=== PATIENT | male | born 1960 | race Two or more races ===

== ENCOUNTER 2024-04-07 16:31 | Inpatient (IN) | payer OTHER ==
[~2024-04-07] VITALS: Ht 177.8 cm; Wt 79.1 kg
[~2024-04-07 16:31] MED LIST: APIX2.5T PO; ARIP5TAB22 PO
--- NOTE | 2024-04-07 17:49 | DVH ---
CHEST RADIOGRAPH Indication: SOB Technique: Single frontal view of the chest was obtained Comparison: None Findings/ IMPRESSION: Left-sided cardiac device with intact leads. Vascular graft projects over the region of the right sub clavian. Mild cardiomegaly. Elevated right hemidiaphragm with small right-sided pleural effusion. No pneumothorax.
[2024-04-07 17:52] LABS: Basophils # (auto) 0.1 10 ^3/uL (0-0.2); Basophils % (auto) 3.6 % (0.0-2.0); Eosinophils # (auto) 0.2 10 ^3/uL (0-0.8); Eosinophils % (auto) 9.9 % (0.0-7.0); Hematocrit 32.6 % (41.0-53.0); Hemoglobin 10.3 g/dL (13.5-17.5); Lymphocytes # (auto) 0.4 10 ^3/uL (0.4-5.4); Lymphocytes % (auto) 16.1 % (10.0-50.0); Mean Corpuscular Hemoglobin 30.5 pg (28.0-32.0); Mean Corpuscular Hgb Conc. 31.7 g/dL (32.0-36.0); Mean Corpuscular Volume 96.4 fL (80.0-100.0); Monocytes # (auto) 0.2 10 ^3/uL (0-1.3); Monocytes % (auto) 9.5 % (0.0-12.0); Neutrophils # (auto) 1.5 10 ^3/uL (1.6-8.6); Neutrophils % (auto) 60.9 % (37.0-80.0); Nucleated Red Blood Cells % 0.1 %; Platelet Count (auto) 82 10^3/uL (140-450); Red Blood Cells 3.38 10^6/uL (4.5-5.90); Red Cell Distribution Width 18.5 % (11.8-14.3); White Blood Cell 2.4 10^3/uL (4.4-10.8)
[2024-04-07 18:07] LABS: Albumin 3.9 g/dL (3.2-4.8); Alkaline Phosphatase 88 U/L (46-116); Anion Gap 10 (5-15); Aspartate Aminotransferase 13 U/L (13-40); BUN/Creatinine Ratio 5.3 (10.0-20.0); Bilirubin, Total 1.2 mg/dL (0.2-1.0); Blood Urea Nitrogen 31 mg/dL (9-23); Carbon Dioxide 26 mmol/L (20-31); Chloride 98 mmol/L (98-107); Glucose 109 mg/dL (74-106); Sodium 134 mmol/L (136-145); Total Protein 6.5 g/dL (5.7-8.2)
[2024-04-07 18:10] LABS: Alanine Aminotransferase < 9 U/L (7-40); INR 1.38 (0.9-1.15); Partial Thromboplastin Time 29.6 SEC (24.5-34.5); Prothrombin Time 14.3 sec (9.3-11.8)
[2024-04-07 18:15] LABS: Anisocytosis Slight; Platelet Estimate Decreased
--- NOTE | 2024-04-07 19:03 | ED.PDOC ---
History of Present Illness HPI Comments Old male brought in by EMS. Patient states he had episode of rectal bleeding today. States he has been having some intermittent constipation for the last three or four days. Says he had a hard bowel movement but then when he wiped he noticed blood. He put his underwear and pants back on and noticed that it would still leaking blood. Patient was on blood thinner. Patient states he has been feeling short of breath for over one week but over the last three or four days shortness a breath has also become worsening. Patient states he did not feel well today so he did not go to dialysis. Chief Complaint: GI Bleed Time Seen by MD: 17:06 Primary Care Provider: pt does not know Reviewed Notes: Nurses Notes Allergies: Coded Allergies: NO KNOWN ALLERGIES (Unverified , 04/07/24) Information Source: Patient Mode of Arrival: EMS Past Medical History PAST MEDICAL HISTORY: CAD, CHF, ESRD Surgical History: Denies all surgeries Constitutional: reports: fatigue, weakness; denies: chills, diaphoresis, fever, malaise, sweats, others EENTM: denies: blurred vision, double vision, ear bleeding, ear discharge, ear drainage, ear pain, ear ringing, eye pain, eye redness, hearing loss, mouth pain, mouth swelling, nasal discharge, nose bleeding, nose congestion, nose pain, photophobia, tearing, throat pain, throat swelling, voice changes, others Respiratory: denies: cough, hemoptysis, orthopnea, SOB at rest, shortness of breath, SOB with excertion, stridor, wheezing, others Cardiovascular: reports: dizzy spells; denies: chest pain, diaphoresis, Dyspnea on exertion, edema, irregular heart beat, left arm pain, lightheadedness, palpitations, PND, syncope, others Gastrointestinal: reports: rectal bleeding; denies: abdomen distended, abdominal pain, blood streaked bowels, constipated, diarrhea, dysphagia, difficulty swallowing, hematemesis, melena, nausea, poor appetite, poor fluid intake, rectal pain, vomiting, others Genitourinary: denies: burning, dysuria, flank pain, frequency, hematuria, incontinence, penile discharge, penile sore, pain, testicle pain, testicle swelling, urgency, others Neurological: denies: dizziness, fainting, headache, left sided numbness, left sided weakness, numbness, paresthesia, pre-existing deficit, right sided numbness, right sided weakness, seizure, speech problems, tingling, tremors, weakness, others Musculoskeletal: denies: back pain, gout, joint pain, joint swelling, muscle pain, muscle stiffness, neck pain, others Integumetry: denies: bruises, change in color, change in hair/nails, dryness, laceration, lesions, lumps, rash, wounds, others Physical Exam General Appearance: Mild Distress, Normal HEENT: Normal ENT Inspection, Pharynx Normal, TMs Normal Neck: Full Range of Motion, Non-Tender, Normal, Normal Inspection Respiratory: Chest Non-Tender, Lungs Clear, No Accessory Muscle Use, No Respiratory Distress, Normal Breath Sounds Cardiovascular: No Edema, No JVD, No Murmur, No Gallop, Normal Peripheral Pulses, Regular Rate/Rhythm Breast Exam: Deferred Gastrointestinal: No Organomegaly, Non Tender, No Pulsatile Mass, Normal Bowel Sounds, Soft Genitalia: Deferred Pelvic: Deferred Rectal: Blood streaked stool, Hemorrhoids Extremities: No calf tenderness, Normal capillary refill, Normal inspection, Normal range of motion, Non-tender, No pedal edema Musculoskeletal : Apperance: Normal Neurologic: Alert, multiple coil winder II-XII nml as Tested, No Motor Deficits, Normal Affect, Normal Mood, No Sensory Deficits Cerebellar Function: Normal Reflexes: Normal Skin: Dry, Normal Color, Warm Lymphatic: No Adenopathy Was a procedure done? Was a procedure done?: No Differential Dx Considerations may include: Anemia, electrolyte imbalance, CHF exacerbation, UT, pneumonia, pulmonary edema, X-Ray, Labs, Meds, VS Vital Signs Date Time Temp Pulse Resp B/P (MAP) Pulse Ox O2 Delivery O2 Flow Rate FiO2 04/07/24 17:10 99.1 100 16 148/90 (109) 100 Lab Test 04/07/24 17:26 Range/Units White Blood Count 2.4 L 4.4-10.8 10^3/uL Red Blood Count 3.38 L 4.5-5.90 10^6/uL Hemoglobin 10.3 L 13.5-17.5 g/dL Hematocrit 32.6 L 41.0-53.0 % Mean Corpuscular Volume 96.4 80.0-100.0 fL Mean Corpuscular Hemoglobin 30.5 28.0-32.0 pg Mean Corpuscular Hemoglobin Concent 31.7 L 32.0-36.0 g/dL Red Cell Distribution Width 18.5 H 11.8-14.3 % Platelet Count 82 L 140-450 10^3/uL Mean Platelet Volume 7.8 6.9-10.8 fL Neutrophils (%) (Auto) 60.9 37.0-80.0 % Lymphocytes (%) (Auto) 16.1 10.0-50.0 % Monocytes (%) (Auto) 9.5 0.0-12.0 % Eosinophils (%) (Auto) 9.9 H 0.0-7.0 % Basophils (%) (Auto) 3.6 H 0.0-2.0 % Neutrophils # (Auto) 1.5 L 1.6-8.6 10 ^3/uL Lymphocytes # (Auto) 0.4 0.4-5.4 10 ^3/uL Monocytes # (Auto) 0.2 0-1.3 10 ^3/uL Eosinophils # (Auto) 0.2 0-0.8 10 ^3/uL Basophils # (Auto) 0.1 0-0.2 10 ^3/uL Nucleated Red Blood Cells 0.1 % Platelet Estimate Decreased Anisocytosis (manual) Slight Prothrombin Time 14.3 H 9.3-11.8 sec Prothrombin Time INR 1.38 H 0.9-1.15 Activated Partial Thromboplast Time 29.6 24.5-34.5 SEC Sodium Level 134 L 136-145 mmol/L Potassium Level 4.0 3.5-5.1 mmol/L Chloride Level 98 98-107 mmol/L Carbon Dioxide Level 26 20-31 mmol/L Anion Gap 10 5-15 Blood Urea Nitrogen 31 H 9-23 mg/dL Creatinine 5.90 H 0.700-1.30 mg/dL Glomerular Filtration Rate Calc 10 >90 mL/min BUN/Creatinine Ratio 5.3 L 10.0-20.0 Serum Glucose 109 H 74-106 mg/dL Calcium Level 11.0 H 8.7-10.4 mg/dL Total Bilirubin 1.2 H 0.2-1.0 mg/dL Aspartate Amino Transferase (AST) 13 13-40 U/L Alanine Aminotransferase (ALT) < 9 7-40 U/L Alkaline Phosphatase 88 46-116 U/L B-Type Natriuretic Peptide 2286.59 0-100 pg/mL Total Protein 6.5 5.7-8.2 g/dL Albumin 3.9 3.2-4.8 g/dL X-Ray, Labs, Meds, VS Comment Patient will be admitted for CHF exacerbation Recommend dialysis Recommend cardiology consult Patient was elevated BNP Time of 1ST Reevaluation: 19:02 Reevaluation 1ST: Unchanged Patient Education/Counseling: Diagnosis, Treatment Family Education/Counseling: Diagnosis Departure 1 Departure Time of Disposition: 19:01 Impression: Primary Impression: CHF exacerbation Qualified Codes: I50.23 - Acute on chronic systolic (congestive) heart failure Additional Impressions: Constipation Qualified Codes: K59.01 - Slow transit constipation Anal fissure End stage renal disease Electrolyte imbalance Disposition: ADMITTED INPATIENT Condition: Stable Critical Care Note Critical Care Time?: No Stability Stability form required: No Heart Score Heart Score: Heart Score Response (Comments) Value History N/A 0 EKG N/A 0 Age N/A 0 Risk Factors N/A 0 Troponin N/A 0 Total 0 BONIFACIO HASTINGS Apr 07, 2024 19:03
[2024-04-07] MEDS ORDERED: MORPHINE SULFATE INJ 2 MG/ml SYRG IV PRN (22:15)
[2024-04-07] MEDS ORDERED: ALBUTEROL SULF 2.5 MG/0.5ML(0.5%) NEB SOLN NEB PRN (22:15)
[2024-04-07] MEDS ORDERED: NITROGLYCERIN 0.4 MG SL TAB SL PRN (22:15)
[2024-04-07] MEDS ORDERED: ONDANSETRON HCL 4 MG/2 ML VIAL IV PRN (22:15)
[2024-04-08] VITALS (10 sets, daily range): BP systolic 106–192; BP diastolic 70–101; PULSE 60–89; RESP 16–20; TEMP 97–98.1; O2SAT 93–100
[2024-04-08 06:07] LABS: Albumin 3.4 g/dL (3.2-4.8); Alkaline Phosphatase 77 U/L (46-116); Anion Gap 11 (5-15); Aspartate Aminotransferase 12 U/L (13-40); BUN/Creatinine Ratio 5.1 (10.0-20.0); Bilirubin, Total 1.1 mg/dL (0.2-1.0); Blood Urea Nitrogen 32 mg/dL (9-23); Calcium 10.7 mg/dL (8.7-10.4); Carbon Dioxide 26 mmol/L (20-31); Chloride 98 mmol/L (98-107); Glucose 87 mg/dL (74-106); Potassium 3.4 mmol/L (3.5-5.1); Sodium 135 mmol/L (136-145)
[2024-04-08 06:08] LABS: Total Protein 5.8 g/dL (5.7-8.2)
[2024-04-08 06:18] LABS: Basophils # (auto) 0.1 10 ^3/uL (0-0.2); Basophils % (auto) 4.3 % (0.0-2.0); Eosinophils # (auto) 0.3 10 ^3/uL (0-0.8); Eosinophils % (auto) 13.1 % (0.0-7.0); Hematocrit 29.5 % (41.0-53.0); Hemoglobin 9.7 g/dL (13.5-17.5); Lymphocytes # (auto) 0.3 10 ^3/uL (0.4-5.4); Lymphocytes % (auto) 16.9 % (10.0-50.0); Mean Corpuscular Hemoglobin 31.6 pg (28.0-32.0); Mean Corpuscular Hgb Conc. 32.9 g/dL (32.0-36.0); Mean Corpuscular Volume 96.2 fL (80.0-100.0); Monocytes # (auto) 0.2 10 ^3/uL (0-1.3); Monocytes % (auto) 11.4 % (0.0-12.0); Neutrophils # (auto) 1.1 10 ^3/uL (1.6-8.6); Neutrophils % (auto) 54.3 % (37.0-80.0); Nucleated Red Blood Cells % 0.4 %; Platelet Count (auto) 78 10^3/uL (140-450); Red Blood Cells 3.06 10^6/uL (4.5-5.90)
[2024-04-08 06:19] LABS: Alanine Aminotransferase < 9 U/L (7-40)
--- NOTE | 2024-04-08 06:20 | DVHHP2 ---
History of Present Illness Reason for Visit: Shortness for breath History of Present Illness 64-year-old male presents for evaluation of shortness for breath. Patient endorses generalized weakness and shortness for breath over the past three days. He was not able attend his dialysis session yesterday due to the weakness. He also reports constipation for three days. He reports noticing small amount of blood yesterday as after having bowel movement. Reports only syncopal episode. Denies chest pain or palpitations. No other acute complaints reported. Past Medical History End-stage renal disease, congestive heart failure, CAD, hypertension Past Surgical History Pacemaker Family History Noncontributory Smoke: No ALCOHOL: none Drugs: None Lives: with Family Review of Systems Review of Systems Review of systems are currently negative otherwise addressed HPI. Allergies: Coded Allergies: NO KNOWN ALLERGIES (Unverified , 04/07/24) Medications Current Medications Medications Dose Ordered Sig/Colleen Route Start Time Stop Time Status Last Admin Dose Admin Ondansetron HCl 4 mg Q4HP PRN IV 04/07/24 22:15 Acetaminophen 650 mg Q6HP PRN PO 04/07/24 22:15 Nitroglycerin 0.4 mg Q5MINP PRN SL 04/07/24 22:15 Morphine Sulfate 2 mg Q30M PRN IV 04/07/24 22:15 Metoprolol Tartrate 25 mg BID PO 04/08/24 10:00 Aspirin 162 mg DAILY PO 04/08/24 10:00 Atorvastatin Calcium 40 mg HS PO 04/08/24 22:00 Amiodarone HCl 200 mg DAILY PO 04/08/24 10:00 Sacubitril/ Valsartan 1 tab BID PO 04/08/24 10:00 Sevelamer HCl 800 mg TIDWM PO 04/08/24 08:00 Albuterol 2.5 mg Q6HPRN PRN NEB 04/07/24 22:15 Exam Vital Signs Vital Signs Date Time Temp Pulse Resp B/P (MAP) Pulse Ox O2 Delivery O2 Flow Rate FiO2 04/08/24 05:00 97.1 85 18 155/96 (115) 100 97.1 04/08/24 01:58 Nasal Cannula* 2 28 Exam Gen: 64-year-old in mild distress Skin: Warm, dry, normal color and texture, no rash. HEENT: Normocephalic atraumatic, mucous membranes moist and pink. Neck: Cervical and supraclavicular nodes normal without enlargement, trachea is midline, thyroid gland is normal without masses. Pulmonary: Clear to auscultation and percussion bilaterally. Cardiac: Regular rate and rhythm. No murmur Abdomen: Soft, nontender, nondistended, bowel sounds present all 4 quadrants, no guarding, no rigidity, no organomegaly. Extremities: No cyanosis, clubbing, no edema Neuro: Cranial nerves II through XII grossly intact, normal affect and speech, no focal motor deficits. Labs/Xrays ORDERING PHYSICIAN: BONIFACIO HASTINGS PROCEDURE(s): CXRP - CHEST PORTABLE REASON: SOB ORDER NUMBER(s): [id number], ACCESSION NUMBER(s): [id number] CHEST RADIOGRAPH Indication: SOB Technique: Single frontal view of the chest was obtained Comparison: None Findings/ IMPRESSION: Left-sided cardiac device with intact leads. Vascular graft projects over the region of the right subclavian. Mild cardiomegaly. Elevated right hemidiaphragm with small right-sided pleural effusion. No pneumothorax. Labs Test 04/08/24 05:17 04/07/24 21:32 04/07/24 17:26 Range/Units Troponin I High Sensitivity 68 *H </=54 ng/L Eosinophils (%) (Auto) 9.9 H 0.0-7.0 % Eosinophils # (Auto) 0.2 0-0.8 10 ^3/uL Basophils # (Auto) 0.1 0-0.2 10 ^3/uL Nucleated Red Blood Cells 0.1 % Platelet Estimate Decreased Anisocytosis (manual) Slight Prothrombin Time 14.3 H 9.3-11.8 sec Prothrombin Time INR 1.38 H 0.9-1.15 Activated Partial Thromboplast Time 29.6 24.5-34.5 SEC B-Type Natriuretic Peptide 2286.59 0-100 pg/mL Assessment/Plan Assessment/Plan Assessment End-stage renal disease dialysis dependent Congestive heart failure ? Fluid overload Anemia of chronic disease Secondary coagulopathy Anal fissure Plan Admit the patient to telemetry to the hospitalist Nephrology consultation Echocardiogram pending Resume home medications Continue treatment per orders. Plan discussed with: Patient My Orders Orders - FLORIAN,FELIPE AGACNP Procedure Category Date Status Time *[facility]. [facility] CONS 04/07/24 Transmitted -[place] 22:02 Admit ADMIT 04/07/24 Transmitted 22:02 Renal DIET 04/08/24 Transmitted Standard(2gna,3gk,Lopho) Breakfast Ondansetron Hcl PHA 04/07/24 In Process (Zofran) 22:15 Complete Blood Count LAB 04/08/24 In Process 04:00 Comprehensive LAB 04/08/24 In Process Metabolic Panel 04:00 Cardiac DIET 04/08/24 Transmitted Diet-2gna,Lofat,Lochol Breakfast Echo 2d Mode Cardiac US 04/07/24 Logged DOP 22:02 Condition: Fair LETICIA 04/07/24 In Process 22:02 Acetaminophen Tablet PHA 04/07/24 In Process (Tylenol Tablet) 22:15 Bedrest With Bathroom LETICIA 04/07/24 In Process Privileg 22:02 Nitroglycerin PHA 04/07/24 In Process Sublingual (Ntrostat 22:15 Morphine Sulfate PHA 04/07/24 In Process Injection 22:15 Stat Ekg For Chest LETICIA 04/07/24 In Process Pain 22:02 Notify Md Of Changes LETICIA 04/07/24 In Process From Base 22:02 Supervisor Transcribing Oper[employer] For [facility] 04/07/24 In Process 24 Hours 22:02 Emergency Dysrhythmia LETICIA 04/07/24 In Process Protocol 22:02 Rhythm Strips Once LETICIA 04/07/24 In Process Every Shift 22:02 Oxygen By Nasal RT 04/07/24 Transmitted Cannula 22:02 Metoprolol Tartrate PHA 04/08/24 In Process Tablet (Lopressor Ta 10:00 Aspirin Tablet PHA 04/08/24 In Process 10:00 Atorvastatin (Lipitor) PHA 04/08/24 In Process 22:00 Amiodarone Tablet PHA 04/08/24 In Process (Cordarone Tablet) 10:00 Sacubitril-Valsartan PHA 04/08/24 In Process (Entresto 24-26 Mg 10:00 Sevelamer (Renagel) PHA 04/08/24 In Process 08:00 Stool Occult Blood LAB 04/07/24 Logged 22:02 Albuterol Medneb PHA 04/07/24 In Process (Ventolin Medneb) 22:15 Furosemide Injection PHA 04/08/24 Logged (Lasix Injection) 06:15 Date of Service: Apr 07, 2024 Billing Provider: BELTRAN FLORIAN Common Visit Codes: [id number] INP/OBS CARE (HIGH) BELTRAN FLORIAN Apr 08, 2024 06:20
[2024-04-08] MEDS: FUROSEMIDE 100 MG/10ML VIAL IV ONE (06:28)
[2024-04-08] MEDS: SACUBITRIL-VALSARTAN 24mg/26mg TAB PO SCH (08:58)
[2024-04-08] MEDS: METOPROLOL TARTRATE 25 MG TAB PO SCH (08:59)
[2024-04-08] MEDS: AMIODARONE HCL 200 MG TAB PO SCH (09:00)
[2024-04-08] MEDS: ASPirin 81 mg TAB PO SCH (09:00)
[2024-04-08] MEDS: SEVELAMER 800 MG TAB PO SCH (09:01)
[2024-04-08] MEDS: DOCUSATE SOD 100 MG CAP PO SCH (09:06)
--- NOTE | 2024-04-08 13:10 | DVHPN2 ---
Subjective No more rectal bleed; no recurrence of syncope; still with SOB Reviewed: Care Plan, H&P, Labs, Medications, Previous Orders, Radiology, Other (Consultations) Changes from previous H/P or p: Changes Objective Vitals Vital Signs Date Time Temp Pulse Resp B/P (MAP) Pulse Ox O2 Delivery O2 Flow Rate FiO2 04/08/24 12:45 97.2 72 16 138/85 (102) 100 97.2 04/08/24 08:00 Nasal Cannula* 2 28 Intake/Output Intake and Output 04/08/24 07:00 Intake Total 0 ml Output Total 0 ml Balance 0 ml Intake Oral 0 ml Output Urine Total 0 ml Exam Nursing staff as a concrete paver General Appearance: Alert, Oriented X3, Cooperative, mild distress HEENT: Other (Pale) Lungs: Other (Decreased air entry bilateral) Chest/Breasts: Other (Pacemaker in place) Cardiovascular: Regular rate, Normal S1, Normal S2 Abdomen: Normal bowel sounds, Soft, No tenderness Rectal: Other (Melena with no fresh blood) Extremities: Other (Right arm AV fistula with good bruit/thrill) Neuro: Normal speech, Cranial nerves 3-12 NL Psych/Mental Status: Mental status NL, Mood NL Medications Current Medications Medications Dose Ordered Sig/Colleen Route Start Time Stop Time Status Last Admin Dose Admin Ondansetron HCl 4 mg Q4HP PRN IV 04/07/24 22:15 Acetaminophen 650 mg Q6HP PRN PO 04/07/24 22:15 Nitroglycerin 0.4 mg Q5MINP PRN SL 04/07/24 22:15 Morphine Sulfate 2 mg Q30M PRN IV 04/07/24 22:15 Metoprolol Tartrate 25 mg BID PO 04/08/24 10:00 04/08/24 08:59 25 MG Aspirin 162 mg DAILY PO 04/08/24 10:00 04/08/24 09:00 162 MG Atorvastatin Calcium 40 mg HS PO 04/08/24 22:00 Amiodarone HCl 200 mg DAILY PO 04/08/24 10:00 04/08/24 09:00 200 MG Sacubitril/ Valsartan 1 tab BID PO 04/08/24 10:00 04/08/24 08:58 1 TAB Sevelamer HCl 800 mg TIDWM PO 04/08/24 08:00 04/08/24 12:42 800 MG Albuterol 2.5 mg Q6HPRN PRN NEB 04/07/24 22:15 Docusate Sodium 100 mg BID PO 04/08/24 10:00 Pantoprazole Sodium 40 mg DAILY@0600 PO 04/09/24 06:00 Laboratory Results Laboratory Tests 04/08/24 05:17 Chemistry Test 04/07/24 17:26 04/08/24 05:17 Albumin 3.9 g/dL (3.2-4.8) 3.4 g/dL (3.2-4.8) Calcium Level 11.0 mg/dL (8.7-10.4) H 10.7 mg/dL (8.7-10.4) H Total Protein 6.5 g/dL (5.7-8.2) 5.8 g/dL (5.7-8.2) Phosphorus Level 5.3 mg/dL (2.4-5.1) H Coagulation Test 04/07/24 17:26 Prothrombin Time 14.3 sec (9.3-11.8) H Prothrombin Time INR 1.38 (0.9-1.15) H Activated Partial Thromboplast Time 29.6 SEC (24.5-34.5) Cardiac Markers Test 04/07/24 17:26 B-Type Natriuretic Peptide 2286.59 pg/mL (0-100) LFT Test 04/07/24 17:26 04/08/24 05:17 Alanine Aminotransferase (ALT) < 9 U/L (7-40) < 9 U/L (7-40) Alkaline Phosphatase 88 U/L (46-116) 77 U/L (46-116) Aspartate Amino Transferase (AST) 13 U/L (13-40) 12 U/L (13-40) L Total Bilirubin 1.2 mg/dL (0.2-1.0) H 1.1 mg/dL (0.2-1.0) H Labs and/or images reviewed: Labs reviewed by me, Image(s) reviewed by me Assessment/Plan Assessment/Plan A 64-year-old male patient; with multiple comorbidities; presented to the emergency department with rectal bleed and syncope associated with SOB. #Acute GI bleed with fresh blood per rectum and melena; stopped all antiplatelet and anticoagulation; consulted GI; IV PPIs; continue monitoring #Syncope in the setting of GI bleed; fall precautions; ordered orthostatic vital signs; cardiology consulted; continue monitoring #Acute hypoxic respiratory failure due to pulmonary edema secondary to acute on chronic congestive diastolic and systolic heart failure; telemetry; continue oxygen therapy as needed; continue IV diuresis; cardiology is following; reviewed echocardiogram; continue monitoring #Acute on chronic congestive diastolic and systolic heart failure; management as above; continue monitoring #NSTEMI type 2; demand ischemia; details as above; continue monitoring #CAD s/p PCIs x3 RASHEEDA; holding antiplatelets due to GI bleed; continue statin; telemetry; no chest pain; cardiology is following; continue monitoring #Paroxysmal atrial fibrillation; holding apixaban due to GI bleed; continue amiodarone; telemetry; cardiology is following; continue monitoring #S/P permanent pacemaker ([employer]elergor[employer], 2015); severe pulmonary hypertension; s/p cardiac ablations x 3 and right subclavian graft; telemetry; cardiology is following; continue monitoring #End-stage renal disease on hemodialysis Tuesdays, , Saturdays via right upper extremity AV fistula; nephrology consulted; continue monitoring #Electrolytes imbalance; to correct as indicated; nephrology consulted; continue monitoring #Pancytopenia; unclear etiology could be related to end-stage renal disease versus treatment of prostate cancer; platelet count above [id number] so no platelet transfusion at this time; absolute neutrophilic count is above 1000 so no droplet precaution at this time; continue monitoring #Anemia in the setting of end-stage renal disease and GI bleed; to transfuse blood when hemoglobin less than eight; continue monitoring #Overweight; counseled the patient about importance of adopting healthy lifestyle with diet and exercise in order to lose weight; continue monitoring #Prostate cancer s/p chemotherapy and radiation this year; ordered PSA; continue monitoring Goals of care discussed for 20 minutes; full code Critical care time of 66 minutes This medical document was created using an electronic medical record system with computerized dictation system. Although this document has been carefully reviewed, there might still be some phonetic and typographical errors. These areas are purely typographical due to imperfections of the software programs, and do not reflect any compromise in the patient's medical care. Plan discussed with: Patient, Other (Nurse) My Orders Orders - CAROLINE HILLS MD Procedure Category Date Status Time * Gi Dvh Supervisor [employer] CONS 04/08/24 Transmitted 11:44 * Cardiology Consult CONS 04/08/24 Transmitted 11:44 Parathyroid Hormone LAB 04/08/24 In Process Intact 05:17 Date of Service: Apr 08, 2024 Billing Provider: CAROLINE HILLS MD Common Visit Codes: [id number] CARE 30-74 MIN (66 minutes) Secondary Visit Codes: [id number] CARE PLAN 30 MINUTES (20 minutes) CAROLINE HILLS MD Apr 08, 2024 13:10
--- NOTE | 2024-04-08 13:31 | DVHCONRES ---
Date Seen: Apr 08, 2024 Resident Creating Document: ROMAINE MCGOVERN RESIDENT Referring Physician Felipe WORKMAN Reason for Consultation ESRD History of Present Illness Patient is 51-year-old male with past medical history of hypertension, coronary artery disease, CHF, ESRD, anemia of chronic disease, atrial fibrillation who presented to hospital with a chief complaint of shortness of breath and genera lized weakness for past three days, as per patient patient was not able to get done dialysis due to generalized weakness and possible syncopal episode. Patient also complaining of bleeding in stool that also prompted visit to hospital. Nephrology consultation was done for management of end-stage renal disease. On further evaluation patient's kidney function showed elevated BUN at 32, creatinine 6.25, troponin mildly elevated, BNP high at 2286. X-ray showed pulmonary vascular congestion and presence of AICD. patient also informed that he is on blood thinner Eliquis and Plavix that prompted to possible lower GI bleed. Patient denying any other complaints at this point. Past Medical History hypertension, coronary artery disease, CHF, ESRD, anemia of chronic disease, atrial fibrillation Past Surgical History AICD Family History Not pertinent Social History As per HPI Allergies: Coded Allergies: NO KNOWN ALLERGIES (Unverified , 04/07/24) Current Medications Current Medications Medications (Trade) Dose Ordered Sig/Colleen Route PRN Reason Start Time Stop Time Status Last Admin Ondansetron HCl (Zofran) 4 mg Q4HP PRN IV NAUSEA / VOMITING 04/07/24 22:15 Acetaminophen (Tylenol Tablet) 650 mg Q6HP PRN PO PAIN SCALE 1-3 OR TEMP>100.4 04/07/24 22:15 Nitroglycerin (Ntrostat Sublingual) 0.4 mg Q5MINP PRN SL FOR CHEST PAIN 04/07/24 22:15 Morphine Sulfate 2 mg Q30M PRN IV FOR CHEST PAIN 04/07/24 22:15 Metoprolol Tartrate (Lopressor Tablet) 25 mg BID PO 04/08/24 10:00 04/08/24 08:59 Aspirin 162 mg DAILY PO 04/08/24 10:00 04/08/24 09:00 Atorvastatin Calcium (Lipitor) 40 mg HS PO 04/08/24 22:00 Amiodarone HCl (Cordarone Tablet) 200 mg DAILY PO 04/08/24 10:00 04/08/24 09:00 Sacubitril/ Valsartan (Entresto 24-26 Mg tab) 1 tab BID PO 04/08/24 10:00 04/08/24 08:58 Sevelamer HCl (Renagel) 800 mg TIDWM PO 04/08/24 08:00 04/08/24 12:42 Albuterol (Ventolin Medneb) 2.5 mg Q6HPRN PRN NEB SHORTNESS OF BREATH 04/07/24 22:15 Docusate Sodium (Colace Capsule) 100 mg BID PO 04/08/24 10:00 Pantoprazole Sodium (Protonix Tablet) 40 mg DAILY@0600 PO 04/09/24 06:00 Review of Systems Eyes: No Pain, No Vision change, No Conjunctivae inflammation, No Eyelid inflammation, No Other, No Redness ENT: No Ear pain, No Ear discharge, No Nose pain, No Nose discharge, No Nose congestion, No Mouth pain, No Mouth swelling, No Throat pain, No Throat swelling, No Other Cardiovascular: No Chest Pain, No Palpitations, No Orthopnea, No Paroxysmal Noc. Dyspnea, No Edema, No Lt Headedness, No Other Respiratory: No Cough, No Dry, No Shortness of breath, No SOB with excertion, No Wheezing, No Hemoptysis, No Pleuritic Pain, No Sputum, No Other Gastrointestinal: No Nausea, No Vomiting, No Abdominal Pain, No Diarrhea, No Constipation, No Melena, No Hematochezia, No Other Genitourinary: No Dysuria, No Frequency, No Incontinence, No Hematuria, No Retention, No Other Musculoskeletal: No other, No neck pain, No shoulder pain, No arm pain, No back pain, No hand pain, No leg pain, No foot pain Skin: No Rash, No Lesions, No Jaundice, No Bruising, No Other Vital Signs Vital Signs Date Time Temp Pulse Resp B/P (MAP) Pulse Ox O2 Delivery O2 Flow Rate FiO2 04/08/24 12:45 97.2 72 16 138/85 (102) 100 97.2 04/08/24 08:00 Nasal Cannula* 2 28 Physical Exam General Appearance: Cooperative. Well developed. Well nourished. NAD Head Exam: Normal inspection Neck Exam: Normal inspection. Non-tender. Normal alignment Pulmonary/Respiratory: Chest non-tender. Clear bilateral breath sounds Cardiovascular/Chest: Regular rate and rhythm. No murmurs. No JVD. Peripheral Pulses: 2+ Radial (R). 2+ Radial (L). 2+ Pedal (R). 2+ Pedal (L) Abdominal Exam: Normal bowel sounds. Soft. Nontender. No hepatospenomegaly. No masses Ankle Exam: Negative ankle edema Lower extremities: Negative lower extremity edema Neuro/Mental Status: A&O x4. Coherent Thoughts/Psych: Normal thought pattern. Appropriate mood and affect. Good judgement and insight Appearance: In no acute distress Skin Exam: Normal inspection. Normal color. Warm. Dry Labs/Diagnostic Data Labs Test 04/08/24 05:17 04/07/24 21:32 04/07/24 17:26 Range/Units White Blood Count 2.0 L 4.4-10.8 10^3/uL Red Blood Count 3.06 L 4.5-5.90 10^6/uL Hemoglobin 9.7 L 13.5-17.5 g/dL Hematocrit 29.5 L 41.0-53.0 % Mean Corpuscular Volume 96.2 80.0-100.0 fL Mean Corpuscular Hemoglobin 31.6 28.0-32.0 pg Mean Corpuscular Hemoglobin Concent 32.9 32.0-36.0 g/dL Red Cell Distribution Width 18.0 H 11.8-14.3 % Platelet Count 78 L 140-450 10^3/uL Mean Platelet Volume 7.7 6.9-10.8 fL Neutrophils (%) (Auto) 54.3 37.0-80.0 % Lymphocytes (%) (Auto) 16.9 10.0-50.0 % Monocytes (%) (Auto) 11.4 0.0-12.0 % Eosinophils (%) (Auto) 13.1 H 0.0-7.0 % Basophils (%) (Auto) 4.3 H 0.0-2.0 % Neutrophils # (Auto) 1.1 L 1.6-8.6 10 ^3/uL Lymphocytes # (Auto) 0.3 L 0.4-5.4 10 ^3/uL Monocytes # (Auto) 0.2 0-1.3 10 ^3/uL Eosinophils # (Auto) 0.3 0-0.8 10 ^3/uL Basophils # (Auto) 0.1 0-0.2 10 ^3/uL Nucleated Red Blood Cells 0.4 % Sodium Level 135 L 136-145 mmol/L Potassium Level 3.4 L 3.5-5.1 mmol/L Chloride Level 98 98-107 mmol/L Carbon Dioxide Level 26 20-31 mmol/L Anion Gap 11 5-15 Blood Urea Nitrogen 32 H 9-23 mg/dL Creatinine 6.25 H 0.700-1.30 mg/dL Glomerular Filtration Rate Calc 9 >90 mL/min BUN/Creatinine Ratio 5.1 L 10.0-20.0 Serum Glucose 87 74-106 mg/dL Calcium Level 10.7 H 8.7-10.4 mg/dL Phosphorus Level 5.3 H 2.4-5.1 mg/dL Total Bilirubin 1.1 H 0.2-1.0 mg/dL Aspartate Amino Transferase (AST) 12 L 13-40 U/L Alanine Aminotransferase (ALT) < 9 7-40 U/L Alkaline Phosphatase 77 46-116 U/L Total Protein 5.8 5.7-8.2 g/dL Albumin 3.4 3.2-4.8 g/dL Troponin I High Sensitivity 68 *H </=54 ng/L Platelet Estimate Decreased Anisocytosis (manual) Slight Prothrombin Time 14.3 H 9.3-11.8 sec Prothrombin Time INR 1.38 H 0.9-1.15 Activated Partial Thromboplast Time 29.6 24.5-34.5 SEC B-Type Natriuretic Peptide 2286.59 0-100 pg/mL Assessment ESRD on hemodialysis, out of the area Acute on chronic diastolic versus systolic CHF Hypertension Anemia of chronic disease ? Lower GI bleed Coronary artery disease Plan/recommendation -Plan for hemodialysis today -Regular Monitoring: Ensure frequent monitoring of blood pressure, electrolyte levels, and fluid balance. -renal diet -continue phosphate binder:Sevelamer -pending phosphorus level, 24 hydroxy vitamin-D, parathyroid hormone level. -social service consultation for outpatient dialysis chair time at [facility] dialysis with Check Hep B s Ag -follow with Nephrology outpatient clinic in two weeks with Dr. Aiken -rest of the plan per primary care team Patient seen and examined by myself in rounds today with the medicine resident, I agree with the assessment and plan documented in the consult note Plan discussed with: Patient, Other (RN) ROMAINE MCGOVERN Apr 08, 2024 13:31 BRITTANY AIKEN MD Apr 08, 2024 13:34
--- NOTE | 2024-04-08 13:50 | DVHSR ---
APPROVED REPORT EXAM: Two-dimensional and M-mode echocardiogram with Doppler and color Doppler. Blood Pressure: 104/67 mmHg INDICATION EF Surgery/Intervention Pacemaker: RISK FACTORS Height: 70, Weight: 174 DIMENSIONS LVDd5.1 (3.8-5.7cm)LA (2D)4.8 (1.9-4.0cm)Aortic Root4.4 (2.0-3.7cm) LVDs4.6 (2.5-4.0cm)LA (MM) (1.9-4.0cm)Aortic Cusp Exc2.0 (1.5-2.0cm) EF (%) 22.0 (55-70%)Rt. Atrium6.7 (1.9-4.0cm)Asc. Aorta cm Mitral Valve MitralMitral Stenosis E wave0.84m/sMV Mean GR.mmHg A wavem/sMV Peak GR.34mmHg E/A ratio0.02D MVAcm2 DECEL TimemsPRESS 1/2 [id number] IVRTmsDop MVA4.94cm2 Aortic Valve Aortic ValveAortic Stenosis V10.64m/Marcelino Mean GR.3mmHg V21.11m/Marcelino Peak GR.5mmHg LVOT Diameter2.5 (1.8-2.4cm)Doppler AVA2.83cm2 AI P 1/2 Xtbe236.27ms Tricuspid Valve TR Velocity3.22m/s [id number] Conclusion Severely dilated left ventricle. Severely reduced left ventricular systolic function estimated eject ion fraction 20%. There is global wall akinesia. There is a grade 1 diastolic dysfunction. Severely dilated right ventricle. Severely reduced right ventricular systolic function. Severely el evated right ventricular systolic [id number] mm of mercury. Severely dilated right and left atria. There is jmbw-aw-seiukcre mitral valve regurgitation. There is lmpj-wy-iuqfumjg tricuspid regurgitation. The aortic valve is mildly thickened and sclerotic, there is a trace of aortic valve regurgitation The pulmonary is grossly normal. No pericardial effusion.
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
[2024-04-08 14:09] LABS: Urine Bacteria None Seen /hpf (None Seen)
[2024-04-08 14:17] LABS: Urine Blood 1+ /uL (Negative); Urine Clarity Clear (Clear); Urine Color Light-Yellow (Yellow); Urine Protein, UAD 1+ (Negative); Urine Specific Gravity 1.008 (1.001-1.035); Urine Urobilinogen Normal (Negative); Urine WBC 5 /hpf (0 - 3); Urine pH 6.5 (5.0-9.0)
[2024-04-08] MEDS: POTASSIUM CHL 20 Meq TABLET PO ONE (14:58)
[2024-04-08] MEDS: FUROSEMIDE 20 MG/2 ML VIAL IV SCH (17:42)
[2024-04-09] VITALS (10 sets, daily range): BP systolic 111–131; BP diastolic 69–80; PULSE 62–76; RESP 16–20; TEMP 97.4–98.3; O2SAT 92–100
[2024-04-09] MEDS: ATORVASTATIN 20 MG TAB PO SCH (01:31)
[2024-04-09] MEDS: EPOETIN ALFA-EPBX 10,000 UNIT/1ML VIAL SC ONE (01:31)
[2024-04-09] MEDS: PANTOPRAZOLE 40 MG TAB PO SCH (06:05)
[2024-04-09 07:37] LABS: Basophils # (auto) 0.1 10 ^3/uL (0-0.2); Basophils % (auto) 3.3 % (0.0-2.0); Eosinophils # (auto) 0.3 10 ^3/uL (0-0.8); Eosinophils % (auto) 10.1 % (0.0-7.0); Hematocrit 33.8 % (41.0-53.0); Hemoglobin 10.7 g/dL (13.5-17.5); Lymphocytes # (auto) 0.3 10 ^3/uL (0.4-5.4); Lymphocytes % (auto) 10.9 % (10.0-50.0); Mean Corpuscular Hemoglobin 31.4 pg (28.0-32.0); Mean Corpuscular Hgb Conc. 31.8 g/dL (32.0-36.0); Mean Corpuscular Volume 98.8 fL (80.0-100.0); Monocytes # (auto) 0.3 10 ^3/uL (0-1.3); Monocytes % (auto) 10.6 % (0.0-12.0); Neutrophils # (auto) 1.6 10 ^3/uL (1.6-8.6); Neutrophils % (auto) 65.1 % (37.0-80.0); Nucleated Red Blood Cells % 0.2 %; Platelet Count (auto) 67 10^3/uL (140-450); Red Blood Cells 3.42 10^6/uL (4.5-5.90); Red Cell Distribution Width 19.8 % (11.8-14.3); White Blood Cell 2.5 10^3/uL (4.4-10.8)
[2024-04-09 07:53] LABS: Alkaline Phosphatase 81 U/L (46-116); Anion Gap 9 (5-15); Aspartate Aminotransferase 14 U/L (13-40); BUN/Creatinine Ratio 3.5 (10.0-20.0); Blood Urea Nitrogen 15 mg/dL (9-23); Calcium 9.6 mg/dL (8.7-10.4); Carbon Dioxide 28 mmol/L (20-31); Chloride 100 mmol/L (98-107); Glucose 89 mg/dL (74-106); Magnesium 2.3 mg/dL (1.6-2.6); Potassium 3.6 mmol/L (3.5-5.1); Sodium 137 mmol/L (136-145)
[2024-04-09 07:54] LABS: Albumin 3.2 g/dL (3.2-4.8)
[2024-04-09 08:00] LABS: Alanine Aminotransferase < 9 U/L (7-40); Total Protein 5.6 g/dL (5.7-8.2)
[2024-04-09] MEDS: PANTOPRAZOLE 40 MG/10 ML VIAL INJ IV SCH (09:23)
--- NOTE | 2024-04-09 12:37 | DVHPN2 ---
Progress Note Date Seen: Apr 09, 2024 Medical Necessity Reason Pt with a Central, PICC or Fol: No Subjective Patient reports: No new complaints, Feels better Review of Systems: HEENT:Normal, CVS:Normal, RESPIRATORY:Normal, GI:Normal, :Normal, MSK:Normal, NEURO:Normal Objective vital signs Vital Sign Date Time Temp Pulse Resp B/P (MAP) Pulse Ox O2 Delivery O2 Flow Rate FiO2 04/09/24 09:10 92 Nasal Cannula 2.0 04/09/24 09:10 28 04/09/24 08:58 97.8 76 17 119/72 (88) 97.8 Total Intake and Output 04/08/24 04/08/24 04/09/24 15:00 23:00 07:00 Intake Total 690 ml 175 ml Output Total 400 ml Balance 690 ml -225 ml medications Current Medications Medications Dose Ordered Sig/Colleen Route Start Time Stop Time Status Last Admin Dose Admin Ondansetron HCl 4 mg Q4HP PRN IV 04/07/24 22:15 Acetaminophen 650 mg Q6HP PRN PO 04/07/24 22:15 Nitroglycerin 0.4 mg Q5MINP PRN SL 04/07/24 22:15 Morphine Sulfate 2 mg Q30M PRN IV 04/07/24 22:15 Metoprolol Tartrate 25 mg BID PO 04/08/24 10:00 04/08/24 08:59 25 MG Atorvastatin Calcium 40 mg HS PO 04/08/24 22:00 04/09/24 01:31 40 MG Amiodarone HCl 200 mg DAILY PO 04/08/24 10:00 04/09/24 09:23 200 MG Sacubitril/ Valsartan 1 tab BID PO 04/08/24 10:00 04/09/24 09:23 1 TAB Sevelamer HCl 800 mg TIDWM PO 04/08/24 08:00 04/09/24 12:20 800 MG Albuterol 2.5 mg Q6HPRN PRN NEB 04/07/24 22:15 Docusate Sodium 100 mg BID PO 04/08/24 10:00 04/09/24 09:23 100 MG Furosemide 20 mg BIDD IV 04/08/24 18:00 04/09/24 06:06 20 MG Pantoprazole Sodium 40 mg BID IV 04/09/24 10:00 04/09/24 09:23 40 MG Examination: GENERAL:Normal, HEENT:Normal, NECK:Normal, LUNGS:Abnormal, CVS:Normal, ABDOMEN:Normal, MSK:Abnormal, SKIN:Normal, NEURO:Normal, :Normal laboratory and microbiology Laboratory Tests 04/09/24 06:55 Test 04/09/24 06:55 Range/Units Serum Glucose 89 74-106 mg/dL Problem List/Assessment/Plan Problem List/Assessment/Plan ESRD on hemodialysis, out of the area Acute on chronic diastolic versus systolic CHF Hypertension Anemia of chronic disease ? Lower GI bleed Recommendations Hemodialysis today also for volume removal Patient missed dialysis sessions Outpatient chair time with [facility] dialysis Plan discussed with: Patient ADITYA DUNCAN MD Apr 09, 2024 12:37
--- NOTE | 2024-04-09 12:37 | DVHPN2 ---
Subjective No more rectal bleed; no recurrence of syncope; still with SOB Reviewed: Care Plan, H&P, Labs, Medications, Previous Orders, Radiology, Other (Consultations) Changes from previous H/P or p: No Changes Objective Vitals Vital Signs Date Time Temp Pulse Resp B/P (MAP) Pulse Ox O2 Delivery O2 Flow Rate FiO2 04/09/24 09:10 92 Nasal Cannula 2.0 04/09/24 09:10 28 04/09/24 08:58 97.8 76 17 119/72 (88) 97.8 Intake/Output Intake and Output 04/09/24 07:00 Intake Total 865 ml Output Total 400 ml Balance 465 ml Intake Oral 865 ml Output Urine Total 400 ml # Voids 3 General Appearance: Alert, Oriented X3, Cooperative, mild distress HEENT: Other (Pale) Lungs: Other (Decreased air entry bilateral) Chest/Breasts: Other (Pacemaker in place) Cardiovascular: Regular rate, Normal S1, Normal S2 Abdomen: Normal bowel sounds, Soft, No tenderness Extremities: Other (Right arm AV fistula with good bruit/thrill) Neuro: Normal speech, Cranial nerves 3-12 NL Psych/Mental Status: Mental status NL, Mood NL Medications Current Medications Medications Dose Ordered Sig/Colleen Route Start Time Stop Time Status Last Admin Dose Admin Ondansetron HCl 4 mg Q4HP PRN IV 04/07/24 22:15 Acetaminophen 650 mg Q6HP PRN PO 04/07/24 22:15 Nitroglycerin 0.4 mg Q5MINP PRN SL 04/07/24 22:15 Morphine Sulfate 2 mg Q30M PRN IV 04/07/24 22:15 Metoprolol Tartrate 25 mg BID PO 04/08/24 10:00 04/08/24 08:59 25 MG Atorvastatin Calcium 40 mg HS PO 04/08/24 22:00 04/09/24 01:31 40 MG Amiodarone HCl 200 mg DAILY PO 04/08/24 10:00 04/09/24 09:23 200 MG Sacubitril/ Valsartan 1 tab BID PO 04/08/24 10:00 04/09/24 09:23 1 TAB Sevelamer HCl 800 mg TIDWM PO 04/08/24 08:00 04/09/24 12:20 800 MG Albuterol 2.5 mg Q6HPRN PRN NEB 04/07/24 22:15 Docusate Sodium 100 mg BID PO 04/08/24 10:00 04/09/24 09:23 100 MG Furosemide 20 mg BIDD IV 04/08/24 18:00 04/09/24 06:06 20 MG Pantoprazole Sodium 40 mg BID IV 04/09/24 10:00 04/09/24 09:23 40 MG Laboratory Results Laboratory Tests 04/09/24 06:55 Chemistry Test 04/09/24 06:55 Albumin 3.2 g/dL (3.2-4.8) Calcium Level 9.6 mg/dL (8.7-10.4) Magnesium Level 2.3 mg/dL (1.6-2.6) Total Protein 5.6 g/dL (5.7-8.2) L LFT Test 04/09/24 06:55 Alanine Aminotransferase (ALT) < 9 U/L (7-40) Alkaline Phosphatase 81 U/L (46-116) Aspartate Amino Transferase (AST) 14 U/L (13-40) Total Bilirubin 1.0 mg/dL (0.2-1.0) Urinalysis Test 04/08/24 12:40 Urine Color Light-yellow (Yellow) Urine Clarity Clear (Clear) Urine pH 6.5 (5.0-9.0) Urine Specific [place] 1.008 (1.001-1.035) Urine Protein 1+ (Negative) H Urine Ketones Negative (Negative) Urine Blood 1+ /uL (Negative) H Urine Nitrite Negative (Negative) Urine Bilirubin Negative (Negative) Urine Urobilinogen Normal mg/dL (Negative) Urine Leukocyte Esterase Negative /uL (Negative) Urine RBC 4 /hpf (0 - 3) Urine WBC 5 /hpf (0 - 3) Urine Squamous Epithelial Cells Few /hpf (<5) Urine Bacteria None seen /hpf (None Seen) Urine Glucose Normal mg/dL (Normal) Labs and/or images reviewed: Labs reviewed by me, Image(s) reviewed by me Assessment/Plan Assessment/Plan A 64-year-old male patient; with multiple comorbidities; presented to the emergency department with rectal bleed and syncope associated with SOB. #Acute GI bleed with fresh blood per rectum and melena; stopped all antiplatelet and anticoagulation; re-consulted GI; IV PPIs; negative FOBT; stable hemoglobin; continue monitoring #Syncope in the setting of GI bleed; fall precautions; re-ordered orthostatic vital signs; cardiology is following; telemetry; continue monitoring #Acute hypoxic respiratory failure due to pulmonary edema secondary to acute on chronic congestive diastolic and systolic heart failure; telemetry; continue oxygen therapy as needed; continue IV diuresis; cardiology is following; reviewed echocardiogram; continue monitoring #Acute on chronic congestive diastolic and systolic heart failure; management as above; continue monitoring #NSTEMI type 2; demand ischemia; details as above; continue monitoring #CAD s/p PCIs x3 RASHEEDA; holding antiplatelets due to GI bleed; continue statin; telemetry; no chest pain; cardiology is following; continue monitoring #Paroxysmal atrial fibrillation; holding apixaban due to GI bleed; continue amiodarone; telemetry; cardiology is following; continue monitoring #S/P permanent pacemaker ([employer], 2015); severe pulmonary hypertension; s/p cardiac ablations x 3 and right subclavian graft; telemetry; cardiology is following; continue monitoring #End-stage renal disease on hemodialysis Tuesdays, , Saturdays via right upper extremity AV fistula; hemodialysis as per nephrology; continue monitoring #Electrolytes imbalance; to correct as indicated; nephrology is following; continue monitoring #Pancytopenia; unclear etiology could be related to end-stage renal disease versus treatment of prostate cancer; platelet count above 42435 so no platelet transfusion at this time; absolute neutrophilic count is above 1000 so no droplet precaution at this time; continue monitoring #Anemia in the setting of end-stage renal disease and GI bleed; to transfuse blood when hemoglobin less than 8; continue monitoring #Overweight; counseled the patient about importance of adopting healthy lifestyle with diet and exercise in order to lose weight; continue monitoring #Prostate cancer s/p chemotherapy and radiation this year; PSA pending; continue monitoring This medical document was created using an electronic medical record system with computerized dictation system. Although this document has been carefully reviewed, there might still be some phonetic and typographical errors. These areas are purely typographical due to imperfections of the software programs, and do not reflect any compromise in the patient's medical care. Plan discussed with: Patient, Other (Nurse) My Orders Orders - CAROLINE HILLS MD Procedure Category Date Status Time Orthostatic Vital ORDERS 04/09/24 Transmitted Signs 06:36 Code Status CODE 04/09/24 Transmitted 06:39 Pantoprazole PHA 04/09/24 In Process (Protonix) 10:00 Psa Total+% Free LAB 04/09/24 In Process 06:55 Communication Order ORDERS 04/09/24 Transmitted 06:57 Date of Service: Apr 09, 2024 Billing Provider: CAROLINE HILLS MD Common Visit Codes: [id number] INP/OBS CARE(HIGH) CAROLINE HILLS MD Apr 09, 2024 12:36
[2024-04-09] MEDS ORDERED: DAPA1TAB4 PO (14:27)
[2024-04-10] VITALS (10 sets, daily range): BP systolic 103–140; BP diastolic 67–84; PULSE 67–80; RESP 16–20; TEMP 96.2–98.1; O2SAT 90–100
[2024-04-10 07:04] LABS: Basophils # (auto) 0.1 10 ^3/uL (0-0.2); Basophils % (auto) 3.2 % (0.0-2.0); Eosinophils # (auto) 0.3 10 ^3/uL (0-0.8); Eosinophils % (auto) 11.6 % (0.0-7.0); Hematocrit 29.3 % (41.0-53.0); Hemoglobin 9.4 g/dL (13.5-17.5); Lymphocytes # (auto) 0.3 10 ^3/uL (0.4-5.4); Lymphocytes % (auto) 10.8 % (10.0-50.0); Mean Corpuscular Hemoglobin 31.4 pg (28.0-32.0); Mean Corpuscular Hgb Conc. 32.2 g/dL (32.0-36.0); Mean Corpuscular Volume 97.5 fL (80.0-100.0); Monocytes # (auto) 0.3 10 ^3/uL (0-1.3); Monocytes % (auto) 10.6 % (0.0-12.0); Neutrophils # (auto) 1.6 10 ^3/uL (1.6-8.6); Neutrophils % (auto) 63.8 % (37.0-80.0); Nucleated Red Blood Cells % 0.6 %; Platelet Count (auto) 75 10^3/uL (140-450); Red Cell Distribution Width 18.6 % (11.8-14.3); White Blood Cell 2.5 10^3/uL (4.4-10.8)
[2024-04-10 07:21] LABS: Albumin 3.3 g/dL (3.2-4.8); Alkaline Phosphatase 83 U/L (46-116); Anion Gap 9 (5-15); Blood Urea Nitrogen 20 mg/dL (9-23); Calcium 9.6 mg/dL (8.7-10.4); Carbon Dioxide 30 mmol/L (20-31); Chloride 99 mmol/L (98-107); Glucose 95 mg/dL (74-106); Potassium 3.6 mmol/L (3.5-5.1); Sodium 138 mmol/L (136-145)
[2024-04-10 07:23] LABS: Bilirubin, Total 0.8 mg/dL (0.2-1.0)
[2024-04-10 07:31] LABS: Alanine Aminotransferase < 9 U/L (7-40); Aspartate Aminotransferase 10 U/L (13-40); Total Protein 5.4 g/dL (5.7-8.2)
--- NOTE | 2024-04-10 12:13 | DVHPN2 ---
Subjective No more rectal bleed; no recurrence of syncope; still with SOB Reviewed: Care Plan, H&P, Labs, Medications, Previous Orders, Radiology, Other (Consultations) Changes from previous H/P or p: No Changes Objective Vitals Vital Signs Date Time Temp Pulse Resp B/P (MAP) Pulse Ox O2 Delivery O2 Flow Rate FiO2 04/10/24 09:13 74 119/76 04/10/24 09:00 97.5 19 97 97.5 04/10/24 08:20 Nasal Cannula* 3 32 Intake/Output Intake and Output 04/10/24 07:00 Intake Total 1120 ml Output Total 745 ml Balance 375 ml Intake Oral 1120 ml Output Urine Total 745 ml General Appearance: Alert, Oriented X3, Cooperative, mild distress HEENT: Other (Pale) Lungs: Other (Decreased air entry bilateral) Chest/Breasts: Other (Pacemaker in place) Cardiovascular: Regular rate, Normal S1, Normal S2 Abdomen: Normal bowel sounds, Soft, No tenderness Extremities: Other (Right arm AV fistula with good bruit/thrill) Neuro: Normal speech, Cranial nerves 3-12 NL Psych/Mental Status: Mental status NL, Mood NL Medications Current Medications Medications Dose Ordered Sig/Colleen Route Start Time Stop Time Status Last Admin Dose Admin Ondansetron HCl 4 mg Q4HP PRN IV 04/07/24 22:15 Acetaminophen 650 mg Q6HP PRN PO 04/07/24 22:15 Nitroglycerin 0.4 mg Q5MINP PRN SL 04/07/24 22:15 Morphine Sulfate 2 mg Q30M PRN IV 04/07/24 22:15 Metoprolol Tartrate 25 mg BID PO 04/08/24 10:00 04/08/24 08:59 25 MG Atorvastatin Calcium 40 mg HS PO 04/08/24 22:00 04/09/24 22:02 40 MG Amiodarone HCl 200 mg DAILY PO 04/08/24 10:00 04/10/24 09:13 200 MG Sacubitril/ Valsartan 1 tab BID PO 04/08/24 10:00 04/10/24 09:13 1 TAB Sevelamer HCl 800 mg TIDWM PO 04/08/24 08:00 04/10/24 07:47 800 MG Albuterol 2.5 mg Q6HPRN PRN NEB 04/07/24 22:15 Docusate Sodium 100 mg BID PO 04/08/24 10:00 04/10/24 09:13 100 MG Furosemide 20 mg BIDD IV 04/08/24 18:00 04/10/24 05:59 20 MG Pantoprazole Sodium 40 mg BID IV 04/09/24 10:00 04/10/24 09:13 40 MG Laboratory Results Laboratory Tests 04/10/24 06:39 Chemistry Test 04/10/24 06:39 Albumin 3.3 g/dL (3.2-4.8) Calcium Level 9.6 mg/dL (8.7-10.4) Total Protein 5.4 g/dL (5.7-8.2) L LFT Test 04/10/24 06:39 Alanine Aminotransferase (ALT) < 9 U/L (7-40) Alkaline Phosphatase 83 U/L (46-116) Aspartate Amino Transferase (AST) 10 U/L (13-40) L Total Bilirubin 0.8 mg/dL (0.2-1.0) Urinalysis Test 04/08/24 12:40 Urine Color Light-yellow (Yellow) Urine Clarity Clear (Clear) Urine pH 6.5 (5.0-9.0) Urine Specific [place] 1.008 (1.001-1.035) Urine Protein 1+ (Negative) H Urine Ketones Negative (Negative) Urine Blood 1+ /uL (Negative) H Urine Nitrite Negative (Negative) Urine Bilirubin Negative (Negative) Urine Urobilinogen Normal mg/dL (Negative) Urine Leukocyte Esterase Negative /uL (Negative) Urine RBC 4 /hpf (0 - 3) Urine WBC 5 /hpf (0 - 3) Urine Squamous Epithelial Cells Few /hpf (<5) Urine Bacteria None seen /hpf (None Seen) Urine Glucose Normal mg/dL (Normal) Labs and/or images reviewed: Labs reviewed by me, Image(s) reviewed by me Assessment/Plan Assessment/Plan A 64-year-old male patient; with multiple comorbidities; presented to the emergency department with rectal bleed and syncope associated with SOB. #Acute GI bleed with fresh blood per rectum and melena; stopped all antiplatelet and anticoagulation; will reach out again to GI; IV PPIs; negative FOBT; dropping hemoglobin; continue monitoring #Syncope in the setting of GI bleed; fall precautions; repeat orthostatic vital signs within normal limits; cardiology is following; telemetry; continue monitoring #Acute hypoxic respiratory failure due to pulmonary edema secondary to acute on chronic congestive diastolic and systolic heart failure; telemetry; continue oxygen therapy as needed; continue IV diuresis; cardiology is following; reviewed echocardiogram; continue monitoring #Acute on chronic congestive diastolic and systolic heart failure; management as above; continue monitoring #NSTEMI type 2; demand ischemia; details as above; continue monitoring #CAD s/p PCIs x3 RASHEEDA; holding antiplatelets due to GI bleed; continue statin; telemetry; no chest pain; cardiology is following; continue monitoring #Paroxysmal atrial fibrillation; holding apixaban due to GI bleed; continue amiodarone; telemetry; cardiology is following; continue monitoring #S/P permanent pacemaker ([employer], 2015); severe pulmonary hypertension; s/p cardiac ablations x 3 and right subclavian graft; telemetry; cardiology is following; continue monitoring #End-stage renal disease on hemodialysis Tuesdays, , Saturdays via right upper extremity AV fistula; hemodialysis as per nephrology; continue monitoring #Electrolytes imbalance; to correct as indicated; nephrology is following; continue monitoring #Pancytopenia; unclear etiology could be related to end-stage renal disease versus treatment of prostate cancer; platelet count above 11047 so no platelet transfusion at this time; absolute neutrophilic count is above 1000 so no droplet precaution at this time; continue monitoring #Anemia in the setting of end-stage renal disease and GI bleed; to transfuse blood when hemoglobin less than 8; continue monitoring #Overweight; counseled the patient about importance of adopting healthy lifestyle with diet and exercise in order to lose weight; continue monitoring #Prostate cancer s/p chemotherapy and radiation this year; PSA pending; continue monitoring This medical document was created using an electronic medical record system with computerized dictation system. Although this document has been carefully reviewed, there might still be some phonetic and typographical errors. These areas are purely typographical due to imperfections of the software programs, and do not reflect any compromise in the patient's medical care. Plan discussed with: Patient, Other (Nurse) My Orders Orders - CAROLINE HILLS MD Procedure Category Date Status Time * Gi Dvh Pulping Machine Operator CONS 04/09/24 Transmitted 16:17 Orthostatic Vital ORDERS 04/10/24 Transmitted Signs 08:00 Date of Service: Apr 10, 2024 Billing Provider: CAROLINE HILLS MD Common Visit Codes: [id number] INP/OBS CARE(HIGH) CAROLINE HILLS MD Apr 10, 2024 12:13
[2024-04-10 15:07] LABS: PSA Free <0.02 ng/mL; Prostate Specific Antigen <0.1 ng/mL (0.0-4.0)
--- NOTE | 2024-04-10 17:05 | DVHINCON2 ---
GI Consult Consult Note Date of Consultation: 04/10/2024 Chief Complaint: GI bleed Referring Physician: Cristy H&P: Patient is a 64-year-old man with significant coronary artery disease history, PTCA x3 history of anticoagulation with Eliquis and Plavix, history of ischemic cardiomyopathy, history of dual-chamber pacemaker, ejection fraction 35%, end-stage renal disease on hemodialysis, admitted with symptoms of GI bleeding. Patient complained of bright red blood however when hospitalist did digital rectal exam was noted to have melena. Patient states he had a colonoscopy two years ago and was normal. Patient denies any significant abdominal pain, fevers, chills, chest pain, shortness of breath. Patient denies dysphagia, hematemesis, nausea, vomiting. Past Medical History: Atrial fibrillation Ischemic cardiomyopathy Coronary artery disease History of pacemaker GI bleeding End-stage renal disease on hemodialysis Past Surgical History: Pacemaker Social History: Denies tobacco alcohol or recreational drug Family History: No gastrointestinal diseases or malignancies Review of Systems: Constitutional: no fever, chill, weight loss HEENT: no eye pain, no hearing loss, no oral lesion, no scleral icterus Heart: As per HPI Lung: no cough, no dyspnea with exertion Abdomen: see HPI : As per HPI Musculoskeletal: no joint pain, no muscle pain Neurological: no seizure, no loss of sensation, no weakness in extremities Pysch: no depression, no anxiety Derm: no rash, no jaundice Current Medications Medications (Trade) Dose Ordered Sig/Colleen Route Start Time Stop Time Status Last Admin Dose Admin Ondansetron HCl (Zofran) 4 mg Q4HP PRN IV 04/07/24 22:15 Acetaminophen (Tylenol Tablet) 650 mg Q6HP PRN PO 04/07/24 22:15 Nitroglycerin (Ntrostat Sublingual) 0.4 mg Q5MINP PRN SL 04/07/24 22:15 Morphine Sulfate 2 mg Q30M PRN IV 04/07/24 22:15 Metoprolol Tartrate (Lopressor Tablet) 25 mg BID PO 04/08/24 10:00 04/08/24 08:59 25 MG Atorvastatin Calcium (Lipitor) 40 mg HS PO 04/08/24 22:00 04/09/24 22:02 40 MG Amiodarone HCl (Cordarone Tablet) 200 mg DAILY PO 04/08/24 10:00 04/10/24 09:13 200 MG Sacubitril/ Valsartan (Entresto 24-26 Mg tab) 1 tab BID PO 04/08/24 10:00 04/10/24 09:13 1 TAB Sevelamer HCl (Renagel) 800 mg TIDWM PO 04/08/24 08:00 04/10/24 12:26 800 MG Albuterol (Ventolin Medneb) 2.5 mg Q6HPRN PRN NEB 04/07/24 22:15 Docusate Sodium (Colace Capsule) 100 mg BID PO 04/08/24 10:00 04/10/24 09:13 100 MG Furosemide (Lasix Injection) 20 mg BIDD IV 04/08/24 18:00 04/10/24 05:59 20 MG Pantoprazole Sodium (Protonix) 40 mg BID IV 04/09/24 10:00 04/10/24 09:13 40 MG Vital Signs Date Time Temp Pulse Resp B/P (MAP) Pulse Ox O2 Delivery O2 Flow Rate FiO2 04/10/24 12:55 97.2 76 20 140/81 (100) 98 97.2 04/10/24 08:20 Nasal Cannula* 3 32 Physical exam: General: Alert and oriented x4 no distress HEENT: Normocephalic atraumatic extraocular muscles intact, pupils equal round react light accommodating Her: Regular rate and rhythm Abdomen: Soft nontender nondistended Extremity: No clubbing cyanosis or edema Labs: Laboratory Tests Test 04/09/24 06:55 04/09/24 09:29 04/09/24 14:45 04/10/24 06:39 Range/Units White Blood Count 2.5 L 2.5 L 4.4-10.8 10^3/uL Red Blood Count 3.42 L 3.00 L 4.5-5.90 10^6/uL Hemoglobin 10.7 L 9.4 L 13.5-17.5 g/dL Hematocrit 33.8 #L 29.3 #L 41.0-53.0 % Mean Corpuscular Volume 98.8 97.5 80.0-100.0 fL Mean Corpuscular Hemoglobin 31.4 31.4 28.0-32.0 pg Mean Corpuscular Hemoglobin Concent 31.8 L 32.2 32.0-36.0 g/dL Red Cell Distribution Width 19.8 H 18.6 H 11.8-14.3 % Platelet Count 67 L 75 L 140-450 10^3/uL Mean Platelet Volume 7.4 7.4 6.9-10.8 fL Neutrophils (%) (Auto) 65.1 63.8 37.0-80.0 % Lymphocytes (%) (Auto) 10.9 10.8 10.0-50.0 % Monocytes (%) (Auto) 10.6 10.6 0.0-12.0 % Eosinophils (%) (Auto) 10.1 H 11.6 H 0.0-7.0 % Basophils (%) (Auto) 3.3 H 3.2 H 0.0-2.0 % Neutrophils # (Auto) 1.6 1.6 1.6-8.6 10 ^3/uL Lymphocytes # (Auto) 0.3 L 0.3 L 0.4-5.4 10 ^3/uL Monocytes # (Auto) 0.3 0.3 0-1.3 10 ^3/uL Eosinophils # (Auto) 0.3 0.3 0-0.8 10 ^3/uL Basophils # (Auto) 0.1 0.1 0-0.2 10 ^3/uL Nucleated Red Blood Cells 0.2 0.6 % Sodium Level 137 138 136-145 mmol/L Potassium Level 3.6 3.6 3.5-5.1 mmol/L Chloride Level 100 99 98-107 mmol/L Carbon Dioxide Level 28 30 20-31 mmol/L Anion Gap 9 9 5-15 Blood Urea Nitrogen 15 # 20 9-23 mg/dL Creatinine 4.27 H 4.98 H 0.700-1.30 mg/dL Glomerular Filtration Rate Calc 15 12 >90 mL/min BUN/Creatinine Ratio 3.5 L 4.0 L 10.0-20.0 Serum Glucose 89 95 74-106 mg/dL Calcium Level 9.6 9.6 8.7-10.4 mg/dL Magnesium Level 2.3 1.6-2.6 mg/dL Total Bilirubin 1.0 0.8 0.2-1.0 mg/dL Aspartate Amino Transferase (AST) 14 10 L 13-40 U/L Alanine Aminotransferase (ALT) < 9 < 9 7-40 U/L Alkaline Phosphatase 81 83 46-116 U/L Total Protein 5.6 L 5.4 L 5.7-8.2 g/dL Albumin 3.2 3.3 3.2-4.8 g/dL Free Prostate Specific Antigen <0.02 N/A ng/mL Percent Free Prostate Specific Ag . % Prostate Specific Antigen Total <0.1 0.0-4.0 ng/mL Stool Occult Blood Negative Negative Stool Occult Blood Sample #3 Negative Hepatitis A IgM Antibody Pending Hepatitis B Surface Antigen Pending Hepatitis B Core IgM Antibody Pending Hepatitis C Antibody Pending Assessment: 1. End-stage renal disease 2. Coronary artery disease 3. Ischemic cardiomyopathy 4. GI bleeding 5. Hypertension 6. Thrombocytopenia Differential diagnosis includes peptic ulcer disease, versus erosive esophagitis, versus esophageal or gastric varices versus other. Please include lower GI bleed due to colitis diverticulosis or hemorrhoids versus other. Patient endorses negative colonoscopy two years ago Recommendations: 1. Abdominal ultrasound for evaluation for possible cirrhosis given thrombocytopenia 2. Continue Protonix 3. Will follow H&H 4. Consider EGD and/or colonoscopy 5. We will need cardiac clearance before any intervention 6. Continue to hold anticoagulation 7. Diet as tolerated Date of Service: Apr 10, 2024 Billing Provider: DHIRAJ GOVEA MD Common Visit Codes: [id number] INP/OBS CARE (HIGH) Consultation Codes: [id number] CONSULT <60MIN DHIRAJ GOVEA MD Apr 10, 2024 17:05
--- NOTE | 2024-04-10 21:54 | DVHPN2 ---
Progress Note Date Seen: Apr 10, 2024 Medical Necessity Reason Pt with a Central, PICC or Fol: No Subjective Patient reports: No new complaints Review of Systems: Deferred Objective vital signs Vital Sign Date Time Temp Pulse Resp B/P (MAP) Pulse Ox O2 Delivery O2 Flow Rate FiO2 04/10/24 21:00 98.1 69 18 103/67 (79) 90 98.1 04/10/24 19:19 Nasal Cannula* 2 28 Total Intake and Output 04/09/24 04/09/24 04/10/24 15:00 23:00 07:00 Intake Total 420 ml 700 ml Output Total 220 ml 525 ml Balance 200 ml 175 ml medications Current Medications Medications Dose Ordered Sig/Colleen Route Start Time Stop Time Status Last Admin Dose Admin Ondansetron HCl 4 mg Q4HP PRN IV 04/07/24 22:15 Acetaminophen 650 mg Q6HP PRN PO 04/07/24 22:15 Nitroglycerin 0.4 mg Q5MINP PRN SL 04/07/24 22:15 Morphine Sulfate 2 mg Q30M PRN IV 04/07/24 22:15 Metoprolol Tartrate 25 mg BID PO 04/08/24 10:00 04/08/24 08:59 25 MG Atorvastatin Calcium 40 mg HS PO 04/08/24 22:00 04/09/24 22:02 40 MG Amiodarone HCl 200 mg DAILY PO 04/08/24 10:00 04/10/24 09:13 200 MG Sacubitril/ Valsartan 1 tab BID PO 04/08/24 10:00 04/10/24 09:13 1 TAB Sevelamer HCl 800 mg TIDWM PO 04/08/24 08:00 04/10/24 17:57 800 MG Albuterol 2.5 mg Q6HPRN PRN NEB 04/07/24 22:15 Docusate Sodium 100 mg BID PO 04/08/24 10:00 04/10/24 09:13 100 MG Furosemide 20 mg BIDD IV 04/08/24 18:00 04/10/24 05:59 20 MG Pantoprazole Sodium 40 mg BID IV 04/09/24 10:00 04/10/24 09:13 40 MG Examination: LUNGS:Abnormal, MSK:Abnormal laboratory and microbiology Laboratory Tests 04/10/24 06:39 Test 04/10/24 06:39 Range/Units Serum Glucose 95 74-106 mg/dL Problem List/Assessment/Plan Problem List/Assessment/Plan ESRD on hemodialysis, out of the area Acute on chronic diastolic versus systolic CHF Hypertension Anemia of chronic disease ? Lower GI bleed Recommendations Hemodialysis today also for volume removal,next hd saturday Patient missed dialysis sessions Outpatient chair time with [facility] dialysis Plan discussed with: Patient, Other My Orders My Orders Orders - ADITYA DUNCAN MD Procedure Category Date Status Time Hemodialysis LETICIA 04/09/24 In Process Treatment Order 23:23 Acute Hepatitis Panel LAB 04/10/24 In Process 07:46 ADITYA DUNCAN MD Apr 10, 2024 21:54
[2024-04-10] MEDS: ACETAMINOPHEN 325 MG TAB PO PRN (22:18)
[2024-04-11] VITALS (11 sets, daily range): BP systolic 103–141; BP diastolic 62–84; PULSE 77–85; RESP 16–18; TEMP 97.4–98.7; O2SAT 95–100
[2024-04-11 05:22] LABS: Basophils # (auto) 0.1 10 ^3/uL (0-0.2); Basophils % (auto) 2.1 % (0.0-2.0); Eosinophils # (auto) 0.3 10 ^3/uL (0-0.8); Eosinophils % (auto) 10.4 % (0.0-7.0); Hematocrit 31.9 % (41.0-53.0); Hemoglobin 10.3 g/dL (13.5-17.5); Lymphocytes # (auto) 0.3 10 ^3/uL (0.4-5.4); Lymphocytes % (auto) 11.4 % (10.0-50.0); Mean Corpuscular Hemoglobin 31.4 pg (28.0-32.0); Mean Corpuscular Hgb Conc. 32.1 g/dL (32.0-36.0); Mean Corpuscular Volume 97.6 fL (80.0-100.0); Monocytes # (auto) 0.2 10 ^3/uL (0-1.3); Monocytes % (auto) 8.4 % (0.0-12.0); Neutrophils # (auto) 1.7 10 ^3/uL (1.6-8.6); Neutrophils % (auto) 67.7 % (37.0-80.0); Nucleated Red Blood Cells % 0.2 %; Platelet Count (auto) 67 10^3/uL (140-450); Red Blood Cells 3.27 10^6/uL (4.5-5.90); Red Cell Distribution Width 19.4 % (11.8-14.3); White Blood Cell 2.5 10^3/uL (4.4-10.8)
[2024-04-11 05:38] LABS: Anion Gap 6 (5-15); Chloride 99 mmol/L (98-107); Potassium 4.5 mmol/L (3.5-5.1); Sodium 137 mmol/L (136-145)
[2024-04-11 05:40] LABS: Calcium 9.7 mg/dL (8.7-10.4)
[2024-04-11 05:44] LABS: BUN/Creatinine Ratio 3.3 (10.0-20.0); Blood Urea Nitrogen 13 mg/dL (9-23)
[2024-04-11 05:46] LABS: Carbon Dioxide 32 mmol/L (20-31); Glucose 111 mg/dL (74-106)
--- NOTE | 2024-04-11 13:59 | DVHPN2 ---
Subjective No more rectal bleed; no recurrence of syncope; still with SOB Reviewed: Care Plan, H&P, Labs, Medications, Previous Orders, Radiology, Other (Consultations) Changes from previous H/P or p: No Changes Objective Vitals Vital Signs Date Time Temp Pulse Resp B/P (MAP) Pulse Ox O2 Delivery O2 Flow Rate FiO2 04/11/24 09:35 98.7 81 18 104/71 (82) 98 98.7 04/11/24 08:10 Nasal Cannula* 2 28 Intake/Output Intake and Output 04/11/24 07:00 Intake Total 950 ml Output Total 600 ml Balance 350 ml Intake Oral 950 ml Output Urine Total 600 ml General Appearance: Alert, Oriented X3, Cooperative, No acute distress HEENT: Other (Pale) Lungs: Other (Decreased air entry bilateral) Chest/Breasts: Other (Pacemaker in place) Cardiovascular: Regular rate, Normal S1, Normal S2 Abdomen: Normal bowel sounds, Soft, No tenderness Extremities: Other (Right arm AV fistula with good bruit/thrill) Neuro: Normal speech, Cranial nerves 3-12 NL Psych/Mental Status: Mental status NL, Mood NL Medications Current Medications Medications Dose Ordered Sig/Colleen Route Start Time Stop Time Status Last Admin Dose Admin Ondansetron HCl 4 mg Q4HP PRN IV 04/07/24 22:15 Acetaminophen 650 mg Q6HP PRN PO 04/07/24 22:15 04/10/24 22:18 650 MG Nitroglycerin 0.4 mg Q5MINP PRN SL 04/07/24 22:15 Morphine Sulfate 2 mg Q30M PRN IV 04/07/24 22:15 Metoprolol Tartrate 25 mg BID PO 04/08/24 10:00 04/08/24 08:59 25 MG Atorvastatin Calcium 40 mg HS PO 04/08/24 22:00 04/10/24 22:10 40 MG Amiodarone HCl 200 mg DAILY PO 04/08/24 10:00 04/11/24 08:56 200 MG Sacubitril/ Valsartan 1 tab BID PO 04/08/24 10:00 04/11/24 08:56 1 TAB Sevelamer HCl 800 mg TIDWM PO 04/08/24 08:00 04/10/24 17:57 800 MG Albuterol 2.5 mg Q6HPRN PRN NEB 04/07/24 22:15 Docusate Sodium 100 mg BID PO 04/08/24 10:00 04/11/24 08:56 100 MG Furosemide 20 mg BIDD IV 04/08/24 18:00 04/10/24 05:59 20 MG Pantoprazole Sodium 40 mg BID IV 04/09/24 10:00 04/11/24 08:56 40 MG Laboratory Results Laboratory Tests 04/11/24 04:52 Chemistry Test 04/11/24 04:52 Calcium Level 9.7 mg/dL (8.7-10.4) Urinalysis Test 04/08/24 12:40 Urine Color Light-yellow (Yellow) Urine Clarity Clear (Clear) Urine pH 6.5 (5.0-9.0) Urine Specific [place] 1.008 (1.001-1.035) Urine Protein 1+ (Negative) H Urine Ketones Negative (Negative) Urine Blood 1+ /uL (Negative) H Urine Nitrite Negative (Negative) Urine Bilirubin Negative (Negative) Urine Urobilinogen Normal mg/dL (Negative) Urine Leukocyte Esterase Negative /uL (Negative) Urine RBC 4 /hpf (0 - 3) Urine WBC 5 /hpf (0 - 3) Urine Squamous Epithelial Cells Few /hpf (<5) Urine Bacteria None seen /hpf (None Seen) Urine Glucose Normal mg/dL (Normal) Labs and/or images reviewed: Labs reviewed by me, Image(s) reviewed by me Assessment/Plan Assessment/Plan A 64-year-old male patient; with multiple comorbidities; presented to the emergency department with rectal bleed and syncope associated with SOB. #Acute GI bleed with fresh blood per rectum and melena; stopped all antiplatelet and anticoagulation; GI evaluated the patient and would like to proceed with the EGD pending cardiology evaluation for cardiovascular risk stratifications; IV PPIs; negative FOBT; dropping hemoglobin; continue monitoring #Syncope in the setting of GI bleed; fall precautions; repeat orthostatic vital signs within normal limits; cardiology is following; telemetry; continue monitoring #Acute hypoxic respiratory failure due to pulmonary edema secondary to acute on chronic congestive diastolic and systolic heart failure; telemetry; continue oxygen therapy as needed; continue IV diuresis; cardiology is following; reviewed echocardiogram; continue monitoring #Acute on chronic congestive diastolic and systolic heart failure; management as above; continue monitoring #NSTEMI type 2; demand ischemia; details as above; continue monitoring #CAD s/p PCIs x3 RASHEEDA; holding antiplatelets due to GI bleed; continue statin; telemetry; no chest pain; cardiology is following; continue monitoring #Paroxysmal atrial fibrillation; holding apixaban due to GI bleed; continue amiodarone; telemetry; cardiology is following; continue monitoring #S/P permanent pacemaker (Biotronik, 2015); severe pulmonary hypertension; s/p cardiac ablations x 3 and right subclavian graft; telemetry; cardiology is following; continue monitoring #End-stage renal disease on hemodialysis Tuesdays, , Saturdays via right upper extremity AV fistula; hemodialysis as per nephrology; continue monitoring #Electrolytes imbalance; to correct as indicated; nephrology is following; continue monitoring #Pancytopenia; unclear etiology could be related to end-stage renal disease versus treatment of prostate cancer; platelet count above 82811 so no platelet transfusion at this time; absolute neutrophilic count is above 1000 so no droplet precaution at this time; continue monitoring #Anemia in the setting of end-stage renal disease and GI bleed; to transfuse blood when hemoglobin less than 8; continue monitoring #Overweight; counseled the patient about importance of adopting healthy lifestyle with diet and exercise in order to lose weight; continue monitoring #Prostate cancer s/p chemotherapy and radiation this year; PSA pending; continue monitoring This medical document was created using an electronic medical record system with computerized dictation system. Although this document has been carefully reviewed, there might still be some phonetic and typographical errors. These areas are purely typographical due to imperfections of the software programs, and do not reflect any compromise in the patient's medical care. Plan discussed with: Patient, Other (Nurse) Date of Service: Apr 11, 2024 Billing Provider: CAROLINE HILLS MD Common Visit Codes: [id number] INP/OBS CARE(HIGH) CAROLINE HILLS MD Apr 11, 2024 13:59
--- NOTE | 2024-04-11 18:42 | PRN ---
Misceleneous Note Note Note Subjective: Patient doing well, resting in bed comfortably, denies any bleeding or abdominal pain. 04/11/2024 No acute changes. No evidence of gross bleeding. Patient is resting comfortably in bed. Cardiac clearance for endoscopy still pending. Abdominal ultrasound still pending for evaluation for liver disease given thrombocytopenia. Coagulation has been held patient is on Protonix Current Medications Medications (Trade) Dose Ordered Sig/Colleen Route Start Time Stop Time Status Last Admin Dose Admin Ondansetron HCl (Zofran) 4 mg Q4HP PRN IV 04/07/24 22:15 Acetaminophen (Tylenol Tablet) 650 mg Q6HP PRN PO 04/07/24 22:15 04/10/24 22:18 650 MG Nitroglycerin (Ntrostat Sublingual) 0.4 mg Q5MINP PRN SL 04/07/24 22:15 Morphine Sulfate 2 mg Q30M PRN IV 04/07/24 22:15 Metoprolol Tartrate (Lopressor Tablet) 25 mg BID PO 04/08/24 10:00 04/08/24 08:59 25 MG Atorvastatin Calcium (Lipitor) 40 mg HS PO 04/08/24 22:00 04/10/24 22:10 40 MG Amiodarone HCl (Cordarone Tablet) 200 mg DAILY PO 04/08/24 10:00 04/11/24 08:56 200 MG Sacubitril/ Valsartan (Entresto 24-26 Mg tab) 1 tab BID PO 04/08/24 10:00 04/11/24 08:56 1 TAB Sevelamer HCl (Renagel) 800 mg TIDWM PO 04/08/24 08:00 04/10/24 17:57 800 MG Albuterol (Ventolin Medneb) 2.5 mg Q6HPRN PRN NEB 04/07/24 22:15 Docusate Sodium (Colace Capsule) 100 mg BID PO 04/08/24 10:00 04/11/24 08:56 100 MG Furosemide (Lasix Injection) 20 mg BIDD IV 04/08/24 18:00 04/11/24 17:55 20 MG Pantoprazole Sodium (Protonix) 40 mg BID IV 04/09/24 10:00 04/11/24 08:56 40 MG Vital Signs Date Time Temp Pulse Resp B/P (MAP) Pulse Ox O2 Delivery O2 Flow Rate FiO2 04/11/24 17:55 141/84 04/11/24 16:53 98.6 77 18 100 98.6 04/11/24 08:10 Nasal Cannula* 2 28 Physical exam: General: Alert and oriented x4 no distress HEENT: Normocephalic atraumatic extraocular muscles intact, pupils equal round react light accommodating Her: Regular rate and rhythm Abdomen: Soft nontender nondistended Extremity: No clubbing cyanosis or edema Labs Test 04/11/24 04:52 04/10/24 06:39 04/09/24 14:45 04/09/24 09:29 Range/Units White Blood Count 2.5 L 4.4-10.8 10^3/uL Red Blood Count 3.27 L 4.5-5.90 10^6/uL Hemoglobin 10.3 L 13.5-17.5 g/dL Hematocrit 31.9 L 41.0-53.0 % Mean Corpuscular Volume 97.6 80.0-100.0 fL Mean Corpuscular Hemoglobin 31.4 28.0-32.0 pg Mean Corpuscular Hemoglobin Concent 32.1 32.0-36.0 g/dL Red Cell Distribution Width 19.4 H 11.8-14.3 % Platelet Count 67 L 140-450 10^3/uL Mean Platelet Volume 7.7 6.9-10.8 fL Neutrophils (%) (Auto) 67.7 37.0-80.0 % Lymphocytes (%) (Auto) 11.4 10.0-50.0 % Monocytes (%) (Auto) 8.4 0.0-12.0 % Eosinophils (%) (Auto) 10.4 H 0.0-7.0 % Basophils (%) (Auto) 2.1 H 0.0-2.0 % Neutrophils # (Auto) 1.7 1.6-8.6 10 ^3/uL Lymphocytes # (Auto) 0.3 L 0.4-5.4 10 ^3/uL Monocytes # (Auto) 0.2 0-1.3 10 ^3/uL Eosinophils # (Auto) 0.3 0-0.8 10 ^3/uL Basophils # (Auto) 0.1 0-0.2 10 ^3/uL Nucleated Red Blood Cells 0.2 % Sodium Level 137 136-145 mmol/L Potassium Level 4.5 3.5-5.1 mmol/L Chloride Level 99 98-107 mmol/L Carbon Dioxide Level 32 H 20-31 mmol/L Anion Gap 6 5-15 Blood Urea Nitrogen 13 9-23 mg/dL Creatinine 4.00 H 0.700-1.30 mg/dL Glomerular Filtration Rate Calc 16 >90 mL/min BUN/Creatinine Ratio 3.3 L 10.0-20.0 Serum Glucose 111 H 74-106 mg/dL Calcium Level 9.7 8.7-10.4 mg/dL Total Bilirubin 0.8 0.2-1.0 mg/dL Aspartate Amino Transferase (AST) 10 L 13-40 U/L Alanine Aminotransferase (ALT) < 9 7-40 U/L Alkaline Phosphatase 83 46-116 U/L Total Protein 5.4 L 5.7-8.2 g/dL Albumin 3.3 3.2-4.8 g/dL Stool Occult Blood Negative Negative Stool Occult Blood Sample #3 Negative Free Prostate Specific Antigen <0.02 N/A ng/mL Percent Free Prostate Specific Ag . % Prostate Specific Antigen Total <0.1 0.0-4.0 ng/mL Test 04/09/24 06:55 04/08/24 12:40 04/08/24 05:17 04/07/24 21:32 Range/Units Magnesium Level 2.3 1.6-2.6 mg/dL Urine Color Light-yellow Yellow Urine Clarity Clear Clear Urine pH 6.5 5.0-9.0 Urine Specific [place] 1.008 1.001-1.035 Urine Protein 1+ H Negative Urine Ketones Negative Negative Urine Blood 1+ H Negative /uL Urine Nitrite Negative Negative Urine Bilirubin Negative Negative Urine Urobilinogen Normal Negative mg/dL Urine Leukocyte Esterase Negative Negative /uL Urine RBC 4 0 - 3 /hpf Urine WBC 5 0 - 3 /hpf Urine Squamous Epithelial Cells Few <5 /hpf Urine Bacteria None seen None Seen /hpf Urine Glucose Normal Normal mg/dL Phosphorus Level 5.3 H 2.4-5.1 mg/dL Parathyroid Hormone (Intact) 51.8 18.4-80.1 pg/mL Troponin I High Sensitivity 68 *H </=54 ng/L Test 04/07/24 17:26 Range/Units Platelet Estimate Decreased Anisocytosis (manual) Slight Prothrombin Time 14.3 H 9.3-11.8 sec Prothrombin Time INR 1.38 H 0.9-1.15 Activated Partial Thromboplast Time 29.6 24.5-34.5 SEC B-Type Natriuretic Peptide 2286.59 0-100 pg/mL Assessment: 1. End-stage renal disease 2. Coronary artery disease 3. Ischemic cardiomyopathy 4. GI bleeding 5. Hypertension 6. Thrombocytopenia Differential diagnosis includes peptic ulcer disease, versus erosive esophagitis, versus esophageal or gastric varices versus other. Please include lower GI bleed due to colitis diverticulosis or hemorrhoids versus other. Patient endorses negative colonoscopy two years ago Recommendations: 1. Abdominal ultrasound for evaluation for possible cirrhosis given thrombocytopenia 2. Continue Protonix 3. Will follow H&H 4. Consider EGD and/or colonoscopy 5. We will need cardiac clearance before any intervention 6. Continue to hold anticoagulation 7. Diet as tolerated DHIRAJ GOVEA MD Apr 11, 2024 18:42
--- NOTE | 2024-04-11 19:37 | DVHPN2 ---
Progress Note Date Seen: Apr 11, 2024 Medical Necessity Reason Pt with a Central, PICC or Fol: No Subjective Patient reports: No new complaints Review of Systems: HEENT:Normal, CVS:Normal, RESPIRATORY:Normal, GI:Normal, :Normal, MSK:Normal, NEURO:Normal Objective vital signs Vital Sign Date Time Temp Pulse Resp B/P (MAP) Pulse Ox O2 Delivery O2 Flow Rate FiO2 04/11/24 19:04 95 Nasal Cannula 2.0 04/11/24 19:04 28 04/11/24 17:55 141/84 04/11/24 16:53 98.6 77 18 98.6 Total Intake and Output 04/10/24 04/10/24 04/11/24 15:00 23:00 07:00 Intake Total 200 ml 750 ml Output Total 500 ml 100 ml Balance -300 ml 650 ml medications Current Medications Medications Dose Ordered Sig/Colleen Route Start Time Stop Time Status Last Admin Dose Admin Ondansetron HCl 4 mg Q4HP PRN IV 04/07/24 22:15 Acetaminophen 650 mg Q6HP PRN PO 04/07/24 22:15 04/10/24 22:18 650 MG Nitroglycerin 0.4 mg Q5MINP PRN SL 04/07/24 22:15 Morphine Sulfate 2 mg Q30M PRN IV 04/07/24 22:15 Metoprolol Tartrate 25 mg BID PO 04/08/24 10:00 04/08/24 08:59 25 MG Atorvastatin Calcium 40 mg HS PO 04/08/24 22:00 04/10/24 22:10 40 MG Amiodarone HCl 200 mg DAILY PO 04/08/24 10:00 04/11/24 08:56 200 MG Sacubitril/ Valsartan 1 tab BID PO 04/08/24 10:00 04/11/24 08:56 1 TAB Sevelamer HCl 800 mg TIDWM PO 04/08/24 08:00 04/10/24 17:57 800 MG Albuterol 2.5 mg Q6HPRN PRN NEB 04/07/24 22:15 Docusate Sodium 100 mg BID PO 04/08/24 10:00 04/11/24 08:56 100 MG Furosemide 20 mg BIDD IV 04/08/24 18:00 04/11/24 17:55 20 MG Pantoprazole Sodium 40 mg BID IV 04/09/24 10:00 04/11/24 08:56 40 MG laboratory and microbiology Laboratory Tests 04/11/24 04:52 Test 04/11/24 04:52 Range/Units Serum Glucose 111 H 74-106 mg/dL Problem List/Assessment/Plan Problem List/Assessment/Plan ESRD on hemodialysis, out of the area Acute on chronic diastolic versus systolic CHF Hypertension Anemia of chronic disease ? Lower GI bleed Recommendations next hd saturday Patient missed dialysis sessions Outpatient chair time with [facility] dialysis Plan discussed with: Patient ADITYA DUNCAN MD Apr 11, 2024 19:36
[2024-04-12] VITALS (12 sets, daily range): BP systolic 116–131; BP diastolic 69–81; PULSE 77–137; RESP 13–19; TEMP 97.2–98.1; O2SAT 92–100
[2024-04-12 07:17] LABS: Basophils # (auto) 0.1 10 ^3/uL (0-0.2); Basophils % (auto) 1.5 % (0.0-2.0); Eosinophils # (auto) 0.3 10 ^3/uL (0-0.8); Eosinophils % (auto) 9.7 % (0.0-7.0); Hematocrit 30.4 % (41.0-53.0); Hemoglobin 9.9 g/dL (13.5-17.5); Lymphocytes # (auto) 0.3 10 ^3/uL (0.4-5.4); Lymphocytes % (auto) 9.5 % (10.0-50.0); Mean Corpuscular Hemoglobin 31.6 pg (28.0-32.0); Mean Corpuscular Hgb Conc. 32.6 g/dL (32.0-36.0); Monocytes # (auto) 0.3 10 ^3/uL (0-1.3); Monocytes % (auto) 7.5 % (0.0-12.0); Neutrophils # (auto) 2.5 10 ^3/uL (1.6-8.6); Neutrophils % (auto) 71.8 % (37.0-80.0); Platelet Count (auto) 72 10^3/uL (140-450); Red Blood Cells 3.13 10^6/uL (4.5-5.90); White Blood Cell 3.5 10^3/uL (4.4-10.8)
[2024-04-12 07:35] LABS: Albumin 3.4 g/dL (3.2-4.8); Alkaline Phosphatase 83 U/L (46-116); Anion Gap 7 (5-15); BUN/Creatinine Ratio 4.9 (10.0-20.0); Glucose 98 mg/dL (74-106); Potassium 4.3 mmol/L (3.5-5.1); Sodium 137 mmol/L (136-145); Total Protein 5.8 g/dL (5.7-8.2)
[2024-04-12 07:46] LABS: Alanine Aminotransferase < 9 U/L (7-40); Aspartate Aminotransferase < 8 U/L (13-40); Blood Urea Nitrogen 25 mg/dL (9-23); Carbon Dioxide 32 mmol/L (20-31); Chloride 98 mmol/L (98-107)
--- NOTE | 2024-04-12 09:43 | DVH ---
CLINICAL INFORMATION: 64 years old, Male; Suspected liver cirrhosis in the setting of thrombocytope abdias. TECHNIQUE: Grayscale sonographic imaging of the right upper quadrant of the abdomen was performed, a ssisted by color Doppler techniques. COMPARISON: None FINDINGS: The gallbladder wall measures 2mm in thickness, within normal limits. No stones are seen . The common bile duct measures 5.4 mm in diameter, within normal limits. 2.7 cm cyst in the left hepatic lobe. Otherwise unremarkable echogenicity of the liver. The pancreas is obscured by bowel gas. The right kidney measures 6.5 cm. Left kidney measures 6.9 cm in length. There is no hydronephrosis. Increased echogenicity of both kidneys. Bilateral pleural effusions also noted, likely small to moderate pleural effusions. IMPRESSION: 1. Atrophic kidneys bilaterally with increased echogenicity. 2. Bilateral pleural effusions. 3. Cyst in the left hepatic lobe. 4. No sonographic evidence of acute cholecystitis.
[2024-04-12] MEDS: SACUBITRIL-VALSARTAN 24mg/26mg TAB PO SCH (10:00)
[2024-04-12] MEDS: METOPROLOL TARTRATE 25 MG TAB PO SCH (10:00)
--- NOTE | 2024-04-12 14:47 | ECG ---
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
--- NOTE | 2024-04-12 14:51 | ECG ---
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
[2024-04-12] MEDS ORDERED: NALOXONE HCL 0.4 MG/ML VIAL ONE (17:52)
[2024-04-12] MEDS ORDERED: FLUMAZENIL 0.1 MG/ML INJ 10ML MDV IV ONE (17:52)
[2024-04-12] MEDS ORDERED: diphenhdrAMINE HCL 50 MG/1 ML VL ONE (17:53)
[2024-04-12] MEDS ORDERED: SODIUM CHLORIDE LOCK 10 ML ONE (17:56)
[2024-04-12] MEDS: MIDAZOLAM HCL 5 MG/ML-1ML VIAL ONE (18:01)
[2024-04-12] MEDS: fentaNYL CITRATE 100 MCG/2 ML VL ONE (18:01)
--- NOTE | 2024-04-12 18:19 | DVHNC2 ---
Procedure - EGD Note DATE OF PROCEDURE: 04/12/2024 PATIENT NAME: Stanford Fuentes : 1960 TITLE OF PROCEDURE: Esophagogastroduodenoscopy with biopsy. CONCRETE MASON: Catarina Mcgarry MD INDICATION: Anemia, ?melena ASA LEVEL: III MALLAMPATI SCORE: II ANESTHESIA: Moderate sedation with Versed 2 mg, Fentanyl 50 mcg IV PROCEDURE IN DETAILS: After explanation of risks, benefits, and alternatives of the procedure to the patient, an informed consent was obtained. The patient was placed in left lateral position, connected to monitoring devices, including continuous pulse oximetry and electrocardiogram (EKG), then premedications were given. The Olympus gastroscope was inserted through the patients mouth and advanced under direct visualization to the esophagus, which was normal to the gastroesophageal (GE) junction. The scope was then advanced into the stomach. There was no active or old blood seen in the stomach. Otherwise the stomach was normal to the pylorus, including retroflexion of the cardia and fundus, status post random biopsies of the antrum and body. The scope was then advanced further into the duodenal bulb, 2nd and 3rd portions. There was mild scalloping of the mucosa noted, s/p biopsy to r/o Celiac disease. The scope was then withdrawn, the procedure concluded and the patient was transferred to the recovery area to recover in satisfactory condition. COMPLICATIONS: None and patient is medically stable. PROCEDURE TOLERANCE: Good ESTIMATED BLOOD LOSS (EBL): 0mL IMPRESSION: 1. Normal esophagus and stomach 2. There was mild scalloping of the duodenal mucosa noted, s/p biopsy to r/o Celiac disease. Sedation Start Time: see nursing note Procedure Start Time: see nursing note Procedure End Time: see nursing note RECOMMENDATIONS: 1. Follow-up pathology results. 2. Resume Aspirin or blood thinners. Monitor Hb. 3. Avoid nonsteroidal anti-inflammatory drugs (NSAIDs). 4. Consider colonoscopy as out pt, if anemia persists or any GI bleed noted. He had normal colonoscopy 2 yrs ago per pt. ESRD likely contributory to anemia SPECIMENS RETRIEVED: A. Duodenum. Thank you for allowing me to participate in the care of this patient. CATARINA MCGARRY MD Apr 12, 2024 18:19
--- NOTE | 2024-04-12 21:20 | DVHPN2 ---
Subjective No more rectal bleed; no recurrence of syncope; still with SOB Reviewed: Care Plan, H&P, Labs, Medications, Previous Orders, Radiology, Other (Consultations) Changes from previous H/P or p: No Changes Objective Vitals Vital Signs Date Time Temp Pulse Resp B/P (MAP) Pulse Ox O2 Delivery O2 Flow Rate FiO2 04/12/24 18:23 137 18 99 Mask 6.0 04/12/24 18:23 99 04/12/24 18:19 92/52 (65) 04/12/24 17:09 97.5 97.5 Intake/Output Intake and Output 04/12/24 07:00 Intake Total 1300 ml Output Total 1675 ml Balance -375 ml Intake Oral 1300 ml Output Urine Total 1675 ml # Bowel Movements 1 General Appearance: Alert, Oriented X3, Cooperative, mild distress HEENT: Other (Pale) Lungs: Other (Decreased air entry bilateral) Chest/Breasts: Other (Pacemaker in place) Cardiovascular: Regular rate, Normal S1, Normal S2 Abdomen: Normal bowel sounds, Soft, No tenderness Extremities: Other (Right arm AV fistula with good bruit/thrill) Neuro: Normal speech, Cranial nerves 3-12 NL Psych/Mental Status: Mental status NL, Mood NL Medications Current Medications Medications Dose Ordered Sig/Colleen Route Start Time Stop Time Status Last Admin Dose Admin Ondansetron HCl 4 mg Q4HP PRN IV 04/07/24 22:15 Acetaminophen 650 mg Q6HP PRN PO 04/07/24 22:15 04/10/24 22:18 650 MG Nitroglycerin 0.4 mg Q5MINP PRN SL 04/07/24 22:15 Morphine Sulfate 2 mg Q30M PRN IV 04/07/24 22:15 Atorvastatin Calcium 40 mg HS PO 04/08/24 22:00 04/11/24 21:39 40 MG Amiodarone HCl 200 mg DAILY PO 04/08/24 10:00 04/12/24 09:47 200 MG Sevelamer HCl 800 mg TIDWM PO 04/08/24 08:00 04/10/24 17:57 800 MG Albuterol 2.5 mg Q6HPRN PRN NEB 04/07/24 22:15 Docusate Sodium 100 mg BID PO 04/08/24 10:00 04/12/24 09:47 100 MG Furosemide 20 mg BIDD IV 04/08/24 18:00 04/11/24 17:55 20 MG Pantoprazole Sodium 40 mg BID IV 04/09/24 10:00 04/12/24 09:47 40 MG Metoprolol Tartrate 12.5 mg BID PO 04/12/24 10:00 Sacubitril/ Valsartan 0.5 tab BID PO 04/12/24 10:00 Laboratory Results Laboratory Tests 04/12/24 06:47 Chemistry Test 04/12/24 06:47 Albumin 3.4 g/dL (3.2-4.8) Calcium Level 10.0 mg/dL (8.7-10.4) Total Protein 5.8 g/dL (5.7-8.2) LFT Test 04/12/24 06:47 Alanine Aminotransferase (ALT) < 9 U/L (7-40) Alkaline Phosphatase 83 U/L (46-116) Aspartate Amino Transferase (AST) < 8 U/L (13-40) L Total Bilirubin 1.0 mg/dL (0.2-1.0) Urinalysis Test 04/08/24 12:40 Urine Color Light-yellow (Yellow) Urine Clarity Clear (Clear) Urine pH 6.5 (5.0-9.0) Urine Specific [place] 1.008 (1.001-1.035) Urine Protein 1+ (Negative) H Urine Ketones Negative (Negative) Urine Blood 1+ /uL (Negative) H Urine Nitrite Negative (Negative) Urine Bilirubin Negative (Negative) Urine Urobilinogen Normal mg/dL (Negative) Urine Leukocyte Esterase Negative /uL (Negative) Urine RBC 4 /hpf (0 - 3) Urine WBC 5 /hpf (0 - 3) Urine Squamous Epithelial Cells Few /hpf (<5) Urine Bacteria None seen /hpf (None Seen) Urine Glucose Normal mg/dL (Normal) Labs and/or images reviewed: Labs reviewed by me, Image(s) reviewed by me Assessment/Plan Assessment/Plan A 64-year-old male patient; with multiple comorbidities; presented to the emergency department with rectal bleed and syncope associated with SOB. #Acute GI bleed with fresh blood per rectum and melena; stopped all antiplatelet and anticoagulation; EGD planned for today; IV PPIs; negative FOBT; dropping hemoglobin; continue monitoring #Syncope in the setting of GI bleed; fall precautions; repeat orthostatic vital signs within normal limits; cardiology is following; telemetry; continue monitoring #Acute hypoxic respiratory failure due to pulmonary edema secondary to acute on chronic congestive diastolic and systolic heart failure; telemetry; continue oxygen therapy as needed; continue IV diuresis; cardiology is following; reviewed echocardiogram; continue monitoring #Acute on chronic congestive diastolic and systolic heart failure; management as above; continue monitoring #NSTEMI type 2; demand ischemia; details as above; continue monitoring #CAD s/p PCIs x3 RASHEEDA; holding antiplatelets due to GI bleed; continue statin; telemetry; no chest pain; cardiology is following; continue monitoring #Paroxysmal atrial fibrillation; holding apixaban due to GI bleed; continue amiodarone; telemetry; cardiology is following; continue monitoring #S/P permanent pacemaker ([employer]itronik, 2015); severe pulmonary hypertension; s/p cardiac ablations x 3 and right subclavian graft; telemetry; cardiology is following; continue monitoring #End-stage renal disease on hemodialysis Tuesdays, , Saturdays via right upper extremity AV fistula; hemodialysis as per nephrology; continue monitoring #Electrolytes imbalance; to correct as indicated; nephrology is following; continue monitoring #Pancytopenia; unclear etiology could be related to end-stage renal disease versus treatment of prostate cancer; platelet count [place] 44[address] so no platelet transfusion at this time; absolute neutrophilic count is above 1000 so no droplet precaution at this time; continue monitoring #Anemia in the setting of end-stage renal disease and GI bleed; to transfuse blood when hemoglobin less than 8; continue monitoring #Overweight; counseled the patient about importance of adopting healthy lifestyle with diet and exercise in order to lose weight; continue monitoring #Prostate cancer s/p chemotherapy and radiation this year; PSA within normal limits; continue monitoring This medical document was created using an electronic medical record system with computerized dictation system. Although this document has been carefully reviewed, there might still be some phonetic and typographical errors. These areas are purely typographical due to imperfections of the software programs, and do not reflect any compromise in the patient's medical care. Plan discussed with: Patient, Other (Nurse) Date of Service: Apr 12, 2024 Billing Provider: CAROLINE HILLS MD Common Visit Codes: [id number] INP/OBS CARE(HIGH) CAROLINE HILLS MD Apr 12, 2024 21:20
[2024-04-13] VITALS (8 sets, daily range): BP systolic 103–123; BP diastolic 61–77; PULSE 67–88; RESP 16–20; TEMP 97.5–98.7; O2SAT 90–99
[2024-04-13 07:10] LABS: Basophils # (auto) 0 10 ^3/uL (0-0.2); Basophils % (auto) 0.9 % (0.0-2.0); Eosinophils # (auto) 0.3 10 ^3/uL (0-0.8); Eosinophils % (auto) 8.1 % (0.0-7.0); Hematocrit 30.6 % (41.0-53.0); Hemoglobin 9.9 g/dL (13.5-17.5); Lymphocytes # (auto) 0.3 10 ^3/uL (0.4-5.4); Lymphocytes % (auto) 8.5 % (10.0-50.0); Mean Corpuscular Hemoglobin 31.2 pg (28.0-32.0); Mean Corpuscular Hgb Conc. 32.4 g/dL (32.0-36.0); Mean Corpuscular Volume 96.4 fL (80.0-100.0); Monocytes # (auto) 0.3 10 ^3/uL (0-1.3); Monocytes % (auto) 8.4 % (0.0-12.0); Neutrophils # (auto) 2.7 10 ^3/uL (1.6-8.6); Neutrophils % (auto) 74.1 % (37.0-80.0); Platelet Count (auto) 72 10^3/uL (140-450); Red Blood Cells 3.18 10^6/uL (4.5-5.90); Red Cell Distribution Width 19.1 % (11.8-14.3); White Blood Cell 3.7 10^3/uL (4.4-10.8)
[2024-04-13 07:34] LABS: Albumin 3.3 g/dL (3.2-4.8); Alkaline Phosphatase 77 U/L (46-116); Anion Gap 8 (5-15); BUN/Creatinine Ratio 4.9 (10.0-20.0); Bilirubin, Total 0.9 mg/dL (0.2-1.0); Calcium 9.9 mg/dL (8.7-10.4); Carbon Dioxide 29 mmol/L (20-31); Chloride 99 mmol/L (98-107); Glucose 91 mg/dL (74-106); Potassium 4.3 mmol/L (3.5-5.1)
[2024-04-13 07:37] LABS: Alanine Aminotransferase < 9 U/L (7-40); Aspartate Aminotransferase < 8 U/L (13-40); Blood Urea Nitrogen 29 mg/dL (9-23); Sodium 136 mmol/L (136-145); Total Protein 5.7 g/dL (5.7-8.2)
[2024-04-13 10:08] LABS: Hepatitis B Surface Antigen Negative (Negative)
[2024-04-13 10:29] LABS: Hepatitis A Ab IgM Negative; Hepatitis B Core IgM Negative
[2024-04-13 10:30] LABS: Hepatitis C Antibody Negative (Negative)
--- NOTE | 2024-04-13 11:16 | CONS ---
Pharmacy Clinical Information: From [facility] Heart Failure Fallout Report, Gina Stanford Woo is a 64 year old male with PMH of ESRD on HD, CHF (LVEF 20%), CAD, HTN, and pacemaker. His home medications for heart failure include sacubitril/valsartan, dapagliflozin, and metoprolol tartrate. His inpatient medications include sacubitril/valsartan and metoprolol tartrate. Consider switching metoprolol tartrate to metoprolol succinate since the 2021 heart failure guidelines recommended sustained-release metoprolol to reduce mortality and hospitalizations. SGLT2i not recommended due to limited studies with unknown impact on patients with intermittent hemodialysis. MRA not recommended since eGFR < 30 YOVANY JOHNSON PHARMACIST Apr 13, 2024 11:16
--- NOTE | 2024-04-13 13:13 | DVHPN2 ---
Progress Note Date Seen: Apr 13, 2024 Resident Creating Document: ROMAINE MCGOVERN RESIDENT Medical Necessity Reason Pt with a Central, PICC or Fol: No Subjective Review of Systems History of Present Illness Patient is 51-year-old male with past medical history of hypertension, coronary artery disease, CHF, ESRD, anemia of chronic disease, atrial fibrillation who presented to hospital with a chief complaint of shortness of breath and generalized weakness for past three days, as per patient patient was not able to get done dialysis due to generalized weakness and possible syncopal episode. Patient also complaining of bleeding in stool that also prompted visit to hospital. Nephrology consultation was done for management of end-stage renal disease. On further evaluation patient's kidney function showed elevated BUN at 32, creatinine 6.25, troponin mildly elevated, BNP high at 2286. X-ray showed pulmonary vascular congestion and presence of AICD. patient also informed that he is on blood thinner Eliquis and Plavix that prompted to possible lower GI bleed. Patient denying any other complaints at this point. Past Medical History hypertension, coronary artery disease, CHF, ESRD, anemia of chronic disease, atrial fibrillation Past Surgical History AICD Patient seen and examined at bedside. Patient is receiving hemodialysis today. No other new complaints. Objective vital signs Vital Sign Date Time Temp Pulse Resp B/P (MAP) Pulse Ox O2 Delivery O2 Flow Rate FiO2 04/13/24 08:48 98.7 86 16 113/77 (89) 90 98.7 04/13/24 08:00 Nasal Cannula* 2 28 Total Intake and Output 04/12/24 04/12/24 04/13/24 15:00 23:00 07:00 Intake Total 0 ml 500 ml Output Total 100 ml Balance -100 ml 500 ml medications Current Medications Medications Dose Ordered Sig/Colleen Route Start Time Stop Time Status Last Admin Dose Admin Ondansetron HCl 4 mg Q4HP PRN IV 04/07/24 22:15 Acetaminophen 650 mg Q6HP PRN PO 04/07/24 22:15 04/10/24 22:18 650 MG Nitroglycerin 0.4 mg Q5MINP PRN SL 04/07/24 22:15 Morphine Sulfate 2 mg Q30M PRN IV 04/07/24 22:15 Atorvastatin Calcium 40 mg HS PO 04/08/24 22:00 04/12/24 21:47 40 MG Amiodarone HCl 200 mg DAILY PO 04/08/24 10:00 04/13/24 08:53 200 MG Sevelamer HCl 800 mg TIDWM PO 04/08/24 08:00 04/13/24 08:53 800 MG Docusate Sodium 100 mg BID PO 04/08/24 10:00 04/13/24 08:53 100 MG Furosemide 20 mg BIDD IV 04/08/24 18:00 04/11/24 17:55 20 MG Pantoprazole Sodium 40 mg BID IV 04/09/24 10:00 04/13/24 08:54 40 MG Metoprolol Tartrate 12.5 mg BID PO 04/12/24 10:00 Sacubitril/ Valsartan 0.5 tab BID PO 04/12/24 10:00 Examination General Appearance: Cooperative. Well developed. Well nourished. NAD Head Exam: Normal inspection Neck Exam: Normal inspection. Non-tender. Normal alignment Pulmonary/Respiratory: Chest non-tender. Clear bilateral breath sounds Cardiovascular/Chest: Regular rate and rhythm. No murmurs. No JVD. Peripheral Pulses: 2+ Radial (R). 2+ Radial (L). 2+ Pedal (R). 2+ Pedal (L) Abdominal Exam: Normal bowel sounds. Soft. Nontender. No hepatospenomegaly. No masses Ankle Exam: Negative ankle edema Lower extremities: Negative lower extremity edema Neuro/Mental Status: A&O x4. Coherent Thoughts/Psych: Normal thought pattern. Appropriate mood and affect. Good judgement and insight Appearance: In no acute distress Skin Exam: Normal inspection. Normal color. Warm. Dry laboratory and microbiology Laboratory Tests 04/13/24 06:38 Test 04/13/24 06:38 Range/Units Serum Glucose 91 74-106 mg/dL Problem List/Assessment/Plan Problem List/Assessment/Plan ESRD on hemodialysis, out of the area Acute on chronic diastolic versus systolic CHF Hypertension Anemia of chronic disease ? Lower GI bleed Coronary artery disease Plan/recommendation -received hemodialysis today. 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 -Regular Monitoring: Ensure frequent monitoring of blood pressure, electrolyte levels, and fluid balance. -renal diet -continue phosphate binder:Sevelamer -rest of the plan per primary care team Plan discussed with: Patient, Other (RN) Dietary Evaluation Review Comments: 1. Continue current diet regime Expected Outcomes/Goals: 1. Pt will consume >75% of estimated needs within 3-5 days ROMAINE MCGOVERN RESIDENT Apr 13, 2024 13:13
--- NOTE | 2024-04-13 14:14 | DVHPN2 ---
Subjective Patient denies any symptoms at this time. Denies having any melena or blood- tinged stools. Reviewed: Care Plan, H&P, Labs, Medications, Previous Orders, Radiology, Other (Consultations) Changes from previous H/P or p: No Changes General: Per HPI Objective Vitals Vital Signs Date Time Temp Pulse Resp B/P (MAP) Pulse Ox O2 Delivery O2 Flow Rate FiO2 04/13/24 13:00 98.7 67 16 123/68 (86) 97 98.7 04/13/24 08:00 Nasal Cannula* 2 28 Intake/Output Intake and Output 04/13/24 07:00 Intake Total 500 ml Output Total 100 ml Balance 400 ml Intake Oral 500 ml Output Urine Total 100 ml # Voids 1 # Bowel Movements 3 General Appearance: Alert, Oriented X3, Cooperative, mild distress HEENT: Atraumatic, PERRLA, Other (Pale) Lungs: Other (Decreased air entry bilateral) Chest/Breasts: Other (Pacemaker in place) Cardiovascular: Regular rate, Normal S1, Normal S2 Abdomen: Normal bowel sounds, Soft, No tenderness Extremities: Other (Right arm AV fistula with good bruit/thrill) Neuro: Normal speech, Cranial nerves 3-12 NL Psych/Mental Status: Mental status NL, Mood NL Medications Current Medications Medications Dose Ordered Sig/Colleen Route Start Time Stop Time Status Last Admin Dose Admin Ondansetron HCl 4 mg Q4HP PRN IV 04/07/24 22:15 Acetaminophen 650 mg Q6HP PRN PO 04/07/24 22:15 04/10/24 22:18 650 MG Nitroglycerin 0.4 mg Q5MINP PRN SL 04/07/24 22:15 Morphine Sulfate 2 mg Q30M PRN IV 04/07/24 22:15 Atorvastatin Calcium 40 mg HS PO 04/08/24 22:00 04/12/24 21:47 40 MG Amiodarone HCl 200 mg DAILY PO 04/08/24 10:00 04/13/24 08:53 200 MG Sevelamer HCl 800 mg TIDWM PO 04/08/24 08:00 04/13/24 08:53 800 MG Docusate Sodium 100 mg BID PO 04/08/24 10:00 04/13/24 08:53 100 MG Furosemide 20 mg BIDD IV 04/08/24 18:00 04/11/24 17:55 20 MG Pantoprazole Sodium 40 mg BID IV 04/09/24 10:00 04/13/24 08:54 40 MG Metoprolol Tartrate 12.5 mg BID PO 04/12/24 10:00 Sacubitril/ Valsartan 0.5 tab BID PO 04/12/24 10:00 Laboratory Results Laboratory Tests 04/13/24 06:38 Chemistry Test 04/13/24 06:38 Albumin 3.3 g/dL (3.2-4.8) Calcium Level 9.9 mg/dL (8.7-10.4) Total Protein 5.7 g/dL (5.7-8.2) LFT Test 04/13/24 06:38 Alanine Aminotransferase (ALT) < 9 U/L (7-40) Alkaline Phosphatase 77 U/L (46-116) Aspartate Amino Transferase (AST) < 8 U/L (13-40) L Total Bilirubin 0.9 mg/dL (0.2-1.0) Urinalysis Test 04/08/24 12:40 Urine Color Light-yellow (Yellow) Urine Clarity Clear (Clear) Urine pH 6.5 (5.0-9.0) Urine Specific [place] 1.008 (1.001-1.035) Urine Protein 1+ (Negative) H Urine Ketones Negative (Negative) Urine Blood 1+ /uL (Negative) H Urine Nitrite Negative (Negative) Urine Bilirubin Negative (Negative) Urine Urobilinogen Normal mg/dL (Negative) Urine Leukocyte Esterase Negative /uL (Negative) Urine RBC 4 /hpf (0 - 3) Urine WBC 5 /hpf (0 - 3) Urine Squamous Epithelial Cells Few /hpf (<5) Urine Bacteria None seen /hpf (None Seen) Urine Glucose Normal mg/dL (Normal) Labs and/or images reviewed: Labs reviewed by me, Image(s) reviewed by me Assessment/Plan Assessment/Plan Impression: -GI bleed -ESRD with hemodialysis -acute on chronic systolic heart failure with ejection fraction 20% -atrial fibrillation with rapid ventricular rate -nonsustained ventricular tachycardia -primary hypertension -dyslipidemia -history of CAD Plan: -assess patient's telemetry rhythm and found the patient to be tachycardic, in atrial fibrillation with a heart rate above 130 beats per minute. Also nonsustained VT was appreciated this morning approximately 9:00 a.m.. Patient denies any more bloody stools. H&H stable. Patient underwent EGD yesterday. -continue clear liquid diet -IV metoprolol 1.25 mg may repeat x1 for AFib with RVR -change metoprolol tartrate to Toprol-XL 25 mg p.o. daily, continue amiodarone -nephrology consultation: Recommendations reviewed -GI consultation: Recommendations reviewed. Continue PPI -cardiology consultation: Recommendations reviewed. We will restart Eliquis and Plavix tomorrow. Patient will stop aspirin -continue goal-directed medical therapy for heart failure -reassess for discharge tomorrow if heart rate is better controlled and H&H stable. Plan of care discussed with the patient who is agreeable to this plan. All questions answered. Critical care time spent with patient discussing and formulating plan of care: 40 minutes. This does not include time spent performing procedures. Total time spent with patient and family regarding advance care plannin minutes. This medical document was created using an electronic medical record system with [employer] dictation system. Although this document has been carefully reviewed, there may still be some phonetic and typographical errors. These areas are purely typographical due to imperfections of the software programs, and do not reflect any compromise in the patient's medical care. Plan discussed with: Patient, Other (RN) Date of Service: Apr 13, 2024 Billing Provider: MONIQUE MACDONALD NP Common Visit Codes: 09943-[id number] CARE 30-74 MIN Secondary Visit Codes: 33448-[id number] CARE PLAN 30 MINUTES MONIQUE MACDONALD NP Apr 13, 2024 14:14
[2024-04-13] MEDS: METOPROLOL TARTRATE 1MG/1ML-5ML VIAL IV ONE (14:15)
--- NOTE | 2024-04-13 22:22 | DVHPN2 ---
Progress Note - Dictate Date Seen: Apr 13, 2024 Medical Necessity Reason Pt with a Central, PICC or Fol: No Subjective No GIB noted. Hb stable vital signs Vital Sign Date Time Temp Pulse Resp B/P (MAP) Pulse Ox O2 Delivery O2 Flow Rate FiO2 04/13/24 20:00 85 04/13/24 20:00 Nasal Cannula* 2 28 04/13/24 17:00 97.8 16 103/61 (75) 92 97.8 Total Intake and Output 04/12/24 04/12/24 04/13/24 15:00 23:00 07:00 Intake Total 0 ml 500 ml Output Total 100 ml Balance -100 ml 500 ml medications Current Medications Medications Dose Ordered Sig/Colleen Route Start Time Stop Time Status Last Admin Dose Admin Ondansetron HCl 4 mg Q4HP PRN IV 04/07/24 22:15 Acetaminophen 650 mg Q6HP PRN PO 04/07/24 22:15 04/10/24 22:18 650 MG Nitroglycerin 0.4 mg Q5MINP PRN SL 04/07/24 22:15 Morphine Sulfate 2 mg Q30M PRN IV 04/07/24 22:15 Atorvastatin Calcium 40 mg HS PO 04/08/24 22:00 04/13/24 21:51 40 MG Amiodarone HCl 200 mg DAILY PO 04/08/24 10:00 04/13/24 08:53 200 MG Sevelamer HCl 800 mg TIDWM PO 04/08/24 08:00 04/13/24 08:53 800 MG Docusate Sodium 100 mg BID PO 04/08/24 10:00 04/13/24 21:51 100 MG Pantoprazole Sodium 40 mg BID IV 04/09/24 10:00 04/13/24 21:51 40 MG Sacubitril/ Valsartan 0.5 tab BID PO 04/12/24 10:00 Metoprolol Succinate 25 mg DAILY PO 04/14/24 10:00 objective GE: in no distress CVS: S1S2+ Lungs: crackles noted Abdomen: soft, non-distended, non-tender, BS+ laboratory and microbiology Laboratory Tests 04/13/24 06:38 Test 04/13/24 06:38 Range/Units Serum Glucose 91 74-106 mg/dL Assessment/Plan #Chronic anemia #??Melena #HFrEF #Acute resp failure #ESRD -s/p EGD, 04/12/24. Refer to report for details. F/u pathology results -Monitor Hb, keep >8 -Per pt, had normal colonoscopy 2 yrs ago. Consider repeat colo, if any active GIB or Hb drop noted -Care plan discussed with pt in detail Thank you for allowing me to participate in the care of this pt. Dietary Evaluation Review Comments: 1. Continue current diet regime Expected Outcomes/Goals: 1. Pt will consume >75% of estimated needs within 3-5 days Plan discussed with: Patient CATARINA MCGARRY MD Apr 13, 2024 22:22
[2024-04-14] VITALS (9 sets, daily range): BP systolic 114–127; BP diastolic 61–82; PULSE 69–135; RESP 16–20; TEMP 97.2–98.7; O2SAT 93–100
[2024-04-14 06:52] LABS: Basophils # (auto) 0 10 ^3/uL (0-0.2); Eosinophils # (auto) 0.3 10 ^3/uL (0-0.8); Monocytes # (auto) 0.3 10 ^3/uL (0-1.3); Neutrophils # (auto) 2.2 10 ^3/uL (1.6-8.6); White Blood Cell 3.1 10^3/uL (4.4-10.8)
[2024-04-14 06:54] LABS: Basophils % (auto) 1.1 % (0.0-2.0); Hematocrit 31.6 % (41.0-53.0); Lymphocytes # (auto) 0.3 10 ^3/uL (0.4-5.4); Lymphocytes % (auto) 10.4 % (10.0-50.0); Mean Corpuscular Hemoglobin 31.8 pg (28.0-32.0); Mean Corpuscular Hgb Conc. 31.7 g/dL (32.0-36.0); Monocytes % (auto) 10.3 % (0.0-12.0); Neutrophils % (auto) 70.2 % (37.0-80.0); Nucleated Red Blood Cells % 0.2 %; Platelet Count (auto) 65 10^3/uL (140-450); Red Blood Cells 3.16 10^6/uL (4.5-5.90); Red Cell Distribution Width 19.4 % (11.8-14.3)
[2024-04-14 07:09] LABS: Chloride 99 mmol/L (98-107); Potassium 4.2 mmol/L (3.5-5.1); Sodium 135 mmol/L (136-145)
[2024-04-14 07:10] LABS: Anion Gap 6 (5-15); Calcium 9.5 mg/dL (8.7-10.4); Carbon Dioxide 30 mmol/L (20-31)
[2024-04-14 07:15] LABS: BUN/Creatinine Ratio 4.3 (10.0-20.0); Blood Urea Nitrogen 22 mg/dL (9-23); Glucose 97 mg/dL (74-106)
[2024-04-14] MEDS: SODIUM CHL 0.9% 1000 ML BAG XX ONE ×2 (08:25)
[2024-04-14] MEDS: METOPROLOL SUCCINATE XL 50 MG TAB PO SCH (09:30)
[2024-04-14] MEDS: METOPROLOL TARTRATE 1MG/1ML-5ML VIAL IV ONE (12:50)
--- NOTE | 2024-04-14 13:47 | DVHPN2 ---
Progress Note Date Seen: Apr 14, 2024 Resident Creating Document: ROMAINE MCGOVERN RESIDENT Medical Necessity Reason Pt with a Central, PICC or Fol: No Subjective Review of Systems History of Present Illness Patient is 51-year-old male with past medical history of hypertension, coronary artery disease, CHF, ESRD, anemia of chronic disease, atrial fibrillation who presented to hospital with a chief complaint of shortness of breath and generalized weakness for past three days, as per patient patient was not able to get done dialysis due to generalized weakness and possible syncopal episode. Patient also complaining of bleeding in stool that also prompted visit to hospital. Nephrology consultation was done for management of end-stage renal disease. On further evaluation patient's kidney function showed elevated BUN at 32, creatinine 6.25, troponin mildly elevated, BNP high at 2286. X-ray showed pulmonary vascular congestion and presence of AICD. patient also informed that he is on blood thinner Eliquis and Plavix that prompted to possible lower GI bleed. Patient denying any other complaints at this point. Past Medical History hypertension, coronary artery disease, CHF, ESRD, anemia of chronic disease, atrial fibrillation Past Surgical History AICD Patient seen and examined at bedside. No other new complaints. Objective vital signs Vital Sign Date Time Temp Pulse Resp B/P (MAP) Pulse Ox O2 Delivery O2 Flow Rate FiO2 04/14/24 13:11 97.8 69 17 118/74 (89) 100 97.8 04/14/24 08:05 Nasal Cannula* 2 28 Total Intake and Output 04/13/24 04/13/24 04/14/24 15:00 23:00 07:00 Intake Total 1375 ml 400 ml Output Total 175 ml 40 ml Balance 1200 ml 360 ml medications Current Medications Medications Dose Ordered Sig/Colleen Route Start Time Stop Time Status Last Admin Dose Admin Ondansetron HCl 4 mg Q4HP PRN IV 04/07/24 22:15 Acetaminophen 650 mg Q6HP PRN PO 04/07/24 22:15 04/10/24 22:18 650 MG Nitroglycerin 0.4 mg Q5MINP PRN SL 04/07/24 22:15 Morphine Sulfate 2 mg Q30M PRN IV 04/07/24 22:15 Atorvastatin Calcium 40 mg HS PO 04/08/24 22:00 04/13/24 21:51 40 MG Sevelamer HCl 800 mg TIDWM PO 04/08/24 08:00 04/14/24 12:00 800 MG Docusate Sodium 100 mg BID PO 04/08/24 10:00 04/14/24 09:30 100 MG Pantoprazole Sodium 40 mg BID IV 04/09/24 10:00 04/14/24 09:29 40 MG Sacubitril/ Valsartan 0.5 tab BID PO 04/12/24 10:00 04/14/24 09:31 0.5 TAB Metoprolol Succinate 25 mg DAILY PO 04/14/24 10:00 04/14/24 09:30 25 MG Amiodarone HCl 400 mg DAILY PO 04/15/24 10:00 Examination General Appearance: Cooperative. Well developed. Well nourished. NAD Head Exam: Normal inspection Neck Exam: Normal inspection. Non-tender. Normal alignment Pulmonary/Respiratory: Chest non-tender. Clear bilateral breath sounds Cardiovascular/Chest: Regular rate and rhythm. No murmurs. No JVD. Peripheral Pulses: 2+ Radial (R). 2+ Radial (L). 2+ Pedal (R). 2+ Pedal (L) Abdominal Exam: Normal bowel sounds. Soft. Nontender. No hepatospenomegaly. No masses Ankle Exam: Negative ankle edema Lower extremities: Negative lower extremity edema Neuro/Mental Status: A&O x4. Coherent Thoughts/Psych: Normal thought pattern. Appropriate mood and affect. Good judgement and insight Appearance: In no acute distress Skin Exam: Normal inspection. Normal color. Warm. Dry laboratory and microbiology Laboratory Tests 04/14/24 04:33 Test 04/14/24 04:33 Range/Units Serum Glucose 97 74-106 mg/dL Problem List/Assessment/Plan Problem List/Assessment/Plan ESRD on hemodialysis, out of the area Acute on chronic diastolic versus systolic CHF Hypertension Anemia of chronic disease ? Lower GI bleed Coronary artery disease Plan/recommendation -received hemodialysis yesterday. Per patient he will follow with his phytopathologist for hemodialysis after getting discharged. reevaluate tomorrow. -Regular Monitoring: Ensure frequent monitoring of blood pressure, electrolyte levels, and fluid balance. -renal diet -continue phosphate binder:Sevelamer -rest of the plan per primary care team Plan discussed with: Patient, Other (RN) Dietary Evaluation Review Comments: 1. Continue current diet regime Expected Outcomes/Goals: 1. Pt will consume >75% of estimated needs within 3-5 days ROMAINE MCGOVERN RESIDENT Apr 14, 2024 13:47
--- NOTE | 2024-04-14 16:41 | DVHDS2 ---
Discharge Summary Date of Admission Apr 07, 2024 at 22:02 Date of Discharge: Apr 14, 2024 Admitting Diagnosis ESRD Labs/Diagnostic Data: Laboratory Results Test 04/14/24 04:33 04/13/24 06:38 04/10/24 06:39 04/09/24 14:45 White Blood Count 3.1 10^3/uL (4.4-10.8) Red Blood Count 3.16 10^6/uL (4.5-5.90) Hemoglobin 10.0 g/dL (13.5-17.5) Hematocrit 31.6 % (41.0-53.0) Mean Corpuscular Volume 100.0 fL (80.0-100.0) Mean Corpuscular Hemoglobin 31.8 pg (28.0-32.0) Mean Corpuscular Hemoglobin Concent 31.7 g/dL (32.0-36.0) Red Cell Distribution Width 19.4 % (11.8-14.3) Platelet Count 65 10^3/uL (140-450) Mean Platelet Volume 8.1 fL (6.9-10.8) Neutrophils (%) (Auto) 70.2 % (37.0-80.0) Lymphocytes (%) (Auto) 10.4 % (10.0-50.0) Monocytes (%) (Auto) 10.3 % (0.0-12.0) Eosinophils (%) (Auto) 8.0 % (0.0-7.0) Basophils (%) (Auto) 1.1 % (0.0-2.0) Neutrophils # (Auto) 2.2 10 ^3/uL (1.6-8.6) Lymphocytes # (Auto) 0.3 10 ^3/uL (0.4-5.4) Monocytes # (Auto) 0.3 10 ^3/uL (0-1.3) Eosinophils # (Auto) 0.3 10 ^3/uL (0-0.8) Basophils # (Auto) 0 10 ^3/uL (0-0.2) Nucleated Red Blood Cells 0.2 % Sodium Level 135 mmol/L (136-145) Potassium Level 4.2 mmol/L (3.5-5.1) Chloride Level 99 mmol/L (98-107) Carbon Dioxide Level 30 mmol/L (20-31) Anion Gap 6 (5-15) Blood Urea Nitrogen 22 mg/dL (9-23) Creatinine 5.10 mg/dL (0.700-1.30) Glomerular Filtration Rate Calc 12 mL/min (>90) BUN/Creatinine Ratio 4.3 (10.0-20.0) Serum Glucose 97 mg/dL (74-106) Calcium Level 9.5 mg/dL (8.7-10.4) Total Bilirubin 0.9 mg/dL (0.2-1.0) Aspartate Amino Transferase (AST) < 8 U/L (13-40) Alanine Aminotransferase (ALT) < 9 U/L (7-40) Alkaline Phosphatase 77 U/L (46-116) Total Protein 5.7 g/dL (5.7-8.2) Albumin 3.3 g/dL (3.2-4.8) Hepatitis A IgM Antibody Negative Hepatitis B Surface Antigen Negative (Negative) Hepatitis B Core IgM Antibody Negative Hepatitis C Antibody Negative (Negative) Stool Occult Blood Negative (Negative) Stool Occult Blood Sample #3 (Negative) Test 04/09/24 09:29 04/09/24 06:55 04/08/24 12:40 04/08/24 05:17 Free Prostate Specific Antigen <0.02 ng/mL (N/A) Percent Free Prostate Specific Ag % (.) Prostate Specific Antigen Total <0.1 ng/mL (0.0-4.0) Magnesium Level 2.3 mg/dL (1.6-2.6) Urine Color Light-yellow (Yellow) Urine Clarity Clear (Clear) Urine pH 6.5 (5.0-9.0) Urine Specific [place] 1.008 (1.001-1.035) Urine Protein 1+ (Negative) Urine Ketones Negative (Negative) Urine Blood 1+ /uL (Negative) Urine Nitrite Negative (Negative) Urine Bilirubin Negative (Negative) Urine Urobilinogen Normal mg/dL (Negative) Urine Leukocyte Esterase Negative /uL (Negative) Urine RBC 4 /hpf (0 - 3) Urine WBC 5 /hpf (0 - 3) Urine Squamous Epithelial Cells Few /hpf (<5) Urine Bacteria None seen /hpf (None Seen) Urine Glucose Normal mg/dL (Normal) Phosphorus Level 5.3 mg/dL (2.4-5.1) Parathyroid Hormone (Intact) 51.8 pg/mL (18.4-80.1) Test 04/07/24 21:32 04/07/24 17:26 Troponin I High Sensitivity 68 ng/L (</=54) Platelet Estimate Decreased Anisocytosis (manual) Slight Prothrombin Time 14.3 sec (9.3-11.8) Prothrombin Time INR 1.38 (0.9-1.15) Activated Partial Thromboplast Time 29.6 SEC (24.5-34.5) B-Type Natriuretic Peptide 2286.59 pg/mL (0-100) Other Laboratory Tests 04/14/24 04:33 Brief Hx & Hospital Course: History of Present Illness 64-year-old male presents for evaluation of shortness for breath. Patient endorses generalized weakness and shortness for breath over the past three days. He was not able attend his dialysis session yesterday due to the weakness. He also reports constipation for three days. He reports noticing small amount of blood yesterday as after having bowel movement. Reports only syncopal episode. Denies chest pain or palpitations. No other acute complaints reported. Course of hospitalization: Nephrology consultation was placed. Patient had hemodialysis while in the hospital. Patient was weaned off of oxygen. Patient also reports having melena stools, with FOBT being negative. H&H has been stable. Antiplatelet and anticoagulation has been held while in the hospital. GI consultation has been obtained, with the patient undergoing EGD, with no active bleeding noted. Long discussion was made with the patient regarding his shortness of breath. Apparently, the patient was ejection fraction is 20%. He states that at home his shortness of breath exacerbates despite having adequate fluid removed during hemodialysis. The patient probably has worsening [place] heart failure classification. Cardiology consultation was obtained. Goal-directed medical therapy was started. He was also noted that the patient's right ventricular pressures are elevated, with possible underlying pulmonary hypertension. This was also discussed with the patient. He was instructed to follow up with his PCP in 1-2 weeks and continue with his established hemodialysis chair time. Patient was also restart Plavix and Eliquis and to stop taking aspirin. Physical examination General: Alert and Oriented x3. No acute distress. Well-nourished. Eyes: EOMI. Anicteric. HENT: Moist mucous membranes. Lungs: Clear to auscultation bilaterally. No accessory muscle use. Cardiovascular: Regular rate and rhythm. No murmur. No JVD. Abdomen: Soft, non-tender and non-distended. No palpable masses. Extremities: No edema. Non-tender. Skin: No rashes or lesions. Warm. Neurologic: No focal neurological deficits. CN II-XII grossly intact, but not individually tested. Psychiatric: Cooperative. Appropriate mood and affect. Total time spent with patient discussing and formulating plan of care: 35 minutes. This medical document was created using an electronic medical record system with [employer] dictation system. Although this document has been carefully reviewed, there may still be some phonetic and typographical errors. These areas are purely typographical due to imperfections of the software programs, and do not reflect any compromise in the patient's medical care. Consults/Reason for consult Gastroenterology: Questionable GI bleed Cardiology: Decompensated heart failure Operations or Procedures 04/12/2024: EGD Condition at Discharge: Poor Final Diagnosis/Problems List ESRD with GI Bleed Ruled out Secondary Diagnosis: -GI bleed -ESRD with hemodialysis -acute on chronic systolic heart failure with ejection fraction 20% -atrial fibrillation with rapid ventricular rate -nonsustained ventricular tachycardia -primary hypertension -dyslipidemia -history of CAD Discharge Disposition: Home Discharge Instruct/Medications Diet: Cardiac 2g Na,low cholest, Renal Activity: No Restrictions, As Tolerated Medications: continue all home medications May restart Eliquis and Plavix. Hold aspirin 36 Discharge Statement: "Patient was advised to return to the ER or call 911 if any headaches, dizziness, shortness of breath, chest pain, abdominal pain, bleeding, fevers, or worsening of medical condition. Patient was counseled about treatment plan, medications, possible side effects, patientverbalized understanding. All questions were answered to the best of my ability. This discharge took greater then 30 minutes in planning, reviewing documentation, counseling the patient, and discussing with other team members." ASSESSMENT ASSESSMENT Assessment ESRD with GI Bleed Ruled out Date of Service: Apr 14, 2024 Billing Provider: MONIQUE MACDONALD NP Common Visit Codes: [id number] DISCH DAY >30min MONIQUE MACDONALD NP Apr 14, 2024 16:41
--- NOTE | 2024-04-14 17:29 | DVHPN2 ---
Progress Note - Dictate Date Seen: Apr 14, 2024 Medical Necessity Reason Pt with a Central, PICC or Fol: No Subjective No GIB noted. Hb stable vital signs Vital Sign Date Time Temp Pulse Resp B/P (MAP) Pulse Ox O2 Delivery O2 Flow Rate FiO2 04/14/24 13:11 97.8 69 17 118/74 (89) 100 97.8 04/14/24 08:05 Nasal Cannula* 2 28 Total Intake and Output 04/13/24 04/13/24 04/14/24 15:00 23:00 07:00 Intake Total 1375 ml 400 ml Output Total 175 ml 40 ml Balance 1200 ml 360 ml medications Current Medications Medications Dose Ordered Sig/Colleen Route Start Time Stop Time Status Last Admin Dose Admin Ondansetron HCl 4 mg Q4HP PRN IV 04/07/24 22:15 Acetaminophen 650 mg Q6HP PRN PO 04/07/24 22:15 04/10/24 22:18 650 MG Nitroglycerin 0.4 mg Q5MINP PRN SL 04/07/24 22:15 Morphine Sulfate 2 mg Q30M PRN IV 04/07/24 22:15 Atorvastatin Calcium 40 mg HS PO 04/08/24 22:00 04/13/24 21:51 40 MG Sevelamer HCl 800 mg TIDWM PO 04/08/24 08:00 04/14/24 12:00 800 MG Docusate Sodium 100 mg BID PO 04/08/24 10:00 04/14/24 09:30 100 MG Pantoprazole Sodium 40 mg BID IV 04/09/24 10:00 04/14/24 09:29 40 MG Sacubitril/ Valsartan 0.5 tab BID PO 04/12/24 10:00 04/14/24 09:31 0.5 TAB Metoprolol Succinate 25 mg DAILY PO 04/14/24 10:00 04/14/24 09:30 25 MG Amiodarone HCl 400 mg DAILY PO 04/15/24 10:00 objective GE: in no distress CVS: S1S2+ Lungs: crackles noted Abdomen: soft, non-distended, non-tender, BS+ laboratory and microbiology Laboratory Tests 04/14/24 04:33 Test 04/14/24 04:33 Range/Units Serum Glucose 97 74-106 mg/dL Assessment/Plan #Chronic anemia #??Melena #HFrEF #Acute resp failure #ESRD -s/p EGD, 04/12/24. Refer to report for details. F/u pathology results -Monitor Hb, keep >8 -Per pt, had normal colonoscopy 2 yrs ago. Consider repeat colo, if any active GIB or Hb drop noted -Care plan discussed with pt in detail Thank you for allowing me to participate in the care of this pt. Dietary Evaluation Review Comments: 1. Continue current diet regime Expected Outcomes/Goals: 1. Pt will consume >75% of estimated needs within 3-5 days Plan discussed with: Patient CATARINA MCGARRY MD Apr 14, 2024 17:29
[2024-04-15 01:00] VITALS: BP 115/65; PULSE 70; RESP 20; O2SAT 100
[2024-04-15 05:00] VITALS: BP 114/66; PULSE 69; RESP 20; TEMP 98; O2SAT 99
[2024-04-15 06:51] LABS: Basophils # (auto) 0 10 ^3/uL (0-0.2); Basophils % (auto) 1.2 % (0.0-2.0); Eosinophils # (auto) 0.3 10 ^3/uL (0-0.8); Eosinophils % (auto) 7.9 % (0.0-7.0); Hematocrit 29.9 % (41.0-53.0); Hemoglobin 9.6 g/dL (13.5-17.5); Lymphocytes # (auto) 0.3 10 ^3/uL (0.4-5.4); Mean Corpuscular Hemoglobin 31.3 pg (28.0-32.0); Mean Corpuscular Hgb Conc. 32.2 g/dL (32.0-36.0); Mean Corpuscular Volume 97.2 fL (80.0-100.0); Monocytes # (auto) 0.4 10 ^3/uL (0-1.3); Monocytes % (auto) 10.5 % (0.0-12.0); Neutrophils # (auto) 2.6 10 ^3/uL (1.6-8.6); Neutrophils % (auto) 72.4 % (37.0-80.0); Platelet Count (auto) 66 10^3/uL (140-450); Red Blood Cells 3.07 10^6/uL (4.5-5.90); Red Cell Distribution Width 18.8 % (11.8-14.3); White Blood Cell 3.7 10^3/uL (4.4-10.8)
[2024-04-15 08:00] VITALS: PULSE 73; RESP 19
[2024-04-15 09:00] VITALS: BP 111/64; PULSE 73; RESP 16; TEMP 97.8; O2SAT 97
[2024-04-15] MEDS: AMIODARONE HCL 200 MG TAB PO SCH (09:28)
--- NOTE | 2024-04-15 11:50 | DVHPN2 ---
Progress Note Date Seen: Apr 15, 2024 Resident Creating Document: ROMAINE MCGOVERN RESIDENT Medical Necessity Reason Pt with a Central, PICC or Fol: No Subjective Review of Systems Patient is 51-year-old male with past medical history of hypertension, coronary artery disease, CHF, ESRD, anemia of chronic disease, atrial fibrillation who presented to hospital with a chief complaint of shortness of breath and generalized weakness for past three days, as per patient patient was not able to get done dialysis due to generalized weakness and possible syncopal episode. Patient also complaining of bleeding in stool that also prompted visit to hospital. Nephrology consultation was done for management of end-stage renal disease. On further evaluation patient's kidney function showed elevated BUN at 32, creatinine 6.25, troponin mildly elevated, BNP high at 2286. X-ray showed pulmonary vascular congestion and presence of AICD. patient also informed that he is on blood thinner Eliquis and Plavix that prompted to possible lower GI bleed. Patient denying any other complaints at this point. Past Medical History hypertension, coronary artery disease, CHF, ESRD, anemia of chronic disease, atrial fibrillation Past Surgical History AICD Patient seen and examined at bedside. No other new complaints. Patient has been discharged, patient will receive hemodialysis with his current geodesist. No need to arrange chair time. Objective vital signs Vital Sign Date Time Temp Pulse Resp B/P (MAP) Pulse Ox O2 Delivery O2 Flow Rate FiO2 04/15/24 09:27 73 111/64 04/15/24 09:00 97.8 16 97 97.8 04/15/24 08:00 Nasal Cannula* 2 28 Total Intake and Output 04/14/24 04/14/24 04/15/24 15:00 23:00 07:00 Intake Total 425 ml 800 ml Output Total 125 ml Balance 300 ml 800 ml medications Current Medications Medications Dose Ordered Sig/Colleen Route Start Time Stop Time Status Last Admin Dose Admin Ondansetron HCl 4 mg Q4HP PRN IV 04/07/24 22:15 Acetaminophen 650 mg Q6HP PRN PO 04/07/24 22:15 04/10/24 22:18 650 MG Nitroglycerin 0.4 mg Q5MINP PRN SL 04/07/24 22:15 Morphine Sulfate 2 mg Q30M PRN IV 04/07/24 22:15 Atorvastatin Calcium 40 mg HS PO 04/08/24 22:00 04/14/24 21:08 40 MG Sevelamer HCl 800 mg TIDWM PO 04/08/24 08:00 04/15/24 08:30 800 MG Docusate Sodium 100 mg BID PO 04/08/24 10:00 04/15/24 09:29 100 MG Pantoprazole Sodium 40 mg BID IV 04/09/24 10:00 04/15/24 09:29 40 MG Sacubitril/ Valsartan 0.5 tab BID PO 04/12/24 10:00 04/15/24 09:28 0.5 TAB Metoprolol Succinate 25 mg DAILY PO 04/14/24 10:00 04/15/24 09:27 25 MG Amiodarone HCl 400 mg DAILY PO 04/15/24 10:00 04/15/24 09:28 400 MG Examination General Appearance: Cooperative. Well developed. Well nourished. NAD Head Exam: Normal inspection Neck Exam: Normal inspection. Non-tender. Normal alignment Pulmonary/Respiratory: Chest non-tender. Clear bilateral breath sounds Cardiovascular/Chest: Regular rate and rhythm. No murmurs. No JVD. Peripheral Pulses: 2+ Radial (R). 2+ Radial (L). 2+ Pedal (R). 2+ Pedal (L) Abdominal Exam: Normal bowel sounds. Soft. Nontender. No hepatospenomegaly. No masses Ankle Exam: Negative ankle edema Lower extremities: Negative lower extremity edema Neuro/Mental Status: A&O x4. Coherent Thoughts/Psych: Normal thought pattern. Appropriate mood and affect. Good judgement and insight Appearance: In no acute distress Skin Exam: Normal inspection. Normal color. Warm. Dry laboratory and microbiology Laboratory Tests 04/15/24 05:48 04/14/24 04:33 Test 04/14/24 04:33 Range/Units Serum Glucose 97 74-106 mg/dL Problem List/Assessment/Plan Problem List/Assessment/Plan ESRD on hemodialysis, out of the area Acute on chronic diastolic versus systolic CHF Hypertension Anemia of chronic disease ? Lower GI bleed Coronary artery disease Plan/recommendation -has been discharged in Per patient he will follow with his geodesist for hemodialysis after getting discharged. -Regular Monitoring: Ensure frequent monitoring of blood pressure, electrolyte levels, and fluid balance. -renal diet -continue phosphate binder:Sevelamer -rest of the plan per primary care team Plan discussed with: Patient, Other (RN) Dietary Evaluation Review Comments: 1. Continue current diet regime Expected Outcomes/Goals: 1. Pt will consume >75% of estimated needs within 3-5 days ROMAINE MCGOVERN RESIDENT Apr 15, 2024 11:50
[2024-04-15 13:00] VITALS: BP 119/71; PULSE 64; RESP 16; TEMP 97.9; O2SAT 97
--- NOTE | 2024-04-15 14:37 | DVHPN2 ---
Subjective Patient denies any symptoms at this time. Denies having any melena or blood- tinged stools. Reviewed: Care Plan, H&P, Labs, Medications, Previous Orders, Radiology, Other (Consultations) Changes from previous H/P or p: No Changes General: Per HPI Objective Vitals Vital Signs Date Time Temp Pulse Resp B/P (MAP) Pulse Ox O2 Delivery O2 Flow Rate FiO2 04/15/24 13:00 97.9 64 16 119/71 (87) 97 97.9 04/15/24 08:00 Nasal Cannula* 2 28 Intake/Output Intake and Output 04/15/24 07:00 Intake Total 1225 ml Output Total 125 ml Balance 1100 ml Intake Oral 1225 ml Output Urine Total 125 ml # Bowel Movements 2 General Appearance: Alert, Oriented X3, Cooperative, mild distress HEENT: Atraumatic, PERRLA, Other (Pale) Lungs: Other (Decreased air entry bilateral) Chest/Breasts: Other (Pacemaker in place) Cardiovascular: Regular rate, Normal S1, Normal S2 Abdomen: Normal bowel sounds, Soft, No tenderness Extremities: Other (Right arm AV fistula with good bruit/thrill) Neuro: Normal speech, Cranial nerves 3-12 NL Psych/Mental Status: Mental status NL, Mood NL Medications Current Medications Medications Dose Ordered Sig/Colleen Route Start Time Stop Time Status Last Admin Dose Admin Ondansetron HCl 4 mg Q4HP PRN IV 04/07/24 22:15 Acetaminophen 650 mg Q6HP PRN PO 04/07/24 22:15 04/10/24 22:18 650 MG Nitroglycerin 0.4 mg Q5MINP PRN SL 04/07/24 22:15 Morphine Sulfate 2 mg Q30M PRN IV 04/07/24 22:15 Atorvastatin Calcium 40 mg HS PO 04/08/24 22:00 04/14/24 21:08 40 MG Sevelamer HCl 800 mg TIDWM PO 04/08/24 08:00 04/15/24 13:28 800 MG Docusate Sodium 100 mg BID PO 04/08/24 10:00 04/15/24 09:29 100 MG Pantoprazole Sodium 40 mg BID IV 04/09/24 10:00 04/15/24 09:29 40 MG Sacubitril/ Valsartan 0.5 tab BID PO 04/12/24 10:00 04/15/24 09:28 0.5 TAB Metoprolol Succinate 25 mg DAILY PO 04/14/24 10:00 04/15/24 09:27 25 MG Amiodarone HCl 400 mg DAILY PO 04/15/24 10:00 04/15/24 09:28 400 MG Laboratory Results Laboratory Tests 04/14/24 04:33 04/15/24 05:48 Urinalysis Test 04/08/24 12:40 Urine Color Light-yellow (Yellow) Urine Clarity Clear (Clear) Urine pH 6.5 (5.0-9.0) Urine Specific [place] 1.008 (1.001-1.035) Urine Protein 1+ (Negative) H Urine Ketones Negative (Negative) Urine Blood 1+ /uL (Negative) H Urine Nitrite Negative (Negative) Urine Bilirubin Negative (Negative) Urine Urobilinogen Normal mg/dL (Negative) Urine Leukocyte Esterase Negative /uL (Negative) Urine RBC 4 /hpf (0 - 3) Urine WBC 5 /hpf (0 - 3) Urine Squamous Epithelial Cells Few /hpf (<5) Urine Bacteria None seen /hpf (None Seen) Urine Glucose Normal mg/dL (Normal) Labs and/or images reviewed: Labs reviewed by me, Image(s) reviewed by me Assessment/Plan Assessment/Plan Impression: -GI bleed -ESRD with hemodialysis -acute on chronic systolic heart failure with ejection fraction 20% -atrial fibrillation with rapid ventricular rate -nonsustained ventricular tachycardia -primary hypertension -dyslipidemia -history of CAD Plan: -assess patient's telemetry rhythm and found the patient to be tachycardic, in atrial fibrillation with a heart rate above 130 beats per minute. Also nonsustained VT was appreciated this morning approximately 9:00 a.m.. Patient denies any more bloody stools. H&H stable. Patient underwent EGD yesterday. -continue clear liquid diet -IV metoprolol 1.25 mg may repeat x1 for AFib with RVR -change metoprolol tartrate to Toprol-XL 25 mg p.o. daily, continue amiodarone -nephrology consultation: Recommendations reviewed -GI consultation: Recommendations reviewed. Continue PPI -cardiology consultation: Recommendations reviewed. We will restart Eliquis and Plavix tomorrow. Patient will stop aspirin -continue goal-directed medical therapy for heart failure -patient was discharged yesterday, held. Plans for discharge today after all social service issues has been arranged. Total time spent with patient discussing and formulating plan of care: 35 minutes. This medical document was created using an electronic medical record system with [employer] dictation system. Although this document has been carefully reviewed, there may still be some phonetic and typographical errors. These areas are purely typographical due to imperfections of the software programs, and do not reflect any compromise in the patient's medical care. Plan discussed with: Patient, Other (RN) My Orders Orders - MONIQUE MACDONALD NP Procedure Category Date Status Time Discharge DISCHARGE 04/14/24 Transmitted 15:45 * Cardiac Cath Lab Radiology Technologist CONS 04/14/24 Transmitted Consult Date of Service: Apr 15, 2024 Billing Provider: MONIQUE MACDONALD NP Common Visit Codes: [id number] INP/OBS CARE(MOD) MONIQUE MACDONALD NP Apr 15, 2024 14:37
== END 2024-04-15 15:58 | disposition home or self-care (01) | DRG 280 ==
LOC: ER 16:31 → EDBD 16:31 → TELE 22:02 → TELE-WESTW 23:53
PROVIDERS: ADMIT Nurse Practitioner; ATTEND Nurse Practitioner Acute Care
PROC: 5A1D70Z Performance of Urinary Filtration, Intermittent, Less than 6 Hours Per Day (ICD-10-PCS; 2024-04-08)
PROC: 5A1D70Z Performance of Urinary Filtration, Intermittent, Less than 6 Hours Per Day (ICD-10-PCS; 2024-04-10)
PROC: 0DB78ZX Excision of Stomach, Pylorus, Via Natural or Artificial Opening Endoscopic, Diagnostic (ICD-10-PCS; 2024-04-12)
PROC: 0DB68ZX Excision of Stomach, Via Natural or Artificial Opening Endoscopic, Diagnostic (ICD-10-PCS; 2024-04-12)
PROC: 0DB98ZX Excision of Duodenum, Via Natural or Artificial Opening Endoscopic, Diagnostic (ICD-10-PCS; principal; 2024-04-12 17:59)
PROC: 5A1D70Z Performance of Urinary Filtration, Intermittent, Less than 6 Hours Per Day (ICD-10-PCS; 2024-04-13)
DX: I13.2 Hypertensive heart and chronic kidney disease with heart failure and with stage 5 chronic kidney disease, or end stage renal disease (principal); I50.23 Acute on chronic systolic (congestive) heart failure; I21.A1 Myocardial infarction type 2; J96.01 Acute respiratory failure with hypoxia; N18.6 End stage renal disease; D68.9 Coagulation defect, unspecified; D61.818 Other pancytopenia; I47.20 Ventricular tachycardia, unspecified; I48.20 Chronic atrial fibrillation, unspecified; K59.01 Slow transit constipation; D63.1 Anemia in chronic kidney disease; K60.2 Anal fissure, unspecified; I25.10 Atherosclerotic heart disease of native coronary artery without angina pectoris; I07.1 Rheumatic tricuspid insufficiency; I25.5 Ischemic cardiomyopathy; I27.20 Pulmonary hypertension, unspecified; D69.6 Thrombocytopenia, unspecified; E66.3 Overweight; E78.5 Hyperlipidemia, unspecified; Z99.2 Dependence on renal dialysis; Z95.810 Presence of automatic (implantable) cardiac defibrillator; Z79.02 Long term (current) use of antithrombotics/antiplatelets; Z68.25 Body mass index [BMI] 25.0-25.9, adult; Z79.01 Long term (current) use of anticoagulants
CPT/HCPCS: 36415; 71045; 76705; 80048; 80053; 80074; 81001; 82270; 82306; 83735; 83880; 83970; 84100; 84154; 84484; 85025; 85610; 85730; 86850; 86900; 86901; 90935; 93005; 93306; G0378; J2250; J2470

== ENCOUNTER 2024-04-15 22:05 | Inpatient (IN) | payer OTHER ==
[~2024-04-15] VITALS: Ht 167.6 cm; Wt 75.9 kg
[~2024-04-15 22:05] MED LIST changes: +DAPA1TAB4 PO
--- NOTE | 2024-04-15 22:27 | ED.PDOC ---
History of Present Illness HPI Comments A 64 year old male brought in by EMS presents to the ED with a chief complaint of generalized weakness onset today. Per EMS, patient was discharged from this hospital today around 16:00. Once patient arrived home he began experiencing generalized weakness, went to the bathroom and noticed dizziness. Upon EMS arrival, BP was 56/41, tachycardiac with 130 bpm. Prior to ED arrival patient was given 300 mL NS and BP was 104/87. Patient states he was feeling well when he was discharged, once he arrived home he noticed symptoms and is currently experiencing chest pain, rates it 6/10 as well as nausea. Past medical history of CHF, ESRD, CAD. Denies shortness of breath, vomiting, diarrhea, constipation, cough, congestion. No other symptoms or modifying factors present at this time. Chief Complaint: General Weakness Time Seen by MD: 22:15 Primary Care Provider: pt does not know Reviewed Notes: Medications, Allergies Allergies: Coded Allergies: NO KNOWN ALLERGIES (Unverified , 04/07/24) Home Meds Reported Medications Apixaban Base (ELIQUIS) 2.5 Mg Tab, 2.5 MG PO BID for 60 Days, #60 04/09/24 Dapagliflozin Propanediol (Farxiga) 10 Mg Tab, 1 TAB PO DAILY for 30 Days, #30 04/09/24 Aripiprazole (Aripiprazole) 5 Mg Tab, 1 TAB PO DAILY for 30 Days, #30 04/09/24 Information Source: Patient, Emergency Med Personnel Mode of Arrival: EMS Severity: Moderate Timing: Hours Duration: Since onset Prehospital treatment: Other (300 ml NS ) Vital Signs Vital Signs Date Time Temp Pulse Resp B/P (MAP) Pulse Ox O2 Delivery O2 Flow Rate FiO2 04/16/24 04:16 84/51 04/16/24 04:15 116 23 97 04/15/24 22:41 97.8 97.8 04/15/24 22:40 Room Air* 0 21 Past Medical History PAST MEDICAL HISTORY: CAD, CHF, ESRD Surgical History: Denies all surgeries Family History Family History: Unknown Social History Smoker: Non-Smoker Alcohol: Denies ETOH Use Drugs: Denies Drug Use Lives In: Home Was a procedure done? Was a procedure done?: No EKG EKG : Cardiac Rhythm: ST (134 bpm ) Comments incomplete right bundle branch block. Sinus tachycardia with 134 bpm Differential Dx Considerations may include: Differential diagnoses considered include acute ischemic coronary syndrome, aortic dissection, cardiac tamponade, mediastinitis, pulmonary embolus, pneumothorax, tension pneumothorax, esophageal rupture, coronary artery vasospasm, myocarditis, pericarditis, pneumonia, pulmonary edema, esophageal tear, pancreatitis, aortic stenosis, dilated cardiomyopathy, hypertrophic cardiomyopathy, mitral valve prolapse, malignancy, pleuritis, pneumomediastinum, primary pulmonary hypertension, cholecystitis, esophageal spasm, esophagus, gastritis, GERD, peptic ulcer disease, costochondritis, fibromyalgia, rib fracture, herpes zoster, radicular syndromes, thoracic outlet syndrome, somatization. X-Ray, Labs, Meds, VS Vital Signs Date Time Temp Pulse Resp B/P (MAP) Pulse Ox O2 Delivery O2 Flow Rate FiO2 04/16/24 04:16 84/51 04/16/24 04:15 116 23 78/48 (58) 97 04/16/24 04:00 121 04/16/24 02:00 123 19 82/49 (60) 97 04/16/24 00:00 130 04/16/24 00:00 125 26 104/66 (79) 100 04/15/24 22:41 97.8 134 22 87/57 (67) 93 97.8 04/15/24 22:40 134 22 92 Room Air* 0 21 04/15/24 22:36 134 04/15/24 22:14 98.0 132 20 104/87 (93) 99 Lab Test 04/16/24 01:35 04/15/24 23:50 04/15/24 22:27 Range/Units Magnesium Level 2.0 1.6-2.6 mg/dL Troponin I High Sensitivity 46 31 29 </=54 ng/L White Blood Count 4.3 L 4.4-10.8 10^3/uL Red Blood Count 3.28 L 4.5-5.90 10^6/uL Hemoglobin 10.3 L 13.5-17.5 g/dL Hematocrit 31.9 L 41.0-53.0 % Mean Corpuscular Volume 97.1 80.0-100.0 fL Mean Corpuscular Hemoglobin 31.2 28.0-32.0 pg Mean Corpuscular Hemoglobin Concent 32.2 32.0-36.0 g/dL Red Cell Distribution Width 18.8 H 11.8-14.3 % Platelet Count 79 L 140-450 10^3/uL Mean Platelet Volume 7.7 6.9-10.8 fL Neutrophils (%) (Auto) 81.6 H 37.0-80.0 % Lymphocytes (%) (Auto) 6.5 L 10.0-50.0 % Monocytes (%) (Auto) 8.2 0.0-12.0 % Eosinophils (%) (Auto) 2.6 0.0-7.0 % Basophils (%) (Auto) 1.1 0.0-2.0 % Neutrophils # (Auto) 3.5 1.6-8.6 10 ^3/uL Lymphocytes # (Auto) 0.3 L 0.4-5.4 10 ^3/uL Monocytes # (Auto) 0.4 0-1.3 10 ^3/uL Eosinophils # (Auto) 0.1 0-0.8 10 ^3/uL Basophils # (Auto) 0 0-0.2 10 ^3/uL Nucleated Red Blood Cells 0.2 % Sodium Level 132 L 136-145 mmol/L Potassium Level 5.1 3.5-5.1 mmol/L Chloride Level 96 L 98-107 mmol/L Carbon Dioxide Level 26 20-31 mmol/L Anion Gap 10 5-15 Blood Urea Nitrogen 36 #H 9-23 mg/dL Creatinine 5.96 H 0.700-1.30 mg/dL Glomerular Filtration Rate Calc 10 >90 mL/min BUN/Creatinine Ratio 6.0 L 10.0-20.0 Serum Glucose 110 H 74-106 mg/dL Calcium Level 10.3 8.7-10.4 mg/dL Total Bilirubin 1.0 0.2-1.0 mg/dL Aspartate Amino Transferase (AST) < 8 L 13-40 U/L Alanine Aminotransferase (ALT) < 9 7-40 U/L Alkaline Phosphatase 83 46-116 U/L B-Type Natriuretic Peptide 2684.31 0-100 pg/mL Total Protein 6.4 5.7-8.2 g/dL Albumin 3.9 3.2-4.8 g/dL [address] [address] Ph: [phone] DIAGNOSTIC IMAGING Diagnostic Imaging Report : [id number] Signed PATIENT: SUSHMA THAYER ACCT: [id number] UNIT: [id number] : 1960 LOC: ER ROOM / BED: / AGE / SEX: 64 / M ADM STATUS: REG ER SERVICE 18 ORDERING PHYSICIAN: YARED HERNANDEZ MD PROCEDURE(s): CXRP - CHEST PORTABLE REASON: cp ORDER NUMBER(s): [id number], ACCESSION NUMBER(s): [id number] CHEST RADIOGRAPH Indication: cp Technique: Single frontal view of the chest was obtained COMPARISON: XY CHEST PORTABLE on DOS: 04/07/24 FINDINGS: Lines and Tubes: Stable vascular catheter overlying the right upper thorax. Stable left-sided pacemaker/ AICD. Lungs: Probable mild interstitial pulmonary edema. Pleura: Questionable trace right effusion. No pneumothorax. Cardiomediastinal contours: Cardiomegaly Bones: Unremarkable IMPRESSION: 1. Probable mild interstitial pulmonary edema. 2. Questionable trace right effusion. ATED BY: GABRIELA CHAVEZ MD DICTATED DATE/TIME: 04/15/242347 SIGNED BY: GABRIELA CHAVEZ MD SIGNED DATE/TIME: 04/15/242347 CC: Time of 1ST Reevaluation: 22:45 Reevaluation 1ST: Unchanged Patient Education/Counseling: Diagnosis, Treatment, Prognosis Family Education/Counseling: No Family Present Departure 1 Departure Time of Disposition: 00:36 Impression: Primary Impression: Syncope Additional Impressions: Hyponatremia Pulmonary edema Pleural effusion Atrial fibrillation with RVR Disposition: ADMITTED INPATIENT Condition: Guarded Comments Patient was hypotensive with AFib with RVR. Started on Levophed and amiodarone for blood pressure and rate control. Patient admitted for further treatment, evaluation and monitoring. Critical Care Note Critical Care Time?: Yes (45 min-critical care time only) Critical care comment: Total critical care time: Approximately 45 minutes Due to a high probability of clinically significant, life threatening deterioration, the patient required my highest level of preparedness to intervene emergently and I personally spent this critical care time directly and personally managing the patient. This critical care time included obtaining a history; examining the patient; pulse oximetry; ordering and review of studies; arranging urgent treatment with development of a management plan; evaluation of patient's response to treatment; frequent reassessment; and, discussions with other providers. This critical care time was performed to assess and manage the high probability of imminent, life-threatening deterioration that could result in multi-organ failure. It was exclusive of separately billable procedures and treating other patients and teaching time. Please see my other sections and the rest of the note for further information on patient assessment and treatment. Stability Stability form required: No I personally scribed for YARED HERNANDEZ MD ([email or web address]) on 04/15/24 at 22:27. Electronically submitted by Mari Simon ([email or web address]). I personally scribed for YARED HERNANDEZ MD ([email or web address]) on 04/15/24 at 22:53. Electronically submitted by Mari Simon ([email or web address]). I personally scribed for YARED HERNANDEZ MD ([email or web address]) on 04/16/24 at 00:01. Electronically submitted by Mari Simon ([email or web address]). YARED HERNANDEZ MD Apr 15, 2024 22:27
[2024-04-15 22:40] VITALS: PULSE 134; RESP 22; O2SAT 92
[2024-04-15 22:42] LABS: Basophils # (auto) 0 10 ^3/uL (0-0.2); Basophils % (auto) 1.1 % (0.0-2.0); Eosinophils # (auto) 0.1 10 ^3/uL (0-0.8); Eosinophils % (auto) 2.6 % (0.0-7.0); Hematocrit 31.9 % (41.0-53.0); Hemoglobin 10.3 g/dL (13.5-17.5); Lymphocytes # (auto) 0.3 10 ^3/uL (0.4-5.4); Lymphocytes % (auto) 6.5 % (10.0-50.0); Mean Corpuscular Hemoglobin 31.2 pg (28.0-32.0); Mean Corpuscular Hgb Conc. 32.2 g/dL (32.0-36.0); Mean Corpuscular Volume 97.1 fL (80.0-100.0); Monocytes # (auto) 0.4 10 ^3/uL (0-1.3); Monocytes % (auto) 8.2 % (0.0-12.0); Neutrophils # (auto) 3.5 10 ^3/uL (1.6-8.6); Neutrophils % (auto) 81.6 % (37.0-80.0); Nucleated Red Blood Cells % 0.2 %; Red Blood Cells 3.28 10^6/uL (4.5-5.90); Red Cell Distribution Width 18.8 % (11.8-14.3); White Blood Cell 4.3 10^3/uL (4.4-10.8)
[2024-04-15 22:43] LABS: Platelet Count (auto) 79 10^3/uL (140-450)
[2024-04-15] MEDS: SODIUM CHLORIDE 0.9% 500 ML IV ONE (22:49)
[2024-04-15 23:00] LABS: Alkaline Phosphatase 83 U/L (46-116)
[2024-04-15 23:01] LABS: Albumin 3.9 g/dL (3.2-4.8); Anion Gap 10 (5-15); Calcium 10.3 mg/dL (8.7-10.4); Carbon Dioxide 26 mmol/L (20-31); Potassium 5.1 mmol/L (3.5-5.1); Total Protein 6.4 g/dL (5.7-8.2)
[2024-04-15 23:03] LABS: Alanine Aminotransferase < 9 U/L (7-40); Aspartate Aminotransferase < 8 U/L (13-40); Blood Urea Nitrogen 36 mg/dL (9-23); Chloride 96 mmol/L (98-107); Glucose 110 mg/dL (74-106); Sodium 132 mmol/L (136-145)
--- NOTE | 2024-04-15 23:50 | DVH ---
CHEST RADIOGRAPH Indication: cp Technique: Single frontal view of the chest was obtained COMPARISON: XY CHEST PORTABLE on DOS: 04/07/24 FINDINGS: Lines and Tubes: Stable vascular catheter overlying the right upper thorax. Stable left-sided pacemak er/ AICD. Lungs: Probable mild interstitial pulmonary edema. Pleura: Questionable trace right effusion. No pneumothorax. Cardiomediastinal contours: Cardiomegaly Bones: Unremarkable IMPRESSION: 1. Probable mild interstitial pulmonary edema. 2. Questionable trace right effusion.
[2024-04-15] MEDS: ONDANSETRON ODT 4 MG TAB PO ONE (23:55)
[2024-04-16] MEDS: dilTIAZem 25 MG/5 ML VIAL IV ONE (00:45)
[2024-04-16] MEDS: SODIUM CHLORIDE 0.9% 1,000 ML IV ONE (01:09)
[2024-04-16] MEDS: AMIODARONE BOLUS KIT 100 ML IV ONE ×2 (02:19→05:50)
[2024-04-16] MEDS: NOREPINEPHRINE 8 MG/250ML KIT 250 ML IV SCH ×2 (04:16→06:15)
[2024-04-16] MEDS ORDERED: ONDANSETRON HCL 4 MG/2 ML VIAL IV PRN (04:30)
[2024-04-16] MEDS ORDERED: MORPHINE SULFATE INJ 2 MG/ml SYRG IV PRN (04:30)
[2024-04-16] MEDS ORDERED: DOCUSATE SOD 100 MG CAP PO PRN (04:30)
[2024-04-16] MEDS ORDERED: ACETAMINOPHEN 325 MG TAB PO PRN (04:30)
[2024-04-16] MEDS ORDERED: NITROGLYCERIN 0.4 MG SL TAB SL PRN ×2 (04:30→05:00)
[2024-04-16 04:52] LABS: Base Excess -1.2 mmol/L (-2.0-3.0)
--- NOTE | 2024-04-16 05:03 | DVHHP2 ---
History of Present Illness Reason for Visit: Generalized weakness History of Present Illness 64-year-old male presents for evaluation generalized weakness. Patient was recently discharged for end-stage renal disease status post dialysis and acute on chronic congestive heart failure. Patient reports developing generalized weakness with associated dizziness. On arrival patient's blood pressure was in the 50s. He was also noted to be in AFib with RVR patient converted to sinus tachycardia after bolus of amiodarone. He continued to be hypotensive therefore patient was placed on Levophed. He denies any chest pain. Reports mild shortness for breath. No fever or chills. No other acute complaints reported. Past Medical History Hypertension, congestive heart failure, CAD and end-stage renal disease Past Surgical History Dialysis access Family History Noncontributory Smoke: No ALCOHOL: none Drugs: None Review of Systems Review of Systems Review of systems are currently negative otherwise addressed in HPI. Allergies: Coded Allergies: NO KNOWN ALLERGIES (Unverified , 04/07/24) Medications Current Medications Medications Dose Ordered Sig/Colleen Route Start Time Stop Time Status Last Admin Dose Admin Norepinephrine Bitartrate 250 ml @ 0 mls/hr Q0M IV 04/16/24 03:30 04/16/24 06:29 04/16/24 04:16 2 MLS/HR Sodium Chloride 10 ml Q8HR IV 04/16/24 06:00 Ondansetron HCl 4 mg Q4HP PRN IV 04/16/24 04:30 Docusate Sodium 100 mg BIDPRN PRN PO 04/16/24 04:30 Enoxaparin Sodium 40 mg DAILY SC 04/16/24 10:00 UNV Acetaminophen 650 mg Q6HP PRN PO 04/16/24 04:30 Morphine Sulfate 2 mg Q4HPRN PRN IV 04/16/24 04:30 Nitroglycerin 0.4 mg Q5MINP PRN SL 04/16/24 04:30 Morphine Sulfate 2 mg Q30M PRN IV 04/16/24 04:30 Exam Vital Signs Vital Signs Date Time Temp Pulse Resp B/P (MAP) Pulse Ox O2 Delivery O2 Flow Rate FiO2 04/16/24 04:46 87/57 04/16/24 04:00 121 04/16/24 02:00 19 97 04/15/24 22:14 98.0 Exam Gen: 64-year-old male in moderate distress Skin: Warm, dry, normal color and texture, no rash. HEENT: Normocephalic atraumatic, mucous membranes moist and pink. Neck: Cervical and supraclavicular nodes normal without enlargement, trachea is midline, thyroid gland is normal without masses. Pulmonary: Clear to auscultation and percussion bilaterally. Cardiac: Sinus tachycardia Abdomen: Soft, nontender, nondistended, bowel sounds present all 4 quadrants, no guarding, no rigidity, no organomegaly. Extremities: No cyanosis, clubbing, no edema Neuro: Cranial nerves II through XII grossly intact, normal affect and speech, no focal motor deficits. Labs/Xrays ORDERING PHYSICIAN: BELTRAN FLORIAN PROCEDURE(s): ECIDC - ECHO 2D MODE CARDIAC DOP REASON: ef ORDER NUMBER(s): [id number], ACCESSION NUMBER(s): [id number] APPROVED REPORT EXAM: Two-dimensional and M-mode echocardiogram with Doppler and color Doppler. Blood Pressure: 104/67 mmHg INDICATION EF Surgery/Intervention Pacemaker: RISK FACTORS Height: 70, Weight: 174 DIMENSIONS LVDd 5.1 (3.8-5.7cm) LA (2D) 4.8 (1.9-4.0cm) Aortic Root 4.4 (2.0- 3.7cm) LVDs 4.6 (2.5-4.0cm) LA (MM) (1.9-4.0cm) Aortic Cusp Exc 2.0 (1.5- 2.0cm) EF (%) 22.0 (55-70%) Rt. Atrium 6.7 (1.9-4.0cm) Asc. Aorta cm Mitral Valve Mitral Mitral Stenosis E wave 0.84m/s MV Mean GR. mmHg A wave m/s MV Peak GR. 34mmHg E/A ratio 0.0 2D MVA cm2 DECEL Time ms PRESS 1/2 Time 45ms IVRT ms Dop MVA 4.94cm2 Aortic Valve Aortic Valve Aortic Stenosis V1 0.64m/s AO Mean GR. 3mmHg V2 1.11m/s AO Peak GR. 5mmHg LVOT Diameter 2.5 (1.8-2.4cm) Doppler SASHA 2.83cm2 AI P 1/2 Time 335.27ms Tricuspid Valve TR Velocity 3.22m/s RVSP 70mmHg Conclusion Severely dilated left ventricle. Severely reduced left ventricular systolic function estimated ejection fraction 20%. There is global wall akinesia. There is a grade 1 diastolic dysfunction. Severely dilated right ventricle. Severely reduced right ventricular systolic function. Severely elevated right ventricular systolic [id number] mm of mercury. Severely dilated right and left atria. There is [id number] mitral valve regurgitation. There is [id number] tricuspid regurgitation. The aortic valve is mildly thickened and sclerotic, there is a trace of aortic valve regurgitation The pulmonary is grossly normal. No pericardial effusion. SIGNED BY: RAHUL PIERRE MD ORDERING PHYSICIAN: YARED HERNANDEZ MD PROCEDURE(s): CXRP - CHEST PORTABLE REASON: cp ORDER NUMBER(s): [id number], ACCESSION NUMBER(s): [id number] CHEST RADIOGRAPH Indication: cp Technique: Single frontal view of the chest was obtained COMPARISON: XY CHEST PORTABLE on DOS: 04/07/24 FINDINGS: Lines and Tubes: Stable vascular catheter overlying the right upper thorax. Stable left-sided pacemaker/ AICD. Lungs: Probable mild interstitial pulmonary edema. Pleura: Questionable trace right effusion. No pneumothorax. Cardiomediastinal contours: Cardiomegaly Bones: Unremarkable IMPRESSION: 1. Probable mild interstitial pulmonary edema. 2. Questionable trace right effusion. Labs Test 04/16/24 04:40 04/16/24 01:35 04/15/24 22:27 Range/Units Blood Gas Specimen Type Arterial Blood Gas Sample Site Left radial Blood Gas Patient Temperature 37.0 Arterial Blood Date Drawn [id number] Arterial Blood pH 7.392 7.350-7.450 Arterial Blood Partial Pressure CO2 39.7 35.0-48.0 mmHg Arterial Blood Partial Pressure O2 76.8 L 83.0-108.0 mmHg Arterial Blood HCO3 23.6 21.0-28.0 mmol/L Arterial Blood Oxygen Saturation 94.2 94.0-98.0 % Arterial Blood Base Excess -1.2 -2.0-3.0 mmol/L Arterial Blood Oxyhemoglobin 93.1 L 94.0-98.0 % Arterial Blood Carboxyhemoglobin 1.0 0.5-1.5 % Arterial Blood Methemoglobin 0.2 0.0-1.5 % Chilo Test Modified Blood Gas Total Hemoglobin 10.30 L 13.5-17.5 g/dL Blood Gas Liter Flow 2.00 Blood Gas Modality Nasal cannula FiO2 % 28.0 Magnesium Level 2.0 1.6-2.6 mg/dL Troponin I High Sensitivity 46 </=54 ng/L White Blood Count 4.3 L 4.4-10.8 10^3/uL Red Blood Count 3.28 L 4.5-5.90 10^6/uL Hemoglobin 10.3 L 13.5-17.5 g/dL Hematocrit 31.9 L 41.0-53.0 % Mean Corpuscular Volume 97.1 80.0-100.0 fL Mean Corpuscular Hemoglobin 31.2 28.0-32.0 pg Mean Corpuscular Hemoglobin Concent 32.2 32.0-36.0 g/dL Red Cell Distribution Width 18.8 H 11.8-14.3 % Platelet Count 79 L 140-450 10^3/uL Mean Platelet Volume 7.7 6.9-10.8 fL Neutrophils (%) (Auto) 81.6 H 37.0-80.0 % Lymphocytes (%) (Auto) 6.5 L 10.0-50.0 % Monocytes (%) (Auto) 8.2 0.0-12.0 % Eosinophils (%) (Auto) 2.6 0.0-7.0 % Basophils (%) (Auto) 1.1 0.0-2.0 % Neutrophils # (Auto) 3.5 1.6-8.6 10 ^3/uL Lymphocytes # (Auto) 0.3 L 0.4-5.4 10 ^3/uL Monocytes # (Auto) 0.4 0-1.3 10 ^3/uL Eosinophils # (Auto) 0.1 0-0.8 10 ^3/uL Basophils # (Auto) 0 0-0.2 10 ^3/uL Nucleated Red Blood Cells 0.2 % Sodium Level 132 L 136-145 mmol/L Potassium Level 5.1 3.5-5.1 mmol/L Chloride Level 96 L 98-107 mmol/L Carbon Dioxide Level 26 20-31 mmol/L Anion Gap 10 5-15 Blood Urea Nitrogen 36 #H 9-23 mg/dL Creatinine 5.96 H 0.700-1.30 mg/dL Glomerular Filtration Rate Calc 10 >90 mL/min BUN/Creatinine Ratio 6.0 L 10.0-20.0 Serum Glucose 110 H 74-106 mg/dL Calcium Level 10.3 8.7-10.4 mg/dL Total Bilirubin 1.0 0.2-1.0 mg/dL Aspartate Amino Transferase (AST) < 8 L 13-40 U/L Alanine Aminotransferase (ALT) < 9 7-40 U/L Alkaline Phosphatase 83 46-116 U/L B-Type Natriuretic Peptide 2684.31 0-100 pg/mL Total Protein 6.4 5.7-8.2 g/dL Albumin 3.9 3.2-4.8 g/dL Assessment/Plan Assessment/Plan Assessment AFib with RVR Symptomatic hypotension End-stage renal disease, dialysis dependent Anemia of chronic disease Plan Admit the patient to ICU to the hospitalist Cardiology consultation Continue Levophed drip Resume home medications Continue treatment per orders Total critical care time excluding procedures performed is 50 minutes. Plan discussed with: Patient [facility] Procedure Category Date Status Time Blood Culture DAYAN 04/16/24 Verified 04:54 Lactic Acid W/ Reflex LAB 04/16/24 Verified Order 04:54 Atorvastatin (Lipitor) PHA 04/16/24 Verified 22:00 Amiodarone Tablet PHA 04/16/24 Verified (Cordarone Tablet) 10:00 Apixaban (Eliquis) PHA 04/16/24 Verified 10:00 Sevelamer (Renagel) PHA 04/16/24 Verified 08:00 *[facility] CONS 04/16/24 Verified -[place] 04:54 Ceftriaxone Ivpb PHA 04/16/24 Verified Rocephin 09:00 Admit ADMIT 04/16/24 Verified 04:54 Renal DIET 04/16/24 Verified Standard(2gna,3gk,Lopho) Breakfast Ondansetron Hcl PHA 04/16/24 Verified (Zofran) 05:00 Complete Blood Count LAB 04/17/24 Verified 04:00 Comprehensive LAB 04/17/24 Verified Metabolic Panel 04:00 Condition: Unstable LETICIA 04/16/24 Verified 04:54 Acetaminophen Tablet PHA 04/16/24 Verified (Tylenol Tablet) 05:00 Bedrest With Bathroom LETICIA 04/16/24 Verified Privileg 04:54 Nitroglycerin [facility] 04/16/24 Verified Sublingual (Ntrostat 05:00 Morphine Sulfate PHA 04/16/24 Verified Injection 05:00 Stat Ekg For Chest [facility] 04/16/24 Verified Pain 04:54 Notify Md Of Changes [facility] 04/16/24 Verified From Base 04:54 Pants Maker For [facility] 04/16/24 Verified 24 Hours 04:54 Emergency Dysrhythmia [facility] 04/16/24 Verified Protocol 04:54 Rhythm Strips Once [facility] 04/16/24 Verified Every Shift 04:54 Oxygen By Nasal 04/16/24 Verified Cannula 04:54 Date of Service: Apr 16, 2024 Billing Provider: BELTRAN FLORIAN Common Visit Codes: [id number] CARE 30-74 MIN BELTRAN FLORIAN Apr 16, 2024 05:03
[2024-04-16 05:18] LABS: Potassium 5.1 mmol/L (3.5-5.1)
[2024-04-16 05:19] LABS: Anion Gap 8 (5-15); Calcium 9.8 mg/dL (8.7-10.4); Carbon Dioxide 25 mmol/L (20-31)
[2024-04-16 05:24] LABS: BUN/Creatinine Ratio 5.3 (10.0-20.0); Glucose 105 mg/dL (74-106)
[2024-04-16 05:25] LABS: Blood Urea Nitrogen 34 mg/dL (9-23); Chloride 97 mmol/L (98-107); Sodium 130 mmol/L (136-145)
[2024-04-16] MEDS: cefTRIAXone 1GM/50ML D5W 50 ML IV SCH (05:50)
[2024-04-16] MEDS: SODIUM CHLOR 0.9% PF (SALINE LOCK) 10ML VIAL/SYR IV SCH (06:08)
[2024-04-16 07:29] LABS: Rapid Influenza A Negative (Negative); Rapid Influenza B Negative (Negative)
[2024-04-16 07:31] LABS: COVID19 ANTIGEN SOFIA FIA NEGATIVE (NEGATIVE)
[2024-04-16 07:56] VITALS: PULSE 128; RESP 24; O2SAT 95
[2024-04-16] MEDS: SEVELAMER 800 MG TAB PO SCH (08:55)
[2024-04-16] MEDS: APIXABAN 5 MG TAB PO SCH (09:44)
[2024-04-16] MEDS: AMIODARONE HCL 200 MG TAB PO SCH (09:44)
[2024-04-16] MEDS ORDERED: ENOXAPARIN SOD 40 MG/0.4 ML SYRINGE SC SCH (10:00)
--- NOTE | 2024-04-16 12:36 | DVHCONRES ---
Date Seen: Apr 16, 2024 Resident Creating Document: ROMAINE MCGOVERN RESIDENT Referring Physician michelle WORKMAN Reason for Consultation ESRD History of Present Illness Patient is 51-year-old male with past medical history of hypertension, coronary artery disease, CHF, ESRD, anemia of chronic disease, atrial fibrillation who presented to hospital with a chief complaint of dizziness after discharge from hospital yesterday. During hospitalization patient received regular hemodialysis, treated for AFib with RVR and heart failure. As per patient after record discharge you become dizzz , worsening shortness of breath that leads to come back to hospital. Neurology consultation was done for management of ESRD. On further evaluation patient was on Levophed for maintaining blood pressure, requiring oxygen via nasal cannula. Laboratory findings showed elevated creatinine of 6.49, GFR nine, BUN at 34. X-ray showed mild right-sided pleural effusion with pulmonary edema. No any other events. Past Medical History hypertension, coronary artery disease, CHF, ESRD, anemia of chronic disease, atrial fibrillation Past Surgical History AICD Social History As per HPI Allergies: Coded Allergies: NO KNOWN ALLERGIES (Unverified , 04/07/24) Home Meds Reported Medications Apixaban Base (ELIQUIS) 2.5 Mg Tab, 2.5 MG PO BID for 60 Days, #60 04/09/24 Dapagliflozin Propanediol (Farxiga) 10 Mg Tab, 1 TAB PO DAILY for 30 Days, #30 04/09/24 Aripiprazole (Aripiprazole) 5 Mg Tab, 1 TAB PO DAILY for 30 Days, #30 04/09/24 Current Medications Current Medications Medications (Trade) Dose Ordered Sig/Colleen Route PRN Reason Start Time Stop Time Status Last Admin Norepinephrine Bitartrate 250 ml @ 0 mls/hr Q0M IV 04/16/24 03:30 04/16/24 06:04 DC 04/16/24 04:16 Sodium Chloride (Saline Lock Ns) 10 ml Q8HR IV 04/16/24 06:00 04/16/24 06:08 Ondansetron HCl (Zofran) 4 mg Q4HP PRN IV NAUSEA / VOMITING 04/16/24 04:30 04/16/24 05:04 DC Docusate Sodium (Colace Capsule) 100 mg BIDPRN PRN PO FOR CONSTIPATION 04/16/24 04:30 Enoxaparin Sodium (Lovenox) 40 mg DAILY SC 04/16/24 10:00 04/16/24 04:59 DC Acetaminophen (Tylenol Tablet) 650 mg Q6HP PRN PO PAIN SCALE 1-3 OR TEMP>100.4 04/16/24 04:30 04/16/24 05:04 DC Morphine Sulfate 2 mg Q4HPRN PRN IV SEVERE PAIN (7-10 PAIN SCALE) 04/16/24 04:30 Nitroglycerin (Ntrostat Sublingual) 0.4 mg Q5MINP PRN SL FOR CHEST PAIN 04/16/24 04:30 04/16/24 05:04 DC Morphine Sulfate 2 mg Q30M PRN IV FOR CHEST PAIN 04/16/24 04:30 04/16/24 05:04 DC Atorvastatin Calcium (Lipitor) 40 mg HS PO 04/16/24 22:00 Amiodarone HCl (Cordarone Tablet) 200 mg DAILY PO 04/16/24 10:00 04/16/24 09:44 Apixaban (Eliquis) 5 mg BID PO 04/16/24 10:00 04/16/24 09:44 Sevelamer HCl (Renagel) 800 mg TIDWM PO 04/16/24 08:00 Ceftriaxone Sodium 50 ml @ 100 mls/hr DAILY@09 IV 04/16/24 06:00 04/16/24 06:19 Ondansetron HCl (Zofran) 4 mg Q4HP PRN IV NAUSEA / VOMITING 04/16/24 05:00 Acetaminophen (Tylenol Tablet) 650 mg Q6HP PRN PO PAIN SCALE 1-3 OR TEMP>100.4 04/16/24 05:00 Nitroglycerin (Ntrostat Sublingual) 0.4 mg Q5MINP PRN SL FOR CHEST PAIN 04/16/24 05:00 Morphine Sulfate 2 mg Q30M PRN IV FOR CHEST PAIN 04/16/24 05:00 Norepinephrine Bitartrate 250 ml @ 3.75 mls/hr Q24H IV 04/16/24 06:15 Review of Systems Patient complaining of being dizzy and worsening shortness of breath. Eyes: No Pain, No Vision change, No Conjunctivae inflammation, No Eyelid inflammation, No Other, No Redness ENT: No Ear pain, No Ear discharge, No Nose pain, No Nose discharge, No Nose congestion, No Mouth pain, No Mouth swelling, No Throat pain, No Throat swelling, No Other Cardiovascular: No Chest Pain, No Palpitations, No Orthopnea, No Paroxysmal Noc. Dyspnea, No Edema, No Lt Headedness, No Other Respiratory: No Cough, No Dry, No Shortness of breath, No SOB with excertion, No Wheezing, No Hemoptysis, No Pleuritic Pain, No Sputum, No Other Gastrointestinal: No Nausea, No Vomiting, No Abdominal Pain, No Diarrhea, No Constipation, No Melena, No Hematochezia, No Other Genitourinary: No Dysuria, No Frequency, No Incontinence, No Hematuria, No Retention, No Other Musculoskeletal: No other, No neck pain, No shoulder pain, No arm pain, No back pain, No hand pain, No leg pain, No foot pain Skin: No Rash, No Lesions, No Jaundice, No Bruising, No Other Vital Signs Vital Signs Date Time Temp Pulse Resp B/P (MAP) Pulse Ox O2 Delivery O2 Flow Rate FiO2 04/16/24 11:00 130 25 102/78 (86) 93 04/16/24 07:56 Nasal Cannula* 1 24 04/15/24 22:41 97.8 97.8 Physical Exam General Appearance: Cooperative. Well developed. Well nourished. NAD Head Exam: Normal inspection Neck Exam: Normal inspection. Non-tender. Normal alignment Pulmonary/Respiratory: Chest non-tender. Clear bilateral breath sounds Cardiovascular/Chest: IRRRegular rate and rhythm. No murmurs. No JVD. Peripheral Pulses: 2+ Radial (R). 2+ Radial (L). 2+ Pedal (R). 2+ Pedal (L) Abdominal Exam: Normal bowel sounds. Soft. Nontender. No hepatospenomegaly. No masses Ankle Exam: Negative ankle edema Lower extremities: Negative lower extremity edema Neuro/Mental Status: A&O x4. Coherent Thoughts/Psych: Normal thought pattern. Appropriate mood and affect. Good judgement and insight Appearance: In no acute distress Skin Exam: Normal inspection. Normal color. Warm. Dry Labs/Diagnostic Data Labs Test 04/16/24 06:23 04/16/24 04:55 04/16/24 04:40 04/16/24 01:35 Range/Units Influenza Type A Antigen Negative Negative Influenza Type B Antigen Negative Negative SARS-CoV-2 Antigen (Rapid) Negative NEGATIVE Sodium Level 130 L 136-145 mmol/L Potassium Level 5.1 3.5-5.1 mmol/L Chloride Level 97 L 98-107 mmol/L Carbon Dioxide Level 25 20-31 mmol/L Anion Gap 8 5-15 Blood Urea Nitrogen 34 H 9-23 mg/dL Creatinine 6.43 H 0.700-1.30 mg/dL Glomerular Filtration Rate Calc 9 >90 mL/min BUN/Creatinine Ratio 5.3 L 10.0-20.0 Serum Glucose 105 74-106 mg/dL Lactic Acid Level 1.2 0.4-2.0 mmol/L Calcium Level 9.8 8.7-10.4 mg/dL Blood Gas Specimen Type Arterial Blood Gas Sample Site Left radial Blood Gas Patient Temperature 37.0 Arterial Blood Date Drawn [id number] Arterial Blood pH 7.392 7.350-7.450 Arterial Blood Partial Pressure CO2 39.7 35.0-48.0 mmHg Arterial Blood Partial Pressure O2 76.8 L 83.0-108.0 mmHg Arterial Blood HCO3 23.6 21.0-28.0 mmol/L Arterial Blood Oxygen Saturation 94.2 94.0-98.0 % Arterial Blood Base Excess -1.2 -2.0-3.0 mmol/L Arterial Blood Oxyhemoglobin 93.1 L 94.0-98.0 % Arterial Blood Carboxyhemoglobin 1.0 0.5-1.5 % Arterial Blood Methemoglobin 0.2 0.0-1.5 % Chilo Test Modified Blood Gas Total Hemoglobin 10.30 L 13.5-17.5 g/dL Blood Gas Liter Flow 2.00 Blood Gas Modality Nasal cannula FiO2 % 28.0 Magnesium Level 2.0 1.6-2.6 mg/dL Troponin I High Sensitivity 46 </=54 ng/L Test 04/15/24 22:27 Range/Units White Blood Count 4.3 L 4.4-10.8 10^3/uL Red Blood Count 3.28 L 4.5-5.90 10^6/uL Hemoglobin 10.3 L 13.5-17.5 g/dL Hematocrit 31.9 L 41.0-53.0 % Mean Corpuscular Volume 97.1 80.0-100.0 fL Mean Corpuscular Hemoglobin 31.2 28.0-32.0 pg Mean Corpuscular Hemoglobin Concent 32.2 32.0-36.0 g/dL Red Cell Distribution Width 18.8 H 11.8-14.3 % Platelet Count 79 L 140-450 10^3/uL Mean Platelet Volume 7.7 6.9-10.8 fL Neutrophils (%) (Auto) 81.6 H 37.0-80.0 % Lymphocytes (%) (Auto) 6.5 L 10.0-50.0 % Monocytes (%) (Auto) 8.2 0.0-12.0 % Eosinophils (%) (Auto) 2.6 0.0-7.0 % Basophils (%) (Auto) 1.1 0.0-2.0 % Neutrophils # (Auto) 3.5 1.6-8.6 10 ^3/uL Lymphocytes # (Auto) 0.3 L 0.4-5.4 10 ^3/uL Monocytes # (Auto) 0.4 0-1.3 10 ^3/uL Eosinophils # (Auto) 0.1 0-0.8 10 ^3/uL Basophils # (Auto) 0 0-0.2 10 ^3/uL Nucleated Red Blood Cells 0.2 % Total Bilirubin 1.0 0.2-1.0 mg/dL Aspartate Amino Transferase (AST) < 8 L 13-40 U/L Alanine Aminotransferase (ALT) < 9 7-40 U/L Alkaline Phosphatase 83 46-116 U/L B-Type Natriuretic Peptide 2684.31 0-100 pg/mL Total Protein 6.4 5.7-8.2 g/dL Albumin 3.9 3.2-4.8 g/dL Assessment ESRD on hemodialysis, out of the area Acute on chronic HFrEF, ejection fraction 20%. Hypertension Anemia of chronic disease Coronary artery disease Afib RVR leading to near syncope in setting of hypotension Plan/recommendation -currently on vasopressor: rate control -IV lasix 80 mg , follow up with Urine out put. -no plan for hemodialysis today given soft blood pressure and low-level of BUN. -Regular Monitoring: Ensure frequent monitoring of blood pressure, electrolyte levels, and fluid balance. -renal diet -continue phosphate binder:Sevelamer -pending phosphorus level, 24 hydroxy vitamin-D, parathyroid hormone level. -rest of the plan per primary care team; ICU Plan discussed with: Patient, Other (RN) ADDENDUM ADDENDUM HD on hold today until stablized pressors and rate controlled ordered by primary team patient going to ICU and cardiology consulted critical care time 31mins ROMAINE MCGOVERN Apr 16, 2024 12:36 JOSE GUADALUPE ELLIOTT MD Apr 16, 2024 15:24
--- NOTE | 2024-04-16 12:56 | ECG ---
[facility] Test Date: 2024-04-15 Test Time: 22:36:33 Pat Name: SUSHMA THAYER Department: ER Room: [address] [place] [address] A Gender: M Director [employer]: VICKIE : 1960 Requested By: YARED HERNANDEZ Order Number: [id number] Reading MD: Josh Holliday Measurements Intervals [place] Rate: 134 P: 0 SC: 0 QRS: -131 QRSD: 116 T: 68 QT: 337 QTc: 503 Interpretive Statements Sinus tachycardia Incomplete right bundle branch block Electronically Signed On 04-16-2024 13:08:43 PST by Josh Holliday Please click the below link to view image of tracing.
[2024-04-16] MEDS: FUROSEMIDE 100 MG/10ML VIAL IV ONE (14:12)
--- NOTE | 2024-04-16 14:32 | DVHPN2 ---
Subjective Patient reporting generalized weakness. States that his breathing difficulties have improved. Reviewed: Care Plan, H&P, Labs, Medications Changes from previous H/P or p: No Changes General: Per HPI Objective Vitals Vital Signs Date Time Temp Pulse Resp B/P (MAP) Pulse Ox O2 Delivery O2 Flow Rate FiO2 04/16/24 14:12 108/84 04/16/24 13:30 129 19 98 04/16/24 07:56 Nasal Cannula* 1 04/15/24 22:41 97.8 97.8 Intake/Output Intake and Output 04/16/24 07:00 Intake Total 850 ml Balance 850 ml Intake IV Total 850 ml General Appearance: Alert, Oriented X3, Cooperative, mild distress HEENT: Atraumatic, PERRLA Lungs: Clear to auscultation Cardiovascular: Normal S1, Normal S2, Other (Multifocal atrial tachycardia with heart rate about 125 beats per minute) Abdomen: Normal bowel sounds, Soft, No tenderness Genitourinary: No Apparent Abnormalities Musculoskeletal: Normal sensory function, Normal motor function Neuro: Normal gait, Normal speech Psych/Mental Status: Mental status NL, Mood NL Medications Current Medications Medications Dose Ordered Sig/Colleen Route Start Time Stop Time Status Last Admin Dose Admin Sodium Chloride 10 ml Q8HR IV 04/16/24 06:00 04/16/24 14:13 10 ML Docusate Sodium 100 mg BIDPRN PRN PO 04/16/24 04:30 Morphine Sulfate 2 mg Q4HPRN PRN IV 04/16/24 04:30 Atorvastatin Calcium 40 mg HS PO 04/16/24 22:00 Amiodarone HCl 200 mg DAILY PO 04/16/24 10:00 04/16/24 09:44 200 MG Apixaban 5 mg BID PO 04/16/24 10:00 04/16/24 09:44 5 MG Sevelamer HCl 800 mg TIDWM PO 04/16/24 08:00 Ceftriaxone Sodium 50 ml @ 100 mls/hr DAILY@09 IV 04/16/24 06:00 04/16/24 06:19 100 MLS/HR Ondansetron HCl 4 mg Q4HP PRN IV 04/16/24 05:00 Acetaminophen 650 mg Q6HP PRN PO 04/16/24 05:00 Nitroglycerin 0.4 mg Q5MINP PRN SL 04/16/24 05:00 Morphine Sulfate 2 mg Q30M PRN IV 04/16/24 05:00 Norepinephrine Bitartrate 250 ml @ 3.75 mls/hr Q24H IV 04/16/24 06:15 Laboratory Results Laboratory Tests 04/15/24 22:27 04/16/24 04:55 Chemistry Test 04/15/24 22:27 04/16/24 01:35 04/16/24 04:55 Albumin 3.9 g/dL (3.2-4.8) Calcium Level 10.3 mg/dL (8.7-10.4) 9.8 mg/dL (8.7-10.4) Total Protein 6.4 g/dL (5.7-8.2) Magnesium Level 2.0 mg/dL (1.6-2.6) Cardiac Markers Test 04/15/24 22:27 B-Type Natriuretic Peptide 2684.31 pg/mL (0-100) LFT Test 04/15/24 22:27 Alanine Aminotransferase (ALT) < 9 U/L (7-40) Alkaline Phosphatase 83 U/L (46-116) Aspartate Amino Transferase (AST) < 8 U/L (13-40) L Total Bilirubin 1.0 mg/dL (0.2-1.0) Blood Gas Results Test 04/16/24 04:40 Arterial Blood pH 7.392 (7.350-7.450) FiO2 % 28.0 Labs and/or images reviewed: Labs reviewed by me, Image(s) reviewed by me Assessment/Plan Assessment/Plan Impression: -hypotension secondary to atrial fibrillation and heart failure medication -acute on chronic systolic heart failure with ejection fraction 20% -pulmonary arterial hypertension with noted elevated RSVP -coronary artery disease with previous CABG -fever ESRD with HD -anemia of chronic disease -hyperkalemia -hypervolemic hyponatremia Plan: -change p.m. Levophed drip to phenylephrine -cardiology consultation -nephrology consultation -hold antihypertensives and heart failure medications at this time -continue empiric antibiotic therapy -continue anticoagulation with Eliquis -repeat labs in a.m. Total time spent with patient discussing and formulating plan of care: 35 minutes. This medical document was created using an electronic medical record system with [employer] dictation system. Although this document has been carefully reviewed, there may still be some phonetic and typographical errors. These areas are purely typographical due to imperfections of the software programs, and do not reflect any compromise in the patient's medical care. Plan discussed with: Patient, Other (RN) My Orders Orders - MONIQUE MACDONALD NP Procedure Category Date Status Time Phenylephrine PHA 04/16/24 Transmitted 20mg/250ml 14:30 Date of Service: Apr 16, 2024 Billing Provider: MONIQUE MACDONALD NP Common Visit Codes: [id number] CARE 30-74 MIN MONIQUE MACDONALD NP Apr 16, 2024 14:32
[2024-04-16 20:45] VITALS: PULSE 97; RESP 19; O2SAT 95
[2024-04-16] MEDS: PHENYLEPHRINE IV 250 ML IV SCH (22:14)
[2024-04-16] MEDS: ATORVASTATIN 20 MG TAB PO SCH (22:19)
[2024-04-17] MEDS: PANTOPRAZOLE 40 MG TAB PO SCH (06:00)
[2024-04-17 07:30] VITALS: PULSE 97; RESP 19; O2SAT 97
[2024-04-17 07:44] LABS: Hematocrit 30.9 % (41.0-53.0); Hemoglobin 9.9 g/dL (13.5-17.5); Mean Corpuscular Hemoglobin 31.6 pg (28.0-32.0); Mean Corpuscular Hgb Conc. 31.9 g/dL (32.0-36.0); Mean Corpuscular Volume 98.9 fL (80.0-100.0); Platelet Count (auto) 71 10^3/uL (140-450); Red Blood Cells 3.13 10^6/uL (4.5-5.90); Red Cell Distribution Width 18.7 % (11.8-14.3); White Blood Cell 3.1 10^3/uL (4.4-10.8)
[2024-04-17 07:47] LABS: Band Neutrophils % (manual) 0; Basophils % (manual) 0 (0.0-2.0); Blast Cells 0; Metamyelocytes % 0; Myelocytes % 0; Promyelocytes % 0; Reactive Lymphocytes 0
[2024-04-17 08:07] LABS: Albumin 3.5 g/dL (3.2-4.8); Alkaline Phosphatase 75 U/L (46-116); Anion Gap 10 (5-15); BUN/Creatinine Ratio 5.9 (10.0-20.0); Calcium 10.1 mg/dL (8.7-10.4); Carbon Dioxide 23 mmol/L (20-31); Chloride 98 mmol/L (98-107); Glucose 96 mg/dL (74-106)
[2024-04-17 08:08] LABS: Bilirubin, Total 0.5 mg/dL (0.2-1.0); Total Protein 6.1 g/dL (5.7-8.2)
--- NOTE | 2024-04-17 08:15 | DVHINCON2 ---
Date Seen: Apr 17, 2024 Referring Physician JI Katz Reason for Consultation Atrial tachycardia, HFrEF 20% History of Present Illness This is a 64-year-old man who presented to the emergency room with a chief complaint of generalized weakness. At time of assessment, the patient was extre keenan somnolent. Per RN at bedside, the patient was restless last night. Information obtained from records which indicate the patient presented with complaints of generalized weakness associated with dizziness, shortness of breath, a systolic blood pressure in the 50s mmHg for which he was initiated on a vasopressor, and found in an atrial fibrillation rhythm with rapid ventricular rate for which he was administered amiodarone bolus with successful rhythm change. At time of assessment, the patient was found with a SBP in the 140s mm Hg and a paced rhythm in the 80s bpm. He had a recent admission to this facility for a possible GI bleed undergoing an EGD with no active bleeding noted and sent home on Eliquis and Plavix therapy. Significant medical history includes paroxysmal atrial fibrillation on low-dose Eliquis and amiodarone, ischemic cardiomyopathy with latest EF 20%, coronary artery disease status post multiple PTCAs x 3 RASHEEDA on Plavix therapy, status post dual-chamber pacemaker implantation (Biotronik 2014), cardiac ablations x3, nonsustained ventricular tachycardia, pulmonary hypertension of severe degree, status post right subclavian vascular graft, hypertension, dyslipidemia, end-stage renal disease on hemodialysis T--Sat, thrombocytopenia, and anemia in chronic disease. Past Medical History Past medical history reviewed. No other significant than mentioned above. Past Surgical History Permanent pacemaker (Biotronik), 2014 Multiple PCIs including three RASHEEDA Cardiac ablations x3 Right subclavian vascular graft Dialysis access Family History Family history reviewed. Social History Denies the use of illicit drugs, alcohol, or tobacco use. Allergies: Coded Allergies: NO KNOWN ALLERGIES (Unverified , 04/07/24) Home Meds Reported Medications Apixaban Base (ELIQUIS) 2.5 Mg Tab, 2.5 MG PO BID for 60 Days, #60 04/09/24 Dapagliflozin Propanediol (Farxiga) 10 Mg Tab, 1 TAB PO DAILY for 30 Days, #30 04/09/24 Aripiprazole (Aripiprazole) 5 Mg Tab, 1 TAB PO DAILY for 30 Days, #30 04/09/24 Home Meds Home medications reviewed. Current Medications Current Medications Medications (Trade) Dose Ordered Sig/Colleen Route PRN Reason Start Time Stop Time Status Last Admin Enoxaparin Sodium (Lovenox) 40 mg DAILY SC 04/16/24 10:00 04/16/24 04:59 DC Atorvastatin Calcium (Lipitor) 40 mg HS PO 04/16/24 22:00 04/16/24 22:19 Amiodarone HCl (Cordarone Tablet) 200 mg DAILY PO 04/16/24 10:00 04/16/24 14:34 DC 04/16/24 09:44 Apixaban (Eliquis) 5 mg BID PO 04/16/24 10:00 04/16/24 22:19 Phenylephrine HCl 250 ml @ 30 mls/hr Q8H20M IV 04/16/24 14:30 Amiodarone HCl (Cordarone Tablet) 400 mg DAILY PO 04/17/24 10:00 Pantoprazole Sodium (Protonix Tablet) 40 mg DAILY@0600 PO 04/17/24 06:00 04/17/24 06:00 Review of Systems Constitutional: Generalized weakness Ears, Nose, & Throat: No symptom reported Eyes: No symptom reported Neurological: No symptoms reported Pulmonary/Respiratory: SOB Cardiovascular: No symptom reported Gastrointestinal: No symptom reported Genitourinary: No symptom reported Musculoskeletal: No symptom reported Skin: No symptom reported Psychiatric: No symptom reported Endocrine: No symptom reported Hemotologic/Lymphatic: No symptom reported Vital Signs Vital Signs Date Time Temp Pulse Resp B/P (MAP) Pulse Ox O2 Delivery O2 Flow Rate FiO2 04/17/24 06:30 75 16 130/78 (95) 100 04/16/24 20:45 Nasal Cannula* 4 36 04/15/24 22:41 97.8 97.8 Physical Exam General Appearance: Chronically ill. Lethargic. In no acute distress Head Exam: Normal inspection Neck Exam: Normal inspection. Non-tender. Normal alignment Pulmonary/Respiratory: Chest non-tender. Diminished bilateral breath sounds Cardiovascular/Chest: Regular rate and rhythm. S1, S2. Paced rhythm. No murmurs. No JVD. Peripheral Pulses: 2+ Radial (R). 2+ Radial (L). 2+ Pedal (R). 2+ Pedal (L) Abdominal Exam: Normal bowel sounds. Soft. Nontender. No hepatospenomegaly. No masses Ankle Exam: Negative ankle edema Lower extremities: Negative lower extremity edema Neuro/Mental Status: A&O x3. Coherent but somnolent Thoughts/Psych: Normal thought pattern. Appropriate mood and affect. Appearance: In no acute distress Skin Exam: Normal inspection. Pale color. Warm. Dry Labs/Diagnostic Data Labs Test 04/17/24 07:32 04/16/24 06:23 04/16/24 04:55 04/16/24 04:40 Range/Units White Blood Count 3.1 #L 4.4-10.8 10^3/uL Red Blood Count 3.13 L 4.5-5.90 10^6/uL Hemoglobin 9.9 L 13.5-17.5 g/dL Hematocrit 30.9 L 41.0-53.0 % Mean Corpuscular Volume 98.9 80.0-100.0 fL Mean Corpuscular Hemoglobin 31.6 28.0-32.0 pg Mean Corpuscular Hemoglobin Concent 31.9 L 32.0-36.0 g/dL Red Cell Distribution Width 18.7 H 11.8-14.3 % Platelet Count 71 L 140-450 10^3/uL Mean Platelet Volume 7.6 6.9-10.8 fL Neutrophils (%) (Auto) 37.0-80.0 % Lymphocytes (%) (Auto) 10.0-50.0 % Monocytes (%) (Auto) 0.0-12.0 % Basophils (%) (Auto) 0.0-2.0 % Neutrophils # (Auto) 1.6-8.6 10 ^3/uL Lymphocytes # (Auto) 0.4-5.4 10 ^3/uL Monocytes # (Auto) 0-1.3 10 ^3/uL Influenza Type A Antigen Negative Negative Influenza Type B Antigen Negative Negative SARS-CoV-2 Antigen (Rapid) Negative NEGATIVE Lactic Acid Level 1.2 0.4-2.0 mmol/L Blood Gas Specimen Type Arterial Blood Gas Sample Site Left radial Blood Gas Patient Temperature 37.0 Arterial Blood Date Drawn [id number] Arterial Blood pH 7.392 7.350-7.450 Arterial Blood Partial Pressure CO2 39.7 35.0-48.0 mmHg Arterial Blood Partial Pressure O2 76.8 L 83.0-108.0 mmHg Arterial Blood HCO3 23.6 21.0-28.0 mmol/L Arterial Blood Oxygen Saturation 94.2 94.0-98.0 % Arterial Blood Base Excess -1.2 -2.0-3.0 mmol/L Arterial Blood Oxyhemoglobin 93.1 L 94.0-98.0 % Arterial Blood Carboxyhemoglobin 1.0 0.5-1.5 % Arterial Blood Methemoglobin 0.2 0.0-1.5 % Chilo Test Modified Blood Gas Total Hemoglobin 10.30 L 13.5-17.5 g/dL Blood Gas Liter Flow 2.00 Blood Gas Modality Nasal cannula FiO2 % 28.0 Test 04/16/24 01:35 04/15/24 22:27 Range/Units Magnesium Level 2.0 1.6-2.6 mg/dL Troponin I High Sensitivity 46 </=54 ng/L Eosinophils (%) (Auto) 2.6 0.0-7.0 % Eosinophils # (Auto) 0.1 0-0.8 10 ^3/uL Basophils # (Auto) 0 0-0.2 10 ^3/uL Nucleated Red Blood Cells 0.2 % B-Type Natriuretic Peptide 2684.31 0-100 pg/mL Assessment Acute on chronic decompensated HFrEF, NYHA Class IV Dilated/ischemic cardiomyopathy with LVEF of 20% Coronary artery disease status post PCIs x3 RASHEEDA, on Plavix Paroxysmal atrial fibrillation, on low-dose Eliquis/amiodarone Presence of permanent pacemaker (IngBooronik, 2015) Pulmonary hypertension, severe Status post cardiac ablations x 3 Status post right subclavian graft ESRD on HD Anemia in chronic disease Thrombocytopenia Plan/Recommendation (Dr. Pierre) The patient underwent a transthoracic echocardiogram revealing an EF of 20% with global akinesia. RVSP 75 mmHg. Continue low-dose Eliquis and Plavix therapy. Continue BB and Entresto, hold SGLT2i and mineralocorticoid given ESRD. Continue antiarrhythmic, amiodarone. Continue preload and afterload reduction along with HD treatments. Given tachyarrhythmias including NSVT and ischemic cardiomyopathy with diminished LVEF, we will refer the patient for ICD evaluation. Pacemaker interrogation from recent admission was unremarkable. Thank you for allowing us to participate in this patient's care. Please call if you have any questions or concerns. Critial care time: 45 min. This medical document was created using an electronic medical record system with voice recognition software and computerized dictation system. Although this document has been carefully reviewed, there might still be some phonetic and typographical errors. Occasional wrong-word or ``sound-alike substitutions may have occurred due to the inherent limitations of voice recognition software. These areas are purely typographical due to imperfections of the software programs and do not reflect any compromise in the patient's medical care. Please read the chart carefully and recognize, using context, where these substitutions have occurred. Plan discussed with: Patient, Other NYHA Physical activity limitations: Class4(Severe)discomfort Date of Service: Apr 17, 2024 Billing Provider: RAHUL PIERRE MD Cardiology Common Codes: [id number] INP/OBS CARE (High) ANAYELI CALVILLO [facility] Apr 17, 2024 08:15
[2024-04-17 08:26] LABS: Alanine Aminotransferase < 9 U/L (7-40); Aspartate Aminotransferase 9 U/L (13-40); Blood Urea Nitrogen 42 mg/dL (9-23); Sodium 131 mmol/L (136-145)
[2024-04-17 08:51] LABS: Eosinophils % (manual) 1 (0-7); Lymphocytes % (manual) 24 (10.0-50.0); Monocytes % (manual) 15 (0-12)
[2024-04-17 08:52] LABS: Platelet Estimate Decreased
--- NOTE | 2024-04-17 08:55 | DVHPN2 ---
Subjective Patient denies any symptoms at this time Reviewed: Care Plan, H&P, Labs, Medications Changes from previous H/P or p: No Changes General: Per HPI Objective Vitals Vital Signs Date Time Temp Pulse Resp B/P (MAP) Pulse Ox O2 Delivery O2 Flow Rate FiO2 04/17/24 06:30 75 16 130/78 (95) 100 04/16/24 20:45 Nasal Cannula* 4 36 04/15/24 22:41 97.8 97.8 Intake/Output Intake and Output 04/17/24 07:00 Intake Total 1000 ml Balance 1000 ml Intake IV Total 1000 ml General Appearance: Alert, Oriented X3, Cooperative, mild distress HEENT: Atraumatic, PERRLA Lungs: Clear to auscultation Cardiovascular: Normal S1, Normal S2, Other (Multifocal atrial tachycardia with heart rate about 125 beats per minute) Abdomen: Normal bowel sounds, Soft, No tenderness Genitourinary: No Apparent Abnormalities Musculoskeletal: Normal sensory function, Normal motor function Neuro: Normal gait, Normal speech Psych/Mental Status: Mental status NL, Mood NL Medications Current Medications Medications Dose Ordered Sig/Colleen Route Start Time Stop Time Status Last Admin Dose Admin Sodium Chloride 10 ml Q8HR IV 04/16/24 06:00 04/17/24 06:00 10 ML Docusate Sodium 100 mg BIDPRN PRN PO 04/16/24 04:30 Morphine Sulfate 2 mg Q4HPRN PRN IV 04/16/24 04:30 Atorvastatin Calcium 40 mg HS PO 04/16/24 22:00 04/16/24 22:19 40 MG Apixaban 5 mg BID PO 04/16/24 10:00 04/16/24 22:19 5 MG Sevelamer HCl 800 mg TIDWM PO 04/16/24 08:00 Ceftriaxone Sodium 50 ml @ 100 mls/hr DAILY@09 IV 04/16/24 06:00 04/16/24 06:19 100 MLS/HR Ondansetron HCl 4 mg Q4HP PRN IV 04/16/24 05:00 Acetaminophen 650 mg Q6HP PRN PO 04/16/24 05:00 Nitroglycerin 0.4 mg Q5MINP PRN SL 04/16/24 05:00 Morphine Sulfate 2 mg Q30M PRN IV 04/16/24 05:00 Norepinephrine Bitartrate 250 ml @ 3.75 mls/hr Q24H IV 04/16/24 06:15 Phenylephrine HCl 250 ml @ 30 mls/hr Q8H20M IV 04/16/24 14:30 Amiodarone HCl 400 mg DAILY PO 04/17/24 10:00 Pantoprazole Sodium 40 mg DAILY@0600 PO 04/17/24 06:00 04/17/24 06:00 40 MG Laboratory Results Laboratory Tests 04/17/24 07:32 Chemistry Test 04/17/24 07:32 Albumin 3.5 g/dL (3.2-4.8) Calcium Level 10.1 mg/dL (8.7-10.4) Total Protein 6.1 g/dL (5.7-8.2) LFT Test 04/17/24 07:32 Alanine Aminotransferase (ALT) < 9 U/L (7-40) Alkaline Phosphatase 75 U/L (46-116) Aspartate Amino Transferase (AST) 9 U/L (13-40) L Total Bilirubin 0.5 mg/dL (0.2-1.0) Labs and/or images reviewed: Labs reviewed by me, Image(s) reviewed by me Assessment/Plan Assessment/Plan Impression: -hypotension secondary to atrial fibrillation and heart failure medication -acute on chronic systolic heart failure with ejection fraction 20% -pulmonary arterial hypertension with noted elevated RSVP -coronary artery disease with previous CABG -fever ESRD with HD -anemia of chronic disease -hyperkalemia -hypervolemic hyponatremia Plan: Events: Patient no longer in AFib with RVR. Rate controlled. Vasopressors have been weaned off. Transfer to telemetry status. -rate control: Amiodarone increased to 400 mg p.o. daily. Given improvement with the patient was blood pressure, restart Toprol-XL 25 mg p.o. daily -cardiology consultation -nephrology consultation : Plans for HD today -hold antihypertensives and heart failure medications at this time -continue empiric antibiotic therapy -continue anticoagulation with Eliquis -repeat labs in a.m. Total time spent with patient discussing and formulating plan of care: 35 minutes. This medical document was created using an electronic medical record system with [employer] system. Although this document has been carefully reviewed, there may still be some phonetic and typographical errors. These areas are purely typographical due to imperfections of the software programs, and do not reflect any compromise in the patient's medical care. Plan discussed with: Patient, Other (RN) My Orders Orders - MONIQUE MACDONALD NP Procedure Category Date Status Time Phenylephrine Iv PHA 04/16/24 In Process (Phenylephrine/Ns) 14:30 Amiodarone Tablet PHA 04/17/24 In Process (Cordarone Tablet) 10:00 * Cardiology Consult CONS 04/16/24 Transmitted 14:27 Pantoprazole Tablet PHA 04/17/24 In Process (Protonix Tablet) 06:00 Date of Service: Apr 17, 2024 Billing Provider: MONIQUE MACDONALD NP Common Visit Codes: [id number] INP/OBS CARE(HIGH) MONIQUE MACDONALD NP Apr 17, 2024 08:55
[2024-04-17] MEDS: CLOPIDOGREL BISULFATE 75 MG TAB PO SCH (10:00)
[2024-04-17] MEDS: SACUBITRIL-VALSARTAN 24mg/26mg TAB PO SCH (10:00)
[2024-04-17] MEDS: APIXABAN 2.5 MG TAB PO SCH (10:00)
[2024-04-17] MEDS: METOPROLOL SUCCINATE XL 50 MG TAB PO SCH (10:00)
[2024-04-17] MEDS: AMIODARONE HCL 200 MG TAB PO SCH (10:18)
[2024-04-17 13:44] LABS: Urine Bacteria None Seen /hpf (None Seen)
[2024-04-17 13:58] LABS: Urine Blood 3+ /uL (Negative); Urine Clarity Clear (Clear); Urine Color Light-Yellow (Yellow); Urine Protein, UAD 1+ (Negative); Urine Specific Gravity 1.009 (1.001-1.035); Urine Urobilinogen Normal (Negative); Urine WBC 17 /hpf (0 - 3)
--- NOTE | 2024-04-17 16:47 | DVHPN2 ---
Progress Note - Dictate Date Seen: Apr 17, 2024 Medical Necessity Reason Pt with a Central, PICC or Fol: No Subjective Awake and alert, seen in the ER vital signs Vital Sign Date Time Temp Pulse Resp B/P (MAP) Pulse Ox O2 Delivery O2 Flow Rate FiO2 04/17/24 14:00 98.1 70 16 138/80 (99) 100 98.1 04/17/24 07:30 Nasal Cannula* 2 28 Total Intake and Output 04/16/24 04/16/24 04/17/24 15:00 23:00 07:00 Intake Total 1000 ml Balance 1000 ml medications Current Medications Medications Dose Ordered Sig/Colleen Route Start Time Stop Time Status Last Admin Dose Admin Sodium Chloride 10 ml Q8HR IV 04/16/24 06:00 04/17/24 14:22 10 ML Docusate Sodium 100 mg BIDPRN PRN PO 04/16/24 04:30 Morphine Sulfate 2 mg Q4HPRN PRN IV 04/16/24 04:30 Atorvastatin Calcium 40 mg HS PO 04/16/24 22:00 04/16/24 22:19 40 MG Sevelamer HCl 800 mg TIDWM PO 04/16/24 08:00 04/17/24 12:04 800 MG Ceftriaxone Sodium 50 ml @ 100 mls/hr DAILY@09 IV 04/16/24 06:00 04/17/24 09:00 100 MLS/HR Ondansetron HCl 4 mg Q4HP PRN IV 04/16/24 05:00 Acetaminophen 650 mg Q6HP PRN PO 04/16/24 05:00 Nitroglycerin 0.4 mg Q5MINP PRN SL 04/16/24 05:00 Morphine Sulfate 2 mg Q30M PRN IV 04/16/24 05:00 Amiodarone HCl 400 mg DAILY PO 04/17/24 10:00 04/17/24 10:18 400 MG Pantoprazole Sodium 40 mg DAILY@0600 PO 04/17/24 06:00 04/17/24 06:00 40 MG Metoprolol Succinate 25 mg DAILY PO 04/17/24 10:00 04/17/24 10:00 25 MG Apixaban 2.5 mg BID PO 04/17/24 10:00 04/17/24 10:00 2.5 MG Sacubitril/ Valsartan 0.5 tab BID PO 04/17/24 10:00 04/17/24 10:00 0.5 TAB Clopidogrel Bisulfate 75 mg DAILY PO 04/17/24 10:00 04/17/24 10:00 75 MG objective Gen: nad heent: nc/at, mmm lungs: cta anteriorly cvs: no rub abd: soft, bowel sounds audible ext: no edema skin: no rash neuro: alert and oriented laboratory and microbiology Laboratory Tests 04/17/24 07:32 Test 04/17/24 07:32 Range/Units Serum Glucose 96 74-106 mg/dL Assessment/Plan ESRD on hemodialysis, out of the area Acute on chronic HFrEF, ejection fraction 20%. Hypertension Anemia of chronic disease Coronary artery disease Afib RVR leading to near syncope in setting of hypotension Plan/recommendation - daily evaluation for kidney replacement therapy, appears clinically stable currently - hemodynamics improved slightly Plan discussed with: Patient TAYE PANIAGUA MD Apr 17, 2024 16:47
[2024-04-17] MEDS: SODIUM CHL 0.9% 1000 ML BAG XX ONE (17:47)
[2024-04-17 20:00] VITALS: PULSE 69; PULSE 77; RESP 18; O2SAT 94
[2024-04-17 20:22] LABS: INR 1.24 (0.9-1.15); Partial Thromboplastin Time 36.2 SEC (24.5-34.5); Prothrombin Time 12.9 sec (9.3-11.8)
[2024-04-17 21:00] VITALS: BP 101/55; PULSE 77; RESP 18; TEMP 98.8; O2SAT 94
[2024-04-17] MEDS: EPOETIN ALFA-EPBX 10,000 UNIT/1ML VIAL SC ONE (22:06)
[2024-04-18] VITALS (10 sets, daily range): BP systolic 89–136; BP diastolic 50–82; PULSE 64–77; RESP 12–18; TEMP 97.9–98.9; O2SAT 72–98
[2024-04-18] MEDS: HEPARIN SODIUM (PORCINE) 5000 UNITS/ML 1ML VIAL SC SCH (05:39)
[2024-04-18 07:23] LABS: Calcium 9.5 mg/dL (8.7-10.4); Hematocrit 27.7 % (41.0-53.0); Hemoglobin 9.1 g/dL (13.5-17.5); Mean Corpuscular Hemoglobin 31.8 pg (28.0-32.0); Mean Corpuscular Volume 96.3 fL (80.0-100.0); Platelet Count (auto) 82 10^3/uL (140-450); Potassium 4.1 mmol/L (3.5-5.1); Red Blood Cells 2.88 10^6/uL (4.5-5.90); Red Cell Distribution Width 17.8 % (11.8-14.3); White Blood Cell 2.4 10^3/uL (4.4-10.8)
[2024-04-18 07:24] LABS: Anion Gap 9 (5-15); Carbon Dioxide 30 mmol/L (20-31)
[2024-04-18 07:29] LABS: BUN/Creatinine Ratio 6.1 (10.0-20.0); Glucose 103 mg/dL (74-106)
[2024-04-18 07:34] LABS: Band Neutrophils % (manual) 0; Basophils % (manual) 0 (0.0-2.0); Blast Cells 0; Metamyelocytes % 0; Myelocytes % 0; Promyelocytes % 0; Reactive Lymphocytes 0
[2024-04-18 07:35] LABS: Blood Urea Nitrogen 33 mg/dL (9-23); Chloride 97 mmol/L (98-107); Sodium 136 mmol/L (136-145)
[2024-04-18 09:11] LABS: Eosinophils % (manual) 8 (0-7); Lymphocytes % (manual) 8 (10.0-50.0); Monocytes % (manual) 18 (0-12)
[2024-04-18 09:12] LABS: Platelet Estimate Decreased
--- NOTE | 2024-04-18 12:12 | DVHPN2 ---
Subjective Patient seems him at bedside. Complain of very tired. Complain of shortness a breath. Reviewed: Care Plan, H&P, Labs, Medications Changes from previous H/P or p: No Changes General: Per HPI Objective Vitals Vital Signs Date Time Temp Pulse Resp B/P (MAP) Pulse Ox O2 Delivery O2 Flow Rate FiO2 04/18/24 10:00 64 94/59 04/18/24 08:43 98.9 12 92 98.9 04/18/24 08:00 Nasal Cannula* 2 28 Intake/Output Intake and Output 04/18/24 07:00 Intake Total 50 ml Balance 50 ml IV Total 50 ml General Appearance: Alert, Oriented X3, Cooperative, mild distress HEENT: Atraumatic, PERRLA Lungs: Clear to auscultation Cardiovascular: Normal S1, Normal S2, Other (Multifocal atrial tachycardia with heart rate about 125 beats per minute) Abdomen: Normal bowel sounds, Soft, No tenderness Genitourinary: No Apparent Abnormalities Musculoskeletal: Normal sensory function, Normal motor function Neuro: Normal gait, Normal speech Psych/Mental Status: Mental status NL, Mood NL Medications Current Medications Medications Dose Ordered Sig/Colleen Route Start Time Stop Time Status Last Admin Dose Admin Sodium Chloride 10 ml Q8HR IV 04/16/24 06:00 04/18/24 05:38 10 ML Docusate Sodium 100 mg BIDPRN PRN PO 04/16/24 04:30 Morphine Sulfate 2 mg Q4HPRN PRN IV 04/16/24 04:30 Atorvastatin Calcium 40 mg HS PO 04/16/24 22:00 04/17/24 22:10 40 MG Sevelamer HCl 800 mg TIDWM PO 04/16/24 08:00 04/18/24 12:00 800 MG Ceftriaxone Sodium 50 ml @ 100 mls/hr DAILY@09 IV 04/16/24 06:00 04/18/24 09:00 100 MLS/HR Ondansetron HCl 4 mg Q4HP PRN IV 04/16/24 05:00 Acetaminophen 650 mg Q6HP PRN PO 04/16/24 05:00 Nitroglycerin 0.4 mg Q5MINP PRN SL 04/16/24 05:00 Morphine Sulfate 2 mg Q30M PRN IV 04/16/24 05:00 Amiodarone HCl 400 mg DAILY PO 04/17/24 10:00 04/17/24 10:18 400 MG Pantoprazole Sodium 40 mg DAILY@0600 PO 04/17/24 06:00 04/18/24 05:41 40 MG Metoprolol Succinate 25 mg DAILY PO 04/17/24 10:00 04/17/24 10:00 25 MG Sacubitril/ Valsartan 0.5 tab BID PO 04/17/24 10:00 04/17/24 10:00 0.5 TAB Heparin Sodium (Porcine) 5,000 units Q8HR SC 04/18/24 06:00 04/18/24 05:39 5,000 UNITS Laboratory Results Laboratory Tests 04/18/24 06:29 Chemistry Test 04/18/24 06:29 Calcium Level 9.5 mg/dL (8.7-10.4) Coagulation Test 04/17/24 19:49 Prothrombin Time 12.9 sec (9.3-11.8) H Prothrombin Time INR 1.24 (0.9-1.15) H Activated Partial Thromboplast Time 36.2 SEC (24.5-34.5) H Urinalysis Test 04/17/24 07:52 Urine Color Light-yellow (Yellow) Urine Clarity Clear (Clear) Urine pH 6.0 (5.0-9.0) Urine Specific Mcroberts 1.009 (1.001-1.035) Urine Protein 1+ (Negative) H Urine Ketones Negative (Negative) Urine Blood 3+ /uL (Negative) H Urine Nitrite Negative (Negative) Urine Bilirubin Negative (Negative) Urine Urobilinogen Normal mg/dL (Negative) Urine Leukocyte Esterase 1+ /uL (Negative) Urine RBC 102 /hpf (0 - 3) Urine WBC 17 /hpf (0 - 3) Urine Squamous Epithelial Cells Few /hpf (<5) Urine Bacteria None seen /hpf (None Seen) Urine Glucose Normal mg/dL (Normal) Microbiology Microbiology Date/Time Source Procedure Growth Status 04/16/24 10:02 Blood Blood Culture - Preliminary NO GROWTH AFTER 48 HOURS OF INCUBATION. Resulted Labs and/or images reviewed: Labs reviewed by me Assessment/Plan Assessment/Plan -hypotension secondary to atrial fibrillation and heart failure medication -acute on chronic systolic heart failure with ejection fraction 20% -pulmonary arterial hypertension with noted elevated RSVP -coronary artery disease with previous CABG -fever ESRD with HD -anemia of chronic disease -hyperkalemia -hypervolemic hyponatremia Plan: Continuing current management. Continuing with amiodarone 400 mg daily. Continuing with Toprol XL 25 mg daily. Cardiology and nephrology consult appreciated. Hemodialysis per schedule Continuing empiric antibiotic therapy. Continuing with Eliquis Plan discussed with: Patient Date of Service: Apr 18, 2024 Billing Provider: CHINA RODRIGUEZ MD Common Visit Codes: [id number] INP/OBS CARE(HIGH) CHINA RODRIGUEZ MD Apr 18, 2024 12:12
--- NOTE | 2024-04-18 13:40 | DVHPN2 ---
Progress Note - Dictate Date Seen: Apr 18, 2024 Medical Necessity Reason Pt with a Central, PICC or Fol: No Subjective Tolerated dialysis yesterday. vital signs Vital Sign Date Time Temp Pulse Resp B/P (MAP) Pulse Ox O2 Delivery O2 Flow Rate FiO2 04/18/24 12:52 98.2 69 13 89/50 (63) 72 98.2 04/18/24 08:00 Nasal Cannula* 2 28 Total Intake and Output 04/17/24 04/17/24 04/18/24 15:00 23:00 07:00 Intake Total 50 ml Balance 50 ml medications Current Medications Medications Dose Ordered Sig/Colleen Route Start Time Stop Time Status Last Admin Dose Admin Sodium Chloride 10 ml Q8HR IV 04/16/24 06:00 04/18/24 05:38 10 ML Docusate Sodium 100 mg BIDPRN PRN PO 04/16/24 04:30 Morphine Sulfate 2 mg Q4HPRN PRN IV 04/16/24 04:30 Atorvastatin Calcium 40 mg HS PO 04/16/24 22:00 04/17/24 22:10 40 MG Sevelamer HCl 800 mg TIDWM PO 04/16/24 08:00 04/18/24 12:00 800 MG Ceftriaxone Sodium 50 ml @ 100 mls/hr DAILY@09 IV 04/16/24 06:00 04/18/24 09:00 100 MLS/HR Ondansetron HCl 4 mg Q4HP PRN IV 04/16/24 05:00 Acetaminophen 650 mg Q6HP PRN PO 04/16/24 05:00 Nitroglycerin 0.4 mg Q5MINP PRN SL 04/16/24 05:00 Morphine Sulfate 2 mg Q30M PRN IV 04/16/24 05:00 Amiodarone HCl 400 mg DAILY PO 04/17/24 10:00 04/17/24 10:18 400 MG Pantoprazole Sodium 40 mg DAILY@0600 PO 04/17/24 06:00 04/18/24 05:41 40 MG Metoprolol Succinate 25 mg DAILY PO 04/17/24 10:00 04/17/24 10:00 25 MG Sacubitril/ Valsartan 0.5 tab BID PO 04/17/24 10:00 04/17/24 10:00 0.5 TAB Heparin Sodium (Porcine) 5,000 units Q8HR SC 04/18/24 06:00 04/18/24 05:39 5,000 UNITS objective Gen: nad heent: nc/at, mmm lungs: cta anteriorly cvs: no rub abd: soft, bowel sounds audible ext: no edema skin: no rash neuro: alert and oriented laboratory and microbiology Laboratory Tests 04/18/24 06:29 Test 04/18/24 06:29 Range/Units Serum Glucose 103 74-106 mg/dL Assessment/Plan ESRD on hemodialysis, out of the area Acute on chronic HFrEF, ejection fraction 20%. Hypertension Anemia of chronic disease Coronary artery disease Afib RVR leading to near syncope in setting of hypotension Plan/recommendation - consideration to down titrate Entresto once daily or to be taken 3 times a week on nondialysis days To allow for slightly more robust blood pressure and tolerance of dialysis - Patient has established care time at dialysis clinic in [place] where he chooses to continue to receive care Plan discussed with: Patient TAEY PANIAGUA MD Apr 18, 2024 13:40
--- NOTE | 2024-04-18 13:49 | DVHPN2 ---
Consult Progress Note Subjective Review of Systems: CVS:Normal (Denies CP, Palpitations,) Objective vital signs Vital Sign Date Time Temp Pulse Resp B/P (MAP) Pulse Ox O2 Delivery O2 Flow Rate FiO2 04/18/24 12:52 98.2 69 13 89/50 (63) 72 98.2 04/18/24 08:00 Nasal Cannula* 2 28 Total Intake and Output 04/17/24 04/17/24 04/18/24 15:00 23:00 07:00 Intake Total 50 ml Balance 50 ml medications Current Medications Medications Dose Ordered Sig/Colleen Route Start Time Stop Time Status Last Admin Dose Admin Sodium Chloride 10 ml Q8HR IV 04/16/24 06:00 04/18/24 05:38 10 ML Docusate Sodium 100 mg BIDPRN PRN PO 04/16/24 04:30 Morphine Sulfate 2 mg Q4HPRN PRN IV 04/16/24 04:30 Atorvastatin Calcium 40 mg HS PO 04/16/24 22:00 04/17/24 22:10 40 MG Sevelamer HCl 800 mg TIDWM PO 04/16/24 08:00 04/18/24 12:00 800 MG Ceftriaxone Sodium 50 ml @ 100 mls/hr DAILY@09 IV 04/16/24 06:00 04/18/24 09:00 100 MLS/HR Ondansetron HCl 4 mg Q4HP PRN IV 04/16/24 05:00 Acetaminophen 650 mg Q6HP PRN PO 04/16/24 05:00 Nitroglycerin 0.4 mg Q5MINP PRN SL 04/16/24 05:00 Morphine Sulfate 2 mg Q30M PRN IV 04/16/24 05:00 Amiodarone HCl 400 mg DAILY PO 04/17/24 10:00 04/17/24 10:18 400 MG Pantoprazole Sodium 40 mg DAILY@0600 PO 04/17/24 06:00 04/18/24 05:41 40 MG Metoprolol Succinate 25 mg DAILY PO 04/17/24 10:00 04/17/24 10:00 25 MG Sacubitril/ Valsartan 0.5 tab BID PO 04/17/24 10:00 04/17/24 10:00 0.5 TAB Heparin Sodium (Porcine) 5,000 units Q8HR SC 04/18/24 06:00 04/18/24 05:39 5,000 UNITS Examination: LUNGS:Abnormal (Rhonchi/rales), CVS:Abnormal (Tele reviewed and consistent with sinus rhythm with 1 degree AV blcok) laboratory and microbiology Laboratory Tests 04/18/24 06:29 Test 04/18/24 06:29 Range/Units Serum Glucose 103 74-106 mg/dL Problem List/Assessment/Plan Problem List/Assessment/Plan Acute on chronic decompensated HFrEF, NYHA Class IV Dilated/ischemic cardiomyopathy with LVEF of 20% Coronary artery disease status post PCIs x3 RASHEEDA, on Plavix Paroxysmal atrial fibrillation, on low-dose Eliquis/amiodarone Presence of permanent pacemaker ([employer], 2015) Pulmonary hypertension, severe Status post cardiac ablations x 3 Status post right subclavian graft ESRD on HD Anemia in chronic disease Thrombocytopenia Plan/Recommendation (Dr. Pierre) The patient underwent a transthoracic echocardiogram revealing an EF of 20% with global akinesia. RVSP 75 mmHg. Continue low-dose Eliquis and Plavix therapy. Continue BB and Entresto as BP tolerates, hold SGLT2i and mineralocorticoid given ESRD. BP marginal this morning. Continue antiarrhythmic, amiodarone. Continue preload and afterload reduction along with HD treatments. Given tachyarrhythmias including NSVT and ischemic cardiomyopathy with diminished LVEF, we will refer the patient for ICD evaluation. Pacemaker interrogation from recent admission was unremarkable. Thank you for allowing us to participate in this patient's care. Please call if you have any questions or concerns. Plan discussed with: Patient Date of Service: Apr 18, 2024 Billing Provider: RAHUL PIERRE MD Common Visit Codes: [id number] INP/OBS CARE(HIGH) ARMIDA MCGHEE [facility] Apr 18, 2024 13:49
[2024-04-19] VITALS (7 sets, daily range): BP systolic 93–123; BP diastolic 53–69; PULSE 57–127; RESP 17–19; TEMP 97–98.4; O2SAT 95–98
--- NOTE | 2024-04-19 11:36 | DVHPN2 ---
Consult Progress Note Subjective Patient reports: No new complaints Objective vital signs Vital Sign Date Time Temp Pulse Resp B/P (MAP) Pulse Ox O2 Delivery O2 Flow Rate FiO2 04/19/24 10:00 72 104/62 04/19/24 09:00 97.8 18 96 97.8 04/18/24 20:00 Nasal Cannula* 2 28 Total Intake and Output 04/18/24 04/18/24 04/19/24 15:00 23:00 07:00 Intake Total 480 ml Balance 480 ml medications Current Medications Medications Dose Ordered Sig/Colleen Route Start Time Stop Time Status Last Admin Dose Admin Sodium Chloride 10 ml Q8HR IV 04/16/24 06:00 04/19/24 06:11 10 ML Docusate Sodium 100 mg BIDPRN PRN PO 04/16/24 04:30 Morphine Sulfate 2 mg Q4HPRN PRN IV 04/16/24 04:30 Atorvastatin Calcium 40 mg HS PO 04/16/24 22:00 04/18/24 22:46 40 MG Sevelamer HCl 800 mg TIDWM PO 04/16/24 08:00 04/18/24 18:51 800 MG Ceftriaxone Sodium 50 ml @ 100 mls/hr DAILY@09 IV 04/16/24 06:00 04/19/24 09:28 100 MLS/HR Ondansetron HCl 4 mg Q4HP PRN IV 04/16/24 05:00 Acetaminophen 650 mg Q6HP PRN PO 04/16/24 05:00 Nitroglycerin 0.4 mg Q5MINP PRN SL 04/16/24 05:00 Morphine Sulfate 2 mg Q30M PRN IV 04/16/24 05:00 Amiodarone HCl 400 mg DAILY PO 04/17/24 10:00 04/19/24 09:55 400 MG Pantoprazole Sodium 40 mg DAILY@0600 PO 04/17/24 06:00 04/19/24 06:21 40 MG Metoprolol Succinate 25 mg DAILY PO 04/17/24 10:00 04/17/24 10:00 25 MG Sacubitril/ Valsartan 0.5 tab BID PO 04/17/24 10:00 04/17/24 10:00 0.5 TAB Heparin Sodium (Porcine) 5,000 units Q8HR SC 04/18/24 06:00 04/18/24 15:13 5,000 UNITS laboratory and microbiology Laboratory Tests 04/18/24 06:29 Test 04/18/24 06:29 Range/Units Serum Glucose 103 74-106 mg/dL Problem List/Assessment/Plan Problem List/Assessment/Plan Acute on chronic decompensated HFrEF, NYHA Class IV Dilated/ischemic cardiomyopathy with LVEF of 20% Coronary artery disease status post PCIs x3 RASHEEDA, on Plavix Paroxysmal atrial fibrillation, on low-dose Eliquis/amiodarone Presence of permanent pacemaker ([employer], 2015) Pulmonary hypertension, severe Status post cardiac ablations x 3 Status post right subclavian graft ESRD on HD Anemia in chronic disease Thrombocytopenia Plan/Recommendation Case Discussed with Dr Cooney. Echocardiogram revealing an EF of 20% with global akinesia. RVSP 75 mmHg. Continue low-dose Eliquis and Plavix therapy. Continue BB and Entresto as BP tolerates, per nephrology recs plan to continue on Entresto once daily or 3 times a week on nondialysis days. Hold SGLT2i and mineralocorticoid given ESRD. BP marginal this morning. Continue antiarrhythmic, amiodarone. Continue preload and afterload reduction along with HD treatments per Nephrology. EP consult with Dr. Vernon for ICD assessment given tachyarrhythmias with an SVT and severe cardiomyopathy. Pacemaker interrogation from recent admission was unremarkable. Thank you for allowing us to participate in this patient's care. Please call if you have any questions or concerns. This medical document was created using an electronic medical record system with voice recognition software and computerized dictation system. Although this document has been carefully reviewed, there might still be some phonetic and typographical errors. Occasional wrong-word or ``sound-alike substitutions may have occurred due to the inherent limitations of voice recognition software. These areas are purely typographical due to imperfections of the software programs and do not reflect any compromise in the patient's medical care. Please read the chart carefully and recognize, using context, where these substitutions have occurred. Thank you for allowing me to participate in the management of this patient. The treatment plan was discussed with and agreed upon by patient/family including requesting consultants and ordering of imaging/procedures. Plan discussed with: Patient Date of Service: Apr 19, 2024 Billing Provider: RAHUL COONEY MD Common Visit Codes: [id number] INP/OBS CARE(HIGH) ARMIDA MCGHEE [facility] Apr 19, 2024 11:36
--- NOTE | 2024-04-19 13:03 | DVHPN2 ---
Subjective The patient seen and examined at bedside. Complain of chest pain today. Reviewed: Care Plan, H&P, Labs, Medications Changes from previous H/P or p: No Changes General: Per HPI Objective Vitals Vital Signs Date Time Temp Pulse Resp B/P (MAP) Pulse Ox O2 Delivery O2 Flow Rate FiO2 04/19/24 10:00 72 104/62 04/19/24 09:00 97.8 18 96 97.8 04/19/24 08:00 Nasal Cannula* 2 28 Intake/Output Intake and Output 04/19/24 07:00 Intake Total 480 ml Balance 480 ml Intake Oral 480 ml General Appearance: Alert, Oriented X3, Cooperative, mild distress HEENT: Atraumatic, PERRLA Lungs: Clear to auscultation Cardiovascular: Normal S1, Normal S2, Other (Multifocal atrial tachycardia with heart rate about 125 beats per minute) Abdomen: Normal bowel sounds, Soft, No tenderness Genitourinary: No Apparent Abnormalities Musculoskeletal: Normal sensory function, Normal motor function Neuro: Normal gait, Normal speech Psych/Mental Status: Mental status NL, Mood NL Medications Current Medications Medications Dose Ordered Sig/Colleen Route Start Time Stop Time Status Last Admin Dose Admin Sodium Chloride 10 ml Q8HR IV 04/16/24 06:00 04/19/24 06:11 10 ML Docusate Sodium 100 mg BIDPRN PRN PO 04/16/24 04:30 Morphine Sulfate 2 mg Q4HPRN PRN IV 04/16/24 04:30 Atorvastatin Calcium 40 mg HS PO 04/16/24 22:00 04/18/24 22:46 40 MG Sevelamer HCl 800 mg TIDWM PO 04/16/24 08:00 04/18/24 18:51 800 MG Ceftriaxone Sodium 50 ml @ 100 mls/hr DAILY@09 IV 04/16/24 06:00 04/19/24 09:28 100 MLS/HR Ondansetron HCl 4 mg Q4HP PRN IV 04/16/24 05:00 Acetaminophen 650 mg Q6HP PRN PO 04/16/24 05:00 Nitroglycerin 0.4 mg Q5MINP PRN SL 04/16/24 05:00 Morphine Sulfate 2 mg Q30M PRN IV 04/16/24 05:00 Amiodarone HCl 400 mg DAILY PO 04/17/24 10:00 04/19/24 09:55 400 MG Pantoprazole Sodium 40 mg DAILY@0600 PO 04/17/24 06:00 04/19/24 06:21 40 MG Metoprolol Succinate 25 mg DAILY PO 04/17/24 10:00 04/17/24 10:00 25 MG Sacubitril/ Valsartan 0.5 tab BID PO 04/17/24 10:00 04/17/24 10:00 0.5 TAB Heparin Sodium (Porcine) 5,000 units Q8HR SC 04/18/24 06:00 04/18/24 15:13 5,000 UNITS Laboratory Results Laboratory Tests 04/18/24 06:29 Urinalysis Test 04/17/24 07:52 Urine Color Light-yellow (Yellow) Urine Clarity Clear (Clear) Urine pH 6.0 (5.0-9.0) Urine Specific [place] 1.009 (1.001-1.035) Urine Protein 1+ (Negative) H Urine Ketones Negative (Negative) Urine Blood 3+ /uL (Negative) H Urine Nitrite Negative (Negative) Urine Bilirubin Negative (Negative) Urine Urobilinogen Normal mg/dL (Negative) Urine Leukocyte Esterase 1+ /uL (Negative) Urine RBC 102 /hpf (0 - 3) Urine WBC 17 /hpf (0 - 3) Urine Squamous Epithelial Cells Few /hpf (<5) Urine Bacteria None seen /hpf (None Seen) Urine Glucose Normal mg/dL (Normal) Microbiology Microbiology Date/Time Source Procedure Growth Status 04/16/24 10:02 Blood Blood Culture - Preliminary NO GROWTH AFTER 72 HOURS OF INCUBATION. Resulted Labs and/or images reviewed: Labs reviewed by me Assessment/Plan Assessment/Plan -hypotension secondary to atrial fibrillation and heart failure medication -acute on chronic systolic heart failure with ejection fraction 20% -pulmonary arterial hypertension with noted elevated RSVP -coronary artery disease with previous CABG -fever ESRD with HD -anemia of chronic disease -hyperkalemia -hypervolemic hyponatremia Continuing current management. EKG was checked and showed no change. We will give morphine. The patient refused nitro. Continuing amiodarone Continuing took Continuing hemodialysis Continuing IV antibiotic Continuing Eliquis Cardiology and nephrology appreciate Plan discussed with: Patient Date of Service: Apr 19, 2024 Billing Provider: CHINA RODRIGUEZ MD Common Visit Codes: [id number] INP/OBS CARE(HIGH) CHINA RODRIGUEZ MD Apr 19, 2024 13:03
[2024-04-19] MEDS: MORPHINE SULFATE INJ 2 MG/ml SYRG IV PRN (15:38)
[2024-04-19 17:00] LABS: Basophils # (auto) 0 10 ^3/uL (0-0.2); Basophils % (auto) 1.4 % (0.0-2.0); Eosinophils # (auto) 0.1 10 ^3/uL (0-0.8); Eosinophils % (auto) 6.2 % (0.0-7.0); Hematocrit 29.6 % (41.0-53.0); Hemoglobin 9.6 g/dL (13.5-17.5); Lymphocytes # (auto) 0.3 10 ^3/uL (0.4-5.4); Lymphocytes % (auto) 10.4 % (10.0-50.0); Mean Corpuscular Hemoglobin 31.3 pg (28.0-32.0); Mean Corpuscular Hgb Conc. 32.4 g/dL (32.0-36.0); Mean Corpuscular Volume 96.5 fL (80.0-100.0); Monocytes # (auto) 0.3 10 ^3/uL (0-1.3); Monocytes % (auto) 13.9 % (0.0-12.0); Neutrophils # (auto) 1.6 10 ^3/uL (1.6-8.6); Neutrophils % (auto) 68.1 % (37.0-80.0); Nucleated Red Blood Cells % 0.2 %; Platelet Count (auto) 102 10^3/uL (140-450); Red Blood Cells 3.07 10^6/uL (4.5-5.90); Red Cell Distribution Width 17.6 % (11.8-14.3); White Blood Cell 2.4 10^3/uL (4.4-10.8)
[2024-04-19 17:02] LABS: Chloride 98 mmol/L (98-107); Potassium 4.2 mmol/L (3.5-5.1)
[2024-04-19 17:03] LABS: Anion Gap 6 (5-15); Calcium 9.5 mg/dL (8.7-10.4); Carbon Dioxide 29 mmol/L (20-31)
[2024-04-19 17:08] LABS: BUN/Creatinine Ratio 6.7 (10.0-20.0)
[2024-04-19 17:20] LABS: Blood Urea Nitrogen 42 mg/dL (9-23); Glucose 110 mg/dL (74-106); Sodium 133 mmol/L (136-145)
--- NOTE | 2024-04-19 17:23 | DVHPN2 ---
Progress Note - Dictate Date Seen: Apr 19, 2024 Medical Necessity Reason Pt with a Central, PICC or Fol: No Subjective Awake and alert this afternoon vital signs Vital Sign Date Time Temp Pulse Resp B/P (MAP) Pulse Ox O2 Delivery O2 Flow Rate FiO2 04/19/24 15:38 78 16 106/58 04/19/24 09:00 97.8 96 97.8 04/19/24 08:00 Nasal Cannula* 2 28 Total Intake and Output 04/18/24 04/18/24 04/19/24 15:00 23:00 07:00 Intake Total 480 ml Balance 480 ml medications Current Medications Medications Dose Ordered Sig/Colleen Route Start Time Stop Time Status Last Admin Dose Admin Sodium Chloride 10 ml Q8HR IV 04/16/24 06:00 04/19/24 13:30 10 ML Docusate Sodium 100 mg BIDPRN PRN PO 04/16/24 04:30 Morphine Sulfate 2 mg Q4HPRN PRN IV 04/16/24 04:30 Atorvastatin Calcium 40 mg HS PO 04/16/24 22:00 04/18/24 22:46 40 MG Sevelamer HCl 800 mg TIDWM PO 04/16/24 08:00 04/18/24 18:51 800 MG Ceftriaxone Sodium 50 ml @ 100 mls/hr DAILY@09 IV 04/16/24 06:00 04/19/24 09:28 100 MLS/HR Ondansetron HCl 4 mg Q4HP PRN IV 04/16/24 05:00 Acetaminophen 650 mg Q6HP PRN PO 04/16/24 05:00 Nitroglycerin 0.4 mg Q5MINP PRN SL 04/16/24 05:00 Morphine Sulfate 2 mg Q30M PRN IV 04/16/24 05:00 04/19/24 15:38 2 MG Amiodarone HCl 400 mg DAILY PO 04/17/24 10:00 04/19/24 09:55 400 MG Pantoprazole Sodium 40 mg DAILY@0600 PO 04/17/24 06:00 04/19/24 06:21 40 MG Metoprolol Succinate 25 mg DAILY PO 04/17/24 10:00 04/17/24 10:00 25 MG Sacubitril/ Valsartan 0.5 tab BID PO 04/17/24 10:00 04/17/24 10:00 0.5 TAB Heparin Sodium (Porcine) 5,000 units Q8HR SC 04/18/24 06:00 04/18/24 15:13 5,000 UNITS objective Gen: nad heent: nc/at, mmm lungs: cta anteriorly cvs: no rub abd: soft, bowel sounds audible ext: no edema skin: no rash neuro: alert and oriented laboratory and microbiology Laboratory Tests 04/19/24 16:38 Test 04/19/24 16:38 Range/Units Serum Glucose 110 H 74-106 mg/dL Assessment/Plan ESRD on hemodialysis, out of the area Acute on chronic HFrEF, ejection fraction 20%. Hypertension Anemia of chronic disease Coronary artery disease Afib RVR leading to near syncope in setting of hypotension Plan/recommendation - HD 04/20, UF as hemodynamics permit - Patient to resume chronic outpatient dialysis at his facility in [place] upon discharge Plan discussed with: Patient TAYE PANIAGUA MD Apr 19, 2024 17:23
[2024-04-19] MEDS: ONDANSETRON HCL 4 MG/2 ML VIAL IV PRN (20:49)
[2024-04-20] VITALS (28 sets, daily range): BP systolic 58–171; BP diastolic 32–96; PULSE 69–122; RESP 15–29; TEMP 96.1–97.7; O2SAT 93–100
[2024-04-20] MEDS: SODIUM CHL 0.9% 1000 ML BAG XX ONE (07:00)
--- NOTE | 2024-04-20 11:40 | DVHINCON2 ---
Date of service: Apr 20, 2024 Referring Physician Hayde Roy NP Reason for Consultation Evaluation for AICD History of Present Illness This is a 64-year old male who initially presented (04/15/2024) with generalized weakness. Records indicate the patient had reported associated shortness of breath and dizziness which he was found to be hypotensive and subsequently initiated briefly on vasopressor therapy for hemodynamic support (later improved). Records further indicate patient was reportedly found in atrial fibrillation with rapid ventricular response which he was subsequently administered Amiodarone bolus resulting in successful chemical cardioversion. It is of note patient has an underlying history of coronary artery disease with reported (as per patient) last cardiac catheterization approximately 3-4 years ago in [place], [place] resulting in coronary revascularization/stenting which he remains on Plavix 75mg daily. As such, he carries an underlying diagnosis of dilated/ischemic cardiomyopathy with last known LVEF of 20% as per [facility] ardiogram (04/08/2024) which he remains on GDMT for systolic heart failure as managed by his primary Assistant Brand Manager Dr. Manuel in [place]. It is of note he is status post Biotronic dual-chamber permanent pacemaker implantation (2014) which records indicate patient furthermore has a previous history of tachyarrhythmias including paroxysmal atrial fibrillation and non-sustained ventricular tachycardia. EKG at present reveals a QRS > 120ms. HS troponin trend is found unremarkable (29 - 31 - 46). Electrolytes (potassium/magnesium) are found to be within normal range. As the patient has an underlying history of dilated/ischemic cardiomyopathy and tachyarrhythmias (NSVT) with last known LVEF of 20% despite GDMT for systolic heart failure and previous coronary revascula rization, Electrophysiology services have now been involved to evaluate the patient for potential AICD upgrade. Past Medical History Past medical history includes coronary artery disease status post previous PCI (multiple reported), systolic heart failure, dilated/ischemic cardiomyopathy, ESRD on hemodialysis status post RUE AVF, hyperlipidemia, pulmonary hy pertension, paroxysmal atrial fibrillation on chronic anticoagulation, non- sustained ventricular tachycardia, thrombocytopenia, status post dual chamber PPM implantation with Biotronic (2014), cardiac ablations (unknown type), status post right subclavian graft Past Surgical History Reviewed Allergies: Coded Allergies: NO KNOWN ALLERGIES (Unverified , 04/07/24) Home Meds Reported Medications Apixaban Base (ELIQUIS) 2.5 Mg Tab, 2.5 MG PO BID for 60 Days, #60 04/09/24 Dapagliflozin Propanediol (Farxiga) 10 Mg Tab, 1 TAB PO DAILY for 30 Days, #30 04/09/24 Aripiprazole (Aripiprazole) 5 Mg Tab, 1 TAB PO DAILY for 30 Days, #30 04/09/24 Review of Systems A 14-point review of systems is negative unless otherwise noted above Vital Signs Vital Signs Date Time Temp Pulse Resp B/P (MAP) Pulse Ox O2 Delivery O2 Flow Rate FiO2 04/20/24 10:00 79 96/60 04/20/24 09:00 97.3 17 95 97.3 04/19/24 20:00 Nasal Cannula* 2 28 Physical Exam Heart: S1 and S2 present Lungs: Scattered rhonchi. Abdomen: Benign. Extremities: Distal pulses palpable, 2+. With evidence for minimal peripheral edema Labs/Diagnostic Data Labs Test 04/19/24 16:38 04/18/24 06:29 04/17/24 19:49 04/17/24 07:52 Range/Units White Blood Count 2.4 L 4.4-10.8 10^3/uL Red Blood Count 3.07 L 4.5-5.90 10^6/uL Hemoglobin 9.6 L 13.5-17.5 g/dL Hematocrit 29.6 L 41.0-53.0 % Mean Corpuscular Volume 96.5 80.0-100.0 fL Mean Corpuscular Hemoglobin 31.3 28.0-32.0 pg Mean Corpuscular Hemoglobin Concent 32.4 32.0-36.0 g/dL Red Cell Distribution Width 17.6 H 11.8-14.3 % Platelet Count 102 L 140-450 10^3/uL Mean Platelet Volume 7.5 6.9-10.8 fL Neutrophils (%) (Auto) 68.1 37.0-80.0 % Lymphocytes (%) (Auto) 10.4 10.0-50.0 % Monocytes (%) (Auto) 13.9 H 0.0-12.0 % Eosinophils (%) (Auto) 6.2 0.0-7.0 % Basophils (%) (Auto) 1.4 0.0-2.0 % Neutrophils # (Auto) 1.6 1.6-8.6 10 ^3/uL Lymphocytes # (Auto) 0.3 L 0.4-5.4 10 ^3/uL Monocytes # (Auto) 0.3 0-1.3 10 ^3/uL Eosinophils # (Auto) 0.1 0-0.8 10 ^3/uL Basophils # (Auto) 0 0-0.2 10 ^3/uL Nucleated Red Blood Cells 0.2 % Sodium Level 133 L 136-145 mmol/L Potassium Level 4.2 3.5-5.1 mmol/L Chloride Level 98 98-107 mmol/L Carbon Dioxide Level 29 20-31 mmol/L Anion Gap 6 5-15 Blood Urea Nitrogen 42 H 9-23 mg/dL Creatinine 6.28 H 0.700-1.30 mg/dL Glomerular Filtration Rate Calc 9 >90 mL/min BUN/Creatinine Ratio 6.7 L 10.0-20.0 Serum Glucose 110 H 74-106 mg/dL Calcium Level 9.5 8.7-10.4 mg/dL Differential Total Cells Counted 100.0 100 Neutrophils % (Manual) 66 37.0-80.0 Band Neutrophils % (Manual) 0 Lymphocytes % (Manual) 8 L 10.0-50.0 Monocytes % (Manual) 18 H 0-12 Eosinophils % (Manual) 8 H 0-7 Basophils % (Manual) 0 0.0-2.0 Metamyelocytes % (manual) 0 Myelocytes % (Manual) 0 Promyelocytes % (Manual) 0 Blast Cells % (Manual) 0 Reactive Lymphocytes 0 Platelet Estimate Decreased Prothrombin Time 12.9 H 9.3-11.8 sec Prothrombin Time INR 1.24 H 0.9-1.15 Activated Partial Thromboplast Time 36.2 H 24.5-34.5 SEC Urine Color Light-yellow Yellow Urine Clarity Clear Clear Urine pH 6.0 5.0-9.0 Urine Specific [place] 1.009 1.001-1.035 Urine Protein 1+ H Negative Urine Ketones Negative Negative Urine Blood 3+ H Negative /uL Urine Nitrite Negative Negative Urine Bilirubin Negative Negative Urine Urobilinogen Normal Negative mg/dL Urine Leukocyte Esterase 1+ Negative /uL Urine RBC 102 0 - 3 /hpf Urine WBC 17 0 - 3 /hpf Urine Squamous Epithelial Cells Few <5 /hpf Urine Bacteria None seen None Seen /hpf Urine Glucose Normal Normal mg/dL Test 04/17/24 07:32 04/16/24 06:23 04/16/24 04:55 04/16/24 04:40 Range/Units Total Bilirubin 0.5 0.2-1.0 mg/dL Aspartate Amino Transferase (AST) 9 L 13-40 U/L Alanine Aminotransferase (ALT) < 9 7-40 U/L Alkaline Phosphatase 75 46-116 U/L Total Protein 6.1 5.7-8.2 g/dL Albumin 3.5 3.2-4.8 g/dL Influenza Type A Antigen Negative Negative Influenza Type B Antigen Negative Negative SARS-CoV-2 Antigen (Rapid) Negative NEGATIVE Lactic Acid Level 1.2 0.4-2.0 mmol/L Blood Gas Specimen Type Arterial Blood Gas Sample Site Left radial Blood Gas Patient Temperature 37.0 Arterial Blood Date Drawn [id number] Arterial Blood pH 7.392 7.350-7.450 Arterial Blood Partial Pressure CO2 39.7 35.0-48.0 mmHg Arterial Blood Partial Pressure O2 76.8 L 83.0-108.0 mmHg Arterial Blood HCO3 23.6 21.0-28.0 mmol/L Arterial Blood Oxygen Saturation 94.2 94.0-98.0 % Arterial Blood Base Excess -1.2 -2.0-3.0 mmol/L Arterial Blood Oxyhemoglobin 93.1 L 94.0-98.0 % Arterial Blood Carboxyhemoglobin 1.0 0.5-1.5 % Arterial Blood Methemoglobin 0.2 0.0-1.5 % Chilo Test Modified Blood Gas Total Hemoglobin 10.30 L 13.5-17.5 g/dL Blood Gas Liter Flow 2.00 Blood Gas Modality Nasal cannula FiO2 % 28.0 Test 04/16/24 01:35 04/15/24 22:27 Range/Units Magnesium Level 2.0 1.6-2.6 mg/dL Troponin I High Sensitivity 46 </=54 ng/L B-Type Natriuretic Peptide 2684.31 0-100 pg/mL Microbiology Date/Time Source Procedure Growth Status 04/16/24 10:02 Blood Blood Culture - Preliminary NO GROWTH AFTER 72 HOURS OF INCUBATION. Resulted Plan/Recommendation This is a 64-year old male who initially presented (04/15/2024) with generalized weakness. Records indicate the patient had reported associated shortness of breath and dizziness which he was found to be hypotensive and subsequently initiated briefly on vasopressor therapy for hemodynamic support (later improved). Records further indicate patient was reportedly found in atrial fibrillation with rapid ventricular response which he was subsequently a dministered Amiodarone bolus resulting in successful chemical cardioversion. It is of note patient has an underlying history of coronary artery disease with reported (as per patient) last cardiac catheterization approximately 3-4 years ago in [place], [place] resulting in coronary revascularization/stenting which he remains on Plavix 75mg daily. As such, he carries an underlying diagnosis of dilated/ischemic cardiomyopathy with last known LVEF of 20% as per Echocardiogram (04/08/2024) which he remains on GDMT for systolic heart failure as managed by his primary Assistant Brand Manager Dr. Manuel in [place]. It is of note he is status post Biotronic dual-chamber permanent pacemaker implantation (2014) which records indicate patient furthermore has a previous history of tachyarrhythmias including paroxysmal atrial fibrillation and non-sustained ventricular tachycardia. EKG at present reveals a QRS > 120ms. HS troponin trend is found unremarkable (29 - 31 - 46). Electrolytes (potassium/magnesium) are found to be within normal range. As the patient has an underlying history of dilated/ischemic cardiomyopathy and tachyarrhythmias (NSVT) with last known LVEF of 20% despite GDMT for systolic heart failure and previous coronary revascularization, Electrophysiology services have now been involved to evaluate the patient for potential AICD upgrade. Past medical history includes coronary artery disease status post previous PCI (multiple reported), systolic heart failure, dilated/ischemic cardiomyopathy, ESRD on hemodialysis status post RUE AVF, hyperlipidemia, pulmonary hypertension, paroxysmal atrial fibrillation on chronic anticoagulation, non- sustained ventricular tachycardia, thrombocytopenia, status post dual chamber PPM implantation with Biotronic (2014), cardiac ablations (unknown type), status post right subclavian graft Echocardiogram: (04/08/2024) Severely dilated left ventricle. Severely reduced left ventricular systolic function estimated ejection fraction 20%. There is global wall akinesia. There is a grade 1 diastolic dysfunction. Severely dilated right ventricle. Severely reduced right ventricular systolic function. Severely elevated right ventricular systolic pressure 75 mm of mercury. Severely dilated right and left atra. There is [id number] mitral valve regurgitation. There is [id number] tricuspid regurgitation. The aortic valve is mildly thickened and sclerotic, there is a trace of aortic valve regurgitation The pulmonary is grossly normal. No pericardial effusion. Assessment: Acute on chronic systolic heart failure (decompensated) Dilated/Ischemic cardiomyopathy, LVEF of 20% per Echocardiogram (04/08/2024) Coronary artery disease, status post previous coronary revascularization (PCI) Paroxysmal atrial fibrillation, on chronic anticoagulation Presence of Biotronic dual-chamber PPM (2014) QRS duration > 120 milliseconds Pulmonary hypertension ESRD on hemodialysis Pancytopenia Electrophysiology Suggestions for Management: As EKG at present reveals a QRS > 120ms in a patient with an underlying history of dilated/ischemic cardiomyopathy, and tachyarrhythmias (NSVT) with last known LVEF of 20% per Echocardiogram (04/08/2024) despite GDMT for systolic heart failure and previous coronary revascularization, patient benefits from undergoing ICD upgrade with addition of LV lead for primary prevention against SCD and cardiac resynchronization therapy. Benefits, risks, and alternatives were discussed at length with the patient which he is agreeable to the plan of care. As such, will tentatively plan for procedure this upcoming Saturday with Dr. Tamayo. Patient to be consented and NPO status at midnight (04/22/2024). Hold current Plavix and Eliquis. May proceed with Heparin injections during the interim (proceed with PLT surveillance) with plan to discontinue Saturday evening. Will proceed to follow from an EP perspective. Remains of cardiac management as per primary Cardiology Team. Proceed with close observation for overt signs of fluid overload Proceed with strict intakes, outputs, and daily weights Proceed with close rate and rhythm surveillance Proceed with close hemodynamic surveillance Proceed with optimized blood pressure control Transfuse to sustain HGB level above 7.0 Sustain Magnesium level greater than 2.0 Sustain Potassium level greater than 4.0 Follow up renal function and electrolytes Management in Telemetry Follow up Nephrology recommendations Follow up Primary Cardiology recommendations Will proceed to follow from a cardiac perspective Further recommendations per clinical progression All available diagnostic labs, EKG's, and images were personally reviewed Patient's status, findings, and plan of care was reviewed and discussed with supervising physician Dr. Tamayo, who is in agreement with current plan of care. Plan of care discussed with and agreed upon by patient / primary RN Prognosis: Guarded Thank you for allowing me to participate in the care of this patient. Further recommendations based on patients clinical course and progression, primary attending, and other consultants. Will continue to follow with primary attending. If you have any questions or concerns, please do not hesitate to contact me. A total of 75 minutes was spent reviewing the patient record, examining the patient, making a diagnostic and therapeutic plan, discussing this plan with medical personnel, following up on diagnostic studies and following the patient for clinical stability excluding any and all procedures. At least 50% of this time was spent in direct, [id number] contact. Plan discussed with: Patient, Other (Patient and Primary RN ) WILL MONTANEZ Apr 20, 2024 11:40
[2024-04-20] MEDS: ONDANSETRON HCL 4 MG/2 ML VIAL ONE (12:30)
--- NOTE | 2024-04-20 15:06 | DVHPN2 ---
Progress Note Date Seen: Apr 20, 2024 Resident Creating Document: ROMAINE MCGOVERN RESIDENT Medical Necessity Reason Pt with a Central, PICC or Fol: No Subjective Review of Systems Patient seen and examined at bedside. No any other new complaints. Objective vital signs Vital Sign Date Time Temp Pulse Resp B/P (MAP) Pulse Ox O2 Delivery O2 Flow Rate FiO2 04/20/24 14:00 143/74 (97) 04/20/24 12:57 96.1 80 17 93 96.1 04/19/24 20:00 Nasal Cannula* 2 28 Total Intake and Output 04/19/24 04/19/24 04/20/24 15:00 23:00 07:00 Intake Total 50 ml 100 ml Balance 50 ml 100 ml medications Current Medications Medications Dose Ordered Sig/Colleen Route Start Time Stop Time Status Last Admin Dose Admin Sodium Chloride 10 ml Q8HR IV 04/16/24 06:00 04/20/24 14:35 10 ML Docusate Sodium 100 mg BIDPRN PRN PO 04/16/24 04:30 Morphine Sulfate 2 mg Q4HPRN PRN IV 04/16/24 04:30 Atorvastatin Calcium 40 mg HS PO 04/16/24 22:00 04/18/24 22:46 40 MG Sevelamer HCl 800 mg TIDWM PO 04/16/24 08:00 04/18/24 18:51 800 MG Ceftriaxone Sodium 50 ml @ 100 mls/hr DAILY@09 IV 04/16/24 06:00 04/20/24 08:24 100 MLS/HR Ondansetron HCl 4 mg Q4HP PRN IV 04/16/24 05:00 04/20/24 12:29 4 MG Acetaminophen 650 mg Q6HP PRN PO 04/16/24 05:00 Nitroglycerin 0.4 mg Q5MINP PRN SL 04/16/24 05:00 Morphine Sulfate 2 mg Q30M PRN IV 04/16/24 05:00 04/19/24 15:38 2 MG Amiodarone HCl 400 mg DAILY PO 04/17/24 10:00 04/20/24 10:57 400 MG Pantoprazole Sodium 40 mg DAILY@0600 PO 04/17/24 06:00 04/20/24 06:05 40 MG Metoprolol Succinate 25 mg DAILY PO 04/17/24 10:00 04/17/24 10:00 25 MG Sacubitril/ Valsartan 0.5 tab BID PO 04/17/24 10:00 04/17/24 10:00 0.5 TAB Heparin Sodium (Porcine) 5,000 units Q8HR SC 04/18/24 06:00 04/20/24 06:11 5,000 UNITS Examination General Appearance: Cooperative. Well developed. Well nourished. NAD Head Exam: Normal inspection Neck Exam: Normal inspection. Non-tender. Normal alignment Pulmonary/Respiratory: Chest non-tender. Clear bilateral breath sounds Cardiovascular/Chest: Regular rate and rhythm. No murmurs. No JVD. Peripheral Pulses: 2+ Radial (R). 2+ Radial (L). 2+ Pedal (R). 2+ Pedal (L) Abdominal Exam: Normal bowel sounds. Soft. Nontender. No hepatospenomegaly. No masses Ankle Exam: Negative ankle edema Lower extremities: Negative lower extremity edema Neuro/Mental Status: A&O x4. Coherent Thoughts/Psych: Normal thought pattern. Appropriate mood and affect. laboratory and microbiology Laboratory Tests 04/19/24 16:38 Test 04/19/24 16:38 Range/Units Serum Glucose 110 H 74-106 mg/dL Microbiology Date/Time Source Procedure Growth Status 04/16/24 10:02 Blood Blood Culture - Preliminary NO GROWTH AFTER 72 HOURS OF INCUBATION. Resulted Problem List/Assessment/Plan Problem List/Assessment/Plan ESRD on hemodialysis, out of the area Acute on chronic HFrEF, ejection fraction 20%. Hypertension Anemia of chronic disease Coronary artery disease Afib RVR leading to near syncope in setting of hypotension Plan/recommendation -plan for hemodialysis today. -Regular Monitoring: Ensure frequent monitoring of blood pressure, electrolyte levels, and fluid balance. -renal diet -continue phosphate binder:Sevelamer -rest of the plan per primary care team -patient will resume outpatient hemodialysis in [place] upon discharge with his vfx artist. Plan discussed with: Patient ROMAINE MCGOVERN RESIDENT Apr 20, 2024 15:06
[2024-04-20] MEDS: PHENYLEPHRINE IV 250 ML IV SCH (15:15)
--- NOTE | 2024-04-20 15:45 | DVHPN2 ---
Subjective Patient reporting numbness to left arm. Also reporting lightheadedness, as well as his blood pressure reading low. Patient also with nausea. Reviewed: Care Plan, H&P, Labs, Medications Changes from previous H/P or p: No Changes General: Per HPI Objective Vitals Vital Signs Date Time Temp Pulse Resp B/P (MAP) Pulse Ox O2 Delivery O2 Flow Rate FiO2 04/20/24 14:00 143/74 (97) 04/20/24 12:57 96.1 80 17 93 96.1 04/19/24 20:00 Nasal Cannula* 2 28 Intake/Output Intake and Output 04/20/24 07:00 Intake Total 150 ml Balance 150 ml Intake Oral 100 ml IV Total 50 ml General Appearance: Alert, Oriented X3, Cooperative, mild distress HEENT: Atraumatic, PERRLA Lungs: Clear to auscultation Cardiovascular: Normal S1, Normal S2, Other (Multifocal atrial tachycardia with heart rate about 125 beats per minute) Abdomen: Normal bowel sounds, Soft, No tenderness Genitourinary: No Apparent Abnormalities Musculoskeletal: Normal sensory function, Normal motor function Neuro: Normal gait, Normal speech Psych/Mental Status: Mental status NL, Mood NL Medications Current Medications Medications Dose Ordered Sig/Colleen Route Start Time Stop Time Status Last Admin Dose Admin Sodium Chloride 10 ml Q8HR IV 04/16/24 06:00 04/20/24 14:35 10 ML Docusate Sodium 100 mg BIDPRN PRN PO 04/16/24 04:30 Morphine Sulfate 2 mg Q4HPRN PRN IV 04/16/24 04:30 Atorvastatin Calcium 40 mg HS PO 04/16/24 22:00 04/18/24 22:46 40 MG Sevelamer HCl 800 mg TIDWM PO 04/16/24 08:00 04/18/24 18:51 800 MG Ceftriaxone Sodium 50 ml @ 100 mls/hr DAILY@09 IV 04/16/24 06:00 04/20/24 08:24 100 MLS/HR Ondansetron HCl 4 mg Q4HP PRN IV 04/16/24 05:00 04/20/24 12:29 4 MG Acetaminophen 650 mg Q6HP PRN PO 04/16/24 05:00 Nitroglycerin 0.4 mg Q5MINP PRN SL 04/16/24 05:00 Morphine Sulfate 2 mg Q30M PRN IV 04/16/24 05:00 04/19/24 15:38 2 MG Amiodarone HCl 400 mg DAILY PO 04/17/24 10:00 04/20/24 10:57 400 MG Pantoprazole Sodium 40 mg DAILY@0600 PO 04/17/24 06:00 04/20/24 06:05 40 MG Metoprolol Succinate 25 mg DAILY PO 04/17/24 10:00 04/17/24 10:00 25 MG Phenylephrine HCl 250 ml @ 30 mls/hr Q8H20M IV 04/20/24 15:15 UNV Apixaban 2.5 mg BID PO 04/20/24 22:00 UNV Clopidogrel Bisulfate 75 mg DAILY PO 04/21/24 10:00 UNV Laboratory Results Laboratory Tests 04/19/24 16:38 Chemistry Test 04/19/24 16:38 Calcium Level 9.5 mg/dL (8.7-10.4) Urinalysis Test 04/17/24 07:52 Urine Color Light-yellow (Yellow) Urine Clarity Clear (Clear) Urine pH 6.0 (5.0-9.0) Urine Specific [place] 1.009 (1.001-1.035) Urine Protein 1+ (Negative) H Urine Ketones Negative (Negative) Urine Blood 3+ /uL (Negative) H Urine Nitrite Negative (Negative) Urine Bilirubin Negative (Negative) Urine Urobilinogen Normal mg/dL (Negative) Urine Leukocyte Esterase 1+ /uL (Negative) Urine RBC 102 /hpf (0 - 3) Urine WBC 17 /hpf (0 - 3) Urine Squamous Epithelial Cells Few /hpf (<5) Urine Bacteria None seen /hpf (None Seen) Urine Glucose Normal mg/dL (Normal) Microbiology Microbiology Date/Time Source Procedure Growth Status 04/16/24 10:02 Blood Blood Culture - Preliminary NO GROWTH AFTER 72 HOURS OF INCUBATION. Resulted Labs and/or images reviewed: Labs reviewed by me, Image(s) reviewed by me Assessment/Plan Assessment/Plan Impression: -hypotension secondary to atrial fibrillation and heart failure medication -acute on chronic systolic heart failure with ejection fraction 20% -pulmonary arterial hypertension with noted elevated RSVP -coronary artery disease with previous CABG -fever ESRD with HD -anemia of chronic disease -hyperkalemia -hypervolemic hyponatremia Plan: Events: I was called by the primary nurse regarding the patient having paresthesia to his left arm. When I assessed the patient, he was noted to have numbness, headache, nausea, as well as reporting that his blood pressure was reading in the 50s. I myself, measure the patient was blood pressure with a systolic remaining low at 72 mmHg. Patient was upgraded to ICU. Given the patient has a pacemaker that is not MRI compatible, patient will have CT scan of the head with IV contrast to rule out any acute pathology/CVA. Discussion made with housekeeping lead as well as ICU staff the patient will be upgraded and be placed on a phenylephrine drip. -continue amiodarone. Hold Toprol. Stop Entresto. -given cardiology recommendations: Restart Eliquis and Plavix. -nephrology consultation : Plans for HD today -hold antihypertensives and heart failure medications at this time -continue empiric antibiotic therapy -patient had venogram of the left arm, uncertain why. Images viewed. Radiology interpretation pending. -repeat labs in a.m. Critical care time spent with patient discussing and formulating plan of care: 40 minutes. This does not include time spent performing procedures. This medical document was created using an electronic medical record system with [employer] dictation system. Although this document has been carefully reviewed, there may still be some phonetic and typographical errors. These areas are purely typographical due to imperfections of the software programs, and do not reflect any compromise in the patient's medical care. Plan discussed with: Patient, Other (RN) My Orders Orders - MONIQUE MACDONALD NP Procedure Category Date Status Time Head Contrast Only CT 04/20/24 Logged 15:12 Transfer Orders XFER 04/20/24 Transmitted 15:12 Phenylephrine Iv PHA 04/20/24 Logged (Phenylephrine/Ns) 15:15 Apixaban (Eliquis) PHA 04/20/24 Logged 22:00 Clopidogrel Bisulfate PHA 04/21/24 Logged (Plavix) 10:00 Metoclopramide PHA 04/20/24 Transmitted Injection (Reglan 15:45 Erythrocyte LAB 04/20/24 Transmitted Sedimentation Rate 15:38 C-Reactive Protein LAB 04/20/24 Transmitted 15:38 Date of Service: Apr 20, 2024 Billing Provider: MONIQUE MACDONALD NP Common Visit Codes: [id number] CARE 30-74 MIN MONIQUE MACDONALD NP Apr 20, 2024 15:45
[2024-04-20] MEDS: METOCLOPRAMIDE HCL 5MG/ml INJ 2ml VIAL IV ONE (15:57)
[2024-04-20] MEDS: PHENYLEPHRINE IV 250 ML IV ONE (16:33)
[2024-04-20] MEDS: DIGOXIN (250MCG/ML) 2 ML AMPULE IV ONE (16:55)
[2024-04-20 16:59] LABS: Base Excess -1.2 mmol/L (-2.0-3.0)
--- NOTE | 2024-04-20 16:59 | DVHPN2 ---
Consult Progress Note Date Seen: Apr 20, 2024 Subjective Other Systems: Obtunded, ALOC Objective vital signs Vital Sign Date Time Temp Pulse Resp B/P (MAP) Pulse Ox O2 Delivery O2 Flow Rate FiO2 04/20/24 14:00 143/74 (97) 04/20/24 12:57 96.1 80 17 93 96.1 04/19/24 20:00 Nasal Cannula* 2 28 Total Intake and Output 04/19/24 04/19/24 04/20/24 15:00 23:00 07:00 Intake Total 50 ml 100 ml Balance 50 ml 100 ml medications Current Medications Medications Dose Ordered Sig/Colleen Route Start Time Stop Time Status Last Admin Dose Admin Sodium Chloride 10 ml Q8HR IV 04/16/24 06:00 04/20/24 14:35 10 ML Docusate Sodium 100 mg BIDPRN PRN PO 04/16/24 04:30 Morphine Sulfate 2 mg Q4HPRN PRN IV 04/16/24 04:30 Atorvastatin Calcium 40 mg HS PO 04/16/24 22:00 04/18/24 22:46 40 MG Sevelamer HCl 800 mg TIDWM PO 04/16/24 08:00 04/18/24 18:51 800 MG Ceftriaxone Sodium 50 ml @ 100 mls/hr DAILY@09 IV 04/16/24 06:00 04/20/24 08:24 100 MLS/HR Ondansetron HCl 4 mg Q4HP PRN IV 04/16/24 05:00 04/20/24 12:29 4 MG Acetaminophen 650 mg Q6HP PRN PO 04/16/24 05:00 Nitroglycerin 0.4 mg Q5MINP PRN SL 04/16/24 05:00 Morphine Sulfate 2 mg Q30M PRN IV 04/16/24 05:00 04/19/24 15:38 2 MG Amiodarone HCl 400 mg DAILY PO 04/17/24 10:00 04/20/24 10:57 400 MG Pantoprazole Sodium 40 mg DAILY@0600 PO 04/17/24 06:00 04/20/24 06:05 40 MG Metoprolol Succinate 25 mg DAILY PO 04/17/24 10:00 04/17/24 10:00 25 MG Phenylephrine HCl 250 ml @ 30 mls/hr Q8H20M IV 04/20/24 15:15 Apixaban 2.5 mg BID PO 04/20/24 22:00 Clopidogrel Bisulfate 75 mg DAILY PO 04/21/24 10:00 Digoxin 0.125 mg EOD PO 04/22/24 10:00 Examination: GENERAL:Abnormal, LUNGS:Abnormal (Dimimished bilaterally, increased work of breathing, + accessory muscle use ), CVS:Abnormal (A-fib with RVR), NEURO:Abnormal (Obtunded, ALOC) laboratory and microbiology Laboratory Tests 04/19/24 16:38 Test 04/19/24 16:38 Range/Units Serum Glucose 110 H 74-106 mg/dL Problem List/Assessment/Plan Problem List/Assessment/Plan Acute on chronic decompensated HFrEF, NYHA Class IV Dilated/ischemic cardiomyopathy with LVEF of 20% Coronary artery disease status post PCIs x3 RASHEEDA, on Plavix Paroxysmal atrial fibrillation, on low-dose Eliquis/amiodarone Presence of permanent pacemaker ([employer], 2015) Pulmonary hypertension, severe Status post cardiac ablations x 3 Status post right subclavian graft ESRD on HD Anemia in chronic disease Thrombocytopenia Plan/Recommendation (Dr. Pierre) Echocardiogram revealed an EF of 20% with global akinesia. RVSP 75 mmHg. Continue low-dose Eliquis and Plavix therapy. Hold BP medications in the setting of acute hypotension and initiate vasopressor as necessary. Hold SGLT2i and mineralocorticoid given ESRD. Continue antiarrhythmic, amiodarone. Continue preload and afterload reduction along with HD treatments per Nephrology. EP consult with Dr. Tamayo for ICD assessment given tachyarrhythmias with NSVT and severe cardiomyopathy. Pacemaker interrogation from recent admission was unremarkable. Found obtunded with drastic change in mental status. Agree with head CT STAT. Obtain ABG, CBC, and CMP. Given A-fib with RVR, load on digoxin therapy and continue maintenance every other day. Hold BP medications in the setting of hypotension and initiate vasopressor. Thank you for allowing us to participate in this patient's care. Please call if you have any questions or concerns. Critical care time: 35 min. This medical document was created using an electronic medical record system with voice recognition software and computerized dictation system. Although this document has been carefully reviewed, there might still be some phonetic and typographical errors. Occasional wrong-word or ``sound-alike substitutions may have occurred due to the inherent limitations of voice recognition software. These areas are purely typographical due to imperfections of the software programs and do not reflect any compromise in the patient's medical care. Please read the chart carefully and recognize, using context, where these substitutions have occurred. Plan discussed with: Other Date of Service: Apr 20, 2024 Billing Provider: RAHUL PIERRE MD Cardiology Common Codes: [id number] CARE 30-74 MIN ANAYELI CALVILLO [facility] Apr 20, 2024 16:59
[2024-04-20] MEDS: IOHEXOL 350 MG/ML 100ML IJ ONE (17:01)
[2024-04-20 17:20] LABS: Basophils # (auto) 0 10 ^3/uL (0-0.2); Basophils % (auto) 1.2 % (0.0-2.0); Eosinophils # (auto) 0.1 10 ^3/uL (0-0.8); Eosinophils % (auto) 2.5 % (0.0-7.0); Hematocrit 27.7 % (41.0-53.0); Hemoglobin 8.8 g/dL (13.5-17.5); Lymphocytes # (auto) 0.3 10 ^3/uL (0.4-5.4); Lymphocytes % (auto) 9.8 % (10.0-50.0); Mean Corpuscular Hemoglobin 31.2 pg (28.0-32.0); Mean Corpuscular Hgb Conc. 31.9 g/dL (32.0-36.0); Mean Corpuscular Volume 97.7 fL (80.0-100.0); Monocytes # (auto) 0.3 10 ^3/uL (0-1.3); Monocytes % (auto) 10.7 % (0.0-12.0); Neutrophils # (auto) 2.4 10 ^3/uL (1.6-8.6); Neutrophils % (auto) 75.8 % (37.0-80.0); Nucleated Red Blood Cells % 0.1 %; Platelet Count (auto) 114 10^3/uL (140-450); Red Blood Cells 2.84 10^6/uL (4.5-5.90); Red Cell Distribution Width 18.4 % (11.8-14.3); White Blood Cell 3.2 10^3/uL (4.4-10.8)
--- NOTE | 2024-04-20 17:33 | DVH ---
EXAM: CT HEAD WITHOUT CONTRAST HISTORY: rule out CVA COMPARISON: None TECHNIQUE: Axial images of the head were obtained and reformatted in coronal and sagittal planes. All CT scans at this medical facility are performed using dose modulation techniques as appropriate t o a performed exam including the following: Automated exposure control was utilized; adjustment of th e MA and/or KV according to patient size; and use of iterative reconstruction technique. CT Dose: CTDI volume is 53.86 mGy. Dose-length product is 973.02 mGy*cm FINDINGS: There is no evidence of acute intracranial hemorrhage, mass, mass effect midline shift. There is no h ydrocephalus or extra-axial fluid collection. Fnoseca-white matter differentiation is maintained. The visualized paranasal sinuses and mastoid air cells are clear. The calvarium is intact. IMPRESSION: 1. No acute intracranial process. HS:Y
[2024-04-20 17:48] LABS: Albumin 3.3 g/dL (3.2-4.8); Alkaline Phosphatase 76 U/L (46-116); Anion Gap 6 (5-15); BUN/Creatinine Ratio 6.5 (10.0-20.0); Bilirubin, Total 0.4 mg/dL (0.2-1.0); Calcium 9.5 mg/dL (8.7-10.4); Carbon Dioxide 28 mmol/L (20-31); Chloride 100 mmol/L (98-107); Glucose 94 mg/dL (74-106); Potassium 4.5 mmol/L (3.5-5.1); Total Protein 5.7 g/dL (5.7-8.2)
[2024-04-20 17:49] LABS: Alanine Aminotransferase < 9 U/L (7-40); Aspartate Aminotransferase 11 U/L (13-40); Blood Urea Nitrogen 44 mg/dL (9-23); Sodium 134 mmol/L (136-145)
[2024-04-20 18:08] LABS: Erythrocyte Sedimentation Rate 23 mm/hr (0-20)
--- NOTE | 2024-04-20 20:59 | DVHPN2 ---
Progress Note Date Seen: Apr 20, 2024 Medical Necessity Reason Pt with a Central, PICC or Fol: No Subjective Patient reports: No new complaints Review of Systems: HEENT:Normal, CVS:Normal, RESPIRATORY:Normal, GI:Normal, :Normal, MSK:Normal, NEURO:Normal Objective vital signs Vital Sign Date Time Temp Pulse Resp B/P (MAP) Pulse Ox O2 Delivery O2 Flow Rate FiO2 04/20/24 16:55 130 04/20/24 14:00 143/74 (97) 04/20/24 12:57 96.1 17 93 96.1 04/20/24 08:00 Nasal Cannula* 2 28 Total Intake and Output 04/19/24 04/19/24 04/20/24 15:00 23:00 07:00 Intake Total 50 ml 100 ml Balance 50 ml 100 ml medications Current Medications Medications Dose Ordered Sig/Colleen Route Start Time Stop Time Status Last Admin Dose Admin Sodium Chloride 10 ml Q8HR IV 04/16/24 06:00 04/20/24 14:35 10 ML Docusate Sodium 100 mg BIDPRN PRN PO 04/16/24 04:30 Morphine Sulfate 2 mg Q4HPRN PRN IV 04/16/24 04:30 Atorvastatin Calcium 40 mg HS PO 04/16/24 22:00 04/18/24 22:46 40 MG Sevelamer HCl 800 mg TIDWM PO 04/16/24 08:00 04/18/24 18:51 800 MG Ceftriaxone Sodium 50 ml @ 100 mls/hr DAILY@09 IV 04/16/24 06:00 04/20/24 08:24 100 MLS/HR Ondansetron HCl 4 mg Q4HP PRN IV 04/16/24 05:00 04/20/24 12:29 4 MG Acetaminophen 650 mg Q6HP PRN PO 04/16/24 05:00 Nitroglycerin 0.4 mg Q5MINP PRN SL 04/16/24 05:00 Morphine Sulfate 2 mg Q30M PRN IV 04/16/24 05:00 04/19/24 15:38 2 MG Amiodarone HCl 400 mg DAILY PO 04/17/24 10:00 04/20/24 10:57 400 MG Pantoprazole Sodium 40 mg DAILY@0600 PO 04/17/24 06:00 04/20/24 06:05 40 MG Metoprolol Succinate 25 mg DAILY PO 04/17/24 10:00 04/17/24 10:00 25 MG Phenylephrine HCl 250 ml @ 30 mls/hr Q8H20M IV 04/20/24 15:15 Digoxin 0.125 mg EOD PO 04/22/24 10:00 Heparin Sodium (Porcine) 5,000 units Q12HR SC 04/21/24 10:00 UNV Examination: GENERAL:Normal, HEENT:Normal, NECK:Normal, LUNGS:Abnormal, CVS:Normal, ABDOMEN:Normal, MSK:Normal, SKIN:Normal, NEURO:Normal, :Normal laboratory and microbiology Laboratory Tests 04/20/24 16:48 Test 04/20/24 16:48 Range/Units Serum Glucose 94 74-106 mg/dL Microbiology Date/Time Source Procedure Growth Status 04/16/24 10:02 Blood Blood Culture - Preliminary NO GROWTH AFTER 72 HOURS OF INCUBATION. Resulted Problem List/Assessment/Plan Problem List/Assessment/Plan ESRD on hemodialysis, out of the area Acute on chronic HFrEF, ejection fraction 20%. Hypertension Anemia of chronic disease Coronary artery disease Afib RVR leading to near syncope in setting of hypotension Plan/recommendation - HD 04/21 - Patient to resume chronic outpatient dialysis at his facility in [place] upon discharge Plan discussed with: Patient ADITYA DUNCAN MD Apr 20, 2024 20:59
[2024-04-20] MEDS: EPOETIN ALFA-EPBX 10,000 UNIT/1ML VIAL SC ONE (21:00)
[2024-04-20] MEDS ORDERED: APIXABAN 2.5 MG TAB PO SCH (22:00)
[2024-04-21] VITALS (43 sets, daily range): BP systolic 115–172; BP diastolic 33–89; PULSE 64–119; RESP 14–25; TEMP 96.8–98.7; O2SAT 92–100
[2024-04-21 05:26] LABS: Basophils # (auto) 0.1 10 ^3/uL (0-0.2); Basophils % (auto) 1.7 % (0.0-2.0); Eosinophils # (auto) 0.1 10 ^3/uL (0-0.8); Eosinophils % (auto) 2.5 % (0.0-7.0); Hematocrit 31.1 % (41.0-53.0); Lymphocytes # (auto) 0.3 10 ^3/uL (0.4-5.4); Lymphocytes % (auto) 7.9 % (10.0-50.0); Mean Corpuscular Hemoglobin 31.4 pg (28.0-32.0); Monocytes # (auto) 0.5 10 ^3/uL (0-1.3); Monocytes % (auto) 13.3 % (0.0-12.0); Neutrophils # (auto) 2.7 10 ^3/uL (1.6-8.6); Neutrophils % (auto) 74.6 % (37.0-80.0); Nucleated Red Blood Cells % 0.1 %; Platelet Count (auto) 123 10^3/uL (140-450); Red Blood Cells 3.18 10^6/uL (4.5-5.90); White Blood Cell 3.6 10^3/uL (4.4-10.8)
[2024-04-21 05:34] LABS: Albumin 3.7 g/dL (3.2-4.8); Alkaline Phosphatase 89 U/L (46-116); Anion Gap 8 (5-15); BUN/Creatinine Ratio 7.4 (10.0-20.0); Calcium 10.4 mg/dL (8.7-10.4); Carbon Dioxide 28 mmol/L (20-31); Glucose 99 mg/dL (74-106)
[2024-04-21 05:35] LABS: Bilirubin, Total 0.5 mg/dL (0.2-1.0); Total Protein 6.2 g/dL (5.7-8.2)
[2024-04-21 05:51] LABS: Alanine Aminotransferase < 9 U/L (7-40); Aspartate Aminotransferase 10 U/L (13-40); Blood Urea Nitrogen 56 mg/dL (9-23); Chloride 97 mmol/L (98-107); Potassium 5.3 mmol/L (3.5-5.1); Sodium 133 mmol/L (136-145)
--- NOTE | 2024-04-21 08:22 | DVHPN2 ---
Consult Progress Note Date Seen: Apr 21, 2024 Subjective Other Systems: No overnight cardiac events reported Objective vital signs Vital Sign Date Time Temp Pulse Resp B/P (MAP) Pulse Ox O2 Delivery O2 Flow Rate FiO2 04/21/24 07:00 77 19 149/59 (89) 98 04/21/24 06:00 Oxymizer 4 N/A 04/21/24 04:00 97.7 97.7 Total Intake and Output 04/20/24 04/20/24 04/21/24 15:00 23:00 07:00 Intake Total 50 ml 430 ml Balance 50 ml 430 ml medications Current Medications Medications Dose Ordered Sig/Colleen Route Start Time Stop Time Status Last Admin Dose Admin Sodium Chloride 10 ml Q8HR IV 04/16/24 06:00 04/21/24 06:10 10 ML Docusate Sodium 100 mg BIDPRN PRN PO 04/16/24 04:30 Morphine Sulfate 2 mg Q4HPRN PRN IV 04/16/24 04:30 Atorvastatin Calcium 40 mg HS PO 04/16/24 22:00 04/20/24 21:49 40 MG Sevelamer HCl 800 mg TIDWM PO 04/16/24 08:00 04/18/24 18:51 800 MG Ceftriaxone Sodium 50 ml @ 100 mls/hr DAILY@09 IV 04/16/24 06:00 04/20/24 08:24 100 MLS/HR Ondansetron HCl 4 mg Q4HP PRN IV 04/16/24 05:00 04/20/24 12:29 4 MG Acetaminophen 650 mg Q6HP PRN PO 04/16/24 05:00 Nitroglycerin 0.4 mg Q5MINP PRN SL 04/16/24 05:00 Morphine Sulfate 2 mg Q30M PRN IV 04/16/24 05:00 04/19/24 15:38 2 MG Amiodarone HCl 400 mg DAILY PO 04/17/24 10:00 04/20/24 10:57 400 MG Pantoprazole Sodium 40 mg DAILY@0600 PO 04/17/24 06:00 04/21/24 06:07 40 MG Metoprolol Succinate 25 mg DAILY PO 04/17/24 10:00 04/17/24 10:00 25 MG Phenylephrine HCl 250 ml @ 30 mls/hr Q8H20M IV 04/20/24 15:15 Digoxin 0.125 mg EOD PO 04/22/24 10:00 Heparin Sodium (Porcine) 5,000 units Q12HR SC 04/21/24 10:00 Examination: LUNGS:Abnormal (Diminished), CVS:Normal (Paced rhythhm, controlled rate), NEURO:Normal (A&O x 3, somnolent) laboratory and microbiology Laboratory Tests 04/21/24 04:40 Test 04/21/24 04:40 Range/Units Serum Glucose 99 74-106 mg/dL Problem List/Assessment/Plan Problem List/Assessment/Plan Acute on chronic decompensated HFrEF, NYHA Class IV Dilated/ischemic cardiomyopathy with LVEF of 20% Coronary artery disease status post PCIs x3 RASHEEDA, on Plavix Paroxysmal atrial fibrillation, on low-dose Eliquis/amiodarone Presence of permanent pacemaker ([employer], 2015) Pulmonary hypertension, severe Status post cardiac ablations x 3 Status post right subclavian graft ESRD on HD Anemia in chronic disease Thrombocytopenia Plan/Recommendation (Dr. Pierre) Echocardiogram revealed an EF of 20% with global akinesia. RVSP 75 mmHg. Continue low-dose beta serena with parameters. Hold SGLT2i and mineralocorticoid given ESRD. Continue antiarrhythmic, amiodarone. Continue preload and afterload reduction along with HD treatments per Nephrology. Scheduled for ICD upgrade with addition of LV lead for primary prevention against SCD and cardiac resynchronization therapy with Dr. Tamayo on 04/22/2024. Clarify with EP team low-dose Eliquis and Plavix therapy continuation given upcoming procedure. Pacemaker interrogation from recent admission was unremarkable. Thank you for allowing us to care for this patient. Critical care time: 30 min. This medical document was created using an electronic medical record system with voice recognition software and computerized dictation system. Although this document has been carefully reviewed, there might still be some phonetic and typographical errors. Occasional wrong-word or ``sound-alike substitutions may have occurred due to the inherent limitations of voice recognition software. These areas are purely typographical due to imperfections of the software programs and do not reflect any compromise in the patient's medical care. Please read the chart carefully and recognize, using context, where these substitutions have occurred. Plan discussed with: Patient, Other Date of Service: Apr 21, 2024 Billing Provider: RAHUL PIERRE MD Cardiology Common Codes: [id number] CARE 30-74 MIN ANAYELI CALVILLO [facility] Apr 21, 2024 08:22
[2024-04-21] MEDS: SODIUM CHL 0.9% 1000 ML BAG XX ONE (09:45)
[2024-04-21] MEDS ORDERED: CLOPIDOGREL BISULFATE 75 MG TAB PO SCH (10:00)
[2024-04-21] MEDS: HEPARIN SODIUM (PORCINE) 5000 UNITS/ML 1ML VIAL SC SCH (10:00)
[2024-04-21 10:06] LABS: Magnesium 2.3 mg/dL (1.6-2.6)
[2024-04-21 10:12] LABS: Phosphorus 5.3 mg/dL (2.4-5.1)
--- NOTE | 2024-04-21 10:15 | DVHPN2 ---
Subjective Patient more awake and following commands. States that his headache, left arm paresthesia, nausea has resolved from yesterday. Reviewed: Care Plan, H&P, Labs, Medications Changes from previous H/P or p: Changes General: Per HPI Objective Vitals Vital Signs Date Time Temp Pulse Resp B/P (MAP) Pulse Ox O2 Delivery O2 Flow Rate FiO2 04/21/24 08:00 80 16 155/79 (104) 98 04/21/24 06:00 Oxymizer 4 N/A 04/21/24 04:00 97.7 97.7 Intake/Output Intake and Output 04/21/24 07:00 Intake Total 480 ml Balance 480 ml Intake Oral 300 ml IV Total 50 ml Other 130 ml General Appearance: Alert, Oriented X3, Cooperative, mild distress HEENT: Atraumatic, PERRLA Lungs: Clear to auscultation Cardiovascular: Normal S1, Normal S2, Other (Multifocal atrial tachycardia with heart rate about 125 beats per minute) Abdomen: Normal bowel sounds, Soft, No tenderness Genitourinary: No Apparent Abnormalities Musculoskeletal: Normal sensory function, Normal motor function Neuro: Normal gait, Normal speech Skin: Dry, Intact Psych/Mental Status: Mental status NL, Mood NL Medications Current Medications Medications Dose Ordered Sig/Colleen Route Start Time Stop Time Status Last Admin Dose Admin Sodium Chloride 10 ml Q8HR IV 04/16/24 06:00 04/21/24 06:10 10 ML Docusate Sodium 100 mg BIDPRN PRN PO 04/16/24 04:30 Morphine Sulfate 2 mg Q4HPRN PRN IV 04/16/24 04:30 Atorvastatin Calcium 40 mg HS PO 04/16/24 22:00 04/20/24 21:49 40 MG Sevelamer HCl 800 mg TIDWM PO 04/16/24 08:00 04/18/24 18:51 800 MG Ceftriaxone Sodium 50 ml @ 100 mls/hr DAILY@09 IV 04/16/24 06:00 04/21/24 09:02 100 MLS/HR Ondansetron HCl 4 mg Q4HP PRN IV 04/16/24 05:00 04/20/24 12:29 4 MG Acetaminophen 650 mg Q6HP PRN PO 04/16/24 05:00 Nitroglycerin 0.4 mg Q5MINP PRN SL 04/16/24 05:00 Morphine Sulfate 2 mg Q30M PRN IV 04/16/24 05:00 04/19/24 15:38 2 MG Amiodarone HCl 400 mg DAILY PO 04/17/24 10:00 04/20/24 10:57 400 MG Pantoprazole Sodium 40 mg DAILY@0600 PO 04/17/24 06:00 04/21/24 06:07 40 MG Metoprolol Succinate 25 mg DAILY PO 04/17/24 10:00 04/17/24 10:00 25 MG Phenylephrine HCl 250 ml @ 30 mls/hr Q8H20M IV 04/20/24 15:15 Digoxin 0.125 mg EOD PO 04/22/24 10:00 Heparin Sodium (Porcine) 5,000 units Q12HR SC 04/21/24 10:00 Laboratory Results Laboratory Tests 04/21/24 04:40 Chemistry Test 04/20/24 16:48 04/21/24 04:40 Albumin 3.3 g/dL (3.2-4.8) 3.7 g/dL (3.2-4.8) Calcium Level 9.5 mg/dL (8.7-10.4) 10.4 mg/dL (8.7-10.4) Total Protein 5.7 g/dL (5.7-8.2) 6.2 g/dL (5.7-8.2) Magnesium Level 2.3 mg/dL (1.6-2.6) Phosphorus Level Pending LFT Test 04/20/24 16:48 04/21/24 04:40 Alanine Aminotransferase (ALT) < 9 U/L (7-40) < 9 U/L (7-40) Alkaline Phosphatase 76 U/L (46-116) 89 U/L (46-116) Aspartate Amino Transferase (AST) 11 U/L (13-40) L 10 U/L (13-40) L Total Bilirubin 0.4 mg/dL (0.2-1.0) 0.5 mg/dL (0.2-1.0) Urinalysis Test 04/17/24 07:52 Urine Color Light-yellow (Yellow) Urine Clarity Clear (Clear) Urine pH 6.0 (5.0-9.0) Urine Specific [place] 1.009 (1.001-1.035) Urine Protein 1+ (Negative) H Urine Ketones Negative (Negative) Urine Blood 3+ /uL (Negative) H Urine Nitrite Negative (Negative) Urine Bilirubin Negative (Negative) Urine Urobilinogen Normal mg/dL (Negative) Urine Leukocyte Esterase 1+ /uL (Negative) Urine RBC 102 /hpf (0 - 3) Urine WBC 17 /hpf (0 - 3) Urine Squamous Epithelial Cells Few /hpf (<5) Urine Bacteria None seen /hpf (None Seen) Urine Glucose Normal mg/dL (Normal) Blood Gas Results Test 04/20/24 16:53 Arterial Blood pH 7.302 (7.350-7.450) FiO2 % 100.0 Microbiology Microbiology Date/Time Source Procedure Growth Status 04/16/24 10:02 Blood Blood Culture - Preliminary NO GROWTH AFTER 72 HOURS OF INCUBATION. Resulted Labs and/or images reviewed: Labs reviewed by me, Image(s) reviewed by me Assessment/Plan Assessment/Plan Impression: -hypotension secondary to atrial fibrillation and heart failure medication -acute on chronic systolic heart failure with ejection fraction 20% -pulmonary arterial hypertension with noted elevated RSVP -coronary artery disease with previous CABG -fever ESRD with HD -anemia of chronic disease -hyperkalemia -hypervolemic hyponatremia Plan: Events: CT scan of the head negative for any acute pathology. Symptoms probably secondary to severe hypotension. Blood pressure improved. Plans for HD today. Keep patient in step-down ICU until HD has been completed. Plans for ICD upgrade tomorrow. -continue amiodarone. Hold Toprol and Entresto -given cardiology recommendations: Hold Eliquis and Plavix given patient was going for ICD upgrade tomorrow. -nephrology consultation : Plans for HD today -hold antihypertensives and heart failure medications at this time -continue empiric antibiotic therapy -patient had venogram of the left arm, uncertain why. Images viewed. Radiology interpretation pending. -repeat labs in a.m. Critical care time spent with patient discussing and formulating plan of care: 40 minutes. This does not include time spent performing procedures. This medical document was created using an electronic medical record system with [employer] system. Although this document has been carefully reviewed, there may still be some phonetic and typographical errors. These areas are purely typographical due to imperfections of the software programs, and do not reflect any compromise in the patient's medical care. Plan discussed with: Patient, Other (RN) My Orders Orders - MONIQUE MACDONALD NP Procedure Category Date Status Time Transfer Orders XFER 04/20/24 Transmitted 15:12 Phenylephrine Iv PHA 04/20/24 In Process (Phenylephrine/Ns) 15:15 Abg W/ Co-Ox RT 04/20/24 Logged 16:[address] 04/20/24 Resulted 15:12 Mrsa Screen DAYAN 04/20/24 In Process 17:34 Phosphorus LAB 04/21/24 In Process 09:07 Magnesium LAB 04/21/24 In Process 09:07 Date of Service: Apr 21, 2024 Billing Provider: MONIQUE MACDONALD NP Common Visit Codes: [id number] CARE 30-74 MIN MONIQUE MACDONALD NP Apr 21, 2024 10:15
--- NOTE | 2024-04-21 14:57 | DVHPN2 ---
Progress Note - Dictate Date Seen: Apr 21, 2024 Medical Necessity Reason Pt with a Central, PICC or Fol: No vital signs Vital Sign Date Time Temp Pulse Resp B/P (MAP) Pulse Ox O2 Delivery O2 Flow Rate FiO2 04/21/24 14:05 83 172/45 04/21/24 14:00 16 98 Oxymizer 4 N/A 04/21/24 12:00 97.4 97.4 Total Intake and Output 04/20/24 04/20/24 04/21/24 15:00 23:00 07:00 Intake Total 50 ml 430 ml Balance 50 ml 430 ml medications Current Medications Medications Dose Ordered Sig/Colleen Route Start Time Stop Time Status Last Admin Dose Admin Sodium Chloride 10 ml Q8HR IV 04/16/24 06:00 04/21/24 14:04 10 ML Docusate Sodium 100 mg BIDPRN PRN PO 04/16/24 04:30 Morphine Sulfate 2 mg Q4HPRN PRN IV 04/16/24 04:30 Atorvastatin Calcium 40 mg HS PO 04/16/24 22:00 04/20/24 21:49 40 MG Sevelamer HCl 800 mg TIDWM PO 04/16/24 08:00 04/21/24 14:04 800 MG Ceftriaxone Sodium 50 ml @ 100 mls/hr DAILY@09 IV 04/16/24 06:00 04/21/24 09:02 100 MLS/HR Ondansetron HCl 4 mg Q4HP PRN IV 04/16/24 05:00 04/20/24 12:29 4 MG Acetaminophen 650 mg Q6HP PRN PO 04/16/24 05:00 Nitroglycerin 0.4 mg Q5MINP PRN SL 04/16/24 05:00 Morphine Sulfate 2 mg Q30M PRN IV 04/16/24 05:00 04/19/24 15:38 2 MG Amiodarone HCl 400 mg DAILY PO 04/17/24 10:00 04/21/24 14:04 400 MG Pantoprazole Sodium 40 mg DAILY@0600 PO 04/17/24 06:00 04/21/24 06:07 40 MG Metoprolol Succinate 25 mg DAILY PO 04/17/24 10:00 04/21/24 14:05 25 MG Phenylephrine HCl 250 ml @ 30 mls/hr Q8H20M IV 04/20/24 15:15 Digoxin 0.125 mg EOD PO 04/22/24 10:00 Heparin Sodium (Porcine) 5,000 units Q12HR SC 04/21/24 10:00 objective Pt seen in SDU with plans for PM upgrade to ICD tomorrow with Dr Tamayo. Chart reviewed laboratory and microbiology Laboratory Tests 04/21/24 04:40 Test 04/21/24 04:40 Range/Units Serum Glucose 99 74-106 mg/dL Assessment/Plan This is a 64-year old male who initially presented (04/15/2024) with generalized weakness. Records indicate the patient had reported associated shortness of breath and dizziness which he was found to be hypotensive and subsequently initiated briefly on vasopressor therapy for hemodynamic support (later improved). Records further indicate patient was reportedly found in atrial fibrillation with rapid ventricular response which he was subsequently administered Amiodarone bolus resulting in successful chemical cardioversion. It is of note patient has an underlying history of coronary artery disease with reported (as per patient) last cardiac catheterization approximately 3-4 years ago in [place], [place] resulting in coronary revascularization/stenting which he remains on Plavix 75mg daily. As such, he carries an underlying diagnosis of dilated/ischemic cardiomyopathy with last known LVEF of 20% as per Echocardiogram (04/08/2024) which he remains on GDMT for systolic heart failure as managed by his primary Director Commercial Sales Dr. Manuel in [place]. It is of note he is status post Biotronic dual-chamber permanent pacemaker implantation (2014) which records indicate patient furthermore has a previous history of tachyarrhythmias including paroxysmal atrial fibrillation and non-sustained ventricular tachycardia. EKG at present reveals a QRS > 120ms. HS troponin trend is found unremarkable (29 - 31 - 46). Electrolytes (potassium/magnesium) are found to be within normal range. As the patient has an underlying history of dilated/ischemic cardiomyopathy and tachyarrhythmias (NSVT) with last known LVEF of 20% despite GDMT for systolic heart failure and previous coronary revascularization, Electrophysiology services have now been involved to evaluate the patient for potential AICD upgrade. Past medical history includes coronary artery disease status post previous PCI (multiple reported), systolic heart failure, dilated/ischemic cardiomyopathy, ESRD on hemodialysis status post RUE AVF, hyperlipidemia, pulmonary hypertension, paroxysmal atrial fibrillation on chronic anticoagulation, non- sustained ventricular tachycardia, thrombocytopenia, status post dual chamber PPM implantation with Biotronic (2014), cardiac ablations (unknown type), status post right subclavian graft Echocardiogram: (04/08/2024) Severely dilated left ventricle. Severely reduced left ventricular systolic function estimated ejection fraction 20%. There is global wall akinesia. There is a grade 1 diastolic dysfunction. Severely dilated right ventricle. Severely reduced right ventricular systolic function. Severely elevated right ventricular systolic pressure 75 mm of mercury. Severely dilated right and left atra. There is [id number] mitral valve regurgitation. There is [id number] tricuspid regurgitation. The aortic valve is mildly thickened and sclerotic, there is a trace of aortic valve regurgitation The pulmonary is grossly normal. No pericardial effusion. Assessment: Acute on chronic systolic heart failure (decompensated) Dilated/Ischemic cardiomyopathy, LVEF of 20% per Echocardiogram (04/08/2024) Coronary artery disease, status post previous coronary revascularization (PCI) Paroxysmal atrial fibrillation, on chronic anticoagulation Presence of Biotronic dual-chamber PPM (2014) QRS duration > 120 milliseconds Pulmonary hypertension ESRD on hemodialysis Pancytopenia Electrophysiology Suggestions for Management: As EKG at present reveals a QRS > 120ms in a patient with an underlying history of dilated/ischemic cardiomyopathy, and tachyarrhythmias (NSVT) with last known LVEF of 20% per Echocardiogram (04/08/2024) despite GDMT for systolic heart failure and previous coronary revascularization, patient benefits from undergoing ICD upgrade with addition of LV lead for primary prevention against SCD and cardiac resynchronization therapy. Benefits, risks, and alternatives were discussed at length with the patient which he is agreeable to the plan of care. As such, will plan for procedure this upcoming Saturday04/22/24, with Dr. Tamayo. Patient has been consented and will be NPO status at midnight (04/22/2024). Hold current Plavix and Eliquis. May proceed with Heparin injections during the interim (proceed with PLT surveillance) with plan to discontinue Saturday evening. Will proceed to follow from an EP perspective. Remains of cardiac management as per primary Cardiology Team. Proceed with close observation for overt signs of fluid overload Proceed with strict intakes, outputs, and daily weights Proceed with close rate and rhythm surveillance Proceed with close hemodynamic surveillance Proceed with optimized blood pressure control Transfuse to sustain HGB level above 7.0 Sustain Magnesium level greater than 2.0 Sustain Potassium level greater than 4.0 Follow up renal function and electrolytes Management in Telemetry Follow up Nephrology recommendations Follow up Primary Cardiology recommendations Will proceed to follow from a cardiac perspective Further recommendations per clinical progression All available diagnostic labs, EKG's, and images were personally reviewed Patient's status, findings, and plan of care was reviewed and discussed with supervising physician Dr. Tamayo, who is in agreement with current plan of care. Plan of care discussed with and agreed upon by patient / primary RN Prognosis: Guarded Thank you for allowing me to participate in the care of this patient. Further recommendations based on patients clinical course and progression, primary attending, and other consultants. Will continue to follow with primary attending. If you have any questions or concerns, please do not hesitate to contact me. A total of 75 minutes was spent reviewing the patient record, examining the patient, making a diagnostic and therapeutic plan, discussing this plan with medical personnel, following up on diagnostic studies and following the patient for clinical stability excluding any and all procedures. At least 50% of this time was spent in direct, [id number] contact. Dietary Evaluation Review Comments: Follow the renal standard diet regimen, monitor PO intake to meet 75% of his needs. Expected Outcomes/Goals: maintain lab value WNL for ESRD-HD Plan discussed with: Patient, Other (RN) Provider Statement: I have reviewed the case with my supervising physician. We have agreed with the plan of care. JIM ONEILL Apr 21, 2024 14:57
--- NOTE | 2024-04-21 21:21 | DVHPN2 ---
Progress Note Date Seen: Apr 21, 2024 Medical Necessity Reason Pt with a Central, PICC or Fol: No Subjective Patient reports: No new complaints Review of Systems: HEENT:Normal, CVS:Normal, RESPIRATORY:Normal, GI:Normal, :Normal, MSK:Normal, NEURO:Normal Objective vital signs Vital Sign Date Time Temp Pulse Resp B/P (MAP) Pulse Ox O2 Delivery O2 Flow Rate FiO2 04/21/24 20:00 21 97 Oxymizer 5 N/A 04/21/24 20:00 65 04/21/24 18:00 123/53 (76) 04/21/24 16:30 96.8 96.8 Total Intake and Output 04/20/24 04/20/24 04/21/24 15:00 23:00 07:00 Intake Total 50 ml 430 ml Balance 50 ml 430 ml medications Current Medications Medications Dose Ordered Sig/Colleen Route Start Time Stop Time Status Last Admin Dose Admin Sodium Chloride 10 ml Q8HR IV 04/16/24 06:00 04/21/24 14:04 10 ML Docusate Sodium 100 mg BIDPRN PRN PO 04/16/24 04:30 Morphine Sulfate 2 mg Q4HPRN PRN IV 04/16/24 04:30 Atorvastatin Calcium 40 mg HS PO 04/16/24 22:00 04/20/24 21:49 40 MG Sevelamer HCl 800 mg TIDWM PO 04/16/24 08:00 04/21/24 17:42 800 MG Ceftriaxone Sodium 50 ml @ 100 mls/hr DAILY@09 IV 04/16/24 06:00 04/21/24 09:02 100 MLS/HR Ondansetron HCl 4 mg Q4HP PRN IV 04/16/24 05:00 04/20/24 12:29 4 MG Acetaminophen 650 mg Q6HP PRN PO 04/16/24 05:00 Nitroglycerin 0.4 mg Q5MINP PRN SL 04/16/24 05:00 Morphine Sulfate 2 mg Q30M PRN IV 04/16/24 05:00 04/19/24 15:38 2 MG Amiodarone HCl 400 mg DAILY PO 04/17/24 10:00 04/21/24 14:04 400 MG Pantoprazole Sodium 40 mg DAILY@0600 PO 04/17/24 06:00 04/21/24 06:07 40 MG Metoprolol Succinate 25 mg DAILY PO 04/17/24 10:00 04/21/24 14:05 25 MG Phenylephrine HCl 250 ml @ 30 mls/hr Q8H20M IV 04/20/24 15:15 Digoxin 0.125 mg EOD PO 04/22/24 10:00 Heparin Sodium (Porcine) 5,000 units Q12HR SC 04/21/24 10:00 Examination: GENERAL:Normal, HEENT:Normal, NECK:Normal, LUNGS:Normal, CVS:Normal, ABDOMEN:Normal, MSK:Normal, SKIN:Normal, NEURO:Normal, :Normal laboratory and microbiology Laboratory Tests 04/21/24 04:40 Test 04/21/24 04:40 Range/Units Serum Glucose 99 74-106 mg/dL Microbiology Date/Time Source Procedure Growth Status 04/20/24 17:34 Nose MRSA Screen - Final Complete 04/16/24 10:02 Blood Blood Culture - Final NO GROWTH AFTER 5 DAYS OF INCUBATION. Complete Problem List/Assessment/Plan Problem List/Assessment/Plan ESRD on hemodialysis, out of the area Acute on chronic HFrEF, ejection fraction 20%. Hypertension Anemia of chronic disease Coronary artery disease Afib RVR leading to near syncope in setting of hypotension Plan/recommendation - HD 04/21 next HD 04/23 - Patient to resume chronic outpatient dialysis at his facility in [place] upon discharge Plan discussed with: Patient My Orders My Orders Orders - ADITYA DUNCAN MD Procedure Category Date Status Time Hemodialysis Orders ORDERS 04/21/24 Transmitted 09:39 Acute Hepatitis Panel LAB 04/21/24 In Process 09:39 Dietary Evaluation Review Comments: Follow the renal standard diet regimen, monitor PO intake to meet 75% of his needs. Expected Outcomes/Goals: maintain lab value WNL for ESRD-HD ADITYA DUNCAN MD Apr 21, 2024 21:21
[2024-04-21] MEDS: EPOETIN ALFA-EPBX 10,000 UNIT/1ML VIAL SC ONE (21:36)
[2024-04-22] VITALS (25 sets, daily range): BP systolic 116–153; BP diastolic 50–79; PULSE 64–79; RESP 13–26; TEMP 96.6–98.6; O2SAT 83–100
--- NOTE | 2024-04-22 04:58 | DVH ---
CHEST RADIOGRAPH Indication: PROCEDURE IN AM Technique: Single frontal view of the chest was obtained COMPARISON: XY CHEST PORTABLE on DOS: 04/15/24, XY CHEST PORTABLE on DOS: 04/07/24 FINDINGS: Lines and Tubes: Left chest wall pacemaker Lungs: Clear Pleura: Moderate right pleural effusion. No pneumothorax. Cardiomediastinal contours: Cardiomegaly. Bones: Unremarkable IMPRESSION: Small to moderate right pleural effusion.
[2024-04-22 05:02] LABS: Basophils # (auto) 0.1 10 ^3/uL (0-0.2); Eosinophils # (auto) 0.2 10 ^3/uL (0-0.8); Hematocrit 29.3 % (41.0-53.0); Hemoglobin 9.6 g/dL (13.5-17.5); Lymphocytes # (auto) 0.3 10 ^3/uL (0.4-5.4); Lymphocytes % (auto) 8.3 % (10.0-50.0); Mean Corpuscular Hemoglobin 31.8 pg (28.0-32.0); Mean Corpuscular Hgb Conc. 32.8 g/dL (32.0-36.0); Mean Corpuscular Volume 96.8 fL (80.0-100.0); Monocytes # (auto) 0.4 10 ^3/uL (0-1.3); Monocytes % (auto) 12.2 % (0.0-12.0); Neutrophils # (auto) 2.6 10 ^3/uL (1.6-8.6); Neutrophils % (auto) 71.5 % (37.0-80.0); Nucleated Red Blood Cells % 0.1 %; Platelet Count (auto) 133 10^3/uL (140-450); Red Blood Cells 3.03 10^6/uL (4.5-5.90); Red Cell Distribution Width 18.4 % (11.8-14.3); White Blood Cell 3.7 10^3/uL (4.4-10.8)
[2024-04-22 05:19] LABS: INR 1.25 (0.9-1.15); Partial Thromboplastin Time 32.5 SEC (24.5-34.5)
[2024-04-22 05:25] LABS: Albumin 3.6 g/dL (3.2-4.8); Alkaline Phosphatase 96 U/L (46-116); Anion Gap 5 (5-15); BUN/Creatinine Ratio 6.1 (10.0-20.0); Calcium 9.9 mg/dL (8.7-10.4); Carbon Dioxide 31 mmol/L (20-31); Chloride 98 mmol/L (98-107); Potassium 4.4 mmol/L (3.5-5.1)
[2024-04-22 05:26] LABS: Alanine Aminotransferase < 9 U/L (7-40); Aspartate Aminotransferase 10 U/L (13-40); Bilirubin, Total 0.4 mg/dL (0.2-1.0); Blood Urea Nitrogen 35 mg/dL (9-23); Glucose 128 mg/dL (74-106); Sodium 134 mmol/L (136-145); Total Protein 6.1 g/dL (5.7-8.2)
[2024-04-22] MEDS: SODIUM CHLORIDE 0.9% 1,000 ML IV SCH (06:58)
--- NOTE | 2024-04-22 09:33 | DVHPN2 ---
Subjective Patient denies any symptoms today. Reviewed: Care Plan, H&P, Labs, Medications Changes from previous H/P or p: No Changes General: Per HPI Objective Vitals Vital Signs Date Time Temp Pulse Resp B/P (MAP) Pulse Ox O2 Delivery O2 Flow Rate FiO2 04/22/24 08:00 18 97 Oxymizer 3 N/A 04/22/24 07:36 149/69 04/22/24 06:00 67 04/22/24 00:00 98.6 98.6 Intake/Output Intake and Output 04/22/24 07:00 Intake Total 170 ml Output Total 50 ml Balance 120 ml Intake Oral 120 ml IV Total 50 ml Output Urine Total 50 ml # Bowel Movements 2 General Appearance: Alert, Oriented X3, Cooperative, mild distress HEENT: Atraumatic, PERRLA Lungs: Clear to auscultation, Other (Oxymizer decreased to 2 liters/minute. Continues to have saturation of 98%) Cardiovascular: Normal S1, Normal S2, Other (Multifocal atrial tachycardia with heart rate about 125 beats per minute) Abdomen: Normal bowel sounds, Soft, No tenderness Genitourinary: No Apparent Abnormalities Musculoskeletal: Normal sensory function, Normal motor function Neuro: Normal gait, Normal speech Skin: Dry, Intact Psych/Mental Status: Mental status NL, Mood NL Medications Current Medications Medications Dose Ordered Sig/Colleen Route Start Time Stop Time Status Last Admin Dose Admin Sodium Chloride 10 ml Q8HR IV 04/16/24 06:00 04/22/24 05:32 10 ML Docusate Sodium 100 mg BIDPRN PRN PO 04/16/24 04:30 Morphine Sulfate 2 mg Q4HPRN PRN IV 04/16/24 04:30 Atorvastatin Calcium 40 mg HS PO 04/16/24 22:00 04/21/24 21:36 40 MG Sevelamer HCl 800 mg TIDWM PO 04/16/24 08:00 04/21/24 17:42 800 MG Ceftriaxone Sodium 50 ml @ 100 mls/hr DAILY@09 IV 04/16/24 06:00 04/22/24 08:55 100 MLS/HR Ondansetron HCl 4 mg Q4HP PRN IV 04/16/24 05:00 04/20/24 12:29 4 MG Acetaminophen 650 mg Q6HP PRN PO 04/16/24 05:00 Nitroglycerin 0.4 mg Q5MINP PRN SL 04/16/24 05:00 Morphine Sulfate 2 mg Q30M PRN IV 04/16/24 05:00 04/19/24 15:38 2 MG Amiodarone HCl 400 mg DAILY PO 04/17/24 10:00 04/21/24 14:04 400 MG Pantoprazole Sodium 40 mg DAILY@0600 PO 04/17/24 06:00 04/21/24 06:07 40 MG Metoprolol Succinate 25 mg DAILY PO 04/17/24 10:00 04/21/24 14:05 25 MG Phenylephrine HCl 250 ml @ 30 mls/hr Q8H20M IV 04/20/24 15:15 Digoxin 0.125 mg EOD PO 04/22/24 10:00 Heparin Sodium (Porcine) 5,000 units Q12HR SC 04/21/24 10:00 Sodium Chloride 1,000 ml @ 50 mls/hr Q20H IV 04/22/24 07:00 04/22/24 06:58 50 MLS/HR Laboratory Results Laboratory Tests 04/22/24 04:34 Chemistry Test 04/22/24 04:34 Albumin 3.6 g/dL (3.2-4.8) Calcium Level 9.9 mg/dL (8.7-10.4) Total Protein 6.1 g/dL (5.7-8.2) Coagulation Test 04/22/24 04:34 Prothrombin Time 13.0 sec (9.3-11.8) H Prothrombin Time INR 1.25 (0.9-1.15) H Activated Partial Thromboplast Time 32.5 SEC (24.5-34.5) LFT Test 04/22/24 04:34 Alanine Aminotransferase (ALT) < 9 U/L (7-40) Alkaline Phosphatase 96 U/L (46-116) Aspartate Amino Transferase (AST) 10 U/L (13-40) L Total Bilirubin 0.4 mg/dL (0.2-1.0) Urinalysis Test 04/17/24 07:52 Urine Color Light-yellow (Yellow) Urine Clarity Clear (Clear) Urine pH 6.0 (5.0-9.0) Urine Specific [place] 1.009 (1.001-1.035) Urine Protein 1+ (Negative) H Urine Ketones Negative (Negative) Urine Blood 3+ /uL (Negative) H Urine Nitrite Negative (Negative) Urine Bilirubin Negative (Negative) Urine Urobilinogen Normal mg/dL (Negative) Urine Leukocyte Esterase 1+ /uL (Negative) Urine RBC 102 /hpf (0 - 3) Urine WBC 17 /hpf (0 - 3) Urine Squamous Epithelial Cells Few /hpf (<5) Urine Bacteria None seen /hpf (None Seen) Urine Glucose Normal mg/dL (Normal) Microbiology Microbiology Date/Time Source Procedure Growth Status 04/20/24 17:34 Nose MRSA Screen - Final Complete 04/16/24 10:02 Blood Blood Culture - Final NO GROWTH AFTER 5 DAYS OF INCUBATION. Complete Labs and/or images reviewed: Labs reviewed by me, Image(s) reviewed by me Assessment/Plan Assessment/Plan Impression: -hypotension secondary to atrial fibrillation and heart failure medication -acute on chronic systolic heart failure with ejection fraction 20% -pulmonary arterial hypertension with noted elevated RSVP -coronary artery disease with previous CABG -fever ESRD with HD -anemia of chronic disease -hyperkalemia -hypervolemic hyponatremia Plan: Events: No events overnight. Pulmonary status has improved. No neurological symptoms as appreciated two days ago. Plans for AICD placement/upgrade from pacemaker. Patient will be reassessed for possible transfer to telemetry status after placement of device. -continue amiodarone. Hold Toprol and Entresto -given cardiology recommendations: Hold Eliquis and Plavix given patient was going for ICD upgrade tomorrow. -nephrology consultation : Plans for HD today -hold antihypertensives and heart failure medications at this time -continue empiric antibiotic therapy -patient had venogram of the left arm, uncertain why. Images viewed. Radiology interpretation pending. -repeat labs in a.m. Critical care time spent with patient discussing and formulating plan of care: 40 minutes. This does not include time spent performing procedures. This medical document was created using an electronic medical record system with [employer] dictation system. Although this document has been carefully reviewed, there may still be some phonetic and typographical errors. These areas are purely typographical due to imperfections of the software programs, and do not reflect any compromise in the patient's medical care. Plan discussed with: Patient, Other (RN) My Orders Orders - MONIQUE MACDONALD NP Procedure Category Date Status Time Transfer Orders XFER 04/21/24 Transmitted 15:34 Date of Service: Apr 22, 2024 Billing Provider: MONIQUE MACDONALD NP Common Visit Codes: 25221-[id number] CARE 30-74 MIN MONIQUE MACDONALD NP Apr 22, 2024 09:33
[2024-04-22] MEDS: DIGOXIN 0.125 MG TAB PO SCH (10:00)
--- NOTE | 2024-04-22 10:38 | DVHPN2 ---
Consult Progress Note Date Seen: Apr 22, 2024 Subjective Review of Systems: CVS:Normal, RESPIRATORY:Normal, NEURO:Normal Objective vital signs Vital Sign Date Time Temp Pulse Resp B/P (MAP) Pulse Ox O2 Delivery O2 Flow Rate FiO2 04/22/24 08:00 66 04/22/24 08:00 13 99 Oxymizer 4 N/A 04/22/24 07:36 149/69 04/22/24 00:00 98.6 98.6 Total Intake and Output 04/21/24 04/21/24 04/22/24 15:00 23:00 07:00 Intake Total 50 ml 120 ml Output Total 50 ml Balance 50 ml 70 ml medications Current Medications Medications Dose Ordered Sig/Colleen Route Start Time Stop Time Status Last Admin Dose Admin Sodium Chloride 10 ml Q8HR IV 04/16/24 06:00 04/22/24 05:32 10 ML Docusate Sodium 100 mg BIDPRN PRN PO 04/16/24 04:30 Morphine Sulfate 2 mg Q4HPRN PRN IV 04/16/24 04:30 Atorvastatin Calcium 40 mg HS PO 04/16/24 22:00 04/21/24 21:36 40 MG Sevelamer HCl 800 mg TIDWM PO 04/16/24 08:00 04/21/24 17:42 800 MG Ceftriaxone Sodium 50 ml @ 100 mls/hr DAILY@09 IV 04/16/24 06:00 04/22/24 08:55 100 MLS/HR Ondansetron HCl 4 mg Q4HP PRN IV 04/16/24 05:00 04/20/24 12:29 4 MG Acetaminophen 650 mg Q6HP PRN PO 04/16/24 05:00 Nitroglycerin 0.4 mg Q5MINP PRN SL 04/16/24 05:00 Morphine Sulfate 2 mg Q30M PRN IV 04/16/24 05:00 04/19/24 15:38 2 MG Amiodarone HCl 400 mg DAILY PO 04/17/24 10:00 04/21/24 14:04 400 MG Pantoprazole Sodium 40 mg DAILY@0600 PO 04/17/24 06:00 04/21/24 06:07 40 MG Metoprolol Succinate 25 mg DAILY PO 04/17/24 10:00 04/21/24 14:05 25 MG Phenylephrine HCl 250 ml @ 30 mls/hr Q8H20M IV 04/20/24 15:15 Digoxin 0.125 mg EOD PO 04/22/24 10:00 Heparin Sodium (Porcine) 5,000 units Q12HR SC 04/21/24 10:00 Sodium Chloride 1,000 ml @ 50 mls/hr Q20H IV 04/22/24 07:00 04/22/24 06:58 50 MLS/HR Examination: GENERAL:Abnormal (Chronically ill), LUNGS:Abnormal (Diminished R>L), CVS:Normal, NEURO:Normal laboratory and microbiology Laboratory Tests 04/22/24 04:34 Test 04/22/24 04:34 Range/Units Serum Glucose 128 H 74-106 mg/dL Problem List/Assessment/Plan Problem List/Assessment/Plan Acute on chronic decompensated HFrEF, NYHA Class IV Dilated/ischemic cardiomyopathy with LVEF of 20% Coronary artery disease status post PCIs x3 RASHEEDA, on Plavix Paroxysmal atrial fibrillation, on low-dose Eliquis/amiodarone Presence of permanent pacemaker ([employer], 2015) Pulmonary hypertension, severe Status post cardiac ablations x 3 Status post right subclavian graft ESRD on HD Anemia in chronic disease Thrombocytopenia Plan/Recommendation (Dr. Pierre) Echocardiogram revealed an EF of 20% with global akinesia. RVSP 75 mmHg. Continue low-dose beta serena with parameters. Hold SGLT2i and mineralocorticoid given ESRD. Continue antiarrhythmic, amiodarone, and digoxin therapy EOD. Continue preload and afterload reduction along with HD treatments per Nephrology. Scheduled for ICD upgrade with addition of LV lead for primary prevention against SCD and cardiac resynchronization therapy with Dr. Tamayo on 04/22/2024. Reestablish low-dose Eliquis and Plavix therapy post-procedure. There is no further cardiac work-up indicated at this time. Kindly call if in need to re-consult. Thank you for allowing us to care for this patient. Critical care time: 30 min. This medical document was created using an electronic medical record system with voice recognition software and computerized dictation system. Although this document has been carefully reviewed, there might still be some phonetic and typographical errors. Occasional wrong-word or ``sound-alike substitutions may have occurred due to the inherent limitations of voice recognition software. These areas are purely typographical due to imperfections of the software programs and do not reflect any compromise in the patient's medical care. Please read the chart carefully and recognize, using context, where these substitutions have occurred. Plan discussed with: Patient, Other Dietary Evaluation Review Comments: Follow the renal standard diet regimen, monitor PO intake to meet 75% of his needs. Expected Outcomes/Goals: maintain lab value WNL for ESRD-HD Date of Service: Apr 22, 2024 Billing Provider: RAHUL PIERRE MD Cardiology Common Codes: [id number] CARE 30-74 MIN ANAYELI CALVILLO SPEECH PROFESSOR Apr 22, 2024 10:38
--- NOTE | 2024-04-22 17:00 | DVHPN2 ---
Progress Note - Dictate Date Seen: Apr 22, 2024 Medical Necessity Reason Pt with a Central, PICC or Fol: No Subjective Pt seen in SDU. ICD change was postponed due to timing issues in the cardiac cath lab manager this morning. Rescheduled to Saturday. Chart reviewed. vital signs Vital Sign Date Time Temp Pulse Resp B/P (MAP) Pulse Ox O2 Delivery O2 Flow Rate FiO2 04/22/24 15:00 76 21 152/71 (98) 98 04/22/24 12:00 Oxymizer 4 N/A 04/22/24 12:00 97.7 97.7 Total Intake and Output 04/21/24 04/21/24 04/22/24 15:00 23:00 07:00 Intake Total 50 ml 120 ml Output Total 50 ml Balance 50 ml 70 ml medications Current Medications Medications Dose Ordered Sig/Colleen Route Start Time Stop Time Status Last Admin Dose Admin Sodium Chloride 10 ml Q8HR IV 04/16/24 06:00 04/22/24 05:32 10 ML Docusate Sodium 100 mg BIDPRN PRN PO 04/16/24 04:30 Morphine Sulfate 2 mg Q4HPRN PRN IV 04/16/24 04:30 Atorvastatin Calcium 40 mg HS PO 04/16/24 22:00 04/21/24 21:36 40 MG Sevelamer HCl 800 mg TIDWM PO 04/16/24 08:00 04/21/24 17:42 800 MG Ceftriaxone Sodium 50 ml @ 100 mls/hr DAILY@09 IV 04/16/24 06:00 04/22/24 09:00 100 MLS/HR Ondansetron HCl 4 mg Q4HP PRN IV 04/16/24 05:00 04/20/24 12:29 4 MG Acetaminophen 650 mg Q6HP PRN PO 04/16/24 05:00 Nitroglycerin 0.4 mg Q5MINP PRN SL 04/16/24 05:00 Morphine Sulfate 2 mg Q30M PRN IV 04/16/24 05:00 04/19/24 15:38 2 MG Amiodarone HCl 400 mg DAILY PO 04/17/24 10:00 04/21/24 14:04 400 MG Pantoprazole Sodium 40 mg DAILY@0600 PO 04/17/24 06:00 04/21/24 06:07 40 MG Metoprolol Succinate 25 mg DAILY PO 04/17/24 10:00 04/21/24 14:05 25 MG Phenylephrine HCl 250 ml @ 30 mls/hr Q8H20M IV 04/20/24 15:15 Digoxin 0.125 mg EOD PO 04/22/24 10:00 Heparin Sodium (Porcine) 5,000 units Q12HR SC 04/21/24 10:00 Sodium Chloride 1,000 ml @ 50 mls/hr Q20H IV 04/22/24 07:00 04/22/24 06:58 50 MLS/HR laboratory and microbiology Laboratory Tests 04/22/24 04:34 Test 04/22/24 04:34 Range/Units Serum Glucose 128 H 74-106 mg/dL Assessment/Plan This is a 64-year old male who initially presented (04/15/2024) with generalized weakness. Records indicate the patient had reported associated shortness of breath and dizziness which he was found to be hypotensive and subsequently initiated briefly on vasopressor therapy for hemodynamic support (later improved). Records further indicate patient was reportedly found in atrial fibrillation with rapid ventricular response which he was subsequently administered Amiodarone bolus resulting in successful chemical cardioversion. It is of note patient has an underlying history of coronary artery disease with reported (as per patient) last cardiac catheterization approximately 3-4 years ago in [place], [place] resulting in coronary revascularization/stenting which he remains on Plavix 75mg daily. As such, he carries an underlying diagnosis of dilated/ischemic cardiomyopathy with last known LVEF of 20% as per Echocardiogram (04/08/2024) which he remains on GDMT for systolic heart failure as managed by his primary Bakery Team Member Dr. Manuel in [place]. It is of note he is status post Biotronic dual-chamber permanent pacemaker implantation (2014) which records indicate patient furthermore has a previous history of tachyarrhythmias including paroxysmal atrial fibrillation and non-sustained ventricular tachycardia. EKG at present reveals a QRS > 120ms. HS troponin trend is found unremarkable (29 - 31 - 46). Electrolytes (potassium/magnesium) are found to be within normal range. As the patient has an underlying history of dilated/ischemic cardiomyopathy and tachyarrhythmias (NSVT) with last known LVEF of 20% despite GDMT for systolic heart failure and previous coronary revascularization, Electrophysiology services have now been involved to evaluate the patient for potential AICD upgrade. Past medical history includes coronary artery disease status post previous PCI (multiple reported), systolic heart failure, dilated/ischemic cardiomyopathy, ESRD on hemodialysis status post RUE AVF, hyperlipidemia, pulmonary hypertension, paroxysmal atrial fibrillation on chronic anticoagulation, non- sustained ventricular tachycardia, thrombocytopenia, status post dual chamber PPM implantation with Biotronic (2014), cardiac ablations (unknown type), status post right subclavian graft Echocardiogram: (04/08/2024) Severely dilated left ventricle. Severely reduced left ventricular systolic function estimated ejection fraction 20%. There is global wall akinesia. There is a grade 1 diastolic dysfunction. Severely dilated right ventricle. Severely reduced right ventricular systolic function. Severely elevated right ventricular systolic pressure 75 mm of mercury. Severely dilated right and left atra. There is [id number] mitral valve regurgitation. There is [id number] tricuspid regurgitation. The aortic valve is mildly thickened and sclerotic, there is a trace of aortic valve regurgitation The pulmonary is grossly normal. No pericardial effusion. Assessment: Acute on chronic systolic heart failure (decompensated) Dilated/Ischemic cardiomyopathy, LVEF of 20% per Echocardiogram (04/08/2024) Coronary artery disease, status post previous coronary revascularization (PCI) Paroxysmal atrial fibrillation, on chronic anticoagulation Presence of Biotronic dual-chamber PPM (2014) QRS duration > 120 milliseconds Pulmonary hypertension ESRD on hemodialysis Pancytopenia Electrophysiology Suggestions for Management: As EKG at present reveals a QRS > 120ms in a patient with an underlying history of dilated/ischemic cardiomyopathy, and tachyarrhythmias (NSVT) with last known LVEF of 20% per Echocardiogram (04/08/2024) despite GDMT for systolic heart failure and previous coronary revascularization, patient benefits from undergoing ICD upgrade with addition of LV lead for primary prevention against SCD and cardiac resynchronization therapy. Benefits, risks, and alternatives were discussed at length with the patient which he is agreeable to the plan of care. As such, will plan for procedure this upcoming Saturday04/24/24, with Dr. Tamayo. Patient has been consented and will be NPO status at midnight (04/24/2024). Hold current Plavix and Eliquis. May proceed with Heparin injections during the interim (proceed with PLT surveillance) with plan to discontinue Saturday evening. Will proceed to follow from an EP perspective. Remains of cardiac management as per primary Cardiology Team. Proceed with close observation for overt signs of fluid overload Proceed with strict intakes, outputs, and daily weights Proceed with close rate and rhythm surveillance Proceed with close hemodynamic surveillance Proceed with optimized blood pressure control Transfuse to sustain HGB level above 7.0 Sustain Magnesium level greater than 2.0 Sustain Potassium level greater than 4.0 Follow up renal function and electrolytes Management in SDU Follow up Nephrology recommendations Follow up Primary Cardiology recommendations Will proceed to follow from a cardiac perspective Further recommendations per clinical progression All available diagnostic labs, EKG's, and images were personally reviewed Patient's status, findings, and plan of care was reviewed and discussed with supervising physician Dr. Tamayo, who is in agreement with current plan of care. Plan of care discussed with and agreed upon by patient / primary RN Prognosis: Guarded Thank you for allowing me to participate in the care of this patient. Further recommendations based on patients clinical course and progression, primary attending, and other consultants. Will continue to follow with primary attending. If you have any questions or concerns, please do not hesitate to contact me. A total of 75 minutes was spent reviewing the patient record, examining the patient, making a diagnostic and therapeutic plan, discussing this plan with medical personnel, following up on diagnostic studies and following the patient for clinical stability excluding any and all procedures. At least 50% of this time was spent in direct, [id number] contact. Dietary Evaluation Review Comments: Follow the renal standard diet regimen, monitor PO intake to meet 75% of his needs. Expected Outcomes/Goals: maintain lab value WNL for ESRD-HD Plan discussed with: Patient, Other (RN) Provider Statement: I have reviewed the case with my supervising physician. We have agreed with the plan of care. JIM ONEILL Apr 22, 2024 17:00
--- NOTE | 2024-04-22 18:37 | DVHPN2 ---
Progress Note Date Seen: Apr 22, 2024 Medical Necessity Reason Pt with a Central, PICC or Fol: No Subjective Patient reports: No new complaints, Feels better Review of Systems: Deferred Objective vital signs Vital Sign Date Time Temp Pulse Resp B/P (MAP) Pulse Ox O2 Delivery O2 Flow Rate FiO2 04/22/24 17:15 127/73 04/22/24 17:00 76 25 95 04/22/24 16:46 97.5 97.5 04/22/24 16:00 Oxymizer 4 N/A Total Intake and Output 04/21/24 04/21/24 04/22/24 15:00 23:00 07:00 Intake Total 50 ml 120 ml Output Total 50 ml Balance 50 ml 70 ml medications Current Medications Medications Dose Ordered Sig/Colleen Route Start Time Stop Time Status Last Admin Dose Admin Sodium Chloride 10 ml Q8HR IV 04/16/24 06:00 04/22/24 05:32 10 ML Docusate Sodium 100 mg BIDPRN PRN PO 04/16/24 04:30 Morphine Sulfate 2 mg Q4HPRN PRN IV 04/16/24 04:30 Atorvastatin Calcium 40 mg HS PO 04/16/24 22:00 04/21/24 21:36 40 MG Sevelamer HCl 800 mg TIDWM PO 04/16/24 08:00 04/21/24 17:42 800 MG Ceftriaxone Sodium 50 ml @ 100 mls/hr DAILY@09 IV 04/16/24 06:00 04/22/24 09:00 100 MLS/HR Ondansetron HCl 4 mg Q4HP PRN IV 04/16/24 05:00 04/20/24 12:29 4 MG Acetaminophen 650 mg Q6HP PRN PO 04/16/24 05:00 Nitroglycerin 0.4 mg Q5MINP PRN SL 04/16/24 05:00 Morphine Sulfate 2 mg Q30M PRN IV 04/16/24 05:00 04/19/24 15:38 2 MG Amiodarone HCl 400 mg DAILY PO 04/17/24 10:00 04/21/24 14:04 400 MG Pantoprazole Sodium 40 mg DAILY@0600 PO 04/17/24 06:00 04/21/24 06:07 40 MG Metoprolol Succinate 25 mg DAILY PO 04/17/24 10:00 04/21/24 14:05 25 MG Phenylephrine HCl 250 ml @ 30 mls/hr Q8H20M IV 04/20/24 15:15 Digoxin 0.125 mg EOD PO 04/22/24 10:00 Heparin Sodium (Porcine) 5,000 units Q12HR SC 04/21/24 10:00 Sodium Chloride 1,000 ml @ 50 mls/hr Q20H IV 04/22/24 07:00 04/22/24 06:58 50 MLS/HR Examination: GENERAL:Normal, HEENT:Normal, NECK:Normal, LUNGS:Abnormal, CVS:Normal, ABDOMEN:Normal, MSK:Abnormal, SKIN:Normal, NEURO:Normal, :Normal laboratory and microbiology Laboratory Tests 04/22/24 04:34 Test 04/22/24 04:34 Range/Units Serum Glucose 128 H 74-106 mg/dL Microbiology Date/Time Source Procedure Growth Status 04/20/24 17:34 Nose MRSA Screen - Final Complete 04/16/24 10:02 Blood Blood Culture - Final NO GROWTH AFTER 5 DAYS OF INCUBATION. Complete Problem List/Assessment/Plan Problem List/Assessment/Plan ESRD on hemodialysis, out of the area Acute on chronic HFrEF, ejection fraction 20%. Hypertension Anemia of chronic disease Coronary artery disease Afib RVR leading to near syncope in setting of hypotension Plan/recommendation - next HD 04/23 - Patient to resume chronic outpatient dialysis at his facility in [place] upon discharge Plan discussed with: Patient Dietary Evaluation Review Comments: Follow the renal standard diet regimen, monitor PO intake to meet 75% of his needs. Expected Outcomes/Goals: maintain lab value WNL for ESRD-HD ADITYA DUNCAN MD Apr 22, 2024 18:37
--- NOTE | 2024-04-22 20:07 | DVHINCON2 ---
Date of service: Apr 22, 2024 Referring Physician JI Katz Reason for Consultation Pleural effusion, right History of Present Illness 64-year-old man history of CHF, hypertension, CAD, end-stage renal disease on hemodialysis who presented with generalized weakness. He had a chest x-ray performed that demonstrated [id number] right pleural effusion. He was on Oxymizer at 4 liters/minute. Pulmonary consultation is called due to acute hypoxic respiratory failure and pleural effusion evaluation. Review of systems: 14 point review of systems is negative unless otherwise noted above. Past medical history: Hypertension, congestive heart failure, CAD, end-stage r enal disease Past surgical history: Dialysis access Medications: Reviewed Allergies: No known drug allergies. Family history: No family history of premature CAD. No family history of lung disease Social history: Nonsmoker. No alcohol or illicit drug use. Allergies: Coded Allergies: NO KNOWN ALLERGIES (Unverified , 04/07/24) Home Meds Reported Medications Apixaban Base (ELIQUIS) 2.5 Mg Tab, 2.5 MG PO BID for 60 Days, #60 04/09/24 Dapagliflozin Propanediol (Farxiga) 10 Mg Tab, 1 TAB PO DAILY for 30 Days, #30 04/09/24 Aripiprazole (Aripiprazole) 5 Mg Tab, 1 TAB PO DAILY for 30 Days, #30 04/09/24 Current Medications Current Medications Medications (Trade) Dose Ordered Sig/Colleen Route PRN Reason Start Time Stop Time Status Last Admin Digoxin (Lanoxin Tablet) 0.125 mg EOD PO 04/22/24 10:00 Sodium Chloride 1,000 ml @ 50 mls/hr Q20H IV 04/22/24 07:00 04/22/24 06:58 Vital Signs Vital Signs Date Time Temp Pulse Resp B/P (MAP) Pulse Ox O2 Delivery O2 Flow Rate FiO2 04/22/24 18:00 22 100 Oxymizer 4 N/A 04/22/24 18:00 76 04/22/24 18:00 131/77 (95) 04/22/24 16:46 97.5 97.5 Physical Exam Gen.: Patient lying in bed in no apparent distress. On supplemental oxygen. Head: Normocephalic, atraumatic Eyes: EOMI/PERRLA. Ears: Normal hearing. Normal anatomy. Neck/trachea: Trachea midline, supple. Nose: Normal external anatomy. Mouth: Moist mucous membranes. Chest: Decreased air entry bilaterally. No wheezing or rhonchi. Dullness to percussion in right lower lung field. Cardio vascular: Positive S1, positive S2. Regular rate and rhythm. Abdomen: Positive bowel sounds in all 4 quadrants. Soft, non-tender, non- distended. : Deferred. Rectal: Deferred Skin: Warm, dry. Extremities: 2+ radial pulses bilaterally. No lower extremity edema. Neuro: Awake, alert, oriented x3. No gross motor or sensory deficits. Cranial nerves II through XII intact. Gait not assessed. Labs/Diagnostic Data Labs Test 04/22/24 04:34 04/21/24 04:40 04/20/24 16:53 04/20/24 16:48 Range/Units White Blood Count 3.7 L 4.4-10.8 10^3/uL Red Blood Count 3.03 L 4.5-5.90 10^6/uL Hemoglobin 9.6 L 13.5-17.5 g/dL Hematocrit 29.3 L 41.0-53.0 % Mean Corpuscular Volume 96.8 80.0-100.0 fL Mean Corpuscular Hemoglobin 31.8 28.0-32.0 pg Mean Corpuscular Hemoglobin Concent 32.8 32.0-36.0 g/dL Red Cell Distribution Width 18.4 H 11.8-14.3 % Platelet Count 133 L 140-450 10^3/uL Mean Platelet Volume 7.7 6.9-10.8 fL Neutrophils (%) (Auto) 71.5 37.0-80.0 % Lymphocytes (%) (Auto) 8.3 L 10.0-50.0 % Monocytes (%) (Auto) 12.2 H 0.0-12.0 % Eosinophils (%) (Auto) 5.0 0.0-7.0 % Basophils (%) (Auto) 3.0 H 0.0-2.0 % Neutrophils # (Auto) 2.6 1.6-8.6 10 ^3/uL Lymphocytes # (Auto) 0.3 L 0.4-5.4 10 ^3/uL Monocytes # (Auto) 0.4 0-1.3 10 ^3/uL Eosinophils # (Auto) 0.2 0-0.8 10 ^3/uL Basophils # (Auto) 0.1 0-0.2 10 ^3/uL Nucleated Red Blood Cells 0.1 % Prothrombin Time 13.0 H 9.3-11.8 sec Prothrombin Time INR 1.25 H 0.9-1.15 Activated Partial Thromboplast Time 32.5 24.5-34.5 SEC Sodium Level 134 L 136-145 mmol/L Potassium Level 4.4 3.5-5.1 mmol/L Chloride Level 98 98-107 mmol/L Carbon Dioxide Level 31 20-31 mmol/L Anion Gap 5 5-15 Blood Urea Nitrogen 35 #H 9-23 mg/dL Creatinine 5.70 H 0.700-1.30 mg/dL Glomerular Filtration Rate Calc 10 >90 mL/min BUN/Creatinine Ratio 6.1 L 10.0-20.0 Serum Glucose 128 H 74-106 mg/dL Calcium Level 9.9 8.7-10.4 mg/dL Total Bilirubin 0.4 0.2-1.0 mg/dL Aspartate Amino Transferase (AST) 10 L 13-40 U/L Alanine Aminotransferase (ALT) < 9 7-40 U/L Alkaline Phosphatase 96 46-116 U/L Total Protein 6.1 5.7-8.2 g/dL Albumin 3.6 3.2-4.8 g/dL Phosphorus Level 5.3 H 2.4-5.1 mg/dL Magnesium Level 2.3 1.6-2.6 mg/dL Blood Gas Specimen Type Arterial Blood Gas Sample Site Left radial Blood Gas Patient Temperature 37.0 Arterial Blood Date Drawn [id number] Arterial Blood pH 7.302 L 7.350-7.450 Arterial Blood Partial Pressure CO2 53.0 H 35.0-48.0 mmHg Arterial Blood Partial Pressure O2 284.8 H 83.0-108.0 mmHg Arterial Blood HCO3 25.6 21.0-28.0 mmol/L Arterial Blood Oxygen Saturation 99.7 H 94.0-98.0 % Arterial Blood Base Excess -1.2 -2.0-3.0 mmol/L Arterial Blood Oxyhemoglobin 98.6 H 94.0-98.0 % Arterial Blood Carboxyhemoglobin 0.9 0.5-1.5 % Arterial Blood Methemoglobin 0.2 0.0-1.5 % Chilo Test Yes Blood Gas Total Hemoglobin 10.10 L 13.5-17.5 g/dL Blood Gas Liter Flow 15.00 Blood Gas Modality Mask - nrb FiO2 % 100.0 Erythrocyte Sedimentation Rate 23 H 0-20 mm/hr C-Reactive Protein High Sensitivity 1.46 H <1.0 mg/dL Test 04/18/24 06:29 04/17/24 07:52 04/16/24 06:23 04/16/24 04:55 Range/Units Differential Total Cells Counted 100.0 100 Neutrophils % (Manual) 66 37.0-80.0 Band Neutrophils % (Manual) 0 Lymphocytes % (Manual) 8 L 10.0-50.0 Monocytes % (Manual) 18 H 0-12 Eosinophils % (Manual) 8 H 0-7 Basophils % (Manual) 0 0.0-2.0 Metamyelocytes % (manual) 0 Myelocytes % (Manual) 0 Promyelocytes % (Manual) 0 Blast Cells % (Manual) 0 Reactive Lymphocytes 0 Platelet Estimate Decreased Urine Color Light-yellow Yellow Urine Clarity Clear Clear Urine pH 6.0 5.0-9.0 Urine Specific [place] 1.009 1.001-1.035 Urine Protein 1+ H Negative Urine Ketones Negative Negative Urine Blood 3+ H Negative /uL Urine Nitrite Negative Negative Urine Bilirubin Negative Negative Urine Urobilinogen Normal Negative mg/dL Urine Leukocyte Esterase 1+ Negative /uL Urine RBC 102 0 - 3 /hpf Urine WBC 17 0 - 3 /hpf Urine Squamous Epithelial Cells Few <5 /hpf Urine Bacteria None seen None Seen /hpf Urine Glucose Normal Normal mg/dL Influenza Type A Antigen Negative Negative Influenza Type B Antigen Negative Negative SARS-CoV-2 Antigen (Rapid) Negative NEGATIVE Lactic Acid Level 1.2 0.4-2.0 mmol/L Test 04/16/24 01:35 04/15/24 22:27 Range/Units Troponin I High Sensitivity 46 </=54 ng/L B-Type Natriuretic Peptide 2684.31 0-100 pg/mL Microbiology Date/Time Source Procedure Growth Status 04/20/24 17:34 Nose MRSA Screen - Final Complete 04/16/24 10:02 Blood Blood Culture - Final NO GROWTH AFTER 5 DAYS OF INCUBATION. Complete Assessment Impression: Acute hypoxic respiratory failure Pleural effusion Atelectasis End-stage renal disease on hemodialysis CHF Atrial fibrillation with RVR Anemia of chronic disease Plan: Chest x-ray imaging report reviewed. Left chest wall pacemaker. No acute opacities. Moderate right pleural effusion. No pneumothorax. We will perform a limited chest ultrasound in the morning to evaluate her pleural effusion is amenable for thoracentesis. Supplemental oxygen on 4 liters/minute via Oxymizer Keep O2 saturation above 92%. Continue antibiotics Monitor renal function. Monitor electrolytes Supplement as necessary. Monitor ins and outs. Nephrology recommendations appreciated. Hemodialysis per Nephrology. On digoxin On metoprolol DVT prophylaxis-heparin subcutaneously Prophylaxis with Protonix Prognosis: Poor given multiple comorbidities. Rest of plan per hospitalist and other consultants. Thank you JI Katz for allowing me to participate in this patient's care. Further recommendations will depend on patient's clinical course. Please do not hesitate to contact me if you have any questions or concerns. This medical document was created using an electronic medical record system with [employer] dictation system. Although this document has been carefully reviewed, there may still be some phonetic and typographical errors. These areas are purely typographical due to imperfections of the software programs, and do not reflect any compromise in the patient's medical care. Plan discussed with: Patient, Other (MITCHEL Leigh, JI) DEVAUGHN LEONG MD Apr 22, 2024 20:07
[2024-04-23] VITALS (23 sets, daily range): BP systolic 90–151; BP diastolic 54–91; PULSE 71–85; RESP 11–23; TEMP 97.2–98.4; O2SAT 79–100
[2024-04-23] MEDS: MORPHINE SULFATE INJ 2 MG/ml SYRG IV PRN (02:08)
[2024-04-23] MEDS: FUROSEMIDE 40 MG/4 ML VIAL IV ONE (02:10)
[2024-04-23] MEDS: FUROSEMIDE 40 MG/4 ML VIAL ONE (02:21)
[2024-04-23 02:30] LABS: Basophils # (auto) 0.1 10 ^3/uL (0-0.2); Basophils % (auto) 2.1 % (0.0-2.0); Eosinophils # (auto) 0.3 10 ^3/uL (0-0.8); Eosinophils % (auto) 6.6 % (0.0-7.0); Hemoglobin 9.1 g/dL (13.5-17.5); Lymphocytes # (auto) 0.3 10 ^3/uL (0.4-5.4); Lymphocytes % (auto) 7.7 % (10.0-50.0); Mean Corpuscular Hgb Conc. 31.5 g/dL (32.0-36.0); Mean Corpuscular Volume 98.5 fL (80.0-100.0); Monocytes # (auto) 0.4 10 ^3/uL (0-1.3); Monocytes % (auto) 9.9 % (0.0-12.0); Neutrophils # (auto) 2.8 10 ^3/uL (1.6-8.6); Neutrophils % (auto) 73.7 % (37.0-80.0); Nucleated Red Blood Cells % 0.2 %; Platelet Count (auto) 122 10^3/uL (140-450); Red Blood Cells 2.94 10^6/uL (4.5-5.90); Red Cell Distribution Width 18.4 % (11.8-14.3); White Blood Cell 3.9 10^3/uL (4.4-10.8)
[2024-04-23 02:41] LABS: Potassium 4.1 mmol/L (3.5-5.1)
[2024-04-23 02:42] LABS: Anion Gap 8 (5-15); Calcium 10.1 mg/dL (8.7-10.4); Carbon Dioxide 30 mmol/L (20-31)
[2024-04-23 02:47] LABS: Blood Urea Nitrogen 37 mg/dL (9-23); Chloride 97 mmol/L (98-107); Glucose 120 mg/dL (74-106); Sodium 135 mmol/L (136-145)
--- NOTE | 2024-04-23 05:30 | DVH ---
CHEST RADIOGRAPH Indication: PLEURAL EFFUSION Technique: Single frontal view of the chest was obtained COMPARISON: XY CHEST PORTABLE on DOS: 04/22/24, XY CHEST PORTABLE on DOS: 04/15/24, XY CHEST PORTABLE on DOS: 04/07/24, XY CHEST PORTABLE on DOS: 04/22/24 FINDINGS: Lines and Tubes: Left chest wall pacemaker Lungs: Multifocal airspace disease. Pleura: Moderate right pleural effusion. No pneumothorax. Cardiomediastinal contours: Cardiomegaly. Bones: Unremarkable IMPRESSION: Moderate right pleural effusion.
--- NOTE | 2024-04-23 06:45 | DVHPN2 ---
Subjective Patient denies any symptoms today. Reviewed: Care Plan, H&P, Labs, Medications Changes from previous H/P or p: No Changes General: Per HPI Objective Vitals Vital Signs Date Time Temp Pulse Resp B/P (MAP) Pulse Ox O2 Delivery O2 Flow Rate FiO2 04/23/24 04:00 97.4 82 15 151/91 (111) 99 97.4 04/23/24 04:00 Oxymizer 3 N/A Intake/Output Intake and Output 04/23/24 07:00 Intake Total 319 ml Output Total 120 ml Balance 199 ml Intake Oral 140 ml Tube Feeding 179 ml Output Urine Total 120 ml # Bowel Movements 1 General Appearance: Alert, Oriented X3, Cooperative, mild distress HEENT: Atraumatic, PERRLA Lungs: Clear to auscultation, Other (Oxymizer decreased to 2 liters/minute. Continues to have saturation of 98%) Cardiovascular: Normal S1, Normal S2, Other (Multifocal atrial tachycardia with heart rate about 125 beats per minute) Abdomen: Normal bowel sounds, Soft, No tenderness Genitourinary: No Apparent Abnormalities Musculoskeletal: Normal sensory function, Normal motor function Neuro: Normal gait, Normal speech Skin: Dry, Intact Psych/Mental Status: Mental status NL, Mood NL Medications Current Medications Medications Dose Ordered Sig/Colleen Route Start Time Stop Time Status Last Admin Dose Admin Sodium Chloride 10 ml Q8HR IV 04/16/24 06:00 04/23/24 05:58 10 ML Docusate Sodium 100 mg BIDPRN PRN PO 04/16/24 04:30 Morphine Sulfate 2 mg Q4HPRN PRN IV 04/16/24 04:30 04/23/24 02:08 2 MG Atorvastatin Calcium 40 mg HS PO 04/16/24 22:00 04/22/24 22:02 40 MG Sevelamer HCl 800 mg TIDWM PO 04/16/24 08:00 04/22/24 18:00 800 MG Ceftriaxone Sodium 50 ml @ 100 mls/hr DAILY@09 IV 04/16/24 06:00 04/22/24 09:00 100 MLS/HR Ondansetron HCl 4 mg Q4HP PRN IV 04/16/24 05:00 04/20/24 12:29 4 MG Acetaminophen 650 mg Q6HP PRN PO 04/16/24 05:00 Nitroglycerin 0.4 mg Q5MINP PRN SL 04/16/24 05:00 Morphine Sulfate 2 mg Q30M PRN IV 04/16/24 05:00 04/19/24 15:38 2 MG Amiodarone HCl 400 mg DAILY PO 04/17/24 10:00 04/21/24 14:04 400 MG Pantoprazole Sodium 40 mg DAILY@0600 PO 04/17/24 06:00 04/23/24 05:58 40 MG Metoprolol Succinate 25 mg DAILY PO 04/17/24 10:00 04/21/24 14:05 25 MG Phenylephrine HCl 250 ml @ 30 mls/hr Q8H20M IV 04/20/24 15:15 Digoxin 0.125 mg EOD PO 04/22/24 10:00 Heparin Sodium (Porcine) 5,000 units Q12HR SC 04/21/24 10:00 04/22/24 22:02 5,000 UNITS Sodium Chloride 1,000 ml @ 50 mls/hr Q20H IV 04/22/24 07:00 04/22/24 06:58 50 MLS/HR Laboratory Results Laboratory Tests 04/23/24 02:08 Chemistry Test 04/23/24 02:08 Calcium Level 10.1 mg/dL (8.7-10.4) Cardiac Markers Test 04/23/24 02:08 B-Type Natriuretic Peptide > 5000.00 pg/mL (0-100) Urinalysis Test 04/17/24 07:52 Urine Color Light-yellow (Yellow) Urine Clarity Clear (Clear) Urine pH 6.0 (5.0-9.0) Urine Specific [place] 1.009 (1.001-1.035) Urine Protein 1+ (Negative) H Urine Ketones Negative (Negative) Urine Blood 3+ /uL (Negative) H Urine Nitrite Negative (Negative) Urine Bilirubin Negative (Negative) Urine Urobilinogen Normal mg/dL (Negative) Urine Leukocyte Esterase 1+ /uL (Negative) Urine RBC 102 /hpf (0 - 3) Urine WBC 17 /hpf (0 - 3) Urine Squamous Epithelial Cells Few /hpf (<5) Urine Bacteria None seen /hpf (None Seen) Urine Glucose Normal mg/dL (Normal) Microbiology Microbiology Date/Time Source Procedure Growth Status 04/20/24 17:34 Nose MRSA Screen - Final Complete 04/16/24 10:02 Blood Blood Culture - Final NO GROWTH AFTER 5 DAYS OF INCUBATION. Complete Labs and/or images reviewed: Labs reviewed by me, Image(s) reviewed by me Assessment/Plan Assessment/Plan Impression: -hypotension secondary to atrial fibrillation and heart failure medication -acute on chronic systolic heart failure with ejection fraction 20% -pulmonary arterial hypertension with noted elevated RSVP -coronary artery disease with previous CABG -fever ESRD with HD -anemia of chronic disease -hyperkalemia -hypervolemic hyponatremia -Acute hypoxic respiratory failure secondary to pulmonary vascular congestion -right pleural effusion Plan: Events: Patient did not receive ICD yesterday, secondary to scheduling conflict. Now plans for ICD tomorrow. Patient has large right pleural effusion. Patient to have thoracentesis by pulmonologists today. Plans for HD today. -continue amiodarone. Hold Toprol and Entresto -given cardiology recommendations: Hold Eliquis and Plavix given patient was going for ICD upgrade tomorrow. -nephrology consultation : Plans for HD today -hold antihypertensives and heart failure medications at this time -continue empiric antibiotic therapy -repeat labs in a.m. Critical care time spent with patient discussing and formulating plan of care: 40 minutes. This does not include time spent performing procedures. This medical document was created using an electronic medical record system with [employer] dictation system. Although this document has been carefully reviewed, there may still be some phonetic and typographical errors. These areas are purely typographical due to imperfections of the software programs, and do not reflect any compromise in the patient's medical care. Plan discussed with: Patient, Other (RN) My Orders Orders - MONIQUE MACDONALD [employer] Procedure Category Date Status Time *Consult CONS 04/23/24 Transmitted / 06:27 Basic Metabolic Panel LAB 04/24/24 Verified 05:00 Basic Metabolic Panel LAB 04/25/24 Verified 05:00 Basic Metabolic Panel LAB 04/26/24 Verified 05:00 Complete Blood Count LAB 04/24/24 Verified 05:00 Complete Blood Count LAB 04/25/24 Verified 05:00 Complete Blood Count LAB 04/26/24 Verified 05:00 Chest Portable XY 04/24/24 Verified 05:00 Chest Portable XY 04/25/24 Verified 05:00 Chest Portable XY 04/26/24 Verified 05:00 Date of Service: Apr 23, 2024 Billing Provider: MONIQUE MACDONALD NP Common Visit Codes: 01350-[id number] CARE 30-74 MIN MONIQUE MACDONALD NP Apr 23, 2024 06:44
[2024-04-23 11:27] LABS: Hepatitis B Surface Antigen Negative (Negative)
[2024-04-23 11:49] LABS: Hepatitis A Ab IgM Negative; Hepatitis B Core IgM Negative (Negative)
[2024-04-23 11:50] LABS: Hepatitis C Antibody Negative (Negative)
--- NOTE | 2024-04-23 12:52 | DVHPN2 ---
Progress Note - Dictate Date Seen: Apr 23, 2024 Medical Necessity Reason Pt with a Central, PICC or Fol: No Subjective Pt seen in SDU. Planned for PM to ICD exchange tomorrow with Dr Tamayo. Chart reviewed. vital signs Vital Sign Date Time Temp Pulse Resp B/P (MAP) Pulse Ox O2 Delivery O2 Flow Rate FiO2 04/23/24 12:00 97.9 79 20 102/58 (73) 100 97.9 04/23/24 08:00 Oxymizer 3 N/A Total Intake and Output 04/22/24 04/22/24 04/23/24 15:00 23:00 07:00 Intake Total 319 ml 150 ml Output Total 120 ml 70 ml Balance 199 ml 80 ml medications Current Medications Medications Dose Ordered Sig/Colleen Route Start Time Stop Time Status Last Admin Dose Admin Sodium Chloride 10 ml Q8HR IV 04/16/24 06:00 04/23/24 12:47 10 ML Docusate Sodium 100 mg BIDPRN PRN PO 04/16/24 04:30 Morphine Sulfate 2 mg Q4HPRN PRN IV 04/16/24 04:30 04/23/24 02:08 2 MG Atorvastatin Calcium 40 mg HS PO 04/16/24 22:00 04/22/24 22:02 40 MG Sevelamer HCl 800 mg TIDWM PO 04/16/24 08:00 04/23/24 12:47 800 MG Ceftriaxone Sodium 50 ml @ 100 mls/hr DAILY@09 IV 04/16/24 06:00 04/23/24 12:47 100 MLS/HR Ondansetron HCl 4 mg Q4HP PRN IV 04/16/24 05:00 04/20/24 12:29 4 MG Acetaminophen 650 mg Q6HP PRN PO 04/16/24 05:00 Nitroglycerin 0.4 mg Q5MINP PRN SL 04/16/24 05:00 Morphine Sulfate 2 mg Q30M PRN IV 04/16/24 05:00 04/19/24 15:38 2 MG Amiodarone HCl 400 mg DAILY PO 04/17/24 10:00 04/21/24 14:04 400 MG Pantoprazole Sodium 40 mg DAILY@0600 PO 04/17/24 06:00 04/23/24 05:58 40 MG Metoprolol Succinate 25 mg DAILY PO 04/17/24 10:00 04/21/24 14:05 25 MG Phenylephrine HCl 250 ml @ 30 mls/hr Q8H20M IV 04/20/24 15:15 Digoxin 0.125 mg EOD PO 04/22/24 10:00 Heparin Sodium (Porcine) 5,000 units Q12HR SC 04/21/24 10:00 04/22/24 22:02 5,000 UNITS Sodium Chloride 1,000 ml @ 50 mls/hr Q20H IV 04/22/24 07:00 04/22/24 06:58 50 MLS/HR laboratory and microbiology Laboratory Tests 04/23/24 02:08 Test 04/23/24 02:08 Range/Units Serum Glucose 120 H 74-106 mg/dL Assessment/Plan This is a 64-year old male who initially presented (04/15/2024) with generalized weakness. Records indicate the patient had reported associated shortness of breath and dizziness which he was found to be hypotensive and subsequently initiated briefly on vasopressor therapy for hemodynamic support (later improved). Records further indicate patient was reportedly found in atrial fibrillation with rapid ventricular response which he was subsequently administered Amiodarone bolus resulting in successful chemical cardioversion. It is of note patient has an underlying history of coronary artery disease with reported (as per patient) last cardiac catheterization approximately 3-4 years ago in [place], [place] resulting in coronary revascularization/stenting which he remains on Plavix 75mg daily. As such, he carries an underlying diagnosis of dilated/ischemic cardiomyopathy with last known LVEF of 20% as per Echocardiogram (04/08/2024) which he remains on GDMT for systolic heart failure as managed by his primary [employer] Dr. Manuel in [place]. It is of note he is status post Biotronic dual-chamber permanent pacemaker implantation (2014) which records indicate patient furthermore has a previous history of tachyarrhythmias including paroxysmal atrial fibrillation and non-sustained ventricular tachycardia. EKG at present reveals a QRS > 120ms. HS troponin trend is found unremarkable (29 - 31 - 46). Electrolytes (potassium/magnesium) are found to be within normal range. As the patient has an underlying history of dilated/ischemic cardiomyopathy and tachyarrhythmias (NSVT) with last known LVEF of 20% despite GDMT for systolic heart failure and previous coronary revascularization, Electrophysiology services have now been involved to evaluate the patient for potential AICD upgrade. Past medical history includes coronary artery disease status post previous PCI (multiple reported), systolic heart failure, dilated/ischemic cardiomyopathy, ESRD on hemodialysis status post RUE AVF, hyperlipidemia, pulmonary hypertension, paroxysmal atrial fibrillation on chronic anticoagulation, non- sustained ventricular tachycardia, thrombocytopenia, status post dual chamber PPM implantation with Biotronic (2014), cardiac ablations (unknown type), status post right subclavian graft Echocardiogram: (04/08/2024) Severely dilated left ventricle. Severely reduced left ventricular systolic function estimated ejection fraction 20%. There is global wall akinesia. There is a grade 1 diastolic dysfunction. Severely dilated right ventricle. Severely reduced right ventricular systolic function. Severely elevated right ventricular systolic pressure 75 mm of mercury. Severely dilated right and left atra. There is [id number] mitral valve regurgitation. There is sohu-dp-beprypyz tricuspid regurgitation. The aortic valve is mildly thickened and sclerotic, there is a trace of aortic valve regurgitation The pulmonary is grossly normal. No pericardial effusion. Assessment: Acute on chronic systolic heart failure (decompensated) Dilated/Ischemic cardiomyopathy, LVEF of 20% per Echocardiogram (04/08/2024) Coronary artery disease, status post previous coronary revascularization (PCI) Paroxysmal atrial fibrillation, on chronic anticoagulation Presence of Biotronic dual-chamber PPM (2014) QRS duration > 120 milliseconds Pulmonary hypertension ESRD on hemodialysis Pancytopenia Electrophysiology Suggestions for Management: As EKG at present reveals a QRS > 120ms in a patient with an underlying history of dilated/ischemic cardiomyopathy, and tachyarrhythmias (NSVT) with last known LVEF of 20% per Echocardiogram (04/08/2024) despite GDMT for systolic heart failure and previous coronary revascularization, patient benefits from undergoing ICD upgrade with addition of LV lead for primary prevention against SCD and cardiac resynchronization therapy. Benefits, risks, and alternatives were discussed at length with the patient which he is agreeable to the plan of care. As such, will plan for procedure this upcoming Saturday04/24/24, with Dr. Tamayo. Patient has been consented and will be NPO status at midnight (04/24/2024). Hold current Plavix and Eliquis. May proceed with Heparin injections during the interim (proceed with PLT surveillance) with plan to discontinue Saturday evening. Will proceed to follow from an EP perspective. Remains of cardiac management as per primary Cardiology Team. Proceed with close observation for overt signs of fluid overload Proceed with strict intakes, outputs, and daily weights Proceed with close rate and rhythm surveillance Proceed with close hemodynamic surveillance Proceed with optimized blood pressure control Transfuse to sustain HGB level above 7.0 Sustain Magnesium level greater than 2.0 Sustain Potassium level greater than 4.0 Follow up renal function and electrolytes Management in SDU Follow up Nephrology recommendations Follow up Primary Cardiology recommendations Will proceed to follow from a cardiac perspective Further recommendations per clinical progression All available diagnostic labs, EKG's, and images were personally reviewed Patient's status, findings, and plan of care was reviewed and discussed with supervising physician Dr. Tamayo, who is in agreement with current plan of care. Plan of care discussed with and agreed upon by patient / primary RN Prognosis: Guarded Thank you for allowing me to participate in the care of this patient. Further recommendations based on patients clinical course and progression, primary attending, and other consultants. Will continue to follow with primary attending. If you have any questions or concerns, please do not hesitate to contact me. A total of 75 minutes was spent reviewing the patient record, examining the patient, making a diagnostic and therapeutic plan, discussing this plan with medical personnel, following up on diagnostic studies and following the patient for clinical stability excluding any and all procedures. At least 50% of this time was spent in direct, ubmc-iy-pvex contact. Dietary Evaluation Review Comments: Follow the renal standard diet regimen, monitor PO intake to meet 75% of his needs. Expected Outcomes/Goals: maintain lab value WNL for ESRD-HD Plan discussed with: Patient, Other (RN) Provider Statement: I have reviewed the case with my supervising physician. We have agreed with the plan of care. JIM ONEILL Apr 23, 2024 12:51
--- NOTE | 2024-04-23 13:14 | DVH ---
EXAM: XY CHEST XRAY 1 VIEW Indication: interval changes in right pleural effusion Technique: Single frontal view of the chest was obtained Comparison: XY CHEST PORTABLE on DOS: 04/23/24, XY CHEST PORTABLE on DOS: 04/22/24, XY CHEST PORTABLE on DOS: 04/15/24, XY CHEST PORTABLE on DOS: 04/07/24 FINDINGS: Lines and Tubes: Cardiac pacemaker projects over left chest wall. Vascular stent projects over the r ight chest. Lungs: Near complete opacification of the right hemithorax. Pleura: Large right pleural effusion. No pneumothorax. Cardiomediastinal contours: Cardiomegaly. Bones: No acute osseous abnormality. IMPRESSION: Large right pleural effusion.
--- NOTE | 2024-04-23 16:10 | DVHPN2 ---
Progress Note Date Seen: Apr 23, 2024 Medical Necessity Reason Pt with a Central, PICC or Fol: No Subjective Patient reports: No new complaints Review of Systems: HEENT:Normal, CVS:Normal, RESPIRATORY:Normal, GI:Normal, :Normal, MSK:Normal, NEURO:Normal Objective vital signs Vital Sign Date Time Temp Pulse Resp B/P (MAP) Pulse Ox O2 Delivery O2 Flow Rate FiO2 04/23/24 12:00 97.9 79 20 102/58 (73) 100 97.9 04/23/24 12:00 Oxymizer 4 N/A Total Intake and Output 04/22/24 04/22/24 04/23/24 15:00 23:00 07:00 Intake Total 319 ml 150 ml Output Total 120 ml 70 ml Balance 199 ml 80 ml medications Current Medications Medications Dose Ordered Sig/Colleen Route Start Time Stop Time Status Last Admin Dose Admin Sodium Chloride 10 ml Q8HR IV 04/16/24 06:00 04/23/24 12:47 10 ML Docusate Sodium 100 mg BIDPRN PRN PO 04/16/24 04:30 Morphine Sulfate 2 mg Q4HPRN PRN IV 04/16/24 04:30 04/23/24 02:08 2 MG Atorvastatin Calcium 40 mg HS PO 04/16/24 22:00 04/22/24 22:02 40 MG Sevelamer HCl 800 mg TIDWM PO 04/16/24 08:00 04/23/24 12:47 800 MG Ceftriaxone Sodium 50 ml @ 100 mls/hr DAILY@09 IV 04/16/24 06:00 04/23/24 12:47 100 MLS/HR Ondansetron HCl 4 mg Q4HP PRN IV 04/16/24 05:00 04/20/24 12:29 4 MG Acetaminophen 650 mg Q6HP PRN PO 04/16/24 05:00 Nitroglycerin 0.4 mg Q5MINP PRN SL 04/16/24 05:00 Morphine Sulfate 2 mg Q30M PRN IV 04/16/24 05:00 04/19/24 15:38 2 MG Amiodarone HCl 400 mg DAILY PO 04/17/24 10:00 04/21/24 14:04 400 MG Pantoprazole Sodium 40 mg DAILY@0600 PO 04/17/24 06:00 04/23/24 05:58 40 MG Metoprolol Succinate 25 mg DAILY PO 04/17/24 10:00 04/21/24 14:05 25 MG Phenylephrine HCl 250 ml @ 30 mls/hr Q8H20M IV 04/20/24 15:15 Digoxin 0.125 mg EOD PO 04/22/24 10:00 Heparin Sodium (Porcine) 5,000 units Q12HR SC 04/21/24 10:00 04/23/24 13:28 5,000 UNITS Sodium Chloride 1,000 ml @ 50 mls/hr Q20H IV 04/22/24 07:00 04/22/24 06:58 50 MLS/HR Examination: GENERAL:Normal, HEENT:Abnormal, NECK:Normal, LUNGS:Abnormal, CVS:Normal, ABDOMEN:Normal, MSK:Abnormal, SKIN:Normal, NEURO:Normal, :Normal laboratory and microbiology Laboratory Tests 04/23/24 02:08 Test 04/23/24 02:08 Range/Units Serum Glucose 120 H 74-106 mg/dL Microbiology Date/Time Source Procedure Growth Status 04/20/24 17:34 Nose MRSA Screen - Final Complete 04/16/24 10:02 Blood Blood Culture - Final NO GROWTH AFTER 5 DAYS OF INCUBATION. Complete Problem List/Assessment/Plan Problem List/Assessment/Plan ESRD on hemodialysis, out of the area Acute on chronic HFrEF, ejection fraction 20%. Hypertension Anemia of chronic disease Coronary artery disease Afib RVR leading to near syncope in setting of hypotension Plan/recommendation seen on HD 04/23,uf as tolerated pending ICD upgrade - Patient to resume chronic outpatient dialysis at his facility in [place] upon discharge Plan discussed with: Patient Dietary Evaluation Review Comments: Follow the renal standard diet regimen, monitor PO intake to meet 75% of his needs. Expected Outcomes/Goals: maintain lab value WNL for ESRD-HD ADITYA DUNCAN MD Apr 23, 2024 16:10
--- NOTE | 2024-04-23 16:44 | MEDREC ---
[facility] Intervention Section I [facility] Intervention: Review courses of therapy (PATIENT HAS BEEN ON CEFTRIAXONE FOR 8 DAYS (SINCE 04/16-) FOR NO CLEAR INDICATION. THE FINAL BLOOD CULTURE SHOWED NO GROWTH. PLEASE CONSIDER DISCONTINUING THE ANTIBIOTIC) MICHELLE FIGUEROA Apr 23, 2024 16:44
--- NOTE | 2024-04-23 18:25 | DVHNC2 ---
Procedure - Ultrasound-guided thoracentesis procedure note: Physician: Dr Radha Elder Time out time: 18:01 pm Patient medications and allergies reviewed. The risks and benefits of the procedure and the sedation options and risk were discussed with the patient's healthcare proxy. All questions were answered and informed consent was obtained. Patient identification and proposed procedure were verified prior to the procedure by the physician, and a nurse in the patient's room. The heart rate, respiratory rate, oxygen saturations, blood pressure, adequacy of pulmonary ventilation, and response to care were monitored throughout the procedure. The physical status of the patient was reassessed after the procedure. Date: 04/23/2024 Consent: Consent was obtained from patient's healthcare proxy prior to procedure. Indication, risks, and benefits were explained at length. Procedure summary: A time-out was performed and a chest x-ray was reviewed prior to procedure. The appropriate site was confirmed and marked. My hands were washed immediately prior to the procedure, I wore a surgical cap, mask with protective eyewear, sterile gown and sterile gloves throughout the procedure. The patient was prepped and draped in a sterile manner using chlorhexidine scrub after the appropriate level was percussed and confirmed by ultrasound. 1% lidocaine was used to anesthetize the skin, subcutaneous tissue, superior aspect of the rib periosteum and parietal pleura. A finder needle was then introduced over the superior aspect of the rib to locate the pleural fluid; yellow fluid was aspirated. Thoracentesis needle was then introduced through the skin incision into the pleural space using negative aspiration pressure. The thoracentesis catheter was then threaded without difficulty. 2000 mL's of yellow colored fluid were removed without difficulty. The catheter was then removed. No immediate complications were noted during the procedure. A post-procedure chest x-ray is pending at the time of this note. The pleural fluid will be sent for cultures and cytology. Estimated blood loss is less than 5 mL's. CPT: 18612 DEVAUGHN ELDER MD Apr 23, 2024 18:25
--- NOTE | 2024-04-23 20:07 | DVH ---
CHEST RADIOGRAPH Indication: post thoracentesis Technique: Single frontal view of the chest was obtained Comparison: XY CHEST XRAY 1 VIEW on DOS: 04/23/24, XY CHEST PORTABLE on DOS: 04/23/24, XY CHEST PRAVIN BLE on DOS: 04/22/24 FINDINGS: Lines and Tubes: . Left-sided approach dual lead pacemaker terminating within right atrium and right ventricle. Right subclavian vascular stent is noted. Lungs: Improvement in the right-sided pleural effusion with small to moderate residual and associated atelectasis. Underlying right lower lung zone pneumonia can not be excluded. Interstitial opacities of the bilateral lungs; relatively unchanged from prior imaging. Obscuration o f the left hemidiaphragm. No pneumothorax. Cardiomediastinal contours: Moderate cardiomegaly with moderate to heavy atherosclerotic calcificatio n and uncoiling of the aorta. Bones: No acute osseous abnormality. IMPRESSION: Interval improvement in the right-sided pleural effusion with small to moderate residual and associat ed atelectasis. Underlying right lower lung zone pneumonia can not be excluded. No pneumothorax. Pulmonary vascular congestion with possible small left-sided pleural effusion.
[2024-04-23 20:20] LABS: Body Fluid White Blood Cells 550 CUMM (0-200)
[2024-04-23 20:21] LABS: Body Fluid Polymorphonuclear 23 % (0-25); Body Fluid Red Blood Cells 102 CUMM (0-2000)
--- NOTE | 2024-04-23 22:03 | DVHPN2 ---
Progress Note - Dictate Date Seen: Apr 23, 2024 Medical Necessity Reason Pt with a Central, PICC or Fol: No Subjective Patient seen and examined at bedside. Remains on supplemental oxygen Overnight events reviewed. vital signs Vital Sign Date Time Temp Pulse Resp B/P (MAP) Pulse Ox O2 Delivery O2 Flow Rate FiO2 04/23/24 20:00 98.4 76 11 90/60 (70) 100 98.4 04/23/24 20:00 Nasal Cannula* 4 36 Total Intake and Output 04/22/24 04/22/24 04/23/24 15:00 23:00 07:00 Intake Total 319 ml 150 ml Output Total 120 ml 70 ml Balance 199 ml 80 ml medications Current Medications Medications Dose Ordered Sig/Colleen Route Start Time Stop Time Status Last Admin Dose Admin Sodium Chloride 10 ml Q8HR IV 04/16/24 06:00 04/23/24 21:26 10 ML Docusate Sodium 100 mg BIDPRN PRN PO 04/16/24 04:30 Morphine Sulfate 2 mg Q4HPRN PRN IV 04/16/24 04:30 04/23/24 02:08 2 MG Atorvastatin Calcium 40 mg HS PO 04/16/24 22:00 04/23/24 21:26 40 MG Sevelamer HCl 800 mg TIDWM PO 04/16/24 08:00 04/23/24 12:47 800 MG Ceftriaxone Sodium 50 ml @ 100 mls/hr DAILY@09 IV 04/16/24 06:00 04/23/24 12:47 100 MLS/HR Ondansetron HCl 4 mg Q4HP PRN IV 04/16/24 05:00 04/20/24 12:29 4 MG Acetaminophen 650 mg Q6HP PRN PO 04/16/24 05:00 Nitroglycerin 0.4 mg Q5MINP PRN SL 04/16/24 05:00 Morphine Sulfate 2 mg Q30M PRN IV 04/16/24 05:00 04/19/24 15:38 2 MG Amiodarone HCl 400 mg DAILY PO 04/17/24 10:00 04/21/24 14:04 400 MG Pantoprazole Sodium 40 mg DAILY@0600 PO 04/17/24 06:00 04/23/24 05:58 40 MG Metoprolol Succinate 25 mg DAILY PO 04/17/24 10:00 04/21/24 14:05 25 MG Phenylephrine HCl 250 ml @ 30 mls/hr Q8H20M IV 04/20/24 15:15 Digoxin 0.125 mg EOD PO 04/22/24 10:00 Heparin Sodium (Porcine) 5,000 units Q12HR SC 04/21/24 10:00 04/23/24 21:27 5,000 UNITS Sodium Chloride 1,000 ml @ 50 mls/hr Q20H IV 04/22/24 07:00 04/22/24 06:58 50 MLS/HR objective Gen.: Patient lying in bed in no apparent distress. On supplemental oxygen. Head: Normocephalic, atraumatic. Eyes: EOMI/PERRLA. Ears: Normal hearing. Normal anatomy. Neck/trachea: Trachea midline, supple. Nose: Normal external anatomy. Mouth: Moist mucous membranes. Chest: Decreased air entry bilaterally. No wheezing or rhonchi. Cardiovascular: Positive S1, positive S2. Regular rate and rhythm. Abdomen: Positive bowel sounds in all 4 quadrants. Soft, non-tender, non- distended. : Deferred. Rectal: Deferred. Skin: Warm, dry. Intact. Extremities: 2+ radial pulses bilaterally. No lower extremity edema. Neuro: Awake, alert, oriented x3. No gross motor or sensory deficits. Cranial nerves II through XII intact. Gait not assessed. laboratory and microbiology Laboratory Tests 04/23/24 02:08 Test 04/23/24 02:08 Range/Units Serum Glucose 120 H 74-106 mg/dL Assessment/Plan Impression: Acute hypoxic respiratory failure Pleural effusion Atelectasis End-stage renal disease on hemodialysis CHF Atrial fibrillation with RVR Anemia of chronic disease Events: Supplemental oxygen on 2 liters/minute via Oxymizer Taper O2 as tolerated. Hemodialysis this AM. Limited chest ultrasound will be performed after HD to assess for changes in right pleural effusion. Continue antibiotics Incentive spirometry Monitor hemodynamics Pain control Avoid oversedation Diurese w/ Lasix Monitor renal function Monitor electrolytes. Supplement as necessary. Labs and imaging reviewed. Rest of plan as noted below. Plan: Chest x-ray imaging report reviewed. Left chest wall pacemaker. No acute opacities. Moderate right pleural effusion. No pneumothorax. Supplemental oxygen Keep O2 saturation above 92%. Continue antibiotics Monitor renal function. Monitor electrolytes Supplement as necessary. Monitor ins and outs. Nephrology recommendations appreciated. Hemodialysis per Nephrology. On digoxin On metoprolol DVT prophylaxis-heparin subcutaneously Prophylaxis with Protonix Prognosis: Poor given multiple comorbidities. Rest of plan per hospitalist and other consultants. Thank you JI Katz for allowing me to participate in this patient's care. Further recommendations will depend on patient's clinical course. Please do not hesitate to contact me if you have any questions or concerns. This medical document was created using an electronic medical record system with [employer] dictation system. Although this document has been carefully reviewed, there may still be some phonetic and typographical errors. These areas are purely typographical due to imperfections of the software programs, and do not reflect any compromise in the patient's medical care. Dietary Evaluation Review Comments: Follow the renal standard diet regimen, monitor PO intake to meet 75% of his needs. Expected Outcomes/Goals: maintain lab value WNL for ESRD-HD Plan discussed with: Other (MITCHEL Rodriguez) Critical Care Time(min): 35 DEVAUGHN LEONG MD Apr 23, 2024 22:03
[2024-04-24] VITALS (22 sets, daily range): BP systolic 97–136; BP diastolic 53–69; PULSE 60–78; RESP 11–20; TEMP 96.6–98; O2SAT 96–100
[2024-04-24 05:49] LABS: Basophils # (auto) 0.1 10 ^3/uL (0-0.2); Eosinophils # (auto) 0.3 10 ^3/uL (0-0.8); Eosinophils % (auto) 6.7 % (0.0-7.0); Hematocrit 29.9 % (41.0-53.0); Hemoglobin 9.3 g/dL (13.5-17.5); Lymphocytes # (auto) 0.2 10 ^3/uL (0.4-5.4); Mean Corpuscular Hemoglobin 30.9 pg (28.0-32.0); Mean Corpuscular Hgb Conc. 31.1 g/dL (32.0-36.0); Mean Corpuscular Volume 99.6 fL (80.0-100.0); Monocytes # (auto) 0.3 10 ^3/uL (0-1.3); Monocytes % (auto) 7.1 % (0.0-12.0); Neutrophils # (auto) 3.3 10 ^3/uL (1.6-8.6); Neutrophils % (auto) 79.2 % (37.0-80.0); Nucleated Red Blood Cells % 0.1 %; Platelet Count (auto) 116 10^3/uL (140-450); Red Cell Distribution Width 18.5 % (11.8-14.3); White Blood Cell 4.1 10^3/uL (4.4-10.8)
[2024-04-24 06:12] LABS: Anion Gap 7 (5-15); Calcium 9.8 mg/dL (8.7-10.4); Carbon Dioxide 31 mmol/L (20-31)
[2024-04-24 06:17] LABS: BUN/Creatinine Ratio 4.9 (10.0-20.0)
[2024-04-24 06:37] LABS: Blood Urea Nitrogen 25 mg/dL (9-23); Chloride 97 mmol/L (98-107); Glucose 121 mg/dL (74-106); Sodium 135 mmol/L (136-145)
[2024-04-24] MEDS: SODIUM CHLORIDE 0.9% 250 ML IV ONE (07:00)
--- NOTE | 2024-04-24 07:02 | DVHPN2 ---
Progress Note - Dictate Date Seen: Apr 24, 2024 Medical Necessity Reason Pt with a Central, PICC or Fol: No vital signs Vital Sign Date Time Temp Pulse Resp B/P (MAP) Pulse Ox O2 Delivery O2 Flow Rate FiO2 04/24/24 06:00 76 04/24/24 06:00 16 114/59 (77) 99 04/24/24 06:00 Nasal Cannula* 4 36 04/24/24 04:00 97.7 97.7 Total Intake and Output 04/23/24 04/23/24 04/24/24 15:00 23:00 07:00 Intake Total 50 ml 2040 ml 150 ml Output Total 4000 ml 20 ml Balance 50 ml -1960 ml 130 ml medications Current Medications Medications Dose Ordered Sig/Colleen Route Start Time Stop Time Status Last Admin Dose Admin Sodium Chloride 10 ml Q8HR IV 04/16/24 06:00 04/24/24 06:07 10 ML Docusate Sodium 100 mg BIDPRN PRN PO 04/16/24 04:30 Morphine Sulfate 2 mg Q4HPRN PRN IV 04/16/24 04:30 04/23/24 02:08 2 MG Atorvastatin Calcium 40 mg HS PO 04/16/24 22:00 04/23/24 21:26 40 MG Sevelamer HCl 800 mg TIDWM PO 04/16/24 08:00 04/23/24 12:47 800 MG Ceftriaxone Sodium 50 ml @ 100 mls/hr DAILY@09 IV 04/16/24 06:00 04/23/24 12:47 100 MLS/HR Ondansetron HCl 4 mg Q4HP PRN IV 04/16/24 05:00 04/20/24 12:29 4 MG Acetaminophen 650 mg Q6HP PRN PO 04/16/24 05:00 Nitroglycerin 0.4 mg Q5MINP PRN SL 04/16/24 05:00 Morphine Sulfate 2 mg Q30M PRN IV 04/16/24 05:00 04/19/24 15:38 2 MG Amiodarone HCl 400 mg DAILY PO 04/17/24 10:00 04/21/24 14:04 400 MG Pantoprazole Sodium 40 mg DAILY@0600 PO 04/17/24 06:00 04/23/24 05:58 40 MG Metoprolol Succinate 25 mg DAILY PO 04/17/24 10:00 04/21/24 14:05 25 MG Phenylephrine HCl 250 ml @ 30 mls/hr Q8H20M IV 04/20/24 15:15 Digoxin 0.125 mg EOD PO 04/22/24 10:00 Heparin Sodium (Porcine) 5,000 units Q12HR SC 04/21/24 10:00 04/23/24 21:27 5,000 UNITS Sodium Chloride 1,000 ml @ 50 mls/hr Q20H IV 04/22/24 07:00 04/22/24 06:58 50 MLS/HR laboratory and microbiology Laboratory Tests 04/24/24 05:24 Test 04/24/24 05:24 Range/Units Serum Glucose 121 H 74-106 mg/dL Assessment/Plan Assessment/Plan This is a 64-year old male who initially presented (04/15/2024) with generalized weakness. Records indicate the patient had reported associated shortness of breath and dizziness which he was found to be hypotensive and subsequently initiated briefly on vasopressor therapy for hemodynamic support (later improved). Records further indicate patient was reportedly found in atrial fibrillation with rapid ventricular response which he was subsequently administered Amiodarone bolus resulting in successful chemical cardioversion. It is of note patient has an underlying history of coronary artery disease with reported (as per patient) last cardiac catheterization approximately 3-4 years ago in [place], [place] resulting in coronary revascularization/stenting which he remains on Plavix 75mg daily. As such, he carries an underlying diagnosis of dilated/ischemic cardiomyopathy with last known LVEF of 20% as per Echocardiogram (04/08/2024) which he remains on GDMT for systolic heart failure as managed by his primary Aircraft Armorer Dr. Manuel in [place]. It is of note he is status post Biotronic dual-chamber permanent pacemaker implantation (2014) which records indicate patient furthermore has a previous history of tachyarrhythmias including paroxysmal atrial fibrillation and non-sustained ventricular tachycardia. EKG at present reveals a QRS > 120ms. HS troponin trend is found unremarkable (29 - 31 - 46). Electrolytes (potassium/magnesium) are found to be within normal range. As the patient has an underlying history of dilated/ischemic cardiomyopathy and tachyarrhythmias (NSVT) with last known LVEF of 20% despite GDMT for systolic heart failure and previous coronary revascularization, Electrophysiology services have now been involved to evaluate the patient for potential AICD upgrade. Past medical history includes coronary artery disease status post previous PCI (multiple reported), systolic heart failure, dilated/ischemic cardiomyopathy, ESRD on hemodialysis status post RUE AVF, hyperlipidemia, pulmonary hypertension, paroxysmal atrial fibrillation on chronic anticoagulation, non- sustained ventricular tachycardia, thrombocytopenia, status post dual chamber PPM implantation with Biotronic (2014), cardiac ablations (unknown type), status post right subclavian graft Echocardiogram: (04/08/2024) Severely dilated left ventricle. Severely reduced left ventricular systolic function estimated ejection fraction 20%. There is global wall akinesia. There is a grade 1 diastolic dysfunction. Severely dilated right ventricle. Severely reduced right ventricular systolic function. Severely elevated right ventricular systolic pressure 75 mm of mercury. Severely dilated right and left atra. There is [id number] mitral valve regurgitation. There is [id number] tricuspid regurgitation. The aortic valve is mildly thickened and sclerotic, there is a trace of aortic valve regurgitation The pulmonary is grossly normal. No pericardial effusion. Assessment: Acute on chronic systolic heart failure (decompensated) Dilated/Ischemic cardiomyopathy, LVEF of 20% per Echocardiogram (04/08/2024) Coronary artery disease, status post previous coronary revascularization (PCI) Paroxysmal atrial fibrillation, on chronic anticoagulation Presence of Biotronic dual-chamber PPM (2014) QRS duration > 120 milliseconds Pulmonary hypertension ESRD on hemodialysis Pancytopenia Electrophysiology Suggestions for Management: As EKG at present reveals a QRS > 120ms in a patient with an underlying history of dilated/ischemic cardiomyopathy, and tachyarrhythmias (NSVT) with last known LVEF of 20% per Echocardiogram (04/08/2024) despite GDMT for systolic heart failure and previous coronary revascularization, patient benefits from undergoing ICD upgrade with addition of LV lead for primary prevention against SCD and cardiac resynchronization therapy. Patient is planned for procedure this morning with Dr. Tamayo. Patient has been consented and remains NPO status. Proceed to hold current Plavix and Eliquis. Hold Heparin injections. Plan to hold anticoagulation for approximately 7 days post device implantation as anticoagulation may induce intra-pocket bleeding. Patient will need to follow up outpatient outpatient within 7 days of implantation for staple removal. To proceed with Doxycycline 100mg po twice daily for a total of 14 doses post device implantation. Will proceed to follow from an EP perspective. Remainder of cardiac management as per primary Cardiology Team. Proceed with close observation for overt signs of fluid overload Proceed with strict intakes, outputs, and daily weights Proceed with close rate and rhythm surveillance Proceed with close hemodynamic surveillance Proceed with optimized blood pressure control Transfuse to sustain HGB level above 7.0 Sustain Magnesium level greater than 2.0 Sustain Potassium level greater than 4.0 Follow up renal function and electrolytes Management in SDU Follow up Nephrology recommendations Follow up Primary Cardiology recommendations Will proceed to follow from a cardiac perspective Further recommendations per clinical progression All available diagnostic labs, EKG's, and images were personally reviewed Patient's status, findings, and plan of care was reviewed and discussed with supervising physician Dr. Tamayo, who is in agreement with current plan of care. Plan of care discussed with and agreed upon by patient / primary RN Prognosis: Guarded Thank you for allowing me to participate in the care of this patient. Further recommendations based on patients clinical course and progression, primary attending, and other consultants. Will continue to follow with primary attending. If you have any questions or concerns, please do not hesitate to contact me. A total of 75 minutes was spent reviewing the patient record, examining the patient, making a diagnostic and therapeutic plan, discussing this plan with medical personnel, following up on diagnostic studies and following the patient for clinical stability excluding any and all procedures. At least 50% of this time was spent in direct, [id number] contact. Dietary Evaluation Review Comments: Follow the renal standard diet regimen, monitor PO intake to meet 75% of his needs. Expected Outcomes/Goals: maintain lab value WNL for ESRD-HD Plan discussed with: Other (Patient/Primary RN ) WILL MONTANEZ Apr 24, 2024 07:02
[2024-04-24] MEDS: VANCOMYCIN HCL 1000 MG VL ONE (07:17)
[2024-04-24] MEDS: LIDOCAINE 2%HCL (LOCAL ANESTH.) INJ 20ML MDV ONE (07:18)
[2024-04-24] MEDS: VANCOMYCIN 1GM/250ML KIT 250 ML IV ONE (07:18)
[2024-04-24] MEDS: IODIXANOL 320MG/ML 100ML BTL IV ONE (07:18)
[2024-04-24] MEDS: fentaNYL CITRATE 100 MCG/2 ML VL ONE (07:18)
[2024-04-24] MEDS: MIDAZOLAM HCL 2MG/2ML 2ml VIAL (1mg/ml) ONE (07:18)
[2024-04-24 08:40] LABS: INR 1.22 (0.9-1.15); Partial Thromboplastin Time 32.2 SEC (24.5-34.5); Prothrombin Time 12.7 sec (9.3-11.8)
--- NOTE | 2024-04-24 11:19 | DVHPN2 ---
Progress Note - Dictate Date Seen: Apr 24, 2024 Medical Necessity Reason Pt with a Central, PICC or Fol: No vital signs Vital Sign Date Time Temp Pulse Resp B/P (MAP) Pulse Ox O2 Delivery O2 Flow Rate FiO2 04/24/24 11:00 67 14 118/63 (81) 97 04/24/24 10:00 Nasal Cannula* 4 36 04/24/24 07:00 97.3 97.3 Total Intake and Output 04/23/24 04/23/24 04/24/24 15:00 23:00 07:00 Intake Total 50 ml 2040 ml 150 ml Output Total 4000 ml 20 ml Balance 50 ml -1960 ml 130 ml medications Current Medications Medications Dose Ordered Sig/Colleen Route Start Time Stop Time Status Last Admin Dose Admin Sodium Chloride 10 ml Q8HR IV 04/16/24 06:00 04/24/24 06:07 10 ML Docusate Sodium 100 mg BIDPRN PRN PO 04/16/24 04:30 Morphine Sulfate 2 mg Q4HPRN PRN IV 04/16/24 04:30 04/23/24 02:08 2 MG Atorvastatin Calcium 40 mg HS PO 04/16/24 22:00 04/23/24 21:26 40 MG Sevelamer HCl 800 mg TIDWM PO 04/16/24 08:00 04/23/24 12:47 800 MG Ceftriaxone Sodium 50 ml @ 100 mls/hr DAILY@09 IV 04/16/24 06:00 04/23/24 12:47 100 MLS/HR Ondansetron HCl 4 mg Q4HP PRN IV 04/16/24 05:00 04/20/24 12:29 4 MG Acetaminophen 650 mg Q6HP PRN PO 04/16/24 05:00 Nitroglycerin 0.4 mg Q5MINP PRN SL 04/16/24 05:00 Morphine Sulfate 2 mg Q30M PRN IV 04/16/24 05:00 04/19/24 15:38 2 MG Amiodarone HCl 400 mg DAILY PO 04/17/24 10:00 04/21/24 14:04 400 MG Pantoprazole Sodium 40 mg DAILY@0600 PO 04/17/24 06:00 04/23/24 05:58 40 MG Metoprolol Succinate 25 mg DAILY PO 04/17/24 10:00 04/21/24 14:05 25 MG Phenylephrine HCl 250 ml @ 30 mls/hr Q8H20M IV 04/20/24 15:15 Digoxin 0.125 mg EOD PO 04/22/24 10:00 Heparin Sodium (Porcine) 5,000 units Q12HR SC 04/21/24 10:00 04/23/24 21:27 5,000 UNITS Sodium Chloride 1,000 ml @ 50 mls/hr Q20H IV 04/22/24 07:00 04/22/24 06:58 50 MLS/HR Vancomycin HCl 250 ml @ 250 mls/hr Q12H IV 04/24/24 22:00 04/25/24 10:59 Doxycycline Monohydrate 100 mg Q12HR PO 04/25/24 10:00 objective elderly male NAD irregular rate no edema laboratory and microbiology Laboratory Tests 04/24/24 05:24 Test 04/24/24 05:24 Range/Units Serum Glucose 121 H 74-106 mg/dL Assessment/Plan ESRD on hemodialysis, out of the area Acute on chronic HFrEF, ejection fraction 20%. Hypertension Anemia of chronic disease Coronary artery disease Afib RVR leading to near syncope in setting of hypotension ICD per cardiology will schedule dialysis Dietary Evaluation Review Comments: Follow the renal standard diet regimen, monitor PO intake to meet 75% of his needs. Expected Outcomes/Goals: maintain lab value WNL for ESRD-HD Plan discussed with: Patient JOSE GUADALUPE ELLIOTT MD Apr 24, 2024 11:19
--- NOTE | 2024-04-24 12:19 | DVH ---
CHEST RADIOGRAPH Indication: pleural effusion Technique: Single frontal view of the chest was obtained Comparison: XY CHEST XRAY 1 VIEW on DOS: 04/23/24, XY CHEST XRAY 1 VIEW on DOS: 04/23/24, XY CHEST PO RTABLE on DOS: 04/23/24, XY CHEST PORTABLE on DOS: 04/22/24, XY CHEST PORTABLE on DOS: 04/15/24, XY CH EST XRAY 1 VIEW on DOS: 04/23/24 FINDINGS: Lines and Tubes: . Left-sided approach dual lead pacemaker terminating within right atrium and right ventricle. Right subclavian vascular stent is noted. Lungs: Small pick 2 right-sided pleural effusion with small to moderate residual and associated atele ctasis. Underlying right lower lung zone pneumonia can not be excluded. Interstitial opacities of the bilateral lungs; relatively unchanged from prior imaging. Obscuration o f the left hemidiaphragm. No pneumothorax. Cardiomediastinal contours: Moderate cardiomegaly with moderate to heavy atherosclerotic calcificatio n and uncoiling of the aorta. Bones: No acute osseous abnormality. IMPRESSION: No interval change.
--- NOTE | 2024-04-24 13:16 | DVHPN2 ---
Reviewed: Care Plan, H&P, Labs, Medications Changes from previous H/P or p: No Changes General: Per HPI Objective Vitals Vital Signs Date Time Temp Pulse Resp B/P (MAP) Pulse Ox O2 Delivery O2 Flow Rate FiO2 04/24/24 11:54 63 19 118/63 04/24/24 11:00 97 04/24/24 10:00 Nasal Cannula* 4 36 04/24/24 07:00 97.3 97.3 Intake/Output Intake and Output 04/24/24 07:00 Intake Total 2240 ml Output Total 4020 ml Balance -1780 ml Intake Oral 2190 ml IV Total 50 ml Output Urine Total 20 ml Other 4000 ml General Appearance: Alert, Oriented X3, Cooperative, mild distress HEENT: Atraumatic, PERRLA Lungs: Clear to auscultation, Other Cardiovascular: Normal S1, Normal S2, Other Abdomen: Normal bowel sounds, Soft, No tenderness Genitourinary: No Apparent Abnormalities Musculoskeletal: Normal sensory function, Normal motor function Neuro: Normal gait, Normal speech Skin: Dry, Intact Psych/Mental Status: Mental status NL, Mood NL Medications Current Medications Medications Dose Ordered Sig/Colleen Route Start Time Stop Time Status Last Admin Dose Admin Sodium Chloride 10 ml Q8HR IV 04/16/24 06:00 04/24/24 11:56 10 ML Docusate Sodium 100 mg BIDPRN PRN PO 04/16/24 04:30 Morphine Sulfate 2 mg Q4HPRN PRN IV 04/16/24 04:30 04/24/24 11:54 2 MG Atorvastatin Calcium 40 mg HS PO 04/16/24 22:00 04/23/24 21:26 40 MG Sevelamer HCl 800 mg TIDWM PO 04/16/24 08:00 04/24/24 11:54 800 MG Ceftriaxone Sodium 50 ml @ 100 mls/hr DAILY@09 IV 04/16/24 06:00 04/23/24 12:47 100 MLS/HR Ondansetron HCl 4 mg Q4HP PRN IV 04/16/24 05:00 04/20/24 12:29 4 MG Acetaminophen 650 mg Q6HP PRN PO 04/16/24 05:00 Nitroglycerin 0.4 mg Q5MINP PRN SL 04/16/24 05:00 Morphine Sulfate 2 mg Q30M PRN IV 04/16/24 05:00 04/19/24 15:38 2 MG Amiodarone HCl 400 mg DAILY PO 04/17/24 10:00 04/21/24 14:04 400 MG Pantoprazole Sodium 40 mg DAILY@0600 PO 04/17/24 06:00 04/23/24 05:58 40 MG Metoprolol Succinate 25 mg DAILY PO 04/17/24 10:00 04/21/24 14:05 25 MG Phenylephrine HCl 250 ml @ 30 mls/hr Q8H20M IV 04/20/24 15:15 Digoxin 0.125 mg EOD PO 04/22/24 10:00 Vancomycin HCl 250 ml @ 250 mls/hr Q12H IV 04/24/24 22:00 04/25/24 10:59 Doxycycline Monohydrate 100 mg Q12HR PO 04/25/24 10:00 Laboratory Results Laboratory Tests 04/24/24 05:24 Chemistry Test 04/24/24 05:24 Calcium Level 9.8 mg/dL (8.7-10.4) Coagulation Test 04/24/24 05:24 Prothrombin Time 12.7 sec (9.3-11.8) H Prothrombin Time INR 1.22 (0.9-1.15) H Activated Partial Thromboplast Time 32.2 SEC (24.5-34.5) Urinalysis Test 04/17/24 07:52 Urine Color Light-yellow (Yellow) Urine Clarity Clear (Clear) Urine pH 6.0 (5.0-9.0) Urine Specific [place] 1.009 (1.001-1.035) Urine Protein 1+ (Negative) H Urine Ketones Negative (Negative) Urine Blood 3+ /uL (Negative) H Urine Nitrite Negative (Negative) Urine Bilirubin Negative (Negative) Urine Urobilinogen Normal mg/dL (Negative) Urine Leukocyte Esterase 1+ /uL (Negative) Urine RBC 102 /hpf (0 - 3) Urine WBC 17 /hpf (0 - 3) Urine Squamous Epithelial Cells Few /hpf (<5) Urine Bacteria None seen /hpf (None Seen) Urine Glucose Normal mg/dL (Normal) Microbiology Microbiology Date/Time Source Procedure Growth Status 04/23/24 18:26 Pleural Fluid Gram Stain - Final Resulted 04/23/24 18:26 Pleural Fluid Body Fluid Culture - Preliminary Resulted 04/20/24 17:34 Nose MRSA Screen - Final Complete 04/16/24 10:02 Blood Blood Culture - Final NO GROWTH AFTER 5 DAYS OF INCUBATION. Complete Labs and/or images reviewed: Labs reviewed by me, Image(s) reviewed by me Assessment/Plan Assessment/Plan Covering for nurse practitioner Andrews Katz -acute hypotension secondary to atrial fibrillation -acute on chronic systolic heart failure with ejection fraction 20% -pulmonary arterial hypertension with noted elevated RSVP -coronary artery disease with previous CABG -fever ESRD with HD -anemia of chronic disease -hyperkalemia -hypervolemic hyponatremia -Acute hypoxic respiratory failure secondary to pulmonary vascular congestion -right pleural effusion Time Spent 65 minutes Condition guarded Patient is full code Advanced care planning time 20 minutes Plan discussed with: Patient Date of Service: Apr 24, 2024 Billing Provider: BETTY BRAUN MD Common Visit Codes: [id number] CARE 30-74 MIN BETTY BRAUN MD Apr 24, 2024 13:16
--- NOTE | 2024-04-24 16:29 | DVHPN2 ---
Progress Note - Dictate Date Seen: Apr 24, 2024 Medical Necessity Reason Pt with a Central, PICC or Fol: No Subjective Patient seen and examined at bedside. Remains on supplemental oxygen Overnight events reviewed. vital signs Vital Sign Date Time Temp Pulse Resp B/P (MAP) Pulse Ox O2 Delivery O2 Flow Rate FiO2 04/24/24 14:00 13 100 Nasal Cannula* 4 36 04/24/24 14:00 61 04/24/24 11:54 118/63 04/24/24 07:00 97.3 97.3 Total Intake and Output 04/23/24 04/23/24 04/24/24 15:00 23:00 07:00 Intake Total 50 ml 2040 ml 150 ml Output Total 4000 ml 20 ml Balance 50 ml -1960 ml 130 ml medications Current Medications Medications Dose Ordered Sig/Colleen Route Start Time Stop Time Status Last Admin Dose Admin Sodium Chloride 10 ml Q8HR IV 04/16/24 06:00 04/24/24 11:56 10 ML Docusate Sodium 100 mg BIDPRN PRN PO 04/16/24 04:30 Morphine Sulfate 2 mg Q4HPRN PRN IV 04/16/24 04:30 04/24/24 11:54 2 MG Atorvastatin Calcium 40 mg HS PO 04/16/24 22:00 04/23/24 21:26 40 MG Sevelamer HCl 800 mg TIDWM PO 04/16/24 08:00 04/24/24 11:54 800 MG Ceftriaxone Sodium 50 ml @ 100 mls/hr DAILY@09 IV 04/16/24 06:00 04/23/24 12:47 100 MLS/HR Ondansetron HCl 4 mg Q4HP PRN IV 04/16/24 05:00 04/20/24 12:29 4 MG Acetaminophen 650 mg Q6HP PRN PO 04/16/24 05:00 Nitroglycerin 0.4 mg Q5MINP PRN SL 04/16/24 05:00 Morphine Sulfate 2 mg Q30M PRN IV 04/16/24 05:00 04/19/24 15:38 2 MG Amiodarone HCl 400 mg DAILY PO 04/17/24 10:00 04/21/24 14:04 400 MG Pantoprazole Sodium 40 mg DAILY@0600 PO 04/17/24 06:00 04/23/24 05:58 40 MG Metoprolol Succinate 25 mg DAILY PO 04/17/24 10:00 04/21/24 14:05 25 MG Phenylephrine HCl 250 ml @ 30 mls/hr Q8H20M IV 04/20/24 15:15 Digoxin 0.125 mg EOD PO 04/22/24 10:00 Vancomycin HCl 250 ml @ 250 mls/hr Q12H IV 04/24/24 22:00 04/25/24 10:59 Doxycycline Monohydrate 100 mg Q12HR PO 04/25/24 10:00 objective Gen.: Patient lying in bed in no apparent distress. On supplemental oxygen. Head: Normocephalic, atraumatic. Eyes: EOMI/PERRLA. Ears: Normal hearing. Normal anatomy. Neck/trachea: Trachea midline, supple. Nose: Normal external anatomy. Mouth: Moist mucous membranes. Chest: Decreased air entry bilaterally. No wheezing or rhonchi. Cardiovascular: Positive S1, positive S2. Regular rate and rhythm. Abdomen: Positive bowel sounds in all 4 quadrants. Soft, non-tender, non- distended. : Deferred. Rectal: Deferred. Skin: Warm, dry. Intact. Extremities: 2+ radial pulses bilaterally. No lower extremity edema. Neuro: Awake, alert, oriented x3. No gross motor or sensory deficits. Cranial nerves II through XII intact. Gait not assessed. laboratory and microbiology Laboratory Tests 04/24/24 05:24 Test 04/24/24 05:24 Range/Units Serum Glucose 121 H 74-106 mg/dL Assessment/Plan Impression: Acute hypoxic respiratory failure Pleural effusion Atelectasis End-stage renal disease on hemodialysis CHF Atrial fibrillation with RVR Anemia of chronic disease Events: Supplemental oxygen on 3-4 liters/minute via nasal cannula Taper O2 as tolerated. Patient is s/p AICD placement today. Head of bed elevation Aspiration precautions CXR demonstrates small right-sided pleural effusion with small to moderate residual and associated atelectasis. Underlying right lower lung zone pneumonia cannot be excluded. Interstitial opacities of the bilateral lungs, stable. Obscuration of the left hemidiaphragm. No pneumothorax. Moderate cardiomegaly with moderate to heavy atherosclerotic calcification and uncoiling of the aorta. Continue antibiotics Incentive spirometry On amiodarone/metoprolol. Monitor hemodynamics Pain control Avoid oversedation Monitor renal function Monitor electrolytes. Supplement as necessary. Hemodialysis per Nephrology Labs and imaging reviewed. Rest of plan as noted below. Plan: Chest x-ray imaging report reviewed. Left chest wall pacemaker. No acute opacities. Moderate right pleural effusion. No pneumothorax. Supplemental oxygen Keep O2 saturation above 92%. Continue antibiotics Monitor renal function. Monitor electrolytes Supplement as necessary. Monitor ins and outs. Nephrology recommendations appreciated. Hemodialysis per Nephrology. On amiodarone On metoprolol DVT prophylaxis-heparin subcutaneously Prophylaxis with Protonix Prognosis: Poor given multiple comorbidities. Condition: Critical Rest of plan per hospitalist and other consultants. A total of 35 minutes of critical care time was spent reviewing the patient record, examining the patient, making a diagnostic and therapeutic plan, discussing this plan with the medical personnel, following up on diagnostic studies and following the patient for clinical stability excluding any and all procedures. At least 50% of this time was spent in direct, [id number] contact. Thank you JI Katz for allowing me to participate in this patient's care. Further recommendations will depend on patient's clinical course. Please do not hesitate to contact me if you have any questions or concerns. This medical document was created using an electronic medical record system with [employer] dictation system. Although this document has been carefully reviewed, there may still be some phonetic and typographical errors. These areas are purely typographical due to imperfections of the software programs, and do not reflect any compromise in the patient's medical care. Dietary Evaluation Review Comments: Follow the renal standard diet regimen, monitor PO intake to meet 75% of his needs. Expected Outcomes/Goals: maintain lab value WNL for ESRD-HD Plan discussed with: Other (MITCHEL Rodriguez) Critical Care Time(min): 35 DEVAUGHN LEONG MD Apr 24, 2024 16:29
[2024-04-24] MEDS: VANCOMYCIN 1GM/250ML KIT 250 ML IV SCH (21:27)
[2024-04-25] VITALS (9 sets, daily range): BP systolic 101–122; BP diastolic 50–66; PULSE 61–70; RESP 17–20; TEMP 96.4–98.1; O2SAT 94–100
--- NOTE | 2024-04-25 06:05 | DVH ---
CHEST RADIOGRAPH Indication: pleural effusion Technique: Single frontal view of the chest was obtained COMPARISON: XY CHEST PORTABLE on DOS: 04/24/24, XY CHEST XRAY 1 VIEW on DOS: 04/23/24, XY CHEST XRAY 1 VIEW on DOS: 04/23/24 FINDINGS: Lines and Tubes: Left chest wall AICD. Lungs: Congestion Pleura: Small right pleural effusion. No pneumothorax. Cardiomediastinal contours: Unremarkable Bones: Unremarkable IMPRESSION: No significant interval change.
[2024-04-25 07:15] LABS: Anion Gap 7 (5-15); Carbon Dioxide 31 mmol/L (20-31); Potassium 4.2 mmol/L (3.5-5.1)
[2024-04-25 07:16] LABS: Calcium 9.7 mg/dL (8.7-10.4)
[2024-04-25 07:21] LABS: BUN/Creatinine Ratio 5.1 (10.0-20.0); Glucose 98 mg/dL (74-106)
[2024-04-25 07:22] LABS: Blood Urea Nitrogen 32 mg/dL (9-23); Chloride 95 mmol/L (98-107); Sodium 133 mmol/L (136-145)
--- NOTE | 2024-04-25 10:08 | DVHPN2 ---
Reviewed: Care Plan, H&P, Labs, Medications Changes from previous H/P or p: No Changes General: Per HPI Objective Vitals Vital Signs Date Time Temp Pulse Resp B/P (MAP) Pulse Ox O2 Delivery O2 Flow Rate FiO2 04/25/24 09:00 97.7 65 18 117/63 (81) 100 97.7 04/24/24 20:00 Nasal Cannula* 4 36 Intake/Output Intake and Output 04/25/24 07:00 Intake Total 1350 ml Output Total 400 ml Balance 950 ml Intake Oral 1100 ml IV Total 250 ml Output Urine Total 400 ml General Appearance: Alert, Oriented X3, Cooperative, mild distress HEENT: Atraumatic, PERRLA Lungs: Clear to auscultation, Other Cardiovascular: Normal S1, Normal S2, Other Abdomen: Normal bowel sounds, Soft, No tenderness Genitourinary: No Apparent Abnormalities Musculoskeletal: Normal sensory function, Normal motor function Neuro: Normal gait, Normal speech Skin: Dry, Intact Psych/Mental Status: Mental status NL, Mood NL Medications Current Medications Medications Dose Ordered Sig/Colleen Route Start Time Stop Time Status Last Admin Dose Admin Sodium Chloride 10 ml Q8HR IV 04/16/24 06:00 04/25/24 05:28 10 ML Docusate Sodium 100 mg BIDPRN PRN PO 04/16/24 04:30 Atorvastatin Calcium 40 mg HS PO 04/16/24 22:00 04/24/24 21:26 40 MG Sevelamer HCl 800 mg TIDWM PO 04/16/24 08:00 04/25/24 08:24 800 MG Ceftriaxone Sodium 50 ml @ 100 mls/hr DAILY@09 IV 04/16/24 06:00 04/25/24 08:24 100 MLS/HR Ondansetron HCl 4 mg Q4HP PRN IV 04/16/24 05:00 04/20/24 12:29 4 MG Acetaminophen 650 mg Q6HP PRN PO 04/16/24 05:00 Nitroglycerin 0.4 mg Q5MINP PRN SL 04/16/24 05:00 Amiodarone HCl 400 mg DAILY PO 04/17/24 10:00 04/21/24 14:04 400 MG Pantoprazole Sodium 40 mg DAILY@0600 PO 04/17/24 06:00 04/25/24 05:26 40 MG Metoprolol Succinate 25 mg DAILY PO 04/17/24 10:00 04/21/24 14:05 25 MG Phenylephrine HCl 250 ml @ 30 mls/hr Q8H20M IV 04/20/24 15:15 Digoxin 0.125 mg EOD PO 04/22/24 10:00 Vancomycin HCl 250 ml @ 250 mls/hr Q12H IV 04/24/24 22:00 04/25/24 10:59 04/24/24 21:27 250 MLS/HR Doxycycline Monohydrate 100 mg Q12HR PO 04/25/24 10:00 Laboratory Results Laboratory Tests 04/25/24 06:38 Chemistry Test 04/25/24 06:38 Calcium Level 9.7 mg/dL (8.7-10.4) Urinalysis Test 04/17/24 07:52 Urine Color Light-yellow (Yellow) Urine Clarity Clear (Clear) Urine pH 6.0 (5.0-9.0) Urine Specific [place] 1.009 (1.001-1.035) Urine Protein 1+ (Negative) H Urine Ketones Negative (Negative) Urine Blood 3+ /uL (Negative) H Urine Nitrite Negative (Negative) Urine Bilirubin Negative (Negative) Urine Urobilinogen Normal mg/dL (Negative) Urine Leukocyte Esterase 1+ /uL (Negative) Urine RBC 102 /hpf (0 - 3) Urine WBC 17 /hpf (0 - 3) Urine Squamous Epithelial Cells Few /hpf (<5) Urine Bacteria None seen /hpf (None Seen) Urine Glucose Normal mg/dL (Normal) Microbiology Microbiology Date/Time Source Procedure Growth Status 04/23/24 18:26 Pleural Fluid Gram Stain - Final Resulted 04/23/24 18:26 Pleural Fluid Body Fluid Culture - Preliminary Resulted 04/20/24 17:34 Nose MRSA Screen - Final Complete 04/16/24 10:02 Blood Blood Culture - Final NO GROWTH AFTER 5 DAYS OF INCUBATION. Complete Labs and/or images reviewed: Labs reviewed by me, Image(s) reviewed by me Assessment/Plan Assessment/Plan Covering for nurse practitioner Andrews Katz -acute hypotension secondary to atrial fibrillation -acute on chronic systolic heart failure with ejection fraction 20% -pulmonary arterial hypertension with noted elevated RSVP -coronary artery disease with previous CABG -fever ESRD with HD -anemia of chronic disease -hyperkalemia -hypervolemic hyponatremia -Acute hypoxic respiratory failure secondary to pulmonary vascular congestion -right pleural effusion Time Spent 45 minutes Condition guarded Patient is full code Per patient he was not on hospice and he came from board and care in [place] would like to be discharged back to board and care Plan discussed with: Patient My Orders Orders - BETTY BRAUN MD Procedure Category Date Status Time Renal DIET 04/24/24 Transmitted Standard(2gna,3gk,Lopho) Dinner Transfer Orders XFER 04/24/24 Transmitted 14:42 Date of Service: Apr 25, 2024 Billing Provider: BETTY BRAUN MD Common Visit Codes: [id number] INP/OBS CARE(HIGH) BETTY BRAUN MD Apr 25, 2024 10:08
--- NOTE | 2024-04-25 10:27 | DVHOP2 ---
Operative Report 04/24/24 Upgrade pacemaker into BIVAICD Dictated By: Sage Tamayo MD INDICATIONS: 1. History of dual pacemaker, RA lead is dislodged, Biotronik 2. Severe Ischemic cardiomyopathy with an ejection fraction of 20%. 3. CHF II, Non sustained VT 4. Sinus rhythm, QRS more than 130 ms, PLAN: Proceed with implantation of BIVAICD for primary prevention of sudden cardiac and resynchronization therapy PROCEDURES: 1. Right ventricular AICD lead placement MDT MRI conditional, active fixation, 2. Implantation of Left ventricular lead implantation, active fixation, MDT 3. Implantation of right atrial lead, active fixation, MDT 4. Implantation of the BIVAICD generator from MDT, MRI. 5. Fluoroscopy images and interpretation. 6. Interrogation and programming of the device. 7. Conscious sedation with fentanyl and Versed for one hour 8. Left subclavian venogram, one axillary accesses obtained and upgraded into three 9. Coronary Sinus angiogram 10.Explantation of dual chamber pacemaker, Biotronik 11.Capping both old pacing RA and RV leads. RA lead is dislodges and its tip is in IVC PROCEDURE IN DETAILS: 1. After obtaining informed consent with explanation of risks, benefits and alternatives, the patient agreed upon the planned procedure, implantation of BIV AICD for primary prevention of SCD due to ischemic cardiomyopathy. Patient understood and agreed to have [facility] device. Under a standard fashion, local and systemic anesthetic, conscious sedation with fentanyl and Versed, supervised by myself, Lt deltopectoral area was prepped and draped. Three axillary accesses were obtained, Lt deltopectoral pocket was opened. 2 Through the first access, RV AICD lead was advanced into the right interventricular septum. Sensing was 10 mv with pacing threshold 0.5 v at 0.5 ms. Impedance of 509 ohms. 3. Through the second access, Left ventricle delivery system was advanced into right heart, using 0.035 inch wire, sheet was advanced into coronary sinus, venogram was done, the best available vein was mell lateral, LV lead was advanced over 0.014 inch into that vein with active fixation. Pacing threshold a 1.5 V at 0.5 ms. LV lead is acively fixed into the vein 4. Through the third access the atrial lead was advanced into right atrium and attached in the RA actively, sensing A is 1.9 mv, pacing threshold 0.6 v at 0.4 ms, impedance 536 ohms. 5. New BIV AICD lead from [facility] was connected to the leads. The old biotronik pacemaker generator was removed. The two old pacer leads ( RA and RV) were capped. The RA lead is dislodged. The pocket was irrigated with antibiotic solution. Antibiotic powder was poured into the pocket. The skin was closed in 2 layers and at the end was stapled. CONCLUSION: 1. Status post successful implantation of BIV AICD, Device was programmed into DDDR lower rate of 60 bpm 2. There was no immediate complication. SAGE TAMAYO MD Apr 25, 2024 10:27
[2024-04-25] MEDS: DOXYCYCLINE 100 MG TAB/CAP PO SCH (10:30)
[2024-04-25 11:06] LABS: Protein, Body Fluid 3.4 g/dL (.)
[2024-04-25 13:54] LABS: Basophils # (auto) 0.1 10 ^3/uL (0-0.2); Basophils % (auto) 1.7 % (0.0-2.0); Eosinophils # (auto) 0.3 10 ^3/uL (0-0.8); Eosinophils % (auto) 7.8 % (0.0-7.0); Hematocrit 23.9 % (41.0-53.0); Hemoglobin 7.8 g/dL (13.5-17.5); Lymphocytes # (auto) 0.2 10 ^3/uL (0.4-5.4); Lymphocytes % (auto) 5.1 % (10.0-50.0); Mean Corpuscular Hemoglobin 31.5 pg (28.0-32.0); Mean Corpuscular Hgb Conc. 32.7 g/dL (32.0-36.0); Mean Corpuscular Volume 96.4 fL (80.0-100.0); Monocytes # (auto) 0.3 10 ^3/uL (0-1.3); Monocytes % (auto) 7.1 % (0.0-12.0); Neutrophils # (auto) 3.2 10 ^3/uL (1.6-8.6); Neutrophils % (auto) 78.3 % (37.0-80.0); Nucleated Red Blood Cells % 0.1 %; Platelet Count (auto) 97 10^3/uL (140-450); Red Blood Cells 2.48 10^6/uL (4.5-5.90); Red Cell Distribution Width 18.7 % (11.8-14.3); White Blood Cell 4.1 10^3/uL (4.4-10.8)
--- NOTE | 2024-04-25 15:56 | DVHPN2 ---
Progress Note Date Seen: Apr 25, 2024 Medical Necessity Reason Pt with a Central, PICC or Fol: No Subjective Patient reports: No new complaints Objective vital signs Vital Sign Date Time Temp Pulse Resp B/P (MAP) Pulse Ox O2 Delivery O2 Flow Rate FiO2 04/25/24 13:00 98.1 61 20 106/57 (73) 95 98.1 04/25/24 08:25 Nasal Cannula* 4 36 Total Intake and Output 04/24/24 04/24/24 04/25/24 14:59 22:59 06:59 Intake Total 870 ml 480 ml Output Total 0 ml 400 ml Balance 870 ml 80 ml medications Current Medications Medications Dose Ordered Sig/Colleen Route Start Time Stop Time Status Last Admin Dose Admin Sodium Chloride 10 ml Q8HR IV 04/16/24 06:00 04/25/24 05:28 10 ML Docusate Sodium 100 mg BIDPRN PRN PO 04/16/24 04:30 Atorvastatin Calcium 40 mg HS PO 04/16/24 22:00 04/24/24 21:26 40 MG Sevelamer HCl 800 mg TIDWM PO 04/16/24 08:00 04/25/24 12:33 800 MG Ceftriaxone Sodium 50 ml @ 100 mls/hr DAILY@09 IV 04/16/24 06:00 04/25/24 08:24 100 MLS/HR Ondansetron HCl 4 mg Q4HP PRN IV 04/16/24 05:00 04/20/24 12:29 4 MG Acetaminophen 650 mg Q6HP PRN PO 04/16/24 05:00 Nitroglycerin 0.4 mg Q5MINP PRN SL 04/16/24 05:00 Amiodarone HCl 400 mg DAILY PO 04/17/24 10:00 04/25/24 10:30 400 MG Pantoprazole Sodium 40 mg DAILY@0600 PO 04/17/24 06:00 04/25/24 05:26 40 MG Metoprolol Succinate 25 mg DAILY PO 04/17/24 10:00 04/21/24 14:05 25 MG Digoxin 0.125 mg EOD PO 04/22/24 10:00 Doxycycline Monohydrate 100 mg Q12HR PO 04/25/24 10:00 04/25/24 10:30 100 MG Examination: GENERAL:Normal, LUNGS:Normal, CVS:Abnormal, SKIN:Normal laboratory and microbiology Laboratory Tests 04/25/24 13:44 04/25/24 06:38 Test 04/25/24 06:38 Range/Units Serum Glucose 98 74-106 mg/dL Microbiology Date/Time Source Procedure Growth Status 04/23/24 18:26 Pleural Fluid Gram Stain - Final Resulted 04/23/24 18:26 Pleural Fluid Body Fluid Culture - Preliminary Resulted 04/20/24 17:34 Nose MRSA Screen - Final Complete 04/16/24 10:02 Blood Blood Culture - Final NO GROWTH AFTER 5 DAYS OF INCUBATION. Complete Problem List/Assessment/Plan Problem List/Assessment/Plan ESRD on hemodialysis, out of the area Acute on chronic HFrEF, ejection fraction 20%. Hypertension Anemia of chronic disease Coronary artery disease Afib RVR leading to near syncope in setting of hypotension ICD per cardiology HD today renal diet Plan discussed with: Patient My Orders My Orders Orders - JOSE GUADALUPE ELLIOTT MD Procedure Category Date Status Time Hemodialysis Orders ORDERS 04/25/24 Transmitted 04:00 Dietary Evaluation Review Comments: Follow the renal standard diet regimen, monitor PO intake to meet 75% of his needs. Expected Outcomes/Goals: maintain lab value WNL for ESRD-HD JOSE GUADALUPE ELLIOTT MD Apr 25, 2024 15:56
--- NOTE | 2024-04-25 16:52 | DVHPN2 ---
Progress Note - Dictate Date Seen: Apr 25, 2024 Medical Necessity Reason Pt with a Central, PICC or Fol: No Subjective s/o ICD implantation. Dressing CDI. vital signs Vital Sign Date Time Temp Pulse Resp B/P (MAP) Pulse Ox O2 Delivery O2 Flow Rate FiO2 04/25/24 13:00 98.1 61 20 106/57 (73) 95 98.1 04/25/24 08:25 Nasal Cannula* 4 36 Total Intake and Output 04/24/24 04/24/24 04/25/24 15:00 23:00 07:00 Intake Total 870 ml 480 ml Output Total 0 ml 400 ml Balance 870 ml 80 ml medications Current Medications Medications Dose Ordered Sig/Colleen Route Start Time Stop Time Status Last Admin Dose Admin Sodium Chloride 10 ml Q8HR IV 04/16/24 06:00 04/25/24 05:28 10 ML Docusate Sodium 100 mg BIDPRN PRN PO 04/16/24 04:30 Atorvastatin Calcium 40 mg HS PO 04/16/24 22:00 04/24/24 21:26 40 MG Sevelamer HCl 800 mg TIDWM PO 04/16/24 08:00 04/25/24 12:33 800 MG Ceftriaxone Sodium 50 ml @ 100 mls/hr DAILY@09 IV 04/16/24 06:00 04/25/24 08:24 100 MLS/HR Ondansetron HCl 4 mg Q4HP PRN IV 04/16/24 05:00 04/20/24 12:29 4 MG Acetaminophen 650 mg Q6HP PRN PO 04/16/24 05:00 Nitroglycerin 0.4 mg Q5MINP PRN SL 04/16/24 05:00 Amiodarone HCl 400 mg DAILY PO 04/17/24 10:00 04/25/24 10:30 400 MG Pantoprazole Sodium 40 mg DAILY@0600 PO 04/17/24 06:00 04/25/24 05:26 40 MG Metoprolol Succinate 25 mg DAILY PO 04/17/24 10:00 04/21/24 14:05 25 MG Digoxin 0.125 mg EOD PO 04/22/24 10:00 Doxycycline Monohydrate 100 mg Q12HR PO 04/25/24 10:00 04/25/24 10:30 100 MG objective Pt seen in SDU with plans for PM upgrade to ICD tomorrow with Dr Tamayo. Chart reviewed laboratory and microbiology Laboratory Tests 04/25/24 13:44 04/25/24 06:38 Test 04/25/24 06:38 Range/Units Serum Glucose 98 74-106 mg/dL Assessment/Plan This is a 64-year old male who initially presented (04/15/2024) with generalized weakness. Records indicate the patient had reported associated shortness of breath and dizziness which he was found to be hypotensive and subsequently initiated briefly on vasopressor therapy for hemodynamic support (later improved). Records further indicate patient was reportedly found in atrial fibrillation with rapid ventricular response which he was subsequently administered Amiodarone bolus resulting in successful chemical cardioversion. It is of note patient has an underlying history of coronary artery disease with reported (as per patient) last cardiac catheterization approximately 3-4 years ago in [place], [place] resulting in coronary revascularization/stenting which he remains on Plavix 75mg daily. As such, he carries an underlying diagnosis of dilated/ischemic cardiomyopathy with last known LVEF of 20% as per Echocardiogram (04/08/2024) which he remains on GDMT for systolic heart failure as managed by his primary Clinical Cytopathologist Dr. Manuel in [place]. It is of note he is status post Biotronic dual-chamber permanent pacemaker implantation (2014) which records indicate patient furthermore has a previous history of tachyarrhythmias including paroxysmal atrial fibrillation and non-sustained ventricular tachycardia. EKG at present reveals a QRS > 120ms. HS troponin trend is found unremarkable (29 - 31 - 46). Electrolytes (potassium/magnesium) are found to be within normal range. As the patient has an underlying history of dilated/ischemic cardiomyopathy and tachyarrhythmias (NSVT) with last known LVEF of 20% despite GDMT for systolic heart failure and previous coronary revascularization, Electrophysiology services have now been involved to evaluate the patient for potential AICD upgrade. Past medical history includes coronary artery disease status post previous PCI (multiple reported), systolic heart failure, dilated/ischemic cardiomyopathy, ESRD on hemodialysis status post RUE AVF, hyperlipidemia, pulmonary hypertension, paroxysmal atrial fibrillation on chronic anticoagulation, non- sustained ventricular tachycardia, thrombocytopenia, status post dual chamber PPM implantation with Biotronic (2014), cardiac ablations (unknown type), status post right subclavian graft Echocardiogram: (04/08/2024) Severely dilated left ventricle. Severely reduced left ventricular systolic function estimated ejection fraction 20%. There is global wall akinesia. There is a grade 1 diastolic dysfunction. Severely dilated right ventricle. Severely reduced right ventricular systolic function. Severely elevated right ventricular systolic pressure 75 mm of mercury. Severely dilated right and left atra. There is [id number] mitral valve regurgitation. There is [id number] tricuspid regurgitation. The aortic valve is mildly thickened and sclerotic, there is a trace of aortic valve regurgitation The pulmonary is grossly normal. No pericardial effusion. Assessment: Acute on chronic systolic heart failure (decompensated) Dilated/Ischemic cardiomyopathy, LVEF of 20% per Echocardiogram (04/08/2024) Coronary artery disease, status post previous coronary revascularization (PCI) Paroxysmal atrial fibrillation, on chronic anticoagulation Presence of Biotronic dual-chamber PPM (2014) QRS duration > 120 milliseconds Pulmonary hypertension ESRD on hemodialysis Pancytopenia Electrophysiology Suggestions for Management: As EKG at present reveals a QRS > 120ms in a patient with an underlying history of dilated/ischemic cardiomyopathy, and tachyarrhythmias (NSVT) with last known LVEF of 20% per Echocardiogram (04/08/2024) despite GDMT for systolic heart failure and previous coronary revascularization, patient benefits from undergoing ICD upgrade with addition of LV lead for primary prevention against SCD and cardiac resynchronization therapy. Benefits, risks, and alternatives were discussed at length with the patient which he is agreeable to the plan of care. Pt is s/p ICD implantation 04/24/[address] Sage Tamayo. - Dressing to left chest CDI without evidence of hematoma. To be kept dry and in place until outpatient office appt. - CXR showed no evidence of pneumothorax - Doxycycline 100mg PO BID x 7 days on discharge - Hold blood thinners x 1 week - Sling to left upper extremity x 1 week until follow up in office for staple removal. Pt to contact office for appt on discharge. Remains of cardiac management as per primary Cardiology Team. - Pt cleared for discharge from EP perspective. Proceed with close observation for overt signs of fluid overload Proceed with strict intakes, outputs, and daily weights Proceed with close rate and rhythm surveillance Proceed with close hemodynamic surveillance Proceed with optimized blood pressure control Transfuse to sustain HGB level above 7.0 Sustain Magnesium level greater than 2.0 Sustain Potassium level greater than 4.0 Follow up renal function and electrolytes Management in telemetry Follow up Nephrology recommendations Follow up Primary Cardiology recommendations Will proceed to follow from a cardiac perspective Further recommendations per clinical progression All available diagnostic labs, EKG's, and images were personally reviewed Patient's status, findings, and plan of care was reviewed and discussed with supervising physician Dr. Tamayo, who is in agreement with current plan of care. Plan of care discussed with and agreed upon by patient / primary RN Prognosis: Guarded Thank you for allowing me to participate in the care of this patient. Further recommendations based on patients clinical course and progression, primary attending, and other consultants. Will continue to follow with primary attending. If you have any questions or concerns, please do not hesitate to contact me. A total of 55 minutes was spent reviewing the patient record, examining the patient, making a diagnostic and therapeutic plan, discussing this plan with medical personnel, following up on diagnostic studies and following the patient for clinical stability excluding any and all procedures. At least 50% of this time was spent in direct, [id number] contact. Dietary Evaluation Review Comments: Follow the renal standard diet regimen, monitor PO intake to meet 75% of his needs. Expected Outcomes/Goals: maintain lab value WNL for ESRD-HD Plan discussed with: Patient, Other (RN) Provider Statement: I have reviewed the case with my supervising physician. We have agreed with the plan of care. JIM ONEILL Apr 25, 2024 16:52
[2024-04-26] VITALS (9 sets, daily range): BP systolic 102–119; BP diastolic 51–62; PULSE 60–75; RESP 18–20; TEMP 97.6–98.3; O2SAT 96–100
[2024-04-26] MEDS: ACETAMINOPHEN 325 MG TAB PO PRN (01:09)
--- NOTE | 2024-04-26 06:02 | DVH ---
CHEST RADIOGRAPH Indication: pleural effusion Technique: Single frontal view of the chest was obtained COMPARISON: XY CHEST PORTABLE on DOS: 04/25/24, XY CHEST PORTABLE on DOS: 04/24/24, XY CHEST XRAY 1 V IEW on DOS: 04/23/24, XY CHEST PORTABLE on DOS: 04/25/24 FINDINGS: Lines and Tubes: Left chest wall AICD. Subclavian and axillary right vascular stent in-situ. Lungs: Congestion Pleura: Small right pleural effusion. No pneumothorax. Cardiomediastinal contours: Unremarkable Bones: Unremarkable IMPRESSION: No significant interval change.
--- NOTE | 2024-04-26 09:24 | DVHPN2 ---
Reviewed: Care Plan, H&P, Labs, Medications Changes from previous H/P or p: No Changes General: Per HPI Objective Vitals Vital Signs Date Time Temp Pulse Resp B/P (MAP) Pulse Ox O2 Delivery O2 Flow Rate FiO2 04/26/24 05:00 97.7 64 19 118/61 (80) 99 97.7 04/25/24 20:00 Nasal Cannula* 4 36 Intake/Output Intake and Output 04/26/24 07:00 Intake Total 2110 ml Output Total 400 ml Balance 1710 ml Intake Oral 2060 ml IV Total 50 ml Output Urine Total 400 ml General Appearance: Alert, Oriented X3, Cooperative, mild distress HEENT: Atraumatic, PERRLA Lungs: Clear to auscultation, Other Cardiovascular: Normal S1, Normal S2, Other Abdomen: Normal bowel sounds, Soft, No tenderness Genitourinary: No Apparent Abnormalities Musculoskeletal: Normal sensory function, Normal motor function Neuro: Normal gait, Normal speech Skin: Dry, Intact Psych/Mental Status: Mental status NL, Mood NL Medications Current Medications Medications Dose Ordered Sig/Colleen Route Start Time Stop Time Status Last Admin Dose Admin Sodium Chloride 10 ml Q8HR IV 04/16/24 06:00 04/26/24 06:09 10 ML Docusate Sodium 100 mg BIDPRN PRN PO 04/16/24 04:30 Atorvastatin Calcium 40 mg HS PO 04/16/24 22:00 04/25/24 21:36 40 MG Sevelamer HCl 800 mg TIDWM PO 04/16/24 08:00 04/26/24 08:33 800 MG Ceftriaxone Sodium 50 ml @ 100 mls/hr DAILY@09 IV 04/16/24 06:00 04/26/24 08:34 100 MLS/HR Ondansetron HCl 4 mg Q4HP PRN IV 04/16/24 05:00 04/20/24 12:29 4 MG Acetaminophen 650 mg Q6HP PRN PO 04/16/24 05:00 04/26/24 01:09 650 MG Nitroglycerin 0.4 mg Q5MINP PRN SL 04/16/24 05:00 Amiodarone HCl 400 mg DAILY PO 04/17/24 10:00 04/25/24 10:30 400 MG Pantoprazole Sodium 40 mg DAILY@0600 PO 04/17/24 06:00 04/26/24 06:05 40 MG Metoprolol Succinate 25 mg DAILY PO 04/17/24 10:00 04/21/24 14:05 25 MG Digoxin 0.125 mg EOD PO 04/22/24 10:00 Doxycycline Monohydrate 100 mg Q12HR PO 04/25/24 10:00 04/25/24 21:36 100 MG Laboratory Results Laboratory Tests 04/25/24 06:38 04/25/24 13:44 Urinalysis Test 04/17/24 07:52 Urine Color Light-yellow (Yellow) Urine Clarity Clear (Clear) Urine pH 6.0 (5.0-9.0) Urine Specific [place] 1.009 (1.001-1.035) Urine Protein 1+ (Negative) H Urine Ketones Negative (Negative) Urine Blood 3+ /uL (Negative) H Urine Nitrite Negative (Negative) Urine Bilirubin Negative (Negative) Urine Urobilinogen Normal mg/dL (Negative) Urine Leukocyte Esterase 1+ /uL (Negative) Urine RBC 102 /hpf (0 - 3) Urine WBC 17 /hpf (0 - 3) Urine Squamous Epithelial Cells Few /hpf (<5) Urine Bacteria None seen /hpf (None Seen) Urine Glucose Normal mg/dL (Normal) Microbiology Microbiology Date/Time Source Procedure Growth Status 04/23/24 18:26 Pleural Fluid Gram Stain - Final Resulted 04/23/24 18:26 Pleural Fluid Body Fluid Culture - Preliminary Resulted 04/20/24 17:34 Nose MRSA Screen - Final Complete 04/16/24 10:02 Blood Blood Culture - Final NO GROWTH AFTER 5 DAYS OF INCUBATION. Complete Labs and/or images reviewed: Labs reviewed by me, Image(s) reviewed by me Assessment/Plan Assessment/Plan Covering for nurse practitioner Andrews Katz -acute hypotension secondary to atrial fibrillation -acute on chronic systolic heart failure with ejection fraction 20% -pulmonary arterial hypertension with noted elevated RSVP -coronary artery disease with previous CABG -fever ESRD with HD -anemia of chronic disease -hyperkalemia -hypervolemic hyponatremia -Acute hypoxic respiratory failure secondary to pulmonary vascular congestion -right pleural effusion Time Spent 48 minutes Condition guarded Patient is full code Per patient he was not on hospice and he came from [facility] and care in [place] would like to be discharged back to [facility] and care Plan discussed with: Patient Date of Service: Apr 26, 2024 Billing Provider: BETTY BRAUN MD Common Visit Codes: [id number] INP/OBS CARE(HIGH) BETTY BRAUN MD Apr 26, 2024 09:24
--- NOTE | 2024-04-26 13:41 | DVHPN2 ---
Progress Note Date Seen: Apr 26, 2024 Medical Necessity Reason Pt with a Central, PICC or Fol: No Subjective Patient reports: No new complaints Review of Systems: HEENT:Normal Objective vital signs Vital Sign Date Time Temp Pulse Resp B/P (MAP) Pulse Ox O2 Delivery O2 Flow Rate FiO2 04/26/24 09:55 65 04/26/24 09:54 117/51 04/26/24 09:00 98.3 18 100 98.3 04/26/24 08:30 Nasal Cannula* 4 36 Total Intake and Output 04/25/24 04/25/24 04/26/24 14:59 22:59 06:59 Intake Total 50 ml 560 ml 1500 ml Output Total 200 ml 200 ml Balance 50 ml 360 ml 1300 ml medications Current Medications Medications Dose Ordered Sig/Colleen Route Start Time Stop Time Status Last Admin Dose Admin Sodium Chloride 10 ml Q8HR IV 04/16/24 06:00 04/26/24 06:09 10 ML Docusate Sodium 100 mg BIDPRN PRN PO 04/16/24 04:30 Atorvastatin Calcium 40 mg HS PO 04/16/24 22:00 04/25/24 21:36 40 MG Sevelamer HCl 800 mg TIDWM PO 04/16/24 08:00 04/26/24 12:13 800 MG Ceftriaxone Sodium 50 ml @ 100 mls/hr DAILY@09 IV 04/16/24 06:00 04/26/24 08:34 100 MLS/HR Ondansetron HCl 4 mg Q4HP PRN IV 04/16/24 05:00 04/20/24 12:29 4 MG Acetaminophen 650 mg Q6HP PRN PO 04/16/24 05:00 04/26/24 01:09 650 MG Nitroglycerin 0.4 mg Q5MINP PRN SL 04/16/24 05:00 Amiodarone HCl 400 mg DAILY PO 04/17/24 10:00 04/26/24 09:53 400 MG Pantoprazole Sodium 40 mg DAILY@0600 PO 04/17/24 06:00 04/26/24 06:05 40 MG Metoprolol Succinate 25 mg DAILY PO 04/17/24 10:00 04/21/24 14:05 25 MG Digoxin 0.125 mg EOD PO 04/22/24 10:00 04/26/24 09:55 0.125 MG Doxycycline Monohydrate 100 mg Q12HR PO 04/25/24 10:00 04/26/24 09:53 100 MG Examination: LUNGS:Normal, CVS:Abnormal, ABDOMEN:Normal laboratory and microbiology Laboratory Tests 04/25/24 13:44 04/25/24 06:38 Test 04/25/24 06:38 Range/Units Serum Glucose 98 74-106 mg/dL Microbiology Date/Time Source Procedure Growth Status 04/23/24 18:26 Pleural Fluid Gram Stain - Final Resulted 04/23/24 18:26 Pleural Fluid Body Fluid Culture - Preliminary Resulted 04/20/24 17:34 Nose MRSA Screen - Final Complete 04/16/24 10:02 Blood Blood Culture - Final NO GROWTH AFTER 5 DAYS OF INCUBATION. Complete Problem List/Assessment/Plan Problem List/Assessment/Plan ESRD on hemodialysis, out of the area Acute on chronic HFrEF, ejection fraction 20%. Hypertension Anemia of chronic disease Coronary artery disease Afib RVR leading to near syncope in setting of hypotension ICD per cardiology HD saturday renal diet fluid restriction Plan discussed with: Patient Dietary Evaluation Review Comments: Follow the renal standard diet regimen, monitor PO intake to meet 75% of his needs. Expected Outcomes/Goals: maintain lab value WNL for ESRD-HD JOSE GUADALUPE ELLIOTT MD Apr 26, 2024 13:41
[2024-04-27] VITALS (8 sets, daily range): BP systolic 94–128; BP diastolic 51–64; PULSE 54–72; RESP 16–20; TEMP 97.2–98.6; O2SAT 91–100
[2024-04-27 07:56] LABS: Eosinophils # (auto) 0.3 10 ^3/uL (0-0.8); Hematocrit 22.6 % (41.0-53.0); Hemoglobin 7.5 g/dL (13.5-17.5); Lymphocytes # (auto) 0.3 10 ^3/uL (0.4-5.4); Monocytes # (auto) 0.3 10 ^3/uL (0-1.3); Neutrophils # (auto) 2.5 10 ^3/uL (1.6-8.6); Nucleated Red Blood Cells % 0.1 %; Red Blood Cells 2.36 10^6/uL (4.5-5.90); White Blood Cell 3.5 10^3/uL (4.4-10.8)
[2024-04-27 07:58] LABS: Basophils # (auto) 0 10 ^3/uL (0-0.2); Basophils % (auto) 1.3 % (0.0-2.0); Mean Corpuscular Hemoglobin 31.8 pg (28.0-32.0); Mean Corpuscular Hgb Conc. 33.1 g/dL (32.0-36.0); Mean Corpuscular Volume 95.9 fL (80.0-100.0); Monocytes % (auto) 9.5 % (0.0-12.0); Neutrophils % (auto) 72.2 % (37.0-80.0); Platelet Count (auto) 89 10^3/uL (140-450); Red Cell Distribution Width 18.3 % (11.8-14.3)
[2024-04-27 08:00] LABS: Anion Gap 7 (5-15); Carbon Dioxide 30 mmol/L (20-31); Chloride 99 mmol/L (98-107); Potassium 3.8 mmol/L (3.5-5.1)
[2024-04-27 08:01] LABS: Calcium 9.7 mg/dL (8.7-10.4)
[2024-04-27 08:06] LABS: BUN/Creatinine Ratio 5.2 (10.0-20.0); Glucose 98 mg/dL (74-106)
[2024-04-27 08:14] LABS: Blood Urea Nitrogen 30 mg/dL (9-23); Sodium 136 mmol/L (136-145)
--- NOTE | 2024-04-27 11:50 | DVHPN2 ---
Reviewed: Care Plan, H&P, Labs, Medications Changes from previous H/P or p: No Changes General: Per HPI Objective Vitals Vital Signs Date Time Temp Pulse Resp B/P (MAP) Pulse Ox O2 Delivery O2 Flow Rate FiO2 04/27/24 09:20 60 122/57 04/27/24 09:00 97.6 16 100 97.6 04/27/24 08:00 Nasal Cannula* 3 32 Intake/Output Intake and Output 04/27/24 07:00 Intake Total 1370 ml Output Total 1600 ml Balance -230 ml Intake Oral 1320 ml IV Total 50 ml Output Urine Total 1600 ml General Appearance: Alert, Oriented X3, Cooperative, mild distress HEENT: Atraumatic, PERRLA Lungs: Clear to auscultation, Other Cardiovascular: Normal S1, Normal S2, Other Abdomen: Normal bowel sounds, Soft, No tenderness Genitourinary: No Apparent Abnormalities Musculoskeletal: Normal sensory function, Normal motor function Neuro: Normal gait, Normal speech Skin: Dry, Intact Psych/Mental Status: Mental status NL, Mood NL Medications Current Medications Medications Dose Ordered Sig/Colleen Route Start Time Stop Time Status Last Admin Dose Admin Sodium Chloride 10 ml Q8HR IV 04/16/24 06:00 04/27/24 05:39 10 ML Docusate Sodium 100 mg BIDPRN PRN PO 04/16/24 04:30 Atorvastatin Calcium 40 mg HS PO 04/16/24 22:00 04/26/24 21:04 40 MG Sevelamer HCl 800 mg TIDWM PO 04/16/24 08:00 04/27/24 09:20 800 MG Ondansetron HCl 4 mg Q4HP PRN IV 04/16/24 05:00 04/20/24 12:29 4 MG Acetaminophen 650 mg Q6HP PRN PO 04/16/24 05:00 04/26/24 01:09 650 MG Nitroglycerin 0.4 mg Q5MINP PRN SL 04/16/24 05:00 Amiodarone HCl 400 mg DAILY PO 04/17/24 10:00 04/27/24 09:20 400 MG Pantoprazole Sodium 40 mg DAILY@0600 PO 04/17/24 06:00 04/27/24 05:39 40 MG Metoprolol Succinate 25 mg DAILY PO 04/17/24 10:00 04/27/24 09:20 25 MG Digoxin 0.125 mg EOD PO 04/22/24 10:00 04/26/24 09:55 0.125 MG Doxycycline Monohydrate 100 mg Q12HR PO 04/25/24 10:00 04/27/24 09:20 100 MG Laboratory Results Laboratory Tests 04/27/24 07:14 Chemistry Test 04/27/24 07:14 Calcium Level 9.7 mg/dL (8.7-10.4) Urinalysis Test 04/17/24 07:52 Urine Color Light-yellow (Yellow) Urine Clarity Clear (Clear) Urine pH 6.0 (5.0-9.0) Urine Specific [place] 1.009 (1.001-1.035) Urine Protein 1+ (Negative) H Urine Ketones Negative (Negative) Urine Blood 3+ /uL (Negative) H Urine Nitrite Negative (Negative) Urine Bilirubin Negative (Negative) Urine Urobilinogen Normal mg/dL (Negative) Urine Leukocyte Esterase 1+ /uL (Negative) Urine RBC 102 /hpf (0 - 3) Urine WBC 17 /hpf (0 - 3) Urine Squamous Epithelial Cells Few /hpf (<5) Urine Bacteria None seen /hpf (None Seen) Urine Glucose Normal mg/dL (Normal) Microbiology Microbiology Date/Time Source Procedure Growth Status 04/23/24 18:26 Pleural Fluid Gram Stain - Final Resulted 04/23/24 18:26 Pleural Fluid Body Fluid Culture - Preliminary Resulted 04/20/24 17:34 Nose MRSA Screen - Final Complete 04/16/24 10:02 Blood Blood Culture - Final NO GROWTH AFTER 5 DAYS OF INCUBATION. Complete Labs and/or images reviewed: Labs reviewed by me, Image(s) reviewed by me Assessment/Plan Assessment/Plan Covering for nurse practitioner Andrews Katz -acute hypotension secondary to atrial fibrillation -acute on chronic systolic heart failure with ejection fraction 20% -pulmonary arterial hypertension with noted elevated RSVP -coronary artery disease with previous CABG -fever ESRD with HD -anemia of chronic disease -hyperkalemia -hypervolemic hyponatremia -Acute hypoxic respiratory failure secondary to pulmonary vascular congestion -right pleural effusion Time Spent 46 minutes Per patient he was not on hospice and he came from [facility] and care in [place] would like to be discharged back to [facility] and care Plan discussed with: Patient Date of Service: Apr 27, 2024 Billing Provider: BETTY BRAUN MD Common Visit Codes: [id number] INP/OBS CARE(HIGH) BETTY BRAUN MD Apr 27, 2024 11:50
--- NOTE | 2024-04-27 12:39 | DVHPN2 ---
Progress Note Date Seen: Apr 27, 2024 Medical Necessity Reason Pt with a Central, PICC or Fol: No Subjective Patient reports: No new complaints Other Systems: Patient seen and examined by myself on follow-up today Objective vital signs Vital Sign Date Time Temp Pulse Resp B/P (MAP) Pulse Ox O2 Delivery O2 Flow Rate FiO2 04/27/24 09:20 60 122/57 04/27/24 09:00 97.6 16 100 97.6 04/27/24 08:00 Nasal Cannula* 3 32 Total Intake and Output 04/26/24 04/26/24 04/27/24 14:59 22:59 06:59 Intake Total 50 ml 920 ml 400 ml Output Total 600 ml 1000 ml Balance 50 ml 320 ml -600 ml medications Current Medications Medications Dose Ordered Sig/Colleen Route Start Time Stop Time Status Last Admin Dose Admin Sodium Chloride 10 ml Q8HR IV 04/16/24 06:00 04/27/24 05:39 10 ML Docusate Sodium 100 mg BIDPRN PRN PO 04/16/24 04:30 Atorvastatin Calcium 40 mg HS PO 04/16/24 22:00 04/26/24 21:04 40 MG Sevelamer HCl 800 mg TIDWM PO 04/16/24 08:00 04/27/24 12:15 800 MG Ondansetron HCl 4 mg Q4HP PRN IV 04/16/24 05:00 04/20/24 12:29 4 MG Acetaminophen 650 mg Q6HP PRN PO 04/16/24 05:00 04/26/24 01:09 650 MG Nitroglycerin 0.4 mg Q5MINP PRN SL 04/16/24 05:00 Amiodarone HCl 400 mg DAILY PO 04/17/24 10:00 04/27/24 09:20 400 MG Pantoprazole Sodium 40 mg DAILY@0600 PO 04/17/24 06:00 04/27/24 05:39 40 MG Metoprolol Succinate 25 mg DAILY PO 04/17/24 10:00 04/27/24 09:20 25 MG Digoxin 0.125 mg EOD PO 04/22/24 10:00 04/26/24 09:55 0.125 MG Doxycycline Monohydrate 100 mg Q12HR PO 04/25/24 10:00 04/27/24 09:20 100 MG Examination: LUNGS:Normal, CVS:Normal, MSK:Normal laboratory and microbiology Laboratory Tests 04/27/24 07:14 Test 04/27/24 07:14 Range/Units Serum Glucose 98 74-106 mg/dL Microbiology Date/Time Source Procedure Growth Status 04/23/24 18:26 Pleural Fluid Gram Stain - Final Resulted 04/23/24 18:26 Pleural Fluid Body Fluid Culture - Preliminary Resulted 04/20/24 17:34 Nose MRSA Screen - Final Complete 04/16/24 10:02 Blood Blood Culture - Final NO GROWTH AFTER 5 DAYS OF INCUBATION. Complete Problem List/Assessment/Plan Problem List/Assessment/Plan ESRD on hemodialysis, out of the area Acute on chronic HFrEF, ejection fraction 20%. Hypertension Anemia of chronic disease Coronary artery disease Afib RVR leading to near syncope in setting of hypotension Status post ICD placement Recommendations Hemodialysis tomorrow Epogen 04141 IV post hemodialysis Resume home medication Renal diet We will continue to follow up Plan discussed with: Patient My Orders My Orders Orders - BRITTANY AIKEN MD Procedure Category Date Status Time Hemodialysis Orders ORDERS 04/28/24 Transmitted 07:00 Dialysis Nursing LETICIA 04/28/24 In Process Message 07:00 Heparin Sodium PHA 04/28/24 In Process (Porcine) 07:00 Sodium Chloride 0.9% PHA 04/28/24 In Process 07:00 Document Fluid Input LETICIA 04/28/24 In Process And Outpu 07:00 Dietary Evaluation Review Comments: Follow the renal standard diet regimen, monitor PO intake to meet 75% of his needs. Expected Outcomes/Goals: maintain lab value WNL for ESRD-HD BRITTANY AIKEN MD Apr 27, 2024 12:39
[2024-04-28] VITALS (8 sets, daily range): BP systolic 102–130; BP diastolic 50–69; PULSE 60–65; RESP 17–19; TEMP 97.3–98; O2SAT 94–100
[2024-04-28] MEDS: SODIUM CHL 0.9% 1000 ML BAG XX ONE (07:00)
--- NOTE | 2024-04-28 09:43 | DVHPN2 ---
Progress Note - Dictate Date Seen: Apr 27, 2024 Medical Necessity Reason Pt with a Central, PICC or Fol: No Subjective Patient seen and examined at bedside. Remains on supplemental oxygen Overnight events reviewed. vital signs Vital Sign Date Time Temp Pulse Resp B/P (MAP) Pulse Ox O2 Delivery O2 Flow Rate FiO2 04/28/24 09:00 97.8 62 17 120/59 (79) 100 97.8 04/28/24 08:00 Nasal Cannula* 4 36 Total Intake and Output 04/27/24 04/27/24 04/28/24 15:00 23:00 07:00 Intake Total 540 ml 400 ml Output Total 250 ml 250 ml Balance 290 ml 150 ml medications Current Medications Medications Dose Ordered Sig/Colleen Route Start Time Stop Time Status Last Admin Dose Admin Sodium Chloride 10 ml Q8HR IV 04/16/24 06:00 04/28/24 05:23 10 ML Docusate Sodium 100 mg BIDPRN PRN PO 04/16/24 04:30 Atorvastatin Calcium 40 mg HS PO 04/16/24 22:00 04/27/24 21:42 40 MG Sevelamer HCl 800 mg TIDWM PO 04/16/24 08:00 04/28/24 07:56 800 MG Ondansetron HCl 4 mg Q4HP PRN IV 04/16/24 05:00 04/20/24 12:29 4 MG Acetaminophen 650 mg Q6HP PRN PO 04/16/24 05:00 04/26/24 01:09 650 MG Nitroglycerin 0.4 mg Q5MINP PRN SL 04/16/24 05:00 Amiodarone HCl 400 mg DAILY PO 04/17/24 10:00 04/27/24 09:20 400 MG Pantoprazole Sodium 40 mg DAILY@0600 PO 04/17/24 06:00 04/28/24 05:23 40 MG Metoprolol Succinate 25 mg DAILY PO 04/17/24 10:00 04/27/24 09:20 25 MG Digoxin 0.125 mg EOD PO 04/22/24 10:00 04/26/24 09:55 0.125 MG Doxycycline Monohydrate 100 mg Q12HR PO 04/25/24 10:00 04/27/24 21:42 100 MG objective Gen.: Patient lying in bed in no apparent distress. On supplemental oxygen. Head: Normocephalic, atraumatic. Eyes: EOMI/PERRLA. Ears: Normal hearing. Normal anatomy. Neck/trachea: Trachea midline, supple. Nose: Normal external anatomy. Mouth: Moist mucous membranes. Chest: Decreased air entry bilaterally. No wheezing or rhonchi. Cardiovascular: Positive S1, positive S2. Regular rate and rhythm. Abdomen: Positive bowel sounds in all 4 quadrants. Soft, non-tender, non- distended. : Deferred. Rectal: Deferred. Skin: Warm, dry. Intact. Extremities: 2+ radial pulses bilaterally. No lower extremity edema. Neuro: Awake, alert, oriented x3. No gross motor or sensory deficits. Cranial nerves II through XII intact. Gait not assessed. laboratory and microbiology Laboratory Tests 04/27/24 07:14 Test 04/27/24 07:14 Range/Units Serum Glucose 98 74-106 mg/dL Assessment/Plan Impression: Acute hypoxic respiratory failure Pleural effusion Atelectasis End-stage renal disease on hemodialysis CHF Atrial fibrillation with RVR Anemia of chronic disease Events: Supplemental oxygen on 2 liters/minute via nasal cannula Taper O2 as tolerated. Head of bed elevation Aspiration precautions CXR on 04/26/24 demonstrates small right-sided pleural effusion and pulmonary congestion. No pneumothorax. Continue antibiotics Incentive spirometry On amiodarone/metoprolol. Monitor hemodynamics Pain control Avoid oversedation Monitor renal function Monitor electrolytes. Supplement as necessary. Hemodialysis per Nephrology Fluid restriction. Labs and imaging reviewed. Rest of plan as noted below. Plan: Chest x-ray imaging report reviewed. Left chest wall pacemaker. No acute opacities. Moderate right pleural effusion. No pneumothorax. Supplemental oxygen Keep O2 saturation above 92%. Continue antibiotics Monitor renal function. Monitor electrolytes Supplement as necessary. Monitor ins and outs. Nephrology recommendations appreciated. Hemodialysis per Nephrology. On amiodarone On metoprolol DVT prophylaxis-heparin subcutaneously Prophylaxis with Protonix Prognosis: Poor given multiple comorbidities. Rest of plan per hospitalist and other consultants. Thank you JI Katz for allowing me to participate in this patient's care. Further recommendations will depend on patient's clinical course. Please do not hesitate to contact me if you have any questions or concerns. This medical document was created using an electronic medical record system with [employer] system. Although this document has been carefully reviewed, there may still be some phonetic and typographical errors. These areas are purely typographical due to imperfections of the software programs, and do not reflect any compromise in the patient's medical care. Dietary Evaluation Review Comments: Follow the renal standard diet regimen, monitor PO intake to meet 75% of his needs. Expected Outcomes/Goals: maintain lab value WNL for ESRD-HD Plan discussed with: Patient, Other (MITCHEL Blank) DEVAUGHN LEONG MD Apr 28, 2024 09:43
--- NOTE | 2024-04-28 10:59 | DVHPN2 ---
Progress Note Date Seen: Apr 28, 2024 Medical Necessity Reason Pt with a Central, PICC or Fol: No Subjective Patient reports: No new complaints Other Systems: Patient seen and examined by myself today in follow-up Patient examined on hemodialysis, blood pressure stable Objective vital signs Vital Sign Date Time Temp Pulse Resp B/P (MAP) Pulse Ox O2 Delivery O2 Flow Rate FiO2 04/28/24 09:00 97.8 62 17 120/59 (79) 100 97.8 04/28/24 08:00 Nasal Cannula* 4 36 Total Intake and Output 04/27/24 04/27/24 04/28/24 15:00 23:00 07:00 Intake Total 540 ml 400 ml Output Total 250 ml 250 ml Balance 290 ml 150 ml medications Current Medications Medications Dose Ordered Sig/Colleen Route Start Time Stop Time Status Last Admin Dose Admin Sodium Chloride 10 ml Q8HR IV 04/16/24 06:00 04/28/24 05:23 10 ML Docusate Sodium 100 mg BIDPRN PRN PO 04/16/24 04:30 Atorvastatin Calcium 40 mg HS PO 04/16/24 22:00 04/27/24 21:42 40 MG Sevelamer HCl 800 mg TIDWM PO 04/16/24 08:00 04/28/24 07:56 800 MG Ondansetron HCl 4 mg Q4HP PRN IV 04/16/24 05:00 04/20/24 12:29 4 MG Acetaminophen 650 mg Q6HP PRN PO 04/16/24 05:00 04/26/24 01:09 650 MG Nitroglycerin 0.4 mg Q5MINP PRN SL 04/16/24 05:00 Amiodarone HCl 400 mg DAILY PO 04/17/24 10:00 04/27/24 09:20 400 MG Pantoprazole Sodium 40 mg DAILY@0600 PO 04/17/24 06:00 04/28/24 05:23 40 MG Metoprolol Succinate 25 mg DAILY PO 04/17/24 10:00 04/27/24 09:20 25 MG Digoxin 0.125 mg EOD PO 04/22/24 10:00 04/26/24 09:55 0.125 MG Doxycycline Monohydrate 100 mg Q12HR PO 04/25/24 10:00 04/28/24 10:14 100 MG Examination: LUNGS:Normal, CVS:Normal, MSK:Normal laboratory and microbiology Laboratory Tests 04/27/24 07:14 Test 04/27/24 07:14 Range/Units Serum Glucose 98 74-106 mg/dL Microbiology Date/Time Source Procedure Growth Status 04/23/24 18:26 Pleural Fluid Gram Stain - Final Resulted 04/23/24 18:26 Pleural Fluid Body Fluid Culture - Preliminary Resulted 04/20/24 17:34 Nose MRSA Screen - Final Complete 04/16/24 10:02 Blood Blood Culture - Final NO GROWTH AFTER 5 DAYS OF INCUBATION. Complete Problem List/Assessment/Plan Problem List/Assessment/Plan ESRD on hemodialysis, out of the area Acute on chronic HFrEF, ejection fraction 20%. Hypertension Anemia of chronic disease Coronary artery disease Afib RVR leading to near syncope in setting of hypotension Status post ICD placement Recommendations Continue with UF to 1-2 L as tolerated Epogen 56639 IV post hemodialysis Resume home medication Renal diet We will continue to follow up Plan discussed with: Patient Dietary Evaluation Review Comments: Follow the renal standard diet regimen, monitor PO intake to meet 75% of his needs. Expected Outcomes/Goals: maintain lab value WNL for ESRD-HD BRITTANY AIKEN MD Apr 28, 2024 10:59
--- NOTE | 2024-04-28 15:19 | DVHPN2 ---
Subjective Complaining of Nausea Reviewed: Care Plan, H&P, Labs, Medications Changes from previous H/P or p: Changes General: Per HPI Objective Vitals Vital Signs Date Time Temp Pulse Resp B/P (MAP) Pulse Ox O2 Delivery O2 Flow Rate FiO2 04/28/24 13:00 98.0 63 17 130/69 (89) 97 98.0 04/28/24 08:00 Nasal Cannula* 4 36 Intake/Output Intake and Output 04/28/24 07:00 Intake Total 940 ml Output Total 500 ml Balance 440 ml Intake Oral 940 ml Output Urine Total 500 ml # Bowel Movements 1 General Appearance: Alert, Oriented X3, Cooperative, mild distress HEENT: Atraumatic, PERRLA Lungs: Clear to auscultation, Other Cardiovascular: Normal S1, Normal S2, Other Abdomen: Normal bowel sounds, Soft, No tenderness Genitourinary: No Apparent Abnormalities Musculoskeletal: Normal sensory function, Normal motor function Neuro: Normal gait, Normal speech Skin: Dry, Intact Psych/Mental Status: Mental status NL, Mood NL Medications Current Medications Medications Dose Ordered Sig/Colleen Route Start Time Stop Time Status Last Admin Dose Admin Sodium Chloride 10 ml Q8HR IV 04/16/24 06:00 04/28/24 05:23 10 ML Docusate Sodium 100 mg BIDPRN PRN PO 04/16/24 04:30 Atorvastatin Calcium 40 mg HS PO 04/16/24 22:00 04/27/24 21:42 40 MG Sevelamer HCl 800 mg TIDWM PO 04/16/24 08:00 04/28/24 07:56 800 MG Ondansetron HCl 4 mg Q4HP PRN IV 04/16/24 05:00 04/20/24 12:29 4 MG Acetaminophen 650 mg Q6HP PRN PO 04/16/24 05:00 04/26/24 01:09 650 MG Nitroglycerin 0.4 mg Q5MINP PRN SL 04/16/24 05:00 Amiodarone HCl 400 mg DAILY PO 04/17/24 10:00 04/27/24 09:20 400 MG Pantoprazole Sodium 40 mg DAILY@0600 PO 04/17/24 06:00 04/28/24 05:23 40 MG Metoprolol Succinate 25 mg DAILY PO 04/17/24 10:00 04/27/24 09:20 25 MG Digoxin 0.125 mg EOD PO 04/22/24 10:00 04/26/24 09:55 0.125 MG Doxycycline Monohydrate 100 mg Q12HR PO 04/25/24 10:00 04/28/24 10:14 100 MG Laboratory Results Laboratory Tests 04/27/24 07:14 Urinalysis Test 04/17/24 07:52 Urine Color Light-yellow (Yellow) Urine Clarity Clear (Clear) Urine pH 6.0 (5.0-9.0) Urine Specific [place] 1.009 (1.001-1.035) Urine Protein 1+ (Negative) H Urine Ketones Negative (Negative) Urine Blood 3+ /uL (Negative) H Urine Nitrite Negative (Negative) Urine Bilirubin Negative (Negative) Urine Urobilinogen Normal mg/dL (Negative) Urine Leukocyte Esterase 1+ /uL (Negative) Urine RBC 102 /hpf (0 - 3) Urine WBC 17 /hpf (0 - 3) Urine Squamous Epithelial Cells Few /hpf (<5) Urine Bacteria None seen /hpf (None Seen) Urine Glucose Normal mg/dL (Normal) Microbiology Microbiology Date/Time Source Procedure Growth Status 04/23/24 18:26 Pleural Fluid Gram Stain - Final Complete 04/23/24 18:26 Pleural Fluid Body Fluid Culture - Final Complete 04/20/24 17:34 Nose MRSA Screen - Final Complete 04/16/24 10:02 Blood Blood Culture - Final NO GROWTH AFTER 5 DAYS OF INCUBATION. Complete Labs and/or images reviewed: Labs reviewed by me, Image(s) reviewed by me Assessment/Plan Assessment/Plan Impression: -hypotension secondary to atrial fibrillation and heart failure medication -acute on chronic systolic heart failure with ejection fraction 20% -pulmonary arterial hypertension with noted elevated RSVP -coronary artery disease with previous CABG -fever ESRD with HD -anemia of chronic disease -hyperkalemia -hypervolemic hyponatremia -Acute hypoxic respiratory failure secondary to pulmonary vascular congestion -right pleural effusion Plan: Events: Receiving HD, reporting nausea during treatment. BP labile. -GDMT per cardiology -nephrology consultation : Plans for HD today -hold antihypertensives and heart failure medications at this time -continue empiric antibiotic therapy -DC planning for AM. This medical document was created using an electronic medical record system with [employer] dictation system. Although this document has been carefully reviewed, there may still be some phonetic and typographical errors. These areas are purely typographical due to imperfections of the software programs, and do not reflect any compromise in the patient's medical care. Plan discussed with: Patient, Other (RN) Date of Service: Apr 28, 2024 Billing Provider: MONIQUE MACDONALD NP Common Visit Codes: [id number] INP/OBS CARE(HIGH) MONIQUE MACDONALD NP Apr 28, 2024 15:19
--- NOTE | 2024-04-28 20:37 | DVHPN2 ---
Progress Note - Dictate Date Seen: Apr 28, 2024 Medical Necessity Reason Pt with a Central, PICC or Fol: No Subjective Patient seen and examined at bedside. Remains on supplemental oxygen Overnight events reviewed. vital signs Vital Sign Date Time Temp Pulse Resp B/P (MAP) Pulse Ox O2 Delivery O2 Flow Rate FiO2 04/28/24 17:00 98.0 63 17 108/57 (74) 98 98.0 04/28/24 08:00 Nasal Cannula* 4 36 Total Intake and Output 04/27/24 04/27/24 04/28/24 15:00 23:00 07:00 Intake Total 540 ml 400 ml Output Total 250 ml 250 ml Balance 290 ml 150 ml medications Current Medications Medications Dose Ordered Sig/Colleen Route Start Time Stop Time Status Last Admin Dose Admin Sodium Chloride 10 ml Q8HR IV 04/16/24 06:00 04/28/24 15:59 10 ML Docusate Sodium 100 mg BIDPRN PRN PO 04/16/24 04:30 Atorvastatin Calcium 40 mg HS PO 04/16/24 22:00 04/27/24 21:42 40 MG Sevelamer HCl 800 mg TIDWM PO 04/16/24 08:00 04/28/24 17:33 800 MG Ondansetron HCl 4 mg Q4HP PRN IV 04/16/24 05:00 04/20/24 12:29 4 MG Acetaminophen 650 mg Q6HP PRN PO 04/16/24 05:00 04/26/24 01:09 650 MG Nitroglycerin 0.4 mg Q5MINP PRN SL 04/16/24 05:00 Amiodarone HCl 400 mg DAILY PO 04/17/24 10:00 04/27/24 09:20 400 MG Pantoprazole Sodium 40 mg DAILY@0600 PO 04/17/24 06:00 04/28/24 05:23 40 MG Metoprolol Succinate 25 mg DAILY PO 04/17/24 10:00 04/27/24 09:20 25 MG Digoxin 0.125 mg EOD PO 04/22/24 10:00 04/26/24 09:55 0.125 MG Doxycycline Monohydrate 100 mg Q12HR PO 04/25/24 10:00 04/28/24 10:14 100 MG objective Gen.: Patient lying in bed in no apparent distress. On supplemental oxygen. Head: Normocephalic, atraumatic. Eyes: EOMI/PERRLA. Ears: Normal hearing. Normal anatomy. Neck/trachea: Trachea midline, supple. Nose: Normal external anatomy. Mouth: Moist mucous membranes. Chest: Decreased air entry bilaterally. No wheezing or rhonchi. Cardiovascular: Positive S1, positive S2. Regular rate and rhythm. Abdomen: Positive bowel sounds in all 4 quadrants. Soft, non-tender, non- distended. : Deferred. Rectal: Deferred. Skin: Warm, dry. Intact. Extremities: 2+ radial pulses bilaterally. No lower extremity edema. Neuro: Awake, alert, oriented x3. No gross motor or sensory deficits. Cranial nerves II through XII intact. Gait not assessed. laboratory and microbiology Laboratory Tests 04/27/24 07:14 Test 04/27/24 07:14 Range/Units Serum Glucose 98 74-106 mg/dL Assessment/Plan Impression: Acute hypoxic respiratory failure Pleural effusion Atelectasis End-stage renal disease on hemodialysis CHF Atrial fibrillation with RVR Anemia of chronic disease Events: Supplemental oxygen on 2 liters/minute via nasal cannula Taper O2 as tolerated. Head of bed elevation Aspiration precautions S/p hemodialysis today - 3 liters removed. Continue antibiotics Incentive spirometry Hemodialysis per Nephrology Monitor renal function Monitor electrolytes. Supplement as necessary. Patient is stable for discharge from the pulmonary standpoint. Labs and imaging reviewed. Rest of plan as noted below. Plan: Chest x-ray imaging report reviewed. Left chest wall pacemaker. No acute opacities. Moderate right pleural effusion. No pneumothorax. Supplemental oxygen Keep O2 saturation above 92%. Continue antibiotics Monitor renal function. Monitor electrolytes Supplement as necessary. Monitor ins and outs. Nephrology recommendations appreciated. Hemodialysis per Nephrology. DVT prophylaxis-heparin subcutaneously Prophylaxis with Protonix Prognosis: Poor given multiple comorbidities. Rest of plan per hospitalist and other consultants. Thank you JI Katz for allowing me to participate in this patient's care. Further recommendations will depend on patient's clinical course. Please do not hesitate to contact me if you have any questions or concerns. This medical document was created using an electronic medical record system with [employer] system. Although this document has been carefully reviewed, there may still be some phonetic and typographical errors. These areas are purely typographical due to imperfections of the software programs, and do not reflect any compromise in the patient's medical care. Dietary Evaluation Review Comments: Follow the renal standard diet regimen, monitor PO intake to meet 75% of his needs. Expected Outcomes/Goals: maintain lab value WNL for ESRD-HD Plan discussed with: Patient, Other (MITCHEL Farnsworth) DEVAUGHN LEONG MD Apr 28, 2024 20:37
[2024-04-29] VITALS (7 sets, daily range): BP systolic 107–129; BP diastolic 47–69; PULSE 60–68; RESP 17–20; TEMP 36.6; O2SAT 92–100
[2024-04-29] MEDS ORDERED: METO-6 PO (11:33)
[2024-04-29] MEDS ORDERED: AMIO200T13 PO (11:33)
[2024-04-29] MEDS ORDERED: DIGO1TAB48 PO (11:33)
--- NOTE | 2024-04-29 12:11 | DVHPN2 ---
Progress Note Date Seen: Apr 29, 2024 Medical Necessity Reason Pt with a Central, PICC or Fol: No Subjective Patient reports: No new complaints Other Systems: Patient seen and examined by myself in follow-up today Objective vital signs Vital Sign Date Time Temp Pulse Resp B/P (MAP) Pulse Ox O2 Delivery O2 Flow Rate FiO2 04/29/24 09:09 62 129/66 04/29/24 09:00 97.8 19 98 97.8 04/29/24 08:00 Nasal Cannula* 1 24 Total Intake and Output 04/28/24 04/28/24 04/29/24 15:00 23:00 07:00 Intake Total 650 ml 400 ml Output Total 50 ml Balance 600 ml 400 ml medications Current Medications Medications Dose Ordered Sig/Colleen Route Start Time Stop Time Status Last Admin Dose Admin Sodium Chloride 10 ml Q8HR IV 04/16/24 06:00 04/29/24 06:00 10 ML Docusate Sodium 100 mg BIDPRN PRN PO 04/16/24 04:30 Atorvastatin Calcium 40 mg HS PO 04/16/24 22:00 04/28/24 21:38 40 MG Sevelamer HCl 800 mg TIDWM PO 04/16/24 08:00 04/29/24 07:56 800 MG Ondansetron HCl 4 mg Q4HP PRN IV 04/16/24 05:00 04/20/24 12:29 4 MG Acetaminophen 650 mg Q6HP PRN PO 04/16/24 05:00 04/26/24 01:09 650 MG Nitroglycerin 0.4 mg Q5MINP PRN SL 04/16/24 05:00 Amiodarone HCl 400 mg DAILY PO 04/17/24 10:00 04/29/24 09:08 400 MG Pantoprazole Sodium 40 mg DAILY@0600 PO 04/17/24 06:00 04/29/24 06:16 40 MG Metoprolol Succinate 25 mg DAILY PO 04/17/24 10:00 04/29/24 09:09 25 MG Digoxin 0.125 mg EOD PO 04/22/24 10:00 04/26/24 09:55 0.125 MG Doxycycline Monohydrate 100 mg Q12HR PO 04/25/24 10:00 04/29/24 09:10 100 MG Examination: LUNGS:Normal, CVS:Normal, MSK:Normal laboratory and microbiology Laboratory Tests 04/27/24 07:14 Test 04/27/24 07:14 Range/Units Serum Glucose 98 74-106 mg/dL Microbiology Date/Time Source Procedure Growth Status 04/23/24 18:26 Pleural Fluid Gram Stain - Final Complete 04/23/24 18:26 Pleural Fluid Body Fluid Culture - Final Complete 04/20/24 17:34 Nose MRSA Screen - Final Complete 04/16/24 10:02 Blood Blood Culture - Final NO GROWTH AFTER 5 DAYS OF INCUBATION. Complete Problem List/Assessment/Plan Problem List/Assessment/Plan ESRD on hemodialysis, out of the area Acute on chronic HFrEF, ejection fraction 20%. Hypertension Anemia of chronic disease Coronary artery disease Afib RVR leading to near syncope in setting of hypotension Status post ICD placement Recommendations Hemodialysis tomorrow Epogen 40387 IV post hemodialysis Resume home medication Renal diet We will continue to follow up Plan discussed with: Patient Dietary Evaluation Review Comments: Follow the renal standard diet regimen, monitor PO intake to meet 75% of his needs. Expected Outcomes/Goals: maintain lab value WNL for ESRD-HD BRITTANY AIKEN MD Apr 29, 2024 12:11
--- NOTE | 2024-04-29 13:22 | DVHDS2 ---
Discharge Summary Date of Admission Apr 16, 2024 at 04:18 Date of Discharge: Apr 29, 2024 Admitting Diagnosis Atrial fibrillation with rapid ventricular rate Labs/Diagnostic Data: Laboratory Results Test 04/27/24 07:14 04/24/24 05:24 04/23/24 18:26 04/23/24 02:08 White Blood Count 3.5 10^3/uL (4.4-10.8) Red Blood Count 2.36 10^6/uL (4.5-5.90) Hemoglobin 7.5 g/dL (13.5-17.5) Hematocrit 22.6 % (41.0-53.0) Mean Corpuscular Volume 95.9 fL (80.0-100.0) Mean Corpuscular Hemoglobin 31.8 pg (28.0-32.0) Mean Corpuscular Hemoglobin Concent 33.1 g/dL (32.0-36.0) Red Cell Distribution Width 18.3 % (11.8-14.3) Platelet Count 89 10^3/uL (140-450) Mean Platelet Volume 7.0 fL (6.9-10.8) Neutrophils (%) (Auto) 72.2 % (37.0-80.0) Lymphocytes (%) (Auto) 8.0 % (10.0-50.0) Monocytes (%) (Auto) 9.5 % (0.0-12.0) Eosinophils (%) (Auto) 9.0 % (0.0-7.0) Basophils (%) (Auto) 1.3 % (0.0-2.0) Neutrophils # (Auto) 2.5 10 ^3/uL (1.6-8.6) Lymphocytes # (Auto) 0.3 10 ^3/uL (0.4-5.4) Monocytes # (Auto) 0.3 10 ^3/uL (0-1.3) Eosinophils # (Auto) 0.3 10 ^3/uL (0-0.8) Basophils # (Auto) 0 10 ^3/uL (0-0.2) Nucleated Red Blood Cells 0.1 % Sodium Level 136 mmol/L (136-145) Potassium Level 3.8 mmol/L (3.5-5.1) Chloride Level 99 mmol/L (98-107) Carbon Dioxide Level 30 mmol/L (20-31) Anion Gap 7 (5-15) Blood Urea Nitrogen 30 mg/dL (9-23) Creatinine 5.75 mg/dL (0.700-1.30) Glomerular Filtration Rate Calc 10 mL/min (>90) BUN/Creatinine Ratio 5.2 (10.0-20.0) Serum Glucose 98 mg/dL (74-106) Calcium Level 9.7 mg/dL (8.7-10.4) Prothrombin Time 12.7 sec (9.3-11.8) Prothrombin Time INR 1.22 (0.9-1.15) Activated Partial Thromboplast Time 32.2 SEC (24.5-34.5) Body Fluid Source Pleural fluid Body Fluid pH 8.0 Body Fluid WBC (Manual) 550 CUMM (0-200) Body Fluid RBC (Manual) 102 CUMM (0-2000) Body Fluid Mononuclear Cells 77 % Body Fluid Polymorphonuclear Cells 23 % (0-25) Body Fluid Glucose 129 mg/dL (.) Body Fluid Total Protein 3.4 g/dL (.) Body Fluid Lactate Dehydrogenase 105 IU/L (.) B-Type Natriuretic Peptide > 5000.00 pg/mL (0-100) Test 04/22/24 04:34 04/21/24 04:40 04/20/24 16:53 04/20/24 16:48 Total Bilirubin 0.4 mg/dL (0.2-1.0) Aspartate Amino Transferase (AST) 10 U/L (13-40) Alanine Aminotransferase (ALT) < 9 U/L (7-40) Alkaline Phosphatase 96 U/L (46-116) Total Protein 6.1 g/dL (5.7-8.2) Albumin 3.6 g/dL (3.2-4.8) Phosphorus Level 5.3 mg/dL (2.4-5.1) Magnesium Level 2.3 mg/dL (1.6-2.6) Hepatitis A IgM Antibody Negative Hepatitis B Surface Antigen Negative (Negative) Hepatitis B Core IgM Antibody Negative (Negative) Hepatitis C Antibody Negative (Negative) Blood Gas Specimen Type Arterial Blood Gas Sample Site Left radial Blood Gas Patient Temperature 37.0 Arterial Blood Date Drawn [id number] Arterial Blood pH 7.302 (7.350-7.450) Arterial Blood Partial Pressure CO2 53.0 mmHg (35.0-48.0) Arterial Blood Partial Pressure O2 284.8 mmHg (83.0-108.0) Arterial Blood HCO3 25.6 mmol/L (21.0-28.0) Arterial Blood Oxygen Saturation 99.7 % (94.0-98.0) Arterial Blood Base Excess -1.2 mmol/L (-2.0-3.0) Arterial Blood Oxyhemoglobin 98.6 % (94.0-98.0) Arterial Blood Carboxyhemoglobin 0.9 % (0.5-1.5) Arterial Blood Methemoglobin 0.2 % (0.0-1.5) Chilo Test Yes Blood Gas Total Hemoglobin 10.10 g/dL (13.5-17.5) Blood Gas Liter Flow 15.00 Blood Gas Modality Mask - nrb FiO2 % 100.0 Erythrocyte Sedimentation Rate 23 mm/hr (0-20) C-Reactive Protein High Sensitivity 1.46 mg/dL (<1.0) Test 04/18/24 06:29 04/17/24 07:52 04/16/24 06:23 04/16/24 04:55 Differential Total Cells Counted 100.0 (100) Neutrophils % (Manual) 66 (37.0-80.0) Band Neutrophils % (Manual) 0 Lymphocytes % (Manual) 8 (10.0-50.0) Monocytes % (Manual) 18 (0-12) Eosinophils % (Manual) 8 (0-7) Basophils % (Manual) 0 (0.0-2.0) Metamyelocytes % (manual) 0 Myelocytes % (Manual) 0 Promyelocytes % (Manual) 0 Blast Cells % (Manual) 0 Reactive Lymphocytes 0 Platelet Estimate Decreased Urine Color Light-yellow (Yellow) Urine Clarity Clear (Clear) Urine pH 6.0 (5.0-9.0) Urine Specific [place] 1.009 (1.001-1.035) Urine Protein 1+ (Negative) Urine Ketones Negative (Negative) Urine Blood 3+ /uL (Negative) Urine Nitrite Negative (Negative) Urine Bilirubin Negative (Negative) Urine Urobilinogen Normal mg/dL (Negative) Urine Leukocyte Esterase 1+ /uL (Negative) Urine RBC 102 /hpf (0 - 3) Urine WBC 17 /hpf (0 - 3) Urine Squamous Epithelial Cells Few /hpf (<5) Urine Bacteria None seen /hpf (None Seen) Urine Glucose Normal mg/dL (Normal) Influenza Type A Antigen Negative (Negative) Influenza Type B Antigen Negative (Negative) SARS-CoV-2 Antigen (Rapid) Negative (NEGATIVE) Lactic Acid Level 1.2 mmol/L (0.4-2.0) Test 04/16/24 01:35 Troponin I High Sensitivity 46 ng/L (</=54) Other Laboratory Tests 04/27/24 07:14 Brief Hx & Hospital Course: History of Present Illness 64-year-old male presents for evaluation generalized weakness. Patient was recently discharged for end-stage renal disease status post dialysis and acute on chronic congestive heart failure. Patient reports developing generalized weakness with associated dizziness. On arrival patient's blood pressure was in the 50s. He was also noted to be in AFib with RVR patient converted to sinus tachycardia after bolus of amiodarone. He continued to be hypotensive therefore patient was placed on Levophed. He denies any chest pain. Reports mild shortness for breath. No fever or chills. No other acute complaints reported. Course of hospitalization: Patient was subsequently weaned off of vasopressor therapy. Goal-directed medical therapy for CHF was implemented with the patient having some noted hypotension with Entresto being held. Given the patient's repeat hospitalizations due to decompensated heart failure, consultation was placed for ICD placement. Patient underwent biventricular ICD placement five days ago. Postoperatively with the patient's recovery has been uneventful. Patient has received hemodialysis while in the hospital, eyes treatment yesterday. Patient states that his symptoms have improved. The patient was blood pressure has been stable since dialysis was completed yesterday. He is agreeable to be discharged home, follow up with billiard table repairer in one week, PCP in one week, and continue with his scheduled hemodialysis treatments. Patient will also continue rate control for his atrial fibrillation with amiodarone, Toprol-XL, as well as digoxin as ordered by Cardiology. He is agreeable with discharge plan. All questions answered. Physical examination General: Alert and Oriented x3. No acute distress. Well-nourished. Eyes: EOMI. Anicteric. HENT: Moist mucous membranes. Lungs: Clear to auscultation bilaterally. No accessory muscle use. Cardiovascular: Regular rate and rhythm. No murmur. No JVD. Abdomen: Soft, non-tender and non-distended. No palpable masses. Extremities: No edema. Non-tender. Skin: No rashes or lesions. Warm. Neurologic: No focal neurological deficits. CN II-XII grossly intact, but not individually tested. Psychiatric: Cooperative. Appropriate mood and affect. Total time spent with patient discussing and formulating plan of care: 35 minutes. This medical document was created using an electronic medical record system with [employer] dictation system. Although this document has been carefully reviewed, there may still be some phonetic and typographical errors. These areas are purely typographical due to imperfections of the software programs, and do not reflect any compromise in the patient's medical care. Consults/Reason for consult Cardiology: Decompensated heart failure Copy And Print Associate: Placement of ICD Operations or Procedures 04/24/2024: ICD placement Condition at Discharge: Guarded Final Diagnosis/Problems List Decompensated systolic heart failure Secondary Diagnosis: -hypotension secondary to atrial fibrillation and heart failure medication -acute on chronic systolic heart failure with ejection fraction 20% -pulmonary arterial hypertension with noted elevated RSVP -coronary artery disease with previous CABG -fever ESRD with HD -anemia of chronic disease -hyperkalemia -hypervolemic hyponatremia -Acute hypoxic respiratory failure secondary to pulmonary vascular congestion -right pleural effusion Discharge Disposition: Home Discharge Instruct/Medications Diet: Consistent carbohydrate, Cardiac 2g Na,low cholest Activity: No Restrictions, As Tolerated Follow Up/Referral: Follow up with Cardiology: Dr. Tamayo, for ICD evaluation Medications: Continue all home medications as prescribed per medication reconciliation form 36 Discharge Statement: "Patient was advised to return to the ER or call 911 if any headaches, dizziness, shortness of breath, chest pain, abdominal pain, bleeding, fevers, or worsening of medical condition. Patient was counseled about treatment plan, medications, possible side effects, patientverbalized understanding. All questions were answered to the best of my ability. This discharge took greater then 30 minutes in planning, reviewing documentation, counseling the patient, and discussing with other team members." ASSESSMENT ASSESSMENT Assessment Decompensated systolic heart failure Date of Service: Apr 29, 2024 Billing Provider: MONIQUE MACDONALD NP Common Visit Codes: 17761-DQY/OBS DISCH DAY >30min MONIQUE MACDONALD NP Apr 29, 2024 13:22
--- NOTE | 2024-04-29 22:58 | DVHPN2 ---
Progress Note - Dictate Date Seen: Apr 29, 2024 Medical Necessity Reason Pt with a Central, PICC or Fol: No Subjective Patient seen and examined at bedside. Remains on supplemental oxygen Overnight events reviewed. vital signs Vital Sign Date Time Temp Pulse Resp B/P (MAP) Pulse Ox O2 Delivery O2 Flow Rate FiO2 04/29/24 17:00 98.7 60 17 109/47 (67) 92 98.7 04/29/24 08:00 Nasal Cannula* 1 24 Total Intake and Output 04/28/24 04/28/24 04/29/24 15:00 23:00 07:00 Intake Total 650 ml 400 ml Output Total 50 ml Balance 600 ml 400 ml objective Gen.: Patient lying in bed in no apparent distress. On supplemental oxygen. Head: Normocephalic, atraumatic. Eyes: EOMI/PERRLA. Ears: Normal hearing. Normal anatomy. Neck/trachea: Trachea midline, supple. Nose: Normal external anatomy. Mouth: Moist mucous membranes. Chest: Decreased air entry bilaterally. No wheezing or rhonchi. Cardiovascular: Positive S1, positive S2. Regular rate and rhythm. Abdomen: Positive bowel sounds in all 4 quadrants. Soft, non-tender, non- distended. : Deferred. Rectal: Deferred. Skin: Warm, dry. Intact. Extremities: 2+ radial pulses bilaterally. No lower extremity edema. Neuro: Awake, alert, oriented x3. No gross motor or sensory deficits. Cranial nerves II through XII intact. Gait not assessed. laboratory and microbiology Laboratory Tests 04/27/24 07:14 Test 04/27/24 07:14 Range/Units Serum Glucose 98 74-106 mg/dL Assessment/Plan Impression: Acute hypoxic respiratory failure Pleural effusion Atelectasis End-stage renal disease on hemodialysis CHF Atrial fibrillation with RVR Anemia of chronic disease Events: Supplemental oxygen on 2 liters/minute via nasal cannula Taper O2 as tolerated. Head of bed elevation Aspiration precautions S/p hemodialysis yesterday - 3 liters removed. Continue antibiotics Incentive spirometry Hemodialysis per Nephrology Monitor renal function Monitor electrolytes. Supplement as necessary. Patient is stable for discharge from the pulmonary standpoint. Labs and imaging reviewed. Rest of plan as noted below. Plan: Chest x-ray imaging report reviewed. Left chest wall pacemaker. No acute opacities. Moderate right pleural effusion. No pneumothorax. Supplemental oxygen Keep O2 saturation above 92%. Continue antibiotics Monitor renal function. Monitor electrolytes Supplement as necessary. Monitor ins and outs. Nephrology recommendations appreciated. Hemodialysis per Nephrology. DVT prophylaxis-heparin subcutaneously Prophylaxis with Protonix Prognosis: Poor given multiple comorbidities. Rest of plan per hospitalist and other consultants. Thank you JI Katz for allowing me to participate in this patient's care. Further recommendations will depend on patient's clinical course. Please do not hesitate to contact me if you have any questions or concerns. This medical document was created using an electronic medical record system with [employer] dictation system. Although this document has been carefully reviewed, there may still be some phonetic and typographical errors. These areas are purely typographical due to imperfections of the software programs, and do not reflect any compromise in the patient's medical care. Dietary Evaluation Review Comments: Follow the renal standard diet regimen, monitor PO intake to meet 75% of his needs. Expected Outcomes/Goals: maintain lab value WNL for ESRD-HD Plan discussed with: Patient, Other (MITCHEL Farnsworth) DEVAUGHN LEONG MD Apr 29, 2024 22:58
[2024-04-30] MEDS ORDERED: SODIUM CHL 0.9% 1000 ML BAG XX ONE (07:00)
[2024-04-30] MEDS ORDERED: EPOETIN ALFA-EPBX 10,000 UNIT/1ML VIAL SC ONE (21:00)
== END 2024-04-29 19:08 | disposition home or self-care (01) | DRG 276 ==
LOC: ER 22:05 → EDBD 22:05 → TELE 04-16 04:18 → TELE-EAST 04-17 16:30 → DOU IN ICU 04-20 17:00 → TELE-EAST 04-24 17:14
PROVIDERS: ADMIT Internal Medicine; ATTEND Nurse Practitioner Acute Care
PROC: 5A1D70Z Performance of Urinary Filtration, Intermittent, Less than 6 Hours Per Day (ICD-10-PCS; principal; 2024-04-17)
PROC: B51NYZZ Fluoroscopy of Left Upper Extremity Veins using Other Contrast (ICD-10-PCS; 2024-04-20)
PROC: 5A1D70Z Performance of Urinary Filtration, Intermittent, Less than 6 Hours Per Day (ICD-10-PCS; 2024-04-21)
PROC: 5A1D70Z Performance of Urinary Filtration, Intermittent, Less than 6 Hours Per Day (ICD-10-PCS; 2024-04-23)
PROC: 0W993ZZ Drainage of Right Pleural Cavity, Percutaneous Approach (ICD-10-PCS; 2024-04-23)
PROC: 02H63KZ Insertion of Defibrillator Lead into Right Atrium, Percutaneous Approach (ICD-10-PCS; 2024-04-24)
PROC: 02HL3KZ Insertion of Defibrillator Lead into Left Ventricle, Percutaneous Approach (ICD-10-PCS; 2024-04-24)
PROC: 0JPT0PZ Removal of Cardiac Rhythm Related Device from Trunk Subcutaneous Tissue and Fascia, Open Approach (ICD-10-PCS; 2024-04-24)
PROC: 0JH609Z Insertion of Cardiac Resynchronization Defibrillator Pulse Generator into Chest Subcutaneous Tissue and Fascia, Open Approach (ICD-10-PCS; 2024-04-24)
PROC: 02HK3KZ Insertion of Defibrillator Lead into Right Ventricle, Percutaneous Approach (ICD-10-PCS; 2024-04-24)
PROC: B517YZZ Fluoroscopy of Left Subclavian Vein using Other Contrast (ICD-10-PCS; 2024-04-24)
PROC: 5A1D70Z Performance of Urinary Filtration, Intermittent, Less than 6 Hours Per Day (ICD-10-PCS; 2024-04-25)
PROC: 5A1D70Z Performance of Urinary Filtration, Intermittent, Less than 6 Hours Per Day (ICD-10-PCS; 2024-04-28)
DX: I13.2 Hypertensive heart and chronic kidney disease with heart failure and with stage 5 chronic kidney disease, or end stage renal disease (principal); I50.23 Acute on chronic systolic (congestive) heart failure; J96.01 Acute respiratory failure with hypoxia; N18.6 End stage renal disease; E87.1 Hypo-osmolality and hyponatremia; D61.818 Other pancytopenia; J98.11 Atelectasis; I47.19 Other supraventricular tachycardia; J91.8 Pleural effusion in other conditions classified elsewhere; Z20.822 Contact with and (suspected) exposure to COVID-19; E87.5 Hyperkalemia; I25.10 Atherosclerotic heart disease of native coronary artery without angina pectoris; I25.5 Ischemic cardiomyopathy; I48.0 Paroxysmal atrial fibrillation; D69.6 Thrombocytopenia, unspecified; E78.5 Hyperlipidemia, unspecified; I08.1 Rheumatic disorders of both mitral and tricuspid valves; I27.21 Secondary pulmonary arterial hypertension; D63.8 Anemia in other chronic diseases classified elsewhere; I42.0 Dilated cardiomyopathy; Z99.2 Dependence on renal dialysis; Z95.1 Presence of aortocoronary bypass graft; Z95.5 Presence of coronary angioplasty implant and graft; Z79.01 Long term (current) use of anticoagulants; Z95.810 Presence of automatic (implantable) cardiac defibrillator; Z79.02 Long term (current) use of antithrombotics/antiplatelets; I95.2 Hypotension due to drugs; T50.995A Adverse effect of other drugs, medicaments and biological substances, initial encounter; Y92.89 Other specified places as the place of occurrence of the external cause
CPT/HCPCS: 32555; 33225; 33233; 33249; 36415; 36600; 70450; 71045; 75716; 80048; 80053; 80074; 81001; 82805; 83605; 83735; 83880; 83986; 84100; 84484; 85007; 85025; 85027; 85610; 85652; 85730; 86141; 86850; 86900; 86901; 87040; 87081; 87205; 87426; 87804; 89051; 90935; 93005; 99152; G0378; J2250; J2405; Q0162; Q9967

== ENCOUNTER 2024-05-18 16:39 | Inpatient (IN) | payer OTHER ==
[~2024-05-18] VITALS: Ht 188 cm; Wt 78.0 kg
[~2024-05-18 16:39] MED LIST changes: +AMIO200T13 PO; +DIGO1TAB48 PO; +METO-6 PO
--- NOTE | 2024-05-18 16:46 | ECG ---
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
--- NOTE | 2024-05-18 16:53 | ED.PDOC ---
SOB-HPI HPI Comments 64 y.o male with PMH of ESRD, dialysis T,TH,Sat, hyperlipidemia, prostate cancer, CHF, and MIx2, presents to the ED via EMS for a chief complaint of SOB associated with left arm and hand swelling that started 1-2 days ago. Patient reports waking up today with worsening SOB, states he has missed the last 2 dialysis session due to nurse deeming him altered upon presentation. EMS reports patient had a SPO2 at 85% on room air, was placed on an albuterol breathing treatment increasing saturation to the high 90's. Patient mentions having a pacemaker placed in at this hospital on 04/24/24 and has pain at the surgical site only. Patient denies any nausea, vomiting, fever, chills, abdominal pain, abdominal swelling, leg swelling. Chief Complaint: Shortness of Breath Time Seen by MD: 16:43 Primary Care Provider: pt does not know Reviewed notes: Nurses Notes, Towel Weaver Notes, Medications, Allergies Information Source: Patient, Emergency Med Personnel Mode of Arrival: EMS Severity: Moderate Timing: Days (1) Duration: Since onset Context: At Rest PE Risk Factors: Recent Surgery History of: None Prehospital treatment: 12 Lead EKG, Breathing Tx, Payroll Analyst Modifying Factors: Nothing Associated Signs and Symptoms: Other Past Medical History PAST MEDICAL HISTORY: CAD, Cancer (prostate ), CHF, ESRD, High Lipids, HI (2) Surgical History: Pacemaker Surgical History (Other): cardiac ablation x3, right upper arm fistula Family History Family History: Unknown Social History Smoker: Non-Smoker Alcohol: Denies ETOH Use Drugs: Denies Drug Use Lives In: Home Constitutional: denies: chills, diaphoresis, fatigue, fever, malaise, sweats, weakness, others EENTM: denies: blurred vision, double vision, ear bleeding, ear discharge, ear drainage, ear pain, ear ringing, eye pain, eye redness, hearing loss, mouth pain, mouth swelling, nasal discharge, nose bleeding, nose congestion, nose pain, photophobia, tearing, throat pain, throat swelling, voice changes, others Respiratory: reports: SOB at rest, shortness of breath, SOB with excertion; denies: cough, hemoptysis, orthopnea, stridor, wheezing, others Cardiovascular: denies: chest pain, dizzy spells, diaphoresis, Dyspnea on exertion, edema, irregular heart beat, left arm pain, lightheadedness, palpitations, PND, syncope, others Gastrointestinal: denies: abdomen distended, abdominal pain, blood streaked bowels, constipated, diarrhea, dysphagia, difficulty swallowing, hematemesis, melena, nausea, poor appetite, poor fluid intake, rectal bleeding, rectal pain, vomiting, others Genitourinary: denies: burning, dysuria, flank pain, frequency, hematuria, incontinence, penile discharge, penile sore, pain, testicle pain, testicle swelling, urgency, others Neurological: denies: dizziness, fainting, headache, left sided numbness, left sided weakness, numbness, paresthesia, pre-existing deficit, right sided numbness, right sided weakness, seizure, speech problems, tingling, tremors, weakness, others Musculoskeletal: reports: others (left arm and hand swelling ); denies: back pain, gout, joint pain, joint swelling, muscle pain, muscle stiffness, neck pain Integumetry: denies: bruises, change in color, change in hair/nails, dryness, laceration, lesions, lumps, rash, wounds, others Allergic/Immunocompromised: denies: Difficulty Healing, Frequent Infections, Hives, Itching, others Hematologic/Lymphatic: denies: anemia, blood clots, easy bleeding, easy bruising, swollen glands, others Endocrine: denies: excessive hunger, excessive sweating, excessive thirst, excessive urination, flushing, intolerance to cold, intolerance to heat, unexplained weight gain, unexplained weight loss, others Psychiatric: denies: anxiety, bipolar disorder, depression, hopeless, panic disorder, schizophrenia, sleepless, suicidal, others All Other Systems: Reviewed and Negative Physical Exam General Appearance: Moderate Distress HEENT: Pale Conjuntivae (L), Pale Conjuntivae (R), Pharynx Normal, TMs Normal Neck: Full Range of Motion, Non-Tender, Normal, Normal Inspection Respiratory: Chest Non-Tender, Decreased Breath Sounds, No Accessory Muscle Use, Rales, Respiratory Distress Cardiovascular: No Edema, No JVD, No Murmur, No Gallop, Normal Peripheral Pulses, Regular Rate/Rhythm Breast Exam: Deferred Gastrointestinal: No Organomegaly, Non Tender, No Pulsatile Mass, Normal Bowel Sounds, Soft Genitalia: Deferred Pelvic: Deferred Rectal: Deferred Extremities: No calf tenderness, Normal capillary refill, Other (Edema to the left upper extremity. The patient has a fistula for dialysis in the right upper extremity) Musculoskeletal : Apperance: Normal Neurologic: Alert, residential pest control technician II-XII nml as Tested, Motor Weakness, Normal Affect, Normal Mood, No Sensory Deficits Cerebellar Function: Unable to Test Reflexes: Normal Skin: Dry, Pallor, Warm Lymphatic: No Adenopathy Was a procedure done? Was a procedure done?: No Differential Dx Differential Diagnosis: Asthma, Bronchitis, COPD, Pneumonia, Respiratory Distress, URI X-Ray, Labs, Meds, VS Vital Signs Date Time Temp Pulse Resp B/P (MAP) Pulse Ox O2 Delivery O2 Flow Rate FiO2 05/18/24 20:00 129 05/18/24 19:20 Nasal Cannula* 2 28 05/18/24 18:38 120 18 95 Nasal Cannula* 2 28 05/18/24 18:38 99 Nasal Cannula* 2 28 05/18/24 18:38 125 18 99 05/18/24 18:35 143 05/18/24 16:43 98.1 95 22 110/60 (77) 100 05/18/24 16:39 94 Lab Test 05/18/24 21:00 05/18/24 18:56 05/18/24 18:51 05/18/24 17:58 Range/Units Phosphorus Level Pending Magnesium Level Pending Iron Level Pending Total Iron Binding Capacity Pending Percent Iron Saturation Pending Ammonia Pending Troponin I High Sensitivity Pending 38 38 </=54 ng/L Influenza Type A Antigen Negative Negative Influenza Type B Antigen Negative Negative SARS-CoV-2 Antigen (Rapid) Negative NEGATIVE White Blood Count 2.1 L 4.4-10.8 10^3/uL Red Blood Count 2.35 L 4.5-5.90 10^6/uL Hemoglobin 7.4 L 13.5-17.5 g/dL Hematocrit 22.5 L 41.0-53.0 % Mean Corpuscular Volume 95.5 80.0-100.0 fL Mean Corpuscular Hemoglobin 31.6 28.0-32.0 pg Mean Corpuscular Hemoglobin Concent 33.1 32.0-36.0 g/dL Red Cell Distribution Width 20.3 H 11.8-14.3 % Platelet Count 105 L 140-450 10^3/uL Mean Platelet Volume 6.8 L 6.9-10.8 fL Neutrophils (%) (Auto) 62.7 37.0-80.0 % Lymphocytes (%) (Auto) 14.3 10.0-50.0 % Monocytes (%) (Auto) 12.3 H 0.0-12.0 % Eosinophils (%) (Auto) 8.9 H 0.0-7.0 % Basophils (%) (Auto) 1.8 0.0-2.0 % Neutrophils # (Auto) 1.3 L 1.6-8.6 10 ^3/uL Lymphocytes # (Auto) 0.3 L 0.4-5.4 10 ^3/uL Monocytes # (Auto) 0.3 0-1.3 10 ^3/uL Eosinophils # (Auto) 0.2 0-0.8 10 ^3/uL Basophils # (Auto) 0 0-0.2 10 ^3/uL Nucleated Red Blood Cells 0.2 % Prothrombin Time Pending Prothrombin Time INR Pending Activated Partial Thromboplast Time Pending Sodium Level 138 136-145 mmol/L Potassium Level 3.1 L 3.5-5.1 mmol/L Chloride Level 88 L 98-107 mmol/L Carbon Dioxide Level > 40 *H 20-31 mmol/L Anion Gap 9.39653 5-15 Blood Urea Nitrogen 52 H 9-23 mg/dL Creatinine 7.06 H 0.700-1.30 mg/dL Glomerular Filtration Rate Calc 8 >90 mL/min BUN/Creatinine Ratio 7.4 L 10.0-20.0 Serum Glucose 109 H 74-106 mg/dL Calcium Level 9.4 8.7-10.4 mg/dL B-Type Natriuretic Peptide 805.81 0-100 pg/mL The patient's influenza a and influenza B as well as COVID test is negative The CBC shows leukopenia at 2.1 The patient's hemoglobin is low at 7.4 and hematocrit 22.5 The chemistry panel shows hypokalemia at 3.1 The CO2 level is greater than 40 The BUN is 52 and the creatinine 7.06 The BNP is 105.81 The chest x-ray shows: IMPRESSION: 1. Moderate right pleural effusion with atelectasis versus airspace disease in the right lower lung. HS:Y At this time, the patient was being admitted to the hospitalist We did speak with the nutrition worker about possible dialysis They are going to consult on this patient. We also did speak to the test facility engineer about consulting on this patient was well The patient was being admitted Images Reviewed?: Images reviewed and evaluated by me Time of 1ST Reevaluation: 16:48 Reevaluation 1ST: Unchanged Patient Education/Counseling: Diagnosis, Treatment, Prognosis Family Education/Counseling: No Family Present Departure 1 Departure Time of Disposition: 20:19 Impression: Primary Impression: Acute respiratory failure Qualified Codes: J96.00 - Acute respiratory failure, unspecified whether with hypoxia or hypercapnia Additional Impressions: Severe anemia Left arm swelling ESRD needing dialysis Disposition: ADMITTED INPATIENT Admit to: Tele Condition: Fair Critical Care Note Critical Care Time?: Yes (35 min-critical care time only) Stability Stability form required: Yes Unstable for transfer: Telemetry monitoring (Telemetry monitoring required), ED Physician Assesment (Clinical assesment) I personally scribed for MACKENZIE FULTON MD ([email or web address]) on 05/18/24 at 16:53. Electronically submitted by Fela Duffy ([facility]). MACKENZIE FULTON MD May 18, 2024 16:53
--- NOTE | 2024-05-18 17:53 | DVH ---
CHEST RADIOGRAPH Indication: sob Technique: Single frontal view of the chest was obtained Comparison: XY CHEST PORTABLE on DOS: 04/26/24, XY CHEST PORTABLE on DOS: 04/25/24 FINDINGS: Lines and Tubes: There is a multi lead AICD device in the left chest wall. Lungs/pleura:: There is moderate right pleural effusion with atelectasis versus airspace disease in t he right lower lung. The left lung and pleural space are clear. Pleura: No effusion.No pneumothorax. Cardiomediastinal contours: Stable cardiomegaly. Pulmonary vasculature: Mild pulmonary vascular congestion. Bones: No acute osseous abnormality. IMPRESSION: 1. Moderate right pleural effusion with atelectasis versus airspace disease in the right lower lung. HS:Y
[2024-05-18 18:07] LABS: Eosinophils # (auto) 0.2 10 ^3/uL (0-0.8); Lymphocytes # (auto) 0.3 10 ^3/uL (0.4-5.4); Monocytes # (auto) 0.3 10 ^3/uL (0-1.3); Neutrophils # (auto) 1.3 10 ^3/uL (1.6-8.6); Red Blood Cells 2.35 10^6/uL (4.5-5.90); White Blood Cell 2.1 10^3/uL (4.4-10.8)
[2024-05-18 18:08] LABS: Basophils # (auto) 0 10 ^3/uL (0-0.2); Basophils % (auto) 1.8 % (0.0-2.0); Eosinophils % (auto) 8.9 % (0.0-7.0); Hematocrit 22.5 % (41.0-53.0); Hemoglobin 7.4 g/dL (13.5-17.5); Lymphocytes % (auto) 14.3 % (10.0-50.0); Mean Corpuscular Hemoglobin 31.6 pg (28.0-32.0); Mean Corpuscular Hgb Conc. 33.1 g/dL (32.0-36.0); Mean Corpuscular Volume 95.5 fL (80.0-100.0); Monocytes % (auto) 12.3 % (0.0-12.0); Neutrophils % (auto) 62.7 % (37.0-80.0); Nucleated Red Blood Cells % 0.2 %; Platelet Count (auto) 105 10^3/uL (140-450); Red Cell Distribution Width 20.3 % (11.8-14.3)
[2024-05-18 18:20] LABS: Sodium 138 mmol/L (136-145)
[2024-05-18 18:22] LABS: Calcium 9.4 mg/dL (8.7-10.4)
[2024-05-18 18:26] LABS: BUN/Creatinine Ratio 7.4 (10.0-20.0)
--- NOTE | 2024-05-18 18:37 | DVH ---
LEFT UPPER EXTREMITY VENOUS ULTRASOUND CLINICAL HISTORY: arm swelling COMPARISON: None TECHNIQUE: Grayscale ultrasound with compression, color Doppler, and spectral Doppler of the deep shakeel ous system of the left upper extremity from the base of the neck through the elbow performed. FINDINGS: Left internal jugular vein: Not visualized. Left subclavian vein: Negative Left axillary vein: Negative. Left brachial veins:Negative. Left basilic vein: Negative Left cephalic vein: Negative. Other: Subcutaneous edema is noted distally. IMPRESSION: Left internal jugular vein not visualized. Internal jugular vein thrombus cannot be excluded. Otherwise no sonographic evidence of deep venous thrombosis in the imaged left upper extremity at thi s time. Subcutaneous edema.
[2024-05-18 18:38] VITALS: PULSE 120; RESP 18; O2SAT 95
[2024-05-18 18:46] LABS: Anion Gap 9.99999 (5-15); Blood Urea Nitrogen 52 mg/dL (9-23); Chloride 88 mmol/L (98-107); Glucose 109 mg/dL (74-106); Potassium 3.1 mmol/L (3.5-5.1)
[2024-05-18 18:50] LABS: Carbon Dioxide > 40 mmol/L (20-31)
[2024-05-18 20:17] LABS: COVID19 ANTIGEN SOFIA FIA NEGATIVE (NEGATIVE); Rapid Influenza A Negative (Negative); Rapid Influenza B Negative (Negative)
[2024-05-18] MEDS ORDERED: NITROGLYCERIN 0.4 MG SL TAB SL PRN (21:15)
[2024-05-18] MEDS ORDERED: MORPHINE SULFATE INJ 2 MG/ml SYRG IV PRN (21:15)
--- NOTE | 2024-05-18 21:21 | DVHHPRES ---
History of Present Illness Resident Creating Document: ROMAINE MCGOVERN RESIDENT History of Present Illness The patient is a 64-year-old male with a significant past medical history including end-stage renal disease (ESRD) on dialysis (Tuesdays, , Saturdays), hyperlipidemia, prostate cancer, congestive heart failure (CHF), and two myocardial infarctions (CT). He presented to the emergency department (ED) via EMS with a chief complaint of shortness of breath (SOB) associated with left arm and hand swelling that began 1-2 days ago. The patient reports waking up today with worsening SOB and states he has missed the last two dialysis sessions.The patient complains of SOB, cough without sputum production, no fever, no chills, and no chest pain. He attributes the progressive worsening of SOB to missing the last two dialysis sessions. During initial evaluation by EMS, patient was saturating SpO2 at 85% on room air, patient does not use oxygen at home. Patient was started on oxygen via nasal cannula and breathing treatment of albuterol was given. Patient also complaining of pain over surgical site for pacemaker, pacemaker placed on 04/24/2024. EMS reports that the patient had an SpO2 of 85% on room air, which increased to the high 90s after an albuterol breathing treatment. He denies any nausea, vomiting, fever, chills, abdominal pain, abdominal swelling, or leg swelling. Past Medical History hypertension, coronary artery disease, CHF, ESRD, anemia of chronic disease, atrial fibrillation Past Surgical History AICD Review of Systems Review of Systems Constitutional: Denies fever, chills, weight loss, or night sweats. Eyes: No visual changes, pain, or redness. ENT: No sore throat, nasal congestion, or ear pain. Cardiovascular: Reports shortness of breath, denies chest pain or palpitations. Respiratory: Complains of shortness of breath and cough without sputum p roduction. Denies wheezing or hemoptysis. Gastrointestinal: Denies nausea, vomiting, abdominal pain, or diarrhea. Genitourinary: No dysuria, hematuria, or urinary frequency. Musculoskeletal: Reports left arm and hand swelling. Denies joint pain or muscle weakness. Neurological: No headaches, dizziness, or syncope. Skin: Pain at the pacemaker surgical site. No rashes or lesions. Psychiatric: No anxiety, depression, or changes in mood. Allergies: Coded Allergies: NO KNOWN ALLERGIES (Unverified , 04/07/24) Medications Current Medications Medications Dose Ordered Sig/Colleen Route Start Time Stop Time Status Last Admin Dose Admin Nitroglycerin 0.4 mg Q5MINP PRN SL 05/18/24 21:15 UNV Morphine Sulfate 2 mg Q30M PRN IV 05/18/24 21:15 UNV Exam Vital Signs Vital Signs Date Time Temp Pulse Resp B/P (MAP) Pulse Ox O2 Delivery O2 Flow Rate FiO2 05/18/24 20:00 129 05/18/24 19:20 Nasal Cannula* 2 28 05/18/24 18:38 18 95 05/18/24 16:43 98.1 110/60 (77) Exam General: The patient is in mild respiratory distress. Vital Signs: Tachycardia, atrial fibrillation with rapid ventricular response (AFib with RVR), normotensive. Respiratory: Diminished breath sounds in the right lower lobe of the lung. Cardiovascular: Tachycardia, AFib with RVR. No murmurs. Extremities: Bilateral 2+ lower extremity edema. Abdomen: Soft, non-tender. Labs/Xrays Labs Test 05/18/24 21:00 05/18/24 18:56 05/18/24 17:58 Range/Units Influenza Type A Antigen Negative Negative Influenza Type B Antigen Negative Negative SARS-CoV-2 Antigen (Rapid) Negative NEGATIVE White Blood Count 2.1 L 4.4-10.8 10^3/uL Red Blood Count 2.35 L 4.5-5.90 10^6/uL Hemoglobin 7.4 L 13.5-17.5 g/dL Hematocrit 22.5 L 41.0-53.0 % Mean Corpuscular Volume 95.5 80.0-100.0 fL Mean Corpuscular Hemoglobin 31.6 28.0-32.0 pg Mean Corpuscular Hemoglobin Concent 33.1 32.0-36.0 g/dL Red Cell Distribution Width 20.3 H 11.8-14.3 % Platelet Count 105 L 140-450 10^3/uL Mean Platelet Volume 6.8 L 6.9-10.8 fL Neutrophils (%) (Auto) 62.7 37.0-80.0 % Lymphocytes (%) (Auto) 14.3 10.0-50.0 % Monocytes (%) (Auto) 12.3 H 0.0-12.0 % Eosinophils (%) (Auto) 8.9 H 0.0-7.0 % Basophils (%) (Auto) 1.8 0.0-2.0 % Neutrophils # (Auto) 1.3 L 1.6-8.6 10 ^3/uL Lymphocytes # (Auto) 0.3 L 0.4-5.4 10 ^3/uL Monocytes # (Auto) 0.3 0-1.3 10 ^3/uL Eosinophils # (Auto) 0.2 0-0.8 10 ^3/uL Basophils # (Auto) 0 0-0.2 10 ^3/uL Nucleated Red Blood Cells 0.2 % Sodium Level 138 136-145 mmol/L Potassium Level 3.1 L 3.5-5.1 mmol/L Chloride Level 88 L 98-107 mmol/L Carbon Dioxide Level > 40 *H 20-31 mmol/L Anion Gap 9.53513 5-15 Blood Urea Nitrogen 52 H 9-23 mg/dL Creatinine 7.06 H 0.700-1.30 mg/dL Glomerular Filtration Rate Calc 8 >90 mL/min BUN/Creatinine Ratio 7.4 L 10.0-20.0 Serum Glucose 109 H 74-106 mg/dL Calcium Level 9.4 8.7-10.4 mg/dL B-Type Natriuretic Peptide 805.81 0-100 pg/mL Assessment/Plan Assessment/Plan Acute hypoxemic respiratory failure Right pleural effusion Possible pneumonia Gram-positive versus Gram-negative End-stage renal disease (ESRD) on dialysis Severe Iron-deficiency anemia Hypertension Coronary artery disease with history of PTCA Acute on chronic CHF systolic versus diastolic Anemia of chronic disease Atrial fibrillation (AFib) with rapid ventricular response Hyperlipidemia Pain at pacemaker surgical site Plan/recommendation Nephrology consultation for hemodialysis Radiology consultation for right-sided thoracentesis IV Lasix 80 mg b.i.d. IV antibiotic with ceftriaxone and azithromycin, follow with sputum culture. Continue monitoring fluid status and adjust as needed. Administer albuterol breathing treatments as required to maintain adequate oxygen saturation. AFib with RVR: Continue home medication amiodarone metoprolol, Eliquis. IV iron 100 mg once daily for five days. Renal diet PUD prophylaxis with Protonix DVT prophylaxis on Eliquis Goals of care discussed greater than 22 minutes, full code. Plan discussed with Dr Parker Plan discussed with: Patient, Other (RN) My Orders Orders - KOSHIYA,ROMAINE RESIDENT Procedure Category Date Status Time Admit ADMIT 05/18/24 Transmitted 21:15 Nitroglycerin PHA 05/18/24 Logged Sublingual (Ntrostat 21:15 Morphine Sulfate PHA 05/18/24 Logged Injection 21:15 Oxygen By Nasal RT 05/18/24 Transmitted Cannula 21:15 Stat Ekg For Chest LETICIA 05/18/24 In Process Pain 21:15 Notify Md Of Changes LETICIA 05/18/24 In Process From Base 21:15 Telecom Engineer For [facility] 05/18/24 In Process 24 Hours 21:15 Emergency Dysrhythmia [facility] 05/18/24 In Process Protocol 21:15 Rhythm Strips Once LETICIA 05/18/24 In Process Every Shift 21:15 PTPTT LAB 05/18/24 Transmitted 21:15 Iron Panel LAB 05/18/24 Transmitted 21:15 Potassium Er Tablet PHA 05/18/24 Logged (Klor-Con Tablet) 21:15 Magnesium LAB 05/18/24 Transmitted 21:15 Furosemide Injection PHA 05/19/24 Transmitted (Lasix Injection) 10:00 Furosemide Injection PHA 05/19/24 Transmitted (Lasix Injection) 06:00 Phosphorus LAB 05/18/24 Transmitted 21:15 Chest Ultrasound US 05/18/24 Transmitted 21:20 Date of Service: May 18, 2024 Billing Provider: HEATHER PARKER MD Common Visit Codes: 27137-BSMHWGL INP/OBS CARE (HIGH) Secondary Visit Codes: 40714-OCZARHUC CARE PLAN 30 MINUTES ROMAINE MCGOVERN RESIDENT May 18, 2024 21:21 HEATHER PARKER MD May 19, 2024 18:48
[2024-05-18 21:46] LABS: Magnesium 2.1 mg/dL (1.6-2.6)
[2024-05-18 21:50] LABS: Phosphorus 5.6 mg/dL (2.4-5.1)
--- NOTE | 2024-05-18 21:59 | DVH ---
Exam: US CHEST ULTRASOUND Clinical History: right pleural effusion Comparison: None Technique: Targeted sonographic evaluation of the right chest was obtained utilizing grayscale and color Doppler imaging. Findings/Impression: Moderate right pleural effusion is seen.
[2024-05-18 22:00] LABS: INR 1.17 (0.9-1.15); Partial Thromboplastin Time 30.8 SEC (24.5-34.5); Prothrombin Time 12.3 sec (9.3-11.8)
[2024-05-18] MEDS: POTASSIUM CHL 20 Meq TABLET PO ONE (22:15)
[2024-05-18] MEDS: METOPROLOL SUCCINATE XL 50 MG TAB PO ONE (22:16)
[2024-05-18] MEDS: AMIODARONE HCL 200 MG TAB PO ONE (22:23)
[2024-05-18] MEDS: APIXABAN 2.5 MG TAB PO SCH (22:23)
[2024-05-18 22:28] LABS: % Iron Saturation 18.2 % (20-55)
[2024-05-19] VITALS (8 sets, daily range): BP systolic 112–177; BP diastolic 57–81; PULSE 60–85; RESP 18–22; TEMP 97.8–98; O2SAT 91–98
[2024-05-19] MEDS: cefTRIAXone 1GM/50ML D5W 50 ML IV ONE (04:52)
[2024-05-19] MEDS: FUROSEMIDE 100 MG/10ML VIAL IV SCH ×2 (05:15→17:30)
[2024-05-19] MEDS: AZITHROMYCIN 500MG/ 250ML 250 ML IV ONE (05:16)
--- NOTE | 2024-05-19 06:26 | DVHINCON2 ---
Date of service: May 19, 2024 Family History: Hypertension G8 MOTHER G8 FATHER Allergies: Coded Allergies: NO KNOWN ALLERGIES (Unverified , 04/07/24) Home Meds Active Scripts Metoprolol Succinate (Toprol Xl) 50 Mg Tab, 25 MG PO DAILY for 30 Days, #15 TAB Prov:MONIQUE MACDONALD BALL MAKER 04/29/24 Amiodarone HCl (Amiodarone HCl) 200 Mg Tab, 400 MG PO DAILY for 30 Days, #60 TAB Prov:MONIQUE MACDONALD BALL MAKER 04/29/24 Digoxin (Lanoxin) 125 Mcg Tab, 0.125 MG PO EOD for 30 Days, #30 TAB Prov:MONIQUE MACDONALD BALL MAKER 04/29/24 Reported Medications Apixaban Base (ELIQUIS) 2.5 Mg Tab, 2.5 MG PO BID for 60 Days, #60 04/09/24 Dapagliflozin Propanediol (Farxiga) 10 Mg Tab, 1 TAB PO DAILY for 30 Days, #30 04/09/24 Aripiprazole (Aripiprazole) 5 Mg Tab, 1 TAB PO DAILY for 30 Days, #30 04/09/24 Current Medications Current Medications Medications (Trade) Dose Ordered Sig/Colleen Route PRN Reason Start Time Stop Time Status Last Admin Nitroglycerin (Ntrostat Sublingual) 0.4 mg Q5MINP PRN SL FOR CHEST PAIN 05/18/24 21:15 Morphine Sulfate 2 mg Q30M PRN IV FOR CHEST PAIN 05/18/24 21:15 Furosemide (Lasix Injection) 80 mg DAILY IV 05/19/24 10:00 05/18/24 21:38 DC Furosemide (Lasix Injection) 80 mg BIDD IV 05/19/24 06:00 05/19/24 05:15 Amiodarone HCl (Cordarone Tablet) 400 mg DAILY PO 05/19/24 10:00 Apixaban (Eliquis) 2.5 mg BID PO 05/18/24 22:00 05/18/24 22:23 Metoprolol Succinate (Toprol Xl) 25 mg DAILY PO 05/19/24 10:00 Patient Own Medication 1 tab DAILY PO 05/19/24 10:00 UNV Sevelamer HCl (Renagel) 800 mg TIDWM PO 05/19/24 08:00 Iron Sucrose 110 ml @ 110 mls/hr DAILY@1200 IV 05/19/24 12:00 05/23/24 12:59 Azithromycin 250 ml @ 125 mls/hr DAILY IV 05/20/24 10:00 Ceftriaxone Sodium 50 ml @ 100 mls/hr DAILY@09 IV 05/20/24 09:00 Vital Signs Vital Signs Date Time Temp Pulse Resp B/P (MAP) Pulse Ox O2 Delivery O2 Flow Rate FiO2 05/19/24 05:15 112/62 05/19/24 05:00 97.8 79 18 98 97.8 05/19/24 01:14 Nasal Cannula* 3 32 Labs/Diagnostic Data Labs Test 05/18/24 21:00 05/18/24 18:56 05/18/24 17:58 Range/Units Phosphorus Level 5.6 H 2.4-5.1 mg/dL Magnesium Level 2.1 1.6-2.6 mg/dL Iron Level 36 L 65-175 ug/dL Total Iron Binding Capacity 198 L 250-425 ug/dL Percent Iron Saturation 18.2 L 20-55 % Ferritin 407.3 H 22-322 ng/mL Ammonia < 10 L 11-32 umol/L Troponin I High Sensitivity 43 </=54 ng/L Influenza Type A Antigen Negative Negative Influenza Type B Antigen Negative Negative SARS-CoV-2 Antigen (Rapid) Negative NEGATIVE White Blood Count 2.1 L 4.4-10.8 10^3/uL Red Blood Count 2.35 L 4.5-5.90 10^6/uL Hemoglobin 7.4 L 13.5-17.5 g/dL Hematocrit 22.5 L 41.0-53.0 % Mean Corpuscular Volume 95.5 80.0-100.0 fL Mean Corpuscular Hemoglobin 31.6 28.0-32.0 pg Mean Corpuscular Hemoglobin Concent 33.1 32.0-36.0 g/dL Red Cell Distribution Width 20.3 H 11.8-14.3 % Platelet Count 105 L 140-450 10^3/uL Mean Platelet Volume 6.8 L 6.9-10.8 fL Neutrophils (%) (Auto) 62.7 37.0-80.0 % Lymphocytes (%) (Auto) 14.3 10.0-50.0 % Monocytes (%) (Auto) 12.3 H 0.0-12.0 % Eosinophils (%) (Auto) 8.9 H 0.0-7.0 % Basophils (%) (Auto) 1.8 0.0-2.0 % Neutrophils # (Auto) 1.3 L 1.6-8.6 10 ^3/uL Lymphocytes # (Auto) 0.3 L 0.4-5.4 10 ^3/uL Monocytes # (Auto) 0.3 0-1.3 10 ^3/uL Eosinophils # (Auto) 0.2 0-0.8 10 ^3/uL Basophils # (Auto) 0 0-0.2 10 ^3/uL Nucleated Red Blood Cells 0.2 % Prothrombin Time 12.3 H 9.3-11.8 sec Prothrombin Time INR 1.17 H 0.9-1.15 Activated Partial Thromboplast Time 30.8 24.5-34.5 SEC Sodium Level 138 136-145 mmol/L Potassium Level 3.1 L 3.5-5.1 mmol/L Chloride Level 88 L 98-107 mmol/L Carbon Dioxide Level > 40 *H 20-31 mmol/L Anion Gap 9.32926 5-15 Blood Urea Nitrogen 52 H 9-23 mg/dL Creatinine 7.06 H 0.700-1.30 mg/dL Glomerular Filtration Rate Calc 8 >90 mL/min BUN/Creatinine Ratio 7.4 L 10.0-20.0 Serum Glucose 109 H 74-106 mg/dL Calcium Level 9.4 8.7-10.4 mg/dL B-Type Natriuretic Peptide 805.81 0-100 pg/mL [facility] MONTANEZ [facility] May 19, 2024 06:26
[2024-05-19] MEDS: SEVELAMER 800 MG TAB PO SCH (08:09)
--- NOTE | 2024-05-19 09:13 | DVHINCON2 ---
Date of service: May 19, 2024 History of Present Illness HPI Patient is a 64-year-old gentleman who presented to the hospital for few days of shortness of breath and left arm swelling. He himself is poor historian. He had missed hemodialysis twice. It seems that EMS found him with oxygen saturation of 85% at home. Since arrival, the patient is found to have pleural effusion. It is of note that the patient did have ICD upgrade to Bi V ICD in April 24, 2024 and never went for follow-up. Patient had been kept on Eliquis/Plavix. Does have history of paroxysmal AFib and old history of PCI. Cardiology is involved for cardiac aspects of care. Home Meds Active Scripts Metoprolol Succinate (Toprol Xl) 50 Mg Tab, 25 MG PO DAILY for 30 Days, #15 TAB Prov:MONIQUE MACDONALD APPELLATE LAW CLERK 04/29/24 Amiodarone HCl (Amiodarone HCl) 200 Mg Tab, 400 MG PO DAILY for 30 Days, #60 TAB Prov:MONIQUE MACDONALD APPELLATE LAW CLERK 04/29/24 Digoxin (Lanoxin) 125 Mcg Tab, 0.125 MG PO EOD for 30 Days, #30 TAB Prov:MONIQUE MACDONALD APPELLATE LAW CLERK 04/29/24 Reported Medications Apixaban Base (ELIQUIS) 2.5 Mg Tab, 2.5 MG PO BID for 60 Days, #60 04/09/24 Dapagliflozin Propanediol (Farxiga) 10 Mg Tab, 1 TAB PO DAILY for 30 Days, #30 04/09/24 Aripiprazole (Aripiprazole) 5 Mg Tab, 1 TAB PO DAILY for 30 Days, #30 04/09/24 Past Medical History Others Past medical history includes end-stage renal disease on hemodialysis, hypertension, hyperlipidemia, old history of prostate cancer, systolic heart failure, old history of myocardial infarction and PCI (reportedly years ago), old history of multiple cardiac ablation (unknown details), history of nonsustained ventricular tachycardia, status post BiV-ICD (Medtronic) of great, old history of GI bleeding, pulmonary hypertension (more likely type 2), 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 Patient Family History: Hypertension G8 MOTHER G8 FATHER Alocohol: None Drugs: None Review of Systems Constitutional: Weakness Pulmonary/Respiratory: Dyspnea All Other Systems 14 point review of system was performed. Relevant findings as per above and as per HPI. Otherwise negative H&P Exam Vital Signs Vital Signs Date Time Temp Pulse Resp B/P (MAP) Pulse Ox O2 Delivery O2 Flow Rate FiO2 05/19/24 08:30 97.9 69 18 124/61 (82) 92 97.9 05/19/24 01:14 Nasal Cannula* 3 32 Eye Exam: bilateral eye PERRL Nasal Exam: Normal inspection Cardiovascular/Chest: Regular rate, Systolic murmur Peripheral Pulses: 2+ carotid (R), 2+ carotid (L), 2+ femoral (R), 2+ femoral (L), 2+ dorsalis pedis (R), 2+ dorsalis pedis (L), 2+ Radial (R) Labs/Xrays Labs Test 05/18/24 21:00 05/18/24 18:56 05/18/24 17:58 Range/Units Phosphorus Level 5.6 H 2.4-5.1 mg/dL Magnesium Level 2.1 1.6-2.6 mg/dL Iron Level 36 L 65-175 ug/dL Total Iron Binding Capacity 198 L 250-425 ug/dL Percent Iron Saturation 18.2 L 20-55 % Ferritin 407.3 H 22-322 ng/mL Ammonia < 10 L 11-32 umol/L Troponin I High Sensitivity 43 </=54 ng/L Influenza Type A Antigen Negative Negative Influenza Type B Antigen Negative Negative SARS-CoV-2 Antigen (Rapid) Negative NEGATIVE White Blood Count 2.1 L 4.4-10.8 10^3/uL Red Blood Count 2.35 L 4.5-5.90 10^6/uL Hemoglobin 7.4 L 13.5-17.5 g/dL Hematocrit 22.5 L 41.0-53.0 % Mean Corpuscular Volume 95.5 80.0-100.0 fL Mean Corpuscular Hemoglobin 31.6 28.0-32.0 pg Mean Corpuscular Hemoglobin Concent 33.1 32.0-36.0 g/dL Red Cell Distribution Width 20.3 H 11.8-14.3 % Platelet Count 105 L 140-450 10^3/uL Mean Platelet Volume 6.8 L 6.9-10.8 fL Neutrophils (%) (Auto) 62.7 37.0-80.0 % Lymphocytes (%) (Auto) 14.3 10.0-50.0 % Monocytes (%) (Auto) 12.3 H 0.0-12.0 % Eosinophils (%) (Auto) 8.9 H 0.0-7.0 % Basophils (%) (Auto) 1.8 0.0-2.0 % Neutrophils # (Auto) 1.3 L 1.6-8.6 10 ^3/uL Lymphocytes # (Auto) 0.3 L 0.4-5.4 10 ^3/uL Monocytes # (Auto) 0.3 0-1.3 10 ^3/uL Eosinophils # (Auto) 0.2 0-0.8 10 ^3/uL Basophils # (Auto) 0 0-0.2 10 ^3/uL Nucleated Red Blood Cells 0.2 % Prothrombin Time 12.3 H 9.3-11.8 sec Prothrombin Time INR 1.17 H 0.9-1.15 Activated Partial Thromboplast Time 30.8 24.5-34.5 SEC Sodium Level 138 136-145 mmol/L Potassium Level 3.1 L 3.5-5.1 mmol/L Chloride Level 88 L 98-107 mmol/L Carbon Dioxide Level > 40 *H 20-31 mmol/L Anion Gap 9.65004 5-15 Blood Urea Nitrogen 52 H 9-23 mg/dL Creatinine 7.06 H 0.700-1.30 mg/dL Glomerular Filtration Rate Calc 8 >90 mL/min BUN/Creatinine Ratio 7.4 L 10.0-20.0 Serum Glucose 109 H 74-106 mg/dL Calcium Level 9.4 8.7-10.4 mg/dL B-Type Natriuretic Peptide 805.81 0-100 pg/mL Assessment/Plan Plan Patient is a 64-year-old gentleman who presented to the hospital for few days of shortness of breath and left arm swelling. He himself is poor historian. He had missed hemodialysis twice. It seems that EMS found him with oxygen saturation of 85% at home. Since arrival, the patient is found to have pleural effusion. It is of note that the patient did have ICD upgrade to BiV-ICD in April 24, 2024 and never went for follow-up. Patient had been kept on Eliquis/Plavix. Does have history of paroxysmal AFib and old history of PCI. Cardiology is involved for cardiac aspects of care. Not in acute distress. Talking slowly. No JVD. Mucosa is pink and wet. No carotid bruit. Lungs: Not using accessory muscles of breathing. Scattered rhonchi in the lungs is heard. Air entry into the right side of the lungs is less. Cardiac: Regular, systolic murmur 3/6 in the apex is heard. The site for ICD implantation looks clean with no erythema/ecchymosis/tenderness. Abdomen is soft. Bowel sound is positive. Extremities reveal 2+ edema bilaterally. AV fistula in the right upper extremity with thrill was observed. 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 Echocardiogram of April 08, 2024 had reported four-chamber dilatation, ejection fraction of 20%, [id number] MR/TR and right ventricular systolic pressure of 75 mm Hg WBC: 2.1 Hemoglobin: 7.4 Platelet: 105 Creatinine: 7.06 Potassium: 3.1 Troponin (high sensitive): 38 - 38 - 43 BNP: 805.81 Ferritin: 407 Chest x-ray revealed: IMPRESSION: 1. Moderate right pleural effusion with atelectasis versus airspace disease in the right lower lung. Venous Doppler of left upper extremity revealed: IMPRESSION: Left internal jugular vein not visualized. Internal jugular vein thrombus cannot be excluded. Otherwise no sonographic evidence of deep venous thrombosis in the imaged left upper extremity at this time. Subcutaneous edema. Chest (right side) ultrasound revealed: Findings/Impression: Moderate right pleural effusion is seen. EKG reveals paced rhythm Tele reveals paced rhythm Patient is a 64-year-old gentleman who presented with shortness of breath and left arm swelling. He is noncompliant with followups. He is noncompliant with hemodialysis. Did have ICD upgrade few weeks back. Had been on Eliquis/Plavix as outpatient. Venous duplex of the left upper extremity was inconclusive to rule out internal jugular vein thrombosis. (discussed with Radiologist: suggestion is for CTA of lungs at this point) Acute on chronic systolic heart failure End-stage renal disease, Noncompliant with medication, followups and hemodialysis Pancytopenia History of GI bleeding Pleural effusion Cardiac suggestion for management: Managed on telemetry Aggressive hemodialysis Follow-up electrolytes and kidney function tests and correct abnormalities Request for D-dimer CTA of lungs (as per Radiologist) Repeat echocardiogram Request for Medtronic interrogation (BiV-ICD) Request for digoxin level Take the margarita out Full anticoagulation for now Pulmonary evaluation for pleural effusion is suggested Nephrology follow-up for end-stage renal disease/hemodialysis is suggested Hematology evaluation for pancytopenia suggested Further evaluation and management depends on the above and clinical course Thank you for consultation A total of 75 minutes was spent reviewing the patient record, examining the patient, making a diagnostic and therapeutic plan, discussing this plan with medical personnel, following up on diagnostic studies and following the patient for clinical stability excluding any and all procedures. At least 50% of this time was spent in direct, [id number] contact. Thank you for allowing me to participate in this patient's care. Further recommendations will depend on patient's clinical course. Please do not hesitate to contact me if you have any questions or concerns. This medical document was created using electronic medical record system with [employer] computerized dictation system. Although this document has been carefully reviewed, there may still be some phonetic and typographical errors. These areas are purely typographical due to the imperfection of the software programs, and do not reflect any compromise in the patient's medical care. Plan discussed with: Patient, Other (nurse) SUSHMA WALKER MD May 19, 2024 09:13
[2024-05-19] MEDS: AMIODARONE HCL 200 MG TAB PO SCH (09:32)
[2024-05-19] MEDS: METOPROLOL SUCCINATE XL 50 MG TAB PO SCH (09:32)
--- NOTE | 2024-05-19 09:52 | DVH ---
XY CHEST PORTABLE, HISTORY: POST THORACENTESIS COMPARISON: XY CHEST PORTABLE on DOS: 05/18/24, XY CHEST PORTABLE on DOS: 04/26/24, XY CHEST PORTABLE o n DOS: 04/25/24 XY CHEST PORTABLE on DOS: 05/18/24, XY CHEST PORTABLE on DOS: 04/26/24, XY CHEST PORTABLE on DOS: 04/25 TECHNICAL DATA: 1 view of the chest was obtained. FINDINGS: Lines and tubes: None Cardiomediastinal silhouette: normal Pulmonary vasculature: normal Lung expansion: normal Lung airspace: normal Lung interstitium: normal Pleura: Decrease in the right pleural effusion. Pneumothorax: no Bones: Unremarkable Other: no IMPRESSION: Decrease in the right pleural effusion. No pneumothorax is seen.
--- NOTE | 2024-05-19 09:53 | DVH ---
US THORACENTESIS HISTORY: PLEURAL EFFUSION PROCEDURE: Informed consent was obtained. The patient was seated on the bed. A limited localization u ltrasound of the right thorax was obtained, and the optimal approach was marked on the skin. The area was prepped with chlorhexidine which was allowed to dry and draped in the usual sterile fashion. Barrie e out was performed. The skin and the soft tissues were infiltrated with 1% lidocaine. A 5.5 Croatian c entesis needle catheter was advanced into right pleural space. Following aspiration of fluid, the cat heter was advanced and the needle removed. About 2400 cc of fluid was drained. Specimen/s was/were se nt for appropriate cultures/cytology/cultures and cytology. No immediate complication was identified. FINDINGS: Large right pleural effusion. Aspirated fluid is clear and serous. IMPRESSION: Successful right thoracentesis with 2.4L removed.
[2024-05-19] MEDS ORDERED: FUROSEMIDE 100 MG/10ML VIAL IV SCH (10:00)
[2024-05-19 10:15] LABS: Potassium 3.9 mmol/L (3.5-5.1)
[2024-05-19 10:16] LABS: Anion Gap 6 (5-15)
[2024-05-19 10:17] LABS: Calcium 9.3 mg/dL (8.7-10.4)
[2024-05-19 10:22] LABS: BUN/Creatinine Ratio 6.2 (10.0-20.0)
[2024-05-19 10:25] LABS: Blood Urea Nitrogen 45 mg/dL (9-23); Chloride 89 mmol/L (98-107); Glucose 110 mg/dL (74-106); Sodium 135 mmol/L (136-145)
[2024-05-19 10:26] LABS: Carbon Dioxide 40 mmol/L (20-31)
[2024-05-19] MEDS ORDERED: IRON SUCROSE COMPLEX 110 ML IV SCH (12:00)
--- NOTE | 2024-05-19 13:40 | DVHPNRES ---
Progress Note Date Seen: May 19, 2024 Resident Creating Document: KEILY GREGG Medical Necessity Reason Pt with a Central, PICC or Fol: No Medical Necessity Reason Patient is 64 years old male with past medical history of ESRD on hemodialysis Saturday//Saturday, history of CAD, history of MIX2 , status post CABG, atrial fibrillation, prostatic carcinoma, congestive heart failure with a reduced ejection fraction, LVEF 20%, on pacemaker placed on 04/24/2024 came with a complaint of worsening shortness of breath and left arm swelling. As per patient patient has been having worsening short of breath for last 2 days with PND and orthopnea. Patient also reported left arm and hand swelling for last 2 days and some dry cough. Patient reported that his oxygen saturation dropped at 85% in room air at home. Patient missed last 2 dialysis because of transportation issue as per patient which caused him all the symptoms do develop. Endorsed some loose motion yesterday 2-3 times, watery, no blood. Patient denied any fever, chest pain, acute dysuria, acute joint pain or redness, dysarthria or change in vision. Initial lab workup revealed patient with leukopenia WBC 2.1, anemia with a hemoglobin 7.4, thrombocytopenia with platelet 105, elevated serum creatinine 7.06, low GFR 8, phosphatase 5.6 mildly elevated, BNP a 2 5 elevated D-dimer 3.87, negative for COVID-19 and influenza type A and B.. CXR revealed- Moderate right pleural effusion with atelectasis versus airspace disease in the right lower lung. Doppler Study of the left upper extremity revealed-Left internal jugular vein not visualized. Internal jugular vein thrombus cannot be excluded. Otherwise no sonographic evidence of deep venous thrombosis in the imaged left upper extremity at this time. Chest ultrasound revealed-Moderate right pleural effusion is seen. PMH-ESRD on hemodialysis Saturday//Saturday, history of CAD, history of MIX2 , status post CABG, atrial fibrillation, prostatic carcinoma, congestive heart failure with a reduced ejection fraction, LVEF 20%, on pacemaker placed on 04/24/2024 PSH- pacemaker placement, fistula Allergy- NKDA Personal History/ Social History- Patient was seen today at the bedside. Cardiovascular- deny acute chest pain Respiratory- denies cough or short of breath or wheezin Gastrointestinal- denies any rectal bleeding, nausea or vomiting Musculoskeletal-denies acute joint swelling or tenderness or redness Neurological- denies acute dysarthria, dysphagia, change in vision Psychiatry- denies depression or SI or HI Skin- denies acute rash or purpura Patient was seen today for clinical evaluation. Labs and chart reviewed. Patient with left arm swelling and bilateral leg swelling, on NC O2. Patient was seen by flue dust laborer. Cardiology recommended CTA of lungs after consulting with radiologist. Ordered hematology consult for pancytopenia. Pending nephrology consult. Ordered social service consult for outpatient transferred for hemodialysis. Patient had Successful right thoracentesis with 2.4L removed. Objective vital signs Vital Sign Date Time Temp Pulse Resp B/P (MAP) Pulse Ox O2 Delivery O2 Flow Rate FiO2 05/19/24 09:32 60 116/54 05/19/24 08:30 97.9 18 92 97.9 05/19/24 08:00 Nasal Cannula* 3 32 Total Intake and Output 05/18/24 05/18/24 05/19/24 15:00 23:00 07:00 Intake Total 50 ml Output Total 100 ml Balance -50 ml medications Current Medications Medications Dose Ordered Sig/Colleen Route Start Time Stop Time Status Last Admin Dose Admin Nitroglycerin 0.4 mg Q5MINP PRN SL 05/18/24 21:15 Morphine Sulfate 2 mg Q30M PRN IV 05/18/24 21:15 Amiodarone HCl 400 mg DAILY PO 05/19/24 10:00 05/19/24 09:32 400 MG Apixaban 2.5 mg BID PO 05/18/24 22:00 05/19/24 09:32 2.5 MG Metoprolol Succinate 25 mg DAILY PO 05/19/24 10:00 05/19/24 09:32 25 MG Patient Own Medication 1 DAILY PO 05/19/24 10:00 Sevelamer HCl 800 mg TIDWM PO 05/19/24 08:00 05/19/24 08:11 800 MG Azithromycin 250 ml @ 125 mls/hr DAILY IV 05/20/24 10:00 Ceftriaxone Sodium 50 ml @ 100 mls/hr DAILY@09 IV 05/20/24 09:00 Furosemide 40 mg BIDD IV 05/19/24 18:00 Examination General examination- awake, alert, oriented, conversant HEENT- PEERLA, no acute nasal discharge Cardiovascular- S1-S2 audible, rate and rhythm regular, Respiratory- + bilateral lung crackles++ Gastrointestinal-nontender, bowel sound+. Nondistended Musculoskeletal-no acute joint swelling or tenderness or redness Lower extremity- + bilateral leg edema + Neurological- cranial nerves intact, no acute dysarthria or dysphagia Psychiatry- denies depression or SI or HI Skin- no acute rash or purpura laboratory and microbiology Laboratory Tests 05/19/24 09:45 Test 05/19/24 09:45 Range/Units Serum Glucose 110 H 74-106 mg/dL Problem List/Assessment/Plan Problem List/Assessment/Plan #Acute hypoxemic respiratory failure likely due to fluid overload due to ESRD/acute on chronicHFrEF #acute on chronicHFrEF #Right pleural effusion #Possible pneumonia Gram-positive versus Gram-negative #End-stage renal disease (ESRD) on dialysis #Pancytopenia #Hypertension #Coronary artery disease with history of PTCA #Anemia of chronic disease #Atrial fibrillation (AFib) with rapid ventricular response #Hyperlipidemia #Pain at pacemaker surgical site #Noncompliant with medication, followups and hemodialysis Patient getting Heme-Onc dialysis today Continue Lasix 40 mg IV b.i.d. Continue ceftriaxone 1 g IV daily Continue azithromycin 500 mg IV daily Metoprolol 25 mg p.o. daily Continue sevelamer 800 mg p.o. t.i.d. Continue Eliquis 2.5 mg p.o. b.i.d. Continue amiodarone 400 mg p.o. daily Goals of care/advance care planning; FULL CODE; discussed with the patient >15 minutes PUD prophylaxis: Famotidine DVT prophylaxis: On Eliquis Plan discussed with Dr. Sue, nursing staff, patient Total time spent on patient evaluation, chart review, assessment and plan, discussion discussion >30 minutes Plan discussed with: Patient Plan discussed with: Patient, Other (RN) My Orders My Orders Orders - KEILY GREGG RESIDENT Procedure Category Date Status Time Furosemide Injection PHA 05/19/24 In Process (Lasix Injection) 18:00 Drug Screen LAB 05/19/24 Logged 09:02 * Opal Polisher CONS 05/19/24 Transmitted Consult Date of Service: May 19, 2024 Billing Provider: JUANITO SUE MD Common Visit Codes: 89741-[id number] INP/OBS CARE(HIGH) Secondary Visit Codes: 65309-QMSVOCYE CARE PLAN 30 MINUTES KEILY GREGG May 19, 2024 13:40 JUANITO SUE MD May 19, 2024 20:38
[2024-05-19 14:48] LABS: Body Fluid Polymorphonuclear 30 % (0-25); Body Fluid Red Blood Cells 1400 CUMM (0-2000); Body Fluid White Blood Cells 147 CUMM (0-200)
--- NOTE | 2024-05-19 15:15 | DVH ---
CTA CHEST INDICATION: R/O CLOTS TECHNIQUE: Multidetector CTA of the chest was performed of the chest with 100 cc of intravenous contr ast. PULMONARY ANGIOGRAPHY PROTOCOL was utilized using a bolus-tracking technique centered on the pete n pulmonary artery. Axial, coronal and sagittal multiplanar and MIP reformats were performed. Radiation Dose Information: CT Dose: CTDI volume is 20.72 mGy. Dose-length product is 667.58 mGy*cm The dose indicators for CT are the volume Computed Tomography (CT) Dose Index (CTDIvol) and the Dose Length Product (DLP), and are measured in units of mGy and mGy-cm, respectively. These indicators are not patient dose, but values generated from the CT scanner acquisition factors. The report includes radiation exposure data for exposures received during this examination. Findings: Pulmonary artery: There is no evidence of a pulmonary arterial filling defect to suggest pulmonary e mbolism. The main pulmonary artery demonstrates normal caliber. Lungs/Pleura: There is large right pleural effusion with atelectasis versus airspace disease in the right lower lobe and right middle lobe. There is small left pleural effusion with likely atelectasis left lower lobe. There are mild upper lobe centrilobular emphysematous changes in the lungs. Heart/Vascular Structures: There is cardiomegaly. There are calcified atherosclerotic changes in the coronary arteries and thoracic aorta. Lymph Nodes: There are several nonspecific prominent right paratracheal mediastinal lymph nodes jerome uring up to 1.5 cm.. Additional scattered subcentimeter mediastinal lymph nodes are seen. There is n o hilar or axillary lymphadenopathy. Musculoskeletal: No acute osseous abnormality. Upper abdomen: Limited portions of the upper abdomen appears grossly unremarkable. IMPRESSION: 1. There is no evidence of pulmonary embolism. 2. Large right pleural effusion with atelectasis versus airspace disease in the right lower and midd le lobes. 3. Several nonspecific prominent right paratracheal mediastinal lymph nodes may be reactive. 4. Cardiomegaly. HS:Y
[2024-05-19 16:23] LABS: Basophils # (auto) 0.1 10 ^3/uL (0-0.2); Basophils % (auto) 1.5 % (0.0-2.0); Eosinophils # (auto) 0.3 10 ^3/uL (0-0.8); Eosinophils % (auto) 8.5 % (0.0-7.0); Hemoglobin 8.1 g/dL (13.5-17.5); Lymphocytes # (auto) 0.3 10 ^3/uL (0.4-5.4); Lymphocytes % (auto) 7.8 % (10.0-50.0); Mean Corpuscular Hemoglobin 31.1 pg (28.0-32.0); Mean Corpuscular Hgb Conc. 32.5 g/dL (32.0-36.0); Mean Corpuscular Volume 95.7 fL (80.0-100.0); Monocytes # (auto) 0.4 10 ^3/uL (0-1.3); Monocytes % (auto) 10.7 % (0.0-12.0); Neutrophils # (auto) 2.9 10 ^3/uL (1.6-8.6); Neutrophils % (auto) 71.5 % (37.0-80.0); Nucleated Red Blood Cells % 0.5 %; Platelet Count (auto) 86 10^3/uL (140-450); Red Blood Cells 2.61 10^6/uL (4.5-5.90)
[2024-05-19 16:24] LABS: Red Cell Distribution Width 20.2 % (11.8-14.3)
[2024-05-19 16:59] LABS: Anisocytosis Slight; Platelet Estimate Decreased
[2024-05-19] MEDS: FAMOTIDINE (10MG/ML) 2ML VL IV ONE (17:00)
--- NOTE | 2024-05-19 18:47 | DVHINCON2 ---
Date of service: May 19, 2024 Reason for Consultation ESRD History of Present Illness 64 y Male with hypertension, coronary artery disease, CHF, ESRD, anemia of chronic disease, atrial fibrillation presented with chief complaints of shortness of breath Patient says he missed dialysis last dialysis was on last Saturday because of transportation issues, he goes to dialysis in [place] Past Medical History As per HPI Past Surgical History As per HPI Allergies: Coded Allergies: NO KNOWN ALLERGIES (Unverified , 04/07/24) Home Meds Active Scripts Metoprolol Succinate (Toprol Xl) 50 Mg Tab, 25 MG PO DAILY for 30 Days, #15 TAB Prov:MONIQUE MACDONALD PROCESS MACHINE OPERATOR 04/29/24 Amiodarone HCl (Amiodarone HCl) 200 Mg Tab, 400 MG PO DAILY for 30 Days, #60 TAB Prov:MONIQUE MACDONALD PROCESS MACHINE OPERATOR 04/29/24 Digoxin (Lanoxin) 125 Mcg Tab, 0.125 MG PO EOD for 30 Days, #30 TAB Prov:MONIQUE MACDONALD PROCESS MACHINE OPERATOR 04/29/24 Reported Medications Apixaban Base (ELIQUIS) 2.5 Mg Tab, 2.5 MG PO BID for 60 Days, #60 04/09/24 Dapagliflozin Propanediol (Farxiga) 10 Mg Tab, 1 TAB PO DAILY for 30 Days, #30 04/09/24 Aripiprazole (Aripiprazole) 5 Mg Tab, 1 TAB PO DAILY for 30 Days, #30 04/09/24 Current Medications Current Medications Medications (Trade) Dose Ordered Sig/Colleen Route PRN Reason Start Time Stop Time Status Last Admin Nitroglycerin (Ntrostat Sublingual) 0.4 mg Q5MINP PRN SL FOR CHEST PAIN 05/18/24 21:15 Morphine Sulfate 2 mg Q30M PRN IV FOR CHEST PAIN 05/18/24 21:15 Furosemide (Lasix Injection) 80 mg DAILY IV 05/19/24 10:00 05/18/24 21:38 DC Furosemide (Lasix Injection) 80 mg BIDD IV 05/19/24 06:00 05/19/24 09:02 DC 05/19/24 05:15 Amiodarone HCl (Cordarone Tablet) 400 mg DAILY PO 05/19/24 10:00 05/19/24 09:32 Apixaban (Eliquis) 2.5 mg BID PO 05/18/24 22:00 05/19/24 09:32 Metoprolol Succinate (Toprol Xl) 25 mg DAILY PO 05/19/24 10:00 05/19/24 09:32 Patient Own Medication 1 DAILY PO 05/19/24 10:00 Sevelamer HCl (Renagel) 800 mg TIDWM PO 05/19/24 08:00 05/19/24 08:11 Iron Sucrose 110 ml @ 110 mls/hr DAILY@1200 IV 05/19/24 12:00 05/19/24 09:03 DC Azithromycin 250 ml @ 125 mls/hr DAILY IV 05/20/24 10:00 Ceftriaxone Sodium 50 ml @ 100 mls/hr DAILY@09 IV 05/20/24 09:00 Furosemide (Lasix Injection) 40 mg BIDD IV 05/19/24 18:00 Famotidine (Pepcid Injection) 20 mg DAILY IV 05/20/24 10:00 Family History: Hypertension G8 MOTHER G8 FATHER Review of Systems As per HPI H&P Exam Vital Signs/I&O Vital Sign Date Time Temp Pulse Resp B/P (MAP) Pulse Ox O2 Delivery O2 Flow Rate FiO2 05/19/24 16:21 97.9 74 19 119/72 (88) 94 97.9 05/19/24 08:00 Nasal Cannula* 3 32 Intake and Output 05/18/24 05/19/24 19:00 07:00 Intake Total 50 ml Output Total 100 ml Balance -50 ml IV Total 50 ml Output Urine Total 100 ml Physical Exam General-not in any distress HEENT-normocephalic, no icterus, no pallor, neck supple Respiratory-fair air entry bilateral, no rhonchi, no wheeze [id number] heard, no murmurs appreciated Abdominal-soft, nontender, nondistended Musculoskeletal-+ pedal edema, no calf tenderness Genitourinary-deferred Neuro-awake alert oriented x3, Psychiatric-not agitated, cooperative, Labs/Diagnostic Data Labs/Diagnostic Data Laboratory Tests Test 05/19/24 13:35 05/19/24 10:25 05/19/24 09:45 05/18/24 21:00 Range/Units White Blood Count 4.0 #L 4.4-10.8 10^3/uL Red Blood Count 2.61 L 4.5-5.90 10^6/uL Hemoglobin 8.1 L 13.5-17.5 g/dL Hematocrit 25.0 #L 41.0-53.0 % Mean Corpuscular Volume 95.7 80.0-100.0 fL Mean Corpuscular Hemoglobin 31.1 28.0-32.0 pg Mean Corpuscular Hemoglobin Concent 32.5 32.0-36.0 g/dL Red Cell Distribution Width 20.2 H 11.8-14.3 % Platelet Count 86 L 140-450 10^3/uL Mean Platelet Volume 7.8 6.9-10.8 fL Neutrophils (%) (Auto) 71.5 37.0-80.0 % Lymphocytes (%) (Auto) 7.8 L 10.0-50.0 % Monocytes (%) (Auto) 10.7 0.0-12.0 % Eosinophils (%) (Auto) 8.5 H 0.0-7.0 % Basophils (%) (Auto) 1.5 0.0-2.0 % Neutrophils # (Auto) 2.9 1.6-8.6 10 ^3/uL Lymphocytes # (Auto) 0.3 L 0.4-5.4 10 ^3/uL Monocytes # (Auto) 0.4 0-1.3 10 ^3/uL Eosinophils # (Auto) 0.3 0-0.8 10 ^3/uL Basophils # (Auto) 0.1 0-0.2 10 ^3/uL Nucleated Red Blood Cells 0.5 % Platelet Estimate Decreased Clumped Platelets Few Anisocytosis (manual) Slight Body Fluid Source Pleural fluid Body Fluid pH 9.0 Body Fluid WBC (Manual) 147 0-200 CUMM Body Fluid RBC (Manual) 1400 0-2000 CUMM Body Fluid Mononuclear Cells 70 % Body Fluid Polymorphonuclear Cells 30 H 0-25 % D-Dimer, Quantitative 3.87 H 0.0-0.49 mg/L FEU Sodium Level 135 L 136-145 mmol/L Potassium Level 3.9 3.5-5.1 mmol/L Chloride Level 89 L 98-107 mmol/L Carbon Dioxide Level 40 H 20-31 mmol/L Anion Gap 6 5-15 Blood Urea Nitrogen 45 H 9-23 mg/dL Creatinine 7.24 H 0.700-1.30 mg/dL Glomerular Filtration Rate Calc 8 >90 mL/min BUN/Creatinine Ratio 6.2 L 10.0-20.0 Serum Glucose 110 H 74-106 mg/dL Calcium Level 9.3 8.7-10.4 mg/dL Lactate Dehydrogenase 252 H 120-246 U/L Digoxin Level < 0.14 L 0.8-2 ng/mL Plasma/Serum Blood Alcohol 3.5 <10 mg/dL Phosphorus Level 5.6 H 2.4-5.1 mg/dL Magnesium Level 2.1 1.6-2.6 mg/dL Iron Level 36 L 65-175 ug/dL Total Iron Binding Capacity 198 L 250-425 ug/dL Percent Iron Saturation 18.2 L 20-55 % Ferritin 407.3 H 22-322 ng/mL Ammonia < 10 L 11-32 umol/L Troponin I High Sensitivity 43 </=54 ng/L Test 05/18/24 18:56 05/18/24 18:51 05/18/24 17:58 Range/Units Influenza Type A Antigen Negative Negative Influenza Type B Antigen Negative Negative SARS-CoV-2 Antigen (Rapid) Negative NEGATIVE Troponin I High Sensitivity 38 38 </=54 ng/L White Blood Count 2.1 L 4.4-10.8 10^3/uL Red Blood Count 2.35 L 4.5-5.90 10^6/uL Hemoglobin 7.4 L 13.5-17.5 g/dL Hematocrit 22.5 L 41.0-53.0 % Mean Corpuscular Volume 95.5 80.0-100.0 fL Mean Corpuscular Hemoglobin 31.6 28.0-32.0 pg Mean Corpuscular Hemoglobin Concent 33.1 32.0-36.0 g/dL Red Cell Distribution Width 20.3 H 11.8-14.3 % Platelet Count 105 L 140-450 10^3/uL Mean Platelet Volume 6.8 L 6.9-10.8 fL Neutrophils (%) (Auto) 62.7 37.0-80.0 % Lymphocytes (%) (Auto) 14.3 10.0-50.0 % Monocytes (%) (Auto) 12.3 H 0.0-12.0 % Eosinophils (%) (Auto) 8.9 H 0.0-7.0 % Basophils (%) (Auto) 1.8 0.0-2.0 % Neutrophils # (Auto) 1.3 L 1.6-8.6 10 ^3/uL Lymphocytes # (Auto) 0.3 L 0.4-5.4 10 ^3/uL Monocytes # (Auto) 0.3 0-1.3 10 ^3/uL Eosinophils # (Auto) 0.2 0-0.8 10 ^3/uL Basophils # (Auto) 0 0-0.2 10 ^3/uL Nucleated Red Blood Cells 0.2 % Prothrombin Time 12.3 H 9.3-11.8 sec Prothrombin Time INR 1.17 H 0.9-1.15 Activated Partial Thromboplast Time 30.8 24.5-34.5 SEC Sodium Level 138 136-145 mmol/L Potassium Level 3.1 L 3.5-5.1 mmol/L Chloride Level 88 L 98-107 mmol/L Carbon Dioxide Level > 40 *H 20-31 mmol/L Anion Gap 9.39724 5-15 Blood Urea Nitrogen 52 H 9-23 mg/dL Creatinine 7.06 H 0.700-1.30 mg/dL Glomerular Filtration Rate Calc 8 >90 mL/min BUN/Creatinine Ratio 7.4 L 10.0-20.0 Serum Glucose 109 H 74-106 mg/dL Calcium Level 9.4 8.7-10.4 mg/dL B-Type Natriuretic Peptide 805.81 0-100 pg/mL Microbiology Date/Time Source Procedure Growth Status 05/19/24 03:30 Nose MRSA Screen - Final Complete Assessment ESRD on hemodialysis Missed HD--goes to [place] Congestive heart failure status post AICD ANemia recs Hemodialysis today UF as tolerated IV iron and epogen We will follow Plan discussed with: Patient ADITYA DUNCAN MD May 19, 2024 18:47
[2024-05-19] MEDS: EPOETIN ALFA-EPBX 4,000 UNIT/ML VIAL SC ONE (21:30)
--- NOTE | 2024-05-19 22:52 | DVHINCON2 ---
Date of service: May 19, 2024 Referring Physician Jet Gregg MD Reason for Consultation Acute hypoxic respiratory failure and pleural effusion History of Present Illness A 64-year-old man with past medical history including ESRD, on dialysis T-T-S, hyperlipidemia, prostate cancer, congestive heart failure, and two myocardial infarctions. He presented to the ED via EMS on 05/18/24 with c/o shortness of breath associated with left arm and hand swelling that began 1-2 days prior to presentation. Pt awoke on day of presentation with worsening SOB and states he has missed the last two dialysis sessions. The patient also has cough without sputum production. No fever, no chills, and no chest pain. During initial evaluation by EMS, patient was saturating SpO2 at 85% on room air, he does not use oxygen at home. Patient was started on oxygen via nasal cannula and breathing treatment of albuterol was given, sats improved to high 90s. Patient also complaining of pain over surgical site for pacemaker, pacemaker placed on 04/24/2024. Patient was admitted for further care and pulmonary consultation is requested for evaluation and management of acute hypoxic respiratory failure and pleural effusion. Review of Systems: 14-point review of systems negative unless otherwise noted above. Past Medical History: Hypertension, coronary artery disease, CHF, ESRD, anemia of chronic disease, atrial fibrillation Past Surgical History: AICD. Medications: Reviewed. Allergies: No known drug allergies. Family History: Hypertension. Social History: Nonsmoker. No alcohol or illicit drug use. Family History: Hypertension G8 MOTHER G8 FATHER Allergies: Coded Allergies: NO KNOWN ALLERGIES (Unverified , 04/07/24) Home Meds Active Scripts Famotidine (PEPCID TABLET) 20 Mg Tb, 1 TAB PO BID for 30 Days, #60 TAB 5 Refills Prov:JET GREGG RESIDENT 05/21/24 Sacubitril-Valsartan (Entresto 24-26 mg) 1 Tab Tab, 1 TAB PO BID for 30 Days, #60 TAB Prov:JET GREGG RESIDENT 05/21/24 Sevelamer Carbonate (Renvela) 800 Mg Tab, 1 TAB PO TID for 30 Days, #90 TAB 3 Refills Prov:JET GREGG RESIDENT 05/21/24 Carvedilol (Carvedilol) 6.25 Mg Tab, 1 TAB PO BID for 30 Days, #60 TAB 1 Refill Prov:JET GREGG RESIDENT 05/21/24 Furosemide (Lasix) 20 Mg Tb, 40 MG PO DAILY for 30 Days, #30 TAB [facility] 05/21/24 Doxycycline (Monohydrate) (Doxycycline) 100 Mg Cap, 100 MG PO BID for 5 Days, #10 CAP [facility] 05/21/24 Metoprolol Succinate (Toprol Xl) 50 Mg Tab, 25 MG PO DAILY for 30 Days, #15 TAB Prov:MONIQUE MACDONALD FISCAL ACCOUNTING CLERK 04/29/24 Amiodarone HCl (Amiodarone HCl) 200 Mg Tab, 400 MG PO DAILY for 30 Days, #60 TAB Prov:MONIQUE MACDONALD FISCAL ACCOUNTING CLERK 04/29/24 Digoxin (Lanoxin) 125 Mcg Tab, 0.125 MG PO EOD for 30 Days, #30 TAB Prov:MONIQUE MACDONALD FISCAL ACCOUNTING CLERK 04/29/24 Reported Medications Apixaban Base (ELIQUIS) 2.5 Mg Tab, 2.5 MG PO BID for 60 Days, #60 04/09/24 Dapagliflozin Propanediol (Farxiga) 10 Mg Tab, 1 TAB PO DAILY for 30 Days, #30 04/09/24 Aripiprazole (Aripiprazole) 5 Mg Tab, 1 TAB PO DAILY for 30 Days, #30 04/09/24 Current Medications Current Medications Medications (Trade) Dose Ordered Sig/Colleen Route PRN Reason Start Time Stop Time Status Last Admin Furosemide (Lasix Injection) 80 mg DAILY IV 05/19/24 10:00 05/18/24 21:38 DC Furosemide (Lasix Injection) 80 mg BIDD IV 05/19/24 06:00 05/19/24 09:02 DC 05/19/24 05:15 Amiodarone HCl (Cordarone Tablet) 400 mg DAILY PO 05/19/24 10:00 05/19/24 09:32 Metoprolol Succinate (Toprol Xl) 25 mg DAILY PO 05/19/24 10:00 05/19/24 09:32 Patient Own Medication 1 DAILY PO 05/19/24 10:00 Sevelamer HCl (Renagel) 800 mg TIDWM PO 05/19/24 08:00 05/19/24 08:11 Iron Sucrose 110 ml @ 110 mls/hr DAILY@1200 IV 05/19/24 12:00 05/19/24 09:03 DC Azithromycin 250 ml @ 125 mls/hr DAILY IV 05/20/24 10:00 Ceftriaxone Sodium 50 ml @ 100 mls/hr DAILY@09 IV 05/20/24 09:00 Furosemide (Lasix Injection) 40 mg BIDD IV 05/19/24 18:00 Famotidine (Pepcid Injection) 20 mg DAILY IV 05/20/24 10:00 Vital Signs Vital Signs Date Time Temp Pulse Resp B/P (MAP) Pulse Ox O2 Delivery O2 Flow Rate FiO2 05/19/24 21:00 98.0 66 19 177/57 (97) 92 98.0 05/19/24 19:59 Nasal Cannula* 3 32 Physical Exam Gen.: Patient lying in bed in no apparent distress. On supplemental oxygen. Head: Normocephalic, atraumatic. Eyes: EOMI/PERRLA. Ears: Normal hearing. Normal anatomy. Neck/trachea: Trachea midline, supple. Nose: Normal external anatomy. Mouth: Moist mucous membranes. Chest: Decreased air entry bilaterally. No wheezing or rhonchi. Cardiovascular: Positive S1, positive S2. Regular rate and rhythm. Abdomen: Positive bowel sounds in all 4 quadrants. Soft, non-tender, non- distended. : Deferred. Rectal: Deferred. Skin: Warm, dry. Intact. Extremities: 2+ radial pulses bilaterally. No lower extremity edema. Neuro: Awake, alert, oriented x3. No gross motor or sensory deficits. Cranial nerves II through XII intact. Gait not assessed. Labs/Diagnostic Data Labs Test 05/19/24 13:35 05/19/24 10:25 05/19/24 09:45 05/18/24 21:00 Range/Units White Blood Count 4.0 #L 4.4-10.8 10^3/uL Red Blood Count 2.61 L 4.5-5.90 10^6/uL Hemoglobin 8.1 L 13.5-17.5 g/dL Hematocrit 25.0 #L 41.0-53.0 % Mean Corpuscular Volume 95.7 80.0-100.0 fL Mean Corpuscular Hemoglobin 31.1 28.0-32.0 pg Mean Corpuscular Hemoglobin Concent 32.5 32.0-36.0 g/dL Red Cell Distribution Width 20.2 H 11.8-14.3 % Platelet Count 86 L 140-450 10^3/uL Mean Platelet Volume 7.8 6.9-10.8 fL Neutrophils (%) (Auto) 71.5 37.0-80.0 % Lymphocytes (%) (Auto) 7.8 L 10.0-50.0 % Monocytes (%) (Auto) 10.7 0.0-12.0 % Eosinophils (%) (Auto) 8.5 H 0.0-7.0 % Basophils (%) (Auto) 1.5 0.0-2.0 % Neutrophils # (Auto) 2.9 1.6-8.6 10 ^3/uL Lymphocytes # (Auto) 0.3 L 0.4-5.4 10 ^3/uL Monocytes # (Auto) 0.4 0-1.3 10 ^3/uL Eosinophils # (Auto) 0.3 0-0.8 10 ^3/uL Basophils # (Auto) 0.1 0-0.2 10 ^3/uL Nucleated Red Blood Cells 0.5 % Platelet Estimate Decreased Clumped Platelets Few Anisocytosis (manual) Slight Body Fluid Source Pleural fluid Body Fluid pH 9.0 Body Fluid WBC (Manual) 147 0-200 CUMM Body Fluid RBC (Manual) 1400 0-2000 CUMM Body Fluid Mononuclear Cells 70 % Body Fluid Polymorphonuclear Cells 30 H 0-25 % D-Dimer, Quantitative 3.87 H 0.0-0.49 mg/L FEU Sodium Level 135 L 136-145 mmol/L Potassium Level 3.9 3.5-5.1 mmol/L Chloride Level 89 L 98-107 mmol/L Carbon Dioxide Level 40 H 20-31 mmol/L Anion Gap 6 5-15 Blood Urea Nitrogen 45 H 9-23 mg/dL Creatinine 7.24 H 0.700-1.30 mg/dL Glomerular Filtration Rate Calc 8 >90 mL/min BUN/Creatinine Ratio 6.2 L 10.0-20.0 Serum Glucose 110 H 74-106 mg/dL Calcium Level 9.3 8.7-10.4 mg/dL Lactate Dehydrogenase 252 H 120-246 U/L Digoxin Level < 0.14 L 0.8-2 ng/mL Plasma/Serum Blood Alcohol 3.5 <10 mg/dL Phosphorus Level 5.6 H 2.4-5.1 mg/dL Magnesium Level 2.1 1.6-2.6 mg/dL Iron Level 36 L 65-175 ug/dL Total Iron Binding Capacity 198 L 250-425 ug/dL Percent Iron Saturation 18.2 L 20-55 % Ferritin 407.3 H 22-322 ng/mL Ammonia < 10 L 11-32 umol/L Troponin I High Sensitivity 43 </=54 ng/L Test 05/18/24 18:56 05/18/24 17:58 Range/Units Influenza Type A Antigen Negative Negative Influenza Type B Antigen Negative Negative SARS-CoV-2 Antigen (Rapid) Negative NEGATIVE Prothrombin Time 12.3 H 9.3-11.8 sec Prothrombin Time INR 1.17 H 0.9-1.15 Activated Partial Thromboplast Time 30.8 24.5-34.5 SEC B-Type Natriuretic Peptide 805.81 0-100 pg/mL Microbiology Date/Time Source Procedure Growth Status 05/19/24 03:30 Nose MRSA Screen - Final Complete Assessment Impression: Acute hypoxic respiratory failure Dependence on supplemental oxygen Pleural effusion, right Atelectasis Acute on chronic systolic CHF ESRD, on hemodialysis Pancytopenia Mediastinal lymphadenopathy Plan: Supplemental oxygen 3 LPM NC Titrate to keep O2 sats above 92%. Taper O2 as tolerated. CTA demonstrates large right pleural effusion and atelectasis. S/p right thoracentesis with 2.4 L removed from right pleural space. Continue antibiotics Incentive spirometry On Eliquis Diurese w/ Lasix as tolerated Monitor renal function. Monitor electrolytes. Supplement as necessary. Monitor ins and outs. HD per Nephrology DVT prophylaxis. Prognosis: Poor given patient's multiple co-morbidities. Rest of plan per hospitalist and other consultants. Thank you Dr. Gregg, for allowing me to participate in this patient's care. Further recommendations will depend on the patient's clinical course. Please do not hesitate to contact me if you have any questions or concerns. This medical document was created using an electronic medical record system with [employer] system. Although these documentations are being carefully reviewed, there may still be some phonetic and typographical changes. The errors are purely typographical, due to imperfection on the software program, and do not reflect any compromise in the patient's medical care. Plan discussed with: Patient, Other (MITCHEL Jha/MD Gregg) DEVAUGHN LEONG MD May 19, 2024 22:52
[2024-05-20] VITALS (8 sets, daily range): BP systolic 93–135; BP diastolic 39–76; PULSE 60–69; RESP 17–21; TEMP 97.5–98.6; O2SAT 92–100
--- NOTE | 2024-05-20 06:02 | DVHSR ---
APPROVED REPORT EXAM: Two-dimensional and M-mode echocardiogram with Doppler and color Doppler. Blood Pressure: 124/61 mmHg INDICATION Follow up post pacemaker Surgery/Intervention Pacemaker: RISK FACTORS Height: 6'2", Weight: 185 DIMENSIONS LVDd4.7 (3.8-5.7cm)LA (2D)4.7 (1.9-4.0cm)Aortic Root3.7 (2.0-3.7cm) LVDs4.5 (2.5-4.0cm)LA (MM) (1.9-4.0cm)Aortic Cusp Exc2.2 (1.5-2.0cm) EF (%) 15.0 (55-70%)Rt. Atrium5.8 (1.9-4.0cm)Asc. Aorta3.9 cm IVSd2.1 (0.7-1.1cm)RV (D)4.8 (1.8-2.4cm) PWd1.0 (0.7-1.1cm) Mitral Valve MitralMitral Stenosis E wave0.72m/sMV Mean GR.mmHg E/A ratio0.02D MVAcm2 Aortic Valve Aortic ValveAortic Stenosis V10.61m/Marcelino Mean GR.4mmHg V21.30m/Marcelino Peak GR.7mmHg LVOT Diameter2.5 (1.8-2.4cm)Doppler AVA2.30cm2 AI P 1/2 Uwij001.17ms Pulmonic Valve V20.63m/s Tricuspid Valve TR Velocity4.03m/s [id number] Conclusion Four-chamber dilatation was observed. Left ventricle: Dilated left ventricle. Mild concentric left ventricular hypertrophy was seen. LVE F was around 35%. Diffuse hypokinesis with regional variation was observed. D shaped septum is in f avor of pulmonary hypertension. Right ventricle was dilated with reduced systolic function. Both atria were dilated. Pacing wire in right-sided chambers was observed. 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 Aortic valve was trileaflet. There was no aortic stenosis. [id number] aortic regurgitation/in sufficiency was observed. Mild mitral regurgitation was observed. Moderate tricuspid regurgitation was observed. Mild pulmonary valve insufficiency was observed. Small pericardial effusion was observed. IVC was dilated with reduced respiratory variation. Right ventricular systolic pressure was assessed at 80 mm Hg.
--- NOTE | 2024-05-20 06:15 | DVHPN2 ---
Progress Note - Dictate Date Seen: May 20, 2024 Medical Necessity Reason Pt with a Central, PICC or Fol: No vital signs Vital Sign Date Time Temp Pulse Resp B/P (MAP) Pulse Ox O2 Delivery O2 Flow Rate FiO2 05/20/24 05:13 135/70 05/20/24 05:00 97.7 64 18 96 97.7 05/19/24 19:59 Nasal Cannula* 3 32 Total Intake and Output 05/19/24 05/19/24 05/20/24 15:00 23:00 07:00 Intake Total 200 ml 200 ml Output Total 500 ml 150 ml Balance -300 ml 50 ml medications Current Medications Medications Dose Ordered Sig/Colleen Route Start Time Stop Time Status Last Admin Dose Admin Nitroglycerin 0.4 mg Q5MINP PRN SL 05/18/24 21:15 Morphine Sulfate 2 mg Q30M PRN IV 05/18/24 21:15 Amiodarone HCl 400 mg DAILY PO 05/19/24 10:00 05/19/24 09:32 400 MG Apixaban 2.5 mg BID PO 05/18/24 22:00 05/19/24 21:29 2.5 MG Metoprolol Succinate 25 mg DAILY PO 05/19/24 10:00 05/19/24 09:32 25 MG Patient Own Medication 1 DAILY PO 05/19/24 10:00 Sevelamer HCl 800 mg TIDWM PO 05/19/24 08:00 05/19/24 08:11 800 MG Azithromycin 250 ml @ 125 mls/hr DAILY IV 05/20/24 10:00 Ceftriaxone Sodium 50 ml @ 100 mls/hr DAILY@09 IV 05/20/24 09:00 Furosemide 40 mg BIDD IV 05/19/24 18:00 05/20/24 05:13 40 MG Famotidine 20 mg DAILY IV 05/20/24 10:00 laboratory and microbiology Laboratory Tests 05/19/24 13:35 05/19/24 09:45 Test 05/19/24 09:45 Range/Units Serum Glucose 110 H 74-106 mg/dL Assessment/Plan Patient is a 64-year-old gentleman who presented to the hospital for few days of shortness of breath and left arm swelling. He himself is poor historian. He had missed hemodialysis twice. It seems that EMS found him with oxygen saturation of 85% at home. Since arrival, the patient is found to have pleural effusion. It is of note that the patient did have ICD upgrade to BiV-ICD in April 24, 2024 and never went for follow-up. Patient had been kept on Eliquis/Plavix. Does have history of paroxysmal AFib and old history of PCI. Cardiology is involved for cardiac aspects of care. Not in acute distress. Talking slowly. No JVD. Mucosa is pink and wet. No carotid bruit. Lungs: Not using accessory muscles of breathing. Scattered rhonchi in the lungs is heard. Air entry into the right side of the lungs is less. Cardiac: Regular, systolic murmur 3/6 in the apex is heard. The site for ICD implantation looks clean with no erythema/ecchymosis/tenderness. Abdomen is soft. Bowel sound is positive. Extremities reveal 2+ edema bilaterally. AV fistula in the right upper extremity with thrill was observed. 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 Echocardiogram of April 08, 2024 had reported four-chamber dilatation, ejection fraction of 20%, [id number] MR/TR and right ventricular systolic pressure of 75 mm Hg WBC: 2.1 - 4.0 Hemoglobin: 7.4 - 8.1 Platelet: 105 - 86 Creatinine: 7.06 - 7.24 Potassium: 3.1 - 3.9 Troponin (high sensitive): 38 - 38 - 43 BNP: 805.81 Ferritin: 407 D-dimer: 3.87 Digoxin: <0.14 Chest x-ray revealed: IMPRESSION: 1. Moderate right pleural effusion with atelectasis versus airspace disease in the right lower lung. Venous Doppler of left upper extremity revealed: IMPRESSION: Left internal jugular vein not visualized. Internal jugular vein thrombus cannot be excluded. Otherwise no sonographic evidence of deep venous thrombosis in the imaged left upper extremity at this time. Subcutaneous edema. Chest (right side) ultrasound revealed: Findings/Impression: Moderate right pleural effusion is seen. US thoracentesis (performed by Radiology): IMPRESSION: Successful right thoracentesis with 2.4L removed. Repeat chest xry revealed: IMPRESSION: Decrease in the right pleural effusion. No pneumothorax is seen. CTA of chest revealed: Findings: Pulmonary artery: There is no evidence of a pulmonary arterial filling defect to suggest pulmonary embolism. The main pulmonary artery demonstrates normal caliber. Lungs/Pleura: There is large right pleural effusion with atelectasis versus airspace disease in the right lower lobe and right middle lobe. There is small left pleural effusion with likely atelectasis left lower lobe. There are mild upper lobe centrilobular emphysematous changes in the lungs. Heart/Vascular Structures: There is cardiomegaly. There are calcified atherosclerotic changes in the coronary arteries and thoracic aorta. Lymph Nodes: There are several nonspecific prominent right paratracheal mediastinal lymph nodes measuring up to 1.5 cm.. Additional scattered subcentimeter mediastinal lymph nodes are seen. There is no hilar or axillary lymphadenopathy. Musculoskeletal: No acute osseous abnormality. Upper abdomen: Limited portions of the upper abdomen appears grossly unremarkable. IMPRESSION: 1. There is no evidence of pulmonary embolism. 2. Large right pleural effusion with atelectasis versus airspace disease in the right lower and middle lobes. 3. Several nonspecific prominent right paratracheal mediastinal lymph nodes may be reactive. 4. Cardiomegaly. EKG reveals paced rhythm Tele reveals paced rhythm Echocardiogram revealed: Four-chamber dilatation was observed. Left ventricle: Dilated left ventricle. Mild concentric left ventricular hypertrophy was seen. LVEF was around 35%. Diffuse hypokinesis with regional variation was observed. D shaped septum is in favor of pulmonary hypertension. Right ventricle was dilated with reduced systolic function. Both atria were dilated. Pacing wire in right-sided chambers was observed. 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 Aortic valve was trileaflet. There was no aortic stenosis. [id number] aortic regurgitation/insufficiency was observed. Mild mitral regurgitation was observed. Moderate tricuspid regurgitation was observed. Mild pulmonary valve insufficiency was observed. Small pericardial effusion was observed. IVC was dilated with reduced respiratory variation. Right ventricular systolic pressure was assessed at 80 mm Hg. Patient is a 64-year-old gentleman who presented with shortness of breath and left arm swelling. He is noncompliant with followups. He is noncompliant with hemodialysis. Did have ICD upgrade few weeks back. Had been on Eliquis/Plavix as outpatient. Venous duplex of the left upper extremity was inconclusive to rule out internal jugular vein thrombosis. (discussed with Radiologist: suggestion is for CTA of lungs at this point) Acute on chronic systolic heart failure End-stage renal disease, Noncompliant with medication, followups and hemodialysis Pancytopenia History of GI bleeding Pleural effusion s/p Thoracentesis Cardiac suggestion for management: Managed on telemetry Aggressive hemodialysis Follow-up electrolytes and kidney function tests and correct abnormalities Awaiting Medtr[employer] interrogation (BiV-ICD) Full anticoagulation (On Eliquis) Keep left upper ext elevated/ (use sling). Change Metoprolol Succinate to Carvedilol: 6.25 BID Add Entresto Nephrology follow-up for end-stage renal disease/hemodialysis Hematology evaluation for pancytopenia suggested Further evaluation and management depends on the above and clinical course A total of 55 minutes was spent reviewing the patient record, examining the patient, making a diagnostic and therapeutic plan, discussing this plan with medical personnel, following up on diagnostic studies and following the patient for clinical stability excluding any and all procedures. At least 50% of this time was spent in direct, [id number] contact. Thank you for allowing me to participate in this patient's care. Further recommendations will depend on patient's clinical course. Please do not hesitate to contact me if you have any questions or concerns. This medical document was created using electronic medical record system with [employer] computerized dictation system. Although this document has been carefully reviewed, there may still be some phonetic and typographical errors. These areas are purely typographical due to the imperfection of the software programs, and do not reflect any compromise in the patient's medical care. Plan discussed with: Patient, Other (nurse) SUSHMA AWLKER MD May 20, 2024 06:15
[2024-05-20 07:25] LABS: Anion Gap 7 (5-15); Calcium 9.1 mg/dL (8.7-10.4); Potassium 4.7 mmol/L (3.5-5.1)
[2024-05-20 07:31] LABS: BUN/Creatinine Ratio 4.5 (10.0-20.0); Glucose 75 mg/dL (74-106); Magnesium 2.4 mg/dL (1.6-2.6)
[2024-05-20 07:33] LABS: Blood Urea Nitrogen 26 mg/dL (9-23); Carbon Dioxide 32 mmol/L (20-31); Chloride 96 mmol/L (98-107); Sodium 135 mmol/L (136-145)
[2024-05-20 07:38] LABS: Phosphorus 5.5 mg/dL (2.4-5.1)
[2024-05-20 07:43] LABS: Hematocrit 25.8 % (41.0-53.0); Hemoglobin 7.9 g/dL (13.5-17.5); Mean Corpuscular Hemoglobin 31.3 pg (28.0-32.0); Mean Corpuscular Hgb Conc. 30.7 g/dL (32.0-36.0); Mean Corpuscular Volume 101.9 fL (80.0-100.0); Platelet Count (auto) 99 10^3/uL (140-450); Red Blood Cells 2.53 10^6/uL (4.5-5.90)
[2024-05-20 07:44] LABS: Band Neutrophils % (manual) 0; Basophils % (manual) 0 (0.0-2.0); Blast Cells 0; Metamyelocytes % 0; Myelocytes % 0; Promyelocytes % 0; Reactive Lymphocytes 0; Red Cell Distribution Width 20.7 % (11.8-14.3)
[2024-05-20] MEDS: SACUBITRIL-VALSARTAN 24mg/26mg TAB PO SCH (08:18)
[2024-05-20] MEDS: APIXABAN 2.5 MG TAB PO SCH (08:19)
[2024-05-20] MEDS: CARVEDILOL 3.125 MG TAB PO SCH (08:20)
[2024-05-20] MEDS: cefTRIAXone 1GM/50ML D5W 50 ML IV SCH (08:20)
[2024-05-20] MEDS: FAMOTIDINE (10MG/ML) 2ML VL IV SCH (08:21)
[2024-05-20 08:44] LABS: Eosinophils % (manual) 19 (0-7); Lymphocytes % (manual) 19 (10.0-50.0); Monocytes % (manual) 1 (0-12)
[2024-05-20 08:45] LABS: Platelet Estimate Decrea
--- NOTE | 2024-05-20 08:53 | DVHINCON2 ---
Date of service: May 20, [address] Silvana Booth Reason for Consultation Pancytopenia History of Present Illness 64 years old gentleman who gives a history of prostate cancer nearly a year back and received radiation therapy and some Lupron like injections couple of them nearly a year back and says that his cancer has been doing well He is not aware of any hematological issues. History of congestive heart failure, ID, two stents, hypertension, AFib and three cardiac ablations and has been on Eliquis. Has a history of renal failure and is on dialysis for the last seven years. He is admitted with shortness of breath left arm swelling and pleural effusion Venous Doppler on the left upper extremity reported that the internal jugular vein thrombus could not be excluded otherwise no blood clot in the left upper extremity Chest x-ray showed moderate right pleural effusion with atelectasis Right thoracentesis done and drained out 2.4 L of clear and serous fluid The patient is feeling better CT chest angiogram 1. There is no evidence of pulmonary embolism. 2. Large right pleural effusion with atelectasis versus airspace disease in the right lower and middle lobes. 3. Several nonspecific prominent right paratracheal mediastinal lymph nodes may be reactive. 4. Cardiomegaly. No previous history of any blood clots or hematological issues. No history of any blood transfusions. He said he had a colonoscope done two years back Past Medical History Hypertension, congestive failure coronary artery disease and ID and two stents CKD on dialysis for the last 70 years Prostate cancer Cardiac Ablation for AFib x3 Family History: Hypertension G8 MOTHER G8 FATHER Family History Unremarkable see or hematological disorders Social History No smoking, drinking or drugs Patient is by himself Allergies: Coded Allergies: NO KNOWN ALLERGIES (Unverified , 04/07/24) Home Meds Active Scripts Metoprolol Succinate (Toprol Xl) 50 Mg Tab, 25 MG PO DAILY for 30 Days, #15 TAB Prov:MONIQUE MACDONALD BUILDING CARPENTER HELPER 04/29/24 Amiodarone HCl (Amiodarone HCl) 200 Mg Tab, 400 MG PO DAILY for 30 Days, #60 TAB Prov:MONIQUE MACDONALD BUILDING CARPENTER HELPER 04/29/24 Digoxin (Lanoxin) 125 Mcg Tab, 0.125 MG PO EOD for 30 Days, #30 TAB Prov:MONIQUE MACDONALD BUILDING CARPENTER HELPER 04/29/24 Reported Medications Apixaban Base (ELIQUIS) 2.5 Mg Tab, 2.5 MG PO BID for 60 Days, #60 04/09/24 Dapagliflozin Propanediol (Farxiga) 10 Mg Tab, 1 TAB PO DAILY for 30 Days, #30 04/09/24 Aripiprazole (Aripiprazole) 5 Mg Tab, 1 TAB PO DAILY for 30 Days, #30 04/09/24 Current Medications Current Medications Medications (Trade) Dose Ordered Sig/Colleen Route PRN Reason Start Time Stop Time Status Last Admin Furosemide (Lasix Injection) 80 mg DAILY IV 05/19/24 10:00 05/18/24 21:38 DC Amiodarone HCl (Cordarone Tablet) 400 mg DAILY PO 05/19/24 10:00 05/20/24 08:18 Metoprolol Succinate (Toprol Xl) 25 mg DAILY PO 05/19/24 10:00 05/20/24 06:57 DC 05/19/24 09:32 Patient Own Medication 1 DAILY PO 05/19/24 10:00 Iron Sucrose 110 ml @ 110 mls/hr DAILY@1200 IV 05/19/24 12:00 05/19/24 09:03 DC Azithromycin 250 ml @ 125 mls/hr DAILY IV 05/20/24 10:00 Ceftriaxone Sodium 50 ml @ 100 mls/hr DAILY@09 IV 05/20/24 09:00 05/20/24 08:20 Furosemide (Lasix Injection) 40 mg BIDD IV 05/19/24 18:00 05/20/24 05:13 Famotidine (Pepcid Injection) 20 mg DAILY IV 05/20/24 10:00 05/20/24 08:21 Apixaban (Eliquis) 5 mg BID PO 05/20/24 10:00 05/20/24 08:19 Carvedilol (Coreg Tablet) 6.25 mg Q12HR PO 05/20/24 10:00 05/20/24 08:20 Sacubitril/ Valsartan (Entresto 24-26 Mg tab) 1 tab BID PO 05/20/24 10:00 05/20/24 08:18 Vital Signs Vital Signs Date Time Temp Pulse Resp B/P (MAP) Pulse Ox O2 Delivery O2 Flow Rate FiO2 05/20/24 08:20 69 133/61 05/20/24 05:00 97.7 18 96 97.7 05/19/24 19:59 Nasal Cannula* 3 32 Physical Exam Moderately built and nourished, in no acute distress, alert and oriented. No jaundice Head and neck: Unremarkable for any masses or neck nodes. No conjunctival or mucosal hemorrhage Lungs: Diminished breath sounds in the right lung Cardiovascular: S1-S2 heard well Abdomen: No organomegaly, tenderness or ascites. Bowel sounds are present. Extremities: No clubbing edema cyanosis or calf tenderness. Left arm is swollen and slightly sensitive Skin: Unremarkable for petechia purpura ecchymosis Lymphadenopathy: None Neurological exam: No focal deficit Labs/Diagnostic Data Labs Test 05/20/24 05:42 05/19/24 13:35 05/19/24 10:25 05/19/24 09:45 Range/Units White Blood Count 2.0 L 4.4-10.8 10^3/uL Red Blood Count 2.53 L 4.5-5.90 10^6/uL Hemoglobin 7.9 L 13.5-17.5 g/dL Hematocrit 25.8 L 41.0-53.0 % Mean Corpuscular Volume 101.9 #H 80.0-100.0 fL Mean Corpuscular Hemoglobin 31.3 28.0-32.0 pg Mean Corpuscular Hemoglobin Concent 30.7 L 32.0-36.0 g/dL Red Cell Distribution Width 20.7 H 11.8-14.3 % Platelet Count 99 L 140-450 10^3/uL Mean Platelet Volume 7.3 6.9-10.8 fL Neutrophils (%) (Auto) 37.0-80.0 % Lymphocytes (%) (Auto) 10.0-50.0 % Monocytes (%) (Auto) 0.0-12.0 % Eosinophils (%) (Auto) 0.0-7.0 % Basophils (%) (Auto) 0.0-2.0 % Neutrophils # (Auto) 1.6-8.6 10 ^3/uL Lymphocytes # (Auto) 0.4-5.4 10 ^3/uL Monocytes # (Auto) 0-1.3 10 ^3/uL Sodium Level 135 L 136-145 mmol/L Potassium Level 4.7 3.5-5.1 mmol/L Chloride Level 96 L 98-107 mmol/L Carbon Dioxide Level 32 H 20-31 mmol/L Anion Gap 7 5-15 Blood Urea Nitrogen 26 #H 9-23 mg/dL Creatinine 5.82 H 0.700-1.30 mg/dL Glomerular Filtration Rate Calc 10 >90 mL/min BUN/Creatinine Ratio 4.5 L 10.0-20.0 Serum Glucose 75 74-106 mg/dL Calcium Level 9.1 8.7-10.4 mg/dL Phosphorus Level 5.5 H 2.4-5.1 mg/dL Magnesium Level 2.4 1.6-2.6 mg/dL Eosinophils # (Auto) 0.3 0-0.8 10 ^3/uL Basophils # (Auto) 0.1 0-0.2 10 ^3/uL Nucleated Red Blood Cells 0.5 % Clumped Platelets Few Anisocytosis (manual) Slight Body Fluid Source Pleural fluid Body Fluid pH 9.0 Body Fluid WBC (Manual) 147 0-200 CUMM Body Fluid RBC (Manual) 1400 0-2000 CUMM Body Fluid Mononuclear Cells 70 % Body Fluid Polymorphonuclear Cells 30 H 0-25 % D-Dimer, Quantitative 3.87 H 0.0-0.49 mg/L FEU Lactate Dehydrogenase 252 H 120-246 U/L Digoxin Level < 0.14 L 0.8-2 ng/mL Plasma/Serum Blood Alcohol 3.5 <10 mg/dL Test 05/18/24 21:00 05/18/24 18:56 05/18/24 17:58 Range/Units Iron Level 36 L 65-175 ug/dL Total Iron Binding Capacity 198 L 250-425 ug/dL Percent Iron Saturation 18.2 L 20-55 % Ferritin 407.3 H 22-322 ng/mL Ammonia < 10 L 11-32 umol/L Troponin I High Sensitivity 43 </=54 ng/L Influenza Type A Antigen Negative Negative Influenza Type B Antigen Negative Negative SARS-CoV-2 Antigen (Rapid) Negative NEGATIVE Prothrombin Time 12.3 H 9.3-11.8 sec Prothrombin Time INR 1.17 H 0.9-1.15 Activated Partial Thromboplast Time 30.8 24.5-34.5 SEC B-Type Natriuretic Peptide 805.81 0-100 pg/mL Microbiology Date/Time Source Procedure Growth Status 05/19/24 03:30 Nose MRSA Screen - Final Complete Assessment 1. Pancytopenia, the etiology to be determined, serum ferritin 407, LDH 252, serum iron 36 saturation 18.2 TIBC 198, normal liver functions. PSA less than 0.1, pleural fluid showed LDH 105 total protein in the fluid was 3.4. Hepatitis a IgM, B surface antigen, B core IgM antibody, C antibody was negative COVID and influenza a and B was negative 2. Renal failure on dialysis for the last seven years 3. Congestive heart failure coronary artery disease and two stents and ID 4.hypertension 5.right pleural effusion status post thoracentesis clear serous fluid taken out 6. History of prostate cancer in 2023 and received radiation therapy and outlined with [facility] and had some Lupron like injections also Plan/Recommendation Check B12, retic count, direct Rojas, JAMAAL and double-stranded DNA Bone marrow aspiration biopsy to be done by the IR and sent for pathology flow cytometry and cytogenetics Try to keep the hemoglobin over seven Plan discussed with: Patient REFUGIOMANISHA Bazan MD May 20, 2024 08:53
[2024-05-20] MEDS: IOHEXOL 350 MG/ML 100ML IJ ONE ×2 (10:09)
[2024-05-20] MEDS: SODIUM CHL 0.9% 1000 ML BAG XX ONE (10:10)
[2024-05-20] MEDS: fentaNYL CITRATE 100 MCG/2 ML VL IV ONE (10:45)
[2024-05-20] MEDS: MIDAZOLAM HCL 2MG/2ML 2ml VIAL (1mg/ml) IV ONE (10:45)
[2024-05-20] MEDS: LIDOCAINE 2%HCL (LOCAL ANESTH.) INJ 10ml MDV ONE (10:45)
[2024-05-20] MEDS: MIDAZOLAM HCL 2MG/2ML 2ml VIAL (1mg/ml) ONE (11:25)
[2024-05-20] MEDS: fentaNYL CITRATE 100 MCG/2 ML VL ONE (11:25)
--- NOTE | 2024-05-20 12:04 | DVH ---
CT PELVIS WO CONTRAST HISTORY: BONE MARROW BX HISTORY: BONE MARROW BX COMPARISON: None PROCEDURE: Informed consent and time-out was performed before the procedure. Conscious sedation was p erformed by the interventional radiology nurse. The pelvic bone was marked, sterilized, draped, and l ocally anesthetized using approximately 8 ml of 1% lidocaine. Axial CT images were used for localizat ion. A 11 gauge gDine Bone Biopsy kit was used to take 13 mL aspirate and 1 core. The biopsy need le was then removed. No immediate complications noted. FINDINGS: Axial CT images demonstrates biopsy needle within the posterior pelvic bone. IMPRESSION: CT-guided biopsy of the posterior pelvic bone.
--- NOTE | 2024-05-20 12:04 | DVH ---
CT CT GUIDANCE FOR NEEDLE PLACEME, HISTORY: BONE MARROW BX COMPARISON: None PROCEDURE: Informed consent and time-out was performed before the procedure. Conscious sedation was p erformed by the interventional radiology nurse. The pelvic bone was marked, sterilized, draped, and l ocally anesthetized using approximately 8 ml of 1% lidocaine. Axial CT images were used for localizat ion. A 11 gauge Exie Bone Biopsy kit was used to take 13 mL aspirate and 1 core. The biopsy need le was then removed. No immediate complications noted. FINDINGS: Axial CT images demonstrates biopsy needle within the posterior pelvic bone. IMPRESSION: CT-guided biopsy of the posterior pelvic bone.
[2024-05-20] MEDS: AZITHROMYCIN 500MG/ 250ML 250 ML IV SCH (12:16)
[2024-05-20 13:06] LABS: Protein, Body Fluid 3.6 g/dL (.)
--- NOTE | 2024-05-20 14:45 | DVHPNRES ---
Progress Note Date Seen: May 20, 2024 Resident Creating Document: KEILY GREGG RESIDENT Medical Necessity Reason Pt with a Central, PICC or Fol: No Subjective Review of Systems Patient is 64 years old male with past medical history of ESRD on hemodialysis Saturday//Saturday, history of CAD, history of MIX2 , status post CABG, atrial fibrillation, prostatic carcinoma, congestive heart failure with a reduced ejection fraction, LVEF 20%, on pacemaker placed on 04/24/2024 came with a complaint of worsening shortness of breath and left arm swelling. As per patient patient has been having worsening short of breath for last 2 days with PND and orthopnea. Patient also reported left arm and hand swelling for last 2 days and some dry cough. Patient reported that his oxygen saturation dropped at 85% in room air at home. Patient missed last 2 dialysis because of transportation issue as per patient which caused him all the symptoms do develop. Endorsed some loose motion yesterday 2-3 times, watery, no blood. Patient denied any fever, chest pain, acute dysuria, acute joint pain or redness, dysarthria or change in vision. Initial lab workup revealed patient with leukopenia WBC 2.1, anemia with a hemoglobin 7.4, thrombocytopenia with platelet 105, elevated serum creatinine 7.06, low GFR 8, phosphatase 5.6 mildly elevated, BNP a 2 5 elevated D-dimer 3.87, negative for COVID-19 and influenza type A and B.. CXR revealed- Moderate right pleural effusion with atelectasis versus airspace disease in the right lower lung. Doppler Study of the left upper extremity revealed-Left internal jugular vein not visualized. Internal jugular vein thrombus cannot be excluded. Otherwise no sonographic evidence of deep venous thrombosis in the imaged left upper extremity at this time. Chest ultrasound revealed-Moderate right pleural effusion is seen. CT angio of chest revealed- no evidence of pulmonary embolism. Large right pleural effusion with atelectasis versus airspace disease in the right lower and middle lobes. Several nonspecific prominent right paratracheal mediastinal lymph nodes may be reactive. Cardiomegaly. PMH-ESRD on hemodialysis Saturday//Saturday, history of CAD, history of MIX2 , status post CABG, atrial fibrillation, prostatic carcinoma, congestive heart failure with a reduced ejection fraction, LVEF 20%, on pacemaker placed on 04/24/2024 PSH- pacemaker placement, fistula Allergy- NKDA Personal History/ Social History- Patient was seen today at the bedside. Cardiovascular- deny acute chest pain Respiratory- denies cough or short of breath or wheezin Gastrointestinal- denies any rectal bleeding, nausea or vomiting Musculoskeletal-denies acute joint swelling or tenderness or redness Neurological- denies acute dysarthria, dysphagia, change in vision Psychiatry- denies depression or SI or HI Skin- denies acute rash or purpura Patient was seen today for clinical evaluation. Labs and chart reviewed. Patient reported feeling better today. Patient still on NC O2 2 liter/minute. Patient with a still leg edema and bilateral pulmonary edema, bilateral lung crackles on auscultation. Was seen by homicide squad captain, exhaust worker, customer support manager and hemato oncologist. Reviewed and appreciated. And had hemodialysis yesterday. Patient was followed by hemato oncologist, Recommended to Check B12, retic count, direct Rojas, JAMAAL and double-stranded DNA. Bone marrow aspiration biopsy to be done by the IR and sent for pathology flow cytometry and cytogenetics. Try to keep the hemoglobin over seven. Revenue Cycle Administrator discontinued metoprolol and ordered carvedilol 6.25 mg p.o. b.i.d. and ordered Entresto. CT angio negative for pulmonary embolism. CT-guided biopsy of the posterior pelvic bone was done today. Objective vital signs Vital Sign Date Time Temp Pulse Resp B/P (MAP) Pulse Ox O2 Delivery O2 Flow Rate FiO2 05/20/24 12:49 98.4 60 19 93/39 (57) 92 98.4 05/20/24 08:00 Nasal Cannula* 3 32 Total Intake and Output 05/19/24 05/19/24 05/20/24 15:00 23:00 07:00 Intake Total 200 ml 200 ml Output Total 500 ml 150 ml Balance -300 ml 50 ml medications Current Medications Medications Dose Ordered Sig/Colleen Route Start Time Stop Time Status Last Admin Dose Admin Nitroglycerin 0.4 mg Q5MINP PRN SL 05/18/24 21:15 Morphine Sulfate 2 mg Q30M PRN IV 05/18/24 21:15 Amiodarone HCl 400 mg DAILY PO 05/19/24 10:00 05/20/24 08:18 400 MG Patient Own Medication 1 DAILY PO 05/19/24 10:00 Sevelamer HCl 800 mg TIDWM PO 05/19/24 08:00 05/20/24 12:01 800 MG Azithromycin 250 ml @ 125 mls/hr DAILY IV 05/20/24 10:00 05/20/24 12:16 125 MLS/HR Ceftriaxone Sodium 50 ml @ 100 mls/hr DAILY@09 IV 05/20/24 09:00 05/20/24 08:20 100 MLS/HR Furosemide 40 mg BIDD IV 05/19/24 18:00 05/20/24 05:13 40 MG Famotidine 20 mg DAILY IV 05/20/24 10:00 05/20/24 08:21 20 MG Apixaban 5 mg BID PO 05/20/24 10:00 05/20/24 08:19 5 MG Carvedilol 6.25 mg Q12HR PO 05/20/24 10:00 05/20/24 08:20 6.25 MG Sacubitril/ Valsartan 1 tab BID PO 05/20/24 10:00 05/20/24 08:18 1 TAB Examination General examination- awake, alert, oriented, conversant HEENT- PEERLA, no acute nasal discharge Cardiovascular- S1-S2 audible, rate and rhythm regular, Respiratory- + bilateral lung crackles++ Gastrointestinal-nontender, bowel sound+. Nondistended Musculoskeletal-no acute joint swelling or tenderness or redness Lower extremity- + bilateral leg edema + Neurological- cranial nerves intact, no acute dysarthria or dysphagia Psychiatry- denies depression or SI or HI Skin- no acute rash or purpura laboratory and microbiology Laboratory Tests 05/20/24 05:42 Test 05/20/24 05:42 Range/Units Serum Glucose 75 74-106 mg/dL Microbiology Date/Time Source Procedure Growth Status 05/19/24 10:25 Pleural Fluid Gram Stain - Final Resulted 05/19/24 10:25 Pleural Fluid Aerobic Culture - Preliminary Resulted 05/19/24 03:30 Nose MRSA Screen - Final Complete Problem List/Assessment/Plan Problem List/Assessment/Plan #Acute hypoxemic respiratory failure likely due to fluid overload due to ESRD/acute on chronicHFrEF #acute on chronicHFrEF #Right pleural effusion #Possible pneumonia Gram-positive versus Gram-negative #End-stage renal disease (ESRD) on dialysis #Pancytopenia #Hypertension #Coronary artery disease with history of PTCA #Anemia of chronic disease #Atrial fibrillation (AFib) with rapid ventricular response #Hyperlipidemia #Pain at pacemaker surgical site #Noncompliant with medication, followups and hemodialysis # prominent right paratracheal mediastinal lymph nodes may be reactive. # Cardiomegaly. -hemato oncologist, Recommended to Check B12, retic count, direct Rojas, JAMAAL and double-stranded DNA. Bone marrow aspiration biopsy to be done by the IR and sent for pathology flow cytometry and cytogenetics. Try to keep the hemoglobin over seven -. Revenue Cycle Administrator discontinued metoprolol and ordered carvedilol 6.25 mg p.o. b.i.d. and ordered Entresto. CT angio of chest revealed- no evidence of pulmonary embolism. Large right pleural effusion with atelectasis versus airspace disease in the right lower and middle lobes. Several nonspecific prominent right paratracheal mediastinal lymph nodes may be reactive. Cardiomegaly. CT-guided biopsy of the posterior pelvic bone was done today on 05/20/2024 Continue Lasix 40 mg IV b.i.d. Continue ceftriaxone 1 g IV daily Continue azithromycin 500 mg IV daily Carvedilol 6.25 mg p.o. b.i.d. Entresto 24-26 mg 1 tab p.o. b.i.d. Continue sevelamer 800 mg p.o. t.i.d. Continue Eliquis 2.5 mg p.o. b.i.d. Continue amiodarone 400 mg p.o. daily Goals of care/advance care planning; FULL CODE; discussed with the patient >15 minutes PUD prophylaxis: Famotidine DVT prophylaxis: On Eliquis Plan discussed with Dr. Sue, nursing staff, patient Total time spent on patient evaluation, chart review, assessment and plan, discussion discussion >30 minutes Plan discussed with: Patient Plan discussed with: Patient, Other (RN) My Orders My Orders Orders - KEILY GREGG Procedure Category Date Status Time Ct Guidance For CT 05/20/24 Resulted Needle Placeme 10:[address] 05/20/24 Resulted 10:41 Date of Service: May 20, 2024 Billing Provider: JUANITO SUE MD Common Visit Codes: [id number] INP/OBS CARE(HIGH) KEILY GREGG May 20, 2024 14:45 JUANITO SUE MD May 20, 2024 20:15
--- NOTE | 2024-05-20 17:21 | DVHPN2 ---
Progress Note Date Seen: May 20, 2024 Medical Necessity Reason Pt with a Central, PICC or Fol: No Subjective Patient reports: No new complaints Review of Systems: Deferred Objective vital signs Vital Sign Date Time Temp Pulse Resp B/P (MAP) Pulse Ox O2 Delivery O2 Flow Rate FiO2 05/20/24 16:34 98.6 60 21 108/66 (80) 96 98.6 05/20/24 08:00 Nasal Cannula* 3 32 Total Intake and Output 05/19/24 05/19/24 05/20/24 15:00 23:00 07:00 Intake Total 200 ml 200 ml Output Total 500 ml 150 ml Balance -300 ml 50 ml medications Current Medications Medications Dose Ordered Sig/Colleen Route Start Time Stop Time Status Last Admin Dose Admin Nitroglycerin 0.4 mg Q5MINP PRN SL 05/18/24 21:15 Morphine Sulfate 2 mg Q30M PRN IV 05/18/24 21:15 Amiodarone HCl 400 mg DAILY PO 05/19/24 10:00 05/20/24 08:18 400 MG Patient Own Medication 1 DAILY PO 05/19/24 10:00 Sevelamer HCl 800 mg TIDWM PO 05/19/24 08:00 05/20/24 12:01 800 MG Azithromycin 250 ml @ 125 mls/hr DAILY IV 05/20/24 10:00 05/20/24 12:16 125 MLS/HR Ceftriaxone Sodium 50 ml @ 100 mls/hr DAILY@09 IV 05/20/24 09:00 05/20/24 08:20 100 MLS/HR Furosemide 40 mg BIDD IV 05/19/24 18:00 05/20/24 05:13 40 MG Famotidine 20 mg DAILY IV 05/20/24 10:00 05/20/24 08:21 20 MG Apixaban 5 mg BID PO 05/20/24 10:00 05/20/24 08:19 5 MG Carvedilol 6.25 mg Q12HR PO 05/20/24 10:00 05/20/24 08:20 6.25 MG Sacubitril/ Valsartan 1 tab BID PO 05/20/24 10:00 05/20/24 08:18 1 TAB laboratory and microbiology Laboratory Tests 05/20/24 05:42 Test 05/20/24 05:42 Range/Units Serum Glucose 75 74-106 mg/dL Microbiology Date/Time Source Procedure Growth Status 05/19/24 10:25 Pleural Fluid Gram Stain - Final Resulted 05/19/24 10:25 Pleural Fluid Aerobic Culture - Preliminary Resulted 05/19/24 03:30 Nose MRSA Screen - Final Complete Problem List/Assessment/Plan Problem List/Assessment/Plan ESRD on hemodialysis Missed HD--goes [facility] Congestive heart failure status post AICD ANemia recs Hemodialysis tomorrow UF as tolerated IV iron and epogen We will follow Plan discussed with: Patient ADITYA DUNCAN MD May 20, 2024 17:21
--- NOTE | 2024-05-20 22:10 | DVHPN2 ---
Progress Note - Dictate Date Seen: May 20, 2024 Medical Necessity Reason Pt with a Central, PICC or Fol: No Subjective Patient seen and examined at bedside. Remains on supplemental oxygen Overnight events reviewed. vital signs Vital Sign Date Time Temp Pulse Resp B/P (MAP) Pulse Ox O2 Delivery O2 Flow Rate FiO2 05/20/24 21:47 63 128/71 05/20/24 21:07 97.8 17 97 97.8 05/20/24 08:00 Nasal Cannula* 3 32 Total Intake and Output 05/19/24 05/19/24 05/20/24 15:00 23:00 07:00 Intake Total 200 ml 200 ml Output Total 500 ml 150 ml Balance -300 ml 50 ml medications Current Medications Medications Dose Ordered Sig/Colleen Route Start Time Stop Time Status Last Admin Dose Admin Nitroglycerin 0.4 mg Q5MINP PRN SL 05/18/24 21:15 Morphine Sulfate 2 mg Q30M PRN IV 05/18/24 21:15 Amiodarone HCl 400 mg DAILY PO 05/19/24 10:00 05/20/24 08:18 400 MG Patient Own Medication 1 DAILY PO 05/19/24 10:00 Sevelamer HCl 800 mg TIDWM PO 05/19/24 08:00 05/20/24 18:04 800 MG Azithromycin 250 ml @ 125 mls/hr DAILY IV 05/20/24 10:00 05/20/24 12:16 125 MLS/HR Ceftriaxone Sodium 50 ml @ 100 mls/hr DAILY@09 IV 05/20/24 09:00 05/20/24 08:20 100 MLS/HR Furosemide 40 mg BIDD IV 05/19/24 18:00 05/20/24 18:05 40 MG Famotidine 20 mg DAILY IV 05/20/24 10:00 05/20/24 08:21 20 MG Apixaban 5 mg BID PO 05/20/24 10:00 05/20/24 21:47 5 MG Carvedilol 6.25 mg Q12HR PO 05/20/24 10:00 05/20/24 21:47 6.25 MG Sacubitril/ Valsartan 1 tab BID PO 05/20/24 10:00 05/20/24 21:46 1 TAB objective Gen.: Patient lying in bed in no apparent distress. On supplemental oxygen. Head: Normocephalic, atraumatic. Eyes: EOMI/PERRLA. Ears: Normal hearing. Normal anatomy. Neck/trachea: Trachea midline, supple. Nose: Normal external anatomy. Mouth: Moist mucous membranes. Chest: Decreased air entry bilaterally. No wheezing or rhonchi. Cardiovascular: Positive S1, positive S2. Regular rate and rhythm. Abdomen: Positive bowel sounds in all 4 quadrants. Soft, non-tender, non- distended. : Deferred. Rectal: Deferred. Skin: Warm, dry. Intact. Extremities: 2+ radial pulses bilaterally. No lower extremity edema. Neuro: Awake, alert, oriented x3. No gross motor or sensory deficits. Cranial nerves II through XII intact. Gait not assessed. laboratory and microbiology Laboratory Tests 05/20/24 05:42 Test 05/20/24 05:42 Range/Units Serum Glucose 75 74-106 mg/dL Assessment/Plan Impression: Acute hypoxic respiratory failure Dependence on supplemental oxygen Pleural effusion, right Atelectasis Acute on chronic systolic CHF ESRD, on hemodialysis Pancytopenia Mediastinal lymphadenopathy Events: Remains on supplemental oxygen, 3 LPM NC Taper O2 as tolerated Hemodialysis per Nephrology Continue bronchodilators Continue antibiotics Incentive spirometry Rule out cancer metastasis. Labs and imaging reviewed. Rest of plan as noted below. Plan: Supplemental oxygen Titrate to keep O2 sats above 92%. CTA demonstrates large right pleural effusion and atelectasis. S/p right thoracentesis with 2.4 L removed from right pleural space. Continue antibiotics Incentive spirometry On Eliquis Diurese w/ Lasix as tolerated Monitor renal function. Monitor electrolytes. Supplement as necessary. Monitor ins and outs. HD per Nephrology DVT prophylaxis. Prognosis: Poor given patient's multiple co-morbidities. Rest of plan per hospitalist and other consultants. Thank you Dr. Persaud, for allowing me to participate in this patient's care. Further recommendations will depend on the patient's clinical course. Please do not hesitate to contact me if you have any questions or concerns. This medical document was created using an electronic medical record system with [employer] system. Although these documentations are being carefully reviewed, there may still be some phonetic and typographical changes. The errors are purely typographical, due to imperfection on the software program, and do not reflect any compromise in the patient's medical care. Plan discussed with: Patient, Other (MITCHEL Jha) DEVAUGHN LEONG MD May 20, 2024 22:10
[2024-05-21] VITALS (11 sets, daily range): BP systolic 108–140; BP diastolic 45–78; PULSE 60–68; RESP 16–18; TEMP 96.4–98.5; O2SAT 92–100
[2024-05-21 07:29] LABS: Anion Gap 7 (5-15); Calcium 8.9 mg/dL (8.7-10.4); Sodium 136 mmol/L (136-145)
[2024-05-21 07:32] LABS: Carbon Dioxide 34 mmol/L (20-31); Chloride 95 mmol/L (98-107)
[2024-05-21 07:35] LABS: BUN/Creatinine Ratio 5.5 (10.0-20.0); Glucose 95 mg/dL (74-106); Magnesium 2.3 mg/dL (1.6-2.6)
[2024-05-21 07:36] LABS: Blood Urea Nitrogen 35 mg/dL (9-23)
--- NOTE | 2024-05-21 07:46 | DVHPN2 ---
Progress Note - Dictate Date Seen: May 21, 2024 Medical Necessity Reason Pt with a Central, PICC or Fol: No vital signs Vital Sign Date Time Temp Pulse Resp B/P (MAP) Pulse Ox O2 Delivery O2 Flow Rate FiO2 05/21/24 05:38 108/52 05/21/24 05:00 97.4 61 18 100 97.4 05/20/24 19:50 Nasal Cannula* 3 32 Total Intake and Output 05/20/24 05/20/24 05/21/24 15:00 23:00 07:00 Intake Total 50 ml 990 ml 240 ml Output Total 660 ml 445 ml Balance 50 ml 330 ml -205 ml medications Current Medications Medications Dose Ordered Sig/Colleen Route Start Time Stop Time Status Last Admin Dose Admin Nitroglycerin 0.4 mg Q5MINP PRN SL 05/18/24 21:15 Morphine Sulfate 2 mg Q30M PRN IV 05/18/24 21:15 Amiodarone HCl 400 mg DAILY PO 05/19/24 10:00 05/20/24 08:18 400 MG Patient Own Medication 1 DAILY PO 05/19/24 10:00 Sevelamer HCl 800 mg TIDWM PO 05/19/24 08:00 05/20/24 18:04 800 MG Azithromycin 250 ml @ 125 mls/hr DAILY IV 05/20/24 10:00 05/20/24 12:16 125 MLS/HR Ceftriaxone Sodium 50 ml @ 100 mls/hr DAILY@09 IV 05/20/24 09:00 05/20/24 08:20 100 MLS/HR Furosemide 40 mg BIDD IV 05/19/24 18:00 05/21/24 05:38 40 MG Famotidine 20 mg DAILY IV 05/20/24 10:00 05/20/24 08:21 20 MG Apixaban 5 mg BID PO 05/20/24 10:00 05/20/24 21:47 5 MG Carvedilol 6.25 mg Q12HR PO 05/20/24 10:00 05/20/24 21:47 6.25 MG Sacubitril/ Valsartan 1 tab BID PO 05/20/24 10:00 05/20/24 21:46 1 TAB laboratory and microbiology Laboratory Tests 05/21/24 06:30 Test 05/21/24 06:30 Range/Units Serum Glucose 95 74-106 mg/dL Assessment/Plan Patient is a 64-year-old gentleman who presented to the hospital for few days of shortness of breath and left arm swelling. He himself is poor historian. He had missed hemodialysis twice. It seems that EMS found him with oxygen saturation of 85% at home. Since arrival, the patient is found to have pleural effusion. It is of note that the patient did have ICD upgrade to BiV-ICD in April 24, 2024 and never went for follow-up. Patient had been kept on Eliquis/Plavix. Does have history of paroxysmal AFib and old history of PCI. Cardiology is involved for cardiac aspects of care. Not in acute distress. Talking slowly. No JVD. Mucosa is pink and wet. No carotid bruit. Lungs: Not using accessory muscles of breathing. Scattered rhonchi in the lungs is heard. Air entry into the right side of the lungs is less. Cardiac: Regular, systolic murmur 3/6 in the apex is heard. The site for ICD implantation looks clean with no erythema/ecchymosis/tenderness. Abdomen is soft. Bowel sound is positive. Extremities reveal 2+ edema bilaterally. AV fistula in the right upper extremity with thrill was observed. 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 Echocardiogram of April 08, 2024 had reported four-chamber dilatation, ejection fraction of 20%, [id number] MR/TR and right ventricular systolic pressure of 75 mm Hg WBC: 2.1 - 4.0 - 2.0 Hemoglobin: 7.4 - 8.1 - 7.9 Platelet: 105 - 86 - 99 Creatinine: 7.06 - 7.24 - 5.82 - 6.42 Potassium: 3.1 - 3.9 - 4.7 - 4.0 Troponin (high sensitive): 38 - 38 - 43 BNP: 805.81 Ferritin: 407 D-dimer: 3.87 Digoxin: <0.14 Chest x-ray revealed: IMPRESSION: 1. Moderate right pleural effusion with atelectasis versus airspace disease in the right lower lung. Venous Doppler of left upper extremity revealed: IMPRESSION: Left internal jugular vein not visualized. Internal jugular vein thrombus cannot be excluded. Otherwise no sonographic evidence of deep venous thrombosis in the imaged left upper extremity at this time. Subcutaneous edema. Chest (right side) ultrasound revealed: Findings/Impression: Moderate right pleural effusion is seen. US thoracentesis (performed by Radiology): IMPRESSION: Successful right thoracentesis with 2.4L removed. Repeat chest xry revealed: IMPRESSION: Decrease in the right pleural effusion. No pneumothorax is seen. CTA of chest revealed: Findings: Pulmonary artery: There is no evidence of a pulmonary arterial filling defect to suggest pulmonary embolism. The main pulmonary artery demonstrates normal caliber. Lungs/Pleura: There is large right pleural effusion with atelectasis versus airspace disease in the right lower lobe and right middle lobe. There is small left pleural effusion with likely atelectasis left lower lobe. There are mild upper lobe centrilobular emphysematous changes in the lungs. Heart/Vascular Structures: There is cardiomegaly. There are calcified atherosclerotic changes in the coronary arteries and thoracic aorta. Lymph Nodes: There are several nonspecific prominent right paratracheal mediastinal lymph nodes measuring up to 1.5 cm.. Additional scattered subcentimeter mediastinal lymph nodes are seen. There is no hilar or axillary lymphadenopathy. Musculoskeletal: No acute osseous abnormality. Upper abdomen: Limited portions of the upper abdomen appears grossly unremarkable. IMPRESSION: 1. There is no evidence of pulmonary embolism. 2. Large right pleural effusion with atelectasis versus airspace disease in the right lower and middle lobes. 3. Several nonspecific prominent right paratracheal mediastinal lymph nodes may be reactive. 4. Cardiomegaly. EKG reveals paced rhythm Tele reveals paced rhythm Echocardiogram revealed: Four-chamber dilatation was observed. Left ventricle: Dilated left ventricle. Mild concentric left ventricular hypertrophy was seen. LVEF was around 35%. Diffuse hypokinesis with regional variation was observed. D shaped septum is in favor of pulmonary hypertension. Right ventricle was dilated with reduced systolic function. Both atria were dilated. Pacing wire in right-sided chambers was observed. 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 Aortic valve was trileaflet. There was no aortic stenosis. [id number]-[id number] aortic regurgitation/insufficiency was observed. Mild mitral regurgitation was observed. Moderate tricuspid regurgitation was observed. Mild pulmonary valve insufficiency was observed. Small pericardial effusion was observed. IVC was dilated with reduced respiratory variation. Right ventricular systolic pressure was assessed at 80 mm Hg. Patient is a 64-year-old gentleman who presented with shortness of breath and left arm swelling. He is noncompliant with followups. He is noncompliant with hemodialysis. Did have ICD upgrade few weeks back. Had been on Eliquis/Plavix as outpatient. Venous duplex of the left upper extremity was inconclusive to rule out internal jugular vein thrombosis. (discussed with Radiologist: suggestion is for CTA of lungs at this point) Acute on chronic systolic heart failure End-stage renal disease, Noncompliant with medication, followups and hemodialysis Pancytopenia History of GI bleeding Pleural effusion s/p Thoracentesis Cardiac suggestion for management: Managed on telemetry Aggressive hemodialysis Follow-up electrolytes and kidney function tests and correct abnormalities Awaiting [employer] interrogation (BiV-ICD) Full anticoagulation (On Eliquis) Keep left upper ext elevated/ (use sling). Change Metoprolol Succinate to Carvedilol: 6.25 BID On Entresto Change dose of Amiodarone to 200 mg HS Seen by Hem/Onc, s/p bone marrow biopsy Nephrology follow-up for end-stage renal disease/hemodialysis Hematology evaluation for pancytopenia suggested Further evaluation and management depends on the above and clinical course A total of 55 minutes was spent reviewing the patient record, examining the patient, making a diagnostic and therapeutic plan, discussing this plan with medical personnel, following up on diagnostic studies and following the patient for clinical stability excluding any and all procedures. At least 50% of this time was spent in direct, [id number] contact. Thank you for allowing me to participate in this patient's care. Further recommendations will depend on patient's clinical course. Please do not hesitate to contact me if you have any questions or concerns. This medical document was created using electronic medical record system with [employer] dictation system. Although this document has been carefully reviewed, there may still be some phonetic and typographical errors. These areas are purely typographical due to the imperfection of the software programs, and do not reflect any compromise in the patient's medical care. Plan discussed with: Other (nurse) SUSHMA WALKER MD May 21, 2024 07:46
[2024-05-21 08:40] LABS: Hemoglobin 7.4 g/dL (13.5-17.5); Lymphocytes # (auto) 0.3 10 ^3/uL (0.4-5.4); Monocytes # (auto) 0.2 10 ^3/uL (0-1.3); Neutrophils # (auto) 1.3 10 ^3/uL (1.6-8.6); Red Cell Distribution Width 20.4 % (11.8-14.3); White Blood Cell 2.3 10^3/uL (4.4-10.8)
[2024-05-21 08:42] LABS: Basophils # (auto) 0 10 ^3/uL (0-0.2); Basophils % (auto) 2.2 % (0.0-2.0); Eosinophils # (auto) 0.3 10 ^3/uL (0-0.8); Eosinophils % (auto) 14.9 % (0.0-7.0); Hematocrit 23.9 % (41.0-53.0); Lymphocytes % (auto) 15.2 % (10.0-50.0); Mean Corpuscular Hemoglobin 31.9 pg (28.0-32.0); Mean Corpuscular Hgb Conc. 30.9 g/dL (32.0-36.0); Mean Corpuscular Volume 103.3 fL (80.0-100.0); Monocytes % (auto) 10.9 % (0.0-12.0); Neutrophils % (auto) 56.8 % (37.0-80.0); Nucleated Red Blood Cells % 0.6 %; Platelet Count (auto) 93 10^3/uL (140-450); Red Blood Cells 2.31 10^6/uL (4.5-5.90)
--- NOTE | 2024-05-21 08:55 | DVHPN2 ---
Progress Note - Dictate Date Seen: May 21, 2024 Has the PT tested + for MRSA If YES, has PT been informed?: Yes Medical Necessity Reason Pt with a Central, PICC or Fol: No Subjective Patient is feeling okay. No significant pains. No nausea vomiting. Has some swelling of the left arm He had the bone marrow aspiration biopsy done yesterday vital signs Vital Sign Date Time Temp Pulse Resp B/P (MAP) Pulse Ox O2 Delivery O2 Flow Rate FiO2 05/21/24 05:38 108/52 05/21/24 05:00 97.4 61 18 100 97.4 05/20/24 19:50 Nasal Cannula* 3 32 Total Intake and Output 05/20/24 05/20/24 05/21/24 15:00 23:00 07:00 Intake Total 50 ml 990 ml 240 ml Output Total 660 ml 445 ml Balance 50 ml 330 ml -205 ml medications Current Medications Medications Dose Ordered Sig/Colleen Route Start Time Stop Time Status Last Admin Dose Admin Nitroglycerin 0.4 mg Q5MINP PRN SL 05/18/24 21:15 Morphine Sulfate 2 mg Q30M PRN IV 05/18/24 21:15 Amiodarone HCl 400 mg DAILY PO 05/19/24 10:00 05/20/24 08:18 400 MG Patient Own Medication 1 DAILY PO 05/19/24 10:00 Sevelamer HCl 800 mg TIDWM PO 05/19/24 08:00 05/21/24 07:52 800 MG Azithromycin 250 ml @ 125 mls/hr DAILY IV 05/20/24 10:00 05/20/24 12:16 125 MLS/HR Ceftriaxone Sodium 50 ml @ 100 mls/hr DAILY@09 IV 05/20/24 09:00 05/21/24 07:52 100 MLS/HR Furosemide 40 mg BIDD IV 05/19/24 18:00 05/21/24 05:38 40 MG Famotidine 20 mg DAILY IV 05/20/24 10:00 05/20/24 08:21 20 MG Apixaban 5 mg BID PO 05/20/24 10:00 05/20/24 21:47 5 MG Carvedilol 6.25 mg Q12HR PO 05/20/24 10:00 05/20/24 21:47 6.25 MG Sacubitril/ Valsartan 1 tab BID PO 05/20/24 10:00 05/20/24 21:46 1 TAB objective Moderately built and nourished, in no acute distress, alert and oriented. No jaundice Head and neck: Unremarkable for any masses or neck nodes. No conjunctival or mucosal hemorrhage Lungs: Diminished breath sounds in the right lung Cardiovascular: S1-S2 heard well Abdomen: No organomegaly, tenderness or ascites. Bowel sounds are present. Extremities: No clubbing edema cyanosis or calf tenderness. Left arm is swollen and slightly sensitive Skin: Unremarkable for petechia purpura ecchymosis Lymphadenopathy: None Neurological exam: No focal deficit laboratory and microbiology Laboratory Tests 05/21/24 08:18 05/21/24 06:30 Test 05/21/24 06:30 Range/Units Serum Glucose 95 74-106 mg/dL Assessment/Plan 1. Pancytopenia, the etiology to be determined, (rule out bone marrow pathology) serum ferritin 407, LDH 252, serum iron 36 saturation 18.2 TIBC 198, normal liver functions. PSA less than 0.1, pleural fluid showed LDH 105 total protein in the fluid was 3.4. Hepatitis a IgM, B surface antigen, B core IgM antibody, C antibody was negative COVID and influenza a and B was negative Direct [place] is negative antibody screen was negative 05/21/2024: White count 2.3 hemoglobin 7.4 platelets 46265 BUN 35 creatinine 6.42 serum iron 36 saturation 18.2 ferritin 407 total bili 0.4 LDH 252 total protein 6.1 albumin 3.6 B12 494 Hepatitis a, B surface antigen, B core antibody IgM, hepatitis-C antibody was negative Bone marrow aspiration biopsy done on 05/20/2024 and the report is pending 2. Renal failure on dialysis for the last seven years 3. Congestive heart failure coronary artery disease and two stents and NH 4.hypertension 5.right pleural effusion status post thoracentesis clear serous fluid taken out 6. History of prostate cancer in 2023 and received radiation therapy and outlined with [facility] and had some Lupron like injections also Plan: The patient is advised to follow up with me as an outpatient and I will discuss with him about the bone marrow aspiration biopsy report Plan discussed with: Patient REFUGIOMANISHA MD May 21, 2024 08:55
--- NOTE | 2024-05-21 09:11 | DVHDSRES ---
Discharge Summary Date of Admission Resident Creating Document: KEILY GREGG RESIDENT May 18, 2024 at 21:15 Date of Discharge: May 22, 2024 Admitting Diagnosis Acute hypoxic respiratory failure Labs/Diagnostic Data: Laboratory Results Test 05/21/24 08:18 05/21/24 06:30 05/20/24 14:23 05/20/24 10:02 White Blood Count 2.3 10^3/uL (4.4-10.8) Red Blood Count 2.31 10^6/uL (4.5-5.90) Hemoglobin 7.4 g/dL (13.5-17.5) Hematocrit 23.9 % (41.0-53.0) Mean Corpuscular Volume 103.3 fL (80.0-100.0) Mean Corpuscular Hemoglobin 31.9 pg (28.0-32.0) Mean Corpuscular Hemoglobin Concent 30.9 g/dL (32.0-36.0) Red Cell Distribution Width 20.4 % (11.8-14.3) Platelet Count 93 10^3/uL (140-450) Mean Platelet Volume 7.3 fL (6.9-10.8) Neutrophils (%) (Auto) 56.8 % (37.0-80.0) Lymphocytes (%) (Auto) 15.2 % (10.0-50.0) Monocytes (%) (Auto) 10.9 % (0.0-12.0) Eosinophils (%) (Auto) 14.9 % (0.0-7.0) Basophils (%) (Auto) 2.2 % (0.0-2.0) Neutrophils # (Auto) 1.3 10 ^3/uL (1.6-8.6) Lymphocytes # (Auto) 0.3 10 ^3/uL (0.4-5.4) Monocytes # (Auto) 0.2 10 ^3/uL (0-1.3) Eosinophils # (Auto) 0.3 10 ^3/uL (0-0.8) Basophils # (Auto) 0 10 ^3/uL (0-0.2) Nucleated Red Blood Cells 0.6 % Sodium Level 136 mmol/L (136-145) Potassium Level 4.0 mmol/L (3.5-5.1) Chloride Level 95 mmol/L (98-107) Carbon Dioxide Level 34 mmol/L (20-31) Anion Gap 7 (5-15) Blood Urea Nitrogen 35 mg/dL (9-23) Creatinine 6.42 mg/dL (0.700-1.30) Glomerular Filtration Rate Calc 9 mL/min (>90) BUN/Creatinine Ratio 5.5 (10.0-20.0) Serum Glucose 95 mg/dL (74-106) Calcium Level 8.9 mg/dL (8.7-10.4) Magnesium Level 2.3 mg/dL (1.6-2.6) Reticulocyte Count (auto) 1.42 % (0.5-1.5) Vitamin B12 Level 494 pg/mL (211-911) Test 05/20/24 05:42 05/19/24 13:35 05/19/24 10:25 05/19/24 09:45 Differential Total Cells Counted 100.0 (100) Neutrophils % (Manual) 61 (37.0-80.0) Band Neutrophils % (Manual) 0 Lymphocytes % (Manual) 19 (10.0-50.0) Monocytes % (Manual) 1 (0-12) Eosinophils % (Manual) 19 (0-7) Basophils % (Manual) 0 (0.0-2.0) Metamyelocytes % (manual) 0 Myelocytes % (Manual) 0 Promyelocytes % (Manual) 0 Blast Cells % (Manual) 0 Reactive Lymphocytes 0 Platelet Estimate Decrea Phosphorus Level 5.5 mg/dL (2.4-5.1) Clumped Platelets Few Anisocytosis (manual) Slight Body Fluid Source Pleural fluid Body Fluid pH 9.0 Body Fluid WBC (Manual) 147 CUMM (0-200) Body Fluid RBC (Manual) 1400 CUMM (0-2000) Body Fluid Mononuclear Cells 70 % Body Fluid Polymorphonuclear Cells 30 % (0-25) Body Fluid Glucose 115 mg/dL (.) Body Fluid Total Protein 3.6 g/dL (.) Body Fluid Lactate Dehydrogenase 127 IU/L (.) D-Dimer, Quantitative 3.87 mg/L FEU (0.0-0.49) Lactate Dehydrogenase 252 U/L (120-246) Digoxin Level < 0.14 ng/mL (0.8-2) Plasma/Serum Blood Alcohol 3.5 mg/dL (<10) Test 05/18/24 21:00 05/18/24 18:56 05/18/24 17:58 Iron Level 36 ug/dL (65-175) Total Iron Binding Capacity 198 ug/dL (250-425) Percent Iron Saturation 18.2 % (20-55) Ferritin 407.3 ng/mL (22-322) Ammonia < 10 umol/L (11-32) Troponin I High Sensitivity 43 ng/L (</=54) Influenza Type A Antigen Negative (Negative) Influenza Type B Antigen Negative (Negative) SARS-CoV-2 Antigen (Rapid) Negative (NEGATIVE) Prothrombin Time 12.3 sec (9.3-11.8) Prothrombin Time INR 1.17 (0.9-1.15) Activated Partial Thromboplast Time 30.8 SEC (24.5-34.5) B-Type Natriuretic Peptide 805.81 pg/mL (0-100) Other Laboratory Tests 05/21/24 08:18 05/21/24 06:30 Brief Hx & Hospital Course: Patient is 64 years old male with past medical history of ESRD on hemodialysis Saturday//Saturday, history of CAD, history of MIX2 , status post CABG, atrial fibrillation, prostatic carcinoma, congestive heart failure with a reduced ejection fraction, LVEF 20%, on pacemaker placed on 04/24/2024 came with a complaint of worsening shortness of breath and left arm swelling. As per patient patient has been having worsening short of breath for last 2 days with PND and orthopnea. Patient also reported left arm and hand swelling for last 2 days and some dry cough. Patient reported that his oxygen saturation dropped at 85% in room air at home. Patient missed last 2 dialysis because of transportation issue as per patient which caused him all the symptoms do develop. Endorsed some loose motion yesterday 2-3 times, watery, no blood. Patient denied any fever, chest pain, acute dysuria, acute joint pain or redness, dysarthria or change in vision. Initial lab workup revealed patient with leukopenia WBC 2.1, anemia with a hemoglobin 7.4, thrombocytopenia with platelet 105, elevated serum creatinine 7.06, low GFR 8, phosphatase 5.6 mildly elevated, BNP a 2 5 elevated D-dimer 3.87, negative for COVID-19 and influenza type A and B.. CXR revealed- Moderate right pleural effusion with atelectasis versus airspace disease in the right lower lung. Doppler Study of the left upper extremity revealed-Left internal jugular vein not visualized. Internal jugular vein thrombus cannot be excluded. Otherwise no sonographic evidence of deep venous thrombosis in the imaged left upper extremity at this time. Chest ultrasound revealed-Moderate right pleural effusion is seen. CT angio of chest revealed- no evidence of pulmonary embolism. Large right pleural effusion with atelectasis versus airspace disease in the right lower and middle lobes. Several nonspecific prominent right paratracheal mediastinal lymph nodes may be reactive. Cardiomegaly. Echo 2D revealed-Left ventricle: Dilated left ventricle. Mild concentric left ventricular hypertrophy was seen. LVEF was around 35%. Diffuse hypokinesis with regional variation was observed. D shaped septum is in favor of pulmonary hypertension. Right ventricle was dilated with reduced systolic function. Both atria were dilated. Pacing wire in right-sided chambers was observed. 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 Aortic valve was trileaflet. There was no aortic stenosis. [id number] aortic regurgitation/insufficiency was observed. Mild mitral regurgitation was observed. Moderate tricuspid regurgitation was observed. Mild pulmonary valve insufficiency was observed. Small pericardial effusion was observed. IVC was dilated with reduced respiratory variation. Right ventricular systolic pressure was assessed at 80 mm Hg. During hospital course patient was treated conservatively. Patient was seen by Cardiology, recommendation reviewed and appreciated. Patient also had hemodialysis for ESRD. Following hemodialysis and medical management patient's symptoms improved, edema reduced to significant amount, respiratory distress subsided significantly. Patient was Seen by hemato oncologist due to pancytopenia. Patient had bone marrow aspiration by Interventional Radiology on 05/20/2024. Attractions Associate change metoprolol to carvedilol 6.25 mg p.o. b.i.d., ordered Entresto 24-26 mg 1 tab p.o. b.i.d. patient was given 1 unit of packed red blood cell blood transfusion for severe anemia. Patient tolerated well, no immediate complication noted. Patient was discharged with doxycycline 100 mg p.o. b.i.d. for 5 days, Entresto 24-26 mg 1 tab p.o. b.i.d. carvedilol 6.25 mg p.o. b.i.d, Lasix 40 mg p.o. daily, sevelamer 800 mg p.o. t.i.d. patient was advised to follow up with the primary care physician in 1 week, collet making machine operator in 1-2 weeks, follow up with the recessing machine operator as per schedule and to follow his chair time for hemodialysis on Saturday//Saturday. Patient's meds were sent to the pharmacy electronically. Patient was hemodynamically stable on discharge. General examination- awake, alert, oriented, conversant HEENT- PEERLA, no acute nasal discharge Cardiovascular- S1-S2 audible, rate and rhythm regular, Respiratory- bilateral lung crackles+ Gastrointestinal-nontender, bowel sound+. Nondistended Musculoskeletal-no acute joint swelling or tenderness or redness Lower extremity- bilateral leg edema + Neurological- cranial nerves intact, no acute dysarthria or dysphagia Psychiatry- denies depression or SI or HI Skin- no acute rash or purpura Operations or Procedures [place] [address] Ph: [phone] DIAGNOSTIC IMAGING Diagnostic Imaging Report : [id number] Signed PATIENT: SUSHMA THAYER ACCT: [id number] UNIT: [id number] : 1960 LOC: ER ROOM / BED: / AGE / SEX: 64 / M ADM STATUS: REG ER SERVICE 1648 ORDERING PHYSICIAN: MACKENZIE FULTON MD PROCEDURE(s): CXRP - CHEST PORTABLE REASON: sob ORDER NUMBER(s): [id number], ACCESSION NUMBER(s): [id number] CHEST RADIOGRAPH Indication: sob Technique: Single frontal view of the chest was obtained Comparison: XY CHEST PORTABLE on DOS: 04/26/24, XY CHEST PORTABLE on DOS: 04/25/24 FINDINGS: Lines and Tubes: There is a multi lead AICD device in the left chest wall. Lungs/pleura:: There is moderate right pleural effusion with atelectasis versus airspace disease in the right lower lung. The left lung and pleural space are clear. Pleura: No effusion.No pneumothorax. Cardiomediastinal contours: Stable cardiomegaly. Pulmonary vasculature: Mild pulmonary vascular congestion. Bones: No acute osseous abnormality. IMPRESSION: 1. Moderate right pleural effusion with atelectasis versus airspace disease in the right lower lung. HS:Y ATED BY: VIMAL CHAMBERLAIN MD DICTATED DATE/TIME: 05/18/241751 SIGNED BY: VIMAL CHAMBERLAIN MD SIGNED DATE/TIME: 05/18/241751 CC: [place] [address] Ph: [phone] DIAGNOSTIC IMAGING Diagnostic Imaging Report : [id number] Signed PATIENT: SUSHMA THAYER ACCT: [id number] UNIT: [id number] : 1960 LOC: ER ROOM / BED: / AGE / SEX: 64 / M ADM STATUS: REG ER SERVICE 1648 ORDERING PHYSICIAN: MACKENZIE FULTON MD PROCEDURE(s): LUDVT - LT Upper DVT REASON: arm swelling ORDER NUMBER(s): [id number], ACCESSION NUMBER(s): [id number] LEFT UPPER EXTREMITY VENOUS ULTRASOUND CLINICAL HISTORY: arm swelling COMPARISON: None TECHNIQUE: Grayscale ultrasound with compression, color Doppler, and spectral Doppler of the deep venous system of the left upper extremity from the base of the neck through the elbow performed. FINDINGS: Left internal jugular vein: Not visualized. Left subclavian vein: Negative Left axillary vein: Negative. Left brachial veins:Negative. Left basilic vein: Negative Left cephalic vein: Negative. Other: Subcutaneous edema is noted distally. IMPRESSION: Left internal jugular vein not visualized. Internal jugular vein thrombus cannot be excluded. Otherwise no sonographic evidence of deep venous thrombosis in the imaged left upper extremity at this time. Subcutaneous edema. ATED BY: DARIEN CHAMBERLAIN MD DICTATED DATE/TIME: 05/18/241833 SIGNED BY: DARIEN CHAMBERLAIN MD SIGNED DATE/TIME: 05/18/241833 CC: [place] [id number] Ph: [phone] DIAGNOSTIC IMAGING Diagnostic Imaging Report : [id number] Signed PATIENT: SUSHMA THAYER ACCT: [id number] UNIT: [id number] : 1960 LOC: TELE ROOM / BED: [address] [place] [address] AGE / SEX: 64 / M ADM STATUS: ADM IN SERVICE 19 ORDERING PHYSICIAN: ROMAINE MCGOVERN PROCEDURE(s): CHSTU - CHEST ULTRASOUND REASON: right pleural effusion ORDER NUMBER(s): [id number], ACCESSION NUMBER(s): [id number] Exam: US CHEST ULTRASOUND Clinical History: right pleural effusion Comparison: None Technique: Targeted sonographic evaluation of the right chest was obtained utilizing grayscale and color Doppler imaging. Findings/Impression: Moderate right pleural effusion is seen. ATED BY: GABRIELA CHAVEZ MD DICTATED DATE/TIME: 05/18/242156 SIGNED BY: GABRIELA CHAVEZ MD SIGNED DATE/TIME: 05/18/242156 CC: [place] [address] Ph: [phone] DIAGNOSTIC IMAGING Diagnostic Imaging Report : [id number] Signed PATIENT: SUSHMA THAYER ACCT: [id number] UNIT: [id number] : 1960 LOC: [facility] ROOM / BED: [address] [place] [address] AGE / SEX: 64 / M ADM STATUS: ADM IN SERVICE 0814 ORDERING PHYSICIAN: ROMAINE MCGOVERN PROCEDURE(s): THORA - THORACENTESIS REASON: PLEURAL EFFUSION ORDER NUMBER(s): [id number], ACCESSION NUMBER(s): [id number] US THORACENTESIS HISTORY: PLEURAL EFFUSION PROCEDURE: Informed consent was obtained. The patient was seated on the bed. A limited localization ultrasound of the right thorax was obtained, and the optimal approach was marked on the skin. The area was prepped with chlorhexidine which was allowed to dry and draped in the usual sterile fashion. Time out was performed. The skin and the soft tissues were infiltrated with 1% lidocaine. A 5.5 Estonian centesis needle catheter was advanced into right pleural space. Following aspiration of fluid, the catheter was advanced and the needle removed. About 2400 cc of fluid was drained. Specimen/s was/were sent for appropriate cultures/cytology/cultures and cytology. No immediate complication was identified. FINDINGS: Large right pleural effusion. Aspirated fluid is clear and serous. IMPRESSION: Successful right thoracentesis with 2.4L removed. ATED BY: VARGAS BENNETT MD DICTATED DATE/TIME: 05/19/24949 SIGNED BY: VARGAS BENNETT MD SIGNED DATE/TIME: 05/19/24949 CC: [address] [address] Ph: [phone] DIAGNOSTIC IMAGING Diagnostic Imaging Report : [id number] Signed PATIENT: SUSHMA THAYER ACCT: [id number] UNIT: [id number] : 1960 LOC: [facility]OM [facility] / AGE / SEX: 64 / M ADM STATUS: ADM IN SERVICE 9 ORDERING PHYSICIAN: VARGAS BENNETT MD PROCEDURE(s): CXRP - CHEST PORTABLE REASON: POST THORACENTESIS ORDER NUMBER(s): [id number], ACCESSION NUMBER(s): [id number] XY CHEST PORTABLE, HISTORY: POST THORACENTESIS COMPARISON: XY CHEST PORTABLE on DOS: 05/18/24, XY CHEST PORTABLE on DOS: 04/26/24, XY CHEST PORTABLE on DOS: 04/25/24 XY CHEST PORTABLE on DOS: 05/18/24, XY CHEST PORTABLE on DOS: 04/26/24, XY CHEST PORTABLE on DOS: 04/25/24 TECHNICAL DATA: 1 view of the chest was obtained. FINDINGS: Lines and tubes: None Cardiomediastinal silhouette: normal Pulmonary vasculature: normal Lung expansion: normal Lung airspace: normal Lung interstitium: normal Pleura: Decrease in the right pleural effusion. Pneumothorax: no Bones: Unremarkable Other: no IMPRESSION: Decrease in the right pleural effusion. No pneumothorax is seen. ATED BY: VARGAS BENNETT MD DICTATED DATE/TIME: 05/19/24948 SIGNED BY: VARGAS BENNETT MD SIGNED DATE/TIME: 05/19/24948 CC: [address] [id number] Ph: [phone] DIAGNOSTIC IMAGING Diagnostic Imaging Report : [id number] Signed PATIENT: SUSHMA THAYER ACCT: [id number] UNIT: [id number] : 1960 LOC: [facility] ROOM / BED: [address]T / B AGE / SEX: 64 / M ADM STATUS: ADM IN SERVICE 1000 ORDERING PHYSICIAN: SUSHMA WALKER MD PROCEDURE(s): CTACH - CT ANGIO CHEST CONTRAST REASON: R/O CLOTS ORDER NUMBER(s): [id number], ACCESSION NUMBER(s): [id number] CTA CHEST INDICATION: R/O CLOTS TECHNIQUE: Multidetector CTA of the chest was performed of the chest with 100 cc of intravenous contrast. PULMONARY ANGIOGRAPHY PROTOCOL was utilized using a bolus-tracking technique centered on the main pulmonary artery. Axial, coronal and sagittal multiplanar and MIP reformats were performed. Radiation Dose Information: CT Dose: CTDI volume is 20.72 mGy. Dose-length product is 667.58 mGy*cm The dose indicators for CT are the volume Computed Tomography (CT) Dose Index (CTDIvol) and the Dose Length Product (DLP), and are measured in units of mGy and mGy-cm, respectively. These indicators are not patient dose, but values generated from the CT scanner acquisition factors. The report includes radiation exposure data for exposures received during this examination. Findings: Pulmonary artery: There is no evidence of a pulmonary arterial filling defect to suggest pulmonary embolism. The main pulmonary artery demonstrates normal caliber. Lungs/Pleura: There is large right pleural effusion with atelectasis versus airspace disease in the right lower lobe and right middle lobe. There is small left pleural effusion with likely atelectasis left lower lobe. There are mild upper lobe centrilobular emphysematous changes in the lungs. Heart/Vascular Structures: There is cardiomegaly. There are calcified atherosclerotic changes in the coronary arteries and thoracic aorta. Lymph Nodes: There are several nonspecific prominent right paratracheal mediastinal lymph nodes measuring up to 1.5 cm.. Additional scattered subcentimeter mediastinal lymph nodes are seen. There is no hilar or axillary lymphadenopathy. Musculoskeletal: No acute osseous abnormality. Upper abdomen: Limited portions of the upper abdomen appears grossly unremarkable. IMPRESSION: 1. There is no evidence of pulmonary embolism. 2. Large right pleural effusion with atelectasis versus airspace disease in the right lower and middle lobes. 3. Several nonspecific prominent right paratracheal mediastinal lymph nodes may be reactive. 4. Cardiomegaly. HS:Y ATED BY: VIMAL CHAMBERLAIN MD DICTATED DATE/TIME: 05/19/241514 SIGNED BY: VIMAL CHAMBERLAIN MD SIGNED DATE/TIME: 05/19/241514 CC: [place] [address] Ph: [phone] DIAGNOSTIC IMAGING Diagnostic Imaging Report : [id number] Signed PATIENT: SUSHMA THAYER ACCT: [id number] UNIT: [id number] : 1960 LOC: [facility] ROOM / BED: [address] [place] [address] B AGE / SEX: 64 / M ADM STATUS: ADM IN SERVICE 1041 ORDERING PHYSICIAN: KEILY GREGG RESIDENT PROCEDURE(s): GA - CT GUIDANCE FOR NEEDLE PLACEME REASON: BONE MARROW BX ORDER NUMBER(s): [id number], ACCESSION NUMBER(s): [id number] CT CT GUIDANCE FOR NEEDLE PLACEME, HISTORY: BONE MARROW BX COMPARISON: None PROCEDURE: Informed consent and time-out was performed before the procedure. Conscious sedation was performed by the interventional radiology nurse. The pelvic bone was marked, sterilized, draped, and locally anesthetized using approximately 8 ml of 1% lidocaine. Axial CT images were used for localization. A 11 gauge [employer] Bone Biopsy kit was used to take 13 mL aspirate and 1 core. The biopsy needle was then removed. No immediate complications noted. FINDINGS: Axial CT images demonstrates biopsy needle within the posterior pelvic bone. IMPRESSION: CT-guided biopsy of the posterior pelvic bone. ATED BY: VARGAS BENNETT MD DICTATED DATE/TIME: 05/20/241200 SIGNED BY: VARGAS BENNETT MD SIGNED DATE/TIME: 05/20/241200 CC: [place] [address] Ph: [phone] DIAGNOSTIC IMAGING Diagnostic Imaging Report : [id number] Signed PATIENT: SUSHMA THAYER ACCT: [id number] UNIT: [id number] : 1960 LOC: [facility] ROOM / BED: [address] [place] [address] AGE / SEX: 64 / M ADM STATUS: ADM IN SERVICE 1041 ORDERING PHYSICIAN: KEILY GREGG RESIDENT PROCEDURE(s): PL2CT - PELVIS WO CONTRAST REASON: BONE MARROW BX ORDER NUMBER(s): [id number], ACCESSION NUMBER(s): [id number] CT PELVIS WO CONTRAST HISTORY: BONE MARROW BX HISTORY: BONE MARROW BX COMPARISON: None PROCEDURE: Informed consent and time-out was performed before the procedure. Conscious sedation was performed by the interventional radiology nurse. The pelvic bone was marked, sterilized, draped, and locally anesthetized using approximately 8 ml of 1% lidocaine. Axial CT images were used for localization. A 11 gauge [employer] Bone Biopsy kit was used to take 13 mL aspirate and 1 core. The biopsy needle was then removed. No immediate complications noted. FINDINGS: Axial CT images demonstrates biopsy needle within the posterior pelvic bone. IMPRESSION: CT-guided biopsy of the posterior pelvic bone. ATED BY: VARGAS BENNETT MD DICTATED DATE/TIME: 05/20/24 1202 SIGNED BY: VARGAS BENNETT MD SIGNED DATE/TIME: 05/20/24 1202 CC: Condition at Discharge: Stable Final Diagnosis/Problems List #Acute hypoxemic respiratory failure likely due to fluid overload due to ESRD/acute on chronicHFrEF #acute on chronicHFrEF #Right pleural effusion #Possible pneumonia Gram-positive versus Gram-negative #End-stage renal disease (ESRD) on dialysis # small pericardial effusion # suspected pulmonary hypertension #Pancytopenia #Hypertension #Coronary artery disease with history of PTCA #Anemia of chronic disease #Atrial fibrillation (AFib) with rapid ventricular response #Hyperlipidemia #Pain at pacemaker surgical site #Noncompliant with medication, followups and hemodialysis # prominent right paratracheal mediastinal lymph nodes may be reactive. # Cardiomegaly. Discharge Disposition: Home Discharge Instruct/Medications Follow Up/Referral: Please follow up with your primary care physician in 1 week With follow up with the collet making machine operator in 1-2 weeks Please follow up with the recessing machine operator as per schedule and also follow your chair time for hemodialysis Please Be compliant with the medications Avoid nephrotoxic drugs and medications Please avoid dehydration Medications: Doxycycline 100 mg p.o. b.i.d. for 5 days Lasix 40 mg p.o. daily Entresto 24-26 mg 1 tab p.o. b.i.d. Carvedilol 6.25 mg p.o. b.i.d. Famotidine 20 mg p.o. b.i.d. Discharge Statement: "Patient was advised to return to the ER or call 911 if any headaches, dizziness, shortness of breath, chest pain, abdominal pain, bleeding, fevers, or worsening of medical condition. Patient was counseled about treatment plan, medications, possible side effects, patientverbalized understanding. All questions were answered to the best of my ability. This discharge took greater then 30 minutes in planning, reviewing documentation, counseling the patient, and discussing with other team members." ASSESSMENT ASSESSMENT Assessment Date of Service: May 21, 2024 Billing Provider: JUANITO ESCALERA MD Common Visit Codes: 30959-VQI/OBS DISCH DAY >30min KEILY GREGG RESIDENT May 21, 2024 09:11 JUANITO ESCALERA MD May 21, 2024 18:38
[2024-05-21] MEDS: ALBUMIN 25% 100 ML IV SCH (11:09)
[2024-05-21] MEDS: ALBUMIN 25% 100 ML IV ONE (11:11)
[2024-05-21 11:27] LABS: Hematocrit 21.8 % (41.0-53.0)
[2024-05-21] MEDS: IRON SUCROSE COMPLEX 110 ML IV SCH (12:07)
--- NOTE | 2024-05-21 12:19 | DVHPN2 ---
Progress Note Date Seen: May 21, 2024 Has the PT tested + for MRSA If YES, has PT been informed?: Yes Medical Necessity Reason Pt with a Central, PICC or Fol: No Subjective Patient reports: No new complaints Review of Systems: Deferred Objective vital signs Vital Sign Date Time Temp Pulse Resp B/P (MAP) Pulse Ox O2 Delivery O2 Flow Rate FiO2 05/21/24 10:10 70 125/56 05/21/24 09:17 97.7 17 98 97.7 05/20/24 19:50 Nasal Cannula* 3 32 Total Intake and Output 05/20/24 05/20/24 05/21/24 15:00 23:00 07:00 Intake Total 50 ml 990 ml 240 ml Output Total 660 ml 445 ml Balance 50 ml 330 ml -205 ml medications Current Medications Medications Dose Ordered Sig/Colleen Route Start Time Stop Time Status Last Admin Dose Admin Nitroglycerin 0.4 mg Q5MINP PRN SL 05/18/24 21:15 Morphine Sulfate 2 mg Q30M PRN IV 05/18/24 21:15 Amiodarone HCl 400 mg DAILY PO 05/19/24 10:00 05/21/24 10:10 400 MG Patient Own Medication 1 DAILY PO 05/19/24 10:00 Sevelamer HCl 800 mg TIDWM PO 05/19/24 08:00 05/21/24 12:05 800 MG Azithromycin 250 ml @ 125 mls/hr DAILY IV 05/20/24 10:00 05/20/24 12:16 125 MLS/HR Ceftriaxone Sodium 50 ml @ 100 mls/hr DAILY@09 IV 05/20/24 09:00 05/21/24 07:52 100 MLS/HR Furosemide 40 mg BIDD IV 05/19/24 18:00 05/21/24 05:38 40 MG Famotidine 20 mg DAILY IV 05/20/24 10:00 05/21/24 10:18 20 MG Apixaban 5 mg BID PO 05/20/24 10:00 05/20/24 21:47 5 MG Carvedilol 6.25 mg Q12HR PO 05/20/24 10:00 05/21/24 10:10 6.25 MG Sacubitril/ Valsartan 1 tab BID PO 05/20/24 10:00 05/20/24 21:46 1 TAB Iron Sucrose 110 ml @ 110 mls/hr DAILY@1200 IV 05/21/24 12:00 05/25/24 12:59 05/21/24 12:07 110 MLS/HR Albumin Human 100 ml @ 100 mls/hr Q1HR IV 05/21/24 11:00 05/21/24 12:59 05/21/24 11:09 100 MLS/HR Examination: GENERAL:Abnormal, LUNGS:Abnormal, MSK:Abnormal, SKIN:Abnormal laboratory and microbiology Laboratory Tests 05/21/24 10:50 05/21/24 08:18 05/21/24 06:30 Test 05/21/24 06:30 Range/Units Serum Glucose 95 74-106 mg/dL Microbiology Date/Time Source Procedure Growth Status 05/19/24 10:25 Pleural Fluid Gram Stain - Final Resulted 05/19/24 10:25 Pleural Fluid Aerobic Culture - Preliminary Resulted 05/19/24 03:30 Nose MRSA Screen - Final Complete Problem List/Assessment/Plan Problem List/Assessment/Plan ESRD on hemodialysis Missed HD--goes to [place] Congestive heart failure status post AICD ANemia pancytopenia recs Hemodialysis today UF as tolerated IV iron and epogen We will follow s/p BM biopsy Plan discussed with: Patient My Orders My Orders Orders - ADITYA DUNCAN MD Procedure Category Date Status Time Hemodialysis Orders ORDERS 05/21/24 Transmitted 09:03 Iron Sucrose Complex PHA 05/21/24 In Process (Venofer) 12:00 Epoetin Eligio-Epbx PHA 05/21/24 In Process (Retacrit) 21:00 Albumin 25% (Albutein) PHA 05/21/24 In Process 11:00 ADITYA DUNCAN MD May 21, 2024 12:19
[2024-05-21] MEDS ORDERED: DOXY100C79 PO (17:14)
[2024-05-21] MEDS ORDERED: SACU1TAB PO (17:19)
[2024-05-21] MEDS ORDERED: SEVE800T8 PO (17:19)
[2024-05-21] MEDS ORDERED: FURO1TAB33 PO (17:19)
[2024-05-21] MEDS ORDERED: CARV6.2551 PO (17:19)
[2024-05-21] MEDS ORDERED: FAMO20TA10 PO (17:21)
[2024-05-21] MEDS: EPOETIN ALFA-EPBX 4,000 UNIT/ML VIAL SC ONE (21:20)
--- NOTE | 2024-05-21 23:21 | DVHPN2 ---
Progress Note - Dictate Date Seen: May 21, 2024 Has the PT tested + for MRSA If YES, has PT been informed?: Yes Medical Necessity Reason Pt with a Central, PICC or Fol: No Subjective Patient seen and examined at bedside. Remains on supplemental oxygen Overnight events reviewed. vital signs Vital Sign Date Time Temp Pulse Resp B/P (MAP) Pulse Ox O2 Delivery O2 Flow Rate FiO2 05/21/24 21:22 66 133/63 05/21/24 21:00 98.5 18 92 98.5 05/21/24 20:00 Nasal Cannula* 3 32 Total Intake and Output 05/20/24 05/20/24 05/21/24 15:00 23:00 07:00 Intake Total 50 ml 990 ml 240 ml Output Total 660 ml 445 ml Balance 50 ml 330 ml -205 ml medications Current Medications Medications Dose Ordered Sig/Colleen Route Start Time Stop Time Status Last Admin Dose Admin Nitroglycerin 0.4 mg Q5MINP PRN SL 05/18/24 21:15 Morphine Sulfate 2 mg Q30M PRN IV 05/18/24 21:15 Amiodarone HCl 400 mg DAILY PO 05/19/24 10:00 05/21/24 10:10 400 MG Patient Own Medication 1 DAILY PO 05/19/24 10:00 Sevelamer HCl 800 mg TIDWM PO 05/19/24 08:00 05/21/24 18:57 800 MG Azithromycin 250 ml @ 125 mls/hr DAILY IV 05/20/24 10:00 05/20/24 12:16 125 MLS/HR Ceftriaxone Sodium 50 ml @ 100 mls/hr DAILY@09 IV 05/20/24 09:00 05/21/24 07:52 100 MLS/HR Furosemide 40 mg BIDD IV 05/19/24 18:00 05/21/24 18:57 40 MG Famotidine 20 mg DAILY IV 05/20/24 10:00 05/21/24 10:18 20 MG Apixaban 5 mg BID PO 05/20/24 10:00 05/21/24 21:23 5 MG Carvedilol 6.25 mg Q12HR PO 05/20/24 10:00 05/21/24 21:22 6.25 MG Sacubitril/ Valsartan 1 tab BID PO 05/20/24 10:00 05/21/24 21:22 1 TAB Iron Sucrose 110 ml @ 110 mls/hr DAILY@1200 IV 05/21/24 12:00 05/25/24 12:59 05/21/24 12:07 110 MLS/HR objective Gen.: Patient lying in bed in no apparent distress. On supplemental oxygen. Head: Normocephalic, atraumatic. Eyes: EOMI/PERRLA. Ears: Normal hearing. Normal anatomy. Neck/trachea: Trachea midline, supple. Nose: Normal external anatomy. Mouth: Moist mucous membranes. Chest: Decreased air entry bilaterally. No wheezing or rhonchi. Cardiovascular: Positive S1, positive S2. Regular rate and rhythm. Abdomen: Positive bowel sounds in all 4 quadrants. Soft, non-tender, non- distended. : Deferred. Rectal: Deferred. Skin: Warm, dry. Intact. Extremities: 2+ radial pulses bilaterally. No lower extremity edema. Neuro: Awake, alert, oriented x3. No gross motor or sensory deficits. Cranial nerves II through XII intact. Gait not assessed. laboratory and microbiology Laboratory Tests 05/21/24 10:50 05/21/24 08:18 05/21/24 06:30 Test 05/21/24 06:30 Range/Units Serum Glucose 95 74-106 mg/dL Assessment/Plan Impression: Acute hypoxic respiratory failure Dependence on supplemental oxygen Pleural effusion, right Atelectasis Acute on chronic systolic CHF ESRD, on hemodialysis Pancytopenia Mediastinal lymphadenopathy Events: Remains on supplemental oxygen, 3 LPM NC Taper O2 as tolerated Hemodialysis per Nephrology Continue bronchodilators Continue antibiotics Incentive spirometry Patient is stable for discharge from the pulmonary standpoint. Follow up in 1-2 weeks in Pulmonary Clinic. Patient needs monitoring for recurrence of pleural effusion. Follow up w/ Dr. Florez as outpatient for BMBx results Labs and imaging reviewed. Rest of plan as noted below. Plan: Supplemental oxygen Titrate to keep O2 sats above 92%. CTA demonstrates large right pleural effusion and atelectasis. S/p right thoracentesis with 2.4 L removed from right pleural space. Continue antibiotics Incentive spirometry On Eliquis Diurese w/ Lasix as tolerated Monitor renal function. Monitor electrolytes. Supplement as necessary. Monitor ins and outs. HD per Nephrology DVT prophylaxis. Prognosis: Poor given patient's multiple co-morbidities. Rest of plan per hospitalist and other consultants. Thank you Dr. Persaud, for allowing me to participate in this patient's care. Further recommendations will depend on the patient's clinical course. Please do not hesitate to contact me if you have any questions or concerns. This medical document was created using an electronic medical record system with [employer] dictation system. Although these documentations are being carefully reviewed, there may still be some phonetic and typographical changes. The errors are purely typographical, due to imperfection on the software program, and do not reflect any compromise in the patient's medical care. Plan discussed with: Patient, Other (MITCHEL Garrett) DEVAUGHN LEONG MD May 21, 2024 23:21
[2024-05-22] VITALS (9 sets, daily range): BP systolic 110–145; BP diastolic 50–75; PULSE 61–67; RESP 16–18; TEMP 97.4–98.4; O2SAT 93–99
[2024-05-22 06:06] LABS: Albumin 2.6 g/dL (2.9-4.4); Alpha-1-Globulin 0.2 g/dL (0.0-0.4); Alpha-2-Globulin 0.6 g/dL (0.4-1.0); Gamma Globulin 0.9 g/dL (0.4-1.8); Globulin Total 2.3 g/dL (2.2-3.9); Protein Total Serum 4.9 g/dL (6.0-8.5)
[2024-05-22 06:29] LABS: Anion Gap 5 (5-15); Chloride 99 mmol/L (98-107); Potassium 4.1 mmol/L (3.5-5.1); Sodium 139 mmol/L (136-145)
[2024-05-22 06:30] LABS: Calcium 8.8 mg/dL (8.7-10.4)
[2024-05-22 06:34] LABS: Glucose 84 mg/dL (74-106)
[2024-05-22 06:35] LABS: Magnesium 2.1 mg/dL (1.6-2.6)
[2024-05-22 06:36] LABS: Hemoglobin 8.4 g/dL (13.5-17.5)
[2024-05-22 06:39] LABS: Hematocrit 25.6 % (41.0-53.0); Mean Corpuscular Hemoglobin 31.7 pg (28.0-32.0); Mean Corpuscular Hgb Conc. 32.7 g/dL (32.0-36.0); Mean Corpuscular Volume 96.9 fL (80.0-100.0); Platelet Count (auto) 87 10^3/uL (140-450); Red Blood Cells 2.64 10^6/uL (4.5-5.90)
[2024-05-22 06:42] LABS: Blood Urea Nitrogen 30 mg/dL (9-23); Carbon Dioxide 35 mmol/L (20-31)
[2024-05-22 06:57] LABS: White Blood Cell 1.6 10^3/uL (4.4-10.8)
[2024-05-22 06:58] LABS: Basophils % (manual) 0 (0.0-2.0); Blast Cells 0; Metamyelocytes % 0; Myelocytes % 0; Promyelocytes % 0; Reactive Lymphocytes 0
--- NOTE | 2024-05-22 07:48 | DVHPN2 ---
Progress Note - Dictate Date Seen: May 22, 2024 Has the PT tested + for MRSA If YES, has PT been informed?: Yes Medical Necessity Reason Pt with a Central, PICC or Fol: No vital signs Vital Sign Date Time Temp Pulse Resp B/P (MAP) Pulse Ox O2 Delivery O2 Flow Rate FiO2 05/22/24 05:20 117/50 05/22/24 05:00 98.0 61 18 99 98.0 05/21/24 20:00 Nasal Cannula* 3 32 Total Intake and Output 05/21/24 05/21/24 05/22/24 15:00 23:00 07:00 Intake Total 160 ml 625 ml 60 ml Output Total 276 ml 125 ml Balance 160 ml 349 ml -65 ml medications Current Medications Medications Dose Ordered Sig/Colleen Route Start Time Stop Time Status Last Admin Dose Admin Nitroglycerin 0.4 mg Q5MINP PRN SL 05/18/24 21:15 Morphine Sulfate 2 mg Q30M PRN IV 05/18/24 21:15 Amiodarone HCl 400 mg DAILY PO 05/19/24 10:00 05/21/24 10:10 400 MG Patient Own Medication 1 DAILY PO 05/19/24 10:00 Sevelamer HCl 800 mg TIDWM PO 05/19/24 08:00 05/21/24 18:57 800 MG Azithromycin 250 ml @ 125 mls/hr DAILY IV 05/20/24 10:00 05/20/24 12:16 125 MLS/HR Ceftriaxone Sodium 50 ml @ 100 mls/hr DAILY@09 IV 05/20/24 09:00 05/21/24 07:52 100 MLS/HR Furosemide 40 mg BIDD IV 05/19/24 18:00 05/22/24 05:20 40 MG Famotidine 20 mg DAILY IV 05/20/24 10:00 05/21/24 10:18 20 MG Apixaban 5 mg BID PO 05/20/24 10:00 05/21/24 21:23 5 MG Carvedilol 6.25 mg Q12HR PO 05/20/24 10:00 05/21/24 21:22 6.25 MG Sacubitril/ Valsartan 1 tab BID PO 05/20/24 10:00 05/21/24 21:22 1 TAB Iron Sucrose 110 ml @ 110 mls/hr DAILY@1200 IV 05/21/24 12:00 05/25/24 12:59 05/21/24 12:07 110 MLS/HR laboratory and microbiology Laboratory Tests 05/22/24 05:12 Test 05/22/24 05:12 Range/Units Serum Glucose 84 74-106 mg/dL Assessment/Plan Patient is a 64-year-old gentleman who presented to the hospital for few days of shortness of breath and left arm swelling. He himself is poor historian. He had missed hemodialysis twice. It seems that EMS found him with oxygen saturation of 85% at home. Since arrival, the patient is found to have pleural effusion. It is of note that the patient did have ICD upgrade to BiV-ICD in April 24, 2024 and never went for follow-up. Patient had been kept on Eliquis/Plavix. Does have history of paroxysmal AFib and old history of PCI. Cardiology is involved for cardiac aspects of care. Not in acute distress. Talking slowly. No JVD. Mucosa is pink and wet. No carotid bruit. Lungs: Not using accessory muscles of breathing. Scattered rhonchi in the lungs is heard. Air entry into the right side of the lungs is less. Cardiac: Regular, systolic murmur 3/6 in the apex is heard. The site for ICD implantation looks clean with no erythema/ecchymosis/tenderness. Abdomen is soft. Bowel sound is positive. Extremities reveal 2+ edema bilaterally. AV fistula in the right upper extremity with thrill was observed. 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 Echocardiogram of April 08, 2024 had reported four-chamber dilatation, ejection fraction of 20%, [id number] MR/TR and right ventricular systolic pressure of 75 mm Hg WBC: 2.1 - 4.0 - 2.0 - 2.3 - 1.6 Hemoglobin: 7.4 - 8.1 - 7.9 - 7.4 - 7.0 - 8.4 Platelet: 105 - 86 - 99 - 93 - 87 Creatinine: 7.06 - 7.24 - 5.82 - 6.42 - 5.03 Potassium: 3.1 - 3.9 - 4.7 - 4.0 - 4.1 Troponin (high sensitive): 38 - 38 - 43 BNP: 805.81 Ferritin: 407 D-dimer: 3.87 Digoxin: <0.14 Chest x-ray revealed: IMPRESSION: 1. Moderate right pleural effusion with atelectasis versus airspace disease in the right lower lung. Venous Doppler of left upper extremity revealed: IMPRESSION: Left internal jugular vein not visualized. Internal jugular vein thrombus cannot be excluded. Otherwise no sonographic evidence of deep venous thrombosis in the imaged left upper extremity at this time. Subcutaneous edema. Chest (right side) ultrasound revealed: Findings/Impression: Moderate right pleural effusion is seen. US thoracentesis (performed by Radiology): IMPRESSION: Successful right thoracentesis with 2.4L removed. Repeat chest xry revealed: IMPRESSION: Decrease in the right pleural effusion. No pneumothorax is seen. CTA of chest revealed: Findings: Pulmonary artery: There is no evidence of a pulmonary arterial filling defect to suggest pulmonary embolism. The main pulmonary artery demonstrates normal caliber. Lungs/Pleura: There is large right pleural effusion with atelectasis versus airspace disease in the right lower lobe and right middle lobe. There is small left pleural effusion with likely atelectasis left lower lobe. There are mild upper lobe centrilobular emphysematous changes in the lungs. Heart/Vascular Structures: There is cardiomegaly. There are calcified atherosclerotic changes in the coronary arteries and thoracic aorta. Lymph Nodes: There are several nonspecific prominent right paratracheal mediastinal lymph nodes measuring up to 1.5 cm.. Additional scattered subcentimeter mediastinal lymph nodes are seen. There is no hilar or axillary lymphadenopathy. Musculoskeletal: No acute osseous abnormality. Upper abdomen: Limited portions of the upper abdomen appears grossly unremarkable. IMPRESSION: 1. There is no evidence of pulmonary embolism. 2. Large right pleural effusion with atelectasis versus airspace disease in the right lower and middle lobes. 3. Several nonspecific prominent right paratracheal mediastinal lymph nodes may be reactive. 4. Cardiomegaly. EKG reveals paced rhythm Tele reveals paced rhythm Echocardiogram revealed: Four-chamber dilatation was observed. Left ventricle: Dilated left ventricle. Mild concentric left ventricular hypertrophy was seen. LVEF was around 35%. Diffuse hypokinesis with regional variation was observed. D shaped septum is in favor of pulmonary hypertension. Right ventricle was dilated with reduced systolic function. Both atria were dilated. Pacing wire in right-sided chambers was observed. 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 Aortic valve was trileaflet. There was no aortic stenosis. [id number] aortic regurgitation/insufficiency was observed. Mild mitral regurgitation was observed. Moderate tricuspid regurgitation was observed. Mild pulmonary valve insufficiency was observed. Small pericardial effusion was observed. IVC was dilated with reduced respiratory variation. Right ventricular systolic pressure was assessed at 80 mm Hg. Patient is a 64-year-old gentleman who presented with shortness of breath and left arm swelling. He is noncompliant with followups. He is noncompliant with hemodialysis. Did have ICD upgrade few weeks back. Had been on Eliquis/Plavix as outpatient. Venous duplex of the left upper extremity was inconclusive to rule out internal jugular vein thrombosis. (discussed with Radiologist: suggestion is for CTA of lungs at this point). Has received transfusion. Acute on chronic systolic heart failure End-stage renal disease, Noncompliant with medication, followups and hemodialysis Pancytopenia History of GI bleeding Pleural effusion s/p Thoracentesis Cardiac suggestion for management: Manage on telemetry Aggressive hemodialysis Follow-up electrolytes and kidney function tests and correct abnormalities Full anticoagulation (On Eliquis) Keep left upper ext elevated/ (use sling). Carvedilol: 6.25 BID On Entresto Change Amiodarone to 200 mg HS Awaiting Medtronic interrogation (BiV-ICD) Seen by Hem/Onc, s/p bone marrow biopsy Nephrology follow-up for end-stage renal disease/hemodialysis Hematology evaluation for pancytopenia suggested Further evaluation and management depends on the above and clinical course A total of 55 minutes was spent reviewing the patient record, examining the patient, making a diagnostic and therapeutic plan, discussing this plan with medical personnel, following up on diagnostic studies and following the patient for clinical stability excluding any and all procedures. At least 50% of this time was spent in direct, [id number] contact. Thank you for allowing me to participate in this patient's care. Further recommendations will depend on patient's clinical course. Please do not hesitate to contact me if you have any questions or concerns. This medical document was created using electronic medical record system with [employer] computerized dictation system. Although this document has been carefully reviewed, there may still be some phonetic and typographical errors. These areas are purely typographical due to the imperfection of the software programs, and do not reflect any compromise in the patient's medical care. Plan discussed with: Patient, Other (nurse) SUSHMA WALKER MD May 22, 2024 07:48
[2024-05-22 09:29] LABS: Band Neutrophils % (manual) 2; Eosinophils % (manual) 15 (0-7); Lymphocytes % (manual) 17 (10.0-50.0); Monocytes % (manual) 15 (0-12)
[2024-05-22 09:30] LABS: Anisocytosis Slight; Platelet Estimate Decreased
[2024-05-22] MEDS: AMIODARONE HCL 200 MG TAB PO SCH (10:26)
[2024-05-22 11:07] LABS: Base Excess 8.6 mmol/L (-2.0-3.0)
--- NOTE | 2024-05-22 15:15 | DVHPN2 ---
Progress Note Date Seen: May 22, 2024 Has the PT tested + for MRSA If YES, has PT been informed?: Yes Medical Necessity Reason Pt with a Central, PICC or Fol: No Subjective Patient reports: No new complaints Objective vital signs Vital Sign Date Time Temp Pulse Resp B/P (MAP) Pulse Ox O2 Delivery O2 Flow Rate FiO2 05/22/24 13:00 98.4 62 16 110/62 (78) 99 98.4 05/21/24 20:00 Nasal Cannula* 3 32 Total Intake and Output 05/21/24 05/21/24 05/22/24 15:00 23:00 07:00 Intake Total 160 ml 625 ml 60 ml Output Total 276 ml 125 ml Balance 160 ml 349 ml -65 ml medications Current Medications Medications Dose Ordered Sig/Colleen Route Start Time Stop Time Status Last Admin Dose Admin Nitroglycerin 0.4 mg Q5MINP PRN SL 05/18/24 21:15 Morphine Sulfate 2 mg Q30M PRN IV 05/18/24 21:15 Patient Own Medication 1 DAILY PO 05/19/24 10:00 Sevelamer HCl 800 mg TIDWM PO 05/19/24 08:00 05/22/24 13:06 800 MG Azithromycin 250 ml @ 125 mls/hr DAILY IV 05/20/24 10:00 05/22/24 10:28 125 MLS/HR Ceftriaxone Sodium 50 ml @ 100 mls/hr DAILY@09 IV 05/20/24 09:00 05/22/24 07:50 100 MLS/HR Furosemide 40 mg BIDD IV 05/19/24 18:00 05/22/24 05:20 40 MG Famotidine 20 mg DAILY IV 05/20/24 10:00 05/22/24 10:27 20 MG Apixaban 5 mg BID PO 05/20/24 10:00 05/22/24 10:27 5 MG Carvedilol 6.25 mg Q12HR PO 05/20/24 10:00 05/22/24 10:27 6.25 MG Sacubitril/ Valsartan 1 tab BID PO 05/20/24 10:00 05/22/24 10:26 1 TAB Iron Sucrose 110 ml @ 110 mls/hr DAILY@1200 IV 05/21/24 12:00 05/25/24 12:59 05/22/24 13:06 110 MLS/HR Amiodarone HCl 200 mg DAILY PO 05/22/24 10:00 05/22/24 10:26 200 MG Examination Gen: In no acute distress. Appears stated age Pulm: Bilateral air entry, no rales CVS:RRR, normal S1 and S2 Ext: No edema Neuro: A&Ox4 laboratory and microbiology Laboratory Tests 05/22/24 05:12 Test 05/22/24 05:12 Range/Units Serum Glucose 84 74-106 mg/dL Microbiology Date/Time Source Procedure Growth Status 05/19/24 10:25 Pleural Fluid Gram Stain - Final Resulted 05/19/24 10:25 Pleural Fluid Aerobic Culture - Preliminary Resulted 05/19/24 03:30 Nose MRSA Screen - Final Complete Labs and/or images reviewed: Labs reviewed by me Problem List/Assessment/Plan Problem List/Assessment/Plan IMP ESRD on hemodialysis- last HD on 05/21 Missed HD--goes to [place] Congestive heart failure status post AICD Anemia pancytopenia s/p BM biopsy REC Chemistry panel Next Hemodialysis 05/23 UF as tolerated Continue IV iron and epogen Strict I&Os We will continue to follow Plan discussed with: Patient DELGADOANNE ESTEVEZKELSIE DICKERSON May 22, 2024 15:15
--- NOTE | 2024-05-22 15:17 | DVHPNRES ---
Progress Note Date Seen: May 22, 2024 Resident Creating Document: KEILY GREGG RESIDENT Has the PT tested + for MRSA If YES, has PT been informed?: Yes Medical Necessity Reason Pt with a Central, PICC or Fol: No Subjective Review of Systems Patient is 64 years old male with past medical history of ESRD on hemodialysis Saturday//Saturday, history of CAD, history of MIX2 , status post CABG, atrial fibrillation, prostatic carcinoma, congestive heart failure with a reduced ejection fraction, LVEF 20%, on pacemaker placed on 04/24/2024 came with a complaint of worsening shortness of breath and left arm swelling. As per patient patient has been having worsening short of breath for last 2 days with PND and orthopnea. Patient also reported left arm and hand swelling for last 2 days and some dry cough. Patient reported that his oxygen saturation dropped at 85% in room air at home. Patient missed last 2 dialysis because of transportation issue as per patient which caused him all the symptoms do develop. Endorsed some loose motion yesterday 2-3 times, watery, no blood. Patient denied any fever, chest pain, acute dysuria, acute joint pain or redness, dysarthria or change in vision. Initial lab workup revealed patient with leukopenia WBC 2.1, anemia with a hemoglobin 7.4, thrombocytopenia with platelet 105, elevated serum creatinine 7.06, low GFR 8, phosphatase 5.6 mildly elevated, BNP a 2 5 elevated D-dimer 3.87, negative for COVID-19 and influenza type A and B.. CXR revealed- Moderate right pleural effusion with atelectasis versus airspace disease in the right lower lung. Doppler Study of the left upper extremity revealed-Left internal jugular vein not visualized. Internal jugular vein thrombus cannot be excluded. Otherwise no sonographic evidence of deep venous thrombosis in the imaged left upper extremity at this time. Chest ultrasound revealed-Moderate right pleural effusion is seen. CT angio of chest revealed- no evidence of pulmonary embolism. Large right pleural effusion with atelectasis versus airspace disease in the right lower and middle lobes. Several nonspecific prominent right paratracheal mediastinal lymph nodes may be reactive. Cardiomegaly. PMH-ESRD on hemodialysis Saturday//Saturday, history of CAD, history of MIX2 , status post CABG, atrial fibrillation, prostatic carcinoma, congestive heart failure with a reduced ejection fraction, LVEF 20%, on pacemaker placed on 04/24/2024 PSH- pacemaker placement, fistula Allergy- NKDA Personal History/ Social History- Patient was seen today at the bedside. Cardiovascular- deny acute chest pain Respiratory- denies cough or short of breath or wheezin Gastrointestinal- denies any rectal bleeding, nausea or vomiting Musculoskeletal-denies acute joint swelling or tenderness or redness Neurological- denies acute dysarthria, dysphagia, change in vision Psychiatry- denies depression or SI or HI Skin- denies acute rash or purpura Patient was seen today for clinical evaluation. Labs and chart reviewed. Patient reports feeling much better than before. Patient's edema has improved significantly since admission. Patient qualify for home oxygen as per ABG report. Patient is being discharged home with home oxygen 3 liter/minute, also with 4 wheel walker. Objective vital signs Vital Sign Date Time Temp Pulse Resp B/P (MAP) Pulse Ox O2 Delivery O2 Flow Rate FiO2 05/22/24 13:00 98.4 62 16 110/62 (78) 99 98.4 05/21/24 20:00 Nasal Cannula* 3 32 Total Intake and Output 05/21/24 05/21/24 05/22/24 15:00 23:00 07:00 Intake Total 160 ml 625 ml 60 ml Output Total 276 ml 125 ml Balance 160 ml 349 ml -65 ml medications Current Medications Medications Dose Ordered Sig/Colleen Route Start Time Stop Time Status Last Admin Dose Admin Nitroglycerin 0.4 mg Q5MINP PRN SL 05/18/24 21:15 Morphine Sulfate 2 mg Q30M PRN IV 05/18/24 21:15 Patient Own Medication 1 DAILY PO 05/19/24 10:00 Sevelamer HCl 800 mg TIDWM PO 05/19/24 08:00 05/22/24 13:06 800 MG Azithromycin 250 ml @ 125 mls/hr DAILY IV 05/20/24 10:00 05/22/24 10:28 125 MLS/HR Ceftriaxone Sodium 50 ml @ 100 mls/hr DAILY@09 IV 05/20/24 09:00 05/22/24 07:50 100 MLS/HR Furosemide 40 mg BIDD IV 05/19/24 18:00 05/22/24 05:20 40 MG Famotidine 20 mg DAILY IV 05/20/24 10:00 05/22/24 10:27 20 MG Apixaban 5 mg BID PO 05/20/24 10:00 05/22/24 10:27 5 MG Carvedilol 6.25 mg Q12HR PO 05/20/24 10:00 05/22/24 10:27 6.25 MG Sacubitril/ Valsartan 1 tab BID PO 05/20/24 10:00 05/22/24 10:26 1 TAB Iron Sucrose 110 ml @ 110 mls/hr DAILY@1200 IV 05/21/24 12:00 05/25/24 12:59 05/22/24 13:06 110 MLS/HR Amiodarone HCl 200 mg DAILY PO 05/22/24 10:00 05/22/24 10:26 200 MG Examination General examination- awake, alert, oriented, conversant HEENT- PEERLA, no acute nasal discharge Cardiovascular- S1-S2 audible, rate and rhythm regular, Respiratory- bilateral lung crackles+ Gastrointestinal-nontender, bowel sound+. Nondistended Musculoskeletal-no acute joint swelling or tenderness or redness Lower extremity- + bilateral leg edema + Neurological- cranial nerves intact, no acute dysarthria or dysphagia Psychiatry- denies depression or SI or HI Skin- no acute rash or purpura laboratory and microbiology Laboratory Tests 05/22/24 05:12 Test 05/22/24 05:12 Range/Units Serum Glucose 84 74-106 mg/dL Microbiology Date/Time Source Procedure Growth Status 05/19/24 10:25 Pleural Fluid Gram Stain - Final Resulted 05/19/24 10:25 Pleural Fluid Aerobic Culture - Preliminary Resulted 05/19/24 03:30 Nose MRSA Screen - Final Complete Problem List/Assessment/Plan Problem List/Assessment/Plan #Acute hypoxemic respiratory failure likely due to fluid overload due to ESRD/acute on chronicHFrEF #acute on chronicHFrEF #Right pleural effusion #Possible pneumonia Gram-positive versus Gram-negative #End-stage renal disease (ESRD) on dialysis #Pancytopenia #Hypertension #Coronary artery disease with history of PTCA #Anemia of chronic disease #Atrial fibrillation (AFib) with rapid ventricular response #Hyperlipidemia #Pain at pacemaker surgical site #Noncompliant with medication, followups and hemodialysis # prominent right paratracheal mediastinal lymph nodes may be reactive. # Cardiomegaly. -hemato oncologist, Recommended to Check B12, retic count, direct Rojas, JAMAAL and double-stranded DNA. Bone marrow aspiration biopsy to be done by the IR and sent for pathology flow cytometry and cytogenetics. Try to keep the hemoglobin over seven -. Forest Fire Prevention Manager discontinued metoprolol and ordered carvedilol 6.25 mg p.o. b.i.d. and ordered Entresto. CT angio of chest revealed- no evidence of pulmonary embolism. Large right pleural effusion with atelectasis versus airspace disease in the right lower and middle lobes. Several nonspecific prominent right paratracheal mediastinal lymph nodes may be reactive. Cardiomegaly. CT-guided biopsy of the posterior pelvic bone was done today on 05/20/2024 Continue Lasix 40 mg IV b.i.d. Continue ceftriaxone 1 g IV daily Continue azithromycin 500 mg IV daily Carvedilol 6.25 mg p.o. b.i.d. Entresto 24-26 mg 1 tab p.o. b.i.d. Continue sevelamer 800 mg p.o. t.i.d. Continue Eliquis 2.5 mg p.o. b.i.d. Continue amiodarone 400 mg p.o. daily Goals of care/advance care planning; FULL CODE; discussed with the patient >15 minutes PUD prophylaxis: Famotidine DVT prophylaxis: On Eliquis Plan discussed with Dr. Sue, nursing staff, patient Total time spent on patient evaluation, chart review, assessment and plan, discussion discussion >30 minutes Plan discussed with: Patient Plan discussed with: Patient, Other (RN) My Orders My Orders Orders - KEILY GREGG Procedure Category Date Status Time Discharge DISCHARGE 05/21/24 Transmitted 17:40 * Electronics Design Engineer CONS 05/21/24 Transmitted Consult Abg W/ Co-Ox RT 05/22/24 Logged 10:41 * Electronics Design Engineer CONS 05/22/24 Transmitted Consult * Electronics Design Engineer CONS 05/22/24 Transmitted Consult Date of Service: May 22, 2024 Billing Provider: JUANITO SUE MD Common Visit Codes: 52982-[id number] INP/OBS CARE(HIGH) Secondary Visit Codes: 51559-CSMQBPDG CARE PLAN 30 MINUTES KEILY GREGG May 22, 2024 15:17 JUANITO SUE MD May 24, 2024 18:09
--- NOTE | 2024-05-22 23:37 | DVHPN2 ---
Progress Note - Dictate Date Seen: May 22, 2024 Has the PT tested + for MRSA If YES, has PT been informed?: Yes Medical Necessity Reason Pt with a Central, PICC or Fol: No Subjective Patient seen and examined at bedside. Remains on supplemental oxygen Overnight events reviewed. vital signs Vital Sign Date Time Temp Pulse Resp B/P (MAP) Pulse Ox O2 Delivery O2 Flow Rate FiO2 05/22/24 21:42 64 145/75 05/22/24 21:00 98.0 18 97 98.0 05/22/24 20:00 Nasal Cannula* 3 32 Total Intake and Output 05/21/24 05/21/24 05/22/24 15:00 23:00 07:00 Intake Total 160 ml 625 ml 60 ml Output Total 276 ml 125 ml Balance 160 ml 349 ml -65 ml medications Current Medications Medications Dose Ordered Sig/Colleen Route Start Time Stop Time Status Last Admin Dose Admin Nitroglycerin 0.4 mg Q5MINP PRN SL 05/18/24 21:15 Morphine Sulfate 2 mg Q30M PRN IV 05/18/24 21:15 Patient Own Medication 1 DAILY PO 05/19/24 10:00 Sevelamer HCl 800 mg TIDWM PO 05/19/24 08:00 05/22/24 17:53 800 MG Azithromycin 250 ml @ 125 mls/hr DAILY IV 05/20/24 10:00 05/22/24 10:28 125 MLS/HR Ceftriaxone Sodium 50 ml @ 100 mls/hr DAILY@09 IV 05/20/24 09:00 05/22/24 07:50 100 MLS/HR Furosemide 40 mg BIDD IV 05/19/24 18:00 05/22/24 17:53 40 MG Famotidine 20 mg DAILY IV 05/20/24 10:00 05/22/24 10:27 20 MG Apixaban 5 mg BID PO 05/20/24 10:00 05/22/24 21:41 5 MG Carvedilol 6.25 mg Q12HR PO 05/20/24 10:00 05/22/24 21:42 6.25 MG Sacubitril/ Valsartan 1 tab BID PO 05/20/24 10:00 05/22/24 21:41 1 TAB Iron Sucrose 110 ml @ 110 mls/hr DAILY@1200 IV 05/21/24 12:00 05/25/24 12:59 05/22/24 13:06 110 MLS/HR Amiodarone HCl 200 mg DAILY PO 05/22/24 10:00 05/22/24 10:26 200 MG objective Gen.: Patient lying in bed in no apparent distress. On supplemental oxygen. Head: Normocephalic, atraumatic. Eyes: EOMI/PERRLA. Ears: Normal hearing. Normal anatomy. Neck/trachea: Trachea midline, supple. Nose: Normal external anatomy. Mouth: Moist mucous membranes. Chest: Decreased air entry bilaterally. No wheezing or rhonchi. Cardiovascular: Positive S1, positive S2. Regular rate and rhythm. Abdomen: Positive bowel sounds in all 4 quadrants. Soft, non-tender, non- distended. : Deferred. Rectal: Deferred. Skin: Warm, dry. Intact. Extremities: 2+ radial pulses bilaterally. No lower extremity edema. Neuro: Awake, alert, oriented x3. No gross motor or sensory deficits. Cranial nerves II through XII intact. Gait not assessed. laboratory and microbiology Laboratory Tests 05/22/24 05:12 Test 05/22/24 05:12 Range/Units Serum Glucose 84 74-106 mg/dL Assessment/Plan Impression: Acute hypoxic respiratory failure Dependence on supplemental oxygen Pleural effusion, right Atelectasis Acute on chronic systolic CHF ESRD, on hemodialysis Pancytopenia Mediastinal lymphadenopathy Events: Remains on supplemental oxygen, 3 LPM NC Taper O2 as tolerated No new complaints Hemodialysis per Nephrology Continue antibiotics Incentive spirometry Eliquis Lasix for diuresis Monitor renal function Patient is stable for discharge from the pulmonary standpoint. Follow up in 1-2 weeks in Pulmonary Clinic. Dispo home per hospitalist. Patient needs monitoring for recurrence of pleural effusion. Follow up w/ Dr. Florez as outpatient for BMBx results Labs and imaging reviewed. Rest of plan as noted below. Plan: Supplemental oxygen Titrate to keep O2 sats above 92%. CTA demonstrates large right pleural effusion and atelectasis. S/p right thoracentesis with 2.4 L removed from right pleural space. Continue antibiotics Incentive spirometry On Eliquis Diurese w/ Lasix as tolerated Monitor renal function. Monitor electrolytes. Supplement as necessary. Monitor ins and outs. HD per Nephrology DVT prophylaxis. Prognosis: Poor given patient's multiple co-morbidities. Rest of plan per hospitalist and other consultants. Thank you Dr. Persaud, for allowing me to participate in this patient's care. Further recommendations will depend on the patient's clinical course. Please do not hesitate to contact me if you have any questions or concerns. This medical document was created using an electronic medical record system with [employer] dictation system. Although these documentations are being carefully reviewed, there may still be some phonetic and typographical changes. The errors are purely typographical, due to imperfection on the software program, and do not reflect any compromise in the patient's medical care. Plan discussed with: Patient, Other (RN Marylin) DEVAUGHN LEONG MD May 22, 2024 23:37
[2024-05-23 01:00] VITALS: BP 120/66; PULSE 63; RESP 18; TEMP 97.7; O2SAT 95
[2024-05-23 05:00] VITALS: BP 153/81; PULSE 67; RESP 18; TEMP 97.7; O2SAT 96
[2024-05-23 06:22] LABS: Potassium 4.2 mmol/L (3.5-5.1); Sodium 137 mmol/L (136-145)
[2024-05-23 06:23] LABS: Anion Gap 7 (5-15); Calcium 9.5 mg/dL (8.7-10.4)
[2024-05-23 06:28] LABS: BUN/Creatinine Ratio 4.8 (10.0-20.0); Glucose 93 mg/dL (74-106)
[2024-05-23 06:29] LABS: Magnesium 2.2 mg/dL (1.6-2.6)
[2024-05-23 06:36] LABS: Blood Urea Nitrogen 27 mg/dL (9-23); Carbon Dioxide 32 mmol/L (20-31); Chloride 98 mmol/L (98-107)
--- NOTE | 2024-05-23 07:05 | DVHPN2 ---
Progress Note - Dictate Date Seen: May 23, 2024 Has the PT tested + for MRSA If YES, has PT been informed?: Yes Medical Necessity Reason Pt with a Central, PICC or Fol: No vital signs Vital Sign Date Time Temp Pulse Resp B/P (MAP) Pulse Ox O2 Delivery O2 Flow Rate FiO2 05/23/24 05:24 153/81 05/23/24 05:00 97.7 67 18 96 97.7 05/22/24 20:00 Nasal Cannula* 3 32 Total Intake and Output 05/22/24 05/22/24 05/23/24 15:00 23:00 07:00 Intake Total 410 ml 590 ml 60 ml Output Total 750 ml 180 ml Balance 410 ml -160 ml -120 ml medications Current Medications Medications Dose Ordered Sig/Colleen Route Start Time Stop Time Status Last Admin Dose Admin Nitroglycerin 0.4 mg Q5MINP PRN SL 05/18/24 21:15 Morphine Sulfate 2 mg Q30M PRN IV 05/18/24 21:15 Patient Own Medication 1 DAILY PO 05/19/24 10:00 Sevelamer HCl 800 mg TIDWM PO 05/19/24 08:00 05/22/24 17:53 800 MG Azithromycin 250 ml @ 125 mls/hr DAILY IV 05/20/24 10:00 05/22/24 10:28 125 MLS/HR Ceftriaxone Sodium 50 ml @ 100 mls/hr DAILY@09 IV 05/20/24 09:00 05/22/24 07:50 100 MLS/HR Furosemide 40 mg BIDD IV 05/19/24 18:00 05/23/24 05:24 40 MG Famotidine 20 mg DAILY IV 05/20/24 10:00 05/22/24 10:27 20 MG Apixaban 5 mg BID PO 05/20/24 10:00 05/22/24 21:41 5 MG Carvedilol 6.25 mg Q12HR PO 05/20/24 10:00 05/22/24 21:42 6.25 MG Sacubitril/ Valsartan 1 tab BID PO 05/20/24 10:00 05/22/24 21:41 1 TAB Iron Sucrose 110 ml @ 110 mls/hr DAILY@1200 IV 05/21/24 12:00 05/25/24 12:59 05/22/24 13:06 110 MLS/HR Amiodarone HCl 200 mg DAILY PO 05/22/24 10:00 05/22/24 10:26 200 MG laboratory and microbiology Laboratory Tests 05/23/24 04:48 05/22/24 05:12 Test 05/23/24 04:48 Range/Units Serum Glucose 93 74-106 mg/dL Assessment/Plan Assessment/Plan Patient is a 64-year-old gentleman who presented to the hospital for few days of shortness of breath and left arm swelling. He himself is poor historian. He had missed hemodialysis twice. It seems that EMS found him with oxygen saturation of 85% at home. Since arrival, the patient is found to have pleural effusion. It is of note that the patient did have ICD upgrade to BiV-ICD in April 24, 2024 and never went for follow-up. Patient had been kept on Eliquis/Plavix. Does have history of paroxysmal AFib and old history of PCI. Cardiology is involved for cardiac aspects of care. Not in acute distress. Talking slowly. No JVD. Mucosa is pink and wet. No carotid bruit. Lungs: Not using accessory muscles of breathing. Scattered rhonchi in the lungs is heard. Air entry into the right side of the lungs is less. Cardiac: Regular, systolic murmur 3/6 in the apex is heard. The site for ICD implantation looks clean with no erythema/ecchymosis/tenderness. Abdomen is soft. Bowel sound is positive. Extremities reveal 2+ edema bilaterally. AV fistula in the right upper extremity with thrill was observed. 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 Echocardiogram of April 08, 2024 had reported four-chamber dilatation, ejection fraction of 20%, [id number] MR/TR and right ventricular systolic pressure of 75 mm Hg WBC: 2.1 - 4.0 - 2.0 - 2.3 - 1.6 Hemoglobin: 7.4 - 8.1 - 7.9 - 7.4 - 7.0 - 8.4 Platelet: 105 - 86 - 99 - 93 - 87 Creatinine: 7.06 - 7.24 - 5.82 - 6.42 - 5.03 Potassium: 3.1 - 3.9 - 4.7 - 4.0 - 4.1 Troponin (high sensitive): 38 - 38 - 43 BNP: 805.81 Ferritin: 407 D-dimer: 3.87 Digoxin: <0.14 Chest x-ray revealed: IMPRESSION: 1. Moderate right pleural effusion with atelectasis versus airspace disease in the right lower lung. Venous Doppler of left upper extremity revealed: IMPRESSION: Left internal jugular vein not visualized. Internal jugular vein thrombus cannot be excluded. Otherwise no sonographic evidence of deep venous thrombosis in the imaged left upper extremity at this time. Subcutaneous edema. Chest (right side) ultrasound revealed: Findings/Impression: Moderate right pleural effusion is seen. US thoracentesis (performed by Radiology): IMPRESSION: Successful right thoracentesis with 2.4L removed. Repeat chest xry revealed: IMPRESSION: Decrease in the right pleural effusion. No pneumothorax is seen. CTA of chest revealed: Findings: Pulmonary artery: There is no evidence of a pulmonary arterial filling defect to suggest pulmonary embolism. The main pulmonary artery demonstrates normal caliber. Lungs/Pleura: There is large right pleural effusion with atelectasis versus airspace disease in the right lower lobe and right middle lobe. There is small left pleural effusion with likely atelectasis left lower lobe. There are mild upper lobe centrilobular emphysematous changes in the lungs. Heart/Vascular Structures: There is cardiomegaly. There are calcified atherosclerotic changes in the coronary arteries and thoracic aorta. Lymph Nodes: There are several nonspecific prominent right paratracheal mediastinal lymph nodes measuring up to 1.5 cm.. Additional scattered subcentimeter mediastinal lymph nodes are seen. There is no hilar or axillary lymphadenopathy. Musculoskeletal: No acute osseous abnormality. Upper abdomen: Limited portions of the upper abdomen appears grossly unremarkable. IMPRESSION: 1. There is no evidence of pulmonary embolism. 2. Large right pleural effusion with atelectasis versus airspace disease in the right lower and middle lobes. 3. Several nonspecific prominent right paratracheal mediastinal lymph nodes may be reactive. 4. Cardiomegaly. EKG reveals paced rhythm Tele reveals paced rhythm Echocardiogram revealed: Four-chamber dilatation was observed. Left ventricle: Dilated left ventricle. Mild concentric left ventricular hypertrophy was seen. LVEF was around 35%. Diffuse hypokinesis with regional variation was observed. D shaped septum is in favor of pulmonary hypertension. Right ventricle was dilated with reduced systolic function. Both atria were dilated. Pacing wire in right-sided chambers was observed. 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 Aortic valve was trileaflet. There was no aortic stenosis. [id number] aortic regurgitation/insufficiency was observed. Mild mitral regurgitation was observed. Moderate tricuspid regurgitation was observed. Mild pulmonary valve insufficiency was observed. Small pericardial effusion was observed. IVC was dilated with reduced respiratory variation. Right ventricular systolic pressure was assessed at 80 mm Hg. Patient is a 64-year-old gentleman who presented with shortness of breath and left arm swelling. He is noncompliant with followups. He is noncompliant with hemodialysis. Did have ICD upgrade few weeks back. Had been on Eliquis/Plavix as outpatient. Venous duplex of the left upper extremity was inconclusive to rule out internal jugular vein thrombosis. (discussed with Radiologist: suggestion is for CTA of lungs at this point). Has received transfusion. Acute on chronic systolic heart failure End-stage renal disease, Noncompliant with medication, followups and hemodialysis Pancytopenia History of GI bleeding Pleural effusion s/p Thoracentesis Cardiac suggestion for management: Manage on telemetry Aggressive hemodialysis Follow-up electrolytes and kidney function tests and correct abnormalities Full anticoagulation (On Eliquis) Keep left upper ext elevated/ (use sling). Carvedilol: 6.25 BID On Entresto Change Amiodarone to 200 mg HS Awaiting Medtronic interrogation (BiV-ICD) Seen by Hem/Onc, s/p bone marrow biopsy Nephrology follow-up for end-stage renal disease/hemodialysis Hematology evaluation for pancytopenia suggested Further evaluation and management depends on the above and clinical course A total of 55 minutes was spent reviewing the patient record, examining the patient, making a diagnostic and therapeutic plan, discussing this plan with medical personnel, following up on diagnostic studies and following the patient for clinical stability excluding any and all procedures. At least 50% of this time was spent in direct, [id number] contact. Thank you for allowing me to participate in this patient's care. Further recommendations will depend on patient's clinical course. Please do not hesitate to contact me if you have any questions or concerns. This medical document was created using electronic medical record system with [employer] computerized dictation system. Although this document has been carefully reviewed, there may still be some phonetic and typographical errors. These areas are purely typographical due to the imperfection of the software programs, and do not reflect any compromise in the patient's medical care. Plan discussed with: Patient, Other (nurse) Plan discussed with: Patient (Patient and Primary RN ) WILL MONTANEZ May 23, 2024 07:05
[2024-05-23 08:32] VITALS: BP 137/72; PULSE 65; RESP 18; TEMP 98.4; O2SAT 99
--- NOTE | 2024-05-23 09:24 | DVHPNRES ---
Progress Note Has the PT tested + for MRSA If YES, has PT been informed?: Yes Medical Necessity Reason Pt with a Central, PICC or Fol: No Subjective Review of Systems Patient is 64 years old male with past medical history of ESRD on hemodialysis Saturday//Saturday, history of CAD, history of MIX2 , status post CABG, atrial fibrillation, prostatic carcinoma, congestive heart failure with a reduced ejection fraction, LVEF 20%, on pacemaker placed on 04/24/2024 came with a complaint of worsening shortness of breath and left arm swelling. As per patient patient has been having worsening short of breath for last 2 days with PND and orthopnea. Patient also reported left arm and hand swelling for last 2 days and some dry cough. Patient reported that his oxygen saturation dropped at 85% in room air at home. Patient missed last 2 dialysis because of transportation issue as per patient which caused him all the symptoms do develop. Endorsed some loose motion yesterday 2-3 times, watery, no blood. Patient denied any fever, chest pain, acute dysuria, acute joint pain or redness, dysarthria or change in vision. Initial lab workup revealed patient with leukopenia WBC 2.1, anemia with a hemoglobin 7.4, thrombocytopenia with platelet 105, elevated serum creatinine 7.06, low GFR 8, phosphatase 5.6 mildly elevated, BNP a 2 5 elevated D-dimer 3.87, negative for COVID-19 and influenza type A and B.. CXR revealed- Moderate right pleural effusion with atelectasis versus airspace disease in the right lower lung. Doppler Study of the left upper extremity revealed-Left internal jugular vein not visualized. Internal jugular vein thrombus cannot be excluded. Otherwise no sonographic evidence of deep venous thrombosis in the imaged left upper extremity at this time. Chest ultrasound revealed-Moderate right pleural effusion is seen. CT angio of chest revealed- no evidence of pulmonary embolism. Large right pleural effusion with atelectasis versus airspace disease in the right lower and middle lobes. Several nonspecific prominent right paratracheal mediastinal lymph nodes may be reactive. Cardiomegaly. PMH-ESRD on hemodialysis Saturday//Saturday, history of CAD, history of MIX2 , status post CABG, atrial fibrillation, prostatic carcinoma, congestive heart failure with a reduced ejection fraction, LVEF 20%, on pacemaker placed on 04/24/2024 PSH- pacemaker placement, fistula Allergy- NKDA Personal History/ Social History- Patient was seen today at the bedside. Cardiovascular- deny acute chest pain Respiratory- denies cough or short of breath or wheezin Gastrointestinal- denies any rectal bleeding, nausea or vomiting Musculoskeletal-denies acute joint swelling or tenderness or redness Neurological- denies acute dysarthria, dysphagia, change in vision Psychiatry- denies depression or SI or HI Skin- denies acute rash or purpura Patient was seen today for clinical evaluation. Labs and chart reviewed. Patient reports feeling much better than before. Patient's edema has improved significantly since admission. Patient qualify for home oxygen as per ABG report. Patient is being discharged home with home oxygen 3 liter/minute, also with 4 wheel walker. Objective vital signs Vital Sign Date Time Temp Pulse Resp B/P (MAP) Pulse Ox O2 Delivery O2 Flow Rate FiO2 05/23/24 08:32 98.4 65 18 137/72 (93) 99 98.4 05/22/24 20:00 Nasal Cannula* 3 32 Total Intake and Output 05/22/24 05/22/24 05/23/24 15:00 23:00 07:00 Intake Total 410 ml 590 ml 60 ml Output Total 750 ml 180 ml Balance 410 ml -160 ml -120 ml medications Current Medications Medications Dose Ordered Sig/Colleen Route Start Time Stop Time Status Last Admin Dose Admin Nitroglycerin 0.4 mg Q5MINP PRN SL 05/18/24 21:15 Morphine Sulfate 2 mg Q30M PRN IV 05/18/24 21:15 Patient Own Medication 1 DAILY PO 05/19/24 10:00 Sevelamer HCl 800 mg TIDWM PO 05/19/24 08:00 05/22/24 17:53 800 MG Azithromycin 250 ml @ 125 mls/hr DAILY IV 05/20/24 10:00 05/22/24 10:28 125 MLS/HR Ceftriaxone Sodium 50 ml @ 100 mls/hr DAILY@09 IV 05/20/24 09:00 05/22/24 07:50 100 MLS/HR Furosemide 40 mg BIDD IV 05/19/24 18:00 05/23/24 05:24 40 MG Famotidine 20 mg DAILY IV 05/20/24 10:00 05/22/24 10:27 20 MG Apixaban 5 mg BID PO 05/20/24 10:00 05/22/24 21:41 5 MG Carvedilol 6.25 mg Q12HR PO 05/20/24 10:00 05/22/24 21:42 6.25 MG Sacubitril/ Valsartan 1 tab BID PO 05/20/24 10:00 05/22/24 21:41 1 TAB Iron Sucrose 110 ml @ 110 mls/hr DAILY@1200 IV 05/21/24 12:00 05/25/24 12:59 05/22/24 13:06 110 MLS/HR Amiodarone HCl 200 mg DAILY PO 05/22/24 10:00 05/22/24 10:26 200 MG laboratory and microbiology Laboratory Tests 05/23/24 04:48 05/22/24 05:12 Test 05/23/24 04:48 Range/Units Serum Glucose 93 74-106 mg/dL Microbiology Date/Time Source Procedure Growth Status 05/19/24 10:25 Pleural Fluid Gram Stain - Final Resulted 05/19/24 10:25 Pleural Fluid Aerobic Culture - Preliminary Resulted 05/19/24 03:30 Nose MRSA Screen - Final Complete Problem List/Assessment/Plan Problem List/Assessment/Plan #Acute hypoxemic respiratory failure likely due to fluid overload due to ESRD/acute on chronicHFrEF #acute on chronicHFrEF #Right pleural effusion #Possible pneumonia Gram-positive versus Gram-negative #End-stage renal disease (ESRD) on dialysis #Pancytopenia #Hypertension #Coronary artery disease with history of PTCA #Anemia of chronic disease #Atrial fibrillation (AFib) with rapid ventricular response #Hyperlipidemia #Pain at pacemaker surgical site #Noncompliant with medication, followups and hemodialysis # prominent right paratracheal mediastinal lymph nodes may be reactive. # Cardiomegaly. -hemato oncologist, Recommended to Check B12, retic count, direct Rojas, JAMAAL and double-stranded DNA. Bone marrow aspiration biopsy to be done by the IR and sent for pathology flow cytometry and cytogenetics. Try to keep the hemoglobin over seven -. Line Erector discontinued metoprolol and ordered carvedilol 6.25 mg p.o. b.i.d. and ordered Entresto. CT angio of chest revealed- no evidence of pulmonary embolism. Large right pleural effusion with atelectasis versus airspace disease in the right lower and middle lobes. Several nonspecific prominent right paratracheal mediastinal lymph nodes may be reactive. Cardiomegaly. CT-guided biopsy of the posterior pelvic bone was done today on 05/20/2024 Continue Lasix 40 mg IV b.i.d. Continue ceftriaxone 1 g IV daily Continue azithromycin 500 mg IV daily Carvedilol 6.25 mg p.o. b.i.d. Entresto 24-26 mg 1 tab p.o. b.i.d. Continue sevelamer 800 mg p.o. t.i.d. Continue Eliquis 2.5 mg p.o. b.i.d. Continue amiodarone 400 mg p.o. daily Goals of care/advance care planning; FULL CODE; discussed with the patient >15 minutes PUD prophylaxis: Famotidine DVT prophylaxis: On Eliquis Plan discussed with Dr. Sue, nursing staff, patient Total time spent on patient evaluation, chart review, assessment and plan, discussion discussion >30 minutes Plan discussed with: Patient My Orders My Orders Orders - KEILY GREGG Procedure Category Date Status Time Abg W/ Co-Ox RT 05/22/24 Logged 10:41 * Airplane Flight Attendant CONS 05/22/24 Transmitted Consult * Airplane Flight Attendant CONS 05/22/24 Transmitted Consult KEILY GREGG May 23, 2024 09:24
--- NOTE | 2024-05-23 11:22 | DVHPNRES ---
Progress Note Date Seen: May 23, 2024 Resident Creating Document: KEILY GREGG RESIDENT Has the PT tested + for MRSA If YES, has PT been informed?: Yes Medical Necessity Reason Pt with a Central, PICC or Fol: No Subjective Review of Systems Patient is 64 years old male with past medical history of ESRD on hemodialysis Saturday//Saturday, history of CAD, history of MIX2 , status post CABG, atrial fibrillation, prostatic carcinoma, congestive heart failure with a reduced ejection fraction, LVEF 20%, on pacemaker placed on 04/24/2024 came with a complaint of worsening shortness of breath and left arm swelling. As per patient patient has been having worsening short of breath for last 2 days with PND and orthopnea. Patient also reported left arm and hand swelling for last 2 days and some dry cough. Patient reported that his oxygen saturation dropped at 85% in room air at home. Patient missed last 2 dialysis because of transportation issue as per patient which caused him all the symptoms do develop. Endorsed some loose motion yesterday 2-3 times, watery, no blood. Patient denied any fever, chest pain, acute dysuria, acute joint pain or redness, dysarthria or change in vision. Initial lab workup revealed patient with leukopenia WBC 2.1, anemia with a hemoglobin 7.4, thrombocytopenia with platelet 105, elevated serum creatinine 7.06, low GFR 8, phosphatase 5.6 mildly elevated, BNP a 2 5 elevated D-dimer 3.87, negative for COVID-19 and influenza type A and B.. CXR revealed- Moderate right pleural effusion with atelectasis versus airspace disease in the right lower lung. Doppler Study of the left upper extremity revealed-Left internal jugular vein not visualized. Internal jugular vein thrombus cannot be excluded. Otherwise no sonographic evidence of deep venous thrombosis in the imaged left upper extremity at this time. Chest ultrasound revealed-Moderate right pleural effusion is seen. CT angio of chest revealed- no evidence of pulmonary embolism. Large right pleural effusion with atelectasis versus airspace disease in the right lower and middle lobes. Several nonspecific prominent right paratracheal mediastinal lymph nodes may be reactive. Cardiomegaly. PMH-ESRD on hemodialysis Saturday//Saturday, history of CAD, history of MIX2 , status post CABG, atrial fibrillation, prostatic carcinoma, congestive heart failure with a reduced ejection fraction, LVEF 20%, on pacemaker placed on 04/24/2024 PSH- pacemaker placement, fistula Allergy- NKDA Personal History/ Social History- Patient was seen today at the bedside. Cardiovascular- deny acute chest pain Respiratory- denies cough or short of breath or wheezin Gastrointestinal- denies any rectal bleeding, nausea or vomiting Musculoskeletal-denies acute joint swelling or tenderness or redness Neurological- denies acute dysarthria, dysphagia, change in vision Psychiatry- denies depression or SI or HI Skin- denies acute rash or purpura Patient was seen today for clinical evaluation. Labs and chart reviewed. Patient reported feeling very well and recreation to go home. Patient qualify for home oxygen. Patient was discharged home with home oxygen and poor wheel walker. Patient was scheduled for hemodialysis tomorrow. Patient was advised to follow up with the primary care physician in 1 week and also to follow up with the rechecker as per schedule and also to be compliant with chair time. Objective vital signs Vital Sign Date Time Temp Pulse Resp B/P (MAP) Pulse Ox O2 Delivery O2 Flow Rate FiO2 05/23/24 08:32 98.4 65 18 137/72 (93) 99 98.4 05/23/24 07:45 Nasal Cannula* 2 28 Total Intake and Output 05/22/24 05/22/24 05/23/24 15:00 23:00 07:00 Intake Total 410 ml 590 ml 60 ml Output Total 750 ml 180 ml Balance 410 ml -160 ml -120 ml Examination General examination- awake, alert, oriented, conversant HEENT- PEERLA, no acute nasal discharge Cardiovascular- S1-S2 audible, rate and rhythm regular, Respiratory- CTAB Gastrointestinal-nontender, bowel sound+. Nondistended Musculoskeletal-no acute joint swelling or tenderness or redness Lower extremity- leg edema subsided Neurological- cranial nerves intact, no acute dysarthria or dysphagia Psychiatry- denies depression or SI or HI Skin- no acute rash or purpura laboratory and microbiology Laboratory Tests 05/23/24 04:48 05/22/24 05:12 Test 05/23/24 04:48 Range/Units Serum Glucose 93 74-106 mg/dL Microbiology Date/Time Source Procedure Growth Status 05/19/24 10:25 Pleural Fluid Gram Stain - Final Resulted 05/19/24 10:25 Pleural Fluid Aerobic Culture - Preliminary Resulted 05/19/24 03:30 Nose MRSA Screen - Final Complete Problem List/Assessment/Plan Problem List/Assessment/Plan #Acute hypoxemic respiratory failure likely due to fluid overload due to ESRD/acute on chronicHFrEF #acute on chronicHFrEF #Right pleural effusion #Possible pneumonia Gram-positive versus Gram-negative #End-stage renal disease (ESRD) on dialysis #Pancytopenia #Hypertension #Coronary artery disease with history of PTCA #Anemia of chronic disease #Atrial fibrillation (AFib) with rapid ventricular response #Hyperlipidemia #Pain at pacemaker surgical site #Noncompliant with medication, followups and hemodialysis # prominent right paratracheal mediastinal lymph nodes may be reactive. # Cardiomegaly. -hemato oncologist, Recommended to Check B12, retic count, direct Rojas, JAMAAL and double-stranded DNA. Bone marrow aspiration biopsy to be done by the IR and sent for pathology flow cytometry and cytogenetics. Try to keep the hemoglobin over seven -. Post Doctoral Fellow discontinued metoprolol and ordered carvedilol 6.25 mg p.o. b.i.d. and ordered Entresto. CT angio of chest revealed- no evidence of pulmonary embolism. Large right pleural effusion with atelectasis versus airspace disease in the right lower and middle lobes. Several nonspecific prominent right paratracheal mediastinal lymph nodes may be reactive. Cardiomegaly. CT-guided biopsy of the posterior pelvic bone was done today on 05/20/2024 Continue Lasix 40 mg IV b.i.d. Continue ceftriaxone 1 g IV daily Continue azithromycin 500 mg IV daily Carvedilol 6.25 mg p.o. b.i.d. Entresto 24-26 mg 1 tab p.o. b.i.d. Continue sevelamer 800 mg p.o. t.i.d. Continue Eliquis 2.5 mg p.o. b.i.d. Continue amiodarone 400 mg p.o. daily Goals of care/advance care planning; FULL CODE; discussed with the patient >15 minutes PUD prophylaxis: Famotidine DVT prophylaxis: On Eliquis Plan discussed with Dr. Sue, nursing staff, patient Total time spent on patient evaluation, chart review, assessment and plan, discussion discussion >30 minutes Plan discussed with: Patient Plan discussed with: Patient (RN), Other My Orders My Orders Orders - BABU,MOHAMMED RESIDENT Procedure Category Date Status Time * Service Support Representative CONS 05/22/24 Transmitted Consult * Service Support Representative CONS 05/22/24 Transmitted Consult Date of Service: May 23, 2024 Billing Provider: SADE HURT MD Common Visit Codes: [id number] INP/OBS CARE(HIGH) KEILY GREGG RESIDENT May 23, 2024 11:22 SADE HURT MD May 25, 2024 20:59
--- NOTE | 2024-05-23 21:10 | DVHPN2 ---
Progress Note - Dictate Date Seen: May 23, 2024 Has the PT tested + for MRSA If YES, has PT been informed?: Yes Medical Necessity Reason Pt with a Central, PICC or Fol: No Subjective Patient seen and examined at bedside. Remains on supplemental oxygen Overnight events reviewed. vital signs Vital Sign Date Time Temp Pulse Resp B/P (MAP) Pulse Ox O2 Delivery O2 Flow Rate FiO2 05/23/24 08:32 98.4 65 18 137/72 (93) 99 98.4 05/23/24 07:45 Nasal Cannula* 2 28 Total Intake and Output 05/22/24 05/22/24 05/23/24 15:00 23:00 07:00 Intake Total 410 ml 590 ml 60 ml Output Total 750 ml 180 ml Balance 410 ml -160 ml -120 ml objective Gen.: Patient lying in bed in no apparent distress. On supplemental oxygen. Head: Normocephalic, atraumatic. Eyes: EOMI/PERRLA. Ears: Normal hearing. Normal anatomy. Neck/trachea: Trachea midline, supple. Nose: Normal external anatomy. Mouth: Moist mucous membranes. Chest: Decreased air entry bilaterally. No wheezing or rhonchi. Cardiovascular: Positive S1, positive S2. Regular rate and rhythm. Abdomen: Positive bowel sounds in all 4 quadrants. Soft, non-tender, non- distended. : Deferred. Rectal: Deferred. Skin: Warm, dry. Intact. Extremities: 2+ radial pulses bilaterally. No lower extremity edema. Neuro: Awake, alert, oriented x3. No gross motor or sensory deficits. Cranial nerves II through XII intact. Gait not assessed. laboratory and microbiology Laboratory Tests 05/23/24 04:48 05/22/24 05:12 Test 05/23/24 04:48 Range/Units Serum Glucose 93 74-106 mg/dL Assessment/Plan Impression: Acute hypoxic respiratory failure Dependence on supplemental oxygen Pleural effusion, right Atelectasis Acute on chronic systolic CHF ESRD, on hemodialysis Pancytopenia Mediastinal lymphadenopathy Events: Remains on supplemental oxygen, 2 LPM NC Taper O2 as tolerated No new complaints Incentive spirometry Hemodialysis per Nephrology Lasix for diuresis Monitor renal function Patient is stable for discharge from the pulmonary standpoint. Follow up in 1-2 weeks in Pulmonary Clinic. Dispo home per hospitalist. Patient needs monitoring for recurrence of pleural effusion. Follow up w/ Dr. Vikki as outpatient for BMBx results Labs and imaging reviewed. Rest of plan as noted below. Plan: Supplemental oxygen Titrate to keep O2 sats above 92%. CTA demonstrates large right pleural effusion and atelectasis. S/p right thoracentesis with 2.4 L removed from right pleural space. Completed antibiotics Incentive spirometry Diurese w/ Lasix as tolerated Monitor renal function. Monitor electrolytes. Supplement as necessary. Monitor ins and outs. HD per Nephrology DVT prophylaxis. Prognosis: Poor given patient's multiple co-morbidities. Rest of plan per hospitalist and other consultants. Thank you Dr. Persaud, for allowing me to participate in this patient's care. Further recommendations will depend on the patient's clinical course. Please do not hesitate to contact me if you have any questions or concerns. This medical document was created using an electronic medical record system with [employer] dictation system. Although these documentations are being carefully reviewed, there may still be some phonetic and typographical changes. The errors are purely typographical, due to imperfection on the software program, and do not reflect any compromise in the patient's medical care. Plan discussed with: Patient, Other (MITCHEL Dodge) DEVAUGHN LEONG MD May 23, 2024 21:10
[2024-05-27 09:06] LABS: Anti-Nuclear Antibody Direct Negative (Negative)
== END 2024-05-23 10:45 | disposition home or self-care (01) | DRG 177 ==
LOC: EDBD 16:39 → ER 16:46 → TELE 21:15 → TELE-WESTW 23:47
PROVIDERS: ADMIT Internal Medicine Geriatric Medicine; ATTEND Internal Medicine Geriatric Medicine
PROC: 0W993ZX Drainage of Right Pleural Cavity, Percutaneous Approach, Diagnostic (ICD-10-PCS; 2024-05-19)
PROC: 5A1D70Z Performance of Urinary Filtration, Intermittent, Less than 6 Hours Per Day (ICD-10-PCS; 2024-05-19)
PROC: 07DT3ZX Extraction of Bone Marrow, Percutaneous Approach, Diagnostic (ICD-10-PCS; principal; 2024-05-20)
PROC: 30233N1 Transfusion of Nonautologous Red Blood Cells into Peripheral Vein, Percutaneous Approach (ICD-10-PCS; 2024-05-21)
PROC: 5A1D70Z Performance of Urinary Filtration, Intermittent, Less than 6 Hours Per Day (ICD-10-PCS; 2024-05-21)
DX: J15.69 Pneumonia due to other Gram-negative bacteria (principal); I50.23 Acute on chronic systolic (congestive) heart failure; J96.01 Acute respiratory failure with hypoxia; N18.6 End stage renal disease; I48.20 Chronic atrial fibrillation, unspecified; D61.818 Other pancytopenia; I31.39 Other pericardial effusion (noninflammatory); J91.8 Pleural effusion in other conditions classified elsewhere; D50.9 Iron deficiency anemia, unspecified; I25.10 Atherosclerotic heart disease of native coronary artery without angina pectoris; E78.5 Hyperlipidemia, unspecified; I27.20 Pulmonary hypertension, unspecified; I11.0 Hypertensive heart disease with heart failure; I07.1 Rheumatic tricuspid insufficiency; I35.1 Nonrheumatic aortic (valve) insufficiency; I37.1 Nonrheumatic pulmonary valve insufficiency; J15.9 Unspecified bacterial pneumonia; Z99.2 Dependence on renal dialysis; Z79.01 Long term (current) use of anticoagulants; Z99.81 Dependence on supplemental oxygen; Z95.810 Presence of automatic (implantable) cardiac defibrillator; Z98.61 Coronary angioplasty status; Z91.199 Patient's noncompliance with other medical treatment and regimen due to unspecified reason; Z85.46 Personal history of malignant neoplasm of prostate; Z82.49 Family history of ischemic heart disease and other diseases of the circulatory system; Z79.899 Other long term (current) drug therapy
CPT/HCPCS: 10005; 36415; 36430; 36600; 71045; 71275; 72192; 76604; 76942; 77012; 80048; 80162; 80320; 82140; 82607; 82728; 82805; 83540; 83550; 83615; 83735; 83880; 83986; 84100; 84155; 84165; 84484; 85007; 85014; 85018; 85025; 85027; 85045; 85379; 85610; 85730; 86038; 86850; 86880; 86900; 86901; 86920; 87070; 87081; 87205; 87426; 87804; 89051; 90935; 93005; 93306; 93971; 97163; 99291; G0378; J1756; J2003; J2250; J3490; P9047

== ENCOUNTER 2024-06-27 10:24 | Inpatient (IN) | payer MEDICARE, OTHER ==
[~2024-06-27] VITALS: Ht 177.8 cm; Wt 86.5 kg
[~2024-06-27 10:24] MED LIST changes: +CARV6.2551 PO; +DOXY100C79 PO; +FAMO20TA10 PO; +FURO1TAB33 PO; -METO-6 PO; +SACU1TAB PO; +SEVE800T8 PO
--- NOTE | 2024-06-27 11:08 | ED.PDOC ---
History of Present Illness Chief Complaint: Eye Problem Comments one week of flu symptoms, with eye congestion, discharge, diarrhea, so missed HD for 3 sessions. today with upper lid swelling. pt usually uses 2-3LO2 at night. on RA, EMT reports O2 sat was 88%, but pt only reports mild sob Time Seen by MD: 10:47 Primary Care Provider: OOA Reviewed Notes: Nurses Notes, Medications, Allergies Allergies: Coded Allergies: NO KNOWN ALLERGIES (Unverified , 04/07/24) Home Meds Active Scripts Famotidine (PEPCID TABLET) 20 Mg Tb, 1 TAB PO BID for 30 Days, #60 TAB 5 Refills Prov:[facility] 05/21/24 Sacubitril-Valsartan (Entresto 24-26 mg) 1 Tab Tab, 1 TAB PO BID for 30 Days, #60 TAB Prov:[facility] 05/21/24 Sevelamer Carbonate (Renvela) 800 Mg Tab, 1 TAB PO TID for 30 Days, #90 TAB 3 Refills Prov:[facility] 05/21/24 Carvedilol (Carvedilol) 6.25 Mg Tab, 1 TAB PO BID for 30 Days, #60 TAB 1 Refill Prov:[facility] 05/21/24 Furosemide (Lasix) 20 Mg Tb, 40 MG PO DAILY for 30 Days, #30 TAB Prov:[facility] 05/21/24 Doxycycline (Monohydrate) (Doxycycline) 100 Mg Cap, 100 MG PO BID for 5 Days, #10 CAP Prov:[facility] 05/21/24 Amiodarone HCl (Amiodarone HCl) 200 Mg Tab, 400 MG PO DAILY for 30 Days, #60 TAB Prov:MONIQUE MACDONALD [employer]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 04/29/24 Digoxin (Lanoxin) 125 Mcg Tab, 0.125 MG PO EOD for 30 Days, #30 TAB Prov:MONIQUE MACDONALD RO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 04/29/24 Reported Medications Apixaban Base (ELIQUIS) 2.5 Mg Tab, 2.5 MG PO BID for 60 Days, #60 04/09/24 Dapagliflozin Propanediol (Farxiga) 10 Mg Tab, 1 TAB PO DAILY for 30 Days, #30 11/28/24 Aripiprazole (Aripiprazole) 5 Mg Tab, 1 TAB PO DAILY for 30 Days, #30 04/09/24 Information Source: Patient, Emergency Med Personnel Mode of Arrival: EMS Severity: Moderate Timing: Days Duration: Since onset Past Medical History PAST MEDICAL HISTORY: CAD, Cancer, CHF, ESRD, High Lipids, MD Past Medical History (Other): h/o prostate cancer, pericardial, pleural effusion Surgical History: Pacemaker Surgical History (Other): stents x3 Family History Family History: Unknown Social History Smoker: Non-Smoker Alcohol: Denies ETOH Use Drugs: Denies Drug Use Lives In: Home Constitutional: denies: chills, diaphoresis, fatigue, fever, malaise, sweats, weakness, others EENTM: reports: others (eye discharge, upper lids swelling); denies: blurred vision, double vision, ear bleeding, ear discharge, ear drainage, ear pain, ear ringing, eye pain, eye redness, hearing loss, mouth pain, mouth swelling, nasal discharge, nose bleeding, nose congestion, nose pain, photophobia, tearing, throat pain, throat swelling, voice changes Respiratory: reports: SOB at rest; denies: cough, hemoptysis, orthopnea, shortness of breath, SOB with excertion, stridor, wheezing, others Cardiovascular: reports: edema; denies: chest pain, dizzy spells, diaphoresis, Dyspnea on exertion, irregular heart beat, left arm pain, lightheadedness, palpitations, PND, syncope, others Gastrointestinal: reports: diarrhea; denies: abdomen distended, abdominal pain, blood streaked bowels, constipated, dysphagia, difficulty swallowing, hematemesis, melena, nausea, poor appetite, poor fluid intake, rectal bleeding, rectal pain, vomiting, others Genitourinary: denies: burning, dysuria, flank pain, frequency, hematuria, incontinence, penile discharge, penile sore, pain, testicle pain, testicle swelling, urgency, others Neurological: denies: dizziness, fainting, headache, left sided numbness, left sided weakness, numbness, paresthesia, pre-existing deficit, right sided numbness, right sided weakness, seizure, speech problems, tingling, tremors, weakness, others Musculoskeletal: denies: back pain, gout, joint pain, joint swelling, muscle pain, muscle stiffness, neck pain, others Integumetry: reports: others (leg swelling); denies: bruises, change in color, change in hair/nails, dryness, laceration, lesions, lumps, rash, wounds Allergic/Immunocompromised: denies: Difficulty Healing, Frequent Infections, Hives, Itching, others Hematologic/Lymphatic: denies: anemia, blood clots, easy bleeding, easy bruising, swollen glands, others Endocrine: denies: excessive hunger, excessive sweating, excessive thirst, excessive urination, flushing, intolerance to cold, intolerance to heat, unexplained weight gain, unexplained weight loss, others Psychiatric: denies: anxiety, bipolar disorder, depression, hopeless, panic disorder, schizophrenia, sleepless, suicidal, others All Other Systems: Reviewed and Negative Physical Exam General Appearance: No Apparent Distress, Normal HEENT: Pharynx Normal, TMs Normal, Other (upper lids edematous. bilateral conjunctival discharge) Neck: Full Range of Motion, Non-Tender, Normal, Normal Inspection Respiratory: Chest Non-Tender, Lungs Clear, No Accessory Muscle Use, No Respiratory Distress, Normal Breath Sounds, Other (distant BS) Cardiovascular: No Edema, No JVD, No Murmur, No Gallop, Normal Peripheral Pulses, Regular Rate/Rhythm Breast Exam: Deferred Gastrointestinal: No Organomegaly, Non Tender, No Pulsatile Mass, Normal Bowel Sounds, Soft Genitalia: Deferred Pelvic: Deferred Rectal: Deferred Extremities: No calf tenderness, Normal capillary refill, Normal inspection, Normal range of motion, Non-tender, Other (3+ edema. bruits and thriulls in right upper arm AVF) Musculoskeletal : Apperance: Normal Neurologic: Alert, senior bookkeeper II-XII nml as Tested, No Motor Deficits, Normal Affect, Normal Mood, No Sensory Deficits Cerebellar Function: Normal Reflexes: Normal Skin: Dry, Normal Color, Warm Lymphatic: No Adenopathy Was a procedure done? Was a procedure done?: No Differential Dx Considerations may include: URI, viral syndrome, PNA, chf, hyperkalemia, acidosis, noncompliance, volume overload X-Ray, Labs, Meds, VS Vital Signs Date Time Temp Pulse Resp B/P (MAP) Pulse Ox O2 Delivery O2 Flow Rate FiO2 06/27/24 14:39 90 18 145/90 (108) 97 06/27/24 12:27 148/78 06/27/24 12:26 147/78 06/27/24 12:20 95 18 100 Nasal Cannula* 2 28 06/27/24 12:19 98.1 89 18 147/78 (101) 100 98.1 06/27/24 11:15 88 06/27/24 10:37 97.6 84 14 135/85 (102) 95 Lab Test 06/27/24 13:55 06/27/24 11:40 06/27/24 11:33 06/27/24 10:45 Range/Units Troponin I High Sensitivity 40 41 40 </=54 ng/L POC Glucose 96 70-106 mg/dl White Blood Count 2.9 L 4.4-10.8 10^3/uL Red Blood Count 2.21 L 4.5-5.90 10^6/uL Hemoglobin 7.2 L 13.5-17.5 g/dL Hematocrit 22.0 L 41.0-53.0 % Mean Corpuscular Volume 99.7 80.0-100.0 fL Mean Corpuscular Hemoglobin 32.6 H 28.0-32.0 pg Mean Corpuscular Hemoglobin Concent 32.7 32.0-36.0 g/dL Red Cell Distribution Width 18.9 H 11.8-14.3 % Platelet Count 102 L 140-450 10^3/uL Mean Platelet Volume 6.7 L 6.9-10.8 fL Neutrophils (%) (Auto) 37.0-80.0 % Lymphocytes (%) (Auto) 10.0-50.0 % Monocytes (%) (Auto) 0.0-12.0 % Eosinophils (%) (Auto) 0.0-7.0 % Basophils (%) (Auto) 0.0-2.0 % Neutrophils # (Auto) 1.6-8.6 10 ^3/uL Lymphocytes # (Auto) 0.4-5.4 10 ^3/uL Monocytes # (Auto) 0-1.3 10 ^3/uL Differential Total Cells Counted 100.0 100 Neutrophils % (Manual) 52 37.0-80.0 Band Neutrophils % (Manual) 3 Lymphocytes % (Manual) 22 10.0-50.0 Monocytes % (Manual) 6 0-12 Eosinophils % (Manual) 17 H 0-7 Basophils % (Manual) 0 0.0-2.0 Metamyelocytes % (manual) 0 Myelocytes % (Manual) 0 Promyelocytes % (Manual) 0 Blast Cells % (Manual) 0 Reactive Lymphocytes 0 Platelet Estimate Decreased Anisocytosis (manual) Slight Stomatocytes Few Sodium Level 139 136-145 mmol/L Potassium Level 5.2 H 3.5-5.1 mmol/L Chloride Level 101 98-107 mmol/L Carbon Dioxide Level 26 20-31 mmol/L Anion Gap 12 5-15 Blood Urea Nitrogen 61 H 9-23 mg/dL Creatinine 8.29 H 0.700-1.30 mg/dL Glomerular Filtration Rate Calc 7 >90 mL/min BUN/Creatinine Ratio 7.4 L 10.0-20.0 Serum Glucose 87 74-106 mg/dL Calcium Level 10.1 8.7-10.4 mg/dL B-Type Natriuretic Peptide 2509.04 0-100 pg/mL Current Medications Medications (Trade) Dose Ordered Sig/Colleen Route Start Time Stop Time Status Last Admin Furosemide (Lasix Injection) 80 mg ONCE ONCE IV 06/27/24 11:00 06/27/24 11:01 DC 06/27/24 12:27 Bumetanide (Bumex Injection) 1 mg ONCE ONCE IV 06/27/24 11:00 06/27/24 11:01 DC 06/27/24 12:26 [place] [id number] Ph: [phone] DIAGNOSTIC IMAGING Diagnostic Imaging Report : [id number] Signed PATIENT: SUSHMA THAYER ACCT: [id number] UNIT: [id number] : 1960 LOC: ER ROOM / BED: / AGE / SEX: 64 / M ADM STATUS: REG ER SERVICE 1054 ORDERING PHYSICIAN: YAJAIRA VIVEROS MD PROCEDURE(s): CXRP - CHEST PORTABLE REASON: chf ORDER NUMBER(s): [id number], ACCESSION NUMBER(s): [id number] EXAM: XR Chest, 1 View CLINICAL INDICATION: chf TECHNIQUE: Frontal view of the chest. COMPARISON: XY CHEST PORTABLE on DOS: 05/19/24, XY CHEST PORTABLE on DOS: 05/18/24, XY CHEST PORTABLE on DOS: 04/26/24, XY CHEST PORTABLE on DOS: 04/25/24, XY CHEST PORTABLE on DOS: 04/24/24 FINDINGS: LUNGS AND PLEURAL SPACES: See below. HEART: Cardiomegaly with moderate congestion. Left cardiac. MEDIASTINUM: Unremarkable. Normal mediastinal contour. BONES/JOINTS: Unremarkable. No acute fracture. OTHER FINDINGS: . . . .. IMPRESSION: Cardiomegaly with moderate congestion. ATED BY: SUSHMA COLLINS MD DICTATED DATE/TIME: 06/27/24 1118 SIGNED BY: SUSHMA COLLINS MD SIGNED DATE/TIME: 06/27/24 1118 CC: Time of 1ST Reevaluation: 11:17 Reevaluation 1ST: Unchanged Time of 2ND Reevaluation: 14:55 Reevaluation 2ND: Improved Patient Education/Counseling: Diagnosis, Treatment, Prognosis, Need For Follow Up Family Education/Counseling: No Family Present Additional Information pt is noncompliant with his HD. he has volume overload, but mild hyperkalemia and no other emergent need for HD. i have consulted nephro and pt will be admitted for HD Departure 1 Departure Time of Disposition: 14:56 Impression: Primary Impression: Viral syndrome Additional Impressions: Conjunctivitis Qualified Codes: B30.9 - Viral conjunctivitis, unspecified Systolic congestive heart failure Qualified Codes: I50.21 - Acute systolic (congestive) heart failure End stage renal disease Noncompliance Volume overload Qualified Codes: E87.79 - Other fluid overload Disposition: ADMITTED INPATIENT Admit to: [facility] Condition: Serious Discharged With: Self Critical Care Note Critical Care Time?: Yes (1 hr-critical care time only) Critical care comment: Due to concerns for patients condition deteriorating, the care required my highest level of attention and readiness to intervene. I assessed the patient, reviewed the medical records, ordered the appropriate tests and treatments, then reassessed for results and responsiveness. I communicated with medical personnel and consultants and formulated a plan of care. Total critical care time excludes any procedures Stability Stability form required: No Heart Score Heart Score: Heart Score Response (Comments) Value History N/A 0 EKG N/A 0 Age N/A 0 Risk Factors N/A 0 Troponin N/A 0 Total 0 I personally scribed for YAJAIRA VIVEROS MD ([email or web address]) on 06/27/24 at 14:26. Electronically submitted by Bret Starr ([email or web address]). YAJAIRA VIVEROS MD Jun 27, 2024 11:08
--- NOTE | 2024-06-27 11:20 | DVH ---
EXAM: XR Chest, 1 View CLINICAL INDICATION: chf TECHNIQUE: Frontal view of the chest. COMPARISON: XY CHEST PORTABLE on DOS: 05/19/24, XY CHEST PORTABLE on DOS: 05/18/24, XY CHEST PORTABLE o n DOS: 04/26/24, XY CHEST PORTABLE on DOS: 04/25/24, XY CHEST PORTABLE on DOS: 04/24/24 FINDINGS: LUNGS AND PLEURAL SPACES: See below. HEART: Cardiomegaly with moderate congestion. Left cardiac. MEDIASTINUM: Unremarkable. Normal mediastinal contour. BONES/JOINTS: Unremarkable. No acute fracture. OTHER FINDINGS: . . . .. IMPRESSION: Cardiomegaly with moderate congestion.
[2024-06-27 11:37] LABS: White Blood Cell 2.9 10^3/uL (4.4-10.8)
[2024-06-27 11:40] LABS: Hemoglobin 7.2 g/dL (13.5-17.5); Mean Corpuscular Hemoglobin 32.6 pg (28.0-32.0); Mean Corpuscular Hgb Conc. 32.7 g/dL (32.0-36.0); Mean Corpuscular Volume 99.7 fL (80.0-100.0); Platelet Count (auto) 102 10^3/uL (140-450); Red Blood Cells 2.21 10^6/uL (4.5-5.90); Red Cell Distribution Width 18.9 % (11.8-14.3)
[2024-06-27 11:49] LABS: Basophils % (manual) 0 (0.0-2.0); Blast Cells 0; Chloride 101 mmol/L (98-107); Metamyelocytes % 0; Myelocytes % 0; Promyelocytes % 0; Reactive Lymphocytes 0; Sodium 139 mmol/L (136-145)
[2024-06-27 11:50] LABS: Anion Gap 12 (5-15); Calcium 10.1 mg/dL (8.7-10.4); Carbon Dioxide 26 mmol/L (20-31)
[2024-06-27 11:55] LABS: BUN/Creatinine Ratio 7.4 (10.0-20.0); Glucose 87 mg/dL (74-106)
[2024-06-27 11:59] LABS: Blood Urea Nitrogen 61 mg/dL (9-23); Potassium 5.2 mmol/L (3.5-5.1)
[2024-06-27 12:20] VITALS: PULSE 95; RESP 18; O2SAT 100
[2024-06-27] MEDS: BUMETANIDE 1mg/4ml VIAL (0.25mg/ml) IV ONE (12:26)
[2024-06-27] MEDS: FUROSEMIDE 100 MG/10ML VIAL IV ONE (12:27)
[2024-06-27 12:35] LABS: Anisocytosis Slight; Band Neutrophils % (manual) 3; Eosinophils % (manual) 17 (0-7); Lymphocytes % (manual) 22 (10.0-50.0); Monocytes % (manual) 6 (0-12); Platelet Estimate Decreased; Stomatocytes Few
[2024-06-27] MEDS: BACITRACIN-POLYMYXIN B OPTH(EYE) OINT 3.5GM OP ONE (16:10)
[2024-06-27 16:57] LABS: Rapid Influenza A Negative (Negative); Rapid Influenza B Negative (Negative)
[2024-06-27 16:58] LABS: COVID19 ANTIGEN SOFIA FIA NEGATIVE (NEGATIVE)
[2024-06-27] MEDS: cefTRIAXone 1GM/50ML D5W 50 ML IV ONE (17:34)
[2024-06-27] MEDS: FUROSEMIDE 40 MG/4 ML VIAL IV SCH (17:34)
--- NOTE | 2024-06-27 17:40 | DVHHP2 ---
History of Present Illness Reason for Visit: Flu-like symptoms and eye irritation History of Present Illness Stanford Fuentes is a 64-year-old male with past medical history of CAD, NH, BIV AICD, PTCA x 3 stents, hyperlipidemia, hypertension, AFib CHF, ESRD on HD (T//), anemia, prostate cancer, pleural effusion who presents to the ED for flu-like symptoms and eye irritation x3 days. Patient states that he was ill 1 week ago. He also states that he lives in a board and care and uses 2 L of oxygen continuously. Patient states that he does not walk and uses a wheelchair to get around. He also states that he is on apixaban and is compliant with all his medications. Patient denies chest pain, shortness of breath, fever, chills, lightheadedness, dizziness, abdominal pain, nausea, vomiting, and diarrhea. Cardiovascular: AFIB, CAD, CHF, HTN, NH, hyperipidemia Heme/Onc: Anemia NOS Renal/: Chronic renal failure Past Medical History Prostate cancer Past Surgical History: Other (PTCA x3 and BIV AICD) Family History: Other (Both ) Smoke: No ALCOHOL: none Drugs: None Lives: Other Domestic Violence: Neg Review of Systems Allergies: Coded Allergies: NO KNOWN ALLERGIES (Unverified , 04/07/24) Exam Vital Signs Vital Signs Date Time Temp Pulse Resp B/P (MAP) Pulse Ox O2 Delivery O2 Flow Rate FiO2 06/27/24 16:39 85 18 139/88 (105) 95 06/27/24 12:20 Nasal Cannula* 2 28 06/27/24 12:19 98.1 98.1 Labs/Xrays Labs Test 06/27/24 16:15 06/27/24 13:55 06/27/24 11:33 06/27/24 10:45 Range/Units Influenza Type A Antigen Negative Negative Influenza Type B Antigen Negative Negative SARS-CoV-2 Antigen (Rapid) Negative NEGATIVE Troponin I High Sensitivity 40 </=54 ng/L POC Glucose 96 70-106 mg/dl White Blood Count 2.9 L 4.4-10.8 10^3/uL Red Blood Count 2.21 L 4.5-5.90 10^6/uL Hemoglobin 7.2 L 13.5-17.5 g/dL Hematocrit 22.0 L 41.0-53.0 % Mean Corpuscular Volume 99.7 80.0-100.0 fL Mean Corpuscular Hemoglobin 32.6 H 28.0-32.0 pg Mean Corpuscular Hemoglobin Concent 32.7 32.0-36.0 g/dL Red Cell Distribution Width 18.9 H 11.8-14.3 % Platelet Count 102 L 140-450 10^3/uL Mean Platelet Volume 6.7 L 6.9-10.8 fL Neutrophils (%) (Auto) 37.0-80.0 % Lymphocytes (%) (Auto) 10.0-50.0 % Monocytes (%) (Auto) 0.0-12.0 % Eosinophils (%) (Auto) 0.0-7.0 % Basophils (%) (Auto) 0.0-2.0 % Neutrophils # (Auto) 1.6-8.6 10 ^3/uL Lymphocytes # (Auto) 0.4-5.4 10 ^3/uL Monocytes # (Auto) 0-1.3 10 ^3/uL Differential Total Cells Counted 100.0 100 Neutrophils % (Manual) 52 37.0-80.0 Band Neutrophils % (Manual) 3 Lymphocytes % (Manual) 22 10.0-50.0 Monocytes % (Manual) 6 0-12 Eosinophils % (Manual) 17 H 0-7 Basophils % (Manual) 0 0.0-2.0 Metamyelocytes % (manual) 0 Myelocytes % (Manual) 0 Promyelocytes % (Manual) 0 Blast Cells % (Manual) 0 Reactive Lymphocytes 0 Platelet Estimate Decreased Anisocytosis (manual) Slight Stomatocytes Few Sodium Level 139 136-145 mmol/L Potassium Level 5.2 H 3.5-5.1 mmol/L Chloride Level 101 98-107 mmol/L Carbon Dioxide Level 26 20-31 mmol/L Anion Gap 12 5-15 Blood Urea Nitrogen 61 H 9-23 mg/dL Creatinine 8.29 H 0.700-1.30 mg/dL Glomerular Filtration Rate Calc 7 >90 mL/min BUN/Creatinine Ratio 7.4 L 10.0-20.0 Serum Glucose 87 74-106 mg/dL Calcium Level 10.1 8.7-10.4 mg/dL B-Type Natriuretic Peptide 2509.04 0-100 pg/mL EXAM: XR Chest, 1 View CLINICAL INDICATION: chf TECHNIQUE: Frontal view of the chest. COMPARISON: XY CHEST PORTABLE on DOS: 05/19/24, XY CHEST PORTABLE on DOS: 05/18/24, XY CHEST PORTABLE on DOS: 04/26/24, XY CHEST PORTABLE on DOS: 04/25/24, XY CHEST PORTABLE on DOS: 04/24/24 FINDINGS: LUNGS AND PLEURAL SPACES: See below. HEART: Cardiomegaly with moderate congestion. Left cardiac. MEDIASTINUM: Unremarkable. Normal mediastinal contour. BONES/JOINTS: Unremarkable. No acute fracture. OTHER FINDINGS: . . . .. IMPRESSION: Cardiomegaly with moderate congestion. Assessment/Plan Assessment/Plan Assessment/Plan: Acute chronic CHF exacerbation Cardiomegaly Conjunctivitis Pancytopenia Hyperkalemia ALLI History of ESRD on HD (T//) Labs Type and screen Polymyxin eye drops Diuretics ordered in ED Manual differential COVID Flu EKG Troponin negative x3 BNP IV antibiotics-ceftriaxone A.m. labs Last echo 05/19/2024 EF 35% Nephro consult History of CAD History of NH PTCA x3 BIV AICD History of AFib Continue home medications Monitor Chronic Hypertension Continue home meds Chronic hyperlipidemia continue home meds History of prostate cancer Follow up outpatient with PCP FEN/PPX Diet Hep-Lock DVT ppx continue home medication, apixaban PUD ppx - continue home medication, famotidine Discussed plan of care with nurse Home medications reconciled Admit to med surge Plan discussed with: Patient My Orders Orders - ANDREA JUAN SENIOR ACCOUNT REPRESENTATIVE Procedure Category Date Status Time Admit ADMIT 06/27/24 Verified 17:07 Allergies LETICIA 06/27/24 Verified 17:07 Code Status CODE 06/27/24 Verified 17:07 Ondansetron Hcl PHA 06/27/24 Verified (Zofran) 17:15 Complete Blood Count LAB 06/28/24 Verified 04:00 Comprehensive LAB 06/28/24 Verified Metabolic Panel 04:00 Cardiac DIET 06/27/24 Verified Diet-2gna,Lofat,Lochol Dinner Acetaminophen Tablet PHA 06/27/24 Verified (Tylenol Tablet) 17:15 Type And Screen BBK 06/27/24 Verified 17:07 Bacitracin-Polymyxin PHA 06/27/24 Verified B (Ophth) (Polyspor 22:00 Furosemide Injection PHA 06/27/24 Verified (Lasix Injection) 18:00 Ceftriaxone Ivpb PHA 06/28/24 Verified Rocephin 09:00 Ceftriaxone Ivpb PHA 06/27/24 Verified Rocephin 17:15 Date of Service: Jun 27, 2024 Billing Provider: ANDREA JUAN Common Visit Codes: [id number] INP/OBS CARE (HIGH) ANDREA JUAN Jun 27, 2024 17:40
[2024-06-27 18:11] VITALS: PULSE 88; RESP 24; O2SAT 98
[2024-06-27 18:17] VITALS: BP 137/90; PULSE 88; RESP 24; TEMP 98.6; O2SAT 98
[2024-06-27 20:00] VITALS: PULSE 67; RESP 18; O2SAT 94
[2024-06-27 21:00] VITALS: BP 137/71; PULSE 94; RESP 19; TEMP 97.5; O2SAT 90
[2024-06-27] MEDS: BACITRACIN-POLYMYXIN B OPTH(EYE) OINT 3.5GM OP SCH (22:00)
[2024-06-27] MEDS ORDERED: FAMOTIDINE 20 MG TAB PO SCH (22:00)
[2024-06-27] MEDS: APIXABAN 2.5 MG TAB PO SCH (22:51)
[2024-06-27] MEDS: CARVEDILOL 3.125 MG TAB PO SCH (22:56)
[2024-06-27] MEDS: SEVELAMER 800 MG TAB PO SCH (23:52)
[2024-06-28] VITALS (70 sets, daily range): BP systolic 75–208; BP diastolic 19–97; PULSE 60–90; RESP 13–21; TEMP 95.4–98.9; O2SAT 85–100
[2024-06-28] MEDS: FAMOTIDINE 20 MG TAB PO SCH
[2024-06-28] MEDS: ONDANSETRON HCL 4 MG/2 ML VIAL IV PRN (05:28)
[2024-06-28 06:32] LABS: Hematocrit 22.6 % (41.0-53.0); Hemoglobin 7.2 g/dL (13.5-17.5); Mean Corpuscular Volume 100.6 fL (80.0-100.0); White Blood Cell 2.6 10^3/uL (4.4-10.8)
[2024-06-28 06:33] LABS: Mean Corpuscular Hgb Conc. 31.9 g/dL (32.0-36.0); Platelet Count (auto) 111 10^3/uL (140-450); Red Blood Cells 2.25 10^6/uL (4.5-5.90); Red Cell Distribution Width 18.9 % (11.8-14.3)
[2024-06-28 06:43] LABS: Albumin 3.9 g/dL (3.2-4.8); Alkaline Phosphatase 92 U/L (46-116); Anion Gap 11 (5-15); BUN/Creatinine Ratio 7.2 (10.0-20.0); Carbon Dioxide 26 mmol/L (20-31); Chloride 101 mmol/L (98-107); Glucose 86 mg/dL (74-106); Sodium 138 mmol/L (136-145)
[2024-06-28 06:44] LABS: Total Protein 6.6 g/dL (5.7-8.2)
[2024-06-28 06:51] LABS: Alanine Aminotransferase < 9 U/L (7-40); Aspartate Aminotransferase 9 U/L (13-40); Bilirubin, Total 0.7 mg/dL (0.2-1.0); Blood Urea Nitrogen 61 mg/dL (9-23)
[2024-06-28 06:52] LABS: Basophils % (manual) 0 (0.0-2.0); Blast Cells 0; Metamyelocytes % 0; Myelocytes % 0; Promyelocytes % 0; Reactive Lymphocytes 0
[2024-06-28 07:00] LABS: Potassium 5.7 mmol/L (3.5-5.1)
[2024-06-28] MEDS: SODIUM BICARB 8.4% 50Meq/50ml SYR INJ IV ONE (07:45)
[2024-06-28] MEDS: FUROSEMIDE 20 MG/2 ML VIAL IV ONE (07:45)
[2024-06-28] MEDS: InsuLIN REG 1unit/0.01ml Soln (100units/ml) IV ONE (07:45)
[2024-06-28] MEDS ORDERED: VANCOMYCIN PER PHARMACY 0 MG IV SCH (08:00)
[2024-06-28] MEDS: MIDAZOLAM DRIP 50 mg/50mL 50 ML IV SCH (08:00)
[2024-06-28] MEDS: fentaNYL Drip 2500mCg/250mlNS 250 ML IV SCH (08:00)
[2024-06-28] MEDS: ACCU-CHEK COMFORT CURVE STRIP VI SCH ×2 (08:00→17:56)
[2024-06-28] MEDS ORDERED: HEPARIN DRIP/D5W 100UNITS/ML 250 ML IV SCH (08:00)
[2024-06-28] MEDS ORDERED: HEPARIN SODIUM (PORCINE) 5000 UNITS/ML 1ML VIAL IV ONE (08:00)
[2024-06-28] MEDS: fentaNYL Drip 2500mCg/250mlNS 250 ML IV ONE (08:06)
[2024-06-28] MEDS: MIDAZOLAM DRIP 50 mg/50mL 50 ML IV ONE (08:07)
[2024-06-28 08:15] LABS: Magnesium 2.7 mg/dL (1.6-2.6)
[2024-06-28] MEDS: SODIUM CHL 0.9% 1000 ML BAG XX ONE (08:15)
[2024-06-28 08:31] LABS: Eosinophils # (auto) 0.3 10 ^3/uL (0-0.8); Neutrophils # (auto) 1.3 10 ^3/uL (1.6-8.6); Red Cell Distribution Width 18.9 % (11.8-14.3); White Blood Cell 2.9 10^3/uL (4.4-10.8)
[2024-06-28 08:32] LABS: Basophils # (auto) 0 10 ^3/uL (0-0.2); Basophils % (auto) 0.9 % (0.0-2.0); Eosinophils % (auto) 10.4 % (0.0-7.0); Hematocrit 25.4 % (41.0-53.0); Lymphocytes % (auto) 34.5 % (10.0-50.0); Mean Corpuscular Hemoglobin 32.3 pg (28.0-32.0); Mean Corpuscular Hgb Conc. 31.6 g/dL (32.0-36.0); Mean Corpuscular Volume 102.4 fL (80.0-100.0); Monocytes # (auto) 0.3 10 ^3/uL (0-1.3); Neutrophils % (auto) 45.2 % (37.0-80.0); Nucleated Red Blood Cells % 0.4 %; Platelet Count (auto) 106 10^3/uL (140-450); Red Blood Cells 2.48 10^6/uL (4.5-5.90)
[2024-06-28 08:36] LABS: Phosphorus 9.3 mg/dL (2.4-5.1)
[2024-06-28 08:39] LABS: Lactic Acid w/Reflex 4.7 mmol/L (0.4-2.0)
[2024-06-28 08:43] LABS: Band Neutrophils % (manual) 3; Eosinophils % (manual) 10 (0-7); Lymphocytes % (manual) 9 (10.0-50.0); Monocytes % (manual) 2 (0-12)
[2024-06-28 08:44] LABS: Platelet Estimate Decreased
[2024-06-28] MEDS: NOREPINEPHRINE 8 MG/250ML KIT 250 ML IV ONE (08:45)
[2024-06-28 09:00] LABS: INR 1.31 (0.9-1.15); Partial Thromboplastin Time 29.1 SEC (24.5-34.5); Prothrombin Time 13.5 sec (9.3-11.8)
[2024-06-28] MEDS ORDERED: cefTRIAXone 1GM/50ML D5W 50 ML IV SCH (09:00)
--- NOTE | 2024-06-28 09:17 | DVH ---
Procedure: XY CHEST PORTABLE 06/28/2024 08:47 AM Indication: post intubation/ngt placement Comparison: XY CHEST PORTABLE on DOS: 06/27/24, XY CHEST PORTABLE on DOS: 05/19/24, XY CHEST PORTABLE on DOS: 05/18/24 TECHNIQUE: XY CHEST PORTABLE FINDINGS: Medical devices: The ETT ends above the level of elziabeth at the level of clavicular heads. The enteri c tube extends to the stomach. Multi lead left upper chest wall AICD with leads extending to the card iac chambers. Cardiomediastinal: The heart is moderately enlarged. Pulmonary vasculature is prominent. Atherosclero tic calcification of the aortic arch noted. Lungs: There is interval enlargement of now moderate-sized right pleural effusion and interval develo pment of patchy consolidation in the right middle and left upper lung zone. Small opacities are note d in the left lung base. Diffuse bilateral interstitial opacities are noted. No pneumothorax. Bones/soft tissues: No acute abnormality is noted. Right subclavian vascular stents noted. IMPRESSION: 1. Worsening CHF with moderate right pleural effusion , interval development of extensive bilateral i nterstitial opacities and large patchy multifocal bilateral consolidations that may represent edema o r pneumonia. Recommend clinical and biochemical correlation.
[2024-06-28 09:50] LABS: Base Excess -5.1 mmol/L (-2.0-3.0)
[2024-06-28 09:58] LABS: Albumin 3.8 g/dL (3.2-4.8); Alkaline Phosphatase 93 U/L (46-116); Anion Gap 12 (5-15); BUN/Creatinine Ratio 7.2 (10.0-20.0); Carbon Dioxide 27 mmol/L (20-31); Chloride 102 mmol/L (98-107); Glucose 99 mg/dL (74-106); Sodium 141 mmol/L (136-145)
[2024-06-28 10:00] LABS: Total Protein 6.4 g/dL (5.7-8.2)
[2024-06-28] MEDS: AMIODARONE HCL 200 MG TAB PO SCH (10:00)
[2024-06-28] MEDS ORDERED: EMPAGLIFLOZIN 10 MG TAB PO SCH (10:00)
[2024-06-28 10:02] LABS: Bilirubin, Total 0.7 mg/dL (0.2-1.0)
[2024-06-28 10:11] LABS: Alanine Aminotransferase 91 U/L (7-40); Aspartate Aminotransferase 177 U/L (13-40); Blood Urea Nitrogen 61 mg/dL (9-23); Calcium 11.1 mg/dL (8.7-10.4); Potassium 5.1 mmol/L (3.5-5.1)
[2024-06-28] MEDS: VANCOMYCIN 1GM/250ML KIT 250 ML IV ONE (10:20)
[2024-06-28] MEDS ORDERED: CALCIUM CHLOR(10%) 100MG/ML 10ML SYRINGE IV ONE (10:23)
[2024-06-28] MEDS ORDERED: EPINEPHrine HCL 1 MG/10 ML SYRG IV ONE (10:24)
--- NOTE | 2024-06-28 10:35 | DVHINCON2 ---
Date of service: Jun 28, 2024 History of Present Illness 64 yo M with complex medical hx including cad sp pci, afib sp ablation, hx of ppm, esrd on hd admitted for weakness/ sob after missing HD. pt had ?PEA arret per RN and cv consulted stat. pt is now intubated, no pressors.K was elevated . pt was not on tele Past Medical History reviewed Family History: Hypertension G8 MOTHER G8 FATHER Allergies: Coded Allergies: NO KNOWN ALLERGIES (Unverified , 04/07/24) Home Meds Active Scripts Famotidine (PEPCID TABLET) 20 Mg Tb, 1 TAB PO BID for 30 Days, #60 TAB 5 Refills Prov:[facility] 05/21/24 Sacubitril-Valsartan (Entresto 24-26 mg) 1 Tab Tab, 1 TAB PO BID for 30 Days, #60 TAB Prov:[facility] 05/21/24 Sevelamer Carbonate (Renvela) 800 Mg Tab, 1 TAB PO TID for 30 Days, #90 TAB 3 Refills Prov:[facility] 05/21/24 Carvedilol (Carvedilol) 6.25 Mg Tab, 1 TAB PO BID for 30 Days, #60 TAB 1 Refill Prov:[facility] 05/21/24 Furosemide (Lasix) 20 Mg Tb, 40 MG PO DAILY for 30 Days, #30 TAB Prov:[facility] 05/21/24 Doxycycline (Monohydrate) (Doxycycline) 100 Mg Cap, 100 MG PO BID for 5 Days, #10 CAP Prov:[facility] 05/21/24 Amiodarone HCl (Amiodarone HCl) 200 Mg Tab, 400 MG PO DAILY for 30 Days, #60 TAB Prov:MONIQUE MACDONALD COMPUTATIONAL CHEMIST 04/29/24 Digoxin (Lanoxin) 125 Mcg Tab, 0.125 MG PO EOD for 30 Days, #30 TAB Prov:MONIQUE MACDONALD COMPUTATIONAL CHEMIST 04/29/24 Reported Medications Apixaban Base (ELIQUIS) 2.5 Mg Tab, 2.5 MG PO BID for 60 Days, #60 04/09/24 Dapagliflozin Propanediol (Farxiga) 10 Mg Tab, 1 TAB PO DAILY for 30 Days, #30 04/09/24 Aripiprazole (Aripiprazole) 5 Mg Tab, 1 TAB PO DAILY for 30 Days, #30 04/09/24 Current Medications Current Medications Medications (Trade) Dose Ordered Sig/Colleen Route PRN Reason Start Time Stop Time Status Last Admin Ondansetron HCl (Zofran) 4 mg Q4HP PRN IV NAUSEA / VOMITING 06/27/24 17:15 06/28/24 05:28 Acetaminophen (Tylenol Tablet) 650 mg Q6HP PRN PO PAIN SCALE 1-3 OR TEMP>100.4 06/27/24 17:15 Bacitracin/ Polymyxin B Sulfate (Polysporin Eye Oint) 1 applic TID OP 06/27/24 22:00 Furosemide (Lasix Injection) 40 mg BIDD IV 06/27/24 18:00 06/28/24 06:42 Ceftriaxone Sodium 50 ml @ 100 mls/hr DAILY@09 IV 06/28/24 09:00 06/28/24 08:11 DC Amiodarone HCl (Cordarone Tablet) 400 mg DAILY PO 06/28/24 10:00 Apixaban (Eliquis) 2.5 mg BID PO 06/27/24 22:00 06/28/24 08:11 DC 06/27/24 22:51 Famotidine (Pepcid Tablet) 20 mg EOD PO 06/27/24 22:00 06/28/24 00:00 DC Patient Own Medication 1 tab DAILY PO 06/28/24 10:00 Carvedilol (Coreg Tablet) 6.25 mg BID PO 06/27/24 22:00 06/27/24 22:56 Empaglifozin (Jardiance) 1 mg DAILY PO 06/28/24 10:00 06/28/24 08:11 DC Sevelamer HCl (Renagel) 800 mg TIDWM PO 06/27/24 18:00 06/27/24 23:52 Famotidine (Pepcid Tablet) 20 mg EOD PO 06/28/24 00:00 06/28/24 08:11 DC Vancomycin HCl 0 ml @ 0 mls/hr UD IV 06/28/24 08:00 Piperacillin Sod/ Tazobactam Sod 100 ml @ 25 mls/hr Q12H IV 06/28/24 15:00 Diagnostic Test (Pha) (Accu-Chek Comfort Curve T) 1 strip Q1HR 06/28/24 08:00 Dextrose 50 ml UD PRN IV Blood Sugar LESS THAN 60 06/28/24 08:00 Pantoprazole Sodium (Protonix) 40 mg DAILY IV 06/29/24 10:00 Heparin Sodium/ Dextrose 250 ml @ 13.896 mls/ hr Q18H IV 06/28/24 08:00 UNV Norepinephrine Bitartrate 250 ml @ 3.75 mls/hr Q24H IV 06/28/24 10:30 UNV Midazolam HCl 50 ml @ 1 mls/hr Q24H IV 06/28/24 10:30 UNV Fentanyl Citrate 250 ml @ 2.5 mls/hr Q24H IV 06/28/24 10:30 UNV Review of Systems not obtained Vital Signs Vital Signs Date Time Temp Pulse Resp B/P (MAP) Pulse Ox O2 Delivery O2 Flow Rate FiO2 06/28/24 10:22 98.1 79 16 208/97 100 100 98.1 06/27/24 20:00 Nasal Cannula* 4 Physical Exam severe facial swelling intubated sedated s1 s2 rrr diffuse rhonchi, abd obese soft +leg edema Labs/Diagnostic Data Labs Test 06/28/24 09:40 06/28/24 08:10 06/28/24 07:55 06/28/24 05:14 Range/Units Blood Gas Specimen Type Arterial Blood Gas Sample Site Left brachial Blood Gas Patient Temperature 37.0 Arterial Blood Date Drawn [id number] Arterial Blood pH 7.233 *L 7.350-7.450 Arterial Blood Partial Pressure CO2 53.9 H 35.0-48.0 mmHg Arterial Blood Partial Pressure O2 122.7 H 83.0-108.0 mmHg Arterial Blood HCO3 22.2 21.0-28.0 mmol/L Arterial Blood Oxygen Saturation 97.1 94.0-98.0 % Arterial Blood Base Excess -5.1 L -2.0-3.0 mmol/L Arterial Blood Oxyhemoglobin 94.9 94.0-98.0 % Arterial Blood Carboxyhemoglobin 1.6 H 0.5-1.5 % Arterial Blood Methemoglobin 0.7 0.0-1.5 % Chilo Test N/a Blood Gas Total Hemoglobin 7.60 L 13.5-17.5 g/dL Blood Gas Set Respiration Rate 16.0 Blood Gas Modality Vent - ac Blood Gas Spontaneous Rate 16 FiO2 % 100.0 Blood Gas Tidal Volume 500.0 Blood Gas PEEP or CPAP 5.0 Blood Gas Critical Value Read Back Yes Blood Gas Notified Whom hang Tran dnp Blood Gas Notified Time [id number] Blood Gas Notified By jay Sarabia rt. POC Glucose 155 H 70-106 mg/dl White Blood Count 2.9 L 4.4-10.8 10^3/uL Red Blood Count 2.48 L 4.5-5.90 10^6/uL Hemoglobin 8.0 L 13.5-17.5 g/dL Hematocrit 25.4 #L 41.0-53.0 % Mean Corpuscular Volume 102.4 H 80.0-100.0 fL Mean Corpuscular Hemoglobin 32.3 H 28.0-32.0 pg Mean Corpuscular Hemoglobin Concent 31.6 L 32.0-36.0 g/dL Red Cell Distribution Width 18.9 H 11.8-14.3 % Platelet Count 106 L 140-450 10^3/uL Mean Platelet Volume 7.4 6.9-10.8 fL Neutrophils (%) (Auto) 45.2 37.0-80.0 % Lymphocytes (%) (Auto) 34.5 10.0-50.0 % Monocytes (%) (Auto) 9.0 0.0-12.0 % Eosinophils (%) (Auto) 10.4 H 0.0-7.0 % Basophils (%) (Auto) 0.9 0.0-2.0 % Neutrophils # (Auto) 1.3 L 1.6-8.6 10 ^3/uL Lymphocytes # (Auto) 1.0 0.4-5.4 10 ^3/uL Monocytes # (Auto) 0.3 0-1.3 10 ^3/uL Eosinophils # (Auto) 0.3 0-0.8 10 ^3/uL Basophils # (Auto) 0 0-0.2 10 ^3/uL Nucleated Red Blood Cells 0.4 % Prothrombin Time 13.5 H 9.3-11.8 sec Prothrombin Time INR 1.31 H 0.9-1.15 Activated Partial Thromboplast Time 29.1 24.5-34.5 SEC Sodium Level 141 136-145 mmol/L Potassium Level 5.1 3.5-5.1 mmol/L Chloride Level 102 98-107 mmol/L Carbon Dioxide Level 27 20-31 mmol/L Anion Gap 12 5-15 Blood Urea Nitrogen 61 H 9-23 mg/dL Creatinine 8.52 H 0.700-1.30 mg/dL Glomerular Filtration Rate Calc 6 >90 mL/min BUN/Creatinine Ratio 7.2 L 10.0-20.0 Serum Glucose 99 74-106 mg/dL Lactic Acid Level 4.7 *H 0.4-2.0 mmol/L Calcium Level 11.1 H 8.7-10.4 mg/dL Total Bilirubin 0.7 0.2-1.0 mg/dL Aspartate Amino Transferase (AST) 177 H 13-40 U/L Alanine Aminotransferase (ALT) 91 H 7-40 U/L Alkaline Phosphatase 93 46-116 U/L Total Protein 6.4 5.7-8.2 g/dL Albumin 3.8 3.2-4.8 g/dL Differential Total Cells Counted 100.0 100 Neutrophils % (Manual) 76 37.0-80.0 Band Neutrophils % (Manual) 3 Lymphocytes % (Manual) 9 L 10.0-50.0 Monocytes % (Manual) 2 0-12 Eosinophils % (Manual) 10 H 0-7 Basophils % (Manual) 0 0.0-2.0 Metamyelocytes % (manual) 0 Myelocytes % (Manual) 0 Promyelocytes % (Manual) 0 Blast Cells % (Manual) 0 Reactive Lymphocytes 0 Platelet Estimate Decreased Phosphorus Level 9.3 H 2.4-5.1 mg/dL Magnesium Level 2.7 H 1.6-2.6 mg/dL Test 06/27/24 16:15 06/27/24 13:55 06/27/24 10:45 Range/Units Influenza Type A Antigen Negative Negative Influenza Type B Antigen Negative Negative SARS-CoV-2 Antigen (Rapid) Negative NEGATIVE Troponin I High Sensitivity 40 </=54 ng/L Anisocytosis (manual) Slight Stomatocytes Few B-Type Natriuretic Peptide 2509.04 0-100 pg/mL Assessment cardiac arrest ?PEA afib hx cad s/p pci hx of ppm currently V paced hyperkalemia esrd on hd copd Plan/Recommendation plan for HD today pressors as needed, not at this time recommend tele monitoring ICU transfer when feasible acidemia--intubation and HD planned will consult his primary cards to follow 40 mins critical care time spent Plan discussed with: Other (rn) ROSA M KELLY MD Jun 28, 2024 10:35
[2024-06-28] MEDS: PANTOPRAZOLE 40 MG/10 ML VIAL INJ IV ONE (10:36)
--- NOTE | 2024-06-28 11:39 | RESUS ---
CODE BLUE ASSESSSMENT History of Events History of Events: PER CONTENT PRODUCER RN, PATIENT WAS LAST SEEN NORMAL AND RESPONSIVE AT APPROXIMATELY 0720. PER DAYSHIFT RN, UPON CHECKING ON PATIENT, PATIENT WAS FOUND TO BE UNRESPONSIVE TO VERBAL AND PAINFUL STIMULI. NO PALPABLE PULSE. CPR STARTED BY STAFF Initial Information Date: Jun 28, 2024 Time: 07:36 [place] Arrest[place] Witnessed: No CPR started by whom: Hospital Staff Last seen well: 0720 Pre-Hospital Care: ACLS Type of arrest: Cardiac Spontaneous Respirations: No Pulse Present: No Monitoring: Telemetry Crash Cart Opened and Supplies: Yes Airway Ventilation Breathing at Onset: Assisted Oxygen Delivery Method: Ambu-Bag Artificial Ventilation: Bag/Endo tube Intubation Size: 7.5 cuffed Intubated by: SHANNAN VELA Intubation Attempts: 1 Intubated orally: Yes Tube secured at: 24 CO2 indicator used: Yes Confirmation: Auscultation Suctioning (Oral/Tracheal): Yes Circulation Circulation #1: Time: 07:39 Circulation Comment: ASYSTOLE Circulation #2: Time: 07:41 Circulation Comment: ASYSTOLE Circulation #3: Time: 07:44 Circulation Comment: ASYSTOLE Circulation #4: Time: 07:46 Circulation Comment: ASYSTOLE Circulation #5: Time: 07:49 Pulse Rate (adult): 80 Blood Pressure Systolic: 146 Blood Pressure Diastolic: 66 Circulation Comment: SINUS RHYTHM 80BPM ROSC Procedure - IV Procedure - IV : IV start time: 07:38 IV Side: Left IV Location: Upper Arm Anterior IV Catheter Type: Peripheral IV IV Placed: In Hospital IV Placed by MITCHEL QIU IV Gauge: 22 IV Line Care: Saline Flush Medications & Response Medications and Responses #1: Medication Time: 07:39 ADULT Medications Given ADULT: Epinephrine 1 mg Route of Administration: IV EKG Rhythm: Asystole Medications and Responses #2: Medication Time: 07:42 ADULT Medications Given ADULT: Epinephrine 1 mg, Sodium Bacarbinate 50 meq Route of Administration: IV EKG Rhythm: Asystole Medications and Responses #3: Medication Time: 07:44 ADULT Medications Given ADULT: Calcium Chloride 10 mL Route of Administration: IV EKG Rhythm: Asystole Medications and Responses #4: Medication Time: 07:45 ADULT Medications Given ADULT: Epinephrine 1 mg Route of Administration: IV EKG Rhythm: Asystole Medications and Responses #5: Medication Time: 07:48 ADULT Medications Given ADULT: Epinephrine 1 mg Route of Administration: IV EKG Rhythm: Asystole Medications and Responses #6: Medication Time: 07:49 ADULT Medications Given ADULT: Sodium Bacarbinate 50 meq, D50 (amp) Route of Administration: IV EKG Rhythm: Sinus Rhythm Blood Pressure Systolic: 146 Blood Pressure Diastolic: 66 Respiratory Rate: 14 Procedure - Central Venous Cat Comment: DR GANN AT BEDSIDE POST ROSC FOR CENTRAL LINE PLACEMENT TO RIGHT FEMORAL Nurses Notes [place] Coma Scale Eye Opening: None (1) [place] Coma Scale Verbal: None (1) [place] Coma Scale Motor: None (1) Pupil Reaction: Sluggish Bedside Blood Glucose: 76 Time Code Ended Time Code Ended: 07:49 Post Arrest Status: Ventilated Outcome of code: Successful Family notified: No Attending called: Yes Code Team Present: ENGINEERING TECHNOLOGY INSTRUCTOR SHADE GUTIERREZ RT DANE RT MARÍA CAN VACUUM TESTER LAZARUS ICU HAIRSPRING TRUER ROBERT CAN VACUUM TESTER JEAN PAUL CRAWFORD ROSC Time of ROSC: 07:49 Tere Cook Jun 28, 2024 11:39
[2024-06-28] MEDS: PIPERACILLIN-TAZOB 3.375GM 100 ML IV ONE (12:00)
--- NOTE | 2024-06-28 13:06 | DVHINCON2 ---
Date of service: Jun 28, 2024 Referring Physician Kim Tran NP Reason for Consultation ESRD, on dialysis History of Present Illness Mr Fuentes is a 64-year-old male with known history of ESRD on dialysis who presented for further evaluation and management of flu-like symptoms and eye irritation, pt missed several scheduled days of oupt dialysis. Hx of CAD, ME, BIV AICD, PTCA x 3 stents, hyperlipidemia, hypertension, AFib, CHF, ESRD on HD (T//), anemia, prostate cancer, and pleural effusion. Consult received for management of ESRD on dialysis. Labs reviewed from 06/28 513- Na 138, K+ 5.7, BUN 61, creat 8.51, repeat labs 06/28/24 at 0755 K+ 5.1, BUN 61, creat 8.52. Pt is currently being dialyzed. As pt is s/p code and is currently ventilated and sedated, most of the history was obtained through the chart. Past Medical History CAD, ME, BIV AICD, PTCA x 3 stents, hyperlipidemia, hypertension, AFib, CHF, ESRD on HD (T//), anemia, prostate cancer, pleural effusion Past Surgical History As per HPI Allergies: Coded Allergies: NO KNOWN ALLERGIES (Unverified , 04/07/24) Home Meds Active Scripts Famotidine (PEPCID TABLET) 20 Mg Tb, 1 TAB PO BID for 30 Days, #60 TAB 5 Refills Prov:[facility] 05/21/24 Sacubitril-Valsartan (Entresto 24-26 mg) 1 Tab Tab, 1 TAB PO BID for 30 Days, #60 TAB Prov:[facility] 05/21/24 Sevelamer Carbonate (Renvela) 800 Mg Tab, 1 TAB PO TID for 30 Days, #90 TAB 3 Refills Prov:[facility] 05/21/24 Carvedilol (Carvedilol) 6.25 Mg Tab, 1 TAB PO BID for 30 Days, #60 TAB 1 Refill Prov:[facility] 05/21/24 Furosemide (Lasix) 20 Mg Tb, 40 MG PO DAILY for 30 Days, #30 TAB Prov:[facility] 05/21/24 Doxycycline (Monohydrate) (Doxycycline) 100 Mg Cap, 100 MG PO BID for 5 Days, #10 CAP Prov:KEILY GREGG RESIDENT 05/21/24 Amiodarone HCl (Amiodarone HCl) 200 Mg Tab, 400 MG PO DAILY for 30 Days, #60 TAB Prov:MONIQUE MACDONALD BOARD LAYER 04/29/24 Digoxin (Lanoxin) 125 Mcg Tab, 0.125 MG PO EOD for 30 Days, #30 TAB Prov:MONIQUE MACDONALD BOARD LAYER 04/29/24 Reported Medications Apixaban Base (ELIQUIS) 2.5 Mg Tab, 2.5 MG PO BID for 60 Days, #60 04/09/24 Dapagliflozin Propanediol (Farxiga) 10 Mg Tab, 1 TAB PO DAILY for 30 Days, #30 04/09/24 Aripiprazole (Aripiprazole) 5 Mg Tab, 1 TAB PO DAILY for 30 Days, #30 04/09/24 Current Medications Current Medications Medications (Trade) Dose Ordered Sig/Colleen Route PRN Reason Start Time Stop Time Status Last Admin Bacitracin/ Polymyxin B Sulfate (Polysporin Eye Oint) 1 applic TID OP 06/27/24 22:00 06/28/24 14:22 Furosemide (Lasix Injection) 40 mg BIDD IV 06/27/24 18:00 06/28/24 06:42 Ceftriaxone Sodium 50 ml @ 100 mls/hr DAILY@09 IV 06/28/24 09:00 06/28/24 08:11 DC Amiodarone HCl (Cordarone Tablet) 400 mg DAILY PO 06/28/24 10:00 Apixaban (Eliquis) 2.5 mg BID PO 06/27/24 22:00 06/28/24 08:11 DC 06/27/24 22:51 Famotidine (Pepcid Tablet) 20 mg EOD PO 06/27/24 22:00 06/28/24 00:00 DC Patient Own Medication 1 tab DAILY PO 06/28/24 10:00 Carvedilol (Coreg Tablet) 6.25 mg BID PO 06/27/24 22:00 06/27/24 22:56 Empaglifozin (Jardiance) 1 mg DAILY PO 06/28/24 10:00 06/28/24 08:11 DC Sevelamer HCl (Renagel) 800 mg TIDWM PO 06/27/24 18:00 06/28/24 10:49 Famotidine (Pepcid Tablet) 20 mg EOD PO 06/28/24 00:00 06/28/24 08:11 DC Vancomycin HCl 0 ml @ 0 mls/hr UD IV 06/28/24 08:00 Piperacillin Sod/ Tazobactam Sod 100 ml @ 25 mls/hr Q12H IV 06/28/24 15:00 Diagnostic Test (Pha) (Accu-Chek Comfort Curve T) 1 strip Q1HR 06/28/24 08:00 06/28/24 13:38 DC 06/28/24 09:00 Dextrose 50 ml UD PRN IV Blood Sugar LESS THAN 60 06/28/24 08:00 Pantoprazole Sodium (Protonix) 40 mg DAILY IV 06/29/24 10:00 Heparin Sodium/ Dextrose 250 ml @ 13.896 mls/ hr Q18H IV 06/28/24 08:00 UNV Norepinephrine Bitartrate 250 ml @ 3.75 mls/hr Q24H IV 06/28/24 10:30 06/28/24 14:38 DC 06/28/24 13:18 Midazolam HCl 50 ml @ 1 mls/hr Q24H IV 06/28/24 10:30 06/28/24 15:37 Fentanyl Citrate 250 ml @ 2.5 mls/hr Q24H IV 06/28/24 10:30 06/28/24 08:00 Diagnostic Test (Pha) (Accu-Chek Comfort Curve T) 1 strip Q6HR 06/28/24 18:00 Norepinephrine Bitartrate 32 mg/ Sodium Chloride 250 ml @ 0.938 mls/ hr Q24H IV 06/28/24 14:30 06/28/24 16:00 Family History: Hypertension G8 MOTHER G8 FATHER Review of Systems Unable to be obtained as patient is currently ventilated and sedated H&P Exam Vital Signs/I&O Vital Sign Date Time Temp Pulse Resp B/P (MAP) Pulse Ox O2 Delivery O2 Flow Rate FiO2 06/28/24 16:35 60 20 143/67 (92) 100 40 06/28/24 16:00 Mechanical Ventilator+ 06/28/24 15:45 97.2 207.0 06/27/24 20:00 4 Intake and Output 06/27/24 06/28/24 19:00 07:00 Intake Total 50 ml 150 ml Balance 50 ml 150 ml Intake Oral 150 ml IV Total 50 ml # Voids 2 Physical Exam Gen: ill appearing, obese HEENT: Pupils equal and reactive to light and accommodation, mmm Pulm: Rhonchi RUL & RML CVS: RRR, Normal S1 and S2, no rub Abd: Normoactive bowel sounds, soft, nondistended Ext: Nonpitting edema BLE Skin: No rash Neuro: ventilated and sedated Labs/Diagnostic Data Labs/Diagnostic Data Laboratory Tests Test 06/28/24 16:20 06/28/24 11:10 06/28/24 09:40 06/28/24 08:10 Range/Units Blood Gas Specimen Type Arterial Arterial Blood Gas Sample Site Left radial Left brachial Blood Gas Patient Temperature 37.0 37.0 Arterial Blood Date Drawn [id number] Arterial Blood pH 7.346 L 7.233 *L 7.350-7.450 Arterial Blood Partial Pressure CO2 41.0 53.9 H 35.0-48.0 mmHg Arterial Blood Partial Pressure O2 261.1 H 122.7 H 83.0-108.0 mmHg Arterial Blood HCO3 21.9 22.2 21.0-28.0 mmol/L Arterial Blood Oxygen Saturation 99.2 H 97.1 94.0-98.0 % Arterial Blood Base Excess -3.5 L -5.1 L -2.0-3.0 mmol/L Arterial Blood Oxyhemoglobin 97.4 94.9 94.0-98.0 % Arterial Blood Carboxyhemoglobin 1.4 1.6 H 0.5-1.5 % Arterial Blood Methemoglobin 0.4 0.7 0.0-1.5 % Chilo Test Modified N/a Blood Gas Total Hemoglobin 7.90 L 7.60 L 13.5-17.5 g/dL Blood Gas Set Respiration Rate 20.0 16.0 Blood Gas Modality Vent - ac Vent - ac Blood Gas Spontaneous Rate 20 16 FiO2 % 80.0 100.0 Blood Gas Tidal Volume 500.0 500.0 Blood Gas PEEP or CPAP 5.0 5.0 Lactic Acid Level 2.7 *H 0.4-2.0 mmol/L Blood Gas Critical Value Read Back Yes Blood Gas Notified Whom ikm Tran dnp Blood Gas Notified Time [id number] Blood Gas Notified By jay Sarabia rt. POC Glucose 155 H 70-106 mg/dl Test 06/28/24 07:57 06/28/24 07:55 06/28/24 05:14 06/27/24 16:15 Range/Units POC Glucose 76 70-106 mg/dl White Blood Count 2.9 L 2.6 L 4.4-10.8 10^3/uL Red Blood Count 2.48 L 2.25 L 4.5-5.90 10^6/uL Hemoglobin 8.0 L 7.2 L 13.5-17.5 g/dL Hematocrit 25.4 #L 22.6 L 41.0-53.0 % Mean Corpuscular Volume 102.4 H 100.6 H 80.0-100.0 fL Mean Corpuscular Hemoglobin 32.3 H 32.0 28.0-32.0 pg Mean Corpuscular Hemoglobin Concent 31.6 L 31.9 L 32.0-36.0 g/dL Red Cell Distribution Width 18.9 H 18.9 H 11.8-14.3 % Platelet Count 106 L 111 L 140-450 10^3/uL Mean Platelet Volume 7.4 7.1 6.9-10.8 fL Neutrophils (%) (Auto) 45.2 37.0-80.0 % Lymphocytes (%) (Auto) 34.5 10.0-50.0 % Monocytes (%) (Auto) 9.0 0.0-12.0 % Eosinophils (%) (Auto) 10.4 H 0.0-7.0 % Basophils (%) (Auto) 0.9 0.0-2.0 % Neutrophils # (Auto) 1.3 L 1.6-8.6 10 ^3/uL Lymphocytes # (Auto) 1.0 0.4-5.4 10 ^3/uL Monocytes # (Auto) 0.3 0-1.3 10 ^3/uL Eosinophils # (Auto) 0.3 0-0.8 10 ^3/uL Basophils # (Auto) 0 0-0.2 10 ^3/uL Nucleated Red Blood Cells 0.4 % Prothrombin Time 13.5 H 9.3-11.8 sec Prothrombin Time INR 1.31 H 0.9-1.15 Activated Partial Thromboplast Time 29.1 24.5-34.5 SEC Sodium Level 141 138 136-145 mmol/L Potassium Level 5.1 5.7 *H 3.5-5.1 mmol/L Chloride Level 102 101 98-107 mmol/L Carbon Dioxide Level 27 26 20-31 mmol/L Anion Gap 12 11 5-15 Blood Urea Nitrogen 61 H 61 H 9-23 mg/dL Creatinine 8.52 H 8.51 H 0.700-1.30 mg/dL Glomerular Filtration Rate Calc 6 6 >90 mL/min BUN/Creatinine Ratio 7.2 L 7.2 L 10.0-20.0 Serum Glucose 99 86 74-106 mg/dL Lactic Acid Level 4.7 *H 0.4-2.0 mmol/L Calcium Level 11.1 H 10.0 8.7-10.4 mg/dL Total Bilirubin 0.7 0.7 0.2-1.0 mg/dL Aspartate Amino Transferase (AST) 177 H 9 L 13-40 U/L Alanine Aminotransferase (ALT) 91 H < 9 7-40 U/L Alkaline Phosphatase 93 92 46-116 U/L Total Protein 6.4 6.6 5.7-8.2 g/dL Albumin 3.8 3.9 3.2-4.8 g/dL Differential Total Cells Counted 100.0 100 Neutrophils % (Manual) 76 37.0-80.0 Band Neutrophils % (Manual) 3 Lymphocytes % (Manual) 9 L 10.0-50.0 Monocytes % (Manual) 2 0-12 Eosinophils % (Manual) 10 H 0-7 Basophils % (Manual) 0 0.0-2.0 Metamyelocytes % (manual) 0 Myelocytes % (Manual) 0 Promyelocytes % (Manual) 0 Blast Cells % (Manual) 0 Reactive Lymphocytes 0 Platelet Estimate Decreased Phosphorus Level 9.3 H 2.4-5.1 mg/dL Magnesium Level 2.7 H 1.6-2.6 mg/dL Influenza Type A Antigen Negative Negative Influenza Type B Antigen Negative Negative SARS-CoV-2 Antigen (Rapid) Negative NEGATIVE Test 06/27/24 13:55 06/27/24 11:40 06/27/24 11:33 06/27/24 10:45 Range/Units Troponin I High Sensitivity 40 41 40 </=54 ng/L POC Glucose 96 70-106 mg/dl White Blood Count 2.9 L 4.4-10.8 10^3/uL Red Blood Count 2.21 L 4.5-5.90 10^6/uL Hemoglobin 7.2 L 13.5-17.5 g/dL Hematocrit 22.0 L 41.0-53.0 % Mean Corpuscular Volume 99.7 80.0-100.0 fL Mean Corpuscular Hemoglobin 32.6 H 28.0-32.0 pg Mean Corpuscular Hemoglobin Concent 32.7 32.0-36.0 g/dL Red Cell Distribution Width 18.9 H 11.8-14.3 % Platelet Count 102 L 140-450 10^3/uL Mean Platelet Volume 6.7 L 6.9-10.8 fL Neutrophils (%) (Auto) 37.0-80.0 % Lymphocytes (%) (Auto) 10.0-50.0 % Monocytes (%) (Auto) 0.0-12.0 % Eosinophils (%) (Auto) 0.0-7.0 % Basophils (%) (Auto) 0.0-2.0 % Neutrophils # (Auto) 1.6-8.6 10 ^3/uL Lymphocytes # (Auto) 0.4-5.4 10 ^3/uL Monocytes # (Auto) 0-1.3 10 ^3/uL Differential Total Cells Counted 100.0 100 Neutrophils % (Manual) 52 37.0-80.0 Band Neutrophils % (Manual) 3 Lymphocytes % (Manual) 22 10.0-50.0 Monocytes % (Manual) 6 0-12 Eosinophils % (Manual) 17 H 0-7 Basophils % (Manual) 0 0.0-2.0 Metamyelocytes % (manual) 0 Myelocytes % (Manual) 0 Promyelocytes % (Manual) 0 Blast Cells % (Manual) 0 Reactive Lymphocytes 0 Platelet Estimate Decreased Anisocytosis (manual) Slight Stomatocytes Few Sodium Level 139 136-145 mmol/L Potassium Level 5.2 H 3.5-5.1 mmol/L Chloride Level 101 98-107 mmol/L Carbon Dioxide Level 26 20-31 mmol/L Anion Gap 12 5-15 Blood Urea Nitrogen 61 H 9-23 mg/dL Creatinine 8.29 H 0.700-1.30 mg/dL Glomerular Filtration Rate Calc 7 >90 mL/min BUN/Creatinine Ratio 7.4 L 10.0-20.0 Serum Glucose 87 74-106 mg/dL Calcium Level 10.1 8.7-10.4 mg/dL B-Type Natriuretic Peptide 2509.04 0-100 pg/mL Plan/Recommendation IMP ESRD on dialysis T//S- pt missed several outpt dialysis appts Hyperkalemia- repeat K+ was 5.1, and pt is currently being dialyzed s/p cardiac arrest Acute resp failure Pleural effusions CHF exacerbation Hx of Afib Hx of ME HTN REC Hemodialysis today Chemistry panel, CBC Cardiology and Pulmonology on board Will continue to follow Case discussed with Dr. Emilio Lewis Plan discussed with: Other (nurse, Dr. Emilio Lewis) FRANK DELGADO Jun 28, 2024 13:06
--- NOTE | 2024-06-28 13:07 | DVHINCON2 ---
Date of service: Jun 28, 2024 Referring Physician hang beck Reason for Consultation vent management History of Present Illness pt is a 64 yo male, multiple med problems, CHF, pacemaker/ICD, ESRD/HD. Pt presented with cardiac arrest on the floor req CPR 10 min. Intubated, seen on ICU. lytes: K 5.7, lactate elevated mildly, CXR: fluid ovrload, right pl eff Family History: Hypertension G8 MOTHER G8 FATHER Allergies: Coded Allergies: NO KNOWN ALLERGIES (Unverified , 04/07/24) Home Meds Active Scripts Famotidine (PEPCID TABLET) 20 Mg Tb, 1 TAB PO BID for 30 Days, #60 TAB 5 Refills Prov:[facility] 05/21/24 Sacubitril-Valsartan (Entresto 24-26 mg) 1 Tab Tab, 1 TAB PO BID for 30 Days, #60 TAB Prov:[facility] 05/21/24 Sevelamer Carbonate (Renvela) 800 Mg Tab, 1 TAB PO TID for 30 Days, #90 TAB 3 Refills Prov:[facility] 05/21/24 Carvedilol (Carvedilol) 6.25 Mg Tab, 1 TAB PO BID for 30 Days, #60 TAB 1 Refill Prov:[facility] 05/21/24 Furosemide (Lasix) 20 Mg Tb, 40 MG PO DAILY for 30 Days, #30 TAB Prov:[facility] 05/21/24 Doxycycline (Monohydrate) (Doxycycline) 100 Mg Cap, 100 MG PO BID for 5 Days, #10 CAP Prov:[facility] 05/21/24 Amiodarone HCl (Amiodarone HCl) 200 Mg Tab, 400 MG PO DAILY for 30 Days, #60 TAB Prov:[employer]IQUE MACDON[employer]D [employer] 04/29/24 Digoxin (Lanoxin) 125 Mcg Tab, 0.125 MG PO EOD for 30 Days, #30 TAB Prov:MONIQUE MACDONALD [employer] 04/29/24 Reported Medications Apixaban Base (ELIQUIS) 2.5 Mg Tab, 2.5 MG PO BID for 60 Days, #60 04/09/24 Dapagliflozin Propanediol (Farxiga) 10 Mg Tab, 1 TAB PO DAILY for 30 Days, #30 11/28/24 Aripiprazole (Aripiprazole) 5 Mg Tab, 1 TAB PO DAILY for 30 Days, #30 04/09/24 Current Medications Current Medications Medications (Trade) Dose Ordered Sig/Colleen Route PRN Reason Start Time Stop Time Status Last Admin Ondansetron HCl (Zofran) 4 mg Q4HP PRN IV NAUSEA / VOMITING 06/27/24 17:15 06/28/24 05:28 Acetaminophen (Tylenol Tablet) 650 mg Q6HP PRN PO PAIN SCALE 1-3 OR TEMP>100.4 06/27/24 17:15 Bacitracin/ Polymyxin B Sulfate (Polysporin Eye Oint) 1 applic TID OP 06/27/24 22:00 Furosemide (Lasix Injection) 40 mg BIDD IV 06/27/24 18:00 06/28/24 06:42 Ceftriaxone Sodium 50 ml @ 100 mls/hr DAILY@09 IV 06/28/24 09:00 06/28/24 08:11 DC Amiodarone HCl (Cordarone Tablet) 400 mg DAILY PO 06/28/24 10:00 Apixaban (Eliquis) 2.5 mg BID PO 06/27/24 22:00 06/28/24 08:11 DC 06/27/24 22:51 Famotidine (Pepcid Tablet) 20 mg EOD PO 06/27/24 22:00 06/28/24 00:00 DC Patient Own Medication 1 tab DAILY PO 06/28/24 10:00 Carvedilol (Coreg Tablet) 6.25 mg BID PO 06/27/24 22:00 06/27/24 22:56 Empaglifozin (Jardiance) 1 mg DAILY PO 06/28/24 10:00 06/28/24 08:11 DC Sevelamer HCl (Renagel) 800 mg TIDWM PO 06/27/24 18:00 06/28/24 10:49 Famotidine (Pepcid Tablet) 20 mg EOD PO 06/28/24 00:00 06/28/24 08:11 DC Vancomycin HCl 0 ml @ 0 mls/hr UD IV 06/28/24 08:00 Piperacillin Sod/ Tazobactam Sod 100 ml @ 25 mls/hr Q12H IV 06/28/24 15:00 Diagnostic Test (Pha) (Accu-Chek Comfort Curve T) 1 strip Q1HR 06/28/24 08:00 06/28/24 09:00 Dextrose 50 ml UD PRN IV Blood Sugar LESS THAN 60 06/28/24 08:00 Pantoprazole Sodium (Protonix) 40 mg DAILY IV 06/29/24 10:00 Heparin Sodium/ Dextrose 250 ml @ 13.896 mls/ hr Q18H IV 06/28/24 08:00 UNV Norepinephrine Bitartrate 250 ml @ 3.75 mls/hr Q24H IV 06/28/24 10:30 Midazolam HCl 50 ml @ 1 mls/hr Q24H IV 06/28/24 10:30 06/28/24 08:00 Fentanyl Citrate 250 ml @ 2.5 mls/hr Q24H IV 06/28/24 10:30 06/28/24 08:00 Review of Systems unable to perform due to patient being intubated and sedated Vital Signs Vital Signs Date Time Temp Pulse Resp B/P (MAP) Pulse Ox O2 Delivery O2 Flow Rate FiO2 06/28/24 12:00 80 06/28/24 12:00 20 100 Mechanical Ventilator+ 06/28/24 11:39 80 06/28/24 10:28 06/28/24 10:22 98.1 98.1 06/27/24 20:00 4 Labs/Diagnostic Data Labs Test 06/28/24 11:10 06/28/24 09:40 06/28/24 08:10 06/28/24 07:55 Range/Units Lactic Acid Level 2.7 *H 0.4-2.0 mmol/L Blood Gas Specimen Type Arterial Blood Gas Sample Site Left brachial Blood Gas Patient Temperature 37.0 Arterial Blood Date Drawn [id number] Arterial Blood pH 7.233 *L 7.350-7.450 Arterial Blood Partial Pressure CO2 53.9 H 35.0-48.0 mmHg Arterial Blood Partial Pressure O2 122.7 H 83.0-108.0 mmHg Arterial Blood HCO3 22.2 21.0-28.0 mmol/L Arterial Blood Oxygen Saturation 97.1 94.0-98.0 % Arterial Blood Base Excess -5.1 L -2.0-3.0 mmol/L Arterial Blood Oxyhemoglobin 94.9 94.0-98.0 % Arterial Blood Carboxyhemoglobin 1.6 H 0.5-1.5 % Arterial Blood Methemoglobin 0.7 0.0-1.5 % Chilo Test N/a Blood Gas Total Hemoglobin 7.60 L 13.5-17.5 g/dL Blood Gas Set Respiration Rate 16.0 Blood Gas Modality Vent - ac Blood Gas Spontaneous Rate 16 FiO2 % 100.0 Blood Gas Tidal Volume 500.0 Blood Gas PEEP or CPAP 5.0 Blood Gas Critical Value Read Back Yes Blood Gas Notified Whom hang Beck dnp Blood Gas Notified Time [id number] Blood Gas Notified By jay Sarabai rt. POC Glucose 155 H 70-106 mg/dl White Blood Count 2.9 L 4.4-10.8 10^3/uL Red Blood Count 2.48 L 4.5-5.90 10^6/uL Hemoglobin 8.0 L 13.5-17.5 g/dL Hematocrit 25.4 #L 41.0-53.0 % Mean Corpuscular Volume 102.4 H 80.0-100.0 fL Mean Corpuscular Hemoglobin 32.3 H 28.0-32.0 pg Mean Corpuscular Hemoglobin Concent 31.6 L 32.0-36.0 g/dL Red Cell Distribution Width 18.9 H 11.8-14.3 % Platelet Count 106 L 140-450 10^3/uL Mean Platelet Volume 7.4 6.9-10.8 fL Neutrophils (%) (Auto) 45.2 37.0-80.0 % Lymphocytes (%) (Auto) 34.5 10.0-50.0 % Monocytes (%) (Auto) 9.0 0.0-12.0 % Eosinophils (%) (Auto) 10.4 H 0.0-7.0 % Basophils (%) (Auto) 0.9 0.0-2.0 % Neutrophils # (Auto) 1.3 L 1.6-8.6 10 ^3/uL Lymphocytes # (Auto) 1.0 0.4-5.4 10 ^3/uL Monocytes # (Auto) 0.3 0-1.3 10 ^3/uL Eosinophils # (Auto) 0.3 0-0.8 10 ^3/uL Basophils # (Auto) 0 0-0.2 10 ^3/uL Nucleated Red Blood Cells 0.4 % Prothrombin Time 13.5 H 9.3-11.8 sec Prothrombin Time INR 1.31 H 0.9-1.15 Activated Partial Thromboplast Time 29.1 24.5-34.5 SEC Sodium Level 141 136-145 mmol/L Potassium Level 5.1 3.5-5.1 mmol/L Chloride Level 102 98-107 mmol/L Carbon Dioxide Level 27 20-31 mmol/L Anion Gap 12 5-15 Blood Urea Nitrogen 61 H 9-23 mg/dL Creatinine 8.52 H 0.700-1.30 mg/dL Glomerular Filtration Rate Calc 6 >90 mL/min BUN/Creatinine Ratio 7.2 L 10.0-20.0 Serum Glucose 99 74-106 mg/dL Calcium Level 11.1 H 8.7-10.4 mg/dL Total Bilirubin 0.7 0.2-1.0 mg/dL Aspartate Amino Transferase (AST) 177 H 13-40 U/L Alanine Aminotransferase (ALT) 91 H 7-40 U/L Alkaline Phosphatase 93 46-116 U/L Total Protein 6.4 5.7-8.2 g/dL Albumin 3.8 3.2-4.8 g/dL Test 06/28/24 05:14 06/27/24 16:15 06/27/24 13:55 06/27/24 10:45 Range/Units Differential Total Cells Counted 100.0 100 Neutrophils % (Manual) 76 37.0-80.0 Band Neutrophils % (Manual) 3 Lymphocytes % (Manual) 9 L 10.0-50.0 Monocytes % (Manual) 2 0-12 Eosinophils % (Manual) 10 H 0-7 Basophils % (Manual) 0 0.0-2.0 Metamyelocytes % (manual) 0 Myelocytes % (Manual) 0 Promyelocytes % (Manual) 0 Blast Cells % (Manual) 0 Reactive Lymphocytes 0 Platelet Estimate Decreased Phosphorus Level 9.3 H 2.4-5.1 mg/dL Magnesium Level 2.7 H 1.6-2.6 mg/dL Influenza Type A Antigen Negative Negative Influenza Type B Antigen Negative Negative SARS-CoV-2 Antigen (Rapid) Negative NEGATIVE Troponin I High Sensitivity 40 </=54 ng/L Anisocytosis (manual) Slight Stomatocytes Few B-Type Natriuretic Peptide 2509.04 0-100 pg/mL Assessment s/p code acute resp failure atelectases ESRD pl effusions management plan sedation hypothermia /cooling measures target 94-96 F HD for electrolyte imbalance f p on troponins sedation vent support per protocol levophed drip MAP above 65 mm Hg prognosis poor crit care time 35 min Plan discussed with: Other (Rn) INDIA FERNANDEZ MD Jun 28, 2024 13:07
[2024-06-28] MEDS: ARIPIPRAZOLE 5 MG PO SCH (13:17)
[2024-06-28] MEDS: NOREPINEPHRINE 8 MG/250ML KIT 250 ML IV SCH (13:18)
[2024-06-28] MEDS: PIPERACILLIN-TAZOB 3.375GM 100 ML IV SCH (14:26)
[2024-06-28] MEDS: NOREPINEPHRINE BITARTRATE 32 MG in SODIUM CHL 0.9% 218 ML IV SCH (16:00)
--- NOTE | 2024-06-28 16:21 | DVHPN2 ---
Subjective sedated, vented. HD bedside. on vasopressors. contact precautions. Reviewed: H&P Changes from previous H/P or p: No Changes General: Per HPI Objective Vitals Vital Signs Date Time Temp Pulse Resp B/P (MAP) Pulse Ox O2 Delivery O2 Flow Rate FiO2 06/28/24 16:00 60 06/28/24 16:00 20 100 Mechanical Ventilator+ 80 80 06/28/24 15:45 97.2 153/42 (79) 207.0 06/27/24 20:00 4 Intake/Output Intake and Output 06/28/24 07:00 Intake Total 200 ml Balance 200 ml Intake Oral 150 ml IV Total 50 ml # Voids 2 Exam GEN: Acutely ill patient, ventilated, sedated, on vasopressors. Status post cardiac arrest 06/28. HEENT: NC/AT; MMM. CV: Systolic murmur 3 of 6. Pulses palpable all extremities. LUNGS: Rhonchi in right middle/right upper lobe ABD: Soft, NT/ND, NBS, no masses or organomegaly. EXT: skin Warm, well perfused. no rashes. No clubbing, cyanosis, or edema. NEURO: Pupil reflex intact. gag/cough intact. Medications Current Medications Medications Dose Ordered Sig/Colleen Route Start Time Stop Time Status Last Admin Dose Admin Ondansetron HCl 4 mg Q4HP PRN IV 06/27/24 17:15 06/28/24 05:28 4 MG Acetaminophen 650 mg Q6HP PRN PO 06/27/24 17:15 Bacitracin/ Polymyxin B Sulfate 1 applic TID OP 06/27/24 22:00 06/28/24 14:22 1 APPLIC Furosemide 40 mg BIDD IV 06/27/24 18:00 06/28/24 06:42 40 MG Amiodarone HCl 400 mg DAILY PO 06/28/24 10:00 Patient Own Medication 1 tab DAILY PO 06/28/24 10:00 Carvedilol 6.25 mg BID PO 06/27/24 22:00 06/27/24 22:56 6.25 MG Sevelamer HCl 800 mg TIDWM PO 06/27/24 18:00 06/28/24 10:49 800 MG Vancomycin HCl 0 ml @ 0 mls/hr UD IV 06/28/24 08:00 Piperacillin Sod/ Tazobactam Sod 100 ml @ 25 mls/hr Q12H IV 06/28/24 15:00 Dextrose 50 ml UD PRN IV 06/28/24 08:00 Pantoprazole Sodium 40 mg DAILY IV 06/29/24 10:00 Heparin Sodium/ Dextrose 250 ml @ 13.896 mls/ hr Q18H IV 06/28/24 08:00 UNV Midazolam HCl 50 ml @ 1 mls/hr Q24H IV 06/28/24 10:30 06/28/24 15:37 5 MLS/HR Fentanyl Citrate 250 ml @ 2.5 mls/hr Q24H IV 06/28/24 10:30 06/28/24 08:00 2.5 MLS/HR Diagnostic Test (Pha) 1 strip Q6HR 06/28/24 18:00 Norepinephrine Bitartrate 32 mg/ Sodium Chloride 250 ml @ 0.938 mls/ hr Q24H IV 06/28/24 14:30 06/28/24 16:00 9.375 MLS/HR Laboratory Results Laboratory Tests 06/28/24 07:55 Chemistry Test 06/28/24 05:14 06/28/24 07:55 Albumin 3.9 g/dL (3.2-4.8) 3.8 g/dL (3.2-4.8) Calcium Level 10.0 mg/dL (8.7-10.4) 11.1 mg/dL (8.7-10.4) H Magnesium Level 2.7 mg/dL (1.6-2.6) H Phosphorus Level 9.3 mg/dL (2.4-5.1) H Total Protein 6.6 g/dL (5.7-8.2) 6.4 g/dL (5.7-8.2) Coagulation Test 06/28/24 07:55 Prothrombin Time 13.5 sec (9.3-11.8) H Prothrombin Time INR 1.31 (0.9-1.15) H Activated Partial Thromboplast Time 29.1 SEC (24.5-34.5) LFT Test 06/28/24 05:14 06/28/24 07:55 Alanine Aminotransferase (ALT) < 9 U/L (7-40) 91 U/L (7-40) H Alkaline Phosphatase 92 U/L (46-116) 93 U/L (46-116) Aspartate Amino Transferase (AST) 9 U/L (13-40) L 177 U/L (13-40) H Total Bilirubin 0.7 mg/dL (0.2-1.0) 0.7 mg/dL (0.2-1.0) Blood Gas Results Test 06/28/24 09:40 Arterial Blood pH 7.233 (7.350-7.450) FiO2 % 100.0 Labs and/or images reviewed: Labs reviewed by me, Image(s) reviewed by me Assessment/Plan Assessment/Plan 06/28 patient will call to [employer] this morning, prior to that he was stable talking A&O times 3-4. Code was PEA approximate 30-40 minutes. [place] achieved. Patient upgraded to ICU. Started on faint, Versed, Levophed. RT managing vent. Patient is seen in D OU as ICU status, patient is sedated ventilated on vasopressors. Likely due to volume overload, suspecting arrhythmia as the change in status was acute. Cardiology, Nephrology, pulmonology on board. 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 D/pace CAD status post 3 stents Acute right eye conjunctivitis, bacterial possible - continue sedation Versed 5, fentanyl 175 -Continue Levophed maintain maps more than > 65, current levo 14 -Ventilated, pulmonology managing vent, currently on a.c./500/20/5/80% -For sepsis due to pneumonia/septic shock patient is on vancomycin and Zosyn -For ESRD due to HD nephrology consulted continue HD defer to Nephrology -status post cardiac arrest PE AA, likely due to arrhythmia from volume overload on a HFrEF patient continue helps her protocol, Cardiology following.- -for AFib continue amnio, cardiology following -conjunctivitis-keep patient on contact precaution, continue right eye ophthalmic drops/antibiotics very poor prognosis. d/w sister who would like to keep patient full code status Diet NPO DVT PPX full-dose Lovenox GI prophylaxis-Protonix 40 IV daily ICU status Full code Critical care time 70 minutes Plan discussed with: Other My Orders Orders - SADE HURT MD Procedure Category Date Status Time Glucose Blood PHA 06/28/24 In Process (Accu-Chek Comfort 18:00 Sodium Chl 0.9% PHA 06/28/24 In Process (Ns... 14:30 Date of Service: Jun 28, 2024 Billing Provider: SADE HURT MD Common Visit Codes: 23775-[id number] CARE-EACH +30MIN SADE HURT MD Jun 28, 2024 16:21
[2024-06-28 16:32] LABS: Base Excess -3.5 mmol/L (-2.0-3.0)
--- NOTE | 2024-06-28 16:35 | DVHNC2 ---
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 Indication: Hypotension, CVP monitoring Room prepared for procedure: Yes Door Serviceman performed hand hygien: Yes Maximal sterile barrier precau: Mask/Eye shield, Sterile gown Skin Preparation: Chlorhexidine gluconate, Providine iodine Skin preparation completely dr: Yes Insertion site: Left, Femoral Central line catheter type: Cyp-tjjfymer-bpe dialysis Number of lumens: 3 Antiseptic ointment applied to: Yes Date of Service: Jun 28, 2024 Billing Provider: GOPI GANN MD Common Visit Codes: 08882-ACNYFZO INP/OBS CARE (HIGH) Secondary Visit Codes: [id number] STANDBY SERVICE Consultation Codes: 83007-ZDJEAANHF CONSULT <45MIN Procedure Codes: 78276-WSSELN NON-TUNNEL CV CATH GOPI GANN MD Jun 28, 2024 16:34
[2024-06-28] MEDS: ASPirin 81 mg TAB PO ONE (18:00)
[2024-06-29] VITALS (116 sets, daily range): BP systolic 86–158; BP diastolic 27–64; PULSE 50–88; RESP 14–26; TEMP 97.2–98.8; O2SAT 94–100
[2024-06-29 07:13] LABS: Base Excess -3.2 mmol/L (-2.0-3.0)
[2024-06-29 07:43] LABS: Anion Gap 13 (5-15); Carbon Dioxide 24 mmol/L (20-31); Chloride 103 mmol/L (98-107); Sodium 140 mmol/L (136-145)
[2024-06-29 07:44] LABS: Calcium 9.9 mg/dL (8.7-10.4); Platelet Count (auto) 99 10^3/uL (140-450); White Blood Cell 4.3 10^3/uL (4.4-10.8)
[2024-06-29 07:47] LABS: Mean Corpuscular Hemoglobin 32.2 pg (28.0-32.0); Mean Corpuscular Hgb Conc. 32.6 g/dL (32.0-36.0); Mean Corpuscular Volume 98.8 fL (80.0-100.0); Red Blood Cells 1.72 10^6/uL (4.5-5.90)
[2024-06-29 07:49] LABS: BUN/Creatinine Ratio 7.6 (10.0-20.0)
[2024-06-29 07:50] LABS: Blood Urea Nitrogen 62 mg/dL (9-23); Glucose 68 mg/dL (74-106); Potassium 5.2 mmol/L (3.5-5.1)
[2024-06-29 08:01] LABS: Hemoglobin 5.5 g/dL (13.5-17.5)
[2024-06-29 08:03] LABS: Band Neutrophils % (manual) 0; Basophils % (manual) 0 (0.0-2.0); Blast Cells 0; Metamyelocytes % 0; Myelocytes % 0; Promyelocytes % 0; Reactive Lymphocytes 0
--- NOTE | 2024-06-29 08:09 | DVHSR ---
APPROVED REPORT EXAM: LIMITED Two-dimensional and M-mode echocardiogram. INDICATION ACUTE CARDIAC ARREST RISK FACTORS Height: 70, Weight: 170 DIMENSIONS LVDd4.3 (3.8-5.7cm)LA (2D) (1.9-4.0cm)Aortic Root (2.0-3.7cm) LVDs3.9 (2.5-4.0cm)LA (MM) (1.9-4.0cm)Aortic Cusp Exc (1.5-2.0cm) EF (%) 20.0 (55-70%)Rt. Atrium (1.9-4.0cm)Asc. Aorta cm IVSd2.1 (0.7-1.1cm)RV (D) (1.8-2.4cm) PWd1.7 (0.7-1.1cm) Mitral Valve MitralMitral Stenosis E/A ratio0.02D MVAcm2 Other Information Technically limited study due to limited study for function. Conclusion limited study lvef 20% by visual estimate postop septum septum flattening noted RV enlarged with dysfunction biatrial enlargement valves not assessed
[2024-06-29 08:48] LABS: Hepatitis B Surface Antigen Negative (Negative)
[2024-06-29] MEDS: PANTOPRAZOLE 40 MG/10 ML VIAL INJ IV SCH (08:56)
[2024-06-29] MEDS: ASPirin 81 mg TAB PO SCH (08:57)
[2024-06-29 09:05] LABS: Hepatitis A Ab IgM Negative; Hepatitis B Core IgM Negative (Negative); Hepatitis C Antibody Negative (Negative)
--- NOTE | 2024-06-29 10:23 | DVHPN2 ---
Progress Note Date Seen: Jun 29, 2024 Medical Necessity Reason Pt with a Central, PICC or Fol: Yes The following are medically ne: Central Line Subjective Patient reports: Feels worse Review of Systems: RESPIRATORY:Abnormal Objective vital signs Vital Sign Date Time Temp Pulse Resp B/P (MAP) Pulse Ox O2 Delivery O2 Flow Rate FiO2 06/29/24 10:07 60 20 107/33 (57) 100 40 06/29/24 09:40 Mechanical Ventilator+ 06/29/24 06:45 97.9 208.2 06/27/24 20:00 4 Total Intake and Output 06/28/24 06/28/24 06/29/24 15:00 23:00 07:00 Intake Total 137.0 ml 157.189 ml 340.0 ml Output Total 25 ml 200 ml Balance 137.0 ml 132.189 ml 140.0 ml medications Current Medications Medications Dose Ordered Sig/Colleen Route Start Time Stop Time Status Last Admin Dose Admin Ondansetron HCl 4 mg Q4HP PRN IV 06/27/24 17:15 06/28/24 05:28 4 MG Acetaminophen 650 mg Q6HP PRN PO 06/27/24 17:15 Bacitracin/ Polymyxin B Sulfate 1 applic TID OP 06/27/24 22:00 06/29/24 06:26 1 APPLIC Furosemide 40 mg BIDD IV 06/27/24 18:00 06/29/24 06:29 40 MG Amiodarone HCl 400 mg DAILY PO 06/28/24 10:00 06/29/24 08:57 400 MG Patient Own Medication 1 tab DAILY PO 06/28/24 10:00 Carvedilol 6.25 mg BID PO 06/27/24 22:00 06/28/24 21:15 6.25 MG Sevelamer HCl 800 mg TIDWM PO 06/27/24 18:00 06/29/24 08:57 800 MG Vancomycin HCl 0 ml @ 0 mls/hr UD IV 06/28/24 08:00 Piperacillin Sod/ Tazobactam Sod 100 ml @ 25 mls/hr Q12H IV 06/28/24 15:00 06/29/24 02:38 25 MLS/HR Dextrose 50 ml UD PRN IV 06/28/24 08:00 Pantoprazole Sodium 40 mg DAILY IV 06/29/24 10:00 06/29/24 08:56 40 MG Heparin Sodium/ Dextrose 250 ml @ 13.896 mls/ hr Q18H IV 06/28/24 08:00 UNV Midazolam HCl 50 ml @ 1 mls/hr Q24H IV 06/28/24 10:30 06/29/24 07:21 5 MLS/HR Fentanyl Citrate 250 ml @ 2.5 mls/hr Q24H IV 06/28/24 10:30 06/28/24 21:17 10 MLS/HR Diagnostic Test (Pha) 1 strip Q6HR 06/28/24 18:00 06/29/24 05:57 1 STRIP Norepinephrine Bitartrate 32 mg/ Sodium Chloride 250 ml @ 0.938 mls/ hr Q24H IV 06/28/24 14:30 06/28/24 16:00 9.375 MLS/HR Aspirin 81 mg DAILY PO 06/29/24 10:00 Examination: GENERAL:Abnormal, LUNGS:Abnormal, CVS:Abnormal, ABDOMEN:Abnormal, NEURO:Abnormal laboratory and microbiology Laboratory Tests 06/29/24 04:30 Test 06/29/24 04:30 Range/Units Serum Glucose 68 L 74-106 mg/dL Microbiology Date/Time Source Procedure Growth Status 06/28/24 07:55 Blood Blood Culture - Preliminary Resulted Problem List/Assessment/Plan Problem List/Assessment/Plan ESRD on dialysis T//S- pt missed several outpt dialysis appts Hyperkalemia s/p cardiac arrest Acute resp failure Pleural effusions CHF exacerbation Hx of Afib Hx of DC HTN acute anemia planned for PRBC shock medical treatment for elevated potassium s/p PRBC for hb 5.5 HD today fluid removal as tolerated while on levophed Plan discussed with: Other Critical Care Time (mins): 33 JOSE GUADALUPE ELLIOTT MD Jun 29, 2024 10:23
[2024-06-29] MEDS: InsuLIN REG 1unit/0.01ml Soln (100units/ml) IV ONE (10:30)
[2024-06-29] MEDS: SODIUM CHL 0.9% 1000 ML BAG XX ONE (10:30)
--- NOTE | 2024-06-29 10:42 | ECG ---
[facility] Test Date: 2024-06-28 Test Time: 08:24:39 Pat Name: SUSHMA THAYER Department: Room: 0265 A Gender: M Leaf Stripper: [id number] : 1960 Requested By: SHADE GUTIERREZ Order Number: [id number] Reading MD: Josh Holliday Measurements Intervals [place] Rate: 75 P: 0 ME: 0 QRS: 192 QRSD: 177 T: 129 QT: 498 QTc: 557 Interpretive Statements Afib/flut and V-paced complexes No further analysis attempted due to paced rhythm Electronically Signed On 07-02-2024 20:48:13 PST by Josh Holliday Please click the below link to view image of tracing.
--- NOTE | 2024-06-29 10:53 | DVHINCON2 ---
Date of service: Jun 29, 2024 History of Present Illness HPI Patient is a 64-year-old gentleman who presented on June 27, 2024 for around a week of flu symptoms and upper left swellings. At the time of evaluation, the patient is being managed in unit. He is intubated and not source of history. Information was obtained by reviewing the chart. Reportedly, the patient had missed hemodialysis quite a few times before presentation as he felt sick. It is reported that he did have flu-like symptoms, eye congestion and diarrhea prior to presentation. While being managed on the floor, patient was found to be nonresponsive and was coded. There is no detailed information about the time of the code. There is question about PEA. The patient was intubated and was brought to the unit. Patient was seen by on-call dimension warehouse supervisor at that point. At this point, we are called for Cardiology as the patient is known to us from before. There is no report of actual chest pain. It is of note that serial troponin has been negative. There is no available telemetry at the time of the episode. Is also of note that the patient does have BiV-ICD from before. Presently, the patient is admitted with septic shock. Home Meds Active Scripts Famotidine (PEPCID TABLET) 20 Mg Tb, 1 TAB PO BID for 30 Days, #60 TAB 5 Refills Prov:[facility] 05/21/24 Sacubitril-Valsartan (Entresto 24-26 mg) 1 Tab Tab, 1 TAB PO BID for 30 Days, #60 TAB Prov:[facility] 05/21/24 Sevelamer Carbonate (Renvela) 800 Mg Tab, 1 TAB PO TID for 30 Days, #90 TAB 3 Refills Prov:[facility] 05/21/24 Carvedilol (Carvedilol) 6.25 Mg Tab, 1 TAB PO BID for 30 Days, #60 TAB 1 Refill Prov:[facility] 05/21/24 Furosemide (Lasix) 20 Mg Tb, 40 MG PO DAILY for 30 Days, #30 TAB Prov:[facility] 05/21/24 Doxycycline (Monohydrate) (Doxycycline) 100 Mg Cap, 100 MG PO BID for 5 Days, #10 CAP Prov:[facility] 05/21/24 Amiodarone HCl (Amiodarone HCl) 200 Mg Tab, 400 MG PO DAILY for 30 Days, #60 TAB Prov:[facility] [employer] 04/29/24 Digoxin (Lanoxin) 125 Mcg Tab, 0.125 MG PO EOD for 30 Days, #30 TAB Prov:MONIQUE MACDONALD [employer] 04/29/24 Reported Medications Apixaban Base (ELIQUIS) 2.5 Mg Tab, 2.5 MG PO BID for 60 Days, #60 04/09/24 Dapagliflozin Propanediol (Farxiga) 10 Mg Tab, 1 TAB PO DAILY for 30 Days, #30 04/09/24 Aripiprazole (Aripiprazole) 5 Mg Tab, 1 TAB PO DAILY for 30 Days, #30 04/09/24 Past Medical History Others Past medical history includes end-stage renal disease on hemodialysis, hypertension, hyperlipidemia, old history of prostate cancer, systolic heart kandis lure, old history of myocardial infarction and PCI (reportedly years ago), old history of multiple cardiac ablation (unknown details), history of nonsustained ventricular tachycardia, status post BiV-ICD (Medtronic) of [facility], old history of GI bleeding, pulmonary hypertension (more likely type 2), 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 Patient Family History: Hypertension G8 MOTHER G8 FATHER Review of Systems Comments As the patient is intubated, review of systems/family history/social history can not be provided. H&P Exam Vital Signs Vital Signs Date Time Temp Pulse Resp B/P (MAP) Pulse Ox O2 Delivery O2 Flow Rate FiO2 06/29/24 10:07 60 20 107/33 (57) 100 40 06/29/24 09:40 Mechanical Ventilator+ 06/29/24 06:45 97.9 208.2 06/27/24 20:00 4 General Appeara: Severe distress Pulmonary/Respiratory: Rhonci Cardiovascular/Chest: Regular rate, Systolic murmur Abdominal Exam: Normal bowel sounds, Soft, No hepatospenomegaly Labs/Xrays Labs Test 06/29/24 06:45 06/29/24 05:32 06/29/24 04:30 06/28/24 16:20 Range/Units Blood Gas Specimen Type Arterial Blood Gas Sample Site Right radial Blood Gas Patient Temperature 37.0 Arterial Blood Date Drawn [id number] Arterial Blood pH 7.387 7.350-7.450 Arterial Blood Partial Pressure CO2 36.6 35.0-48.0 mmHg Arterial Blood Partial Pressure O2 66.0 L 83.0-108.0 mmHg Arterial Blood HCO3 21.5 21.0-28.0 mmol/L Arterial Blood Oxygen Saturation 88.9 L 94.0-98.0 % Arterial Blood Base Excess -3.2 L -2.0-3.0 mmol/L Arterial Blood Oxyhemoglobin 86.6 L 94.0-98.0 % Arterial Blood Carboxyhemoglobin 1.9 H 0.5-1.5 % Arterial Blood Methemoglobin 0.7 0.0-1.5 % Chilo Test Modified Blood Gas Total Hemoglobin 7.40 L 13.5-17.5 g/dL Blood Gas Set Respiration Rate 20.0 Blood Gas Modality Vent - ac FiO2 % 30.0 Blood Gas Tidal Volume 500.0 Blood Gas PEEP or CPAP 5.0 POC Glucose 79 70-106 mg/dl White Blood Count 4.3 #L 4.4-10.8 10^3/uL Red Blood Count 1.72 L 4.5-5.90 10^6/uL Hemoglobin 5.5 #*L 13.5-17.5 g/dL Hematocrit 17.0 #L 41.0-53.0 % Mean Corpuscular Volume 98.8 80.0-100.0 fL Mean Corpuscular Hemoglobin 32.2 H 28.0-32.0 pg Mean Corpuscular Hemoglobin Concent 32.6 32.0-36.0 g/dL Red Cell Distribution Width 19.0 H 11.8-14.3 % Platelet Count 99 L 140-450 10^3/uL Mean Platelet Volume 7.3 6.9-10.8 fL Neutrophils (%) (Auto) 37.0-80.0 % Lymphocytes (%) (Auto) 10.0-50.0 % Monocytes (%) (Auto) 0.0-12.0 % Eosinophils (%) (Auto) 0.0-7.0 % Basophils (%) (Auto) 0.0-2.0 % Neutrophils # (Auto) 1.6-8.6 10 ^3/uL Lymphocytes # (Auto) 0.4-5.4 10 ^3/uL Monocytes # (Auto) 0-1.3 10 ^3/uL Sodium Level 140 136-145 mmol/L Potassium Level 5.2 H 3.5-5.1 mmol/L Chloride Level 103 98-107 mmol/L Carbon Dioxide Level 24 20-31 mmol/L Anion Gap 13 5-15 Blood Urea Nitrogen 62 H 9-23 mg/dL Creatinine 8.17 H 0.700-1.30 mg/dL Glomerular Filtration Rate Calc 7 >90 mL/min BUN/Creatinine Ratio 7.6 L 10.0-20.0 Serum Glucose 68 L 74-106 mg/dL Calcium Level 9.9 8.7-10.4 mg/dL Random Vancomycin Level 9.6 5-10 ug/mL Blood Gas Spontaneous Rate 20 Test 06/28/24 11:10 06/28/24 09:40 06/28/24 07:55 06/28/24 05:14 Range/Units Lactic Acid Level 2.7 *H 0.4-2.0 mmol/L Blood Gas Critical Value Read Back Yes Blood Gas Notified Whom hang Tran dnp Blood Gas Notified Time [id number] Blood Gas Notified By jay Sarabia rt. Eosinophils # (Auto) 0.3 0-0.8 10 ^3/uL Basophils # (Auto) 0 0-0.2 10 ^3/uL Nucleated Red Blood Cells 0.4 % Prothrombin Time 13.5 H 9.3-11.8 sec Prothrombin Time INR 1.31 H 0.9-1.15 Activated Partial Thromboplast Time 29.1 24.5-34.5 SEC Total Bilirubin 0.7 0.2-1.0 mg/dL Aspartate Amino Transferase (AST) 177 H 13-40 U/L Alanine Aminotransferase (ALT) 91 H 7-40 U/L Alkaline Phosphatase 93 46-116 U/L Total Protein 6.4 5.7-8.2 g/dL Albumin 3.8 3.2-4.8 g/dL Hepatitis A IgM Antibody Negative Hepatitis B Surface Antigen Negative Negative Hepatitis B Core IgM Antibody Negative Negative Hepatitis C Antibody Negative Negative Phosphorus Level 9.3 H 2.4-5.1 mg/dL Magnesium Level 2.7 H 1.6-2.6 mg/dL Test 06/27/24 16:15 06/27/24 13:55 06/27/24 10:45 Range/Units Influenza Type A Antigen Negative Negative Influenza Type B Antigen Negative Negative SARS-CoV-2 Antigen (Rapid) Negative NEGATIVE Troponin I High Sensitivity 40 </=54 ng/L Anisocytosis (manual) Slight Stomatocytes Few B-Type Natriuretic Peptide 2509.04 0-100 pg/mL Microbiology Date/Time Source Procedure Growth Status 06/28/24 07:55 Blood Blood Culture - Preliminary Resulted Assessment/Plan Plan Patient is a 64-year-old gentleman who presented on June 27, 2024 for around a week of flu symptoms and upper left swellings. At the time of evaluation, the patient is being managed in unit. He is intubated and not source of history. Information was obtained by reviewing the chart. Reportedly, the patient had missed hemodialysis quite a few times before presentation as he felt sick. It is reported that he did have flu-like symptoms, eye congestion and diarrhea prior to presentation. While being managed on the floor, patient was found to be nonresponsive and was coded. There is no detailed information about the time of the code. There is question about PEA. The patient was intubated and was brought to the unit. Patient was seen by on-call dimension warehouse supervisor at that point. At this point, we are called for Cardiology as the patient is known to us from before. There is no report of actual chest pain. It is of note that serial troponin has been negative. There is no available telemetry at the time of the episode. Is also of note that the patient does have BiV-ICD from before. Presently, the patient is admitted with septic shock. Patient was in the hospital around a month ago. And was managed for acute on chronic systolic heart failure, pancytopenia and pleural effusions (for which had pleurocentesis). He should have been on Eliquis as outpatient. Intubated. There are signs of conjunctivitis on bilateral eyes. No JVD. Mucosa is pink and wet. No carotid bruit. Lungs: Scattered rhonchi in the lungs is heard. Cardiac: Regular, systolic murmur 3/6 in the apex is heard. The site for ICD implantation looks clean with no erythema/ecchymosis/tenderness. Abdomen is soft. Bowel sound is positive. Extremities reveal 2+ edema bilaterally. AV fistula in the right upper extremity with thrill was observed. 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 Echocardiogram of April 08, 2024 had reported four-chamber dilatation, ejection fraction of 20%, [id number] MR/TR and right ventricular systolic pressure of 75 mm Hg Echocardiogram of May 19, 2024 had reported four-chamber dilatation, ejection fraction of 35%, D shaped septum, pulmonary hypertension, mobile interatrial septum, [id number] aortic insufficiency, mild mitral regurgitation, moderate TR and right ventricular systolic pressure of 80 mm Hg WBC: 2.9 - 2.6 - 2.9 - 4.3 Hemoglobin: 7.2 - 7.2 - 8.0 - 5.5 Platelet: 102 - 111 - 106 - 99 Creatinine: 8.29 - 8.51 - 8.5 - 8.17 Potassium: 5.2 - 5.7 - 5.1 - 5.2 Lactic acid: 4.7 - 2.7 Troponin (high sensitive) 40 - 41 - 40 BNP: 2509.04 Chest x-ray reported: FINDINGS: LUNGS AND PLEURAL SPACES: See below. HEART: Cardiomegaly with moderate congestion. Left cardiac. MEDIASTINUM: Unremarkable. Normal mediastinal contour. BONES/JOINTS: Unremarkable. No acute fracture. OTHER FINDINGS: . . . .. IMPRESSION: Cardiomegaly with moderate congestion. Repeat chest x-ray reported: Medical devices: The ETT ends above the level of elizabeth at the level of clavicular heads. The enteric tube extends to the stomach. Multi lead left upper chest wall AICD with leads extending to the cardiac chambers. Cardiomediastinal: The heart is moderately enlarged. Pulmonary vasculature is prominent. Atherosclerotic calcification of the aortic arch noted. Lungs: There is interval enlargement of now moderate-sized right pleural effusion and interval development of patchy consolidation in the right middle and left upper lung zone. Small opacities are noted in the left lung base. Diffuse bilateral interstitial opacities are noted. No pneumothorax. Bones/soft tissues: No acute abnormality is noted. Right subclavian vascular stents noted. IMPRESSION: 1. Worsening CHF with moderate right pleural effusion , interval development of extensive bilateral interstitial opacities and large patchy multifocal bilateral consolidations that may represent edema or pneumonia. Re commend clinical and biochemical correlation. EKG revealed paced rhythm Telemetry revealed paced rhythm (it is of note that telemetry rhythm at the time of the code is not available to revealed) Echocardiogram reported: limited study. lvef 20% by visual estimate. postop septum. septum flattening noted. RV enlarged with dysfunction. biatrial enlargement. valves not assessed Patient is a 64-year-old gentleman who presented with flu-like symptoms, but later coded in the floor. No tele rhythm of the time of the code is available to review. Reportedly there was PA. Stable serial high sensitive troponin is against acute coronary syndrome. Patient does have baseline history of heart failure and pulmonary hypertension. He also has Bi V ICD (it is interrogation will be helpful). Does have baseline history of noncompliance to medication/hemodialysis. Does have baseline history of pancytopenia and is found to have significant anemia. With respiratory failure and on vent support. Acute arrest Rule out PA Questionable encephalopathy, anoxic versus toxic? Recent URI Septic shock Encephalopathy Baseline pulmonary hypertension Baseline systolic heart failure Status post Bi V ICD End-stage renal disease, Noncompliant with medication, followups and hemodialysis Pancytopenia History of GI bleeding Cardiac suggestion for management: Manage in ICU telemetry Aggressive hemodialysis Follow-up electrolytes and kidney function tests and correct abnormalities Request for D-dimer If D-dimer is abnormal, request for CT angio of the lungs. If D-dimer is normal, request for CT of the chest without contrast Request for digoxin level Request for Medtronic interrogation (BiV-ICD) For now, continue aspirin Further evaluation and management depends on the above and clinical course Further evaluation and management also depends on the regaining of high level of consciousness/brain function Hematology evaluation for pancytopenia suggested Pulmonary follow-up Thank you for consultation A total of 75 minutes was spent reviewing the patient record, examining the patient, making a diagnostic and therapeutic plan, discussing this plan with medical personnel, following up on diagnostic studies and following the patient for clinical stability excluding any and all procedures. At least 50% of this time was spent in direct, [id number] contact. Thank you for allowing me to participate in this patient's care. Further recommendations will depend on patient's clinical course. Please do not hesitate to contact me if you have any questions or concerns. This medical document was created using electronic medical record system with [employer] computerized dictation system. Although this document has been carefully reviewed, there may still be some phonetic and typographical errors. These areas are purely typographical due to the imperfection of the software programs, and do not reflect any compromise in the patient's medical care. Plan discussed with: Patient, Other (nurse) SUSHMA WALKER MD Jun 29, 2024 10:53
[2024-06-29] MEDS: VANCOMYCIN 1.5GM/300ML 300 ML IV ONE (11:30)
[2024-06-29] MEDS ORDERED: ARTIFICIAL TEARS 15ml EACHEYE PRN (11:30)
[2024-06-29] MEDS: DEXTROSE (50%) 50ML SYRG IV PRN (11:58)
[2024-06-29 11:59] LABS: Eosinophils % (manual) 13 (0-7); Lymphocytes % (manual) 7 (10.0-50.0); Monocytes % (manual) 9 (0-12); Platelet Estimate Decreased
--- NOTE | 2024-06-29 13:18 | ECG ---
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
[2024-06-29] MEDS: CALCIUM GLUC 1,000mg/50ml-NS 50 ML IV ONE (13:53)
[2024-06-29] MEDS: DEXTROSE (50%) 50ML SYRG IV ONE (13:53)
[2024-06-29 15:12] LABS: Free T3 0.83 pg/mL (2.3-4.2)
[2024-06-29 15:13] LABS: Free T4 (Free Thyroxine) 0.97 ng/dL (0.89-1.76)
[2024-06-29 16:28] LABS: Hemoglobin 8.8 g/dL (13.5-17.5)
[2024-06-29] MEDS: IOHEXOL 350 MG/ML 100ML IJ ONE (16:32)
--- NOTE | 2024-06-29 17:14 | DVH ---
CT brain without contrast CLINICAL INDICATION: Altered mental status FINDINGS: The study was performed in a multidetector scanner. This study performed taking axial imag es from the skull base up to the vertex. Both brain and bone windows are photographed. Dose lowering techniques have been used including automated exposure control and adjustment of mA and /or KV according to patient size. The cortical sulcal markings are prominent especially on the left. There are no areas of intraparenchymal hemorrhage or edema. No extra-axial fluid collections No hydrocephalus or midline shift. On bone windows there are no skull fractures. Mucosal thickening is present in the right maxillary s inus IMPRESSION: 1. No acute intracranial pathology. Cortical atrophy greater on the left. Computed Tomographic Radiation Dosimetry Report: Total CTDI vol = 61 mGy Total DLP = 1207 mGy-cm All CT scans at this medical facility are performed using dose modulation techniques as appropriate t o a performed exam including the following: Automated exposure control was utilized; adjustment of the MA and/or KvP according to patient size; a nd use of iterative reconstruction technique.
--- NOTE | 2024-06-29 17:28 | DVH ---
CTA Chest with intravenous contrast INDICATION: Rule out (PE) Pulmonary Emboli COMPARISON: CT CT ANGIO CHEST CONTRAST on DOS: 05/19/24 TECHNIQUE: Multidetector spiral CTA of the chest was performed of the chest with intravenous contrast . PULMONARY ANGIOGRAPHY PROTOCOL was utilized using a bolus-tracking technique centered on the main p ulmonary artery. Axial, coronal and sagittal multiplanar and MIP reformats were performed. CONTRAST: Type of contrast: Omni 350 Contrast injected: 100 ml Radiation dose : Chest: CTDI volume is 23.99 mGy. Dose-length product is 874.01 mGy*cm The dose indicators for CT are the volume computed Tomography (CT) dose Index (CTDIvol) and the dose Length product (DLP), and are measured in units of mGy and mGy-cm, respectively. These indicators are not patient dose, but values generated from the CT scanner acquisition factors. The report includes radiation exposure data for exposures received during this examination. Findings: Pulmonary artery: No pulmonary embolism Lower neck: Endotracheal tube and nasogastric tube in place. Lungs: Large right and small left pleural effusions with associated bilateral atelectasis and consoli dation . Patchy ground-glass opacities in both lungs. Heart/Vascular Structures: Moderate cardiomegaly. Trace pericardial effusion. Lymph Nodes: Mediastinal lymphadenopathy. Pleura: Bilateral pleural effusions right greater than left as above. Musculoskeletal: No acute osseous abnormality. Soft tissues: Normal. Upper abdomen: Left hepatic cyst. IMPRESSION: 1. No pulmonary embolism. 2. Large right and small left pleural effusion with associated bilateral atelectasis and consolidatio n. Patchy ground-glass opacities could represent pulmonary edema or an infectious / inflammatory pro cess. Mediastinal lymphadenopathy similar to prior. Clinical correlation and continued follow-up is recommended. Overall appearance is worse compared to prior exam. HS:Y
[2024-06-29] MEDS: EPOETIN ALFA-EPBX 10,000 UNIT/1ML VIAL SC SCH (21:00)
--- NOTE | 2024-06-29 21:49 | DVHPNRES ---
Progress Note Date Seen: Jun 29, 2024 Resident Creating Document: YVONNE DOMINGUEZ RESIDENT Medical Necessity Reason Pt with a Central, PICC or Fol: Yes The following are medically ne: Central Line, Shaw Catheter Subjective Review of Systems 64-year-old male patient with a history of nonischemic cardiomyopathy, chronic systolic heart failure, hypertension, hyperlipidemia, type 2 diabetes mellitus, prior myocardial infarction, pulmonary hypertension, end-stage renal disease on hemodialysis, who presented on June 27 with 1 week history of flu-like symptoms, upper respiratory illness and progressive weakness. The patient has been several hemodialysis sessions before admission and was reportedly found lying on the floor, cyanotic and unresponsive, on arrival the patient was intubated for respiratory failure and transported to the hospital. On ICU admission the patient was noted to be hemodynamically unstable requiring vasopressor support with norepinephrine and was deeply comatose, unresponsive to verbal or painful stimuli with a fixed nonreactive pupils and absent brainstem reflexes raising concern for severe anoxic brain injury. Cardiology was consulted due to the patient's history of heart failure, prior medical infarction and no pulmonary hypertension, echocardiogram from May 19, 2024 showed severe be ventricular dysfunction with left ventricular ejection fraction 35%, severe pulmonary hypertension with RVSP 75 mmHg, moderate mitral and aortic regurgitation and chronic volume overload. On admission the patient was to have bilateral pulmonary congestion with a fist crackles 1 inhalation which has imaging revealing bilateral infiltrates and pulmonary congestion concerning for volume overload versus aspiration pneumonia. There was no evidence of/pleural effusion or pneumothorax at that time. Additionally she was found to have worsening acute kidney injury (creatinine 3.58, BUN 52) severe metabolic and respiratory acidosis ABG pH 7.25, HC 0 3 13.9, lactate 14.5 and leukocytosis with blood cell count 22.1 raising suspicion for infectious process urinalysis showed leukocyte 3+, white blood cell count 101 and bacteria suggestive for possible urinary tract infection as a contributing source of sepsis. Given the high suspicion of sepsis with multisystemic organ dysfunction shock ALLI metabolic acidosis respiratory failure altered mental status the patient was started on broad-spectrum antibiotics with Zosyn vancomycin vasopressor support and mechanical ventilation. Currently the patient remains critically ill, responsive and dependent on full life support with a higher likelihood of poor neurological recovery. patient will need HD likely tomorrow CT angio showed no pulmonary embolism but a large right and small left pleural effusion with associated bilateral atelectasis and consolidation. Patchy ground-glass opacities could represent pulmonary edema or an infectious / inflammatory process. Mediastinal lymphadenopathy similar to prior. Overall appearance is worse compared to prior exam. On chest x RAY: Right basilar atelectasis or pneumonia. CT head : No acute intracranial pathology. Cortical atrophy greater on the left. Patient's lines: Patient is currently on fentanyl 2.5 Norepinephrine was held Objective vital signs Vital Sign Date Time Temp Pulse Resp B/P (MAP) Pulse Ox O2 Delivery O2 Flow Rate FiO2 06/29/24 20:06 60 20 114/42 (66) 99 40 06/29/24 18:45 97.9 208.2 06/29/24 17:31 Mechanical Ventilator+ 06/27/24 20:00 4 Total Intake and Output 06/28/24 06/28/24 06/29/24 15:00 23:00 07:00 Intake Total 137.0 ml 157.189 ml 362.5 ml Output Total 25 ml 200 ml Balance 137.0 ml 132.189 ml 162.5 ml medications Current Medications Medications Dose Ordered Sig/Colleen Route Start Time Stop Time Status Last Admin Dose Admin Acetaminophen 650 mg Q6HP PRN PO 06/27/24 17:15 Bacitracin/ Polymyxin B Sulfate 1 applic TID OP 06/27/24 22:00 06/29/24 12:10 1 APPLIC Amiodarone HCl 400 mg DAILY PO 06/28/24 10:00 06/29/24 08:57 400 MG Vancomycin HCl 0 ml @ 0 mls/hr UD IV 06/28/24 08:00 Piperacillin Sod/ Tazobactam Sod 100 ml @ 25 mls/hr Q12H IV 06/28/24 15:00 06/29/24 13:53 25 MLS/HR Dextrose 50 ml UD PRN IV 06/28/24 08:00 06/29/24 11:58 50 ML Pantoprazole Sodium 40 mg DAILY IV 06/29/24 10:00 06/29/24 08:56 40 MG Heparin Sodium/ Dextrose 250 ml @ 13.896 mls/ hr Q18H IV 06/28/24 08:00 UNV Midazolam HCl 50 ml @ 1 mls/hr Q24H IV 06/28/24 10:30 06/29/24 07:21 5 MLS/HR Fentanyl Citrate 250 ml @ 2.5 mls/hr Q24H IV 06/28/24 10:30 06/28/24 21:17 10 MLS/HR Diagnostic Test (Pha) 1 strip Q6HR 06/28/24 18:00 06/29/24 18:00 1 STRIP Norepinephrine Bitartrate 32 mg/ Sodium Chloride 250 ml @ 0.938 mls/ hr Q24H IV 06/28/24 14:30 06/28/24 16:00 9.375 MLS/HR Epoetin Eligio-epbx 10,000 unit MWF@2100 SC 06/29/24 21:00 Artificial Tears 2 drop Q6HP PRN EACHEYE 06/29/24 11:30 Examination GEN: Acutely ill patient, ventilated, sedated, on vasopressors. Status post cardiac arrest 06/28. CV: Systolic murmur 3 of 6. Pulses palpable all extremities. LUNGS: Rhonchi in right middle/right upper lobe ABD: Soft, NT/ND, NBS, no masses or organomegaly. EXT: skin Warm, well perfused. no rashes. No clubbing, cyanosis, or edema. NEURO: Pinpoint pupils, fixed laboratory and microbiology Laboratory Tests 06/29/24 16:08 06/29/24 04:30 Test 06/29/24 04:30 Range/Units Serum Glucose 68 L 74-106 mg/dL Microbiology Date/Time Source Procedure Growth Status 06/28/24 11:44 Nose MRSA Screen - Final Complete 06/28/24 08:05 Sputum Gram Stain - Final Resulted 06/28/24 08:05 Sputum Respiratory Culture - Preliminary Resulted 06/28/24 07:55 Blood Blood Culture - Preliminary Resulted Problem List/Assessment/Plan Problem List/Assessment/Plan Neurology: # acute hypoxemic encephalopathy due to severe anoxic brain injury # severe hypoxemic/ischemic brain injury post cardiac arrest versus metabolic encephalopathy Patient currently under mechanical ventilation Fentanyl IV Levophed IV Hemodialysis more Rajesh catheter for hemodialysis, ultrasound-guided Cardiovascular Acute on chronic systolic heart failure NYHA IV Shock cardiogenic/septic History of nonischemic cardiomyopathy History of myocardial infarction Severe pulmonary hypertension RVSP 75 mmHg Atrial fibrillation HFrEF SP AICD/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 Bilateral infiltrates on chest x-ray possible aspiration pneumonia versus pulmonary edema ABG Renal: ESRD on hemodialysis Acute kidney injury on ESRD Hyperkalemia -hemodialysis today CT angiography rule out PE CT head unremarkable Infectious disease: Shock likely septic due to suspected UTI/aspiration pneumonia Leukocytosis Bilateral infiltrates likely due to possible aspiration pneumonia -continue empiric broad-spectrum antibiotic with Zosyn and vanco Monitor white blood cell count and lactate Await for cultures Endocrine History of Type 2 diabetes Hematology: Severe anemia status post 2 packed red blood cell transfusion Monitor CBC daily Consider holding anticoagulation if no acute education Assess need for PRBC transfusion if hemoglobin less than 7. Patient getting sedation, analgesia, vasopressors and antibiotic therapy: Fentanyl IV Midazolam 5 mg hour for sedation Norepinephrine IV map more 64 Vanco IV very poor prognosis. critical care time excluding procedures was 81 mins DVT PPX full-dose Lovenox GI prophylaxis-Protonix 40 IV daily ICU status Full code Plan discussed with: Other (sister) Date of Service: Jun 29, 2024 Billing Provider: BELTRAN KLEIN MD Common Visit Codes: 25094-[id number] CARE 30-74 MIN, 04235-[id number] CARE-EACH +30MIN YVONNE DOMINGUEZ RESIDENT Jun 29, 2024 21:49 BELTRAN KLEIN MD Jun 30, 2024 15:46
[2024-06-30] VITALS (104 sets, daily range): BP systolic 91–181; BP diastolic 27–61; PULSE 56–90; RESP 0–25; TEMP 97–99.1; O2SAT 93–100
--- NOTE | 2024-06-30 05:12 | DVH ---
EXAM: XR Chest, 1 View CLINICAL INDICATION: INTUBATED TECHNIQUE: Frontal view of the chest. COMPARISON: XY CHEST PORTABLE on DOS: 06/28/24, XY CHEST PORTABLE on DOS: 06/27/24, XY CHEST PORTABLE on DOS: 05/19/24, XY CHEST PORTABLE on DOS: 05/18/24, XY CHEST PORTABLE on DOS: 04/26/24 FINDINGS: LUNGS AND PLEURAL SPACES: Right basilar atelectasis or pneumonia. HEART: Cardiomegaly with mild congestion. MEDIASTINUM: Unremarkable. Normal mediastinal contour. BONES/JOINTS: Unremarkable. No acute fracture. TUBES, LINES AND DEVICES: The endotracheal tube (ETT) is in satisfactory position. Left-sided card iac pacemaker. OTHER FINDINGS: . None. .. IMPRESSION: 1. Right basilar atelectasis or pneumonia. 2. Cardiomegaly with mild congestion.
[2024-06-30 05:20] LABS: Basophils # (auto) 0.1 10 ^3/uL (0-0.2); Eosinophils # (auto) 0.3 10 ^3/uL (0-0.8); Hematocrit 26.9 % (41.0-53.0); Hemoglobin 8.7 g/dL (13.5-17.5); Lymphocytes # (auto) 0.3 10 ^3/uL (0.4-5.4); Lymphocytes % (auto) 5.2 % (10.0-50.0); Mean Corpuscular Hgb Conc. 32.6 g/dL (32.0-36.0); Mean Corpuscular Volume 95.3 fL (80.0-100.0); Monocytes # (auto) 0.5 10 ^3/uL (0-1.3); Neutrophils # (auto) 4.4 10 ^3/uL (1.6-8.6); Neutrophils % (auto) 79.8 % (37.0-80.0); Nucleated Red Blood Cells % 0.2 %; Platelet Count (auto) 89 10^3/uL (140-450); Red Blood Cells 2.82 10^6/uL (4.5-5.90); White Blood Cell 5.6 10^3/uL (4.4-10.8)
[2024-06-30 05:21] LABS: Red Cell Distribution Width 20.7 % (11.8-14.3)
[2024-06-30 05:33] LABS: Chloride 103 mmol/L (98-107); Sodium 139 mmol/L (136-145)
[2024-06-30 05:34] LABS: Anion Gap 13 (5-15); Carbon Dioxide 23 mmol/L (20-31)
[2024-06-30 05:35] LABS: Calcium 9.2 mg/dL (8.7-10.4)
[2024-06-30 05:39] LABS: BUN/Creatinine Ratio 8.5 (10.0-20.0); Glucose 89 mg/dL (74-106)
[2024-06-30 06:04] LABS: Blood Urea Nitrogen 73 mg/dL (9-23); Potassium 5.9 mmol/L (3.5-5.1)
[2024-06-30] MEDS: SODIUM BICARB 8.4% 50Meq/50ml SYR INJ IV ONE (06:15)
[2024-06-30] MEDS: FUROSEMIDE 20 MG/2 ML VIAL IV ONE (06:15)
[2024-06-30] MEDS: DEXTROSE (50%) 50ML SYRG IV ONE (06:15)
[2024-06-30] MEDS: InsuLIN REG 1unit/0.01ml Soln (100units/ml) IV ONE (06:15)
--- NOTE | 2024-06-30 07:05 | DVHPN2 ---
Progress Note - Dictate Date Seen: Jun 30, 2024 Medical Necessity Reason Pt with a Central, PICC or Fol: Yes The following are medically ne: Central Line, Shaw Catheter vital signs Vital Sign Date Time Temp Pulse Resp B/P (MAP) Pulse Ox O2 Delivery O2 Flow Rate FiO2 06/30/24 06:35 60 20 129/42 (71) 100 30 06/30/24 04:00 Mechanical Ventilator+ 06/30/24 00:00 99.0 210.2 Total Intake and Output 06/29/24 06/29/24 06/30/24 15:00 23:00 07:00 Intake Total 225.5 ml 20.25 ml 3.75 ml Output Total 150 ml Balance 225.5 ml -129.75 ml 3.75 ml medications Current Medications Medications Dose Ordered Sig/Colleen Route Start Time Stop Time Status Last Admin Dose Admin Acetaminophen 650 mg Q6HP PRN PO 06/27/24 17:15 Bacitracin/ Polymyxin B Sulfate 1 applic TID OP 06/27/24 22:00 06/30/24 05:48 1 APPLIC Amiodarone HCl 400 mg DAILY PO 06/28/24 10:00 06/29/24 08:57 400 MG Vancomycin HCl 0 ml @ 0 mls/hr UD IV 06/28/24 08:00 Piperacillin Sod/ Tazobactam Sod 100 ml @ 25 mls/hr Q12H IV 06/28/24 15:00 06/30/24 03:12 25 MLS/HR Dextrose 50 ml UD PRN IV 06/28/24 08:00 06/29/24 11:58 50 ML Pantoprazole Sodium 40 mg DAILY IV 06/29/24 10:00 06/29/24 08:56 40 MG Heparin Sodium/ Dextrose 250 ml @ 13.896 mls/ hr Q18H IV 06/28/24 08:00 UNV Midazolam HCl 50 ml @ 1 mls/hr Q24H IV 06/28/24 10:30 06/29/24 07:21 5 MLS/HR Fentanyl Citrate 250 ml @ 2.5 mls/hr Q24H IV 06/28/24 10:30 06/28/24 21:17 10 MLS/HR Diagnostic Test (Pha) 1 strip Q6HR 06/28/24 18:00 06/30/24 05:47 1 STRIP Norepinephrine Bitartrate 32 mg/ Sodium Chloride 250 ml @ 0.938 mls/ hr Q24H IV 06/28/24 14:30 06/28/24 16:00 9.375 MLS/HR Epoetin Eligio-epbx 10,000 unit MWF@2100 SC 06/29/24 21:00 Artificial Tears 2 drop Q6HP PRN EACHEYE 06/29/24 11:30 laboratory and microbiology Laboratory Tests 06/30/24 04:42 Test 06/30/24 04:42 Range/Units Serum Glucose 89 74-106 mg/dL Assessment/Plan Patient is a 64-year-old gentleman who presented on June 27, 2024 for around a week of flu symptoms and upper left swellings. At the time of evaluation, the patient is being managed in unit. He is intubated and not source of history. Information was obtained by reviewing the chart. Reportedly, the patient had missed hemodialysis quite a few times before presentation as he felt sick. It is reported that he did have flu-like symptoms, eye congestion and diarrhea prior to presentation. While being managed on the floor, patient was found to be nonresponsive and was coded. There is no detailed information about the time of the code. There is question about PEA. The patient was intubated and was brought to the unit. Patient was seen by on-call hat cone inspector at that point. At this point, we are called for Cardiology as the patient is known to us from before. There is no report of actual chest pain. It is of note that serial troponin has been negative. There is no available telemetry at the time of the episode. Is also of note that the patient does have BiV-ICD from before. Presently, the patient is admitted with septic shock. Patient was in the hospital around a month ago. And was managed for acute on chronic systolic heart failure, pancytopenia and pleural effusions (for which had pleurocentesis). He should have been on Eliquis as outpatient. Intubated. There are signs of conjunctivitis on bilateral eyes. No JVD. Mucosa is pink and wet. No carotid bruit. Lungs: Scattered rhonchi in the lungs is heard. Cardiac: Regular, systolic murmur 3/6 in the apex is heard. The site for ICD implantation looks clean with no erythema/ecchymosis/tenderness. Abdomen is soft. Bowel sound is positive. Extremities reveal 2+ edema bilaterally. AV fistula in the right upper extremity with thrill was observed. 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 Echocardiogram of April 08, 2024 had reported four-chamber dilatation, ejection fraction of 20%, [id number] MR/TR and right ventricular systolic pressure of 75 mm Hg Echocardiogram of May 19, 2024 had reported four-chamber dilatation, ejection fraction of 35%, D shaped septum, pulmonary hypertension, mobile interatrial septum, [id number] aortic insufficiency, mild mitral regurgitation, moderate TR and right ventricular systolic pressure of 80 mm Hg WBC: 2.9 - 2.6 - 2.9 - 4.3 - 5.6 Hemoglobin: 7.2 - 7.2 - 8.0 - 5.5 - 8.8 - 8.7 Platelet: 102 - 111 - 106 - 99 - 89 Creatinine: 8.29 - 8.51 - 8.5 - 8.17 - 8.63 Potassium: 5.2 - 5.7 - 5.1 - 5.2 - 5.9 Lactic acid: 4.7 - 2.7 Troponin (high sensitive) 40 - 41 - 40 BNP: 2509.04 D-Dimer: 4.72 Digoxin: <0.14 Chest x-ray reported: FINDINGS: LUNGS AND PLEURAL SPACES: See below. HEART: Cardiomegaly with moderate congestion. Left cardiac. MEDIASTINUM: Unremarkable. Normal mediastinal contour. BONES/JOINTS: Unremarkable. No acute fracture. OTHER FINDINGS: . . . .. IMPRESSION: Cardiomegaly with moderate congestion. Repeat chest x-ray reported: Medical devices: The ETT ends above the level of elizabeth at the level of clavicular heads. The enteric tube extends to the stomach. Multi lead left upper chest wall AICD with leads extending to the cardiac chambers. Cardiomediastinal: The heart is moderately enlarged. Pulmonary vasculature is prominent. Atherosclerotic calcification of the aortic arch noted. Lungs: There is interval enlargement of now moderate-sized right pleural effusion and interval development of patchy consolidation in the right middle and left upper lung zone. Small opacities are noted in the left lung base. Diffuse bilateral interstitial opacities are noted. No pneumothorax. Bones/soft tissues: No acute abnormality is noted. Right subclavian vascular stents noted. IMPRESSION: 1. Worsening CHF with moderate right pleural effusion , interval development of extensive bilateral interstitial opacities and large patchy multifocal bilateral consolidations that may represent edema or pneumonia. Recommend clinical and biochemical correlation. Repeat chest xry reported: IMPRESSION: 1. Right basilar atelectasis or pneumonia. 2. Cardiomegaly with mild congestion. CTA of lungs revealed: IMPRESSION: 1. No pulmonary embolism. 2. Large right and small left pleural effusion with associated bilateral atelectasis and consolidation. Patchy ground-glass opacities could represent pulmonary edema or an infectious / inflammatory process. Mediastinal lymphadenopathy similar to prior. Clinical correlation and continued follow-up is recommended. Overall appearance is worse compared to prior exam. CT of head reported: 1. No acute intracranial pathology. Cortical atrophy greater on the left. EKG revealed paced rhythm Telemetry revealed paced rhythm (it is of note that telemetry rhythm at the time of the code is not available to revealed) Echocardiogram reported: limited study. lvef 20% by visual estimate. postop septum. septum flattening noted. RV enlarged with dysfunction. biatrial enlargement. valves not assessed Patient is a 64-year-old gentleman who presented with flu-like symptoms, but later coded in the floor. No tele rhythm of the time of the code is available to review. Reportedly there was PA. Stable serial high sensitive troponin is against acute coronary syndrome. Patient does have baseline history of heart failure and pulmonary hypertension. He also has Bi V ICD (it is interrogation will be helpful). Does have baseline history of noncompliance to medication/hemodialysis. Does have baseline history of pancytopenia and is found to have significant anemia. With respiratory failure and on vent support. Acute arrest Rule out PA Questionable encephalopathy, anoxic versus toxic? Recent URI Septic shock Encephalopathy Baseline pulmonary hypertension Baseline systolic heart failure Status post Bi V ICD End-stage renal disease, Noncompliant with medication, followups and hemodialysis Pancytopenia History of GI bleeding Right pleural effusion Cardiac suggestion for management: Manage in ICU telemetry Aggressive hemodialysis Follow-up electrolytes and kidney function tests and correct abnormalities Request for Medtronic interrogation (BiV-ICD) For now, continue aspirin Further evaluation and management depends on the above and clinical course Further evaluation and management also depends on the regaining of high level of consciousness/brain function Hematology evaluation for pancytopenia suggested Pulmonary follow-up A total of 75 minutes was spent reviewing the patient record, examining the patient, making a diagnostic and therapeutic plan, discussing this plan with medical personnel, following up on diagnostic studies and following the patient for clinical stability excluding any and all procedures. At least 50% of this time was spent in direct, [id number] contact. Thank you for allowing me to participate in this patient's care. Further recommendations will depend on patient's clinical course. Please do not hesitate to contact me if you have any questions or concerns. This medical document was created using electronic medical record system with [employer] computerized dictation system. Although this document has been carefully reviewed, there may still be some phonetic and typographical errors. These areas are purely typographical due to the imperfection of the software programs, and do not reflect any compromise in the patient's medical care. Plan discussed with: Other (nurse) SUSHMA WALKER MD Jun 30, 2024 07:05
[2024-06-30 08:20] LABS: Base Excess -4.3 mmol/L (-2.0-3.0)
[2024-06-30] MEDS: PIPERACILLIN-TAZOB 3.375GM 100 ML IV SCH (10:28)
[2024-06-30 10:45] LABS: Potassium 5.3 mmol/L (3.5-5.1)
[2024-06-30 10:48] LABS: Magnesium 2.4 mg/dL (1.6-2.6)
--- NOTE | 2024-06-30 12:22 | DVH ---
EXAM: XY CHEST PORTABLE Indication: ETT ADVANCEMENT/NEW NOMAN CATH INSERTION Technique: Frontal view of the chest. Comparison: XY CHEST PORTABLE on DOS: 06/30/24, XY CHEST PORTABLE on DOS: 06/28/24, XY CHEST PORTABLE o n DOS: 06/27/24, XY CHEST PORTABLE on DOS: 05/19/24, XY CHEST PORTABLE on DOS: 05/18/24, XY CHEST PORTABLE on DOS: 06/30/24 FINDINGS: LUNGS AND PLEURAL SPACES: Right basilar atelectasis or pneumonia. Small bilateral pleural effusions . HEART: Cardiomegaly with mild congestion. MEDIASTINUM: Cardiomegaly. Normal mediastinal contour. Atherosclerotic vascular calcifications of the thoracic aorta are noted. BONES/JOINTS: Unremarkable. No acute fracture. TUBES, LINES AND DEVICES: The endotracheal tube (ETT) is in satisfactory position. Left-sided card iac pacemaker. OTHER FINDINGS: . None.. IMPRESSION: 1. Right basilar atelectasis or pneumonia. Small bilateral pleural effusions. 2. Cardiomegaly with mild congestion. 3. Endotracheal tube now projects 6 cm above level the elizabeth in appropriate position.
[2024-06-30] MEDS: SODIUM CHL 0.9% 1000 ML BAG XX ONE (12:30)
--- NOTE | 2024-06-30 12:33 | DVHNC2 ---
Procedure - ULTRASOUND-GUIDED LEFT INTERNAL JUGULAR CENTRAL VENOUS CANNULATION for Rajesh (Large Bore) Catheter placement CPT Codes: 65261 (ultrasound guidance) 76203 (insertion of non-tunneled centrally inserted central venous catheter) 09460 (CXR interpretation) DATE: 06/30/2024 Time out: 12:01 pm PHYSICIAN: Devaughn Elder MD Assisted: Dr Reyna PRE-OPERATIVE DIAGNOSIS: Acute renal failure, requiring hemodialysis POST-OPERATIVE DIAGNOSIS: Acute renal failure, requiring hemodialysis PROCEDURE PERFORMED: Limited Ultrasound-guided LEFT internal jugular large-bore central line (Rajesh) placement. ANESTHESIA: 2 mL of 1% lidocaine plain. ESTIMATED BLOOD LOSS: less than 5 mL. SPECIMENS: None. COMPLICATIONS: None. INDICATIONS FOR PROCEDURE: The patient is in need of large bore IV access for hemodialysis due to acute renal failure DESCRIPTION OF PROCEDURE IN DETAIL: The patient was lying in the Trendelenburg position with head turned 30 degrees away from the insertion site. The skin was thoroughly sponged with chlorhexidine and allowed to dry. All persons involved were shielded with hair nets, face masks and sterile gowns. With sterile-gloved hands the LEFT neck area was draped with the large disposable sterile field provided in the pre-manufactured kit. The skin and subcutaneous tissues superficial to the LEFT internal jugular vein were anesthetized with 2 mL of 1% lidocaine. The LEFT internal jugular vein was identified on ultrasound from the angle of the mandible down into the supraclavicular fossa using the linear ultrasound probe in the transverse orientation. The carotid artery was identified and avoided utilizing color-flow. The internal jugular vein was then placed in the center of the ultrasound field and compressed for patency. A movement artifact was identified as the needle was advanced through the skin and advanced toward the vessel. A real time hyperechoic signal revealed visualization of vascular needle entry into the lumen as blood was noted to flashback in the syringe. The needle was then held in place while the guide wire was advanced. The needle was then removed. Direct visualization of guide wire location within the vein was noted on ultrasound indicating proper placement and was documented in the electronic medical record chart. A skin dilator was advanced over the guidewire and removed. A larger bore skin dilator was advanced over the guidewire and removed. The double-lumen Rajesh catheter was then advanced over the guide wire into proper position. The guide wire was removed and discarded. The ports were aspirated which showed good blood return and then carefully flushed with normal saline. Heparin 1.2 mL were placed into each port. The catheter was stabilized and sutured to the skin with 2-0 Prolene at 2 anchor points. A sterile bio-patch and dressing was placed over the catheter, including the insertion site. The patient tolerated the procedure well. A chest x-ray was ordered for position confirmation. I reviewed the image immediately after it was taken at bedside. Post-procedure chest x-ray demonstrates the Rajesh catheter line in the superior vena and no evidence of any pneumothorax. An image print out of the guidewire within the lumen of the LEFT internal jugular vein accompanies the chart. DEVAUGHN ELDER MD Jun 30, 2024 12:33
[2024-06-30] MEDS: ALBUMIN 25% 100 ML IV ONE (14:26)
--- NOTE | 2024-06-30 15:47 | DVHNC2 ---
DEVAUGHN ELDER RESIDENT 06/30/24 1547: Procedure Note Procedure: ULTRASOUND-GUIDED LEFT INTERNAL JUGULAR CENTRAL VENOUS CANNULATION for Rajesh (Large Bore) Catheter placement CPT Codes: 29751 (ultrasound guidance) 42311 (insertion of non-tunneled centrally inserted central venous catheter) 12246 (CXR interpretation) DATE: 06/30/2024 Time out: 12:01 pm Attending: Dr Klein PHYSICIAN: Devaughn Elder MD PGY3 Assisted: Dr Reyna PRE-OPERATIVE DIAGNOSIS: Acute renal failure, requiring hemodialysis POST-OPERATIVE DIAGNOSIS: Acute renal failure, requiring hemodialysis PROCEDURE PERFORMED: Limited Ultrasound-guided LEFT internal jugular large-bore central line (Rajesh) placement. ANESTHESIA: 2 mL of 1% lidocaine plain. ESTIMATED BLOOD LOSS: less than 5 mL. SPECIMENS: None. COMPLICATIONS: None. INDICATIONS FOR PROCEDURE: The patient is in need of large bore IV access for hemodialysis due to acute renal failure DESCRIPTION OF PROCEDURE IN DETAIL: The patient was lying in the Trendelenburg position with head turned 30 degrees away from the insertion site. The skin was thoroughly sponged with chlorhexidine and allowed to dry. All persons involved were shielded with hair nets, face masks and sterile gowns. With sterile-gloved hands the LEFT neck area was draped with the large disposable sterile field provided in the pre-manufactured kit. The skin and subcutaneous tissues superficial to the LEFT internal jugular vein were anesthetized with 2 mL of 1% lidocaine. The LEFT internal jugular vein was identified on ultrasound from the angle of the mandible down into the supraclavicular fossa using the linear ultrasound probe in the transverse orientation. The carotid artery was identified and avoi ded utilizing color-flow. The internal jugular vein was then placed in the center of the ultrasound field and compressed for patency. A movement artifact was identified as the needle was advanced through the skin and advanced toward the vessel. A real time hyperechoic signal revealed visualization of vascular needle entry into the lumen as blood was noted to flashback in the syringe. The needle was then held in place while the guide wire was advanced. The needle was then removed. Direct visualization of guide wire location within the vein was noted on ultrasound indicating proper placement and was documented in the electronic medical record chart. A skin dilator was advanced over the guidewire and removed. A larger bore skin dilator was advanced over the guidewire and removed. The double-lumen Rajesh catheter was then advanced over the guide wire into proper position. The guide wire was removed and discarded. The ports were aspirated which showed good blood return and then carefully flushed with normal saline. Heparin 1.2 mL were placed into each port. The catheter was stabilized and sutured to the skin with 2-0 Prolene at 2 anchor points. A sterile bio-patch and dressing was placed over the catheter, including the insertion site. The patient tolerated the procedure well. A chest x-ray was ordered for position confirmation. I reviewed the image immediately after it was taken at bedside. Post-procedure chest x-ray demonstrates the Rajesh catheter line in the superior vena and no evidence of any pneumothorax. An image print out of the guidewire within the lumen of the LEFT internal jugular vein accompanies the chart. Indication: Access for hemodialysis Informed consent discussed w/: Yes Emergent procedure Patient or: No Procedure Summary: See above BELTRAN KLEIN MD 07/05/24 1522: Date of Service: Jun 30, 2024 Billing Provider: BELTRAN KLEIN MD Common Visit Codes: PROCEDURE ONLY Procedure Codes: [id number] NON-TUNNEL CV CATH DEVAUGHN ELDER Jun 30, 2024 15:47 BELTRAN KLEIN MD Jul 05, 2024 15:22
[2024-06-30] MEDS: Nepro With Carb Steady 1 Liter Bottle GT SCH (16:00)
[2024-06-30] MEDS: CATHFLO ACTIVASE (ALTEPLASE) 2 MG VIAL IV ONE (16:23)
--- NOTE | 2024-06-30 18:03 | DVHPN2 ---
Progress Note Date Seen: Jun 30, 2024 Medical Necessity Reason Pt with a Central, PICC or Fol: Yes The following are medically ne: Central Line, Shaw Catheter Subjective Patient reports: Other (clotting in HD circuit last night) Review of Systems: Deferred Objective vital signs Vital Sign Date Time Temp Pulse Resp B/P (MAP) Pulse Ox O2 Delivery O2 Flow Rate FiO2 06/30/24 17:15 97.5 87 15 136/51 (79) 100 207.5 06/30/24 16:18 35 06/30/24 16:00 Mechanical Ventilator+ Total Intake and Output 06/29/24 06/29/24 06/30/24 15:00 23:00 07:00 Intake Total 225.5 ml 20.25 ml 76.252 ml Output Total 150 ml 250 ml Balance 225.5 ml -129.75 ml -173.748 ml medications Current Medications Medications Dose Ordered Sig/Colleen Route Start Time Stop Time Status Last Admin Dose Admin Acetaminophen 650 mg Q6HP PRN PO 06/27/24 17:15 Bacitracin/ Polymyxin B Sulfate 1 applic TID OP 06/27/24 22:00 06/30/24 14:50 1 APPLIC Amiodarone HCl 400 mg DAILY PO 06/28/24 10:00 06/30/24 10:37 400 MG Vancomycin HCl 0 ml @ 0 mls/hr UD IV 06/28/24 08:00 Dextrose 50 ml UD PRN IV 06/28/24 08:00 06/29/24 11:58 50 ML Pantoprazole Sodium 40 mg DAILY IV 06/29/24 10:00 06/30/24 10:28 40 MG Heparin Sodium/ Dextrose 250 ml @ 13.896 mls/ hr Q18H IV 06/28/24 08:00 UNV Midazolam HCl 50 ml @ 1 mls/hr Q24H IV 06/28/24 10:30 06/29/24 07:21 5 MLS/HR Fentanyl Citrate 250 ml @ 2.5 mls/hr Q24H IV 06/28/24 10:30 06/30/24 15:29 2.5 MLS/HR Diagnostic Test (Pha) 1 strip Q6HR 06/28/24 18:00 06/30/24 17:33 1 STRIP Norepinephrine Bitartrate 32 mg/ Sodium Chloride 250 ml @ 0.938 mls/ hr Q24H IV 06/28/24 14:30 06/28/24 16:00 9.375 MLS/HR Epoetin Eligio-epbx 10,000 unit MWF@2100 SC 06/29/24 21:00 Artificial Tears 2 drop Q6HP PRN EACHEYE 06/29/24 11:30 Piperacillin Sod/ Tazobactam Sod 100 ml @ 25 mls/hr Q12H IV 06/30/24 10:00 06/30/24 10:28 25 MLS/HR Enteral Nutritional Formula 1,000 ml 30ML/HR GT 06/30/24 15:45 06/30/24 16:00 1,000 ML Examination: GENERAL:Abnormal, LUNGS:Abnormal laboratory and microbiology Laboratory Tests 06/30/24 10:10 06/30/24 04:42 Test 06/30/24 04:42 Range/Units Serum Glucose 89 74-106 mg/dL Microbiology Date/Time Source Procedure Growth Status 06/28/24 11:44 Nose MRSA Screen - Final Complete 06/28/24 08:05 Sputum Gram Stain - Final Resulted 06/28/24 08:05 Sputum Respiratory Culture - Preliminary Resulted 06/28/24 07:55 Blood Blood Culture - Preliminary Resulted Problem List/Assessment/Plan Problem List/Assessment/Plan ESRD on dialysis T/Th/S- pt missed several outpt dialysis appts Hyperkalemia s/p cardiac arrest Acute resp failure Pleural effusions CHF exacerbation Hx of Afib Hx of NE HTN acute anemia planned for PRBC shock recs do not use AVF--no bruit/no thrill need nilson cath HD today vascular consult doppler Plan discussed with: Other My Orders My Orders Orders - ADITYA DUNCAN MD Procedure Category Date Status Time Consult CONS 06/30/24 Transmitted Vascular/Endovascular 09:43 Rt Upper Ext Art US 06/30/24 Taken Duplex 10:01 Us Guided Vascular US 06/30/24 Logged Access 10:26 Hemodialysis Orders ORDERS 06/30/24 Transmitted 12:17 Dietary Evaluation Review Comments: 1 Consider TPN per pharmacy if NPO>7 days. 2.TF Nepro@40ml/hr providing 78g pro, 1699 kcal in 24 hrs, if EN/GI accessible, 3.Renal standard diet if pt is off vent and passing a speech eval. offer Nepro PO supplements 240 ml as tolerated if PO intake is less than 50% Expected Outcomes/Goals: Off Vent, maintain wt, less uremic symptoms with his routine HD course. ADITYA DUNCAN MD Jun 30, 2024 18:02
--- NOTE | 2024-06-30 18:22 | DVHCONRES ---
Date Seen: Jun 30, 2024 Resident Creating Document: CYNTHIA ROBIN Jr., MD Referring Physician icu Reason for Consultation Thrombosed right AV fistula History of Present Illness Patient is a 64-year-old gentleman who presented on June 27, 2024 for around a week of flu symptoms and upper left swellings. At the time of evaluation, the patient is being managed in unit. He is intubated and not source of history. Information was obtained by reviewing the chart. Reportedly, the patient had missed hemodialysis quite a few times before presentation as he felt sick. It is reported that he did have flu-like symptoms, eye congestion and diarrhea pr ior to presentation. While being managed on the floor, patient was found to be nonresponsive and was coded. There is no detailed information about the time of the code. There is question about PEA. The patient was intubated and was brought to the unit. Patient was seen by on-call director of patient safety at that point. At this point, we are called for Cardiology as the patient is known to us from before. There is no report of actual chest pain. It is of note that serial troponin has been negative. There is no available telemetry at the time of the episode. Is also of note that the patient does have BiV-ICD from before. Presently, the patient is admitted with septic shock. Since being admitted to the ICU and was found to have a thrombosed right AV fistula required a temporary dialysis catheter today and will undergo dialysis today. The patient will need fistulogram and possible thrombectomy in the next 24-48 hours. Past Medical History End-stage renal disease Past Surgical History Right AV fistula Family History: Hypertension G8 MOTHER G8 FATHER Social History Unknown Allergies: Coded Allergies: NO KNOWN ALLERGIES (Unverified , 04/07/24) Home Meds Active Scripts Famotidine (PEPCID TABLET) 20 Mg Tb, 1 TAB PO BID for 30 Days, #60 TAB 5 Refills Prov:KEILY GREGG RESIDENT 05/21/24 Sacubitril-Valsartan (Entresto 24-26 mg) 1 Tab Tab, 1 TAB PO BID for 30 Days, #60 TAB Prov:KEILY GREGG 05/21/24 Sevelamer Carbonate (Renvela) 800 Mg Tab, 1 TAB PO TID for 30 Days, #90 TAB 3 Refills Prov:KEILY GREGG 05/21/24 Carvedilol (Carvedilol) 6.25 Mg Tab, 1 TAB PO BID for 30 Days, #60 TAB 1 [facility] 05/21/24 Furosemide (Lasix) 20 Mg Tb, 40 MG PO DAILY for 30 Days, #30 TAB [facility] 05/21/24 Doxycycline (Monohydrate) (Doxycycline) 100 Mg Cap, 100 MG PO BID for 5 Days, #10 CAP [facility] 05/21/24 Amiodarone HCl (Amiodarone HCl) 200 Mg Tab, 400 MG PO DAILY for 30 Days, #60 TAB Prov:MONIQUE MACDONALD [employer] F[employer]MENTATION OPERATOR 04/29/24 Digoxin (Lanoxin) 125 Mcg Tab, 0.125 MG PO EOD for 30 Days, #30 TAB Prov:MONIQUE MACDONALD [employer] FERMENT[employer] OPERATOR 04/29/24 Reported Medications Apixaban Base (ELIQUIS) 2.5 Mg Tab, 2.5 MG PO BID for 60 Days, #60 04/09/24 Dapagliflozin Propanediol (Farxiga) 10 Mg Tab, 1 TAB PO DAILY for 30 Days, #30 04/09/24 Aripiprazole (Aripiprazole) 5 Mg Tab, 1 TAB PO DAILY for 30 Days, #30 04/09/24 Current Medications Current Medications Medications (Trade) Dose Ordered Sig/Colleen Route PRN Reason Start Time Stop Time Status Last Admin Epoetin Eligio-epbx (Retacrit) 10,000 unit MWF@2100 SC 06/29/24 21:00 Piperacillin Sod/ Tazobactam Sod 100 ml @ 25 mls/hr Q12H IV 06/30/24 10:00 06/30/24 10:28 Enteral Nutritional Formula (Nepro With Carb Steady) 1,000 ml 30ML/HR GT 06/30/24 15:45 06/30/24 16:00 Review of Systems Unknown Vital Signs Vital Signs Date Time Temp Pulse Resp B/P (MAP) Pulse Ox O2 Delivery O2 Flow Rate FiO2 06/30/24 17:15 97.5 87 15 136/51 (79) 100 207.5 06/30/24 16:18 35 06/30/24 16:00 Mechanical Ventilator+ Physical Exam Right AV fistula is pulsatile at the antecubital fossa no thrills noted more proximal. No bruit. Labs/Diagnostic Data Labs Test 06/30/24 17:19 06/30/24 10:10 06/30/24 07:55 06/30/24 04:42 Range/Units POC Glucose 84 70-106 mg/dl Potassium Level 5.3 H 3.5-5.1 mmol/L Magnesium Level 2.4 1.6-2.6 mg/dL Blood Gas Specimen Type Arterial Blood Gas Sample Site Left radial Blood Gas Patient Temperature 37.0 Arterial Blood Date Drawn [id number] Arterial Blood pH 7.341 L 7.350-7.450 Arterial Blood Partial Pressure CO2 40.0 35.0-48.0 mmHg Arterial Blood Partial Pressure O2 61.0 L 83.0-108.0 mmHg Arterial Blood HCO3 21.1 21.0-28.0 mmol/L Arterial Blood Oxygen Saturation 87.0 L 94.0-98.0 % Arterial Blood Base Excess -4.3 L -2.0-3.0 mmol/L Arterial Blood Oxyhemoglobin 85.0 L 94.0-98.0 % Arterial Blood Carboxyhemoglobin 1.6 H 0.5-1.5 % Arterial Blood Methemoglobin 0.7 0.0-1.5 % Chilo Test Modified Blood Gas Total Hemoglobin 9.00 L 13.5-17.5 g/dL Blood Gas Set Respiration Rate 20.0 Blood Gas Modality Vent - ac FiO2 % 30.0 Blood Gas Tidal Volume 500.0 Blood Gas PEEP or CPAP 5.0 White Blood Count 5.6 # 4.4-10.8 10^3/uL Red Blood Count 2.82 L 4.5-5.90 10^6/uL Hemoglobin 8.7 L 13.5-17.5 g/dL Hematocrit 26.9 L 41.0-53.0 % Mean Corpuscular Volume 95.3 80.0-100.0 fL Mean Corpuscular Hemoglobin 31.0 28.0-32.0 pg Mean Corpuscular Hemoglobin Concent 32.6 32.0-36.0 g/dL Red Cell Distribution Width 20.7 H 11.8-14.3 % Platelet Count 89 L 140-450 10^3/uL Mean Platelet Volume 7.4 6.9-10.8 fL Neutrophils (%) (Auto) 79.8 37.0-80.0 % Lymphocytes (%) (Auto) 5.2 L 10.0-50.0 % Monocytes (%) (Auto) 9.0 0.0-12.0 % Eosinophils (%) (Auto) 5.0 0.0-7.0 % Basophils (%) (Auto) 1.0 0.0-2.0 % Neutrophils # (Auto) 4.4 1.6-8.6 10 ^3/uL Lymphocytes # (Auto) 0.3 L 0.4-5.4 10 ^3/uL Monocytes # (Auto) 0.5 0-1.3 10 ^3/uL Eosinophils # (Auto) 0.3 0-0.8 10 ^3/uL Basophils # (Auto) 0.1 0-0.2 10 ^3/uL Nucleated Red Blood Cells 0.2 % Sodium Level 139 136-145 mmol/L Chloride Level 103 98-107 mmol/L Carbon Dioxide Level 23 20-31 mmol/L Anion Gap 13 5-15 Blood Urea Nitrogen 73 #H 9-23 mg/dL Creatinine 8.63 H 0.700-1.30 mg/dL Glomerular Filtration Rate Calc 6 >90 mL/min BUN/Creatinine Ratio 8.5 L 10.0-20.0 Serum Glucose 89 74-106 mg/dL Calcium Level 9.2 8.7-10.4 mg/dL Random Vancomycin Level 25.2 H 5-10 ug/mL Test 06/29/24 10:45 06/29/24 04:30 06/28/24 16:20 06/28/24 11:10 Range/Units D-Dimer, Quantitative 4.72 H 0.0-0.49 mg/L FEU Thyroid Stimulating Hormone (TSH) 10.73 H 0.55-4.78 uIU/mL Digoxin Level < 0.14 L 0.8-2 ng/mL Differential Total Cells Counted 100.0 100 Neutrophils % (Manual) 71 37.0-80.0 Band Neutrophils % (Manual) 0 Lymphocytes % (Manual) 7 L 10.0-50.0 Monocytes % (Manual) 9 0-12 Eosinophils % (Manual) 13 H 0-7 Basophils % (Manual) 0 0.0-2.0 Metamyelocytes % (manual) 0 Myelocytes % (Manual) 0 Promyelocytes % (Manual) 0 Blast Cells % (Manual) 0 Reactive Lymphocytes 0 Platelet Estimate Decreased Free Thyroxine (T4) Calculated 0.97 0.89-1.76 ng/dL Free Triiodothyronine (T3) pg/mL 0.83 L 2.3-4.2 pg/mL Blood Gas Spontaneous Rate 20 Lactic Acid Level 2.7 *H 0.4-2.0 mmol/L Test 06/28/24 09:40 06/28/24 07:55 06/28/24 05:14 06/27/24 16:15 Range/Units Blood Gas Critical Value Read Back Yes Blood Gas Notified Whom hang Tran dnp Blood Gas Notified Time [id number] Blood Gas Notified By jay Sarabia rt. Prothrombin Time 13.5 H 9.3-11.8 sec Prothrombin Time INR 1.31 H 0.9-1.15 Activated Partial Thromboplast Time 29.1 24.5-34.5 SEC Total Bilirubin 0.7 0.2-1.0 mg/dL Aspartate Amino Transferase (AST) 177 H 13-40 U/L Alanine Aminotransferase (ALT) 91 H 7-40 U/L Alkaline Phosphatase 93 46-116 U/L Total Protein 6.4 5.7-8.2 g/dL Albumin 3.8 3.2-4.8 g/dL Hepatitis A IgM Antibody Negative Hepatitis B Surface Antigen Negative Negative Hepatitis B Core IgM Antibody Negative Negative Hepatitis C Antibody Negative Negative Phosphorus Level 9.3 H 2.4-5.1 mg/dL Influenza Type A Antigen Negative Negative Influenza Type B Antigen Negative Negative SARS-CoV-2 Antigen (Rapid) Negative NEGATIVE Test 06/27/24 13:55 06/27/24 10:45 Range/Units Troponin I High Sensitivity 40 </=54 ng/L Anisocytosis (manual) Slight Stomatocytes Few B-Type Natriuretic Peptide 2509.04 0-100 pg/mL Microbiology Date/Time Source Procedure Growth Status 06/28/24 11:44 Nose MRSA Screen - Final Complete 06/28/24 08:05 Sputum Gram Stain - Final Resulted 06/28/24 08:05 Sputum Respiratory Culture - Preliminary Resulted 06/28/24 07:55 Blood Blood Culture - Preliminary Resulted Assessment Right AV fistula he thrombosis. We will require AV fistulogram with thrombectomy possible angioplasty and stenting. Plan on performing tomorrow if medically stable Plan/Recommendation Right AV fistula he thrombosis. We will require AV fistulogram with thrombectomy possible angioplasty and stenting. Plan on performing tomorrow if medically stable Plan discussed with: Patient CYNTHIA ROBIN Jr., MD Jun 30, 2024 18:22
--- NOTE | 2024-06-30 18:27 | DVHNC2 ---
Procedure - [employer] ICD interrogation revealed: Remaining longevity of battery: 3.8 years DDDR: 60/130 Pacing impedance: A 380 /RV 323/LV 304 Ohms Shock impedance: RV 29 Ohms Capture threshold: Atrial 0.5/RV 0.875 volts at 0.4 milliseconds Program sensitivity: Atrial 0.3/RV 0.3 mV Episodes: VT/VF: 1 resulting in shock Changes performed: VTE detection interval was changed from 270 millisecond to 320 millisecond/VT detection interval was changed from 330 millisecond to 400 milliseconds SUSHMA WALKER MD Jun 30, 2024 18:27
--- NOTE | 2024-06-30 19:53 | DVHPNRES ---
Progress Note Date Seen: Jun 30, 2024 Resident Creating Document: YVONNE DOMINGUEZ RESIDENT Medical Necessity Reason Pt with a Central, PICC or Fol: Yes The following are medically ne: Central Line, Lynne Catheter Reason for lynne catheter: Strict I&O Subjective Review of Systems Patient was examined at bedside, he is on enteral feedings 10 mL/hour Nepro. Rajesh catheter was placed today and fistula in the right arm was clotted, v ascular team evaluated the patient, potentially fistulogram tomorrow. Hemodialysis was performed today they removed 2 L, chest x-ray was ordered for tomorrow, to recheck pleural effusion. FiO2 was decreased until 30% , sedation and pressors were held. Patient reports: No new complaints Changes from previous H/P or p: No Changes Objective vital signs Vital Sign Date Time Temp Pulse Resp B/P (MAP) Pulse Ox O2 Delivery O2 Flow Rate FiO2 06/30/24 18:15 97.3 61 16 136/46 (76) 100 207.1 06/30/24 18:00 30 06/30/24 18:00 Mechanical Ventilator+ Total Intake and Output 06/29/24 06/29/24 06/30/24 15:00 23:00 07:00 Intake Total 225.5 ml 20.25 ml 76.252 ml Output Total 150 ml 250 ml Balance 225.5 ml -129.75 ml -173.748 ml medications Current Medications Medications Dose Ordered Sig/Colleen Route Start Time Stop Time Status Last Admin Dose Admin Acetaminophen 650 mg Q6HP PRN PO 06/27/24 17:15 Bacitracin/ Polymyxin B Sulfate 1 applic TID OP 06/27/24 22:00 06/30/24 14:50 1 APPLIC Vancomycin HCl 0 ml @ 0 mls/hr UD IV 06/28/24 08:00 Dextrose 50 ml UD PRN IV 06/28/24 08:00 06/29/24 11:58 50 ML Pantoprazole Sodium 40 mg DAILY IV 06/29/24 10:00 06/30/24 10:28 40 MG Heparin Sodium/ Dextrose 250 ml @ 13.896 mls/ hr Q18H IV 06/28/24 08:00 UNV Midazolam HCl 50 ml @ 1 mls/hr Q24H IV 06/28/24 10:30 06/29/24 07:21 5 MLS/HR Fentanyl Citrate 250 ml @ 2.5 mls/hr Q24H IV 06/28/24 10:30 06/30/24 15:29 2.5 MLS/HR Diagnostic Test (Pha) 1 strip Q6HR 06/28/24 18:00 06/30/24 17:33 1 STRIP Norepinephrine Bitartrate 32 mg/ Sodium Chloride 250 ml @ 0.938 mls/ hr Q24H IV 06/28/24 14:30 06/28/24 16:00 9.375 MLS/HR Epoetin Eligio-epbx 10,000 unit MWF@2100 SC 06/29/24 21:00 Artificial Tears 2 drop Q6HP PRN EACHEYE 06/29/24 11:30 Piperacillin Sod/ Tazobactam Sod 100 ml @ 25 mls/hr Q12H IV 06/30/24 10:00 06/30/24 10:28 25 MLS/HR Enteral Nutritional Formula 1,000 ml 30ML/HR GT 06/30/24 15:45 06/30/24 16:00 1,000 ML Amiodarone HCl 200 mg BID PO 06/30/24 22:00 Mexiletine HCl 150 mg Q8HR PO 06/30/24 22:00 Examination GEN: Patient under mechanical ventilation, not on pressors or sedation. CV: Paced rhythm, no tachycardia, 3/6 systolic murmur LUNGS: Rhonchi in right middle/right lower lobe ABD: Soft, nontender nondistended, normal bowel sounds no masses or organomegaly EXT: skin Warm, well perfused. no rashes. No clubbing, cyanosis, or edema,right AV fistula is pulsatile at the antecubital fossa no thrills noted more proximal. No bruit. Left femoral triple-lumen catheter, left IJ Rajesh catheter Neuro: Suction and gag reflex present laboratory and microbiology Laboratory Tests 06/30/24 10:10 06/30/24 04:42 Test 06/30/24 04:42 Range/Units Serum Glucose 89 74-106 mg/dL Microbiology Date/Time Source Procedure Growth Status 06/28/24 11:44 Nose MRSA Screen - Final Complete 06/28/24 08:05 Sputum Gram Stain - Final Resulted 06/28/24 08:05 Sputum Respiratory Culture - Preliminary Resulted 06/28/24 07:55 Blood Blood Culture - Preliminary Resulted Problem List/Assessment/Plan Problem List/Assessment/Plan Neurology: # acute hypoxemic encephalopathy due to severe anoxic brain injury # severe hypoxemic/ischemic brain injury post cardiac arrest versus metabolic encephalopathy Patient currently under mechanical ventilation All sedation and pressors were held Neurology evaluation Hemodialysis done today, 2 L were removed Rajesh catheter for hemodialysis, ultrasound-guided per today LIJ Potentially fistulogram tomorrow Vascular team on board Cardiovascular Acute on chronic systolic heart failure NYHA IV Shock cardiogenic/septic History of nonischemic cardiomyopathy History of myocardial infarction Severe pulmonary hypertension RVSP 75 mmHg Atrial fibrillation HFrEF SP AICD/COOKER SULFITE D/pace CAD status post 3 stents -sedation and pressors were stopped, to evaluate neurological function -CT angiography unremarkable -Withingstronic interrogation unremarkable Respiratory: Acute hypoxemic respiratory failure due to heart failure reduced ejection fraction exacerbation due to septic/cardiogenic shock Patient intubated, ventilated AC mode , FiO2 of 30% Bilateral infiltrates on chest x-ray possible aspiration pneumonia versus pulmonary edema Bilateral pleural effusion - ABG -FiO2 30% -currently under mechanical ventilation - Suction and gag reflex present -chest x-rays tomorrow morning Renal: ESRD on hemodialysis Acute kidney injury on ESRD Hyperkalemia -hemodialysis today -Rajesh catheter was placed -fistulogram tomorrow CT angiography rule out PE CT head unremarkable Infectious disease: Shock likely septic due to suspected UTI/aspiration pneumonia Leukocytosis Bilateral infiltrates likely due to possible aspiration pneumonia -continue empiric broad-spectrum antibiotic with Zosyn and vanco Monitor white blood cell count and lactate Await for cultures Endocrine History of Type 2 diabetes Hematology: Severe anemia status post 2 packed red blood cell transfusion Monitor CBC daily Consider holding anticoagulation if no acute education Assess need for PRBC transfusion if hemoglobin less than 7. Sedatives and pressors were stopped to evaluate neurological function determine if the patient has a preserved mentation. very poor prognosis. Critical care, excluding procedures, time spent: 81 minutes GI prophylaxis-Protonix 40 IV daily ICU status Full code Plan discussed with: Other (sister) My Orders My Orders Orders - YVONNE DOMINGUEZ RESIDENT Procedure Category Date Status Time Chest Portable XY 06/30/24 Logged 18:02 Chest Portable XY 07/01/24 Logged 06:00 Potassium LAB 06/30/24 Logged 18:03 Dietary Evaluation Review Comments: 1 Consider TPN per pharmacy if NPO>7 days. 2.TF Nepro@40ml/hr providing 78g pro, 1699 kcal in 24 hrs, if EN/GI accessible, 3.Renal standard diet if pt is off vent and passing a speech eval. offer Nepro PO supplements 240 ml as tolerated if PO intake is less than 50% Expected Outcomes/Goals: Off Vent, maintain wt, less uremic symptoms with his routine HD course. Date of Service: Jun 30, 2024 Billing Provider: BELTRAN KLEIN MD Common Visit Codes: 86379-[id number] CARE 30-74 MIN, [id number] CARE-EACH +30MIN YVONNE DOMINGUEZ RESIDENT Jun 30, 2024 19:53 BELTRAN KLEIN MD Jul 01, 2024 15:48
--- NOTE | 2024-06-30 20:01 | DVH ---
EXAM: US RT UPPER EXT ART DUPLEX HISTORY: Evaluate for thrombosis. COMPARISON: None TECHNIQUE: Sonographic assessment of the right upper extremity arteries with grayscale and color Dop pler imaging. Spectral analysis was performed. FINDINGS: AV fistula between brachial artery and cephalic vein is thrombosed. Stent is seen in the axillary reg ion which is also thrombosed. Subclavian artery is patent triphasic waveform and peak systolic velocity of 104 centimeter/second. The axillary artery is patent with triphasic waveform and peak systolic velocity of 85 centimeter/sec ond. The brachial artery is patent with triphasic waveform and peak systolic velocity of 109 centimeter/se cond. Radial artery is patent with triphasic waveform and peak systolic velocity of 57 centimeter/second. The ulnar artery is patent with triphasic waveform and peak systolic velocity of 45 centimeter/second . The internal jugular vein was not visualized due to difficulty positioning the patient. IMPRESSION: 1. The right upper extremity brachial-cephalic AVF is thrombosed. 2. The right axillary stent is thrombosed. 3. The arteries of the right upper extremity including subclavian, axillary, brachial, radial and uln ar arteries are patent.
[2024-06-30] MEDS: AMIODARONE HCL 200 MG TAB PO SCH (22:22)
[2024-06-30] MEDS: MEXILETINE HYDROCHLORIDE 150 MG CAP PO SCH (22:22)
[2024-07-01] VITALS (91 sets, daily range): BP systolic 100–171; BP diastolic 28–59; PULSE 60–80; RESP 10–24; TEMP 96.8–99; O2SAT 92–100
[2024-07-01 03:18] LABS: Anion Gap 11 (5-15); Carbon Dioxide 28 mmol/L (20-31); Chloride 102 mmol/L (98-107); Potassium 4.3 mmol/L (3.5-5.1); Sodium 141 mmol/L (136-145)
[2024-07-01 03:19] LABS: Calcium 9.3 mg/dL (8.7-10.4)
[2024-07-01 03:24] LABS: BUN/Creatinine Ratio 7.5 (10.0-20.0)
[2024-07-01 03:25] LABS: Blood Urea Nitrogen 51 mg/dL (9-23); Glucose 115 mg/dL (74-106)
[2024-07-01 04:22] LABS: Basophils # (auto) 0 10 ^3/uL (0-0.2); Basophils % (auto) 0.7 % (0.0-2.0); Eosinophils # (auto) 0.3 10 ^3/uL (0-0.8); Lymphocytes # (auto) 0.3 10 ^3/uL (0.4-5.4); Monocytes # (auto) 0.3 10 ^3/uL (0-1.3); Neutrophils # (auto) 2.7 10 ^3/uL (1.6-8.6); Nucleated Red Blood Cells % 0.2 %; White Blood Cell 3.6 10^3/uL (4.4-10.8)
[2024-07-01 04:26] LABS: Eosinophils % (auto) 8.2 % (0.0-7.0); Hematocrit 22.4 % (41.0-53.0); Hemoglobin 7.4 g/dL (13.5-17.5); Lymphocytes % (auto) 7.7 % (10.0-50.0); Mean Corpuscular Hemoglobin 31.2 pg (28.0-32.0); Mean Corpuscular Hgb Conc. 32.9 g/dL (32.0-36.0); Mean Corpuscular Volume 94.9 fL (80.0-100.0); Monocytes % (auto) 8.1 % (0.0-12.0); Neutrophils % (auto) 75.3 % (37.0-80.0); Platelet Count (auto) 69 10^3/uL (140-450); Red Blood Cells 2.36 10^6/uL (4.5-5.90)
[2024-07-01 04:34] LABS: Red Cell Distribution Width 20.4 % (11.8-14.3)
--- NOTE | 2024-07-01 05:17 | DVH ---
EXAM: XR Chest, 1 View CLINICAL INDICATION: PLEURAL EFFUSION TECHNIQUE: Frontal view of the chest. COMPARISON: XY CHEST PORTABLE on DOS: 06/30/24, XY CHEST PORTABLE on DOS: 06/30/24, XY CHEST PORTABLE on DOS: 06/28/24, XY CHEST PORTABLE on DOS: 06/27/24, XY CHEST PORTABLE on DOS: 05/19/24 FINDINGS: LUNGS AND PLEURAL SPACES: Right pleural effusion. HEART: Cardiomegaly with pulmonary congestion and edema. Superimposed pneumonia cannot be excluded. MEDIASTINUM: Unremarkable. Normal mediastinal contour. BONES/JOINTS: Unremarkable. No acute fracture. TUBES, LINES AND DEVICES: Left-sided cardiac pacemaker. The endotracheal tube (ETT) is in satisfac tory position. Enteric tube tip in the stomach. OTHER FINDINGS: . None. . .. IMPRESSION: 1. Cardiomegaly with pulmonary congestion and edema. Superimposed pneumonia cannot be excluded. 2. Right pleural effusion.
--- NOTE | 2024-07-01 06:04 | DVHPN2 ---
Progress Note - Dictate Date Seen: Jul 01, 2024 Medical Necessity Reason Pt with a Central, PICC or Fol: Yes The following are medically ne: Central Line, Lynne Catheter Reason for lynne catheter: Strict I&O vital signs Vital Sign Date Time Temp Pulse Resp B/P (MAP) Pulse Ox O2 Delivery O2 Flow Rate FiO2 07/01/24 04:13 68 20 103/28 (53) 99 30 07/01/24 04:00 Mechanical Ventilator+ 07/01/24 03:45 97.7 207.9 Total Intake and Output 06/30/24 06/30/24 07/01/24 15:00 23:00 07:00 Intake Total 29.678 ml 77.5 ml 112.5 ml Output Total 50 ml Balance 29.678 ml 27.5 ml 112.5 ml medications Current Medications Medications Dose Ordered Sig/Colleen Route Start Time Stop Time Status Last Admin Dose Admin Acetaminophen 650 mg Q6HP PRN PO 06/27/24 17:15 Bacitracin/ Polymyxin B Sulfate 1 applic TID OP 06/27/24 22:00 06/30/24 22:23 1 APPLIC Vancomycin HCl 0 ml @ 0 mls/hr UD IV 06/28/24 08:00 Dextrose 50 ml UD PRN IV 06/28/24 08:00 06/29/24 11:58 50 ML Pantoprazole Sodium 40 mg DAILY IV 06/29/24 10:00 06/30/24 10:28 40 MG Heparin Sodium/ Dextrose 250 ml @ 13.896 mls/ hr Q18H IV 06/28/24 08:00 UNV Midazolam HCl 50 ml @ 1 mls/hr Q24H IV 06/28/24 10:30 06/29/24 07:21 5 MLS/HR Fentanyl Citrate 250 ml @ 2.5 mls/hr Q24H IV 06/28/24 10:30 06/30/24 15:29 2.5 MLS/HR Diagnostic Test (Pha) 1 strip Q6HR 06/28/24 18:00 07/01/24 00:00 1 STRIP Norepinephrine Bitartrate 32 mg/ Sodium Chloride 250 ml @ 0.938 mls/ hr Q24H IV 06/28/24 14:30 06/28/24 16:00 9.375 MLS/HR Epoetin Eligio-epbx 10,000 unit MWF@2100 SC 06/29/24 21:00 Artificial Tears 2 drop Q6HP PRN EACHEYE 06/29/24 11:30 Piperacillin Sod/ Tazobactam Sod 100 ml @ 25 mls/hr Q12H IV 06/30/24 10:00 06/30/24 22:22 25 MLS/HR Enteral Nutritional Formula 1,000 ml 30ML/HR GT 06/30/24 15:45 06/30/24 16:00 1,000 ML Amiodarone HCl 200 mg BID PO 06/30/24 22:00 06/30/24 22:22 200 MG Mexiletine HCl 150 mg Q8HR PO 06/30/24 22:00 06/30/24 22:22 150 MG laboratory and microbiology Laboratory Tests 07/01/24 02:40 Test 07/01/24 02:40 Range/Units Serum Glucose 115 H 74-106 mg/dL Assessment/Plan Patient is a 64-year-old gentleman who presented on June 27, 2024 for around a week of flu symptoms and upper left swellings. At the time of evaluation, the patient is being managed in unit. He is intubated and not source of history. Information was obtained by reviewing the chart. Reportedly, the patient had missed hemodialysis quite a few times before presentation as he felt sick. It is reported that he did have flu-like symptoms, eye congestion and diarrhea prior to presentation. While being managed on the floor, patient was found to be nonresponsive and was coded. There is no detailed information about the time of the code. There is question about PEA. The patient was intubated and was brought to the unit. Patient was seen by on-call urban forester at that point. At this point, we are called for Cardiology as the patient is known to us from before. There is no report of actual chest pain. It is of note that serial troponin has been negative. There is no available telemetry at the time of the episode. Is also of note that the patient does have BiV-ICD from before. Presently, the patient is admitted with septic shock. Patient was in the hospital around a month ago. And was managed for acute on chronic systolic heart failure, pancytopenia and pleural effusions (for which had pleurocentesis). He should have been on Eliquis as outpatient. Intubated. There are signs of conjunctivitis on bilateral eyes. No JVD. Mucosa is pink and wet. No carotid bruit. Lungs: Scattered rhonchi in the lungs is heard. Cardiac: Regular, systolic murmur 3/6 in the apex is heard. The site for ICD implantation looks clean with no erythema/ecchymosis/tenderness. Abdomen is soft. Bowel sound is positive. Extremities reveal 2+ edema bilaterally. AV fistula in the right upper extremity with thrill was observed. 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 Echocardiogram of April 08, 2024 had reported four-chamber dilatation, ejection fraction of 20%, [id number] MR/TR and right ventricular systolic pressure of 75 mm Hg Echocardiogram of May 19, 2024 had reported four-chamber dilatation, ejection fraction of 35%, D shaped septum, pulmonary hypertension, mobile interatrial septum, [id number] aortic insufficiency, mild mitral regurgitation, moderate TR and right ventricular systolic pressure of 80 mm Hg WBC: 2.9 - 2.6 - 2.9 - 4.3 - 5.6 - 3.6 Hemoglobin: 7.2 - 7.2 - 8.0 - 5.5 - 8.8 - 8.7 - 7.4 Platelet: 102 - 111 - 106 - 99 - 89 - 69 Creatinine: 8.29 - 8.51 - 8.5 - 8.17 - 8.63 - 6.77 Potassium: 5.2 - 5.7 - 5.1 - 5.2 - 5.9 - 4.5 - 4.3 Lactic acid: 4.7 - 2.7 Troponin (high sensitive) 40 - 41 - 40 BNP: 2509.04 D-Dimer: 4.72 Digoxin: <0.14 Chest x-ray reported: FINDINGS: LUNGS AND PLEURAL SPACES: See below. HEART: Cardiomegaly with moderate congestion. Left cardiac. MEDIASTINUM: Unremarkable. Normal mediastinal contour. BONES/JOINTS: Unremarkable. No acute fracture. OTHER FINDINGS: . . . .. IMPRESSION: Cardiomegaly with moderate congestion. Repeat chest x-ray reported: Medical devices: The ETT ends above the level of elizabeth at the level of clavicular heads. The enteric tube extends to the stomach. Multi lead left upper chest wall AICD with leads extending to the cardiac chambers. Cardiomediastinal: The heart is moderately enlarged. Pulmonary vasculature is prominent. Atherosclerotic calcification of the aortic arch noted. Lungs: There is interval enlargement of now moderate-sized right pleural effusion and interval development of patchy consolidation in the right middle and left upper lung zone. Small opacities are noted in the left lung base. Diffuse bilateral interstitial opacities are noted. No pneumothorax. Bones/soft tissues: No acute abnormality is noted. Right subclavian vascular stents noted. IMPRESSION: 1. Worsening CHF with moderate right pleural effusion , interval development of extensive bilateral interstitial opacities and large patchy multifocal bilateral consolidations that may represent edema or pneumonia. Recommend clinical and biochemical correlation. Repeat chest xry reported: IMPRESSION: 1. Right basilar atelectasis or pneumonia. 2. Cardiomegaly with mild congestion. Repeat chest xry reported: IMPRESSION: 1. Right basilar atelectasis or pneumonia. Small bilateral pleural effusions. 2. Cardiomegaly with mild congestion. 3. Endotracheal tube now projects 6 cm above level the elizabeth in appropriate position. Repeat chest xry reported: IMPRESSION: 1. Cardiomegaly with pulmonary congestion and edema. Superimposed pneumonia cannot be excluded. 2. Right pleural effusion. Upper ext (right) arterial duplex reported: IMPRESSION: 1. The right upper extremity brachial-cephalic AVF is thrombosed. 2. The right axillary stent is thrombosed. 3. The arteries of the right upper extremity including subclavian, axillary, brachial, radial and ulnar arteries are patent. CTA of lungs revealed: IMPRESSION: 1. No pulmonary embolism. 2. Large right and small left pleural effusion with associated bilateral atelectasis and consolidation. Patchy ground-glass opacities could represent pulmonary edema or an infectious / inflammatory process. Mediastinal lymphadenopathy similar to prior. Clinical correlation and continued follow-up is recommended. Overall appearance is worse compared to prior exam. CT of head reported: 1. No acute intracranial pathology. Cortical atrophy greater on the left. EKG revealed paced rhythm Telemetry revealed paced rhythm (it is of note that telemetry rhythm at the time of the code is not available to revealed) Echocardiogram reported: limited study. lvef 20% by visual estimate. postop septum. septum flattening noted. RV enlarged with dysfunction. biatrial enlargement. valves not assessed Med[employer] ICD interrogation revealed: Remaining longevity of battery: 3.8 years; DDDR: 60/130; Pacing impedance: A 380 /RV 323/LV 304 Ohms; Shock impedance: RV 29 Ohms; Capture threshold: Atrial 0.5/RV 0.875 volts at 0.4 milliseconds; Program sensitivity: Atrial 0.3/RV 0.3 mV; Episodes: VT/VF: 1 resulting in shock; Changes performed: VTE detection interval was changed from 270 millisecond to 320 millisecond/VT detection interval was changed from 330 millisecond to 400 milliseconds Patient is a 64-year-old gentleman who presented with flu-like symptoms, but later coded in the floor. No tele rhythm of the time of the code was available to review (at first). Reportedly there was PA. Stable serial high sensitive troponin is against acute coronary syndrome. Patient does have baseline history of heart failure and pulmonary hypertension. He also has Bi V ICD (interrogation revealed episode of v-fib/v-tach resulting in Defibrillation). Does have baseline history of noncompliance to medication/hemodialysis. Does have baseline history of pancytopenia and is found to have significant anemia. With respiratory failure and on vent support. Case discussed with Electrophysiology (Dr Tamayo). Acute arrest Rule out PA Questionable encephalopathy, anoxic versus toxic? Recent URI Septic shock s/p Defibrillation secondary to V-fib/Vtach Encephalopathy Baseline pulmonary hypertension Baseline systolic heart failure Status post Bi V ICD End-stage renal disease, Noncompliant with medication, followups and hemodialysis Pancytopenia History of GI bleeding Right pleural effusion Cardiac suggestion for management: Manage in ICU telemetry Aggressive hemodialysis Follow-up electrolytes and kidney function tests and correct abnormalities For now, continue aspirin Started on Amiodarone and Mexiletine Further evaluation and management depends on the above and clinical course Further evaluation and management also depends on the regaining of high level of consciousness/brain function If the patient regains higher brain function, may proceed with ischemic workup. Hematology evaluation for pancytopenia suggested Pulmonary follow-up A total of 75 minutes was spent reviewing the patient record, examining the patient, making a diagnostic and therapeutic plan, discussing this plan with medical personnel, following up on diagnostic studies and following the patient for clinical stability excluding any and all procedures. At least 50% of this time was spent in direct, [id number] contact. Thank you for allowing me to participate in this patient's care. Further recommendations will depend on patient's clinical course. Please do not hesitate to contact me if you have any questions or concerns. This medical document was created using electronic medical record system with [email or web address] dictation system. Although this document has been carefully reviewed, there may still be some phonetic and typographical errors. These areas are purely typographical due to the imperfection of the software programs, and do not reflect any compromise in the patient's medical care. Dietary Evaluation Review Comments: 1 Consider TPN per pharmacy if NPO>7 days. 2.TF Nepro@40ml/hr providing 78g pro, 1699 kcal in 24 hrs, if EN/GI accessible, 3.Renal standard diet if pt is off vent and passing a speech eval. offer Nepro PO supplements 240 ml as tolerated if PO intake is less than 50% Expected Outcomes/Goals: Off Vent, maintain wt, less uremic symptoms with his routine HD course. Plan discussed with: Other (nurse) SUSHMA WALKER MD Jul 01, 2024 06:04
[2024-07-01 08:13] LABS: Base Excess 1.6 mmol/L (-2.0-3.0)
[2024-07-01] MEDS: LIDOCAINE 2%HCL (LOCAL ANESTH.) INJ 20ML MDV ONE ×2 (13:58→14:26)
[2024-07-01] MEDS: IODIXANOL 320MG/ML 100ML BTL IV ONE (14:29)
[2024-07-01] MEDS: HEPARIN SODIUM (PORCINE) 5000 UNITS/ML 1ML VIAL ONE (14:41)
--- NOTE | 2024-07-01 15:30 | DVHOP2 ---
Operative Report - 2 Report Details Date: 07/01/24 Preop Diagnosis: Thrombosed right arteriovenous fistula Postop Diagnosis: Same Surgeon: Arcadio Keen MD Anesthesiologist: General endotracheal tube Anesthesia: General Consent: The patient was informed of the risks and benefits of the procedure. These include but are not limited to complications of anesthesia, postoperative infection, incomplete relief of symptoms, recurrence of symptoms, damage to blood vessels, nerves and tendons, deep venous thrombosis, pulmonary embolism and possible need for repeat surgery in the future. Estimated Blood Loss: 25 mL Findings: Right subclavian/innominate stent thrombosis and axillary vein stenosis Indications for Surgery: Thrombosed right AV fistula Name of Procedure Performed Right AV fistula thrombectomy central angioplasty and peripheral venous angioplasty Procedure Details Procedure Details: Patient was identified in the ICU as being Mr. Alberto he was brought back to the catheterization lab and placed into laboratory director table supine position after adequate induction of anesthesia antibiotics and time-out the right AV fistula was then prepped and draped normal surgical fashion 1% lidocaine was injected above the AV fistula in both arterial and venous limbs. Both were cannulated with 6 Kyr[place]z sheaths us diff Glidewire was then passed up into the central veins venogram was performed demonstrating thrombosis of the innominate/subclavian vein stent as well as the axillary stent. An arteriogram was performed via the brachial artery which demonstrate flow through the 5th anastomosis without stenosis with sluggish flow in the AV fistula due to thrombosis. Using a 8 x 40 balloon the central stenosis as well as the axillary vein stenosis was both angioplasty completion venogram demonstrated residual stenosis and the balloon was upsized to a 10 x 40 Conquest balloon completion venogram revealed no residual stenosis. Excellent flow through the fistula. At this point in time the sheaths were removed pursestring suture with 3-0 Vicryl suture was used as sterile dressings were applied patient was taken to the ICU in a stable condition. Sponge and needle counts were correct. Condition Good Disposition icu ARCADIO KEEN Jr., MD Jul 01, 2024 15:30
--- NOTE | 2024-07-01 18:20 | DVHPN2 ---
Progress Note Date Seen: Jul 01, 2024 Medical Necessity Reason Pt with a Central, PICC or Fol: Yes The following are medically ne: Central Line, Lynne Catheter Reason for lynne catheter: Strict I&O Subjective Patient reports: Other (intubated) Objective vital signs Vital Sign Date Time Temp Pulse Resp B/P (MAP) Pulse Ox O2 Delivery O2 Flow Rate FiO2 07/01/24 16:15 98.2 73 19 143/35 (71) 99 208.8 07/01/24 16:00 30 07/01/24 16:00 Mechanical Ventilator+ Total Intake and Output 06/30/24 06/30/24 07/01/24 15:00 23:00 07:00 Intake Total 29.678 ml 77.5 ml 462.5 ml Output Total 50 ml 50 ml Balance 29.678 ml 27.5 ml 412.5 ml medications Current Medications Medications Dose Ordered Sig/Colleen Route Start Time Stop Time Status Last Admin Dose Admin Acetaminophen 650 mg Q6HP PRN PO 06/27/24 17:15 Bacitracin/ Polymyxin B Sulfate 1 applic TID OP 06/27/24 22:00 07/01/24 14:00 1 APPLIC Vancomycin HCl 0 ml @ 0 mls/hr UD IV 06/28/24 08:00 Dextrose 50 ml UD PRN IV 06/28/24 08:00 06/29/24 11:58 50 ML Pantoprazole Sodium 40 mg DAILY IV 06/29/24 10:00 07/01/24 10:03 40 MG Heparin Sodium/ Dextrose 250 ml @ 13.896 mls/ hr Q18H IV 06/28/24 08:00 UNV Midazolam HCl 50 ml @ 1 mls/hr Q24H IV 06/28/24 10:30 06/29/24 07:21 5 MLS/HR Fentanyl Citrate 250 ml @ 2.5 mls/hr Q24H IV 06/28/24 10:30 06/30/24 15:29 2.5 MLS/HR Diagnostic Test (Pha) 1 strip Q6HR 06/28/24 18:00 07/01/24 12:06 1 STRIP Norepinephrine Bitartrate 32 mg/ Sodium Chloride 250 ml @ 0.938 mls/ hr Q24H IV 06/28/24 14:30 06/28/24 16:00 9.375 MLS/HR Epoetin Eligio-epbx 10,000 unit MWF@2100 SC 06/29/24 21:00 Artificial Tears 2 drop Q6HP PRN EACHEYE 06/29/24 11:30 Piperacillin Sod/ Tazobactam Sod 100 ml @ 25 mls/hr Q12H IV 06/30/24 10:00 07/01/24 10:03 25 MLS/HR Enteral Nutritional Formula 1,000 ml 30ML/HR GT 06/30/24 15:45 06/30/24 16:00 1,000 ML Amiodarone HCl 200 mg BID PO 06/30/24 22:00 07/01/24 10:03 200 MG Mexiletine HCl 150 mg Q8HR PO 06/30/24 22:00 07/01/24 16:07 150 MG Examination: LUNGS:Abnormal, MSK:Abnormal, NEURO:Abnormal laboratory and microbiology Laboratory Tests 07/01/24 02:40 Test 07/01/24 02:40 Range/Units Serum Glucose 115 H 74-106 mg/dL Microbiology Date/Time Source Procedure Growth Status 06/28/24 11:44 Nose MRSA Screen - Final Complete 06/28/24 08:05 Sputum Gram Stain - Final Complete 06/28/24 08:05 Sputum Respiratory Culture - Final Complete 06/28/24 07:55 Blood Blood Culture - Final Staphylococcus epidermidis Complete Problem List/Assessment/Plan Problem List/Assessment/Plan ESRD on dialysis T/Th/S- pt missed several outpt dialysis appts Hyperkalemia s/p cardiac arrest thrombosed AVF Acute resp failure Pleural effusions CHF exacerbation Hx of Afib Hx of IN HTN acute anemia planned for PRBC shock recs do not use AVF--no bruit/no thrill--fistulogram today HD today vascular consult Intubated Plan discussed with: Other My Orders My Orders Orders - ADITYA DUNCAN MD Procedure Category Date Status Time Heparin Sodium PHA 07/02/24 In Process (Porcine) 07:00 Heparin Sodium PHA 07/02/24 In Process (Porcine) 07:00 Heparin Sodium PHA 07/02/24 In Process (Porcine) 07:00 Sodium Chloride 0.9% PHA 07/02/24 In Process 07:00 Hemodialysis Orders ORDERS 07/01/24 Transmitted 11:26 Dietary Evaluation Review Comments: 1 Consider TPN per pharmacy if NPO>7 days. 2.TF Nepro@40ml/hr providing 78g pro, 1699 kcal in 24 hrs, if EN/GI accessible, 3.Renal standard diet if pt is off vent and passing a speech eval. offer Nepro PO supplements 240 ml as tolerated if PO intake is less than 50% Expected Outcomes/Goals: Off Vent, maintain wt, less uremic symptoms with his routine HD course. ADITYA DUNCAN MD Jul 01, 2024 18:20
--- NOTE | 2024-07-01 20:48 | DVHPNRES ---
Progress Note Date Seen: Jul 01, 2024 Resident Creating Document: YVONNE DOMINGUEZ RESIDENT Medical Necessity Reason Pt with a Central, PICC or Fol: Yes The following are medically ne: Central Line, Lynne Catheter Reason for lynne catheter: Strict I&O Subjective Review of Systems Patient was examined at bedside, he is on enteral feedings 10 mL/hour Nepro. Rajesh catheter ,HD scheduled for today at 8:00pm . 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 Mexiletine and amiodarone will continue ,synergistic antyarrhytmic effect,it reduces VT/AFib events in patients with an implantable cardioverter defibrillator, particularly in ischemic cardiomyopathy. CPAP trial for am. Patient reports: Other (intubated) Objective vital signs Vital Sign Date Time Temp Pulse Resp B/P (MAP) Pulse Ox O2 Delivery O2 Flow Rate FiO2 07/01/24 20:20 61 20 129/40 (69) 100 30 07/01/24 18:45 98.2 208.8 07/01/24 18:00 Mechanical Ventilator+ Total Intake and Output 06/30/24 06/30/24 07/01/24 15:00 23:00 07:00 Intake Total 29.678 ml 77.5 ml 462.5 ml Output Total 50 ml 50 ml Balance 29.678 ml 27.5 ml 412.5 ml medications Current Medications Medications Dose Ordered Sig/Colleen Route Start Time Stop Time Status Last Admin Dose Admin Acetaminophen 650 mg Q6HP PRN PO 06/27/24 17:15 Bacitracin/ Polymyxin B Sulfate 1 applic TID OP 06/27/24 22:00 07/01/24 14:00 1 APPLIC Vancomycin HCl 0 ml @ 0 mls/hr UD IV 06/28/24 08:00 Dextrose 50 ml UD PRN IV 06/28/24 08:00 06/29/24 11:58 50 ML Pantoprazole Sodium 40 mg DAILY IV 06/29/24 10:00 07/01/24 10:03 40 MG Heparin Sodium/ Dextrose 250 ml @ 13.896 mls/ hr Q18H IV 06/28/24 08:00 UNV Midazolam HCl 50 ml @ 1 mls/hr Q24H IV 06/28/24 10:30 06/29/24 07:21 5 MLS/HR Fentanyl Citrate 250 ml @ 2.5 mls/hr Q24H IV 06/28/24 10:30 06/30/24 15:29 2.5 MLS/HR Diagnostic Test (Pha) 1 strip Q6HR 06/28/24 18:00 07/01/24 18:00 1 STRIP Norepinephrine Bitartrate 32 mg/ Sodium Chloride 250 ml @ 0.938 mls/ hr Q24H IV 06/28/24 14:30 06/28/24 16:00 9.375 MLS/HR Epoetin Eligio-epbx 10,000 unit MWF@2100 SC 06/29/24 21:00 Artificial Tears 2 drop Q6HP PRN EACHEYE 06/29/24 11:30 Piperacillin Sod/ Tazobactam Sod 100 ml @ 25 mls/hr Q12H IV 06/30/24 10:00 07/01/24 10:03 25 MLS/HR Enteral Nutritional Formula 1,000 ml 30ML/HR GT 06/30/24 15:45 06/30/24 16:00 1,000 ML Amiodarone HCl 200 mg BID PO 06/30/24 22:00 07/01/24 10:03 200 MG Mexiletine HCl 150 mg Q8HR PO 06/30/24 22:00 07/01/24 16:07 150 MG Examination GEN: Patient under mechanical ventilation, not on pressors or sedation. CV: Paced rhythm, no tachycardia, 3/6 systolic murmur LUNGS: Rhonchi in right middle/right lower lobe ABD: Soft, nontender nondistended, normal bowel sounds no masses or organomegaly EXT: skin Warm, well perfused. no rashes. No clubbing, cyanosis, or edema. Left femoral triple-lumen catheter, left IJ Rajesh catheter Neuro: Suction and gag reflex present laboratory and microbiology Laboratory Tests 07/01/24 02:40 Test 07/01/24 02:40 Range/Units Serum Glucose 115 H 74-106 mg/dL Microbiology Date/Time Source Procedure Growth Status 06/28/24 11:44 Nose MRSA Screen - Final Complete 06/28/24 08:05 Sputum Gram Stain - Final Complete 06/28/24 08:05 Sputum Respiratory Culture - Final Complete 06/28/24 07:55 Blood Blood Culture - Final Staphylococcus epidermidis Complete Problem List/Assessment/Plan Problem List/Assessment/Plan Neurology: # acute hypoxemic encephalopathy due to severe anoxic brain injury # severe hypoxemic/ischemic brain injury post cardiac arrest versus metabolic encephalopathy Patient currently under mechanical ventilation All sedation and pressors were held Neurology evaluation CPAP trial tomorrow am Hemodialysis today at 8pm Rajesh catheter for hemodialysis, ultrasound-guided per today [facility] Right AV fistula thrombectomy central angioplasty and peripheral venous angioplasty performed Vascular team on board Drip : fentanyl 75, will be decreased before the trial. Cardiovascular Acute on chronic systolic heart failure NYHA IV Shock cardiogenic/septic History of nonischemic cardiomyopathy History of myocardial infarction Severe pulmonary hypertension RVSP 75 mmHg Atrial fibrillation HFrEF SP AICD/HAIR DRYER D/pace CAD status post 3 stents -sedation and pressors were stopped, to evaluate neurological function -CT angiography unremarkable -[employer] interrogation unremarkable -amiodarone po -mexiletine po Respiratory: Acute hypoxemic respiratory failure due to heart failure reduced ejection fraction exacerbation due to septic/cardiogenic shock Patient intubated, ventilated AC mode , FiO2 of 30% Bilateral infiltrates on chest x-ray possible aspiration pneumonia versus pulmonary edema Bilateral pleural effusion - ABG -FiO2 30% -currently under mechanical ventilation - Suction and gag reflex present -chest x-rays tomorrow morning Renal: ESRD on hemodialysis Acute kidney injury on ESRD Hyperkalemia -hemodialysis today at 8pm -Rajesh catheter was placed -Right AV fistula thrombectomy central angioplasty and peripheral venous angioplasty,performed today CT angiography rule out PE CT head unremarkable Infectious disease: Shock likely septic due to suspected UTI/aspiration pneumonia Leukocytosis Bilateral infiltrates likely due to possible aspiration pneumonia -continue empiric broad-spectrum antibiotic with Zosyn and vanco Monitor white blood cell count and lactate Endocrine History of Type 2 diabetes Hematology: Severe anemia status post 2 packed red blood cell transfusion Monitor CBC daily Consider holding anticoagulation if no acute education Assess need for PRBC transfusion if hemoglobin less than 7. Sedatives and pressors were stopped to evaluate neurological function determine if the patient has a preserved mentation. very poor prognosis. Critical care, excluding procedures, time spent: 81 minutes GI prophylaxis-Protonix 40 IV daily ICU status Full code Plan discussed with: Patient, Other (sister) Dietary Evaluation Review Comments: 1 Consider TPN per pharmacy if NPO>7 days. 2.TF Nepro@40ml/hr providing 78g pro, 1699 kcal in 24 hrs, if EN/GI accessible, 3.Renal standard diet if pt is off vent and passing a speech eval. offer Nepro PO supplements 240 ml as tolerated if PO intake is less than 50% Expected Outcomes/Goals: Off Vent, maintain wt, less uremic symptoms with his routine HD course. Date of Service: Jul 01, 2024 Billing Provider: BELTRAN KLEIN MD Common Visit Codes: 82599-CPTMODWO CARE 30-74 MIN, 37321-ODCMUKWL CARE-EACH +30MIN YVONNE DOMINGUEZ RESIDENT Jul 01, 2024 20:48 BELTRAN KLEIN MD Jul 02, 2024 11:44
[2024-07-02] VITALS (83 sets, daily range): BP systolic 96–184; BP diastolic 25–66; PULSE 60–85; RESP 10–24; TEMP 97.7–100; O2SAT 88–100
--- NOTE | 2024-07-02 05:22 | DVH ---
EXAM: XR Cervical Spine, 6 or More Views CLINICAL INDICATION: intubated TECHNIQUE: Frontal, lateral, oblique and flexion/extension views of the cervical spine. COMPARISON: XY CHEST PORTABLE on DOS: 07/01/24, XY CHEST PORTABLE on DOS: 06/30/24, XY CHEST PORTABLE on DOS: 06/30/24, XY CHEST PORTABLE on DOS: 06/28/24, XY CHEST PORTABLE on DOS: 06/27/24 FINDINGS: VERTEBRAE: Unremarkable. No acute fracture. Normal alignment. No instability. DISC SPACES: No acute findings. No significant narrowing. SOFT TISSUES: Unremarkable. HEART: Left cardiac. Mild congestive heart failure. TUBES, LINES AND DEVICES: Enteric tube tip in the stomach. The endotracheal tube (ETT) is in satis factory position. OTHER FINDINGS: . ... IMPRESSION: Mild congestive heart failure.
[2024-07-02 05:36] LABS: Basophils # (auto) 0 10 ^3/uL (0-0.2); Eosinophils # (auto) 0.4 10 ^3/uL (0-0.8); Hematocrit 22.7 % (41.0-53.0); Hemoglobin 7.5 g/dL (13.5-17.5); Lymphocytes # (auto) 0.3 10 ^3/uL (0.4-5.4); Mean Corpuscular Hgb Conc. 32.9 g/dL (32.0-36.0); Monocytes # (auto) 0.3 10 ^3/uL (0-1.3); Neutrophils # (auto) 3.3 10 ^3/uL (1.6-8.6); Neutrophils % (auto) 76.1 % (37.0-80.0); White Blood Cell 4.3 10^3/uL (4.4-10.8)
[2024-07-02 05:39] LABS: Basophils % (auto) 0.8 % (0.0-2.0); Eosinophils % (auto) 8.7 % (0.0-7.0); Lymphocytes % (auto) 7.1 % (10.0-50.0); Mean Corpuscular Hemoglobin 31.6 pg (28.0-32.0); Mean Corpuscular Volume 96.1 fL (80.0-100.0); Monocytes % (auto) 7.3 % (0.0-12.0); Platelet Count (auto) 70 10^3/uL (140-450); Red Blood Cells 2.36 10^6/uL (4.5-5.90); Red Cell Distribution Width 19.5 % (11.8-14.3)
[2024-07-02 05:55] LABS: Alanine Aminotransferase 26 U/L (7-40); Alkaline Phosphatase 60 U/L (46-116); Anion Gap 11 (5-15); BUN/Creatinine Ratio 6.3 (10.0-20.0); Calcium 9.7 mg/dL (8.7-10.4); Carbon Dioxide 29 mmol/L (20-31); Chloride 101 mmol/L (98-107); Glucose 100 mg/dL (74-106); Potassium 4.2 mmol/L (3.5-5.1); Sodium 141 mmol/L (136-145)
[2024-07-02 05:56] LABS: Albumin 3.4 g/dL (3.2-4.8); Aspartate Aminotransferase 25 U/L (13-40); Total Protein 5.7 g/dL (5.7-8.2)
[2024-07-02 06:17] LABS: Bilirubin, Total 1.3 mg/dL (0.2-1.0); Blood Urea Nitrogen 30 mg/dL (9-23)
[2024-07-02] MEDS: SODIUM CHL 0.9% 1000 ML BAG XX ONE (07:00)
--- NOTE | 2024-07-02 07:23 | DVHPN2 ---
Progress Note - Dictate Date Seen: Jul 02, 2024 Medical Necessity Reason Pt with a Central, PICC or Fol: Yes The following are medically ne: Central Line, Lynne Catheter Reason for lynne catheter: Strict I&O vital signs Vital Sign Date Time Temp Pulse Resp B/P (MAP) Pulse Ox O2 Delivery O2 Flow Rate FiO2 07/02/24 06:45 99.7 85 17 90 211.5 07/02/24 06:36 30 07/02/24 06:00 Mechanical Ventilator+ Total Intake and Output 07/01/24 07/01/24 07/02/24 15:00 23:00 07:00 Intake Total 55.0 ml 120.0 ml 135.0 ml Output Total 30 ml 75 ml Balance 55.0 ml 90.0 ml 60.0 ml medications Current Medications Medications Dose Ordered Sig/Colleen Route Start Time Stop Time Status Last Admin Dose Admin Acetaminophen 650 mg Q6HP PRN PO 06/27/24 17:15 Bacitracin/ Polymyxin B Sulfate 1 applic TID OP 06/27/24 22:00 07/02/24 05:59 1 APPLIC Vancomycin HCl 0 ml @ 0 mls/hr UD IV 06/28/24 08:00 Dextrose 50 ml UD PRN IV 06/28/24 08:00 06/29/24 11:58 50 ML Pantoprazole Sodium 40 mg DAILY IV 06/29/24 10:00 07/01/24 10:03 40 MG Heparin Sodium/ Dextrose 250 ml @ 13.896 mls/ hr Q18H IV 06/28/24 08:00 UNV Midazolam HCl 50 ml @ 1 mls/hr Q24H IV 06/28/24 10:30 06/29/24 07:21 5 MLS/HR Fentanyl Citrate 250 ml @ 2.5 mls/hr Q24H IV 06/28/24 10:30 06/30/24 15:29 2.5 MLS/HR Diagnostic Test (Pha) 1 strip Q6HR 06/28/24 18:00 07/02/24 05:59 1 STRIP Norepinephrine Bitartrate 32 mg/ Sodium Chloride 250 ml @ 0.938 mls/ hr Q24H IV 06/28/24 14:30 06/28/24 16:00 9.375 MLS/HR Epoetin Eligio-epbx 10,000 unit MWF@2100 SC 06/29/24 21:00 07/02/24 00:40 10,000 UNIT Artificial Tears 2 drop Q6HP PRN EACHEYE 06/29/24 11:30 Piperacillin Sod/ Tazobactam Sod 100 ml @ 25 mls/hr Q12H IV 06/30/24 10:00 07/02/24 00:24 25 MLS/HR Enteral Nutritional Formula 1,000 ml 30ML/HR GT 06/30/24 15:45 06/30/24 16:00 1,000 ML Amiodarone HCl 200 mg BID PO 06/30/24 22:00 07/02/24 00:30 200 MG Mexiletine HCl 150 mg Q8HR PO 06/30/24 22:00 07/02/24 05:58 150 MG laboratory and microbiology Laboratory Tests 07/02/24 04:55 Test 07/02/24 04:55 Range/Units Serum Glucose 100 74-106 mg/dL Assessment/Plan Patient is a 64-year-old gentleman who presented on June 27, 2024 for around a week of flu symptoms and upper left swellings. At the time of evaluation, the patient is being managed in unit. He is intubated and not source of history. Information was obtained by reviewing the chart. Reportedly, the patient had missed hemodialysis quite a few times before presentation as he felt sick. It is reported that he did have flu-like symptoms, eye congestion and diarrhea prior to presentation. While being managed on the floor, patient was found to be nonresponsive and was coded. There is no detailed information about the time of the code. There is question about PEA. The patient was intubated and was brought to the unit. Patient was seen by on-call seismograph chief at that point. At this point, we are called for Cardiology as the patient is known to us from before. There is no report of actual chest pain. It is of note that serial troponin has been negative. There is no available telemetry at the time of the episode. Is also of note that the patient does have BiV-ICD from before. Presently, the patient is admitted with septic shock. Patient was in the hospital around a month ago. And was managed for acute on chronic systolic heart failure, pancytopenia and pleural effusions (for which had pleurocentesis). He should have been on Eliquis as outpatient. Intubated. There are signs of conjunctivitis on bilateral eyes. No JVD. Mucosa is pink and wet. No carotid bruit. Lungs: Scattered rhonchi in the lungs is heard. Cardiac: Regular, systolic murmur 3/6 in the apex is heard. The site for ICD implantation looks clean with no erythema/ecchymosis/tenderness. Abdomen is soft. Bowel sound is positive. Extremities reveal 2+ edema bilaterally. AV fistula in the right upper extremity with thrill was observed. 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 Echocardiogram of April 08, 2024 had reported four-chamber dilatation, ejection fraction of 20%, [id number] MR/TR and right ventricular systolic pressure of 75 mm Hg Echocardiogram of May 19, 2024 had reported four-chamber dilatation, ejection fraction of 35%, D shaped septum, pulmonary hypertension, mobile interatrial septum, [id number] aortic insufficiency, mild mitral regurgitation, moderate TR and right ventricular systolic pressure of 80 mm Hg WBC: 2.9 - 2.6 - 2.9 - 4.3 - 5.6 - 3.6 - 4.3 Hemoglobin: 7.2 - 7.2 - 8.0 - 5.5 - 8.8 - 8.7 - 7.4 - 7.5 Platelet: 102 - 111 - 106 - 99 - 89 - 69 - 70 Creatinine: 8.29 - 8.51 - 8.5 - 8.17 - 8.63 - 6.77 - 4.80 Potassium: 5.2 - 5.7 - 5.1 - 5.2 - 5.9 - 4.5 - 4.3 - 4.2 Lactic acid: 4.7 - 2.7 Troponin (high sensitive) 40 - 41 - 40 BNP: 2509.04 D-Dimer: 4.72 Digoxin: <0.14 Chest x-ray reported: FINDINGS: LUNGS AND PLEURAL SPACES: See below. HEART: Cardiomegaly with moderate congestion. Left cardiac. MEDIASTINUM: Unremarkable. Normal mediastinal contour. BONES/JOINTS: Unremarkable. No acute fracture. OTHER FINDINGS: . . . .. IMPRESSION: Cardiomegaly with moderate congestion. Repeat chest x-ray reported: Medical devices: The ETT ends above the level of elizabeth at the level of clavicular heads. The enteric tube extends to the stomach. Multi lead left upper chest wall AICD with leads extending to the cardiac chambers. Cardiomediastinal: The heart is moderately enlarged. Pulmonary vasculature is prominent. Atherosclerotic calcification of the aortic arch noted. Lungs: There is interval enlargement of now moderate-sized right pleural effusion and interval development of patchy consolidation in the right middle and left upper lung zone. Small opacities are noted in the left lung base. Diffuse bilateral interstitial opacities are noted. No pneumothorax. Bones/soft tissues: No acute abnormality is noted. Right subclavian vascular stents noted. IMPRESSION: 1. Worsening CHF with moderate right pleural effusion , interval development of extensive bilateral interstitial opacities and large patchy multifocal bilateral consolidations that may represent edema or pneumonia. Recommend clinical and biochemical correlation. Repeat chest xry reported: IMPRESSION: 1. Right basilar atelectasis or pneumonia. 2. Cardiomegaly with mild congestion. Repeat chest xry reported: IMPRESSION: 1. Right basilar atelectasis or pneumonia. Small bilateral pleural effusions. 2. Cardiomegaly with mild congestion. 3. Endotracheal tube now projects 6 cm above level the elizabeth in appropriate position. Repeat chest xry reported: IMPRESSION: 1. Cardiomegaly with pulmonary congestion and edema. Superimposed pneumonia cannot be excluded. 2. Right pleural effusion. Repeat chest xry reported: FINDINGS: VERTEBRAE: Unremarkable. No acute fracture. Normal alignment. No instability. DISC SPACES: No acute findings. No significant narrowing. SOFT TISSUES: Unremarkable. HEART: Left cardiac. Mild congestive heart failure. TUBES, LINES AND DEVICES: Enteric tube tip in the stomach. The endotracheal tube (ETT) is in satisfactory position. OTHER FINDINGS: . ... IMPRESSION: Mild congestive heart failure. Upper ext (right) arterial duplex reported: IMPRESSION: 1. The right upper extremity brachial-cephalic AVF is thrombosed. 2. The right axillary stent is thrombosed. 3. The arteries of the right upper extremity including subclavian, axillary, brachial, radial and ulnar arteries are patent. CTA of lungs revealed: IMPRESSION: 1. No pulmonary embolism. 2. Large right and small left pleural effusion with associated bilateral atelectasis and consolidation. Patchy ground-glass opacities could represent pulmonary edema or an infectious / inflammatory process. Mediastinal lymphadenopathy similar to prior. Clinical correlation and continued follow-up is recommended. Overall appearance is worse compared to prior exam. CT of head reported: 1. No acute intracranial pathology. Cortical atrophy greater on the left. EKG revealed paced rhythm Telemetry revealed paced rhythm (it is of note that telemetry rhythm at the time of the code is not available to revealed) Echocardiogram reported: limited study. lvef 20% by visual estimate. postop septum. septum flattening noted. RV enlarged with dysfunction. biatrial enlargement. valves not assessed Medtronic ICD interrogation revealed: Remaining longevity of battery: 3.8 years; DDDR: 60/130; Pacing impedance: A 380 /RV 323/LV 304 Ohms; Shock impedance: RV 29 Ohms; Capture threshold: Atrial 0.5/RV 0.875 volts at 0.4 milliseconds; Program sensitivity: Atrial 0.3/RV 0.3 mV; Episodes: VT/VF: 1 resulting in shock; Changes performed: VTE detection interval was changed from 270 millisecond to 320 millisecond/VT detection interval was changed from 330 millisecond to 400 milliseconds Patient is a 64-year-old gentleman who presented with flu-like symptoms, but later coded in the floor. No tele rhythm of the time of the code was available to review (at first). Reportedly there was PA. Stable serial high sensitive troponin is against acute coronary syndrome. Patient does have baseline history of heart failure and pulmonary hypertension. He also has Bi V ICD (interrogation revealed episode of v-fib/v-tach resulting in Defibrillation). Does have baseline history of noncompliance to medication/hemodialysis. Does have baseline history of pancytopenia and is found to have significant anemia. With respiratory failure and on vent support. Case discussed with Electrophysiology (Dr Tamayo). Acute arrest Rule out PA Questionable encephalopathy, anoxic versus toxic? Recent URI Septic shock s/p Defibrillation secondary to V-fib/Vtach Encephalopathy Baseline pulmonary hypertension Baseline systolic heart failure Status post Bi V ICD End-stage renal disease, Noncompliant with medication, followups and hemodialysis Pancytopenia History of GI bleeding Right pleural effusion s/p Right AV fistula thrombectomy central angioplasty and peripheral venous angioplasty by Vascular surgeon Cardiac suggestion for management: Manage in ICU telemetry Aggressive hemodialysis Follow-up electrolytes and kidney function tests and correct abnormalities For now, continue aspirin On Amiodarone and Mexiletine Further evaluation and management depends on the above and clinical course Further evaluation and management also depends on the regaining of high level of consciousness/brain function If the patient regains higher brain function, may proceed with ischemic workup. Hematology evaluation for pancytopenia suggested Pulmonary follow-up A total of 75 minutes was spent reviewing the patient record, examining the patient, making a diagnostic and therapeutic plan, discussing this plan with medical personnel, following up on diagnostic studies and following the patient for clinical stability excluding any and all procedures. At least 50% of this time was spent in direct, [id number] contact. Thank you for allowing me to participate in this patient's care. Further recommendations will depend on patient's clinical course. Please do not hesitate to contact me if you have any questions or concerns. This medical document was created using electronic medical record system with [employer] computerized dictation system. Although this document has been carefully reviewed, there may still be some phonetic and typographical errors. These areas are purely typographical due to the imperfection of the software programs, and do not reflect any compromise in the patient's medical care. Dietary Evaluation Review Comments: 1 Consider TPN per pharmacy if NPO>7 days. 2.TF Nepro@40ml/hr providing 78g pro, 1699 kcal in 24 hrs, if EN/GI accessible, 3.Renal standard diet if pt is off vent and passing a speech eval. offer Nepro PO supplements 240 ml as tolerated if PO intake is less than 50% Expected Outcomes/Goals: Off Vent, maintain wt, less uremic symptoms with his routine HD course. Plan discussed with: Other (nurse) SUSHMA WALKER MD Jul 02, 2024 07:23
[2024-07-02 07:44] LABS: Base Excess 1.1 mmol/L (-2.0-3.0)
--- NOTE | 2024-07-02 15:54 | DVHPN2 ---
Progress Note Date Seen: Jul 02, 2024 Medical Necessity Reason Pt with a Central, PICC or Fol: Yes The following are medically ne: Central Line, Lynne Catheter Reason for lynne catheter: Strict I&O Subjective Patient reports: Other (More awake remains intubated sister and brother bedside) Review of Systems: Deferred Objective vital signs Vital Sign Date Time Temp Pulse Resp B/P (MAP) Pulse Ox O2 Delivery O2 Flow Rate FiO2 07/02/24 15:15 137/48 07/02/24 13:43 68 20 99 30 07/02/24 12:00 99.9 211.8 07/02/24 06:00 Mechanical Ventilator+ Total Intake and Output 07/01/24 07/01/24 07/02/24 14:59 22:59 06:59 Intake Total 52.5 ml 120.0 ml 142.5 ml Output Total 30 ml 75 ml Balance 52.5 ml 90.0 ml 67.5 ml medications Current Medications Medications Dose Ordered Sig/Colleen Route Start Time Stop Time Status Last Admin Dose Admin Acetaminophen 650 mg Q6HP PRN PO 06/27/24 17:15 Bacitracin/ Polymyxin B Sulfate 1 applic TID OP 06/27/24 22:00 07/02/24 14:27 1 APPLIC Vancomycin HCl 0 ml @ 0 mls/hr UD IV 06/28/24 08:00 Dextrose 50 ml UD PRN IV 06/28/24 08:00 06/29/24 11:58 50 ML Pantoprazole Sodium 40 mg DAILY IV 06/29/24 10:00 07/02/24 10:45 40 MG Heparin Sodium/ Dextrose 250 ml @ 13.896 mls/ hr Q18H IV 06/28/24 08:00 UNV Midazolam HCl 50 ml @ 1 mls/hr Q24H IV 06/28/24 10:30 06/29/24 07:21 5 MLS/HR Fentanyl Citrate 250 ml @ 2.5 mls/hr Q24H IV 06/28/24 10:30 07/02/24 12:25 10 MLS/HR Diagnostic Test (Pha) 1 strip Q6HR 06/28/24 18:00 07/02/24 12:00 1 STRIP Norepinephrine Bitartrate 32 mg/ Sodium Chloride 250 ml @ 0.938 mls/ hr Q24H IV 06/28/24 14:30 06/28/24 16:00 9.375 MLS/HR Epoetin Eligio-epbx 10,000 unit MWF@2100 SC 06/29/24 21:00 07/02/24 00:40 10,000 UNIT Artificial Tears 2 drop Q6HP PRN EACHEYE 06/29/24 11:30 Piperacillin Sod/ Tazobactam Sod 100 ml @ 25 mls/hr Q12H IV 06/30/24 10:00 07/02/24 10:46 25 MLS/HR Enteral Nutritional Formula 1,000 ml 30ML/HR GT 06/30/24 15:45 06/30/24 16:00 1,000 ML Amiodarone HCl 200 mg BID PO 06/30/24 22:00 07/02/24 10:46 200 MG Mexiletine HCl 150 mg Q8HR PO 06/30/24 22:00 07/02/24 14:27 150 MG Dexmedetomidine HCl 400 mcg/ Dextrose 100 ml @ 4.465 mls/ hr [id number] IV 07/02/24 12:15 07/02/24 13:38 4.465 MLS/HR Examination: GENERAL:Normal, LUNGS:Abnormal, MSK:Abnormal, NEURO:Normal laboratory and microbiology Laboratory Tests 07/02/24 04:55 Test 07/02/24 04:55 Range/Units Serum Glucose 100 74-106 mg/dL Microbiology Date/Time Source Procedure Growth Status 06/28/24 11:44 Nose MRSA Screen - Final Complete 06/28/24 08:05 Sputum Gram Stain - Final Complete 06/28/24 08:05 Sputum Respiratory Culture - Final Complete 06/28/24 07:55 Blood Blood Culture - Final Staphylococcus epidermidis Complete Problem List/Assessment/Plan Problem List/Assessment/Plan ESRD on dialysis T/Th/S- pt missed several outpt dialysis appts Hyperkalemia s/p cardiac arrest thrombosed AVF status post angioplasty and fistulogram by vascular surgery 07/01 Acute resp failure Pleural effusions CHF exacerbation Hx of Afib Hx of HI HTN acute anemia planned for PRBC shock recs thrombosed AVF status post angioplasty and fistulogram by vascular surgery 07/01--has rajesh cath for now Okay to remove Rajesh cath once vascular surgery approves to use AVF HD today Intubated Plan discussed with: Other My Orders My Orders Orders - TANJAVOUR,ADITYA MD Procedure Category Date Status Time Hemodialysis Orders ORDERS 07/02/24 Transmitted 15:49 Dietary Evaluation Review Comments: 1 Consider TPN per pharmacy if NPO>7 days. 2.TF Nepro@40ml/hr providing 78g pro, 1699 kcal in 24 hrs, if EN/GI accessible, 3.Renal standard diet if pt is off vent and passing a speech eval. offer Nepro PO supplements 240 ml as tolerated if PO intake is less than 50% Expected Outcomes/Goals: Off Vent, maintain wt, less uremic symptoms with his routine HD course. ADITYA DUNCAN MD Jul 02, 2024 15:54
--- NOTE | 2024-07-02 18:49 | DVHPNRES ---
Progress Note Date Seen: Jul 02, 2024 Resident Creating Document: YVONNE DOMINGUEZ RESIDENT Medical Necessity Reason Pt with a Central, PICC or Fol: Yes The following are medically ne: Central Line, Lynne Catheter Reason for lynne catheter: Strict I&O Subjective Review of Systems Patient was examined at bedside, he is awake and oriented, he is able to follow commands, CPAP trial tomorrow morning. HD performed today through Rajesh catheter ,thrombosed AVF status post angioplasty and fistulogram by vascular surgery 07/01--has rajesh cath for now, per Nephrology team, remove Rajesh cath once vascular surgery approves to use AVF. Per cardiology, Mexiletine and amiodarone will continue ,synergistic antyarrhytmic effect,it reduces VT/AFib events in patients with an implantable cardioverter defibrillator, particularly in ischemic cardiomyopathy. Drips: Fentanyl for sedation , will hold it for CPAP at am. precedex atb Enteral feedings: 30 ml HD: 2L removed today Patient reports: Other (intubated) Objective vital signs Vital Sign Date Time Temp Pulse Resp B/P (MAP) Pulse Ox O2 Delivery O2 Flow Rate FiO2 07/02/24 17:03 98.6 62 14 107/39 98.6 07/02/24 16:00 100 07/02/24 15:52 30 07/02/24 06:00 Mechanical Ventilator+ Total Intake and Output 07/01/24 07/01/24 07/02/24 14:59 22:59 06:59 Intake Total 52.5 ml 120.0 ml 142.5 ml Output Total 30 ml 75 ml Balance 52.5 ml 90.0 ml 67.5 ml medications Current Medications Medications Dose Ordered Sig/Colleen Route Start Time Stop Time Status Last Admin Dose Admin Acetaminophen 650 mg Q6HP PRN PO 06/27/24 17:15 Bacitracin/ Polymyxin B Sulfate 1 applic TID OP 06/27/24 22:00 07/02/24 14:27 1 APPLIC Vancomycin HCl 0 ml @ 0 mls/hr UD IV 06/28/24 08:00 Dextrose 50 ml UD PRN IV 06/28/24 08:00 06/29/24 11:58 50 ML Pantoprazole Sodium 40 mg DAILY IV 06/29/24 10:00 07/02/24 10:45 40 MG Heparin Sodium/ Dextrose 250 ml @ 13.896 mls/ hr Q18H IV 06/28/24 08:00 UNV Midazolam HCl 50 ml @ 1 mls/hr Q24H IV 06/28/24 10:30 06/29/24 07:21 5 MLS/HR Fentanyl Citrate 250 ml @ 2.5 mls/hr Q24H IV 06/28/24 10:30 07/02/24 12:25 10 MLS/HR Diagnostic Test (Pha) 1 strip Q6HR 06/28/24 18:00 07/02/24 12:00 1 STRIP Norepinephrine Bitartrate 32 mg/ Sodium Chloride 250 ml @ 0.938 mls/ hr Q24H IV 06/28/24 14:30 06/28/24 16:00 9.375 MLS/HR Epoetin Eligio-epbx 10,000 unit MWF@2100 SC 06/29/24 21:00 07/02/24 00:40 10,000 UNIT Artificial Tears 2 drop Q6HP PRN EACHEYE 06/29/24 11:30 Piperacillin Sod/ Tazobactam Sod 100 ml @ 25 mls/hr Q12H IV 06/30/24 10:00 07/02/24 10:46 25 MLS/HR Enteral Nutritional Formula 1,000 ml 30ML/HR GT 06/30/24 15:45 07/02/24 15:57 1,000 ML Amiodarone HCl 200 mg BID PO 06/30/24 22:00 07/02/24 10:46 200 MG Mexiletine HCl 150 mg Q8HR PO 06/30/24 22:00 07/02/24 14:27 150 MG Dexmedetomidine HCl 400 mcg/ Dextrose 100 ml @ 4.465 mls/ hr [id number] IV 07/02/24 12:15 07/02/24 13:38 4.465 MLS/HR Examination GEN: Patient under mechanical ventilation CV: Paced rhythm, no tachycardia, 3/6 systolic murmur LUNGS: Rhonchi in right middle/right lower lobe ABD: Soft, nontender nondistended, normal bowel sounds no masses or organomegaly EXT: skin Warm, well perfused. no rashes. No clubbing, cyanosis, or edema. Left femoral triple-lumen catheter, left IJ Rajesh catheter,AV fistula right arm Neuro: Suction and gag reflex present laboratory and microbiology Laboratory Tests 07/02/24 04:55 Test 07/02/24 04:55 Range/Units Serum Glucose 100 74-106 mg/dL Microbiology Date/Time Source Procedure Growth Status 06/28/24 11:44 Nose MRSA Screen - Final Complete 06/28/24 08:05 Sputum Gram Stain - Final Complete 06/28/24 08:05 Sputum Respiratory Culture - Final Complete 06/28/24 07:55 Blood Blood Culture - Final Staphylococcus epidermidis Complete Problem List/Assessment/Plan Problem List/Assessment/Plan Neurology: # acute hypoxemic encephalopathy due to severe anoxic brain injury # severe hypoxemic/ischemic brain injury post cardiac arrest versus metabolic encephalopathy Patient currently under mechanical ventilation All sedation and pressors were held Neurology evaluation CPAP trial tomorrow am Hemodialysis today at 5 pm Rajesh catheter for hemodialysis, ultrasound-guided per today [facility]J Right AV fistula thrombectomy central angioplasty and peripheral venous angioplasty performed Vascular team on board Drips -fentanyl -precedex Cardiovascular Acute on chronic systolic heart failure NYHA IV Shock cardiogenic/septic History of nonischemic cardiomyopathy History of myocardial infarction Severe pulmonary hypertension RVSP 75 mmHg Atrial fibrillation HFrEF SP AICD/POUNCER MACHINE D/pace CAD status post 3 stents -sedation and pressors were stopped, to evaluate neurological function -CT angiography unremarkable -[employer] interrogation unremarkable -amiodarone po -mexiletine po Respiratory: Acute hypoxemic respiratory failure due to heart failure reduced ejection fraction exacerbation due to septic/cardiogenic shock Patient intubated, ventilated AC mode , FiO2 of 30% Bilateral infiltrates on chest x-ray possible aspiration pneumonia versus pulmonary edema Bilateral pleural effusion - ABG -FiO2 30% -currently under mechanical ventilation - Suction and gag reflex present -chest x-rays tomorrow morning Renal: ESRD on hemodialysis Acute kidney injury on ESRD Hyperkalemia -hemodialysis today at 6pm -Rajesh catheter -Right AV fistula thrombectomy central angioplasty and peripheral venous angioplasty CT angiography rule out PE CT head unremarkable Infectious disease: Shock likely septic due to suspected UTI/aspiration pneumonia Leukocytosis Bilateral infiltrates likely due to possible aspiration pneumonia -continue empiric broad-spectrum antibiotic with Zosyn and vanco Monitor white blood cell count and lactate Endocrine History of Type 2 diabetes Hematology: Severe anemia status post 2 packed red blood cell transfusion Monitor CBC daily Consider holding anticoagulation if no acute education Assess need for PRBC transfusion if hemoglobin less than 7. drips: fentanyl precedex Critical care, excluding procedures, time spent: 81 minutes goals of care discussed with the family case discussed with Code status: Full code Plan discussed with: Other (sister) My Orders My Orders Orders - YVONNE DOMINGUEZ RESIDENT Procedure Category Date Status Time Chest Portable XY 07/02/24 Resulted 04:00 Abg W/ Co-Ox RT 07/02/24 Logged 04:00 Respiratory Misc. RT 07/02/24 Transmitted Order 10:08 Dietary Evaluation Review Comments: 1 Consider TPN per pharmacy if NPO>7 days. 2.TF Nepro@40ml/hr providing 78g pro, 1699 kcal in 24 hrs, if EN/GI accessible, 3.Renal standard diet if pt is off vent and passing a speech eval. offer Nepro PO supplements 240 ml as tolerated if PO intake is less than 50% Expected Outcomes/Goals: Off Vent, maintain wt, less uremic symptoms with his routine HD course. Date of Service: Jul 02, 2024 Billing Provider: BELTRAN KLEIN MD Common Visit Codes: 50509-[id number] CARE 30-74 MIN, 74332-[id number] CARE-EACH +30MIN YVONNE DOMINGUEZ RESIDENT Jul 02, 2024 18:49 BELTRAN KLEIN MD Jul 05, 2024 15:31
[2024-07-02] MEDS: VANCOMYCIN 1.25GM/250ML 250 ML IV ONE (20:20)
[2024-07-03] VITALS (95 sets, daily range): BP systolic 119–180; BP diastolic 29–80; PULSE 60–78; RESP 10–25; TEMP 97.7–100.4; O2SAT 98–100
[2024-07-03 05:21] LABS: Basophils # (auto) 0 10 ^3/uL (0-0.2); Basophils % (auto) 0.8 % (0.0-2.0); Eosinophils # (auto) 0.4 10 ^3/uL (0-0.8); Hemoglobin 7.8 g/dL (13.5-17.5)
[2024-07-03 05:25] LABS: Eosinophils % (auto) 14.2 % (0.0-7.0); Hematocrit 23.3 % (41.0-53.0); Lymphocytes # (auto) 0.2 10 ^3/uL (0.4-5.4); Lymphocytes % (auto) 8.5 % (10.0-50.0); Mean Corpuscular Hemoglobin 31.6 pg (28.0-32.0); Mean Corpuscular Hgb Conc. 33.5 g/dL (32.0-36.0); Mean Corpuscular Volume 94.3 fL (80.0-100.0); Monocytes # (auto) 0.3 10 ^3/uL (0-1.3); Monocytes % (auto) 8.9 % (0.0-12.0); Neutrophils % (auto) 67.6 % (37.0-80.0); Nucleated Red Blood Cells % 0.4 %; Platelet Count (auto) 52 10^3/uL (140-450); Red Blood Cells 2.47 10^6/uL (4.5-5.90); Red Cell Distribution Width 19.3 % (11.8-14.3); White Blood Cell 2.9 10^3/uL (4.4-10.8)
[2024-07-03 05:31] LABS: Alanine Aminotransferase 18 U/L (7-40); Alkaline Phosphatase 60 U/L (46-116); Anion Gap 12 (5-15); Aspartate Aminotransferase 15 U/L (13-40); BUN/Creatinine Ratio 6.2 (10.0-20.0); Bilirubin, Total 1.1 mg/dL (0.2-1.0); Calcium 9.1 mg/dL (8.7-10.4); Carbon Dioxide 28 mmol/L (20-31); Chloride 100 mmol/L (98-107); Glucose 99 mg/dL (74-106); Sodium 140 mmol/L (136-145)
--- NOTE | 2024-07-03 05:31 | DVH ---
EXAM: XR Chest, 1 View CLINICAL INDICATION: intubation TECHNIQUE: Frontal view of the chest. COMPARISON: XY CHEST PORTABLE on DOS: 07/02/24, XY CHEST PORTABLE on DOS: 07/01/24, XY CHEST PORTABLE on DOS: 06/30/24, XY CHEST PORTABLE on DOS: 06/30/24, XY CHEST PORTABLE on DOS: 06/28/24 FINDINGS: LUNGS AND PLEURAL SPACES: See below. HEART: Cardiomegaly with moderate congestion. MEDIASTINUM: Unremarkable. Normal mediastinal contour. BONES/JOINTS: Unremarkable. No acute fracture. TUBES, LINES AND DEVICES: Stable tubes and lines. OTHER FINDINGS: . None. .. ... IMPRESSION: Cardiomegaly with moderate congestion.
[2024-07-03 05:35] LABS: Albumin 2.9 g/dL (3.2-4.8); Blood Urea Nitrogen 24 mg/dL (9-23); Potassium 3.3 mmol/L (3.5-5.1)
--- NOTE | 2024-07-03 06:07 | DVHPN2 ---
Progress Note - Dictate Date Seen: Jul 03, 2024 Medical Necessity Reason Pt with a Central, PICC or Fol: Yes The following are medically ne: Central Line, Lynne Catheter Reason for lynne catheter: Strict I&O vital signs Vital Sign Date Time Temp Pulse Resp B/P (MAP) Pulse Ox O2 Delivery O2 Flow Rate FiO2 07/03/24 04:00 97.9 62 18 135/37 (69) 100 208.2 07/03/24 04:00 30 07/03/24 04:00 Mechanical Ventilator+ Total Intake and Output 07/02/24 07/02/24 07/03/24 15:00 23:00 07:00 Intake Total 84.711 ml 587.910 ml 113.0 ml Output Total 0 ml 2050 ml Balance 84.711 ml -1462.090 ml 113.0 ml medications Current Medications Medications Dose Ordered Sig/Colleen Route Start Time Stop Time Status Last Admin Dose Admin Acetaminophen 650 mg Q6HP PRN PO 06/27/24 17:15 Bacitracin/ Polymyxin B Sulfate 1 applic TID OP 06/27/24 22:00 07/02/24 22:00 1 APPLIC Vancomycin HCl 0 ml @ 0 mls/hr UD IV 06/28/24 08:00 Dextrose 50 ml UD PRN IV 06/28/24 08:00 06/29/24 11:58 50 ML Pantoprazole Sodium 40 mg DAILY IV 06/29/24 10:00 07/02/24 10:45 40 MG Heparin Sodium/ Dextrose 250 ml @ 13.896 mls/ hr Q18H IV 06/28/24 08:00 UNV Midazolam HCl 50 ml @ 1 mls/hr Q24H IV 06/28/24 10:30 06/29/24 07:21 5 MLS/HR Fentanyl Citrate 250 ml @ 2.5 mls/hr Q24H IV 06/28/24 10:30 07/02/24 12:25 10 MLS/HR Diagnostic Test (Pha) 1 strip Q6HR 06/28/24 18:00 07/03/24 00:04 1 STRIP Norepinephrine Bitartrate 32 mg/ Sodium Chloride 250 ml @ 0.938 mls/ hr Q24H IV 06/28/24 14:30 06/28/24 16:00 9.375 MLS/HR Epoetin Eligio-epbx 10,000 unit MWF@2100 SC 06/29/24 21:00 07/02/24 00:40 10,000 UNIT Artificial Tears 2 drop Q6HP PRN EACHEYE 06/29/24 11:30 Piperacillin Sod/ Tazobactam Sod 100 ml @ 25 mls/hr Q12H IV 06/30/24 10:00 07/02/24 22:34 25 MLS/HR Enteral Nutritional Formula 1,000 ml 30ML/HR GT 06/30/24 15:45 07/02/24 15:57 1,000 ML Amiodarone HCl 200 mg BID PO 06/30/24 22:00 07/02/24 22:34 200 MG Mexiletine HCl 150 mg Q8HR PO 06/30/24 22:00 07/02/24 22:34 150 MG Dexmedetomidine HCl 400 mcg/ Dextrose 100 ml @ 4.465 mls/ hr [id number] IV 07/03/24 02:30 07/03/24 02:30 4.465 MLS/HR laboratory and microbiology Laboratory Tests 07/03/24 04:34 Test 07/03/24 04:34 Range/Units Serum Glucose 99 74-106 mg/dL Assessment/Plan Patient is a 64-year-old gentleman who presented on June 27, 2024 for around a week of flu symptoms and upper left swellings. At the time of evaluation, the patient is being managed in unit. He is intubated and not source of history. Information was obtained by reviewing the chart. Reportedly, the patient had missed hemodialysis quite a few times before presentation as he felt sick. It is reported that he did have flu-like symptoms, eye congestion and diarrhea prior to presentation. While being managed on the floor, patient was found to be nonresponsive and was coded. There is no detailed information about the time of the code. There is question about PEA. The patient was intubated and was brought to the unit. Patient was seen by on-call compass operator at that point. At this point, we are called for Cardiology as the patient is known to us from before. There is no report of actual chest pain. It is of note that serial troponin has been negative. There is no available telemetry at the time of the episode. Is also of note that the patient does have BiV-ICD from before. Presently, the patient is admitted with septic shock. Patient was in the hospital around a month ago. And was managed for acute on chronic systolic heart failure, pancytopenia and pleural effusions (for which had pleurocentesis). He should have been on Eliquis as outpatient. Intubated. There are signs of conjunctivitis on bilateral eyes. No JVD. Mucosa is pink and wet. No carotid bruit. Lungs: Scattered rhonchi in the lungs is heard. Cardiac: Regular, systolic murmur 3/6 in the apex is heard. The site for ICD implantation looks clean with no erythema/ecchymosis/tenderness. Abdomen is soft. Bowel sound is positive. Extremities reveal 2+ edema bilaterally. AV fistula in the right upper extremity with thrill was observed. 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 Echocardiogram of April 08, 2024 had reported four-chamber dilatation, ejection fraction of 20%, [id number] MR/TR and right ventricular systolic pressure of 75 mm Hg Echocardiogram of May 19, 2024 had reported four-chamber dilatation, ejection fraction of 35%, D shaped septum, pulmonary hypertension, mobile interatrial septum, [id number] aortic insufficiency, mild mitral regurgitation, moderate TR and right ventricular systolic pressure of 80 mm Hg WBC: 2.9 - 2.6 - 2.9 - 4.3 - 5.6 - 3.6 - 4.3 - 2.9 Hemoglobin: 7.2 - 7.2 - 8.0 - 5.5 - 8.8 - 8.7 - 7.4 - 7.5 - 7.8 Platelet: 102 - 111 - 106 - 99 - 89 - 69 - 70 - 52 Creatinine: 8.29 - 8.51 - 8.5 - 8.17 - 8.63 - 6.77 - 4.80 - 3.86 Potassium: 5.2 - 5.7 - 5.1 - 5.2 - 5.9 - 4.5 - 4.3 - 4.2 - 3.3 Lactic acid: 4.7 - 2.7 Troponin (high sensitive) 40 - 41 - 40 BNP: 2509.04 D-Dimer: 4.72 Digoxin: <0.14 Chest x-ray reported: FINDINGS: LUNGS AND PLEURAL SPACES: See below. HEART: Cardiomegaly with moderate congestion. Left cardiac. MEDIASTINUM: Unremarkable. Normal mediastinal contour. BONES/JOINTS: Unremarkable. No acute fracture. OTHER FINDINGS: . . . .. IMPRESSION: Cardiomegaly with moderate congestion. Repeat chest x-ray reported: Medical devices: The ETT ends above the level of elizabeth at the level of clavicular heads. The enteric tube extends to the stomach. Multi lead left upper chest wall AICD with leads extending to the cardiac chambers. Cardiomediastinal: The heart is moderately enlarged. Pulmonary vasculature is prominent. Atherosclerotic calcification of the aortic arch noted. Lungs: There is interval enlargement of now moderate-sized right pleural effusion and interval development of patchy consolidation in the right middle and left upper lung zone. Small opacities are noted in the left lung base. Diffuse bilateral interstitial opacities are noted. No pneumothorax. Bones/soft tissues: No acute abnormality is noted. Right subclavian vascular stents noted. IMPRESSION: 1. Worsening CHF with moderate right pleural effusion , interval development of extensive bilateral interstitial opacities and large patchy multifocal bilateral consolidations that may represent edema or pneumonia. Recommend clinical and biochemical correlation. Repeat chest xry reported: IMPRESSION: 1. Right basilar atelectasis or pneumonia. 2. Cardiomegaly with mild congestion. Repeat chest xry reported: IMPRESSION: 1. Right basilar atelectasis or pneumonia. Small bilateral pleural effusions. 2. Cardiomegaly with mild congestion. 3. Endotracheal tube now projects 6 cm above level the elizabeth in appropriate position. Repeat chest xry reported: IMPRESSION: 1. Cardiomegaly with pulmonary congestion and edema. Superimposed pneumonia cannot be excluded. 2. Right pleural effusion. Repeat chest xry reported: FINDINGS: VERTEBRAE: Unremarkable. No acute fracture. Normal alignment. No instability. DISC SPACES: No acute findings. No significant narrowing. SOFT TISSUES: Unremarkable. HEART: Left cardiac. Mild congestive heart failure. TUBES, LINES AND DEVICES: Enteric tube tip in the stomach. The endotracheal tube (ETT) is in satisfactory position. OTHER FINDINGS: . ... IMPRESSION: Mild congestive heart failure. Repeat chest xry revealed: IMPRESSION: Cardiomegaly with moderate congestion. Upper ext (right) arterial duplex reported: IMPRESSION: 1. The right upper extremity brachial-cephalic AVF is thrombosed. 2. The right axillary stent is thrombosed. 3. The arteries of the right upper extremity including subclavian, axillary, brachial, radial and ulnar arteries are patent. CTA of lungs revealed: IMPRESSION: 1. No pulmonary embolism. 2. Large right and small left pleural effusion with associated bilateral atelectasis and consolidation. Patchy ground-glass opacities could represent pulmonary edema or an infectious / inflammatory process. Mediastinal lymphadenopathy similar to prior. Clinical correlation and continued follow-up is recommended. Overall appearance is worse compared to prior exam. CT of head reported: 1. No acute intracranial pathology. Cortical atrophy greater on the left. EKG revealed paced rhythm Telemetry revealed paced rhythm (it is of note that telemetry rhythm at the time of the code is not available to revealed) Echocardiogram reported: limited study. lvef 20% by visual estimate. postop septum. septum flattening noted. RV enlarged with dysfunction. biatrial enlargement. valves not assessed [employer] ICD interrogation revealed: Remaining longevity of battery: 3.8 years; DDDR: 60/130; Pacing impedance: A 380 /RV 323/LV 304 Ohms; Shock impedance: RV 29 Ohms; Capture threshold: Atrial 0.5/RV 0.875 volts at 0.4 milliseconds; Program sensitivity: Atrial 0.3/RV 0.3 mV; Episodes: VT/VF: 1 resulting in shock; Changes performed: VTE detection interval was changed from 270 millisecond to 320 millisecond/VT detection interval was changed from 330 millisecond to 400 milliseconds Patient is a 64-year-old gentleman who presented with flu-like symptoms, but later coded in the floor. No tele rhythm of the time of the code was available to review (at first). Reportedly there was PA. Stable serial high sensitive troponin is against acute coronary syndrome. Patient does have baseline history of heart failure and pulmonary hypertension. He also has Bi V ICD (interrogation revealed episode of v-fib/v-tach resulting in Defibrillation). Does have baseline history of noncompliance to medication/hemodialysis. Does have baseline history of pancytopenia and is found to have significant anemia. With respiratory failure and on vent support. Case discussed with Electrophysiology (Dr Tamayo). Acute arrest Rule out PA Questionable encephalopathy, anoxic versus toxic? Recent URI Septic shock s/p Defibrillation secondary to V-fib/Vtach Encephalopathy Baseline pulmonary hypertension Baseline systolic heart failure Status post Bi V ICD End-stage renal disease, Noncompliant with medication, followups and hemodialysis Pancytopenia History of GI bleeding Right pleural effusion s/p Right AV fistula thrombectomy central angioplasty and peripheral venous angioplasty by Vascular surgeon Cardiac suggestion for management: Manage in ICU telemetry Aggressive hemodialysis Follow-up electrolytes and kidney function tests and correct abnormalities For now, continue aspirin On Amiodarone and Mexiletine Further evaluation and management depends on the above and clinical course Further evaluation and management also depends on the regaining of high level of consciousness/brain function If the patient regains higher brain function, may proceed with ischemic workup. Hematology evaluation for pancytopenia suggested Pulmonary follow-up A total of 75 minutes was spent reviewing the patient record, examining the patient, making a diagnostic and therapeutic plan, discussing this plan with medical personnel, following up on diagnostic studies and following the patient for clinical stability excluding any and all procedures. At least 50% of this time was spent in direct, [id number] contact. Thank you for allowing me to participate in this patient's care. Further recommendations will depend on patient's clinical course. Please do not hesitate to contact me if you have any questions or concerns. This medical document was created using electronic medical record system with [employer] computerized dictation system. Although this document has been carefully reviewed, there may still be some phonetic and typographical errors. These areas are purely typographical due to the imperfection of the software programs, and do not reflect any compromise in the patient's medical care. Dietary Evaluation Review Comments: 1 Consider TPN per pharmacy if NPO>7 days. 2.TF Nepro@40ml/hr providing 78g pro, 1699 kcal in 24 hrs, if EN/GI accessible, 3.Renal standard diet if pt is off vent and passing a speech eval. offer Nepro PO supplements 240 ml as tolerated if PO intake is less than 50% Expected Outcomes/Goals: Off Vent, maintain wt, less uremic symptoms with his routine HD course. Plan discussed with: Other (nurse) SUSHMA WALKER MD Jul 03, 2024 06:07
--- NOTE | 2024-07-03 09:48 | DVHPN2 ---
Progress Note Date Seen: Jul 03, 2024 Medical Necessity Reason Pt with a Central, PICC or Fol: Yes The following are medically ne: Central Line, Lynne Catheter Reason for lynne catheter: Strict I&O Subjective Review of Systems: RESPIRATORY:Abnormal Other Systems: Patient seen and examined by myself today in follow-up Objective vital signs Vital Sign Date Time Temp Pulse Resp B/P (MAP) Pulse Ox O2 Delivery O2 Flow Rate FiO2 07/03/24 09:30 99.0 60 20 143/48 (79) 100 210.2 07/03/24 08:10 30 07/03/24 08:00 Mechanical Ventilator+ Total Intake and Output 07/02/24 07/02/24 07/03/24 15:00 23:00 07:00 Intake Total 84.711 ml 637.910 ml 359.633 ml Output Total 0 ml 2050 ml 0 ml Balance 84.711 ml -1412.090 ml 359.633 ml medications Current Medications Medications Dose Ordered Sig/Colleen Route Start Time Stop Time Status Last Admin Dose Admin Acetaminophen 650 mg Q6HP PRN PO 06/27/24 17:15 Bacitracin/ Polymyxin B Sulfate 1 applic TID OP 06/27/24 22:00 07/03/24 06:28 1 APPLIC Vancomycin HCl 0 ml @ 0 mls/hr UD IV 06/28/24 08:00 Dextrose 50 ml UD PRN IV 06/28/24 08:00 06/29/24 11:58 50 ML Pantoprazole Sodium 40 mg DAILY IV 06/29/24 10:00 07/02/24 10:45 40 MG Heparin Sodium/ Dextrose 250 ml @ 13.896 mls/ hr Q18H IV 06/28/24 08:00 UNV Midazolam HCl 50 ml @ 1 mls/hr Q24H IV 06/28/24 10:30 06/29/24 07:21 5 MLS/HR Fentanyl Citrate 250 ml @ 2.5 mls/hr Q24H IV 06/28/24 10:30 07/02/24 12:25 10 MLS/HR Diagnostic Test (Pha) 1 strip Q6HR 06/28/24 18:00 07/03/24 06:27 1 STRIP Norepinephrine Bitartrate 32 mg/ Sodium Chloride 250 ml @ 0.938 mls/ hr Q24H IV 06/28/24 14:30 06/28/24 16:00 9.375 MLS/HR Epoetin Eligio-epbx 10,000 unit MWF@2100 SC 06/29/24 21:00 07/02/24 00:40 10,000 UNIT Artificial Tears 2 drop Q6HP PRN EACHEYE 06/29/24 11:30 Piperacillin Sod/ Tazobactam Sod 100 ml @ 25 mls/hr Q12H IV 06/30/24 10:00 07/02/24 22:34 25 MLS/HR Enteral Nutritional Formula 1,000 ml 30ML/HR GT 06/30/24 15:45 07/02/24 15:57 1,000 ML Amiodarone HCl 200 mg BID PO 06/30/24 22:00 07/02/24 22:34 200 MG Mexiletine HCl 150 mg Q8HR PO 06/30/24 22:00 07/03/24 06:27 150 MG Dexmedetomidine HCl 400 mcg/ Dextrose 100 ml @ 4.465 mls/ hr [id number] IV 07/03/24 02:30 07/03/24 07:41 2.233 MLS/HR Examination: LUNGS:Normal, CVS:Normal, MSK:Normal laboratory and microbiology Laboratory Tests 07/03/24 04:34 Test 07/03/24 04:34 Range/Units Serum Glucose 99 74-106 mg/dL Microbiology Date/Time Source Procedure Growth Status 06/28/24 11:44 Nose MRSA Screen - Final Complete 06/28/24 08:05 Sputum Gram Stain - Final Complete 06/28/24 08:05 Sputum Respiratory Culture - Final Complete 06/28/24 07:55 Blood Blood Culture - Final Staphylococcus epidermidis Complete Problem List/Assessment/Plan Problem List/Assessment/Plan ESRD on dialysis Acute respiratory failure, patient intubated on ventilator Hyperkalemia s/p cardiac arrest thrombosed AVF status post angioplasty and fistulogram by vascular surgery 07/01 CHF exacerbation Atrial fibrillation HTN Anemia chronic kidney disease Hypokalemia Recommendation Hemodialysis tomorrow Epogen [id number] IV post hemodialysis Fluid restrictions KCL replacement Blood pressure control We will continue to follow up Plan discussed with: Other (Nurse) Dietary Evaluation Review Comments: 1 Consider TPN per pharmacy if NPO>7 days. 2.TF Nepro@40ml/hr providing 78g pro, 1699 kcal in 24 hrs, if EN/GI accessible, 3.Renal standard diet if pt is off vent and passing a speech eval. offer Nepro PO supplements 240 ml as tolerated if PO intake is less than 50% Expected Outcomes/Goals: Off Vent, maintain wt, less uremic symptoms with his routine HD course. BRITTANY AIKEN MD Jul 03, 2024 09:48
[2024-07-03] MEDS: POTASSIUM CHL 20MEQ/100ML 100 ML IV ONE (10:10)
[2024-07-03] MEDS: POTASSIUM CHL 20MEQ/100ML 100 ML IV SCH (12:00)
--- NOTE | 2024-07-03 14:23 | MEDREC ---
[facility] ASP Intervention Section I [facility] ASP Intervention: Deescalate AB based on CS, Review courses of therapy (MRSA SCREEN WAS NEGATIVE. THE FINAL SPUTUM CULTURE SHOWED NORMAL DINA. THE FINAL BLOOD CULTURE SHOWED STAPHYLOCOCCUS EPIDERMIDIS IN 1 OUT OF 2 SAMPLES (COULD BE CONTAMINATION). PLEASE CONSIDER DE-ESCALATING OR DISCONTINUING ANTIBIO TICS IF CLINICALLY APPROPRIATE) MICHELLE FIGUEROA Jul 03, 2024 14:23
[2024-07-03] MEDS: ACETAMINOPHEN 325 MG TAB PO PRN (14:45)
[2024-07-03] MEDS ORDERED: hydrALAZINE HCL 20 MG/ML VL IV PRN (18:00)
--- NOTE | 2024-07-03 18:26 | DVHPNRES ---
Progress Note Date Seen: Jul 03, 2024 Resident Creating Document: YVONNE DOMINGUEZ RESIDENT Medical Necessity Reason Pt with a Central, PICC or Fol: Yes The following are medically ne: Central Line, Lynne Catheter Reason for lynne catheter: Strict I&O Subjective Review of Systems Patient was examined at bedside, he is awake and oriented, he is able to follow commands, CPAP at 12 am with PS of 7 ,weaning parameters were obtained ,vital capacity 799, NIF-17, RSBI 51 for which the patient was placed back on ordered vent settings due to increased respiratory rate and work of breathing. Patient vital signs were stable today with some peaks in the systolic bp, and low diastolic bp, ventilator setting : RR 14 TV:500 FiO 2: 30% PEEP:5 Drips: precedex 0.2, fentalyl 75 Hemodialysis tomorrow Patient had peaks of fever during the day, and based on clinical status and multiple hardwares ,we will continue with the antibiotics at this time. Patient reports: No new complaints Objective vital signs Vital Sign Date Time Temp Pulse Resp B/P (MAP) Pulse Ox O2 Delivery O2 Flow Rate FiO2 07/03/24 16:15 100.2 63 14 150/54 (86) 100 212.4 07/03/24 16:00 30 07/03/24 16:00 Mechanical Ventilator+ Total Intake and Output 07/02/24 07/02/24 07/03/24 15:00 23:00 07:00 Intake Total 84.711 ml 637.910 ml 359.633 ml Output Total 0 ml 2050 ml 0 ml Balance 84.711 ml -1412.090 ml 359.633 ml medications Current Medications Medications Dose Ordered Sig/Collene Route Start Time Stop Time Status Last Admin Dose Admin Acetaminophen 650 mg Q6HP PRN PO 06/27/24 17:15 07/03/24 14:45 650 MG Bacitracin/ Polymyxin B Sulfate 1 applic TID OP 06/27/24 22:00 07/03/24 14:53 1 APPLIC Vancomycin HCl 0 ml @ 0 mls/hr UD IV 06/28/24 08:00 Dextrose 50 ml UD PRN IV 06/28/24 08:00 06/29/24 11:58 50 ML Pantoprazole Sodium 40 mg DAILY IV 06/29/24 10:00 07/03/24 10:13 40 MG Heparin Sodium/ Dextrose 250 ml @ 13.896 mls/ hr Q18H IV 06/28/24 08:00 UNV Midazolam HCl 50 ml @ 1 mls/hr Q24H IV 06/28/24 10:30 06/29/24 07:21 5 MLS/HR Fentanyl Citrate 250 ml @ 2.5 mls/hr Q24H IV 06/28/24 10:30 07/02/24 12:25 10 MLS/HR Diagnostic Test (Pha) 1 strip Q6HR 06/28/24 18:00 07/03/24 17:50 1 STRIP Norepinephrine Bitartrate 32 mg/ Sodium Chloride 250 ml @ 0.938 mls/ hr Q24H IV 06/28/24 14:30 06/28/24 16:00 9.375 MLS/HR Epoetin Eligio-epbx 10,000 unit MWF@2100 SC 06/29/24 21:00 07/02/24 00:40 10,000 UNIT Artificial Tears 2 drop Q6HP PRN EACHEYE 06/29/24 11:30 Piperacillin Sod/ Tazobactam Sod 100 ml @ 25 mls/hr Q12H IV 06/30/24 10:00 07/03/24 10:13 25 MLS/HR Enteral Nutritional Formula 1,000 ml 30ML/HR GT 06/30/24 15:45 07/02/24 15:57 1,000 ML Amiodarone HCl 200 mg BID PO 06/30/24 22:00 07/03/24 10:13 200 MG Mexiletine HCl 150 mg Q8HR PO 06/30/24 22:00 07/03/24 14:45 150 MG Dexmedetomidine HCl 400 mcg/ Dextrose 100 ml @ 4.465 mls/ hr [id number] IV 07/03/24 02:30 07/03/24 07:41 2.233 MLS/HR Acetaminophen 650 mg Q4HP PRN PO 07/03/24 18:00 UNV Examination GENERAL: Patient under mechanical ventilation, awake, able to follow commands. CARDIOVASCULAR: Paced rhythm, no tachycardia, 3/6 systolic murmur LUNGS: Rhonchi in right middle/right lower lobe ABDOMEN: Soft, nontender nondistended, normal bowel sounds no masses or organomegaly EXTREMITIES: skin Warm, well perfused. no rashes. No clubbing, cyanosis, or edema. Left femoral triple-lumen catheter, left IJ Rajesh catheter,AV fistula right arm NEUROLOGY: laboratory and microbiology Laboratory Tests 07/03/24 04:34 Test 07/03/24 04:34 Range/Units Serum Glucose 99 74-106 mg/dL Microbiology Date/Time Source Procedure Growth Status 06/28/24 11:44 Nose MRSA Screen - Final Complete 06/28/24 08:05 Sputum Gram Stain - Final Complete 06/28/24 08:05 Sputum Respiratory Culture - Final Complete 06/28/24 07:55 Blood Blood Culture - Final Staphylococcus epidermidis Complete Problem List/Assessment/Plan Problem List/Assessment/Plan Neurology: # acute hypoxemic encephalopathy due s/p cardiac arrest Patient currently under mechanical ventilation Currently on precedex and fentanyl. 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 D/pace CAD status post 3 stents -CT angiography unremarkable -[employer] interrogation unremarkable -amiodarone po -mexiletine po Respiratory: Acute hypoxemic respiratory failure due to heart failure reduced ejection fraction exacerbation due to septic/cardiogenic shock Patient intubated, ventilated AC mode , FiO2 of 30% Bilateral infiltrates on chest x-ray possible aspiration pneumonia versus pulmonary edema Bilateral pleural effusion - ABG -FiO2 30%, PEEP 5, TV:500 RR:14 -currently under mechanical ventilation -chest x-rays tomorrow morning Renal: ESRD on hemodialysis Acute kidney injury on ESRD Hyperkalemia Hypoalbuminemia -hemodialysis tomorrow -Rajesh catheter [facility] -Right AV fistula thrombectomy central angioplasty and peripheral venous angioplasty -CT angiography rule out PE -CT head unremarkable Infectious disease: Shock likely septic due to suspected UTI/aspiration pneumonia Leukocytosis Bilateral infiltrates likely due to possible aspiration pneumonia -continue empiric broad-spectrum antibiotic with Zosyn and vanco -Monitor white blood cell count and lactate Endocrine History of Type 2 diabetes Hematology: Severe anemia status post 2 packed red blood cell transfusion Monitor CBC daily Assess need for PRBC transfusion if hemoglobin less than 7. drips: fentanyl precedex Critical care, excluding procedures, time spent: 81 minutes goals of care discussed with the family case discussed with Code status: Full code Plan discussed with: Other (sister) My Orders My Orders Orders - YVONNE DOMINGUEZ RESIDENT Procedure Category Date Status Time Chest Portable XY 07/03/24 Resulted 04:00 Abg W/ Co-Ox RT 07/03/24 Logged 04:00 Acetaminophen Tablet PHA 07/03/24 Logged (Tylenol Tablet) 18:00 Dietary Evaluation Review Comments: 1 Consider TPN per pharmacy if NPO>7 days. 2.TF Nepro@40ml/hr providing 78g pro, 1699 kcal in 24 hrs, if EN/GI accessible, 3.Renal standard diet if pt is off vent and passing a speech eval. offer Nepro PO supplements 240 ml as tolerated if PO intake is less than 50% Expected Outcomes/Goals: Off Vent, maintain wt, less uremic symptoms with his routine HD course. YVONNE DOMINGUEZ RESIDENT Jul 03, 2024 18:26
[2024-07-04] VITALS (96 sets, daily range): BP systolic 92–159; BP diastolic 22–66; PULSE 60–73; RESP 11–22; TEMP 97.3–99; O2SAT 87–100
[2024-07-04 05:26] LABS: Hemoglobin 7.7 g/dL (13.5-17.5)
[2024-07-04 05:28] LABS: Mean Corpuscular Hgb Conc. 32.2 g/dL (32.0-36.0); Mean Corpuscular Volume 96.3 fL (80.0-100.0); Platelet Count (auto) 53 10^3/uL (140-450); Red Blood Cells 2.49 10^6/uL (4.5-5.90); Red Cell Distribution Width 19.4 % (11.8-14.3); White Blood Cell 3.1 10^3/uL (4.4-10.8)
[2024-07-04 05:30] LABS: Band Neutrophils % (manual) 0; Basophils % (manual) 0 (0.0-2.0); Blast Cells 0; Metamyelocytes % 0; Monocytes % (manual) 0 (0-12); Myelocytes % 0; Promyelocytes % 0; Reactive Lymphocytes 0
--- NOTE | 2024-07-04 05:41 | DVH ---
EXAM: XY CHEST PORTABLE HISTORY: pt is intubated. COMPARISON: XY CHEST PORTABLE on DOS: 07/03/24, XY CHEST PORTABLE on DOS: 07/02/24, XY CHEST PORTABLE o n DOS: 07/01/24, XY CHEST PORTABLE on DOS: 06/30/24, XY CHEST PORTABLE on DOS: 06/30/24 TECHNIQUE: Portable AP view of the chest was performed. FINDINGS: Endotracheal tube is re-identified with its tip 4 cm above the elizabeth. OG tube, left IJ central line, right subclavian artery stent, and left chest AICD are re-identified. There is decreased right basil ar infiltrate and/or effusion. No pneumothorax or pulmonary edema. The heart is enlarged. IMPRESSION: 1. Mechanical ventilation with tubes and lines as above. 2. Right basilar infiltrate and effusion, improved. 3. Cardiomegaly.
[2024-07-04 05:51] LABS: Alanine Aminotransferase 13 U/L (7-40); Alkaline Phosphatase 56 U/L (46-116); Anion Gap 10 (5-15); Aspartate Aminotransferase 14 U/L (13-40); Calcium 9.3 mg/dL (8.7-10.4); Carbon Dioxide 28 mmol/L (20-31); Chloride 101 mmol/L (98-107); Potassium 3.8 mmol/L (3.5-5.1); Sodium 139 mmol/L (136-145)
[2024-07-04 05:52] LABS: Albumin 3.1 g/dL (3.2-4.8); Bilirubin, Total 0.8 mg/dL (0.2-1.0); Blood Urea Nitrogen 29 mg/dL (9-23); Glucose 111 mg/dL (74-106); Total Protein 5.4 g/dL (5.7-8.2)
[2024-07-04 05:55] LABS: Eosinophils % (manual) 18 (0-7); Lymphocytes % (manual) 18 (10.0-50.0); Platelet Estimate Decreased
--- NOTE | 2024-07-04 06:19 | DVHPN2 ---
Progress Note - Dictate Date Seen: Jul 04, 2024 Medical Necessity Reason Pt with a Central, PICC or Fol: Yes The following are medically ne: Central Line, Lynne Catheter Reason for lynne catheter: Strict I&O Subjective Seen and examined at the bedside within the ICU. Chart reviewed. vital signs Vital Sign Date Time Temp Pulse Resp B/P (MAP) Pulse Ox O2 Delivery O2 Flow Rate FiO2 07/04/24 05:45 97.7 61 15 145/56 (85) 100 207.9 07/04/24 04:21 30 07/04/24 04:00 Mechanical Ventilator+ Total Intake and Output 07/03/24 07/03/24 07/04/24 15:00 23:00 07:00 Intake Total 316.966 ml 95.720 ml 171.790 ml Output Total 90 ml Balance 316.966 ml 5.720 ml 171.790 ml medications Current Medications Medications Dose Ordered Sig/Colleen Route Start Time Stop Time Status Last Admin Dose Admin Acetaminophen 650 mg Q6HP PRN PO 06/27/24 17:15 07/03/24 14:45 650 MG Bacitracin/ Polymyxin B Sulfate 1 applic TID OP 06/27/24 22:00 07/04/24 05:45 1 APPLIC Vancomycin HCl 0 ml @ 0 mls/hr UD IV 06/28/24 08:00 Dextrose 50 ml UD PRN IV 06/28/24 08:00 06/29/24 11:58 50 ML Pantoprazole Sodium 40 mg DAILY IV 06/29/24 10:00 07/03/24 10:13 40 MG Heparin Sodium/ Dextrose 250 ml @ 13.896 mls/ hr Q18H IV 06/28/24 08:00 UNV Midazolam HCl 50 ml @ 1 mls/hr Q24H IV 06/28/24 10:30 06/29/24 07:21 5 MLS/HR Fentanyl Citrate 250 ml @ 2.5 mls/hr Q24H IV 06/28/24 10:30 07/04/24 04:27 7.5 MLS/HR Diagnostic Test (Pha) 1 strip Q6HR 06/28/24 18:00 07/04/24 05:45 1 STRIP Norepinephrine Bitartrate 32 mg/ Sodium Chloride 250 ml @ 0.938 mls/ hr Q24H IV 06/28/24 14:30 06/28/24 16:00 9.375 MLS/HR Epoetin Eligio-epbx 10,000 unit MWF@2100 SC 06/29/24 21:00 07/03/24 20:59 10,000 UNIT Artificial Tears 2 drop Q6HP PRN EACHEYE 06/29/24 11:30 Piperacillin Sod/ Tazobactam Sod 100 ml @ 25 mls/hr Q12H IV 06/30/24 10:00 07/03/24 20:58 25 MLS/HR Enteral Nutritional Formula 1,000 ml 30ML/HR GT 06/30/24 15:45 07/03/24 19:31 1,000 ML Amiodarone HCl 200 mg BID PO 06/30/24 22:00 07/03/24 20:58 200 MG Mexiletine HCl 150 mg Q8HR PO 06/30/24 22:00 07/04/24 05:55 150 MG Dexmedetomidine HCl 400 mcg/ Dextrose 100 ml @ 4.465 mls/ hr [id number] IV 07/03/24 02:30 07/03/24 07:41 2.233 MLS/HR Acetaminophen 650 mg Q4HP PRN PO 07/03/24 18:00 laboratory and microbiology Laboratory Tests 07/04/24 05:00 Test 07/04/24 05:00 Range/Units Serum Glucose 111 H 74-106 mg/dL Assessment/Plan Assessment/Plan Patient is a 64-year-old gentleman who presented on June 27, 2024 for around a week of flu symptoms and upper left swellings. At the time of evaluation, the patient is being managed in unit. He is intubated and not source of history. Information was obtained by reviewing the chart. Reportedly, the patient had missed hemodialysis quite a few times before presentation as he felt sick. It is reported that he did have flu-like symptoms, eye congestion and diarrhea prior to presentation. While being managed on the floor, patient was found to be nonresponsive and was coded. There is no detailed information about the time of the code. There is question about PEA. The patient was intubated and was brought to the unit. Patient was seen by on-call drive shaft and steering post repairer at that point. At this point, we are called for Cardiology as the patient is known to us from before. There is no report of actual chest pain. It is of note that serial troponin has been negative. There is no available telemetry at the time of the episode. Is also of note that the patient does have BiV-ICD from before. Presently, the patient is admitted with septic shock. Patient was in the hospital around a month ago. And was managed for acute on chronic systolic heart failure, pancytopenia and pleural effusions (for which had pleurocentesis). He should have been on Eliquis as outpatient. Intubated. There are signs of conjunctivitis on bilateral eyes. No JVD. Mucosa is pink and wet. No carotid bruit. Lungs: Scattered rhonchi in the lungs is heard. Cardiac: Regular, systolic murmur 3/6 in the apex is heard. The site for ICD implantation looks clean with no erythema/ecchymosis/tenderness. Abdomen is soft. Bowel sound is positive. Extremities reveal 2+ edema bilaterally. AV fistula in the right upper extremity with thrill was observed. 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 Echocardiogram of April 08, 2024 had reported four-chamber dilatation, ejection fraction of 20%, yiam-eg-mcrcjxev MR/TR and right ventricular systolic pressure of 75 mm Hg Echocardiogram of May 19, 2024 had reported four-chamber dilatation, ejection fraction of 35%, D shaped septum, pulmonary hypertension, mobile interatrial septum, [id number] aortic insufficiency, mild mitral regurgitation, moderate TR and right ventricular systolic pressure of 80 mm Hg WBC: 2.9 - 2.6 - 2.9 - 4.3 - 5.6 - 3.6 - 4.3 - 2.9 - 3.1 Hemoglobin: 7.2 - 7.2 - 8.0 - 5.5 - 8.8 - 8.7 - 7.4 - 7.5 - 7.8 - 7.7 Platelet: 102 - 111 - 106 - 99 - 89 - 69 - 70 - 52 - 53 Creatinine: 8.29 - 8.51 - 8.5 - 8.17 - 8.63 - 6.77 - 4.80 - 3.86 - 4.48 Potassium: 5.2 - 5.7 - 5.1 - 5.2 - 5.9 - 4.5 - 4.3 - 4.2 - 3.3 - 3.8 Lactic acid: 4.7 - 2.7 Troponin (high sensitive) 40 - 41 - 40 BNP: 2509.04 D-Dimer: 4.72 Digoxin: <0.14 Chest x-ray reported: FINDINGS: LUNGS AND PLEURAL SPACES: See below. HEART: Cardiomegaly with moderate congestion. Left cardiac. MEDIASTINUM: Unremarkable. Normal mediastinal contour. BONES/JOINTS: Unremarkable. No acute fracture. OTHER FINDINGS: . . . .. IMPRESSION: Cardiomegaly with moderate congestion. Repeat chest x-ray reported: Medical devices: The ETT ends above the level of elizabeth at the level of clavicular heads. The enteric tube extends to the stomach. Multi lead left upper chest wall AICD with leads extending to the cardiac chambers. Cardiomediastinal: The heart is moderately enlarged. Pulmonary vasculature is prominent. Atherosclerotic calcification of the aortic arch noted. Lungs: There is interval enlargement of now moderate-sized right pleural effusion and interval development of patchy consolidation in the right middle and left upper lung zone. Small opacities are noted in the left lung base. Diffuse bilateral interstitial opacities are noted. No pneumothorax. Bones/soft tissues: No acute abnormality is noted. Right subclavian vascular stents noted. IMPRESSION: 1. Worsening CHF with moderate right pleural effusion , interval development of extensive bilateral interstitial opacities and large patchy multifocal bilateral consolidations that may represent edema or pneumonia. Recommend clinical and biochemical correlation. Repeat chest xry reported: IMPRESSION: 1. Right basilar atelectasis or pneumonia. 2. Cardiomegaly with mild congestion. Repeat chest xry reported: IMPRESSION: 1. Right basilar atelectasis or pneumonia. Small bilateral pleural effusions. 2. Cardiomegaly with mild congestion. 3. Endotracheal tube now projects 6 cm above level the elizabeth in appropriate position. Repeat chest xry reported: IMPRESSION: 1. Cardiomegaly with pulmonary congestion and edema. Superimposed pneumonia cannot be excluded. 2. Right pleural effusion. Repeat chest xry reported: FINDINGS: VERTEBRAE: Unremarkable. No acute fracture. Normal alignment. No instability. DISC SPACES: No acute findings. No significant narrowing. SOFT TISSUES: Unremarkable. HEART: Left cardiac. Mild congestive heart failure. TUBES, LINES AND DEVICES: Enteric tube tip in the stomach. The endotracheal tube (ETT) is in satisfactory position. OTHER FINDINGS: . ... IMPRESSION: Mild congestive heart failure. Repeat chest xry revealed: IMPRESSION: Cardiomegaly with moderate congestion. Repeat chest xry revealed IMPRESSION: 1. Mechanical ventilation with tubes and lines as above.2. Right basilar infiltrate and effusion, improved.3. Cardiomegaly. Upper ext (right) arterial duplex reported: IMPRESSION: 1. The right upper extremity brachial-cephalic AVF is thrombosed. 2. The right axillary stent is thrombosed. 3. The arteries of the right upper extremity including subclavian, axillary, brachial, radial and ulnar arteries are patent. CTA of lungs revealed: IMPRESSION: 1. No pulmonary embolism. 2. Large right and small left pleural effusion with associated bilateral atelectasis and consolidation. Patchy ground-glass opacities could represent pulmonary edema or an infectious / inflammatory process. Mediastinal lymphadenopathy similar to prior. Clinical correlation and continued follow-up is recommended. Overall appearance is worse compared to prior exam. CT of head reported: 1. No acute intracranial pathology. Cortical atrophy greater on the left. EKG revealed paced rhythm Telemetry revealed paced rhythm (it is of note that telemetry rhythm at the time of the code is not available to revealed) Echocardiogram reported: limited study. lvef 20% by visual estimate. postop septum. septum flattening noted. RV enlarged with dysfunction. biatrial enlargement. valves not assessed Medtronic ICD interrogation revealed: Remaining longevity of battery: 3.8 years; DDDR: 60/130; Pacing impedance: A 380 /RV 323/LV 304 Ohms; Shock impedance: RV 29 Ohms; Capture threshold: Atrial 0.5/RV 0.875 volts at 0.4 milliseconds; Program sensitivity: Atrial 0.3/RV 0.3 mV; Episodes: VT/VF: 1 resulting in shock; Changes performed: VTE detection interval was changed from 270 millisecond to 320 millisecond/VT detection interval was changed from 330 millisecond to 400 milliseconds Patient is a 64-year-old gentleman who presented with flu-like symptoms, but later coded in the floor. No tele rhythm of the time of the code was available to review (at first). Reportedly there was PA. Stable serial high sensitive troponin is against acute coronary syndrome. Patient does have baseline history of heart failure and pulmonary hypertension. He also has Bi V ICD (interrogation revealed episode of v-fib/v-tach resulting in Defibrillation). Does have baseline history of noncompliance to medication/hemodialysis. Does have baseline history of pancytopenia and is found to have significant anemia. With respiratory failure and on vent support. Case discussed with Electrophysiology (Dr Tamayo). Acute arrest Rule out PA Questionable encephalopathy, anoxic versus toxic? Recent URI Septic shock s/p Defibrillation secondary to V-fib/Vtach Encephalopathy Baseline pulmonary hypertension Baseline systolic heart failure Status post Bi V ICD End-stage renal disease, Noncompliant with medication, followups and hemodialysis Pancytopenia History of GI bleeding Right pleural effusion s/p Right AV fistula thrombectomy central angioplasty and peripheral venous angioplasty by Vascular surgeon Cardiac suggestion for management: Manage in ICU telemetry Aggressive hemodialysis Follow-up electrolytes and kidney function tests and correct abnormalities For now, continue aspirin On Amiodarone and Mexiletine Further evaluation and management depends on the above and clinical course Further evaluation and management also depends on the regaining of high level of consciousness/brain function If the patient regains higher brain function, may proceed with ischemic workup. Hematology evaluation for pancytopenia suggested Pulmonary follow-up A total of 75 minutes was spent reviewing the patient record, examining the patient, making a diagnostic and therapeutic plan, discussing this plan with medical personnel, following up on diagnostic studies and following the patient for clinical stability excluding any and all procedures. At least 50% of this time was spent in direct, [id number] contact. Thank you for allowing me to participate in this patient's care. Further recommendations will depend on patient's clinical course. Please do not hesitate to contact me if you have any questions or concerns. This medical document was created using electronic medical record system with [employer] dictation system. Although this document has been carefully reviewed, there may still be some phonetic and typographical errors. These areas are purely typographical due to the imperfection of the software programs, and do not reflect any compromise in the patient's medical care. Dietary Evaluation Review Comments: 1 Consider TPN per pharmacy if NPO>7 days. 2.TF Nepro@40ml/hr providing 78g pro, 1699 kcal in 24 hrs, if EN/GI accessible, 3.Renal standard diet if pt is off vent and passing a speech eval. offer Nepro PO supplements 240 ml as tolerated if PO intake is less than 50% Expected Outcomes/Goals: Off Vent, maintain wt, less uremic symptoms with his routine HD course. Plan discussed with: Other (Primary RN) WILL MONTANEZ Jul 04, 2024 06:19
[2024-07-04] MEDS: SODIUM CHL 0.9% 1000 ML BAG XX ONE (07:00)
[2024-07-04 07:28] LABS: Base Excess -0.3 mmol/L (-2.0-3.0)
--- NOTE | 2024-07-04 09:24 | DVHPN2 ---
Progress Note Date Seen: Jul 04, 2024 Medical Necessity Reason Pt with a Central, PICC or Fol: Yes The following are medically ne: Central Line, Lynne Catheter Reason for lynne catheter: Strict I&O Subjective Review of Systems: RESPIRATORY:Abnormal Other Systems: Patient seen and examined by myself today in follow-up, patient remained intubated on ventilator Patient examined hemodialysis, blood pressure stable Objective vital signs Vital Sign Date Time Temp Pulse Resp B/P (MAP) Pulse Ox O2 Delivery O2 Flow Rate FiO2 07/04/24 08:17 60 18 135/51 (79) 100 30 07/04/24 06:45 97.9 208.2 07/04/24 06:00 Mechanical Ventilator+ Total Intake and Output 07/03/24 07/03/24 07/04/24 15:00 23:00 07:00 Intake Total 316.966 ml 95.720 ml 563.220 ml Output Total 90 ml 50 ml Balance 316.966 ml 5.720 ml 513.220 ml medications Current Medications Medications Dose Ordered Sig/Colleen Route Start Time Stop Time Status Last Admin Dose Admin Acetaminophen 650 mg Q6HP PRN PO 06/27/24 17:15 07/03/24 14:45 650 MG Bacitracin/ Polymyxin B Sulfate 1 applic TID OP 06/27/24 22:00 07/04/24 05:45 1 APPLIC Vancomycin HCl 0 ml @ 0 mls/hr UD IV 06/28/24 08:00 Dextrose 50 ml UD PRN IV 06/28/24 08:00 06/29/24 11:58 50 ML Pantoprazole Sodium 40 mg DAILY IV 06/29/24 10:00 07/03/24 10:13 40 MG Heparin Sodium/ Dextrose 250 ml @ 13.896 mls/ hr Q18H IV 06/28/24 08:00 UNV Midazolam HCl 50 ml @ 1 mls/hr Q24H IV 06/28/24 10:30 06/29/24 07:21 5 MLS/HR Fentanyl Citrate 250 ml @ 2.5 mls/hr Q24H IV 06/28/24 10:30 07/04/24 04:27 7.5 MLS/HR Diagnostic Test (Pha) 1 strip Q6HR 06/28/24 18:00 07/04/24 05:45 1 STRIP Norepinephrine Bitartrate 32 mg/ Sodium Chloride 250 ml @ 0.938 mls/ hr Q24H IV 06/28/24 14:30 06/28/24 16:00 9.375 MLS/HR Epoetin Eligio-epbx 10,000 unit MWF@2100 SC 06/29/24 21:00 07/03/24 20:59 10,000 UNIT Artificial Tears 2 drop Q6HP PRN EACHEYE 06/29/24 11:30 Piperacillin Sod/ Tazobactam Sod 100 ml @ 25 mls/hr Q12H IV 06/30/24 10:00 07/03/24 20:58 25 MLS/HR Enteral Nutritional Formula 1,000 ml 30ML/HR GT 06/30/24 15:45 07/03/24 19:31 1,000 ML Amiodarone HCl 200 mg BID PO 06/30/24 22:00 07/03/24 20:58 200 MG Mexiletine HCl 150 mg Q8HR PO 06/30/24 22:00 07/04/24 05:55 150 MG Dexmedetomidine HCl 400 mcg/ Dextrose 100 ml @ 4.465 mls/ hr [id number] IV 07/03/24 02:30 07/03/24 07:41 2.233 MLS/HR Acetaminophen 650 mg Q4HP PRN PO 07/03/24 18:00 Examination: LUNGS:Normal, CVS:Normal, MSK:Normal laboratory and microbiology Laboratory Tests 07/04/24 05:00 Test 07/04/24 05:00 Range/Units Serum Glucose 111 H 74-106 mg/dL Microbiology Date/Time Source Procedure Growth Status 06/28/24 11:44 Nose MRSA Screen - Final Complete 06/28/24 08:05 Sputum Gram Stain - Final Complete 06/28/24 08:05 Sputum Respiratory Culture - Final Complete 06/28/24 07:55 Blood Blood Culture - Final Staphylococcus epidermidis Complete Problem List/Assessment/Plan Problem List/Assessment/Plan ESRD on dialysis Acute respiratory failure, patient intubated on ventilator Hyperkalemia s/p cardiac arrest thrombosed AVF status post angioplasty and fistulogram by vascular surgery 07/01 CHF exacerbation Atrial fibrillation HTN Anemia chronic kidney disease Hypokalemia Recommendation Continue with UF to 3 L as tolerated Epogen 75284 IV post hemodialysis Fluid restrictions KCL replacement Blood pressure control We will continue to follow up Plan discussed with: Other (Nephrology) My Orders My Orders Orders - BRITTANY AIKEN MD Procedure Category Date Status Time Hemodialysis Orders ORDERS 07/04/24 Transmitted 07:00 Epoetin Eligio-Epbx PHA 07/04/24 In Process (Retacrit) 21:00 Dietary Evaluation Review Comments: 1 Consider TPN per pharmacy if NPO>7 days. 2.TF Nepro@40ml/hr providing 78g pro, 1699 kcal in 24 hrs, if EN/GI accessible, 3.Renal standard diet if pt is off vent and passing a speech eval. offer Nepro PO supplements 240 ml as tolerated if PO intake is less than 50% Expected Outcomes/Goals: Off Vent, maintain wt, less uremic symptoms with his routine HD course. BRITTANY AIKEN MD Jul 04, 2024 09:24
[2024-07-04] MEDS ORDERED: ALBUMIN 25% 100 ML IV ONE ×2 (14:00)
--- NOTE | 2024-07-04 14:42 | DVHPN2 ---
Subjective The patient is seen and examined at bedside. The patient remained intubated. Alert , awake. On CPAP trial. Reviewed: Care Plan, H&P, Labs, Medications, Previous Orders, Radiology Changes from previous H/P or p: No Changes General: Per HPI Objective Vitals Vital Signs Date Time Temp Pulse Resp B/P (MAP) Pulse Ox O2 Delivery O2 Flow Rate FiO2 07/04/24 13:56 60 14 109/41 (63) 100 30 07/04/24 13:30 99.0 210.2 07/04/24 06:00 Mechanical Ventilator+ Intake/Output Intake and Output 07/04/24 07:00 Intake Total 975.906 ml Output Total 140 ml Balance 835.906 ml IV Total 605.906 ml Tube Feeding 310 ml Other 60 ml Output Urine Total 140 ml # Bowel Movements 1 General Appearance: Alert, No acute distress HEENT: Atraumatic, PERRLA, EOMI, Mucous membr. moist/pink Neck: Supple Lungs: Clear to auscultation, Normal air movement Cardiovascular: Regular rate, Normal S1, Normal S2, No murmurs, Gallops, Rubs Abdomen: Normal bowel sounds, Soft, No tenderness Neuro: Cranial nerves 3-12 NL Psych/Mental Status: Mental status NL Medications Current Medications Medications Dose Ordered Sig/Colleen Route Start Time Stop Time Status Last Admin Dose Admin Bacitracin/ Polymyxin B Sulfate 1 applic TID OP 06/27/24 22:00 07/04/24 05:45 1 APPLIC Vancomycin HCl 0 ml @ 0 mls/hr UD IV 06/28/24 08:00 Dextrose 50 ml UD PRN IV 06/28/24 08:00 06/29/24 11:58 50 ML Pantoprazole Sodium 40 mg DAILY IV 06/29/24 10:00 07/04/24 10:13 40 MG Heparin Sodium/ Dextrose 250 ml @ 13.896 mls/ hr Q18H IV 06/28/24 08:00 UNV Midazolam HCl 50 ml @ 1 mls/hr Q24H IV 06/28/24 10:30 06/29/24 07:21 5 MLS/HR Fentanyl Citrate 250 ml @ 2.5 mls/hr Q24H IV 06/28/24 10:30 07/04/24 04:27 7.5 MLS/HR Diagnostic Test (Pha) 1 strip Q6HR 06/28/24 18:00 07/04/24 05:45 1 STRIP Norepinephrine Bitartrate 32 mg/ Sodium Chloride 250 ml @ 0.938 mls/ hr Q24H IV 06/28/24 14:30 06/28/24 16:00 9.375 MLS/HR Epoetin Eligio-epbx 10,000 unit MWF@2100 SC 06/29/24 21:00 07/03/24 20:59 10,000 UNIT Artificial Tears 2 drop Q6HP PRN EACHEYE 06/29/24 11:30 Piperacillin Sod/ Tazobactam Sod 100 ml @ 25 mls/hr Q12H IV 06/30/24 10:00 07/04/24 10:12 25 MLS/HR Enteral Nutritional Formula 1,000 ml 30ML/HR GT 06/30/24 15:45 07/03/24 19:31 1,000 ML Amiodarone HCl 200 mg BID PO 06/30/24 22:00 07/04/24 10:14 200 MG Mexiletine HCl 150 mg Q8HR PO 06/30/24 22:00 07/04/24 05:55 150 MG Dexmedetomidine HCl 400 mcg/ Dextrose 100 ml @ 4.465 mls/ hr [id number] IV 07/03/24 02:30 07/04/24 10:12 2.233 MLS/HR Acetaminophen 650 mg Q4HP PRN PO 07/03/24 18:00 Laboratory Results Laboratory Tests 07/04/24 05:00 Chemistry Test 07/04/24 05:00 Albumin 3.1 g/dL (3.2-4.8) L Calcium Level 9.3 mg/dL (8.7-10.4) Total Protein 5.4 g/dL (5.7-8.2) L LFT Test 07/04/24 05:00 Alanine Aminotransferase (ALT) 13 U/L (7-40) Alkaline Phosphatase 56 U/L (46-116) Aspartate Amino Transferase (AST) 14 U/L (13-40) Total Bilirubin 0.8 mg/dL (0.2-1.0) Blood Gas Results Test 07/04/24 07:23 Arterial Blood pH 7.401 (7.350-7.450) FiO2 % 30.0 Microbiology Microbiology Date/Time Source Procedure Growth Status 06/28/24 11:44 Nose MRSA Screen - Final Complete 06/28/24 08:05 Sputum Gram Stain - Final Complete 06/28/24 08:05 Sputum Respiratory Culture - Final Complete 06/28/24 07:55 Blood Blood Culture - Final Staphylococcus epidermidis Complete Labs and/or images reviewed: Labs reviewed by me Assessment/Plan Assessment/Plan # acute hypoxemic encephalopathy due s/p cardiac arrest Patient currently under mechanical ventilation Currently on precedex and fentanyl. CPAP trial tomorrow after HD Hemodialysis tomorrow Rajesh catheter for hemodialysis, ultrasound-guided per today [facility] Right AV fistula thrombectomy central angioplasty and peripheral venous angioplasty performed Vascular team on board Cardiovascular Acute on chronic systolic heart failure NYHA III-IV Cardiogenic shock due to VT/VF s/p cardiac arrest History of nonischemic cardiomyopathy History of myocardial infarction Severe pulmonary hypertension RVSP 75 mmHg Atrial fibrillation HFrEF SP AICD/QUAIL FARMER D/pace CAD status post 3 stents -CT angiography unremarkable -[employer]tr[employer] interrogation unremarkable -amiodarone po -mexiletine po Respiratory: Acute hypoxemic respiratory failure due to heart failure reduced ejection fraction exacerbation due to septic/cardiogenic shock Patient intubated, ventilated AC mode , FiO2 of 30% Bilateral infiltrates on chest x-ray possible aspiration pneumonia versus pulmonary edema Bilateral pleural effusion - ABG -FiO2 30%, PEEP 5, TV:500 RR:14 -currently under mechanical ventilation -chest x-rays tomorrow morning Renal: ESRD on hemodialysis Acute kidney injury on ESRD Hyperkalemia Hypoalbuminemia -hemodialysis tomorrow -Rajesh catheter [facility] -Right AV fistula thrombectomy central angioplasty and peripheral venous angioplasty -CT angiography rule out PE -CT head unremarkable Infectious disease: Shock likely septic due to suspected UTI/aspiration pneumonia Leukocytosis Bilateral infiltrates likely due to possible aspiration pneumonia -continue empiric broad-spectrum antibiotic with Zosyn and vanco -Monitor white blood cell count and lactate Endocrine History of Type 2 diabetes Hematology: Severe anemia status post 2 packed red blood cell transfusion Monitor CBC daily Assess need for PRBC transfusion if hemoglobin less than 7. drips: fentanyl precedex Continue current management. Hopefully can be extubate soon. Critical care, excluding procedures, time spent: 36 minutes Plan discussed with: Other (RN) Date of Service: Jul 04, 2024 Billing Provider: CHINA RODRIGUEZ MD Common Visit Codes: [id number] INP/OBS CARE(HIGH) CHINA RODRIGUEZ MD Jul 04, 2024 14:42
[2024-07-04] MEDS ORDERED: ALBUMIN 25% 100 ML IV PRN (15:00)
--- NOTE | 2024-07-04 20:10 | DVHPN2 ---
Progress Note - Dictate Date Seen: Jul 04, 2024 Medical Necessity Reason Pt with a Central, PICC or Fol: Yes The following are medically ne: Central Line, Lynne Catheter Reason for lynne catheter: Strict I&O Subjective Patient seen and examined at bedside. intubated on mechanical ventilator. Overnight events reviewed. vital signs Vital Sign Date Time Temp Pulse Resp B/P (MAP) Pulse Ox O2 Delivery O2 Flow Rate FiO2 07/04/24 20:02 62 14 106/37 (60) 100 30 07/04/24 18:15 98.1 208.6 07/04/24 18:00 Mechanical Ventilator+ Total Intake and Output 07/03/24 07/03/24 07/04/24 15:00 23:00 07:00 Intake Total 316.966 ml 95.720 ml 563.220 ml Output Total 90 ml 50 ml Balance 316.966 ml 5.720 ml 513.220 ml medications Current Medications Medications Dose Ordered Sig/Colleen Route Start Time Stop Time Status Last Admin Dose Admin Bacitracin/ Polymyxin B Sulfate 1 applic TID OP 06/27/24 22:00 07/04/24 16:27 1 APPLIC Vancomycin HCl 0 ml @ 0 mls/hr UD IV 06/28/24 08:00 Dextrose 50 ml UD PRN IV 06/28/24 08:00 06/29/24 11:58 50 ML Pantoprazole Sodium 40 mg DAILY IV 06/29/24 10:00 07/04/24 10:13 40 MG Heparin Sodium/ Dextrose 250 ml @ 13.896 mls/ hr Q18H IV 06/28/24 08:00 UNV Midazolam HCl 50 ml @ 1 mls/hr Q24H IV 06/28/24 10:30 06/29/24 07:21 5 MLS/HR Fentanyl Citrate 250 ml @ 2.5 mls/hr Q24H IV 06/28/24 10:30 07/04/24 04:27 7.5 MLS/HR Diagnostic Test (Pha) 1 strip Q6HR 06/28/24 18:00 07/04/24 18:28 1 STRIP Norepinephrine Bitartrate 32 mg/ Sodium Chloride 250 ml @ 0.938 mls/ hr Q24H IV 06/28/24 14:30 06/28/24 16:00 9.375 MLS/HR Epoetin Eligio-epbx 10,000 unit MWF@2100 SC 06/29/24 21:00 07/03/24 20:59 10,000 UNIT Artificial Tears 2 drop Q6HP PRN EACHEYE 06/29/24 11:30 Piperacillin Sod/ Tazobactam Sod 100 ml @ 25 mls/hr Q12H IV 06/30/24 10:00 07/04/24 10:12 25 MLS/HR Enteral Nutritional Formula 1,000 ml 30ML/HR GT 06/30/24 15:45 07/03/24 19:31 1,000 ML Amiodarone HCl 200 mg BID PO 06/30/24 22:00 07/04/24 10:14 200 MG Mexiletine HCl 150 mg Q8HR PO 06/30/24 22:00 07/04/24 16:19 150 MG Dexmedetomidine HCl 400 mcg/ Dextrose 100 ml @ 4.465 mls/ hr [id number] IV 07/03/24 02:30 07/04/24 10:12 2.233 MLS/HR Acetaminophen 650 mg Q4HP PRN PO 07/03/24 18:00 objective Gen.: Patient lying in bed in medical ICU. Intubated on mechanical ventilator. Head: Normocephalic, atraumatic. Eyes: PERRLA. Ears: Normal external anatomy. Throat: Endotracheal tube and orogastric tube in place. Neck: Supple, trachea midline. Chest: Transmitted breath sounds bilaterally. Decreased air entry bilaterally. No wheezing. Bibasilar crackles. Cardiovascular: Positive S1, positive S2. Regular rate and rhythm. Abdomen: Positive bowel sounds in all 4 quadrants. Soft, nontender, nondistended. : Lynne in place. Normal external genitalia. Rectal: Deferred. Skin: Warm, dry. Intact. Extremities: 2+ radial pulses bilaterally. No lower extremity edema. Neuro: Off sedation laboratory and microbiology Laboratory Tests 07/04/24 05:00 Test 07/04/24 05:00 Range/Units Serum Glucose 111 H 74-106 mg/dL Assessment/Plan Impression: s/p code Acute hypoxic respiratory failure On mechanical ventilator Atelectasis End-stage renal disease, on hemodialysis Pleural effusions Plan: S/p intubation, on mechanical ventilator On A/C mode with RR 14, VT 500, PEEP 5, FiO2 30% Titrate FIO2 to keep O2 saturation above 90%. VAP bundle. Off sedation On Precedex Fentanyl for analgesia Hemodialysis today Follow Nephrology recs Tube feeds for nutritional support Off Levophed - monitor hemodynamics Monitor renal function Monitor electrolytes. Supplement as necessary. Monitor ins and outs. HD per Nephrology SBT/KSENIA CPAP today. DVT prophylaxis. Prognosis: Poor given patient's multiple co-morbidities. Condition: Critical Rest of plan per hospitalist and other consultants. A total of 35 minutes of critical care time was spent reviewing the patient record, examining the patient, making a diagnostic and therapeutic plan, discussing this plan with the medical personnel, following up on diagnostic studies and following the patient for clinical stability excluding any and all procedures. At least 50% of this time was spent in direct, [id number] contact. Thank you for allowing me to participate in this patient's care. Further recommendations will depend on the patient's clinical course. Please do not hesitate to contact me if you have any questions or concerns. This medical document was created using an electronic medical record system with [employer] dictation system. Although these documentations are being carefully reviewed, there may still be some phonetic and typographical changes. The errors are purely typographical, due to imperfection on the software program, and do not reflect any compromise in the patient's medical care. Dietary Evaluation Review Comments: 1 Consider TPN per pharmacy if NPO>7 days. 2.TF Nepro@40ml/hr providing 78g pro, 1699 kcal in 24 hrs, if EN/GI accessible, 3.Renal standard diet if pt is off vent and passing a speech eval. offer Nepro PO supplements 240 ml as tolerated if PO intake is less than 50% Expected Outcomes/Goals: Off Vent, maintain wt, less uremic symptoms with his routine HD course. Plan discussed with: Other (MITCHEL Rod) Critical Care Time(min): 35 DEVAUGHN LEONG MD Jul 04, 2024 20:10
[2024-07-04] MEDS: EPOETIN ALFA-EPBX 10,000 UNIT/1ML VIAL SC ONE (20:59)
[2024-07-05] VITALS (98 sets, daily range): BP systolic 94–152; BP diastolic 31–77; PULSE 60–97; RESP 11–32; TEMP 98.3–99.1; O2SAT 67–100
--- NOTE | 2024-07-05 04:59 | DVHPN2 ---
Progress Note - Dictate Date Seen: Jul 05, 2024 Medical Necessity Reason Pt with a Central, PICC or Fol: Yes The following are medically ne: Central Line, Lynne Catheter Reason for lynne catheter: Strict I&O Subjective Seen and examined at the bedside within the ICU. Chart reviewed. vital signs Vital Sign Date Time Temp Pulse Resp B/P (MAP) Pulse Ox O2 Delivery O2 Flow Rate FiO2 07/05/24 04:00 30 07/05/24 04:00 61 07/05/24 04:00 16 95/34 (54) 100 07/05/24 04:00 Mechanical Ventilator+ 07/05/24 03:15 99.0 210.2 Total Intake and Output 07/04/24 07/04/24 07/05/24 15:00 23:00 07:00 Intake Total 144.058 ml 100.454 ml 195.722 ml Output Total 50 ml Balance 144.058 ml 50.454 ml 195.722 ml medications Current Medications Medications Dose Ordered Sig/Colleen Route Start Time Stop Time Status Last Admin Dose Admin Bacitracin/ Polymyxin B Sulfate 1 applic TID OP 06/27/24 22:00 07/04/24 21:00 1 APPLIC Vancomycin HCl 0 ml @ 0 mls/hr UD IV 06/28/24 08:00 Dextrose 50 ml UD PRN IV 06/28/24 08:00 06/29/24 11:58 50 ML Pantoprazole Sodium 40 mg DAILY IV 06/29/24 10:00 07/04/24 10:13 40 MG Heparin Sodium/ Dextrose 250 ml @ 13.896 mls/ hr Q18H IV 06/28/24 08:00 UNV Midazolam HCl 50 ml @ 1 mls/hr Q24H IV 06/28/24 10:30 06/29/24 07:21 5 MLS/HR Fentanyl Citrate 250 ml @ 2.5 mls/hr Q24H IV 06/28/24 10:30 07/04/24 04:27 7.5 MLS/HR Diagnostic Test (Pha) 1 strip Q6HR 06/28/24 18:00 07/04/24 18:28 1 STRIP Norepinephrine Bitartrate 32 mg/ Sodium Chloride 250 ml @ 0.938 mls/ hr Q24H IV 06/28/24 14:30 06/28/24 16:00 9.375 MLS/HR Epoetin Eligio-epbx 10,000 unit MWF@2100 SC 06/29/24 21:00 07/03/24 20:59 10,000 UNIT Artificial Tears 2 drop Q6HP PRN EACHEYE 06/29/24 11:30 Piperacillin Sod/ Tazobactam Sod 100 ml @ 25 mls/hr Q12H IV 06/30/24 10:00 07/04/24 20:58 25 MLS/HR Enteral Nutritional Formula 1,000 ml 30ML/HR GT 06/30/24 15:45 07/05/24 02:42 1,000 ML Amiodarone HCl 200 mg BID PO 06/30/24 22:00 07/04/24 20:59 200 MG Mexiletine HCl 150 mg Q8HR PO 06/30/24 22:00 07/04/24 20:58 150 MG Dexmedetomidine HCl 400 mcg/ Dextrose 100 ml @ 4.465 mls/ hr [id number] IV 07/03/24 02:30 07/04/24 10:12 2.233 MLS/HR Acetaminophen 650 mg Q4HP PRN PO 07/03/24 18:00 laboratory and microbiology Laboratory Tests 07/04/24 05:00 Test 07/04/24 05:00 Range/Units Serum Glucose 111 H 74-106 mg/dL Assessment/Plan Assessment/Plan Patient is a 64-year-old gentleman who presented on June 27, 2024 for around a week of flu symptoms and upper left swellings. At the time of evaluation, the patient is being managed in unit. He is intubated and not source of history. Information was obtained by reviewing the chart. Reportedly, the patient had missed hemodialysis quite a few times before presentation as he felt sick. It is reported that he did have flu-like symptoms, eye congestion and diarrhea prior to presentation. While being managed on the floor, patient was found to be nonresponsive and was coded. There is no detailed information about the time of the code. There is question about PEA. The patient was intubated and was brought to the unit. Patient was seen by on-call teleradiologist at that point. At this point, we are called for Cardiology as the patient is known to us from before. There is no report of actual chest pain. It is of note that serial troponin has been negative. There is no available telemetry at the time of the episode. Is also of note that the patient does have BiV-ICD from before. Presently, the patient is admitted with septic shock. Patient was in the hospital around a month ago. And was managed for acute on chronic systolic heart failure, pancytopenia and pleural effusions (for which had pleurocentesis). He should have been on Eliquis as outpatient. Intubated. There are signs of conjunctivitis on bilateral eyes. No JVD. Mucosa is pink and wet. No carotid bruit. Lungs: Scattered rhonchi in the lungs is heard. Cardiac: Regular, systolic murmur 3/6 in the apex is heard. The site for ICD implantation looks clean with no erythema/ecchymosis/tenderness. Abdomen is soft. Bowel sound is positive. Extremities reveal 2+ edema bilaterally. AV fistula in the right upper extremity with thrill was observed. 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 Echocardiogram of April 08, 2024 had reported four-chamber dilatation, ejection fraction of 20%, osww-as-systseey MR/TR and right ventricular systolic pressure of 75 mm Hg Echocardiogram of May 19, 2024 had reported four-chamber dilatation, ejection fraction of 35%, D shaped septum, pulmonary hypertension, mobile interatrial septum, [id number] aortic insufficiency, mild mitral regurgitation, moderate TR and right ventricular systolic pressure of 80 mm Hg WBC: 2.9 - 2.6 - 2.9 - 4.3 - 5.6 - 3.6 - 4.3 - 2.9 - 3.1 Hemoglobin: 7.2 - 7.2 - 8.0 - 5.5 - 8.8 - 8.7 - 7.4 - 7.5 - 7.8 - 7.7 Platelet: 102 - 111 - 106 - 99 - 89 - 69 - 70 - 52 - 53 Creatinine: 8.29 - 8.51 - 8.5 - 8.17 - 8.63 - 6.77 - 4.80 - 3.86 - 4.48 Potassium: 5.2 - 5.7 - 5.1 - 5.2 - 5.9 - 4.5 - 4.3 - 4.2 - 3.3 - 3.8 Lactic acid: 4.7 - 2.7 Troponin (high sensitive) 40 - 41 - 40 BNP: 2509.04 D-Dimer: 4.72 Digoxin: <0.14 Chest x-ray reported: FINDINGS: LUNGS AND PLEURAL SPACES: See below. HEART: Cardiomegaly with moderate congestion. Left cardiac. MEDIASTINUM: Unremarkable. Normal mediastinal contour. BONES/JOINTS: Unremarkable. No acute fracture. OTHER FINDINGS: . . . .. IMPRESSION: Cardiomegaly with moderate congestion. Repeat chest x-ray reported: Medical devices: The ETT ends above the level of elizabeth at the level of clavicular heads. The enteric tube extends to the stomach. Multi lead left upper chest wall AICD with leads extending to the cardiac chambers. Cardiomediastinal: The heart is moderately enlarged. Pulmonary vasculature is prominent. Atherosclerotic calcification of the aortic arch noted. Lungs: There is interval enlargement of now moderate-sized right pleural effusion and interval development of patchy consolidation in the right middle and left upper lung zone. Small opacities are noted in the left lung base. Diffuse bilateral interstitial opacities are noted. No pneumothorax. Bones/soft tissues: No acute abnormality is noted. Right subclavian vascular stents noted. IMPRESSION: 1. Worsening CHF with moderate right pleural effusion , interval development of extensive bilateral interstitial opacities and large patchy multifocal bilateral consolidations that may represent edema or pneumonia. Recommend clinical and biochemical correlation. Repeat chest xry reported: IMPRESSION: 1. Right basilar atelectasis or pneumonia. 2. Cardiomegaly with mild congestion. Repeat chest xry reported: IMPRESSION: 1. Right basilar atelectasis or pneumonia. Small bilateral pleural effusions. 2. Cardiomegaly with mild congestion. 3. Endotracheal tube now projects 6 cm above level the elizabeth in appropriate position. Repeat chest xry reported: IMPRESSION: 1. Cardiomegaly with pulmonary congestion and edema. Superimposed pneumonia cannot be excluded. 2. Right pleural effusion. Repeat chest xry reported: FINDINGS: VERTEBRAE: Unremarkable. No acute fracture. Normal alignment. No instability. DISC SPACES: No acute findings. No significant narrowing. SOFT TISSUES: Unremarkable. HEART: Left cardiac. Mild congestive heart failure. TUBES, LINES AND DEVICES: Enteric tube tip in the stomach. The endotracheal tube (ETT) is in satisfactory position. OTHER FINDINGS: . ... IMPRESSION: Mild congestive heart failure. Repeat chest xry revealed: IMPRESSION: Cardiomegaly with moderate congestion. Repeat chest xry revealed IMPRESSION: 1. Mechanical ventilation with tubes and lines as above.2. Right basilar infiltrate and effusion, improved.3. Cardiomegaly. Upper ext (right) arterial duplex reported: IMPRESSION: 1. The right upper extremity brachial-cephalic AVF is thrombosed. 2. The right axillary stent is thrombosed. 3. The arteries of the right upper extremity including subclavian, axillary, brachial, radial and ulnar arteries are patent. CTA of lungs revealed: IMPRESSION: 1. No pulmonary embolism. 2. Large right and small left pleural effusion with associated bilateral atelectasis and consolidation. Patchy ground-glass opacities could represent pulmonary edema or an infectious / inflammatory process. Mediastinal lymphadenopathy similar to prior. Clinical correlation and continued follow-up is recommended. Overall appearance is worse compared to prior exam. CT of head reported: 1. No acute intracranial pathology. Cortical atrophy greater on the left. EKG revealed paced rhythm Telemetry revealed paced rhythm (it is of note that telemetry rhythm at the time of the code is not available to revealed) Echocardiogram reported: limited study. lvef 20% by visual estimate. postop septum. septum flattening noted. RV enlarged with dysfunction. biatrial enlargement. valves not assessed Medtronic ICD interrogation revealed: Remaining longevity of battery: 3.8 years; DDDR: 60/130; Pacing impedance: A 380 /RV 323/LV 304 Ohms; Shock impedance: RV 29 Ohms; Capture threshold: Atrial 0.5/RV 0.875 volts at 0.4 milliseconds; Program sensitivity: Atrial 0.3/RV 0.3 mV; Episodes: VT/VF: 1 resulting in shock; Changes performed: VTE detection interval was changed from 270 millisecond to 320 millisecond/VT detection interval was changed from 330 millisecond to 400 milliseconds Patient is a 64-year-old gentleman who presented with flu-like symptoms, but later coded in the floor. No tele rhythm of the time of the code was available to review (at first). Reportedly there was PA. Stable serial high sensitive troponin is against acute coronary syndrome. Patient does have baseline history of heart failure and pulmonary hypertension. He also has Bi V ICD (interrogation revealed episode of v-fib/v-tach resulting in Defibrillation). Does have baseline history of noncompliance to medication/hemodialysis. Does have baseline history of pancytopenia and is found to have significant anemia. With respiratory failure and on vent support. Case discussed with Electrophysiology (Dr Tamayo). Acute arrest Rule out PA Questionable encephalopathy, anoxic versus toxic? Recent URI Septic shock s/p Defibrillation secondary to V-fib/Vtach Encephalopathy Baseline pulmonary hypertension Baseline systolic heart failure Status post Bi V ICD End-stage renal disease, Noncompliant with medication, followups and hemodialysis Pancytopenia History of GI bleeding Right pleural effusion s/p Right AV fistula thrombectomy central angioplasty and peripheral venous angioplasty by Vascular surgeon Cardiac suggestion for management: Manage in ICU telemetry Aggressive hemodialysis Follow-up electrolytes and kidney function tests and correct abnormalities For now, continue aspirin On Amiodarone and Mexiletine Further evaluation and management depends on the above and clinical course Further evaluation and management also depends on the regaining of high level of consciousness/brain function If the patient regains higher brain function, may proceed with ischemic workup. Hematology evaluation for pancytopenia suggested Pulmonary follow-up A total of 75 minutes was spent reviewing the patient record, examining the patient, making a diagnostic and therapeutic plan, discussing this plan with medical personnel, following up on diagnostic studies and following the patient for clinical stability excluding any and all procedures. At least 50% of this time was spent in direct, [id number]-wl-rhru contact. Thank you for allowing me to participate in this patient's care. Further recommendations will depend on patient's clinical course. Please do not hesitate to contact me if you have any questions or concerns. This medical document was created using electronic medical record system with [employer] computerized dictation system. Although this document has been carefully reviewed, there may still be some phonetic and typographical errors. These areas are purely typographical due to the imperfection of the software programs, and do not reflect any compromise in the patient's medical care. Dietary Evaluation Review Comments: 1 Consider TPN per pharmacy if NPO>7 days. 2.TF Nepro@40ml/hr providing 78g pro, 1699 kcal in 24 hrs, if EN/GI accessible, 3.Renal standard diet if pt is off vent and passing a speech eval. offer Nepro PO supplements 240 ml as tolerated if PO intake is less than 50% Expected Outcomes/Goals: Off Vent, maintain wt, less uremic symptoms with his routine HD course. Plan discussed with: Patient (Patient and Primary RN ) WILL MONTANEZ Jul 05, 2024 04:59
[2024-07-05 05:27] LABS: Anion Gap 6 (5-15); Carbon Dioxide 31 mmol/L (20-31); Chloride 102 mmol/L (98-107); Potassium 3.7 mmol/L (3.5-5.1); Sodium 139 mmol/L (136-145)
[2024-07-05 05:28] LABS: Calcium 9.5 mg/dL (8.7-10.4)
[2024-07-05 05:33] LABS: BUN/Creatinine Ratio 5.5 (10.0-20.0); Blood Urea Nitrogen 21 mg/dL (9-23)
[2024-07-05 05:46] LABS: Glucose 117 mg/dL (74-106)
--- NOTE | 2024-07-05 10:17 | DVHPN2 ---
Progress Note Date Seen: Jul 05, 2024 Medical Necessity Reason Pt with a Central, PICC or Fol: Yes The following are medically ne: Central Line, Lynne Catheter Reason for lynne catheter: Strict I&O Subjective Review of Systems: RESPIRATORY:Abnormal Other Systems: Patient seen and examined by myself today in follow-up, patient remained intubated on ventilator Objective vital signs Vital Sign Date Time Temp Pulse Resp B/P (MAP) Pulse Ox O2 Delivery O2 Flow Rate FiO2 07/05/24 09:45 65 18 114/40 (64) 100 07/05/24 08:22 30 07/05/24 08:00 Mechanical Ventilator+ 07/05/24 08:00 98.5 98.5 Total Intake and Output 07/04/24 07/04/24 07/05/24 15:00 23:00 07:00 Intake Total 144.058 ml 100.454 ml 681.012 ml Output Total 50 ml 30 ml Balance 144.058 ml 50.454 ml 651.012 ml medications Current Medications Medications Dose Ordered Sig/Colleen Route Start Time Stop Time Status Last Admin Dose Admin Bacitracin/ Polymyxin B Sulfate 1 applic TID OP 06/27/24 22:00 07/05/24 05:27 1 APPLIC Vancomycin HCl 0 ml @ 0 mls/hr UD IV 06/28/24 08:00 Dextrose 50 ml UD PRN IV 06/28/24 08:00 06/29/24 11:58 50 ML Pantoprazole Sodium 40 mg DAILY IV 06/29/24 10:00 07/05/24 09:35 40 MG Heparin Sodium/ Dextrose 250 ml @ 13.896 mls/ hr Q18H IV 06/28/24 08:00 UNV Midazolam HCl 50 ml @ 1 mls/hr Q24H IV 06/28/24 10:30 06/29/24 07:21 5 MLS/HR Fentanyl Citrate 250 ml @ 2.5 mls/hr Q24H IV 06/28/24 10:30 07/04/24 04:27 7.5 MLS/HR Diagnostic Test (Pha) 1 strip Q6HR 06/28/24 18:00 07/05/24 05:29 1 STRIP Norepinephrine Bitartrate 32 mg/ Sodium Chloride 250 ml @ 0.938 mls/ hr Q24H IV 06/28/24 14:30 06/28/24 16:00 9.375 MLS/HR Epoetin Eligio-epbx 10,000 unit MWF@2100 SC 06/29/24 21:00 07/03/24 20:59 10,000 UNIT Artificial Tears 2 drop Q6HP PRN EACHEYE 06/29/24 11:30 Piperacillin Sod/ Tazobactam Sod 100 ml @ 25 mls/hr Q12H IV 06/30/24 10:00 07/05/24 09:35 25 MLS/HR Enteral Nutritional Formula 1,000 ml 30ML/HR GT 06/30/24 15:45 07/05/24 02:42 1,000 ML Amiodarone HCl 200 mg BID PO 06/30/24 22:00 07/05/24 09:35 200 MG Mexiletine HCl 150 mg Q8HR PO 06/30/24 22:00 07/05/24 05:29 150 MG Dexmedetomidine HCl 400 mcg/ Dextrose 100 ml @ 4.465 mls/ hr [id number] IV 07/03/24 02:30 07/05/24 05:29 8.93 MLS/HR Acetaminophen 650 mg Q4HP PRN PO 07/03/24 18:00 Examination: LUNGS:Normal, CVS:Normal, MSK:Normal laboratory and microbiology Laboratory Tests 07/05/24 04:58 07/04/24 05:00 Test 07/05/24 04:58 Range/Units Serum Glucose 117 H 74-106 mg/dL Microbiology Date/Time Source Procedure Growth Status 06/28/24 11:44 Nose MRSA Screen - Final Complete 06/28/24 08:05 Sputum Gram Stain - Final Complete 06/28/24 08:05 Sputum Respiratory Culture - Final Complete 06/28/24 07:55 Blood Blood Culture - Final Staphylococcus epidermidis Complete Problem List/Assessment/Plan Problem List/Assessment/Plan ESRD on dialysis Acute respiratory failure, patient intubated on ventilator Hyperkalemia s/p cardiac arrest thrombosed AVF status post angioplasty and fistulogram by vascular surgery 07/01 CHF exacerbation Atrial fibrillation HTN Anemia chronic kidney disease Hypokalemia Recommendation Next hemodialysis 07/06 Epogen 86355 IV post hemodialysis Fluid restrictions KCL replacement Blood pressure control We will continue to follow up Plan discussed with: Other (Nurse) Dietary Evaluation Review Comments: 1 Consider TPN per pharmacy if NPO>7 days. 2.TF Nepro@40ml/hr providing 78g pro, 1699 kcal in 24 hrs, if EN/GI accessible, 3.Renal standard diet if pt is off vent and passing a speech eval. offer Nepro PO supplements 240 ml as tolerated if PO intake is less than 50% Expected Outcomes/Goals: Off Vent, maintain wt, less uremic symptoms with his routine HD course. BRITTANY AIKEN MD Jul 05, 2024 10:17
[2024-07-05 10:43] LABS: Base Excess 2.2 mmol/L (-2.0-3.0)
[2024-07-05] MEDS: VANCOMYCIN 1GM/250ML KIT 250 ML IV ONE (12:05)
--- NOTE | 2024-07-05 12:41 | DVHPN2 ---
Subjective The patient is seen and examined at bedside. The patient is status post extubate. The patient now requiring BiPAP because of shortness for breath again. Reviewed: Care Plan, H&P, Labs, Medications, Previous Orders, Radiology Changes from previous H/P or p: No Changes General: Per HPI Objective Vitals Vital Signs Date Time Temp Pulse Resp B/P (MAP) Pulse Ox O2 Delivery O2 Flow Rate FiO2 07/05/24 12:00 21 96 Cool Aerosol 10 40 40 07/05/24 12:00 98.3 90 127/56 (79) 98.3 Intake/Output Intake and Output 07/05/24 07:00 Intake Total 925.524 ml Output Total 80 ml Balance 845.524 ml IV Total 484.524 ml Tube Feeding 381 ml Other 60 ml Output Urine Total 80 ml General Appearance: Alert, Cooperative, mild distress HEENT: Atraumatic, PERRLA, EOMI, Mucous membr. moist/pink Neck: Supple Lungs: Clear to auscultation, Normal air movement Cardiovascular: Regular rate, Normal S1, Normal S2, No murmurs, Gallops, Rubs Abdomen: Normal bowel sounds, Soft, No tenderness Neuro: Cranial nerves 3-12 NL Psych/Mental Status: Mental status NL Medications Current Medications Medications Dose Ordered Sig/Colleen Route Start Time Stop Time Status Last Admin Dose Admin Bacitracin/ Polymyxin B Sulfate 1 applic TID OP 06/27/24 22:00 07/05/24 05:27 1 APPLIC Vancomycin HCl 0 ml @ 0 mls/hr UD IV 06/28/24 08:00 Dextrose 50 ml UD PRN IV 06/28/24 08:00 06/29/24 11:58 50 ML Pantoprazole Sodium 40 mg DAILY IV 06/29/24 10:00 07/05/24 09:35 40 MG Heparin Sodium/ Dextrose 250 ml @ 13.896 mls/ hr Q18H IV 06/28/24 08:00 UNV Midazolam HCl 50 ml @ 1 mls/hr Q24H IV 06/28/24 10:30 06/29/24 07:21 5 MLS/HR Fentanyl Citrate 250 ml @ 2.5 mls/hr Q24H IV 06/28/24 10:30 07/04/24 04:27 7.5 MLS/HR Diagnostic Test (Pha) 1 strip Q6HR 06/28/24 18:00 07/05/24 11:43 1 STRIP Norepinephrine Bitartrate 32 mg/ Sodium Chloride 250 ml @ 0.938 mls/ hr Q24H IV 06/28/24 14:30 06/28/24 16:00 9.375 MLS/HR Epoetin Eligio-epbx 10,000 unit MWF@2100 SC 06/29/24 21:00 07/03/24 20:59 10,000 UNIT Artificial Tears 2 drop Q6HP PRN EACHEYE 06/29/24 11:30 Piperacillin Sod/ Tazobactam Sod 100 ml @ 25 mls/hr Q12H IV 06/30/24 10:00 07/05/24 09:35 25 MLS/HR Enteral Nutritional Formula 1,000 ml 30ML/HR GT 06/30/24 15:45 07/05/24 02:42 1,000 ML Amiodarone HCl 200 mg BID PO 06/30/24 22:00 07/05/24 09:35 200 MG Mexiletine HCl 150 mg Q8HR PO 06/30/24 22:00 07/05/24 05:29 150 MG Dexmedetomidine HCl 400 mcg/ Dextrose 100 ml @ 4.465 mls/ hr [id number] IV 07/03/24 02:30 07/05/24 05:29 8.93 MLS/HR Acetaminophen 650 mg Q4HP PRN PO 07/03/24 18:00 Laboratory Results Laboratory Tests 07/04/24 05:00 07/05/24 04:58 Chemistry Test 07/05/24 04:58 Calcium Level 9.5 mg/dL (8.7-10.4) Blood Gas Results Test 07/05/24 09:28 Arterial Blood pH 7.363 (7.350-7.450) FiO2 % 30.0 Microbiology Microbiology Date/Time Source Procedure Growth Status 06/28/24 11:44 Nose MRSA Screen - Final Complete 06/28/24 08:05 Sputum Gram Stain - Final Complete 06/28/24 08:05 Sputum Respiratory Culture - Final Complete 06/28/24 07:55 Blood Blood Culture - Final Staphylococcus epidermidis Complete Labs and/or images reviewed: Labs reviewed by me Assessment/Plan Assessment/Plan # acute hypoxemic encephalopathy due s/p cardiac arrest Status post extubation Acute kidney injury/ESRD on hemodialysis Right AV fistula thrombectomy central angioplasty and peripheral venous angioplasty performed Vascular team on board Cardiovascular Acute on chronic systolic heart failure NYHA III-IV Cardiogenic shock due to VT/VF s/p cardiac arrest History of nonischemic cardiomyopathy History of myocardial infarction Severe pulmonary hypertension RVSP 75 mmHg Atrial fibrillation HFrEF SP AICD/MANAGEMENT TRAINER D/pace CAD status post 3 stents -CT angiography unremarkable -[employer]tr[employer] interrogation unremarkable -amiodarone po -mexiletine po Respiratory: Acute hypoxemic respiratory failure due to heart failure reduced ejection fraction exacerbation due to septic/cardiogenic shock Status post extubation, now on BiPAP Bilateral infiltrates on chest x-ray possible aspiration pneumonia versus pulmonary edema Bilateral pleural effusion Renal: ESRD on hemodialysis Acute kidney injury on ESRD Hyperkalemia Hypoalbuminemia -hemodialysis tomorrow -Rajesh catheter [facility]J -Right AV fistula thrombectomy central angioplasty and peripheral venous angioplasty -CT angiography rule out PE -CT head unremarkable Infectious disease: Shock likely septic due to suspected UTI/aspiration pneumonia Leukocytosis Bilateral infiltrates likely due to possible aspiration pneumonia -continue empiric broad-spectrum antibiotic with Zosyn and vanco -Monitor white blood cell count and lactate Endocrine History of Type 2 diabetes Hematology: Severe anemia status post 2 packed red blood cell transfusion Monitor CBC daily Assess need for PRBC transfusion if hemoglobin less than 7. drips: fentanyl precedex Continuing current management. We will check labs in the morning. Swallow eval in the morning. If pass we will consider to restart diet. This medical document was created using an electronic medical record system with [employer] direct computerized dictation system. Although this document has been carefully reviewed, there may still be some phonetic and typographical errors. These areas are purely typographical due to imperfections of the software programs, and do not reflect any compromise in the patient's medical care. Plan discussed with: Patient Date of Service: Jul 05, 2024 Billing Provider: CHINA RODRIGUEZ MD Common Visit Codes: [id number] INP/OBS CARE(HIGH) CHINA RODRIGUEZ MD Jul 05, 2024 12:41
[2024-07-05] MEDS: IPRATROPIUM BROM 0.5 MG/2.5ML INH SOL NEB PRN (15:50)
[2024-07-05] MEDS: ALBUTEROL SULF 2.5 MG/0.5ML(0.5%) NEB SOLN NEB PRN (15:50)
[2024-07-05] MEDS: MORPHINE SULFATE INJ 2 MG/ml SYRG IV PRN (16:16)
[2024-07-05 16:52] LABS: Base Excess 2.6 mmol/L (-2.0-3.0)
--- NOTE | 2024-07-05 20:11 | DVH ---
CHEST RADIOGRAPH Indication: CHANGE IN RESPIRATORY STATUS Technique: Single frontal view of the chest was obtained Comparison: XY CHEST PORTABLE on DOS: 07/04/24, XY CHEST PORTABLE on DOS: 07/03/24, XY CHEST PORTABLE o n DOS: 07/02/24 FINDINGS: Lines and Tubes: Biventricular pacemaker in place with pulse generator over the left chest. Right s ubclavian stent in place Lungs: Bibasilar infiltrates and right pleural effusion. Findings are worse on the right than the le ft. Pleura: No effusion. No pneumothorax. Cardiomediastinal contours: Unremarkable right subclavian stent in place Bones: No acute osseous abnormality. IMPRESSION: 1. Biventricular pacemaker in place 2. Bibasilar infiltrates right pleural effusion. Right pleural effusion appears to have slightly incr eased. This may be secondary to patient positioning. 3. Right subclavian stent in place unchanged from 07/04/2024..
--- NOTE | 2024-07-05 23:01 | DVHPN2 ---
Progress Note - Dictate Date Seen: Jul 05, 2024 Medical Necessity Reason Pt with a Central, PICC or Fol: Yes The following are medically ne: Central Line, Lynne Catheter Reason for lynne catheter: Strict I&O Subjective Patient seen and examined at bedside. S/p extubation, currently on supplemental oxygen Overnight events reviewed. vital signs Vital Sign Date Time Temp Pulse Resp B/P (MAP) Pulse Ox O2 Delivery O2 Flow Rate FiO2 07/05/24 21:00 92 28 152/74 (100) 97 07/05/24 20:00 99.1 99.1 07/05/24 18:00 Nasal Cannula* 4 36 Total Intake and Output 07/04/24 07/04/24 07/05/24 15:00 23:00 07:00 Intake Total 144.058 ml 100.454 ml 681.012 ml Output Total 50 ml 30 ml Balance 144.058 ml 50.454 ml 651.012 ml medications Current Medications Medications Dose Ordered Sig/Colleen Route Start Time Stop Time Status Last Admin Dose Admin Bacitracin/ Polymyxin B Sulfate 1 applic TID OP 06/27/24 22:00 07/05/24 21:37 1 APPLIC Vancomycin HCl 0 ml @ 0 mls/hr UD IV 06/28/24 08:00 Dextrose 50 ml UD PRN IV 06/28/24 08:00 06/29/24 11:58 50 ML Pantoprazole Sodium 40 mg DAILY IV 06/29/24 10:00 07/05/24 09:35 40 MG Heparin Sodium/ Dextrose 250 ml @ 13.896 mls/ hr Q18H IV 06/28/24 08:00 UNV Midazolam HCl 50 ml @ 1 mls/hr Q24H IV 06/28/24 10:30 06/29/24 07:21 5 MLS/HR Fentanyl Citrate 250 ml @ 2.5 mls/hr Q24H IV 06/28/24 10:30 07/04/24 04:27 7.5 MLS/HR Diagnostic Test (Pha) 1 strip Q6HR 06/28/24 18:00 07/05/24 18:28 1 STRIP Norepinephrine Bitartrate 32 mg/ Sodium Chloride 250 ml @ 0.938 mls/ hr Q24H IV 06/28/24 14:30 06/28/24 16:00 9.375 MLS/HR Epoetin Eligio-epbx 10,000 unit MWF@2100 SC 06/29/24 21:00 07/03/24 20:59 10,000 UNIT Artificial Tears 2 drop Q6HP PRN EACHEYE 06/29/24 11:30 Piperacillin Sod/ Tazobactam Sod 100 ml @ 25 mls/hr Q12H IV 06/30/24 10:00 07/05/24 21:37 25 MLS/HR Enteral Nutritional Formula 1,000 ml 30ML/HR GT 06/30/24 15:45 07/05/24 02:42 1,000 ML Amiodarone HCl 200 mg BID PO 06/30/24 22:00 07/05/24 21:37 200 MG Mexiletine HCl 150 mg Q8HR PO 06/30/24 22:00 07/05/24 21:37 150 MG Dexmedetomidine HCl 400 mcg/ Dextrose 100 ml @ 4.465 mls/ hr [id number] IV 07/03/24 02:30 07/05/24 05:29 8.93 MLS/HR Acetaminophen 650 mg Q4HP PRN PO 07/03/24 18:00 Albuterol 2.5 mg Q6HPRN PRN NEB 07/05/24 14:30 07/05/24 15:50 2.5 MG Ipratropium [place] 0.5 mg Q6HPRN PRN NEB 07/05/24 14:30 07/05/24 15:50 0.5 MG Morphine Sulfate 1 mg Q4HP PRN IV 07/05/24 15:45 07/05/24 16:16 1 MG objective Gen.: Patient lying in bed in no apparent distress. On supplemental oxygen Head: Normocephalic, atraumatic. Eyes: EOMI/PERRLA. Ears: Normal hearing. Normal anatomy. Neck/trachea: Trachea midline, supple. Nose: Normal external anatomy. Mouth: Moist mucous membranes. Chest: Decreased air entry bilaterally. No wheezing or rhonchi. Cardiovascular: Positive S1, positive S2. Regular rate and rhythm. Abdomen: Positive bowel sounds in all 4 quadrants. Soft, non-tender, non- distended. : Deferred. Rectal: Deferred. Skin: Warm, dry. Intact. Extremities: 2+ radial pulses bilaterally. No lower extremity edema. Neuro: Awake, alert, oriented x3. No gross motor or sensory deficits. Cranial nerves II through XII intact. Gait not assessed. laboratory and microbiology Laboratory Tests 07/05/24 04:58 07/04/24 05:00 Test 07/05/24 04:58 Range/Units Serum Glucose 117 H 74-106 mg/dL Assessment/Plan Impression: s/p code Acute hypoxic respiratory failure On mechanical ventilator Atelectasis End-stage renal disease, on hemodialysis Pleural effusions Events: ABG reviewed, compensated. Pt tolerated CPAP, was extubated uneventfully to BIPAP. BiPAP w/ IPAP 12, EPAP 5, FiO2 30% Transitioned to supplemental oxygen, currently on 4 LPM NC Taper O2 as tolerated Continue abx Monitor hemoglobin, 7.7 g/dl Monitor platelets, currently 53 K Monitor renal function Monitor electrolytes. Supplement as necessary. Monitor ins and outs. HD per Nephrology Labs and imaging reviewed. Rest of plan as noted below. Plan: S/p extubation Supplemental oxygen Titrate to keep O2 sats above 90%. Off sedation Continue abx Tube feeds for nutritional support Off pressors - monitor hemodynamics Monitor renal function Monitor electrolytes. Supplement as necessary. Monitor ins and outs. HD per Nephrology DVT prophylaxis. Prognosis: Guarded given patient's multiple co-morbidities. Condition: Critical Rest of plan per hospitalist and other consultants. A total of 35 minutes of critical care time was spent reviewing the patient record, examining the patient, making a diagnostic and therapeutic plan, discussing this plan with the medical personnel, following up on diagnostic studies and following the patient for clinical stability excluding any and all procedures. At least 50% of this time was spent in direct, [id number] contact. Thank you for allowing me to participate in this patient's care. Further recommendations will depend on the patient's clinical course. Please do not hesitate to contact me if you have any questions or concerns. This medical document was created using an electronic medical record system with [employer]. dictation system. Although these documentations are being carefully reviewed, there may still be some phonetic and typographical changes. The errors are purely typographical, due to imperfection on the software program, and do not reflect any compromise in the patient's medical care. Dietary Evaluation Review Comments: 1 Consider TPN per pharmacy if NPO>7 days. 2.TF Nepro@40ml/hr providing 78g pro, 1699 kcal in 24 hrs, if EN/GI accessible, 3.Renal standard diet if pt is off vent and passing a speech eval. offer Nepro PO supplements 240 ml as tolerated if PO intake is less than 50% Expected Outcomes/Goals: Off Vent, maintain wt, less uremic symptoms with his routine HD course. Plan discussed with: Other (MITCHEL Johnston) Critical Care Time(min): 35 DEVAUGHN LEONG MD Jul 05, 2024 23:01
[2024-07-06] VITALS (29 sets, daily range): BP systolic 1–170; BP diastolic 58–93; PULSE 80–99; RESP 15–32; TEMP 97.6–98.5; O2SAT 78–100
--- NOTE | 2024-07-06 08:47 | DVHPN2 ---
Progress Note - Dictate Date Seen: Jul 06, 2024 Medical Necessity Reason Pt with a Central, PICC or Fol: Yes The following are medically ne: Central Line, Lynne Catheter Reason for lynne catheter: Strict I&O vital signs Vital Sign Date Time Temp Pulse Resp B/P (MAP) Pulse Ox O2 Delivery O2 Flow Rate FiO2 07/06/24 08:00 97.6 87 29 153/72 (99) 95 97.6 07/06/24 06:25 Nasal Cannula 3.0 07/06/24 06:25 32 Total Intake and Output 07/05/24 07/05/24 07/06/24 14:59 22:59 06:59 Intake Total 417.779 ml 200 ml Output Total 50 ml 50 ml Balance 417.779 ml -50 ml 150 ml medications Current Medications Medications Dose Ordered Sig/Colleen Route Start Time Stop Time Status Last Admin Dose Admin Bacitracin/ Polymyxin B Sulfate 1 applic TID OP 06/27/24 22:00 07/06/24 05:06 1 APPLIC Vancomycin HCl 0 ml @ 0 mls/hr UD IV 06/28/24 08:00 Dextrose 50 ml UD PRN IV 06/28/24 08:00 06/29/24 11:58 50 ML Pantoprazole Sodium 40 mg DAILY IV 06/29/24 10:00 07/05/24 09:35 40 MG Heparin Sodium/ Dextrose 250 ml @ 13.896 mls/ hr Q18H IV 06/28/24 08:00 UNV Midazolam HCl 50 ml @ 1 mls/hr Q24H IV 06/28/24 10:30 06/29/24 07:21 5 MLS/HR Fentanyl Citrate 250 ml @ 2.5 mls/hr Q24H IV 06/28/24 10:30 07/04/24 04:27 7.5 MLS/HR Norepinephrine Bitartrate 32 mg/ Sodium Chloride 250 ml @ 0.938 mls/ hr Q24H IV 06/28/24 14:30 06/28/24 16:00 9.375 MLS/HR Epoetin Eligio-epbx 10,000 unit MWF@2100 SC 06/29/24 21:00 07/03/24 20:59 10,000 UNIT Artificial Tears 2 drop Q6HP PRN EACHEYE 06/29/24 11:30 Piperacillin Sod/ Tazobactam Sod 100 ml @ 25 mls/hr Q12H IV 06/30/24 10:00 07/05/24 21:37 25 MLS/HR Amiodarone HCl 200 mg BID PO 06/30/24 22:00 07/05/24 21:37 200 MG Mexiletine HCl 150 mg Q8HR PO 06/30/24 22:00 07/06/24 05:06 150 MG Dexmedetomidine HCl 400 mcg/ Dextrose 100 ml @ 4.465 mls/ hr [id number] IV 07/03/24 02:30 07/05/24 05:29 8.93 MLS/HR Acetaminophen 650 mg Q4HP PRN PO 07/03/24 18:00 Albuterol 2.5 mg Q6HPRN PRN NEB 07/05/24 14:30 07/05/24 15:50 2.5 MG Ipratropium [place] 0.5 mg Q6HPRN PRN NEB 07/05/24 14:30 07/05/24 15:50 0.5 MG Morphine Sulfate 1 mg Q4HP PRN IV 07/05/24 15:45 07/06/24 07:56 1 MG laboratory and microbiology Laboratory Tests 07/05/24 04:58 07/04/24 05:00 Test 07/05/24 04:58 Range/Units Serum Glucose 117 H 74-106 mg/dL Assessment/Plan Patient is a 64-year-old gentleman who presented on June 27, 2024 for around a week of flu symptoms and upper left swellings. At the time of evaluation, the patient is being managed in unit. He is intubated and not source of history. Information was obtained by reviewing the chart. Reportedly, the patient had missed hemodialysis quite a few times before presentation as he felt sick. It is reported that he did have flu-like symptoms, eye congestion and diarrhea prior to presentation. While being managed on the floor, patient was found to be nonresponsive and was coded. There is no detailed information about the time of the code. There is question about PEA. The patient was intubated and was brought to the unit. Patient was seen by on-call dinkey brakeman at that point. At this point, we are called for Cardiology as the patient is known to us from before. There is no report of actual chest pain. It is of note that serial troponin has been negative. There is no available telemetry at the time of the episode. Is also of note that the patient does have BiV-ICD from before. Presently, the patient is admitted with septic shock. Patient was in the hospital around a month ago. And was managed for acute on chronic systolic heart failure, pancytopenia and pleural effusions (for which had pleurocentesis). He should have been on Eliquis as outpatient. Extubated. There are signs of conjunctivitis on bilateral eyes. No JVD. Mucosa is pink and wet. No carotid bruit. Lungs: Scattered rhonchi in the lungs is heard. Cardiac: Regular, systolic murmur 3/6 in the apex is heard. The site for ICD implantation looks clean with no erythema/ecchymosis/tenderness. Abdomen is soft. Bowel sound is positive. Extremities reveal 2+ edema bilaterally. AV fistula in the right upper extremity with thrill was observed. 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 Echocardiogram of April 08, 2024 had reported four-chamber dilatation, ejection fraction of 20%, [id number] MR/TR and right ventricular systolic pressure of 75 mm Hg Echocardiogram of May 19, 2024 had reported four-chamber dilatation, ejection fraction of 35%, D shaped septum, pulmonary hypertension, mobile interatrial septum, [id number] aortic insufficiency, mild mitral regurgitation, moderate TR and right ventricular systolic pressure of 80 mm Hg WBC: 2.9 - 2.6 - 2.9 - 4.3 - 5.6 - 3.6 - 4.3 - 2.9 - 3.1 Hemoglobin: 7.2 - 7.2 - 8.0 - 5.5 - 8.8 - 8.7 - 7.4 - 7.5 - 7.8 - 7.7 Platelet: 102 - 111 - 106 - 99 - 89 - 69 - 70 - 52 - 53 Creatinine: 8.29 - 8.51 - 8.5 - 8.17 - 8.63 - 6.77 - 4.80 - 3.86 - 4.84 - 3.81 Potassium: 5.2 - 5.7 - 5.1 - 5.2 - 5.9 - 4.5 - 4.3 - 4.2 - 3.3 - 3.8 - 3.7 Lactic acid: 4.7 - 2.7 Troponin (high sensitive) 40 - 41 - 40 BNP: 2509.04 D-Dimer: 4.72 Digoxin: <0.14 Chest x-ray reported: FINDINGS: LUNGS AND PLEURAL SPACES: See below. HEART: Cardiomegaly with moderate congestion. Left cardiac. MEDIASTINUM: Unremarkable. Normal mediastinal contour. BONES/JOINTS: Unremarkable. No acute fracture. OTHER FINDINGS: . . . .. IMPRESSION: Cardiomegaly with moderate congestion. Repeat chest x-ray reported: Medical devices: The ETT ends above the level of elizabeth at the level of clavicular heads. The enteric tube extends to the stomach. Multi lead left upper chest wall AICD with leads extending to the cardiac chambers. Cardiomediastinal: The heart is moderately enlarged. Pulmonary vasculature is prominent. Atherosclerotic calcification of the aortic arch noted. Lungs: There is interval enlargement of now moderate-sized right pleural effusion and interval development of patchy consolidation in the right middle and left upper lung zone. Small opacities are noted in the left lung base. Diffuse bilateral interstitial opacities are noted. No pneumothorax. Bones/soft tissues: No acute abnormality is noted. Right subclavian vascular stents noted. IMPRESSION: 1. Worsening CHF with moderate right pleural effusion , interval development of extensive bilateral interstitial opacities and large patchy multifocal bilateral consolidations that may represent edema or pneumonia. Recommend clinical and biochemical correlation. Repeat chest xry reported: IMPRESSION: 1. Right basilar atelectasis or pneumonia. 2. Cardiomegaly with mild congestion. Repeat chest xry reported: IMPRESSION: 1. Right basilar atelectasis or pneumonia. Small bilateral pleural effusions. 2. Cardiomegaly with mild congestion. 3. Endotracheal tube now projects 6 cm above level the elizabeth in appropriate position. Repeat chest xry reported: IMPRESSION: 1. Cardiomegaly with pulmonary congestion and edema. Superimposed pneumonia cannot be excluded. 2. Right pleural effusion. Repeat chest xry reported: FINDINGS: VERTEBRAE: Unremarkable. No acute fracture. Normal alignment. No instability. DISC SPACES: No acute findings. No significant narrowing. SOFT TISSUES: Unremarkable. HEART: Left cardiac. Mild congestive heart failure. TUBES, LINES AND DEVICES: Enteric tube tip in the stomach. The endotracheal tube (ETT) is in satisfactory position. OTHER FINDINGS: . ... IMPRESSION: Mild congestive heart failure. Repeat chest xry revealed: IMPRESSION: Cardiomegaly with moderate congestion. Repeat chest xry revealed: IMPRESSION: 1. Mechanical ventilation with tubes and lines as above. 2. Right basilar infiltrate and effusion, improved. 3. Cardiomegaly. Repeat chest xry revealed: IMPRESSION: 1. Biventricular pacemaker in place 2. Bibasilar infiltrates right pleural effusion. Right pleural effusion appears to have slightly increased. This may be secondary to patient positioning. 3. Right subclavian stent in place unchanged from 07/04/2024.. Upper ext (right) arterial duplex reported: IMPRESSION: 1. The right upper extremity brachial-cephalic AVF is thrombosed. 2. The right axillary stent is thrombosed. 3. The arteries of the right upper extremity including subclavian, axillary, brachial, radial and ulnar arteries are patent. CTA of lungs revealed: IMPRESSION: 1. No pulmonary embolism. 2. Large right and small left pleural effusion with associated bilateral atelectasis and consolidation. Patchy ground-glass opacities could represent pulmonary edema or an infectious / inflammatory process. Mediastinal lymphadenopathy similar to prior. Clinical correlation and continued follow-up is recommended. Overall appearance is worse compared to prior exam. CT of head reported: 1. No acute intracranial pathology. Cortical atrophy greater on the left. EKG revealed paced rhythm Telemetry revealed paced rhythm (it is of note that telemetry rhythm at the time of the code is not available to revealed) Echocardiogram reported: limited study. lvef 20% by visual estimate. postop septum. septum flattening noted. RV enlarged with dysfunction. biatrial enlargement. valves not assessed Medtronic ICD interrogation revealed: Remaining longevity of battery: 3.8 years; DDDR: 60/130; Pacing impedance: A 380 /RV 323/LV 304 Ohms; Shock impedance: RV 29 Ohms; Capture threshold: Atrial 0.5/RV 0.875 volts at 0.4 milliseconds; Program sensitivity: Atrial 0.3/RV 0.3 mV; Episodes: VT/VF: 1 resulting in shock; Changes performed: VTE detection interval was changed from 270 millisecond to 320 millisecond/VT detection interval was changed from 330 millisecond to 400 milliseconds Patient is a 64-year-old gentleman who presented with flu-like symptoms, but later coded in the floor. No tele rhythm of the time of the code was available to review (at first). Reportedly there was PA. Stable serial high sensitive troponin is against acute coronary syndrome. Patient does have baseline history of heart failure and pulmonary hypertension. He also has Bi V ICD (interrogation revealed episode of v-fib/v-tach resulting in Defibrillation). Does have baseline history of noncompliance to medication/hemodialysis. Does have baseline history of pancytopenia and is found to have significant anemia. With respiratory failure and on vent support. Case discussed with Electrophysiology (Dr Tamayo). Acute arrest Rule out PA Questionable encephalopathy, anoxic versus toxic? Recent URI Septic shock s/p Defibrillation secondary to V-fib/Vtach Encephalopathy Baseline pulmonary hypertension Baseline systolic heart failure Status post Bi V ICD End-stage renal disease, Noncompliant with medication, followups and hemodialysis Pancytopenia History of GI bleeding Right pleural effusion s/p Right AV fistula thrombectomy central angioplasty and peripheral venous angioplasty by Vascular surgeon Cardiac suggestion for management: Manage in ICU telemetry Aggressive hemodialysis Follow-up electrolytes and kidney function tests and correct abnormalities For now, continue aspirin On Amiodarone and Mexiletine Further evaluation and management depends on the above and clinical course Further evaluation and management also depends on the regaining of high level of consciousness/brain function Left Heart cath Hematology evaluation for pancytopenia suggested Pulmonary follow-up A total of 75 minutes was spent reviewing the patient record, examining the patient, making a diagnostic and therapeutic plan, discussing this plan with medical personnel, following up on diagnostic studies and following the patient for clinical stability excluding any and all procedures. At least 50% of this time was spent in direct, [id number] contact. Thank you for allowing me to participate in this patient's care. Further recommendations will depend on patient's clinical course. Please do not hesitate to contact me if you have any questions or concerns. This medical document was created using electronic medical record system with [employer] dictation system. Although this document has been carefully reviewed, there may still be some phonetic and typographical errors. These areas are purely typographical due to the imperfection of the software programs, and do not reflect any compromise in the patient's medical care. Dietary Evaluation Review Comments: 1 Consider TPN per pharmacy if NPO>7 days. 2.TF Nepro@40ml/hr providing 78g pro, 1699 kcal in 24 hrs, if EN/GI accessible, 3.Renal standard diet if pt is off vent and passing a speech eval. offer Nepro PO supplements 240 ml as tolerated if PO intake is less than 50% Expected Outcomes/Goals: Off Vent, maintain wt, less uremic symptoms with his routine HD course. Plan discussed with: Patient, Other (nurse) SUSHMA WALKER MD Jul 06, 2024 08:47
--- NOTE | 2024-07-06 10:24 | DVH ---
CHEST RADIOGRAPH Indication: CHANGE IN RESPIRATORY STATUS Technique: Single frontal view of the chest was obtained COMPARISON: XY CHEST PORTABLE on DOS: 07/05/24, XY CHEST PORTABLE on DOS: 07/04/24, XY CHEST PORTABLE o n DOS: 07/03/24, XY CHEST PORTABLE on DOS: 07/02/24, XY CHEST PORTABLE on DOS: 07/01/24 FINDINGS: Lines and Tubes: Left chest wall AICD. Left central venous catheter in satisfactory position. Lungs: Patchy bilateral airspace opacities. Pleura: Small bilateral pleural effusions, [id number]-left. No pneumothorax. Cardiomediastinal contours: Unremarkable Bones: Unremarkable IMPRESSION: Unchanged fluid overload.
[2024-07-06 10:27] LABS: Eosinophils # (auto) 0.7 10 ^3/uL (0-0.8); Hemoglobin 7.4 g/dL (13.5-17.5); Monocytes # (auto) 0.5 10 ^3/uL (0-1.3); Nucleated Red Blood Cells % 0.1 %; Platelet Count (auto) 68 10^3/uL (140-450)
[2024-07-06 10:32] LABS: Basophils # (auto) 0 10 ^3/uL (0-0.2); Basophils % (auto) 0.9 % (0.0-2.0); Eosinophils % (auto) 14.6 % (0.0-7.0); Hematocrit 22.6 % (41.0-53.0); Lymphocytes # (auto) 0.3 10 ^3/uL (0.4-5.4); Lymphocytes % (auto) 5.6 % (10.0-50.0); Mean Corpuscular Hemoglobin 31.8 pg (28.0-32.0); Mean Corpuscular Hgb Conc. 32.5 g/dL (32.0-36.0); Mean Corpuscular Volume 97.8 fL (80.0-100.0); Monocytes % (auto) 10.1 % (0.0-12.0); Neutrophils # (auto) 3.3 10 ^3/uL (1.6-8.6); Neutrophils % (auto) 68.8 % (37.0-80.0); Red Blood Cells 2.31 10^6/uL (4.5-5.90); Red Cell Distribution Width 19.6 % (11.8-14.3); White Blood Cell 4.7 10^3/uL (4.4-10.8)
[2024-07-06 10:50] LABS: Anion Gap 10 (5-15); Carbon Dioxide 27 mmol/L (20-31); Chloride 100 mmol/L (98-107); Potassium 4.2 mmol/L (3.5-5.1); Sodium 137 mmol/L (136-145)
[2024-07-06 10:52] LABS: Calcium 9.8 mg/dL (8.7-10.4)
[2024-07-06 10:56] LABS: BUN/Creatinine Ratio 5.1 (10.0-20.0)
[2024-07-06 11:17] LABS: Blood Urea Nitrogen 26 mg/dL (9-23); Glucose 117 mg/dL (74-106)
--- NOTE | 2024-07-06 12:20 | DVHPN2 ---
Progress Note Date Seen: Jul 06, 2024 Medical Necessity Reason Pt with a Central, PICC or Fol: Yes The following are medically ne: Central Line, Lynne Catheter Reason for lynne catheter: Strict I&O Subjective Patient reports: Feels worse Review of Systems: RESPIRATORY:Abnormal Objective vital signs Vital Sign Date Time Temp Pulse Resp B/P (MAP) Pulse Ox O2 Delivery O2 Flow Rate FiO2 07/06/24 12:00 98.0 88 28 156/70 (98) 95 98.0 07/06/24 08:00 Nasal Cannula* 3 32 Total Intake and Output 07/05/24 07/05/24 07/06/24 15:00 23:00 07:00 Intake Total 403.849 ml 200 ml Output Total 50 ml 50 ml Balance 403.849 ml -50 ml 150 ml medications Current Medications Medications Dose Ordered Sig/Colleen Route Start Time Stop Time Status Last Admin Dose Admin Bacitracin/ Polymyxin B Sulfate 1 applic TID OP 06/27/24 22:00 07/06/24 05:06 1 APPLIC Dextrose 50 ml UD PRN IV 06/28/24 08:00 06/29/24 11:58 50 ML Heparin Sodium/ Dextrose 250 ml @ 13.896 mls/ hr Q18H IV 06/28/24 08:00 UNV Midazolam HCl 50 ml @ 1 mls/hr Q24H IV 06/28/24 10:30 06/29/24 07:21 5 MLS/HR Fentanyl Citrate 250 ml @ 2.5 mls/hr Q24H IV 06/28/24 10:30 07/04/24 04:27 7.5 MLS/HR Norepinephrine Bitartrate 32 mg/ Sodium Chloride 250 ml @ 0.938 mls/ hr Q24H IV 06/28/24 14:30 06/28/24 16:00 9.375 MLS/HR Epoetin Eligio-epbx 10,000 unit MWF@2100 SC 06/29/24 21:00 07/03/24 20:59 10,000 UNIT Artificial Tears 2 drop Q6HP PRN EACHEYE 06/29/24 11:30 Amiodarone HCl 200 mg BID PO 06/30/24 22:00 07/06/24 10:37 200 MG Mexiletine HCl 150 mg Q8HR PO 06/30/24 22:00 07/06/24 05:06 150 MG Dexmedetomidine HCl 400 mcg/ Dextrose 100 ml @ 4.465 mls/ hr Q37S85P IV 07/03/24 02:30 07/05/24 05:29 8.93 MLS/HR Acetaminophen 650 mg Q4HP PRN PO 07/03/24 18:00 Albuterol 2.5 mg Q6HPRN PRN NEB 07/05/24 14:30 07/05/24 15:50 2.5 MG Ipratropium [place] 0.5 mg Q6HPRN PRN NEB 07/05/24 14:30 07/05/24 15:50 0.5 MG Morphine Sulfate 1 mg Q4HP PRN IV 07/05/24 15:45 07/06/24 07:56 1 MG Pantoprazole Sodium 40 mg DAILY@0600 PO 07/07/24 06:00 Examination: GENERAL:Normal, LUNGS:Normal, LUNGS:Abnormal, CVS:Abnormal laboratory and microbiology Laboratory Tests 07/06/24 10:17 Test 07/06/24 10:17 Range/Units Serum Glucose 117 H 74-106 mg/dL Microbiology Date/Time Source Procedure Growth Status 06/28/24 11:44 Nose MRSA Screen - Final Complete 06/28/24 08:05 Sputum Gram Stain - Final Complete 06/28/24 08:05 Sputum Respiratory Culture - Final Complete 06/28/24 07:55 Blood Blood Culture - Final Staphylococcus epidermidis Complete Problem List/Assessment/Plan Problem List/Assessment/Plan ESRD s/p cardiac arrest Pleural effusions CHF exacerbation Hx of Afib Hx of GA HTN anemia due to CKD fthrombosed Right AVF now w/ temp left IJ catheter heart cath today HD tomorrow epogen 3x a week lasix IV today due to congestion, still has some residual renal function iron panel ordered for tomorrow cardiology Plan discussed with: Patient Dietary Evaluation Review Comments: 1 Consider TPN per pharmacy if NPO>7 days. 2.TF Nepro@40ml/hr providing 78g pro, 1699 kcal in 24 hrs, if EN/GI accessible, 3.Renal standard diet if pt is off vent and passing a speech eval. offer Nepro PO supplements 240 ml as tolerated if PO intake is less than 50% Expected Outcomes/Goals: Off Vent, maintain wt, less uremic symptoms with his routine HD course. JOSE GUADALUPE ELLIOTT MD Jul 06, 2024 12:19
[2024-07-06 12:37] LABS: Base Excess 2.3 mmol/L (-2.0-3.0)
[2024-07-06] MEDS: ONDANSETRON HCL 4 MG/2 ML VIAL ONE (13:02)
[2024-07-06 13:20] LABS: Hematocrit 22.8 % (41.0-53.0); Hemoglobin 7.5 g/dL (13.5-17.5)
[2024-07-06] MEDS: FUROSEMIDE 100 MG/10ML VIAL IV ONE (14:13)
[2024-07-06] MEDS: IODIXANOL 320MG/ML 100ML BTL IV ONE ×2 (15:01→15:18)
[2024-07-06] MEDS: ANGIOMAX 250 MG VIAL IV ONE (15:17)
[2024-07-06] MEDS: VERAPAMIL 2.5MG/ML INJ 2ML VIAL IV ONE (15:17)
[2024-07-06] MEDS: SODIUM CHL 0.9% 0 ML ONE (15:18)
[2024-07-06] MEDS: LIDOCAINE 2%HCL (LOCAL ANESTH.) INJ 20ML MDV ONE (15:18)
[2024-07-06] MEDS: fentaNYL CITRATE 100 MCG/2 ML VL ONE (15:20)
[2024-07-06] MEDS: MIDAZOLAM HCL 2MG/2ML 2ml VIAL (1mg/ml) ONE (15:21)
--- NOTE | 2024-07-06 16:30 | DVHOP2 ---
Operative Report Procedures performed: Left heart catheterization and bilateral coronary angiogram Moderate sedation Sono guided access Diagnosis: Nonobstructive coronary artery disease Patent stents in mid LAD/proximal RCA/distal RCA Negative FFR of 50% lesion in mid LAD LVEDP of 10 mm Hg Cardiac suggestions for management: Optimized medical therapy Guideline directed medical therapy for systolic heart failure Lifestyle and risk factor modification Findings: LVEDP: 10 mm Hg There was no transaortic valve pressure gradient Left main: Left main was coming off the left sinus of Valsalva. It was calcified but did not have any obstructive lesion. LAD: LAD was coming off the left main. It provided a large bifurcating diago nal. There was a patent stent in mid LAD (up to 20% in-stent stenosis, diffuse). Distal to the stent, there was a focal 50% lesion in mid LAD (FFR of the lesion was performed and the result was 0.83 and was considered hemodynamically nonsignificant). Other portions of the LAD and branches revealed mild disease. LCX: LCX was coming off the left main. It provided usual number of obtuse marginal. There was jpah-zj-lozymhtu diffuse disease in LCX throughout its course and branches. RCA: RCA was coming off the right sinus of Valsalva. It was a dominant vessel. It provided RPDA/RPLAS. There was patent stent (up to 10% in-stent stenosis, diffuse) in proximal RCA and also in distal RCA (up to 10% in-stent stenosis, diffuse). Other portions of RCA and branches revealed mild diffuse disease. Presentation: Patient is a 64-year-old gentleman presented to the hospital with cardiac arrest. He was found to have ventricular fibrillation. He is known to have systolic heart failure and does have BIV-ICD. BiV-ICD had shocked the patient. Troponin did not increase. After regaining higher brain function, he was sent for cardiac catheterization. Procedure: After obtaining informed consent, the patient was brought to lab head. He was prepped and draped in sterile fashion. Using modified Seldinger technique and micro puncture and under ultrasound guidance, right femoral artery was accessed. After fluoroscopically proving a good access point, the micropuncture sheath was exchanged over a wire to a six [place]uv[place] femoral sheath. A six [place]uv[place] JL4 diagnostic catheter was used to perform left coronary angiography. A six [place] JR4 diagnostic catheter was used to perform right coronary angiography. A six [place]uv[place] pigtail catheter was used to perform left heart catheterization (obtaining pressures). We did recognize the focal 50% lesion in LAD after the stent. We proceeded to perform FFR on the lesion (cathworks). The results of the FFR was 0.83 and was considered hemodynamically nonsignificant. There was no indication for any catheter revascularization. There was no dissection/hematoma/perforation. Total bleeding was less than 15 mL. Patient tolerated procedure with no complication. Right femoral artery access site was managed by deploying an Angio-Seal device. Fluoroscopy time: 6.2 minutes contrast: 48 mL of Visipaque a TR and slender sheath H both vocal the Exalgo SUSHMA WALKER MD Jul 06, 2024 16:30
--- NOTE | 2024-07-06 16:54 | DVHPNRES ---
Progress Note Date Seen: Jul 06, 2024 Resident Creating Document: YVONNE DOMINGUEZ RESIDENT Medical Necessity Reason Pt with a Central, PICC or Fol: Yes The following are medically ne: Central Line, Lynne Catheter Reason for lynne catheter: Strict I&O Subjective Review of Systems Patient examined at bedside, alert and oriented x4 , patient extubated on 07/05, hemodyalisis and blood transfusion pending for tomorrow. CXR: righ lung pleural effusion, getting worse , will evaluate the chance of thoracentesis after HD. LHC , Nonobstructive coronary artery disease, patent stents in mid LAD/proximal RCA/distal RCA, negative FFR of 50% lesion in mid LAD and LVEDP of 10 mm Hg BIPAP pending. Patient reports: No new complaints Review of Systems: HEENT:Normal, CVS:Normal, RESPIRATORY:Abnormal, GI:Normal, :Normal, MSK:Normal, NEURO:Normal Objective vital signs Vital Sign Date Time Temp Pulse Resp B/P (MAP) Pulse Ox O2 Delivery O2 Flow Rate FiO2 07/06/24 14:15 89 30 147/69 07/06/24 14:00 96 Nasal Cannula* 4 36 07/06/24 12:00 98.0 98.0 Total Intake and Output 07/05/24 07/05/24 07/06/24 15:00 23:00 07:00 Intake Total 403.849 ml 200 ml Output Total 50 ml 50 ml Balance 403.849 ml -50 ml 150 ml medications Current Medications Medications Dose Ordered Sig/Colleen Route Start Time Stop Time Status Last Admin Dose Admin Bacitracin/ Polymyxin B Sulfate 1 applic TID OP 06/27/24 22:00 07/06/24 05:06 1 APPLIC Dextrose 50 ml UD PRN IV 06/28/24 08:00 06/29/24 11:58 50 ML Heparin Sodium/ Dextrose 250 ml @ 13.896 mls/ hr Q18H IV 06/28/24 08:00 UNV Norepinephrine Bitartrate 32 mg/ Sodium Chloride 250 ml @ 0.938 mls/ hr Q24H IV 06/28/24 14:30 06/28/24 16:00 9.375 MLS/HR Epoetin Eligio-epbx 10,000 unit MWF@2100 IN 06/29/24 21:00 07/03/24 20:59 10,000 UNIT Artificial Tears 2 drop Q6HP PRN EACHEYE 06/29/24 11:30 Amiodarone HCl 200 mg BID PO 06/30/24 22:00 07/06/24 10:37 200 MG Mexiletine HCl 150 mg Q8HR PO 06/30/24 22:00 07/06/24 14:13 150 MG Acetaminophen 650 mg Q4HP PRN PO 07/03/24 18:00 Albuterol 2.5 mg Q6HPRN PRN NEB 07/05/24 14:30 07/05/24 15:50 2.5 MG Ipratropium [place] 0.5 mg Q6HPRN PRN NEB 07/05/24 14:30 07/05/24 15:50 0.5 MG Morphine Sulfate 1 mg Q4HP PRN IV 07/05/24 15:45 07/06/24 14:15 1 MG Pantoprazole Sodium 40 mg DAILY@0600 PO 07/07/24 06:00 Ondansetron HCl 4 mg Q6HPRN PRN IV 07/06/24 12:45 UNV Hydralazine HCl 10 mg Q6HP PRN IV 07/06/24 13:00 Examination GENERAL: Patient AO X4 ,on NC, awake, able to follow commands. CARDIOVASCULAR: Paced rhythm, no tachycardia, 3/6 systolic murmur LUNGS: Rhonchi in right middle/right lower lobe ABDOMEN: Soft, nontender nondistended, normal bowel sounds no masses or organomegaly EXTREMITIES: skin Warm, well perfused. no rashes. No clubbing, cyanosis, or edema. Left femoral triple-lumen catheter, left IJ Rajesh catheter,AV fistula right arm laboratory and microbiology Laboratory Tests 07/06/24 13:06 07/06/24 10:17 Test 07/06/24 10:17 Range/Units Serum Glucose 117 H 74-106 mg/dL Microbiology Date/Time Source Procedure Growth Status 06/28/24 11:44 Nose MRSA Screen - Final Complete 06/28/24 08:05 Sputum Gram Stain - Final Complete 06/28/24 08:05 Sputum Respiratory Culture - Final Complete 06/28/24 07:55 Blood Blood Culture - Final Staphylococcus epidermidis Complete Problem List/Assessment/Plan Problem List/Assessment/Plan Neurology: # acute hypoxemic encephalopathy due s/p cardiac arrest due to VTach/VFib Patient extubated on 07/05 NC 3L, BIPAP pending Hemodialysis tomorrow Rajesh catheter for hemodialysis, ultrasound-guided per today [facility] Right AV fistula thrombectomy central angioplasty and peripheral venous angioplasty performed Cardiovascular #Acute on chronic systolic heart failure NYHA III-IV #Cardiac arrest due to VT/VF #History of nonischemic cardiomyopathy #History of myocardial infarction #Severe pulmonary hypertension RVSP 75 mmHg #Atrial fibrillation #HFrEF 20% SP AICD/HAIR BLENDER D/pace #CAD status post 3 stents -CT angiography unremarkable -Medtronic interrogation unremarkable -amiodarone po -mexiletine po - LHC :Nonobstructive coronary artery disease, patent stents in mid LAD/proximal RCA/distal RCA, negative FFR of 50% lesion in mid LAD and LVEDP of 10 mm Hg Respiratory: #Acute hypoxemic respiratory failure due to HFrEF 20% exacerbation #Bilateral infiltrates on chest x-ray possible aspiration pneumonia / pulmonary edema #Rightpleural effusion #Pulmonary embolism ruled out - ABG - NC 3L - chest x-rays tomorrow morning - HD tomorrow - blood transusion tomorrow - CT angiography ruled out PE Renal: #ESRD on hemodialysis #Acute kidney injury on ESRD #Hyperkalemia,resolved #Hypoalbuminemia -hemodialysis tomorrow -Rajesh catheter [facility] -Right AV fistula thrombectomy central angioplasty and peripheral venous angioplasty Infectious disease: #Shock likely septic due to suspected UTI/aspiration pneumonia #Leukocytosis #Bilateral infiltrates likely due to possible aspiration pneumonia -resolved -Monitor white blood cell count and lactate Endocrine #History of Type 2 diabetes Hematology: #Severe anemia status post 2 packed red blood cell transfusion - Monitor CBC daily - Blood transfusion tomorrow during HD Case discussed with goals of care discussed with the family,nurse and patient :23 minutes Critical care time excluding procedures was 41 mins Code status: Full code Plan discussed with: Patient, Other (sister) My Orders My Orders Orders - YVONNE DOMINGUEZ RESIDENT Procedure Category Date Status Time Abg W/ Co-Ox RT 07/06/24 Logged 11:02 Pantoprazole Tablet PHA 07/07/24 In Process (Protonix Tablet) 06:00 Transfer Orders XFER 07/06/24 Transmitted 12:05 Obtain Consent For: ORDERS 07/06/24 Transmitted 12:14 Type And Screen BBK 07/06/24 In Process 12:14 Administer Blood LETICIA 07/06/24 In Process Products 12:14 Obtain Consent For LETICIA 07/06/24 In Process Anesthesia 12:14 Ondansetron Hcl PHA 07/06/24 Pending (Zofran) 12:45 Hydralazine Injection PHA 07/06/24 In Process (Apresoline Inject 13:00 BIPAP RT 07/06/24 Logged 13:42 Dietary Evaluation Review Comments: 1 Consider TPN per pharmacy if NPO>7 days. 2.TF Nepro@40ml/hr providing 78g pro, 1699 kcal in 24 hrs, if EN/GI accessible, 3.Renal standard diet if pt is off vent and passing a speech eval. offer Nepro PO supplements 240 ml as tolerated if PO intake is less than 50% Expected Outcomes/Goals: Off Vent, maintain wt, less uremic symptoms with his routine HD course. Date of Service: Jul 06, 2024 Billing Provider: BELTRAN KLEIN MD Common Visit Codes: 53676-[id number] CARE 30-74 MIN YVONNE DOMINGUEZ RESIDENT Jul 06, 2024 16:54 BELTRAN KLEIN MD Jul 07, 2024 14:31
[2024-07-06] MEDS: hydrALAZINE HCL 20 MG/ML VL IV PRN (17:09)
[2024-07-06] MEDS ORDERED: ALBUMIN 25% 100 ML IV PRN (19:30)
[2024-07-06] MEDS: FUROSEMIDE INJECTION 100 MG in SODIUM CHL 0.9% 100 ML IV SCH (19:36)
[2024-07-06] MEDS: ONDANSETRON HCL 4 MG/2 ML VIAL IV PRN (21:10)
[2024-07-07] VITALS (20 sets, daily range): BP systolic 1–149; BP diastolic 51–80; PULSE 68–101; RESP 19–25; TEMP 97.1–98.4; O2SAT 90–98
[2024-07-07] MEDS: PANTOPRAZOLE 40 MG TAB PO SCH (06:00)
--- NOTE | 2024-07-07 06:10 | DVHPN2 ---
Progress Note - Dictate Date Seen: Jul 07, 2024 Medical Necessity Reason Pt with a Central, PICC or Fol: Yes The following are medically ne: Central Line, Lynne Catheter Reason for lynne catheter: Strict I&O vital signs Vital Sign Date Time Temp Pulse Resp B/P (MAP) Pulse Ox O2 Delivery O2 Flow Rate FiO2 07/07/24 05:45 97.5 92 20 130/71 97.5 07/07/24 05:00 91 07/07/24 00:17 Facial BiPAP Mask 30 07/06/24 20:00 3 Total Intake and Output 07/06/24 07/06/24 07/07/24 15:00 23:00 07:00 Intake Total 0 ml Output Total 350 ml Balance 0 ml -350 ml medications Current Medications Medications Dose Ordered Sig/Colleen Route Start Time Stop Time Status Last Admin Dose Admin Bacitracin/ Polymyxin B Sulfate 1 applic TID OP 06/27/24 22:00 07/06/24 22:00 1 APPLIC Dextrose 50 ml UD PRN IV 06/28/24 08:00 06/29/24 11:58 50 ML Heparin Sodium/ Dextrose 250 ml @ 13.896 mls/ hr Q18H IV 06/28/24 08:00 UNV Epoetin Eligio-epbx 10,000 unit MWF@2100 SC 06/29/24 21:00 07/06/24 20:54 10,000 UNIT Artificial Tears 2 drop Q6HP PRN EACHEYE 06/29/24 11:30 Amiodarone HCl 200 mg BID PO 06/30/24 22:00 07/06/24 22:28 200 MG Mexiletine HCl 150 mg Q8HR PO 06/30/24 22:00 07/06/24 22:29 150 MG Acetaminophen 650 mg Q4HP PRN PO 07/03/24 18:00 Albuterol 2.5 mg Q6HPRN PRN NEB 07/05/24 14:30 07/05/24 15:50 2.5 MG Ipratropium [place] 0.5 mg Q6HPRN PRN NEB 07/05/24 14:30 07/05/24 15:50 0.5 MG Morphine Sulfate 1 mg Q4HP PRN IV 07/05/24 15:45 07/07/24 02:57 1 MG Pantoprazole Sodium 40 mg DAILY@0600 PO 07/07/24 06:00 Ondansetron HCl 4 mg Q6HPRN PRN IV 07/06/24 12:45 07/06/24 21:10 4 MG Hydralazine HCl 10 mg Q6HP PRN IV 07/06/24 13:00 07/06/24 17:09 10 MG Furosemide 100 mg/ Sodium Chloride 110 ml @ 22 mls/hr Q5H IV 07/06/24 18:15 07/07/24 04:57 22 MLS/HR Albumin Human 100 ml @ 100 mls/hr SHADY PRN IV 07/06/24 19:30 laboratory and microbiology Laboratory Tests 07/06/24 13:06 07/06/24 10:17 Test 07/06/24 10:17 Range/Units Serum Glucose 117 H 74-106 mg/dL Assessment/Plan Patient is a 64-year-old gentleman who presented on June 27, 2024 for around a week of flu symptoms and upper left swellings. At the time of evaluation, the patient is being managed in unit. He is intubated and not source of history. Information was obtained by reviewing the chart. Reportedly, the patient had missed hemodialysis quite a few times before presentation as he felt sick. It is reported that he did have flu-like symptoms, eye congestion and diarrhea prior to presentation. While being managed on the floor, patient was found to be nonresponsive and was coded. There is no detailed information about the time of the code. There is question about PEA. The patient was intubated and was brought to the unit. Patient was seen by on-call pressure test operator at that point. At this point, we are called for Cardiology as the patient is known to us from before. There is no report of actual chest pain. It is of note that serial troponin has been negative. There is no available telemetry at the time of the episode. Is also of note that the patient does have BiV-ICD from before. Presently, the patient is admitted with septic shock. Patient was in the hospital around a month ago. And was managed for acute on chronic systolic heart failure, pancytopenia and pleural effusions (for which had pleurocentesis). He should have been on Eliquis as outpatient. Extubated. There are signs of conjunctivitis on bilateral eyes. No JVD. Mucosa is pink and wet. No carotid bruit. Lungs: Scattered rhonchi in the lungs is heard. Cardiac: Regular, systolic murmur 3/6 in the apex is heard. The site for ICD implantation looks clean with no erythema/ecchymosis/tenderness. Abdomen is soft. Bowel sound is positive. Extremities reveal 2+ edema bilaterally. AV fistula in the right upper extremity with thrill was observed. 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 Echocardiogram of April 08, 2024 had reported four-chamber dilatation, ejection fraction of 20%, [id number] MR/TR and right ventricular systolic pressure of 75 mm Hg Echocardiogram of May 19, 2024 had reported four-chamber dilatation, ejection fraction of 35%, D shaped septum, pulmonary hypertension, mobile interatrial septum, [id number] aortic insufficiency, mild mitral regurgitation, moderate TR and right ventricular systolic pressure of 80 mm Hg WBC: 2.9 - 2.6 - 2.9 - 4.3 - 5.6 - 3.6 - 4.3 - 2.9 - 3.1 Hemoglobin: 7.2 - 7.2 - 8.0 - 5.5 - 8.8 - 8.7 - 7.4 - 7.5 - 7.8 - 7.7 Platelet: 102 - 111 - 106 - 99 - 89 - 69 - 70 - 52 - 53 Creatinine: 8.29 - 8.51 - 8.5 - 8.17 - 8.63 - 6.77 - 4.80 - 3.86 - 4.84 - 3.81 Potassium: 5.2 - 5.7 - 5.1 - 5.2 - 5.9 - 4.5 - 4.3 - 4.2 - 3.3 - 3.8 - 3.7 Lactic acid: 4.7 - 2.7 Troponin (high sensitive) 40 - 41 - 40 BNP: 2509.04 D-Dimer: 4.72 Digoxin: <0.14 Chest x-ray reported: FINDINGS: LUNGS AND PLEURAL SPACES: See below. HEART: Cardiomegaly with moderate congestion. Left cardiac. MEDIASTINUM: Unremarkable. Normal mediastinal contour. BONES/JOINTS: Unremarkable. No acute fracture. OTHER FINDINGS: . . . .. IMPRESSION: Cardiomegaly with moderate congestion. Repeat chest x-ray reported: Medical devices: The ETT ends above the level of elizabeth at the level of clavicular heads. The enteric tube extends to the stomach. Multi lead left upper chest wall AICD with leads extending to the cardiac chambers. Cardiomediastinal: The heart is moderately enlarged. Pulmonary vasculature is prominent. Atherosclerotic calcification of the aortic arch noted. Lungs: There is interval enlargement of now moderate-sized right pleural effusion and interval development of patchy consolidation in the right middle and left upper lung zone. Small opacities are noted in the left lung base. Diffuse bilateral interstitial opacities are noted. No pneumothorax. Bones/soft tissues: No acute abnormality is noted. Right subclavian vascular stents noted. IMPRESSION: 1. Worsening CHF with moderate right pleural effusion , interval development of extensive bilateral interstitial opacities and large patchy multifocal bilateral consolidations that may represent edema or pneumonia. Recommend clinical and biochemical correlation. Repeat chest xry reported: IMPRESSION: 1. Right basilar atelectasis or pneumonia. 2. Cardiomegaly with mild congestion. Repeat chest xry reported: IMPRESSION: 1. Right basilar atelectasis or pneumonia. Small bilateral pleural effusions. 2. Cardiomegaly with mild congestion. 3. Endotracheal tube now projects 6 cm above level the elizabeth in appropriate position. Repeat chest xry reported: IMPRESSION: 1. Cardiomegaly with pulmonary congestion and edema. Superimposed pneumonia cannot be excluded. 2. Right pleural effusion. Repeat chest xry reported: FINDINGS: VERTEBRAE: Unremarkable. No acute fracture. Normal alignment. No instability. DISC SPACES: No acute findings. No significant narrowing. SOFT TISSUES: Unremarkable. HEART: Left cardiac. Mild congestive heart failure. TUBES, LINES AND DEVICES: Enteric tube tip in the stomach. The endotracheal tube (ETT) is in satisfactory position. OTHER FINDINGS: . ... IMPRESSION: Mild congestive heart failure. Repeat chest xry revealed: IMPRESSION: Cardiomegaly with moderate congestion. Repeat chest xry revealed: IMPRESSION: 1. Mechanical ventilation with tubes and lines as above. 2. Right basilar infiltrate and effusion, improved. 3. Cardiomegaly. Repeat chest xry revealed: IMPRESSION: 1. Biventricular pacemaker in place 2. Bibasilar infiltrates right pleural effusion. Right pleural effusion appears to have slightly increased. This may be secondary to patient positioning. 3. Right subclavian stent in place unchanged from 07/04/2024.. Upper ext (right) arterial duplex reported: IMPRESSION: 1. The right upper extremity brachial-cephalic AVF is thrombosed. 2. The right axillary stent is thrombosed. 3. The arteries of the right upper extremity including subclavian, axillary, brachial, radial and ulnar arteries are patent. CTA of lungs revealed: IMPRESSION: 1. No pulmonary embolism. 2. Large right and small left pleural effusion with associated bilateral atelectasis and consolidation. Patchy ground-glass opacities could represent pulmonary edema or an infectious / inflammatory process. Mediastinal lymphadenopathy similar to prior. Clinical correlation and continued follow-up is recommended. Overall appearance is worse compared to prior exam. CT of head reported: 1. No acute intracranial pathology. Cortical atrophy greater on the left. EKG revealed paced rhythm Telemetry revealed paced rhythm (it is of note that telemetry rhythm at the time of the code is not available to revealed) Echocardiogram reported: limited study. lvef 20% by visual estimate. postop septum. septum flattening noted. RV enlarged with dysfunction. biatrial enlargement. valves not assessed Medtronic ICD interrogation revealed: Remaining longevity of battery: 3.8 years; DDDR: 60/130; Pacing impedance: A 380 /RV 323/LV 304 Ohms; Shock impedance: RV 29 Ohms; Capture threshold: Atrial 0.5/RV 0.875 volts at 0.4 milliseconds; Program sensitivity: Atrial 0.3/RV 0.3 mV; Episodes: VT/VF: 1 resulting in shock; Changes performed: VTE detection interval was changed from 270 millisecond to 320 millisecond/VT detection interval was changed from 330 millisecond to 400 milliseconds Cardiac cath performed: Diagnosis: Nonobstructive coronary artery disease; Patent stents in mid LAD/proximal RCA/distal RCA; Negative FFR of 50% lesion in mid LAD; LVEDP of 10 mm Hg; Cardiac suggestions for management: Optimized medical therapy; Guideline directed medical therapy for systolic heart failure; Lifestyle and risk factor modification Patient is a 64-year-old gentleman who presented with flu-like symptoms, but later coded in the floor. No tele rhythm of the time of the code was available to review (at first). Reportedly there was PA. Stable serial high sensitive troponin is against acute coronary syndrome. Patient does have baseline history of heart failure and pulmonary hypertension. He also has Bi V ICD (interrogation revealed episode of v-fib/v-tach resulting in Defibrillation). Does have baseline history of noncompliance to medication/hemodialysis. Does have baseline history of pancytopenia and is found to have significant anemia. With respiratory failure and on vent support. Case discussed with Electrophysiology (Dr Tamayo). Acute arrest Rule out PA Questionable encephalopathy, anoxic versus toxic? Recent URI Septic shock s/p Defibrillation secondary to V-fib/Vtach Encephalopathy Baseline pulmonary hypertension Baseline systolic heart failure Status post Bi V ICD End-stage renal disease, Noncompliant with medication, followups and hemodialysis Pancytopenia History of GI bleeding Right pleural effusion s/p Right AV fistula thrombectomy central angioplasty and peripheral venous angioplasty by Vascular surgeon Cardiac suggestion for management: Manage in telemetry Aggressive hemodialysis Follow-up electrolytes and kidney function tests and correct abnormalities Continue aspirin On Amiodarone and Mexiletine Optimized medical therapy; Guideline directed medical therapy for systolic heart failure Further evaluation and management depends on the above and clinical course Further evaluation and management also depends on the regaining of high level of consciousness/brain function Hematology evaluation for pancytopenia suggested Pulmonary follow-up A total of 55 minutes was spent reviewing the patient record, examining the patient, making a diagnostic and therapeutic plan, discussing this plan with medical personnel, following up on diagnostic studies and following the patient for clinical stability excluding any and all procedures. At least 50% of this time was spent in direct, [id number] contact. Thank you for allowing me to participate in this patient's care. Further recommendations will depend on patient's clinical course. Please do not hesitate to contact me if you have any questions or concerns. This medical document was created using electronic medical record system with [employer] dictation system. Although this document has been carefully reviewed, there may still be some phonetic and typographical errors. These areas are purely typographical due to the imperfection of the software programs, and do not reflect any compromise in the patient's medical care. Dietary Evaluation Review Comments: 1 Consider TPN per pharmacy if NPO>7 days. 2.TF Nepro@40ml/hr providing 78g pro, 1699 kcal in 24 hrs, if EN/GI accessible, 3.Renal standard diet if pt is off vent and passing a speech eval. offer Nepro PO supplements 240 ml as tolerated if PO intake is less than 50% Expected Outcomes/Goals: Off Vent, maintain wt, less uremic symptoms with his routine HD course. Plan discussed with: Patient, Other (nurse) SUSHMA WALKER MD Jul 07, 2024 06:10
[2024-07-07 07:43] LABS: Basophils # (auto) 0 10 ^3/uL (0-0.2); Eosinophils # (auto) 0.5 10 ^3/uL (0-0.8); Hemoglobin 7.7 g/dL (13.5-17.5); Lymphocytes # (auto) 0.2 10 ^3/uL (0.4-5.4); Lymphocytes % (auto) 4.6 % (10.0-50.0); Neutrophils # (auto) 3.7 10 ^3/uL (1.6-8.6); Platelet Count (auto) 87 10^3/uL (140-450); Red Blood Cells 2.41 10^6/uL (4.5-5.90)
[2024-07-07] MEDS: HEPARIN 1,000 UNITS/ml 1ML VIAL IV ONE (07:45)
[2024-07-07 07:46] LABS: Eosinophils % (auto) 9.5 % (0.0-7.0); Hematocrit 23.9 % (41.0-53.0); Mean Corpuscular Hemoglobin 32.2 pg (28.0-32.0); Mean Corpuscular Hgb Conc. 32.4 g/dL (32.0-36.0); Mean Corpuscular Volume 99.3 fL (80.0-100.0); Monocytes # (auto) 0.5 10 ^3/uL (0-1.3); Neutrophils % (auto) 73.9 % (37.0-80.0); Nucleated Red Blood Cells % 0.2 %; Red Cell Distribution Width 19.8 % (11.8-14.3)
[2024-07-07] MEDS: SODIUM CHL 0.9% 1000 ML BAG XX ONE (08:00)
[2024-07-07 08:18] LABS: Anion Gap 12 (5-15); Calcium 9.8 mg/dL (8.7-10.4); Carbon Dioxide 25 mmol/L (20-31)
[2024-07-07 08:23] LABS: BUN/Creatinine Ratio 5.9 (10.0-20.0); Glucose 85 mg/dL (74-106)
[2024-07-07 08:30] LABS: Blood Urea Nitrogen 35 mg/dL (9-23); Chloride 100 mmol/L (98-107); Phosphorus 7.3 mg/dL (2.4-5.1); Potassium 4.7 mmol/L (3.5-5.1); Sodium 137 mmol/L (136-145)
[2024-07-07 09:05] LABS: % Iron Saturation 32.4 % (20-55)
--- NOTE | 2024-07-07 10:30 | DVH ---
CHEST RADIOGRAPH Indication: pleural effusion Technique: Single frontal view of the chest was obtained Comparison: XY CHEST PORTABLE on DOS: 07/06/24, XY CHEST PORTABLE on DOS: 07/05/24, XY CHEST PORTABLE o n DOS: 07/04/24, XY CHEST PORTABLE on DOS: 07/03/24, XY CHEST PORTABLE on DOS: 07/02/24, XY CHEST PORTAB LE on DOS: 07/06/24 FINDINGS: Lines and Tubes: Left chest wall AICD. Left central venous catheter in satisfactory position. Lungs: Patchy bilateral airspace opacities. Pleura: Small bilateral pleural effusions, [id number]. No pneumothorax. Cardiomediastinal contours: Unremarkable Bones: Unremarkable IMPRESSION: Unchanged fluid overload.
[2024-07-07 10:34] LABS: Base Excess -0.5 mmol/L (-2.0-3.0)
--- NOTE | 2024-07-07 12:16 | CONS ---
Pharmacy Clinical Information: CQM HF (MISSING EBBB). Patient had low BP and low HR during hospital stay; c urrent BP is intermittently low. Once HR and BP is stable, please consider adding an evidence based beta serena. ZAMZAM MCKEON PHARMACIST Jul 07, 2024 12:16
[2024-07-07 12:35] LABS: Base Excess 0.5 mmol/L (-2.0-3.0)
--- NOTE | 2024-07-07 12:41 | DVHPN2 ---
Progress Note Date Seen: Jul 07, 2024 Medical Necessity Reason Pt with a Central, PICC or Fol: Yes The following are medically ne: Central Line, Lynne Catheter Reason for lynne catheter: Strict I&O Objective vital signs Vital Sign Date Time Temp Pulse Resp B/P (MAP) Pulse Ox O2 Delivery O2 Flow Rate FiO2 07/07/24 10:48 87 97 Facial BiPAP Mask 30 07/07/24 10:18 164/78 07/07/24 09:00 97.4 19 97.4 07/07/24 08:46 4.0 Total Intake and Output 07/06/24 07/06/24 07/07/24 15:00 23:00 07:00 Intake Total 0 ml 200 ml Output Total 350 ml Balance 0 ml -150 ml medications Current Medications Medications Dose Ordered Sig/Colleen Route Start Time Stop Time Status Last Admin Dose Admin Bacitracin/ Polymyxin B Sulfate 1 applic TID OP 06/27/24 22:00 07/06/24 22:00 1 APPLIC Dextrose 50 ml UD PRN IV 06/28/24 08:00 06/29/24 11:58 50 ML Heparin Sodium/ Dextrose 250 ml @ 13.896 mls/ hr Q18H IV 06/28/24 08:00 UNV Epoetin Eligio-epbx 10,000 unit MWF@2100 SC 06/29/24 21:00 07/06/24 20:54 10,000 UNIT Artificial Tears 2 drop Q6HP PRN EACHEYE 06/29/24 11:30 Amiodarone HCl 200 mg BID PO 06/30/24 22:00 07/07/24 10:18 200 MG Mexiletine HCl 150 mg Q8HR PO 06/30/24 22:00 07/06/24 22:29 150 MG Acetaminophen 650 mg Q4HP PRN PO 07/03/24 18:00 Albuterol 2.5 mg Q6HPRN PRN NEB 07/05/24 14:30 07/05/24 15:50 2.5 MG Ipratropium Flasher 0.5 mg Q6HPRN PRN NEB 07/05/24 14:30 07/05/24 15:50 0.5 MG Morphine Sulfate 1 mg Q4HP PRN IV 07/05/24 15:45 07/07/24 02:57 1 MG Pantoprazole Sodium 40 mg DAILY@0600 PO 07/07/24 06:00 Ondansetron HCl 4 mg Q6HPRN PRN IV 07/06/24 12:45 07/06/24 21:10 4 MG Hydralazine HCl 10 mg Q6HP PRN IV 07/06/24 13:00 07/06/24 17:09 10 MG Furosemide 100 mg/ Sodium Chloride 110 ml @ 22 mls/hr Q5H IV 07/06/24 18:15 07/07/24 10:18 22 MLS/HR Albumin Human 100 ml @ 100 mls/hr SHADY PRN IV 07/06/24 19:30 Examination: GENERAL:Abnormal, LUNGS:Abnormal, CVS:Abnormal laboratory and microbiology Laboratory Tests 07/07/24 05:16 Test 07/07/24 05:16 Range/Units Serum Glucose 85 74-106 mg/dL Microbiology Date/Time Source Procedure Growth Status 06/28/24 11:44 Nose MRSA Screen - Final Complete 06/28/24 08:05 Sputum Gram Stain - Final Complete 06/28/24 08:05 Sputum Respiratory Culture - Final Complete 06/28/24 07:55 Blood Blood Culture - Final Staphylococcus epidermidis Complete Problem List/Assessment/Plan Problem List/Assessment/Plan ESRD s/p cardiac arrest Pleural effusions CHF exacerbation Hx of Afib Hx of [place] HTN anemia due to CKD thrombosed Right AVF s/p surgical revision HD epogen 3x a week cardiology next HD tomorrow using AVF, remove temp cath if tolerates well Plan discussed with: Patient My Orders My Orders Orders - JOSE GUADALUPE ELLIOTT MD Procedure Category Date Status Time Sodium Chl 0.9% PHA 07/06/24 In Process (So... W/Furosemide 18:15 Basic Metabolic Panel LAB 07/08/24 Verified 05:00 Basic Metabolic Panel LAB 07/10/24 Verified 05:00 Hemodialysis Orders ORDERS 07/07/24 Transmitted 07:00 Dialysis Nursing LETICIA 07/07/24 In Process Message 07:00 Document Fluid Input LETICIA 07/07/24 In Process And Outpu 07:00 Epoetin Eligio-Epbx PHA 07/07/24 In Process (Retacrit) 21:00 Albumin 25% (Albutein) PHA 07/06/24 In Process 19:30 Communication Order ORDERS 07/06/24 Transmitted 19:31 Dietary Evaluation Review Comments: 1 Consider TPN per pharmacy if NPO>7 days. 2.TF Nepro@40ml/hr providing 78g pro, 1699 kcal in 24 hrs, if EN/GI accessible, 3.Renal standard diet if pt is off vent and passing a speech eval. offer Nepro PO supplements 240 ml as tolerated if PO intake is less than 50% Expected Outcomes/Goals: Off Vent, maintain wt, less uremic symptoms with his routine HD course. JOSE GUADALUPE ELLIOTT MD Jul 07, 2024 12:41
--- NOTE | 2024-07-07 16:13 | DVH ---
EXAM: US CHEST ULTRASOUND Clinical History: FLUID CHECK FOR POSSIBLE THORACENTESIS Comparison: US CHEST ULTRASOUND on DOS: 05/18/24 Technique: Grayscale ultrasound of the chest performed with color Doppler and spectral/pulsed wavefor m as indicated. Findings/Impression: Moderate to large right pleural effusion. No left pleural effusion.
--- NOTE | 2024-07-07 16:39 | DVHPNRES ---
Progress Note Date Seen: Jul 07, 2024 Resident Creating Document: YVONNE DOMINGUEZ RESIDENT Medical Necessity Reason Pt with a Central, PICC or Fol: Yes The following are medically ne: Central Line, Lynne Catheter Reason for lynne catheter: Strict I&O Subjective Review of Systems Patient examined at bedside, alert and oriented on time, person but not on place , patient extubated on 07/05, hemodyalisis and blood transfusion was done today in the morning. CXR still showing righ lung pleural effusion, getting worse , patient will need thoracentesis, radiology consult was ordered. Patient is currently on BiPAP, ABG showed respiratory acidosis with a pH on 7.26 and pCO2 62.5 for which the BiPAP settings were adjusted until IPAP 15 and EPAP 5 and a new ABG was taken 1 hour after, new ABG showed pCO2 on 50 and pH on 7.34. Patient's BiPAP was readjusted to 12: 5. Swallow evaluation ABG and chest x-ray for tomorrow in the morning LHC was done on July 06 and showed Nonobstructive coronary artery disease, patent stents in mid LAD/proximal RCA/distal RCA, negative FFR of 50% lesion in mid LAD and LVEDP of 10 mm Hg. Patient reports: No new complaints Changes from previous H/P or p: No Changes Review of Systems: HEENT:Normal, CVS:Normal, RESPIRATORY:Abnormal, GI:Normal, :Normal, MSK:Abnormal Objective vital signs Vital Sign Date Time Temp Pulse Resp B/P (MAP) Pulse Ox O2 Delivery O2 Flow Rate FiO2 07/07/24 15:48 111/51 07/07/24 15:31 95 Nasal Cannula 4.0 07/07/24 15:31 36 07/07/24 13:26 83 07/07/24 13:00 98.4 20 98.4 Total Intake and Output 07/06/24 07/06/24 07/07/24 15:00 23:00 07:00 Intake Total 0 ml 200 ml Output Total 350 ml Balance 0 ml -150 ml medications Current Medications Medications Dose Ordered Sig/Colleen Route Start Time Stop Time Status Last Admin Dose Admin Bacitracin/ Polymyxin B Sulfate 1 applic TID OP 06/27/24 22:00 07/07/24 15:52 1 APPLIC Dextrose 50 ml UD PRN IV 06/28/24 08:00 06/29/24 11:58 50 ML Heparin Sodium/ Dextrose 250 ml @ 13.896 mls/ hr Q18H IV 06/28/24 08:00 UNV Epoetin Eligio-epbx 10,000 unit MWF@2100 SC 06/29/24 21:00 07/06/24 20:54 10,000 UNIT Artificial Tears 2 drop Q6HP PRN EACHEYE 06/29/24 11:30 Amiodarone HCl 200 mg BID PO 06/30/24 22:00 07/07/24 10:18 200 MG Mexiletine HCl 150 mg Q8HR PO 06/30/24 22:00 07/07/24 15:48 150 MG Acetaminophen 650 mg Q4HP PRN PO 07/03/24 18:00 Albuterol 2.5 mg Q6HPRN PRN NEB 07/05/24 14:30 07/05/24 15:50 2.5 MG Ipratropium Sullivan 0.5 mg Q6HPRN PRN NEB 07/05/24 14:30 07/05/24 15:50 0.5 MG Morphine Sulfate 1 mg Q4HP PRN IV 07/05/24 15:45 07/07/24 02:57 1 MG Pantoprazole Sodium 40 mg DAILY@0600 PO 07/07/24 06:00 Ondansetron HCl 4 mg Q6HPRN PRN IV 07/06/24 12:45 07/06/24 21:10 4 MG Hydralazine HCl 10 mg Q6HP PRN IV 07/06/24 13:00 07/06/24 17:09 10 MG Furosemide 100 mg/ Sodium Chloride 110 ml @ 22 mls/hr Q5H IV 07/06/24 18:15 07/07/24 15:48 22 MLS/HR Albumin Human 100 ml @ 100 mls/hr SHADY PRN IV 07/06/24 19:30 Examination Examination General Appearance: Alert, Oriented X2, moderate acute distress, slightly disoriented. Respiratory: Clear to auscultation, absent breath sounds in the right lower lung Cardiovascular: Regular rate, Normal S1, Normal S2 Extremities: No cyanosis, No edema, Normal pulses, No tenderness/swelling Skin: No rashes, No breakdown Neuro: Normal speech, Strength at 3/5 X4 ext, Normal tone, Sensation intact, Reflexes 2+ laboratory and microbiology Laboratory Tests 07/07/24 05:16 Test 07/07/24 05:16 Range/Units Serum Glucose 85 74-106 mg/dL Microbiology Date/Time Source Procedure Growth Status 06/28/24 11:44 Nose MRSA Screen - Final Complete 06/28/24 08:05 Sputum Gram Stain - Final Complete 06/28/24 08:05 Sputum Respiratory Culture - Final Complete 06/28/24 07:55 Blood Blood Culture - Final Staphylococcus epidermidis Complete Problem List/Assessment/Plan Problem List/Assessment/Plan Neurology: # acute hypoxemic encephalopathy due s/p cardiac arrest due to VTach/VFib Patient extubated on 07/05 Currently on BiPAP IPAP 12 and EPAP 5 Hemodialysis was done today. H&H Rajesh catheter for hemodialysis, ultrasound-guided per today [facility] Right AV fistula thrombectomy central angioplasty and peripheral venous angioplasty performed Cardiovascular #Acute on chronic systolic heart failure NYHA III-IV #Cardiac arrest due to VT/VF #History of nonischemic cardiomyopathy #History of myocardial infarction #Severe pulmonary hypertension RVSP 75 mmHg #Atrial fibrillation #HFrEF 20% SP AICD/STUDENT DEVELOPMENT DEAN D/pace #CAD status post 3 stents -CT angiography unremarkable -[employer] interrogation unremarkable -amiodarone po -mexiletine po - LHC :Nonobstructive coronary artery disease, patent stents in mid LAD/proximal RCA/distal RCA, negative FFR of 50% lesion in mid LAD and LVEDP of 10 mm Hg Respiratory: #Acute hypoxemic respiratory failure due to HFrEF 20% exacerbation #Bilateral infiltrates on chest x-ray possible aspiration pneumonia / pulmonary edema #Rightpleural effusion #Pulmonary embolism ruled out - ABG - BiPAP - chest x-rays tomorrow morning - thoracentesis -Radiology consult -swallow evaluation Renal: #ESRD on hemodialysis #Acute kidney injury on ESRD #Hyperkalemia,resolved #Hypoalbuminemia -hemodialysis was done today -Rajesh catheter [facility] -Right AV fistula thrombectomy central angioplasty and peripheral venous angioplasty Infectious disease: #Shock likely septic due to suspected UTI/aspiration pneumonia #Leukocytosis #Bilateral infiltrates likely due to possible aspiration pneumonia -resolved -daily CBC and CMP Endocrine #History of Type 2 diabetes Hematology: #Severe anemia status post 2 packed red blood cell transfusion - Monitor CBC daily -H&H Case discussed with Dr.Trevin Critical care time spent: :43 minutes Code status: Full code Plan discussed with: Patient, Other (sister) My Orders My Orders Orders - YVONNE DOMINGUEZ RESIDENT Procedure Category Date Status Time Chest Portable XY 07/07/24 Resulted 04:00 Abg W/ Co-Ox RT 07/07/24 Logged 04:00 BIPAP RT 07/07/24 Logged 10:56 Abg W/ Co-Ox RT 07/07/24 Logged 12:00 BIPAP RT 07/07/24 Logged 13:15 * Radiologist Consult CONS 07/07/24 Transmitted 15:23 Hemoglobin & LAB 07/07/24 Logged Hematocrit 15:31 Complete Blood Count LAB 07/08/24 Verified 04:00 Comprehensive LAB 07/08/24 Verified Metabolic Panel 04:00 Chest Portable XY 07/08/24 Logged 04:00 Abg W/ Co-Ox RT 07/08/24 Logged 04:00 * Swallow Request ST 07/07/24 Transmitted 15:34 Dietary Evaluation Review Comments: 1 Consider TPN per pharmacy if NPO>7 days. 2.TF Nepro@40ml/hr providing 78g pro, 1699 kcal in 24 hrs, if EN/GI accessible, 3.Renal standard diet if pt is off vent and passing a speech eval. offer Nepro PO supplements 240 ml as tolerated if PO intake is less than 50% Expected Outcomes/Goals: Off Vent, maintain wt, less uremic symptoms with his routine HD course. Date of Service: Jul 07, 2024 Billing Provider: BELTRAN KLEIN MD Common Visit Codes: [id number] CARE 30-74 MIN YVONNE DOMINGUEZ RESIDENT Jul 07, 2024 16:39 BELTRAN KLEIN MD Jul 08, 2024 15:34
[2024-07-07 19:27] LABS: Hematocrit 29.5 % (41.0-53.0); Hemoglobin 9.6 g/dL (13.5-17.5)
[2024-07-07] MEDS: EPOETIN ALFA-EPBX 10,000 UNIT/1ML VIAL SC ONE (21:05)
[2024-07-08] VITALS (13 sets, daily range): BP systolic 121–146; BP diastolic 68–78; PULSE 73–94; RESP 18–19; TEMP 97.3–98.1; O2SAT 93–100
--- NOTE | 2024-07-08 05:13 | DVH ---
CHEST RADIOGRAPH Indication: pleural effusion Technique: Single frontal view of the chest was obtained COMPARISON: XY CHEST PORTABLE on DOS: 07/07/24, XY CHEST PORTABLE on DOS: 07/06/24, XY CHEST PORTABLE o n DOS: 07/05/24, XY CHEST PORTABLE on DOS: 07/04/24, XY CHEST PORTABLE on DOS: 07/03/24 FINDINGS: Lines and Tubes: Left chest wall AICD. Left central venous catheter in satisfactory position. Lungs: Mild congestion Pleura: Small right pleural effusion. No pneumothorax. Cardiomediastinal contours: Cardiomegaly Bones: Unremarkable IMPRESSION: Small right pleural effusion.
[2024-07-08 06:05] LABS: Hemoglobin 9.7 g/dL (13.5-17.5); Red Blood Cells 3.12 10^6/uL (4.5-5.90)
[2024-07-08 06:08] LABS: Hematocrit 31.2 % (41.0-53.0); Mean Corpuscular Hemoglobin 31.1 pg (28.0-32.0); Mean Corpuscular Hgb Conc. 31.1 g/dL (32.0-36.0); Mean Corpuscular Volume 99.8 fL (80.0-100.0); Platelet Count (auto) 131 10^3/uL (140-450); White Blood Cell 6.3 10^3/uL (4.4-10.8)
[2024-07-08 06:31] LABS: Red Cell Distribution Width 20.2 % (11.8-14.3)
[2024-07-08 06:32] LABS: Basophils % (manual) 0 (0.0-2.0); Blast Cells 0; Metamyelocytes % 0; Myelocytes % 0; Promyelocytes % 0; Reactive Lymphocytes 0
[2024-07-08 06:39] LABS: Albumin 4.1 g/dL (3.2-4.8); Alkaline Phosphatase 66 U/L (46-116); Anion Gap 13 (5-15); BUN/Creatinine Ratio 5.9 (10.0-20.0); Calcium 10.3 mg/dL (8.7-10.4); Carbon Dioxide 27 mmol/L (20-31); Chloride 98 mmol/L (98-107); Potassium 4.9 mmol/L (3.5-5.1); Sodium 138 mmol/L (136-145)
[2024-07-08 06:40] LABS: Bilirubin, Total 0.8 mg/dL (0.2-1.0); Total Protein 6.9 g/dL (5.7-8.2)
[2024-07-08 06:42] LABS: Alanine Aminotransferase 78 U/L (7-40); Aspartate Aminotransferase 187 U/L (13-40); Blood Urea Nitrogen 30 mg/dL (9-23); Glucose 113 mg/dL (74-106)
--- NOTE | 2024-07-08 06:53 | DVHPN2 ---
Progress Note - Dictate Date Seen: Jul 08, 2024 Medical Necessity Reason Pt with a Central, PICC or Fol: Yes The following are medically ne: Central Line, Lynne Catheter Reason for lynne catheter: Strict I&O vital signs Vital Sign Date Time Temp Pulse Resp B/P (MAP) Pulse Ox O2 Delivery O2 Flow Rate FiO2 07/08/24 05:00 97.5 92 19 146/76 (99) 95 97.5 07/07/24 23:57 Nasal Cannula 4.0 07/07/24 23:57 36 Total Intake and Output 07/07/24 07/07/24 07/08/24 15:00 23:00 07:00 Intake Total 110 ml 310 ml Output Total 300 ml Balance 110 ml 10 ml medications Current Medications Medications Dose Ordered Sig/Colleen Route Start Time Stop Time Status Last Admin Dose Admin Bacitracin/ Polymyxin B Sulfate 1 applic TID OP 06/27/24 22:00 07/08/24 05:25 1 APPLIC Dextrose 50 ml UD PRN IV 06/28/24 08:00 06/29/24 11:58 50 ML Heparin Sodium/ Dextrose 250 ml @ 13.896 mls/ hr Q18H IV 06/28/24 08:00 UNV Epoetin Eligio-epbx 10,000 unit MWF@2100 SC 06/29/24 21:00 07/06/24 20:54 10,000 UNIT Artificial Tears 2 drop Q6HP PRN EACHEYE 06/29/24 11:30 Amiodarone HCl 200 mg BID PO 06/30/24 22:00 07/07/24 21:03 200 MG Mexiletine HCl 150 mg Q8HR PO 06/30/24 22:00 07/08/24 05:25 150 MG Acetaminophen 650 mg Q4HP PRN PO 07/03/24 18:00 Albuterol 2.5 mg Q6HPRN PRN NEB 07/05/24 14:30 07/05/24 15:50 2.5 MG Ipratropium [place] 0.5 mg Q6HPRN PRN NEB 07/05/24 14:30 07/05/24 15:50 0.5 MG Morphine Sulfate 1 mg Q4HP PRN IV 07/05/24 15:45 07/07/24 02:57 1 MG Pantoprazole Sodium 40 mg DAILY@0600 PO 07/07/24 06:00 07/08/24 05:25 40 MG Ondansetron HCl 4 mg Q6HPRN PRN IV 07/06/24 12:45 07/06/24 21:10 4 MG Hydralazine HCl 10 mg Q6HP PRN IV 07/06/24 13:00 07/06/24 17:09 10 MG Albumin Human 100 ml @ 100 mls/hr SHADY PRN IV 07/06/24 19:30 laboratory and microbiology Laboratory Tests 07/08/24 05:12 Test 07/08/24 05:12 Range/Units Serum Glucose 113 H 74-106 mg/dL Assessment/Plan Patient is a 64-year-old gentleman who presented on June 27, 2024 for around a week of flu symptoms and upper left swellings. At the time of evaluation, the patient is being managed in unit. He is intubated and not source of history. Information was obtained by reviewing the chart. Reportedly, the patient had missed hemodialysis quite a few times before presentation as he felt sick. It is reported that he did have flu-like symptoms, eye congestion and diarrhea prior to presentation. While being managed on the floor, patient was found to be nonresponsive and was coded. There is no detailed information about the time of the code. There is question about PEA. The patient was intubated and was brought to the unit. Patient was seen by on-call life insurance sales agent at that point. At this point, we are called for Cardiology as the patient is known to us from before. There is no report of actual chest pain. It is of note that serial troponin has been negative. There is no available telemetry at the time of the episode. Is also of note that the patient does have BiV-ICD from before. Presently, the patient is admitted with septic shock. Patient was in the hospital around a month ago. And was managed for acute on chronic systolic heart failure, pancytopenia and pleural effusions (for which had pleurocentesis). He should have been on Eliquis as outpatient. Extubated. There are signs of conjunctivitis on bilateral eyes. No JVD. Mucosa is pink and wet. No carotid bruit. Lungs: Scattered rhonchi in the lungs is heard. Cardiac: Regular, systolic murmur 3/6 in the apex is heard. The site for ICD implantation looks clean with no erythema/ecchymosis/tenderness. Abdomen is soft. Bowel sound is positive. Extremities reveal 2+ edema bilaterally. AV fistula in the right upper extremity with thrill was observed. 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 Echocardiogram of April 08, 2024 had reported four-chamber dilatation, ejection fraction of 20%, [id number]-[id number] MR/TR and right ventricular systolic pressure of 75 mm Hg Echocardiogram of May 19, 2024 had reported four-chamber dilatation, ejection fraction of 35%, D shaped septum, pulmonary hypertension, mobile interatrial septum, [id number]-[id number] aortic insufficiency, mild mitral regurgitation, moderate TR and right ventricular systolic pressure of 80 mm Hg Hemoglobin: 7.2 - 7.2 - 8.0 - 5.5 - 8.8 - 8.7 - 7.4 - 7.5 - 7.8 - 7.7 - 7.4 - 7.5 - 7.7 - 9.6 - 9.7 Platelet: 102 - 111 - 106 - 99 - 89 - 69 - 70 - 52 - 53 - 68 - 87 - 131 Creatinine: 8.29 - 8.51 - 8.5 - 8.17 - 8.63 - 6.77 - 4.80 - 3.86 - 4.84 - 3.81 - 5.10 - 5.98 - 5.08 Potassium: 5.2 - 5.7 - 5.1 - 5.2 - 5.9 - 4.5 - 4.3 - 4.2 - 3.3 - 3.8 - 3.7 - 4.2 - 4.7 - 4.9 Lactic acid: 4.7 - 2.7 Troponin (high sensitive) 40 - 41 - 40 BNP: 2509.04 D-Dimer: 4.72 Digoxin: <0.14 Chest x-ray reported: FINDINGS: LUNGS AND PLEURAL SPACES: See below. HEART: Cardiomegaly with moderate congestion. Left cardiac. MEDIASTINUM: Unremarkable. Normal mediastinal contour. BONES/JOINTS: Unremarkable. No acute fracture. OTHER FINDINGS: . . . .. IMPRESSION: Cardiomegaly with moderate congestion. Repeat chest x-ray reported: Medical devices: The ETT ends above the level of elizabeth at the level of clavicular heads. The enteric tube extends to the stomach. Multi lead left upper chest wall AICD with leads extending to the cardiac chambers. Cardiomediastinal: The heart is moderately enlarged. Pulmonary vasculature is prominent. Atherosclerotic calcification of the aortic arch noted. Lungs: There is interval enlargement of now moderate-sized right pleural effusion and interval development of patchy consolidation in the right middle and left upper lung zone. Small opacities are noted in the left lung base. Diffuse bilateral interstitial opacities are noted. No pneumothorax. Bones/soft tissues: No acute abnormality is noted. Right subclavian vascular stents noted. IMPRESSION: 1. Worsening CHF with moderate right pleural effusion , interval development of extensive bilateral interstitial opacities and large patchy multifocal bilateral consolidations that may represent edema or pneumonia. Recommend clinical and biochemical correlation. Repeat chest xry reported: IMPRESSION: 1. Right basilar atelectasis or pneumonia. 2. Cardiomegaly with mild congestion. Repeat chest xry reported: IMPRESSION: 1. Right basilar atelectasis or pneumonia. Small bilateral pleural effusions. 2. Cardiomegaly with mild congestion. 3. Endotracheal tube now projects 6 cm above level the elizabeth in appropriate position. Repeat chest xry reported: IMPRESSION: 1. Cardiomegaly with pulmonary congestion and edema. Superimposed pneumonia cannot be excluded. 2. Right pleural effusion. Repeat chest xry reported: FINDINGS: VERTEBRAE: Unremarkable. No acute fracture. Normal alignment. No instability. DISC SPACES: No acute findings. No significant narrowing. SOFT TISSUES: Unremarkable. HEART: Left cardiac. Mild congestive heart failure. TUBES, LINES AND DEVICES: Enteric tube tip in the stomach. The endotracheal tube (ETT) is in satisfactory position. OTHER FINDINGS: . ... IMPRESSION: Mild congestive heart failure. Repeat chest xry revealed: IMPRESSION: Cardiomegaly with moderate congestion. Repeat chest xry revealed: IMPRESSION: 1. Mechanical ventilation with tubes and lines as above. 2. Right basilar infiltrate and effusion, improved. 3. Cardiomegaly. Repeat chest xry revealed: IMPRESSION: 1. Biventricular pacemaker in place 2. Bibasilar infiltrates right pleural effusion. Right pleural effusion appears to have slightly increased. This may be secondary to patient positioning. 3. Right subclavian stent in place unchanged from 07/04/2024.. Repeat chest xry revealed: Lines and Tubes: Left chest wall AICD. Left central venous catheter in satisfactory position. Lungs: Patchy bilateral airspace opacities. Pleura: Small bilateral pleural effusions, eynpy-bwrzvbj-kjmb-left. No pneumothorax. Cardiomediastinal contours: Unremarkable Bones: Unremarkable IMPRESSION: Unchanged fluid overload. Repeat chest xry revealed: Lines and Tubes: Left chest wall AICD. Left central venous catheter in satisfactory position. Lungs: Mild congestion Pleura: Small right pleural effusion. No pneumothorax. Cardiomediastinal contours: Cardiomegaly Bones: Unremarkable IMPRESSION: Small right pleural effusion. Chest ultrasound revealed: Findings/Impression: Moderate to large right pleural effusion. No left pleural effusion. Upper ext (right) arterial duplex reported: IMPRESSION: 1. The right upper extremity brachial-cephalic AVF is thrombosed. 2. The right axillary stent is thrombosed. 3. The arteries of the right upper extremity including subclavian, axillary, brachial, radial and ulnar arteries are patent. CTA of lungs revealed: IMPRESSION: 1. No pulmonary embolism. 2. Large right and small left pleural effusion with associated bilateral atelectasis and consolidation. Patchy ground-glass opacities could represent pulmonary edema or an infectious / inflammatory process. Mediastinal lymphadenopathy similar to prior. Clinical correlation and continued follow-up is recommended. Overall appearance is worse compared to prior exam. CT of head reported: 1. No acute intracranial pathology. Cortical atrophy greater on the left. EKG revealed paced rhythm Telemetry revealed paced rhythm (it is of note that telemetry rhythm at the time of the code is not available to revealed) Echocardiogram reported: limited study. lvef 20% by visual estimate. postop septum. septum flattening noted. RV enlarged with dysfunction. biatrial enlargement. valves not assessed Medtronic ICD interrogation revealed: Remaining longevity of battery: 3.8 years; DDDR: 60/130; Pacing impedance: A 380 /RV 323/LV 304 Ohms; Shock impedance: RV 29 Ohms; Capture threshold: Atrial 0.5/RV 0.875 volts at 0.4 milliseconds; Program sensitivity: Atrial 0.3/RV 0.3 mV; Episodes: VT/VF: 1 resulting in shock; Changes performed: VTE detection interval was changed from 270 millisecond to 320 millisecond/VT detection interval was changed from 330 millisecond to 400 milliseconds Cardiac cath performed: Diagnosis: Nonobstructive coronary artery disease; Patent stents in mid LAD/proximal RCA/distal RCA; Negative FFR of 50% lesion in mid LAD; LVEDP of 10 mm Hg; Cardiac suggestions for management: Optimized medical therapy; Guideline directed medical therapy for systolic heart failure; Lifestyle and risk factor modification Patient is a 64-year-old gentleman who presented with flu-like symptoms, but later coded in the floor. No tele rhythm of the time of the code was available to review (at first). Reportedly there was PA. Stable serial high sensitive troponin is against acute coronary syndrome. Patient does have baseline history of heart failure and pulmonary hypertension. He also has Bi V ICD (interrogation revealed episode of v-fib/v-tach resulting in Defibrillation). Does have baseline history of noncompliance to medication/hemodialysis. Does have baseline history of pancytopenia and is found to have significant anemia. With respiratory failure and on vent support. Case discussed with Electrophysiology (Dr Tamayo). Acute arrest Rule out PA Questionable encephalopathy, anoxic versus toxic? Recent URI Septic shock s/p Defibrillation secondary to V-fib/Vtach Encephalopathy Baseline pulmonary hypertension Baseline systolic heart failure Status post Bi V ICD End-stage renal disease, Noncompliant with medication, followups and hemodialysis Pancytopenia History of GI bleeding Right pleural effusion s/p Right AV fistula thrombectomy central angioplasty and peripheral venous angioplasty by Vascular surgeon Cardiac suggestion for management: Manage in telemetry Aggressive hemodialysis Follow-up electrolytes and kidney function tests and correct abnormalities Continue aspirin On Amiodarone and Mexiletine Optimized medical therapy; Guideline directed medical therapy for systolic heart failure Further evaluation and management depends on the above and clinical course Further evaluation and management also depends on the regaining of high level of consciousness/brain function Pulmonary follow-up for pleural effusion. A total of 55 minutes was spent reviewing the patient record, examining the patient, making a diagnostic and therapeutic plan, discussing this plan with medical personnel, following up on diagnostic studies and following the patient for clinical stability excluding any and all procedures. At least 50% of this time was spent in direct, abcy-ts-qwaj contact. Thank you for allowing me to participate in this patient's care. Further recommendations will depend on patient's clinical course. Please do not hesitate to contact me if you have any questions or concerns. This medical document was created using electronic medical record system with [employer] computerized dictation system. Although this document has been carefully reviewed, there may still be some phonetic and typographical errors. These areas are purely typographical due to the imperfection of the software programs, and do not reflect any compromise in the patient's medical care. Dietary Evaluation Review Comments: 1 Consider TPN per pharmacy if NPO>7 days. 2.TF Nepro@40ml/hr providing 78g pro, 1699 kcal in 24 hrs, if EN/GI accessible, 3.Renal standard diet if pt is off vent and passing a speech eval. offer Nepro PO supplements 240 ml as tolerated if PO intake is less than 50% Expected Outcomes/Goals: Off Vent, maintain wt, less uremic symptoms with his routine HD course. Plan discussed with: Other (nurse) SUSHMA WALKER MD Jul 08, 2024 06:53
[2024-07-08 07:22] LABS: Base Excess -2.8 mmol/L (-2.0-3.0)
[2024-07-08 07:43] LABS: Band Neutrophils % (manual) 1; Eosinophils % (manual) 4 (0-7); Lymphocytes % (manual) 21 (10.0-50.0); Monocytes % (manual) 9 (0-12)
[2024-07-08 07:44] LABS: Anisocytosis Slight; Platelet Estimate Decreased
[2024-07-08 08:54] LABS: Base Excess -1.8 mmol/L (-2.0-3.0)
[2024-07-08 11:26] LABS: Base Excess -0.7 mmol/L (-2.0-3.0)
[2024-07-08 13:42] LABS: Base Excess -0.7 mmol/L (-2.0-3.0)
--- NOTE | 2024-07-08 13:53 | DVHPNRES ---
Progress Note Date Seen: Jul 08, 2024 Resident Creating Document: YVONNE DOMINGUEZ RESIDENT Medical Necessity Reason Pt with a Central, PICC or Fol: Yes The following are medically ne: Central Line, Lynne Catheter Reason for lynne catheter: Strict I&O Subjective Review of Systems Patient examined at bedside, alert and oriented on time, person but not on place , patient extubated on 07/05, hemodyalisis and blood transfusion was done today in the morning. CXR still showing righ lung pleural effusion, scheduled for a thoracentesis tomorrow in addtion to hemodialysis. Patient was evaluated this morning, he was quite confused, alert and oriented x1 an ABG showed a marked respiratory acidosis, during the night patient pull out his BiPAP mask. ABG was performed this morning that showed marked respiratory acidosis, patient was started on BiPAP with settings 18:1, after which the PH improved slightly patient is currently on BiPAP machine, patient was re-evaluated at 12:00 a.m. he was more oriented and responsive. Patiente recovers after bipap , in the afternoon I reevaluate him , he was oriented x4, with sister at bedside she wants to continue all current treatment including BiPAP if needed, patient and sister does not want compressions, shocking, medications or intubation at this time, modify code status form sign by , Joy and Didi (sister). continue on BiPAP I: 12 and E: 5 Patient reports: No new complaints Changes from previous H/P or p: No Changes Review of Systems: HEENT:Normal, CVS:Normal, RESPIRATORY:Abnormal, GI:Normal, :Normal, MSK:Normal, NEURO:Normal Objective vital signs Vital Sign Date Time Temp Pulse Resp B/P (MAP) Pulse Ox O2 Delivery O2 Flow Rate FiO2 07/08/24 10:45 81 93 Facial BiPAP Mask 35 07/08/24 08:30 98.1 19 141/68 (92) 98.1 07/07/24 23:57 4.0 Total Intake and Output 07/07/24 07/07/24 07/08/24 15:00 23:00 07:00 Intake Total 110 ml 310 ml 0 ml Output Total 300 ml Balance 110 ml 10 ml 0 ml medications Current Medications Medications Dose Ordered Sig/Colleen Route Start Time Stop Time Status Last Admin Dose Admin Bacitracin/ Polymyxin B Sulfate 1 applic TID OP 06/27/24 22:00 07/08/24 05:25 1 APPLIC Dextrose 50 ml UD PRN IV 06/28/24 08:00 06/29/24 11:58 50 ML Heparin Sodium/ Dextrose 250 ml @ 13.896 mls/ hr Q18H IV 06/28/24 08:00 UNV Epoetin Eligio-epbx 10,000 unit MWF@2100 SC 06/29/24 21:00 07/06/24 20:54 10,000 UNIT Artificial Tears 2 drop Q6HP PRN EACHEYE 06/29/24 11:30 Amiodarone HCl 200 mg BID PO 06/30/24 22:00 07/08/24 11:12 200 MG Mexiletine HCl 150 mg Q8HR PO 06/30/24 22:00 07/08/24 05:25 150 MG Acetaminophen 650 mg Q4HP PRN PO 07/03/24 18:00 Albuterol 2.5 mg Q6HPRN PRN NEB 07/05/24 14:30 07/05/24 15:50 2.5 MG Ipratropium [place] 0.5 mg Q6HPRN PRN NEB 07/05/24 14:30 07/05/24 15:50 0.5 MG Morphine Sulfate 1 mg Q4HP PRN IV 07/05/24 15:45 07/07/24 02:57 1 MG Pantoprazole Sodium 40 mg DAILY@0600 PO 07/07/24 06:00 07/08/24 05:25 40 MG Ondansetron HCl 4 mg Q6HPRN PRN IV 07/06/24 12:45 07/06/24 21:10 4 MG Hydralazine HCl 10 mg Q6HP PRN IV 07/06/24 13:00 07/06/24 17:09 10 MG Albumin Human 100 ml @ 100 mls/hr SHADY PRN IV 07/06/24 19:30 Examination: GENERAL:Normal, HEENT:Normal, NECK:Normal, LUNGS:Abnormal, CVS:Normal, ABDOMEN:Normal, MSK:Normal, SKIN:Normal, NEURO:Normal, :Normal laboratory and microbiology Laboratory Tests 07/08/24 05:12 Test 07/08/24 05:12 Range/Units Serum Glucose 113 H 74-106 mg/dL Microbiology Date/Time Source Procedure Growth Status 06/28/24 11:44 Nose MRSA Screen - Final Complete 06/28/24 08:05 Sputum Gram Stain - Final Complete 06/28/24 08:05 Sputum Respiratory Culture - Final Complete 06/28/24 07:55 Blood Blood Culture - Final Staphylococcus epidermidis Complete Problem List/Assessment/Plan Problem List/Assessment/Plan Neurology: # acute encephalopathy due s/p cardiac arrest due to VTach/VFib #Patient extubated on 07/05 -Currently on BiPAP IPAP 12 and EPAP 5 -Rajesh catheter for hemodialysis removal , pending - Right AV fistula thrombectomy central angioplasty, ready for hd tomorrow. - thoracentesis tomorrow Cardiovascular #Acute on chronic systolic heart failure NYHA III-IV #Cardiac arrest due to VT/VF #History of nonischemic cardiomyopathy #History of myocardial infarction #Severe pulmonary hypertension RVSP 75 mmHg #Atrial fibrillation #HFrEF 20% SP AICD/[employer] D/pace #CAD status post 3 stents -CT angiography unremarkable -DRB Systemstronic interrogation unremarkable -amiodarone po -mexiletine po - LHC :Nonobstructive coronary artery disease, patent stents in mid LAD/proximal RCA/distal RCA, negative FFR of 50% lesion in mid LAD and LVEDP of 10 mm Hg Respiratory: #Acute hypoxemic respiratory failure due to HFrEF 20% exacerbation #Acute hypoxic hypercapnic respiratory failur # Respiratory acidosis #Bilateral infiltrates on chest x-ray possible aspiration pneumonia / pulmonary edema #Right pleural effusion #Pulmonary embolism ruled out - ABG - BiPAP 12:5 - chest x-rays tomorrow morning - thoracentesis tomorrow Renal: #ESRD on hemodialysis #Acute kidney injury on ESRD #Hyperkalemia,resolved #Hypoalbuminemia -hemodialysis tomorrow -Right AV fistula ready for hd tomorrow Infectious disease: #Shock likely septic due to suspected UTI/aspiration pneumonia #Leukocytosis #Bilateral infiltrates likely due to possible aspiration pneumonia -resolved -daily CBC and CMP Endocrine #History of Type 2 diabetes Hematology: #Severe anemia status post 2 packed red blood cell transfusion - Monitor CBC daily -H&H Case discussed with Critical care time spent: :46 minutes Code status: DNR/DNI Plan discussed with: Patient, Other (SISTER) My Orders My Orders Orders - YVONNE DOMINGUEZ RESIDENT Procedure Category Date Status Time BIPAP RT 07/07/24 Logged 13:15 * Radiologist Consult CONS 07/07/24 Transmitted 15:23 Chest Portable XY 07/08/24 Resulted 04:00 Abg W/ Co-Ox RT 07/08/24 Logged 04:00 * Swallow Request ST 07/07/24 Transmitted 15:34 Abg W/ Co-Ox RT 07/08/24 Logged 08:30 BIPAP RT 07/08/24 Logged 08:47 Abg W/ Co-Ox RT 07/08/24 Logged 10:30 Abg W/ Co-Ox RT 07/08/24 Logged 13:22 Dietary Evaluation Review Comments: 1 Consider TPN per pharmacy if NPO>7 days. 2.TF Nepro@40ml/hr providing 78g pro, 1699 kcal in 24 hrs, if EN/GI accessible, 3.Renal standard diet if pt is off vent and passing a speech eval. offer Nepro PO supplements 240 ml as tolerated if PO intake is less than 50% Expected Outcomes/Goals: Off Vent, maintain wt, less uremic symptoms with his routine HD course. Date of Service: Jul 08, 2024 Billing Provider: BELTRAN KLEIN MD Common Visit Codes: 24693-[id number] CARE 30-74 MIN YVONNE DOMINGUEZ RESIDENT Jul 08, 2024 13:53 BELTRAN KLEIN MD Jul 09, 2024 11:43
--- NOTE | 2024-07-08 14:23 | DVHPN2 ---
Progress Note Date Seen: Jul 08, 2024 Medical Necessity Reason Pt with a Central, PICC or Fol: Yes The following are medically ne: Central Line, Lynne Catheter Reason for lynne catheter: Strict I&O Subjective Review of Systems: CVS:Abnormal, RESPIRATORY:Abnormal Objective vital signs Vital Sign Date Time Temp Pulse Resp B/P (MAP) Pulse Ox O2 Delivery O2 Flow Rate FiO2 07/08/24 10:45 81 93 Facial BiPAP Mask 35 07/08/24 08:30 98.1 19 141/68 (92) 98.1 07/07/24 23:57 4.0 Total Intake and Output 07/07/24 07/07/24 07/08/24 15:00 23:00 07:00 Intake Total 110 ml 310 ml 0 ml Output Total 300 ml Balance 110 ml 10 ml 0 ml medications Current Medications Medications Dose Ordered Sig/Colleen Route Start Time Stop Time Status Last Admin Dose Admin Bacitracin/ Polymyxin B Sulfate 1 applic TID OP 06/27/24 22:00 07/08/24 05:25 1 APPLIC Dextrose 50 ml UD PRN IV 06/28/24 08:00 06/29/24 11:58 50 ML Heparin Sodium/ Dextrose 250 ml @ 13.896 mls/ hr Q18H IV 06/28/24 08:00 UNV Epoetin Eligio-epbx 10,000 unit MWF@2100 SC 06/29/24 21:00 07/06/24 20:54 10,000 UNIT Artificial Tears 2 drop Q6HP PRN EACHEYE 06/29/24 11:30 Amiodarone HCl 200 mg BID PO 06/30/24 22:00 07/08/24 11:12 200 MG Mexiletine HCl 150 mg Q8HR PO 06/30/24 22:00 07/08/24 05:25 150 MG Acetaminophen 650 mg Q4HP PRN PO 07/03/24 18:00 Albuterol 2.5 mg Q6HPRN PRN NEB 07/05/24 14:30 07/05/24 15:50 2.5 MG Ipratropium [place] 0.5 mg Q6HPRN PRN NEB 07/05/24 14:30 07/05/24 15:50 0.5 MG Morphine Sulfate 1 mg Q4HP PRN IV 07/05/24 15:45 07/07/24 02:57 1 MG Pantoprazole Sodium 40 mg DAILY@0600 PO 07/07/24 06:00 07/08/24 05:25 40 MG Ondansetron HCl 4 mg Q6HPRN PRN IV 07/06/24 12:45 07/06/24 21:10 4 MG Hydralazine HCl 10 mg Q6HP PRN IV 07/06/24 13:00 07/06/24 17:09 10 MG Albumin Human 100 ml @ 100 mls/hr SHADY PRN IV 07/06/24 19:30 Examination: GENERAL:Abnormal, LUNGS:Abnormal, CVS:Abnormal, SKIN:Abnormal, NEURO:Abnormal laboratory and microbiology Laboratory Tests 07/08/24 05:12 Test 07/08/24 05:12 Range/Units Serum Glucose 113 H 74-106 mg/dL Microbiology Date/Time Source Procedure Growth Status 06/28/24 11:44 Nose MRSA Screen - Final Complete 06/28/24 08:05 Sputum Gram Stain - Final Complete 06/28/24 08:05 Sputum Respiratory Culture - Final Complete 06/28/24 07:55 Blood Blood Culture - Final Staphylococcus epidermidis Complete Problem List/Assessment/Plan Problem List/Assessment/Plan ESRD s/p cardiac arrest Pleural effusions CHF exacerbation Hx of Afib Hx of ME HTN anemia due to CKD thrombosed Right AVF s/p surgical revision HD planned for thoracentesis daily fluid restriction epogen 3x a week cardiology next HD tomorrow using AVF, remove temp cath if tolerates well Plan discussed with: Patient Dietary Evaluation Review Comments: 1 Consider TPN per pharmacy if NPO>7 days. 2.TF Nepro@40ml/hr providing 78g pro, 1699 kcal in 24 hrs, if EN/GI accessible, 3.Renal standard diet if pt is off vent and passing a speech eval. offer Nepro PO supplements 240 ml as tolerated if PO intake is less than 50% Expected Outcomes/Goals: Off Vent, maintain wt, less uremic symptoms with his routine HD course. JOSE GUADALUPE ELLIOTT MD Jul 08, 2024 14:23
[2024-07-08 16:04] LABS: INR 1.42 (0.9-1.15); Prothrombin Time 14.5 sec (9.3-11.8)
[2024-07-08] MEDS: methylPREDNISolone SOD SUCC 40 MG/ML VL IV ONE (18:05)
[2024-07-08 20:42] LABS: Base Excess -3.1 mmol/L (-2.0-3.0)
[2024-07-08] MEDS: methylPREDNISolone SOD SUCC 40 MG/ML VL IV SCH (21:39)
[2024-07-08 23:38] LABS: Base Excess -1.3 mmol/L (-2.0-3.0)
[2024-07-09] VITALS (13 sets, daily range): BP systolic 107–143; BP diastolic 57–85; PULSE 60–81; RESP 15–24; TEMP 97–98.4; O2SAT 94–100
[2024-07-09 05:50] LABS: Basophils # (auto) 0 10 ^3/uL (0-0.2); Basophils % (auto) 0.6 % (0.0-2.0); Eosinophils # (auto) 0 10 ^3/uL (0-0.8); Eosinophils % (auto) 0.3 % (0.0-7.0); Hematocrit 27.1 % (41.0-53.0); Hemoglobin 8.7 g/dL (13.5-17.5); Lymphocytes # (auto) 0.1 10 ^3/uL (0.4-5.4); Lymphocytes % (auto) 6.2 % (10.0-50.0); Mean Corpuscular Hemoglobin 31.1 pg (28.0-32.0); Mean Corpuscular Hgb Conc. 32.2 g/dL (32.0-36.0); Mean Corpuscular Volume 96.8 fL (80.0-100.0); Monocytes # (auto) 0.1 10 ^3/uL (0-1.3); Monocytes % (auto) 3.2 % (0.0-12.0); Neutrophils # (auto) 1.8 10 ^3/uL (1.6-8.6); Neutrophils % (auto) 89.7 % (37.0-80.0); Nucleated Red Blood Cells % 0.9 %; Platelet Count (auto) 115 10^3/uL (140-450); Red Cell Distribution Width 18.6 % (11.8-14.3)
[2024-07-09 06:24] LABS: Alkaline Phosphatase 64 U/L (46-116); Anion Gap 12 (5-15); BUN/Creatinine Ratio 6.9 (10.0-20.0); Calcium 10.2 mg/dL (8.7-10.4); Carbon Dioxide 25 mmol/L (20-31); Chloride 100 mmol/L (98-107); Sodium 137 mmol/L (136-145)
[2024-07-09 06:25] LABS: Albumin 3.5 g/dL (3.2-4.8)
[2024-07-09 06:26] LABS: Bilirubin, Total 0.7 mg/dL (0.2-1.0)
[2024-07-09 06:34] LABS: Alanine Aminotransferase 236 U/L (7-40); Aspartate Aminotransferase 334 U/L (13-40); Blood Urea Nitrogen 42 mg/dL (9-23); Glucose 124 mg/dL (74-106)
[2024-07-09 06:49] LABS: Base Excess -0.9 mmol/L (-2.0-3.0)
[2024-07-09] MEDS: SODIUM CHL 0.9% 1000 ML BAG XX ONE (07:00)
--- NOTE | 2024-07-09 07:39 | DVHPN2 ---
Progress Note - Dictate Date Seen: Jul 09, 2024 Medical Necessity Reason Pt with a Central, PICC or Fol: Yes The following are medically ne: Central Line, Lynne Catheter Reason for lynne catheter: Strict I&O vital signs Vital Sign Date Time Temp Pulse Resp B/P (MAP) Pulse Ox O2 Delivery O2 Flow Rate FiO2 07/09/24 06:28 97 Nasal Cannula 3.0 07/09/24 06:28 32 07/09/24 05:00 97.0 60 16 130/74 (92) 97.0 Total Intake and Output 07/08/24 07/08/24 07/09/24 15:00 23:00 07:00 Intake Total 275 ml 275 ml Output Total 30 ml 100 ml Balance 245 ml 175 ml medications Current Medications Medications Dose Ordered Sig/Colleen Route Start Time Stop Time Status Last Admin Dose Admin Bacitracin/ Polymyxin B Sulfate 1 applic TID OP 06/27/24 22:00 07/08/24 14:41 1 APPLIC Dextrose 50 ml UD PRN IV 06/28/24 08:00 06/29/24 11:58 50 ML Heparin Sodium/ Dextrose 250 ml @ 13.896 mls/ hr Q18H IV 06/28/24 08:00 UNV Epoetin Eligio-epbx 10,000 unit MWF@2100 SC 06/29/24 21:00 07/08/24 21:43 10,000 UNIT Artificial Tears 2 drop Q6HP PRN EACHEYE 06/29/24 11:30 Amiodarone HCl 200 mg BID PO 06/30/24 22:00 07/08/24 11:12 200 MG Mexiletine HCl 150 mg Q8HR PO 06/30/24 22:00 07/09/24 06:30 150 MG Acetaminophen 650 mg Q4HP PRN PO 07/03/24 18:00 Albuterol 2.5 mg Q6HPRN PRN NEB 07/05/24 14:30 07/05/24 15:50 2.5 MG Ipratropium [place] 0.5 mg Q6HPRN PRN NEB 07/05/24 14:30 07/05/24 15:50 0.5 MG Morphine Sulfate 1 mg Q4HP PRN IV 07/05/24 15:45 07/07/24 02:57 1 MG Pantoprazole Sodium 40 mg DAILY@0600 PO 07/07/24 06:00 07/09/24 06:30 40 MG Ondansetron HCl 4 mg Q6HPRN PRN IV 07/06/24 12:45 07/06/24 21:10 4 MG Hydralazine HCl 10 mg Q6HP PRN IV 07/06/24 13:00 07/06/24 17:09 10 MG Albumin Human 100 ml @ 100 mls/hr SHADY PRN IV 07/06/24 19:30 Methylprednisolone Sodium Succinate 20 mg BID IV 07/08/24 22:00 07/08/24 21:39 20 MG laboratory and microbiology Laboratory Tests 07/09/24 05:04 Test 07/09/24 05:04 Range/Units Serum Glucose 124 H 74-106 mg/dL Assessment/Plan Patient is a 64-year-old gentleman who presented on June 27, 2024 for around a week of flu symptoms and upper left swellings. At the time of evaluation, the patient is being managed in unit. He is intubated and not source of history. Information was obtained by reviewing the chart. Reportedly, the patient had missed hemodialysis quite a few times before presentation as he felt sick. It is reported that he did have flu-like symptoms, eye congestion and diarrhea prior to presentation. While being managed on the floor, patient was found to be nonresponsive and was coded. There is no detailed information about the time of the code. There is question about PEA. The patient was intubated and was brought to the unit. Patient was seen by on-call auger operator at that point. At this point, we are called for Cardiology as the patient is known to us from before. There is no report of actual chest pain. It is of note that serial troponin has been negative. There is no available telemetry at the time of the episode. Is also of note that the patient does have BiV-ICD from before. Presently, the patient is admitted with septic shock. Patient was in the hospital around a month ago. And was managed for acute on chronic systolic heart failure, pancytopenia and pleural effusions (for which had pleurocentesis). He should have been on Eliquis as outpatient. Extubated. There are signs of conjunctivitis on bilateral eyes. No JVD. Mucosa is pink and wet. No carotid bruit. Lungs: Scattered rhonchi in the lungs is heard. Cardiac: Regular, systolic murmur 3/6 in the apex is heard. The site for ICD implantation looks clean with no erythema/ecchymosis/tenderness. Abdomen is soft. Bowel sound is positive. Extremities reveal 2+ edema bilaterally. AV fistula in the right upper extremity with thrill was observed. 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 Echocardiogram of April 08, 2024 had reported four-chamber dilatation, ejection fraction of 20%, [id number] MR/TR and right ventricular systolic pressure of 75 mm Hg Echocardiogram of May 19, 2024 had reported four-chamber dilatation, ejection fraction of 35%, D shaped septum, pulmonary hypertension, mobile interatrial septum, [id number] aortic insufficiency, mild mitral regurgitation, moderate TR and right ventricular systolic pressure of 80 mm Hg Hemoglobin: 7.2 - 7.2 - 8.0 - 5.5 - 8.8 - 8.7 - 7.4 - 7.5 - 7.8 - 7.7 - 7.4 - 7.5 - 7.7 - 9.6 - 9.7 - 8.7 Platelet: 102 - 111 - 106 - 99 - 89 - 69 - 70 - 52 - 53 - 68 - 87 - 131 - 115 Creatinine: 8.29 - 8.51 - 8.5 - 8.17 - 8.63 - 6.77 - 4.80 - 3.86 - 4.84 - 3.81 - 5.10 - 5.98 - 5.08 - 6.07 Potassium: 5.2 - 5.7 - 5.1 - 5.2 - 5.9 - 4.5 - 4.3 - 4.2 - 3.3 - 3.8 - 3.7 - 4.2 - 4.7 - 4.9 - 5.0 Lactic acid: 4.7 - 2.7 Troponin (high sensitive) 40 - 41 - 40 BNP: 2509.04 D-Dimer: 4.72 Digoxin: <0.14 Chest x-ray reported: FINDINGS: LUNGS AND PLEURAL SPACES: See below. HEART: Cardiomegaly with moderate congestion. Left cardiac. MEDIASTINUM: Unremarkable. Normal mediastinal contour. BONES/JOINTS: Unremarkable. No acute fracture. OTHER FINDINGS: . . . .. IMPRESSION: Cardiomegaly with moderate congestion. Repeat chest x-ray reported: Medical devices: The ETT ends above the level of elizabeth at the level of clavicular heads. The enteric tube extends to the stomach. Multi lead left upper chest wall AICD with leads extending to the cardiac chambers. Cardiomediastinal: The heart is moderately enlarged. Pulmonary vasculature is prominent. Atherosclerotic calcification of the aortic arch noted. Lungs: There is interval enlargement of now moderate-sized right pleural effusion and interval development of patchy consolidation in the right middle and left upper lung zone. Small opacities are noted in the left lung base. Diffuse bilateral interstitial opacities are noted. No pneumothorax. Bones/soft tissues: No acute abnormality is noted. Right subclavian vascular stents noted. IMPRESSION: 1. Worsening CHF with moderate right pleural effusion , interval development of extensive bilateral interstitial opacities and large patchy multifocal bilateral consolidations that may represent edema or pneumonia. Recommend clinical and biochemical correlation. Repeat chest xry reported: IMPRESSION: 1. Right basilar atelectasis or pneumonia. 2. Cardiomegaly with mild congestion. Repeat chest xry reported: IMPRESSION: 1. Right basilar atelectasis or pneumonia. Small bilateral pleural effusions. 2. Cardiomegaly with mild congestion. 3. Endotracheal tube now projects 6 cm above level the elizabeth in appropriate position. Repeat chest xry reported: IMPRESSION: 1. Cardiomegaly with pulmonary congestion and edema. Superimposed pneumonia cannot be excluded. 2. Right pleural effusion. Repeat chest xry reported: FINDINGS: VERTEBRAE: Unremarkable. No acute fracture. Normal alignment. No instability. DISC SPACES: No acute findings. No significant narrowing. SOFT TISSUES: Unremarkable. HEART: Left cardiac. Mild congestive heart failure. TUBES, LINES AND DEVICES: Enteric tube tip in the stomach. The endotracheal tube (ETT) is in satisfactory position. OTHER FINDINGS: . ... IMPRESSION: Mild congestive heart failure. Repeat chest xry revealed: IMPRESSION: Cardiomegaly with moderate congestion. Repeat chest xry revealed: IMPRESSION: 1. Mechanical ventilation with tubes and lines as above. 2. Right basilar infiltrate and effusion, improved. 3. Cardiomegaly. Repeat chest xry revealed: IMPRESSION: 1. Biventricular pacemaker in place 2. Bibasilar infiltrates right pleural effusion. Right pleural effusion appears to have slightly increased. This may be secondary to patient positioning. 3. Right subclavian stent in place unchanged from 07/04/2024.. Repeat chest xry revealed: Lines and Tubes: Left chest wall AICD. Left central venous catheter in satisfactory position. Lungs: Patchy bilateral airspace opacities. Pleura: Small bilateral pleural effusions, [id number]. No pneumothorax. Cardiomediastinal contours: Unremarkable Bones: Unremarkable IMPRESSION: Unchanged fluid overload. Repeat chest xry revealed: Lines and Tubes: Left chest wall AICD. Left central venous catheter in satisfactory position. Lungs: Mild congestion Pleura: Small right pleural effusion. No pneumothorax. Cardiomediastinal contours: Cardiomegaly Bones: Unremarkable IMPRESSION: Small right pleural effusion. Chest ultrasound revealed: Findings/Impression: Moderate to large right pleural effusion. No left pleural effusion. Upper ext (right) arterial duplex reported: IMPRESSION: 1. The right upper extremity brachial-cephalic AVF is thrombosed. 2. The right axillary stent is thrombosed. 3. The arteries of the right upper extremity including subclavian, axillary, brachial, radial and ulnar arteries are patent. CTA of lungs revealed: IMPRESSION: 1. No pulmonary embolism. 2. Large right and small left pleural effusion with associated bilateral atelectasis and consolidation. Patchy ground-glass opacities could represent pulmonary edema or an infectious / inflammatory process. Mediastinal lymphadenopathy similar to prior. Clinical correlation and continued follow-up is recommended. Overall appearance is worse compared to prior exam. CT of head reported: 1. No acute intracranial pathology. Cortical atrophy greater on the left. EKG revealed paced rhythm Telemetry revealed paced rhythm (it is of note that telemetry rhythm at the time of the code is not available to revealed) Echocardiogram reported: limited study. lvef 20% by visual estimate. postop septum. septum flattening noted. RV enlarged with dysfunction. biatrial enlargement. valves not assessed Med[employer] ICD interrogation revealed: Remaining longevity of battery: 3.8 years; DDDR: 60/130; Pacing impedance: A 380 /RV 323/LV 304 Ohms; Shock impedance: RV 29 Ohms; Capture threshold: Atrial 0.5/RV 0.875 volts at 0.4 milliseconds; Program sensitivity: Atrial 0.3/RV 0.3 mV; Episodes: VT/VF: 1 resulting in shock; Changes performed: VTE detection interval was changed from 270 millisecond to 320 millisecond/VT detection interval was changed from 330 millisecond to 400 milliseconds Cardiac cath performed: Diagnosis: Nonobstructive coronary artery disease; Patent stents in mid LAD/proximal RCA/distal RCA; Negative FFR of 50% lesion in mid LAD; LVEDP of 10 mm Hg; Cardiac suggestions for management: Optimized medical therapy; Guideline directed medical therapy for systolic heart failure; Lifestyle and risk factor modification Patient is a 64-year-old gentleman who presented with flu-like symptoms, but later coded in the floor. No tele rhythm of the time of the code was available to review (at first). Reportedly there was PA. Stable serial high sensitive troponin is against acute coronary syndrome. Patient does have baseline history of heart failure and pulmonary hypertension. He also has Bi V ICD (interrogation revealed episode of v-fib/v-tach resulting in Defibrillation). Does have baseline history of noncompliance to medication/hemodialysis. Does have baseline history of pancytopenia and is found to have significant anemia. With respiratory failure and on vent support. Case discussed with Electrophysiology (Dr Tamayo). Acute arrest Rule out PA Questionable encephalopathy, anoxic versus toxic? Recent URI Septic shock s/p Defibrillation secondary to V-fib/Vtach Encephalopathy Baseline pulmonary hypertension Baseline systolic heart failure Status post Bi V ICD End-stage renal disease, Noncompliant with medication, followups and hemodialysis Pancytopenia History of GI bleeding Right pleural effusion s/p Right AV fistula thrombectomy central angioplasty and peripheral venous angioplasty by Vascular surgeon Cardiac suggestion for management: Manage in telemetry Follow-up electrolytes and kidney function tests and correct abnormalities Continue aspirin On Amiodarone and Mexiletine Optimized medical therapy; Guideline directed medical therapy for systolic heart failure Further evaluation and management depends on the above and clinical course Pulmonary follow-up for pleural effusion. A total of 55 minutes was spent reviewing the patient record, examining the patient, making a diagnostic and therapeutic plan, discussing this plan with medical personnel, following up on diagnostic studies and following the patient for clinical stability excluding any and all procedures. At least 50% of this time was spent in direct, [id number] contact. Thank you for allowing me to participate in this patient's care. Further recommendations will depend on patient's clinical course. Please do not hesitate to contact me if you have any questions or concerns. This medical document was created using electronic medical record system with [employer] computerized dictation system. Although this document has been carefully reviewed, there may still be some phonetic and typographical errors. These areas are purely typographical due to the imperfection of the software programs, and do not reflect any compromise in the patient's medical care. Dietary Evaluation Review Comments: 1 Consider TPN per pharmacy if NPO>7 days. 2.TF Nepro@40ml/hr providing 78g pro, 1699 kcal in 24 hrs, if EN/GI accessible, 3.Renal standard diet if pt is off vent and passing a speech eval. offer Nepro PO supplements 240 ml as tolerated if PO intake is less than 50% Expected Outcomes/Goals: Off Vent, maintain wt, less uremic symptoms with his routine HD course. Plan discussed with: Patient, Other (nurse) SUSHMA WALKER MD Jul 09, 2024 07:39
--- NOTE | 2024-07-09 10:57 | DVH ---
EXAM: XY CHEST PORTABLE Indication: PLEURAL EFFUSION Technique: Single frontal view of the chest was obtained Comparison: XY CHEST PORTABLE on DOS: 07/08/24, XY CHEST PORTABLE on DOS: 07/07/24, XY CHEST PORTABLE o n DOS: 07/06/24, XY CHEST PORTABLE on DOS: 07/05/24, XY CHEST PORTABLE on DOS: 07/04/24 FINDINGS: Lines and Tubes: Cardiac pacemaker projects over left chest wall. Left internal jugular central venou s catheter tip projects over the superior vena cava. Lungs: Bibasilar opacities. Pleura: Small bilateral pleural effusions. No pneumothorax. Cardiomediastinal contours: Cardiomegaly. Atherosclerotic vascular calcifications of the thoracic aor ta are noted. Bones: No acute osseous abnormality. IMPRESSION: Cardiomegaly with small bilateral pleural effusions and bibasilar opacities.
[2024-07-09 13:32] LABS: Base Excess 0.8 mmol/L (-2.0-3.0)
--- NOTE | 2024-07-09 14:26 | DVHPN2 ---
Progress Note Date Seen: Jul 09, 2024 Medical Necessity Reason Pt with a Central, PICC or Fol: Yes The following are medically ne: Central Line, Lynne Catheter Reason for lynne catheter: Strict I&O Subjective Review of Systems: RESPIRATORY:Abnormal Objective vital signs Vital Sign Date Time Temp Pulse Resp B/P (MAP) Pulse Ox O2 Delivery O2 Flow Rate FiO2 07/09/24 09:00 97.2 77 24 143/85 (104) 100 97.2 07/09/24 06:28 Nasal Cannula 3.0 07/09/24 06:28 32 Total Intake and Output 07/08/24 07/08/24 07/09/24 15:00 23:00 07:00 Intake Total 275 ml 275 ml Output Total 30 ml 100 ml Balance 245 ml 175 ml medications Current Medications Medications Dose Ordered Sig/Colleen Route Start Time Stop Time Status Last Admin Dose Admin Bacitracin/ Polymyxin B Sulfate 1 applic TID OP 06/27/24 22:00 07/08/24 14:41 1 APPLIC Dextrose 50 ml UD PRN IV 06/28/24 08:00 06/29/24 11:58 50 ML Heparin Sodium/ Dextrose 250 ml @ 13.896 mls/ hr Q18H IV 06/28/24 08:00 UNV Epoetin Eligio-epbx 10,000 unit MWF@2100 SC 06/29/24 21:00 07/08/24 21:43 10,000 UNIT Artificial Tears 2 drop Q6HP PRN EACHEYE 06/29/24 11:30 Amiodarone HCl 200 mg BID PO 06/30/24 22:00 07/08/24 11:12 200 MG Mexiletine HCl 150 mg Q8HR PO 06/30/24 22:00 07/09/24 06:30 150 MG Acetaminophen 650 mg Q4HP PRN PO 07/03/24 18:00 Albuterol 2.5 mg Q6HPRN PRN NEB 07/05/24 14:30 07/05/24 15:50 2.5 MG Ipratropium [place] 0.5 mg Q6HPRN PRN NEB 07/05/24 14:30 07/05/24 15:50 0.5 MG Morphine Sulfate 1 mg Q4HP PRN IV 07/05/24 15:45 07/07/24 02:57 1 MG Pantoprazole Sodium 40 mg DAILY@0600 PO 07/07/24 06:00 07/09/24 06:30 40 MG Ondansetron HCl 4 mg Q6HPRN PRN IV 07/06/24 12:45 07/06/24 21:10 4 MG Hydralazine HCl 10 mg Q6HP PRN IV 07/06/24 13:00 07/06/24 17:09 10 MG Albumin Human 100 ml @ 100 mls/hr SHADY PRN IV 07/06/24 19:30 Methylprednisolone Sodium Succinate 20 mg BID IV 07/08/24 22:00 07/08/24 21:39 20 MG Examination: GENERAL:Abnormal, LUNGS:Abnormal, CVS:Abnormal laboratory and microbiology Laboratory Tests 07/09/24 05:04 Test 07/09/24 05:04 Range/Units Serum Glucose 124 H 74-106 mg/dL Microbiology Date/Time Source Procedure Growth Status 06/28/24 11:44 Nose MRSA Screen - Final Complete 06/28/24 08:05 Sputum Gram Stain - Final Complete 06/28/24 08:05 Sputum Respiratory Culture - Final Complete 06/28/24 07:55 Blood Blood Culture - Final Staphylococcus epidermidis Complete Problem List/Assessment/Plan Problem List/Assessment/Plan ESRD s/p cardiac arrest Pleural effusions CHF exacerbation Hx of Afib Hx of [place] HTN anemia due to CKD thrombosed Right AVF s/p surgical revision HD via temporary catheter today 3L removed s/p thoracentesis 1.5L removed daily fluid restriction epogen 3x a week cardiology AVF is thrombosed, vascular notified. IR vs vascular Plan discussed with: Patient My Orders My Orders Orders - JOSE GUADALUPE ELLIOTT MD Procedure Category Date Status Time Hemodialysis Orders ORDERS 07/09/24 Transmitted 07:00 Dialysis Nursing LETICIA 07/09/24 In Process Message 07:00 Document Fluid Input LETICIA 07/09/24 In Process And Outpu 07:00 Dietary Evaluation Review Comments: 1 Consider TPN per pharmacy if NPO>7 days. 2.TF Nepro@40ml/hr providing 78g pro, 1699 kcal in 24 hrs, if EN/GI accessible, 3.Renal standard diet if pt is off vent and passing a speech eval. offer Nepro PO supplements 240 ml as tolerated if PO intake is less than 50% Expected Outcomes/Goals: Off Vent, maintain wt, less uremic symptoms with his routine HD course. JOSE GUADALUPE ELLIOTT MD Jul 09, 2024 14:26
--- NOTE | 2024-07-09 15:02 | DVH ---
LEFT Upper Extremity Venous Duplex Clinical History: edema Comparison: US LT UPPER DVT on DOS: 05/18/24 Findings: Duplex Doppler evaluation of the venous system of the LEFT lower neck and upper extremity including c olor Doppler and spectral/pulsed waveform analysis was performed. PICC line in the left internal jugular vein. No flow seen subclavian vein. The subclavian vein is patent on color Doppler evaluation without intraluminal thrombus and demonstra doreen waveform variability. The visualized portion of the brachiocephalic vein is patent on color Doppler evaluation without intr aluminal thrombus and demonstrates waveform variability. The axillary vein demonstrates appropriate compressibility and waveform variability. The brachial veins demonstrate appropriate compressibility and patency on Doppler evaluation. The basilic vein demonstrates appropriate compressibility and patency on Doppler evaluation. The cephalic vein demonstrates appropriate compressibility and patency on Doppler evaluation. Impression: Thrombus in the left subclavian vein If clinical concern/symptoms persist or worsen, short-interval follow-up study is suggested.
--- NOTE | 2024-07-09 15:03 | DVH ---
PROCEDURE: ULTRASOUND GUIDED THORACENTESIS USING TEMPORARY CATHETER HISTORY: R PLEURAL EFFUSION DOCUMENTATION: Informed consent was obtained and a procedural time out was performed. FINDINGS: The risks and benefits of the procedure including bleeding, infection and pneumothorax were explained to the patient and written informed consent obtained. Optimal site for puncture long the right posterior chest wall was determined using real-time ultraso und and the region sterilized. Local anesthesia was instilled. A 5 Yoruba catheter was then advanced into the pleural space and 1.3 liters of straw colored flui d was removed. The patient tolerated the procedure well. IMPRESSION: Ultrasound guided RIGHT thoracentesis.
--- NOTE | 2024-07-09 15:17 | DVH ---
EXAM: XY CHEST PORTABLE Indication: thoracentesis Technique: Single frontal view of the chest was obtained Comparison: XY CHEST PORTABLE on DOS: 07/09/24, XY CHEST PORTABLE on DOS: 07/08/24, XY CHEST PORTABLE o n DOS: 07/07/24, XY CHEST PORTABLE on DOS: 07/06/24, XY CHEST PORTABLE on DOS: 07/05/24 FINDINGS: Lines and Tubes: Cardiac pacemaker projects over left chest wall. Left internal jugular central venou s catheter tip projects over the superior vena cava. Lungs: Left lower lung consolidative opacity. Pleura: No effusion. Small right pneumothorax. Cardiomediastinal contours: Cardiomegaly. Atherosclerotic vascular calcifications of the thoracic aor ta are noted. Vascular stent projects over the right upper chest. Bones: No acute osseous abnormality. IMPRESSION: Small right pneumothorax. Cardiomegaly with left lower lung consolidative opacity. Interval decrease in right pleural effusion compared to prior exam. Critical Result: Pneumothorax Findings discussed with Dr. Bennett , at 07/09/2024 03:16 PM.
--- NOTE | 2024-07-09 15:48 | DVH ---
EXAM: XY CHEST PORTABLE Indication: POST THORACENTESIS Technique: Single frontal view of the chest was obtained Comparison: XY CHEST PORTABLE on DOS: 07/09/24, XY CHEST PORTABLE on DOS: 07/09/24, XY CHEST PORTABLE o n DOS: 07/08/24, XY CHEST PORTABLE on DOS: 07/07/24, XY CHEST PORTABLE on DOS: 07/06/24 FINDINGS: Lines and Tubes: Cardiac pacemaker projects over left chest wall. Lungs: Pulmonary edema. Pleura: Small left pleural effusion. Interval resolution of previously seen right pneumothorax. Cardiomediastinal contours: Cardiomegaly. Atherosclerotic vascular calcifications of the thoracic ao rta are noted. Bones: No acute osseous abnormality. IMPRESSION: Interval resolution of previously seen right pneumothorax. Pulmonary edema. Small left pleural effusi on.
[2024-07-09 16:59] LABS: Body Fluid Polymorphonuclear 10 % (0-25); Body Fluid Red Blood Cells 460 CUMM (0-2000); Body Fluid White Blood Cells 100 CUMM (0-200)
[2024-07-09 19:39] LABS: Base Excess -0.2 mmol/L (-2.0-3.0)
--- NOTE | 2024-07-09 20:07 | DVHPNRES ---
Progress Note Date Seen: Jul 09, 2024 Resident Creating Document: YVONNE DOMINGUEZ RESIDENT Medical Necessity Reason Pt with a Central, PICC or Fol: Yes The following are medically ne: Central Line, Shaw Catheter Subjective Review of Systems Patient examined at bedside, alert and oriented X3 , patient extubated on 07/05 thoracentesis and HD performed today. Patient was evaluated at bedside , he was on bipap in the morning, after the thoracentesis and hemodyalisis he was more comfortable and was placed on NC , ABG will be taken in 3 hours to reevaluate. He was eating and more oriented, DVT ultrasound was performed due to moderate edema noted in the left arm. AVF needs to be reevaluate, possibly on Saturday per . Family is thinking about the possibility of comfort measures, they will have a decision tomorrow in the morning, for now patient can be placed on bipap if needed. Patient reports: Feels better Changes from previous H/P or p: Changes Objective vital signs Vital Sign Date Time Temp Pulse Resp B/P (MAP) Pulse Ox O2 Delivery O2 Flow Rate FiO2 07/09/24 17:00 97.7 75 18 120/66 (84) 94 97.7 07/09/24 08:00 Bi-Pap+ 35 35 07/09/24 06:28 3.0 Total Intake and Output 07/08/24 07/08/24 07/09/24 15:00 23:00 07:00 Intake Total 275 ml 275 ml Output Total 30 ml 100 ml Balance 245 ml 175 ml medications Current Medications Medications Dose Ordered Sig/Colleen Route Start Time Stop Time Status Last Admin Dose Admin Bacitracin/ Polymyxin B Sulfate 1 applic TID OP 06/27/24 22:00 07/08/24 14:41 1 APPLIC Dextrose 50 ml UD PRN IV 06/28/24 08:00 06/29/24 11:58 50 ML Heparin Sodium/ Dextrose 250 ml @ 13.896 mls/ hr Q18H IV 06/28/24 08:00 UNV Epoetin Eligio-epbx 10,000 unit MWF@2100 SC 06/29/24 21:00 07/08/24 21:43 10,000 UNIT Artificial Tears 2 drop Q6HP PRN EACHEYE 06/29/24 11:30 Amiodarone HCl 200 mg BID PO 06/30/24 22:00 07/08/24 11:12 200 MG Mexiletine HCl 150 mg Q8HR PO 06/30/24 22:00 07/09/24 06:30 150 MG Acetaminophen 650 mg Q4HP PRN PO 07/03/24 18:00 Albuterol 2.5 mg Q6HPRN PRN NEB 07/05/24 14:30 07/05/24 15:50 2.5 MG Ipratropium [place] 0.5 mg Q6HPRN PRN NEB 07/05/24 14:30 07/05/24 15:50 0.5 MG Morphine Sulfate 1 mg Q4HP PRN IV 07/05/24 15:45 07/09/24 14:59 1 MG Pantoprazole Sodium 40 mg DAILY@0600 PO 07/07/24 06:00 07/09/24 06:30 40 MG Ondansetron HCl 4 mg Q6HPRN PRN IV 07/06/24 12:45 07/06/24 21:10 4 MG Hydralazine HCl 10 mg Q6HP PRN IV 07/06/24 13:00 07/06/24 17:09 10 MG Albumin Human 100 ml @ 100 mls/hr SHADY PRN IV 07/06/24 19:30 Methylprednisolone Sodium Succinate 20 mg BID IV 07/08/24 22:00 07/08/24 21:39 20 MG Examination: GENERAL:Normal, HEENT:Normal, NECK:Normal, LUNGS:Normal, CVS:Normal, ABDOMEN:Normal, MSK:Abnormal, SKIN:Normal, NEURO:Normal, :Abnormal laboratory and microbiology Laboratory Tests 07/09/24 05:04 Test 07/09/24 05:04 Range/Units Serum Glucose 124 H 74-106 mg/dL Microbiology Date/Time Source Procedure Growth Status 06/28/24 11:44 Nose MRSA Screen - Final Complete 06/28/24 08:05 Sputum Gram Stain - Final Complete 06/28/24 08:05 Sputum Respiratory Culture - Final Complete 06/28/24 07:55 Blood Blood Culture - Final Staphylococcus epidermidis Complete Problem List/Assessment/Plan Problem List/Assessment/Plan Neurology: # acute encephalopathy due s/p cardiac arrest due to VTach/VFib #Patient extubated on 07/05 -Admitted to telemetry -Currently on NC 2L -Rajesh catheter for hemodialysis - Right AV fistula reevaluation, pending Cardiovascular #Acute on chronic systolic heart failure NYHA III-IV #Cardiac arrest due to VT/VF #History of nonischemic cardiomyopathy #History of myocardial infarction #Severe pulmonary hypertension RVSP 75 mmHg #Atrial fibrillation #HFrEF 20% SP AICD/MANAGER ORGANIZATIONAL D/pace #CAD status post 3 stents -CT angiography unremarkable -Medtronic interrogation unremarkable -amiodarone po -mexiletine po - LHC :Nonobstructive coronary artery disease, patent stents in mid LAD/proximal RCA/distal RCA, negative FFR of 50% lesion in mid LAD and LVEDP of 10 mm Hg Respiratory: #Acute hypoxemic respiratory failure due to HFrEF 20% exacerbation #Acute hypoxic hypercapnic respiratory failur # Respiratory acidosis #Bilateral infiltrates on chest x-ray possible aspiration pneumonia / pulmonary edema #Right pleural effusion S/P Pleural effusion #Pulmonary embolism ruled out - ABG - chest x-rays tomorrow morning Renal: #ESRD on hemodialysis #Acute kidney injury on ESRD #Hyperkalemia,resolved #Hypoalbuminemia -hemodialysis via rajesh cath was done today -Right AV fistula reevaluation Infectious disease: #Shock likely septic due to suspected UTI/aspiration pneumonia #Leukocytosis #Bilateral infiltrates likely due to possible aspiration pneumonia -resolved -daily CBC and CMP Endocrine #History of Type 2 diabetes Hematology: #Severe anemia status post 2 packed red blood cell transfusion in the setting of ESRD - Monitor CBC daily -H&H Case discussed with Critical care time spent: :48 minutes Code status: DNR/DNI Plan discussed with: Patient, Other (sister) My Orders My Orders Orders - YVONNE DOMINGUEZ RESIDENT Procedure Category Date Status Time Abg W/ Co-Ox RT 07/09/24 Logged 06:00 Abg W/ Co-Ox RT 07/08/24 Logged 23:30 BIPAP RT 07/09/24 Logged 00:02 Abg W/ Co-Ox RT 07/09/24 Logged 09:38 BIPAP RT 07/09/24 Logged 10:09 Abg W/ Co-Ox RT 07/09/24 Logged 13:00 Lt Upper Dvt US 07/09/24 Resulted 12:06 Abg W/ Co-Ox RT 07/09/24 Logged 19:35 Dietary Evaluation Review Comments: 1 Consider TPN per pharmacy if NPO>7 days. 2.TF Nepro@40ml/hr providing 78g pro, 1699 kcal in 24 hrs, if EN/GI accessible, 3.Renal standard diet if pt is off vent and passing a speech eval. offer Nepro PO supplements 240 ml as tolerated if PO intake is less than 50% Expected Outcomes/Goals: Off Vent, maintain wt, less uremic symptoms with his routine HD course. Date of Service: Jul 09, 2024 Billing Provider: BELTRAN KLEIN MD Common Visit Codes: 29567-[id number] CARE 30-74 MIN YVONNE DOMINGUEZ RESIDENT Jul 09, 2024 20:07 BELTRAN KLEIN MD Jul 12, 2024 16:48
[2024-07-10] VITALS (11 sets, daily range): BP systolic 121–144; BP diastolic 70–83; PULSE 65–76; RESP 15–20; TEMP 97–98.9; O2SAT 93–98
[2024-07-10 06:08] LABS: Basophils # (auto) 0 10 ^3/uL (0-0.2); Eosinophils # (auto) 0 10 ^3/uL (0-0.8); Hematocrit 28.7 % (41.0-53.0); Hemoglobin 9.4 g/dL (13.5-17.5); Lymphocytes # (auto) 0.1 10 ^3/uL (0.4-5.4); Lymphocytes % (auto) 2.4 % (10.0-50.0); Mean Corpuscular Hemoglobin 31.6 pg (28.0-32.0); Mean Corpuscular Hgb Conc. 32.6 g/dL (32.0-36.0); Mean Corpuscular Volume 96.9 fL (80.0-100.0); Monocytes # (auto) 0.1 10 ^3/uL (0-1.3); Monocytes % (auto) 2.3 % (0.0-12.0); Neutrophils # (auto) 4.2 10 ^3/uL (1.6-8.6); Neutrophils % (auto) 95.3 % (37.0-80.0); Nucleated Red Blood Cells % 0.6 %; Platelet Count (auto) 146 10^3/uL (140-450); Red Blood Cells 2.96 10^6/uL (4.5-5.90); Red Cell Distribution Width 18.8 % (11.8-14.3); White Blood Cell 4.4 10^3/uL (4.4-10.8)
[2024-07-10 06:27] LABS: Anion Gap 12 (5-15); Calcium 10.2 mg/dL (8.7-10.4); Carbon Dioxide 26 mmol/L (20-31); Potassium 4.6 mmol/L (3.5-5.1)
[2024-07-10 06:29] LABS: BUN/Creatinine Ratio 7.9 (10.0-20.0); Magnesium 2.3 mg/dL (1.6-2.6)
[2024-07-10 06:30] LABS: Albumin 3.7 g/dL (3.2-4.8)
[2024-07-10 06:31] LABS: Bilirubin, Total 0.7 mg/dL (0.2-1.0); Phosphorus 3.6 mg/dL (2.4-5.1); Total Protein 6.2 g/dL (5.7-8.2)
[2024-07-10 06:42] LABS: Alanine Aminotransferase 213 U/L (7-40); Aspartate Aminotransferase 149 U/L (13-40); Blood Urea Nitrogen 36 mg/dL (9-23); Chloride 95 mmol/L (98-107); Glucose 163 mg/dL (74-106); Sodium 133 mmol/L (136-145)
[2024-07-10 06:57] LABS: Alkaline Phosphatase 80 U/L (46-116)
--- NOTE | 2024-07-10 07:37 | DVHPN2 ---
Progress Note - Dictate Date Seen: Jul 10, 2024 Medical Necessity Reason Pt with a Central, PICC or Fol: Yes The following are medically ne: Central Line, Shaw Catheter vital signs Vital Sign Date Time Temp Pulse Resp B/P (MAP) Pulse Ox O2 Delivery O2 Flow Rate FiO2 07/10/24 05:00 98.9 66 17 141/72 (95) 98 98.9 07/09/24 20:00 Bi-Pap+ 35 35 07/09/24 19:52 1.5 Total Intake and Output 07/09/24 07/09/24 07/10/24 15:00 23:00 07:00 Intake Total 1330 ml 240 ml Output Total 25 ml 20 ml Balance 1305 ml 220 ml medications Current Medications Medications Dose Ordered Sig/Colleen Route Start Time Stop Time Status Last Admin Dose Admin Bacitracin/ Polymyxin B Sulfate 1 applic TID OP 06/27/24 22:00 07/10/24 05:54 1 APPLIC Dextrose 50 ml UD PRN IV 06/28/24 08:00 06/29/24 11:58 50 ML Heparin Sodium/ Dextrose 250 ml @ 13.896 mls/ hr Q18H IV 06/28/24 08:00 UNV Epoetin Eligio-epbx 10,000 unit MWF@2100 SC 06/29/24 21:00 07/08/24 21:43 10,000 UNIT Artificial Tears 2 drop Q6HP PRN EACHEYE 06/29/24 11:30 Amiodarone HCl 200 mg BID PO 06/30/24 22:00 07/09/24 21:51 200 MG Mexiletine HCl 150 mg Q8HR PO 06/30/24 22:00 07/10/24 05:53 150 MG Acetaminophen 650 mg Q4HP PRN PO 07/03/24 18:00 Albuterol 2.5 mg Q6HPRN PRN NEB 07/05/24 14:30 07/05/24 15:50 2.5 MG Ipratropium [place] 0.5 mg Q6HPRN PRN NEB 07/05/24 14:30 07/05/24 15:50 0.5 MG Morphine Sulfate 1 mg Q4HP PRN IV 07/05/24 15:45 07/09/24 14:59 1 MG Pantoprazole Sodium 40 mg DAILY@0600 PO 07/07/24 06:00 07/10/24 05:53 40 MG Ondansetron HCl 4 mg Q6HPRN PRN IV 07/06/24 12:45 07/06/24 21:10 4 MG Hydralazine HCl 10 mg Q6HP PRN IV 07/06/24 13:00 07/06/24 17:09 10 MG Albumin Human 100 ml @ 100 mls/hr SHADY PRN IV 07/06/24 19:30 Methylprednisolone Sodium Succinate 20 mg BID IV 07/08/24 22:00 07/09/24 22:06 20 MG laboratory and microbiology Laboratory Tests 07/10/24 05:11 Test 07/10/24 05:11 Range/Units Serum Glucose 163 H 74-106 mg/dL Assessment/Plan Patient is a 64-year-old gentleman who presented on June 27, 2024 for around a week of flu symptoms and upper left swellings. At the time of evaluation, the patient is being managed in unit. He is intubated and not source of history. Information was obtained by reviewing the chart. Reportedly, the patient had missed hemodialysis quite a few times before presentation as he felt sick. It is reported that he did have flu-like symptoms, eye congestion and diarrhea prior to presentation. While being managed on the floor, patient was found to be nonresponsive and was coded. There is no detailed information about the time of the code. There is question about PEA. The patient was intubated and was brought to the unit. Patient was seen by on-call bellows assembler at that point. At this point, we are called for Cardiology as the patient is known to us from before. There is no report of actual chest pain. It is of note that serial troponin has been negative. There is no available telemetry at the time of the episode. Is also of note that the patient does have BiV-ICD from before. Presently, the patient is admitted with septic shock. Patient was in the hospital around a month ago. And was managed for acute on chronic systolic heart failure, pancytopenia and pleural effusions (for which had pleurocentesis). He should have been on Eliquis as outpatient. Extubated. There are signs of conjunctivitis on bilateral eyes. No JVD. Mucosa is pink and wet. No carotid bruit. Lungs: Scattered rhonchi in the lungs is heard. Cardiac: Regular, systolic murmur 3/6 in the apex is heard. The site for ICD implantation looks clean with no erythema/ecchymosis/tenderness. Abdomen is soft. Bowel sound is positive. Extremities reveal 2+ edema bilaterally. AV fistula in the right upper extremity with thrill was observed. 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 Echocardiogram of April 08, 2024 had reported four-chamber dilatation, ejection fraction of 20%, [id number] MR/TR and right ventricular systolic pressure of 75 mm Hg Echocardiogram of May 19, 2024 had reported four-chamber dilatation, ejection fraction of 35%, D shaped septum, pulmonary hypertension, mobile interatrial septum, [id number] aortic insufficiency, mild mitral regurgitation, moderate TR and right ventricular systolic pressure of 80 mm Hg Hemoglobin: 7.2 - 7.2 - 8.0 - 5.5 - 8.8 - 8.7 - 7.4 - 7.5 - 7.8 - 7.7 - 7.4 - 7.5 - 7.7 - 9.6 - 9.7 - 8.7 - 9.4 Platelet: 102 - 111 - 106 - 99 - 89 - 69 - 70 - 52 - 53 - 68 - 87 - 131 - 115 - 146 Creatinine: 8.29 - 8.51 - 8.5 - 8.17 - 8.63 - 6.77 - 4.80 - 3.86 - 4.84 - 3.81 - 5.10 - 5.98 - 5.08 - 6.07 - 4.57 Potassium: 5.2 - 5.7 - 5.1 - 5.2 - 5.9 - 4.5 - 4.3 - 4.2 - 3.3 - 3.8 - 3.7 - 4.2 - 4.7 - 4.9 - 5.0 - 4.6 Lactic acid: 4.7 - 2.7 Troponin (high sensitive) 40 - 41 - 40 BNP: 2509.04 D-Dimer: 4.72 Digoxin: <0.14 Chest x-ray reported: FINDINGS: LUNGS AND PLEURAL SPACES: See below. HEART: Cardiomegaly with moderate congestion. Left cardiac. MEDIASTINUM: Unremarkable. Normal mediastinal contour. BONES/JOINTS: Unremarkable. No acute fracture. OTHER FINDINGS: . . . .. IMPRESSION: Cardiomegaly with moderate congestion. Repeat chest x-ray reported: Medical devices: The ETT ends above the level of elizabeth at the level of clavicular heads. The enteric tube extends to the stomach. Multi lead left upper chest wall AICD with leads extending to the cardiac chambers. Cardiomediastinal: The heart is moderately enlarged. Pulmonary vasculature is prominent. Atherosclerotic calcification of the aortic arch noted. Lungs: There is interval enlargement of now moderate-sized right pleural effusion and interval development of patchy consolidation in the right middle and left upper lung zone. Small opacities are noted in the left lung base. Diffuse bilateral interstitial opacities are noted. No pneumothorax. Bones/soft tissues: No acute abnormality is noted. Right subclavian vascular stents noted. IMPRESSION: 1. Worsening CHF with moderate right pleural effusion , interval development of extensive bilateral interstitial opacities and large patchy multifocal bilateral consolidations that may represent edema or pneumonia. Recommend clinical and biochemical correlation. Repeat chest xry reported: IMPRESSION: 1. Right basilar atelectasis or pneumonia. 2. Cardiomegaly with mild congestion. Repeat chest xry reported: IMPRESSION: 1. Right basilar atelectasis or pneumonia. Small bilateral pleural effusions. 2. Cardiomegaly with mild congestion. 3. Endotracheal tube now projects 6 cm above level the elizabeth in appropriate position. Repeat chest xry reported: IMPRESSION: 1. Cardiomegaly with pulmonary congestion and edema. Superimposed pneumonia cannot be excluded. 2. Right pleural effusion. Repeat chest xry reported: FINDINGS: VERTEBRAE: Unremarkable. No acute fracture. Normal alignment. No instability. DISC SPACES: No acute findings. No significant narrowing. SOFT TISSUES: Unremarkable. HEART: Left cardiac. Mild congestive heart failure. TUBES, LINES AND DEVICES: Enteric tube tip in the stomach. The endotracheal tube (ETT) is in satisfactory position. OTHER FINDINGS: . ... IMPRESSION: Mild congestive heart failure. Repeat chest xry revealed: IMPRESSION: Cardiomegaly with moderate congestion. Repeat chest xry revealed: IMPRESSION: 1. Mechanical ventilation with tubes and lines as above. 2. Right basilar infiltrate and effusion, improved. 3. Cardiomegaly. Repeat chest xry revealed: IMPRESSION: 1. Biventricular pacemaker in place 2. Bibasilar infiltrates right pleural effusion. Right pleural effusion appears to have slightly increased. This may be secondary to patient positioning. 3. Right subclavian stent in place unchanged from 07/04/2024.. Repeat chest xry revealed: Lines and Tubes: Left chest wall AICD. Left central venous catheter in satisfactory position. Lungs: Patchy bilateral airspace opacities. Pleura: Small bilateral pleural effusions, [id number]. No pneumothorax. Cardiomediastinal contours: Unremarkable Bones: Unremarkable IMPRESSION: Unchanged fluid overload. Repeat chest xry revealed: Lines and Tubes: Left chest wall AICD. Left central venous catheter in satisfactory position. Lungs: Mild congestion Pleura: Small right pleural effusion. No pneumothorax. Cardiomediastinal contours: Cardiomegaly Bones: Unremarkable IMPRESSION: Small right pleural effusion. Repeat chest xry revealed: IMPRESSION: Cardiomegaly with small bilateral pleural effusions and bibasilar opacities. Repeat chest xry revealed: IMPRESSION: Small right pneumothorax. Cardiomegaly with left lower lung consolidative opacity. Interval decrease in right pleural effusion compared to prior exam. Critical Result: Pneumothorax Repeat chest xry revealed: IMPRESSION: Interval resolution of previously seen right pneumothorax. Pulmonary edema. Small left pleural effusion. Chest ultrasound revealed: Findings/Impression: Moderate to large right pleural effusion. No left pleural effusion. Thoracentesis (07/09/2024): IMPRESSION: Ultrasound guided RIGHT thoracentesis. Venous duplex of left upper ext (07/09/2024): Impression: Thrombus in the left subclavian vein If clinical concern/symptoms persist or worsen, short-interval follow-up study is suggested. Upper ext (right) arterial duplex reported: IMPRESSION: 1. The right upper extremity brachial-cephalic AVF is thrombosed. 2. The right axillary stent is thrombosed. 3. The arteries of the right upper extremity including subclavian, axillary, brachial, radial and ulnar arteries are patent. CTA of lungs revealed: IMPRESSION: 1. No pulmonary embolism. 2. Large right and small left pleural effusion with associated bilateral atelectasis and consolidation. Patchy ground-glass opacities could represent pulmonary edema or an infectious / inflammatory process. Mediastinal lymphadenopathy similar to prior. Clinical correlation and continued follow-up is recommended. Overall appearance is worse compared to prior exam. CT of head reported: 1. No acute intracranial pathology. Cortical atrophy greater on the left. EKG revealed paced rhythm Telemetry revealed paced rhythm (it is of note that telemetry rhythm at the time of the code is not available to revealed) Echocardiogram reported: limited study. lvef 20% by visual estimate. postop septum. septum flattening noted. RV enlarged with dysfunction. biatrial enlargement. valves not assessed Medtronic ICD interrogation revealed: Remaining longevity of battery: 3.8 years; DDDR: 60/130; Pacing impedance: A 380 /RV 323/LV 304 Ohms; Shock impedance: RV 29 Ohms; Capture threshold: Atrial 0.5/RV 0.875 volts at 0.4 milliseconds; Program sensitivity: Atrial 0.3/RV 0.3 mV; Episodes: VT/VF: 1 resulting in shock; Changes performed: VTE detection interval was changed from 270 millisecond to 320 millisecond/VT detection interval was changed from 330 millisecond to 400 milliseconds Cardiac cath performed: Diagnosis: Nonobstructive coronary artery disease; Patent stents in mid LAD/proximal RCA/distal RCA; Negative FFR of 50% lesion in mid LAD; LVEDP of 10 mm Hg; Cardiac suggestions for management: Optimized medical therapy; Guideline directed medical therapy for systolic heart failure; Lifestyle and risk factor modification Patient is a 64-year-old gentleman who presented with flu-like symptoms, but later coded in the floor. No tele rhythm of the time of the code was available to review (at first). Reportedly there was PA. Stable serial high sensitive troponin is against acute coronary syndrome. Patient does have baseline history of heart failure and pulmonary hypertension. He also has Bi V ICD (interrogation revealed episode of v-fib/v-tach resulting in Defibrillation). Does have baseline history of noncompliance to medication/hemodialysis. Does have baseline history of pancytopenia and is found to have significant anemia. With respiratory failure and on vent support. Case discussed with Electrophysiology (Dr Tamayo). Acute arrest Rule out PA Questionable encephalopathy, anoxic versus toxic? Recent URI Septic shock s/p Defibrillation secondary to V-fib/Vtach Encephalopathy Baseline pulmonary hypertension Baseline systolic heart failure Status post Bi V ICD End-stage renal disease, Noncompliant with medication, followups and hemodialysis Pancytopenia History of GI bleeding Right pleural effusion s/p Right AV fistula thrombectomy central angioplasty and peripheral venous angioplasty by Vascular surgeon s/p thoracentesis resulting in pneumothorax DVT of left subclavian vein Cardiac suggestion for management: Manage in telemetry Follow-up electrolytes and kidney function tests and correct abnormalities Continue aspirin On Amiodarone and Mexiletine Optimized medical therapy; Guideline directed medical therapy for systolic heart failure Consider removal of central line from left neck Anticoagulation for subclavian vein DVT as per primary team Pulmonary follow up is advised. Further evaluation and management depends on the above and clinical course A total of 55 minutes was spent reviewing the patient record, examining the patient, making a diagnostic and therapeutic plan, discussing this plan with medical personnel, following up on diagnostic studies and following the patient for clinical stability excluding any and all procedures. At least 50% of this time was spent in direct, [id number] contact. Thank you for allowing me to participate in this patient's care. Further recommendations will depend on patient's clinical course. Please do not hesitate to contact me if you have any questions or concerns. This medical document was created using electronic medical record system with [employer] computerized dictation system. Although this document has been carefully reviewed, there may still be some phonetic and typographical errors. These areas are purely typographical due to the imperfection of the software programs, and do not reflect any compromise in the patient's medical care. Dietary Evaluation Review Comments: 1 Consider TPN per pharmacy if NPO>7 days. 2.TF Nepro@40ml/hr providing 78g pro, 1699 kcal in 24 hrs, if EN/GI accessible, 3.Renal standard diet if pt is off vent and passing a speech eval. offer Nepro PO supplements 240 ml as tolerated if PO intake is less than 50% Expected Outcomes/Goals: Off Vent, maintain wt, less uremic symptoms with his routine HD course. Plan discussed with: Other (nurse) SUSHMA WALKER MD Jul 10, 2024 07:37
[2024-07-10 10:31] LABS: Base Excess 0.7 mmol/L (-2.0-3.0)
--- NOTE | 2024-07-10 14:00 | DVH ---
Right Upper Extremity Arterial Duplex Clinical History: EVAL FISTULA Comparison: US RT UPPER EXT ART DUPLEX on DOS: 06/30/24 Technique: Duplex Doppler evaluation including color Doppler and spectral/pulsed waveform analysis of the upper extremity arteries was performed. Findings: RIGHT: Peak systolic velocities are as follows: Subclavian 104 cm/s Axillary 122 cm/s Brachial 95 cm/s Prox Radial 58 cm/s Prox Ulnar 73 cm/s Thrombus is seen at the mid and distal aspect of right upper extremity fistula. Thrombus is seen in the cephalic vein. IMPRESSION: Thrombus is seen at the mid and distal aspect of right upper extremity fistula. Thrombus is seen in the cephalic vein. Vascular surgery consultation recommended. REFERENCE VALUES, [facility] (PENDING SALE TO [facility]) vascular Imaging Lab Criteria: Peak systolic velocity ranges (in cm/sec) are as follows: <150 cm/s - <20 % stenosis 150-200 cm/s - 20-49% stenosis 200-300 cm/s - 50-75% stenosis >300 cm/s -> 75% stenosis
--- NOTE | 2024-07-10 16:25 | DVHPN2 ---
Progress Note Date Seen: Jul 10, 2024 Medical Necessity Reason Pt with a Central, PICC or Fol: Yes The following are medically ne: Central Line, Shaw Catheter Subjective Review of Systems: CVS:Abnormal Objective vital signs Vital Sign Date Time Temp Pulse Resp B/P (MAP) Pulse Ox O2 Delivery O2 Flow Rate FiO2 07/10/24 13:00 98.0 73 18 144/83 (103) 96 98.0 07/10/24 08:46 1.0 07/10/24 08:00 Nasal Cannula* 24 Total Intake and Output 07/09/24 07/09/24 07/10/24 15:00 23:00 07:00 Intake Total 1330 ml 240 ml Output Total 25 ml 20 ml Balance 1305 ml 220 ml medications Current Medications Medications Dose Ordered Sig/Colleen Route Start Time Stop Time Status Last Admin Dose Admin Bacitracin/ Polymyxin B Sulfate 1 applic TID OP 06/27/24 22:00 07/10/24 14:00 1 APPLIC Dextrose 50 ml UD PRN IV 06/28/24 08:00 06/29/24 11:58 50 ML Heparin Sodium/ Dextrose 250 ml @ 13.896 mls/ hr Q18H IV 06/28/24 08:00 UNV Epoetin Eligio-epbx 10,000 unit MWF@2100 SC 06/29/24 21:00 07/08/24 21:43 10,000 UNIT Artificial Tears 2 drop Q6HP PRN EACHEYE 06/29/24 11:30 Amiodarone HCl 200 mg BID PO 06/30/24 22:00 07/10/24 09:14 200 MG Mexiletine HCl 150 mg Q8HR PO 06/30/24 22:00 07/10/24 15:19 150 MG Acetaminophen 650 mg Q4HP PRN PO 07/03/24 18:00 Albuterol 2.5 mg Q6HPRN PRN NEB 07/05/24 14:30 07/05/24 15:50 2.5 MG Ipratropium [place] 0.5 mg Q6HPRN PRN NEB 07/05/24 14:30 07/05/24 15:50 0.5 MG Morphine Sulfate 1 mg Q4HP PRN IV 07/05/24 15:45 07/09/24 14:59 1 MG Pantoprazole Sodium 40 mg DAILY@0600 PO 07/07/24 06:00 07/10/24 05:53 40 MG Ondansetron HCl 4 mg Q6HPRN PRN IV 07/06/24 12:45 07/06/24 21:10 4 MG Hydralazine HCl 10 mg Q6HP PRN IV 07/06/24 13:00 07/06/24 17:09 10 MG Albumin Human 100 ml @ 100 mls/hr SHADY PRN IV 07/06/24 19:30 Methylprednisolone Sodium Succinate 20 mg BID IV 07/08/24 22:00 07/10/24 09:15 20 MG Examination: GENERAL:Abnormal, CVS:Abnormal, ABDOMEN:Abnormal laboratory and microbiology Laboratory Tests 07/10/24 05:11 Test 07/10/24 05:11 Range/Units Serum Glucose 163 H 74-106 mg/dL Microbiology Date/Time Source Procedure Growth Status 07/09/24 14:18 Pleural Fluid Gram Stain - Final Resulted 07/09/24 14:18 Pleural Fluid Body Fluid Culture - Preliminary Resulted 06/28/24 11:44 Nose MRSA Screen - Final Complete 06/28/24 08:05 Sputum Gram Stain - Final Complete 06/28/24 08:05 Sputum Respiratory Culture - Final Complete 06/28/24 07:55 Blood Blood Culture - Final Staphylococcus epidermidis Complete Problem List/Assessment/Plan Problem List/Assessment/Plan ESRD s/p cardiac arrest Pleural effusions s/p thoracentesis 1.5L removed CHF exacerbation Hx of Afib Hx of [place] HTN anemia due to CKD thrombosed Right AVF s/p surgical revision HD tomorrow daily fluid restriction epogen 3x a week cardiology AVF is thrombosed, IR for declot on saturday Plan discussed with: Patient Dietary Evaluation Review Comments: 1 Consider TPN per pharmacy if NPO>7 days. 2.TF Nepro@40ml/hr providing 78g pro, 1699 kcal in 24 hrs, if EN/GI accessible, 3.Renal standard diet if pt is off vent and passing a speech eval. offer Nepro PO supplements 240 ml as tolerated if PO intake is less than 50% Expected Outcomes/Goals: Off Vent, maintain wt, less uremic symptoms with his routine HD course. JOSE GUADALUPE ELLIOTT MD Jul 10, 2024 16:25
--- NOTE | 2024-07-10 20:14 | DVHPNRES ---
Progress Note Date Seen: Jul 10, 2024 Resident Creating Document: YVONNE DOMINGUEZ RESIDENT Medical Necessity Reason Pt with a Central, PICC or Fol: Yes The following are medically ne: Central Line, Shaw Catheter Subjective Review of Systems Patient examined at [facility], currently on NC 1L , he reports feeling better. AV fistula will be repair on saturday by IR. Tomorrow HD through Rajesh catheter. Patient alert and oriented x4 , he decided for full code. code status updated. Patient reports: Feels better Objective vital signs Vital Sign Date Time Temp Pulse Resp B/P (MAP) Pulse Ox O2 Delivery O2 Flow Rate FiO2 07/10/24 18:54 93 Nasal Cannula 1.0 07/10/24 18:54 24 07/10/24 17:25 98.3 66 17 138/76 (96) 98.3 Total Intake and Output 07/09/24 07/09/24 07/10/24 15:00 23:00 07:00 Intake Total 1330 ml 240 ml Output Total 25 ml 20 ml Balance 1305 ml 220 ml medications Current Medications Medications Dose Ordered Sig/Colleen Route Start Time Stop Time Status Last Admin Dose Admin Bacitracin/ Polymyxin B Sulfate 1 applic TID OP 06/27/24 22:00 07/10/24 14:00 1 APPLIC Dextrose 50 ml UD PRN IV 06/28/24 08:00 06/29/24 11:58 50 ML Heparin Sodium/ Dextrose 250 ml @ 13.896 mls/ hr Q18H IV 06/28/24 08:00 UNV Epoetin Eligio-epbx 10,000 unit MWF@2100 SC 06/29/24 21:00 07/08/24 21:43 10,000 UNIT Artificial Tears 2 drop Q6HP PRN EACHEYE 06/29/24 11:30 Amiodarone HCl 200 mg BID PO 06/30/24 22:00 07/10/24 09:14 200 MG Mexiletine HCl 150 mg Q8HR PO 06/30/24 22:00 07/10/24 15:19 150 MG Acetaminophen 650 mg Q4HP PRN PO 07/03/24 18:00 Albuterol 2.5 mg Q6HPRN PRN NEB 07/05/24 14:30 07/05/24 15:50 2.5 MG Ipratropium [place] 0.5 mg Q6HPRN PRN NEB 07/05/24 14:30 07/05/24 15:50 0.5 MG Morphine Sulfate 1 mg Q4HP PRN IV 07/05/24 15:45 07/10/24 16:28 1 MG Pantoprazole Sodium 40 mg DAILY@0600 PO 07/07/24 06:00 07/10/24 05:53 40 MG Ondansetron HCl 4 mg Q6HPRN PRN IV 07/06/24 12:45 07/06/24 21:10 4 MG Hydralazine HCl 10 mg Q6HP PRN IV 07/06/24 13:00 07/06/24 17:09 10 MG Albumin Human 100 ml @ 100 mls/hr SHADY PRN IV 07/06/24 19:30 Methylprednisolone Sodium Succinate 20 mg BID IV 07/08/24 22:00 07/10/24 09:15 20 MG Examination: GENERAL:Normal, HEENT:Normal, NECK:Normal, LUNGS:Normal, CVS:Normal, ABDOMEN:Normal, MSK:Abnormal, SKIN:Abnormal, NEURO:Normal, :Normal laboratory and microbiology Laboratory Tests 07/10/24 05:11 Test 07/10/24 05:11 Range/Units Serum Glucose 163 H 74-106 mg/dL Microbiology Date/Time Source Procedure Growth Status 07/09/24 14:18 Pleural Fluid Gram Stain - Final Resulted 07/09/24 14:18 Pleural Fluid Body Fluid Culture - Preliminary Resulted 06/28/24 11:44 Nose MRSA Screen - Final Complete 06/28/24 08:05 Sputum Gram Stain - Final Complete 06/28/24 08:05 Sputum Respiratory Culture - Final Complete 06/28/24 07:55 Blood Blood Culture - Final Staphylococcus epidermidis Complete Problem List/Assessment/Plan Problem List/Assessment/Plan Neurology: # acute encephalopathy due s/p cardiac arrest due to VTach/VFib #Patient extubated on 07/05 -Admitted to telemetry -Currently on NC 1L -Rajesh catheter for hemodialysis - Right AV fistula repair on saturday - PT eval Cardiovascular #Acute on chronic systolic heart failure NYHA III-IV #Cardiac arrest due to VT/VF #History of nonischemic cardiomyopathy #History of myocardial infarction #Severe pulmonary hypertension RVSP 75 mmHg #Atrial fibrillation #HFrEF 20% SP AICD/TOBACCO DRUMMER D/pace #CAD status post 3 stents -CT angiography unremarkable -Medtronic interrogation unremarkable -amiodarone po -mexiletine po Respiratory: #Acute hypoxemic respiratory failure due to HFrEF 20% exacerbation #Acute hypoxic hypercapnic respiratory failur # Respiratory acidosis #Bilateral infiltrates on chest x-ray possible aspiration pneumonia / pulmonary edema #Right pleural effusion S/P Pleural effusion #Pulmonary embolism ruled out - NC 1 L Renal: #ESRD on hemodialysis #Acute kidney injury on ESRD #Hyperkalemia,resolved #Hypoalbuminemia -hemodialysis through rajesh cath tomorrow -Right AV fistula repair , saturday Infectious disease: #Shock likely septic due to suspected UTI/aspiration pneumonia #Leukocytosis #Bilateral infiltrates likely due to possible aspiration pneumonia -resolved -daily CBC and CMP Endocrine #History of Type 2 diabetes Hematology: #Severe anemia status post 2 packed red blood cell transfusion in the setting of ESRD - Monitor CBC daily -H&H Case discussed with Critical care time spent: :48 minutes Code status: full code Plan discussed with: Patient, Other (sister) My Orders My Orders Orders - YVONNE DOMINGUEZ Procedure Category Date Status Time Abg W/ Co-Ox RT 07/10/24 Logged 09:58 * Radiologist Consult CONS 07/10/24 Transmitted 10:02 Full Code LETICIA 07/10/24 In Process 11:37 Dietary Evaluation Review Comments: 1 Consider TPN per pharmacy if NPO>7 days. 2.TF Nepro@40ml/hr providing 78g pro, 1699 kcal in 24 hrs, if EN/GI accessible, 3.Renal standard diet if pt is off vent and passing a speech eval. offer Nepro PO supplements 240 ml as tolerated if PO intake is less than 50% Expected Outcomes/Goals: Off Vent, maintain wt, less uremic symptoms with his routine HD course. Date of Service: Jul 10, 2024 Billing Provider: INDIA FERNANDEZ MD Common Visit Codes: NOT BILLABLE YVONNE DOMINGUEZ RESIDENT Jul 10, 2024 20:14 INDIA FERNANDEZ MD Jul 13, 2024 11:01
[2024-07-11] VITALS (9 sets, daily range): BP systolic 133–150; BP diastolic 73–84; PULSE 64–71; RESP 15–20; TEMP 97.1–97.9; O2SAT 92–97
[2024-07-11 07:44] LABS: Basophils # (auto) 0 10 ^3/uL (0-0.2); Basophils % (auto) 0.1 % (0.0-2.0); Eosinophils # (auto) 0 10 ^3/uL (0-0.8); Hematocrit 28.1 % (41.0-53.0); Hemoglobin 9.3 g/dL (13.5-17.5); Lymphocytes # (auto) 0.1 10 ^3/uL (0.4-5.4); Lymphocytes % (auto) 1.8 % (10.0-50.0); Mean Corpuscular Hemoglobin 31.8 pg (28.0-32.0); Mean Corpuscular Volume 96.5 fL (80.0-100.0); Monocytes # (auto) 0.2 10 ^3/uL (0-1.3); Monocytes % (auto) 2.7 % (0.0-12.0); Neutrophils % (auto) 95.4 % (37.0-80.0); Nucleated Red Blood Cells % 0.8 %; Platelet Count (auto) 152 10^3/uL (140-450); Red Blood Cells 2.91 10^6/uL (4.5-5.90); White Blood Cell 6.3 10^3/uL (4.4-10.8)
[2024-07-11 08:13] LABS: Albumin 3.6 g/dL (3.2-4.8); Alkaline Phosphatase 88 U/L (46-116); Anion Gap 12 (5-15); BUN/Creatinine Ratio 9.3 (10.0-20.0); Bilirubin, Total 0.6 mg/dL (0.2-1.0); Calcium 9.7 mg/dL (8.7-10.4); Carbon Dioxide 25 mmol/L (20-31); Potassium 4.6 mmol/L (3.5-5.1); Total Protein 6.3 g/dL (5.7-8.2)
[2024-07-11 08:17] LABS: Alanine Aminotransferase 263 U/L (7-40); Aspartate Aminotransferase 228 U/L (13-40); Blood Urea Nitrogen 52 mg/dL (9-23); Chloride 92 mmol/L (98-107); Glucose 150 mg/dL (74-106); Sodium 129 mmol/L (136-145)
--- NOTE | 2024-07-11 11:30 | DVHPN2 ---
Progress Note - Dictate Date Seen: Jul 11, 2024 Medical Necessity Reason Pt with a Central, PICC or Fol: Yes The following are medically ne: Central Line, Shaw Catheter vital signs Vital Sign Date Time Temp Pulse Resp B/P (MAP) Pulse Ox O2 Delivery O2 Flow Rate FiO2 07/11/24 09:48 66 16 150/76 07/11/24 09:00 97.4 92 97.4 07/11/24 07:56 Nasal Cannula 1.5 07/11/24 07:56 24 Total Intake and Output 07/10/24 07/10/24 07/11/24 15:00 23:00 07:00 Intake Total 200 ml 700 ml 100 ml Output Total 45 ml Balance 200 ml 655 ml 100 ml medications Current Medications Medications Dose Ordered Sig/Colleen Route Start Time Stop Time Status Last Admin Dose Admin Bacitracin/ Polymyxin B Sulfate 1 applic TID OP 06/27/24 22:00 07/11/24 05:35 1 APPLIC Dextrose 50 ml UD PRN IV 06/28/24 08:00 06/29/24 11:58 50 ML Heparin Sodium/ Dextrose 250 ml @ 13.896 mls/ hr Q18H IV 06/28/24 08:00 UNV Epoetin Eligio-epbx 10,000 unit MWF@2100 SC 06/29/24 21:00 07/10/24 21:21 10,000 UNIT Artificial Tears 2 drop Q6HP PRN EACHEYE 06/29/24 11:30 Amiodarone HCl 200 mg BID PO 06/30/24 22:00 07/11/24 09:47 200 MG Mexiletine HCl 150 mg Q8HR PO 06/30/24 22:00 07/11/24 05:34 150 MG Acetaminophen 650 mg Q4HP PRN PO 07/03/24 18:00 Albuterol 2.5 mg Q6HPRN PRN NEB 07/05/24 14:30 07/05/24 15:50 2.5 MG Ipratropium [place] 0.5 mg Q6HPRN PRN NEB 07/05/24 14:30 07/05/24 15:50 0.5 MG Morphine Sulfate 1 mg Q4HP PRN IV 07/05/24 15:45 07/11/24 09:48 1 MG Pantoprazole Sodium 40 mg DAILY@0600 PO 07/07/24 06:00 07/11/24 05:34 40 MG Ondansetron HCl 4 mg Q6HPRN PRN IV 07/06/24 12:45 07/06/24 21:10 4 MG Hydralazine HCl 10 mg Q6HP PRN IV 07/06/24 13:00 07/06/24 17:09 10 MG Albumin Human 100 ml @ 100 mls/hr SHADY PRN IV 07/06/24 19:30 Methylprednisolone Sodium Succinate 20 mg BID IV 07/08/24 22:00 07/11/24 09:47 20 MG laboratory and microbiology Laboratory Tests 07/11/24 06:28 Test 07/11/24 06:28 Range/Units Serum Glucose 150 H 74-106 mg/dL Assessment/Plan Patient is a 64-year-old gentleman who presented on June 27, 2024 for around a week of flu symptoms and upper left swellings. At the time of evaluation, the patient is being managed in unit. He is intubated and not source of history. Information was obtained by reviewing the chart. Reportedly, the patient had missed hemodialysis quite a few times before presentation as he felt sick. It is reported that he did have flu-like symptoms, eye congestion and diarrhea prior to presentation. While being managed on the floor, patient was found to be nonresponsive and was coded. There is no detailed information about the time of the code. There is question about PEA. The patient was intubated and was brought to the unit. Patient was seen by on-call grinder brake lining at that point. At this point, we are called for Cardiology as the patient is known to us from before. There is no report of actual chest pain. It is of note that serial troponin has been negative. There is no available telemetry at the time of the episode. Is also of note that the patient does have BiV-ICD from before. Presently, the patient is admitted with septic shock. Patient was in the hospital around a month ago. And was managed for acute on chronic systolic heart failure, pancytopenia and pleural effusions (for which had pleurocentesis). He should have been on Eliquis as outpatient. Extubated. There are signs of conjunctivitis on bilateral eyes. No JVD. Mucosa is pink and wet. No carotid bruit. Lungs: Scattered rhonchi in the lungs is heard. Cardiac: Regular, systolic murmur 3/6 in the apex is heard. The site for ICD implantation looks clean with no erythema/ecchymosis/tenderness. Abdomen is soft. Bowel sound is positive. Extremities reveal 2+ edema bilaterally. AV fistula in the right upper extremity with thrill was observed. 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 Echocardiogram of April 08, 2024 had reported four-chamber dilatation, ejection fraction of 20%, [id number] MR/TR and right ventricular systolic pressure of 75 mm Hg Echocardiogram of May 19, 2024 had reported four-chamber dilatation, ejection fraction of 35%, D shaped septum, pulmonary hypertension, mobile interatrial septum, [id number] aortic insufficiency, mild mitral regurgitation, moderate TR and right ventricular systolic pressure of 80 mm Hg Hemoglobin: 7.2 - 7.2 - 8.0 - 5.5 - 8.8 - 8.7 - 7.4 - 7.5 - 7.8 - 7.7 - 7.4 - 7.5 - 7.7 - 9.6 - 9.7 - 8.7 - 9.4 - 9.3 Platelet: 102 - 111 - 106 - 99 - 89 - 69 - 70 - 52 - 53 - 68 - 87 - 131 - 115 - 146 - 152 Creatinine: 8.29 - 8.51 - 8.5 - 8.17 - 8.63 - 6.77 - 4.80 - 3.86 - 4.84 - 3.81 - 5.10 - 5.98 - 5.08 - 6.07 - 4.57 - 5.62 Potassium: 5.2 - 5.7 - 5.1 - 5.2 - 5.9 - 4.5 - 4.3 - 4.2 - 3.3 - 3.8 - 3.7 - 4.2 - 4.7 - 4.9 - 5.0 - 4.6 - 4.6 Lactic acid: 4.7 - 2.7 Troponin (high sensitive) 40 - 41 - 40 BNP: 2509.04 D-Dimer: 4.72 Digoxin: <0.14 Chest x-ray reported: FINDINGS: LUNGS AND PLEURAL SPACES: See below. HEART: Cardiomegaly with moderate congestion. Left cardiac. MEDIASTINUM: Unremarkable. Normal mediastinal contour. BONES/JOINTS: Unremarkable. No acute fracture. OTHER FINDINGS: . . . .. IMPRESSION: Cardiomegaly with moderate congestion. Repeat chest x-ray reported: Medical devices: The ETT ends above the level of elizabeth at the level of clavicular heads. The enteric tube extends to the stomach. Multi lead left upper chest wall AICD with leads extending to the cardiac chambers. Cardiomediastinal: The heart is moderately enlarged. Pulmonary vasculature is prominent. Atherosclerotic calcification of the aortic arch noted. Lungs: There is interval enlargement of now moderate-sized right pleural effusion and interval development of patchy consolidation in the right middle and left upper lung zone. Small opacities are noted in the left lung base. Diffuse bilateral interstitial opacities are noted. No pneumothorax. Bones/soft tissues: No acute abnormality is noted. Right subclavian vascular stents noted. IMPRESSION: 1. Worsening CHF with moderate right pleural effusion , interval development of extensive bilateral interstitial opacities and large patchy multifocal bilateral consolidations that may represent edema or pneumonia. Recommend clinical and biochemical correlation. Repeat chest xry reported: IMPRESSION: 1. Right basilar atelectasis or pneumonia. 2. Cardiomegaly with mild congestion. Repeat chest xry reported: IMPRESSION: 1. Right basilar atelectasis or pneumonia. Small bilateral pleural effusions. 2. Cardiomegaly with mild congestion. 3. Endotracheal tube now projects 6 cm above level the elizabeth in appropriate position. Repeat chest xry reported: IMPRESSION: 1. Cardiomegaly with pulmonary congestion and edema. Superimposed pneumonia cannot be excluded. 2. Right pleural effusion. Repeat chest xry reported: FINDINGS: VERTEBRAE: Unremarkable. No acute fracture. Normal alignment. No instability. DISC SPACES: No acute findings. No significant narrowing. SOFT TISSUES: Unremarkable. HEART: Left cardiac. Mild congestive heart failure. TUBES, LINES AND DEVICES: Enteric tube tip in the stomach. The endotracheal tube (ETT) is in satisfactory position. OTHER FINDINGS: . ... IMPRESSION: Mild congestive heart failure. Repeat chest xry revealed: IMPRESSION: Cardiomegaly with moderate congestion. Repeat chest xry revealed: IMPRESSION: 1. Mechanical ventilation with tubes and lines as above. 2. Right basilar infiltrate and effusion, improved. 3. Cardiomegaly. Repeat chest xry revealed: IMPRESSION: 1. Biventricular pacemaker in place 2. Bibasilar infiltrates right pleural effusion. Right pleural effusion appears to have slightly increased. This may be secondary to patient positioning. 3. Right subclavian stent in place unchanged from 07/04/2024.. Repeat chest xry revealed: Lines and Tubes: Left chest wall AICD. Left central venous catheter in satisfactory position. Lungs: Patchy bilateral airspace opacities. Pleura: Small bilateral pleural effusions, [id number]. No pneumothorax. Cardiomediastinal contours: Unremarkable Bones: Unremarkable IMPRESSION: Unchanged fluid overload. Repeat chest xry revealed: Lines and Tubes: Left chest wall AICD. Left central venous catheter in satisfactory position. Lungs: Mild congestion Pleura: Small right pleural effusion. No pneumothorax. Cardiomediastinal contours: Cardiomegaly Bones: Unremarkable IMPRESSION: Small right pleural effusion. Repeat chest xry revealed: IMPRESSION: Cardiomegaly with small bilateral pleural effusions and bibasilar opacities. Repeat chest xry revealed: IMPRESSION: Small right pneumothorax. Cardiomegaly with left lower lung consolidative opacity. Interval decrease in right pleural effusion compared to prior exam. Critical Result: Pneumothorax Repeat chest xry revealed: IMPRESSION: Interval resolution of previously seen right pneumothorax. Pulmonary edema. Small left pleural effusion. Chest ultrasound revealed: Findings/Impression: Moderate to large right pleural effusion. No left pleural effusion. Thoracentesis (07/09/2024): IMPRESSION: Ultrasound guided RIGHT thoracentesis. Venous duplex of left upper ext (07/09/2024): Impression: Thrombus in the left subclavian vein If clinical concern/symptoms persist or worsen, short-interval follow-up study is suggested. Upper ext (right) arterial duplex reported: IMPRESSION: 1. The right upper extremity brachial-cephalic AVF is thrombosed. 2. The right axillary stent is thrombosed. 3. The arteries of the right upper extremity including subclavian, axillary, brachial, radial and ulnar arteries are patent. Repeat Upper ext (right) arterial duplex reported: IMPRESSION: Thrombus is seen at the mid and distal aspect of right upper extremity fistula. Thrombus is seen in the cephalic vein. Vascular surgery consultation recommended. CTA of lungs revealed: IMPRESSION: 1. No pulmonary embolism. 2. Large right and small left pleural effusion with associated bilateral atelectasis and consolidation. Patchy ground-glass opacities could represent pulmonary edema or an infectious / inflammatory process. Mediastinal lymphadenopathy similar to prior. Clinical correlation and continued follow-up is recommended. Overall appearance is worse compared to prior exam. CT of head reported: 1. No acute intracranial pathology. Cortical atrophy greater on the left. EKG revealed paced rhythm Telemetry revealed paced rhythm (it is of note that telemetry rhythm at the time of the code is not available to revealed) Echocardiogram reported: limited study. lvef 20% by visual estimate. postop septum. septum flattening noted. RV enlarged with dysfunction. biatrial enlargement. valves not assessed Medtronic ICD interrogation revealed: Remaining longevity of battery: 3.8 years; DDDR: 60/130; Pacing impedance: A 380 /RV 323/LV 304 Ohms; Shock impedance: RV 29 Ohms; Capture threshold: Atrial 0.5/RV 0.875 volts at 0.4 milliseconds; Program sensitivity: Atrial 0.3/RV 0.3 mV; Episodes: VT/VF: 1 resulting in shock; Changes performed: VTE detection interval was changed from 270 millisecond to 320 millisecond/VT detection interval was changed from 330 millisecond to 400 milliseconds Cardiac cath performed: Diagnosis: Nonobstructive coronary artery disease; Patent stents in mid LAD/proximal RCA/distal RCA; Negative FFR of 50% lesion in mid LAD; LVEDP of 10 mm Hg; Cardiac suggestions for management: Optimized medical therapy; Guideline directed medical therapy for systolic heart failure; Lifestyle and risk factor modification Patient is a 64-year-old gentleman who presented with flu-like symptoms, but later coded in the floor. No tele rhythm of the time of the code was available to review (at first). Reportedly there was PA. Stable serial high sensitive troponin is against acute coronary syndrome. Patient does have baseline history of heart failure and pulmonary hypertension. He also has Bi V ICD (interrogation revealed episode of v-fib/v-tach resulting in Defibrillation). Does have baseline history of noncompliance to medication/hemodialysis. Does have baseline history of pancytopenia and is found to have significant anemia. With respiratory failure and on vent support. Case discussed with Electrophysiology (Dr Tamayo). Acute arrest Rule out PA Questionable encephalopathy, anoxic versus toxic? Recent URI Septic shock s/p Defibrillation secondary to V-fib/Vtach Encephalopathy Baseline pulmonary hypertension Baseline systolic heart failure Status post Bi V ICD End-stage renal disease, Noncompliant with medication, followups and hemodialysis Pancytopenia History of GI bleeding Right pleural effusion s/p Right AV fistula thrombectomy central angioplasty and peripheral venous angioplasty by Vascular surgeon s/p thoracentesis resulting in pneumothorax DVT of left subclavian vein Cardiac suggestion for management: Manage in telemetry Follow-up electrolytes and kidney function tests and correct abnormalities Continue aspirin On Amiodarone and Mexiletine Optimized medical therapy; Guideline directed medical therapy for systolic heart failure Consider removal of central line from left neck Anticoagulation as per primary team Pulmonary follow up is advised. Management of right upper ext DVT as per primary team and vascular Further evaluation and management depends on the above and clinical course A total of 55 minutes was spent reviewing the patient record, examining the patient, making a diagnostic and therapeutic plan, discussing this plan with medical personnel, following up on diagnostic studies and following the patient for clinical stability excluding any and all procedures. At least 50% of this time was spent in direct, [id number] contact. Thank you for allowing me to participate in this patient's care. Further recommendations will depend on patient's clinical course. Please do not hesitate to contact me if you have any questions or concerns. This medical document was created using electronic medical record system with [employer] computerized dictation system. Although this document has been carefully reviewed, there may still be some phonetic and typographical errors. These areas are purely typographical due to the imperfection of the software programs, and do not reflect any compromise in the patient's medical care. Dietary Evaluation Review Comments: 1 Consider TPN per pharmacy if NPO>7 days. 2.TF Nepro@40ml/hr providing 78g pro, 1699 kcal in 24 hrs, if EN/GI accessible, 3.Renal standard diet if pt is off vent and passing a speech eval. offer Nepro PO supplements 240 ml as tolerated if PO intake is less than 50% Expected Outcomes/Goals: Off Vent, maintain wt, less uremic symptoms with his routine HD course. Plan discussed with: Patient, Other (nurse) SUSHMA WALKER MD Jul 11, 2024 11:30
[2024-07-11 12:07] LABS: Protein, Body Fluid 3.5 g/dL (.)
--- NOTE | 2024-07-11 12:08 | DVHPN2 ---
Reviewed: Care Plan, H&P, Labs, Medications, Previous Orders, Radiology Changes from previous H/P or p: No Changes General: Per HPI Objective Vitals Vital Signs Date Time Temp Pulse Resp B/P (MAP) Pulse Ox O2 Delivery O2 Flow Rate FiO2 07/11/24 09:48 66 16 150/76 07/11/24 09:00 97.4 92 97.4 07/11/24 08:00 Nasal Cannula* 1 24 Intake/Output Intake and Output 07/11/24 07:00 Intake Total 1000 ml Output Total 45 ml Balance 955 ml Intake Oral 1000 ml Output Urine Total 45 ml General Appearance: Alert, Cooperative, mild distress HEENT: Atraumatic, PERRLA, EOMI, Mucous membr. moist/pink Neck: Supple Lungs: Clear to auscultation, Normal air movement Cardiovascular: Regular rate, Normal S1, Normal S2, No murmurs, Gallops, Rubs Abdomen: Normal bowel sounds, Soft, No tenderness Neuro: Cranial nerves 3-12 NL Psych/Mental Status: Mental status NL Medications Current Medications Medications Dose Ordered Sig/Colleen Route Start Time Stop Time Status Last Admin Dose Admin Bacitracin/ Polymyxin B Sulfate 1 applic TID OP 06/27/24 22:00 07/11/24 05:35 1 APPLIC Dextrose 50 ml UD PRN IV 06/28/24 08:00 06/29/24 11:58 50 ML Heparin Sodium/ Dextrose 250 ml @ 13.896 mls/ hr Q18H IV 06/28/24 08:00 UNV Epoetin Eligio-epbx 10,000 unit MWF@2100 SC 06/29/24 21:00 07/10/24 21:21 10,000 UNIT Artificial Tears 2 drop Q6HP PRN EACHEYE 06/29/24 11:30 Amiodarone HCl 200 mg BID PO 06/30/24 22:00 07/11/24 09:47 200 MG Mexiletine HCl 150 mg Q8HR PO 06/30/24 22:00 07/11/24 05:34 150 MG Acetaminophen 650 mg Q4HP PRN PO 07/03/24 18:00 Albuterol 2.5 mg Q6HPRN PRN NEB 07/05/24 14:30 07/05/24 15:50 2.5 MG Ipratropium [place] 0.5 mg Q6HPRN PRN NEB 07/05/24 14:30 07/05/24 15:50 0.5 MG Morphine Sulfate 1 mg Q4HP PRN IV 07/05/24 15:45 07/11/24 09:48 1 MG Pantoprazole Sodium 40 mg DAILY@0600 PO 07/07/24 06:00 07/11/24 05:34 40 MG Ondansetron HCl 4 mg Q6HPRN PRN IV 07/06/24 12:45 07/06/24 21:10 4 MG Hydralazine HCl 10 mg Q6HP PRN IV 07/06/24 13:00 07/06/24 17:09 10 MG Albumin Human 100 ml @ 100 mls/hr SHADY PRN IV 07/06/24 19:30 Methylprednisolone Sodium Succinate 20 mg BID IV 07/08/24 22:00 07/11/24 09:47 20 MG Laboratory Results Laboratory Tests 07/11/24 06:28 Chemistry Test 07/11/24 06:28 Albumin 3.6 g/dL (3.2-4.8) Calcium Level 9.7 mg/dL (8.7-10.4) Total Protein 6.3 g/dL (5.7-8.2) LFT Test 07/11/24 06:28 Alanine Aminotransferase (ALT) 263 U/L (7-40) H Alkaline Phosphatase 88 U/L (46-116) Aspartate Amino Transferase (AST) 228 U/L (13-40) H Total Bilirubin 0.6 mg/dL (0.2-1.0) Microbiology Microbiology Date/Time Source Procedure Growth Status 07/09/24 14:18 Pleural Fluid Gram Stain - Final Resulted 07/09/24 14:18 Pleural Fluid Body Fluid Culture - Preliminary Resulted 06/28/24 11:44 Nose MRSA Screen - Final Complete 06/28/24 08:05 Sputum Gram Stain - Final Complete 06/28/24 08:05 Sputum Respiratory Culture - Final Complete 06/28/24 07:55 Blood Blood Culture - Final Staphylococcus epidermidis Complete Labs and/or images reviewed: Labs reviewed by me, Image(s) reviewed by me Assessment/Plan Assessment/Plan Covering for resident ESRD s/p cardiac arrest Pleural effusions s/p thoracentesis 1.5L removed CHF exacerbation Hx of Afib Hx of [place] HTN anemia due to CKD thrombosed Right AVF s/p surgical revision DVT left subclavian: Eliquis per protocol, Dr. Booth spoke to me and recommended blood thinner for DVT. Time Spent 65 minutes Plan discussed with: Patient Date of Service: Jul 11, 2024 Billing Provider: BETTY BRAUN MD Common Visit Codes: [id number] CARE 30-74 MIN BETTY BRAUN MD Jul 11, 2024 12:08
--- NOTE | 2024-07-11 15:02 | DVHPN2 ---
Progress Note Date Seen: Jul 11, 2024 Medical Necessity Reason Pt with a Central, PICC or Fol: Yes The following are medically ne: Central Line, Shaw Catheter Subjective Review of Systems: CVS:Abnormal Objective vital signs Vital Sign Date Time Temp Pulse Resp B/P (MAP) Pulse Ox O2 Delivery O2 Flow Rate FiO2 07/11/24 12:34 97.9 64 16 140/84 (102) 95 97.9 07/11/24 08:00 Nasal Cannula* 1 24 Total Intake and Output 07/10/24 07/10/24 07/11/24 15:00 23:00 07:00 Intake Total 200 ml 700 ml 100 ml Output Total 45 ml Balance 200 ml 655 ml 100 ml medications Current Medications Medications Dose Ordered Sig/Colleen Route Start Time Stop Time Status Last Admin Dose Admin Bacitracin/ Polymyxin B Sulfate 1 applic TID OP 06/27/24 22:00 07/11/24 13:23 1 APPLIC Dextrose 50 ml UD PRN IV 06/28/24 08:00 06/29/24 11:58 50 ML Heparin Sodium/ Dextrose 250 ml @ 13.896 mls/ hr Q18H IV 06/28/24 08:00 UNV Epoetin Eligio-epbx 10,000 unit MWF@2100 SC 06/29/24 21:00 07/10/24 21:21 10,000 UNIT Artificial Tears 2 drop Q6HP PRN EACHEYE 06/29/24 11:30 Amiodarone HCl 200 mg BID PO 06/30/24 22:00 07/11/24 09:47 200 MG Mexiletine HCl 150 mg Q8HR PO 06/30/24 22:00 07/11/24 13:22 150 MG Acetaminophen 650 mg Q4HP PRN PO 07/03/24 18:00 Albuterol 2.5 mg Q6HPRN PRN NEB 07/05/24 14:30 07/05/24 15:50 2.5 MG Ipratropium [place] 0.5 mg Q6HPRN PRN NEB 07/05/24 14:30 07/05/24 15:50 0.5 MG Morphine Sulfate 1 mg Q4HP PRN IV 07/05/24 15:45 07/11/24 09:48 1 MG Pantoprazole Sodium 40 mg DAILY@0600 PO 07/07/24 06:00 07/11/24 05:34 40 MG Ondansetron HCl 4 mg Q6HPRN PRN IV 07/06/24 12:45 07/06/24 21:10 4 MG Hydralazine HCl 10 mg Q6HP PRN IV 07/06/24 13:00 07/06/24 17:09 10 MG Albumin Human 100 ml @ 100 mls/hr SHADY PRN IV 07/06/24 19:30 Methylprednisolone Sodium Succinate 20 mg BID IV 07/08/24 22:00 07/11/24 09:47 20 MG Apixaban 10 mg BID PO 07/11/24 22:00 07/16/24 21:59 Examination: GENERAL:Abnormal, CVS:Abnormal, ABDOMEN:Normal, SKIN:Abnormal laboratory and microbiology Laboratory Tests 07/11/24 06:28 Test 07/11/24 06:28 Range/Units Serum Glucose 150 H 74-106 mg/dL Microbiology Date/Time Source Procedure Growth Status 07/09/24 14:18 Pleural Fluid Gram Stain - Final Resulted 07/09/24 14:18 Pleural Fluid Body Fluid Culture - Preliminary Resulted 06/28/24 11:44 Nose MRSA Screen - Final Complete 06/28/24 08:05 Sputum Gram Stain - Final Complete 06/28/24 08:05 Sputum Respiratory Culture - Final Complete 06/28/24 07:55 Blood Blood Culture - Final Staphylococcus epidermidis Complete Problem List/Assessment/Plan Problem List/Assessment/Plan ESRD s/p cardiac arrest Pleural effusions s/p thoracentesis 1.5L removed CHF exacerbation Hx of Afib Hx of [place] HTN anemia due to CKD hyponatremia thrombosed Right AVF s/p surgical revision HD tomorrow rescheduled for Saturday daily fluid restriction epogen 3x a week cardiology AVF is thrombosed, IR for declot on saturday Currently on eliquis for afib and subclavian DVT Plan discussed with: Patient Dietary Evaluation Review Comments: 1 Consider TPN per pharmacy if NPO>7 days. 2.TF Nepro@40ml/hr providing 78g pro, 1699 kcal in 24 hrs, if EN/GI accessible, 3.Renal standard diet if pt is off vent and passing a speech eval. offer Nepro PO supplements 240 ml as tolerated if PO intake is less than 50% Expected Outcomes/Goals: Off Vent, maintain wt, less uremic symptoms with his routine HD course. OLADELE,JOSE GUADALUPE M MD Jul 11, 2024 15:02
[2024-07-11] MEDS: APIXABAN 5 MG TAB PO SCH (21:15)
[2024-07-12] VITALS (8 sets, daily range): BP systolic 127–140; BP diastolic 76–85; PULSE 65–74; RESP 15–24; TEMP 97.5–98; O2SAT 90–97
[2024-07-12 06:55] LABS: Basophils # (auto) 0 10 ^3/uL (0-0.2); Eosinophils # (auto) 0 10 ^3/uL (0-0.8); Hematocrit 30.5 % (41.0-53.0); Lymphocytes # (auto) 0.1 10 ^3/uL (0.4-5.4); Lymphocytes % (auto) 1.8 % (10.0-50.0); Mean Corpuscular Hgb Conc. 32.7 g/dL (32.0-36.0); Mean Corpuscular Volume 97.9 fL (80.0-100.0); Monocytes # (auto) 0.2 10 ^3/uL (0-1.3); Monocytes % (auto) 2.7 % (0.0-12.0); Neutrophils # (auto) 6.4 10 ^3/uL (1.6-8.6); Neutrophils % (auto) 95.5 % (37.0-80.0); Nucleated Red Blood Cells % 1.2 %; Platelet Count (auto) 167 10^3/uL (140-450); Red Blood Cells 3.12 10^6/uL (4.5-5.90); Red Cell Distribution Width 18.9 % (11.8-14.3); White Blood Cell 6.7 10^3/uL (4.4-10.8)
[2024-07-12 07:22] LABS: Albumin 3.7 g/dL (3.2-4.8); Alkaline Phosphatase 88 U/L (46-116); Anion Gap 12 (5-15); BUN/Creatinine Ratio 10.1 (10.0-20.0); Calcium 10.2 mg/dL (8.7-10.4); Carbon Dioxide 22 mmol/L (20-31); Total Protein 6.4 g/dL (5.7-8.2)
[2024-07-12 07:23] LABS: Bilirubin, Total 0.6 mg/dL (0.2-1.0)
[2024-07-12 07:30] LABS: Alanine Aminotransferase 312 U/L (7-40); Aspartate Aminotransferase 218 U/L (13-40); Blood Urea Nitrogen 61 mg/dL (9-23); Chloride 94 mmol/L (98-107); Glucose 150 mg/dL (74-106); Potassium 5.4 mmol/L (3.5-5.1); Sodium 128 mmol/L (136-145)
--- NOTE | 2024-07-12 07:37 | DVHPN2 ---
Progress Note - Dictate Date Seen: Jul 12, 2024 Medical Necessity Reason Pt with a Central, PICC or Fol: Yes The following are medically ne: Central Line, Shaw Catheter vital signs Vital Sign Date Time Temp Pulse Resp B/P (MAP) Pulse Ox O2 Delivery O2 Flow Rate FiO2 07/12/24 05:52 94 Nasal Cannula 2.0 07/12/24 05:52 28 07/12/24 05:00 97.7 71 16 136/76 (96) 97.7 Total Intake and Output 07/11/24 07/11/24 07/12/24 15:00 23:00 07:00 Intake Total 625 ml 0 ml Output Total 50 ml 50 ml Balance 575 ml -50 ml medications Current Medications Medications Dose Ordered Sig/Colleen Route Start Time Stop Time Status Last Admin Dose Admin Bacitracin/ Polymyxin B Sulfate 1 applic TID OP 06/27/24 22:00 07/12/24 05:17 1 APPLIC Dextrose 50 ml UD PRN IV 06/28/24 08:00 06/29/24 11:58 50 ML Heparin Sodium/ Dextrose 250 ml @ 13.896 mls/ hr Q18H IV 06/28/24 08:00 UNV Epoetin Eligio-epbx 10,000 unit MWF@2100 SC 06/29/24 21:00 07/10/24 21:21 10,000 UNIT Artificial Tears 2 drop Q6HP PRN EACHEYE 06/29/24 11:30 Amiodarone HCl 200 mg BID PO 06/30/24 22:00 07/11/24 21:15 200 MG Mexiletine HCl 150 mg Q8HR PO 06/30/24 22:00 07/12/24 05:16 150 MG Acetaminophen 650 mg Q4HP PRN PO 07/03/24 18:00 Morphine Sulfate 1 mg Q4HP PRN IV 07/05/24 15:45 07/11/24 21:43 1 MG Pantoprazole Sodium 40 mg DAILY@0600 PO 07/07/24 06:00 07/12/24 05:16 40 MG Ondansetron HCl 4 mg Q6HPRN PRN IV 07/06/24 12:45 07/06/24 21:10 4 MG Hydralazine HCl 10 mg Q6HP PRN IV 07/06/24 13:00 07/06/24 17:09 10 MG Albumin Human 100 ml @ 100 mls/hr SHADY PRN IV 07/06/24 19:30 Methylprednisolone Sodium Succinate 20 mg BID IV 07/08/24 22:00 07/11/24 21:14 20 MG Apixaban 10 mg BID PO 07/11/24 22:00 07/16/24 21:59 07/11/24 21:15 10 MG laboratory and microbiology Laboratory Tests 07/12/24 06:08 Test 07/12/24 06:08 Range/Units Serum Glucose 150 H 74-106 mg/dL Assessment/Plan Patient is a 64-year-old gentleman who presented on June 27, 2024 for around a week of flu symptoms and upper left swellings. At the time of evaluation, the patient is being managed in unit. He is intubated and not source of history. Information was obtained by reviewing the chart. Reportedly, the patient had missed hemodialysis quite a few times before presentation as he felt sick. It is reported that he did have flu-like symptoms, eye congestion and diarrhea prior to presentation. While being managed on the floor, patient was found to be nonresponsive and was coded. There is no detailed information about the time of the code. There is question about PEA. The patient was intubated and was brought to the unit. Patient was seen by on-call labor service representative at that point. At this point, we are called for Cardiology as the patient is known to us from before. There is no report of actual chest pain. It is of note that serial troponin has been negative. There is no available telemetry at the time of the episode. Is also of note that the patient does have BiV-ICD from before. Presently, the patient is admitted with septic shock. Patient was in the hospital around a month ago. And was managed for acute on chronic systolic heart failure, pancytopenia and pleural effusions (for which had pleurocentesis). He should have been on Eliquis as outpatient. Extubated. There are signs of conjunctivitis on bilateral eyes. No JVD. Mucosa is pink and wet. No carotid bruit. Lungs: Scattered rhonchi in the lungs is heard. Cardiac: Regular, systolic murmur 3/6 in the apex is heard. The site for ICD implantation looks clean with no erythema/ecchymosis/tenderness. Abdomen is soft. Bowel sound is positive. Extremities reveal 2+ edema bilaterally. AV fistula in the right upper extremity with thrill was observed. 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 Echocardiogram of April 08, 2024 had reported four-chamber dilatation, ejection fraction of 20%, [id number] MR/TR and right ventricular systolic pressure of 75 mm Hg Echocardiogram of May 19, 2024 had reported four-chamber dilatation, ejection fraction of 35%, D shaped septum, pulmonary hypertension, mobile interatrial septum, [id number] aortic insufficiency, mild mitral regurgitation, moderate TR and right ventricular systolic pressure of 80 mm Hg Hemoglobin: 7.2 - 7.2 - 8.0 - 5.5 - 8.8 - 8.7 - 7.4 - 7.5 - 7.8 - 7.7 - 7.4 - 7.5 - 7.7 - 9.6 - 9.7 - 8.7 - 9.4 - 9.3 - 10.0 Platelet: 102 - 111 - 106 - 99 - 89 - 69 - 70 - 52 - 53 - 68 - 87 - 131 - 115 - 146 - 152 - 167 Creatinine: 8.29 - 8.51 - 8.5 - 8.17 - 8.63 - 6.77 - 4.80 - 3.86 - 4.84 - 3.81 - 5.10 - 5.98 - 5.08 - 6.07 - 4.57 - 5.62 - 6.04 Potassium: 5.2 - 5.7 - 5.1 - 5.2 - 5.9 - 4.5 - 4.3 - 4.2 - 3.3 - 3.8 - 3.7 - 4.2 - 4.7 - 4.9 - 5.0 - 4.6 - 4.6 - 5.4 Lactic acid: 4.7 - 2.7 Troponin (high sensitive) 40 - 41 - 40 BNP: 2509.04 D-Dimer: 4.72 Digoxin: <0.14 Chest x-ray reported: FINDINGS: LUNGS AND PLEURAL SPACES: See below. HEART: Cardiomegaly with moderate congestion. Left cardiac. MEDIASTINUM: Unremarkable. Normal mediastinal contour. BONES/JOINTS: Unremarkable. No acute fracture. OTHER FINDINGS: . . . .. IMPRESSION: Cardiomegaly with moderate congestion. Repeat chest x-ray reported: Medical devices: The ETT ends above the level of elizabeth at the level of clavicular heads. The enteric tube extends to the stomach. Multi lead left upper chest wall AICD with leads extending to the cardiac chambers. Cardiomediastinal: The heart is moderately enlarged. Pulmonary vasculature is prominent. Atherosclerotic calcification of the aortic arch noted. Lungs: There is interval enlargement of now moderate-sized right pleural effusion and interval development of patchy consolidation in the right middle and left upper lung zone. Small opacities are noted in the left lung base. Diffuse bilateral interstitial opacities are noted. No pneumothorax. Bones/soft tissues: No acute abnormality is noted. Right subclavian vascular stents noted. IMPRESSION: 1. Worsening CHF with moderate right pleural effusion , interval development of extensive bilateral interstitial opacities and large patchy multifocal bilateral consolidations that may represent edema or pneumonia. Recommend clinical and biochemical correlation. Repeat chest xry reported: IMPRESSION: 1. Right basilar atelectasis or pneumonia. 2. Cardiomegaly with mild congestion. Repeat chest xry reported: IMPRESSION: 1. Right basilar atelectasis or pneumonia. Small bilateral pleural effusions. 2. Cardiomegaly with mild congestion. 3. Endotracheal tube now projects 6 cm above level the elizabeth in appropriate position. Repeat chest xry reported: IMPRESSION: 1. Cardiomegaly with pulmonary congestion and edema. Superimposed pneumonia cannot be excluded. 2. Right pleural effusion. Repeat chest xry reported: FINDINGS: VERTEBRAE: Unremarkable. No acute fracture. Normal alignment. No instability. DISC SPACES: No acute findings. No significant narrowing. SOFT TISSUES: Unremarkable. HEART: Left cardiac. Mild congestive heart failure. TUBES, LINES AND DEVICES: Enteric tube tip in the stomach. The endotracheal tube (ETT) is in satisfactory position. OTHER FINDINGS: . ... IMPRESSION: Mild congestive heart failure. Repeat chest xry revealed: IMPRESSION: Cardiomegaly with moderate congestion. Repeat chest xry revealed: IMPRESSION: 1. Mechanical ventilation with tubes and lines as above. 2. Right basilar infiltrate and effusion, improved. 3. Cardiomegaly. Repeat chest xry revealed: IMPRESSION: 1. Biventricular pacemaker in place 2. Bibasilar infiltrates right pleural effusion. Right pleural effusion appears to have slightly increased. This may be secondary to patient positioning. 3. Right subclavian stent in place unchanged from 07/04/2024.. Repeat chest xry revealed: Lines and Tubes: Left chest wall AICD. Left central venous catheter in satisfactory position. Lungs: Patchy bilateral airspace opacities. Pleura: Small bilateral pleural effusions, [id number]. No pneumothorax. Cardiomediastinal contours: Unremarkable Bones: Unremarkable IMPRESSION: Unchanged fluid overload. Repeat chest xry revealed: Lines and Tubes: Left chest wall AICD. Left central venous catheter in satisfactory position. Lungs: Mild congestion Pleura: Small right pleural effusion. No pneumothorax. Cardiomediastinal contours: Cardiomegaly Bones: Unremarkable IMPRESSION: Small right pleural effusion. Repeat chest xry revealed: IMPRESSION: Cardiomegaly with small bilateral pleural effusions and bibasilar opacities. Repeat chest xry revealed: IMPRESSION: Small right pneumothorax. Cardiomegaly with left lower lung consolidative opacity. Interval decrease in right pleural effusion compared to prior exam. Critical Result: Pneumothorax Repeat chest xry revealed: IMPRESSION: Interval resolution of previously seen right pneumothorax. Pulmonary edema. Small left pleural effusion. Chest ultrasound revealed: Findings/Impression: Moderate to large right pleural effusion. No left pleural effusion. Thoracentesis (07/09/2024): IMPRESSION: Ultrasound guided RIGHT thoracentesis. Venous duplex of left upper ext (07/09/2024): Impression: Thrombus in the left subclavian vein If clinical concern/symptoms persist or worsen, short-interval follow-up study is suggested. Upper ext (right) arterial duplex reported: IMPRESSION: 1. The right upper extremity brachial-cephalic AVF is thrombosed. 2. The right axillary stent is thrombosed. 3. The arteries of the right upper extremity including subclavian, axillary, brachial, radial and ulnar arteries are patent. Repeat Upper ext (right) arterial duplex reported: IMPRESSION: Thrombus is seen at the mid and distal aspect of right upper extremity fistula. Thrombus is seen in the cephalic vein. Vascular surgery consultation recommended. CTA of lungs revealed: IMPRESSION: 1. No pulmonary embolism. 2. Large right and small left pleural effusion with associated bilateral atelectasis and consolidation. Patchy ground-glass opacities could represent pulmonary edema or an infectious / inflammatory process. Mediastinal lymphadenopathy similar to prior. Clinical correlation and continued follow-up is recommended. Overall appearance is worse compared to prior exam. CT of head reported: 1. No acute intracranial pathology. Cortical atrophy greater on the left. EKG revealed paced rhythm Telemetry revealed paced rhythm (it is of note that telemetry rhythm at the time of the code is not available to revealed) Echocardiogram reported: limited study. lvef 20% by visual estimate. postop septum. septum flattening noted. RV enlarged with dysfunction. biatrial enlargement. valves not assessed Medtronic ICD interrogation revealed: Remaining longevity of battery: 3.8 years; DDDR: 60/130; Pacing impedance: A 380 /RV 323/LV 304 Ohms; Shock impedance: RV 29 Ohms; Capture threshold: Atrial 0.5/RV 0.875 volts at 0.4 milliseconds; Program sensitivity: Atrial 0.3/RV 0.3 mV; Episodes: VT/VF: 1 resulting in shock; Changes performed: VTE detection interval was changed from 270 millisecond to 320 millisecond/VT detection interval was changed from 330 millisecond to 400 milliseconds Cardiac cath performed: Diagnosis: Nonobstructive coronary artery disease; Patent stents in mid LAD/proximal RCA/distal RCA; Negative FFR of 50% lesion in mid LAD; LVEDP of 10 mm Hg; Cardiac suggestions for management: Optimized medical therapy; Guideline directed medical therapy for systolic heart failure; Lifestyle and risk factor modification Patient is a 64-year-old gentleman who presented with flu-like symptoms, but later coded in the floor. No tele rhythm of the time of the code was available to review (at first). Reportedly there was PA. Stable serial high sensitive troponin is against acute coronary syndrome. Patient does have baseline history of heart failure and pulmonary hypertension. He also has Bi V ICD (interrogation revealed episode of v-fib/v-tach resulting in Defibrillation). Does have baseline history of noncompliance to medication/hemodialysis. Does have baseline history of pancytopenia and is found to have significant anemia. With respiratory failure and on vent support. Case discussed with Electrophysiology (Dr Tamayo). Acute arrest Rule out PA Questionable encephalopathy, anoxic versus toxic? Recent URI Septic shock s/p Defibrillation secondary to V-fib/Vtach Encephalopathy Baseline pulmonary hypertension Baseline systolic heart failure Status post Bi V ICD End-stage renal disease, Noncompliant with medication, followups and hemodialysis Pancytopenia History of GI bleeding Right pleural effusion s/p Right AV fistula thrombectomy central angioplasty and peripheral venous angioplasty by Vascular surgeon s/p thoracentesis resulting in pneumothorax DVT of left subclavian vein Cardiac suggestion for management: Manage in telemetry Follow-up electrolytes and kidney function tests and correct abnormalities On Amiodarone and Mexiletine Optimized medical therapy; Guideline directed medical therapy for systolic heart failure Consider removal of central line from left neck Anticoagulation as per primary team Pulmonary follow up is advised. Management of right upper ext DVT as per primary team and vascular Further evaluation and management depends on the above and clinical course A total of 55 minutes was spent reviewing the patient record, examining the patient, making a diagnostic and therapeutic plan, discussing this plan with medical personnel, following up on diagnostic studies and following the patient for clinical stability excluding any and all procedures. At least 50% of this time was spent in direct, [id number] contact. Thank you for allowing me to participate in this patient's care. Further recommendations will depend on patient's clinical course. Please do not hesitate to contact me if you have any questions or concerns. This medical document was created using electronic medical record system with [employer] computerized dictation system. Although this document has been carefully reviewed, there may still be some phonetic and typographical errors. These areas are purely typographical due to the imperfection of the software programs, and do not reflect any compromise in the patient's medical care. Dietary Evaluation Review Comments: 1) Add renal restriction to mechanical soft diet order 2) Initiate Nepro bid 3) Continue to promote PO intake 4) Continue to monitor appetite, labs, and skin integrity Expected Outcomes/Goals: 1) appetite and labs to improve 2) wound to improve 3) f/u in 5 days Plan discussed with: Patient, Other (nurse) SUSHMA WALKER MD Jul 12, 2024 07:37
--- NOTE | 2024-07-12 09:05 | DVHPN2 ---
Reviewed: Care Plan, H&P, Labs, Medications, Previous Orders, Radiology Changes from previous H/P or p: No Changes General: Per HPI Objective Vitals Vital Signs Date Time Temp Pulse Resp B/P (MAP) Pulse Ox O2 Delivery O2 Flow Rate FiO2 07/12/24 05:52 94 Nasal Cannula 2.0 07/12/24 05:52 28 07/12/24 05:00 97.7 71 16 136/76 (96) 97.7 Intake/Output Intake and Output 07/12/24 07:00 Intake Total 625 ml Output Total 100 ml Balance 525 ml Intake Oral 625 ml Output Urine Total 100 ml General Appearance: Alert, Cooperative, mild distress HEENT: Atraumatic, PERRLA, EOMI, Mucous membr. moist/pink Neck: Supple Lungs: Clear to auscultation, Normal air movement Cardiovascular: Regular rate, Normal S1, Normal S2, No murmurs, Gallops, Rubs Abdomen: Normal bowel sounds, Soft, No tenderness Neuro: Cranial nerves 3-12 NL Psych/Mental Status: Mental status NL Medications Current Medications Medications Dose Ordered Sig/Colleen Route Start Time Stop Time Status Last Admin Dose Admin Bacitracin/ Polymyxin B Sulfate 1 applic TID OP 06/27/24 22:00 07/12/24 05:17 1 APPLIC Dextrose 50 ml UD PRN IV 06/28/24 08:00 06/29/24 11:58 50 ML Heparin Sodium/ Dextrose 250 ml @ 13.896 mls/ hr Q18H IV 06/28/24 08:00 UNV Epoetin Eligio-epbx 10,000 unit MWF@2100 SC 06/29/24 21:00 07/10/24 21:21 10,000 UNIT Artificial Tears 2 drop Q6HP PRN EACHEYE 06/29/24 11:30 Amiodarone HCl 200 mg BID PO 06/30/24 22:00 07/11/24 21:15 200 MG Mexiletine HCl 150 mg Q8HR PO 06/30/24 22:00 07/12/24 05:16 150 MG Acetaminophen 650 mg Q4HP PRN PO 07/03/24 18:00 Morphine Sulfate 1 mg Q4HP PRN IV 07/05/24 15:45 07/11/24 21:43 1 MG Pantoprazole Sodium 40 mg DAILY@0600 PO 07/07/24 06:00 07/12/24 05:16 40 MG Ondansetron HCl 4 mg Q6HPRN PRN IV 07/06/24 12:45 07/06/24 21:10 4 MG Hydralazine HCl 10 mg Q6HP PRN IV 07/06/24 13:00 07/06/24 17:09 10 MG Albumin Human 100 ml @ 100 mls/hr SHADY PRN IV 07/06/24 19:30 Methylprednisolone Sodium Succinate 20 mg BID IV 07/08/24 22:00 07/11/24 21:14 20 MG Apixaban 10 mg BID PO 07/11/24 22:00 07/16/24 21:59 07/11/24 21:15 10 MG Laboratory Results Laboratory Tests 07/12/24 06:08 Chemistry Test 07/12/24 06:08 Albumin 3.7 g/dL (3.2-4.8) Calcium Level 10.2 mg/dL (8.7-10.4) Total Protein 6.4 g/dL (5.7-8.2) LFT Test 07/12/24 06:08 Alanine Aminotransferase (ALT) 312 U/L (7-40) H Alkaline Phosphatase 88 U/L (46-116) Aspartate Amino Transferase (AST) 218 U/L (13-40) H Total Bilirubin 0.6 mg/dL (0.2-1.0) Microbiology Microbiology Date/Time Source Procedure Growth Status 07/09/24 14:18 Pleural Fluid Gram Stain - Final Resulted 07/09/24 14:18 Pleural Fluid Body Fluid Culture - Preliminary Resulted 06/28/24 11:44 Nose MRSA Screen - Final Complete 06/28/24 08:05 Sputum Gram Stain - Final Complete 06/28/24 08:05 Sputum Respiratory Culture - Final Complete 06/28/24 07:55 Blood Blood Culture - Final Staphylococcus epidermidis Complete Labs and/or images reviewed: Labs reviewed by me, Image(s) reviewed by me Assessment/Plan Assessment/Plan Covering for resident ESRD s/p cardiac arrest Pleural effusions s/p thoracentesis 1.5L removed CHF exacerbation Hx of Afib Hx of FL HTN anemia due to CKD thrombosed Right AVF s/p surgical revision DVT left subclavian: Eliquis per protocol, Dr. Booth spoke to me and recommended blood thinner for DVT. Time Spent 55 minutes Plan discussed with: Patient My Orders Orders - BETTY BRAUN MD Procedure Category Date Status Time Apixaban (Eliquis) PHA 07/11/24 In Process 22:00 Comprehensive LAB 07/13/24 Verified Metabolic Panel 06:00 Complete Blood Count LAB 07/13/24 Verified 06:00 Date of Service: Jul 12, 2024 Billing Provider: BETTY BRAUN MD Common Visit Codes: [id number] INP/OBS CARE(HIGH) BETTY BRAUN MD Jul 12, 2024 09:05
[2024-07-12] MEDS: SODIUM CHL 0.9% 1000 ML BAG XX ONE (10:45)
--- NOTE | 2024-07-12 13:11 | DVHPN2 ---
Progress Note Date Seen: Jul 12, 2024 Medical Necessity Reason Pt with a Central, PICC or Fol: Yes The following are medically ne: Central Line, Shaw Catheter Subjective Review of Systems: RESPIRATORY:Abnormal Objective vital signs Vital Sign Date Time Temp Pulse Resp B/P (MAP) Pulse Ox O2 Delivery O2 Flow Rate FiO2 07/12/24 13:00 98.0 70 24 137/83 (101) 94 98.0 07/12/24 08:00 Nasal Cannula* 1 24 Total Intake and Output 07/11/24 07/11/24 07/12/24 15:00 23:00 07:00 Intake Total 625 ml 0 ml Output Total 50 ml 50 ml Balance 575 ml -50 ml medications Current Medications Medications Dose Ordered Sig/Colleen Route Start Time Stop Time Status Last Admin Dose Admin Bacitracin/ Polymyxin B Sulfate 1 applic TID OP 06/27/24 22:00 07/12/24 05:17 1 APPLIC Dextrose 50 ml UD PRN IV 06/28/24 08:00 06/29/24 11:58 50 ML Heparin Sodium/ Dextrose 250 ml @ 13.896 mls/ hr Q18H IV 06/28/24 08:00 UNV Epoetin Eligio-epbx 10,000 unit MWF@2100 SC 06/29/24 21:00 07/10/24 21:21 10,000 UNIT Artificial Tears 2 drop Q6HP PRN EACHEYE 06/29/24 11:30 Amiodarone HCl 200 mg BID PO 06/30/24 22:00 07/12/24 09:42 200 MG Mexiletine HCl 150 mg Q8HR PO 06/30/24 22:00 07/12/24 05:16 150 MG Acetaminophen 650 mg Q4HP PRN PO 07/03/24 18:00 Morphine Sulfate 1 mg Q4HP PRN IV 07/05/24 15:45 07/11/24 21:43 1 MG Pantoprazole Sodium 40 mg DAILY@0600 PO 07/07/24 06:00 07/12/24 05:16 40 MG Ondansetron HCl 4 mg Q6HPRN PRN IV 07/06/24 12:45 07/12/24 10:55 4 MG Hydralazine HCl 10 mg Q6HP PRN IV 07/06/24 13:00 07/06/24 17:09 10 MG Albumin Human 100 ml @ 100 mls/hr SHADY PRN IV 07/06/24 19:30 Methylprednisolone Sodium Succinate 20 mg BID IV 07/08/24 22:00 07/12/24 09:43 20 MG Apixaban 10 mg BID PO 07/11/24 22:00 07/16/24 21:59 07/12/24 09:43 10 MG Examination: GENERAL:Abnormal, CVS:Abnormal, ABDOMEN:Abnormal laboratory and microbiology Laboratory Tests 07/12/24 06:08 Test 07/12/24 06:08 Range/Units Serum Glucose 150 H 74-106 mg/dL Microbiology Date/Time Source Procedure Growth Status 07/09/24 14:18 Pleural Fluid Gram Stain - Final Resulted 07/09/24 14:18 Pleural Fluid Body Fluid Culture - Preliminary Resulted 06/28/24 11:44 Nose MRSA Screen - Final Complete 06/28/24 08:05 Sputum Gram Stain - Final Complete 06/28/24 08:05 Sputum Respiratory Culture - Final Complete 06/28/24 07:55 Blood Blood Culture - Final Staphylococcus epidermidis Complete Problem List/Assessment/Plan Problem List/Assessment/Plan ESRD s/p cardiac arrest Pleural effusions s/p thoracentesis 1.5L removed CHF exacerbation Hx of Afib Hx of [place] HTN anemia due to CKD hyponatremia thrombosed Right AVF s/p surgical revision HD today, 2k bath daily fluid restriction epogen 3x a week cardiology AVF is thrombosed, IR for declot on saturday Currently on eliquis for afib and subclavian DVT Plan discussed with: Patient My Orders My Orders Orders - JOSE GUADALUPE ELLIOTT MD Procedure Category Date Status Time Hemodialysis Orders ORDERS 07/12/24 Transmitted 10:59 Dialysis Nursing LETICIA 07/12/24 In Process Message 10:59 Document Fluid Input LETICIA 07/12/24 In Process And Outpu 10:59 Dietary Evaluation Review Comments: 1) Add renal restriction to mechanical soft diet order 2) Initiate Nepro bid 3) Continue to promote PO intake 4) Continue to monitor appetite, labs, and skin integrity Expected Outcomes/Goals: 1) appetite and labs to improve 2) wound to improve 3) f/u in 5 days JOSE GUADALUPE ELLIOTT MD Jul 12, 2024 13:11
[2024-07-13] VITALS (15 sets, daily range): BP systolic 117–138; BP diastolic 73–86; PULSE 62–85; RESP 14–20; TEMP 97.2–98.2; O2SAT 96–100
[2024-07-13 06:16] LABS: Hemoglobin 10.8 g/dL (13.5-17.5); Mean Corpuscular Hemoglobin 31.8 pg (28.0-32.0); Mean Corpuscular Hgb Conc. 32.6 g/dL (32.0-36.0); Mean Corpuscular Volume 97.4 fL (80.0-100.0); Platelet Count (auto) 169 10^3/uL (140-450); Red Blood Cells 3.39 10^6/uL (4.5-5.90); Red Cell Distribution Width 19.1 % (11.8-14.3); White Blood Cell 7.1 10^3/uL (4.4-10.8)
[2024-07-13 06:23] LABS: INR 1.3 (0.9-1.15); Partial Thromboplastin Time 34.2 SEC (24.5-34.5); Prothrombin Time 13.4 sec (9.3-11.8)
[2024-07-13 06:36] LABS: Albumin 3.8 g/dL (3.2-4.8); Alkaline Phosphatase 95 U/L (46-116); Anion Gap 11 (5-15); BUN/Creatinine Ratio 10.5 (10.0-20.0); Calcium 10.1 mg/dL (8.7-10.4); Carbon Dioxide 25 mmol/L (20-31); Total Protein 6.6 g/dL (5.7-8.2)
[2024-07-13 06:37] LABS: Bilirubin, Total 0.6 mg/dL (0.2-1.0)
[2024-07-13 06:46] LABS: Alanine Aminotransferase 306 U/L (7-40); Aspartate Aminotransferase 140 U/L (13-40); Blood Urea Nitrogen 64 mg/dL (9-23); Chloride 93 mmol/L (98-107); Glucose 150 mg/dL (74-106); Potassium 5.5 mmol/L (3.5-5.1); Sodium 129 mmol/L (136-145)
[2024-07-13 07:18] LABS: Band Neutrophils % (manual) 0; Basophils % (manual) 0 (0.0-2.0); Blast Cells 0; Eosinophils % (manual) 0 (0-7); Metamyelocytes % 0; Myelocytes % 0; Promyelocytes % 0; Reactive Lymphocytes 0
--- NOTE | 2024-07-13 08:09 | DVHPN2 ---
Progress Note - Dictate Date Seen: Jul 13, 2024 Medical Necessity Reason Pt with a Central, PICC or Fol: Yes The following are medically ne: Central Line, Shaw Catheter vital signs Vital Sign Date Time Temp Pulse Resp B/P (MAP) Pulse Ox O2 Delivery O2 Flow Rate FiO2 07/13/24 07:05 73 18 117/86 99 3.0 07/13/24 06:23 Nasal Cannula 07/13/24 06:23 32 07/13/24 05:00 97.5 97.5 Total Intake and Output 07/12/24 07/12/24 07/13/24 15:00 23:00 07:00 Intake Total 320 ml 1190 ml 420 ml Output Total 25 ml 100 ml Balance 320 ml 1165 ml 320 ml medications Current Medications Medications Dose Ordered Sig/Colleen Route Start Time Stop Time Status Last Admin Dose Admin Bacitracin/ Polymyxin B Sulfate 1 applic TID OP 06/27/24 22:00 07/13/24 05:04 1 APPLIC Dextrose 50 ml UD PRN IV 06/28/24 08:00 06/29/24 11:58 50 ML Heparin Sodium/ Dextrose 250 ml @ 13.896 mls/ hr Q18H IV 06/28/24 08:00 UNV Epoetin Eligio-epbx 10,000 unit MWF@2100 SC 06/29/24 21:00 07/10/24 21:21 10,000 UNIT Artificial Tears 2 drop Q6HP PRN EACHEYE 06/29/24 11:30 Amiodarone HCl 200 mg BID PO 06/30/24 22:00 07/12/24 21:35 200 MG Mexiletine HCl 150 mg Q8HR PO 06/30/24 22:00 07/12/24 21:34 150 MG Acetaminophen 650 mg Q4HP PRN PO 07/03/24 18:00 Morphine Sulfate 1 mg Q4HP PRN IV 07/05/24 15:45 07/12/24 13:35 1 MG Pantoprazole Sodium 40 mg DAILY@0600 PO 07/07/24 06:00 07/12/24 05:16 40 MG Ondansetron HCl 4 mg Q6HPRN PRN IV 07/06/24 12:45 07/12/24 10:55 4 MG Hydralazine HCl 10 mg Q6HP PRN IV 07/06/24 13:00 07/06/24 17:09 10 MG Albumin Human 100 ml @ 100 mls/hr SHADY PRN IV 07/06/24 19:30 Methylprednisolone Sodium Succinate 20 mg BID IV 07/08/24 22:00 07/12/24 21:34 20 MG Apixaban 10 mg BID PO 07/11/24 22:00 07/16/24 21:59 07/12/24 21:35 10 MG laboratory and microbiology Laboratory Tests 07/13/24 04:57 Test 07/13/24 04:57 Range/Units Serum Glucose 150 H 74-106 mg/dL Assessment/Plan Patient is a 64-year-old gentleman who presented on June 27, 2024 for around a week of flu symptoms and upper left swellings. At the time of evaluation, the patient is being managed in unit. He is intubated and not source of history. Information was obtained by reviewing the chart. Reportedly, the patient had missed hemodialysis quite a few times before presentation as he felt sick. It is reported that he did have flu-like symptoms, eye congestion and diarrhea prior to presentation. While being managed on the floor, patient was found to be nonresponsive and was coded. There is no detailed information about the time of the code. There is question about PEA. The patient was intubated and was brought to the unit. Patient was seen by on-call instructor of sociology at that point. At this point, we are called for Cardiology as the patient is known to us from before. There is no report of actual chest pain. It is of note that serial troponin has been negative. There is no available telemetry at the time of the episode. Is also of note that the patient does have BiV-ICD from before. Presently, the patient is admitted with septic shock. Patient was in the hospital around a month ago. And was managed for acute on chronic systolic heart failure, pancytopenia and pleural effusions (for which had pleurocentesis). He should have been on Eliquis as outpatient. Extubated. There are signs of conjunctivitis on bilateral eyes. No JVD. Mucosa is pink and wet. No carotid bruit. Lungs: Scattered rhonchi in the lungs is heard. Cardiac: Regular, systolic murmur 3/6 in the apex is heard. The site for ICD implantation looks clean with no erythema/ecchymosis/tenderness. Abdomen is soft. Bowel sound is positive. Extremities reveal 2+ edema bilaterally. AV fistula in the right upper extremity with thrill was observed. 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 Echocardiogram of April 08, 2024 had reported four-chamber dilatation, ejection fraction of 20%, [id number] MR/TR and right ventricular systolic pressure of 75 mm Hg Echocardiogram of May 19, 2024 had reported four-chamber dilatation, ejection fraction of 35%, D shaped septum, pulmonary hypertension, mobile interatrial septum, [id number] aortic insufficiency, mild mitral regurgitation, moderate TR and right ventricular systolic pressure of 80 mm Hg Hemoglobin: 7.2 - 7.2 - 8.0 - 5.5 - 8.8 - 8.7 - 7.4 - 7.5 - 7.8 - 7.7 - 7.4 - 7.5 - 7.7 - 9.6 - 9.7 - 8.7 - 9.4 - 9.3 - 10.0 - 10.8 Platelet: 102 - 111 - 106 - 99 - 89 - 69 - 70 - 52 - 53 - 68 - 87 - 131 - 115 - 146 - 152 - 167 - 169 Creatinine: 8.29 - 8.51 - 8.5 - 8.17 - 8.63 - 6.77 - 4.80 - 3.86 - 4.84 - 3.81 - 5.10 - 5.98 - 5.08 - 6.07 - 4.57 - 5.62 - 6.04 - 6.12 Potassium: 5.2 - 5.7 - 5.1 - 5.2 - 5.9 - 4.5 - 4.3 - 4.2 - 3.3 - 3.8 - 3.7 - 4.2 - 4.7 - 4.9 - 5.0 - 4.6 - 4.6 - 5.4 - 5.5 Lactic acid: 4.7 - 2.7 Troponin (high sensitive) 40 - 41 - 40 BNP: 2509.04 D-Dimer: 4.72 Digoxin: <0.14 Chest x-ray reported: FINDINGS: LUNGS AND PLEURAL SPACES: See below. HEART: Cardiomegaly with moderate congestion. Left cardiac. MEDIASTINUM: Unremarkable. Normal mediastinal contour. BONES/JOINTS: Unremarkable. No acute fracture. OTHER FINDINGS: . . . .. IMPRESSION: Cardiomegaly with moderate congestion. Repeat chest x-ray reported: Medical devices: The ETT ends above the level of elizabeth at the level of clavicular heads. The enteric tube extends to the stomach. Multi lead left upper chest wall AICD with leads extending to the cardiac chambers. Cardiomediastinal: The heart is moderately enlarged. Pulmonary vasculature is prominent. Atherosclerotic calcification of the aortic arch noted. Lungs: There is interval enlargement of now moderate-sized right pleural effusion and interval development of patchy consolidation in the right middle and left upper lung zone. Small opacities are noted in the left lung base. Diffuse bilateral interstitial opacities are noted. No pneumothorax. Bones/soft tissues: No acute abnormality is noted. Right subclavian vascular stents noted. IMPRESSION: 1. Worsening CHF with moderate right pleural effusion , interval development of extensive bilateral interstitial opacities and large patchy multifocal bilateral consolidations that may represent edema or pneumonia. Recommend clinical and biochemical correlation. Repeat chest xry reported: IMPRESSION: 1. Right basilar atelectasis or pneumonia. 2. Cardiomegaly with mild congestion. Repeat chest xry reported: IMPRESSION: 1. Right basilar atelectasis or pneumonia. Small bilateral pleural effusions. 2. Cardiomegaly with mild congestion. 3. Endotracheal tube now projects 6 cm above level the elizabeth in appropriate position. Repeat chest xry reported: IMPRESSION: 1. Cardiomegaly with pulmonary congestion and edema. Superimposed pneumonia cannot be excluded. 2. Right pleural effusion. Repeat chest xry reported: FINDINGS: VERTEBRAE: Unremarkable. No acute fracture. Normal alignment. No instability. DISC SPACES: No acute findings. No significant narrowing. SOFT TISSUES: Unremarkable. HEART: Left cardiac. Mild congestive heart failure. TUBES, LINES AND DEVICES: Enteric tube tip in the stomach. The endotracheal tube (ETT) is in satisfactory position. OTHER FINDINGS: . ... IMPRESSION: Mild congestive heart failure. Repeat chest xry revealed: IMPRESSION: Cardiomegaly with moderate congestion. Repeat chest xry revealed: IMPRESSION: 1. Mechanical ventilation with tubes and lines as above. 2. Right basilar infiltrate and effusion, improved. 3. Cardiomegaly. Repeat chest xry revealed: IMPRESSION: 1. Biventricular pacemaker in place 2. Bibasilar infiltrates right pleural effusion. Right pleural effusion appears to have slightly increased. This may be secondary to patient positioning. 3. Right subclavian stent in place unchanged from 07/04/2024.. Repeat chest xry revealed: Lines and Tubes: Left chest wall AICD. Left central venous catheter in satisfactory position. Lungs: Patchy bilateral airspace opacities. Pleura: Small bilateral pleural effusions, [id number]. No pneumothorax. Cardiomediastinal contours: Unremarkable Bones: Unremarkable IMPRESSION: Unchanged fluid overload. Repeat chest xry revealed: Lines and Tubes: Left chest wall AICD. Left central venous catheter in satisfactory position. Lungs: Mild congestion Pleura: Small right pleural effusion. No pneumothorax. Cardiomediastinal contours: Cardiomegaly Bones: Unremarkable IMPRESSION: Small right pleural effusion. Repeat chest xry revealed: IMPRESSION: Cardiomegaly with small bilateral pleural effusions and bibasilar opacities. Repeat chest xry revealed: IMPRESSION: Small right pneumothorax. Cardiomegaly with left lower lung consolidative opacity. Interval decrease in right pleural effusion compared to prior exam. Critical Result: Pneumothorax Repeat chest xry revealed: IMPRESSION: Interval resolution of previously seen right pneumothorax. Pulmonary edema. Small left pleural effusion. Chest ultrasound revealed: Findings/Impression: Moderate to large right pleural effusion. No left pleural effusion. Thoracentesis (07/09/2024): IMPRESSION: Ultrasound guided RIGHT thoracentesis. Venous duplex of left upper ext (07/09/2024): Impression: Thrombus in the left subclavian vein If clinical concern/symptoms persist or worsen, short-interval follow-up study is suggested. Upper ext (right) arterial duplex reported: IMPRESSION: 1. The right upper extremity brachial-cephalic AVF is thrombosed. 2. The right axillary stent is thrombosed. 3. The arteries of the right upper extremity including subclavian, axillary, brachial, radial and ulnar arteries are patent. Repeat Upper ext (right) arterial duplex reported: IMPRESSION: Thrombus is seen at the mid and distal aspect of right upper extremity fistula. Thrombus is seen in the cephalic vein. Vascular surgery consultation recommended. CTA of lungs revealed: IMPRESSION: 1. No pulmonary embolism. 2. Large right and small left pleural effusion with associated bilateral atelectasis and consolidation. Patchy ground-glass opacities could represent pulmonary edema or an infectious / inflammatory process. Mediastinal lymphadenopathy similar to prior. Clinical correlation and continued follow-up is recommended. Overall appearance is worse compared to prior exam. CT of head reported: 1. No acute intracranial pathology. Cortical atrophy greater on the left. EKG revealed paced rhythm Telemetry revealed paced rhythm (it is of note that telemetry rhythm at the time of the code is not available to revealed) Echocardiogram reported: limited study. lvef 20% by visual estimate. postop septum. septum flattening noted. RV enlarged with dysfunction. biatrial enlargement. valves not assessed Medtronic ICD interrogation revealed: Remaining longevity of battery: 3.8 years; DDDR: 60/130; Pacing impedance: A 380 /RV 323/LV 304 Ohms; Shock impedance: RV 29 Ohms; Capture threshold: Atrial 0.5/RV 0.875 volts at 0.4 milliseconds; Program sensitivity: Atrial 0.3/RV 0.3 mV; Episodes: VT/VF: 1 resulting in shock; Changes performed: VTE detection interval was changed from 270 millisecond to 320 millisecond/VT detection interval was changed from 330 millisecond to 400 milliseconds Cardiac cath performed: Diagnosis: Nonobstructive coronary artery disease; Patent stents in mid LAD/proximal RCA/distal RCA; Negative FFR of 50% lesion in mid LAD; LVEDP of 10 mm Hg; Cardiac suggestions for management: Optimized medical therapy; Guideline directed medical therapy for systolic heart failure; Lifestyle and risk factor modification Patient is a 64-year-old gentleman who presented with flu-like symptoms, but later coded in the floor. No tele rhythm of the time of the code was available to review (at first). Reportedly there was PA. Stable serial high sensitive troponin is against acute coronary syndrome. Patient does have baseline history of heart failure and pulmonary hypertension. He also has Bi V ICD (interrogation revealed episode of v-fib/v-tach resulting in Defibrillation). Does have baseline history of noncompliance to medication/hemodialysis. Does have baseline history of pancytopenia and is found to have significant anemia. With respiratory failure and on vent support. Case discussed with Electrophysiology (Dr Tamayo). Acute arrest Rule out PA Questionable encephalopathy, anoxic versus toxic? Recent URI Septic shock s/p Defibrillation secondary to V-fib/Vtach Encephalopathy Baseline pulmonary hypertension Baseline systolic heart failure Status post Bi V ICD End-stage renal disease, Noncompliant with medication, followups and hemodialysis Pancytopenia History of GI bleeding Right pleural effusion s/p Right AV fistula thrombectomy central angioplasty and peripheral venous angioplasty by Vascular surgeon s/p thoracentesis resulting in pneumothorax DVT of left subclavian vein Cardiac suggestion for management: Manage in telemetry Follow-up electrolytes and kidney function tests and correct abnormalities On Amiodarone and Mexiletine Optimized medical therapy; Guideline directed medical therapy for systolic heart failure Consider removal of central line from left neck Anticoagulation as per primary team Pulmonary follow up is advised. Management of right upper ext DVT as per primary team and vascular Further evaluation and management depends on the above and clinical course A total of 55 minutes was spent reviewing the patient record, examining the patient, making a diagnostic and therapeutic plan, discussing this plan with medical personnel, following up on diagnostic studies and following the patient for clinical stability excluding any and all procedures. At least 50% of this time was spent in direct, [id number] contact. Thank you for allowing me to participate in this patient's care. Further recommendations will depend on patient's clinical course. Please do not hesitate to contact me if you have any questions or concerns. This medical document was created using electronic medical record system with [employer] computerized dictation system. Although this document has been carefully reviewed, there may still be some phonetic and typographical errors. These areas are purely typographical due to the imperfection of the software programs, and do not reflect any compromise in the patient's medical care. Dietary Evaluation Review Comments: 1) Add renal restriction to mechanical soft diet order 2) Initiate Nepro bid 3) Continue to promote PO intake 4) Continue to monitor appetite, labs, and skin integrity Expected Outcomes/Goals: 1) appetite and labs to improve 2) wound to improve 3) f/u in 5 days Plan discussed with: Patient, Other (nurse) SUSHMA WALKER MD Jul 13, 2024 08:08
[2024-07-13] MEDS: SODIUM ZIRCONIUM CYCL 10 GM PAK PO ONE (08:30)
[2024-07-13 09:36] LABS: Lymphocytes % (manual) 2 (10.0-50.0); Monocytes % (manual) 3 (0-12); Platelet Estimate Adequate
[2024-07-13] MEDS: IODIXANOL 320MG/ML 100ML BTL IV ONE (11:51)
[2024-07-13] MEDS: LIDOCAINE 2%HCL (LOCAL ANESTH.) INJ 20ML MDV ONE (12:14)
[2024-07-13] MEDS: MIDAZOLAM HCL 2MG/2ML 2ml VIAL (1mg/ml) ONE (12:31)
[2024-07-13] MEDS: fentaNYL CITRATE 100 MCG/2 ML VL ONE (12:31)
[2024-07-13] MEDS: CATHFLO ACTIVASE (ALTEPLASE) 2 MG VIAL ONE (12:43)
[2024-07-13] MEDS: HEPARIN SODIUM (PORCINE) 5000 UNITS/ML 1ML VIAL ONE (13:04)
--- NOTE | 2024-07-13 14:59 | DVH ---
XY Decltt of Dialysis Circt, HISTORY: FISTULAGRAM PROCEDURE: Informed consent was obtained. The patient was positioned supine on the fluoroscopic table and IV sedation administered. Ultrasound of the AVF was performed and the optimal access site chosen ; the overlying skin was then prepped with chlorhexidine which was allowed to dry and draped in steri le fashion. Time out was performed. The outflow cephalic vein was accessed in antgrade fashion with a micropuncture set with ultrasound guidance. Contrast injection through the access site shows occlusi on of the AVF. A 7 Tongan vascular sheath was placed, and the occluded thrombus was crossed with a wi re/Jose David catheter. The wire was placed into the IVC. Then, 2 mg of tPa was given through the sheath to the thrombus. A 5 mm balloon was used to angioplasty the thrombus and the stenosis. 3000 units of he isabella were given IV. The fistula stenosis was then angioplastied with a 8 mm balloon. There was a raúl nosis at the brachiocephalic vein stent, which was angioplasty with an 8 mm balloon. Completion angio gram of the outflow fistal vein was performed. Central venogram was performed The sheath was removed and hemostasis achieved with manual compression using a purse string suture. No immediate complicatio n was identified. DAP 221.8 FLUOROSCOPY TIME: 15.6 minutes. CONTRAST USED: 30 mL . SEDATION: Dr. Mago Bennett was personally responsible for the administration of moderate sedation during the procedure performed, including the use of an independent trained observer who had no other duties during the procedure. The drugs utilized were IV fentanyl and versed (see nursing log for details). The total time of supervision by the attending physician was approximately 90 minutes. FINDINGS: Completely occlused left arm arteriovenous fistula with thrombus in the aneurysmal segment and outflow vein. Stenosis of the outflow vein and at the brachiocephalic vein stent. Anastomosis was patent. Pharmacomechanical thrombectomy of the left brachiocephalic arteriovenous fistula with ballo on angioplasty of the outflow vein including the brachiocephalic vein stent up to 8 mm. IMPRESSION: Pharmacomechanical thrombectomy of the left brachiocephalic arteriovenous fistula with balloon angiop lasty of the outflow vein including the brachiocephalic vein stent up to 8 mm. Resultant Improved ou tflow of the AV fistula. Completely occlused left arm arteriovenous fistula with thrombus in the aneurysmal segment and outflo w vein. Stenosis of the outflow vein and at the brachiocephalic vein stent. Please resume hemodialysis. A ptaricia on the arm was placed for access site (please avoid accessing the aneurysmal segment). PLAN: Please resume hemodialysis. A patricia on the arm was placed for access site (please avoid accessin g the aneurysmal segment).
--- NOTE | 2024-07-13 16:10 | DVHPN2 ---
Progress Note Date Seen: Jul 13, 2024 Medical Necessity Reason Pt with a Central, PICC or Fol: Yes The following are medically ne: Central Line, Shaw Catheter Subjective Patient reports: Other Review of Systems: Deferred Objective vital signs Vital Sign Date Time Temp Pulse Resp B/P (MAP) Pulse Ox O2 Delivery O2 Flow Rate FiO2 07/13/24 15:05 66 20 133/83 (100) 100 07/13/24 09:00 98.0 98.0 07/13/24 08:00 Nasal Cannula* 1 24 Total Intake and Output 07/12/24 07/12/24 07/13/24 15:00 23:00 07:00 Intake Total 320 ml 1190 ml 420 ml Output Total 25 ml 100 ml Balance 320 ml 1165 ml 320 ml medications Current Medications Medications Dose Ordered Sig/Colleen Route Start Time Stop Time Status Last Admin Dose Admin Bacitracin/ Polymyxin B Sulfate 1 applic TID OP 06/27/24 22:00 07/13/24 14:00 1 APPLIC Dextrose 50 ml UD PRN IV 06/28/24 08:00 06/29/24 11:58 50 ML Heparin Sodium/ Dextrose 250 ml @ 13.896 mls/ hr Q18H IV 06/28/24 08:00 UNV Epoetin Eligio-epbx 10,000 unit MWF@2100 SC 06/29/24 21:00 07/10/24 21:21 10,000 UNIT Artificial Tears 2 drop Q6HP PRN EACHEYE 06/29/24 11:30 Amiodarone HCl 200 mg BID PO 06/30/24 22:00 07/12/24 21:35 200 MG Mexiletine HCl 150 mg Q8HR PO 06/30/24 22:00 07/13/24 14:00 150 MG Acetaminophen 650 mg Q4HP PRN PO 07/03/24 18:00 Morphine Sulfate 1 mg Q4HP PRN IV 07/05/24 15:45 07/12/24 13:35 1 MG Pantoprazole Sodium 40 mg DAILY@0600 PO 07/07/24 06:00 07/12/24 05:16 40 MG Ondansetron HCl 4 mg Q6HPRN PRN IV 07/06/24 12:45 07/13/24 10:13 4 MG Hydralazine HCl 10 mg Q6HP PRN IV 07/06/24 13:00 07/06/24 17:09 10 MG Albumin Human 100 ml @ 100 mls/hr SHADY PRN IV 07/06/24 19:30 Methylprednisolone Sodium Succinate 20 mg BID IV 07/08/24 22:00 07/12/24 21:34 20 MG Apixaban 10 mg BID PO 07/11/24 22:00 07/16/24 21:59 07/12/24 21:35 10 MG laboratory and microbiology Laboratory Tests 07/13/24 15:05 07/13/24 04:57 Test 07/13/24 04:57 Range/Units Serum Glucose 150 H 74-106 mg/dL Microbiology Date/Time Source Procedure Growth Status 07/09/24 14:18 Pleural Fluid Gram Stain - Final Resulted 07/09/24 14:18 Pleural Fluid Body Fluid Culture - Preliminary Resulted 06/28/24 11:44 Nose MRSA Screen - Final Complete 06/28/24 08:05 Sputum Gram Stain - Final Complete 06/28/24 08:05 Sputum Respiratory Culture - Final Complete 06/28/24 07:55 Blood Blood Culture - Final Staphylococcus epidermidis Complete Problem List/Assessment/Plan Problem List/Assessment/Plan ESRD s/p cardiac arrest Pleural effusions s/p thoracentesis 1.5L removed CHF exacerbation Hx of Afib Hx of ID HTN anemia due to CKD hyponatremia thrombosed Right AVF s/p surgical revision recs Hemodialysis tomorrow We will follow closely Plan discussed with: Patient Dietary Evaluation Review Comments: 1) Add renal restriction to mechanical soft diet order 2) Initiate Nepro bid 3) Continue to promote PO intake 4) Continue to monitor appetite, labs, and skin integrity Expected Outcomes/Goals: 1) appetite and labs to improve 2) wound to improve 3) f/u in 5 days ADITYA DUNCAN MD Jul 13, 2024 16:10
--- NOTE | 2024-07-13 18:05 | DVHPNRES ---
Progress Note Date Seen: Jul 13, 2024 Resident Creating Document: YVONNE DOMINGUEZ RESIDENT Medical Necessity Reason Pt with a Central, PICC or Fol: Yes The following are medically ne: Central Line, Shaw Catheter Subjective Review of Systems 64-year-old male patient with a history of nonischemic cardiomyopathy, chronic systolic heart failure, hypertension, hyperlipidemia, type 2 diabetes mellitus, prior myocardial infarction, pulmonary hypertension, end-stage renal disease on hemodialysis, who presented on June 27 with 1 week history of flu-like symptoms, upper respiratory illness and progressive weakness. The patient has been several hemodialysis sessions before admission and was reportedly found lying on the floor, cyanotic and unresponsive, on arrival the patient was intubated for respiratory failure and transported to the hospital. On ICU admission the patient was noted to be hemodynamically unstable requiring vasopressor support with norepinephrine and was deeply comatose. On admission the patient was to have bilateral pulmonary congestion concerning for volume overload versus aspiration pneumonia. Given the high suspicion of sepsis with multisystemic organ dysfunction shock ALLI metabolic acidosis respiratory failure altered mental status the patient was started on broad-spectrum antibiotics with Zosyn vancomycin vasopressor support and mechanical ventilation. Currently the patient remains critically ill, responsive and dependent on full life support with a higher likelihood of poor neurological recovery. CT angio showed no pulmonary embolism but a large right and small left pleural effusion with associated bilateral atelectasis and consolidation. Patchy ground-glass opacities could represent pulmonary edema or an infectious / inflammatory process. Mediastinal lymphadenopathy similar to prior. Overall appearance is worse compared to prior exam. On chest x RAY: Right basilar atelectasis or pneumonia. CT head : No acute intracranial pathology. Cortical atrophy greater on the left. Patient examined at [facility], currently on NC 1L , he reports feeling better. AV fistula was repaired today, hemodialysis scheduled for tomorrow. If AV fistula works fine Rajesh catheter will be removed after hemodialysis Patient alert and oriented x4 , he decided for full code. code status updated. Potassium 5.6 patient was started on sodium zirconium 10 mg t.i.d. scheduled. Objective vital signs Vital Sign Date Time Temp Pulse Resp B/P (MAP) Pulse Ox O2 Delivery O2 Flow Rate FiO2 07/13/24 16:50 97.2 85 14 132/75 (94) 96 97.2 07/13/24 08:00 Nasal Cannula* 1 24 Total Intake and Output 3/07/0707/12/24 07/13/24 15:00 23:00 07:00 Intake Total 320 ml 1190 ml 420 ml Output Total 25 ml 100 ml Balance 320 ml 1165 ml 320 ml medications Current Medications Medications Dose Ordered Sig/Colleen Route Start Time Stop Time Status Last Admin Dose Admin Bacitracin/ Polymyxin B Sulfate 1 applic TID OP 06/27/24 22:00 07/13/24 14:00 1 APPLIC Dextrose 50 ml UD PRN IV 06/28/24 08:00 06/29/24 11:58 50 ML Heparin Sodium/ Dextrose 250 ml @ 13.896 mls/ hr Q18H IV 06/28/24 08:00 UNV Epoetin Eligio-epbx 10,000 unit MWF@2100 SC 06/29/24 21:00 07/10/24 21:21 10,000 UNIT Artificial Tears 2 drop Q6HP PRN EACHEYE 06/29/24 11:30 Amiodarone HCl 200 mg BID PO 06/30/24 22:00 07/12/24 21:35 200 MG Mexiletine HCl 150 mg Q8HR PO 06/30/24 22:00 07/13/24 14:00 150 MG Acetaminophen 650 mg Q4HP PRN PO 07/03/24 18:00 Morphine Sulfate 1 mg Q4HP PRN IV 07/05/24 15:45 07/12/24 13:35 1 MG Pantoprazole Sodium 40 mg DAILY@0600 PO 07/07/24 06:00 07/12/24 05:16 40 MG Ondansetron HCl 4 mg Q6HPRN PRN IV 07/06/24 12:45 07/13/24 10:13 4 MG Hydralazine HCl 10 mg Q6HP PRN IV 07/06/24 13:00 07/06/24 17:09 10 MG Albumin Human 100 ml @ 100 mls/hr SHADY PRN IV 07/06/24 19:30 Apixaban 10 mg BID PO 07/11/24 22:00 07/16/24 21:59 07/12/24 21:35 10 MG Prednisone 30 mg DAILY PO 07/14/24 10:00 Examination Examination General Appearance: Alert, Oriented X3, Cooperative, No acute distress Respiratory: Clear to auscultation, Normal air movement Cardiovascular: Paced rhythm, regular , Normal S1, Normal S2 Abdominal: Normal bowel sounds Extremities: No cyanosis, No edema, Normal pulses, No tenderness/swelling Skin: No rashes, excoriations in the lower extremities No breakdown tomorrow bends catheter, LIJ rajesh catheter Neuro: Normal speech, Strength at 5/5 X4 ext, Normal tone, Sensation intact, Cranial nerves 3-12 NL, Reflexes 2+ Psych/Mental Status: Mental status NL, Mood NL laboratory and microbiology Laboratory Tests 07/13/24 15:05 07/13/24 04:57 Test 07/13/24 04:57 Range/Units Serum Glucose 150 H 74-106 mg/dL Microbiology Date/Time Source Procedure Growth Status 07/09/24 14:18 Pleural Fluid Gram Stain - Final Resulted 07/09/24 14:18 Pleural Fluid Body Fluid Culture - Preliminary Resulted 06/28/24 11:44 Nose MRSA Screen - Final Complete 06/28/24 08:05 Sputum Gram Stain - Final Complete 06/28/24 08:05 Sputum Respiratory Culture - Final Complete 06/28/24 07:55 Blood Blood Culture - Final Staphylococcus epidermidis Complete Problem List/Assessment/Plan Problem List/Assessment/Plan Neurology: #Acute encephalopathy due s/p cardiac arrest due to VTach/VFib #Patient extubated on 07/05 -Admitted to telemetry -Currently on NC 1L - physical therapy Cardiovascular #Acute on chronic systolic heart failure NYHA III-IV #Cardiac arrest due to VT/VF #History of nonischemic cardiomyopathy #History of myocardial infarction #Severe pulmonary hypertension RVSP 75 mmHg #Atrial fibrillation #HFrEF 20% SP AICD/LOOM SETTER D/pace #CAD status post 3 stents -CT angiography unremarkable -amiodarone po -mexiletine po Respiratory: #Acute hypoxemic respiratory failure due to HFrEF 20% exacerbation #Acute hypoxic hypercapnic respiratory failur # Respiratory acidosis #Bilateral infiltrates on chest x-ray possible aspiration pneumonia / pulmonary edema #Right pleural effusion S/P thoracentesis #Pulmonary embolism ruled out - NC 1 L Gastrointestinal #left hepatic cyst Renal: #ESRD on hemodialysis #Acute kidney injury on ESRD #Hyperkalemia #Hypoalbuminemia #hyponatremia -Rajesh catheter for hemodialysis - Right AV fistula repaired today - HD tomorrow - Nephrology on board - [facility] - possible rajesh cath tomorrow after HD. Infectious disease: #Shock likely septic due to suspected UTI/aspiration pneumonia #Leukocytosis #Bilateral infiltrates likely due to possible aspiration pneumonia -resolved -daily CBC and CMP Endocrine #History of Type 2 diabetes # hyperglycemia Hematology: # Normocytic normochromic anemia status post 2 packed red blood cell transfusion in the setting of ESRD #av fistula repair #lef subclavian thrombosis - Monitor CBC daily -H&H Case discussed with Code status: full code; advance care planning time 21 mins Plan discussed with: Other (sister) My Orders My Orders Orders - YVONNE DOMINGUEZ RESIDENT Procedure Category Date Status Time Electrocardigram EKG 07/13/24 Logged 14:35 Dietary Evaluation Review Comments: 1) Add renal restriction to mechanical soft diet order 2) Initiate Nepro bid 3) Continue to promote PO intake 4) Continue to monitor appetite, labs, and skin integrity Expected Outcomes/Goals: 1) appetite and labs to improve 2) wound to improve 3) f/u in 5 days Date of Service: Jul 13, 2024 Billing Provider: BELTRAN KLEIN MD Common Visit Codes: [id number] INP/OBS CARE(HIGH) Secondary Visit Codes: [id number] CARE PLAN 30 MINUTES YVONNE DOMINGUEZ RESIDENT Jul 13, 2024 18:05 BELTRAN KLEIN MD Jul 14, 2024 14:55
[2024-07-13] MEDS: SODIUM ZIRCONIUM CYCL 10 GM PAK PO SCH (18:34)
[2024-07-14] VITALS (9 sets, daily range): BP systolic 111–138; BP diastolic 60–76; PULSE 63–76; RESP 15–17; TEMP 97.1–98.3; O2SAT 91–100
[2024-07-14 05:43] LABS: Basophils # (auto) 0 10 ^3/uL (0-0.2); Basophils % (auto) 0.1 % (0.0-2.0); Eosinophils # (auto) 0 10 ^3/uL (0-0.8); Hematocrit 29.9 % (41.0-53.0); Lymphocytes # (auto) 0.1 10 ^3/uL (0.4-5.4); Lymphocytes % (auto) 1.6 % (10.0-50.0); Mean Corpuscular Hemoglobin 32.7 pg (28.0-32.0); Mean Corpuscular Hgb Conc. 33.4 g/dL (32.0-36.0); Mean Corpuscular Volume 97.9 fL (80.0-100.0); Monocytes # (auto) 0.5 10 ^3/uL (0-1.3); Neutrophils # (auto) 7.1 10 ^3/uL (1.6-8.6); Neutrophils % (auto) 92.3 % (37.0-80.0); Nucleated Red Blood Cells % 1.1 %; Platelet Count (auto) 133 10^3/uL (140-450); Red Blood Cells 3.05 10^6/uL (4.5-5.90); Red Cell Distribution Width 18.3 % (11.8-14.3); White Blood Cell 7.7 10^3/uL (4.4-10.8)
[2024-07-14 06:10] LABS: Albumin 3.4 g/dL (3.2-4.8); Alkaline Phosphatase 89 U/L (46-116); Anion Gap 15 (5-15); BUN/Creatinine Ratio 11.2 (10.0-20.0); Calcium 9.3 mg/dL (8.7-10.4); Carbon Dioxide 23 mmol/L (20-31); Total Protein 5.9 g/dL (5.7-8.2)
[2024-07-14 06:11] LABS: Bilirubin, Total 0.6 mg/dL (0.2-1.0)
[2024-07-14 06:41] LABS: Alanine Aminotransferase 225 U/L (7-40); Aspartate Aminotransferase 65 U/L (13-40); Blood Urea Nitrogen 76 mg/dL (9-23); Chloride 91 mmol/L (98-107); Glucose 124 mg/dL (74-106); Sodium 129 mmol/L (136-145)
--- NOTE | 2024-07-14 07:54 | DVHPN2 ---
Progress Note - Dictate Date Seen: Jul 14, 2024 Medical Necessity Reason Pt with a Central, PICC or Fol: Yes The following are medically ne: Central Line, Shaw Catheter vital signs Vital Sign Date Time Temp Pulse Resp B/P (MAP) Pulse Ox O2 Delivery O2 Flow Rate FiO2 07/14/24 05:00 97.9 71 17 124/74 (91) 99 97.9 07/13/24 20:00 Nasal Cannula* 1 24 Total Intake and Output 07/13/24 07/13/24 07/14/24 15:00 23:00 07:00 Intake Total 200 ml 200 ml Output Total 50 ml 50 ml Balance 150 ml 150 ml medications Current Medications Medications Dose Ordered Sig/Colleen Route Start Time Stop Time Status Last Admin Dose Admin Bacitracin/ Polymyxin B Sulfate 1 applic TID OP 06/27/24 22:00 07/14/24 06:08 1 APPLIC Dextrose 50 ml UD PRN IV 06/28/24 08:00 06/29/24 11:58 50 ML Heparin Sodium/ Dextrose 250 ml @ 13.896 mls/ hr Q18H IV 06/28/24 08:00 UNV Epoetin Eligio-epbx 10,000 unit MWF@2100 SC 06/29/24 21:00 07/10/24 21:21 10,000 UNIT Artificial Tears 2 drop Q6HP PRN EACHEYE 06/29/24 11:30 Amiodarone HCl 200 mg BID PO 06/30/24 22:00 07/13/24 21:33 200 MG Mexiletine HCl 150 mg Q8HR PO 06/30/24 22:00 07/14/24 06:05 150 MG Acetaminophen 650 mg Q4HP PRN PO 07/03/24 18:00 Morphine Sulfate 1 mg Q4HP PRN IV 07/05/24 15:45 07/12/24 13:35 1 MG Pantoprazole Sodium 40 mg DAILY@0600 PO 07/07/24 06:00 07/14/24 06:05 40 MG Ondansetron HCl 4 mg Q6HPRN PRN IV 07/06/24 12:45 07/13/24 10:13 4 MG Hydralazine HCl 10 mg Q6HP PRN IV 07/06/24 13:00 07/06/24 17:09 10 MG Albumin Human 100 ml @ 100 mls/hr SHADY PRN IV 07/06/24 19:30 Apixaban 10 mg BID PO 07/11/24 22:00 07/16/24 21:59 07/13/24 21:28 10 MG Prednisone 30 mg DAILY PO 07/14/24 10:00 Zirconium Oxide 10 gm TID PO 07/13/24 18:15 07/15/24 06:01 07/14/24 06:08 10 GM laboratory and microbiology Laboratory Tests 07/14/24 04:00 Test 07/14/24 04:00 Range/Units Serum Glucose 124 H 74-106 mg/dL Assessment/Plan Patient is a 64-year-old gentleman who presented on June 27, 2024 for around a week of flu symptoms and upper left swellings. At the time of evaluation, the patient is being managed in unit. He is intubated and not source of history. Information was obtained by reviewing the chart. Reportedly, the patient had missed hemodialysis quite a few times before presentation as he felt sick. It is reported that he did have flu-like symptoms, eye congestion and diarrhea prior to presentation. While being managed on the floor, patient was found to be nonresponsive and was coded. There is no detailed information about the time of the code. There is question about PEA. The patient was intubated and was brought to the unit. Patient was seen by on-call cut out stitcher at that point. At this point, we are called for Cardiology as the patient is known to us from before. There is no report of actual chest pain. It is of note that serial troponin has been negative. There is no available telemetry at the time of the episode. Is also of note that the patient does have BiV-ICD from before. Presently, the patient is admitted with septic shock. Patient was in the hospital around a month ago. And was managed for acute on chronic systolic heart failure, pancytopenia and pleural effusions (for which had pleurocentesis). He should have been on Eliquis as outpatient. Extubated. There are signs of conjunctivitis on bilateral eyes. No JVD. Mucosa is pink and wet. No carotid bruit. Lungs: Scattered rhonchi in the lungs is heard. Cardiac: Regular, systolic murmur 3/6 in the apex is heard. The site for ICD implantation looks clean with no erythema/ecchymosis/tenderness. Abdomen is soft. Bowel sound is positive. Extremities reveal 2+ edema bilaterally. AV fistula in the right upper extremity with thrill was observed. 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 Echocardiogram of April 08, 2024 had reported four-chamber dilatation, ejection fraction of 20%, [id number] MR/TR and right ventricular systolic pressure of 75 mm Hg Echocardiogram of May 19, 2024 had reported four-chamber dilatation, ejection fraction of 35%, D shaped septum, pulmonary hypertension, mobile interatrial septum, [id number] aortic insufficiency, mild mitral regurgitation, moderate TR and right ventricular systolic pressure of 80 mm Hg Troponin (high sensitive) 40 - 41 - 40 BNP: 2509.04 D-Dimer: 4.72 Digoxin: <0.14 Chest x-ray reported: FINDINGS: LUNGS AND PLEURAL SPACES: See below. HEART: Cardiomegaly with moderate congestion. Left cardiac. MEDIASTINUM: Unremarkable. Normal mediastinal contour. BONES/JOINTS: Unremarkable. No acute fracture. OTHER FINDINGS: . . . .. IMPRESSION: Cardiomegaly with moderate congestion. Repeat chest x-ray reported: Medical devices: The ETT ends above the level of elizabeth at the level of clavicular heads. The enteric tube extends to the stomach. Multi lead left upper chest wall AICD with leads extending to the cardiac chambers. Cardiomediastinal: The heart is moderately enlarged. Pulmonary vasculature is prominent. Atherosclerotic calcification of the aortic arch noted. Lungs: There is interval enlargement of now moderate-sized right pleural effusion and interval development of patchy consolidation in the right middle and left upper lung zone. Small opacities are noted in the left lung base. Diffuse bilateral interstitial opacities are noted. No pneumothorax. Bones/soft tissues: No acute abnormality is noted. Right subclavian vascular stents noted. IMPRESSION: 1. Worsening CHF with moderate right pleural effusion , interval development of extensive bilateral interstitial opacities and large patchy multifocal bilateral consolidations that may represent edema or pneumonia. Recommend clinical and biochemical correlation. Repeat chest xry reported: IMPRESSION: 1. Right basilar atelectasis or pneumonia. 2. Cardiomegaly with mild congestion. Repeat chest xry reported: IMPRESSION: 1. Right basilar atelectasis or pneumonia. Small bilateral pleural effusions. 2. Cardiomegaly with mild congestion. 3. Endotracheal tube now projects 6 cm above level the elizabeth in appropriate position. Repeat chest xry reported: IMPRESSION: 1. Cardiomegaly with pulmonary congestion and edema. Superimposed pneumonia cannot be excluded. 2. Right pleural effusion. Repeat chest xry reported: FINDINGS: VERTEBRAE: Unremarkable. No acute fracture. Normal alignment. No instability. DISC SPACES: No acute findings. No significant narrowing. SOFT TISSUES: Unremarkable. HEART: Left cardiac. Mild congestive heart failure. TUBES, LINES AND DEVICES: Enteric tube tip in the stomach. The endotracheal tube (ETT) is in satisfactory position. OTHER FINDINGS: . ... IMPRESSION: Mild congestive heart failure. Repeat chest xry revealed: IMPRESSION: Cardiomegaly with moderate congestion. Repeat chest xry revealed: IMPRESSION: 1. Mechanical ventilation with tubes and lines as above. 2. Right basilar infiltrate and effusion, improved. 3. Cardiomegaly. Repeat chest xry revealed: IMPRESSION: 1. Biventricular pacemaker in place 2. Bibasilar infiltrates right pleural effusion. Right pleural effusion appears to have slightly increased. This may be secondary to patient positioning. 3. Right subclavian stent in place unchanged from 07/04/2024.. Repeat chest xry revealed: Lines and Tubes: Left chest wall AICD. Left central venous catheter in satisfactory position. Lungs: Patchy bilateral airspace opacities. Pleura: Small bilateral pleural effusions, [id number]-[id number]-left. No pneumothorax. Cardiomediastinal contours: Unremarkable Bones: Unremarkable IMPRESSION: Unchanged fluid overload. Repeat chest xry revealed: Lines and Tubes: Left chest wall AICD. Left central venous catheter in satisfactory position. Lungs: Mild congestion Pleura: Small right pleural effusion. No pneumothorax. Cardiomediastinal contours: Cardiomegaly Bones: Unremarkable IMPRESSION: Small right pleural effusion. Repeat chest xry revealed: IMPRESSION: Cardiomegaly with small bilateral pleural effusions and bibasilar opacities. Repeat chest xry revealed: IMPRESSION: Small right pneumothorax. Cardiomegaly with left lower lung consolidative opacity. Interval decrease in right pleural effusion compared to prior exam. Critical Result: Pneumothorax Repeat chest xry revealed: IMPRESSION: Interval resolution of previously seen right pneumothorax. Pulmonary edema. Small left pleural effusion. Chest ultrasound revealed: Findings/Impression: Moderate to large right pleural effusion. No left pleural effusion. Thoracentesis (07/09/2024): IMPRESSION: Ultrasound guided RIGHT thoracentesis. Venous duplex of left upper ext (07/09/2024): Impression: Thrombus in the left subclavian vein If clinical concern/symptoms persist or worsen, short-interval follow-up study is suggested. Upper ext (right) arterial duplex reported: IMPRESSION: 1. The right upper extremity brachial-cephalic AVF is thrombosed. 2. The right axillary stent is thrombosed. 3. The arteries of the right upper extremity including subclavian, axillary, brachial, radial and ulnar arteries are patent. Repeat Upper ext (right) arterial duplex reported: IMPRESSION: Thrombus is seen at the mid and distal aspect of right upper extremity fistula. Thrombus is seen in the cephalic vein. Vascular surgery consultation recommended. CTA of lungs revealed: IMPRESSION: 1. No pulmonary embolism. 2. Large right and small left pleural effusion with associated bilateral atelectasis and consolidation. Patchy ground-glass opacities could represent pulmonary edema or an infectious / inflammatory process. Mediastinal lymphadenopathy similar to prior. Clinical correlation and continued follow-up is recommended. Overall appearance is worse compared to prior exam. CT of head reported: 1. No acute intracranial pathology. Cortical atrophy greater on the left. EKG revealed paced rhythm Telemetry revealed paced rhythm (it is of note that telemetry rhythm at the time of the code is not available to revealed) Echocardiogram reported: limited study. lvef 20% by visual estimate. postop septum. septum flattening noted. RV enlarged with dysfunction. biatrial enlargement. valves not assessed Medtronic ICD interrogation revealed: Remaining longevity of battery: 3.8 years; DDDR: 60/130; Pacing impedance: A 380 /RV 323/LV 304 Ohms; Shock impedance: RV 29 Ohms; Capture threshold: Atrial 0.5/RV 0.875 volts at 0.4 milliseconds; Program sensitivity: Atrial 0.3/RV 0.3 mV; Episodes: VT/VF: 1 resulting in shock; Changes performed: VTE detection interval was changed from 270 millisecond to 320 millisecond/VT detection interval was changed from 330 millisecond to 400 milliseconds Cardiac cath performed: Diagnosis: Nonobstructive coronary artery disease; Patent stents in mid LAD/proximal RCA/distal RCA; Negative FFR of 50% lesion in mid LAD; LVEDP of 10 mm Hg; Cardiac suggestions for management: Optimized medical therapy; Guideline directed medical therapy for systolic heart failure; Lifestyle and risk factor modification Patient is a 64-year-old gentleman who presented with flu-like symptoms, but later coded in the floor. No tele rhythm of the time of the code was available to review (at first). Reportedly there was PA. Stable serial high sensitive troponin is against acute coronary syndrome. Patient does have baseline history of heart failure and pulmonary hypertension. He also has Bi V ICD (interrogation revealed episode of v-fib/v-tach resulting in Defibrillation). Does have baseline history of noncompliance to medication/hemodialysis. Does have baseline history of pancytopenia and is found to have significant anemia. With respiratory failure and on vent support. Case discussed with Electrophysiology (Dr Tamayo). Acute arrest Rule out PA Questionable encephalopathy, anoxic versus toxic? Recent URI Septic shock s/p Defibrillation secondary to V-fib/Vtach Encephalopathy Baseline pulmonary hypertension Baseline systolic heart failure Status post Bi V ICD End-stage renal disease, Noncompliant with medication, followups and hemodialysis Pancytopenia History of GI bleeding Right pleural effusion s/p Right AV fistula thrombectomy central angioplasty and peripheral venous angioplasty by Vascular surgeon s/p thoracentesis resulting in pneumothorax DVT of left subclavian vein Cardiac suggestion for management: Manage in telemetry Follow-up electrolytes and kidney function tests and correct abnormalities On Amiodarone and Mexiletine Optimized medical therapy; Guideline directed medical therapy for systolic heart failure Consider removal of central line from left neck Anticoagulation as per primary team Pulmonary follow up is advised. Management of right upper ext DVT as per primary team and vascular Further evaluation and management depends on the above and clinical course A total of 55 minutes was spent reviewing the patient record, examining the patient, making a diagnostic and therapeutic plan, discussing this plan with medical personnel, following up on diagnostic studies and following the patient for clinical stability excluding any and all procedures. At least 50% of this time was spent in direct, [id number] contact. Thank you for allowing me to participate in this patient's care. Further recommendations will depend on patient's clinical course. Please do not hesitate to contact me if you have any questions or concerns. This medical document was created using electronic medical record system with [id number] computerized dictation system. Although this document has been carefully reviewed, there may still be some phonetic and typographical errors. These areas are purely typographical due to the imperfection of the software programs, and do not reflect any compromise in the patient's medical care. Dietary Evaluation Review Comments: 1) Add renal restriction to mechanical soft diet order 2) Initiate Nepro bid 3) Continue to promote PO intake 4) Continue to monitor appetite, labs, and skin integrity Expected Outcomes/Goals: 1) appetite and labs to improve 2) wound to improve 3) f/u in 5 days Plan discussed with: Patient, Other (nurse) SUSHMA WALKER MD Jul 14, 2024 07:54
[2024-07-14] MEDS: predniSONE 20 MG TAB PO SCH (09:18)
[2024-07-14] MEDS ORDERED: DOCUSATE SOD 100 MG CAP PO PRN (11:00)
--- NOTE | 2024-07-14 11:32 | ECG ---
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
[2024-07-14] MEDS ORDERED: CARVEDILOL 3.125 MG TAB PO ONE (15:45)
--- NOTE | 2024-07-14 19:01 | DVHPNRES ---
Progress Note Date Seen: Jul 14, 2024 Resident Creating Document: YVONNE DOMINGUEZ RESIDENT Medical Necessity Reason Pt with a Central, PICC or Fol: Yes The following are medically ne: Central Line Subjective Review of Systems Patient examined at [facility], currently on NC 3L , he reports feeling better. AV fistula did not have blood return, Hemodyalisis was done through the [facility] rajesh catheter. Patient alert and oriented x4 , he decided for full code. code status updated. addiction social worker consultation for SNF placement to continue with physical therapy and hemodyalisis. Patient reports: Feels better Objective vital signs Vital Sign Date Time Temp Pulse Resp B/P (MAP) Pulse Ox O2 Delivery O2 Flow Rate FiO2 07/14/24 16:43 97.1 69 16 138/69 (92) 91 97.1 07/14/24 08:00 Nasal Cannula* 1 24 Total Intake and Output 07/13/24 07/13/24 07/14/24 15:00 23:00 07:00 Intake Total 200 ml 200 ml Output Total 50 ml 50 ml Balance 150 ml 150 ml medications Current Medications Medications Dose Ordered Sig/Colleen Route Start Time Stop Time Status Last Admin Dose Admin Bacitracin/ Polymyxin B Sulfate 1 applic TID OP 06/27/24 22:00 07/14/24 14:00 1 APPLIC Dextrose 50 ml UD PRN IV 06/28/24 08:00 06/29/24 11:58 50 ML Heparin Sodium/ Dextrose 250 ml @ 13.896 mls/ hr Q18H IV 06/28/24 08:00 UNV Epoetin Eligio-epbx 10,000 unit MWF@2100 SC 06/29/24 21:00 07/10/24 21:21 10,000 UNIT Artificial Tears 2 drop Q6HP PRN EACHEYE 06/29/24 11:30 Amiodarone HCl 200 mg BID PO 06/30/24 22:00 07/14/24 09:17 200 MG Mexiletine HCl 150 mg Q8HR PO 06/30/24 22:00 07/14/24 06:05 150 MG Acetaminophen 650 mg Q4HP PRN PO 07/03/24 18:00 Morphine Sulfate 1 mg Q4HP PRN IV 07/05/24 15:45 07/14/24 09:20 1 MG Pantoprazole Sodium 40 mg DAILY@0600 PO 07/07/24 06:00 07/14/24 06:05 40 MG Ondansetron HCl 4 mg Q6HPRN PRN IV 07/06/24 12:45 07/14/24 10:56 4 MG Albumin Human 100 ml @ 100 mls/hr SHADY PRN IV 07/06/24 19:30 Apixaban 10 mg BID PO 07/11/24 22:00 07/16/24 21:59 07/14/24 09:17 10 MG Zirconium Oxide 10 gm TID PO 07/13/24 18:15 07/15/24 06:01 07/14/24 14:00 10 GM Docusate Sodium 100 mg BIDPRN PRN PO 07/14/24 11:00 Prednisone 20 mg DAILY PO 07/15/24 10:00 Examination General Appearance: Alert, Oriented X3, Cooperative, No acute distress Respiratory: Clear to auscultation, Normal air movement Cardiovascular: Paced rhythm, regular , Normal S1, Normal S2 Abdominal: Normal bowel sounds Extremities: No cyanosis, No edema, Normal pulses, No tenderness/swelling Skin: No rashes, excoriations in the lower extremities No breakdown tomorrow bends catheter, [facility] rajesh catheter Neuro: Normal speech, Strength at 5/5 X4 ext, Normal tone, Sensation intact, Cranial nerves 3-12 NL, Reflexes 2+ Psych/Mental Status: Mental status NL, Mood NL laboratory and microbiology Laboratory Tests 07/14/24 04:00 Test 07/14/24 04:00 Range/Units Serum Glucose 124 H 74-106 mg/dL Microbiology Date/Time Source Procedure Growth Status 07/09/24 14:18 Pleural Fluid Gram Stain - Final Resulted 07/09/24 14:18 Pleural Fluid Body Fluid Culture - Preliminary Resulted 06/28/24 11:44 Nose MRSA Screen - Final Complete 06/28/24 08:05 Sputum Gram Stain - Final Complete 06/28/24 08:05 Sputum Respiratory Culture - Final Complete 06/28/24 07:55 Blood Blood Culture - Final Staphylococcus epidermidis Complete Labs and/or images reviewed: Labs reviewed by me, Image(s) reviewed by me Problem List/Assessment/Plan Problem List/Assessment/Plan Neurology: #Acute encephalopathy due s/p cardiac arrest due to VTach/VFib #Patient extubated on 07/05 -Admitted to telemetry -Currently on NC 3L -Physical therapy Cardiovascular #Acute on chronic systolic heart failure NYHA III-IV #Cardiac arrest due to VT/VF #History of nonischemic cardiomyopathy #History of myocardial infarction #Severe pulmonary hypertension RVSP 75 mmHg #Atrial fibrillation #HFrEF 20% SP AICD/PREPAROLE COUNSELING AIDE D/pace #CAD status post 3 stents -amiodarone po -mexiletine po Respiratory: #Acute hypoxemic respiratory failure due to HFrEF 20% exacerbation #Acute hypoxic hypercapnic respiratory failure #Respiratory acidosis, resolved #Bilateral infiltrates on chest x-ray possible aspiration pneumonia / pulmonary edema #Right pleural effusion S/P thoracentesis #Pulmonary embolism ruled out - NC 3L - prednisone 30 mg po Gastrointestinal #left hepatic cyst Renal/ #ESRD on hemodialysis #Acute kidney injury on ESRD #Hyperkalemia #Hypoalbuminemia #hyponatremia - Rajesh catheter for hemodialysis - Right AV fistula repaired today - HD through rajesh catheter - Nephrology on board - [facility] Infectious disease: #Shock likely septic due to suspected UTI/aspiration pneumonia #Leukocytosis #Bilateral infiltrates likely due to possible aspiration pneumonia -resolved -daily CBC and CMP Endocrine #History of Type 2 diabetes # hyperglycemia Hematology: # Normocytic normochromic anemia status post 2 packed red blood cell transfusion in the setting of ESRD #av fistula repair #left subclavian thrombosis - Monitor CBC daily - H&H - apixaban 10 mg daily Case discussed with Code status: full code; advance care planning time 24 mins Plan discussed with: Patient, Other (sister) My Orders My Orders Orders - YVONNE DOMINGUEZ Procedure Category Date Status Time Pt Request For Service PT 07/13/24 Logged 22:18 * Impact [employer] Service Merchandiser CONS 07/14/24 Transmitted Consult Docusate Sodium PHA 07/14/24 In Process Capsule (Colace 11:00 Dietary Evaluation Review Comments: 1) Add renal restriction to mechanical soft diet order 2) Initiate Nepro bid 3) Continue to promote PO intake 4) Continue to monitor appetite, labs, and skin integrity Expected Outcomes/Goals: 1) appetite and labs to improve 2) wound to improve 3) f/u in 5 days Date of Service: Jul 14, 2024 Billing Provider: BELTRAN KLEIN MD Common Visit Codes: [id number] INP/OBS CARE(HIGH) YVONNE DOMINGUEZ RESIDENT Jul 14, 2024 19:01 BELTRAN KLEIN MD Jul 15, 2024 15:49
--- NOTE | 2024-07-14 20:47 | DVHPN2 ---
Progress Note Date Seen: Jul 14, 2024 Medical Necessity Reason Pt with a Central, PICC or Fol: Yes The following are medically ne: Central Line Subjective Patient reports: Other Review of Systems: Deferred Objective vital signs Vital Sign Date Time Temp Pulse Resp B/P (MAP) Pulse Ox O2 Delivery O2 Flow Rate FiO2 07/14/24 16:43 97.1 69 16 138/69 (92) 91 97.1 07/14/24 08:00 Nasal Cannula* 1 24 Total Intake and Output 07/13/24 07/13/24 07/14/24 15:00 23:00 07:00 Intake Total 200 ml 200 ml Output Total 50 ml 50 ml Balance 150 ml 150 ml medications Current Medications Medications Dose Ordered Sig/Colleen Route Start Time Stop Time Status Last Admin Dose Admin Bacitracin/ Polymyxin B Sulfate 1 applic TID OP 06/27/24 22:00 07/14/24 14:00 1 APPLIC Dextrose 50 ml UD PRN IV 06/28/24 08:00 06/29/24 11:58 50 ML Heparin Sodium/ Dextrose 250 ml @ 13.896 mls/ hr Q18H IV 06/28/24 08:00 UNV Epoetin Eligio-epbx 10,000 unit MWF@2100 SC 06/29/24 21:00 07/10/24 21:21 10,000 UNIT Artificial Tears 2 drop Q6HP PRN EACHEYE 06/29/24 11:30 Amiodarone HCl 200 mg BID PO 06/30/24 22:00 07/14/24 09:17 200 MG Mexiletine HCl 150 mg Q8HR PO 06/30/24 22:00 07/14/24 06:05 150 MG Acetaminophen 650 mg Q4HP PRN PO 07/03/24 18:00 Morphine Sulfate 1 mg Q4HP PRN IV 07/05/24 15:45 07/14/24 09:20 1 MG Pantoprazole Sodium 40 mg DAILY@0600 PO 07/07/24 06:00 07/14/24 06:05 40 MG Ondansetron HCl 4 mg Q6HPRN PRN IV 07/06/24 12:45 07/14/24 10:56 4 MG Albumin Human 100 ml @ 100 mls/hr SHADY PRN IV 07/06/24 19:30 Apixaban 10 mg BID PO 07/11/24 22:00 3/6/25 21:59 07/14/24 09:17 10 MG Zirconium Oxide 10 gm TID PO 07/13/24 18:15 07/15/24 06:01 07/14/24 14:00 10 GM Docusate Sodium 100 mg BIDPRN PRN PO 07/14/24 11:00 Prednisone 20 mg DAILY PO 07/15/24 10:00 laboratory and microbiology Laboratory Tests 07/14/24 04:00 Test 07/14/24 04:00 Range/Units Serum Glucose 124 H 74-106 mg/dL Microbiology Date/Time Source Procedure Growth Status 07/09/24 14:18 Pleural Fluid Gram Stain - Final Resulted 07/09/24 14:18 Pleural Fluid Body Fluid Culture - Preliminary Resulted 06/28/24 11:44 Nose MRSA Screen - Final Complete 06/28/24 08:05 Sputum Gram Stain - Final Complete 06/28/24 08:05 Sputum Respiratory Culture - Final Complete 06/28/24 07:55 Blood Blood Culture - Final Staphylococcus epidermidis Complete Problem List/Assessment/Plan Problem List/Assessment/Plan ESRD s/p cardiac arrest Pleural effusions s/p thoracentesis 1.5L removed CHF exacerbation Hx of Afib Hx of [place] HTN anemia due to CKD hyponatremia thrombosed Right AVF s/p surgical revision recs Hemodialysis today AVF no blood return,, +blood clots per rn ---reconsult vascular sx We will follow closely Plan discussed with: Patient My Orders My Orders Orders - ADITYA DUNCAN MD Procedure Category Date Status Time Consult CONS 07/14/24 Verified Vascular/Endovascular 20:45 Dietary Evaluation Review Comments: 1) Add renal restriction to mechanical soft diet order 2) Initiate Nepro bid 3) Continue to promote PO intake 4) Continue to monitor appetite, labs, and skin integrity Expected Outcomes/Goals: 1) appetite and labs to improve 2) wound to improve 3) f/u in 5 days ADITYA DUNCAN MD Jul 14, 2024 20:47
[2024-07-15] VITALS (8 sets, daily range): BP systolic 116–138; BP diastolic 64–80; PULSE 73–78; RESP 17–20; TEMP 96.5–97.9; O2SAT 95–99
--- NOTE | 2024-07-15 06:37 | DVHPN2 ---
Progress Note - Dictate Date Seen: Jul 15, 2024 Medical Necessity Reason Pt with a Central, PICC or Fol: Yes The following are medically ne: Central Line vital signs Vital Sign Date Time Temp Pulse Resp B/P (MAP) Pulse Ox O2 Delivery O2 Flow Rate FiO2 07/15/24 05:00 97.8 75 17 129/70 (89) 95 97.8 07/15/24 02:33 Nasal Cannula* 3 32 Total Intake and Output 07/14/24 07/14/24 07/15/24 15:00 23:00 07:00 Intake Total 500 ml 400 ml Output Total 600 ml Balance -100 ml 400 ml medications Current Medications Medications Dose Ordered Sig/Colleen Route Start Time Stop Time Status Last Admin Dose Admin Bacitracin/ Polymyxin B Sulfate 1 applic TID OP 06/27/24 22:00 07/15/24 05:26 1 APPLIC Dextrose 50 ml UD PRN IV 06/28/24 08:00 06/29/24 11:58 50 ML Heparin Sodium/ Dextrose 250 ml @ 13.896 mls/ hr Q18H IV 06/28/24 08:00 UNV Epoetin Eligio-epbx 10,000 unit MWF@2100 SC 06/29/24 21:00 07/10/24 21:21 10,000 UNIT Artificial Tears 2 drop Q6HP PRN EACHEYE 06/29/24 11:30 Amiodarone HCl 200 mg BID PO 06/30/24 22:00 07/14/24 21:27 200 MG Mexiletine HCl 150 mg Q8HR PO 06/30/24 22:00 07/15/24 05:21 150 MG Acetaminophen 650 mg Q4HP PRN PO 07/03/24 18:00 Morphine Sulfate 1 mg Q4HP PRN IV 07/05/24 15:45 07/15/24 03:38 1 MG Pantoprazole Sodium 40 mg DAILY@0600 PO 07/07/24 06:00 07/15/24 05:21 40 MG Ondansetron HCl 4 mg Q6HPRN PRN IV 07/06/24 12:45 07/14/24 10:56 4 MG Albumin Human 100 ml @ 100 mls/hr SHADY PRN IV 07/06/24 19:30 Apixaban 10 mg BID PO 07/11/24 22:00 07/16/24 21:59 07/14/24 21:27 10 MG Docusate Sodium 100 mg BIDPRN PRN PO 07/14/24 11:00 Prednisone 20 mg DAILY PO 07/15/24 10:00 laboratory and microbiology Laboratory Tests 07/14/24 04:00 Test 07/14/24 04:00 Range/Units Serum Glucose 124 H 74-106 mg/dL Assessment/Plan Patient is a 64-year-old gentleman who presented on June 27, 2024 for around a week of flu symptoms and upper left swellings. At the time of evaluation, the patient is being managed in unit. He is intubated and not source of history. Information was obtained by reviewing the chart. Reportedly, the patient had missed hemodialysis quite a few times before presentation as he felt sick. It is reported that he did have flu-like symptoms, eye congestion and diarrhea prior to presentation. While being managed on the floor, patient was found to be nonresponsive and was coded. There is no detailed information about the time of the code. There is question about PEA. The patient was intubated and was brought to the unit. Patient was seen by on-call laborer/grade check at that point. At this point, we are called for Cardiology as the patient is known to us from before. There is no report of actual chest pain. It is of note that serial troponin has been negative. There is no available telemetry at the time of the episode. Is also of note that the patient does have BiV-ICD from before. Presently, the patient is admitted with septic shock. Patient was in the hospital around a month ago. And was managed for acute on chronic systolic heart failure, pancytopenia and pleural effusions (for which had pleurocentesis). He should have been on Eliquis as outpatient. Extubated. There are signs of conjunctivitis on bilateral eyes. No JVD. Mucosa is pink and wet. No carotid bruit. Lungs: Scattered rhonchi in the lungs is heard. Cardiac: Regular, systolic murmur 3/6 in the apex is heard. The site for ICD implantation looks clean with no erythema/ecchymosis/tenderness. Abdomen is soft. Bowel sound is positive. Extremities reveal 2+ edema bilaterally. AV fistula in the right upper extremity with thrill was observed. 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 Echocardiogram of April 08, 2024 had reported four-chamber dilatation, ejection fraction of 20%, nuot-su-dxdjlitz MR/TR and right ventricular systolic pressure of 75 mm Hg Echocardiogram of May 19, 2024 had reported four-chamber dilatation, ejection fraction of 35%, D shaped septum, pulmonary hypertension, mobile interatrial septum, [id number] aortic insufficiency, mild mitral regurgitation, moderate TR and right ventricular systolic pressure of 80 mm Hg Troponin (high sensitive) 40 - 41 - 40 BNP: 2509.04 D-Dimer: 4.72 Digoxin: <0.14 Chest x-ray reported: FINDINGS: LUNGS AND PLEURAL SPACES: See below. HEART: Cardiomegaly with moderate congestion. Left cardiac. MEDIASTINUM: Unremarkable. Normal mediastinal contour. BONES/JOINTS: Unremarkable. No acute fracture. OTHER FINDINGS: . . . .. IMPRESSION: Cardiomegaly with moderate congestion. Repeat chest x-ray reported: Medical devices: The ETT ends above the level of elizabeth at the level of clavicular heads. The enteric tube extends to the stomach. Multi lead left upper chest wall AICD with leads extending to the cardiac chambers. Cardiomediastinal: The heart is moderately enlarged. Pulmonary vasculature is prominent. Atherosclerotic calcification of the aortic arch noted. Lungs: There is interval enlargement of now moderate-sized right pleural effusion and interval development of patchy consolidation in the right middle and left upper lung zone. Small opacities are noted in the left lung base. Diffuse bilateral interstitial opacities are noted. No pneumothorax. Bones/soft tissues: No acute abnormality is noted. Right subclavian vascular stents noted. IMPRESSION: 1. Worsening CHF with moderate right pleural effusion , interval development of extensive bilateral interstitial opacities and large patchy multifocal bilateral consolidations that may represent edema or pneumonia. Recommend clinical and biochemical correlation. Repeat chest xry reported: IMPRESSION: 1. Right basilar atelectasis or pneumonia. 2. Cardiomegaly with mild congestion. Repeat chest xry reported: IMPRESSION: 1. Right basilar atelectasis or pneumonia. Small bilateral pleural effusions. 2. Cardiomegaly with mild congestion. 3. Endotracheal tube now projects 6 cm above level the elizabeth in appropriate position. Repeat chest xry reported: IMPRESSION: 1. Cardiomegaly with pulmonary congestion and edema. Superimposed pneumonia cannot be excluded. 2. Right pleural effusion. Repeat chest xry reported: FINDINGS: VERTEBRAE: Unremarkable. No acute fracture. Normal alignment. No instability. DISC SPACES: No acute findings. No significant narrowing. SOFT TISSUES: Unremarkable. HEART: Left cardiac. Mild congestive heart failure. TUBES, LINES AND DEVICES: Enteric tube tip in the stomach. The endotracheal tube (ETT) is in satisfactory position. OTHER FINDINGS: . ... IMPRESSION: Mild congestive heart failure. Repeat chest xry revealed: IMPRESSION: Cardiomegaly with moderate congestion. Repeat chest xry revealed: IMPRESSION: 1. Mechanical ventilation with tubes and lines as above. 2. Right basilar infiltrate and effusion, improved. 3. Cardiomegaly. Repeat chest xry revealed: IMPRESSION: 1. Biventricular pacemaker in place 2. Bibasilar infiltrates right pleural effusion. Right pleural effusion appears to have slightly increased. This may be secondary to patient positioning. 3. Right subclavian stent in place unchanged from 07/04/2024.. Repeat chest xry revealed: Lines and Tubes: Left chest wall AICD. Left central venous catheter in satisfactory position. Lungs: Patchy bilateral airspace opacities. Pleura: Small bilateral pleural effusions, [id number]. No pneumothorax. Cardiomediastinal contours: Unremarkable Bones: Unremarkable IMPRESSION: Unchanged fluid overload. Repeat chest xry revealed: Lines and Tubes: Left chest wall AICD. Left central venous catheter in satisfactory position. Lungs: Mild congestion Pleura: Small right pleural effusion. No pneumothorax. Cardiomediastinal contours: Cardiomegaly Bones: Unremarkable IMPRESSION: Small right pleural effusion. Repeat chest xry revealed: IMPRESSION: Cardiomegaly with small bilateral pleural effusions and bibasilar opacities. Repeat chest xry revealed: IMPRESSION: Small right pneumothorax. Cardiomegaly with left lower lung consolidative opacity. Interval decrease in right pleural effusion compared to prior exam. Critical Result: Pneumothorax Repeat chest xry revealed: IMPRESSION: Interval resolution of previously seen right pneumothorax. Pulmonary edema. Small left pleural effusion. Chest ultrasound revealed: Findings/Impression: Moderate to large right pleural effusion. No left pleural effusion. Thoracentesis (07/09/2024): IMPRESSION: Ultrasound guided RIGHT thoracentesis. Venous duplex of left upper ext (07/09/2024): Impression: Thrombus in the left subclavian vein If clinical concern/symptoms persist or worsen, short-interval follow-up study is suggested. Upper ext (right) arterial duplex reported: IMPRESSION: 1. The right upper extremity brachial-cephalic AVF is thrombosed. 2. The right axillary stent is thrombosed. 3. The arteries of the right upper extremity including subclavian, axillary, brachial, radial and ulnar arteries are patent. Repeat Upper ext (right) arterial duplex reported: IMPRESSION: Thrombus is seen at the mid and distal aspect of right upper extremity fistula. Thrombus is seen in the cephalic vein. Vascular surgery consultation recommended. CTA of lungs revealed: IMPRESSION: 1. No pulmonary embolism. 2. Large right and small left pleural effusion with associated bilateral atelectasis and consolidation. Patchy ground-glass opacities could represent pulmonary edema or an infectious / inflammatory process. Mediastinal lymphadenopathy similar to prior. Clinical correlation and continued follow-up is recommended. Overall appearance is worse compared to prior exam. CT of head reported: 1. No acute intracranial pathology. Cortical atrophy greater on the left. EKG revealed paced rhythm Telemetry revealed paced rhythm (it is of note that telemetry rhythm at the time of the code is not available to revealed) Echocardiogram reported: limited study. lvef 20% by visual estimate. postop septum. septum flattening noted. RV enlarged with dysfunction. biatrial enlargement. valves not assessed Med[employer] ICD interrogation revealed: Remaining longevity of battery: 3.8 years; DDDR: 60/130; Pacing impedance: A 380 /RV 323/LV 304 Ohms; Shock impedance: RV 29 Ohms; Capture threshold: Atrial 0.5/RV 0.875 volts at 0.4 milliseconds; Program sensitivity: Atrial 0.3/RV 0.3 mV; Episodes: VT/VF: 1 resulting in shock; Changes performed: VTE detection interval was changed from 270 millisecond to 320 millisecond/VT detection interval was changed from 330 millisecond to 400 milliseconds Cardiac cath performed: Diagnosis: Nonobstructive coronary artery disease; Patent stents in mid LAD/proximal RCA/distal RCA; Negative FFR of 50% lesion in mid LAD; LVEDP of 10 mm Hg; Cardiac suggestions for management: Optimized medical therapy; Guideline directed medical therapy for systolic heart failure; Lifestyle and risk factor modification Patient is a 64-year-old gentleman who presented with flu-like symptoms, but later coded in the floor. No tele rhythm of the time of the code was available to review (at first). Reportedly there was PA. Stable serial high sensitive troponin is against acute coronary syndrome. Patient does have baseline history of heart failure and pulmonary hypertension. He also has Bi V ICD (interrogation revealed episode of v-fib/v-tach resulting in Defibrillation). Does have baseline history of noncompliance to medication/hemodialysis. Does have baseline history of pancytopenia and is found to have significant anemia. With respiratory failure and on vent support. Case discussed with Electrophysiology (Dr Tamayo). Acute arrest Rule out PA Questionable encephalopathy, anoxic versus toxic? Recent URI Septic shock s/p Defibrillation secondary to V-fib/Vtach Encephalopathy Baseline pulmonary hypertension Baseline systolic heart failure Status post Bi V ICD End-stage renal disease, Noncompliant with medication, followups and hemodialysis Pancytopenia History of GI bleeding Right pleural effusion s/p Right AV fistula thrombectomy central angioplasty and peripheral venous angioplasty by Vascular surgeon s/p thoracentesis resulting in pneumothorax DVT of left subclavian vein Cardiac suggestion for management: Manage in telemetry Follow-up electrolytes and kidney function tests and correct abnormalities On Amiodarone and Mexiletine Optimized medical therapy; Guideline directed medical therapy for systolic heart failure Consider removal of central line from left neck Anticoagulation as per primary team Pulmonary follow up is advised. Management of right upper ext DVT as per primary team and vascular Further evaluation and management depends on the above and clinical course A total of 55 minutes was spent reviewing the patient record, examining the patient, making a diagnostic and therapeutic plan, discussing this plan with medical personnel, following up on diagnostic studies and following the patient for clinical stability excluding any and all procedures. At least 50% of this time was spent in direct, [id number] contact. Thank you for allowing me to participate in this patient's care. Further recommendations will depend on patient's clinical course. Please do not hesitate to contact me if you have any questions or concerns. This medical document was created using electronic medical record system with [employer] dictation system. Although this document has been carefully reviewed, there may still be some phonetic and typographical errors. These areas are purely typographical due to the imperfection of the software programs, and do not reflect any compromise in the patient's medical care. Dietary Evaluation Review Comments: 1) Add renal restriction to mechanical soft diet order 2) Initiate Nepro bid 3) Continue to promote PO intake 4) Continue to monitor appetite, labs, and skin integrity Expected Outcomes/Goals: 1) appetite and labs to improve 2) wound to improve 3) f/u in 5 days Plan discussed with: Patient, Other (nurse) SUSHMA WALKER MD Jul 15, 2024 06:36
[2024-07-15 07:47] LABS: Alkaline Phosphatase 105 U/L (46-116); Anion Gap 13 (5-15); Aspartate Aminotransferase 33 U/L (13-40); BUN/Creatinine Ratio 10.2 (10.0-20.0); Calcium 8.8 mg/dL (8.7-10.4); Carbon Dioxide 27 mmol/L (20-31); Potassium 3.5 mmol/L (3.5-5.1); Total Protein 5.8 g/dL (5.7-8.2)
[2024-07-15] MEDS: DOCUSATE SOD 100 MG CAP PO ONE (07:47)
[2024-07-15 07:48] LABS: Albumin 3.4 g/dL (3.2-4.8); Bilirubin, Total 0.6 mg/dL (0.2-1.0)
[2024-07-15 07:50] LABS: Alanine Aminotransferase 166 U/L (7-40); Blood Urea Nitrogen 52 mg/dL (9-23); Chloride 93 mmol/L (98-107); Glucose 186 mg/dL (74-106); Sodium 133 mmol/L (136-145)
[2024-07-15] MEDS: predniSONE 20 MG TAB PO SCH (09:31)
--- NOTE | 2024-07-15 12:23 | DVH ---
XY CHEST PORTABLE, HISTORY: sob COMPARISON: XY CHEST PORTABLE on DOS: 07/09/24, XY CHEST PORTABLE on DOS: 07/09/24, XY CHEST PORTABLE o n DOS: 07/09/24 XY CHEST PORTABLE on DOS: 07/09/24, XY CHEST PORTABLE on DOS: 07/09/24, XY CHEST PORTABLE on DOS: TECHNICAL DATA: 1 view of the chest was obtained. FINDINGS: Lines and tubes: Stents are noted in the right shoulder, pacer is noted, left HD cath is seen. Cardiomediastinal silhouette: Enlarged Pulmonary vasculature: Prominent Lung expansion: low Lung airspace: Left basilar consolidation. Lung interstitium: normal Pleura: normal Pneumothorax: no Bones: Unremarkable Other: no IMPRESSION: Left basilar consolidation, similar to prior.
[2024-07-15 13:24] LABS: Base Excess -0.8 mmol/L (-2.0-3.0)
--- NOTE | 2024-07-15 16:16 | DVHPN2 ---
Progress Note Date Seen: Jul 15, 2024 Medical Necessity Reason Pt with a Central, PICC or Fol: Yes The following are medically ne: Central Line Subjective Patient reports: No new complaints Review of Systems: Deferred Objective vital signs Vital Sign Date Time Temp Pulse Resp B/P (MAP) Pulse Ox O2 Delivery O2 Flow Rate FiO2 07/15/24 13:00 97.4 74 18 116/64 (81) 98 97.4 07/15/24 08:00 Nasal Cannula* 3 32 Total Intake and Output 07/14/24 07/14/24 07/15/24 15:00 23:00 07:00 Intake Total 500 ml 400 ml Output Total 600 ml Balance -100 ml 400 ml medications Current Medications Medications Dose Ordered Sig/Colleen Route Start Time Stop Time Status Last Admin Dose Admin Bacitracin/ Polymyxin B Sulfate 1 applic TID OP 06/27/24 22:00 07/15/24 13:50 1 APPLIC Dextrose 50 ml UD PRN IV 06/28/24 08:00 06/29/24 11:58 50 ML Heparin Sodium/ Dextrose 250 ml @ 13.896 mls/ hr Q18H IV 06/28/24 08:00 UNV Epoetin Eligio-epbx 10,000 unit MWF@2100 SC 06/29/24 21:00 07/10/24 21:21 10,000 UNIT Artificial Tears 2 drop Q6HP PRN EACHEYE 06/29/24 11:30 Amiodarone HCl 200 mg BID PO 06/30/24 22:00 07/15/24 09:32 200 MG Mexiletine HCl 150 mg Q8HR PO 06/30/24 22:00 07/15/24 13:49 150 MG Acetaminophen 650 mg Q4HP PRN PO 07/03/24 18:00 Morphine Sulfate 1 mg Q4HP PRN IV 07/05/24 15:45 07/15/24 03:38 1 MG Pantoprazole Sodium 40 mg DAILY@0600 PO 07/07/24 06:00 07/15/24 05:21 40 MG Ondansetron HCl 4 mg Q6HPRN PRN IV 07/06/24 12:45 07/14/24 10:56 4 MG Albumin Human 100 ml @ 100 mls/hr SHADY PRN IV 07/06/24 19:30 Apixaban 10 mg BID PO 07/11/24 22:00 07/16/24 21:59 07/15/24 09:32 10 MG Docusate Sodium 100 mg BIDPRN PRN PO 07/14/24 11:00 Prednisone 20 mg DAILY PO 07/15/24 10:00 07/15/24 09:31 20 MG laboratory and microbiology Laboratory Tests 07/15/24 06:16 07/14/24 04:00 Test 07/15/24 06:16 Range/Units Serum Glucose 186 H 74-106 mg/dL Microbiology Date/Time Source Procedure Growth Status 07/09/24 14:18 Pleural Fluid Gram Stain - Final Complete 07/09/24 14:18 Pleural Fluid Body Fluid Culture - Final Complete 06/28/24 11:44 Nose MRSA Screen - Final Complete 06/28/24 08:05 Sputum Gram Stain - Final Complete 06/28/24 08:05 Sputum Respiratory Culture - Final Complete 06/28/24 07:55 Blood Blood Culture - Final Staphylococcus epidermidis Complete Problem List/Assessment/Plan Problem List/Assessment/Plan ESRD s/p cardiac arrest Pleural effusions s/p thoracentesis 1.5L removed CHF exacerbation Hx of Afib Hx of [place] HTN anemia due to CKD hyponatremia thrombosed Right AVF s/p surgical revision recs Hemodialysis tomorrow AVF no blood return,, +blood clots per rn ---d/w IR today suggested to cannulate above aneurysm site --will attempt AVF tomorrow We will follow closely Plan discussed with: Patient My Orders My Orders Orders - ADITYA DUNCAN MD Procedure Category Date Status Time Consult CONS 07/14/24 Transmitted Vascular/Endovascular 20:45 Dietary Evaluation Review Comments: 1) Add renal restriction to mechanical soft diet order 2) Initiate Nepro bid 3) Continue to promote PO intake 4) Continue to monitor appetite, labs, and skin integrity Expected Outcomes/Goals: 1) appetite and labs to improve 2) wound to improve 3) f/u in 5 days ADITYA DUNCAN MD Jul 15, 2024 16:16
--- NOTE | 2024-07-15 19:06 | DVHPNRES ---
Progress Note Date Seen: Jul 15, 2024 Resident Creating Document: YVONNE DOMINGUEZ Medical Necessity Reason Pt with a Central, PICC or Fol: Yes The following are medically ne: Central Line Medical Necessity Reason hemodialysis Subjective Review of Systems Patient examined at bedside, alert and oriented x4 currently on NC 3L , he reports chest pain this morning and shortness of breath , increase work of breathing and weakness, troponins levels showed mild elevation , ekg and abg did not showed marked changes. We will continue same management, pending hemodialysis for tomorrow. AV fistula did not have blood return, Hemodialysis was done through the [facility] Rajesh catheter. AVF showed no blood return, radiologist , he suggested to cannulate above aneurysm site , will attempt AVF tomorrow Patient reports: No new complaints Review of Systems: HEENT:Normal, CVS:Normal, RESPIRATORY:Normal, GI:Normal, :Abnormal, MSK:Normal, NEURO:Normal Objective vital signs Vital Sign Date Time Temp Pulse Resp B/P (MAP) Pulse Ox O2 Delivery O2 Flow Rate FiO2 07/15/24 17:00 97.5 78 18 130/78 (95) 99 97.5 07/15/24 08:00 Nasal Cannula* 3 32 Total Intake and Output 07/14/24 07/14/24 07/15/24 15:00 23:00 07:00 Intake Total 500 ml 400 ml Output Total 600 ml Balance -100 ml 400 ml medications Current Medications Medications Dose Ordered Sig/Colleen Route Start Time Stop Time Status Last Admin Dose Admin Bacitracin/ Polymyxin B Sulfate 1 applic TID OP 06/27/24 22:00 07/15/24 13:50 1 APPLIC Dextrose 50 ml UD PRN IV 06/28/24 08:00 06/29/24 11:58 50 ML Heparin Sodium/ Dextrose 250 ml @ 13.896 mls/ hr Q18H IV 06/28/24 08:00 UNV Epoetin Eligio-epbx 10,000 unit MWF@2100 SC 06/29/24 21:00 07/10/24 21:21 10,000 UNIT Artificial Tears 2 drop Q6HP PRN EACHEYE 06/29/24 11:30 Amiodarone HCl 200 mg BID PO 06/30/24 22:00 07/15/24 09:32 200 MG Mexiletine HCl 150 mg Q8HR PO 06/30/24 22:00 07/15/24 13:49 150 MG Acetaminophen 650 mg Q4HP PRN PO 07/03/24 18:00 Morphine Sulfate 1 mg Q4HP PRN IV 07/05/24 15:45 07/15/24 03:38 1 MG Pantoprazole Sodium 40 mg DAILY@0600 PO 07/07/24 06:00 07/15/24 05:21 40 MG Ondansetron HCl 4 mg Q6HPRN PRN IV 07/06/24 12:45 07/14/24 10:56 4 MG Albumin Human 100 ml @ 100 mls/hr SHADY PRN IV 07/06/24 19:30 Apixaban 10 mg BID PO 07/11/24 22:00 07/16/24 21:59 07/15/24 09:32 10 MG Docusate Sodium 100 mg BIDPRN PRN PO 07/14/24 11:00 Prednisone 20 mg DAILY PO 07/15/24 10:00 07/15/24 09:31 20 MG Examination General Appearance: Alert, Oriented X3, Cooperative, No acute distress Respiratory: Clear to auscultation, Normal air movement Cardiovascular: Paced rhythm, regular , Normal S1, Normal S2 Abdominal: Normal bowel sounds Extremities: No cyanosis, No edema, Normal pulses, No tenderness/swelling Skin: No rashes, excoriations in the lower extremities, [facility]J rajesh catheter Neuro: Normal speech, Strength at 4/5 X4 ext, Normal tone, Sensation intact, Cranial nerves 3-12 NL, Reflexes 2+ Psych/Mental Status: Mental status NL, Mood NL laboratory and microbiology Laboratory Tests 07/15/24 06:16 07/14/24 04:00 Test 07/15/24 06:16 Range/Units Serum Glucose 186 H 74-106 mg/dL Microbiology Date/Time Source Procedure Growth Status 07/09/24 14:18 Pleural Fluid Gram Stain - Final Complete 07/09/24 14:18 Pleural Fluid Body Fluid Culture - Final Complete 06/28/24 11:44 Nose MRSA Screen - Final Complete 06/28/24 08:05 Sputum Gram Stain - Final Complete 06/28/24 08:05 Sputum Respiratory Culture - Final Complete 06/28/24 07:55 Blood Blood Culture - Final Staphylococcus epidermidis Complete Labs and/or images reviewed: Labs reviewed by me, Image(s) reviewed by me Problem List/Assessment/Plan Problem List/Assessment/Plan Neurology: #Acute encephalopathy due s/p cardiac arrest due to VTach/VFib #Patient extubated on 07/05 -Admitted to telemetry -Currently on NC 3L -Physical therapy Cardiovascular #Acute on chronic systolic heart failure NYHA III-IV #Cardiac arrest due to VT/VF #History of nonischemic cardiomyopathy #History of myocardial infarction #Severe pulmonary hypertension RVSP 75 mmHg #Atrial fibrillation #NSTEMI type 2 #HFrEF 20% 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 #CAD status post 3 stents -amiodarone po -mexiletine po Respiratory: #Acute hypoxemic respiratory failure due to HFrEF 20% exacerbation #Acute hypoxic hypercapnic respiratory failure #Respiratory acidosis #Bilateral infiltrates on chest x-ray possible aspiration pneumonia / pulmonary edema #Right pleural effusion S/P thoracentesis #Pulmonary embolism ruled out - NC 3L - prednisone 30 mg po Gastrointestinal #left hepatic cyst #Transaminitis , resolved Renal/ #ESRD on hemodialysis #Acute kidney injury on ESRD #Hyperkalemia #Hypoalbuminemia #hyponatremia - Rajesh catheter for hemodialysis - HD through AV fistula tomorrow - Nephrology on board Infectious disease: #Shock likely septic due to suspected UTI/aspiration pneumonia #Leukocytosis #Bilateral infiltrates likely due to possible aspiration pneumonia -resolved -daily CBC and CMP Endocrine # Subclinical hypothyroidism Hematology: # Normocytic normochromic anemia status post 2 packed red blood cell transfusion in the setting of ESRD #av fistula repair #left subclavian thrombosis - Monitor CBC daily - H&H - apixaban 10 mg dailY Case discussed with Code status: full code; advance care planning time 23 mins Plan discussed with: Patient, Other (sister) My Orders My Orders Orders - YVONNE DOMINGUEZ RESIDENT Procedure Category Date Status Time Chest Portable XY 07/15/24 Resulted 11:39 Electrocardigram EKG 07/15/24 Logged 11:39 Electrocardigram EKG 07/15/24 Logged 12:39 Abg W/ Co-Ox RT 07/15/24 Logged 14:27 Complete Blood Count LAB 07/16/24 Verified 04:00 Comprehensive LAB 07/16/24 Verified Metabolic Panel 04:00 Dietary Evaluation Review Comments: 1) Add renal restriction to mechanical soft diet order 2) Initiate Nepro bid 3) Continue to promote PO intake 4) Continue to monitor appetite, labs, and skin integrity Expected Outcomes/Goals: 1) appetite and labs to improve 2) wound to improve 3) f/u in 5 days Date of Service: Jul 15, 2024 Billing Provider: BELTRAN KLEIN MD Common Visit Codes: 74318-[id number] INP/OBS CARE(HIGH) Secondary Visit Codes: 57593-[id number] CARE PLAN 30 MINUTES YVONNE DOMINGUEZ RESIDENT Jul 15, 2024 19:06 BELTRAN KLEIN MD Jul 16, 2024 11:56
[2024-07-16] VITALS (7 sets, daily range): BP systolic 113–149; BP diastolic 65–87; PULSE 63–79; RESP 16–18; TEMP 97.4–98.7; O2SAT 91–99
[2024-07-16 06:48] LABS: Basophils # (auto) 0 10 ^3/uL (0-0.2); Basophils % (auto) 0.2 % (0.0-2.0); Eosinophils # (auto) 0 10 ^3/uL (0-0.8); Eosinophils % (auto) 0.7 % (0.0-7.0); Hematocrit 29.3 % (41.0-53.0); Lymphocytes # (auto) 0.1 10 ^3/uL (0.4-5.4); Mean Corpuscular Hemoglobin 33.8 pg (28.0-32.0); Mean Corpuscular Hgb Conc. 34.1 g/dL (32.0-36.0); Mean Corpuscular Volume 99.2 fL (80.0-100.0); Monocytes # (auto) 0.4 10 ^3/uL (0-1.3); Monocytes % (auto) 5.4 % (0.0-12.0); Neutrophils # (auto) 6.4 10 ^3/uL (1.6-8.6); Neutrophils % (auto) 91.7 % (37.0-80.0); Nucleated Red Blood Cells % 0.6 %; Platelet Count (auto) 86 10^3/uL (140-450); Red Blood Cells 2.95 10^6/uL (4.5-5.90); Red Cell Distribution Width 20.1 % (11.8-14.3); White Blood Cell 6.9 10^3/uL (4.4-10.8)
[2024-07-16 07:05] LABS: Albumin 3.4 g/dL (3.2-4.8); Alkaline Phosphatase 90 U/L (46-116); Anion Gap 14 (5-15); Aspartate Aminotransferase 21 U/L (13-40); BUN/Creatinine Ratio 9.9 (10.0-20.0); Bilirubin, Total 0.6 mg/dL (0.2-1.0); Calcium 9.1 mg/dL (8.7-10.4); Carbon Dioxide 24 mmol/L (20-31); Potassium 3.9 mmol/L (3.5-5.1); Total Protein 5.8 g/dL (5.7-8.2)
[2024-07-16 07:06] LABS: Alanine Aminotransferase 126 U/L (7-40); Blood Urea Nitrogen 58 mg/dL (9-23); Chloride 91 mmol/L (98-107); Glucose 110 mg/dL (74-106); Sodium 129 mmol/L (136-145)
--- NOTE | 2024-07-16 07:08 | DVHPN2 ---
Progress Note - Dictate Date Seen: Jul 16, 2024 Medical Necessity Reason Pt with a Central, PICC or Fol: Yes The following are medically ne: Central Line vital signs Vital Sign Date Time Temp Pulse Resp B/P (MAP) Pulse Ox O2 Delivery O2 Flow Rate FiO2 07/16/24 05:00 97.6 79 17 135/79 (97) 95 97.6 07/15/24 20:00 Nasal Cannula* 3 32 Total Intake and Output 07/15/24 07/15/24 07/16/24 15:00 23:00 07:00 Intake Total 450 ml 500 ml Balance 450 ml 500 ml medications Current Medications Medications Dose Ordered Sig/Colleen Route Start Time Stop Time Status Last Admin Dose Admin Bacitracin/ Polymyxin B Sulfate 1 applic TID OP 06/27/24 22:00 07/15/24 13:50 1 APPLIC Dextrose 50 ml UD PRN IV 06/28/24 08:00 06/29/24 11:58 50 ML Heparin Sodium/ Dextrose 250 ml @ 13.896 mls/ hr Q18H IV 06/28/24 08:00 UNV Epoetin Eligio-epbx 10,000 unit MWF@2100 SC 06/29/24 21:00 07/16/24 00:09 10,000 UNIT Artificial Tears 2 drop Q6HP PRN EACHEYE 06/29/24 11:30 Amiodarone HCl 200 mg BID PO 06/30/24 22:00 07/16/24 00:08 200 MG Mexiletine HCl 150 mg Q8HR PO 06/30/24 22:00 07/15/24 13:49 150 MG Acetaminophen 650 mg Q4HP PRN PO 07/03/24 18:00 Morphine Sulfate 1 mg Q4HP PRN IV 07/05/24 15:45 07/15/24 03:38 1 MG Pantoprazole Sodium 40 mg DAILY@0600 PO 07/07/24 06:00 07/16/24 06:30 40 MG Ondansetron HCl 4 mg Q6HPRN PRN IV 07/06/24 12:45 07/14/24 10:56 4 MG Albumin Human 100 ml @ 100 mls/hr SHADY PRN IV 07/06/24 19:30 Apixaban 10 mg BID PO 07/11/24 22:00 07/16/24 21:59 07/16/24 00:08 10 MG Docusate Sodium 100 mg BIDPRN PRN PO 07/14/24 11:00 Prednisone 20 mg DAILY PO 07/15/24 10:00 07/15/24 09:31 20 MG laboratory and microbiology Laboratory Tests 07/16/24 06:18 Test 07/16/24 06:18 Range/Units Serum Glucose 110 H 74-106 mg/dL Assessment/Plan Patient is a 64-year-old gentleman who presented on June 27, 2024 for around a week of flu symptoms and upper left swellings. At the time of evaluation, the patient is being managed in unit. He is intubated and not source of history. Information was obtained by reviewing the chart. Reportedly, the patient had missed hemodialysis quite a few times before presentation as he felt sick. It is reported that he did have flu-like symptoms, eye congestion and diarrhea prior to presentation. While being managed on the floor, patient was found to be nonresponsive and was coded. There is no detailed information about the time of the code. There is question about PEA. The patient was intubated and was brought to the unit. Patient was seen by on-call scenic arts supervisor at that point. At this point, we are called for Cardiology as the patient is known to us from before. There is no report of actual chest pain. It is of note that serial troponin has been negative. There is no available telemetry at the time of the episode. Is also of note that the patient does have BiV-ICD from before. Presently, the patient is admitted with septic shock. Patient was in the hospital around a month ago. And was managed for acute on chronic systolic heart failure, pancytopenia and pleural effusions (for which had pleurocentesis). He should have been on Eliquis as outpatient. Extubated. There are signs of conjunctivitis on bilateral eyes. No JVD. Mucosa is pink and wet. No carotid bruit. Lungs: Scattered rhonchi in the lungs is heard. Cardiac: Regular, systolic murmur 3/6 in the apex is heard. The site for ICD implantation looks clean with no erythema/ecchymosis/tenderness. Abdomen is soft. Bowel sound is positive. Extremities reveal 2+ edema bilaterally. AV fistula in the right upper extremity with thrill was observed. 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 Echocardiogram of April 08, 2024 had reported four-chamber dilatation, ejection fraction of 20%, [id number] MR/TR and right ventricular systolic pressure of 75 mm Hg Echocardiogram of May 19, 2024 had reported four-chamber dilatation, ejection fraction of 35%, D shaped septum, pulmonary hypertension, mobile interatrial septum, [id number] aortic insufficiency, mild mitral regurgitation, moderate TR and right ventricular systolic pressure of 80 mm Hg Troponin (high sensitive) 40 - 41 - 40 BNP: 2509.04 D-Dimer: 4.72 Digoxin: <0.14 Chest x-ray reported: FINDINGS: LUNGS AND PLEURAL SPACES: See below. HEART: Cardiomegaly with moderate congestion. Left cardiac. MEDIASTINUM: Unremarkable. Normal mediastinal contour. BONES/JOINTS: Unremarkable. No acute fracture. OTHER FINDINGS: . . . .. IMPRESSION: Cardiomegaly with moderate congestion. Repeat chest x-ray reported: Medical devices: The ETT ends above the level of elizabeth at the level of clavicular heads. The enteric tube extends to the stomach. Multi lead left upper chest wall AICD with leads extending to the cardiac chambers. Cardiomediastinal: The heart is moderately enlarged. Pulmonary vasculature is prominent. Atherosclerotic calcification of the aortic arch noted. Lungs: There is interval enlargement of now moderate-sized right pleural effusion and interval development of patchy consolidation in the right middle and left upper lung zone. Small opacities are noted in the left lung base. Diffuse bilateral interstitial opacities are noted. No pneumothorax. Bones/soft tissues: No acute abnormality is noted. Right subclavian vascular stents noted. IMPRESSION: 1. Worsening CHF with moderate right pleural effusion , interval development of extensive bilateral interstitial opacities and large patchy multifocal bilateral consolidations that may represent edema or pneumonia. Recommend clinical and biochemical correlation. Repeat chest xry reported: IMPRESSION: 1. Right basilar atelectasis or pneumonia. 2. Cardiomegaly with mild congestion. Repeat chest xry reported: IMPRESSION: 1. Right basilar atelectasis or pneumonia. Small bilateral pleural effusions. 2. Cardiomegaly with mild congestion. 3. Endotracheal tube now projects 6 cm above level the elizabeth in appropriate position. Repeat chest xry reported: IMPRESSION: 1. Cardiomegaly with pulmonary congestion and edema. Superimposed pneumonia cannot be excluded. 2. Right pleural effusion. Repeat chest xry reported: FINDINGS: VERTEBRAE: Unremarkable. No acute fracture. Normal alignment. No instability. DISC SPACES: No acute findings. No significant narrowing. SOFT TISSUES: Unremarkable. HEART: Left cardiac. Mild congestive heart failure. TUBES, LINES AND DEVICES: Enteric tube tip in the stomach. The endotracheal tube (ETT) is in satisfactory position. OTHER FINDINGS: . ... IMPRESSION: Mild congestive heart failure. Repeat chest xry revealed: IMPRESSION: Cardiomegaly with moderate congestion. Repeat chest xry revealed: IMPRESSION: 1. Mechanical ventilation with tubes and lines as above. 2. Right basilar infiltrate and effusion, improved. 3. Cardiomegaly. Repeat chest xry revealed: IMPRESSION: 1. Biventricular pacemaker in place 2. Bibasilar infiltrates right pleural effusion. Right pleural effusion appears to have slightly increased. This may be secondary to patient positioning. 3. Right subclavian stent in place unchanged from 07/04/2024.. Repeat chest xry revealed: Lines and Tubes: Left chest wall AICD. Left central venous catheter in satisfactory position. Lungs: Patchy bilateral airspace opacities. Pleura: Small bilateral pleural effusions, gjdow-[id number]-left. No pneumothorax. Cardiomediastinal contours: Unremarkable Bones: Unremarkable IMPRESSION: Unchanged fluid overload. Repeat chest xry revealed: Lines and Tubes: Left chest wall AICD. Left central venous catheter in satisfactory position. Lungs: Mild congestion Pleura: Small right pleural effusion. No pneumothorax. Cardiomediastinal contours: Cardiomegaly Bones: Unremarkable IMPRESSION: Small right pleural effusion. Repeat chest xry revealed: IMPRESSION: Cardiomegaly with small bilateral pleural effusions and bibasilar opacities. Repeat chest xry revealed: IMPRESSION: Small right pneumothorax. Cardiomegaly with left lower lung consolidative opacity. Interval decrease in right pleural effusion compared to prior exam. Critical Result: Pneumothorax Repeat chest xry revealed: IMPRESSION: Interval resolution of previously seen right pneumothorax. Pulmonary edema. Small left pleural effusion. Chest ultrasound revealed: Findings/Impression: Moderate to large right pleural effusion. No left pleural effusion. Thoracentesis (07/09/2024): IMPRESSION: Ultrasound guided RIGHT thoracentesis. Venous duplex of left upper ext (07/09/2024): Impression: Thrombus in the left subclavian vein If clinical concern/symptoms persist or worsen, short-interval follow-up study is suggested. Upper ext (right) arterial duplex reported: IMPRESSION: 1. The right upper extremity brachial-cephalic AVF is thrombosed. 2. The right axillary stent is thrombosed. 3. The arteries of the right upper extremity including subclavian, axillary, brachial, radial and ulnar arteries are patent. Repeat Upper ext (right) arterial duplex reported: IMPRESSION: Thrombus is seen at the mid and distal aspect of right upper extremity fistula. Thrombus is seen in the cephalic vein. Vascular surgery consultation recommended. CTA of lungs revealed: IMPRESSION: 1. No pulmonary embolism. 2. Large right and small left pleural effusion with associated bilateral atelectasis and consolidation. Patchy ground-glass opacities could represent pulmonary edema or an infectious / inflammatory process. Mediastinal lymphadenopathy similar to prior. Clinical correlation and continued follow-up is recommended. Overall appearance is worse compared to prior exam. CT of head reported: 1. No acute intracranial pathology. Cortical atrophy greater on the left. EKG revealed paced rhythm Telemetry revealed paced rhythm (it is of note that telemetry rhythm at the time of the code is not available to revealed) Echocardiogram reported: limited study. lvef 20% by visual estimate. postop septum. septum flattening noted. RV enlarged with dysfunction. biatrial enlargement. valves not assessed Medtronic ICD interrogation revealed: Remaining longevity of battery: 3.8 years; DDDR: 60/130; Pacing impedance: A 380 /RV 323/LV 304 Ohms; Shock impedance: RV 29 Ohms; Capture threshold: Atrial 0.5/RV 0.875 volts at 0.4 milliseconds; Program sensitivity: Atrial 0.3/RV 0.3 mV; Episodes: VT/VF: 1 resulting in shock; Changes performed: VTE detection interval was changed from 270 millisecond to 320 millisecond/VT detection interval was changed from 330 millisecond to 400 milliseconds Cardiac cath performed: Diagnosis: Nonobstructive coronary artery disease; Patent stents in mid LAD/proximal RCA/distal RCA; Negative FFR of 50% lesion in mid LAD; LVEDP of 10 mm Hg; Cardiac suggestions for management: Optimized medical therapy; Guideline directed medical therapy for systolic heart failure; Lifestyle and risk factor modification Patient is a 64-year-old gentleman who presented with flu-like symptoms, but later coded in the floor. No tele rhythm of the time of the code was available to review (at first). Reportedly there was PA. Stable serial high sensitive troponin is against acute coronary syndrome. Patient does have baseline history of heart failure and pulmonary hypertension. He also has Bi V ICD (interrogation revealed episode of v-fib/v-tach resulting in Defibrillation). Does have baseline history of noncompliance to medication/hemodialysis. Does have baseline history of pancytopenia and is found to have significant anemia. With respiratory failure and on vent support. Case discussed with Electrophysiology (Dr Tamayo). Acute arrest Rule out PA Questionable encephalopathy, anoxic versus toxic? Recent URI Septic shock s/p Defibrillation secondary to V-fib/Vtach Encephalopathy Baseline pulmonary hypertension Baseline systolic heart failure Status post Bi V ICD End-stage renal disease, Noncompliant with medication, followups and hemodialysis Pancytopenia History of GI bleeding Right pleural effusion s/p Right AV fistula thrombectomy central angioplasty and peripheral venous angioplasty by Vascular surgeon s/p thoracentesis resulting in pneumothorax DVT of left subclavian vein Cardiac suggestion for management: Manage in telemetry Follow-up electrolytes and kidney function tests and correct abnormalities On Amiodarone and Mexiletine Optimized medical therapy; Guideline directed medical therapy for systolic heart failure Consider removal of central line from left neck Anticoagulation as per primary team Pulmonary follow up is advised. Management of right upper ext DVT as per primary team and vascular Further evaluation and management depends on the above and clinical course A total of 55 minutes was spent reviewing the patient record, examining the patient, making a diagnostic and therapeutic plan, discussing this plan with medical personnel, following up on diagnostic studies and following the patient for clinical stability excluding any and all procedures. At least 50% of this time was spent in direct, [id number]-[id number] contact. Thank you for allowing me to participate in this patient's care. Further recommendations will depend on patient's clinical course. Please do not hesitate to contact me if you have any questions or concerns. This medical document was created using electronic medical record system with MModal computerized dictation system. Although this document has been carefully reviewed, there may still be some phonetic and typographical errors. These areas are purely typographical due to the imperfection of the software programs, and do not reflect any compromise in the patient's medical care. Dietary Evaluation Review Comments: 1) Add renal restriction to mechanical soft diet order 2) Initiate Nepro bid 3) Continue to promote PO intake 4) Continue to monitor appetite, labs, and skin integrity Expected Outcomes/Goals: 1) appetite and labs to improve 2) wound to improve 3) f/u in 5 days Plan discussed with: Other (nurse) SUSHMA WALKER MD Jul 16, 2024 07:08
[2024-07-16 14:31] LABS: INR 1.57 (0.9-1.15); Prothrombin Time 15.9 sec (9.3-11.8)
--- NOTE | 2024-07-16 15:16 | DVHPN2 ---
Progress Note Date Seen: Jul 16, 2024 Medical Necessity Reason Pt with a Central, PICC or Fol: Yes The following are medically ne: Central Line Subjective Patient reports: Other (seen on HD) Review of Systems: Deferred Objective vital signs Vital Sign Date Time Temp Pulse Resp B/P (MAP) Pulse Ox O2 Delivery O2 Flow Rate FiO2 07/16/24 12:47 97.5 73 18 113/69 (84) 92 97.5 07/15/24 20:00 Nasal Cannula* 3 32 Total Intake and Output 07/15/24 07/15/24 07/16/24 15:00 23:00 07:00 Intake Total 450 ml 500 ml Balance 450 ml 500 ml medications Current Medications Medications Dose Ordered Sig/Colleen Route Start Time Stop Time Status Last Admin Dose Admin Bacitracin/ Polymyxin B Sulfate 1 applic TID OP 06/27/24 22:00 07/15/24 13:50 1 APPLIC Dextrose 50 ml UD PRN IV 06/28/24 08:00 06/29/24 11:58 50 ML Heparin Sodium/ Dextrose 250 ml @ 13.896 mls/ hr Q18H IV 06/28/24 08:00 UNV Epoetin Eligio-epbx 10,000 unit MWF@2100 SC 06/29/24 21:00 07/16/24 00:09 10,000 UNIT Artificial Tears 2 drop Q6HP PRN EACHEYE 06/29/24 11:30 Amiodarone HCl 200 mg BID PO 06/30/24 22:00 07/16/24 10:39 200 MG Mexiletine HCl 150 mg Q8HR PO 06/30/24 22:00 07/15/24 13:49 150 MG Acetaminophen 650 mg Q4HP PRN PO 07/03/24 18:00 Morphine Sulfate 1 mg Q4HP PRN IV 07/05/24 15:45 07/15/24 03:38 1 MG Pantoprazole Sodium 40 mg DAILY@0600 PO 07/07/24 06:00 07/16/24 06:30 40 MG Ondansetron HCl 4 mg Q6HPRN PRN IV 07/06/24 12:45 07/14/24 10:56 4 MG Albumin Human 100 ml @ 100 mls/hr SHADY PRN IV 07/06/24 19:30 Docusate Sodium 100 mg BIDPRN PRN PO 07/14/24 11:00 Prednisone 20 mg DAILY PO 07/15/24 10:00 07/16/24 10:39 20 MG Apixaban 5 mg BID PO 07/16/24 22:00 Examination: GENERAL:Normal, MSK:Abnormal, NEURO:Normal laboratory and microbiology Laboratory Tests 07/16/24 06:18 Test 07/16/24 06:18 Range/Units Serum Glucose 110 H 74-106 mg/dL Microbiology Date/Time Source Procedure Growth Status 07/09/24 14:18 Pleural Fluid Gram Stain - Final Complete 07/09/24 14:18 Pleural Fluid Body Fluid Culture - Final Complete 06/28/24 11:44 Nose MRSA Screen - Final Complete 06/28/24 08:05 Sputum Gram Stain - Final Complete 06/28/24 08:05 Sputum Respiratory Culture - Final Complete 06/28/24 07:55 Blood Blood Culture - Final Staphylococcus epidermidis Complete Problem List/Assessment/Plan Problem List/Assessment/Plan ESRD s/p cardiac arrest Pleural effusions s/p thoracentesis 1.5L removed CHF exacerbation Hx of Afib Hx of [place] HTN anemia due to CKD hyponatremia thrombosed Right AVF s/p surgical revision recs Hemodialysis today AVFnot working ,, +blood clots per rn ------need tunneled cath outpt AVF vasc sx eval We will follow closely Plan discussed with: Patient, Other My Orders My Orders Orders - ADITYA DUNCAN MD Procedure Category Date Status Time Hemodialysis Orders ORDERS 07/16/24 Transmitted 11:25 Dietary Evaluation Review Comments: 1) Add renal restriction to mechanical soft diet order 2) Initiate Nepro bid 3) Continue to promote PO intake 4) Continue to monitor appetite, labs, and skin integrity Expected Outcomes/Goals: 1) appetite and labs to improve 2) wound to improve 3) f/u in 5 days ADITYA DUNCAN MD Jul 16, 2024 15:15
--- NOTE | 2024-07-16 18:42 | DVHPNRES ---
Progress Note Date Seen: Jul 16, 2024 Resident Creating Document: YVONNE DOMINGUEZ Medical Necessity Reason Pt with a Central, PICC or Fol: Yes The following are medically ne: Central Line Medical Necessity Reason Rajesh catheter for hemodialysis Subjective Review of Systems Patient examined at bedside, alert and oriented x4 currently on NC 3L , he reports chest pain this morning and shortness of breath , increase work of breathing and weakness, troponins levels showed mild elevation , ekg and abg did not showed marked changes. We will continue same management, pending hemodialysis for tomorrow. AV fistula still not patent, Hemodialysis was done through the [facility] Rajesh catheter. Patient will need a tunneled catheter for HD, Dr. Bennett is agree with the plan , he will perform the procedure tomorrow. Apixaban decreased to 5 BID daily Platelets trending down, will monitor closely. Patient reports: No new complaints, Feels better Objective vital signs Vital Sign Date Time Temp Pulse Resp B/P (MAP) Pulse Ox O2 Delivery O2 Flow Rate FiO2 07/16/24 16:48 98.7 70 18 139/65 (89) 97 98.7 07/15/24 20:00 Nasal Cannula* 3 32 Total Intake and Output 07/15/24 07/15/24 07/16/24 15:00 23:00 07:00 Intake Total 450 ml 500 ml Balance 450 ml 500 ml medications Current Medications Medications Dose Ordered Sig/Colleen Route Start Time Stop Time Status Last Admin Dose Admin Bacitracin/ Polymyxin B Sulfate 1 applic TID OP 06/27/24 22:00 07/16/24 14:00 1 APPLIC Dextrose 50 ml UD PRN IV 06/28/24 08:00 06/29/24 11:58 50 ML Heparin Sodium/ Dextrose 250 ml @ 13.896 mls/ hr Q18H IV 06/28/24 08:00 UNV Epoetin Eligio-epbx 10,000 unit MWF@2100 SC 06/29/24 21:00 07/16/24 00:09 10,000 UNIT Artificial Tears 2 drop Q6HP PRN EACHEYE 06/29/24 11:30 Amiodarone HCl 200 mg BID PO 06/30/24 22:00 07/16/24 10:39 200 MG Mexiletine HCl 150 mg Q8HR PO 06/30/24 22:00 07/16/24 14:00 150 MG Acetaminophen 650 mg Q4HP PRN PO 07/03/24 18:00 Morphine Sulfate 1 mg Q4HP PRN IV 07/05/24 15:45 07/15/24 03:38 1 MG Pantoprazole Sodium 40 mg DAILY@0600 PO 07/07/24 06:00 07/16/24 06:30 40 MG Ondansetron HCl 4 mg Q6HPRN PRN IV 07/06/24 12:45 07/14/24 10:56 4 MG Albumin Human 100 ml @ 100 mls/hr SHADY PRN IV 07/06/24 19:30 Docusate Sodium 100 mg BIDPRN PRN PO 07/14/24 11:00 Prednisone 20 mg DAILY PO 07/15/24 10:00 07/16/24 10:39 20 MG Apixaban 5 mg BID PO 07/16/24 22:00 Examination General Appearance: Alert, Oriented X3, Cooperative, No acute distress Respiratory: Clear to auscultation, Normal air movement Cardiovascular: Paced rhythm, regular , Normal S1, Normal S2 Abdominal: Normal bowel sounds Extremities: No cyanosis, No edema, Normal pulses, No tenderness/swelling Skin: No rashes, excoriations in the lower extremities, [facility] rajesh catheter Neuro: Normal speech, Strength at 4/5 X4 ext, Normal tone, Sensation intact, Cranial nerves 3-12 NL, Reflexes 2+ Psych/Mental Status: Mental status NL, Mood NL laboratory and microbiology Laboratory Tests 07/16/24 06:18 Test 07/16/24 06:18 Range/Units Serum Glucose 110 H 74-106 mg/dL Microbiology Date/Time Source Procedure Growth Status 07/09/24 14:18 Pleural Fluid Gram Stain - Final Complete 07/09/24 14:18 Pleural Fluid Body Fluid Culture - Final Complete 06/28/24 11:44 Nose MRSA Screen - Final Complete 06/28/24 08:05 Sputum Gram Stain - Final Complete 06/28/24 08:05 Sputum Respiratory Culture - Final Complete 06/28/24 07:55 Blood Blood Culture - Final Staphylococcus epidermidis Complete Labs and/or images reviewed: Labs reviewed by me, Image(s) reviewed by me Problem List/Assessment/Plan Problem List/Assessment/Plan Neurology: #Acute encephalopathy due s/p cardiac arrest due to VTach/VFib #Patient extubated on 07/05 -Admitted to telemetry -Currently on NC 2L -Physical therapy Cardiovascular #Acute on chronic systolic heart failure NYHA III-IV #Cardiac arrest due to VT/VF #History of nonischemic cardiomyopathy #History of myocardial infarction #Severe pulmonary hypertension RVSP 75 mmHg #Atrial fibrillation #NSTEMI type 2 #HFrEF 20% SP AICD/MIS MANAGER D/pace #CAD status post 3 stents -amiodarone po -mexiletine po Respiratory: #Acute hypoxemic respiratory failure due to HFrEF 20% exacerbation #Acute hypoxic hypercapnic respiratory failure #Respiratory acidosis #Bilateral infiltrates on chest x-ray possible aspiration pneumonia / pulmonary edema #Right pleural effusion S/P thoracentesis #Pulmonary embolism ruled out - NC 2L - prednisone 30 mg po Gastrointestinal #left hepatic cyst #Transaminitis , resolved #Constipation Renal/ #ESRD on hemodialysis #Acute kidney injury on ESRD #Hyperkalemia #Hypoalbuminemia #hyponatremia - Rajesh catheter for hemodialysis - AV fistula not patent for Hemodialysis. - HD today through Rajesh catheter. - Nephrology on board - Tunneled dialysis catheter placement for tomorrow by . Infectious disease: #Shock likely septic due to suspected UTI/aspiration pneumonia #Leukocytosis #Bilateral infiltrates likely due to possible aspiration pneumonia -resolved -daily CBC and CMP Endocrine # Subclinical hypothyroidism Hematology: # Normocytic normochromic anemia status post 2 packed red blood cell transfusion in the setting of ESRD #Thrombocytopenia #av fistula repair #left subclavian thrombosis - Monitor CBC daily - H&H - apixaban 5mg bid Case discussed with Code status: full code advance care planning time discussed with patient and family 33 mins Plan discussed with: Patient, Other (sister) Dietary Evaluation Review Comments: 1) Add renal restriction to mechanical soft diet order 2) Initiate Nepro bid 3) Continue to promote PO intake 4) Continue to monitor appetite, labs, and skin integrity Expected Outcomes/Goals: 1) appetite and labs to improve 2) wound to improve 3) f/u in 5 days Date of Service: Jul 16, 2024 Billing Provider: BELTRAN KLEIN MD Common Visit Codes: 53038-[id number] INP/OBS CARE(HIGH) Secondary Visit Codes: 21573-[id number] CARE PLAN 30 MINUTES YVONNE DOMINGUEZ RESIDENT Jul 16, 2024 18:42 BELTRAN KLEIN MD Jul 18, 2024 19:40
[2024-07-16] MEDS: POLYETHYLENE GLYCOL 17 GM PWDR PO ONE (18:45)
[2024-07-16] MEDS: APIXABAN 5 MG TAB PO SCH (22:23)
[2024-07-17] VITALS (13 sets, daily range): BP systolic 115–144; BP diastolic 65–77; PULSE 61–77; RESP 13–20; TEMP 97.3–98.2; O2SAT 3–100
--- NOTE | 2024-07-17 06:54 | DVHPN2 ---
Progress Note - Dictate Date Seen: Jul 17, 2024 Medical Necessity Reason Pt with a Central, PICC or Fol: Yes The following are medically ne: Central Line vital signs Vital Sign Date Time Temp Pulse Resp B/P (MAP) Pulse Ox O2 Delivery O2 Flow Rate FiO2 07/17/24 05:00 98.2 61 17 136/77 (96) 95 98.2 07/16/24 20:00 Nasal Cannula* 3 32 Total Intake and Output 07/16/24 07/16/24 07/17/24 15:00 23:00 07:00 Intake Total 800 ml 250 ml Balance 800 ml 250 ml medications Current Medications Medications Dose Ordered Sig/Colleen Route Start Time Stop Time Status Last Admin Dose Admin Bacitracin/ Polymyxin B Sulfate 1 applic TID OP 06/27/24 22:00 07/17/24 06:33 1 APPLIC Dextrose 50 ml UD PRN IV 06/28/24 08:00 06/29/24 11:58 50 ML Heparin Sodium/ Dextrose 250 ml @ 13.896 mls/ hr Q18H IV 06/28/24 08:00 UNV Epoetin Eligio-epbx 10,000 unit MWF@2100 SC 06/29/24 21:00 07/16/24 00:09 10,000 UNIT Artificial Tears 2 drop Q6HP PRN EACHEYE 06/29/24 11:30 Amiodarone HCl 200 mg BID PO 06/30/24 22:00 07/16/24 22:23 200 MG Mexiletine HCl 150 mg Q8HR PO 06/30/24 22:00 07/16/24 14:00 150 MG Acetaminophen 650 mg Q4HP PRN PO 07/03/24 18:00 Morphine Sulfate 1 mg Q4HP PRN IV 07/05/24 15:45 07/15/24 03:38 1 MG Pantoprazole Sodium 40 mg DAILY@0600 PO 07/07/24 06:00 07/16/24 06:30 40 MG Ondansetron HCl 4 mg Q6HPRN PRN IV 07/06/24 12:45 07/14/24 10:56 4 MG Albumin Human 100 ml @ 100 mls/hr SHADY PRN IV 07/06/24 19:30 Docusate Sodium 100 mg BIDPRN PRN PO 07/14/24 11:00 Prednisone 20 mg DAILY PO 07/15/24 10:00 07/16/24 10:39 20 MG Apixaban 5 mg BID PO 07/16/24 22:00 07/16/24 22:23 5 MG laboratory and microbiology Laboratory Tests 07/16/24 06:18 Test 07/16/24 06:18 Range/Units Serum Glucose 110 H 74-106 mg/dL Assessment/Plan Patient is a 64-year-old gentleman who presented on June 27, 2024 for around a week of flu symptoms and upper left swellings. At the time of evaluation, the patient is being managed in unit. He is intubated and not source of history. Information was obtained by reviewing the chart. Reportedly, the patient had missed hemodialysis quite a few times before presentation as he felt sick. It is reported that he did have flu-like symptoms, eye congestion and diarrhea prior to presentation. While being managed on the floor, patient was found to be nonresponsive and was coded. There is no detailed information about the time of the code. There is question about PEA. The patient was intubated and was brought to the unit. Patient was seen by on-call sample puller at that point. At this point, we are called for Cardiology as the patient is known to us from before. There is no report of actual chest pain. It is of note that serial troponin has been negative. There is no available telemetry at the time of the episode. Is also of note that the patient does have BiV-ICD from before. Presently, the patient is admitted with septic shock. Patient was in the hospital around a month ago. And was managed for acute on chronic systolic heart failure, pancytopenia and pleural effusions (for which had pleurocentesis). He should have been on Eliquis as outpatient. Extubated. There are signs of conjunctivitis on bilateral eyes. No JVD. Mucosa is pink and wet. No carotid bruit. Lungs: Scattered rhonchi in the lungs is heard. Cardiac: Regular, systolic murmur 3/6 in the apex is heard. The site for ICD implantation looks clean with no erythema/ecchymosis/tenderness. Abdomen is soft. Bowel sound is positive. Extremities reveal 2+ edema bilaterally. AV fistula in the right upper extremity with thrill was observed. 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 Echocardiogram of April 08, 2024 had reported four-chamber dilatation, ejection fraction of 20%, oxfi-fu-cjknpoon MR/TR and right ventricular systolic pressure of 75 mm Hg Echocardiogram of May 19, 2024 had reported four-chamber dilatation, ejection fraction of 35%, D shaped septum, pulmonary hypertension, mobile interatrial septum, [id number]-sw-[id number] aortic insufficiency, mild mitral regurgitation, moderate TR and right ventricular systolic pressure of 80 mm Hg Troponin (high sensitive) 40 - 41 - 40 BNP: 2509.04 D-Dimer: 4.72 Digoxin: <0.14 Chest x-ray reported: FINDINGS: LUNGS AND PLEURAL SPACES: See below. HEART: Cardiomegaly with moderate congestion. Left cardiac. MEDIASTINUM: Unremarkable. Normal mediastinal contour. BONES/JOINTS: Unremarkable. No acute fracture. OTHER FINDINGS: . . . .. IMPRESSION: Cardiomegaly with moderate congestion. Repeat chest x-ray reported: Medical devices: The ETT ends above the level of elizabeth at the level of clavicular heads. The enteric tube extends to the stomach. Multi lead left upper chest wall AICD with leads extending to the cardiac chambers. Cardiomediastinal: The heart is moderately enlarged. Pulmonary vasculature is prominent. Atherosclerotic calcification of the aortic arch noted. Lungs: There is interval enlargement of now moderate-sized right pleural effusion and interval development of patchy consolidation in the right middle and left upper lung zone. Small opacities are noted in the left lung base. Diffuse bilateral interstitial opacities are noted. No pneumothorax. Bones/soft tissues: No acute abnormality is noted. Right subclavian vascular stents noted. IMPRESSION: 1. Worsening CHF with moderate right pleural effusion , interval development of extensive bilateral interstitial opacities and large patchy multifocal bilateral consolidations that may represent edema or pneumonia. Recommend clinical and biochemical correlation. Repeat chest xry reported: IMPRESSION: 1. Right basilar atelectasis or pneumonia. 2. Cardiomegaly with mild congestion. Repeat chest xry reported: IMPRESSION: 1. Right basilar atelectasis or pneumonia. Small bilateral pleural effusions. 2. Cardiomegaly with mild congestion. 3. Endotracheal tube now projects 6 cm above level the elizabeth in appropriate position. Repeat chest xry reported: IMPRESSION: 1. Cardiomegaly with pulmonary congestion and edema. Superimposed pneumonia cannot be excluded. 2. Right pleural effusion. Repeat chest xry reported: FINDINGS: VERTEBRAE: Unremarkable. No acute fracture. Normal alignment. No instability. DISC SPACES: No acute findings. No significant narrowing. SOFT TISSUES: Unremarkable. HEART: Left cardiac. Mild congestive heart failure. TUBES, LINES AND DEVICES: Enteric tube tip in the stomach. The endotracheal tube (ETT) is in satisfactory position. OTHER FINDINGS: . ... IMPRESSION: Mild congestive heart failure. Repeat chest xry revealed: IMPRESSION: Cardiomegaly with moderate congestion. Repeat chest xry revealed: IMPRESSION: 1. Mechanical ventilation with tubes and lines as above. 2. Right basilar infiltrate and effusion, improved. 3. Cardiomegaly. Repeat chest xry revealed: IMPRESSION: 1. Biventricular pacemaker in place 2. Bibasilar infiltrates right pleural effusion. Right pleural effusion appears to have slightly increased. This may be secondary to patient positioning. 3. Right subclavian stent in place unchanged from 07/04/2024.. Repeat chest xry revealed: Lines and Tubes: Left chest wall AICD. Left central venous catheter in satisfactory position. Lungs: Patchy bilateral airspace opacities. Pleura: Small bilateral pleural effusions, [id number]-[id number]-[id number]-left. No pneumothorax. Cardiomediastinal contours: Unremarkable Bones: Unremarkable IMPRESSION: Unchanged fluid overload. Repeat chest xry revealed: Lines and Tubes: Left chest wall AICD. Left central venous catheter in satisfactory position. Lungs: Mild congestion Pleura: Small right pleural effusion. No pneumothorax. Cardiomediastinal contours: Cardiomegaly Bones: Unremarkable IMPRESSION: Small right pleural effusion. Repeat chest xry revealed: IMPRESSION: Cardiomegaly with small bilateral pleural effusions and bibasilar opacities. Repeat chest xry revealed: IMPRESSION: Small right pneumothorax. Cardiomegaly with left lower lung consolidative opacity. Interval decrease in right pleural effusion compared to prior exam. Critical Result: Pneumothorax Repeat chest xry revealed: IMPRESSION: Interval resolution of previously seen right pneumothorax. Pulmonary edema. Small left pleural effusion. Chest ultrasound revealed: Findings/Impression: Moderate to large right pleural effusion. No left pleural effusion. Thoracentesis (07/09/2024): IMPRESSION: Ultrasound guided RIGHT thoracentesis. Venous duplex of left upper ext (07/09/2024): Impression: Thrombus in the left subclavian vein If clinical concern/symptoms persist or worsen, short-interval follow-up study is suggested. Upper ext (right) arterial duplex reported: IMPRESSION: 1. The right upper extremity brachial-cephalic AVF is thrombosed. 2. The right axillary stent is thrombosed. 3. The arteries of the right upper extremity including subclavian, axillary, brachial, radial and ulnar arteries are patent. Repeat Upper ext (right) arterial duplex reported: IMPRESSION: Thrombus is seen at the mid and distal aspect of right upper extremity fistula. Thrombus is seen in the cephalic vein. Vascular surgery consultation recommended. CTA of lungs revealed: IMPRESSION: 1. No pulmonary embolism. 2. Large right and small left pleural effusion with associated bilateral atelectasis and consolidation. Patchy ground-glass opacities could represent pulmonary edema or an infectious / inflammatory process. Mediastinal lymphadenopathy similar to prior. Clinical correlation and continued follow-up is recommended. Overall appearance is worse compared to prior exam. CT of head reported: 1. No acute intracranial pathology. Cortical atrophy greater on the left. EKG revealed paced rhythm Telemetry revealed paced rhythm (it is of note that telemetry rhythm at the time of the code is not available to revealed) Echocardiogram reported: limited study. lvef 20% by visual estimate. postop septum. septum flattening noted. RV enlarged with dysfunction. biatrial enlargement. valves not assessed Med[employer] ICD interrogation revealed: Remaining longevity of battery: 3.8 years; DDDR: 60/130; Pacing impedance: A 380 /RV 323/LV 304 Ohms; Shock impedance: RV 29 Ohms; Capture threshold: Atrial 0.5/RV 0.875 volts at 0.4 milliseconds; Program sensitivity: Atrial 0.3/RV 0.3 mV; Episodes: VT/VF: 1 resulting in shock; Changes performed: VTE detection interval was changed from 270 millisecond to 320 millisecond/VT detection interval was changed from 330 millisecond to 400 milliseconds Cardiac cath performed: Diagnosis: Nonobstructive coronary artery disease; Patent stents in mid LAD/proximal RCA/distal RCA; Negative FFR of 50% lesion in mid LAD; LVEDP of 10 mm Hg; Cardiac suggestions for management: Optimized medical therapy; Guideline directed medical therapy for systolic heart failure; Lifestyle and risk factor modification Patient is a 64-year-old gentleman who presented with flu-like symptoms, but later coded in the floor. No tele rhythm of the time of the code was available to review (at first). Reportedly there was PA. Stable serial high sensitive troponin is against acute coronary syndrome. Patient does have baseline history of heart failure and pulmonary hypertension. He also has Bi V ICD (interrogation revealed episode of v-fib/v-tach resulting in Defibrillation). Does have baseline history of noncompliance to medication/hemodialysis. Does have baseline history of pancytopenia and is found to have significant anemia. With respiratory failure and on vent support. Case discussed with Electrophysiology (Dr Tamayo). Acute arrest Rule out PA Questionable encephalopathy, anoxic versus toxic? Recent URI Septic shock s/p Defibrillation secondary to V-fib/Vtach Encephalopathy Baseline pulmonary hypertension Baseline systolic heart failure Status post Bi V ICD End-stage renal disease, Noncompliant with medication, followups and hemodialysis Pancytopenia History of GI bleeding Right pleural effusion s/p Right AV fistula thrombectomy central angioplasty and peripheral venous angioplasty by Vascular surgeon s/p thoracentesis resulting in pneumothorax DVT of left subclavian vein Cardiac suggestion for management: Manage in telemetry Follow-up electrolytes and kidney function tests and correct abnormalities On Amiodarone and Mexiletine Optimized medical therapy; Guideline directed medical therapy for systolic heart failure Consider removal of central line from left neck Anticoagulation as per primary team Pulmonary follow up is advised. Management of right upper ext DVT as per primary team and vascular Further evaluation and management depends on the above and clinical course A total of 55 minutes was spent reviewing the patient record, examining the patient, making a diagnostic and therapeutic plan, discussing this plan with medical personnel, following up on diagnostic studies and following the patient for clinical stability excluding any and all procedures. At least 50% of this time was spent in direct, [id number] contact. Thank you for allowing me to participate in this patient's care. Further recommendations will depend on patient's clinical course. Please do not hesitate to contact me if you have any questions or concerns. This medical document was created using electronic medical record system with [employer] dictation system. Although this document has been carefully reviewed, there may still be some phonetic and typographical errors. These areas are purely typographical due to the imperfection of the software programs, and do not reflect any compromise in the patient's medical care. Dietary Evaluation Review Comments: 1) Add renal restriction to mechanical soft diet order 2) Initiate Nepro bid 3) Continue to promote PO intake 4) Continue to monitor appetite, labs, and skin integrity Expected Outcomes/Goals: 1) appetite and labs to improve 2) wound to improve 3) f/u in 5 days Plan discussed with: Other (nurse) SUSHMA WALKER MD Jul 17, 2024 06:54
[2024-07-17] MEDS: fentaNYL CITRATE 100 MCG/2 ML VL ONE (07:58)
[2024-07-17] MEDS: HEPARIN SODIUM (PORCINE) 5000 UNITS/ML 1ML VIAL ONE (07:58)
[2024-07-17] MEDS: MIDAZOLAM HCL 2MG/2ML 2ml VIAL (1mg/ml) ONE (07:59)
[2024-07-17] MEDS: LIDOCAINE 2%HCL (LOCAL ANESTH.) INJ 20ML MDV ONE (07:59)
--- NOTE | 2024-07-17 12:22 | DVH ---
XY Insertion of Venous Cath, HISTORY: HD CATH needing hemodialysis. PROCEDURE: Informed consent was obtained. The patient was placed supine on the interventional table. 1 gram of Ancef was given. A limited localization ultrasound of the right and left neck base was obta ined. The right and left upper chest and neck base were prepped with chlorhexidine which was allowed to dry and draped in the usual sterile fashion. Time out was performed. With real-time ultrasound gu idance, the right internal jugular vein was accessed with a micropuncture kit, and an image documenti ng patency sent to PACS. Contrast was injected through the microsheath. The right IJ was occluded. Ne xt, using ultrasound guidance, the right external jugular vein was accessed. Contrast injected shows that the EJ is also occluded. The left IJ was then accessed. However there were multiple pacer leads in the left brachiocephalic vein and the vessel did not have enough space to accomodate a 14 Fr dialy sis catheter. Using the ultrasound, the right axillary vein was accessed and an amplatz wire was plac ed into the IVC. A subcutaneous tunneled tract was created from the right upper chest to the venotomy site. A 14.5 Uzbek Purcell Path, 27 cm long hemodialysis catheter was advanced through the tunneled t ract. Fluoroscopy was used to advance a guidewire through the internal jugular vein into the inferior vena cava. Following serial dilatation, a 15 Uzbek peel-away sheath was introduced, though which was adva nced the catheter into the right atrium. The catheter tip position was confirmed with fluoroscopy. Th ere was satisfactory flow in both lumens. The catheter lumens were flushed with saline and heparin wa s left indwelling in the catheter. A post-procedure image of the chest was obtained. The neck incisio n site was closed and dressed sterilely. The catheter was sutured at the skin surface and exit site a lso dressed sterilely. No immediate complication was identified. DAP 533 FLUOROSCOPY TIME: 11.6 minutes. SEDATION: Dr. Mago Bennett was personally responsible for the administration of moderate sedation during the procedure performed, including the use of an independent trained observer who had no other duties during the procedure. The drugs utilized were IV fentanyl and versed (see nursing log for details). The total time of supervision by the attending physician was approximately 75 minutes. FINDINGS: Complex hemodialysis catheter placement requiring additional time and effort to complete. R ight subclavian, brachiocephalic vein stent occludes the right IJ and right EJ (no access). At least 4-5 pacer wires occludes the left brachiocephalic vein (no access). Access site at the right axillary vein, just before the axillary vein stent. Post procedure image demonstrates smooth course of the he modialysis catheter with the tip in the right atrium with the HD catheter through the right axillary, subclavian, brachiocephalic vein stent. IMPRESSION: Complex hemodialysis catheter placement requiring additional time and effort to complete. Right subcl kia, brachiocephalic vein stent occludes the right IJ and right EJ (no access). At least 4-5 pacer wires occludes the left brachiocephalic vein (no access). Access site at the right axillary vein, jus t before the axillary vein stent. Post procedure image demonstrates smooth course of the hemodialysis catheter with the tip in the right atrium with the HD catheter through the right axillary, subclavia n, brachiocephalic vein stent. Placement of 14.5 Uzbek Purcell Path, 27 cm long hemodialysis catheter through right axillary vein.
[2024-07-17 12:24] LABS: Hematocrit 28.6 % (41.0-53.0); Hemoglobin 9.7 g/dL (13.5-17.5); Mean Corpuscular Hemoglobin 33.4 pg (28.0-32.0); Mean Corpuscular Hgb Conc. 34.1 g/dL (32.0-36.0); Platelet Count (auto) 70 10^3/uL (140-450); Red Blood Cells 2.92 10^6/uL (4.5-5.90); Red Cell Distribution Width 21.8 % (11.8-14.3); White Blood Cell 5.3 10^3/uL (4.4-10.8)
[2024-07-17 12:26] LABS: Potassium 3.5 mmol/L (3.5-5.1)
[2024-07-17 12:27] LABS: Anion Gap 6 (5-15); Calcium 8.8 mg/dL (8.7-10.4); Carbon Dioxide 31 mmol/L (20-31)
[2024-07-17 12:30] LABS: Chloride 95 mmol/L (98-107); Sodium 132 mmol/L (136-145)
[2024-07-17 12:32] LABS: BUN/Creatinine Ratio 10.4 (10.0-20.0)
[2024-07-17 12:36] LABS: Blood Urea Nitrogen 64 mg/dL (9-23); Glucose 115 mg/dL (74-106)
--- NOTE | 2024-07-17 12:39 | DVHPN2 ---
Progress Note Date Seen: Jul 17, 2024 Medical Necessity Reason Pt with a Central, PICC or Fol: Yes The following are medically ne: Central Line Subjective Patient reports: No new complaints Review of Systems: Deferred Objective vital signs Vital Sign Date Time Temp Pulse Resp B/P (MAP) Pulse Ox O2 Delivery O2 Flow Rate FiO2 07/17/24 11:45 97.3 77 18 132/76 (94) 97.3 07/17/24 10:42 99 07/17/24 08:00 Nasal Cannula* 3 32 Total Intake and Output 07/16/24 07/16/24 07/17/24 15:00 23:00 07:00 Intake Total 800 ml 250 ml Balance 800 ml 250 ml medications Current Medications Medications Dose Ordered Sig/Colleen Route Start Time Stop Time Status Last Admin Dose Admin Bacitracin/ Polymyxin B Sulfate 1 applic TID OP 06/27/24 22:00 07/17/24 06:33 1 APPLIC Dextrose 50 ml UD PRN IV 06/28/24 08:00 06/29/24 11:58 50 ML Heparin Sodium/ Dextrose 250 ml @ 13.896 mls/ hr Q18H IV 06/28/24 08:00 UNV Epoetin Eligio-epbx 10,000 unit MWF@2100 SC 06/29/24 21:00 07/16/24 00:09 10,000 UNIT Artificial Tears 2 drop Q6HP PRN EACHEYE 06/29/24 11:30 Amiodarone HCl 200 mg BID PO 06/30/24 22:00 07/16/24 22:23 200 MG Mexiletine HCl 150 mg Q8HR PO 06/30/24 22:00 07/16/24 14:00 150 MG Acetaminophen 650 mg Q4HP PRN PO 07/03/24 18:00 Morphine Sulfate 1 mg Q4HP PRN IV 07/05/24 15:45 07/15/24 03:38 1 MG Pantoprazole Sodium 40 mg DAILY@0600 PO 07/07/24 06:00 07/16/24 06:30 40 MG Ondansetron HCl 4 mg Q6HPRN PRN IV 07/06/24 12:45 07/14/24 10:56 4 MG Albumin Human 100 ml @ 100 mls/hr SHADY PRN IV 07/06/24 19:30 Docusate Sodium 100 mg BIDPRN PRN PO 07/14/24 11:00 Prednisone 20 mg DAILY PO 07/15/24 10:00 07/16/24 10:39 20 MG Apixaban 5 mg BID PO 07/16/24 22:00 07/16/24 22:23 5 MG Examination: GENERAL:Normal, LUNGS:Abnormal, MSK:Abnormal, NEURO:Normal laboratory and microbiology Laboratory Tests 07/17/24 12:00 Test 07/17/24 12:00 Range/Units Serum Glucose 115 H 74-106 mg/dL Microbiology Date/Time Source Procedure Growth Status 07/09/24 14:18 Pleural Fluid Gram Stain - Final Complete 07/09/24 14:18 Pleural Fluid Body Fluid Culture - Final Complete 06/28/24 11:44 Nose MRSA Screen - Final Complete 06/28/24 08:05 Sputum Gram Stain - Final Complete 06/28/24 08:05 Sputum Respiratory Culture - Final Complete 06/28/24 07:55 Blood Blood Culture - Final Staphylococcus epidermidis Complete Problem List/Assessment/Plan Problem List/Assessment/Plan ESRD on HD s/p cardiac arrest Pleural effusions s/p thoracentesis 1.5L removed CHF exacerbation Hx of Afib Hx of [place] HTN anemia due to CKD hyponatremia thrombosed Right AVF s/p surgical revision s/p declot ---still not working recs Hemodialysis tomorrow--s/p tunneled cath placement,,remove nilson catheter AVF not working ,, +blood clots,,high pressures per rn ------needed tunneled cath outpt AVF vasc sx eval We will follow closely Plan discussed with: Patient My Orders My Orders Orders - ADITYA DUNCAN MD Procedure Category Date Status Time Hemodialysis Orders ORDERS 07/16/24 Transmitted 11:25 Dietary Evaluation Review Comments: 1) Add renal restriction to mechanical soft diet order 2) Initiate Nepro bid 3) Continue to promote PO intake 4) Continue to monitor appetite, labs, and skin integrity Expected Outcomes/Goals: 1) appetite and labs to improve 2) wound to improve 3) f/u in 5 days ADITYA DUNCAN MD Jul 17, 2024 12:39
[2024-07-17 12:41] LABS: Basophils % (manual) 0 (0.0-2.0); Blast Cells 0; Metamyelocytes % 0; Myelocytes % 0; Promyelocytes % 0; Reactive Lymphocytes 0
[2024-07-17 13:24] LABS: Band Neutrophils % (manual) 4; Eosinophils % (manual) 1 (0-7); Lymphocytes % (manual) 3 (10.0-50.0); Monocytes % (manual) 11 (0-12)
[2024-07-17 13:25] LABS: Anisocytosis Moderate; Platelet Estimate Decreased
--- NOTE | 2024-07-17 17:59 | DVHPNRES ---
Progress Note Date Seen: Jul 17, 2024 Resident Creating Document: YVONNE DOMINGUEZ RESIDENT Medical Necessity Reason Pt with a Central, PICC or Fol: Yes The following are medically ne: Central Line Subjective Review of Systems Patient examined at bedside, alert and oriented x4 currently on NC 1L , patient denied any acute event overnight or any symptoms during the day, patient was examined at bedside in the morning and after the tunnel catheter placement in the afternoon, he was able to eat without issues. Patient will need hemodialysis tomorrow, he will need a chair time for hemodialysis, Today in the morning the patient got the tunnel dialysis catheter, that was re- evaluated after a bleeding episode during the afternoon, for which the apixaban will be reduced until 2.5 b.i.d. Left internal jugular Rajesh catheter will be removed tonight. Patient will receive hemodialysis tomorrow after which he will be able to be discharge. Next HD will be this saturday ( he get HD on saturday/ and saturday) Dr. Vergara recommend to monitor the platelets closely but continue with the amiodarone and mexiletine as ordered. Any medication will be discontinue at this time, but we will continue monitoring PT levels everyday. Patient reports: No new complaints Review of Systems: HEENT:Normal, CVS:Normal, RESPIRATORY:Normal, GI:Normal, :Abnormal, MSK:Normal, NEURO:Normal Objective vital signs Vital Sign Date Time Temp Pulse Resp B/P (MAP) Pulse Ox O2 Delivery O2 Flow Rate FiO2 07/17/24 16:54 97.4 76 20 130/65 (86) 98 97.4 07/17/24 08:00 Nasal Cannula* 3 32 Total Intake and Output 07/16/24 07/16/24 07/17/24 15:00 23:00 07:00 Intake Total 800 ml 250 ml Balance 800 ml 250 ml medications Current Medications Medications Dose Ordered Sig/Colleen Route Start Time Stop Time Status Last Admin Dose Admin Bacitracin/ Polymyxin B Sulfate 1 applic TID OP 06/27/24 22:00 07/17/24 14:00 1 APPLIC Dextrose 50 ml UD PRN IV 06/28/24 08:00 06/29/24 11:58 50 ML Heparin Sodium/ Dextrose 250 ml @ 13.896 mls/ hr Q18H IV 06/28/24 08:00 UNV Epoetin Eligio-epbx 10,000 unit MWF@2100 SC 06/29/24 21:00 07/16/24 00:09 10,000 UNIT Artificial Tears 2 drop Q6HP PRN EACHEYE 06/29/24 11:30 Amiodarone HCl 200 mg BID PO 06/30/24 22:00 07/16/24 22:23 200 MG Mexiletine HCl 150 mg Q8HR PO 06/30/24 22:00 07/17/24 14:00 150 MG Acetaminophen 650 mg Q4HP PRN PO 07/03/24 18:00 Morphine Sulfate 1 mg Q4HP PRN IV 07/05/24 15:45 07/17/24 15:53 1 MG Pantoprazole Sodium 40 mg DAILY@0600 PO 07/07/24 06:00 07/16/24 06:30 40 MG Ondansetron HCl 4 mg Q6HPRN PRN IV 07/06/24 12:45 07/14/24 10:56 4 MG Albumin Human 100 ml @ 100 mls/hr SHADY PRN IV 07/06/24 19:30 Docusate Sodium 100 mg BIDPRN PRN PO 07/14/24 11:00 Prednisone 20 mg DAILY PO 07/15/24 10:00 07/16/24 10:39 20 MG Apixaban 5 mg BID PO 07/16/24 22:00 07/16/24 22:23 5 MG Examination General Appearance: Alert, Oriented X3, Cooperative, No acute distress Respiratory: Clear to auscultation, Normal air movement Cardiovascular: Paced rhythm, regular , Normal S1, Normal S2 Abdominal: Normal bowel sounds Extremities: No cyanosis, No edema, Normal pulses, No tenderness/swelling Skin: No rashes, excoriations in the lower extremities, LIJ rajesh catheter Neuro: Normal speech, Strength at 4/5 X4 ext, Normal tone, Sensation intact, Cranial nerves 3-12 NL, Reflexes 2+ Psych/Mental Status: Mental status NL, Mood NL laboratory and microbiology Laboratory Tests 07/17/24 12:00 Test 07/17/24 12:00 Range/Units Serum Glucose 115 H 74-106 mg/dL Microbiology Date/Time Source Procedure Growth Status 07/09/24 14:18 Pleural Fluid Gram Stain - Final Complete 07/09/24 14:18 Pleural Fluid Body Fluid Culture - Final Complete 06/28/24 11:44 Nose MRSA Screen - Final Complete 06/28/24 08:05 Sputum Gram Stain - Final Complete 06/28/24 08:05 Sputum Respiratory Culture - Final Complete 06/28/24 07:55 Blood Blood Culture - Final Staphylococcus epidermidis Complete Problem List/Assessment/Plan Problem List/Assessment/Plan Neurology: #Acute encephalopathy due s/p cardiac arrest due to VTach/VFib #Patient extubated on 07/05 -Admitted to telemetry -Currently on WI 2L -Physical therapy Cardiovascular #Acute on chronic systolic heart failure NYHA III-IV #Cardiac arrest due to VT/VF #History of nonischemic cardiomyopathy #History of myocardial infarction #Severe pulmonary hypertension RVSP 75 mmHg #Atrial fibrillation #NSTEMI type 2 #HFrEF 20% 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 #CAD status post 3 stents -amiodarone po -mexiletine po Respiratory: #Acute hypoxemic respiratory failure due to HFrEF 20% exacerbation #Acute hypoxic hypercapnic respiratory failure #Respiratory acidosis #Bilateral infiltrates on chest x-ray possible aspiration pneumonia / pulmonary edema #Right pleural effusion S/P thoracentesis #Pulmonary embolism ruled out - WI 1L - prednisone 30 mg po Gastrointestinal #left hepatic cyst #Transaminitis , resolved #Constipation - PEG once - docusate Renal/ #ESRD on hemodialysis #Acute kidney injury on ESRD #Hyperkalemia #Hypoalbuminemia #hyponatremia - Rajesh catheter to be removed tonight - Nephrology on board - Tunneled dialysis catheter on place Infectious disease: #Shock likely septic due to suspected UTI/aspiration pneumonia #Leukocytosis #Bilateral infiltrates likely due to possible aspiration pneumonia -resolved -daily CBC and CMP Endocrine # Subclinical hypothyroidism Hematology: # Normocytic normochromic anemia status post 2 packed red blood cell transfusion in the setting of ESRD #Thrombocytopenia likely medication induced #av fistula repair #left subclavian thrombosis - Monitor CBC daily - H&H - apixaban 2,5 mg bid Case discussed with Code status: full code advance care planning time discussed with patient and sister 33 mins Plan discussed with: Patient, Other (sister) Dietary Evaluation Review Comments: 1) Add renal restriction to mechanical soft diet order 2) Initiate Nepro bid 3) Continue to promote PO intake 4) Continue to monitor appetite, labs, and skin integrity Expected Outcomes/Goals: 1) appetite and labs to improve 2) wound to improve 3) f/u in 5 days YVONNE DOMINGUEZ RESIDENT Jul 17, 2024 17:59
[2024-07-17] MEDS: APIXABAN 2.5 MG TAB PO SCH (23:08)
[2024-07-18] VITALS (10 sets, daily range): BP systolic 122–157; BP diastolic 65–110; PULSE 68–111; RESP 16–19; TEMP 97.6–98.4; O2SAT 3–100
--- NOTE | 2024-07-18 05:49 | DVH ---
CHEST RADIOGRAPH Indication: to see changes in tunneled catherter Technique: Single frontal view of the chest was obtained Comparison: XY CHEST PORTABLE on DOS: 07/15/24, XY CHEST PORTABLE on DOS: 07/09/24, XY CHEST PORTABLE on DOS: 07/09/24 IMPRESSION: The heart is enlarged with multilead left cardiac device. Right dialysis catheter tip is seen in the region of the superior vena cava, superimposing or within the right vascular stent. Possible small l eft pleural effusion. Patchy bibasilar airspace opacities appear similar. No discrete pneumothorax.
[2024-07-18] MEDS: ACETAMINOPHEN 325 MG TAB PO PRN (09:47)
--- NOTE | 2024-07-18 10:22 | DVHPN2 ---
Progress Note Date Seen: Jul 18, 2024 Medical Necessity Reason Pt with a Central, PICC or Fol: Yes The following are medically ne: Central Line Subjective Patient reports: No new complaints Review of Systems: Deferred Objective vital signs Vital Sign Date Time Temp Pulse Resp B/P (MAP) Pulse Ox O2 Delivery O2 Flow Rate FiO2 07/18/24 08:14 97.9 74 17 137/76 (96) 100 97.9 07/17/24 20:00 Nasal Cannula* 3 32 Total Intake and Output 07/17/24 07/17/24 07/18/24 15:00 23:00 07:00 Intake Total 360 ml 300 ml Balance 360 ml 300 ml medications Current Medications Medications Dose Ordered Sig/Colleen Route Start Time Stop Time Status Last Admin Dose Admin Bacitracin/ Polymyxin B Sulfate 1 applic TID OP 06/27/24 22:00 07/17/24 23:10 1 APPLIC Dextrose 50 ml UD PRN IV 06/28/24 08:00 06/29/24 11:58 50 ML Heparin Sodium/ Dextrose 250 ml @ 13.896 mls/ hr Q18H IV 06/28/24 08:00 UNV Epoetin Eligio-epbx 10,000 unit MWF@2100 SC 06/29/24 21:00 07/16/24 00:09 10,000 UNIT Artificial Tears 2 drop Q6HP PRN EACHEYE 06/29/24 11:30 Amiodarone HCl 200 mg BID PO 06/30/24 22:00 07/18/24 09:46 200 MG Mexiletine HCl 150 mg Q8HR PO 06/30/24 22:00 07/18/24 06:21 150 MG Acetaminophen 650 mg Q4HP PRN PO 07/03/24 18:00 07/18/24 09:47 650 MG Morphine Sulfate 1 mg Q4HP PRN IV 07/05/24 15:45 07/18/24 04:04 1 MG Pantoprazole Sodium 40 mg DAILY@0600 PO 07/07/24 06:00 07/18/24 06:21 40 MG Ondansetron HCl 4 mg Q6HPRN PRN IV 07/06/24 12:45 07/18/24 03:59 4 MG Albumin Human 100 ml @ 100 mls/hr SHADY PRN IV 07/06/24 19:30 Docusate Sodium 100 mg BIDPRN PRN PO 07/14/24 11:00 Prednisone 20 mg DAILY PO 07/15/24 10:00 07/18/24 09:46 20 MG Apixaban 2.5 mg BID PO 07/17/24 22:00 07/17/24 23:08 2.5 MG laboratory and microbiology Laboratory Tests 07/17/24 12:00 Test 07/17/24 12:00 Range/Units Serum Glucose 115 H 74-106 mg/dL Microbiology Date/Time Source Procedure Growth Status 07/09/24 14:18 Pleural Fluid Gram Stain - Final Complete 07/09/24 14:18 Pleural Fluid Body Fluid Culture - Final Complete 06/28/24 11:44 Nose MRSA Screen - Final Complete 06/28/24 08:05 Sputum Gram Stain - Final Complete 06/28/24 08:05 Sputum Respiratory Culture - Final Complete 06/28/24 07:55 Blood Blood Culture - Final Staphylococcus epidermidis Complete Problem List/Assessment/Plan Problem List/Assessment/Plan ESRD on HD s/p cardiac arrest Pleural effusions s/p thoracentesis 1.5L removed CHF exacerbation Hx of Afib Hx of [place] HTN anemia due to CKD hyponatremia thrombosed Right AVF s/p surgical revision s/p declot ---still not working recs Hemodialysis today --s/p tunneled cath placement,,remove nilson catheter AVF not working ,, +blood clots,,high pressures per rn ------needed tunneled cath outpt AVF vasc sx eval We will follow closely confirm chairtime with [facility] --pt just told us yesterday he used to go to [facility] ,,, prior he mentioned he used to go down the [facility] for HD-----social media developer consulted to confirm his exact outpatient unit and confirm chairtime Plan discussed with: Other My Orders My Orders Orders - ADITYA DUNCAN MD Procedure Category Date Status Time Hemodialysis Orders ORDERS 07/18/24 Transmitted 04:00 Dietary Evaluation Review Comments: 1) Add renal restriction to mechanical soft diet order 2) Initiate Nepro bid 3) Continue to promote PO intake 4) Continue to monitor appetite, labs, and skin integrity Expected Outcomes/Goals: 1) appetite and labs to improve 2) wound to improve 3) f/u in 5 days ADITYA DUNCAN MD Jul 18, 2024 10:22
--- NOTE | 2024-07-18 13:31 | DVHPN2 ---
Reviewed: Care Plan, H&P, Labs, Medications, Previous Orders, Radiology Changes from previous H/P or p: No Changes General: Per HPI Objective Vitals Vital Signs Date Time Temp Pulse Resp B/P (MAP) Pulse Ox O2 Delivery O2 Flow Rate FiO2 07/18/24 08:14 97.9 74 17 137/76 (96) 100 97.9 07/18/24 07:30 Nasal Cannula* 3 32 Intake/Output Intake and Output 07/18/24 07:00 Intake Total 660 ml Balance 660 ml Intake Oral 660 ml # Voids 3 General Appearance: Alert, Cooperative, mild distress HEENT: Atraumatic, PERRLA, EOMI, Mucous membr. moist/pink Neck: Supple Lungs: Clear to auscultation, Normal air movement Cardiovascular: Regular rate, Normal S1, Normal S2, No murmurs, Gallops, Rubs Abdomen: Normal bowel sounds, Soft, No tenderness Neuro: Cranial nerves 3-12 NL Psych/Mental Status: Mental status NL Medications Current Medications Medications Dose Ordered Sig/Colleen Route Start Time Stop Time Status Last Admin Dose Admin Bacitracin/ Polymyxin B Sulfate 1 applic TID OP 06/27/24 22:00 07/17/24 23:10 1 APPLIC Dextrose 50 ml UD PRN IV 06/28/24 08:00 06/29/24 11:58 50 ML Heparin Sodium/ Dextrose 250 ml @ 13.896 mls/ hr Q18H IV 06/28/24 08:00 UNV Epoetin Eligio-epbx 10,000 unit MWF@2100 SC 06/29/24 21:00 07/16/24 00:09 10,000 UNIT Artificial Tears 2 drop Q6HP PRN EACHEYE 06/29/24 11:30 Amiodarone HCl 200 mg BID PO 06/30/24 22:00 07/18/24 09:46 200 MG Mexiletine HCl 150 mg Q8HR PO 06/30/24 22:00 07/18/24 06:21 150 MG Acetaminophen 650 mg Q4HP PRN PO 07/03/24 18:00 07/18/24 09:47 650 MG Morphine Sulfate 1 mg Q4HP PRN IV 07/05/24 15:45 07/18/24 04:04 1 MG Pantoprazole Sodium 40 mg DAILY@0600 PO 07/07/24 06:00 07/18/24 06:21 40 MG Ondansetron HCl 4 mg Q6HPRN PRN IV 07/06/24 12:45 07/18/24 11:38 4 MG Albumin Human 100 ml @ 100 mls/hr SHADY PRN IV 07/06/24 19:30 Docusate Sodium 100 mg BIDPRN PRN PO 07/14/24 11:00 Prednisone 20 mg DAILY PO 07/15/24 10:00 07/18/24 09:46 20 MG Apixaban 2.5 mg BID PO 07/17/24 22:00 07/17/24 23:08 2.5 MG Laboratory Results Laboratory Tests 07/17/24 12:00 Microbiology Microbiology Date/Time Source Procedure Growth Status 07/09/24 14:18 Pleural Fluid Gram Stain - Final Complete 07/09/24 14:18 Pleural Fluid Body Fluid Culture - Final Complete 06/28/24 11:44 Nose MRSA Screen - Final Complete 06/28/24 08:05 Sputum Gram Stain - Final Complete 06/28/24 08:05 Sputum Respiratory Culture - Final Complete 06/28/24 07:55 Blood Blood Culture - Final Staphylococcus epidermidis Complete Labs and/or images reviewed: Labs reviewed by me, Image(s) reviewed by me Assessment/Plan Assessment/Plan Covering for resident ESRD s/p cardiac arrest Pleural effusions s/p thoracentesis 1.5L removed CHF exacerbation Hx of Afib Hx of [place] HTN anemia due to CKD thrombosed Right AVF s/p surgical revision DVT left subclavian on Eliquis Time Spent 55 minutes Continue current management Plan discussed with: Patient Date of Service: Jul 18, 2024 Billing Provider: BETTY BRAUN MD Common Visit Codes: [id number] INP/OBS CARE(HIGH) BETTY BRAUN MD Jul 18, 2024 13:30
[2024-07-18 18:31] LABS: Basophils # (auto) 0 10 ^3/uL (0-0.2); Eosinophils # (auto) 0 10 ^3/uL (0-0.8); Hemoglobin 9.1 g/dL (13.5-17.5); Monocytes # (auto) 0.5 10 ^3/uL (0-1.3); Platelet Count (auto) 62 10^3/uL (140-450)
[2024-07-18 18:33] LABS: Basophils % (auto) 0.3 % (0.0-2.0); Hematocrit 27.4 % (41.0-53.0); Lymphocytes # (auto) 0.1 10 ^3/uL (0.4-5.4); Lymphocytes % (auto) 3.7 % (10.0-50.0); Mean Corpuscular Hemoglobin 32.7 pg (28.0-32.0); Mean Corpuscular Hgb Conc. 33.1 g/dL (32.0-36.0); Mean Corpuscular Volume 98.6 fL (80.0-100.0); Neutrophils # (auto) 3.3 10 ^3/uL (1.6-8.6); Nucleated Red Blood Cells % 0.1 %; Red Blood Cells 2.77 10^6/uL (4.5-5.90); Red Cell Distribution Width 21.7 % (11.8-14.3)
[2024-07-18 18:49] LABS: Alkaline Phosphatase 87 U/L (46-116); Anion Gap 10 (5-15); Carbon Dioxide 27 mmol/L (20-31); Potassium 3.7 mmol/L (3.5-5.1)
[2024-07-18 18:50] LABS: Albumin 3.2 g/dL (3.2-4.8); BUN/Creatinine Ratio 9.9 (10.0-20.0); Bilirubin, Total 0.5 mg/dL (0.2-1.0)
[2024-07-18 18:51] LABS: Alanine Aminotransferase 54 U/L (7-40); Aspartate Aminotransferase < 8 U/L (13-40); Blood Urea Nitrogen 71 mg/dL (9-23); Calcium 8.5 mg/dL (8.7-10.4); Chloride 93 mmol/L (98-107); Glucose 146 mg/dL (74-106); Sodium 130 mmol/L (136-145); Total Protein 5.4 g/dL (5.7-8.2)
[2024-07-19] VITALS (9 sets, daily range): BP systolic 128–148; BP diastolic 65–97; PULSE 73–84; RESP 14–20; TEMP 97.3–98.1; O2SAT 2–100
[2024-07-19] MEDS: ceFAZolin 1GM/50ML 50 ML IV ONE (03:12)
[2024-07-19 04:37] LABS: INR 1.19 (0.9-1.15); Prothrombin Time 12.4 sec (9.3-11.8)
[2024-07-19 07:09] LABS: Basophils # (auto) 0 10 ^3/uL (0-0.2); Eosinophils # (auto) 0 10 ^3/uL (0-0.8); Eosinophils % (auto) 0.2 % (0.0-7.0); Lymphocytes # (auto) 0.1 10 ^3/uL (0.4-5.4); Neutrophils # (auto) 3.7 10 ^3/uL (1.6-8.6); Neutrophils % (auto) 94.3 % (37.0-80.0); Nucleated Red Blood Cells % 0.1 %; Platelet Count (auto) 57 10^3/uL (140-450); White Blood Cell 3.9 10^3/uL (4.4-10.8)
[2024-07-19 07:10] LABS: Basophils % (auto) 0.1 % (0.0-2.0); Hematocrit 24.4 % (41.0-53.0); Hemoglobin 8.6 g/dL (13.5-17.5); Lymphocytes % (auto) 1.3 % (10.0-50.0); Mean Corpuscular Hemoglobin 34.4 pg (28.0-32.0); Mean Corpuscular Hgb Conc. 35.3 g/dL (32.0-36.0); Mean Corpuscular Volume 97.5 fL (80.0-100.0); Monocytes # (auto) 0.2 10 ^3/uL (0-1.3); Monocytes % (auto) 4.1 % (0.0-12.0)
[2024-07-19 07:17] LABS: Red Cell Distribution Width 21.5 % (11.8-14.3)
--- NOTE | 2024-07-19 09:55 | DVHPN2 ---
Reviewed: Care Plan, H&P, Labs, Medications, Previous Orders, Radiology Changes from previous H/P or p: No Changes General: Per HPI Objective Vitals Vital Signs Date Time Temp Pulse Resp B/P (MAP) Pulse Ox O2 Delivery O2 Flow Rate FiO2 07/19/24 08:30 97.4 77 16 132/69 (90) 97 97.4 07/19/24 07:30 Nasal Cannula* 3 32 Intake/Output Intake and Output 07/19/24 07:00 Intake Total 895 ml Output Total 450 ml Balance 445 ml Intake Oral 895 ml Output Urine Total 450 ml General Appearance: Alert, Cooperative, mild distress HEENT: Atraumatic, PERRLA, EOMI, Mucous membr. moist/pink Neck: Supple Lungs: Clear to auscultation, Normal air movement Cardiovascular: Regular rate, Normal S1, Normal S2, No murmurs, Gallops, Rubs Abdomen: Normal bowel sounds, Soft, No tenderness Neuro: Cranial nerves 3-12 NL Psych/Mental Status: Mental status NL Medications Current Medications Medications Dose Ordered Sig/Colleen Route Start Time Stop Time Status Last Admin Dose Admin Bacitracin/ Polymyxin B Sulfate 1 applic TID OP 06/27/24 22:00 07/19/24 06:21 1 APPLIC Dextrose 50 ml UD PRN IV 06/28/24 08:00 06/29/24 11:58 50 ML Heparin Sodium/ Dextrose 250 ml @ 13.896 mls/ hr Q18H IV 06/28/24 08:00 UNV Epoetin Eligio-epbx 10,000 unit MWF@2100 SC 06/29/24 21:00 07/16/24 00:09 10,000 UNIT Artificial Tears 2 drop Q6HP PRN EACHEYE 06/29/24 11:30 Amiodarone HCl 200 mg BID PO 06/30/24 22:00 07/18/24 22:49 200 MG Mexiletine HCl 150 mg Q8HR PO 06/30/24 22:00 07/19/24 06:14 150 MG Acetaminophen 650 mg Q4HP PRN PO 07/03/24 18:00 07/18/24 09:47 650 MG Morphine Sulfate 1 mg Q4HP PRN IV 07/05/24 15:45 07/18/24 04:04 1 MG Pantoprazole Sodium 40 mg DAILY@0600 PO 07/07/24 06:00 07/19/24 06:14 40 MG Ondansetron HCl 4 mg Q6HPRN PRN IV 07/06/24 12:45 07/18/24 16:51 4 MG Albumin Human 100 ml @ 100 mls/hr SHADY PRN IV 07/06/24 19:30 Docusate Sodium 100 mg BIDPRN PRN PO 07/14/24 11:00 Prednisone 20 mg DAILY PO 07/15/24 10:00 07/18/24 09:46 20 MG Apixaban 2.5 mg BID PO 07/17/24 22:00 07/17/24 23:08 2.5 MG Laboratory Results Laboratory Tests 07/18/24 18:20 07/19/24 03:49 Chemistry Test 07/18/24 18:20 Albumin 3.2 g/dL (3.2-4.8) Calcium Level 8.5 mg/dL (8.7-10.4) L Total Protein 5.4 g/dL (5.7-8.2) L Coagulation Test 07/19/24 03:44 Prothrombin Time 12.4 sec (9.3-11.8) H Prothrombin Time INR 1.19 (0.9-1.15) H Activated Partial Thromboplast Time 32.0 SEC (24.5-34.5) LFT Test 07/18/24 18:20 Alanine Aminotransferase (ALT) 54 U/L (7-40) H Alkaline Phosphatase 87 U/L (46-116) Aspartate Amino Transferase (AST) < 8 U/L (13-40) L Total Bilirubin 0.5 mg/dL (0.2-1.0) Microbiology Microbiology Date/Time Source Procedure Growth Status 07/09/24 14:18 Pleural Fluid Gram Stain - Final Complete 07/09/24 14:18 Pleural Fluid Body Fluid Culture - Final Complete 06/28/24 11:44 Nose MRSA Screen - Final Complete 06/28/24 08:05 Sputum Gram Stain - Final Complete 06/28/24 08:05 Sputum Respiratory Culture - Final Complete 06/28/24 07:55 Blood Blood Culture - Final Staphylococcus epidermidis Complete Labs and/or images reviewed: Labs reviewed by me, Image(s) reviewed by me Assessment/Plan Assessment/Plan Covering for resident ESRD s/p cardiac arrest Pleural effusions s/p thoracentesis 1.5L removed CHF exacerbation Hx of Afib Hx of [place] HTN anemia due to CKD thrombosed Right AVF s/p surgical revision DVT left subclavian on Eliquis Time Spent 56 minutes Continue current management Plan discussed with: Patient Date of Service: Jul 19, 2024 Billing Provider: BETTY BRAUN MD Common Visit Codes: [id number] INP/OBS CARE(HIGH) BETTY BRAUN MD Jul 19, 2024 09:55
--- NOTE | 2024-07-19 11:17 | ECG ---
[facility] Test Date: 2024-07-15 Test Time: 12:24:30 Pat Name: SUSHMA THAYER Department: Respiratoy Room: 0212T A Gender: M Ring Striker: BELEN : 1960 Requested By: YVONNE BEYER Order Number: [id number] Reading MD: Josh Holliday Measurements Intervals [place] Rate: 75 P: 0 NV: 204 QRS: 0 QRSD: 194 T: 230 QT: 0 QTc: 0 Interpretive Statements Atrial-sensed ventricular-paced complexes No further analysis attempted due to paced rhythm Artifact in lead(s) II,aVR,aVL,V1,V2,V3 Electronically Signed On 07-22-2024 16:24:44 PDT by Josh Holliday Please click the below link to view image of tracing.
--- NOTE | 2024-07-19 11:45 | DVHPN2 ---
Progress Note Date Seen: Jul 18, 2024 Medical Necessity Reason Pt with a Central, PICC or Fol: Yes The following are medically ne: Central Line Objective vital signs Vital Sign Date Time Temp Pulse Resp B/P (MAP) Pulse Ox O2 Delivery O2 Flow Rate FiO2 07/19/24 08:30 97.4 77 16 132/69 (90) 97 97.4 07/19/24 07:30 Nasal Cannula* 3 32 Total Intake and Output 07/18/24 07/18/24 07/19/24 15:00 23:00 07:00 Intake Total 500 ml 395 ml Output Total 350 ml 100 ml Balance 150 ml 295 ml medications Current Medications Medications Dose Ordered Sig/Colleen Route Start Time Stop Time Status Last Admin Dose Admin Bacitracin/ Polymyxin B Sulfate 1 applic TID OP 06/27/24 22:00 07/19/24 06:21 1 APPLIC Dextrose 50 ml UD PRN IV 06/28/24 08:00 06/29/24 11:58 50 ML Heparin Sodium/ Dextrose 250 ml @ 13.896 mls/ hr Q18H IV 06/28/24 08:00 UNV Epoetin Eligio-epbx 10,000 unit MWF@2100 SC 06/29/24 21:00 07/16/24 00:09 10,000 UNIT Artificial Tears 2 drop Q6HP PRN EACHEYE 06/29/24 11:30 Amiodarone HCl 200 mg BID PO 06/30/24 22:00 07/19/24 10:17 200 MG Mexiletine HCl 150 mg Q8HR PO 06/30/24 22:00 07/19/24 06:14 150 MG Acetaminophen 650 mg Q4HP PRN PO 07/03/24 18:00 07/18/24 09:47 650 MG Morphine Sulfate 1 mg Q4HP PRN IV 07/05/24 15:45 07/18/24 04:04 1 MG Pantoprazole Sodium 40 mg DAILY@0600 PO 07/07/24 06:00 07/19/24 06:14 40 MG Ondansetron HCl 4 mg Q6HPRN PRN IV 07/06/24 12:45 07/19/24 10:17 4 MG Albumin Human 100 ml @ 100 mls/hr SHADY PRN IV 07/06/24 19:30 Docusate Sodium 100 mg BIDPRN PRN PO 07/14/24 11:00 Prednisone 20 mg DAILY PO 07/15/24 10:00 07/19/24 10:17 20 MG Apixaban 2.5 mg BID PO 07/17/24 22:00 07/17/24 23:08 2.5 MG laboratory and microbiology Laboratory Tests 07/19/24 03:49 07/18/24 18:20 Test 07/18/24 18:20 Range/Units Serum Glucose 146 H 74-106 mg/dL Microbiology Date/Time Source Procedure Growth Status 07/09/24 14:18 Pleural Fluid Gram Stain - Final Complete 07/09/24 14:18 Pleural Fluid Body Fluid Culture - Final Complete 06/28/24 11:44 Nose MRSA Screen - Final Complete 06/28/24 08:05 Sputum Gram Stain - Final Complete 06/28/24 08:05 Sputum Respiratory Culture - Final Complete 06/28/24 07:55 Blood Blood Culture - Final Staphylococcus epidermidis Complete Problem List/Assessment/Plan Problem List/Assessment/Plan Assessment/Plan Patient is a 64-year-old gentleman who presented on June 27, 2024 for around a week of flu symptoms and upper left swellings. At the time of evaluation, the patient is being managed in unit. He is intubated and not source of history. Information was obtained by reviewing the chart. Reportedly, the patient had missed hemodialysis quite a few times before presentation as he felt sick. It is reported that he did have flu-like symptoms, eye congestion and diarrhea prior to presentation. While being managed on the floor, patient was found to be nonresponsive and was coded. There is no detailed information about the time of the code. There is question about PEA. The patient was intubated and was brought to the unit. Patient was seen by on-call polytechnic registrar at that point. At this point, we are called for Cardiology as the patient is known to us from before. There is no report of actual chest pain. It is of note that serial troponin has been negative. There is no available telemetry at the time of the episode. Is also of note that the patient does have BiV-ICD from before. Presently, the patient is admitted with septic shock. Patient was in the hospital around a month ago. And was managed for acute on chronic systolic heart failure, pancytopenia and pleural effusions (for which had pleurocentesis). He should have been on Eliquis as outpatient. Extubated. There are signs of conjunctivitis on bilateral eyes. No JVD. Mucosa is pink and wet. No carotid bruit. Lungs: Scattered rhonchi in the lungs is heard. Cardiac: Regular, systolic murmur 3/6 in the apex is heard. The site for ICD implantation looks clean with no erythema/ecchymosis/tenderness. Abdomen is soft. Bowel sound is positive. Extremities reveal 2+ edema bilaterally. AV fistula in the right upper extremity with thrill was observed. 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 Echocardiogram of April 08, 2024 had reported four-chamber dilatation, ejection fraction of 20%, [id number]-in-[id number] MR/TR and right ventricular systolic pressure of 75 mm Hg Echocardiogram of May 19, 2024 had reported four-chamber dilatation, ejection fraction of 35%, D shaped septum, pulmonary hypertension, mobile interatrial septum, [id number] aortic insufficiency, mild mitral regurgitation, moderate TR and right ventricular systolic pressure of 80 mm Hg Troponin (high sensitive) 40 - 41 - 40 BNP: 2509.04 D-Dimer: 4.72 Digoxin: <0.14 Chest x-ray reported: FINDINGS: LUNGS AND PLEURAL SPACES: See below. HEART: Cardiomegaly with moderate congestion. Left cardiac. MEDIASTINUM: Unremarkable. Normal mediastinal contour. BONES/JOINTS: Unremarkable. No acute fracture. OTHER FINDINGS: . . . .. IMPRESSION: Cardiomegaly with moderate congestion. Repeat chest x-ray reported: Medical devices: The ETT ends above the level of elizabeth at the level of clavicular heads. The enteric tube extends to the stomach. Multi lead left upper chest wall AICD with leads extending to the cardiac chambers. Cardiomediastinal: The heart is moderately enlarged. Pulmonary vasculature is prominent. Atherosclerotic calcification of the aortic arch noted. Lungs: There is interval enlargement of now moderate-sized right pleural effusion and interval development of patchy consolidation in the right middle and left upper lung zone. Small opacities are noted in the left lung base. Diffuse bilateral interstitial opacities are noted. No pneumothorax. Bones/soft tissues: No acute abnormality is noted. Right subclavian vascular stents noted. IMPRESSION: 1. Worsening CHF with moderate right pleural effusion , interval development of extensive bilateral interstitial opacities and large patchy multifocal bilateral consolidations that may represent edema or pneumonia. Recommend clinical and biochemical correlation. Repeat chest xry reported: IMPRESSION: 1. Right basilar atelectasis or pneumonia. 2. Cardiomegaly with mild congestion. Repeat chest xry reported: IMPRESSION: 1. Right basilar atelectasis or pneumonia. Small bilateral pleural effusions. 2. Cardiomegaly with mild congestion. 3. Endotracheal tube now projects 6 cm above level the elizabeth in appropriate position. Repeat chest xry reported: IMPRESSION: 1. Cardiomegaly with pulmonary congestion and edema. Superimposed pneumonia cannot be excluded. 2. Right pleural effusion. Repeat chest xry reported: FINDINGS: VERTEBRAE: Unremarkable. No acute fracture. Normal alignment. No instability. DISC SPACES: No acute findings. No significant narrowing. SOFT TISSUES: Unremarkable. HEART: Left cardiac. Mild congestive heart failure. TUBES, LINES AND DEVICES: Enteric tube tip in the stomach. The endotracheal tube (ETT) is in satisfactory position. OTHER FINDINGS: . ... IMPRESSION: Mild congestive heart failure. Repeat chest xry revealed: IMPRESSION: Cardiomegaly with moderate congestion. Repeat chest xry revealed: IMPRESSION: 1. Mechanical ventilation with tubes and lines as above. 2. Right basilar infiltrate and effusion, improved. 3. Cardiomegaly. Repeat chest xry revealed: IMPRESSION: 1. Biventricular pacemaker in place 2. Bibasilar infiltrates right pleural effusion. Right pleural effusion appears to have slightly increased. This may be secondary to patient positioning. 3. Right subclavian stent in place unchanged from 07/04/2024.. Repeat chest xry revealed: Lines and Tubes: Left chest wall AICD. Left central venous catheter in satisfactory position. Lungs: Patchy bilateral airspace opacities. Pleura: Small bilateral pleural effusions, [id number]-uheutpp-qlpa-left. No pneumothorax. Cardiomediastinal contours: Unremarkable Bones: Unremarkable IMPRESSION: Unchanged fluid overload. Repeat chest xry revealed: Lines and Tubes: Left chest wall AICD. Left central venous catheter in satisfactory position. Lungs: Mild congestion Pleura: Small right pleural effusion. No pneumothorax. Cardiomediastinal contours: Cardiomegaly Bones: Unremarkable IMPRESSION: Small right pleural effusion. Repeat chest xry revealed: IMPRESSION: Cardiomegaly with small bilateral pleural effusions and bibasilar opacities. Repeat chest xry revealed: IMPRESSION: Small right pneumothorax. Cardiomegaly with left lower lung consolidative opacity. Interval decrease in right pleural effusion compared to prior exam. Critical Result: Pneumothorax Repeat chest xry revealed: IMPRESSION: Interval resolution of previously seen right pneumothorax. Pulmonary edema. Small left pleural effusion. Chest ultrasound revealed: Findings/Impression: Moderate to large right pleural effusion. No left pleural effusion. Thoracentesis (07/09/2024): IMPRESSION: Ultrasound guided RIGHT thoracentesis. Venous duplex of left upper ext (07/09/2024): Impression: Thrombus in the left subclavian vein If clinical concern/symptoms persist or worsen, short-interval follow-up study is suggested. Upper ext (right) arterial duplex reported: IMPRESSION: 1. The right upper extremity brachial-cephalic AVF is thrombosed. 2. The right axillary stent is thrombosed. 3. The arteries of the right upper extremity including subclavian, axillary, brachial, radial and ulnar arteries are patent. Repeat Upper ext (right) arterial duplex reported: IMPRESSION: Thrombus is seen at the mid and distal aspect of right upper extremity fistula. Thrombus is seen in the cephalic vein. Vascular surgery consultation recommended. CTA of lungs revealed: IMPRESSION: 1. No pulmonary embolism. 2. Large right and small left pleural effusion with associated bilateral atelectasis and consolidation. Patchy ground-glass opacities could represent pulmonary edema or an infectious / inflammatory process. Mediastinal lymphadenopathy similar to prior. Clinical correlation and continued follow-up is recommended. Overall appearance is worse compared to prior exam. CT of head reported: 1. No acute intracranial pathology. Cortical atrophy greater on the left. EKG revealed paced rhythm Telemetry revealed paced rhythm (it is of note that telemetry rhythm at the time of the code is not available to revealed) Echocardiogram reported: limited study. lvef 20% by visual estimate. postop septum. septum flattening noted. RV enlarged with dysfunction. biatrial enlargement. valves not assessed [employer] ICD interrogation revealed: Remaining longevity of battery: 3.8 years; DDDR: 60/130; Pacing impedance: A 380 /RV 323/LV 304 Ohms; Shock impedance: RV 29 Ohms; Capture threshold: Atrial 0.5/RV 0.875 volts at 0.4 milliseconds; Program sensitivity: Atrial 0.3/RV 0.3 mV; Episodes: VT/VF: 1 resulting in shock; Changes performed: VTE detection interval was changed from 270 millisecond to 320 millisecond/VT detection interval was changed from 330 millisecond to 400 milliseconds Cardiac cath performed: Diagnosis: Nonobstructive coronary artery disease; Patent stents in mid LAD/proximal RCA/distal RCA; Negative FFR of 50% lesion in mid LAD; LVEDP of 10 mm Hg; Cardiac suggestions for management: Optimized medical therapy; Guideline directed medical therapy for systolic heart failure; Lifestyle and risk factor modification Patient is a 64-year-old gentleman who presented with flu-like symptoms, but later coded in the floor. No tele rhythm of the time of the code was available to review (at first). Reportedly there was PA. Stable serial high sensitive troponin is against acute coronary syndrome. Patient does have baseline history of heart failure and pulmonary hypertension. He also has Bi V ICD (interrogation revealed episode of v-fib/v-tach resulting in Defibrillation). Does have baseline history of noncompliance to medication/hemodialysis. Does have baseline history of pancytopenia and is found to have significant anemia. With respiratory failure and on vent support. Case discussed with Electrophysiology (Dr Tamayo). Acute arrest Rule out PA Questionable encephalopathy, anoxic versus toxic? Recent URI Septic shock s/p Defibrillation secondary to V-fib/Vtach Encephalopathy Baseline pulmonary hypertension Baseline systolic heart failure Status post Bi V ICD End-stage renal disease, Noncompliant with medication, followups and hemodialysis Pancytopenia History of GI bleeding Right pleural effusion s/p Right AV fistula thrombectomy central angioplasty and peripheral venous angioplasty by Vascular surgeon s/p thoracentesis resulting in pneumothorax DVT of left subclavian vein Cardiac suggestion for management: Manage in telemetry Follow-up electrolytes and kidney function tests and correct abnormalities On Amiodarone and Mexiletine Optimized medical therapy; Guideline directed medical therapy for systolic heart failure Consider removal of central line from left neck Anticoagulation as per primary team Pulmonary follow up is advised. Management of right upper ext DVT as per primary team and vascular Further evaluation and management depends on the above and clinical course A total of 50 minutes was spent reviewing the patient record, examining the patient, making a diagnostic and therapeutic plan, discussing this plan with medical personnel, following up on diagnostic studies and following the patient for clinical stability excluding any and all procedures. At least 50% of this time was spent in direct, hfyn-ej-zroc contact. Thank you for allowing me to participate in this patient's care. Further recommendations will depend on patient's clinical course. Please do not hesitate to contact me if you have any questions or concerns. This medical document was created using electronic medical record system with [employer] computerized dictation system. Although this document has been carefully reviewed, there may still be some phonetic and typographical errors. These areas are purely typographical due to the imperfection of the software programs, and do not reflect any compromise in the patient's medical care. Plan discussed with: Other (nurse) Dietary Evaluation Review Comments: 1) Add renal restriction to mechanical soft diet order 2) Initiate Nepro bid 3) Continue to promote PO intake 4) Continue to monitor appetite, labs, and skin integrity Expected Outcomes/Goals: 1) appetite and labs to improve 2) wound to improve 3) f/u in 5 days EDGARDO TAMAYO MD Jul 19, 2024 11:45
--- NOTE | 2024-07-19 15:56 | DVHPN2 ---
Progress Note Date Seen: Jul 19, 2024 Medical Necessity Reason Pt with a Central, PICC or Fol: Yes The following are medically ne: Central Line Subjective Patient reports: Other (Bleeding from tunneled catheter site, rectal bleeding) Review of Systems: HEENT:Normal, GI:Abnormal, MSK:Abnormal Objective vital signs Vital Sign Date Time Temp Pulse Resp B/P (MAP) Pulse Ox O2 Delivery O2 Flow Rate FiO2 07/19/24 12:30 97.3 77 14 132/70 (90) 99 97.3 07/19/24 07:30 Nasal Cannula* 3 32 Total Intake and Output 07/18/24 07/18/24 07/19/24 15:00 23:00 07:00 Intake Total 500 ml 395 ml Output Total 350 ml 100 ml Balance 150 ml 295 ml medications Current Medications Medications Dose Ordered Sig/Colleen Route Start Time Stop Time Status Last Admin Dose Admin Bacitracin/ Polymyxin B Sulfate 1 applic TID OP 06/27/24 22:00 07/19/24 06:21 1 APPLIC Dextrose 50 ml UD PRN IV 06/28/24 08:00 06/29/24 11:58 50 ML Heparin Sodium/ Dextrose 250 ml @ 13.896 mls/ hr Q18H IV 06/28/24 08:00 UNV Epoetin Eligio-epbx 10,000 unit MWF@2100 SC 06/29/24 21:00 07/16/24 00:09 10,000 UNIT Artificial Tears 2 drop Q6HP PRN EACHEYE 06/29/24 11:30 Amiodarone HCl 200 mg BID PO 06/30/24 22:00 07/19/24 10:17 200 MG Mexiletine HCl 150 mg Q8HR PO 06/30/24 22:00 07/19/24 06:14 150 MG Acetaminophen 650 mg Q4HP PRN PO 07/03/24 18:00 07/18/24 09:47 650 MG Morphine Sulfate 1 mg Q4HP PRN IV 07/05/24 15:45 07/18/24 04:04 1 MG Pantoprazole Sodium 40 mg DAILY@0600 PO 07/07/24 06:00 07/19/24 06:14 40 MG Ondansetron HCl 4 mg Q6HPRN PRN IV 07/06/24 12:45 07/19/24 10:17 4 MG Albumin Human 100 ml @ 100 mls/hr SHADY PRN IV 07/06/24 19:30 Docusate Sodium 100 mg BIDPRN PRN PO 07/14/24 11:00 Prednisone 20 mg DAILY PO 07/15/24 10:00 07/19/24 10:17 20 MG Examination: GENERAL:Normal, MSK:Abnormal, NEURO:Normal laboratory and microbiology Laboratory Tests 07/19/24 03:49 07/18/24 18:20 Test 07/18/24 18:20 Range/Units Serum Glucose 146 H 74-106 mg/dL Microbiology Date/Time Source Procedure Growth Status 07/09/24 14:18 Pleural Fluid Gram Stain - Final Complete 07/09/24 14:18 Pleural Fluid Body Fluid Culture - Final Complete 06/28/24 11:44 Nose MRSA Screen - Final Complete 06/28/24 08:05 Sputum Gram Stain - Final Complete 06/28/24 08:05 Sputum Respiratory Culture - Final Complete 06/28/24 07:55 Blood Blood Culture - Final Staphylococcus epidermidis Complete Problem List/Assessment/Plan Problem List/Assessment/Plan ESRD on HD s/p cardiac arrest Pleural effusions s/p thoracentesis 1.5L removed CHF exacerbation Hx of Afib Hx of CO HTN anemia due to CKD hyponatremia thrombosed Right AVF s/p surgical revision s/p declot ---still not working Thrombocytopenia Status post tunneled catheter placement---it has been bleeding Subclavian vein thrombus recs Hemodialysis Saturday---noted tunneled catheter bleeding----dressing changed and Surgicel applied by our director embalmer today---I have personally informed Dr. Bennett today to check on the patient early AM he informed he will take care of it tomorrow morning AVF not working ,, +blood clots,,high pressures per rn ------needed tunneled cath outpt AVF vasc sx eval We will follow closely confirm chairtime with [facility] --pt just told us yesterday he used to go to [facility] ,,, prior he mentioned he used to go down the [facility] for HD -----social work job titles consulted to confirm his exact outpatient unit and confirm chairtime ---d/w casemanager Anticoagulants have been held given rectal bleeding and low platelets catheter bleeding---consider Hematology eval Plan discussed with: Patient, Other My Orders My Orders Orders - ADITYA DUNCAN MD Procedure Category Date Status Time Discontinue All LETICIA 07/19/24 Transmitted Heparin 15:51 Dietary Evaluation Review Comments: 1) Add renal restriction to mechanical soft diet order 2) Initiate Nepro bid 3) Continue to promote PO intake 4) Continue to monitor appetite, labs, and skin integrity Expected Outcomes/Goals: 1) appetite and labs to improve 2) wound to improve 3) f/u in 5 days ADITYA DUNCAN MD Jul 19, 2024 15:56
[2024-07-20] VITALS (8 sets, daily range): BP systolic 127–136; BP diastolic 71–76; PULSE 71–86; RESP 16–20; TEMP 97.3–98.2; O2SAT 97–100
[2024-07-20 06:29] LABS: Basophils # (auto) 0 10 ^3/uL (0-0.2); Basophils % (auto) 0.1 % (0.0-2.0); Eosinophils # (auto) 0 10 ^3/uL (0-0.8); Hemoglobin 7.7 g/dL (13.5-17.5); Lymphocytes # (auto) 0.1 10 ^3/uL (0.4-5.4); Platelet Count (auto) 54 10^3/uL (140-450); White Blood Cell 4.4 10^3/uL (4.4-10.8)
[2024-07-20 06:32] LABS: Eosinophils % (auto) 0.1 % (0.0-7.0); Lymphocytes % (auto) 2.5 % (10.0-50.0); Mean Corpuscular Hemoglobin 34.4 pg (28.0-32.0); Mean Corpuscular Hgb Conc. 35.1 g/dL (32.0-36.0); Mean Corpuscular Volume 98.1 fL (80.0-100.0); Monocytes # (auto) 0.4 10 ^3/uL (0-1.3); Monocytes % (auto) 8.1 % (0.0-12.0); Neutrophils # (auto) 3.9 10 ^3/uL (1.6-8.6); Neutrophils % (auto) 89.2 % (37.0-80.0); Nucleated Red Blood Cells % 0.1 %; Red Blood Cells 2.24 10^6/uL (4.5-5.90)
--- NOTE | 2024-07-20 08:29 | DVHPN2 ---
Progress Note - Dictate Date Seen: Jul 20, 2024 Medical Necessity Reason Pt with a Central, PICC or Fol: Yes The following are medically ne: Central Line vital signs Vital Sign Date Time Temp Pulse Resp B/P (MAP) Pulse Ox O2 Delivery O2 Flow Rate FiO2 07/20/24 05:00 98.2 80 19 127/76 (93) 97 98.2 07/19/24 20:00 Nasal Cannula* 3 32 Total Intake and Output 07/19/24 07/19/24 07/20/24 15:00 23:00 07:00 Intake Total 200 ml Output Total 100 ml Balance 100 ml medications Current Medications Medications Dose Ordered Sig/Colleen Route Start Time Stop Time Status Last Admin Dose Admin Bacitracin/ Polymyxin B Sulfate 1 applic TID OP 06/27/24 22:00 07/19/24 06:21 1 APPLIC Dextrose 50 ml UD PRN IV 06/28/24 08:00 06/29/24 11:58 50 ML Heparin Sodium/ Dextrose 250 ml @ 13.896 mls/ hr Q18H IV 06/28/24 08:00 UNV Epoetin Eligio-epbx 10,000 unit MWF@2100 SC 06/29/24 21:00 07/16/24 00:09 10,000 UNIT Artificial Tears 2 drop Q6HP PRN EACHEYE 06/29/24 11:30 Amiodarone HCl 200 mg BID PO 06/30/24 22:00 07/19/24 21:24 200 MG Mexiletine HCl 150 mg Q8HR PO 06/30/24 22:00 07/20/24 06:02 150 MG Acetaminophen 650 mg Q4HP PRN PO 07/03/24 18:00 07/20/24 04:32 650 MG Morphine Sulfate 1 mg Q4HP PRN IV 07/05/24 15:45 07/19/24 16:24 1 MG Pantoprazole Sodium 40 mg DAILY@0600 PO 07/07/24 06:00 07/20/24 06:01 40 MG Ondansetron HCl 4 mg Q6HPRN PRN IV 07/06/24 12:45 07/19/24 18:48 4 MG Albumin Human 100 ml @ 100 mls/hr SHADY PRN IV 07/06/24 19:30 Docusate Sodium 100 mg BIDPRN PRN PO 07/14/24 11:00 Prednisone 20 mg DAILY PO 07/15/24 10:00 07/19/24 10:17 20 MG laboratory and microbiology Laboratory Tests 07/20/24 05:33 07/18/24 18:20 Test 07/18/24 18:20 Range/Units Serum Glucose 146 H 74-106 mg/dL Assessment/Plan Patient is a 64-year-old gentleman who presented on June 27, 2024 for around a week of flu symptoms and upper left swellings. At the time of evaluation, the patient is being managed in unit. He is intubated and not source of history. Information was obtained by reviewing the chart. Reportedly, the patient had missed hemodialysis quite a few times before presentation as he felt sick. It is reported that he did have flu-like symptoms, eye congestion and diarrhea prior to presentation. While being managed on the floor, patient was found to be nonresponsive and was coded. There is no detailed information about the time of the code. There is question about PEA. The patient was intubated and was brought to the unit. Patient was seen by on-call electromechanisms design drafter at that point. At this point, we are called for Cardiology as the patient is known to us from before. There is no report of actual chest pain. It is of note that serial troponin has been negative. There is no available telemetry at the time of the episode. Is also of note that the patient does have BiV-ICD from before. Presently, the patient is admitted with septic shock. Patient was in the hospital around a month ago. And was managed for acute on chronic systolic heart failure, pancytopenia and pleural effusions (for which had pleurocentesis). He should have been on Eliquis as outpatient. Extubated. There are signs of conjunctivitis on bilateral eyes. No JVD. Mucosa is pink and wet. No carotid bruit. Lungs: Scattered rhonchi in the lungs is heard. Cardiac: Regular, systolic murmur 3/6 in the apex is heard. The site for ICD implantation looks clean with no erythema/ecchymosis/tenderness. Abdomen is soft. Bowel sound is positive. Extremities reveal 2+ edema bilaterally. AV fistula in the right upper extremity with thrill was observed. 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 Echocardiogram of April 08, 2024 had reported four-chamber dilatation, ejection fraction of 20%, [id number] MR/TR and right ventricular systolic pressure of 75 mm Hg Echocardiogram of May 19, 2024 had reported four-chamber dilatation, ejection fraction of 35%, D shaped septum, pulmonary hypertension, mobile interatrial septum, [id number] aortic insufficiency, mild mitral regurgitation, moderate TR and right ventricular systolic pressure of 80 mm Hg Troponin (high sensitive) 40 - 41 - 40 BNP: 2509.04 D-Dimer: 4.72 Digoxin: <0.14 Chest x-ray reported: FINDINGS: LUNGS AND PLEURAL SPACES: See below. HEART: Cardiomegaly with moderate congestion. Left cardiac. MEDIASTINUM: Unremarkable. Normal mediastinal contour. BONES/JOINTS: Unremarkable. No acute fracture. OTHER FINDINGS: . . . .. IMPRESSION: Cardiomegaly with moderate congestion. Repeat chest x-ray reported: Medical devices: The ETT ends above the level of elizabeth at the level of clavicular heads. The enteric tube extends to the stomach. Multi lead left upper chest wall AICD with leads extending to the cardiac chambers. Cardiomediastinal: The heart is moderately enlarged. Pulmonary vasculature is prominent. Atherosclerotic calcification of the aortic arch noted. Lungs: There is interval enlargement of now moderate-sized right pleural effusion and interval development of patchy consolidation in the right middle and left upper lung zone. Small opacities are noted in the left lung base. Diffuse bilateral interstitial opacities are noted. No pneumothorax. Bones/soft tissues: No acute abnormality is noted. Right subclavian vascular stents noted. IMPRESSION: 1. Worsening CHF with moderate right pleural effusion , interval development of extensive bilateral interstitial opacities and large patchy multifocal bilateral consolidations that may represent edema or pneumonia. Recommend clinical and biochemical correlation. Repeat chest xry reported: IMPRESSION: 1. Right basilar atelectasis or pneumonia. 2. Cardiomegaly with mild congestion. Repeat chest xry reported: IMPRESSION: 1. Right basilar atelectasis or pneumonia. Small bilateral pleural effusions. 2. Cardiomegaly with mild congestion. 3. Endotracheal tube now projects 6 cm above level the elizabeth in appropriate position. Repeat chest xry reported: IMPRESSION: 1. Cardiomegaly with pulmonary congestion and edema. Superimposed pneumonia cannot be excluded. 2. Right pleural effusion. Repeat chest xry reported: FINDINGS: VERTEBRAE: Unremarkable. No acute fracture. Normal alignment. No instability. DISC SPACES: No acute findings. No significant narrowing. SOFT TISSUES: Unremarkable. HEART: Left cardiac. Mild congestive heart failure. TUBES, LINES AND DEVICES: Enteric tube tip in the stomach. The endotracheal tube (ETT) is in satisfactory position. OTHER FINDINGS: . ... IMPRESSION: Mild congestive heart failure. Repeat chest xry revealed: IMPRESSION: Cardiomegaly with moderate congestion. Repeat chest xry revealed: IMPRESSION: 1. Mechanical ventilation with tubes and lines as above. 2. Right basilar infiltrate and effusion, improved. 3. Cardiomegaly. Repeat chest xry revealed: IMPRESSION: 1. Biventricular pacemaker in place 2. Bibasilar infiltrates right pleural effusion. Right pleural effusion appears to have slightly increased. This may be secondary to patient positioning. 3. Right subclavian stent in place unchanged from 07/04/2024.. Repeat chest xry revealed: Lines and Tubes: Left chest wall AICD. Left central venous catheter in satisfactory position. Lungs: Patchy bilateral airspace opacities. Pleura: Small bilateral pleural effusions, ukuvm-slujqtg-asup-left. No pneumothorax. Cardiomediastinal contours: Unremarkable Bones: Unremarkable IMPRESSION: Unchanged fluid overload. Repeat chest xry revealed: Lines and Tubes: Left chest wall AICD. Left central venous catheter in satisfactory position. Lungs: Mild congestion Pleura: Small right pleural effusion. No pneumothorax. Cardiomediastinal contours: Cardiomegaly Bones: Unremarkable IMPRESSION: Small right pleural effusion. Repeat chest xry revealed: IMPRESSION: Cardiomegaly with small bilateral pleural effusions and bibasilar opacities. Repeat chest xry revealed: IMPRESSION: Small right pneumothorax. Cardiomegaly with left lower lung consolidative opacity. Interval decrease in right pleural effusion compared to prior exam. Critical Result: Pneumothorax Repeat chest xry revealed: IMPRESSION: Interval resolution of previously seen right pneumothorax. Pulmonary edema. Small left pleural effusion. Chest ultrasound revealed: Findings/Impression: Moderate to large right pleural effusion. No left pleural effusion. Thoracentesis (07/09/2024): IMPRESSION: Ultrasound guided RIGHT thoracentesis. Venous duplex of left upper ext (07/09/2024): Impression: Thrombus in the left subclavian vein If clinical concern/symptoms persist or worsen, short-interval follow-up study is suggested. Upper ext (right) arterial duplex reported: IMPRESSION: 1. The right upper extremity brachial-cephalic AVF is thrombosed. 2. The right axillary stent is thrombosed. 3. The arteries of the right upper extremity including subclavian, axillary, brachial, radial and ulnar arteries are patent. Repeat Upper ext (right) arterial duplex reported: IMPRESSION: Thrombus is seen at the mid and distal aspect of right upper extremity fistula. Thrombus is seen in the cephalic vein. Vascular surgery consultation recommended. CTA of lungs revealed: IMPRESSION: 1. No pulmonary embolism. 2. Large right and small left pleural effusion with associated bilateral atelectasis and consolidation. Patchy ground-glass opacities could represent pulmonary edema or an infectious / inflammatory process. Mediastinal lymphadenopathy similar to prior. Clinical correlation and continued follow-up is recommended. Overall appearance is worse compared to prior exam. CT of head reported: 1. No acute intracranial pathology. Cortical atrophy greater on the left. EKG revealed paced rhythm Telemetry revealed paced rhythm (it is of note that telemetry rhythm at the time of the code is not available to revealed) Echocardiogram reported: limited study. lvef 20% by visual estimate. postop septum. septum flattening noted. RV enlarged with dysfunction. biatrial enlargement. valves not assessed [employer] ICD interrogation revealed: Remaining longevity of battery: 3.8 years; DDDR: 60/130; Pacing impedance: A 380 /RV 323/LV 304 Ohms; Shock impedance: RV 29 Ohms; Capture threshold: Atrial 0.5/RV 0.875 volts at 0.4 milliseconds; Program sensitivity: Atrial 0.3/RV 0.3 mV; Episodes: VT/VF: 1 resulting in shock; Changes performed: VTE detection interval was changed from 270 millisecond to 320 millisecond/VT detection interval was changed from 330 millisecond to 400 milliseconds Cardiac cath performed: Diagnosis: Nonobstructive coronary artery disease; Patent stents in mid LAD/proximal RCA/distal RCA; Negative FFR of 50% lesion in mid LAD; LVEDP of 10 mm Hg; Cardiac suggestions for management: Optimized medical therapy; Guideline directed medical therapy for systolic heart failure; Lifestyle and risk factor modification Patient is a 64-year-old gentleman who presented with flu-like symptoms, but later coded in the floor. No tele rhythm of the time of the code was available to review (at first). Reportedly there was PA. Stable serial high sensitive troponin is against acute coronary syndrome. Patient does have baseline history of heart failure and pulmonary hypertension. He also has Bi V ICD (interrogation revealed episode of v-fib/v-tach resulting in Defibrillation). Does have baseline history of noncompliance to medication/hemodialysis. Does have baseline history of pancytopenia and is found to have significant anemia. With respiratory failure and on vent support. Case discussed with Electrophysiology (Dr Tamayo). Acute arrest Rule out PA Questionable encephalopathy, anoxic versus toxic? Recent URI Septic shock s/p Defibrillation secondary to V-fib/Vtach Encephalopathy Baseline pulmonary hypertension Baseline systolic heart failure Status post Bi V ICD End-stage renal disease, Noncompliant with medication, followups and hemodialysis Pancytopenia History of GI bleeding Right pleural effusion s/p Right AV fistula thrombectomy central angioplasty and peripheral venous angioplasty by Vascular surgeon s/p thoracentesis resulting in pneumothorax DVT of left subclavian vein Cardiac suggestion for management: Manage in telemetry Follow-up electrolytes and kidney function tests and correct abnormalities On Amiodarone and Mexiletine ASA and DVT prophylaxis is advised. Optimized medical therapy; Guideline directed medical therapy for systolic heart failure Consider removal of central line from left neck Anticoagulation as per primary team Pulmonary follow up is advised. Management of right upper ext DVT as per primary team and vascular Further evaluation and management depends on the above and clinical course A total of 55 minutes was spent reviewing the patient record, examining the patient, making a diagnostic and therapeutic plan, discussing this plan with medical personnel, following up on diagnostic studies and following the patient for clinical stability excluding any and all procedures. At least 50% of this time was spent in direct, [id number] contact. Thank you for allowing me to participate in this patient's care. Further recommendations will depend on patient's clinical course. Please do not hesitate to contact me if you have any questions or concerns. This medical document was created using electronic medical record system with [employer] dictation system. Although this document has been carefully reviewed, there may still be some phonetic and typographical errors. These areas are purely typographical due to the imperfection of the software programs, and do not reflect any compromise in the patient's medical care. Dietary Evaluation Review Comments: 1) Add renal restriction to mechanical soft diet order 2) Initiate Nepro bid 3) Continue to promote PO intake 4) Continue to monitor appetite, labs, and skin integrity Expected Outcomes/Goals: 1) appetite and labs to improve 2) wound to improve 3) f/u in 5 days Plan discussed with: Patient, Other (nurse) SUSHMA WALKER MD Jul 20, 2024 08:29
[2024-07-20 11:55] LABS: Basophils # (auto) 0 10 ^3/uL (0-0.2); Eosinophils # (auto) 0 10 ^3/uL (0-0.8); Eosinophils % (auto) 0.2 % (0.0-7.0); Lymphocytes # (auto) 0.1 10 ^3/uL (0.4-5.4); Mean Corpuscular Hgb Conc. 33.9 g/dL (32.0-36.0); Monocytes # (auto) 0.4 10 ^3/uL (0-1.3); Neutrophils # (auto) 3.6 10 ^3/uL (1.6-8.6); Neutrophils % (auto) 86.1 % (37.0-80.0); Nucleated Red Blood Cells % 0.2 %; Red Cell Distribution Width 23.2 % (11.8-14.3); White Blood Cell 4.2 10^3/uL (4.4-10.8)
[2024-07-20 11:57] LABS: Basophils % (auto) 0.4 % (0.0-2.0); Hematocrit 21.9 % (41.0-53.0); Hemoglobin 7.4 g/dL (13.5-17.5); Lymphocytes % (auto) 3.3 % (10.0-50.0); Mean Corpuscular Hemoglobin 33.8 pg (28.0-32.0); Mean Corpuscular Volume 99.8 fL (80.0-100.0); Platelet Count (auto) 59 10^3/uL (140-450)
--- NOTE | 2024-07-20 12:56 | DVHPN2 ---
Progress Note Date Seen: Jul 20, 2024 Medical Necessity Reason Pt with a Central, PICC or Fol: Yes The following are medically ne: Central Line Subjective Patient reports: No new complaints Other Systems: Patient seen and examined by myself today in follow-up Objective vital signs Vital Sign Date Time Temp Pulse Resp B/P (MAP) Pulse Ox O2 Delivery O2 Flow Rate FiO2 07/20/24 12:30 97.4 75 20 130/71 (90) 100 97.4 07/19/24 20:00 Nasal Cannula* 3 32 Total Intake and Output 07/19/24 07/19/24 07/20/24 15:00 23:00 07:00 Intake Total 200 ml Output Total 100 ml Balance 100 ml medications Current Medications Medications Dose Ordered Sig/Colleen Route Start Time Stop Time Status Last Admin Dose Admin Bacitracin/ Polymyxin B Sulfate 1 applic TID OP 06/27/24 22:00 07/19/24 06:21 1 APPLIC Dextrose 50 ml UD PRN IV 06/28/24 08:00 06/29/24 11:58 50 ML Heparin Sodium/ Dextrose 250 ml @ 13.896 mls/ hr Q18H IV 06/28/24 08:00 UNV Epoetin Eligio-epbx 10,000 unit MWF@2100 SC 06/29/24 21:00 07/16/24 00:09 10,000 UNIT Artificial Tears 2 drop Q6HP PRN EACHEYE 06/29/24 11:30 Amiodarone HCl 200 mg BID PO 06/30/24 22:00 07/20/24 11:08 200 MG Mexiletine HCl 150 mg Q8HR PO 06/30/24 22:00 07/20/24 06:02 150 MG Acetaminophen 650 mg Q4HP PRN PO 07/03/24 18:00 07/20/24 04:32 650 MG Morphine Sulfate 1 mg Q4HP PRN IV 07/05/24 15:45 07/19/24 16:24 1 MG Pantoprazole Sodium 40 mg DAILY@0600 PO 07/07/24 06:00 07/20/24 06:01 40 MG Ondansetron HCl 4 mg Q6HPRN PRN IV 07/06/24 12:45 07/20/24 10:11 4 MG Albumin Human 100 ml @ 100 mls/hr SHADY PRN IV 07/06/24 19:30 Docusate Sodium 100 mg BIDPRN PRN PO 07/14/24 11:00 Prednisone 20 mg DAILY PO 07/15/24 10:00 07/20/24 11:07 20 MG Examination: LUNGS:Normal, CVS:Normal, MSK:Normal laboratory and microbiology Laboratory Tests 07/20/24 11:00 07/18/24 18:20 Test 07/18/24 18:20 Range/Units Serum Glucose 146 H 74-106 mg/dL Microbiology Date/Time Source Procedure Growth Status 07/09/24 14:18 Pleural Fluid Gram Stain - Final Complete 07/09/24 14:18 Pleural Fluid Body Fluid Culture - Final Complete 06/28/24 11:44 Nose MRSA Screen - Final Complete 06/28/24 08:05 Sputum Gram Stain - Final Complete 06/28/24 08:05 Sputum Respiratory Culture - Final Complete 06/28/24 07:55 Blood Blood Culture - Final Staphylococcus epidermidis Complete Problem List/Assessment/Plan Problem List/Assessment/Plan ESRD on dialysis Acute respiratory failure, extubated Hyperkalemia s/p cardiac arrest thrombosed AVF status post angioplasty and fistulogram by vascular surgery 07/01 CHF exacerbation Atrial fibrillation HTN Anemia chronic kidney disease Hypokalemia Recommendation Hemodialysis tomorrow Epogen 78747 IV post hemodialysis Fluid restrictions KCL replacement Blood pressure control We will continue to follow up Plan discussed with: Patient Dietary Evaluation Review Comments: 1) Add renal restriction to mechanical soft diet order 2) Initiate Nepro bid 3) Continue to promote PO intake 4) Continue to monitor appetite, labs, and skin integrity Expected Outcomes/Goals: 1) appetite and labs to improve 2) wound to improve 3) f/u in 5 days BRITTANY AIKEN MD Jul 20, 2024 12:56
[2024-07-20] MEDS: ASPirin 81 mg TAB PO ONE (18:07)
--- NOTE | 2024-07-20 18:38 | DVHPNRES ---
Progress Note Date Seen: Jul 20, 2024 Resident Creating Document: KEILY GREGG RESIDENT Medical Necessity Reason Pt with a Central, PICC or Fol: Yes The following are medically ne: Central Line Subjective Review of Systems HPI-patient is 64-year-old male patient with a history of nonischemic cardiomyopathy, chronic systolic heart failure, hypertension, hyperlipidemia, type 2 diabetes mellitus, prior myocardial infarction, pulmonary hypertension, end-stage renal disease on hemodialysis, who presented on June 27 with 1 week history of flu-like symptoms, upper respiratory illness and progressive weakness. The patient has been several hemodialysis sessions before admission and was reportedly found lying on the floor, cyanotic and unresponsive, on arrival the patient was intubated for respiratory failure and transported to the hospital. On ICU admission the patient was noted to be hemodynamically unstable requiring vasopressor support with norepinephrine and was deeply comatose, unresponsive to verbal or painful stimuli with a fixed nonreactive pupils and absent brainstem reflexes raising concern for severe anoxic brain injury. Cardiology was consulted due to the patient's history of heart failure, prior medical infarction and no pulmonary hypertension, echocardiogram from May 19, 2024 showed severe be ventricular dysfunction with left ventricular ejection fraction 35%, severe pulmonary hypertension with RVSP 75 mmHg, moderate mitral and aortic regurgitation and chronic volume overload. On admission the patient was to have bilateral pulmonary congestion with a fist crackles 1 inhalation which has imaging revealing bilateral infiltrates and pulmonary congestion concerning for volume overload versus aspiration pneumonia. There was no evidence of/pleural effusion or pneumothorax at that time.Additionally he was found to have worsening acute kidney injury (creatinine 3.58, BUN 52) severe metabolic and respiratory acidosis ABG pH 7.25, HC 0 3 13.9, lactate 14.5 and leukocytosis with blood cell count 22.1 raising suspicion for infectious process urinalysis showed leukocyte 3+, white blood cell count 101 and bacteria suggestive for possible urinary tract infection as a contributing source of sepsis. Given the high suspicion of sepsis with multisystemic organ dysfunction shock ALLI metabolic acidosis respiratory failure altered mental status the patient was started on broad-spectrum antibiotics with Zosyn vancomycin vasopressor support and mechanical ventilation. Currently the patient remains critically ill, responsive and dependent on full life support with a higher likelihood of poor neurological recovery. Echo on 06/29/2014 revealed-LVEF 20%, septal flattening, right ventricular enlargement with dysfunction, biatrial enlargement. On 06/29/2024- CT angio showed no pulmonary embolism but a large right and small left pleural effusion with associated bilateral atelectasis and consolidation. Patchy ground-glass opacities could represent pulmonary edema or an infectious / inflammatory process. Mediastinal lymphadenopathy similar to prior. Overall appearance is worse compared to prior exam. 06/29/24 CT head : No acute intracranial pathology. Cortical atrophy greater on the left. 07/01/2024 Quintoin catheter was placed 07/05/2024-patient was extubated On 07/09/2024-Doppler study of the left upper extremity revealed thrombus in the left subclavian vein On 07/09/[id number] thoracentesis removed 1.3 L of straw-colored fluid. 07/10/2024-Doppler study of the right upper extremity revealed-Thrombus is seen at the mid and distal aspect of right upper extremity fistula. Thrombus is seen in the cephalic vein. 07/17/24 tunneled catheter placed the right axillary vein Status post 4 units blood transfusion 07/20/24-patient was seen today for clinical evaluation. Labs and chart reviewed. \ Patient was seen by Dr. Booth, recommended for aspirin for cardiac cause and Eliquis for DVT of the left subclavian vein. Patient was seen by Nephrology, recommended hemodialysis tomorrow, Epogen 61517 units IV post hemodialysis. Ordered Eliquis 2.5 mg p.o. b.i.d. and aspirin 81 mg p.o. daily. Plan is to do 1 unit of blood transfusion on next hemodialysis tomorrow. Patient's leukopenia resolved with WBC 4.4, hemoglobin trending down due 7.4 today likely due to wheezing from the tunnel catheter side, mild hyponatremia with a sodium 130, chronic thrombocytopenia, platelet today 59. Plan is to discharge patient tomorrow a.m. Pending hepatitis-B core total antibody Due for chair time with Wesley [employer] called and talked to Didi, [phone], discussed patient's current medical condition, plan of care and answered her questions. Objective vital signs Vital Sign Date Time Temp Pulse Resp B/P (MAP) Pulse Ox O2 Delivery O2 Flow Rate FiO2 07/20/24 17:37 74 15 126/71 07/20/24 17:00 97.3 100 97.3 07/20/24 08:00 Nasal Cannula* 2 28 Total Intake and Output 07/19/24 07/19/24 07/20/24 15:00 23:00 07:00 Intake Total 200 ml Output Total 100 ml Balance 100 ml medications Current Medications Medications Dose Ordered Sig/Colleen Route Start Time Stop Time Status Last Admin Dose Admin Bacitracin/ Polymyxin B Sulfate 1 applic TID OP 06/27/24 22:00 07/19/24 06:21 1 APPLIC Dextrose 50 ml UD PRN IV 06/28/24 08:00 06/29/24 11:58 50 ML Heparin Sodium/ Dextrose 250 ml @ 13.896 mls/ hr Q18H IV 06/28/24 08:00 UNV Epoetin Eligio-epbx 10,000 unit MWF@2100 SC 06/29/24 21:00 Hold 07/16/24 00:09 10,000 UNIT Artificial Tears 2 drop Q6HP PRN EACHEYE 06/29/24 11:30 Amiodarone HCl 200 mg BID PO 06/30/24 22:00 07/20/24 11:08 200 MG Mexiletine HCl 150 mg Q8HR PO 06/30/24 22:00 07/20/24 13:19 150 MG Acetaminophen 650 mg Q4HP PRN PO 07/03/24 18:00 07/20/24 04:32 650 MG Morphine Sulfate 1 mg Q4HP PRN IV 07/05/24 15:45 07/20/24 17:07 1 MG Pantoprazole Sodium 40 mg DAILY@0600 PO 07/07/24 06:00 07/20/24 06:01 40 MG Ondansetron HCl 4 mg Q6HPRN PRN IV 07/06/24 12:45 07/20/24 16:44 4 MG Albumin Human 100 ml @ 100 mls/hr SHADY PRN IV 07/06/24 19:30 Docusate Sodium 100 mg BIDPRN PRN PO 07/14/24 11:00 Prednisone 10 mg DAILY PO 07/21/24 10:00 Apixaban 2.5 mg BID PO 07/20/24 22:00 Aspirin 81 mg DAILY PO 07/21/24 10:00 Examination General Appearance: Alert, Oriented X3, Cooperative, No acute distress Respiratory: Bilateral basilar lung crackles+ Cardiovascular: Paced rhythm, regular , Normal S1, Normal S2 Abdominal: Normal bowel sounds Extremities: No cyanosis, No edema, Normal pulses, No tenderness/swelling, central line in the left femoral vein Skin: No rashes, excoriations in the lower extremities, LIJ rajesh catheter Neuro: Normal speech, Strength at 4/5 X4 ext, Normal tone, Sensation intact, Cranial nerves 3-12 NL, Reflexes 2+ Psych/Mental Status: Mental status NL, Mood NL laboratory and microbiology Laboratory Tests 07/20/24 11:00 07/18/24 18:20 Test 07/18/24 18:20 Range/Units Serum Glucose 146 H 74-106 mg/dL Microbiology Date/Time Source Procedure Growth Status 07/09/24 14:18 Pleural Fluid Gram Stain - Final Complete 07/09/24 14:18 Pleural Fluid Body Fluid Culture - Final Complete 06/28/24 11:44 Nose MRSA Screen - Final Complete 06/28/24 08:05 Sputum Gram Stain - Final Complete 06/28/24 08:05 Sputum Respiratory Culture - Final Complete 06/28/24 07:55 Blood Blood Culture - Final Staphylococcus epidermidis Complete Problem List/Assessment/Plan Problem List/Assessment/Plan Problem List/Assessment/Plan Neurology: #Acute encephalopathy due s/p cardiac arrest due to VTach/VFib #Patient extubated on 07/05 -patient is awake, alert, oriented, conversant -continue telemetry -Currently on OH 1L -Physical therapy Cardiovascular #Acute on chronic systolic heart failure NYHA III-IV #Cardiac arrest due to VT/VF #History of nonischemic cardiomyopathy #History of myocardial infarction #Severe pulmonary hypertension RVSP 75 mmHg #Atrial fibrillation #NSTEMI type 2 #HFrEF 20% SP AICD/[employer] D/pace #CAD status post 3 stents -amiodarone po -mexiletine po -aspirin 81 mg p.o. daily -07/20/2024 Eliquis 2.5 mg p.o. b.i.d. restarted Respiratory: #Acute hypoxemic respiratory failure due to HFrEF 20% exacerbation #Acute hypoxic hypercapnic respiratory failure #Respiratory acidosis #Bilateral infiltrates on chest x-ray possible aspiration pneumonia / pulmonary edema #Right pleural effusion S/P thoracentesis #Pulmonary embolism ruled out - OH 1L - reduced prednisone from 30 to 10 mg po Gastrointestinal #left hepatic cyst #Transaminitis , resolved #Constipation - docusate Renal/ #ESRD on hemodialysis #Acute kidney injury on ESRD #Hyperkalemia resolved #Hypoalbuminemia #hyponatremia - status post Rajesh catheter to be removal - Nephrology on board - Tunneled dialysis catheter on place Infectious disease: #Shock likely septic due to suspected UTI/aspiration pneumonia #Leukocytosis #Bilateral infiltrates likely due to possible aspiration pneumonia -resolved -daily CBC and CMP Endocrine # Subclinical hypothyroidism Hematology: # Normocytic normochromic anemia status post 4 packed red blood cell transfusion in the setting of ESRD #Thrombocytopenia likely medication induced/due to ESRD #av fistula repair #left subclavian thrombosis - Monitor CBC daily - H&H - restarted apixaban 2.5 mg bid Goals of care/advance care planning Code status ; discussed with the patient >15 minutes PUD prophylaxis: Pantoprazole DVT prophylaxis: Eliquis Line-left femoral central line Plan discussed with Dr. Klein, sister, nursing staff, patient Advance care planning time spent on patient evaluation, chart review, assessment and plan, discussion discussion >35 minutes Plan discussed with: Patient Plan discussed with: Patient, Other (Sister, RN) My Orders My Orders Orders - KEILY GREGG Procedure Category Date Status Time Comprehensive LAB 07/21/24 Verified Metabolic Panel 04:00 Aspirin Tablet PHA 07/21/24 In Process 10:00 Apixaban (Eliquis) PHA 07/20/24 In Process 22:00 Dietary Evaluation Review Comments: 1) Add renal restriction to mechanical soft diet order 2) Initiate Nepro bid 3) Continue to promote PO intake 4) Continue to monitor appetite, labs, and skin integrity Expected Outcomes/Goals: 1) appetite and labs to improve 2) wound to improve 3) f/u in 5 days Date of Service: Jul 20, 2024 Billing Provider: BELTRAN KLEIN MD Common Visit Codes: 45562-[id number] INP/OBS CARE(HIGH) Secondary Visit Codes: 46945-[id number] CARE PLAN 30 MINUTES KEILY GREGG Jul 20, 2024 18:38 BELTRAN KLEIN MD Jul 21, 2024 15:50
[2024-07-20] MEDS: APIXABAN 2.5 MG TAB PO SCH (21:16)
[2024-07-21] VITALS (10 sets, daily range): BP systolic 103–127; BP diastolic 54–96; PULSE 66–75; RESP 15–20; TEMP 97.5–98.2; O2SAT 94–100
[2024-07-21 06:53] LABS: Basophils # (auto) 0 10 ^3/uL (0-0.2); Eosinophils # (auto) 0 10 ^3/uL (0-0.8); Eosinophils % (auto) 0.1 % (0.0-7.0); Lymphocytes # (auto) 0.1 10 ^3/uL (0.4-5.4); Neutrophils # (auto) 4.1 10 ^3/uL (1.6-8.6); Red Blood Cells 2.15 10^6/uL (4.5-5.90)
[2024-07-21 06:56] LABS: Alanine Aminotransferase 25 U/L (7-40); Alkaline Phosphatase 76 U/L (46-116); Anion Gap 9 (5-15); BUN/Creatinine Ratio 9.5 (10.0-20.0); Basophils % (auto) 0.1 % (0.0-2.0); Carbon Dioxide 28 mmol/L (20-31); Glucose 99 mg/dL (74-106); Hematocrit 21.2 % (41.0-53.0); Hemoglobin 7.3 g/dL (13.5-17.5); Lymphocytes % (auto) 2.7 % (10.0-50.0); Magnesium 2.3 mg/dL (1.6-2.6); Mean Corpuscular Hemoglobin 34.1 pg (28.0-32.0); Mean Corpuscular Hgb Conc. 34.5 g/dL (32.0-36.0); Mean Corpuscular Volume 98.8 fL (80.0-100.0); Monocytes # (auto) 0.3 10 ^3/uL (0-1.3); Monocytes % (auto) 7.3 % (0.0-12.0); Neutrophils % (auto) 89.8 % (37.0-80.0); Nucleated Red Blood Cells % 0.2 %; Platelet Count (auto) 63 10^3/uL (140-450); Potassium 4.8 mmol/L (3.5-5.1); Red Cell Distribution Width 23.3 % (11.8-14.3); White Blood Cell 4.6 10^3/uL (4.4-10.8)
[2024-07-21 06:57] LABS: Albumin 3.3 g/dL (3.2-4.8); Bilirubin, Total 0.5 mg/dL (0.2-1.0)
--- NOTE | 2024-07-21 06:57 | DVHPN2 ---
Progress Note - Dictate Date Seen: Jul 21, 2024 Medical Necessity Reason Pt with a Central, PICC or Fol: Yes The following are medically ne: Central Line vital signs Vital Sign Date Time Temp Pulse Resp B/P (MAP) Pulse Ox O2 Delivery O2 Flow Rate FiO2 07/21/24 05:00 98.2 75 18 120/96 (104) 98 98.2 07/20/24 20:00 Nasal Cannula* 2 28 Total Intake and Output 07/20/24 07/20/24 07/21/24 15:00 23:00 07:00 Intake Total 200 ml Output Total 0 ml 0 ml Balance 0 ml 200 ml medications Current Medications Medications Dose Ordered Sig/Colleen Route Start Time Stop Time Status Last Admin Dose Admin Bacitracin/ Polymyxin B Sulfate 1 applic TID OP 06/27/24 22:00 07/19/24 06:21 1 APPLIC Dextrose 50 ml UD PRN IV 06/28/24 08:00 06/29/24 11:58 50 ML Heparin Sodium/ Dextrose 250 ml @ 13.896 mls/ hr Q18H IV 06/28/24 08:00 UNV Epoetin Eligio-epbx 10,000 unit MWF@2100 SC 06/29/24 21:00 Hold 07/16/24 00:09 10,000 UNIT Artificial Tears 2 drop Q6HP PRN EACHEYE 06/29/24 11:30 Amiodarone HCl 200 mg BID PO 06/30/24 22:00 07/20/24 21:17 200 MG Mexiletine HCl 150 mg Q8HR PO 06/30/24 22:00 07/21/24 05:35 150 MG Acetaminophen 650 mg Q4HP PRN PO 07/03/24 18:00 07/20/24 04:32 650 MG Morphine Sulfate 1 mg Q4HP PRN IV 07/05/24 15:45 07/20/24 17:07 1 MG Pantoprazole Sodium 40 mg DAILY@0600 PO 07/07/24 06:00 07/21/24 05:35 40 MG Ondansetron HCl 4 mg Q6HPRN PRN IV 07/06/24 12:45 07/20/24 16:44 4 MG Albumin Human 100 ml @ 100 mls/hr SHADY PRN IV 07/06/24 19:30 Docusate Sodium 100 mg BIDPRN PRN PO 07/14/24 11:00 Prednisone 10 mg DAILY PO 07/21/24 10:00 Apixaban 2.5 mg BID PO 07/20/24 22:00 07/20/24 21:16 2.5 MG Aspirin 81 mg DAILY PO 07/21/24 10:00 laboratory and microbiology Test 07/21/24 05:22 Range/Units Serum Glucose Pending Assessment/Plan Patient is a 64-year-old gentleman who presented on June 27, 2024 for around a week of flu symptoms and upper left swellings. At the time of evaluation, the patient is being managed in unit. He is intubated and not source of history. Information was obtained by reviewing the chart. Reportedly, the patient had missed hemodialysis quite a few times before presentation as he felt sick. It is reported that he did have flu-like symptoms, eye congestion and diarrhea prior to presentation. While being managed on the floor, patient was found to be nonresponsive and was coded. There is no detailed information about the time of the code. There is question about PEA. The patient was intubated and was b rought to the unit. Patient was seen by on-call ship carpenter at that point. At this point, we are called for Cardiology as the patient is known to us from before. There is no report of actual chest pain. It is of note that serial troponin has been negative. There is no available telemetry at the time of the episode. Is also of note that the patient does have BiV-ICD from before. Presently, the patient is admitted with septic shock. Patient was in the hospital around a month ago. And was managed for acute on chronic systolic heart failure, pancytopenia and pleural effusions (for which had pleurocentesis). He should have been on Eliquis as outpatient. No JVD. Mucosa is pink and wet. No carotid bruit. Lungs: Scattered rhonchi in the lungs is heard. Cardiac: Regular, systolic murmur 3/6 in the apex is heard. The site for ICD implantation looks clean with no erythema/ecch ymosis/tenderness. Abdomen is soft. Bowel sound is positive. Extremities reveal 2+ edema bilaterally. AV fistula in the right upper extremity with thrill was observed. Left neck access has been removed. 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 Echocardiogram of April 08, 2024 had reported four-chamber dilatation, ejection fraction of 20%, vjin-ir-[id number] MR/TR and right ventricular systolic pressure of 75 mm Hg Echocardiogram of May 19, 2024 had reported four-chamber dilatation, ejection fraction of 35%, D shaped septum, pulmonary hypertension, mobile interatrial septum, jvwj-xl-ckrrsmxa aortic insufficiency, mild mitral regurgitation, moderate TR and right ventricular systolic pressure of 80 mm Hg Troponin (high sensitive) 40 - 41 - 40 BNP: 2509.04 D-Dimer: 4.72 Digoxin: <0.14 Chest x-ray reported: FINDINGS: LUNGS AND PLEURAL SPACES: See below. HEART: Cardiomegaly with moderate congestion. Left cardiac. MEDIASTINUM: Unremarkable. Normal mediastinal contour. BONES/JOINTS: Unremarkable. No acute fracture. OTHER FINDINGS: . . . .. IMPRESSION: Cardiomegaly with moderate congestion. Repeat chest x-ray reported: Medical devices: The ETT ends above the level of elizabeth at the level of clavicular heads. The enteric tube extends to the stomach. Multi lead left upper chest wall AICD with leads extending to the cardiac chambers. Cardiomediastinal: The heart is moderately enlarged. Pulmonary vasculature is prominent. Atherosclerotic calcification of the aortic arch noted. Lungs: There is interval enlargement of now moderate-sized right pleural effusion and interval development of patchy consolidation in the right middle and left upper lung zone. Small opacities are noted in the left lung base. Diffuse bilateral interstitial opacities are noted. No pneumothorax. Bones/soft tissues: No acute abnormality is noted. Right subclavian vascular stents noted. IMPRESSION: 1. Worsening CHF with moderate right pleural effusion , interval development of extensive bilateral interstitial opacities and large patchy multifocal bilateral consolidations that may represent edema or pneumonia. Recommend clinical and biochemical correlation. Repeat chest xry reported: IMPRESSION: 1. Right basilar atelectasis or pneumonia. 2. Cardiomegaly with mild congestion. Repeat chest xry reported: IMPRESSION: 1. Right basilar atelectasis or pneumonia. Small bilateral pleural effusions. 2. Cardiomegaly with mild congestion. 3. Endotracheal tube now projects 6 cm above level the elizabeth in appropriate position. Repeat chest xry reported: IMPRESSION: 1. Cardiomegaly with pulmonary congestion and edema. Superimposed pneumonia cannot be excluded. 2. Right pleural effusion. Repeat chest xry reported: FINDINGS: VERTEBRAE: Unremarkable. No acute fracture. Normal alignment. No instability. DISC SPACES: No acute findings. No significant narrowing. SOFT TISSUES: Unremarkable. HEART: Left cardiac. Mild congestive heart failure. TUBES, LINES AND DEVICES: Enteric tube tip in the stomach. The endotracheal tube (ETT) is in satisfactory position. OTHER FINDINGS: . ... IMPRESSION: Mild congestive heart failure. Repeat chest xry revealed: IMPRESSION: Cardiomegaly with moderate congestion. Repeat chest xry revealed: IMPRESSION: 1. Mechanical ventilation with tubes and lines as above. 2. Right basilar infiltrate and effusion, improved. 3. Cardiomegaly. Repeat chest xry revealed: IMPRESSION: 1. Biventricular pacemaker in place 2. Bibasilar infiltrates right pleural effusion. Right pleural effusion appears to have slightly increased. This may be secondary to patient positioning. 3. Right subclavian stent in place unchanged from 07/04/2024.. Repeat chest xry revealed: Lines and Tubes: Left chest wall AICD. Left central venous catheter in satisfactory position. Lungs: Patchy bilateral airspace opacities. Pleura: Small bilateral pleural effusions, tejqx-gxgwkec-ccix-left. No pneumothorax. Cardiomediastinal contours: Unremarkable Bones: Unremarkable IMPRESSION: Unchanged fluid overload. Repeat chest xry revealed: Lines and Tubes: Left chest wall AICD. Left central venous catheter in satisfactory position. Lungs: Mild congestion Pleura: Small right pleural effusion. No pneumothorax. Cardiomediastinal contours: Cardiomegaly Bones: Unremarkable IMPRESSION: Small right pleural effusion. Repeat chest xry revealed: IMPRESSION: Cardiomegaly with small bilateral pleural effusions and bibasilar opacities. Repeat chest xry revealed: IMPRESSION: Small right pneumothorax. Cardiomegaly with left lower lung consolidative opacity. Interval decrease in right pleural effusion compared to prior exam. Critical Result: Pneumothorax Repeat chest xry revealed: IMPRESSION: Interval resolution of previously seen right pneumothorax. Pulmonary edema. Small left pleural effusion. Chest ultrasound revealed: Findings/Impression: Moderate to large right pleural effusion. No left pleural effusion. Thoracentesis (07/09/2024): IMPRESSION: Ultrasound guided RIGHT thoracentesis. Venous duplex of left upper ext (07/09/2024): Impression: Thrombus in the left subclavian vein If clinical concern/symptoms persist or worsen, short-interval follow-up study is suggested. Upper ext (right) arterial duplex reported: IMPRESSION: 1. The right upper extremity brachial-cephalic AVF is thrombosed. 2. The right axillary stent is thrombosed. 3. The arteries of the right upper extremity including subclavian, axillary, brachial, radial and ulnar arteries are patent. Repeat Upper ext (right) arterial duplex reported: IMPRESSION: Thrombus is seen at the mid and distal aspect of right upper extremity fistula. Thrombus is seen in the cephalic vein. Vascular surgery consultation recommended. CTA of lungs revealed: IMPRESSION: 1. No pulmonary embolism. 2. Large right and small left pleural effusion with associated bilateral atelectasis and consolidation. Patchy ground-glass opacities could represent pulmonary edema or an infectious / inflammatory process. Mediastinal lymphadenopathy similar to prior. Clinical correlation and continued follow-up is recommended. Overall appearance is worse compared to prior exam. CT of head reported: 1. No acute intracranial pathology. Cortical atrophy greater on the left. EKG revealed paced rhythm Telemetry revealed paced rhythm (it is of note that telemetry rhythm at the time of the code is not available to revealed) Echocardiogram reported: limited study. lvef 20% by visual estimate. postop septum. septum flattening noted. RV enlarged with dysfunction. biatrial enlargement. valves not assessed Med[employer] ICD interrogation revealed: Remaining longevity of battery: 3.8 years; DDDR: 60/130; Pacing impedance: A 380 /RV 323/LV 304 Ohms; Shock impedance: RV 29 Ohms; Capture threshold: Atrial 0.5/RV 0.875 volts at 0.4 milliseconds; Program sensitivity: Atrial 0.3/RV 0.3 mV; Episodes: VT/VF: 1 resulting in shock; Changes performed: VTE detection interval was changed from 270 millisecond to 320 millisecond/VT detection interval was changed from 330 millisecond to 400 milliseconds Cardiac cath performed: Diagnosis: Nonobstructive coronary artery disease; Patent stents in mid LAD/proximal RCA/distal RCA; Negative FFR of 50% lesion in mid LAD; LVEDP of 10 mm Hg; Cardiac suggestions for management: Optimized med ical therapy; Guideline directed medical therapy for systolic heart failure; Lifestyle and risk factor modification Patient is a 64-year-old gentleman who presented with flu-like symptoms, but later coded in the floor. No tele rhythm of the time of the code was available to review (at first). Reportedly there was PA. Stable serial high sensitive troponin is against acute coronary syndrome. Patient does have baseline history of heart failure and pulmonary hypertension. He also has Bi V ICD (interrogati on revealed episode of v-fib/v-tach resulting in Defibrillation). Does have baseline history of noncompliance to medication/hemodialysis. Does have baseline history of pancytopenia and is found to have significant anemia. With respiratory failure and on vent support. Case discussed with Electrophysiology (Dr Tamayo). Acute arrest Rule out PA Questionable encephalopathy, anoxic versus toxic? Recent URI Septic shock s/p Defibrillation secondary to V-fib/Vtach Encephalopathy Baseline pulmonary hypertension Baseline systolic heart failure Status post Bi V ICD End-stage renal disease, Noncompliant with medication, followups and hemodialysis Pancytopenia History of GI bleeding Right pleural effusion s/p Right AV fistula thrombectomy central angioplasty and peripheral venous angioplasty by Vascular surgeon s/p thoracentesis resulting in pneumothorax DVT of left subclavian vein, line removed Cardiac suggestion for management: Manage in telemetry Follow-up electrolytes and kidney function tests and correct abnormalities On Amiodarone and Mexiletine Optimized medical therapy; Guideline directed medical therapy for systolic heart failure Anticoagulation as per primary team (recent DVT of left subclavian vein). Patient is on Eliquis As patient is on Eliquis, no need for ASA Pulmonary follow up is advised. Management of right upper ext DVT as per primary team and vascular Further evaluation and management depends on the above and clinical course A total of 55 minutes was spent reviewing the patient record, examining the patient, making a diagnostic and therapeutic plan, discussing this plan with medical personnel, following up on diagnostic studies and following the patient for clinical stability excluding any and all procedures. At least 50% of this time was spent in direct, gezt-ie-jyhy contact. Thank you for allowing me to participate in this patient's care. Further recommendations will depend on patient's clinical course. Please do not hesitate to contact me if you have any questions or concerns. This medical document was created using electronic medical record system with [employer] computerized dictation system. Although this document has been carefully reviewed, there may still be some phonetic and typographical errors. These areas are purely typographical due to the imperfection of the software programs, and do not reflect any compromise in the patient's medical care. Dietary Evaluation Review Comments: 1) Add renal restriction to mechanical soft diet order 2) Initiate Nepro bid 3) Continue to promote PO intake 4) Continue to monitor appetite, labs, and skin integrity Expected Outcomes/Goals: 1) appetite and labs to improve 2) wound to improve 3) f/u in 5 days Plan discussed with: Patient, Other (nurse) SUSHMA WALKER MD Jul 21, 2024 06:57
[2024-07-21 07:10] LABS: Aspartate Aminotransferase < 8 U/L (13-40); Blood Urea Nitrogen 58 mg/dL (9-23); Chloride 92 mmol/L (98-107); Sodium 129 mmol/L (136-145); Total Protein 5.3 g/dL (5.7-8.2)
[2024-07-21] MEDS: predniSONE 20 MG TAB PO SCH (08:33)
[2024-07-21] MEDS ORDERED: ASPirin 81 mg TAB PO SCH (10:00)
--- NOTE | 2024-07-21 11:47 | DVHPN2 ---
Progress Note Medical Necessity Reason Pt with a Central, PICC or Fol: Yes The following are medically ne: Central Line Objective vital signs Vital Sign Date Time Temp Pulse Resp B/P (MAP) Pulse Ox O2 Delivery O2 Flow Rate FiO2 07/21/24 09:00 97.6 70 20 121/63 (82) 98 97.6 07/20/24 20:00 Nasal Cannula* 2 28 Total Intake and Output 07/20/24 07/20/24 07/21/24 15:00 23:00 07:00 Intake Total 200 ml Output Total 0 ml 0 ml Balance 0 ml 200 ml medications Current Medications Medications Dose Ordered Sig/Colleen Route Start Time Stop Time Status Last Admin Dose Admin Bacitracin/ Polymyxin B Sulfate 1 applic TID OP 06/27/24 22:00 07/19/24 06:21 1 APPLIC Dextrose 50 ml UD PRN IV 06/28/24 08:00 06/29/24 11:58 50 ML Heparin Sodium/ Dextrose 250 ml @ 13.896 mls/ hr Q18H IV 06/28/24 08:00 UNV Epoetin Eligio-epbx 10,000 unit MWF@2100 SC 06/29/24 21:00 Hold 07/16/24 00:09 10,000 UNIT Artificial Tears 2 drop Q6HP PRN EACHEYE 06/29/24 11:30 Amiodarone HCl 200 mg BID PO 06/30/24 22:00 07/21/24 08:33 200 MG Mexiletine HCl 150 mg Q8HR PO 06/30/24 22:00 07/21/24 05:35 150 MG Acetaminophen 650 mg Q4HP PRN PO 07/03/24 18:00 07/20/24 04:32 650 MG Morphine Sulfate 1 mg Q4HP PRN IV 07/05/24 15:45 07/20/24 17:07 1 MG Pantoprazole Sodium 40 mg DAILY@0600 PO 07/07/24 06:00 07/21/24 05:35 40 MG Ondansetron HCl 4 mg Q6HPRN PRN IV 07/06/24 12:45 07/21/24 08:33 4 MG Albumin Human 100 ml @ 100 mls/hr SHADY PRN IV 07/06/24 19:30 Docusate Sodium 100 mg BIDPRN PRN PO 07/14/24 11:00 Prednisone 10 mg DAILY PO 07/21/24 10:00 07/21/24 08:33 10 MG Apixaban 2.5 mg BID PO 07/20/24 22:00 07/21/24 08:33 2.5 MG laboratory and microbiology Laboratory Tests 07/21/24 05:22 Test 07/21/24 05:22 Range/Units Serum Glucose 99 74-106 mg/dL Microbiology Date/Time Source Procedure Growth Status 07/09/24 14:18 Pleural Fluid Gram Stain - Final Complete 07/09/24 14:18 Pleural Fluid Body Fluid Culture - Final Complete 06/28/24 11:44 Nose MRSA Screen - Final Complete 06/28/24 08:05 Sputum Gram Stain - Final Complete 06/28/24 08:05 Sputum Respiratory Culture - Final Complete 06/28/24 07:55 Blood Blood Culture - Final Staphylococcus epidermidis Complete Problem List/Assessment/Plan Problem List/Assessment/Plan Problem List/Assessment/Plan Neurology: #Acute encephalopathy due s/p cardiac arrest due to VTach/VFib #Patient extubated on 07/05 -patient is awake, alert, oriented, conversant -continue telemetry -Currently on NC 1L -Physical therapy Cardiovascular #Acute on chronic systolic heart failure NYHA III-IV #Cardiac arrest due to VT/VF #History of nonischemic cardiomyopathy #History of myocardial infarction #Severe pulmonary hypertension RVSP 75 mmHg #Atrial fibrillation #NSTEMI type 2 #HFrEF 20% SP AICD/FAMILY DENTIST D/pace #CAD status post 3 stents -amiodarone po -mexiletine po -aspirin 81 mg p.o. daily -07/20/2024 Eliquis 2.5 mg p.o. b.i.d. restarted Respiratory: #Acute hypoxemic respiratory failure due to HFrEF 20% exacerbation #Acute hypoxic hypercapnic respiratory failure #Respiratory acidosis #Bilateral infiltrates on chest x-ray possible aspiration pneumonia / pulmonary edema #Right pleural effusion S/P thoracentesis #Pulmonary embolism ruled out - NC 1L - reduced prednisone from 30 to 10 mg po Gastrointestinal #left hepatic cyst #Transaminitis , resolved #Constipation - docusate Renal/ #ESRD on hemodialysis #Acute kidney injury on ESRD #Hyperkalemia resolved #Hypoalbuminemia #hyponatremia - status post Rajesh catheter to be removal - Nephrology on board - Tunneled dialysis catheter on place Infectious disease: #Shock likely septic due to suspected UTI/aspiration pneumonia #Leukocytosis #Bilateral infiltrates likely due to possible aspiration pneumonia -resolved -daily CBC and CMP Endocrine # Subclinical hypothyroidism Hematology: # Normocytic normochromic anemia status post 4 packed red blood cell transfusion in the setting of ESRD #Thrombocytopenia likely medication induced/due to ESRD #av fistula repair #left subclavian thrombosis - Monitor CBC daily - H&H - restarted apixaban 2.5 mg bid Goals of care/advance care planning Code status ; discussed with the patient >15 minutes PUD prophylaxis: Pantoprazole DVT prophylaxis: Eliquis Line-left femoral central line Plan discussed with Dr. Zhong, sister, nursing staff, patient Advance care planning time spent on patient evaluation, chart review, assessment and plan, discussion discussion >35 minutes Plan discussed with: Patient My Orders My Orders Orders - KEILY GREGG Procedure Category Date Status Time Apixaban (Eliquis) PHA 07/20/24 In Process 22:00 Renal DIET 07/21/24 Transmitted Standard(2gna,3gk,Lopho) Breakfast Packedcell-Noactive BBK 07/21/24 Logged Bleeding 08:13 Discharge DISCHARGE 07/21/24 Transmitted 11:37 Dietary Evaluation Review Comments: 1) Add renal restriction to mechanical soft diet order 2) Initiate Nepro bid 3) Continue to promote PO intake 4) Continue to monitor appetite, labs, and skin integrity Expected Outcomes/Goals: 1) appetite and labs to improve 2) wound to improve 3) f/u in 5 days KEILY GREGG Jul 21, 2024 11:47
--- NOTE | 2024-07-21 11:53 | DVHDSRES ---
Discharge Summary Date of Admission Resident Creating Document: KEILY GREGG RESIDENT Jun 27, 2024 at 17:07 Date of Discharge: Jul 21, 2024 Admitting Diagnosis Acute hypoxic respiratory failure and acute metabolic encephalopathy due to cardiac arrest likely due to VT/VF Labs/Diagnostic Data: Laboratory Results Test 07/21/24 05:22 07/19/24 03:44 07/18/24 18:20 07/17/24 12:00 White Blood Count 4.6 10^3/uL (4.4-10.8) Red Blood Count 2.15 10^6/uL (4.5-5.90) Hemoglobin 7.3 g/dL (13.5-17.5) Hematocrit 21.2 % (41.0-53.0) Mean Corpuscular Volume 98.8 fL (80.0-100.0) Mean Corpuscular Hemoglobin 34.1 pg (28.0-32.0) Mean Corpuscular Hemoglobin Concent 34.5 g/dL (32.0-36.0) Red Cell Distribution Width 23.3 % (11.8-14.3) Platelet Count 63 10^3/uL (140-450) Mean Platelet Volume 7.9 fL (6.9-10.8) Neutrophils (%) (Auto) 89.8 % (37.0-80.0) Lymphocytes (%) (Auto) 2.7 % (10.0-50.0) Monocytes (%) (Auto) 7.3 % (0.0-12.0) Eosinophils (%) (Auto) 0.1 % (0.0-7.0) Basophils (%) (Auto) 0.1 % (0.0-2.0) Neutrophils # (Auto) 4.1 10 ^3/uL (1.6-8.6) Lymphocytes # (Auto) 0.1 10 ^3/uL (0.4-5.4) Monocytes # (Auto) 0.3 10 ^3/uL (0-1.3) Eosinophils # (Auto) 0 10 ^3/uL (0-0.8) Basophils # (Auto) 0 10 ^3/uL (0-0.2) Nucleated Red Blood Cells 0.2 % Sodium Level 129 mmol/L (136-145) Potassium Level 4.8 mmol/L (3.5-5.1) Chloride Level 92 mmol/L (98-107) Carbon Dioxide Level 28 mmol/L (20-31) Anion Gap 9 (5-15) Blood Urea Nitrogen 58 mg/dL (9-23) Creatinine 6.13 mg/dL (0.700-1.30) Glomerular Filtration Rate Calc 9 mL/min (>90) BUN/Creatinine Ratio 9.5 (10.0-20.0) Serum Glucose 99 mg/dL (74-106) Calcium Level 9.0 mg/dL (8.7-10.4) Magnesium Level 2.3 mg/dL (1.6-2.6) Total Bilirubin 0.5 mg/dL (0.2-1.0) Aspartate Amino Transferase (AST) < 8 U/L (13-40) Alanine Aminotransferase (ALT) 25 U/L (7-40) Alkaline Phosphatase 76 U/L (46-116) Total Protein 5.3 g/dL (5.7-8.2) Albumin 3.3 g/dL (3.2-4.8) Prothrombin Time 12.4 sec (9.3-11.8) Prothrombin Time INR 1.19 (0.9-1.15) Activated Partial Thromboplast Time 32.0 SEC (24.5-34.5) Hepatitis B Surface Antibody Negative (Negative) Hepatitis B Core Total Antibody Negative (Negative) Differential Total Cells Counted 100.0 (100) Neutrophils % (Manual) 81 (37.0-80.0) Band Neutrophils % (Manual) 4 Lymphocytes % (Manual) 3 (10.0-50.0) Monocytes % (Manual) 11 (0-12) Eosinophils % (Manual) 1 (0-7) Basophils % (Manual) 0 (0.0-2.0) Metamyelocytes % (manual) 0 Myelocytes % (Manual) 0 Promyelocytes % (Manual) 0 Blast Cells % (Manual) 0 Reactive Lymphocytes 0 Platelet Estimate Decreased Anisocytosis (manual) Moderate Test 07/15/24 14:38 07/15/24 13:17 07/10/24 05:11 07/09/24 19:27 Troponin I High Sensitivity 59 ng/L (</=54) Blood Gas Specimen Type Arterial Blood Gas Sample Site Left radial Blood Gas Patient Temperature 37.0 Arterial Blood Date Drawn [id number] Arterial Blood pH 7.331 (7.350-7.450) Arterial Blood Partial Pressure CO2 49.1 mmHg (35.0-48.0) Arterial Blood Partial Pressure O2 72.7 mmHg (83.0-108.0) Arterial Blood HCO3 25.4 mmol/L (21.0-28.0) Arterial Blood Oxygen Saturation 92.5 % (94.0-98.0) Arterial Blood Base Excess -0.8 mmol/L (-2.0-3.0) Arterial Blood Oxyhemoglobin 91.9 % (94.0-98.0) Arterial Blood Carboxyhemoglobin 0.2 % (0.5-1.5) Arterial Blood Methemoglobin 0.4 % (0.0-1.5) Chilo Test Yes Blood Gas Total Hemoglobin 10.40 g/dL (13.5-17.5) Blood Gas Liter Flow 2.00 Blood Gas Modality Nasal cannula FiO2 % 28.0 Phosphorus Level 3.6 mg/dL (2.4-5.1) Vitamin D 25-Hydroxy 30.6 ng/mL (30.0-100) Blood Gas Comments Test 07/09/24 14:18 07/09/24 13:23 07/08/24 23:27 07/08/24 15:20 Body Fluid Source Pleural fluid Body Fluid pH 7.0 Body Fluid WBC (Manual) 100 CUMM (0-200) Body Fluid RBC (Manual) 460 CUMM (0-2000) Body Fluid Mononuclear Cells 90 % Body Fluid Polymorphonuclear Cells 10 % (0-25) Body Fluid Glucose 117 mg/dL (.) Body Fluid Total Protein 3.5 g/dL (.) Body Fluid Lactate Dehydrogenase 119 IU/L (.) Blood Gas Set Respiration Rate 14.0 Blood Gas Spontaneous Tidal Volume 872 Blood Gas EPAP 5 Blood Gas IPAP 15 Blood Gas Tidal Volume 513.0 Specimen Drawn By Blood Gas Critical Value Read Back Yes Blood Gas Notified Whom Blood Gas Notified Time [id number] Blood Gas Notified By Lactic Acid Level 1.2 mmol/L (0.4-2.0) Test 07/07/24 05:16 07/05/24 17:33 07/05/24 09:28 06/29/24 10:45 Iron Level 56 ug/dL (65-175) Total Iron Binding Capacity 173 ug/dL (250-425) Percent Iron Saturation 32.4 % (20-55) Ferritin 463.1 ng/mL (22-322) Random Vancomycin Level 29.3 ug/mL (5-10) POC Glucose 85 mg/dl (70-106) Blood Gas Pressure Support 8 Blood Gas PEEP or CPAP 5.0 D-Dimer, Quantitative 4.72 mg/L FEU (0.0-0.49) Thyroid Stimulating Hormone (TSH) 10.73 uIU/mL (0.55-4.78) Digoxin Level < 0.14 ng/mL (0.8-2) Test 06/29/24 04:30 06/28/24 16:20 06/28/24 07:55 06/27/24 16:15 Free Thyroxine (T4) Calculated 0.97 ng/dL (0.89-1.76) Free Triiodothyronine (T3) pg/mL 0.83 pg/mL (2.3-4.2) Blood Gas Spontaneous Rate 20 Hepatitis A IgM Antibody Negative Hepatitis B Surface Antigen Negative (Negative) Hepatitis B Core IgM Antibody Negative (Negative) Hepatitis C Antibody Negative (Negative) Influenza Type A Antigen Negative (Negative) Influenza Type B Antigen Negative (Negative) SARS-CoV-2 Antigen (Rapid) Negative (NEGATIVE) Test 06/27/24 10:45 Stomatocytes Few B-Type Natriuretic Peptide 2509.04 pg/mL (0-100) Other Laboratory Tests 07/21/24 05:22 Brief Hx & Hospital Course: HPI-patient is 64-year-old male patient with a history of nonischemic cardiomyopathy, chronic systolic heart failure, hypertension, hyperlipidemia, type 2 diabetes mellitus, prior myocardial infarction, pulmonary hypertension, end-stage renal disease on hemodialysis, who presented on June 27 with 1 week history of flu-like symptoms, upper respiratory illness and progressive weakness. The patient has been several hemodialysis sessions before admission and was reportedly found lying on the floor, cyanotic and unresponsive, on arrival the patient was intubated for respiratory failure and transported to the hospital. On ICU admission the patient was noted to be hemodynamically unstable requiring vasopressor support with norepinephrine and was deeply comatose, unresponsive to verbal or painful stimuli with a fixed nonreactive pupils and absent brainstem reflexes raising concern for severe anoxic brain injury. Cardiology was consulted due to the patient's history of heart failure, prior medical infarction and no pulmonary hypertension, echocardiogram from May 19, 2024 showed severe be ventricular dysfunction with left ventricular ejection fraction 35%, severe pulmonary hypertension with RVSP 75 mmHg, moderate mitral and aortic regurgitation and chronic volume overload. On admission the patient was to have bilateral pulmonary congestion with a fist crackles 1 inhalation which has imaging revealing bilateral infiltrates and pulmonary congestion concerning for volume overload versus aspiration pneumonia. There was no evidence of/pleural effusion or pneumothorax at that time.Additionally he was found to have worsening acute kidney injury (creatinine 3.58, BUN 52) severe metabolic and respiratory acidosis ABG pH 7.25, HC 0 3 13.9, lactate 14.5 and leukocytosis with blood cell count 22.1 raising suspicion for infectious process urinalysis showed leukocyte 3+, white blood cell count 101 and bacteria suggestive for possible urinary tract infection as a contributing source of sepsis. Given the high suspicion of sepsis with multisystemic organ dysfunction shock ALLI metabolic acidosis respiratory failure altered mental status the patient was started on broad-spectrum antibiotics with Zosyn vancomycin vasopressor support and mechanical ventilation. Echo on 06/29/2014 revealed-LVEF 20%, septal flattening, right ventricular enlargement with dysfunction, biatrial enlargement. Hospital course-patient came to the hospital due to flu-like symptoms and shortness of breaths. Patient was admitted to the hospital due to acute hypoxic respiratory failure and COVID pneumonia. Patient was intubated on arrival due to respiratory failure. Patient was treated with IV antibiotic with the other medications. Patient's symptoms improved. Patient was extubated on 06/2024.On 06/29/2024- CT angio showed no pulmonary embolism but a large right and small left pleural effusion with associated bilateral atelectasis and consolidation. Patchy ground-glass opacities could represent pulmonary edema or an infectious / inflammatory process. Mediastinal lymphadenopathy similar to prior. Overall appearance is worse compared to prior exam. 06/29/24 CT head : No acute intracranial pathology. Cortical atrophy greater on the left. 07/01/2024 Quintoin catheter was placed . 07/05/2024-patient was extubated On 07/09/2024- Doppler study of the left upper extremity revealed thrombus in the left subclavian vein. Patient was seen by business editor. On 07/09/20243193-[id number] thoracentesis removed 1.3 L of straw-colored fluid.. 07/10/2024-Doppler study of the right upper extremity revealed-Thrombus is seen at the mid and distal aspect of right upper extremity fistula. Thrombus is seen in the cephalic vein. 07/17/24 tunneled catheter placed the right axillary vein. Patient was also followed by pot filler. Patient initially had going to an catheter later on replaced by tunneled catheter on 07/17/2024 in the right axillary vein. During hospital course patient required 5 units of blood transfusion. Patient had failed AV fistula repair. Patient also got several round of hemodialysis as per pot filler recommendation during hospitalization. As because patient has right upper arm AV fistula clogged pot filler recommended to follow up with the outpatient vascular surgeon for further care of the AV fistula. Patient is being discharged to post acute care to [facility]. Patient was advised to follow up with the primary care physician in 1 week, pot filler in 1-2 weeks as per schedule and also to follow up with the rib chopper in 1-2 weeks. Patient was hemodynamically stable on discharge. time spent in discharge planning was 41 mins Operations or Procedures [place] [id number] Ph: [phone] DIAGNOSTIC IMAGING Diagnostic Imaging Report : [id number] Signed PATIENT: SUSHMA THAYER ACCT: [id number] UNIT: [id number] : 1960 LOC: ER ROOM / BED: / AGE / SEX: 64 / M ADM STATUS: REG ER SERVICE 1054 ORDERING PHYSICIAN: YAJAIRA VIVEROS MD PROCEDURE(s): CXRP - CHEST PORTABLE REASON: chf ORDER NUMBER(s): [id number], ACCESSION NUMBER(s): [id number] EXAM: XR Chest, 1 View CLINICAL INDICATION: chf TECHNIQUE: Frontal view of the chest. COMPARISON: XY CHEST PORTABLE on DOS: 05/19/24, XY CHEST PORTABLE on DOS: 05/18/24, XY CHEST PORTABLE on DOS: 04/26/24, XY CHEST PORTABLE on DOS: 04/25/24, XY CHEST PORTABLE on DOS: 04/24/24 FINDINGS: LUNGS AND PLEURAL SPACES: See below. HEART: Cardiomegaly with moderate congestion. Left cardiac. MEDIASTINUM: Unremarkable. Normal mediastinal contour. BONES/JOINTS: Unremarkable. No acute fracture. OTHER FINDINGS: . . . .. IMPRESSION: Cardiomegaly with moderate congestion. ATED BY: SUSHMA COLLINS MD DICTATED DATE/TIME: 06/27/241117 SIGNED BY: SUSHMA COLLINS MD SIGNED DATE/TIME: 06/27/241117 CC: [place] [id number] Ph: [phone] DIAGNOSTIC IMAGING Diagnostic Imaging Report : [id number] Signed PATIENT: SUSHMA THAYER ACCT: [id number] UNIT: [id number] : 1960 LOC: [facility] ROOM / BED: [address] [place] [address] AGE / SEX: 64 / M ADM STATUS: ADM IN SERVICE 6 ORDERING PHYSICIAN: SHADE GUTIERREZ DNP PROCEDURE(s): CXRP - CHEST PORTABLE REASON: post intubation/ngt placement ORDER NUMBER(s): [id number], ACCESSION NUMBER(s): [id number] Procedure: XY CHEST PORTABLE 06/28/2024 08:47 AM Indication: post intubation/ngt placement Comparison: XY CHEST PORTABLE on DOS: 06/27/24, XY CHEST PORTABLE on DOS: 05/19/24, XY CHEST PORTABLE on DOS: 05/18/24 TECHNIQUE: XY CHEST PORTABLE FINDINGS: Medical devices: The ETT ends above the level of elizabeth at the level of clavicular heads. The enteric tube extends to the stomach. Multi lead left upper chest wall AICD with leads extending to the cardiac chambers. Cardiomediastinal: The heart is moderately enlarged. Pulmonary vasculature is prominent. Atherosclerotic calcification of the aortic arch noted. Lungs: There is interval enlargement of now moderate-sized right pleural effusion and interval development of patchy consolidation in the right middle and left upper lung zone. Small opacities are noted in the left lung base. Diffuse bilateral interstitial opacities are noted. No pneumothorax. Bones/soft tissues: No acute abnormality is noted. Right subclavian vascular stents noted. IMPRESSION: 1. Worsening CHF with moderate right pleural effusion , interval development of extensive bilateral interstitial opacities and large patchy multifocal bilateral consolidations that may represent edema or pneumonia. Recommend clinical and biochemical correlation. ATED BY: VEE LAWSON MD DICTATED DATE/TIME: 06/28/24914 SIGNED BY: VEE LAWSON MD SIGNED DATE/TIME: 06/28/24914 CC: [place] [id number] Ph: [phone] DIAGNOSTIC IMAGING Diagnostic Imaging Report : [id number] Signed PATIENT: SUSHMA THAYER ACCT: [id number] UNIT: [id number] : 1960 LOC: ICU CENTRL ROOM / BED: [facility] / A AGE / SEX: 64 / M ADM STATUS: ADM IN SERVICE 1213 ORDERING PHYSICIAN: SUSHMA WALKER MD PROCEDURE(s): CTACH - CT ANGIO CHEST CONTRAST REASON: Rule out (PE) Pulmonary Emboli ORDER NUMBER(s): [id number], ACCESSION NUMBER(s): [id number] CTA Chest with intravenous contrast INDICATION: Rule out (PE) Pulmonary Emboli COMPARISON: CT CT ANGIO CHEST CONTRAST on DOS: 05/19/24 TECHNIQUE: Multidetector spiral CTA of the chest was performed of the chest with intravenous contrast. PULMONARY ANGIOGRAPHY PROTOCOL was utilized using a bolus- tracking technique centered on the main pulmonary artery. Axial, coronal and sagittal multiplanar and MIP reformats were performed. CONTRAST: Type of contrast: Omni 350 Contrast injected: 100 ml Radiation dose : Chest: CTDI volume is 23.99 mGy. Dose-length product is 874.01 mGy*cm The dose indicators for CT are the volume computed Tomography (CT) dose Index (CTDIvol) and the dose Length product (DLP), and are measured in units of mGy and mGy-cm, respectively. These indicators are not patient dose, but values generated from the CT scanner acquisition factors. The report includes radiation exposure data for exposures received during this examination. Findings: Pulmonary artery: No pulmonary embolism Lower neck: Endotracheal tube and nasogastric tube in place. Lungs: Large right and small left pleural effusions with associated bilateral atelectasis and consolidation . Patchy ground-glass opacities in both lungs. Heart/Vascular Structures: Moderate cardiomegaly. Trace pericardial effusion. Lymph Nodes: Mediastinal lymphadenopathy. Pleura: Bilateral pleural effusions right greater than left as above. Musculoskeletal: No acute osseous abnormality. Soft tissues: Normal. Upper abdomen: Left hepatic cyst. IMPRESSION: 1. No pulmonary embolism. 2. Large right and small left pleural effusion with associated bilateral atelectasis and consolidation. Patchy ground-glass opacities could represent pulmonary edema or an infectious / inflammatory process. Mediastinal lymphadenopathy similar to prior. Clinical correlation and continued follow-up is recommended. Overall appearance is worse compared to prior exam. HS:Y ATED BY: NOMAN THOMAS MD DICTATED DATE/TIME: 06/29/241725 SIGNED BY: NOMAN THOMAS MD SIGNED DATE/TIME: 06/29/241725 CC: [place] [id number] Ph: [phone] DIAGNOSTIC IMAGING Diagnostic Imaging Report : [id number] Signed PATIENT: SUSHMA THAYER ACCT: [id number] UNIT: [id number] : 1960 LOC: ICU CENTRL ROOM / BED: [address] [place] [address] AGE / SEX: 64 / M ADM STATUS: ADM IN SERVICE 20 ORDERING PHYSICIAN: JAY DODSON RESIDENT PROCEDURE(s): HWOCT - HEAD WITHOUT CONTRAST REASON: rule out CT ORDER NUMBER(s): [id number], ACCESSION NUMBER(s): [id number] CT brain without contrast CLINICAL INDICATION: Altered mental status FINDINGS: The study was performed in a multidetector scanner. This study performed taking axial images from the skull base up to the vertex. Both brain and bone windows are photographed. Dose lowering techniques have been used including automated exposure control and adjustment of mA and/or KV according to patient size. The cortical sulcal markings are prominent especially on the left. There are no areas of intraparenchymal hemorrhage or edema. No extra-axial fluid collections No hydrocephalus or midline shift. On bone windows there are no skull fractures. Mucosal thickening is present in the right maxillary sinus IMPRESSION: 1. No acute intracranial pathology. Cortical atrophy greater on the left. Computed Tomographic Radiation Dosimetry Report: Total CTDI vol = 61 mGy Total DLP = 1207 mGy-cm All CT scans at this medical facility are performed using dose modulation techniques as appropriate to a performed exam including the following: Automated exposure control was utilized; adjustment of the MA and/or KvP according to patient size; and use of iterative reconstruction technique. ATED BY: KARIN PARIS MD DICTATED DATE/TIME: 06/29/241710 SIGNED BY: KARIN PARIS MD SIGNED DATE/TIME: 06/29/241710 CC: [place] [id number] Ph: [phone] DIAGNOSTIC IMAGING Diagnostic Imaging Report : [id number] Signed PATIENT: SUSHMA THAYER ACCT: [id number] UNIT: [id number] : 1960 LOC: ICU CENTRL ROOM / BED: [address] [place] [address] AGE / SEX: 64 / M ADM STATUS: ADM IN SERVICE 9 ORDERING PHYSICIAN: INDIA FERNANDEZ MD PROCEDURE(s): CXRP - CHEST PORTABLE REASON: INTUBATED ORDER NUMBER(s): [id number], ACCESSION NUMBER(s): [id number] EXAM: XR Chest, 1 View CLINICAL INDICATION: INTUBATED TECHNIQUE: Frontal view of the chest. COMPARISON: XY CHEST PORTABLE on DOS: 06/28/24, XY CHEST PORTABLE on DOS: 06/27/24, XY CHEST PORTABLE on DOS: 05/19/24, XY CHEST PORTABLE on DOS: 05/18/24, XY CHEST PORTABLE on DOS: 04/26/24 FINDINGS: LUNGS AND PLEURAL SPACES: Right basilar atelectasis or pneumonia. HEART: Cardiomegaly with mild congestion. MEDIASTINUM: Unremarkable. Normal mediastinal contour. BONES/JOINTS: Unremarkable. No acute fracture. TUBES, LINES AND DEVICES: The endotracheal tube (ETT) is in satisfactory position. Left-sided cardiac pacemaker. OTHER FINDINGS: . None. .. IMPRESSION: 1. Right basilar atelectasis or pneumonia. 2. Cardiomegaly with mild congestion. ATED BY: SUSHMA COLLINS MD DICTATED DATE/TIME: 06/30/24509 SIGNED BY: SUSHMA COLLINS MD SIGNED DATE/TIME: 06/30/24509 CC: [address] [id number] Ph: [phone] DIAGNOSTIC IMAGING Diagnostic Imaging Report : [id number] Signed PATIENT: SUSHMA THAYER ACCT: [id number] UNIT: [id number] : 1960 LOC: ICU CENTRL ROOM / BED: [facility] / A AGE / SEX: 64 / M ADM STATUS: ADM IN SERVICE 1001 ORDERING PHYSICIAN: ADITYA DUNCAN MD PROCEDURE(s): RUEAD - Rt Upper Ext Art Duplex REASON: ORDER NUMBER(s): [id number], ACCESSION NUMBER(s): [id number] EXAM: US RT UPPER EXT ART DUPLEX HISTORY: Evaluate for thrombosis. COMPARISON: None TECHNIQUE: Sonographic assessment of the right upper extremity arteries with grayscale and color Doppler imaging. Spectral analysis was performed. FINDINGS: AV fistula between brachial artery and cephalic vein is thrombosed. Stent is seen in the axillary region which is also thrombosed. Subclavian artery is patent triphasic waveform and peak systolic velocity of 104 centimeter/second. The axillary artery is patent with triphasic waveform and peak systolic velocity of 85 centimeter/second. The brachial artery is patent with triphasic waveform and peak systolic velocity of 109 centimeter/second. Radial artery is patent with triphasic waveform and peak systolic velocity of 57 centimeter/second. The ulnar artery is patent with triphasic waveform and peak systolic velocity of 45 centimeter/second. The internal jugular vein was not visualized due to difficulty positioning the patient. IMPRESSION: 1. The right upper extremity brachial-cephalic AVF is thrombosed. 2. The right axillary stent is thrombosed. 3. The arteries of the right upper extremity including subclavian, axillary, brachial, radial and ulnar arteries are patent. ATED BY: VEE LAWSON MD DICTATED DATE/TIME: 06/30/241957 SIGNED BY: VEE LAWSON MD SIGNED DATE/TIME: 06/30/241957 CC: [place] [id number] Ph: [phone] DIAGNOSTIC IMAGING Diagnostic Imaging Report : [id number] Signed PATIENT: SUSHMA THAYER ACCT: [id number] UNIT: [id number] : 1960 LOC: ICU CENTRL ROOM / BED: [facility] / A AGE / SEX: 64 / M ADM STATUS: ADM IN SERVICE 1142 ORDERING PHYSICIAN: DEVAUGHN LEONG MD PROCEDURE(s): CXRP - CHEST PORTABLE REASON: ETT ADVANCEMENT/NEW NOMAN CATH INSERTION ORDER NUMBER(s): [id number], ACCESSION NUMBER(s): [id number] EXAM: XY CHEST PORTABLE Indication: ETT ADVANCEMENT/NEW NOMAN CATH INSERTION Technique: Frontal view of the chest. Comparison: XY CHEST PORTABLE on DOS: 06/30/24, XY CHEST PORTABLE on DOS: 06/28/24, XY CHEST PORTABLE on DOS: 06/27/24, XY CHEST PORTABLE on DOS: 05/19/24, XY CHEST PORTABLE on DOS: 05/18/24, XY CHEST PORTABLE on DOS: 06/30/24 FINDINGS: LUNGS AND PLEURAL SPACES: Right basilar atelectasis or pneumonia. Small bilateral pleural effusions. HEART: Cardiomegaly with mild congestion. MEDIASTINUM: Cardiomegaly. Normal mediastinal contour. Atherosclerotic vascular calcifications of the thoracic aorta are noted. BONES/JOINTS: Unremarkable. No acute fracture. TUBES, LINES AND DEVICES: The endotracheal tube (ETT) is in satisfactory position. Left-sided cardiac pacemaker. OTHER FINDINGS: . None.. IMPRESSION: 1. Right basilar atelectasis or pneumonia. Small bilateral pleural effusions. 2. Cardiomegaly with mild congestion. 3. Endotracheal tube now projects 6 cm above level the elizabeth in appropriate position. ATED BY: RUTHIE SORIANO MD DICTATED DATE/TIME: 06/30/24 1221 SIGNED BY: RUTHIE SORIANO MD SIGNED DATE/TIME: 06/30/24 1221 CC: [place] [id number] Ph: [phone] DIAGNOSTIC IMAGING Diagnostic Imaging Report : [id number] Signed PATIENT: SUSHMA THAYER ACCT: [id number] UNIT: [id number] : 1960 LOC: ICU CENTRL ROOM / BED: 0265 / A AGE / SEX: 64 / M ADM STATUS: ADM IN SERVICE 0600 ORDERING PHYSICIAN: YVONNE DOMINGUEZ PROCEDURE(s): CXRP - CHEST PORTABLE REASON: PLEURAL EFFUSION ORDER NUMBER(s): [id number], ACCESSION NUMBER(s): [id number] EXAM: XR Chest, 1 View CLINICAL INDICATION: PLEURAL EFFUSION TECHNIQUE: Frontal view of the chest. COMPARISON: XY CHEST PORTABLE on DOS: 06/30/24, XY CHEST PORTABLE on DOS: 06/30/24, XY CHEST PORTABLE on DOS: 06/28/24, XY CHEST PORTABLE on DOS: 06/27/24, XY CHEST PORTABLE on DOS: 05/19/24 FINDINGS: LUNGS AND PLEURAL SPACES: Right pleural effusion. HEART: Cardiomegaly with pulmonary congestion and edema. Superimposed pneumonia cannot be excluded. MEDIASTINUM: Unremarkable. Normal mediastinal contour. BONES/JOINTS: Unremarkable. No acute fracture. TUBES, LINES AND DEVICES: Left-sided cardiac pacemaker. The endotracheal tube (ETT) is in satisfactory position. Enteric tube tip in the stomach. OTHER FINDINGS: . None. . .. IMPRESSION: 1. Cardiomegaly with pulmonary congestion and edema. Superimposed pneumonia cannot be excluded. 2. Right pleural effusion. ATED BY: SUSHMA COLLINS MD DICTATED DATE/TIME: 07/01/24513 SIGNED BY: SUSHMA COLLINS MD SIGNED DATE/TIME: 07/01/24513 CC: [place] [id number] Ph: [phone] DIAGNOSTIC IMAGING Diagnostic Imaging Report : [id number] Signed with Addenda PATIENT: SUSHMA THAYER ACCT: [id number] UNIT: [id number] : 1960 LOC: ICU CENTRL ROOM / BED: [facility] / A AGE / SEX: 64 / M ADM STATUS: ADM IN SERVICE 0400 ORDERING PHYSICIAN: YVONNE DOMINGUEZ PROCEDURE(s): CXRP - CHEST PORTABLE REASON: intubated ORDER NUMBER(s): [id number], ACCESSION NUMBER(s): [id number] ADDENDUM ADDENDUM # 1 Correction to the original report. This chest radiograph. Mild congestive heart failure. EXAM: XR Cervical Spine, 6 or More Views CLINICAL INDICATION: intubated TECHNIQUE: Frontal, lateral, oblique and flexion/extension views of the cervical spine. COMPARISON: XY CHEST PORTABLE on DOS: 07/01/24, XY CHEST PORTABLE on DOS: 06/30/24, XY CHEST PORTABLE on DOS: 06/30/24, XY CHEST PORTABLE on DOS: 06/28/24, XY CHEST PORTABLE on DOS: 06/27/24 FINDINGS: VERTEBRAE: Unremarkable. No acute fracture. Normal alignment. No instability. DISC SPACES: No acute findings. No significant narrowing. SOFT TISSUES: Unremarkable. HEART: Left cardiac. Mild congestive heart failure. TUBES, LINES AND DEVICES: Enteric tube tip in the stomach. The endotracheal tube (ETT) is in satisfactory position. OTHER FINDINGS: . ... IMPRESSION: Mild congestive heart failure. ORIGINAL REPORT EXAM: XR Cervical Spine, 6 or More Views CLINICAL INDICATION: intubated TECHNIQUE: Frontal, lateral, oblique and flexion/extension views of the cervical spine. COMPARISON: XY CHEST PORTABLE on DOS: 07/01/24, XY CHEST PORTABLE on DOS: 06/30/24, XY CHEST PORTABLE on DOS: 06/30/24, XY CHEST PORTABLE on DOS: 06/28/24, XY CHEST PORTABLE on DOS: 06/27/24 FINDINGS: VERTEBRAE: Unremarkable. No acute fracture. Normal alignment. No instability. DISC SPACES: No acute findings. No significant narrowing. SOFT TISSUES: Unremarkable. HEART: Left cardiac. Mild congestive heart failure. TUBES, LINES AND DEVICES: Enteric tube tip in the stomach. The endotracheal tube (ETT) is in satisfactory position. OTHER FINDINGS: . ... IMPRESSION: Mild congestive heart failure. ATED BY: SUSHMA COLLINS MD DICTATED DATE/TIME: 07/02/24535 SIGNED BY: SUSHMA COLLINS MD SIGNED DATE/TIME: 07/02/24535 CC: EXAM: XR Cervical Spine, 6 or More Views CLINICAL INDICATION: intubated TECHNIQUE: Frontal, lateral, oblique and flexion/extension views of the cervical spine. COMPARISON: XY CHEST PORTABLE on DOS: 07/01/24, XY CHEST PORTABLE on DOS: 06/30/24, XY CHEST PORTABLE on DOS: 06/30/24, XY CHEST PORTABLE on DOS: 06/28/24, XY CHEST PORTABLE on DOS: 06/27/24 FINDINGS: VERTEBRAE: Unremarkable. No acute fracture. Normal alignment. No instability. DISC SPACES: No acute findings. No significant narrowing. SOFT TISSUES: Unremarkable. HEART: Left cardiac. Mild congestive heart failure. TUBES, LINES AND DEVICES: Enteric tube tip in the stomach. The endotracheal tube (ETT) is in satisfactory position. OTHER FINDINGS: . ... IMPRESSION: Mild congestive heart failure. ATED BY: SUSHMA COLLINS MD DICTATED DATE/TIME: 07/02/24519 SIGNED BY: SUSHMA COLLINS MD SIGNED DATE/TIME: 07/02/24519 CC: [place] [id number] Ph: [phone] DIAGNOSTIC IMAGING Diagnostic Imaging Report : [id number] Signed PATIENT: SUSHMA THAYER ACCT: [id number] UNIT: [id number] : 1960 LOC: ICU CENTR ROOM / BED: [address] [place] [address] AGE / SEX: 64 / M ADM STATUS: ADM IN SERVICE 0400 ORDERING PHYSICIAN: YVONNE DOMINGUEZ RESIDENT PROCEDURE(s): CXRP - CHEST PORTABLE REASON: intubation ORDER NUMBER(s): [id number], ACCESSION NUMBER(s): [id number] EXAM: XR Chest, 1 View CLINICAL INDICATION: intubation TECHNIQUE: Frontal view of the chest. COMPARISON: XY CHEST PORTABLE on DOS: 07/02/24, XY CHEST PORTABLE on DOS: 07/01/24, XY CHEST PORTABLE on DOS: 06/30/24, XY CHEST PORTABLE on DOS: 06/30/24, XY CHEST PORTABLE on DOS: 06/28/24 FINDINGS: LUNGS AND PLEURAL SPACES: See below. HEART: Cardiomegaly with moderate congestion. MEDIASTINUM: Unremarkable. Normal mediastinal contour. BONES/JOINTS: Unremarkable. No acute fracture. TUBES, LINES AND DEVICES: Stable tubes and lines. OTHER FINDINGS: . None. .. ... IMPRESSION: Cardiomegaly with moderate congestion. ATED BY: SUSHMA COLLINS MD DICTATED DATE/TIME: 07/03/24528 SIGNED BY: SUSHMA COLLINS MD SIGNED DATE/TIME: 07/03/24528 CC: [place] [id number] Ph: [phone] DIAGNOSTIC IMAGING Diagnostic Imaging Report : [id number] Signed PATIENT: SUSHMA THAYER ACCT: [id number] UNIT: [id number] : 1960 LOC: ICU CENTR ROOM / BED: [facility] / AGE / SEX: 64 / M ADM STATUS: ADM IN SERVICE 9 ORDERING PHYSICIAN: YVONNE DOMINGUEZ RESIDENT PROCEDURE(s): CXRP - CHEST PORTABLE REASON: pt is intubated. ORDER NUMBER(s): [id number], ACCESSION NUMBER(s): [id number] EXAM: XY CHEST PORTABLE HISTORY: pt is intubated. COMPARISON: XY CHEST PORTABLE on DOS: 07/03/24, XY CHEST PORTABLE on DOS: 07/02/24, XY CHEST PORTABLE on DOS: 07/01/24, XY CHEST PORTABLE on DOS: 06/30/24, XY CHEST PORTABLE on DOS: 06/30/24 TECHNIQUE: Portable AP view of the chest was performed. FINDINGS: Endotracheal tube is re-identified with its tip 4 cm above the elizabeth. OG tube, left IJ central line, right subclavian artery stent, and left chest AICD are re- identified. There is decreased right basilar infiltrate and/or effusion. No pneumothorax or pulmonary edema. The heart is enlarged. IMPRESSION: 1. Mechanical ventilation with tubes and lines as above. 2. Right basilar infiltrate and effusion, improved. 3. Cardiomegaly. ATED BY: CHIOMA WIN MD DICTATED DATE/TIME: 07/04/24536 SIGNED BY: CHIOMA WIN MD SIGNED DATE/TIME: 07/04/24536 CC: [place] [id number] Ph: [phone] DIAGNOSTIC IMAGING Diagnostic Imaging Report : [id number] Signed PATIENT: SUSHMA THAYER ACCT: [id number] UNIT: [id number] : 1960 LOC: ICU CENTR ROOM / BED: [facility] A AGE / SEX: 64 / M ADM STATUS: ADM IN SERVICE 1544 ORDERING PHYSICIAN: CHINA RODRIGUEZ MD PROCEDURE(s): CXRP - CHEST PORTABLE REASON: CHANGE IN RESPIRATORY STATUS ORDER NUMBER(s): [id number], ACCESSION NUMBER(s): [id number] CHEST RADIOGRAPH Indication: CHANGE IN RESPIRATORY STATUS Technique: Single frontal view of the chest was obtained Comparison: XY CHEST PORTABLE on DOS: 07/04/24, XY CHEST PORTABLE on DOS: 07/03/24, XY CHEST PORTABLE on DOS: 07/02/24 FINDINGS: Lines and Tubes: Biventricular pacemaker in place with pulse generator over the left chest. Right subclavian stent in place Lungs: Bibasilar infiltrates and right pleural effusion. Findings are worse on the right than the left. Pleura: No effusion. No pneumothorax. Cardiomediastinal contours: Unremarkable right subclavian stent in place Bones: No acute osseous abnormality. IMPRESSION: 1. Biventricular pacemaker in place 2. Bibasilar infiltrates right pleural effusion. Right pleural effusion appears to have slightly increased. This may be secondary to patient positioning. 3. Right subclavian stent in place unchanged from 07/04/2024.. ATED BY: KARIN ABRAMS Jr., DO DICTATED DATE/TIME: 07/05/242007 SIGNED BY: KARIN ABRAMS Jr., DO SIGNED DATE/TIME: 07/05/242007 CC: [place] [id number] Ph: [phone] DIAGNOSTIC IMAGING Diagnostic Imaging Report : [id number] Signed PATIENT: SUSHMA THAYER ACCT: [id number] UNIT: [id number] : 1960 LOC: ICU CENTRL ROOM / BED: 0265 / A AGE / SEX: 64 / M ADM STATUS: ADM IN SERVICE 1003 ORDERING PHYSICIAN: CHINA RODRIGUEZ MD PROCEDURE(s): CXRP - CHEST PORTABLE REASON: CHANGE IN RESPIRATORY STATUS ORDER NUMBER(s): [id number], ACCESSION NUMBER(s): [id number] CHEST RADIOGRAPH Indication: CHANGE IN RESPIRATORY STATUS Technique: Single frontal view of the chest was obtained COMPARISON: XY CHEST PORTABLE on DOS: 07/05/24, XY CHEST PORTABLE on DOS: 07/04/24, XY CHEST PORTABLE on DOS: 07/03/24, XY CHEST PORTABLE on DOS: 07/02/24, XY CHEST PORTABLE on DOS: 07/01/24 FINDINGS: Lines and Tubes: Left chest wall AICD. Left central venous catheter in satisfactory position. Lungs: Patchy bilateral airspace opacities. Pleura: Small bilateral pleural effusions, cheev-uookaxu-qqlz-left. No pneumothorax. Cardiomediastinal contours: Unremarkable Bones: Unremarkable IMPRESSION: Unchanged fluid overload. ATED BY: MARK SANCHEZ MD DICTATED DATE/TIME: 07/06/24 1022 SIGNED BY: MARK SANCHEZ MD SIGNED DATE/TIME: 07/06/24 1022 CC: [place] [id number] Ph: [phone] DIAGNOSTIC IMAGING Diagnostic Imaging Report : [id number] Signed PATIENT: SUSHMA THAYER ACCT: [id number] UNIT: [id number] : 1960 LOC: TELE-CENTR ROOM / BED: 0212T / A AGE / SEX: 64 / M ADM STATUS: ADM IN SERVICE 0400 ORDERING PHYSICIAN: YVONNE DOMINGUEZ PROCEDURE(s): CXRP - CHEST PORTABLE REASON: pleural effusion ORDER NUMBER(s): [id number], ACCESSION NUMBER(s): [id number] CHEST RADIOGRAPH Indication: pleural effusion Technique: Single frontal view of the chest was obtained Comparison: XY CHEST PORTABLE on DOS: 07/06/24, XY CHEST PORTABLE on DOS: 07/05/24, XY CHEST PORTABLE on DOS: 07/04/24, XY CHEST PORTABLE on DOS: 07/03/24, XY CHEST PORTABLE on DOS: 07/02/24, XY CHEST PORTABLE on DOS: 07/06/24 FINDINGS: Lines and Tubes: Left chest wall AICD. Left central venous catheter in satisfactory position. Lungs: Patchy bilateral airspace opacities. Pleura: Small bilateral pleural effusions, ypolt-iqjdtsv-hzkc-left. No pneumothorax. Cardiomediastinal contours: Unremarkable Bones: Unremarkable IMPRESSION: Unchanged fluid overload. ATED BY: CHIOMA WIN MD DICTATED DATE/TIME: 07/07/24 1028 SIGNED BY: CHIOMA WIN MD SIGNED DATE/TIME: 07/07/24 1028 CC: [place] [id number] Ph: [phone] DIAGNOSTIC IMAGING Diagnostic Imaging Report : [id number] Signed PATIENT: SUSHMA THAYER ACCT: [id number] UNIT: [id number] : 1960 LOC: [facility] ROOM / BED: [address] [place] [address] A AGE / SEX: 64 / M ADM STATUS: ADM IN SERVICE 1532 ORDERING PHYSICIAN: VARGAS BENNETT MD PROCEDURE(s): CHSTU - CHEST ULTRASOUND REASON: FLUID CHECK FOR POSSIBLE THORACENTESIS ORDER NUMBER(s): [id number], ACCESSION NUMBER(s): [id number] EXAM: US CHEST ULTRASOUND Clinical History: FLUID CHECK FOR POSSIBLE THORACENTESIS Comparison: US CHEST ULTRASOUND on DOS: 05/18/24 Technique: Grayscale ultrasound of the chest performed with color Doppler and spectral/pulsed waveform as indicated. Findings/Impression: Moderate to large right pleural effusion. No left pleural effusion. ATED BY: LUCY PERALES DO DICTATED DATE/TIME: 07/07/24 1611 SIGNED BY: LUCY PERALES DO SIGNED DATE/TIME: 07/07/24 1611 CC: [place] [id number] Ph: [phone] DIAGNOSTIC IMAGING Diagnostic Imaging Report : [id number] Signed PATIENT: SUSHMA THAYER ACCT: [id number] UNIT: [id number] : 1960 LOC: [facility]TR [facility] AGE / SEX: 64 / M ADM STATUS: ADM IN SERVICE 0400 ORDERING PHYSICIAN: YVONNE DOMINGUEZ PROCEDURE(s): CXRP - CHEST PORTABLE REASON: pleural effusion ORDER NUMBER(s): [id number], ACCESSION NUMBER(s): [id number] CHEST RADIOGRAPH Indication: pleural effusion Technique: Single frontal view of the chest was obtained COMPARISON: XY CHEST PORTABLE on DOS: 07/07/24, XY CHEST PORTABLE on DOS: 07/06/24, XY CHEST PORTABLE on DOS: 07/05/24, XY CHEST PORTABLE on DOS: 07/04/24, XY CHEST PORTABLE on DOS: 07/03/24 FINDINGS: Lines and Tubes: Left chest wall AICD. Left central venous catheter in satisfactory position. Lungs: Mild congestion Pleura: Small right pleural effusion. No pneumothorax. Cardiomediastinal contours: Cardiomegaly Bones: Unremarkable IMPRESSION: Small right pleural effusion. ATED BY: MARK SANCHEZ MD DICTATED DATE/TIME: 07/08/24507 SIGNED BY: MARK SANCHEZ MD SIGNED DATE/TIME: 07/08/24 050 CC: [place] [id number] Ph: [phone] DIAGNOSTIC IMAGING Diagnostic Imaging Report : [id number] Signed PATIENT: SUSHMA THAYER ACCT: [id number] UNIT: [id number] : 1960 LOC: TELE-CENTR ROOM [facility] AGE / SEX: 64 / M ADM STATUS: ADM IN SERVICE 0400 ORDERING PHYSICIAN: YVONNE DOMINGUEZ PROCEDURE(s): CXRP - CHEST PORTABLE REASON: PLEURAL EFFUSION ORDER NUMBER(s): [id number], ACCESSION NUMBER(s): [id number] EXAM: XY CHEST PORTABLE Indication: PLEURAL EFFUSION Technique: Single frontal view of the chest was obtained Comparison: XY CHEST PORTABLE on DOS: 07/08/24, XY CHEST PORTABLE on DOS: 07/07/24, XY CHEST PORTABLE on DOS: 07/06/24, XY CHEST PORTABLE on DOS: 07/05/24, XY CHEST PORTABLE on DOS: 07/04/24 FINDINGS: Lines and Tubes: Cardiac pacemaker projects over left chest wall. Left internal jugular central venous catheter tip projects over the superior vena cava. Lungs: Bibasilar opacities. Pleura: Small bilateral pleural effusions. No pneumothorax. Cardiomediastinal contours: Cardiomegaly. Atherosclerotic vascular calcifications of the thoracic aorta are noted. Bones: No acute osseous abnormality. IMPRESSION: Cardiomegaly with small bilateral pleural effusions and bibasilar opacities. ATED BY: RUTHIE SORIANO MD DICTATED DATE/TIME: 07/09/24 105 SIGNED BY: RUTHIE SORIANO MD SIGNED DATE/TIME: 07/09/24 105 CC: [place] [id number] Ph: [phone] DIAGNOSTIC IMAGING Diagnostic Imaging Report : [id number] Signed with Addenda PATIENT: SUSHMA THAYER ACCT: [id number] UNIT: [id number] : 1960 LOC: [facility] ROOM / BED: [address] [place] [address] A AGE / SEX: 64 / M ADM STATUS: ADM IN SERVICE 0800 ORDERING PHYSICIAN: JAY DODSON RESIDENT PROCEDURE(s): THORA - THORACENTESIS REASON: R PLEURAL EFFUSION ORDER NUMBER(s): [id number], ACCESSION NUMBER(s): [id number] ADDENDUM ADDENDUM # [address] Bennett ORIGINAL REPORT PROCEDURE: ULTRASOUND GUIDED THORACENTESIS USING TEMPORARY CATHETER HISTORY: R PLEURAL EFFUSION DOCUMENTATION: Informed consent was obtained and a procedural time out was performed. FINDINGS: The risks and benefits of the procedure including bleeding, infection and pneumothorax were explained to the patient and written informed consent obtained. Optimal site for puncture long the right posterior chest wall was determined using real-time ultrasound and the region sterilized. Local anesthesia was instilled. A 5 [place] catheter was then advanced into the pleural space and 1.3 liters of straw colored fluid was removed. The patient tolerated the procedure well. IMPRESSION: Ultrasound guided RIGHT thoracentesis. ATED BY: CHIOMA WIN MD DICTATED DATE/TIME: 07/09/24 1513 SIGNED BY: CHIOMA WIN MD SIGNED DATE/TIME: 07/09/24 1513 CC: PROCEDURE: ULTRASOUND GUIDED THORACENTESIS USING TEMPORARY CATHETER HISTORY: R PLEURAL EFFUSION DOCUMENTATION: Informed consent was obtained and a procedural time out was performed. FINDINGS: The risks and benefits of the procedure including bleeding, infection and pneumothorax were explained to the patient and written informed consent obtained. Optimal site for puncture long the right posterior chest wall was determined using real-time ultrasound and the region sterilized. Local anesthesia was instilled. A 5 [place] catheter was then advanced into the pleural space and 1.3 liters of straw colored fluid was removed. The patient tolerated the procedure well. IMPRESSION: Ultrasound guided RIGHT thoracentesis. ATED BY: CHIOMA WIN MD DICTATED DATE/TIME: 07/09/24 1501 SIGNED BY: CHIOMA WIN MD SIGNED DATE/TIME: 07/09/24 1501 CC: [place] [id number] Ph: [phone] DIAGNOSTIC IMAGING Diagnostic Imaging Report : [id number] Signed PATIENT: SUSHMA THAYER ACCT: [id number] UNIT: [id number] : 1960 LOC: [facility] AGE / SEX: 64 / M ADM STATUS: ADM IN SERVICE 1206 ORDERING PHYSICIAN: YVONNE DOMINGUEZ PROCEDURE(s): LUDVT - LT Upper DVT REASON: ro dvt ORDER NUMBER(s): [id number], ACCESSION NUMBER(s): [id number] LEFT Upper Extremity Venous Duplex Clinical History: edema Comparison: US LT UPPER DVT on DOS: 05/18/24 Findings: Duplex Doppler evaluation of the venous system of the LEFT lower neck and upper extremity including color Doppler and spectral/pulsed waveform analysis was performed. PICC line in the left internal jugular vein. No flow seen subclavian vein. The subclavian vein is patent on color Doppler evaluation without intraluminal thrombus and demonstrates waveform variability. The visualized portion of the brachiocephalic vein is patent on color Doppler evaluation without intraluminal thrombus and demonstrates waveform variability. The axillary vein demonstrates appropriate compressibility and waveform variability. The brachial veins demonstrate appropriate compressibility and patency on Doppler evaluation. The basilic vein demonstrates appropriate compressibility and patency on Doppler evaluation. The cephalic vein demonstrates appropriate compressibility and patency on Doppler evaluation. Impression: Thrombus in the left subclavian vein If clinical concern/symptoms persist or worsen, short-interval follow-up study is suggested. ATED BY: CHIOMA WIN MD DICTATED DATE/TIME: 07/09/24 1500 SIGNED BY: CHIOMA WIN MD SIGNED DATE/TIME: 07/09/24 1500 CC: [place] [id number] Ph: [phone] DIAGNOSTIC IMAGING Diagnostic Imaging Report : [id number] Signed PATIENT: SUSHMA THAYER ACCT: [id number] UNIT: [id number] : 1960 LOC: [facility]TR RO[facility] AGE / SEX: 64 / M ADM STATUS: ADM IN SERVICE 1358 ORDERING PHYSICIAN: VARGAS BENNETT MD PROCEDURE(s): CXRP - CHEST PORTABLE REASON: thoracentesis ORDER NUMBER(s): [id number], ACCESSION NUMBER(s): [id number] EXAM: XY CHEST PORTABLE Indication: thoracentesis Technique: Single frontal view of the chest was obtained Comparison: XY CHEST PORTABLE on DOS: 07/09/24, XY CHEST PORTABLE on DOS: 07/08/24, XY CHEST PORTABLE on DOS: 07/07/24, XY CHEST PORTABLE on DOS: 07/06/24, XY CHEST PORTABLE on DOS: 07/05/24 FINDINGS: Lines and Tubes: Cardiac pacemaker projects over left chest wall. Left internal jugular central venous catheter tip projects over the superior vena cava. Lungs: Left lower lung consolidative opacity. Pleura: No effusion. Small right pneumothorax. Cardiomediastinal contours: Cardiomegaly. Atherosclerotic vascular calcifications of the thoracic aorta are noted. Vascular stent projects over the right upper chest. Bones: No acute osseous abnormality. IMPRESSION: Small right pneumothorax. Cardiomegaly with left lower lung consolidative opacity. Interval decrease in right pleural effusion compared to prior exam. Critical Result: Pneumothorax Findings discussed with Dr. Bennett , at 07/09/2024 03:16 PM. ATED BY: RUTHIE SORIANO MD DICTATED DATE/TIME: 07/09/241516 SIGNED BY: RUTHIE SORIANO MD SIGNED DATE/TIME: 07/09/241516 CC: [place] [id number] Ph: [phone] DIAGNOSTIC IMAGING Diagnostic Imaging Report : [id number] Signed PATIENT: SUSHMA THAYER ACCT: [id number] UNIT: [id number] : 1960 LOC: TELE-CENTR ROOM / BED: [address] [place] [address] AGE / SEX: 64 / M ADM STATUS: ADM IN SERVICE 152 ORDERING PHYSICIAN: VARGAS BENNETT MD PROCEDURE(s): CXRP - CHEST PORTABLE REASON: POST THORACENTESIS ORDER NUMBER(s): [id number], ACCESSION NUMBER(s): [id number] EXAM: XY CHEST PORTABLE Indication: POST THORACENTESIS Technique: Single frontal view of the chest was obtained Comparison: XY CHEST PORTABLE on DOS: 07/09/24, XY CHEST PORTABLE on DOS: 07/09/24, XY CHEST PORTABLE on DOS: 07/08/24, XY CHEST PORTABLE on DOS: 07/07/24, XY CHEST PORTABLE on DOS: 07/06/24 FINDINGS: Lines and Tubes: Cardiac pacemaker projects over left chest wall. Lungs: Pulmonary edema. Pleura: Small left pleural effusion. Interval resolution of previously seen right pneumothorax. Cardiomediastinal contours: Cardiomegaly. Atherosclerotic vascular calcifications of the thoracic aorta are noted. Bones: No acute osseous abnormality. IMPRESSION: Interval resolution of previously seen right pneumothorax. Pulmonary edema. Small left pleural effusion. ATED BY: RUTHIE SORIANO MD DICTATED DATE/TIME: 07/09/241547 SIGNED BY: RUTHIE SORIANO MD SIGNED DATE/TIME: 07/09/241547 CC: [place] [id number] Ph: [phone] DIAGNOSTIC IMAGING Diagnostic Imaging Report : [id number] Signed PATIENT: SUSHMA THAYER ACCT: [id number] UNIT: [id number] : 1960 LOC: [facility]OM / BED: [facility] / A AGE / SEX: 64 / M ADM STATUS: ADM IN SERVICE 1154 ORDERING PHYSICIAN: VARGAS BENNETT MD PROCEDURE(s): RUEAD - Rt Upper Ext Art Duplex REASON: EVAL FISTULA ORDER NUMBER(s): [id number], ACCESSION NUMBER(s): [id number] Right Upper Extremity Arterial Duplex Clinical History: EVAL FISTULA Comparison: US RT UPPER EXT ART DUPLEX on DOS: 06/30/24 Technique: Duplex Doppler evaluation including color Doppler and spectral/pulsed waveform analysis of the upper extremity arteries was performed. Findings: RIGHT: Peak systolic velocities are as follows: Subclavian 104 cm/s Axillary 122 cm/s Brachial 95 cm/s Prox Radial 58 cm/s Prox Ulnar 73 cm/s Thrombus is seen at the mid and distal aspect of right upper extremity fistula. Thrombus is seen in the cephalic vein. IMPRESSION: Thrombus is seen at the mid and distal aspect of right upper extremity fistula. Thrombus is seen in the cephalic vein. Vascular surgery consultation recommended. REFERENCE VALUES, [facility] ([facility]) vascular Imaging Lab Criteria: Peak systolic velocity ranges (in cm/sec) are as follows: <150 cm/s - <20 % stenosis 150-200 cm/s - 20-49% stenosis 200-300 cm/s - 50-75% stenosis >300 cm/s -> 75% stenosis ATED BY: MARK SANCHEZ MD DICTATED DATE/TIME: 07/10/24 135 SIGNED BY: MARK SANCHEZ MD SIGNED DATE/TIME: 07/10/24 135 CC: [place] [id number] Ph: [phone] DIAGNOSTIC IMAGING Diagnostic Imaging Report : [id number] Signed PATIENT: SUSHMA THAYER ACCT: [id number] UNIT: [id number] : 1960 LOC: [facility] ROOM / BED: [address] [place] [address] AGE / SEX: 64 / M ADM STATUS: ADM IN SERVICE 38 ORDERING PHYSICIAN: YVONNE DOMINGUEZ RESIDENT PROCEDURE(s): CXRP - CHEST PORTABLE REASON: sob ORDER NUMBER(s): [id number], ACCESSION NUMBER(s): [id number] XY CHEST PORTABLE, HISTORY: sob COMPARISON: XY CHEST PORTABLE on DOS: 07/09/24, XY CHEST PORTABLE on DOS: 07/09/24, XY CHEST PORTABLE on DOS: 07/09/24 XY CHEST PORTABLE on DOS: 07/09/24, XY CHEST PORTABLE on DOS: 07/09/24, XY CHEST PORTABLE on DOS: 07/09/24 TECHNICAL DATA: 1 view of the chest was obtained. FINDINGS: Lines and tubes: Stents are noted in the right shoulder, pacer is noted, left HD cath is seen. Cardiomediastinal silhouette: Enlarged Pulmonary vasculature: Prominent Lung expansion: low Lung airspace: Left basilar consolidation. Lung interstitium: normal Pleura: normal Pneumothorax: no Bones: Unremarkable Other: no IMPRESSION: Left basilar consolidation, similar to prior. ATED BY: VARGAS BENNETT MD DICTATED DATE/TIME: 07/15/241219 SIGNED BY: VARGAS BENNETT MD SIGNED DATE/TIME: 07/15/241219 CC: [place] [id number] Ph: [phone] DIAGNOSTIC IMAGING Diagnostic Imaging Report : [id number] Signed PATIENT: SUSHMA THAYER ACCT: [id number] UNIT: [id number] : 1960 LOC: [facility] AGE / SEX: 64 / M ADM STATUS: ADM IN SERVICE 5 ORDERING PHYSICIAN: JAY DODSON PROCEDURE(s): INVENCAT - Insertion of Venous Cath REASON: HD CATH ORDER NUMBER(s): [id number], ACCESSION NUMBER(s): [id number] Insertion of Venous Cath, HISTORY: HD CATH needing hemodialysis. PROCEDURE: Informed consent was obtained. The patient was placed supine on the interventional table. 1 gram of Ancef was given. A limited localization ultrasound of the right and left neck base was obtained. The right and left upper chest and neck base were prepped with chlorhexidine which was allowed to dry and draped in the usual sterile fashion. Time out was performed. With real- time ultrasound guidance, the right internal jugular vein was accessed with a micropuncture kit, and an image documenting patency sent to PACS. Contrast was injected through the microsheath. The right IJ was occluded. Next, using ultrasound guidance, the right external jugular vein was accessed. Contrast injected shows that the EJ is also occluded. The left IJ was then accessed. However there were multiple pacer leads in the left brachiocephalic vein and the vessel did not have enough space to accomodate a 14 Fr dialysis catheter. Using the ultrasound, the right axillary vein was accessed and an amplatz wire was placed into the IVC. A subcutaneous tunneled tract was created from the right upper chest to the venotomy site. A 14.5 [place] [address], 27 cm long hemodialysis catheter was advanced through the tunneled tract. Fluoroscopy was used to advance a guidewire through the internal jugular vein into the inferior vena cava. Following serial dilatation, a 15 [place] peel-away sheath was introduced, though which was advanced the catheter into the right atrium. The catheter tip position was confirmed with fluoroscopy. There was satisfactory flow in both lumens. The catheter lumens were flushed with saline and heparin was left indwelling in the catheter. A post-procedure image of the chest was obtained. The neck incision site was closed and dressed sterilely. The catheter was sutured at the skin surface and exit site also dressed sterilely. No immediate complication was identified. DAP 533 FLUOROSCOPY TIME: 11.6 minutes. SEDATION: Dr. Mago Bennett was personally responsible for the administration of moderate sedation during the procedure performed, including the use of an independent trained observer who had no other duties during the procedure. The drugs utilized were IV fentanyl and versed (see nursing log for details). The total time of supervision by the attending physician was approximately 75 minutes. FINDINGS: Complex hemodialysis catheter placement requiring additional time and effort to complete. Right subclavian, brachiocephalic vein stent occludes the right IJ and right EJ (no access). At least 4-5 pacer wires occludes the left brachiocephalic vein (no access). Access site at the right axillary vein, just before the axillary vein stent. Post procedure image demonstrates smooth course of the hemodialysis catheter with the tip in the right atrium with the HD catheter through the right axillary, subclavian, brachiocephalic vein stent. IMPRESSION: Complex hemodialysis catheter placement requiring additional time and effort to complete. Right subclavian, brachiocephalic vein stent occludes the right IJ and right EJ (no access). At least 4-5 pacer wires occludes the left brachiocephalic vein (no access). Access site at the right axillary vein, just before the axillary vein stent. Post procedure image demonstrates smooth course of the hemodialysis catheter with the tip in the right atrium with the HD catheter through the right axillary, subclavian, brachiocephalic vein stent. Placement of 14.5 [place] Path, 27 cm long hemodialysis catheter through right axillary vein. ATED BY: VARGAS BENNETT MD DICTATED DATE/TIME: 07/17/241218 SIGNED BY: VARGAS BENNETT MD SIGNED DATE/TIME: 07/17/241218 CC: [place] [id number] Ph: [phone] DIAGNOSTIC IMAGING Diagnostic Imaging Report : [id number] Signed PATIENT: SUSHMA THAYER ACCT: [id number] UNIT: [id number] : 1960 LOC: [facility] ROOM / BED: [facility] / A AGE / SEX: 64 / M ADM STATUS: ADM IN SERVICE 0400 ORDERING PHYSICIAN: JAY DODSON RESIDENT PROCEDURE(s): CXR1 - CHEST XRAY 1 VIEW REASON: to see changes in tunneled catherter ORDER NUMBER(s): [id number], ACCESSION NUMBER(s): [id number] CHEST RADIOGRAPH Indication: to see changes in tunneled catherter Technique: Single frontal view of the chest was obtained Comparison: XY CHEST PORTABLE on DOS: 07/15/24, XY CHEST PORTABLE on DOS: 07/09/24, XY CHEST PORTABLE on DOS: 07/09/24 IMPRESSION: The heart is enlarged with multilead left cardiac device. Right dialysis catheter tip is seen in the region of the superior vena cava, superimposing or within the right vascular stent. Possible small left pleural effusion. Patchy bibasilar airspace opacities appear similar. No discrete pneumothorax. 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 #CAD status post 3 stents #Acute hypoxemic respiratory failure due to HFrEF 20% exacerbation #Acute hypoxic hypercapnic respiratory failure #Respiratory acidosis #Bilateral infiltrates on chest x-ray possible aspiration pneumonia / pulmonary edema #Right pleural effusion S/P thoracentesis #Pulmonary embolism ruled out #left hepatic cyst #Transaminitis , resolved #Constipation #ESRD on hemodialysis #Acute kidney injury on ESRD #Hyperkalemia resolved #Hypoalbuminemia #hyponatremia #Shock likely septic due to suspected UTI/aspiration pneumonia #Leukocytosis #Bilateral infiltrates likely due to possible aspiration pneumonia # Subclinical hypothyroidism Hematology: # Normocytic normochromic anemia status post 4 packed red blood cell transfusion in the setting of ESRD #Thrombocytopenia likely medication induced/due to ESRD #av fistula repair #left subclavian thrombosis Discharge Disposition: [facility] Facility Discharge Instruct/Medications Diet: Cardiac 2g Na,low cholest, Renal Activity: Light activity Follow Up/Referral: Please follow up with the primary care physician in 1 week Please follow up with your hemodialysis as per schedule with the [facility] Please follow up with the rib chopper in 1-2 weeks Please follow up with your pot filler as per schedule Please avoid dehydration and nephrotoxic drugs Please be compliant with medication Medications: Eliquis 2.5 mg p.o. b.i.d. Amiodarone 200 mg p.o. b.i.d. Mexiletine 150 mg p.o. q.8h Zofran 4 mg q.6h as needed Pantoprazole 40 mg p.o. daily Please resume other home medications as per recommendation of your PCP or rib chopper or pot filler Discharge Statement: "Patient was advised to return to the ER or call 911 if any headaches, dizziness, shortness of breath, chest pain, abdominal pain, bleeding, fevers, or worsening of medical condition. Patient was counseled about treatment plan, medications, possible side effects, patientverbalized understanding. All questions were answered to the best of my ability. 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 #CAD status post 3 stents #Acute hypoxemic respiratory failure due to HFrEF 20% exacerbation #Acute hypoxic hypercapnic respiratory failure #Respiratory acidosis #Bilateral infiltrates on chest x-ray possible aspiration pneumonia / pulmonary edema #Right pleural effusion S/P thoracentesis #Pulmonary embolism ruled out #left hepatic cyst #Transaminitis , resolved #Constipation #ESRD on hemodialysis #Acute kidney injury on ESRD #Hyperkalemia resolved #Hypoalbuminemia #hyponatremia #Shock likely septic due to suspected UTI/aspiration pneumonia #Leukocytosis #Bilateral infiltrates likely due to possible aspiration pneumonia # Subclinical hypothyroidism Hematology: # Normocytic normochromic anemia status post 4 packed red blood cell transfusion in the setting of ESRD #Thrombocytopenia likely medication induced/due to ESRD #av fistula repair #left subclavian thrombosis Date of Service: Jul 21, 2024 Billing Provider: BELTRAN KLEIN MD Common Visit Codes: 01508-AQK/OBS DISCH DAY >30min KEILY GREGG RESIDENT Jul 21, 2024 11:53 BELTRAN KLEIN MD Jul 25, 2024 16:37
--- NOTE | 2024-07-21 14:56 | DVHPN2 ---
Progress Note Date Seen: Jul 21, 2024 Medical Necessity Reason Pt with a Central, PICC or Fol: Yes The following are medically ne: Central Line Subjective Patient reports: No new complaints Other Systems: Patient seen and examined by myself in follow-up today Patient examined hemodialysis, blood pressure stable Objective vital signs Vital Sign Date Time Temp Pulse Resp B/P (MAP) Pulse Ox O2 Delivery O2 Flow Rate FiO2 07/21/24 13:59 97.6 67 15 118/64 97.6 07/21/24 13:15 100 07/20/24 20:00 Nasal Cannula* 2 28 Total Intake and Output 07/20/24 07/20/24 07/21/24 15:00 23:00 07:00 Intake Total 200 ml Output Total 0 ml 0 ml Balance 0 ml 200 ml medications Current Medications Medications Dose Ordered Sig/Colleen Route Start Time Stop Time Status Last Admin Dose Admin Bacitracin/ Polymyxin B Sulfate 1 applic TID OP 06/27/24 22:00 07/19/24 06:21 1 APPLIC Dextrose 50 ml UD PRN IV 06/28/24 08:00 06/29/24 11:58 50 ML Heparin Sodium/ Dextrose 250 ml @ 13.896 mls/ hr Q18H IV 06/28/24 08:00 UNV Epoetin Eligio-epbx 10,000 unit MWF@2100 SC 06/29/24 21:00 Hold 07/16/24 00:09 10,000 UNIT Artificial Tears 2 drop Q6HP PRN EACHEYE 06/29/24 11:30 Amiodarone HCl 200 mg BID PO 06/30/24 22:00 07/21/24 08:33 200 MG Mexiletine HCl 150 mg Q8HR PO 06/30/24 22:00 07/21/24 14:23 150 MG Acetaminophen 650 mg Q4HP PRN PO 07/03/24 18:00 07/20/24 04:32 650 MG Morphine Sulfate 1 mg Q4HP PRN IV 07/05/24 15:45 07/20/24 17:07 1 MG Pantoprazole Sodium 40 mg DAILY@0600 PO 07/07/24 06:00 07/21/24 05:35 40 MG Ondansetron HCl 4 mg Q6HPRN PRN IV 07/06/24 12:45 07/21/24 08:33 4 MG Albumin Human 100 ml @ 100 mls/hr SHADY PRN IV 07/06/24 19:30 Docusate Sodium 100 mg BIDPRN PRN PO 07/14/24 11:00 Prednisone 10 mg DAILY PO 07/21/24 10:00 07/21/24 08:33 10 MG Apixaban 2.5 mg BID PO 07/20/24 22:00 07/21/24 08:33 2.5 MG Examination: LUNGS:Normal, LUNGS:Abnormal, MSK:Normal laboratory and microbiology Laboratory Tests 07/21/24 05:22 Test 07/21/24 05:22 Range/Units Serum Glucose 99 74-106 mg/dL Microbiology Date/Time Source Procedure Growth Status 07/09/24 14:18 Pleural Fluid Gram Stain - Final Complete 07/09/24 14:18 Pleural Fluid Body Fluid Culture - Final Complete 06/28/24 11:44 Nose MRSA Screen - Final Complete 06/28/24 08:05 Sputum Gram Stain - Final Complete 06/28/24 08:05 Sputum Respiratory Culture - Final Complete 06/28/24 07:55 Blood Blood Culture - Final Staphylococcus epidermidis Complete Problem List/Assessment/Plan Problem List/Assessment/Plan ESRD on dialysis Acute respiratory failure, extubated Hyperkalemia s/p cardiac arrest thrombosed AVF status post angioplasty and fistulogram by vascular surgery 07/01 CHF exacerbation Atrial fibrillation HTN Anemia chronic kidney disease Hypokalemia Recommendation Continue with UF to 3 L as tolerated Epogen 38423 IV post hemodialysis Fluid restrictions KCL replacement Blood pressure control We will continue to follow up Plan discussed with: Patient Dietary Evaluation Review Comments: 1) Add renal restriction to mechanical soft diet order 2) Initiate Nepro bid 3) Continue to promote PO intake 4) Continue to monitor appetite, labs, and skin integrity Expected Outcomes/Goals: 1) appetite and labs to improve 2) wound to improve 3) f/u in 5 days BRITTANY AIKEN MD Jul 21, 2024 14:55
[2024-07-21] MEDS: SODIUM CHL 0.9% 1000 ML BAG XX ONE (17:09)
[2024-07-21] MEDS: LIDOCAINE 2%HCL (LOCAL ANESTH.) INJ 10ml MDV ONE (18:12)
[2024-07-21] MEDS ORDERED: EPOETIN ALFA-EPBX 10,000 UNIT/1ML VIAL SC ONE (21:00)
== END 2024-07-21 18:40 | DRG 853 ==
LOC: ER 10:24 → EDBD 10:24 → EDUNIT# 10:24 → OVERFLOW 17:07 → EAST 18:30 → ICU CENTRL 06-28 11:40 → TELE-CENTR 07-06 17:27
PROVIDERS: ADMIT Internal Medicine; ATTEND Internal Medicine
PROC: 5A12012 Performance of Cardiac Output, Single, Manual (ICD-10-PCS; 2024-06-28)
PROC: 06HY33Z Insertion of Infusion Device into Lower Vein, Percutaneous Approach (ICD-10-PCS; 2024-06-28)
PROC: 0BH17EZ Insertion of Endotracheal Airway into Trachea, Via Natural or Artificial Opening (ICD-10-PCS; 2024-06-28)
PROC: 5A1955Z Respiratory Ventilation, Greater than 96 Consecutive Hours (ICD-10-PCS; 2024-06-28)
PROC: 5A1D70Z Performance of Urinary Filtration, Intermittent, Less than 6 Hours Per Day (ICD-10-PCS; 2024-06-28)
PROC: 30233N1 Transfusion of Nonautologous Red Blood Cells into Peripheral Vein, Percutaneous Approach (ICD-10-PCS; 2024-06-29)
PROC: 5A1D70Z Performance of Urinary Filtration, Intermittent, Less than 6 Hours Per Day (ICD-10-PCS; 2024-06-29)
PROC: 4B02XTZ Measurement of Cardiac Defibrillator, External Approach (ICD-10-PCS; 2024-06-30)
PROC: 02HV33Z Insertion of Infusion Device into Superior Vena Cava, Percutaneous Approach (ICD-10-PCS; 2024-06-30)
PROC: B548ZZA Ultrasonography of Superior Vena Cava, Guidance (ICD-10-PCS; 2024-06-30)
PROC: 5A1D70Z Performance of Urinary Filtration, Intermittent, Less than 6 Hours Per Day (ICD-10-PCS; 2024-06-30)
PROC: 05773ZZ Dilation of Right Axillary Vein, Percutaneous Approach (ICD-10-PCS; principal; 2024-07-01)
PROC: B51M1ZZ Fluoroscopy of Right Upper Extremity Veins using Low Osmolar Contrast (ICD-10-PCS; 2024-07-01)
PROC: B31H1ZZ Fluoroscopy of Right Upper Extremity Arteries using Low Osmolar Contrast (ICD-10-PCS; 2024-07-01)
PROC: 5A1D70Z Performance of Urinary Filtration, Intermittent, Less than 6 Hours Per Day (ICD-10-PCS; 2024-07-01)
PROC: 5A1D70Z Performance of Urinary Filtration, Intermittent, Less than 6 Hours Per Day (ICD-10-PCS; 2024-07-02)
PROC: 5A1D70Z Performance of Urinary Filtration, Intermittent, Less than 6 Hours Per Day (ICD-10-PCS; 2024-07-04)
PROC: 5A09357 Assistance with Respiratory Ventilation, Less than 24 Consecutive Hours, Continuous Positive Airway Pressure (ICD-10-PCS; 2024-07-05)
PROC: 4A023N7 Measurement of Cardiac Sampling and Pressure, Left Heart, Percutaneous Approach (ICD-10-PCS; 2024-07-06)
PROC: B211YZZ Fluoroscopy of Multiple Coronary Arteries using Other Contrast (ICD-10-PCS; 2024-07-06)
PROC: 4A033BC Measurement of Arterial Pressure, Coronary, Percutaneous Approach (ICD-10-PCS; 2024-07-06)
PROC: 5A09357 Assistance with Respiratory Ventilation, Less than 24 Consecutive Hours, Continuous Positive Airway Pressure (ICD-10-PCS; 2024-07-06)
PROC: 5A09357 Assistance with Respiratory Ventilation, Less than 24 Consecutive Hours, Continuous Positive Airway Pressure (ICD-10-PCS; 2024-07-07)
PROC: 5A1D70Z Performance of Urinary Filtration, Intermittent, Less than 6 Hours Per Day (ICD-10-PCS; 2024-07-07)
PROC: 5A09357 Assistance with Respiratory Ventilation, Less than 24 Consecutive Hours, Continuous Positive Airway Pressure (ICD-10-PCS; 2024-07-08)
PROC: 0W993ZZ Drainage of Right Pleural Cavity, Percutaneous Approach (ICD-10-PCS; 2024-07-09)
PROC: 5A09357 Assistance with Respiratory Ventilation, Less than 24 Consecutive Hours, Continuous Positive Airway Pressure (ICD-10-PCS; 2024-07-09)
PROC: 5A1D70Z Performance of Urinary Filtration, Intermittent, Less than 6 Hours Per Day (ICD-10-PCS; 2024-07-09)
PROC: 5A1D70Z Performance of Urinary Filtration, Intermittent, Less than 6 Hours Per Day (ICD-10-PCS; 2024-07-12)
PROC: 5A1D70Z Performance of Urinary Filtration, Intermittent, Less than 6 Hours Per Day (ICD-10-PCS; 2024-07-14)
PROC: 5A1D70Z Performance of Urinary Filtration, Intermittent, Less than 6 Hours Per Day (ICD-10-PCS; 2024-07-16)
PROC: 0JH63XZ Insertion of Tunneled Vascular Access Device into Chest Subcutaneous Tissue and Fascia, Percutaneous Approach (ICD-10-PCS; 2024-07-17)
PROC: 02H633Z Insertion of Infusion Device into Right Atrium, Percutaneous Approach (ICD-10-PCS; 2024-07-17)
PROC: B548ZZA Ultrasonography of Superior Vena Cava, Guidance (ICD-10-PCS; 2024-07-17)
PROC: B5181ZA Fluoroscopy of Superior Vena Cava using Low Osmolar Contrast, Guidance (ICD-10-PCS; 2024-07-17)
PROC: 5A1D70Z Performance of Urinary Filtration, Intermittent, Less than 6 Hours Per Day (ICD-10-PCS; 2024-07-18)
PROC: 5A1D70Z Performance of Urinary Filtration, Intermittent, Less than 6 Hours Per Day (ICD-10-PCS; 2024-07-21)
DX: A41.9 Sepsis, unspecified organism (principal); G93.41 Metabolic encephalopathy; I21.A1 Myocardial infarction type 2; I46.9 Cardiac arrest, cause unspecified; I49.01 Ventricular fibrillation; J15.69 Pneumonia due to other Gram-negative bacteria; J96.01 Acute respiratory failure with hypoxia; N18.6 End stage renal disease; R65.21 Severe sepsis with septic shock; J69.0 Pneumonitis due to inhalation of food and vomit; R57.0 Cardiogenic shock; J96.02 Acute respiratory failure with hypercapnia; J18.9 Pneumonia, unspecified organism; I50.23 Acute on chronic systolic (congestive) heart failure; N17.9 Acute kidney failure, unspecified; D61.818 Other pancytopenia; I13.2 Hypertensive heart and chronic kidney disease with heart failure and with stage 5 chronic kidney disease, or end stage renal disease; N39.0 Urinary tract infection, site not specified; E87.20 Acidosis, unspecified; I47.20 Ventricular tachycardia, unspecified; J98.11 Atelectasis; T82.868A Thrombosis due to vascular prosthetic devices, implants and grafts, initial encounter; G93.1 Anoxic brain damage, not elsewhere classified; E87.1 Hypo-osmolality and hyponatremia; I82.B12 Acute embolism and thrombosis of left subclavian vein; E87.4 Mixed disorder of acid-base balance; T82.855A Stenosis of coronary artery stent, initial encounter; E87.5 Hyperkalemia; Z20.822 Contact with and (suspected) exposure to COVID-19; E78.5 Hyperlipidemia, unspecified; H10.31 Unspecified acute conjunctivitis, right eye; I25.10 Atherosclerotic heart disease of native coronary artery without angina pectoris; I48.91 Unspecified atrial fibrillation; I27.20 Pulmonary hypertension, unspecified; I70.0 Atherosclerosis of aorta; E11.22 Type 2 diabetes mellitus with diabetic chronic kidney disease; D63.1 Anemia in chronic kidney disease; E88.09 Other disorders of plasma-protein metabolism, not elsewhere classified; E87.6 Hypokalemia; K76.89 Other specified diseases of liver; K59.00 Constipation, unspecified; E03.8 Other specified hypothyroidism; Z91.148 Patient's other noncompliance with medication regimen for other reason; Z99.81 Dependence on supplemental oxygen; Z99.2 Dependence on renal dialysis; Z79.01 Long term (current) use of anticoagulants; Z82.49 Family history of ischemic heart disease and other diseases of the circulatory system; Z79.899 Other long term (current) drug therapy; Z85.46 Personal history of malignant neoplasm of prostate; Z91.199 Patient's noncompliance with other medical treatment and regimen due to unspecified reason; Z95.810 Presence of automatic (implantable) cardiac defibrillator; Y84.8 Other medical procedures as the cause of abnormal reaction of the patient, or of later complication, without mention of misadventure at the time of the procedure; Y84.1 Kidney dialysis as the cause of abnormal reaction of the patient, or of later complication, without mention of misadventure at the time of the procedure; Y92.89 Other specified places as the place of occurrence of the external cause; D69.59 Other secondary thrombocytopenia
CPT/HCPCS: 32555; 36415; 36556; 36558; 36600; 36902; 36905; 70450; 71045; 71275; 76604; 76937; 76942; 77001; 80048; 80053; 80074; 80162; 80202; 82306; 82565; 82728; 82805; 82962; 83540; 83550; 83605; 83735; 83880; 83986; 84100; 84132; 84439; 84443; 84481; 84484; 85007; 85014; 85018; 85025; 85027; 85379; 85610; 85730; 86706; 86850; 86900; 86901; 86920; 87040; 87070; 87077; 87081; 87186; 87205; 87426; 87804; 89051; 90935; 92610; 92950; 93005; 93306; 93458; 93571; 93971; 94002; 94003; 94640; 94660; 96365; 96375; 97110; 97163; 97530; 99152; 99291; C1894; G0378; J1642; J1815; J2003; J2250; J2405; J2470; J2543; J3480; J7060; P9047; Q9967

== ENCOUNTER 2024-07-29 06:37 | Inpatient (IN) | payer MEDICARE, OTHER ==
[~2024-07-29] VITALS: Ht 188 cm; Wt 69.0 kg
--- NOTE | 2024-07-29 07:01 | ECG ---
[facility] Test Date: 2024-07-29 Test Time: 06:45:43 Pat Name: SUSHMA THAYER Department: ED Room: [address] [place] [address] Gender: M Tack Puller Machine: OLU : 1960 Requested By: GOPI GANN Order Number: [id number] Reading MD: Josh Holliday Measurements Intervals [place] Rate: 78 P: 99 VT: 146 QRS: 176 QRSD: 179 T: 130 QT: 482 QTc: 550 Interpretive Statements Atrial-sensed ventricular-paced rhythm No further analysis attempted due to paced rhythm Electronically Signed On 07-29-2024 22:44:28 PDT by Josh Holliday Please click the below link to view image of tracing.
--- NOTE | 2024-07-29 07:13 | ED.PDOC ---
GI ASSESSMENT HPI Comments 64M BIBA w/ prior Hx of Prostate Cancer, NH, CHF, Pacemaker, Stent x3, Has home O2, ESRD (Saturday, , Saturday) which all may be associated to the c/c of a GI bleed. EMS report the pt6 being picked up from [facility] w/ nurses stating to EMS that the pt had "black dots in stool on Saturday of 07/24/24, then from Saturday-Saturday was fine but then yesterday had Bloody stool." EMS note that the pt was on Eliquis and was off since Saturday due from the blood. EMS state that the doctor on scene told the nursing staff that the pt needs to go to the ER. Pt is recently positive for COVID. PMHX of High Lipids, and Pleural Effusion. Denies chills, fever, N/V/D< SOB, CP or no other associated symptom's, modifiers, recent injuries or sick contacts at this time. Chief Complaint: GI Bleed Time Seen by MD: 07:00 Primary Care Provider: BARBRA Reviewed Notes: Nurses Notes, Housemaid Notes, Medications, Allergies Allergies: Coded Allergies: NO KNOWN ALLERGIES (Unverified , 04/07/24) Home Meds Active Scripts Famotidine (PEPCID TABLET) 20 Mg Tb, 1 TAB PO BID for 30 Days, #60 TAB 5 [facility] 05/21/24 Sacubitril-Valsartan (Entresto 24-26 mg) 1 Tab Tab, 1 TAB PO BID for 30 Days, #60 TAB Prov:[facility] 05/21/24 Sevelamer Carbonate (Renvela) 800 Mg Tab, 1 TAB PO TID for 30 Days, #90 TAB 3 Refills Prov:[facility] 05/21/24 Carvedilol (Carvedilol) 6.25 Mg Tab, 1 TAB PO BID for 30 Days, #60 TAB 1 Refill Prov[facility] 05/21/24 Furosemide (Lasix) 20 Mg Tb, 40 MG PO DAILY for 30 Days, #30 TAB Prov:[facility] 05/21/24 Doxycycline (Monohydrate) (Doxycycline) 100 Mg Cap, 100 MG PO BID for 5 Days, #10 CAP Prov:KEILY GREGG RESIDENT 05/21/24 Amiodarone HCl (Amiodarone HCl) 200 Mg Tab, 400 MG PO DAILY for 30 Days, #60 TAB Prov:MONIQUE MACDONALD [employer] INSTALLER 04/29/24 Digoxin (Lanoxin) 125 Mcg Tab, 0.125 MG PO EOD for 30 Days, #30 TAB Prov:MONIQUE MACDONALD [employer] C[employer] INSTALLER 04/29/24 Reported Medications Apixaban Base (ELIQUIS) 2.5 Mg Tab, 2.5 MG PO BID for 60 Days, #60 04/09/24 Dapagliflozin Propanediol (Farxiga) 10 Mg Tab, 1 TAB PO DAILY for 30 Days, #30 04/09/24 Aripiprazole (Aripiprazole) 5 Mg Tab, 1 TAB PO DAILY for 30 Days, #30 04/09/24 Information Source: Patient, Emergency Med Personnel Mode of Arrival: EMS Timing: Days Duration: Since onset, Days Prehospital treatment: None Quality: None Vomitus: None Stool: Blood Streaked, Black Severity: Moderate Recent: None Recent Hx of: None Pain Location: None Associated sign and symptoms: Blood in Stool Past Medical History PAST MEDICAL HISTORY: CAD, Cancer (Prostate), CHF, ESRD, High Lipids, NH Surgical History: Pacemaker Surgical History (Other): Stents x3 Family History Family History: Reviewed,noncontributory to illness, Unknown Social History Smoker: Non-Smoker Alcohol: Denies ETOH Use Drugs: Denies Drug Use Lives In: Home Constitutional: denies: chills, diaphoresis, fatigue, fever, malaise, sweats, weakness, others EENTM: denies: blurred vision, double vision, ear bleeding, ear discharge, ear drainage, ear pain, ear ringing, eye pain, eye redness, hearing loss, mouth pain, mouth swelling, nasal discharge, nose bleeding, nose congestion, nose pain, photophobia, tearing, throat pain, throat swelling, voice changes, others Respiratory: denies: cough, hemoptysis, orthopnea, SOB at rest, shortness of breath, SOB with excertion, stridor, wheezing, others Cardiovascular: denies: chest pain, dizzy spells, diaphoresis, Dyspnea on exertion, edema, irregular heart beat, left arm pain, lightheadedness, palpitations, PND, syncope, others Gastrointestinal: reports: rectal bleeding; denies: abdomen distended, abdominal pain, blood streaked bowels, constipated, diarrhea, dysphagia, difficulty swallowing, hematemesis, melena, nausea, poor appetite, poor fluid intake, rectal pain, vomiting, others Genitourinary: denies: burning, dysuria, flank pain, frequency, hematuria, incontinence, penile discharge, penile sore, pain, testicle pain, testicle swelling, urgency, others Neurological: denies: dizziness, fainting, headache, left sided numbness, left sided weakness, numbness, paresthesia, pre-existing deficit, right sided numbness, right sided weakness, seizure, speech problems, tingling, tremors, weakness, others Musculoskeletal: denies: back pain, gout, joint pain, joint swelling, muscle pain, muscle stiffness, neck pain, others Integumetry: denies: bruises, change in color, change in hair/nails, dryness, laceration, lesions, lumps, rash, wounds, others Allergic/Immunocompromised: denies: Difficulty Healing, Frequent Infections, Hives, Itching, others Hematologic/Lymphatic: denies: anemia, blood clots, easy bleeding, easy bruising, swollen glands, others Endocrine: denies: excessive hunger, excessive sweating, excessive thirst, excessive urination, flushing, intolerance to cold, intolerance to heat, unexplained weight gain, unexplained weight loss, others Psychiatric: denies: anxiety, bipolar disorder, depression, hopeless, panic disorder, schizophrenia, sleepless, suicidal, others All Other Systems: Reviewed and Negative Physical Exam General Appearance: Moderate Distress, Normal HEENT: Normal ENT Inspection, Pharynx Normal, TMs Normal Neck: Full Range of Motion, Non-Tender, Normal, Normal Inspection Respiratory: Accessory Muscle Use, Chest Non-Tender, Wheezing Cardiovascular: No Edema, No JVD, No Murmur, No Gallop, Normal Peripheral Pulses, Regular Rate/Rhythm Breast Exam: Deferred Gastrointestinal: No Organomegaly, Non Tender, No Pulsatile Mass, Normal Bowel Sounds, Soft Genitalia: Deferred Pelvic: Deferred Rectal: Deferred Extremities: No calf tenderness, Normal capillary refill, Normal range of motion, Non-tender, No pedal edema Musculoskeletal : Apperance: Normal Neurologic: Alert, vocational aide II-XII nml as Tested, No Motor Deficits, Normal Affect, Normal Mood, No Sensory Deficits Cerebellar Function: NOT DONE Reflexes: NOT DONE Skin: Dry, Pallor, Warm Peripheral Pulses: 3+ Radial (R), 3+ Radial (L) Lymphatic: No Adenopathy Was a procedure done? Was a procedure done?: No GI differential Dx Differential Diagnosis: Constipation, Diverticular disease, Esophagitis, Gastritis/PUD, Gastroenteritis X-Ray, Labs, Meds, VS Vital Signs Date Time Temp Pulse Resp B/P (MAP) Pulse Ox O2 Delivery O2 Flow Rate FiO2 07/29/24 06:45 78 07/29/24 06:37 97.8 85 18 125/75 (92) 99 97.8 Lab Test 07/29/24 07:34 Range/Units White Blood Count 2.4 L 4.4-10.8 10^3/uL Red Blood Count 2.15 L 4.5-5.90 10^6/uL Hemoglobin 7.1 L 13.5-17.5 g/dL Hematocrit 21.3 L 41.0-53.0 % Mean Corpuscular Volume 98.9 80.0-100.0 fL Mean Corpuscular Hemoglobin 32.9 H 28.0-32.0 pg Mean Corpuscular Hemoglobin Concent 33.3 32.0-36.0 g/dL Red Cell Distribution Width 22.9 H 11.8-14.3 % Platelet Count 53 L 140-450 10^3/uL Mean Platelet Volume 7.1 6.9-10.8 fL Neutrophils (%) (Auto) 80.7 H 37.0-80.0 % Lymphocytes (%) (Auto) 8.3 L 10.0-50.0 % Monocytes (%) (Auto) 8.0 0.0-12.0 % Eosinophils (%) (Auto) 2.4 0.0-7.0 % Basophils (%) (Auto) 0.6 0.0-2.0 % Neutrophils # (Auto) 2.0 1.6-8.6 10 ^3/uL Lymphocytes # (Auto) 0.2 L 0.4-5.4 10 ^3/uL Monocytes # (Auto) 0.2 0-1.3 10 ^3/uL Eosinophils # (Auto) 0.1 0-0.8 10 ^3/uL Basophils # (Auto) 0 0-0.2 10 ^3/uL Nucleated Red Blood Cells 0.0 % Prothrombin Time Pending Prothrombin Time INR Pending Activated Partial Thromboplast Time Pending Sodium Level Pending Potassium Level Pending Chloride Level Pending Carbon Dioxide Level Pending Anion Gap Pending Blood Urea Nitrogen Pending Creatinine Pending Glomerular Filtration Rate Calc Pending BUN/Creatinine Ratio Pending Serum Glucose Pending Lactic Acid Level Pending Calcium Level Pending Total Bilirubin Pending Aspartate Amino Transferase (AST) Pending Alanine Aminotransferase (ALT) Pending Alkaline Phosphatase Pending B-Type Natriuretic Peptide Pending Total Protein Pending Albumin Pending Patient alert. GI bleed. He is on Plavix. Has a pacemaker. Accessory muscle use. Possible pneumonia. Establish intravenous access. Was given Rocephin. Was given azithromycin. Immunosuppressed. Sepsis. GI consultation. Reviewed his history. Explained to the patient. Continue cardiac monitoring. EKG reviewed does not show any acute changes paced rhythm Time of 1ST Reevaluation: 07:30 Reevaluation 1ST: Unchanged Patient Education/Counseling: Diagnosis, Treatment, Prognosis Family Education/Counseling: No Family Present Departure 1 Departure Time of Disposition: 08:12 Impression: Primary Impression: CHF exacerbation Qualified Codes: I50.43 - Acute on chronic combined systolic (congestive) and diastolic (congestive) heart failure Additional Impressions: Severe anemia Pneumonitis GI bleed Qualified Codes: K92.2 - Gastrointestinal hemorrhage, unspecified ESRD needing dialysis Disposition: ADMITTED INPATIENT Admit to: Med Surg Condition: Guarded Critical Care Note Critical Care Time?: Yes (90 min-critical care time only) Critical care comment: Placed on oxygen Stability Stability form required: No Heart Score Heart Score: Heart Score Response (Comments) Value History Slightly Suspicious 0 EKG Normal 0 Age >65 2 Risk Factors >3 or Hx ASHD 2 Troponin Normal limit 0 Total 4 I personally scribed for GOPI GANN MD ([email or web address]) on 07/29/24 at 07:13. Electronically submitted by Alec Tyson ([email or web address]). GOPI GANN MD Jul 29, 2024 07:13
[2024-07-29] MEDS: AZITHROMYCIN 500MG/ 250ML 250 ML IV ONE (07:15)
[2024-07-29] MEDS: cefTRIAXone 1GM/50ML D5W 50 ML IV ONE (07:15)
[2024-07-29] MEDS: methylPREDNISolone SOD SUCC 125 MG/2 ML VL IV ONE (07:15)
[2024-07-29] MEDS: SODIUM CHLORIDE 0.9% 1,000 ML IV ONE (07:15)
[2024-07-29 07:53] LABS: Basophils # (auto) 0 10 ^3/uL (0-0.2); Eosinophils # (auto) 0.1 10 ^3/uL (0-0.8); Eosinophils % (auto) 2.4 % (0.0-7.0); Lymphocytes # (auto) 0.2 10 ^3/uL (0.4-5.4); Monocytes # (auto) 0.2 10 ^3/uL (0-1.3); White Blood Cell 2.4 10^3/uL (4.4-10.8)
[2024-07-29 07:55] LABS: Basophils % (auto) 0.6 % (0.0-2.0); Hematocrit 21.3 % (41.0-53.0); Hemoglobin 7.1 g/dL (13.5-17.5); Lymphocytes % (auto) 8.3 % (10.0-50.0); Mean Corpuscular Hemoglobin 32.9 pg (28.0-32.0); Mean Corpuscular Hgb Conc. 33.3 g/dL (32.0-36.0); Mean Corpuscular Volume 98.9 fL (80.0-100.0); Neutrophils % (auto) 80.7 % (37.0-80.0); Platelet Count (auto) 53 10^3/uL (140-450); Red Blood Cells 2.15 10^6/uL (4.5-5.90); Red Cell Distribution Width 22.9 % (11.8-14.3)
[2024-07-29 08:16] LABS: INR 1.14 (0.9-1.15); Partial Thromboplastin Time 36.5 SEC (24.5-34.5); Prothrombin Time 11.9 sec (9.3-11.8)
[2024-07-29 08:18] LABS: Alanine Aminotransferase 17 U/L (7-40); Albumin 3.4 g/dL (3.2-4.8); Alkaline Phosphatase 83 U/L (46-116); Anion Gap 5 (5-15); BUN/Creatinine Ratio 8.6 (10.0-20.0); Bilirubin, Total 0.6 mg/dL (0.2-1.0); Glucose 92 mg/dL (74-106); Potassium 4.1 mmol/L (3.5-5.1)
[2024-07-29 08:31] LABS: Aspartate Aminotransferase 13 U/L (13-40); Blood Urea Nitrogen 35 mg/dL (9-23); Carbon Dioxide 34 mmol/L (20-31); Chloride 94 mmol/L (98-107); Sodium 133 mmol/L (136-145)
[2024-07-29 08:32] LABS: Calcium 8.7 mg/dL (8.7-10.4); Total Protein 5.6 g/dL (5.7-8.2)
[2024-07-29] MEDS ORDERED: ACETAMINOPHEN 325 MG TAB PO PRN (10:00)
[2024-07-29] MEDS: PANTOPRAZOLE 40mg/50ML NS AE 50 ML IV ONE (10:05)
--- NOTE | 2024-07-29 10:19 | DVHHP2 ---
History of Present Illness Reason for Visit: Blood in stool History of Present Illness Stanford Fuentes is a 64-year-old male with past medical history of CAD, atrial fibrillation, anemia, ND, CHF, home oxygen, pulmonary hypertension, and ESRD on HD, who came in due to blood in his stool. Patient is residing at [facility]. The staff stated that blood in his stool was noted on Saturday. They stopped giving him his Eliquis and did not see anymore blood in his stool for the next few days. Yesterday they noticed blood in his stool again, it continued this morning as well, so they called EMS for him to come to the hospital. Patient was recently admitted here for over 2 weeks. During his stay he was found down and markie allison was called. CPR was initiated, he was intubated and in ICU for a few days. He also has a history of anemia, and received 4 units of blood during that stay. Patient was not able to tell me why he takes Eliquis. He does have a history of atrial fibrillation, but has undergone heart ablations, and had a pacemaker placed. Cardiovascular: AFIB, CAD, Other (cardiac stents x 3, pacemaker, cardiac ablation x 3) Pulmonary: Other (Pulmonary hypertension) Heme/Onc: Anemia NOS Renal/: Chronic renal failure (on HD-,,) Past Surgical History: Other (cardiac stents x 3, pacemaker, cardiac ablation x 3) Smoke: No ALCOHOL: none Drugs: None Lives: [facility] Review of Systems Constitutional: No: Fever, Chills, Sweats, Weakness, Malaise, Other Eyes: No: Pain, Vision change, Conjunctivae inflammation, Eyelid inflammation, Other, Redness ENT: No: Ear pain, Ear discharge, Nose pain, Nose discharge, Nose congestion, Mouth pain, Mouth swelling, Throat pain, Throat swelling, Other Respiratory: No: Cough, Dry, Shortness of breath, SOB with excertion, Wheezing, Hemoptysis, Pleuritic Pain, Sputum, Wheezing, Other Cardiovascular: No: Chest Pain, Palpitations, Orthopnea, Paroxysmal Noc. Dyspnea, Edema, Lt Headedness, Other Gastrointestinal: Abdominal Pain, Diarrhea, Melena; No: Nausea, Vomiting, Constipation, Hematochezia, Other Genitourinary: No Dysuria, No Frequency, No Incontinence, No Hematuria, No Retention, No Other Musculoskeletal: No: other, neck pain, shoulder pain, arm pain, back pain, hand pain, leg pain, foot pain Skin: No: Rash, Lesions, Jaundice, Bruising, Other Neurological: No: Weakness, Numbness, Incoordination, Change in speech, Confusion, Seizures, Other Allergies: Coded Allergies: NO KNOWN ALLERGIES (Unverified , 04/07/24) Medications Current Medications Medications Dose Ordered Sig/Colleen Route Start Time Stop Time Status Last Admin Dose Admin Sodium Chloride 1,000 ml @ 50 mls/hr Q20H IV 07/29/24 10:00 UNV Ondansetron HCl 4 mg Q4HP PRN IV 07/29/24 10:00 UNV Acetaminophen 650 mg Q6HP PRN PO 07/29/24 10:00 UNV Pantoprazole Sodium 50 ml @ 10 mls/hr Q5H IV 07/29/24 10:00 UNV Octreotide Acetate 500 mcg/ Sodium Chloride 100 ml @ 10 mls/hr Q10H IV 07/29/24 10:00 UNV Exam Vital Signs Vital Signs Date Time Temp Pulse Resp B/P (MAP) Pulse Ox O2 Delivery O2 Flow Rate FiO2 07/29/24 08:00 98.2 80 22 108/66 (80) 100 98.2 07/29/24 08:00 Nasal Cannula* 3 32 General Appearance: Alert, Oriented X3, moderate distress HEENT: Atraumatic, PERRLA Respiratory: Clear to auscultation, Normal air movement Cardiovascular: Normal S1, Normal S2, Other (paced) Abdominal: Normal bowel sounds, Soft, Other (Lower quadrant tenderness) Extremities: No clubbing, No cyanosis, No edema, Normal pulses, No tenderness/swelling Skin: No rashes, No significant lesion (multiple bruises on bilateral upper extremities) Neuro: Normal speech, Other (bedbound at baseline) Psych/Mental Status: Mental status NL, Mood NL Labs/Xrays Labs Test 07/29/24 07:34 Range/Units White Blood Count 2.4 L 4.4-10.8 10^3/uL Red Blood Count 2.15 L 4.5-5.90 10^6/uL Hemoglobin 7.1 L 13.5-17.5 g/dL Hematocrit 21.3 L 41.0-53.0 % Mean Corpuscular Volume 98.9 80.0-100.0 fL Mean Corpuscular Hemoglobin 32.9 H 28.0-32.0 pg Mean Corpuscular Hemoglobin Concent 33.3 32.0-36.0 g/dL Red Cell Distribution Width 22.9 H 11.8-14.3 % Platelet Count 53 L 140-450 10^3/uL Mean Platelet Volume 7.1 6.9-10.8 fL Neutrophils (%) (Auto) 80.7 H 37.0-80.0 % Lymphocytes (%) (Auto) 8.3 L 10.0-50.0 % Monocytes (%) (Auto) 8.0 0.0-12.0 % Eosinophils (%) (Auto) 2.4 0.0-7.0 % Basophils (%) (Auto) 0.6 0.0-2.0 % Neutrophils # (Auto) 2.0 1.6-8.6 10 ^3/uL Lymphocytes # (Auto) 0.2 L 0.4-5.4 10 ^3/uL Monocytes # (Auto) 0.2 0-1.3 10 ^3/uL Eosinophils # (Auto) 0.1 0-0.8 10 ^3/uL Basophils # (Auto) 0 0-0.2 10 ^3/uL Nucleated Red Blood Cells 0.0 % Prothrombin Time 11.9 H 9.3-11.8 sec Prothrombin Time INR 1.14 0.9-1.15 Activated Partial Thromboplast Time 36.5 H 24.5-34.5 SEC Sodium Level 133 L 136-145 mmol/L Potassium Level 4.1 3.5-5.1 mmol/L Chloride Level 94 L 98-107 mmol/L Carbon Dioxide Level 34 H 20-31 mmol/L Anion Gap 5 5-15 Blood Urea Nitrogen 35 H 9-23 mg/dL Creatinine 4.07 H 0.700-1.30 mg/dL Glomerular Filtration Rate Calc 16 >90 mL/min BUN/Creatinine Ratio 8.6 L 10.0-20.0 Serum Glucose 92 74-106 mg/dL Lactic Acid Level 0.8 0.4-2.0 mmol/L Calcium Level 8.7 8.7-10.4 mg/dL Total Bilirubin 0.6 0.2-1.0 mg/dL Aspartate Amino Transferase (AST) 13 13-40 U/L Alanine Aminotransferase (ALT) 17 7-40 U/L Alkaline Phosphatase 83 46-116 U/L B-Type Natriuretic Peptide 1049.38 0-100 pg/mL Total Protein 5.6 L 5.7-8.2 g/dL Albumin 3.4 3.2-4.8 g/dL Assessment/Plan Assessment/Plan Assessment: GI bleed, thrombocytopenia, CHF, ESRD on HD, Hyperlipidemia, Plan: Admit to Tele, Urgent GI consult, Nephrology consult, Type and Cross patient, Transfuse 1 unit PRBC, Mange/Monitor H&H closely, CT abdomen/pelvis WO contrast, Clear liquid diet, Protonix drip, Sandostatin drip, Home medications reconciled, Plan discussed with: Patient My Orders Orders - RAIZA CINTRON Procedure Category Date Status Time * Gi Dvh Wet Silk Hanger CONS 07/29/24 Transmitted 09:52 Admit ADMIT 07/29/24 Transmitted 09:52 Code Status CODE 07/29/24 Transmitted 09:52 Sodium Chloride 0.9% PHA 07/29/24 Logged 10:00 Ondansetron Hcl PHA 07/29/24 Logged (Zofran) 10:00 Complete Blood Count LAB 07/30/24 Verified 04:00 Comprehensive LAB 07/30/24 Verified Metabolic Panel 04:00 Pt Request For Service PT 07/29/24 Logged 09:52 Condition: Serious LETICIA 07/29/24 In Process 09:52 Acetaminophen Tablet PHA 07/29/24 Logged (Tylenol Tablet) 10:00 Clear Liq Diet DIET 07/29/24 Transmitted Lunch Pantoprazole PHA 07/29/24 Logged 40mg/50ml Ns Ae 10:00 Octreotide Acetate PHA 07/29/24 Logged (Sandostatin) 10:00 Sodium Chl 0.9% PHA 07/29/24 Logged (So... W/Octreotide 10:00 Stool Occult Blood LAB 07/29/24 Logged 09:52 Packedcells -Active BBK 07/29/24 Verified Bleeding 09:57 Type And Screen BBK 07/29/24 Verified 09:57 Vital Signs LETICIA 07/29/24 Verified 09:57 Date of Service: Jul 29, 2024 Billing Provider: RAIZA CINTRON Common Visit Codes: [id number] INP/OBS CARE (HIGH) RAIZA CINTRON Jul 29, 2024 10:19
[2024-07-29] MEDS: OCTREOTIDE ACETATE 100 MCG in SODIUM CHL 0.9% 50 ML IV ONE (10:37)
[2024-07-29] MEDS: PANTOPRAZOLE 40mg/50ML NS AE 50 ML IV SCH (10:38)
[2024-07-29] MEDS: SODIUM CHLORIDE 0.9% 1,000 ML IV SCH (10:39)
[2024-07-29] MEDS: OCTREOTIDE ACETATE 500 MCG in SODIUM CHL 0.9% 99 ML IV SCH (11:36)
--- NOTE | 2024-07-29 13:30 | DVH ---
Procedure: CT CT AB PEL WO CON-NO ORAL OR IV 07/29/2024 10:20 AM Indication: GI bleed Comparison Study: Chest CT scan dated 06/29/2024 Technique: Axial images were obtained and reformatted in coronal and sagittal planes. All CT scans at this medical facility are performed using dose modulation techniques as appropriate to a performed e xam including the following: Automated exposure control was utilized; adjustment of the MA and/or KV according to patient size; and use of iterative reconstruction technique. CT Dose: CTDI volume is 12. 54 mGy. Dose-length product is 806.5 mGy*cm FINDINGS: Lower Chest: Moderate cardiomegaly. Pacer wires are seen. Calcification of the left ventricular wal l noted. Suggestion of anemia. Moderate right pleural effusion. Moderate bilateral lower lung zone p ulmonary opacities. Hepatobiliary: Noted. markable. Subcentimeter calcifications in linear pattern noted in the right and left hepatic lobes. A Spleen: Unremarkable. Pancreas: Unremarkable. Adrenal Glands: Unremarkable. tract: The kidneys are moderately atrophic bilaterally containing several small cysts. hydronephro sis or nephrolithiasis. A right posterior bladder wall diverticulum noted. No bladder calculi. GI tract: The stomach is grossly normal in appearance. No evidence of small bowel obstruction. The la rge bowel is unremarkable. Mild circumferential mural thickening of rectal wall. The appendix is norm al. Lymphatics: No mesenteric, retroperitoneal or periportal lymphadenopathy. Vasculature: The abdominal aorta is normal in caliber. Diffuse calcified plaque formation is noted. Pelvic Organs: Unremarkable Bones/soft tissues: Diffuse body wall edema. Other: None. IMPRESSION: 1. Moderate right pleural effusion moderate bilateral lower lung zone pulmonary opacities represent p neumonia or atelectasis.Moderate 2. Moderate cardiomegaly . 3. Suggestion of anemia. 4. Diffuse atherosclerotic disease. 5. Several subcentimeter calcifications in the liver and in portal hepatis along the vessels that are of uncertain etiology. 6. Atrophic kidneys bilaterally containing several small renal cysts. 7. Mild circumferential rectal wall thickening that could be related to incomplete distention or refl ect mural inflammation or infiltrative mural lesion. Recommend clinical and biochemical correlation.
--- NOTE | 2024-07-29 16:09 | DVHINCON2 ---
Date of service: Jul 29, [address] Horn Reason for Consultation End-stage kidney disease on hemodialysis History of Present Illness This is a 64-year-old male with history of end-stage kidney disease on hemodialysis, coronary artery disease, history of atrial fibrillation, chronic anemia, congestive heart failure, pulmonary hypertension brought into the emergency room because of blood in his stool. Patient is a resident at [facility]. It was noted that he had blood in his stool on Saturday. He was on Eliquis which was discontinued. But blood was again noticed in his stool yesterday and hence brought into the emergency room. Initial evaluation in the emergency room noted that the patient was anemic with a hemoglobin of 7.1. Patient is being admitted for further evaluation and workup. As per the history patient had a recent admission at [facility] at which time he had coded and was on the ventilator for a few days. At that time he had received about 4 units of PRBC. Nephrology has been consulted for continuation of dialysis. Past Medical History End-stage kidney disease on hemodialysis, AFIB, CAD, Other (cardiac stents x 3, pacemaker, cardiac ablation x 3), pulmonary hypertension, anemia Past Surgical History Other (cardiac stents x 3, pacemaker, cardiac ablation x 3) Family History: Hypertension G8 MOTHER G8 FATHER Family History Noncontributory Social History Resident at residential facility Allergies: Coded Allergies: NO KNOWN ALLERGIES (Unverified , 04/07/24) Home Meds Active Scripts Famotidine (PEPCID TABLET) 20 Mg Tb, 1 TAB PO BID for 30 Days, #60 TAB 5 [facility]24 Sacubitril-Valsartan (Entresto 24-26 mg) 1 Tab Tab, 1 TAB PO BID for 30 Days, #60 [facility]24 Sevelamer Carbonate (Renvela) 800 Mg Tab, 1 TAB PO TID for 30 Days, #90 TAB 3 [facility] 05/21/24 Carvedilol (Carvedilol) 6.25 Mg Tab, 1 TAB PO BID for 30 Days, #60 TAB 1 [facility] 05/21/24 Furosemide (Lasix) 20 Mg Tb, 40 MG PO DAILY for 30 Days, #30 TAB Prov:KEILY GREGG RESIDENT 05/21/24 Doxycycline (Monohydrate) (Doxycycline) 100 Mg Cap, 100 MG PO BID for 5 Days, #10 CAP Prov:KEILY GREGG RESIDENT 05/21/24 Amiodarone HCl (Amiodarone HCl) 200 Mg Tab, 400 MG PO DAILY for 30 Days, #60 TAB Prov:MONIQUE MACDONALD INTERMEDIATE FRAME TENDER 04/29/24 Digoxin (Lanoxin) 125 Mcg Tab, 0.125 MG PO EOD for 30 Days, #30 TAB Prov:MONIQUE MACDONALD INTERMEDIATE FRAME TENDER 04/29/24 Reported Medications Apixaban Base (ELIQUIS) 2.5 Mg Tab, 2.5 MG PO BID for 60 Days, #60 04/09/24 Dapagliflozin Propanediol (Farxiga) 10 Mg Tab, 1 TAB PO DAILY for 30 Days, #30 04/09/24 Aripiprazole (Aripiprazole) 5 Mg Tab, 1 TAB PO DAILY for 30 Days, #30 04/09/24 Current Medications Current Medications Medications (Trade) Dose Ordered Sig/Colleen Route PRN Reason Start Time Stop Time Status Last Admin Sodium Chloride 1,000 ml @ 50 mls/hr Q20H IV 07/29/24 10:00 07/29/24 10:39 Ondansetron HCl (Zofran) 4 mg Q4HP PRN IV NAUSEA / VOMITING 07/29/24 10:00 Acetaminophen (Tylenol Tablet) 650 mg Q6HP PRN PO PAIN SCALE 1-3 OR TEMP>100.4 07/29/24 10:00 Pantoprazole Sodium 50 ml @ 10 mls/hr Q5H IV 07/29/24 10:00 07/29/24 15:11 Octreotide Acetate 500 mcg/ Sodium Chloride 100 ml @ 10 mls/hr Q10H IV 07/29/24 10:00 07/29/24 11:36 Review of Systems 12 point review of system negative except as stated in the HPI Vital Signs Vital Signs Date Time Temp Pulse Resp B/P (MAP) Pulse Ox O2 Delivery O2 Flow Rate FiO2 07/29/24 12:00 89 07/29/24 08:00 98.2 22 108/66 (80) 100 98.2 07/29/24 08:00 Nasal Cannula* 3 32 Physical Exam Alert and awake HEENT: Normocephalic, no JVD Lungs: Diminished breath sounds at bases CVS: S1, S2 regular rate rhythm Abdomen: Soft, bowel sounds present MED SPEC: No focal deficits Labs/Diagnostic Data Labs Test 07/29/24 07:34 Range/Units White Blood Count 2.4 L 4.4-10.8 10^3/uL Red Blood Count 2.15 L 4.5-5.90 10^6/uL Hemoglobin 7.1 L 13.5-17.5 g/dL Hematocrit 21.3 L 41.0-53.0 % Mean Corpuscular Volume 98.9 80.0-100.0 fL Mean Corpuscular Hemoglobin 32.9 H 28.0-32.0 pg Mean Corpuscular Hemoglobin Concent 33.3 32.0-36.0 g/dL Red Cell Distribution Width 22.9 H 11.8-14.3 % Platelet Count 53 L 140-450 10^3/uL Mean Platelet Volume 7.1 6.9-10.8 fL Neutrophils (%) (Auto) 80.7 H 37.0-80.0 % Lymphocytes (%) (Auto) 8.3 L 10.0-50.0 % Monocytes (%) (Auto) 8.0 0.0-12.0 % Eosinophils (%) (Auto) 2.4 0.0-7.0 % Basophils (%) (Auto) 0.6 0.0-2.0 % Neutrophils # (Auto) 2.0 1.6-8.6 10 ^3/uL Lymphocytes # (Auto) 0.2 L 0.4-5.4 10 ^3/uL Monocytes # (Auto) 0.2 0-1.3 10 ^3/uL Eosinophils # (Auto) 0.1 0-0.8 10 ^3/uL Basophils # (Auto) 0 0-0.2 10 ^3/uL Nucleated Red Blood Cells 0.0 % Prothrombin Time 11.9 H 9.3-11.8 sec Prothrombin Time INR 1.14 0.9-1.15 Activated Partial Thromboplast Time 36.5 H 24.5-34.5 SEC Sodium Level 133 L 136-145 mmol/L Potassium Level 4.1 3.5-5.1 mmol/L Chloride Level 94 L 98-107 mmol/L Carbon Dioxide Level 34 H 20-31 mmol/L Anion Gap 5 5-15 Blood Urea Nitrogen 35 H 9-23 mg/dL Creatinine 4.07 H 0.700-1.30 mg/dL Glomerular Filtration Rate Calc 16 >90 mL/min BUN/Creatinine Ratio 8.6 L 10.0-20.0 Serum Glucose 92 74-106 mg/dL Lactic Acid Level 0.8 0.4-2.0 mmol/L Calcium Level 8.7 8.7-10.4 mg/dL Total Bilirubin 0.6 0.2-1.0 mg/dL Aspartate Amino Transferase (AST) 13 13-40 U/L Alanine Aminotransferase (ALT) 17 7-40 U/L Alkaline Phosphatase 83 46-116 U/L B-Type Natriuretic Peptide 1049.38 0-100 pg/mL Total Protein 5.6 L 5.7-8.2 g/dL Albumin 3.4 3.2-4.8 g/dL Assessment End-stage kidney disease on hemodialysis GI bleed Anemia secondary to above Bilateral pleural effusion CT abdomen with evidence of rectal wall thickening Thrombocytopenia CAD /CHF Hyperlipidemia Plan/Recommendation No acute indication for hemodialysis Continue with octreotide and Protonix drip. Patient being transfused 1 unit of PRBC. GI evaluation. Hemodialysis tomorrow. Plan discussed with: Other YANET VALLADARES MD Jul 29, 2024 16:09
--- NOTE | 2024-07-29 17:27 | DVHCONRES ---
Date Seen: Jul 29, 2024 Resident Creating Document: SHIRA BEARD RESIDENT Referring Physician JAYLA Dotson Reason for Consultation GI bleeding History of Present Illness 64-year-old male with past medical history of CAD, atrial fibrillation, anemia, CT, CHF, home oxygen, pulmonary hypertension, and ESRD on HD, who came in due to blood in his stool. Patient is residing at [facility]. The staff stated that blood in his stool was noted on Saturday. They stopped giving him his Eliquis and did not see anymore blood in his stool for the next few days. Yesterday they noticed blood in his stool again, it continued this morning as well, so they called EMS for him to come to the hospital. He also has a history of anemia, and received 6 units of PRBS during last hospitalization 2 weeks back. Family History: Hypertension G8 MOTHER G8 FATHER Allergies: Coded Allergies: NO KNOWN ALLERGIES (Unverified , 04/07/24) Home Meds Active Scripts Famotidine (PEPCID TABLET) 20 Mg Tb, 1 TAB PO BID for 30 Days, #60 TAB 5 Refills Prov:[facility] 05/21/24 Sacubitril-Valsartan (Entresto 24-26 mg) 1 Tab Tab, 1 TAB PO BID for 30 Days, #60 TAB Prov:[facility] 05/21/24 Sevelamer Carbonate (Renvela) 800 Mg Tab, 1 TAB PO TID for 30 Days, #90 TAB 3 Refills Prov:[facility] 05/21/24 Carvedilol (Carvedilol) 6.25 Mg Tab, 1 TAB PO BID for 30 Days, #60 TAB 1 Refill Prov:[facility] 05/21/24 Furosemide (Lasix) 20 Mg Tb, 40 MG PO DAILY for 30 Days, #30 TAB Prov:[facility] 05/21/24 Doxycycline (Monohydrate) (Doxycycline) 100 Mg Cap, 100 MG PO BID for 5 Days, #1 0 CAP Prov:[facility] 05/21/24 Amiodarone HCl (Amiodarone HCl) 200 Mg Tab, 400 MG PO DAILY for 30 Days, #60 TAB Prov:MONIQUE MACDONALD NP 12/18/24 Digoxin (Lanoxin) 125 Mcg Tab, 0.125 MG PO EOD for 30 Days, #30 TAB Prov:MONIQUE MACDONALD BUFFET MANAGER 04/29/24 Reported Medications Apixaban Base (ELIQUIS) 2.5 Mg Tab, 2.5 MG PO BID for 60 Days, #60 04/09/24 Dapagliflozin Propanediol (Farxiga) 10 Mg Tab, 1 TAB PO DAILY for 30 Days, #30 04/09/24 Aripiprazole (Aripiprazole) 5 Mg Tab, 1 TAB PO DAILY for 30 Days, #30 04/09/24 Current Medications Current Medications Medications (Trade) Dose Ordered Sig/Colleen Route PRN Reason Start Time Stop Time Status Last Admin Sodium Chloride 1,000 ml @ 50 mls/hr Q20H IV 07/29/24 10:00 07/29/24 10:39 Ondansetron HCl (Zofran) 4 mg Q4HP PRN IV NAUSEA / VOMITING 07/29/24 10:00 Acetaminophen (Tylenol Tablet) 650 mg Q6HP PRN PO PAIN SCALE 1-3 OR TEMP>100.4 07/29/24 10:00 Pantoprazole Sodium 50 ml @ 10 mls/hr Q5H IV 07/29/24 10:00 07/29/24 15:11 Octreotide Acetate 500 mcg/ Sodium Chloride 100 ml @ 10 mls/hr Q10H IV 07/29/24 10:00 07/29/24 11:36 Review of Systems Constitutional: No: Fever, Chills, Sweats, Weakness, Malaise, Other Eyes: No: Pain, Vision change, Conjunctivae inflammation, Eyelid inflammation, Other, Redness ENT: No: Ear pain, Ear discharge, Nose pain, Nose discharge, Nose congestion, Mouth pain, Mouth swelling, Throat pain, Throat swelling, Other Respiratory: No: Cough, Dry, Shortness of breath, SOB with excertion, Wheezing, Hemoptysis, Pleuritic Pain, Sputum, Wheezing, Other Cardiovascular: No: Chest Pain, Palpitations, Orthopnea, Paroxysmal Noc. Dyspnea, Edema, Lt Headedness, Other Gastrointestinal: Abdominal Pain, Diarrhea, Melena; No: Nausea, Vomiting, Constipation, Hematochezia, Other Genitourinary: No Dysuria, No Frequency, No Incontinence, No Hematuria, No Retention, No Other Musculoskeletal: No: other, neck pain, shoulder pain, arm pain, back pain, hand pain, leg pain, foot pain Skin: No: Rash, Lesions, Jaundice, Bruising, Other Neurological: No: Weakness, Numbness, Incoordination, Vital Signs Vital Signs Date Time Temp Pulse Resp B/P (MAP) Pulse Ox O2 Delivery O2 Flow Rate FiO2 07/29/24 16:00 83 07/29/24 08:00 98.2 22 108/66 (80) 100 98.2 07/29/24 08:00 Nasal Cannula* 3 32 Physical Exam General Appearance: moderate distress, bedbound at baseline HEENT: Atraumatic, PERRLA Respiratory: Clear to auscultation, Normal air movement Cardiovascular: Normal S1, Normal S2, Other (paced) Abdominal: Normal bowel sounds, Soft, Other (Lower quadrant tenderness) Extremities: No clubbing, No cyanosis, No edema, Normal pulses, No tenderness/swelling Skin: No rashes, No significant lesion (multiple bruises on bilateral upper extremities) Neuro: Alert, Oriented X3, Labs/Diagnostic Data Labs Test 07/29/24 07:34 Range/Units White Blood Count 2.4 L 4.4-10.8 10^3/uL Red Blood Count 2.15 L 4.5-5.90 10^6/uL Hemoglobin 7.1 L 13.5-17.5 g/dL Hematocrit 21.3 L 41.0-53.0 % Mean Corpuscular Volume 98.9 80.0-100.0 fL Mean Corpuscular Hemoglobin 32.9 H 28.0-32.0 pg Mean Corpuscular Hemoglobin Concent 33.3 32.0-36.0 g/dL Red Cell Distribution Width 22.9 H 11.8-14.3 % Platelet Count 53 L 140-450 10^3/uL Mean Platelet Volume 7.1 6.9-10.8 fL Neutrophils (%) (Auto) 80.7 H 37.0-80.0 % Lymphocytes (%) (Auto) 8.3 L 10.0-50.0 % Monocytes (%) (Auto) 8.0 0.0-12.0 % Eosinophils (%) (Auto) 2.4 0.0-7.0 % Basophils (%) (Auto) 0.6 0.0-2.0 % Neutrophils # (Auto) 2.0 1.6-8.6 10 ^3/uL Lymphocytes # (Auto) 0.2 L 0.4-5.4 10 ^3/uL Monocytes # (Auto) 0.2 0-1.3 10 ^3/uL Eosinophils # (Auto) 0.1 0-0.8 10 ^3/uL Basophils # (Auto) 0 0-0.2 10 ^3/uL Nucleated Red Blood Cells 0.0 % Prothrombin Time 11.9 H 9.3-11.8 sec Prothrombin Time INR 1.14 0.9-1.15 Activated Partial Thromboplast Time 36.5 H 24.5-34.5 SEC Sodium Level 133 L 136-145 mmol/L Potassium Level 4.1 3.5-5.1 mmol/L Chloride Level 94 L 98-107 mmol/L Carbon Dioxide Level 34 H 20-31 mmol/L Anion Gap 5 5-15 Blood Urea Nitrogen 35 H 9-23 mg/dL Creatinine 4.07 H 0.700-1.30 mg/dL Glomerular Filtration Rate Calc 16 >90 mL/min BUN/Creatinine Ratio 8.6 L 10.0-20.0 Serum Glucose 92 74-106 mg/dL Lactic Acid Level 0.8 0.4-2.0 mmol/L Calcium Level 8.7 8.7-10.4 mg/dL Total Bilirubin 0.6 0.2-1.0 mg/dL Aspartate Amino Transferase (AST) 13 13-40 U/L Alanine Aminotransferase (ALT) 17 7-40 U/L Alkaline Phosphatase 83 46-116 U/L B-Type Natriuretic Peptide 1049.38 0-100 pg/mL Total Protein 5.6 L 5.7-8.2 g/dL Albumin 3.4 3.2-4.8 g/dL Assessment # GI bleed, # Possible proctitis # Anemia # Thrombocytopenia, # CHF, # ESRD on HD, # Hyperlipidemia, #Atrial fibrillation #CAD status post 3 stents Plan/Recommendation -CT abdomen/pelvis WO contrast: Mild circumferential rectal wall thickening that could be related to incomplete distention or reflect mural inflammation or infiltrative mural lesion. -Transfuse 1 unit PRBC, - Clear liquid diet, - Protonix drip, - Octeriotide drip, - Stuart down Protonix drip and Octeriotide drip when bleeding improved - Patient is high risk for any GI procedure for now - Possible colonoscopy when patient is medically stable. - HD as schedule Thank you so much for the opportunity to consult on your patient. GI team will follow the patient. In case of any questions or concerns please feel free to reach out. Case discussed with Dr. Emma Contreras. The patient and caregiver team agreed to the plan. Plan discussed with: Patient ANGESHAGGYSHIRA RESIDENT Jul 29, 2024 17:27
[2024-07-29 18:32] VITALS: BP 158/53; PULSE 81; RESP 25; TEMP 98.1
[2024-07-29 18:50] VITALS: BP 138/60; PULSE 81; RESP 24; TEMP 97.9
[2024-07-29 20:03] VITALS: PULSE 82; RESP 24; O2SAT 100
[2024-07-29 21:30] LABS: Rapid Influenza A Negative (Negative); Rapid Influenza B Negative (Negative)
[2024-07-29 21:31] LABS: COVID19 ANTIGEN SOFIA FIA NEGATIVE (NEGATIVE)
[2024-07-29 23:45] VITALS: BP 149/78; PULSE 80; RESP 20; TEMP 97.6; O2SAT 100
[2024-07-29 23:57] VITALS: BP 149/78; PULSE 80; RESP 20; TEMP 97.6; O2SAT 100
[2024-07-30] VITALS (8 sets, daily range): BP systolic 99–149; BP diastolic 56–80; PULSE 72–82; RESP 16–22; TEMP 97.1–98.4; O2SAT 100
[2024-07-30 06:43] LABS: Basophils # (auto) 0 10 ^3/uL (0-0.2); Eosinophils # (auto) 0.1 10 ^3/uL (0-0.8); Hemoglobin 8.3 g/dL (13.5-17.5); Lymphocytes # (auto) 0.3 10 ^3/uL (0.4-5.4); Neutrophils # (auto) 2.3 10 ^3/uL (1.6-8.6); Nucleated Red Blood Cells % 0.1 %; White Blood Cell 2.9 10^3/uL (4.4-10.8)
[2024-07-30 06:46] LABS: Basophils % (auto) 0.9 % (0.0-2.0); Eosinophils % (auto) 3.7 % (0.0-7.0); Hematocrit 24.5 % (41.0-53.0); Lymphocytes % (auto) 10.3 % (10.0-50.0); Mean Corpuscular Hemoglobin 33.6 pg (28.0-32.0); Mean Corpuscular Hgb Conc. 33.8 g/dL (32.0-36.0); Mean Corpuscular Volume 99.4 fL (80.0-100.0); Monocytes # (auto) 0.2 10 ^3/uL (0-1.3); Monocytes % (auto) 7.7 % (0.0-12.0); Neutrophils % (auto) 77.4 % (37.0-80.0); Platelet Count (auto) 50 10^3/uL (140-450); Red Blood Cells 2.47 10^6/uL (4.5-5.90); Red Cell Distribution Width 21.9 % (11.8-14.3)
[2024-07-30 07:15] LABS: Alanine Aminotransferase 17 U/L (7-40); Albumin 3.4 g/dL (3.2-4.8); Alkaline Phosphatase 77 U/L (46-116); Anion Gap 8 (5-15); Aspartate Aminotransferase 16 U/L (13-40); BUN/Creatinine Ratio 7.6 (10.0-20.0); Calcium 8.7 mg/dL (8.7-10.4); Carbon Dioxide 29 mmol/L (20-31); Potassium 4.7 mmol/L (3.5-5.1)
[2024-07-30 07:16] LABS: Bilirubin, Total 0.8 mg/dL (0.2-1.0)
[2024-07-30 07:24] LABS: Blood Urea Nitrogen 36 mg/dL (9-23); Chloride 95 mmol/L (98-107); Glucose 128 mg/dL (74-106); Sodium 132 mmol/L (136-145); Total Protein 5.6 g/dL (5.7-8.2)
--- NOTE | 2024-07-30 08:50 | DVH ---
US CHEST ULTRASOUND, HISTORY: moderate right pleural effusion on ct COMPARISON(S): None TECHNICAL DATA: Transverse and longitudinal images are obtained of the chest. FINDING: IMPRESSION(S): Moderate right pleural effusion.
[2024-07-30 09:04] LABS: Ferritin 932.6 ng/mL (22-322)
[2024-07-30 09:05] LABS: Folate (Folic Acid) 9.27 ng/mL (>5.38)
[2024-07-30] MEDS: SEVELAMER 800 MG TAB PO SCH (09:18)
[2024-07-30] MEDS: AMIODARONE HCL 200 MG TAB PO SCH (09:18)
--- NOTE | 2024-07-30 09:57 | DVH ---
EXAM: XY CHEST PORTABLE Indication: sob Technique: Single frontal view of the chest was obtained Comparison: XY CHEST XRAY 1 VIEW on DOS: 07/18/24, XY CHEST PORTABLE on DOS: 07/15/24, XY CHEST PORTABLE on DOS: 07/09/24, XY CHEST PORTABLE on DOS: 07/09/24, XY CHEST PORTABLE on DOS: 07/09/24 FINDINGS: Lines and Tubes: Cardiac pacemaker projects over left chest wall. Right central venous catheter tip p rojects over the superior vena cava. Lungs: Left basilar opacity. Pulmonary edema. Pleura: Small left pleural effusion. Trace right pleural effusion. No pneumothorax. Cardiomediastinal contours: Cardiomegaly. Bones: No acute osseous abnormality. IMPRESSION: Cardiomegaly with small left and trace right pleural effusion. Left basilar opacity.
--- NOTE | 2024-07-30 10:59 | DVHPN2 ---
Progress Note Date Seen: Jul 30, 2024 Resident Creating Document: JUAN REECE RESIDENT Medical Necessity Reason Pt with a Central, PICC or Fol: No Subjective Review of Systems 64-year-old male with past medical history of CAD, atrial fibrillation, anemia, RI, CHF, on home oxygen, pulmonary hypertension, and ESRD on HD, who came in due to hematochezia. Patient is residing at [facility]. The staff stated that blood in his stool was noted on Saturday. They stopped giving him his Eliquis and did not see anymore blood in his stool for the next few days. Yesterday they noticed blood in his stool again, it continued this morning as well, so they called EMS for him to come to the hospital. He also has a history of anemia, and received 6 units of PRBS during last hospitalization 2 weeks back. At the time of my assessment, patient is currently s/p thoracentesis. Reports having nausea and dry heaving, but no vomiting. Last bowel movement was this a.m. and soft and he noticed some blood in stool, RN denies having seen blood in stool, we will order H and H for this afternoon and monitor. Per patient his last colonoscopy was 2 years ago at [facility] and was unremarkable. Denies ever having had EGD in the past. Objective vital signs Vital Sign Date Time Temp Pulse Resp B/P (MAP) Pulse Ox O2 Delivery O2 Flow Rate FiO2 07/30/24 09:00 98.4 80 18 120/68 (85) 100 98.4 07/29/24 23:57 Nasal Cannula* 3 32 Total Intake and Output 07/29/24 07/29/24 07/30/24 15:00 23:00 07:00 Intake Total 81 ml 680 ml Balance 81 ml 680 ml medications Current Medications Medications Dose Ordered Sig/Colleen Route Start Time Stop Time Status Last Admin Dose Admin Ondansetron HCl 4 mg Q4HP PRN IV 07/29/24 10:00 Acetaminophen 650 mg Q6HP PRN PO 07/29/24 10:00 Pantoprazole Sodium 50 ml @ 10 mls/hr Q5H IV 07/29/24 10:00 07/30/24 06:55 10 MLS/HR Octreotide Acetate 500 mcg/ Sodium Chloride 100 ml @ 10 mls/hr Q10H IV 07/29/24 10:00 07/30/24 06:21 10 MLS/HR Amiodarone HCl 400 mg DAILY PO 07/30/24 10:00 07/30/24 09:18 400 MG Sevelamer HCl 800 mg TIDWM PO 07/30/24 08:00 07/30/24 09:18 800 MG Piperacillin Sod/ Tazobactam Sod 50 ml @ 12.5 mls/hr Q12HR IV 07/30/24 10:00 Examination General Appearance: moderate distress, bedbound at baseline HEENT: Atraumatic, PERRLA Respiratory: Clear to auscultation, Normal air movement Cardiovascular: Normal S1, Normal S2, Other (paced) Abdominal: Normal bowel sounds, Soft, Other (Lower quadrant tenderness) Extremities: No clubbing, No cyanosis, No edema, Normal pulses, No tenderness/swelling Skin: No rashes, No significant lesion (multiple bruises on bilateral upper extremities) Neuro: Alert, Oriented X3, laboratory and microbiology Laboratory Tests 07/30/24 06:08 Test 07/30/24 06:08 Range/Units Serum Glucose 128 H 74-106 mg/dL Microbiology Date/Time Source Procedure Growth Status 07/29/24 07:34 Blood Blood Culture - Preliminary NO GROWTH AFTER 24 HOURS OF INCUBATION. Resulted Labs and/or images reviewed: Labs reviewed by me, Image(s) reviewed by me Problem List/Assessment/Plan Problem List/Assessment/Plan GI bleed, Possible proctitis Anemia Thrombocytopenia, CHF, ESRD on HD, Hyperlipidemia, Atrial fibrillation CAD status post 3 stents Moderate right-sided pleural effusion Plan/Recommendation -CT abdomen/pelvis WO contrast: Mild circumferential rectal wall thickening that could be related to incomplete distention or reflect mural inflammation or infiltrative mural lesion. - Clear liquid diet - we will monitor H and H - discontinue octreotide drip - after current Protonix drip ends, transition to IV Protonix 40 b.i.d. - Patient is high risk for any GI procedure for now - Possible colonoscopy when patient is medically stable. - HD as schedule Thank you so much for the opportunity to consult on your patient. GI team will follow the patient. In case of any questions or concerns please feel free to reach out. Plan discussed with Dr. Emma Contreras Plan discussed with: Patient, Other (RN) CC Plasma Assessment Blood Product Administration S: [id number] JUAN REECE RESIDENT Jul 30, 2024 10:59
--- NOTE | 2024-07-30 11:54 | DVH ---
XY CHEST PORTABLE, HISTORY: POST THORACENTESIS COMPARISON: XY CHEST PORTABLE on DOS: 07/30/24, XY CHEST XRAY 1 VIEW on DOS: 07/18/24, XY CHEST PORTABLE on DOS: 07/15/24 XY CHEST PORTABLE on DOS: 07/30/24, XY CHEST XRAY 1 VIEW on DOS: 07/18/24, XY CHEST PORTABLE on DOS: 07/15 TECHNICAL DATA: 1 view of the chest was obtained. FINDINGS: Lines and tubes: Stable Cardiomediastinal silhouette: Enlarged Pulmonary vasculature: normal Lung expansion: Similar Lung airspace: Similar Lung interstitium: Similar Pleura: Small left effusion. Pneumothorax: no Bones: Unremarkable Other: no IMPRESSION: No pneumothorax seen.
--- NOTE | 2024-07-30 11:55 | DVH ---
US THORACENTESIS, HISTORY: right pleural effusion PROCEDURE: Informed consent was obtained. The patient was decubitus on the bed. A limited localizatio n ultrasound of the right thorax was obtained, and the optimal approach was marked on the skin. The a [place] was prepped with chlorhexidine which was allowed to dry and draped in the usual sterile fashion. Time out was performed. The skin and the soft tissues were infiltrated with 1% lidocaine. A 5.5 Frenc h centesis needle catheter was advanced into right pleural space. Following aspiration of fluid, the catheter was advanced and the needle removed. About 1500 cc of fluid was drained. No immediate compl ication was identified. FINDINGS: Moderate right pleural effusion. Aspirated fluid is clear and serous. IMPRESSION: Successful right thoracentesis with 1.5L removed.
[2024-07-30] MEDS: PIPERACILLIN-TAZOB 2.25GM 50 ML IV SCH (12:03)
[2024-07-30 15:15] LABS: Hemoglobin 9.1 g/dL (13.5-17.5)
[2024-07-30 16:32] LABS: Urine Bacteria None Seen /hpf (None Seen)
[2024-07-30 17:10] LABS: Urine Blood 1+ /uL (Negative); Urine Clarity Clear (Clear); Urine Color Yellow (Yellow); Urine Protein, UAD 1+ (Negative); Urine Specific Gravity 1.009 (1.001-1.035); Urine Squamous Epithelial Cell FEW /hpf (<5); Urine Urobilinogen Normal (Negative); Urine WBC 3 /HPF (0-3); Urine pH 6.5 (5.0-9.0)
--- NOTE | 2024-07-30 17:42 | DVHPN2 ---
Progress Note - Dictate Date Seen: Jul 30, 2024 Medical Necessity Reason Pt with a Central, PICC or Fol: No Subjective Status post thoracentesis with removal of 1.5 L from the right side vital signs Vital Sign Date Time Temp Pulse Resp B/P (MAP) Pulse Ox O2 Delivery O2 Flow Rate FiO2 07/30/24 09:00 98.4 80 18 120/68 (85) 100 98.4 07/30/24 08:00 Nasal Cannula* 3 32 Total Intake and Output 07/29/24 07/29/24 07/30/24 15:00 23:00 07:00 Intake Total 81 ml 680 ml Balance 81 ml 680 ml medications Current Medications Medications Dose Ordered Sig/Colleen Route Start Time Stop Time Status Last Admin Dose Admin Ondansetron HCl 4 mg Q4HP PRN IV 07/29/24 10:00 Acetaminophen 650 mg Q6HP PRN PO 07/29/24 10:00 Pantoprazole Sodium 50 ml @ 10 mls/hr Q5H IV 07/29/24 10:00 07/30/24 12:03 10 MLS/HR Octreotide Acetate 500 mcg/ Sodium Chloride 100 ml @ 10 mls/hr Q10H IV 07/29/24 10:00 07/30/24 06:21 10 MLS/HR Amiodarone HCl 400 mg DAILY PO 07/30/24 10:00 07/30/24 09:18 400 MG Sevelamer HCl 800 mg TIDWM PO 07/30/24 08:00 07/30/24 12:02 800 MG Piperacillin Sod/ Tazobactam Sod 50 ml @ 12.5 mls/hr Q12HR IV 07/30/24 10:00 07/30/24 12:03 12.5 MLS/HR objective Alert and awake HEENT: Normocephalic, no JVD Lungs: Diminished breath sounds at bases CVS: S1, S2 regular rate rhythm Abdomen: Soft, bowel sounds present STATISTICAL METHODS PROFESSOR: No focal deficits laboratory and microbiology Laboratory Tests 07/30/24 15:05 07/30/24 06:08 Test 07/30/24 06:08 Range/Units Serum Glucose 128 H 74-106 mg/dL Problem List End-stage kidney disease on hemodialysis GI bleed Anemia secondary to above Bilateral pleural effusion CT abdomen with evidence of rectal wall thickening Thrombocytopenia CAD /CHF Hyperlipidemia Assessment/Plan Status post thoracentesis To be weaned off octreotide drip transfusion p.r.n. Hemodialysis today Epogen with dialysis Plan discussed with: Patient CC Plasma Assessment Blood Product Administration S: [id number] YANET VALLADARES MD Jul 30, 2024 17:42
--- NOTE | 2024-07-30 18:00 | DVHPNRES ---
Progress Note Date Seen: Jul 30, 2024 Resident Creating Document: KEARA TOBAR RESIDENT Medical Necessity Reason Pt with a Central, PICC or Fol: No Subjective Review of Systems TipwilburStanford is a 64-year-old male who came in due to blood in his stool. PMH: AFIB, CAD, Other (cardiac stents x 3, pacemaker, cardiac ablation x 3), Pulmonary hypertension, Anemia NOS, Chronic renal failure (on HD-T,,SA) Past Surgical History: Other (cardiac stents x 3, pacemaker, cardiac ablation x 3) Social history: Smoke: No. ALCOHOL: none. Drugs: None. 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 The staff stated that blood in his stool was noted on Saturday. They stopped giving him his Eliquis and did not see anymore blood in his stool for the next few days. Yesterday they noticed blood in his stool again, it continued this morning as well, so they called EMS for him to come to the hospital. Patient was recently admitted here for over 2 weeks. During his stay he was found down and code blue was called. CPR was initiated, he was intubated and in ICU for a few days. He also has a history of anemia, and received 4 units of blood during that stay. Patient was not able to tell me why he takes Eliquis. He does have a history of atrial fibrillation, but has undergone heart ablations, and had a pacemaker placed. On my initial assessment, patient was seen and examined at bedside, he was in [id number] distress due to shortness of breath, he was on nasal cannula at 3-4 L, patient is only complain of generalized weakness, shortness of breath, hematochezia. Objective vital signs Vital Sign Date Time Temp Pulse Resp B/P (MAP) Pulse Ox O2 Delivery O2 Flow Rate FiO2 07/30/24 17:00 97.1 73 18 126/73 (90) 100 97.1 07/30/24 08:00 Nasal Cannula* 3 32 Total Intake and Output 07/29/24 07/29/24 07/30/24 15:00 23:00 07:00 Intake Total 81 ml 680 ml Balance 81 ml 680 ml medications Current Medications Medications Dose Ordered Sig/Colleen Route Start Time Stop Time Status Last Admin Dose Admin Ondansetron HCl 4 mg Q4HP PRN IV 07/29/24 10:00 Acetaminophen 650 mg Q6HP PRN PO 07/29/24 10:00 Pantoprazole Sodium 50 ml @ 10 mls/hr Q5H IV 07/29/24 10:00 07/30/24 12:03 10 MLS/HR Octreotide Acetate 500 mcg/ Sodium Chloride 100 ml @ 10 mls/hr Q10H IV 07/29/24 10:00 07/30/24 06:21 10 MLS/HR Amiodarone HCl 400 mg DAILY PO 07/30/24 10:00 07/30/24 09:18 400 MG Sevelamer HCl 800 mg TIDWM PO 07/30/24 08:00 07/30/24 12:02 800 MG Piperacillin Sod/ Tazobactam Sod 50 ml @ 12.5 mls/hr Q12HR IV 07/30/24 10:00 07/30/24 12:03 12.5 MLS/HR Examination General: Awake, alert, comfortable appearing, in mild distress due to shortness of breath HEENT: Head is normocephalic and atraumatic. Pupils are equal, round, and reactive to light. Extraocular muscles are intact. No nasal discharge. No facial trauma. Intraoral exam shows moist mucous membranes with no tonsillar enlargement or exudate. Neck: Supple with no cervical lymphadenopathy No meningismus. No goiter. Heart: Regular rate without murmur, rub, or gallop. Lungs: Equal breath sounds bilaterally with no wheezing, rales, or rhonchi. There is no chest wall tenderness or instability. Abdomen: No external sign of injury. Bowel sounds are present. Abdomen is soft, nontender. No rebound, no guarding, no rigidity. There are no palpable masses. There is no flank pain on exam. Extremities: Strong peripheral pulses. There is no clubbing, no cyanosis, and no edema. Skin: Right-sided dialysis catheter Neurologic: Cranial nerves II-XII intact without motor, sensory, or cerebellar deficit, no asterixis. laboratory and microbiology Laboratory Tests 07/30/24 15:05 07/30/24 06:08 Test 07/30/24 06:08 Range/Units Serum Glucose 128 H 74-106 mg/dL Microbiology Date/Time Source Procedure Growth Status 07/29/24 07:34 Blood Blood Culture - Preliminary NO GROWTH AFTER 24 HOURS OF INCUBATION. Resulted Labs and/or images reviewed: Labs reviewed by me, Image(s) reviewed by me Problem List/Assessment/Plan Problem List/Assessment/Plan GI bleeding Possible proctitis, rule out malignancy Thrombocytopenia, severe Secondary coagulopathy Acute on chronic hypoxic respiratory failure Severe anemia status post blood transfusion Atrial fibrillation Cardiac ablation x3 Pleural effusion status post thoracentesis Pneumonia Gram-positive versus Gram-negative ESRD on HD CAD x3 stents Pacemaker Chronic systolic CHF Plan: Chest x-ray revealed significant pleural effusion, thoracentesis was performed today Taper off octreotide drip Continue Protonix drip Clear liquid diet Zosyn IV Hold blood thinner Requested physical therapy Hemodialysis today Continue amiodarone 400 mg p.o. q.d. 1 unit of RBC pack was transfused GI doctor following, pending colonoscopy until patient gets stabilized Nephrology following Goals of care were discussed for over 30 minutes. Full code Case was discussed with Dr. Parker Plan discussed with: Patient, Other (RN) My Orders My Orders Orders - KEARA TOBAR RESIDENT Procedure Category Date Status Time Chest Ultrasound US 07/30/24 Resulted 08:17 Chest Portable XY 07/30/24 Resulted 08:17 * Radiologist Consult CONS 07/30/24 Transmitted 09:39 Thoracentesis US 07/30/24 Resulted 09:39 Piperacillin-Tazob PHA 07/30/24 In Process 2.25gm (Zosyn 2.25gm) 10:00 Respiratory Culture DAYAN 07/30/24 Logged W/ Gs 09:40 Mrsa Screen DAYAN 07/30/24 Logged 09:40 * Wound Consult CONS 07/30/24 Transmitted Communication Order ORDERS 07/30/24 Transmitted 17:53 CC Plasma Assessment Blood Product Administration S: [id number] Date of Service: Jul 30, 2024 Billing Provider: HEATHER PARKER MD Common Visit Codes: [id number] INP/OBS CARE(HIGH) Secondary Visit Codes: [id number] CARE PLAN 30 MINUTES KEARA TOBAR RESIDENT Jul 30, 2024 18:00 HEATHER PARKER MD Jul 31, 2024 12:45
[2024-07-30] MEDS: EPOETIN ALFA-EPBX 10,000 UNIT/1ML VIAL SC ONE (21:28)
[2024-07-31 01:00] VITALS: BP 160/72; PULSE 77; RESP 18; TEMP 97.2; O2SAT 100
--- NOTE | 2024-07-31 06:40 | DVHPNRES ---
Progress Note Date Seen: Jul 31, 2024 Resident Creating Document: KEARA TOBAR RESIDENT Medical Necessity Reason Pt with a Central, PICC or Fol: No Subjective Review of Systems Patient was seen and examined at bedside, he was in mild distress due to shortness of breath, he was on nasal cannula at 3 L, patient complaining of generalized weakness, shortness of breath, hematochezia. Objective vital signs Vital Sign Date Time Temp Pulse Resp B/P (MAP) Pulse Ox O2 Delivery O2 Flow Rate FiO2 07/31/24 01:00 97.2 77 18 160/72 (101) 100 97.2 07/30/24 20:00 Nasal Cannula* 3 32 Total Intake and Output 07/30/24 07/30/24 07/31/24 15:00 23:00 07:00 Intake Total 50 ml 100 ml 100 ml Output Total 125 ml Balance 50 ml 100 ml -25 ml medications Current Medications Medications Dose Ordered Sig/Colleen Route Start Time Stop Time Status Last Admin Dose Admin Ondansetron HCl 4 mg Q4HP PRN IV 07/29/24 10:00 Acetaminophen 650 mg Q6HP PRN PO 07/29/24 10:00 Pantoprazole Sodium 50 ml @ 10 mls/hr Q5H IV 07/29/24 10:00 07/31/24 05:16 10 MLS/HR Octreotide Acetate 500 mcg/ Sodium Chloride 100 ml @ 10 mls/hr Q10H IV 07/29/24 10:00 07/30/24 18:21 10 MLS/HR Amiodarone HCl 400 mg DAILY PO 07/30/24 10:00 07/30/24 09:18 400 MG Sevelamer HCl 800 mg TIDWM PO 07/30/24 08:00 07/30/24 18:21 800 MG Piperacillin Sod/ Tazobactam Sod 50 ml @ 12.5 mls/hr Q12HR IV 07/30/24 10:00 07/31/24 00:22 12.5 MLS/HR Examination General: Awake, alert, comfortable appearing, in mild distress due to shortness of breath HEENT: Head is normocephalic and atraumatic. Pupils are equal, round, and reactive to light. Extraocular muscles are intact. No nasal discharge. No facial trauma. Intraoral exam shows moist mucous membranes with no tonsillar enlargement or exudate. Neck: Supple with no cervical lymphadenopathy No meningismus. No goiter. Heart: Regular rate without murmur, rub, or gallop. Lungs: Equal breath sounds bilaterally with no wheezing, rales, or rhonchi. There is no chest wall tenderness or instability. Abdomen: No external sign of injury. Bowel sounds are present. Abdomen is soft, nontender. No rebound, no guarding, no rigidity. There are no palpable masses. There is no flank pain on exam. Extremities: Strong peripheral pulses. There is no clubbing, no cyanosis, and no edema. Skin: Right-sided dialysis catheter Neurologic: Cranial nerves II-XII intact without motor, sensory, or cerebellar deficit, no asterixis. laboratory and microbiology Laboratory Tests 07/30/24 15:05 07/30/24 06:08 Test 07/30/24 06:08 Range/Units Serum Glucose 128 H 74-106 mg/dL Microbiology Date/Time Source Procedure Growth Status 07/29/24 07:34 Blood Blood Culture - Preliminary NO GROWTH AFTER 24 HOURS OF INCUBATION. Resulted Labs and/or images reviewed: Labs reviewed by me, Image(s) reviewed by me Problem List/Assessment/Plan Problem List/Assessment/Plan GI bleeding Possible proctitis, rule out malignancy Thrombocytopenia, severe Secondary coagulopathy Acute on chronic hypoxic respiratory failure Severe anemia status post blood transfusion Atrial fibrillation Cardiac ablation x3 Pleural effusion status post thoracentesis Pneumonia Gram-positive versus Gram-negative ESRD on HD CAD x3 stents Pacemaker Chronic systolic CHF Plan: Chest x-ray revealed significant pleural effusion, thoracentesis was performed yesterday, 1.5 L were taken out Taper off octreotide drip Discontinue Protonix drip Protonix 40 mg IV b.i.d. Clear liquid diet Zosyn IV Hold blood thinner Requested physical therapy Hemodialysis was yesterday Continue amiodarone 400 mg p.o. q.d. 1 unit of RBC pack was transfused GI doctor following, pending colonoscopy until patient gets stabilized Nephrology following Goals of care were discussed for over 30 minutes. Full code Case was discussed with Dr. Parker Plan discussed with: Patient, Other (RN) My Orders My Orders Orders - KEARA TOBAR RESIDENT Procedure Category Date Status Time Chest Ultrasound US 07/30/24 Resulted 08:17 Chest Portable XY 07/30/24 Resulted 08:17 * Radiologist Consult CONS 07/30/24 Transmitted 09:39 Thoracentesis US 07/30/24 Resulted 09:39 Piperacillin-Tazob PHA 07/30/24 In Process 2.25gm (Zosyn 2.25gm) 10:00 Respiratory Culture DAYAN 07/30/24 Logged W/ Gs 09:40 Mrsa Screen DAYAN 07/30/24 Logged 09:40 * Wound Consult CONS 07/30/24 Transmitted Communication Order ORDERS 07/30/24 Transmitted 17:53 Complete Blood Count LAB 07/31/24 Logged 04:00 Basic Metabolic Panel LAB 07/31/24 Logged 04:00 Magnesium LAB 07/31/24 Logged 04:00 CC Plasma Assessment Blood Product Administration S: [id number] Date of Service: Jul 31, 2024 Billing Provider: HEATHER PARKER MD Common Visit Codes: [id number] INP/OBS CARE(HIGH) KEARA TOBAR RESIDENT Jul 31, 2024 06:40 HEATHER PARKER MD Jul 31, 2024 18:53
[2024-07-31 08:00] VITALS: PULSE 76
[2024-07-31] MEDS ORDERED: DAPAGLIFLOZIN 5 MG TAB PO SCH (08:08)
[2024-07-31] MEDS: SACUBITRIL-VALSARTAN 24mg/26mg TAB PO SCH (08:38)
[2024-07-31] MEDS: CARVEDILOL 3.125 MG TAB PO SCH (08:39)
[2024-07-31] MEDS: FUROSEMIDE 20 MG TAB PO SCH (08:40)
[2024-07-31 09:00] VITALS: BP 151/66; PULSE 76; RESP 17; TEMP 97.8; O2SAT 98
[2024-07-31] MEDS: PANTOPRAZOLE 40 MG/10 ML VIAL INJ IV SCH (10:00)
[2024-07-31] MEDS: DAPAGLIFLOZIN 10 MG PO SCH (10:52)
--- NOTE | 2024-07-31 13:27 | DVHPN2 ---
Progress Note Date Seen: Jul 31, 2024 Resident Creating Document: JUAN REECE RESIDENT Medical Necessity Reason Pt with a Central, PICC or Fol: No Subjective Review of Systems 64-year-old male with past medical history of CAD, atrial fibrillation, anemia, NH, CHF, on home oxygen, pulmonary hypertension, and ESRD on HD, who came in due to hematochezia. Patient is residing at [facility]. The staff stated that blood in his stool was noted on Saturday. They stopped giving him his Eliquis and did not see anymore blood in his stool for the next few days. Yesterday they noticed blood in his stool again, it continued this morning as well, so they called EMS for him to come to the hospital. He also has a history of anemia, and received 6 units of PRBS during last hospitalization 2 weeks back. At the time of my assessment, patient is currently s/p thoracentesis. Reports having nausea and dry heaving, but no vomiting. Last bowel movement was yesterday and soft and he noticed some blood in stool. Per patient his last colonoscopy was 2 years ago at [facility] and was unremarkable. Denies ever having had EGD in the past. Objective vital signs Vital Sign Date Time Temp Pulse Resp B/P (MAP) Pulse Ox O2 Delivery O2 Flow Rate FiO2 07/31/24 09:00 97.8 76 17 151/66 (94) 98 97.8 07/31/24 07:56 Nasal Cannula* 3 32 Total Intake and Output 07/30/24 07/30/24 07/31/24 15:00 23:00 07:00 Intake Total 50 ml 100 ml 100 ml Output Total 125 ml Balance 50 ml 100 ml -25 ml medications Current Medications Medications Dose Ordered Sig/Colleen Route Start Time Stop Time Status Last Admin Dose Admin Ondansetron HCl 4 mg Q4HP PRN IV 07/29/24 10:00 Acetaminophen 650 mg Q6HP PRN PO 07/29/24 10:00 Octreotide Acetate 500 mcg/ Sodium Chloride 100 ml @ 10 mls/hr Q10H IV 07/29/24 10:00 07/30/24 18:21 10 MLS/HR Amiodarone HCl 400 mg DAILY PO 07/30/24 10:00 07/31/24 08:39 400 MG Sevelamer HCl 800 mg TIDWM PO 07/30/24 08:00 07/31/24 08:39 800 MG Piperacillin Sod/ Tazobactam Sod 50 ml @ 12.5 mls/hr Q12HR IV 07/30/24 10:00 07/31/24 08:40 12.5 MLS/HR Furosemide 40 mg DAILY PO 07/31/24 10:00 07/31/24 08:40 40 MG Sacubitril/ Valsartan 1 tab BID PO 07/31/24 10:00 07/31/24 08:38 1 TAB Carvedilol 6.25 mg BID PO 07/31/24 10:00 07/31/24 08:39 6.25 MG Pantoprazole Sodium 40 mg BID IV 07/31/24 10:00 Patient Own Medication 10 QAM PO 07/31/24 10:52 Examination General Appearance: moderate distress, bedbound at baseline HEENT: Atraumatic, PERRLA Respiratory: Clear to auscultation, Normal air movement Cardiovascular: Normal S1, Normal S2, Other (paced) Abdominal: Normal bowel sounds, Soft, Other (Lower quadrant tenderness) Extremities: No clubbing, No cyanosis, No edema, Normal pulses, No tenderness/swelling Skin: No rashes, No significant lesion (multiple bruises on bilateral upper extremities) Neuro: Alert, Oriented X3, laboratory and microbiology Laboratory Tests 07/30/24 15:05 07/30/24 06:08 Test 07/30/24 06:08 Range/Units Serum Glucose 128 H 74-106 mg/dL Microbiology Date/Time Source Procedure Growth Status 07/29/24 07:34 Blood Blood Culture - Preliminary NO GROWTH AFTER 48 HOURS OF INCUBATION. Resulted Labs and/or images reviewed: Labs reviewed by me, Image(s) reviewed by me Problem List/Assessment/Plan Problem List/Assessment/Plan GI bleed, Possible proctitis Anemia Thrombocytopenia, CHF, ESRD on HD, Hyperlipidemia, Atrial fibrillation CAD status post 3 stents Moderate right-sided pleural effusion Plan/Recommendation - possible colonoscopy later in the course of hospitalization or outpatient -CT abdomen/pelvis WO contrast: Mild circumferential rectal wall thickening that could be related to incomplete distention or reflect mural inflammation or infiltrative mural lesion. - Clear liquid diet - we will monitor H and H - discontinue octreotide drip - after current Protonix drip ends, transition to IV Protonix 40 b.i.d. - Patient is high risk for any GI procedure for now - Possible colonoscopy when patient is medically stable. - HD as schedule Thank you so much for the opportunity to consult on your patient. GI team will follow the patient. In case of any questions or concerns please feel free to reach out. Plan discussed with Dr. Emma Contreras Plan discussed with: Patient, Other (RN) CC Plasma Assessment Blood Product Administration S: [id number] JUAN REECE RESIDENT Jul 31, 2024 13:27
[2024-07-31 13:50] LABS: Potassium 4.1 mmol/L (3.5-5.1)
[2024-07-31 13:51] LABS: Anion Gap 8 (5-15); Basophils # (auto) 0 10 ^3/uL (0-0.2); Basophils % (auto) 0.6 % (0.0-2.0); Carbon Dioxide 30 mmol/L (20-31); Eosinophils # (auto) 0.2 10 ^3/uL (0-0.8); Hematocrit 23.9 % (41.0-53.0); Hemoglobin 7.8 g/dL (13.5-17.5); Lymphocytes # (auto) 0.2 10 ^3/uL (0.4-5.4); Lymphocytes % (auto) 10.9 % (10.0-50.0); Mean Corpuscular Hemoglobin 32.2 pg (28.0-32.0); Mean Corpuscular Hgb Conc. 32.7 g/dL (32.0-36.0); Mean Corpuscular Volume 98.4 fL (80.0-100.0); Monocytes # (auto) 0.2 10 ^3/uL (0-1.3); Monocytes % (auto) 8.8 % (0.0-12.0); Neutrophils # (auto) 1.6 10 ^3/uL (1.6-8.6); Neutrophils % (auto) 72.7 % (37.0-80.0); Nucleated Red Blood Cells % 0.5 %; Platelet Count (auto) 45 10^3/uL (140-450); Red Blood Cells 2.43 10^6/uL (4.5-5.90); Red Cell Distribution Width 21.8 % (11.8-14.3); White Blood Cell 2.2 10^3/uL (4.4-10.8)
[2024-07-31 13:54] LABS: Calcium 8.6 mg/dL (8.7-10.4); Chloride 98 mmol/L (98-107); Sodium 136 mmol/L (136-145)
[2024-07-31 13:57] LABS: BUN/Creatinine Ratio 6.9 (10.0-20.0); Magnesium 1.9 mg/dL (1.6-2.6)
[2024-07-31 13:59] LABS: Blood Urea Nitrogen 26 mg/dL (9-23); Glucose 117 mg/dL (74-106)
[2024-07-31 17:00] VITALS: BP 132/71; PULSE 60; RESP 18; TEMP 97.3; O2SAT 100
--- NOTE | 2024-07-31 18:36 | DVHPN2 ---
Progress Note - Dictate Date Seen: Jul 31, 2024 Medical Necessity Reason Pt with a Central, PICC or Fol: No Subjective Status post thoracentesis with removal of 1.5 L from the right side awaiting colonoscopy vital signs Vital Sign Date Time Temp Pulse Resp B/P (MAP) Pulse Ox O2 Delivery O2 Flow Rate FiO2 07/31/24 17:00 97.3 60 18 132/71 (91) 100 97.3 07/31/24 07:56 Nasal Cannula* 3 32 Total Intake and Output 07/30/24 07/30/24 07/31/24 15:00 23:00 07:00 Intake Total 50 ml 100 ml 100 ml Output Total 125 ml Balance 50 ml 100 ml -25 ml medications Current Medications Medications Dose Ordered Sig/Colleen Route Start Time Stop Time Status Last Admin Dose Admin Ondansetron HCl 4 mg Q4HP PRN IV 07/29/24 10:00 Acetaminophen 650 mg Q6HP PRN PO 07/29/24 10:00 Amiodarone HCl 400 mg DAILY PO 07/30/24 10:00 07/31/24 08:39 400 MG Sevelamer HCl 800 mg TIDWM PO 07/30/24 08:00 07/31/24 08:39 800 MG Piperacillin Sod/ Tazobactam Sod 50 ml @ 12.5 mls/hr Q12HR IV 07/30/24 10:00 07/31/24 08:40 12.5 MLS/HR Furosemide 40 mg DAILY PO 07/31/24 10:00 07/31/24 08:40 40 MG Sacubitril/ Valsartan 1 tab BID PO 07/31/24 10:00 07/31/24 08:38 1 TAB Carvedilol 6.25 mg BID PO 07/31/24 10:00 07/31/24 08:39 6.25 MG Pantoprazole Sodium 40 mg BID IV 07/31/24 10:00 Patient Own Medication 10 QAM PO 07/31/24 10:52 objective Alert and awake HEENT: Normocephalic, no JVD Lungs: Diminished breath sounds at bases CVS: S1, S2 regular rate rhythm Abdomen: Soft, bowel sounds present 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 Advance to GI Soft diet as tolerated; may consider renal modifier as needed but pt would benefit from least-restrictive diet possible given malnutrition 2. Will add Ensure Clear supplements TID appropriate for current diet order (provides 240 kcal, 8 gm pro per carton) 3. Encourage good oral intake >75% of meals 4. Monitor H&H closely, possible GI bleed Expected Outcomes/Goals: Improved nutritional status, gradual weight gain. Plan discussed with: Patient CC Plasma Assessment Blood Product Administration S: [id number] YANET VALLADARES MD Jul 31, 2024 18:36
[2024-07-31 20:00] VITALS: PULSE 59
[2024-07-31 21:00] VITALS: BP 101/54; PULSE 61; RESP 18; TEMP 97.2; O2SAT 100
[2024-08-01] VITALS (11 sets, daily range): BP systolic 95–142; BP diastolic 51–74; PULSE 60–72; RESP 16–19; TEMP 97.4–97.9; O2SAT 98–100
--- NOTE | 2024-08-01 12:09 | DVHPN2 ---
Progress Note - Dictate Date Seen: Aug 01, 2024 Medical Necessity Reason Pt with a Central, PICC or Fol: No Subjective Patient underwent dialysis today. Became hypotensive. Hence fluid had to be returned and treatment had to be terminated early. vital signs Vital Sign Date Time Temp Pulse Resp B/P (MAP) Pulse Ox O2 Delivery O2 Flow Rate FiO2 08/01/24 08:45 97.9 72 17 142/52 (82) 100 97.9 08/01/24 08:00 Nasal Cannula* 3 32 Total Intake and Output 07/31/24 07/31/24 08/01/24 15:00 23:00 07:00 Intake Total 200 ml 425 ml Output Total 100 ml Balance 200 ml 325 ml medications Current Medications Medications Dose Ordered Sig/Colleen Route Start Time Stop Time Status Last Admin Dose Admin Ondansetron HCl 4 mg Q4HP PRN IV 07/29/24 10:00 Acetaminophen 650 mg Q6HP PRN PO 07/29/24 10:00 Amiodarone HCl 400 mg DAILY PO 07/30/24 10:00 08/01/24 10:23 400 MG Sevelamer HCl 800 mg TIDWM PO 07/30/24 08:00 08/01/24 10:24 800 MG Piperacillin Sod/ Tazobactam Sod 50 ml @ 12.5 mls/hr Q12HR IV 07/30/24 10:00 08/01/24 10:22 12.5 MLS/HR Furosemide 40 mg DAILY PO 07/31/24 10:00 07/31/24 08:40 40 MG Sacubitril/ Valsartan 1 tab BID PO 07/31/24 10:00 08/01/24 10:23 1 TAB Carvedilol 6.25 mg BID PO 07/31/24 10:00 07/31/24 08:39 6.25 MG Pantoprazole Sodium 40 mg BID IV 07/31/24 10:00 08/01/24 10:22 40 MG Patient Own Medication 10 QAM PO 07/31/24 10:52 objective Alert and awake HEENT: Normocephalic, no JVD Lungs: Diminished breath sounds at bases CVS: S1, S2 regular rate rhythm Abdomen: Soft, bowel sounds present 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 b.i.d. Colonoscopy as per GI Dietary Evaluation Review Comments: 1. Advance to GI Soft diet as tolerated; may consider renal modifier as needed but pt would benefit from least-restrictive diet possible given malnutrition 2. Will add Ensure Clear supplements TID appropriate for current diet order (provides 240 kcal, 8 gm pro per carton) 3. Encourage good oral intake >75% of meals 4. Monitor H&H closely, possible GI bleed Expected Outcomes/Goals: Improved nutritional status, gradual weight gain. Plan discussed with: Patient CC Plasma Assessment Blood Product Administration S: [id number] YANET VALLADARES MD Aug 01, 2024 12:09
[2024-08-01] MEDS: SODIUM CHL 0.9% 1000 ML BAG XX ONE ×2 (21:00)
[2024-08-01] MEDS: CARVEDILOL 3.125 MG TAB PO SCH (21:51)
[2024-08-01] MEDS: EPOETIN ALFA-EPBX 4,000 UNIT/ML VIAL SC ONE (21:51)
[2024-08-02] VITALS (9 sets, daily range): BP systolic 90–124; BP diastolic 51–69; PULSE 60–70; RESP 15–17; TEMP 97.5–98; O2SAT 100
--- NOTE | 2024-08-02 13:37 | DVHPN2 ---
Reviewed: Care Plan, H&P, Labs, Medications, Previous Orders, Radiology Changes from previous H/P or p: No Changes General: Per HPI Eyes: No Pain, No Vision change, No Conjunctivae inflammation, No Eyelid inflammation, No Other, No Redness ENT: No Ear pain, No Ear discharge, No Nose pain, No Nose discharge, No Nose congestion, No Mouth pain, No Mouth swelling, No Throat pain, No Throat swelling, No Other Cardiovascular: No Chest Pain, No Palpitations, No Orthopnea, No Paroxysmal Noc. Dyspnea, No Edema, No Lt Headedness, No Other Respiratory: No Cough, No Dry, No Shortness of breath, No SOB with excertion, No Wheezing, No Hemoptysis, No Pleuritic Pain, No Sputum, No Other Gastrointestinal: No Nausea, No Vomiting; Abdominal Pain, Diarrhea; No Constipation; Melena; No Hematochezia, No Other Genitourinary: No Dysuria, No Frequency, No Incontinence, No Hematuria, No Retention, No Other Musculoskeletal: No other, No neck pain, No shoulder pain, No arm pain, No back pain, No hand pain, No leg pain, No foot pain Skin: No Rash, No Lesions, No Jaundice, No Bruising, No Other Objective Vitals Vital Signs Date Time Temp Pulse Resp B/P (MAP) Pulse Ox O2 Delivery O2 Flow Rate FiO2 08/02/24 12:56 97.5 70 17 124/69 (87) 100 97.5 08/02/24 08:20 Nasal Cannula* 3 32 Intake/Output Intake and Output 08/02/24 07:00 Intake Total 1950 ml Output Total 250 ml Balance 1700 ml Intake Oral 1900 ml IV Total 50 ml Output Urine Total 250 ml # Voids 4 # Bowel Movements 1 General Appearance: Alert, Oriented X3, Cooperative HEENT: Atraumatic Lungs: Clear to auscultation Chest/Breasts: Discharge Cardiovascular: Regular rate, Normal S1, Normal S2 Abdomen: Normal bowel sounds, Soft Medications Current Medications Medications Dose Ordered Sig/Colleen Route Start Time Stop Time Status Last Admin Dose Admin Ondansetron HCl 4 mg Q4HP PRN IV 07/29/24 10:00 Acetaminophen 650 mg Q6HP PRN PO 07/29/24 10:00 Amiodarone HCl 400 mg DAILY PO 07/30/24 10:00 08/02/24 10:17 400 MG Sevelamer HCl 800 mg TIDWM PO 07/30/24 08:00 08/02/24 08:30 800 MG Piperacillin Sod/ Tazobactam Sod 50 ml @ 12.5 mls/hr Q12HR IV 07/30/24 10:00 08/02/24 10:16 12.5 MLS/HR Furosemide 40 mg DAILY PO 07/31/24 10:00 08/02/24 10:18 40 MG Sacubitril/ Valsartan 1 tab BID PO 07/31/24 10:00 08/02/24 10:18 1 TAB Pantoprazole Sodium 40 mg BID IV 07/31/24 10:00 08/02/24 10:16 40 MG Patient Own Medication 10 QAM PO 07/31/24 10:52 Carvedilol 3.125 mg BID PO 08/01/24 22:00 Laboratory Results Laboratory Tests 07/31/24 13:20 Urinalysis Test 07/30/24 16:05 Urine Color Yellow (Yellow) Urine Clarity Clear (Clear) Urine pH 6.5 (5.0-9.0) Urine Specific [place] 1.009 (1.001-1.035) Urine Protein 1+ (Negative) H Urine Ketones Negative (Negative) Urine Blood 1+ /uL (Negative) H Urine Nitrite Negative (Negative) Urine Bilirubin Negative (Negative) Urine Urobilinogen Normal mg/dL (Negative) Urine Leukocyte Esterase Negative /uL (Negative) Urine RBC 1 /hpf (0 - 3) Urine Microscopic WBC 3 /HPF (0-3) Urine Squamous Epithelial Cells Few /hpf (<5) Urine Bacteria None seen /hpf (None Seen) Urine Glucose 1+ mg/dL (Normal) H Microbiology Microbiology Date/Time Source Procedure Growth Status 08/01/24 04:25 Sputum Gram Stain Pending Resulted 08/01/24 04:25 Sputum Respiratory Culture - Preliminary Resulted 07/31/24 18:49 Nose MRSA Screen - Final Complete 07/29/24 07:34 Blood Blood Culture - Preliminary NO GROWTH AFTER 72 HOURS OF INCUBATION. Resulted Labs and/or images reviewed: Labs reviewed by me, Image(s) reviewed by me Assessment/Plan Assessment/Plan GI bleeding Possible proctitis, rule out malignancy Thrombocytopenia, severe Secondary coagulopathy Acute on chronic hypoxic respiratory failure Severe anemia status post blood transfusion Atrial fibrillation Cardiac ablation x3 Pleural effusion status post thoracentesis Pneumonia Gram-positive versus Gram-negative ESRD on HD CAD x3 stents Pacemaker Chronic systolic CHF Plan: Chest x-ray revealed significant pleural effusion, thoracentesis was performed yesterday, 1.5 L were taken out Taper off octreotide drip Discontinue Protonix drip Protonix 40 mg IV b.i.d. Clear liquid diet Zosyn IV Hold blood thinner Requested physical therapy Hemodialysis was yesterday Continue amiodarone 400 mg p.o. q.d. 1 unit of RBC pack was transfused GI doctor following, pending colonoscopy until patient gets stabilized Nephrology following 08/01/2024: pt to have colonoscopy on Saturday. discussed with pt at bedside. pt was eating snack during round 08/02/2024: stable, awaiting for colonoscopy on Saturday Plan discussed with: Patient Date of Service: Aug 02, 2024 Billing Provider: JOHANN URBINA DO Common Visit Codes: [id number] INP/OBS CARE(HIGH) JOHANN URBINA DO Aug 02, 2024 13:37
--- NOTE | 2024-08-02 17:14 | DVHPN2 ---
Progress Note - Dictate Date Seen: Aug 02, 2024 Medical Necessity Reason Pt with a Central, PICC or Fol: No Subjective no acute issues overnight vital signs Vital Sign Date Time Temp Pulse Resp B/P (MAP) Pulse Ox O2 Delivery O2 Flow Rate FiO2 08/02/24 16:32 97.5 66 16 111/61 (78) 100 97.5 08/02/24 08:20 Nasal Cannula* 3 32 Total Intake and Output 08/01/24 08/01/24 08/02/24 15:00 23:00 07:00 Intake Total 50 ml 1000 ml 900 ml Output Total 250 ml Balance 50 ml 1000 ml 650 ml medications Current Medications Medications Dose Ordered Sig/Colleen Route Start Time Stop Time Status Last Admin Dose Admin Ondansetron HCl 4 mg Q4HP PRN IV 07/29/24 10:00 Acetaminophen 650 mg Q6HP PRN PO 07/29/24 10:00 Amiodarone HCl 400 mg DAILY PO 07/30/24 10:00 08/02/24 10:17 400 MG Sevelamer HCl 800 mg TIDWM PO 07/30/24 08:00 08/02/24 12:00 800 MG Piperacillin Sod/ Tazobactam Sod 50 ml @ 12.5 mls/hr Q12HR IV 07/30/24 10:00 08/02/24 10:16 12.5 MLS/HR Furosemide 40 mg DAILY PO 07/31/24 10:00 08/02/24 10:18 40 MG Sacubitril/ Valsartan 1 tab BID PO 07/31/24 10:00 08/02/24 10:18 1 TAB Pantoprazole Sodium 40 mg BID IV 07/31/24 10:00 08/02/24 10:16 40 MG Patient Own Medication 10 QAM PO 07/31/24 10:52 Carvedilol 3.125 mg BID PO 08/01/24 22:00 objective Alert and awake HEENT: Normocephalic, no JVD Lungs: Diminished breath sounds at bases CVS: S1, S2 regular rate rhythm Abdomen: Soft, bowel sounds present 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 b.i.d. Colonoscopy as per GI Dietary Evaluation Review Comments: 1. Advance to GI Soft diet as tolerated; may consider renal modifier as needed but pt would benefit from least-restrictive diet possible given malnutrition 2. Will add Ensure Clear supplements TID appropriate for current diet order (provides 240 kcal, 8 gm pro per carton) 3. Encourage good oral intake >75% of meals 4. Monitor H&H closely, possible GI bleed Expected Outcomes/Goals: Improved nutritional status, gradual weight gain. Plan discussed with: Other CC Plasma Assessment Blood Product Administration S: [id number] YANET VALLADARES MD Aug 02, 2024 17:14
[2024-08-03] VITALS (10 sets, daily range): BP systolic 86–148; BP diastolic 53–86; PULSE 61–70; RESP 16–17; TEMP 97.2–98.6; O2SAT 97–100
[2024-08-03] MEDS: SODIUM CHLORIDE 0.9% 500 ML IV ONE (04:23)
[2024-08-03 11:38] LABS: Basophils # (auto) 0 10 ^3/uL (0-0.2); Basophils % (auto) 1.4 % (0.0-2.0); Eosinophils # (auto) 0.3 10 ^3/uL (0-0.8); Eosinophils % (auto) 10.2 % (0.0-7.0); Hematocrit 27.2 % (41.0-53.0); Lymphocytes # (auto) 0.5 10 ^3/uL (0.4-5.4); Lymphocytes % (auto) 16.6 % (10.0-50.0); Mean Corpuscular Hemoglobin 32.1 pg (28.0-32.0); Mean Corpuscular Hgb Conc. 33.1 g/dL (32.0-36.0); Mean Corpuscular Volume 97.1 fL (80.0-100.0); Monocytes # (auto) 0.4 10 ^3/uL (0-1.3); Monocytes % (auto) 13.3 % (0.0-12.0); Neutrophils # (auto) 1.7 10 ^3/uL (1.6-8.6); Neutrophils % (auto) 58.5 % (37.0-80.0); Platelet Count (auto) 72 10^3/uL (140-450); Red Blood Cells 2.81 10^6/uL (4.5-5.90); Red Cell Distribution Width 20.3 % (11.8-14.3)
--- NOTE | 2024-08-03 12:28 | DVHPNRES ---
Progress Note Date Seen: Aug 03, 2024 Resident Creating Document: KEARA TOBAR RESIDENT Medical Necessity Reason Pt with a Central, PICC or Fol: No Subjective Review of Systems Patient was seen and examined at bedside, he was on nasal cannula at 3 L, patient complaining of generalized weakness Objective vital signs Vital Sign Date Time Temp Pulse Resp B/P (MAP) Pulse Ox O2 Delivery O2 Flow Rate FiO2 08/03/24 09:53 96/53 08/03/24 08:20 64 16 99 Nasal Cannula* 3 32 08/03/24 05:00 97.7 97.7 Total Intake and Output 08/02/24 08/02/24 08/03/24 15:00 23:00 07:00 Intake Total 100 ml 800 ml 904 ml Output Total 175 ml Balance 100 ml 800 ml 729 ml medications Current Medications Medications Dose Ordered Sig/Colleen Route Start Time Stop Time Status Last Admin Dose Admin Ondansetron HCl 4 mg Q4HP PRN IV 07/29/24 10:00 Acetaminophen 650 mg Q6HP PRN PO 07/29/24 10:00 Amiodarone HCl 400 mg DAILY PO 07/30/24 10:00 08/03/24 09:52 400 MG Sevelamer HCl 800 mg TIDWM PO 07/30/24 08:00 08/03/24 09:20 800 MG Piperacillin Sod/ Tazobactam Sod 50 ml @ 12.5 mls/hr Q12HR IV 07/30/24 10:00 08/03/24 09:53 12.5 MLS/HR Furosemide 40 mg DAILY PO 07/31/24 10:00 08/02/24 10:18 40 MG Sacubitril/ Valsartan 1 tab BID PO 07/31/24 10:00 Hold 08/02/24 10:18 1 TAB Pantoprazole Sodium 40 mg BID IV 07/31/24 10:00 08/03/24 09:51 40 MG Patient Own Medication 10 QAM PO 07/31/24 10:52 Carvedilol 3.125 mg BID PO 08/01/24 22:00 Hold Examination General: Awake, alert, comfortable appearing, in mild distress due to shortness of breath HEENT: Head is normocephalic and atraumatic. Pupils are equal, round, and reactive to light. Extraocular muscles are intact. No nasal discharge. No facial trauma. Intraoral exam shows moist mucous membranes with no tonsillar enlargement or exudate. Neck: Supple with no cervical lymphadenopathy No meningismus. No goiter. Heart: Regular rate without murmur, rub, or gallop. Lungs: Equal breath sounds bilaterally with no wheezing, rales, or rhonchi. There is no chest wall tenderness or instability. Abdomen: No external sign of injury. Bowel sounds are present. Abdomen is soft, nontender. No rebound, no guarding, no rigidity. There are no palpable masses. There is no flank pain on exam. Extremities: Strong peripheral pulses. There is no clubbing, no cyanosis, and no edema. Skin: Right-sided dialysis catheter Neurologic: Cranial nerves II-XII intact without motor, sensory, or cerebellar deficit, no asterixis. laboratory and microbiology Laboratory Tests 08/03/24 09:38 Test 08/03/24 07:01 Range/Units Serum Glucose Pending Microbiology Date/Time Source Procedure Growth Status 08/01/24 04:25 Sputum Gram Stain Pending Resulted 08/01/24 04:25 Sputum Respiratory Culture - Preliminary Resulted 07/31/24 18:49 Nose MRSA Screen - Final Complete 07/29/24 07:34 Blood Blood Culture - Final NO GROWTH AFTER 5 DAYS OF INCUBATION. Complete Labs and/or images reviewed: Labs reviewed by me, Image(s) reviewed by me Problem List/Assessment/Plan Problem List/Assessment/Plan GI bleeding, possible angiodysplasias, diverticular disease Possible proctitis, rule out malignancy Thrombocytopenia, severe Secondary coagulopathy Acute on chronic hypoxic respiratory failure Severe anemia status post blood transfusion Atrial fibrillation Cardiac ablation x3 Pleural effusion status post thoracentesis Pneumonia Gram-positive versus Gram-negative ESRD on HD CAD x3 stents Pacemaker Chronic systolic CHF Plan: Protonix 40 mg IV b.i.d. Clear liquid diet Zosyn IV Hold blood thinner Requested physical therapy Hemodialysis per nephrology Continue amiodarone 400 mg p.o. q.d. 1 unit of RBC pack was transfused GI doctor following, pending colonoscopy, possible tomorrow Nephrology following Goals of care were discussed for over 30 minutes. Full code Case was discussed with Dr. Parker Plan discussed with: Patient, Other (RN) My Orders My Orders Orders - KEARA TOBAR RESIDENT Procedure Category Date Status Time Basic Metabolic Panel LAB 08/03/24 Logged 07:01 Magnesium LAB 08/03/24 Logged 07:01 Dietary Evaluation Review Comments: 1. Advance to GI Soft diet as tolerated; may consider renal modifier as needed but pt would benefit from least-restrictive diet possible given malnutrition 2. Will add Ensure Clear supplements TID appropriate for current diet order (provides 240 kcal, 8 gm pro per carton) 3. Encourage good oral intake >75% of meals 4. Monitor H&H closely, possible GI bleed Expected Outcomes/Goals: Improved nutritional status, gradual weight gain. CC Plasma Assessment Blood Product Administration S: [id number] Date of Service: Aug 03, 2024 Billing Provider: HEATHER PARKER MD Common Visit Codes: [id number] INP/OBS CARE(MOD) KEARA TOBAR RESIDENT Aug 03, 2024 12:28 HEATHER PARKER MD Aug 04, 2024 14:52
--- NOTE | 2024-08-03 12:28 | DVHPN2 ---
Progress Note - Dictate Date Seen: Aug 03, 2024 Medical Necessity Reason Pt with a Central, PICC or Fol: No Subjective No new complaints vital signs Vital Sign Date Time Temp Pulse Resp B/P (MAP) Pulse Ox O2 Delivery O2 Flow Rate FiO2 08/03/24 09:53 96/53 08/03/24 08:20 64 16 99 Nasal Cannula* 3 32 08/03/24 05:00 97.7 97.7 Total Intake and Output 08/02/24 08/02/24 08/03/24 15:00 23:00 07:00 Intake Total 100 ml 800 ml 904 ml Output Total 175 ml Balance 100 ml 800 ml 729 ml medications Current Medications Medications Dose Ordered Sig/Colleen Route Start Time Stop Time Status Last Admin Dose Admin Ondansetron HCl 4 mg Q4HP PRN IV 07/29/24 10:00 Acetaminophen 650 mg Q6HP PRN PO 07/29/24 10:00 Amiodarone HCl 400 mg DAILY PO 07/30/24 10:00 08/03/24 09:52 400 MG Sevelamer HCl 800 mg TIDWM PO 07/30/24 08:00 08/03/24 09:20 800 MG Piperacillin Sod/ Tazobactam Sod 50 ml @ 12.5 mls/hr Q12HR IV 07/30/24 10:00 08/03/24 09:53 12.5 MLS/HR Furosemide 40 mg DAILY PO 07/31/24 10:00 08/02/24 10:18 40 MG Sacubitril/ Valsartan 1 tab BID PO 07/31/24 10:00 Hold 08/02/24 10:18 1 TAB Pantoprazole Sodium 40 mg BID IV 07/31/24 10:00 08/03/24 09:51 40 MG Patient Own Medication 10 QAM PO 07/31/24 10:52 Carvedilol 3.125 mg BID PO 08/01/24 22:00 Hold objective Alert and awake HEENT: Normocephalic, no JVD Lungs: Diminished breath sounds at bases CVS: S1, S2 regular rate rhythm Abdomen: Soft, bowel sounds present 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 b.i.d. Colonoscopy as per GI Dietary Evaluation Review Comments: 1. Advance to GI Soft diet as tolerated; may consider renal modifier as needed but pt would benefit from least-restrictive diet possible given malnutrition 2. Will add Ensure Clear supplements TID appropriate for current diet order (provides 240 kcal, 8 gm pro per carton) 3. Encourage good oral intake >75% of meals 4. Monitor H&H closely, possible GI bleed Expected Outcomes/Goals: Improved nutritional status, gradual weight gain. Plan discussed with: Patient CC Plasma Assessment Blood Product Administration S: [id number] DINO PAREDES MD Aug 03, 2024 12:28
[2024-08-03] MEDS: GOLYTELY 4L KIT PO ONE (14:28)
[2024-08-03 18:51] LABS: Potassium 4.7 mmol/L (3.5-5.1)
[2024-08-03 18:52] LABS: Anion Gap 9 (5-15); Carbon Dioxide 28 mmol/L (20-31)
[2024-08-03 18:54] LABS: Calcium 8.3 mg/dL (8.7-10.4); Chloride 92 mmol/L (98-107); Sodium 129 mmol/L (136-145)
[2024-08-03 18:57] LABS: BUN/Creatinine Ratio 5.3 (10.0-20.0); Glucose 101 mg/dL (74-106)
[2024-08-03 19:04] LABS: Blood Urea Nitrogen 29 mg/dL (9-23)
--- NOTE | 2024-08-03 21:59 | DVHPN2 ---
Progress Note - Dictate Date Seen: Aug 03, 2024 Medical Necessity Reason Pt with a Central, PICC or Fol: No Subjective No new complaints Primary team requesting colonoscopy for evaluation of rectal bleeding vital signs Vital Sign Date Time Temp Pulse Resp B/P (MAP) Pulse Ox O2 Delivery O2 Flow Rate FiO2 08/03/24 17:00 97.6 65 17 96/57 (70) 100 97.6 08/03/24 08:20 Nasal Cannula* 3 32 Total Intake and Output 08/02/24 08/02/24 08/03/24 15:00 23:00 07:00 Intake Total 100 ml 800 ml 904 ml Output Total 175 ml Balance 100 ml 800 ml 729 ml medications Current Medications Medications Dose Ordered Sig/Colleen Route Start Time Stop Time Status Last Admin Dose Admin Ondansetron HCl 4 mg Q4HP PRN IV 07/29/24 10:00 Acetaminophen 650 mg Q6HP PRN PO 07/29/24 10:00 Amiodarone HCl 400 mg DAILY PO 07/30/24 10:00 08/03/24 09:52 400 MG Sevelamer HCl 800 mg TIDWM PO 07/30/24 08:00 08/03/24 18:51 800 MG Piperacillin Sod/ Tazobactam Sod 50 ml @ 12.5 mls/hr Q12HR IV 07/30/24 10:00 08/03/24 09:53 12.5 MLS/HR Furosemide 40 mg DAILY PO 07/31/24 10:00 Hold 08/02/24 10:18 40 MG Sacubitril/ Valsartan 1 tab BID PO 07/31/24 10:00 Hold 08/02/24 10:18 1 TAB Pantoprazole Sodium 40 mg BID IV 07/31/24 10:00 08/03/24 09:51 40 MG Patient Own Medication 10 QAM PO 07/31/24 10:52 Carvedilol 3.125 mg BID PO 08/01/24 22:00 Hold objective General Appearance: Alert, Oriented X3, Cooperative HEENT: Atraumatic Lungs: Clear to auscultation Chest/Breasts: Discharge Cardiovascular: Regular rate, Normal S1, Normal S2 Abdomen: Normal bowel sounds, Soft Medications laboratory and microbiology Laboratory Tests 08/03/24 18:22 08/03/24 09:38 Test 3/24/25 18:22 Range/Units Serum Glucose 101 74-106 mg/dL Problems(with codes): (1) GI bleed Prognosis Plan Patient will undergo bowel prep today and I will tentatively plan for a colonoscopy on 08/04/2024 Continue supportive care I will follow up Dietary Evaluation Review Comments: 1. Advance to GI Soft diet as tolerated; may consider renal modifier as needed but pt would benefit from least-restrictive diet possible given malnutrition 2. Will add Ensure Clear supplements TID appropriate for current diet order (provides 240 kcal, 8 gm pro per carton) 3. Encourage good oral intake >75% of meals 4. Monitor H&H closely, possible GI bleed Expected Outcomes/Goals: Improved nutritional status, gradual weight gain. Plan discussed with: Patient (Dr Fang), Other CC Plasma Assessment Blood Product Administration S: [id number] MARSHA PAK MD Aug 03, 2024 21:59
[2024-08-04] VITALS (9 sets, daily range): BP systolic 82–127; BP diastolic 45–66; PULSE 61–68; RESP 18–19; TEMP 96.4–98.4; O2SAT 90–100
[2024-08-04] MEDS: MAGNESIUM CITRATE SOLUTION 300 ML BTL PO ONE (06:27)
[2024-08-04] MEDS: GOLYTELY 4L KIT PO ONE (06:27)
[2024-08-04] MEDS ORDERED: SODIUM CHL 0.9% 1000 ML BAG XX ONE (07:00)
[2024-08-04 07:30] LABS: Alkaline Phosphatase 83 U/L (46-116); Anion Gap 8 (5-15); BUN/Creatinine Ratio 5.4 (10.0-20.0); Basophils # (auto) 0 10 ^3/uL (0-0.2); Basophils % (auto) 1.4 % (0.0-2.0); Carbon Dioxide 30 mmol/L (20-31); Eosinophils # (auto) 0.2 10 ^3/uL (0-0.8); Eosinophils % (auto) 11.6 % (0.0-7.0); Glucose 87 mg/dL (74-106); Hematocrit 29.7 % (41.0-53.0); Hemoglobin 9.9 g/dL (13.5-17.5); Lymphocytes # (auto) 0.3 10 ^3/uL (0.4-5.4); Lymphocytes % (auto) 15.8 % (10.0-50.0); Mean Corpuscular Hemoglobin 32.4 pg (28.0-32.0); Mean Corpuscular Hgb Conc. 33.3 g/dL (32.0-36.0); Mean Corpuscular Volume 97.5 fL (80.0-100.0); Monocytes # (auto) 0.2 10 ^3/uL (0-1.3); Monocytes % (auto) 11.4 % (0.0-12.0); Neutrophils # (auto) 1.2 10 ^3/uL (1.6-8.6); Neutrophils % (auto) 59.8 % (37.0-80.0); Nucleated Red Blood Cells % 0.3 %; Platelet Count (auto) 91 10^3/uL (140-450); Red Blood Cells 3.04 10^6/uL (4.5-5.90); Red Cell Distribution Width 20.3 % (11.8-14.3); White Blood Cell 2.1 10^3/uL (4.4-10.8)
[2024-08-04 07:31] LABS: Alanine Aminotransferase < 9 U/L (7-40); Albumin 2.9 g/dL (3.2-4.8); Aspartate Aminotransferase 9 U/L (13-40); Bilirubin, Total 0.6 mg/dL (0.2-1.0); Blood Urea Nitrogen 31 mg/dL (9-23); Calcium 8.5 mg/dL (8.7-10.4); Chloride 92 mmol/L (98-107); Sodium 130 mmol/L (136-145); Total Protein 5.1 g/dL (5.7-8.2)
[2024-08-04] MEDS ORDERED: SODIUM CHLORIDE LOCK 0 ML ONE (10:21)
[2024-08-04] MEDS ORDERED: FLUMAZENIL 0.1 MG/ML INJ 10ML MDV IV ONE (10:21)
[2024-08-04] MEDS ORDERED: NALOXONE HCL 0.4 MG/ML VIAL ONE (10:21)
[2024-08-04] MEDS ORDERED: diphenhdrAMINE HCL 50 MG/1 ML VL ONE (10:22)
[2024-08-04] MEDS ORDERED: MIDAZOLAM HCL 5 MG/ML-1ML VIAL ONE (10:22)
[2024-08-04] MEDS ORDERED: fentaNYL CITRATE 100 MCG/2 ML VL ONE (10:22)
[2024-08-04] MEDS: ONDANSETRON HCL 4 MG/2 ML VIAL IV PRN (12:31)
--- NOTE | 2024-08-04 14:18 | DVHPN2 ---
Progress Note - Dictate Date Seen: Aug 04, 2024 Medical Necessity Reason Pt with a Central, PICC or Fol: No Subjective No new complaints vital signs Vital Sign Date Time Temp Pulse Resp B/P (MAP) Pulse Ox O2 Delivery O2 Flow Rate FiO2 08/04/24 13:00 96.5 64 18 111/62 (78) 99 96.5 08/04/24 08:20 Nasal Cannula* 3 32 Total Intake and Output 08/03/24 08/03/24 08/04/24 15:00 23:00 07:00 Intake Total 500 ml 480 ml Output Total 250 ml 480 ml Balance 250 ml 0 ml medications Current Medications Medications Dose Ordered Sig/Colleen Route Start Time Stop Time Status Last Admin Dose Admin Ondansetron HCl 4 mg Q4HP PRN IV 07/29/24 10:00 08/04/24 12:31 4 MG Acetaminophen 650 mg Q6HP PRN PO 07/29/24 10:00 Amiodarone HCl 400 mg DAILY PO 07/30/24 10:00 08/04/24 10:02 400 MG Sevelamer HCl 800 mg TIDWM PO 07/30/24 08:00 08/04/24 12:45 800 MG Piperacillin Sod/ Tazobactam Sod 50 ml @ 12.5 mls/hr Q12HR IV 07/30/24 10:00 08/04/24 10:02 12.5 MLS/HR Furosemide 40 mg DAILY PO 07/31/24 10:00 Hold 08/02/24 10:18 40 MG Sacubitril/ Valsartan 1 tab BID PO 07/31/24 10:00 Hold 08/02/24 10:18 1 TAB Pantoprazole Sodium 40 mg BID IV 07/31/24 10:00 08/04/24 10:00 40 MG Patient Own Medication 10 QAM PO 07/31/24 10:52 Carvedilol 3.125 mg BID PO 08/01/24 22:00 Hold objective Alert and awake HEENT: Normocephalic, no JVD Lungs: Diminished breath sounds at bases CVS: S1, S2 regular rate rhythm Abdomen: Soft, bowel sounds present EKG TECHNICIAN: No focal deficits laboratory and microbiology Laboratory Tests 08/04/24 06:46 Test 08/04/24 06:46 Range/Units Serum Glucose 87 74-106 mg/dL Problem List Problem List End-stage kidney disease on hemodialysis, had HD today GI bleed Anemia secondary to above, consider blood transfusion Bilateral pleural effusion status post thoracentesis CT abdomen with evidence of rectal wall thickening Thrombocytopenia CAD /CHF Hyperlipidemia Assessment/Plan HD on TTS schedule without heparin Epogen with dialysis Decreased Coreg to 3.125 mg p.o. b.i.d. Colonoscopy as per GI Dietary Evaluation Review Comments: 1. Advance to GI Soft diet as tolerated; may consider renal modifier as needed but pt would benefit from least-restrictive diet possible given malnutrition 2. Will add Ensure Clear supplements TID appropriate for current diet order (provides 240 kcal, 8 gm pro per carton) 3. Encourage good oral intake >75% of meals 4. Monitor H&H closely, possible GI bleed Expected Outcomes/Goals: Improved nutritional status, gradual weight gain. Plan discussed with: Other CC Plasma Assessment Blood Product Administration S: [id number] DINO PAREDES MD Aug 04, 2024 14:18
--- NOTE | 2024-08-04 15:14 | DVHDSRES ---
Discharge Summary Date of Admission Resident Creating Document: KEARA TOBAR RESIDENT Jul 29, 2024 at 09:52 Date of Discharge: Aug 04, 2024 Admitting Diagnosis GI bleed Labs/Diagnostic Data: Laboratory Results Test 08/04/24 06:46 08/01/24 08:25 07/30/24 16:05 07/30/24 06:08 White Blood Count 2.1 10^3/uL (4.4-10.8) Red Blood Count 3.04 10^6/uL (4.5-5.90) Hemoglobin 9.9 g/dL (13.5-17.5) Hematocrit 29.7 % (41.0-53.0) Mean Corpuscular Volume 97.5 fL (80.0-100.0) Mean Corpuscular Hemoglobin 32.4 pg (28.0-32.0) Mean Corpuscular Hemoglobin Concent 33.3 g/dL (32.0-36.0) Red Cell Distribution Width 20.3 % (11.8-14.3) Platelet Count 91 10^3/uL (140-450) Mean Platelet Volume 7.4 fL (6.9-10.8) Neutrophils (%) (Auto) 59.8 % (37.0-80.0) Lymphocytes (%) (Auto) 15.8 % (10.0-50.0) Monocytes (%) (Auto) 11.4 % (0.0-12.0) Eosinophils (%) (Auto) 11.6 % (0.0-7.0) Basophils (%) (Auto) 1.4 % (0.0-2.0) Neutrophils # (Auto) 1.2 10 ^3/uL (1.6-8.6) Lymphocytes # (Auto) 0.3 10 ^3/uL (0.4-5.4) Monocytes # (Auto) 0.2 10 ^3/uL (0-1.3) Eosinophils # (Auto) 0.2 10 ^3/uL (0-0.8) Basophils # (Auto) 0 10 ^3/uL (0-0.2) Nucleated Red Blood Cells 0.3 % Sodium Level 130 mmol/L (136-145) Potassium Level 5.0 mmol/L (3.5-5.1) Chloride Level 92 mmol/L (98-107) Carbon Dioxide Level 30 mmol/L (20-31) Anion Gap 8 (5-15) Blood Urea Nitrogen 31 mg/dL (9-23) Creatinine 5.69 mg/dL (0.700-1.30) Glomerular Filtration Rate Calc 10 mL/min (>90) BUN/Creatinine Ratio 5.4 (10.0-20.0) Serum Glucose 87 mg/dL (74-106) Calcium Level 8.5 mg/dL (8.7-10.4) Magnesium Level 2.0 mg/dL (1.6-2.6) Total Bilirubin 0.6 mg/dL (0.2-1.0) Aspartate Amino Transferase (AST) 9 U/L (13-40) Alanine Aminotransferase (ALT) < 9 U/L (7-40) Alkaline Phosphatase 83 U/L (46-116) Total Protein 5.1 g/dL (5.7-8.2) Albumin 2.9 g/dL (3.2-4.8) Hepatitis B Surface Antigen Negative (Negative) Urine Color Yellow (Yellow) Urine Clarity Clear (Clear) Urine pH 6.5 (5.0-9.0) Urine Specific Ucon 1.009 (1.001-1.035) Urine Protein 1+ (Negative) Urine Ketones Negative (Negative) Urine Blood 1+ /uL (Negative) Urine Nitrite Negative (Negative) Urine Bilirubin Negative (Negative) Urine Urobilinogen Normal mg/dL (Negative) Urine Leukocyte Esterase Negative /uL (Negative) Urine RBC 1 /hpf (0 - 3) Urine Microscopic WBC 3 /HPF (0-3) Urine Squamous Epithelial Cells Few /hpf (<5) Urine Bacteria None seen /hpf (None Seen) Urine Glucose 1+ mg/dL (Normal) Iron Level 82 ug/dL (65-175) Total Iron Binding Capacity 171 ug/dL (250-425) Percent Iron Saturation 48.0 % (20-55) Ferritin 932.6 ng/mL (22-322) Carcinoembryonic Antigen 8.05 ng/mL (<=5.0) Vitamin B12 Level 606 pg/mL (211-911) Folic Acid 9.27 ng/mL (>5.38) Test 07/29/24 20:00 07/29/24 07:34 Influenza Type A Antigen Negative (Negative) Influenza Type B Antigen Negative (Negative) SARS-CoV-2 Antigen (Rapid) Negative (NEGATIVE) Prothrombin Time 11.9 sec (9.3-11.8) Prothrombin Time INR 1.14 (0.9-1.15) Activated Partial Thromboplast Time 36.5 SEC (24.5-34.5) Lactic Acid Level 0.8 mmol/L (0.4-2.0) B-Type Natriuretic Peptide 1049.38 pg/mL (0-100) Other Laboratory Tests 08/04/24 06:46 Brief Hx & Hospital Course: This is a 64-year-old male who came in due to blood in his stool. PMH: AFIB, CAD, Other (cardiac stents x 3, pacemaker, cardiac ablation x 3), Pulmonary hypertension, Anemia NOS, Chronic renal failure (on HD-T,,) Past Surgical History: Other (cardiac stents x 3, pacemaker, cardiac ablation x 3) Social history: Smoke: No. ALCOHOL: none. Drugs: None. Lives: Fdc Patient is residing at [facility]. The staff stated that blood in his stool was noted on Saturday. They stopped giving him his Eliquis and did not see anymore blood in his stool for the next few days. Yesterday they noticed blood in his stool again, it continued this morning as well, so they called EMS for him to come to the hospital. Patient was recently admitted here for over 2 weeks. During his stay he was found down and code blue was called. CPR was initiated, he was intubated and in ICU for a few days. He also has a history of anemia, and received 4 units of blood during that stay. Patient was not able to tell me why he takes Eliquis. He does have a history of atrial fibrillation, but has undergone heart ablations, and had a pacemaker placed. On my initial assessment, patient was seen and examined at bedside, he was in [id number] distress due to shortness of breath, he was on nasal cannula at 3-4 L, patient is only complain of generalized weakness, shortness of breath, hematochezia. Patient has had two RBC pack transfused during this hospitalization, he also had thoracentesis performed, yellow straw colored fluid was through, around 1.5 L. he continued to have hemodialysis every other day during this hospitalization. Patient has had significant improvement in his breathing after this procedure. Patient stated having bowel movements with no blood, he was continued on clear liquid diet, he was scheduled to undergo a colonoscopy however patient refused to take GoLYTELY. Patient stated that he would like to undergo colonoscopy in the outpatient setting. He stated feeling well denied any significant chest pain, shortness of breath, dizziness, lightheadedness, abdominal pain, he is currently tolerating diet. His only complaint was generalized weakness. General: Awake, alert, comfortable appearing, in no distress HEENT: Head is normocephalic and atraumatic. Pupils are equal, round, and reactive to light. Extraocular muscles are intact. No nasal discharge. No facial trauma. Intraoral exam shows moist mucous membranes with no tonsillar enlargement or exudate. Neck: Supple with no cervical lymphadenopathy. Heart: Regular rate without murmur, rub, or gallop. Lungs: Equal breath sounds bilaterally with no wheezing, rales, or rhonchi. There is no chest wall tenderness or instability. Abdomen: No external sign of injury. Bowel sounds are present. Abdomen is soft, nontender. No rebound, no guarding, no rigidity. There are no palpable masses. There is no flank pain on exam. Extremities: Strong peripheral pulses. There is no clubbing, no cyanosis, and no edema. Skin: Right-sided dialysis catheter Neurologic: Cranial nerves II-XII intact without motor, sensory, or cerebellar deficit, no asterixis. Patient will be discharged back to SNF for continued physical therapy, patient was counseled in of obtaining a colonoscopy, he refused to get it during this hospitalization, he will like to get it in the outpatient setting. Patient will continue his home medication. He should follow up with his PCP after being discharged from SNF. Patient verbalized understanding and agree with the DC plan, we spent over 30 minutes explaining the plan. Case was discussed with Dr. Parker Consults/Reason for consult Nephrology was consulted due to end-stage renal disease on hemodialysis. Barkeeper was consulted due to GI bleeding Operations or Procedures [address] [address] Ph: [phone] DIAGNOSTIC IMAGING Diagnostic Imaging Report : [id number] Signed PATIENT: SUSHMA THAYER ACCT: [id number] UNIT: [id number] : 1960 LOC: OVERFLOW ROOM / BED: 1016-ERT / A AGE / SEX: 64 / M ADM STATUS: ADM IN SERVICE 0959 ORDERING PHYSICIAN: RAIZA CINTRON PROCEDURE(s): ABPL - CT AB PEL WO CON-NO ORAL OR IV REASON: GI bleed ORDER NUMBER(s): [id number], ACCESSION NUMBER(s): [id number] Procedure: CT CT AB PEL WO CON-NO ORAL OR IV 07/29/2024 10:20 AM Indication: GI bleed Comparison Study: Chest CT scan dated 06/29/2024 Technique: Axial images were obtained and reformatted in coronal and sagittal planes. All CT scans at this medical facility are performed using dose modulation techniques as appropriate to a performed exam including the following: Automated exposure control was utilized; adjustment of the MA and/or KV according to patient size; and use of iterative reconstruction technique. CT Dose: CTDI volume is 12.54 mGy. Dose-length product is 806.5 mGy*cm FINDINGS: Lower Chest: Moderate cardiomegaly. Pacer wires are seen. Calcification of the left ventricular wall noted. Suggestion of anemia. Moderate right pleural effusion. Moderate bilateral lower lung zone pulmonary opacities. Hepatobiliary: Noted. markable. Subcentimeter calcifications in linear pattern noted in the right and left hepatic lobes. A Spleen: Unremarkable. Pancreas: Unremarkable. Adrenal Glands: Unremarkable. tract: The kidneys are moderately atrophic bilaterally containing several small cysts. hydronephrosis or nephrolithiasis. A right posterior bladder wall diverticulum noted. No bladder calculi. GI tract: The stomach is grossly normal in appearance. No evidence of small bowel obstruction. The large bowel is unremarkable. Mild circumferential mural thickening of rectal wall. The appendix is normal. Lymphatics: No mesenteric, retroperitoneal or periportal lymphadenopathy. Vasculature: The abdominal aorta is normal in caliber. Diffuse calcified plaque formation is noted. Pelvic Organs: Unremarkable Bones/soft tissues: Diffuse body wall edema. Other: None. IMPRESSION: 1. Moderate right pleural effusion moderate bilateral lower lung zone pulmonary opacities represent pneumonia or atelectasis.Moderate 2. Moderate cardiomegaly . 3. Suggestion of anemia. 4. Diffuse atherosclerotic disease. 5. Several subcentimeter calcifications in the liver and in portal hepatis along the vessels that are of uncertain etiology. 6. Atrophic kidneys bilaterally containing several small renal cysts. 7. Mild circumferential rectal wall thickening that could be related to incomplete distention or reflect mural inflammation or infiltrative mural lesion. Recommend clinical and biochemical correlation. ATED BY: VEE LAWSON MD DICTATED DATE/TIME: 07/29/241327 SIGNED BY: VEE LAWSON MD SIGNED DATE/TIME: 07/29/241327 CC: [place] [address] Ph: [phone] DIAGNOSTIC IMAGING Diagnostic Imaging Report : [id number] Signed PATIENT: SUSHMA THAYER ACCT: [id number] UNIT: [id number] : 1960 LOC: [facility] AGE / SEX: 64 / M ADM STATUS: ADM IN SERVICE 6 ORDERING PHYSICIAN: KEARA TOBAR PROCEDURE(s): CHSTU - CHEST ULTRASOUND REASON: moderate right pleural effusion on ct ORDER NUMBER(s): [id number], ACCESSION NUMBER(s): [id number] US CHEST ULTRASOUND, HISTORY: moderate right pleural effusion on ct COMPARISON(S): None TECHNICAL DATA: Transverse and longitudinal images are obtained of the chest. FINDING: IMPRESSION(S): Moderate right pleural effusion. ATED BY: VARGAS BENNETT MD DICTATED DATE/TIME: 07/30/2448 SIGNED BY: VARGAS BENNETT MD SIGNED DATE/TIME: 07/30/24847 CC: [place] [address] Ph: [phone] DIAGNOSTIC IMAGING Diagnostic Imaging Report : [id number] Signed PATIENT: SUSHMA THAYER ACCT: [id number] UNIT: [id number] : 1960 LOC: [facility] AGE / SEX: 64 / M ADM STATUS: ADM IN SERVICE 6 ORDERING PHYSICIAN: KEARA TOBAR PROCEDURE(s): CXRP - CHEST PORTABLE REASON: sob ORDER NUMBER(s): [id number], ACCESSION NUMBER(s): [id number] EXAM: XY CHEST PORTABLE Indication: sob Technique: Single frontal view of the chest was obtained Comparison: XY CHEST XRAY 1 VIEW on DOS: 07/18/24, XY CHEST PORTABLE on DOS: 07/15/24, XY CHEST PORTABLE on DOS: 07/09/24, XY CHEST PORTABLE on DOS: 07/09/24, XY CHEST PORTABLE on DOS: 07/09/24 FINDINGS: Lines and Tubes: Cardiac pacemaker projects over left chest wall. Right central venous catheter tip projects over the superior vena cava. Lungs: Left basilar opacity. Pulmonary edema. Pleura: Small left pleural effusion. Trace right pleural effusion. No pneumothorax. Cardiomediastinal contours: Cardiomegaly. Bones: No acute osseous abnormality. IMPRESSION: Cardiomegaly with small left and trace right pleural effusion. Left basilar opacity. ATED BY: RUTHIE TORRES MD DICTATED DATE/TIME: 07/30/24953 SIGNED BY: RUTHIE TORRES MD SIGNED DATE/TIME: 07/30/24953 CC: [place] [address] Ph: [phone] DIAGNOSTIC IMAGING Diagnostic Imaging Report : [id number] Signed PATIENT: SUSHMA THAYER ACCT: [id number] UNIT: [id number] : 1960 LOC: [facility] ROOM / BED: [address] [place] [address] A AGE / SEX: 64 / M ADM STATUS: ADM IN SERVICE 8 ORDERING PHYSICIAN: KEARA TOBAR RESIDENT PROCEDURE(s): THORA - THORACENTESIS REASON: right pleural effusion ORDER NUMBER(s): [id number], ACCESSION NUMBER(s): [id number] US THORACENTESIS, HISTORY: right pleural effusion PROCEDURE: Informed consent was obtained. The patient was decubitus on the bed. A limited localization ultrasound of the right thorax was obtained, and the optimal approach was marked on the skin. The area was prepped with chlorhexidine which was allowed to dry and draped in the usual sterile fashion. Time out was performed. The skin and the soft tissues were infiltrated with 1% lidocaine. A 5.5 Belarusian centesis needle catheter was advanced into right pleural space. Following aspiration of fluid, the catheter was advanced and the needle removed. About 1500 cc of fluid was drained. No immediate complication was identified. FINDINGS: Moderate right pleural effusion. Aspirated fluid is clear and serous. IMPRESSION: Successful right thoracentesis with 1.5L removed. ATED BY: VARGAS BENNETT MD DICTATED DATE/TIME: 07/30/24 1153 SIGNED BY: VARGAS BENNETT MD SIGNED DATE/TIME: 07/30/24 115 CC: [place] [address] Ph: [phone] DIAGNOSTIC IMAGING Diagnostic Imaging Report : [id number] Signed PATIENT: SUSHMA THAYER ACCT: [id number] UNIT: [id number] : 1960 LOC: [facility] ROOM / BED: [address] [place] [address] A AGE / SEX: 64 / M ADM STATUS: ADM IN SERVICE 06 ORDERING PHYSICIAN: VARGAS BENNETT MD PROCEDURE(s): CXRP - CHEST PORTABLE REASON: POST THORACENTESIS ORDER NUMBER(s): [id number], ACCESSION NUMBER(s): [id number] XY CHEST PORTABLE, HISTORY: POST THORACENTESIS COMPARISON: XY CHEST PORTABLE on DOS: 07/30/24, XY CHEST XRAY 1 VIEW on DOS: 07/18/24, XY CHEST PORTABLE on DOS: 07/15/24 XY CHEST PORTABLE on DOS: 07/30/24, XY CHEST XRAY 1 VIEW on DOS: 07/18/24, XY CHEST PORTABLE on DOS: 07/15/24 TECHNICAL DATA: 1 view of the chest was obtained. FINDINGS: Lines and tubes: Stable Cardiomediastinal silhouette: Enlarged Pulmonary vasculature: normal Lung expansion: Similar Lung airspace: Similar Lung interstitium: Similar Pleura: Small left effusion. Pneumothorax: no Bones: Unremarkable Other: no IMPRESSION: No pneumothorax seen. ATED BY: VARGAS BENNETT MD DICTATED DATE/TIME: 07/30/24 1152 SIGNED BY: VARGAS BENNETT MD SIGNED DATE/TIME: 07/30/24 1152 CC: Condition at Discharge: Guarded Final Diagnosis/Problems List GI bleeding, possible angiodysplasias, diverticular disease Possible proctitis, rule out malignancy Thrombocytopenia, severe Secondary coagulopathy Acute on chronic hypoxic respiratory failure Severe anemia status post blood transfusion Atrial fibrillation Cardiac ablation x3 Pleural effusion status post thoracentesis Pneumonia Gram-positive versus Gram-negative ESRD on HD CAD x3 stents Pacemaker Chronic systolic CHF Discharge Disposition: [facility] Discharge Instruct/Medications Diet: Renal Activity: No Restrictions, As Tolerated Follow Up/Referral: fu with pcp in 1-2 weeks Medications: continue meds as prescribed in spreadsheet Discharge Statement: "Patient was advised to return to the ER or call 911 if any headaches, dizziness, shortness of breath, chest pain, abdominal pain, bleeding, fevers, or worsening of medical condition. Patient was counseled about treatment plan, medications, possible side effects, patientverbalized understanding. All questions were answered to the best of my ability. This discharge took greater then 30 minutes in planning, reviewing documentation, counseling the patient, and discussing with other team members." ASSESSMENT ASSESSMENT Assessment lower gi bleeding Date of Service: Aug 04, 2024 Billing Provider: HEATHER PARKER MD Common Visit Codes: 83654-JXJ/OBS DISCH DAY >30min KEARA TOBAR RESIDENT Aug 04, 2024 15:14 HEATHER PARKER MD Aug 04, 2024 17:25
[2024-08-04] MEDS ORDERED: HEPARIN SODIUM (PORCINE) 5000 UNITS/ML 1ML VIAL IV ONE (16:45)
[2024-08-04] MEDS ORDERED: HEPARIN 1,000 UNITS/ml 1ML VIAL IV ONE (17:00)
[2024-08-04] MEDS: EPOETIN ALFA-EPBX 10,000 UNIT/1ML VIAL SC ONE (21:07)
--- NOTE | 2024-08-04 22:42 | DVHPN2 ---
Progress Note - Dictate Date Seen: Aug 04, 2024 Medical Necessity Reason Pt with a Central, PICC or Fol: No Subjective Pt was undergoing dialysis this afternnon No active bleeding Pt refused bowel prep and colonoscopy exam Colonoscopy cancelled Discharge planning in progress vital signs Vital Sign Date Time Temp Pulse Resp B/P (MAP) Pulse Ox O2 Delivery O2 Flow Rate FiO2 08/04/24 21:00 98.4 68 19 127/64 (85) 100 98.4 08/04/24 08:20 Nasal Cannula* 3 32 Total Intake and Output 08/03/24 08/03/24 08/04/24 15:00 23:00 07:00 Intake Total 500 ml 480 ml Output Total 250 ml 480 ml Balance 250 ml 0 ml objective General Appearance: Alert, Oriented X3, Cooperative HEENT: Atraumatic Lungs: Clear to auscultation Chest/Breasts: Discharge Cardiovascular: Regular rate, Normal S1, Normal S2 Abdomen: Normal bowel sounds, Soft Medications laboratory and microbiology Laboratory Tests 08/04/24 06:46 Test 08/04/24 06:46 Range/Units Serum Glucose 87 74-106 mg/dL Problems(with codes): (1) ESRD needing dialysis (2) Severe anemia (3) GI bleed (4) CHF exacerbation Prognosis Colonoscopy cancelled Discharge planning in progress Dietary Evaluation Review Comments: 1. Advance to GI Soft diet as tolerated; may consider renal modifier as needed but pt would benefit from least-restrictive diet possible given malnutrition 2. Will add Ensure Clear supplements TID appropriate for current diet order (provides 240 kcal, 8 gm pro per carton) 3. Encourage good oral intake >75% of meals 4. Monitor H&H closely, possible GI bleed Expected Outcomes/Goals: Improved nutritional status, gradual weight gain. Plan discussed with: Patient, Other (Nurse) CC Plasma Assessment Blood Product Administration S: [id number] MARSHA PAK MD Aug 04, 2024 22:42
== END 2024-08-04 21:14 | DRG 166 ==
LOC: EDBD 06:37 → ER 06:37 → OVERFLOW 09:52 → TELE-EAST 23:28
PROVIDERS: ADMIT Internal Medicine; ATTEND Internal Medicine
PROC: 30233N1 Transfusion of Nonautologous Red Blood Cells into Peripheral Vein, Percutaneous Approach (ICD-10-PCS; principal; 2024-07-29)
PROC: 0W994ZZ Drainage of Right Pleural Cavity, Percutaneous Endoscopic Approach (ICD-10-PCS; 2024-07-30)
PROC: 5A1D70Z Performance of Urinary Filtration, Intermittent, Less than 6 Hours Per Day (ICD-10-PCS; 2024-07-30)
PROC: 5A1D70Z Performance of Urinary Filtration, Intermittent, Less than 6 Hours Per Day (ICD-10-PCS; 2024-08-04)
PROC: 5A1D70Z Performance of Urinary Filtration, Intermittent, Less than 6 Hours Per Day (ICD-10-PCS; 2024-08-04)
DX: J15.69 Pneumonia due to other Gram-negative bacteria (principal); J96.21 Acute and chronic respiratory failure with hypoxia; K55.21 Angiodysplasia of colon with hemorrhage; N18.6 End stage renal disease; I50.22 Chronic systolic (congestive) heart failure; D68.9 Coagulation defect, unspecified; J90 Pleural effusion, not elsewhere classified; J15.9 Unspecified bacterial pneumonia; D64.9 Anemia, unspecified; D69.6 Thrombocytopenia, unspecified; E78.5 Hyperlipidemia, unspecified; I48.91 Unspecified atrial fibrillation; I25.10 Atherosclerotic heart disease of native coronary artery without angina pectoris; J98.4 Other disorders of lung; K57.90 Diverticulosis of intestine, part unspecified, without perforation or abscess without bleeding; Z85.46 Personal history of malignant neoplasm of prostate; Z79.01 Long term (current) use of anticoagulants; Z79.2 Long term (current) use of antibiotics; Z82.49 Family history of ischemic heart disease and other diseases of the circulatory system; Z99.2 Dependence on renal dialysis; Z95.5 Presence of coronary angioplasty implant and graft; K62.89 Other specified diseases of anus and rectum
CPT/HCPCS: 32555; 36415; 71045; 74176; 76604; 76942; 80048; 80053; 81001; 82378; 82607; 82728; 82746; 83540; 83550; 83605; 83735; 83880; 85014; 85018; 85025; 85610; 85730; 86850; 86900; 86901; 86920; 87040; 87070; 87081; 87205; 87340; 87426; 87804; 90935; 93005; 97110; 97116; 97163; 97530; 99291; G0378; J2250; J2405; J2470; J2543

== ENCOUNTER 2024-08-08 17:07 | Inpatient (IN) | payer MEDICARE, OTHER ==
[~2024-08-08] VITALS: Ht 188 cm; Wt 72.3 kg
[2024-08-08 17:07] VITALS: PULSE 0; RESP 18; O2SAT 0
--- NOTE | 2024-08-08 17:30 | ED.PDOC ---
CPR-HPI HPI Comments HPI: 64y M who presents to the ED via EMS for chief complaint of cardiac arrest: - pt is resident at [facility] and was recently at dialysis appt and was being transported back to facility - pt became unresponsive in transport vehicle and was brought to the ED, - transport staff was performing CPR upon EMS arrival and ED staff took over CPR upon ED arrival - transport staff unable to provide any information Past Medical History: GI bleeding, possible angiodysplasias, diverticular disease Possible proctitis, rule out malignancy Thrombocytopenia, severe Secondary coagulopathy Acute on chronic hypoxic respiratory failure Severe anemia status post blood transfusion Atrial fibrillation Cardiac ablation x3 Pleural effusion status post thoracentesis Pneumonia Gram-positive versus Gram-negative ESRD on HD CAD x3 stents Pacemaker Chronic systolic CHF Past Surgical History: cardiac stents x 3, pacemaker, cardiac ablation x 3 medications: norco allergies: nkda Social History: denies tobacco use, denies ETOH use, denies drug use Tipps: HPI: Poor Historian. Past Medical History: Past Surgical History: REVIEW OF SYSTEMS: Limited given the patient condition of Of being unresponsive. CPR in progress. CONSTITUTIONAL: Denies acute: fever, diaphoresis, chills, generalized weakness. HEAD: Denies acute: headache, photophobia Eyes: Denies acute: Double vision, vision loss, eye pain, eye discharge. EARS: Denies acute: tinnitus, hearing loss, ear discharge, ear pain, THROAT: Denies acute: sore throat, swelling, difficulty swallowing , pain with swallowing, change in voice. NECK: Denies acute: neck pain, neck swelling, stiff neck. HEART: Denies acute : chest pain, palpitations, LUNGS: Denies acute: SOB, wheezing, cough, hemoptysis ABDOMEN: Denies acute: abdominal pain, Nausea, Vomiting, diarrhea, melena , hematemesis, hematochezia SKIN: Denies acute: rash, redness, lesions, itchiness. EXTREMITIES: Denies acute: calf pain, numbness, tingling, weakness, denies pain in extremity. Denies acute: Low back pain. Neuro: Denies acute: focal neurological deficit, motor or sensory focal neurological deficit, tremors, seizure like activity, confusion, dizziness, change in mental status, loss of bowel or bladder function, cauda equina like symptoms. : Denies acute: dysuria, hematuria, flank pain, increase in urinary frequency. PSYCH: Denies acute: hallucination, suicidal ideation, homicidal ideation. FEMALE: Denies acute: abnormal vaginal bleeding, foul odor, unusual discharge. PHYSICAL EXAM: General: Unresponsive CPR in progress on arrival Head: normocephalic, atraumatic. Neck: supple, trachea is midline, no swelling. Throat: No swelling or masses appreciated during intubation Eyes:, no erythema, no purulent discharge, no proptosis, no icterus. Heart: CPR in progress Lungs: CPR in progress, bag-valve mask in progress. Patient was subsequently intubated with a GlideScope successfully from 1st attempt. Abdomen: , non distended, soft, Neuro: GCS three unresponsive CPR in progress cardiopulmonary arrest Skin: no petechia, no purpura, mild cyanosis, appears-pale, not jaundice. Noted multiple skin contusions or bruises consistent with a history of dialysis Noted right chest wall vascular access. Lower extremities: --trace bilateral- Pitting edema no deformity, no focal swelling, Eyes are edematous sclera, no erythema or discharge, non icterus, pupils are reactive to light bilaterally. ED COURSE: Chief Complaint: CPR Time Seen by MD: 17:19 Primary Care Provider: BARBRA Reviewed Notes: Nurses Notes, Or Nurse Manager Notes, Medications Allergies: Coded Allergies: NO KNOWN ALLERGIES (Unverified , 04/07/24) Home Meds Active Scripts Famotidine (PEPCID TABLET) 20 Mg Tb, 1 TAB PO BID for 30 Days, #60 TAB 5 Refills Prov:MICHAEL GREGGPEARL [facility] 05/21/24 Sacubitril-Valsartan (Entresto 24-26 mg) 1 Tab Tab, 1 TAB PO BID for 30 Days, #60 TAB [facility]24 Sevelamer Carbonate (Renvela) 800 Mg Tab, 1 TAB PO TID for 30 Days, #90 TAB 3 Refills Prov:MICHAEL GREGGPEARL [facility] 05/21/24 Carvedilol (Carvedilol) 6.25 Mg Tab, 1 TAB PO BID for 30 Days, #60 TAB 1 Refill Prov:[facility] 05/21/24 Furosemide (Lasix) 20 Mg Tb, 40 MG PO DAILY for 30 Days, #30 TAB Prov:MICHAEL GREGGPEARL [facility] 05/21/24 Doxycycline (Monohydrate) (Doxycycline) 100 Mg Cap, 100 MG PO BID for 5 Days, #10 CAP Prov:MICHAEL GREGGPEARL [facility] 05/21/24 Amiodarone HCl (Amiodarone HCl) 200 Mg Tab, 400 MG PO DAILY for 30 Days, #60 TAB Prov:MONIQUE MACDONALD [employer] [employer] 04/29/24 Digoxin (Lanoxin) 125 Mcg Tab, 0.125 MG PO EOD for 30 Days, #30 TAB Prov:MONIQUE MACDONALD [employer] 04/29/24 Reported Medications Apixaban Base (ELIQUIS) 2.5 Mg Tab, 2.5 MG PO BID for 60 Days, #60 04/09/24 Dapagliflozin Propanediol (Farxiga) 10 Mg Tab, 1 TAB PO DAILY for 30 Days, #30 04/09/24 Aripiprazole (Aripiprazole) 5 Mg Tab, 1 TAB PO DAILY for 30 Days, #30 04/09/24 Information Source: Emergency Med Personnel Mode of Arrival: EMS Past Medical History PAST MEDICAL HISTORY: CAD, Cancer, CHF, ESRD, High Lipids, [place] Surgical History: Pacemaker Family History Family History: Reviewed,noncontributory to illness, Unknown Social History Smoker: Non-Smoker Alcohol: Denies ETOH Use Drugs: Denies Drug Use Lives In: Home Was a procedure done? 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 Indication: CVP monitoring Room prepared for procedure: Yes Fiber Optic Assembler performed hand hygien: Yes Maximal sterile barrier precau: Sterile gown, Sterlie gloves, Large sterlie drape Skin Preparation: Chlorhexidine gluconate Skin preparation completely dr: Yes Insertion site: Right, Femoral Central line catheter type: Owt-[id number] dialysis Intubation Indication: Airway Protection Prep: No Preoxygenation Intubation Approach: Orotracheal Intubation size: cm (7.5) Differential Dx CPR Differential Diagnosis: Cardiopulmonary arrest, Cardiac Tamponade, Cardiogenic shock, Dysrhythmia, Electrolyte disorder, Heart Block, Myocardial Infarction, Pneumothorax, Pulmonary Embolus, Respiratory Failure, Ruptured Aortic Aneurysm X-Ray, Labs, Meds, VS Vital Signs Date Time Temp Pulse Resp B/P (MAP) Pulse Ox O2 Delivery O2 Flow Rate FiO2 08/08/24 18:45 62 20 95/47 (63) 100 08/08/24 18:45 95/47 08/08/24 18:35 75/41 08/08/24 18:30 80/43 08/08/24 18:30 60 12 80/43 (55) 100 08/08/24 18:25 77/38 08/08/24 18:20 72/36 08/08/24 18:15 60 14 70/35 (47) 08/08/24 18:13 69/35 08/08/24 18:00 62 17 94/48 (63) 08/08/24 17:50 60 21 151/74 (99) 08/08/24 17:45 146/112 08/08/24 17:36 95.3 68 20 146/112 (123) 95.3 08/08/24 17:19 95.5 66 16 105/66 (79) 95.5 08/08/24 17:18 75 08/08/24 17:07 0 18 0 T-piece 15 N/A Lab Test 08/08/24 18:55 08/08/24 18:09 08/08/24 17:53 Range/Units Troponin I High Sensitivity 41 42 </=54 ng/L Urine Color Light-yellow Yellow Urine Clarity Clear Clear Urine pH 7.5 5.0-9.0 Urine Specific [place] 1.011 1.001-1.035 Urine Protein 1+ H Negative Urine Ketones Negative Negative Urine Blood Negative Negative /uL Urine Nitrite Negative Negative Urine Bilirubin Negative Negative Urine Urobilinogen Normal Negative mg/dL Urine Leukocyte Esterase Negative Negative /uL Urine RBC 1 0 - 3 /hpf Urine Microscopic WBC 1 0-3 /HPF Urine Squamous Epithelial Cells Few <5 /hpf Urine Bacteria None seen None Seen /hpf Urine Glucose 3+ H Normal mg/dL White Blood Count 3.4 #L 4.4-10.8 10^3/uL Red Blood Count 3.39 L 4.5-5.90 10^6/uL Hemoglobin 11.1 L 13.5-17.5 g/dL Hematocrit 34.6 #L 41.0-53.0 % Mean Corpuscular Volume 102.0 #H 80.0-100.0 fL Mean Corpuscular Hemoglobin 32.6 H 28.0-32.0 pg Mean Corpuscular Hemoglobin Concent 32.0 32.0-36.0 g/dL Red Cell Distribution Width 21.3 H 11.8-14.3 % Platelet Count 139 #L 140-450 10^3/uL Mean Platelet Volume 7.4 6.9-10.8 fL Neutrophils (%) (Auto) 63.6 37.0-80.0 % Lymphocytes (%) (Auto) 19.0 10.0-50.0 % Monocytes (%) (Auto) 9.2 0.0-12.0 % Eosinophils (%) (Auto) 6.8 0.0-7.0 % Basophils (%) (Auto) 1.4 0.0-2.0 % Neutrophils # (Auto) 2.2 1.6-8.6 10 ^3/uL Lymphocytes # (Auto) 0.6 0.4-5.4 10 ^3/uL Monocytes # (Auto) 0.3 0-1.3 10 ^3/uL Eosinophils # (Auto) 0.2 0-0.8 10 ^3/uL Basophils # (Auto) 0 0-0.2 10 ^3/uL Nucleated Red Blood Cells 0.3 % Prothrombin Time 12.4 H 9.3-11.8 sec Prothrombin Time INR 1.19 H 0.9-1.15 Activated Partial Thromboplast Time 29.1 24.5-34.5 SEC Sodium Level 135 #L 136-145 mmol/L Potassium Level 4.4 3.5-5.1 mmol/L Chloride Level 96 L 98-107 mmol/L Carbon Dioxide Level 32 H 20-31 mmol/L Anion Gap 7 5-15 Blood Urea Nitrogen 9 9-23 mg/dL Creatinine 2.39 #H 0.700-1.30 mg/dL Glomerular Filtration Rate Calc 29 >90 mL/min BUN/Creatinine Ratio 3.8 L 10.0-20.0 Serum Glucose 160 H 74-106 mg/dL Lactic Acid Level 4.8 *H 0.4-2.0 mmol/L Calcium Level 7.9 L 8.7-10.4 mg/dL Magnesium Level 1.8 1.6-2.6 mg/dL Total Bilirubin 0.6 0.2-1.0 mg/dL Aspartate Amino Transferase (AST) 34 13-40 U/L Alanine Aminotransferase (ALT) 13 7-40 U/L Alkaline Phosphatase 117 H 46-116 U/L Total Protein 5.4 L 5.7-8.2 g/dL Albumin 3.2 3.2-4.8 g/dL Current Medications Medications (Trade) Dose Ordered Sig/Colleen Route Start Time Stop Time Status Last Admin Midazolam HCl 50 ml @ 1 mls/hr Q24H IV 08/08/24 17:45 08/08/24 17:45 Epinephrine HCl 250 ml @ 7.5 mls/hr Q24H IV 08/08/24 18:15 08/08/24 18:13 [place] [address] Ph: [phone] DIAGNOSTIC IMAGING Diagnostic Imaging Report : [id number] Signed PATIENT: SUSHMA THAYER ACCT: [id number] UNIT: [id number] : 1960 LOC: OVERFLOW ROOM / BED: [address] [place] [address] AGE / SEX: 64 / M ADM STATUS: ADM IN SERVICE 54 ORDERING PHYSICIAN: CHERI STEVENSON DO PROCEDURE(s): CXR1 - CHEST XRAY 1 VIEW REASON: ET TUBE PLACEMENT AND NG TUBE PLACEMENT ORDER NUMBER(s): [id number], ACCESSION NUMBER(s): [id number] CHEST RADIOGRAPH Indication: ET TUBE PLACEMENT AND NG TUBE PLACEMENT Technique: Single frontal view of the chest was obtained Comparison: XY CHEST XRAY 1 VIEW on DOS: 08/08/24, XY CHEST PORTABLE on DOS: 07/30/24, XY CHEST PORTABLE on DOS: 07/30/24 FINDINGS: Lines and Tubes: Endotracheal tube 7.6 cm above the elizabeth. Right internal jugular catheter in place in the superior vena cava. Enteric tube in the stomach. Dual-chamber pacemaker in place with a biventricular lead. Pulse generator over the left chest. Lungs: Airspace disease right lower lobe with pleural effusion. Pleura: No effusion. No pneumothorax. Cardiomediastinal contours: Unremarkable Bones: No acute osseous abnormality. IMPRESSION: 1. Endotracheal tube has been repositioned now 7.6 cm above the elizabeth. HS:Y ATED BY: KARIN ABRAMS Jr., DO DICTATED DATE/TIME: 08/08/241921 SIGNED BY: KARIN ABRAMS Jr., SIGNED DATE/TIME: 08/08/241921 CC: [address] [address] Ph: [phone] DIAGNOSTIC IMAGING Diagnostic Imaging Report : [id number] Signed PATIENT: SUSHMA THAYER ACCT: [id number] UNIT: [id number] : 1960 LOC: ER ROOM / BED: / AGE / SEX: 64 / M ADM STATUS: REG ER SERVICE 17 ORDERING PHYSICIAN: CHERI STEVENSON DO PROCEDURE(s): CXR1 - CHEST XRAY 1 VIEW REASON: ET TUBE NG TUBE PLACEMENT ORDER NUMBER(s): [id number], ACCESSION NUMBER(s): [id number] CHEST RADIOGRAPH Indication: ET TUBE NG TUBE PLACEMENT Technique: Single frontal view of the chest was obtained Comparison: XY CHEST PORTABLE on DOS: 07/30/24, XY CHEST PORTABLE on DOS: , XY CHEST XRAY 1 VIEW on DOS: 07/18/24 FINDINGS: Lines and Tubes: Endotracheal tube 9.3 cm above the elizabeth. Dual-lumen catheter in place from the right internal jugular vein with the tip at the cavoatrial junction. Dual-chamber biventricular pacemaker in place with pulse generator over the left chest. There is a tube superimposed over the right lower lung field correlate clinically. Enteric tube at the gastroesophageal junction recommend advancement 3-4 inches. Lungs: Right lower lobe infiltrate and effusion worse than 07/30/2024 Pleura: No effusion. No pneumothorax. Cardiomediastinal contours: Unremarkable Bones: No acute osseous abnormality. IMPRESSION: 1. Endotracheal tube in place 9.3 cm above the elizabeth. 2. Right internal jugular catheter in place in the superior vena cava 3. Enteric tube at the gastroesophageal junction recommend advancement 3-4 inches. 4. Dual-chamber biventricular pacemaker in place with pulse generator over the left chest, 5. Right lower lobe infiltrate and effusion worse than 07/30/2024 tubing overlying the lower right lung field correlate for possible chest tube placement. HS:Y ATED BY: KARIN ABRAMS Jr., DO DICTATED DATE/TIME: 08/08/241800 SIGNED BY: KARIN ABRAMS Jr., SIGNED DATE/TIME: 08/08/241800 CC: Time of 1ST Reevaluation: 19:30 Reevaluation 1ST: Improved Time of 2ND Reevaluation: 20:08 (At this time I spoke with the sister of the patient who lives in [place] who has [id number] and she also gives us c onsent to do anything necessary including blood transfusion or procedures to resuscitate and to save his life. Her name is Didi newberrywilbur. Nurse JUDIE was a witness. ) Reevaluation 2ND: Improved Patient Education/Counseling: Pt Unresponsive Family Education/Counseling: No Family Present Comments I spoke with the brother on the phone Mr. Morrell who consented for us to do all things possible including blood transfusion or any procedures needed to keep him alive. Nurse Tinajero was a witnessed on the phone call. Sepsis protocol was initiated. Given the patient dialysis history fluid resuscitation was conservative. Suspected possible aspiration pneumonia doing CPR, Zosyn was given as a choice of antibiotic. Patient was evaluated immediately upon arrival to the ED. CPR was already in process. IV access was established. ACLS protocol was follow up. Please refer to the code sheet For more details. No family members available at bedside. Bag-valve mask was initiated then patient was intubated with a GlideScope. Patient had a shockable rhythm VFib. He was shocked once and ROSC was obtained. Patient was given amiodarone 300 mg bolus and initially started on a drip temporarily. The rhythm strip on the monitor started to show pacing by his own pacemaker defibrillator. We stopped the amiodarone because he was becoming hypotensive. Epinephrine drip was initiated. Versed was used for sedation. Earlier during his resuscitation there was no captured pacemaker/defibrillator activity seen on the monitor. Shaw catheter was placed. I do not know if the patient makes urine or not. He had a complete session of dialysis earlier prior to collapsing in the transportation car. The forklift driver attest that there was no head injury or fall or trauma. NG tube was placed. X-ray confirmed positioning of the ET tube and NG tube. Patient had two functional IV access. Central line was done at the right femoral central line. Complications none. Per the bleeding minimal. Successful from 1st attempt. Sterile techniques were used throughout the procedure. I ordered for blood transfusion in the this patient for possible anemia given patient's history that was obtained from the computer where he required blood transfusion recently for a GI bleed. However patient did not require blood transfusion given his hemoglobin level on our initial evaluation here in the ED. Patient is full code. Family were contacted by phone who consented for procedures. Patient will benefit from pacemaker/defibrillator interrogation to see if it was functional well. Patient was admitted to ICU under the medicine team. Departure 1 Departure Time of Disposition: 17:38 Impression: Primary Impression: Cardiopulmonary arrest Additional Impressions: Ventricular fibrillation Pneumonia Disposition: ADMITTED INPATIENT Admit to: ICU Condition: Critical Discharged With: Self Critical Care Note Critical Care Time?: Yes Heart Score Heart Score: Heart Score Response (Comments) Value History Highly Suspicious 2 EKG Repolarization Disturb 1 Age >65 2 Risk Factors >3 or Hx ASHD 2 Troponin Normal limit 0 Total 7 I personally scribed for CHERI STEVENSON DO ([email or web address]) on 08/08/24 at 17:30. Electronically submitted by Disha Galindo ([email or web address]). I personally scribed for CHERI STEVENSON DO ([email or web address]) on 08/08/24 at 17:46. Electronically submitted by Disha Galindo ([email or web address]). I personally scribed for CHERI STEVENSON DO ([email or web address]) on 08/08/24 at 20:50. Electronically submitted by Disha Galindo ([email or web address]). I personally scribed for CHERI STEVENSON DO ([email or web address]) on 08/08/24 at 22:24. Electronically submitted by Disha Galindo ([email or web address]). I personally scribed for CHERI STEVENSON DO ([email or web address]) on 08/08/24 at 22:30. Electronically submitted by Disha Galindo ([email or web address]). CHERI STEVENSON DO Aug 08, 2024 17:30
[2024-08-08] MEDS: AMIODARONE 360mg/200mL PREMIX 200 ML IV ONE (17:36)
[2024-08-08] MEDS: MIDAZOLAM DRIP 50 mg/50mL 50 ML IV SCH (17:45)
--- NOTE | 2024-08-08 18:04 | DVH ---
CHEST RADIOGRAPH Indication: ET TUBE NG TUBE PLACEMENT Technique: Single frontal view of the chest was obtained Comparison: XY CHEST PORTABLE on DOS: 07/30/24, XY CHEST PORTABLE on DOS: 07/30/24, XY CHEST XRAY 1 VIE W on DOS: 07/18/24 FINDINGS: Lines and Tubes: Endotracheal tube 9.3 cm above the elizabeth. Dual-lumen catheter in place from the rig ht internal jugular vein with the tip at the cavoatrial junction. Dual-chamber biventricular pacemake r in place with pulse generator over the left chest. There is a tube superimposed over the right lowe r lung field correlate clinically. Enteric tube at the gastroesophageal junction recommend advancemen t 3-4 inches. Lungs: Right lower lobe infiltrate and effusion worse than 07/30/2024 Pleura: No effusion. No pneumothorax. Cardiomediastinal contours: Unremarkable Bones: No acute osseous abnormality. IMPRESSION: 1. Endotracheal tube in place 9.3 cm above the elizabeth. 2. Right internal jugular catheter in place in the superior vena cava 3. Enteric tube at the gastroesophageal junction recommend advancement 3-4 inches. 4. Dual-chamber biventricular pacemaker in place with pulse generator over the left chest, 5. Right lower lobe infiltrate and effusion worse than 07/30/2024 tubing overlying the lower right romario ng field correlate for possible chest tube placement. HS:Y
[2024-08-08] MEDS: EPINEPHrine HCL 250 ML IV SCH (18:13)
[2024-08-08] MEDS: EPINEPHrine HCL 250 ML IV ONE (18:13)
[2024-08-08 18:18] LABS: Basophils # (auto) 0 10 ^3/uL (0-0.2); Basophils % (auto) 1.4 % (0.0-2.0); Eosinophils # (auto) 0.2 10 ^3/uL (0-0.8); Eosinophils % (auto) 6.8 % (0.0-7.0); Hematocrit 34.6 % (41.0-53.0); Hemoglobin 11.1 g/dL (13.5-17.5); Lymphocytes # (auto) 0.6 10 ^3/uL (0.4-5.4); Mean Corpuscular Hemoglobin 32.6 pg (28.0-32.0); Monocytes # (auto) 0.3 10 ^3/uL (0-1.3); Monocytes % (auto) 9.2 % (0.0-12.0); Neutrophils # (auto) 2.2 10 ^3/uL (1.6-8.6); Neutrophils % (auto) 63.6 % (37.0-80.0); Nucleated Red Blood Cells % 0.3 %; Platelet Count (auto) 139 10^3/uL (140-450); Red Blood Cells 3.39 10^6/uL (4.5-5.90); Red Cell Distribution Width 21.3 % (11.8-14.3); White Blood Cell 3.4 10^3/uL (4.4-10.8)
[2024-08-08 18:23] LABS: Urine Bacteria None Seen /hpf (None Seen)
[2024-08-08 18:29] LABS: Alanine Aminotransferase 13 U/L (7-40); Anion Gap 7 (5-15); Aspartate Aminotransferase 34 U/L (13-40); BUN/Creatinine Ratio 3.8 (10.0-20.0); Magnesium 1.8 mg/dL (1.6-2.6); Potassium 4.4 mmol/L (3.5-5.1)
[2024-08-08 18:30] LABS: Albumin 3.2 g/dL (3.2-4.8); Bilirubin, Total 0.6 mg/dL (0.2-1.0)
[2024-08-08 18:39] LABS: Alkaline Phosphatase 117 U/L (46-116); Blood Urea Nitrogen 9 mg/dL (9-23); Calcium 7.9 mg/dL (8.7-10.4); Carbon Dioxide 32 mmol/L (20-31); Chloride 96 mmol/L (98-107); Glucose 160 mg/dL (74-106); Sodium 135 mmol/L (136-145); Total Protein 5.4 g/dL (5.7-8.2)
[2024-08-08 18:42] LABS: Urine Blood Negative /uL (Negative); Urine Clarity Clear (Clear); Urine Color Light-Yellow (Yellow); Urine Protein, UAD 1+ (Negative); Urine Specific Gravity 1.011 (1.001-1.035); Urine Squamous Epithelial Cell FEW /hpf (<5); Urine Urobilinogen Normal (Negative); Urine WBC 1 /HPF (0-3); Urine pH 7.5 (5.0-9.0)
[2024-08-08 18:44] LABS: Lactic Acid w/Reflex 4.8 mmol/L (0.4-2.0)
[2024-08-08] MEDS ORDERED: MORPHINE SULFATE INJ 2 MG/ml SYRG IV PRN (19:00)
[2024-08-08] MEDS ORDERED: NITROGLYCERIN 0.4 MG SL TAB SL PRN (19:00)
--- NOTE | 2024-08-08 19:24 | DVH ---
CHEST RADIOGRAPH Indication: ET TUBE PLACEMENT AND NG TUBE PLACEMENT Technique: Single frontal view of the chest was obtained Comparison: XY CHEST XRAY 1 VIEW on DOS: 08/08/24, XY CHEST PORTABLE on DOS: 07/30/24, XY CHEST PORTABL E on DOS: 07/30/24 FINDINGS: Lines and Tubes: Endotracheal tube 7.6 cm above the elizabeth. Right internal jugular catheter in place in the superior vena cava. Enteric tube in the stomach. Dual-chamber pacemaker in place with a bivent ricular lead. Pulse generator over the left chest. Lungs: Airspace disease right lower lobe with pleural effusion. Pleura: No effusion. No pneumothorax. Cardiomediastinal contours: Unremarkable Bones: No acute osseous abnormality. IMPRESSION: 1. Endotracheal tube has been repositioned now 7.6 cm above the elizabeth. HS:Y
[2024-08-08 19:29] LABS: INR 1.19 (0.9-1.15); Partial Thromboplastin Time 29.1 SEC (24.5-34.5); Prothrombin Time 12.4 sec (9.3-11.8)
[2024-08-08] MEDS ORDERED: PIPERACILLIN-TAZOB 3.375GM 100 ML IV ONE (19:30)
[2024-08-08 19:45] VITALS: PULSE 60; RESP 20; O2SAT 100
[2024-08-08] MEDS: SODIUM CHLORIDE 0.9% 500 ML IV ONE (20:42)
[2024-08-08] MEDS: cefTRIAXone 1GM/50ML D5W 50 ML IV ONE (20:42)
[2024-08-08 20:57] VITALS: BP 130/60; PULSE 60; RESP 20; O2SAT 100
--- NOTE | 2024-08-08 21:09 | RESUS ---
CODE BLUE ASSESSSMENT History of Events History of Events: 4y M who presents to the ED via EMS for chief complaint of cardiac arrest: - pt is resident at [facility] and was recently at dialysis app and was being transported back to facility - pt became unresponsive in transport vehicle and was brought to the ED, - transport staff was performing CPR upon EMS arrival and ED staff took over CPR upon ED arrival - transport staff unable to provide any information Initial Information Date: Aug 08, 2024 Time: 17:00 Location of Arrest: ER Arrest Witnessed: No CPR started by whom: Hospital Staff Pre-Hospital Care: BLS Type of arrest: Cardiac, Respiratory Spontaneous Respirations: No Pulse Present: No Monitoring: ECG, Pulse Oximetry Crash Cart Opened and Supplies: Yes Airway Ventilation Breathing at Onset: Assisted O2 Sat by Pulse Oximetry: 0 Oxygen Delivery Method: Ambu-Bag Oxygen 100% ambu bag Time of first Assisted Ventila: 17:01 Artificial Ventilation: Bag/Mask Intubation Size: 7.5 cuffed Intubated by: DR Driscoll Intubation Attempts: 1 Intubated orally: Yes Intubated Nasaly: No Tube secured at: 24 Cricoid pressure done: No CO2 indicator used: Yes Confirmation: Auscultation, Exhaled CO2 Suctioning (Oral/Tracheal): No Circulation Circulation : Time: 17:06 Pulse Rate (adult): 0 Blood Pressure Systolic: 0 Blood Pressure Diastolic: 0 Temperature (Fahrenheit): 95.5 Procedure - Intraosseous Time of intraosseous: 17:05 Site of Intraosseous: Tibia mell-medial Intraosseous inserted by: Soumya GRULLON Number of attempts for Intraos: 1 Medications & Response Medications and Responses #1: Medication Time: 17:06 ADULT Medications Given ADULT: Epinephrine 1 mg Route of Administration: IO Heart Rate: 0 EKG Rhythm: Asystole Blood Pressure Systolic: 0 Blood Pressure Diastolic: 0 Respiratory Rate: 0 O2 Sat by Pulse Oximetry: 0 Medications and Responses #2: Medication Time: 17:08 ADULT Medications Given ADULT: Sodium Bacarbinate 50 meq Route of Administration: IO Heart Rate: 160 EKG Rhythm: Torsades de Pointes Blood Pressure Systolic: 0 Blood Pressure Diastolic: 0 Respiratory Rate: 0 O2 Sat by Pulse Oximetry: 0 Medications and Responses #3: Medication Time: 17:09 ADULT Medications Given ADULT: Epinephrine 1 mg Route of Administration: IO Heart Rate: 115 EKG Rhythm: Atrial Fibrillation Blood Pressure Systolic: 220 Blood Pressure Diastolic: 103 Respiratory Rate: 0 O2 Sat by Pulse Oximetry: 0 Defib. Joules: 120 Pacing Pacer Pads Applied and Pacing: No Nurses Notes Gunnar Coma Scale Eye Opening: None (1) Gunnar Coma Scale Verbal: None (1) Gunnar Coma Scale Motor: None (1) EKG Rhythm: Atrial Fibrillation Time Code Ended Time Code Ended: 17:11 Post Arrest Status: Unconscious, Ventilated Outcome of code: Successful Family notified: No Attending called: No Code Team Present: Cristian Cole RN, Soumya RN, Francisco ERT, Clinton MRI TECHNICIAN, Stewart MRI TECHNICIAN, José Manuel CAMPBELL, Nirmal Rodriguez RN ROSC Time of ROSC: 17:11 Kamini Rodriguez Aug 08, 2024 21:08
[2024-08-08 21:16] LABS: Base Excess 4.8 mmol/L (-2.0-3.0)
[2024-08-08 22:25] VITALS: BP 155/51; PULSE 60; RESP 20; O2SAT 99
[2024-08-08] MEDS: AZITHROMYCIN 500MG/ 250ML 250 ML IV ONE (22:27)
[2024-08-08 23:13] VITALS: BP 155/37; PULSE 60; RESP 20; TEMP 99.9; O2SAT 100
--- NOTE | 2024-08-08 23:14 | DVH ---
EXAM: CT HEAD WITHOUT CONTRAST INDICATION: AMS TECHNIQUE: CT of the head without intravenous contrast. Radiation Dose : 1. Head: CT Dose: CTDI volume is 59.60 mGy. Dose-length product is 1173.13 mGy*cm The dose indicators for CT are the volume Computed Tomography (CT) Dose Index (CTDIvol) and the Dose Length Product (DLP), and are measured in units of mGy and mGy-cm, respectively. These indicators are not patient dose, but values generated from the CT scanner acquisition factors. The report includes radiation exposure data for exposures received during this examination. COMPARISON: CT HEAD WITHOUT CONTRAST on DOS: 06/29/24, CT HEAD WITHOUT CONTRAST on DOS: 04/20/24 FINDINGS: There is no evidence of acute intracranial hemorrhage, extra-axial collection, mass effect, midline s hift, herniation or hydrocephalus. The ventricles, sulci and cisterns are age appropriate. The mckinney-white differentiation is intact. Minimal right maxillary mucosal sinus disease noted. The remaining visualized paranasal sinuses and m astoid air cells are clear. The surrounding soft tissues and osseous structures are unremarkable. Atherosclerotic vascular calcifications of the vertebrobasilar and internal carotid vasculature. IMPRESSION: 1. No acute intracranial abnormality. Radiation optimization: All CT scans at this facility use at least one of these dose optimization maria esther hniques: automated exposure control mA and/or kV adjustment per patient size (includes targeted exam s where dose is matched to clinical indication) or iterative reconstruction.
[2024-08-09] VITALS (104 sets, daily range): BP systolic 82–177; BP diastolic 22–75; PULSE 58–82; RESP 0–21; TEMP 97.2–100.4; O2SAT 98–100
--- NOTE | 2024-08-09 00:49 | DVHHP2 ---
History of Present Illness Reason for Visit: Cardiopulmonary arrest History of Present Illness 64-year-old male presents in cardiopulmonary arrest. Patient completed his dialysis treatment was being transported back to [facility] when he became unresponsive in route and CPR was initiated by EMS. Patient was emergently intubated on arrival to emergency department. No family at the bedside to provide further history. Patient is currently in critical but stable condition. Past Medical History CAD atrial fibrillation, end-stage renal disease, hypertension, CHF Past Surgical History Dialysis access, cardiac stents, pacemaker Family History Noncontributory Smoke: No ALCOHOL: none Drugs: None Lives: Retirement Review of Systems Review of Systems Review of systems can not be completed patient is sedated and intubated. Allergies: Coded Allergies: NO KNOWN ALLERGIES (Unverified , 04/07/24) Medications Current Medications Medications Dose Ordered Sig/Colleen Route Start Time Stop Time Status Last Admin Dose Admin Midazolam HCl 50 ml @ 1 mls/hr Q24H IV 08/08/24 17:45 08/09/24 00:16 2 MLS/HR Epinephrine HCl 250 ml @ 7.5 mls/hr Q24H IV 08/08/24 18:15 08/08/24 18:13 7.5 MLS/HR Ceftriaxone Sodium 50 ml @ 100 mls/hr DAILY@09 IV 08/09/24 09:00 Azithromycin 250 ml @ 125 mls/hr DAILY IV 08/09/24 10:00 Ondansetron HCl 4 mg Q4HP PRN IV 08/08/24 19:00 Acetaminophen 650 mg Q6HP PRN PO 08/08/24 19:00 Nitroglycerin 0.4 mg Q5MINP PRN SL 08/08/24 19:00 Morphine Sulfate 2 mg Q30M PRN IV 08/08/24 19:00 Furosemide 40 mg DAILY IV 08/09/24 10:00 Digoxin 125 mcg DAILY IV 08/09/24 10:00 Exam Vital Signs Vital Signs Date Time Temp Pulse Resp B/P (MAP) Pulse Ox O2 Delivery O2 Flow Rate FiO2 08/09/24 00:20 68 20 166/62 (96) 99 70 08/09/24 00:00 98.9 98.9 08/08/24 21:08 Ambu-Bag 08/08/24 19:45 20 Exam Gen: 64-year-old male in in no apparent distress Skin: Warm, dry, normal color and texture, no rash. HEENT: Normocephalic atraumatic, mucous membranes moist and pink. Neck: Cervical and supraclavicular nodes normal without enlargement, trachea is midline, thyroid gland is normal without masses. Pulmonary: Intubated, diminished breath sounds bilaterally Cardiac: Regular rate and rhythm. No murmur Abdomen: Soft, nontender, nondistended, bowel sounds present all 4 quadrants, no guarding, no rigidity, no organomegaly. Extremities: No cyanosis, clubbing, no edema Neuro: Sedated pupils equal round and reactive Labs/Xrays ORDERING PHYSICIAN: SHADE GUTIERREZ DNP PROCEDURE(s): ECIDC - ECHO 2D MODE CARDIAC DOP REASON: acute cardiac arrest ORDER NUMBER(s): [id number], ACCESSION NUMBER(s): [id number] APPROVED REPORT EXAM: LIMITED Two-dimensional and M-mode echocardiogram. INDICATION ACUTE CARDIAC ARREST RISK FACTORS Height: 70, Weight: 170 DIMENSIONS LVDd 4.3 (3.8-5.7cm) LA (2D) (1.9-4.0cm) Aortic Root (2.0-3.7cm) LVDs 3.9 (2.5-4.0cm) LA (MM) (1.9-4.0cm) Aortic Cusp Exc (1.5- 2.0cm) EF (%) 20.0 (55-70%) Rt. Atrium (1.9-4.0cm) Asc. Aorta cm IVSd 2.1 (0.7-1.1cm) RV (D) (1.8-2.4cm) PWd 1.7 (0.7-1.1cm) Mitral Valve Mitral Mitral Stenosis E/A ratio 0.0 2D MVA cm2 Other Information Technically limited study due to limited study for function. Conclusion limited study lvef 20% by visual estimate postop septum septum flattening noted RV enlarged with dysfunction biatrial enlargement valves not assessed SIGNED BY: ROSA M KELLY MD SIGNED DATE/TIME: 06/29/24 0809 CC: ORDERING PHYSICIAN: BELTRAN FLORIAN AGACNP PROCEDURE(s): HWOCT - HEAD WITHOUT CONTRAST REASON: AMS ORDER NUMBER(s): [id number], ACCESSION NUMBER(s): [id number] EXAM: CT HEAD WITHOUT CONTRAST INDICATION: AMS TECHNIQUE: CT of the head without intravenous contrast. Radiation Dose : 1. Head: CT Dose: CTDI volume is 59.60 mGy. Dose-length product is 1173.13 mGy*cm The dose indicators for CT are the volume Computed Tomography (CT) Dose Index (CTDIvol) and the Dose Length Product (DLP), and are measured in units of mGy and mGy-cm, respectively. These indicators are not patient dose, but values generated from the CT scanner acquisition factors. The report includes radiation exposure data for exposures received during this examination. COMPARISON: CT HEAD WITHOUT CONTRAST on DOS: 06/29/24, CT HEAD WITHOUT CONTRAST on DOS: 04/20/24 FINDINGS: There is no evidence of acute intracranial hemorrhage, extra-axial collection, mass effect, midline shift, herniation or hydrocephalus. The ventricles, sulci and cisterns are age appropriate. The mckinney-white differentiation is intact. Minimal right maxillary mucosal sinus disease noted. The remaining visualized paranasal sinuses and mastoid air cells are clear. The surrounding soft tissues and osseous structures are unremarkable. Atherosclerotic vascular calcifications of the vertebrobasilar and internal carotid vasculature. IMPRESSION: 1. No acute intracranial abnormality. Radiation optimization: All CT scans at this facility use at least one of these dose optimization techniques: automated exposure control mA and/or kV adjustment per patient size (includes targeted exams where dose is matched to clinical indication) or iterative reconstruction. ATED BY: DARÍO TORRES MD ORDERING PHYSICIAN: CHERI STEVENSON DO PROCEDURE(s): CXR1 - CHEST XRAY 1 VIEW REASON: ET TUBE PLACEMENT AND NG TUBE PLACEMENT ORDER NUMBER(s): [id number], ACCESSION NUMBER(s): [id number] CHEST RADIOGRAPH Indication: ET TUBE PLACEMENT AND NG TUBE PLACEMENT Technique: Single frontal view of the chest was obtained Comparison: XY CHEST XRAY 1 VIEW on DOS: 08/08/24, XY CHEST PORTABLE on DOS: 07/30/24, XY CHEST PORTABLE on DOS: 07/30/24 FINDINGS: Lines and Tubes: Endotracheal tube 7.6 cm above the elizabeth. Right internal jugular catheter in place in the superior vena cava. Enteric tube in the stomach. Dual-chamber pacemaker in place with a biventricular lead. Pulse generator over the left chest. Lungs: Airspace disease right lower lobe with pleural effusion. Pleura: No effusion. No pneumothorax. Cardiomediastinal contours: Unremarkable Bones: No acute osseous abnormality. IMPRESSION: 1. Endotracheal tube has been repositioned now 7.6 cm above the elizabeth. HS:Y ATED BY: KARIN ABRAMS Jr. DO Labs Test 08/08/24 21:10 08/08/24 20:56 08/08/24 18:09 08/08/24 17:53 Range/Units Blood Gas Specimen Type Arterial Blood Gas Sample Site Left radial Blood Gas Patient Temperature 37.0 Arterial Blood Date Drawn [id number] Arterial Blood pH 7.451 H 7.350-7.450 Arterial Blood Partial Pressure CO2 42.9 35.0-48.0 mmHg Arterial Blood Partial Pressure O2 378.6 *H 83.0-108.0 mmHg Arterial Blood HCO3 29.2 H 21.0-28.0 mmol/L Arterial Blood Oxygen Saturation 99.7 H 94.0-98.0 % Arterial Blood Base Excess 4.8 H -2.0-3.0 mmol/L Arterial Blood Oxyhemoglobin 98.7 H 94.0-98.0 % Arterial Blood Carboxyhemoglobin 0.4 L 0.5-1.5 % Arterial Blood Methemoglobin 0.6 0.0-1.5 % Chilo Test Modified Blood Gas Total Hemoglobin 10.10 L 13.5-17.5 g/dL Blood Gas Set Respiration Rate 20.0 Blood Gas Modality Vent - ac FiO2 % 100.0 Blood Gas Tidal Volume 550.0 Blood Gas PEEP or CPAP 5.0 Blood Gas Critical Value Read Back Yes Blood Gas Notified Whom Md. raheem stevenson Blood Gas Notified Time [id number] Blood Gas Notified By Rt olimpia centeno Lactic Acid Level 3.4 *H 0.4-2.0 mmol/L Troponin I High Sensitivity 50 </=54 ng/L Urine Color Light-yellow Yellow Urine Clarity Clear Clear Urine pH 7.5 5.0-9.0 Urine Specific Cross 1.011 1.001-1.035 Urine Protein 1+ H Negative Urine Ketones Negative Negative Urine Blood Negative Negative /uL Urine Nitrite Negative Negative Urine Bilirubin Negative Negative Urine Urobilinogen Normal Negative mg/dL Urine Leukocyte Esterase Negative Negative /uL Urine RBC 1 0 - 3 /hpf Urine Microscopic WBC 1 0-3 /HPF Urine Squamous Epithelial Cells Few <5 /hpf Urine Bacteria None seen None Seen /hpf Urine Glucose 3+ H Normal mg/dL White Blood Count 3.4 #L 4.4-10.8 10^3/uL Red Blood Count 3.39 L 4.5-5.90 10^6/uL Hemoglobin 11.1 L 13.5-17.5 g/dL Hematocrit 34.6 #L 41.0-53.0 % Mean Corpuscular Volume 102.0 #H 80.0-100.0 fL Mean Corpuscular Hemoglobin 32.6 H 28.0-32.0 pg Mean Corpuscular Hemoglobin Concent 32.0 32.0-36.0 g/dL Red Cell Distribution Width 21.3 H 11.8-14.3 % Platelet Count 139 #L 140-450 10^3/uL Mean Platelet Volume 7.4 6.9-10.8 fL Neutrophils (%) (Auto) 63.6 37.0-80.0 % Lymphocytes (%) (Auto) 19.0 10.0-50.0 % Monocytes (%) (Auto) 9.2 0.0-12.0 % Eosinophils (%) (Auto) 6.8 0.0-7.0 % Basophils (%) (Auto) 1.4 0.0-2.0 % Neutrophils # (Auto) 2.2 1.6-8.6 10 ^3/uL Lymphocytes # (Auto) 0.6 0.4-5.4 10 ^3/uL Monocytes # (Auto) 0.3 0-1.3 10 ^3/uL Eosinophils # (Auto) 0.2 0-0.8 10 ^3/uL Basophils # (Auto) 0 0-0.2 10 ^3/uL Nucleated Red Blood Cells 0.3 % Prothrombin Time 12.4 H 9.3-11.8 sec Prothrombin Time INR 1.19 H 0.9-1.15 Activated Partial Thromboplast Time 29.1 24.5-34.5 SEC Sodium Level 135 #L 136-145 mmol/L Potassium Level 4.4 3.5-5.1 mmol/L Chloride Level 96 L 98-107 mmol/L Carbon Dioxide Level 32 H 20-31 mmol/L Anion Gap 7 5-15 Blood Urea Nitrogen 9 9-23 mg/dL Creatinine 2.39 #H 0.700-1.30 mg/dL Glomerular Filtration Rate Calc 29 >90 mL/min BUN/Creatinine Ratio 3.8 L 10.0-20.0 Serum Glucose 160 H 74-106 mg/dL Calcium Level 7.9 L 8.7-10.4 mg/dL Magnesium Level 1.8 1.6-2.6 mg/dL Total Bilirubin 0.6 0.2-1.0 mg/dL Aspartate Amino Transferase (AST) 34 13-40 U/L Alanine Aminotransferase (ALT) 13 7-40 U/L Alkaline Phosphatase 117 H 46-116 U/L Total Protein 5.4 L 5.7-8.2 g/dL Albumin 3.2 3.2-4.8 g/dL Assessment/Plan Assessment/Plan Assessment Cardiopulmonary arrest End-stage renal disease, dialysis dependent Anemia of chronic disease Questionable pneumonia Plan Admit the patient to ICU to the hospitalist Pulmonary consultation Cardiology consult Nephrology consult Rocephin/azithromycin Continue treatment per orders Total critical care time excluding procedures performed this 55 minutes. Plan discussed with: Other My Orders Orders - BELTRAN FLORIAN Procedure Category Date Status Time Head Without Contrast CT 08/08/24 Resulted 18:52 Ceftriaxone 1gm/50ml PHA 08/09/24 In Process D5w (Rocephin) 09:00 Azithromycin 500mg/ PHA 08/09/24 In Process 250ml (Zithromax 50 10:00 * Cardiology Consult CONS 08/08/24 Transmitted 18:57 *Consult CONS 08/08/24 Transmitted / 18:57 Admit ADMIT 08/08/24 Transmitted 18:57 Ondansetron Hcl PHA 08/08/24 In Process (Zofran) 19:00 Complete Blood Count LAB 08/09/24 Logged 04:00 Comprehensive LAB 08/09/24 Logged Metabolic Panel 04:00 Condition: Unstable LETICIA 08/08/24 In Process 18:57 Acetaminophen Tablet PHA 08/08/24 In Process (Tylenol Tablet) 19:00 Bedrest With Bathroom [facility] 08/08/24 In Process Privileg 18:57 Nitroglycerin PHA 08/08/24 In Process Sublingual (Ntrostat 19:00 Morphine Sulfate PHA 08/08/24 In Process Injection 19:00 Stat Ekg For Chest [facility] 08/08/24 In Process Pain 18:57 Notify Of Changes [facility] 08/08/24 In Process From Base 18:57 Rubber Boots And Shoes Repairer For [facility] 08/08/24 In Process 24 Hours 18:57 Emergency Dysrhythmia [facility] 08/08/24 In Process Protocol 18:57 Rhythm Strips Once [facility] 08/08/24 In Process Every Shift 18:57 Oxygen By Nasal RT 08/08/24 Transmitted Cannula 18:57 Furosemide Injection PHA 08/09/24 In Process (Lasix Injection) 10:00 Digoxin Injection PHA 08/09/24 In Process (Lanoxin Injection) 10:00 *Dr. [facility] CONS 08/08/24 Transmitted -[place] 19:04 Date of Service: Aug 08, 2024 Billing Provider: BELTRAN FLORIAN Common Visit Codes: [id number] CARE 30-74 MIN BELTRAN FLORIAN Aug 09, 2024 00:49
[2024-08-09] MEDS: ACETAMINOPHEN 325 MG TAB PO PRN (00:52)
[2024-08-09 05:48] LABS: Basophils # (auto) 0 10 ^3/uL (0-0.2); Basophils % (auto) 0.8 % (0.0-2.0); Eosinophils # (auto) 0.1 10 ^3/uL (0-0.8); Eosinophils % (auto) 2.7 % (0.0-7.0); Hematocrit 27.2 % (41.0-53.0); Hemoglobin 9.1 g/dL (13.5-17.5); Lymphocytes # (auto) 0.3 10 ^3/uL (0.4-5.4); Lymphocytes % (auto) 6.4 % (10.0-50.0); Mean Corpuscular Hemoglobin 32.8 pg (28.0-32.0); Mean Corpuscular Hgb Conc. 33.5 g/dL (32.0-36.0); Mean Corpuscular Volume 97.8 fL (80.0-100.0); Monocytes # (auto) 0.4 10 ^3/uL (0-1.3); Neutrophils # (auto) 3.2 10 ^3/uL (1.6-8.6); Neutrophils % (auto) 81.1 % (37.0-80.0); Nucleated Red Blood Cells % 0.2 %; Platelet Count (auto) 112 10^3/uL (140-450); Red Blood Cells 2.78 10^6/uL (4.5-5.90)
[2024-08-09 06:00] LABS: Alkaline Phosphatase 100 U/L (46-116); Anion Gap 10 (5-15); Aspartate Aminotransferase 16 U/L (13-40); BUN/Creatinine Ratio 5.2 (10.0-20.0); Bilirubin, Total 0.6 mg/dL (0.2-1.0); Blood Urea Nitrogen 15 mg/dL (9-23); Carbon Dioxide 30 mmol/L (20-31); Potassium 3.8 mmol/L (3.5-5.1)
[2024-08-09 06:21] LABS: Red Cell Distribution Width 20.5 % (11.8-14.3)
[2024-08-09 06:43] LABS: Alanine Aminotransferase < 9 U/L (7-40); Albumin 2.8 g/dL (3.2-4.8); Calcium 8.3 mg/dL (8.7-10.4); Chloride 92 mmol/L (98-107); Glucose 144 mg/dL (74-106); Sodium 132 mmol/L (136-145); Total Protein 5.1 g/dL (5.7-8.2)
[2024-08-09 07:53] LABS: Base Excess 6.9 mmol/L (-2.0-3.0)
[2024-08-09 08:56] LABS: Platelet Estimate Decreased
[2024-08-09 08:57] LABS: Anisocytosis Slight; Stomatocytes Moderate
[2024-08-09] MEDS: DIGOXIN (250MCG/ML) 2 ML AMPULE IV SCH (09:06)
[2024-08-09] MEDS: cefTRIAXone 1GM/50ML D5W 50 ML IV SCH (09:19)
[2024-08-09] MEDS: FUROSEMIDE 40 MG/4 ML VIAL IV SCH (09:19)
[2024-08-09] MEDS: AZITHROMYCIN 500MG/ 250ML 250 ML IV SCH (10:26)
[2024-08-09] MEDS ORDERED: AMIODARONE HCL (50 MG/ ML) 3 ML VIAL IV ONE (11:22)
--- NOTE | 2024-08-09 12:00 | DVHINCON2 ---
Date of service: Aug 09, [address] Mina Driscoll Reason for Consultation Dialysis History of Present Illness 64 Y/O M with history of ESRD on HD, HTN, Atrial fibrillation, CAD s/p stent, s/p pacemaker, and CHF presented s/p cardiac arrest. Patient is from [facility] and after completing dialysis was being transported back to the facility, but then became unresponsive in transport vehicle, CPR was started and ER staff took over. He was intubated in the ER. Patients dialysis days at [facility] are TTS. HE completed dialysis Saturday08/08/24. In ER patient is febrile. CXR shows Rt lower lobe infiltrate with effusion. labs show K: 3.8 mmol/l, Na: 132 , lact: 3.4, alb: 2.8 g/dl. WBC: 4.0, Hb: 9.1 g/dl, and Plt: 112. Patient is started on IV antibiotics. Nephrology consulted for maintenance of dialysis Past Medical History ESRDHTN, Atrial fibrillation, CAD, CHF Past Surgical History coronary stent placement Pacemaker placement AVF creation Tunneled CVC placement Allergies: Coded Allergies: NO KNOWN ALLERGIES (Unverified , 04/07/24) Home Meds Active Scripts Famotidine (PEPCID TABLET) 20 Mg Tb, 1 TAB PO BID for 30 Days, #60 TAB 5 [facility]24 Sacubitril-Valsartan (Entresto 24-26 mg) 1 Tab Tab, 1 TAB PO BID for 30 Days, #60 TAB [facility] 05/21/24 Sevelamer Carbonate (Renvela) 800 Mg Tab, 1 TAB PO TID for 30 Days, #90 TAB 3 [facility]ills [facility] 05/21/24 Carvedilol (Carvedilol) 6.25 Mg Tab, 1 TAB PO BID for 30 Days, #60 TAB 1 [facility]ill [facility] 05/21/24 Furosemide (Lasix) 20 Mg Tb, 40 MG PO DAILY for 30 Days, #30 TAB [facility] 05/21/24 Doxycycline (Monohydrate) (Doxycycline) 100 Mg Cap, 100 MG PO BID for 5 Days, #10 CAP [facility] 05/21/24 Amiodarone HCl (Amiodarone HCl) 200 Mg Tab, 400 MG PO DAILY for 30 Days, #60 TAB Prov:MONIQUE MACDONALD [employer] 04/29/24 Digoxin (Lanoxin) 125 Mcg Tab, 0.125 MG PO EOD for 30 Days, #30 TAB Prov:MONIQUE MACDONALD [employer] 04/29/24 Reported Medications Apixaban Base (ELIQUIS) 2.5 Mg Tab, 2.5 MG PO BID for 60 Days, #60 04/09/24 Dapagliflozin Propanediol (Farxiga) 10 Mg Tab, 1 TAB PO DAILY for 30 Days, #30 04/09/24 Aripiprazole (Aripiprazole) 5 Mg Tab, 1 TAB PO DAILY for 30 Days, #30 04/09/24 Current Medications Current Medications Medications (Trade) Dose Ordered Sig/Colleen Route PRN Reason Start Time Stop Time Status Last Admin Midazolam HCl 50 ml @ 1 mls/hr Q24H IV 08/08/24 17:45 08/09/24 00:16 Epinephrine HCl 250 ml @ 7.5 mls/hr Q24H IV 08/08/24 18:15 08/09/24 06:23 Ceftriaxone Sodium 50 ml @ 100 mls/hr DAILY@09 IV 08/09/24 09:00 08/09/24 09:19 Azithromycin 250 ml @ 125 mls/hr DAILY IV 08/09/24 10:00 08/09/24 10:26 Ondansetron HCl (Zofran) 4 mg Q4HP PRN IV NAUSEA / VOMITING 08/08/24 19:00 Acetaminophen (Tylenol Tablet) 650 mg Q6HP PRN PO PAIN SCALE 1-3 OR TEMP>100.4 08/08/24 19:00 Nitroglycerin (Ntrostat Sublingual) 0.4 mg Q5MINP PRN SL FOR CHEST PAIN 08/08/24 19:00 Morphine Sulfate 2 mg Q30M PRN IV FOR CHEST PAIN 08/08/24 19:00 Furosemide (Lasix Injection) 40 mg DAILY IV 08/09/24 10:00 08/09/24 09:19 Digoxin (Lanoxin Injection) 125 mcg DAILY IV 08/09/24 10:00 Pantoprazole Sodium (Protonix) 40 mg DAILY IV 08/10/24 10:00 Fentanyl Citrate 250 ml @ 2.5 mls/hr Q24H IV 08/09/24 12:45 Family History: Cardiomegaly G8 FATHER FH: CHF (congestive heart failure) G8 MOTHER Hypertension G8 MOTHER G8 FATHER Review of Systems unable to obtain due to intubation H&P Exam Vital Signs/I&O Vital Sign Date Time Temp Pulse Resp B/P (MAP) Pulse Ox O2 Delivery O2 Flow Rate FiO2 08/09/24 12:00 98.4 60 16 104/59 (74) 100 209.1 08/09/24 10:00 40 08/09/24 10:00 Mechanical Ventilator+ 08/08/24 19:45 20 Intake and Output 08/08/24 08/09/24 19:00 07:00 Intake Total 38.46 ml 976.00 ml Output Total 11 ml Balance 38.46 ml 965.00 ml Intake Oral 0 ml IV Total 38.46 ml 976.00 ml Output Urine Total 10 ml Stool Total 1 ml Physical Exam Gen: sedated , and intubated HEENT: NC, AT Lungs: decreased breath sounds Rt lung Cardiac: RRR, no murmur Abd: soft, no tenderness Neuro: sedated Ext: no edema Labs/Diagnostic Data Labs/Diagnostic Data Laboratory Tests Test 08/09/24 07:23 08/09/24 05:09 08/08/24 21:10 08/08/24 20:56 Range/Units Blood Gas Specimen Type Arterial Arterial Blood Gas Sample Site Left radial Left radial Blood Gas Patient Temperature 37.0 37.0 Arterial Blood Date Drawn [id number] Arterial Blood pH 7.583 *H 7.451 H 7.350-7.450 Arterial Blood Partial Pressure CO2 30.8 L 42.9 35.0-48.0 mmHg Arterial Blood Partial Pressure O2 122.6 H 378.6 *H 83.0-108.0 mmHg Arterial Blood HCO3 28.4 H 29.2 H 21.0-28.0 mmol/L Arterial Blood Oxygen Saturation 98.6 H 99.7 H 94.0-98.0 % Arterial Blood Base Excess 6.9 H 4.8 H -2.0-3.0 mmol/L Arterial Blood Oxyhemoglobin 97.4 98.7 H 94.0-98.0 % Arterial Blood Carboxyhemoglobin 0.8 0.4 L 0.5-1.5 % Arterial Blood Methemoglobin 0.4 0.6 0.0-1.5 % Chilo Test Modified Modified Blood Gas Total Hemoglobin 12.50 L 10.10 L 13.5-17.5 g/dL Blood Gas Set Respiration Rate 20.0 20.0 Blood Gas Modality Vent - ac Vent - ac FiO2 % 50.0 100.0 Blood Gas Tidal Volume 550.0 550.0 Blood Gas PEEP or CPAP 5.0 5.0 Blood Gas Critical Value Read Back Yes Yes Blood Gas Notified Whom sommer Li Md. Blood Gas Notified Time [id number] Blood Gas Notified By Import Dispatcher y Rt olimpia crystal White Blood Count 4.0 L 4.4-10.8 10^3/uL Red Blood Count 2.78 L 4.5-5.90 10^6/uL Hemoglobin 9.1 #L 13.5-17.5 g/dL Hematocrit 27.2 #L 41.0-53.0 % Mean Corpuscular Volume 97.8 # 80.0-100.0 fL Mean Corpuscular Hemoglobin 32.8 H 28.0-32.0 pg Mean Corpuscular Hemoglobin Concent 33.5 32.0-36.0 g/dL Red Cell Distribution Width 20.5 H 11.8-14.3 % Platelet Count 112 L 140-450 10^3/uL Mean Platelet Volume 7.3 6.9-10.8 fL Neutrophils (%) (Auto) 81.1 H 37.0-80.0 % Lymphocytes (%) (Auto) 6.4 L 10.0-50.0 % Monocytes (%) (Auto) 9.0 0.0-12.0 % Eosinophils (%) (Auto) 2.7 0.0-7.0 % Basophils (%) (Auto) 0.8 0.0-2.0 % Neutrophils # (Auto) 3.2 1.6-8.6 10 ^3/uL Lymphocytes # (Auto) 0.3 L 0.4-5.4 10 ^3/uL Monocytes # (Auto) 0.4 0-1.3 10 ^3/uL Eosinophils # (Auto) 0.1 0-0.8 10 ^3/uL Basophils # (Auto) 0 0-0.2 10 ^3/uL Nucleated Red Blood Cells 0.2 % Platelet Estimate Decreased Anisocytosis (manual) Slight Stomatocytes Moderate Terrance Cells Few Sodium Level 132 L 136-145 mmol/L Potassium Level 3.8 3.5-5.1 mmol/L Chloride Level 92 L 98-107 mmol/L Carbon Dioxide Level 30 20-31 mmol/L Anion Gap 10 5-15 Blood Urea Nitrogen 15 9-23 mg/dL Creatinine 2.86 H 0.700-1.30 mg/dL Glomerular Filtration Rate Calc 24 >90 mL/min BUN/Creatinine Ratio 5.2 L 10.0-20.0 Serum Glucose 144 H 74-106 mg/dL Calcium Level 8.3 L 8.7-10.4 mg/dL Magnesium Level 1.8 1.6-2.6 mg/dL Total Bilirubin 0.6 0.2-1.0 mg/dL Aspartate Amino Transferase (AST) 16 13-40 U/L Alanine Aminotransferase (ALT) < 9 7-40 U/L Alkaline Phosphatase 100 46-116 U/L Total Protein 5.1 L 5.7-8.2 g/dL Albumin 2.8 L 3.2-4.8 g/dL Lactic Acid Level 3.4 *H 0.4-2.0 mmol/L Troponin I High Sensitivity 50 </=54 ng/L Test 08/08/24 18:55 08/08/24 18:09 08/08/24 17:53 Range/Units Troponin I High Sensitivity 41 42 </=54 ng/L Urine Color Light-yellow Yellow Urine Clarity Clear Clear Urine pH 7.5 5.0-9.0 Urine Specific [place] 1.011 1.001-1.035 Urine Protein 1+ H Negative Urine Ketones Negative Negative Urine Blood Negative Negative /uL Urine Nitrite Negative Negative Urine Bilirubin Negative Negative Urine Urobilinogen Normal Negative mg/dL Urine Leukocyte Esterase Negative Negative /uL Urine RBC 1 0 - 3 /hpf Urine Microscopic WBC 1 0-3 /HPF Urine Squamous Epithelial Cells Few <5 /hpf Urine Bacteria None seen None Seen /hpf Urine Glucose 3+ H Normal mg/dL White Blood Count 3.4 #L 4.4-10.8 10^3/uL Red Blood Count 3.39 L 4.5-5.90 10^6/uL Hemoglobin 11.1 L 13.5-17.5 g/dL Hematocrit 34.6 #L 41.0-53.0 % Mean Corpuscular Volume 102.0 #H 80.0-100.0 fL Mean Corpuscular Hemoglobin 32.6 H 28.0-32.0 pg Mean Corpuscular Hemoglobin Concent 32.0 32.0-36.0 g/dL Red Cell Distribution Width 21.3 H 11.8-14.3 % Platelet Count 139 #L 140-450 10^3/uL Mean Platelet Volume 7.4 6.9-10.8 fL Neutrophils (%) (Auto) 63.6 37.0-80.0 % Lymphocytes (%) (Auto) 19.0 10.0-50.0 % Monocytes (%) (Auto) 9.2 0.0-12.0 % Eosinophils (%) (Auto) 6.8 0.0-7.0 % Basophils (%) (Auto) 1.4 0.0-2.0 % Neutrophils # (Auto) 2.2 1.6-8.6 10 ^3/uL Lymphocytes # (Auto) 0.6 0.4-5.4 10 ^3/uL Monocytes # (Auto) 0.3 0-1.3 10 ^3/uL Eosinophils # (Auto) 0.2 0-0.8 10 ^3/uL Basophils # (Auto) 0 0-0.2 10 ^3/uL Nucleated Red Blood Cells 0.3 % Prothrombin Time 12.4 H 9.3-11.8 sec Prothrombin Time INR 1.19 H 0.9-1.15 Activated Partial Thromboplast Time 29.1 24.5-34.5 SEC Sodium Level 135 #L 136-145 mmol/L Potassium Level 4.4 3.5-5.1 mmol/L Chloride Level 96 L 98-107 mmol/L Carbon Dioxide Level 32 H 20-31 mmol/L Anion Gap 7 5-15 Blood Urea Nitrogen 9 9-23 mg/dL Creatinine 2.39 #H 0.700-1.30 mg/dL Glomerular Filtration Rate Calc 29 >90 mL/min BUN/Creatinine Ratio 3.8 L 10.0-20.0 Serum Glucose 160 H 74-106 mg/dL Lactic Acid Level 4.8 *H 0.4-2.0 mmol/L Calcium Level 7.9 L 8.7-10.4 mg/dL Magnesium Level 1.8 1.6-2.6 mg/dL Total Bilirubin 0.6 0.2-1.0 mg/dL Aspartate Amino Transferase (AST) 34 13-40 U/L Alanine Aminotransferase (ALT) 13 7-40 U/L Alkaline Phosphatase 117 H 46-116 U/L Total Protein 5.4 L 5.7-8.2 g/dL Albumin 3.2 3.2-4.8 g/dL Assessment ESRD on HD s/p cardiac arrest with ROSC Acute hypoxic respiratory failure s/p intubation on mechanical ventilator Sepsis secondary to pneumonia Hyponatremia Lactic acidosis Hypoalbuminemia HTN Atrial fibrillation CAD s/p stent s/p pacemaker chronic diastolic CHF Pancytopenia Plan: last HD was Saturday at [facility] Next HD likely on Saturday HD schedule: TTS Continue IV antibiotics NAZANIN post HD as needed. goal Hb: 10-11 g/dl DC Epinephrine Start Levophed Vasopressors to maintain MA{P > 65 mmHg Pulmonary for vent management Plan discussed with: Other SAVANNAH FAUST MD Aug 09, 2024 12:00
--- NOTE | 2024-08-09 12:08 | DVH ---
INDICATION: Intubated TECHNIQUE: Single frontal view of the chest was obtained COMPARISON: XY CHEST XRAY 1 VIEW on DOS: 08/08/24, XY CHEST XRAY 1 VIEW on DOS: 08/08/24, XY CHEST PORT ABLE on DOS: 07/30/24, XY CHEST PORTABLE on DOS: 07/30/24, XY CHEST XRAY 1 VIEW on DOS: 07/18/24, XY CHES T XRAY 1 VIEW on DOS: 08/08/24 FINDINGS: Lines and Tubes: Endotracheal tube 7.6 cm above the elizabeth. Right internal jugular catheter in place in the superior vena cava. Enteric tube in the stomach. Dual-chamber pacemaker in place with a bivent ricular lead. Pulse generator over the left chest. Lungs: Airspace disease right lower lobe with pleural effusion. Pleura: No effusion. No pneumothorax. Cardiomediastinal contours: Unremarkable Bones: No acute osseous abnormality. IMPRESSION: 1. Endotracheal tube has been repositioned now 7.6 cm above the elizabeth.
--- NOTE | 2024-08-09 12:09 | DVHPN2 ---
Reviewed: Care Plan, H&P, Labs, Medications, Previous Orders, Radiology Changes from previous H/P or p: No Changes Objective Vitals Vital Signs Date Time Temp Pulse Resp B/P (MAP) Pulse Ox O2 Delivery O2 Flow Rate FiO2 08/09/24 10:05 119/60 08/09/24 09:06 60 08/09/24 08:05 20 100 40 08/09/24 08:00 98.6 209.5 08/09/24 08:00 Mechanical Ventilator+ 08/08/24 19:45 20 Intake/Output Intake and Output 08/09/24 07:00 Intake Total 1014.46 ml Output Total 11 ml Balance 1003.46 ml Intake Oral 0 ml IV Total 1014.46 ml Output Urine Total 10 ml Stool Total 1 ml Medications Current Medications Medications Dose Ordered Sig/Colleen Route Start Time Stop Time Status Last Admin Dose Admin Midazolam HCl 50 ml @ 1 mls/hr Q24H IV 08/08/24 17:45 08/09/24 00:16 2 MLS/HR Epinephrine HCl 250 ml @ 7.5 mls/hr Q24H IV 08/08/24 18:15 08/09/24 06:23 11.25 MLS/HR Ceftriaxone Sodium 50 ml @ 100 mls/hr DAILY@09 IV 08/09/24 09:00 08/09/24 09:19 100 MLS/HR Azithromycin 250 ml @ 125 mls/hr DAILY IV 08/09/24 10:00 08/09/24 10:26 125 MLS/HR Ondansetron HCl 4 mg Q4HP PRN IV 08/08/24 19:00 Acetaminophen 650 mg Q6HP PRN PO 08/08/24 19:00 Nitroglycerin 0.4 mg Q5MINP PRN SL 08/08/24 19:00 Morphine Sulfate 2 mg Q30M PRN IV 08/08/24 19:00 Furosemide 40 mg DAILY IV 08/09/24 10:00 08/09/24 09:19 40 MG Digoxin 125 mcg DAILY IV 08/09/24 10:00 Laboratory Results Laboratory Tests 08/09/24 05:09 Chemistry Test 08/08/24 17:53 08/09/24 05:09 Albumin 3.2 g/dL (3.2-4.8) 2.8 g/dL (3.2-4.8) L Calcium Level 7.9 mg/dL (8.7-10.4) L 8.3 mg/dL (8.7-10.4) L Magnesium Level 1.8 mg/dL (1.6-2.6) 1.8 mg/dL (1.6-2.6) Total Protein 5.4 g/dL (5.7-8.2) L 5.1 g/dL (5.7-8.2) L Coagulation Test 08/08/24 17:53 Prothrombin Time 12.4 sec (9.3-11.8) H Prothrombin Time INR 1.19 (0.9-1.15) H Activated Partial Thromboplast Time 29.1 SEC (24.5-34.5) LFT Test 08/08/24 17:53 08/09/24 05:09 Alanine Aminotransferase (ALT) 13 U/L (7-40) < 9 U/L (7-40) Alkaline Phosphatase 117 U/L (46-116) H 100 U/L (46-116) Aspartate Amino Transferase (AST) 34 U/L (13-40) 16 U/L (13-40) Total Bilirubin 0.6 mg/dL (0.2-1.0) 0.6 mg/dL (0.2-1.0) Urinalysis Test 08/08/24 18:09 Urine Color Light-yellow (Yellow) Urine Clarity Clear (Clear) Urine pH 7.5 (5.0-9.0) Urine Specific [place] 1.011 (1.001-1.035) Urine Protein 1+ (Negative) H Urine Ketones Negative (Negative) Urine Blood Negative /uL (Negative) Urine Nitrite Negative (Negative) Urine Bilirubin Negative (Negative) Urine Urobilinogen Normal mg/dL (Negative) Urine Leukocyte Esterase Negative /uL (Negative) Urine RBC 1 /hpf (0 - 3) Urine Microscopic WBC 1 /HPF (0-3) Urine Squamous Epithelial Cells Few /hpf (<5) Urine Bacteria None seen /hpf (None Seen) Urine Glucose 3+ mg/dL (Normal) H Blood Gas Results Test 08/08/24 21:10 08/09/24 07:23 Arterial Blood pH 7.451 (7.350-7.450) 7.583 (7.350-7.450) FiO2 % 100.0 50.0 Labs and/or images reviewed: Labs reviewed by me, Image(s) reviewed by me Assessment/Plan Assessment/Plan Cardiopulmonary arrest status post ROSC, cardiology consult for Dr. Silvana Chamberlain Acute hypoxic respiratory failure: Intubated, consult for pulmonology Dr. Elder for vent management End-stage renal disease, dialysis dependent , consult for Dr. Rosales Anemia of chronic disease Questionable pneumonia : Rocephin Coronary artery disease AFib Hypertension Acute on chronic congestive heart failure Acute lactic acidosis 4.8 CT head negative GI prophylaxis pantoprazole DVT prophylaxis SCD Patient came from [place] [facility] Dr Larose is his Dr in the [place] [facility] Time Spent 70 minutes Condition guarded Advanced care planning time 20 minutes Condition serious Patient is full code Plan discussed with: Patient My Orders Orders - BETTY BRAUN MD Procedure Category Date Status Time *Consult CONS 08/09/24 Transmitted / 12:04 Date of Service: Aug 09, 2024 Billing Provider: BETTY BRAUN MD Common Visit Codes: [id number] CARE 30-74 MIN BETTY BRAUN MD Aug 09, 2024 12:09
[2024-08-09] MEDS: fentaNYL Drip 2500mCg/250mlNS 250 ML IV SCH (12:45)
[2024-08-09] MEDS: NOREPINEPHRINE 8 MG/250ML KIT 250 ML IV SCH (14:52)
[2024-08-09] MEDS: PANTOPRAZOLE 40 MG/10 ML VIAL INJ IV ONE (14:54)
[2024-08-09] MEDS: PROPOFOL 100 ML IV SCH (18:45)
[2024-08-09 20:24] LABS: Base Excess 7.4 mmol/L (-2.0-3.0)
--- NOTE | 2024-08-09 21:57 | DVHINCON2 ---
Date of service: Aug 08, 2024 Referring Physician Dagoberto Wang NP Reason for Consultation Acute hypoxic respiratory failure requiring mechanical ventilator and pleural effusion History of Present Illness A 64-year-old man with PMHx of CAD, atrial fibrillation, end-stage renal disease, hypertension, and CHF who presented to ED on 08/08/24 in cardiopulmonary arrest. Patient completed his dialysis treatment and was being transported back to [facility] when he became unresponsive en route and CPR was initiated by EMS. Patient was emergently intubated on arrival to ED and admitted for further care. HPI information is limited, no family available. Patient remains in critical but stable condition. Pulmonary consultation is requested for evaluation and management of acute hypoxic respiratory failure requiring mechanical ventilator and pleural effusion. Review of Systems: Unable to obtain d/t intubated status Past Medical History CAD atrial fibrillation, end-stage renal disease, hypertension, CHF Past Surgical History Dialysis access, cardiac stents, pacemaker Medications: Reviewed. Allergies: No known drug allergies. Family History: Cardiomegaly CHF. Hypertension Social History: Nonsmoker. No alcohol or illicit drug use. Family History: Cardiomegaly G8 FATHER FH: CHF (congestive heart failure) G8 MOTHER Hypertension G8 MOTHER G8 FATHER Allergies: Coded Allergies: NO KNOWN ALLERGIES (Unverified , 04/07/24) Home Meds Active Scripts Famotidine (PEPCID TABLET) 20 Mg Tb, 1 TAB PO BID for 30 Days, #60 TAB 5 Refills Prov:[facility] 05/21/24 Sacubitril-Valsartan (Entresto 24-26 mg) 1 Tab Tab, 1 TAB PO BID for 30 Days, #60 TAB Prov:[facility] 05/21/24 Sevelamer Carbonate (Renvela) 800 Mg Tab, 1 TAB PO TID for 30 Days, #90 TAB 3 Refills Prov:[facility] 05/21/24 Carvedilol (Carvedilol) 6.25 Mg Tab, 1 TAB PO BID for 30 Days, #60 TAB 1 Refill Prov:[facility] 05/21/24 Furosemide (Lasix) 20 Mg Tb, 40 MG PO DAILY for 30 Days, #30 TAB Prov:[facility] 05/21/24 Doxycycline (Monohydrate) (Doxycycline) 100 Mg Cap, 100 MG PO BID for 5 Days, #10 CAP Prov:KEILY GREGG [facility] 05/21/24 Amiodarone HCl (Amiodarone HCl) 200 Mg Tab, 400 MG PO DAILY for 30 Days, #60 TAB Prov:MONIQUE MACDONALD [facility] 04/29/24 Digoxin (Lanoxin) 125 Mcg Tab, 0.125 MG PO EOD for 30 Days, #30 TAB Prov:MONIQUE MACDONALD [facility] 04/29/24 Reported Medications Apixaban Base (ELIQUIS) 2.5 Mg Tab, 2.5 MG PO BID for 60 Days, #60 04/09/24 Dapagliflozin Propanediol (Farxiga) 10 Mg Tab, 1 TAB PO DAILY for 30 Days, #30 04/09/24 Aripiprazole (Aripiprazole) 5 Mg Tab, 1 TAB PO DAILY for 30 Days, #30 04/09/24 Current Medications Current Medications Medications (Trade) Dose Ordered Sig/Colleen Route PRN Reason Start Time Stop Time Status Last Admin Ceftriaxone Sodium 50 ml @ 100 mls/hr DAILY@09 IV 08/09/24 09:00 08/09/24 09:19 Azithromycin 250 ml @ 125 mls/hr DAILY IV 08/09/24 10:00 08/09/24 10:26 Furosemide (Lasix Injection) 40 mg DAILY IV 08/09/24 10:00 08/09/24 09:19 Digoxin (Lanoxin Injection) 125 mcg DAILY IV 08/09/24 10:00 Pantoprazole Sodium (Protonix) 40 mg DAILY IV 08/10/24 10:00 Fentanyl Citrate 250 ml @ 2.5 mls/hr Q24H IV 08/09/24 12:45 08/09/24 18:26 Norepinephrine Bitartrate 250 ml @ 3.75 mls/hr Q24H IV 08/09/24 13:30 08/09/24 14:52 Amino Acid Protein (Pro-Stat Sugar Free) 30 ml DAILY PO 08/10/24 10:00 Enteral Nutritional Formula (Ovi Douglas Powder PACKET) 27.5 gm BID PO 08/09/24 22:00 Propofol 100 ml @ 1.98 mls/hr Q24H IV 08/09/24 18:45 Vital Signs Vital Signs Date Time Temp Pulse Resp B/P (MAP) Pulse Ox O2 Delivery O2 Flow Rate FiO2 08/09/24 20:50 82/42 08/09/24 20:45 97.9 60 17 100 208.2 08/09/24 19:51 30 08/09/24 18:00 Mechanical Ventilator+ 08/08/24 19:45 20 Physical Exam Gen.: Patient lying in bed in medical ICU. Sedated, intubated on mechanical ventilator. Head: Normocephalic, atraumatic. Eyes: PERRLA. Ears: Normal external anatomy. Throat: Endotracheal tube and orogastric tube in place. Neck: Supple, trachea midline. Chest: Transmitted breath sounds bilaterally. Decreased air entry bilaterally. No wheezing. Bibasilar crackles. Cardiovascular: Positive S1, positive S2. Regular rate and rhythm. Abdomen: Positive bowel sounds in all 4 quadrants. Soft, nontender, nondistended. : Shaw in place. Normal external genitalia. Rectal: Deferred. Skin: Warm, dry. Intact. Extremities: 2+ radial pulses bilaterally. No lower extremity edema. Neuro: Sedated. Labs/Diagnostic Data Labs Test 08/09/24 20:19 08/09/24 07:23 08/09/24 05:09 08/08/24 20:56 Range/Units Blood Gas Specimen Type Arterial Blood Gas Sample Site Left radial Blood Gas Patient Temperature 37.0 Arterial Blood Date Drawn [id number] Arterial Blood pH 7.503 H 7.350-7.450 Arterial Blood Partial Pressure CO2 40.5 35.0-48.0 mmHg Arterial Blood Partial Pressure O2 82.6 L 83.0-108.0 mmHg Arterial Blood HCO3 31.1 H 21.0-28.0 mmol/L Arterial Blood Oxygen Saturation 95.9 94.0-98.0 % Arterial Blood Base Excess 7.4 H -2.0-3.0 mmol/L Arterial Blood Oxyhemoglobin 94.7 94.0-98.0 % Arterial Blood Carboxyhemoglobin 0.7 0.5-1.5 % Arterial Blood Methemoglobin 0.6 0.0-1.5 % Chilo Test Modified Blood Gas Total Hemoglobin 10.20 L 13.5-17.5 g/dL Blood Gas Set Respiration Rate 16.0 Blood Gas Modality Vent - ac FiO2 % 30.0 Blood Gas Tidal Volume 500.0 Blood Gas PEEP or CPAP 5.0 Blood Gas Critical Value Read Back Yes Blood Gas Notified Whom Bun Icer wang, j Blood Gas Notified Time [id number] Blood Gas Notified By Support Team Member mando crystal White Blood Count 4.0 L 4.4-10.8 10^3/uL Red Blood Count 2.78 L 4.5-5.90 10^6/uL Hemoglobin 9.1 #L 13.5-17.5 g/dL Hematocrit 27.2 #L 41.0-53.0 % Mean Corpuscular Volume 97.8 # 80.0-100.0 fL Mean Corpuscular Hemoglobin 32.8 H 28.0-32.0 pg Mean Corpuscular Hemoglobin Concent 33.5 32.0-36.0 g/dL Red Cell Distribution Width 20.5 H 11.8-14.3 % Platelet Count 112 L 140-450 10^3/uL Mean Platelet Volume 7.3 6.9-10.8 fL Neutrophils (%) (Auto) 81.1 H 37.0-80.0 % Lymphocytes (%) (Auto) 6.4 L 10.0-50.0 % Monocytes (%) (Auto) 9.0 0.0-12.0 % Eosinophils (%) (Auto) 2.7 0.0-7.0 % Basophils (%) (Auto) 0.8 0.0-2.0 % Neutrophils # (Auto) 3.2 1.6-8.6 10 ^3/uL Lymphocytes # (Auto) 0.3 L 0.4-5.4 10 ^3/uL Monocytes # (Auto) 0.4 0-1.3 10 ^3/uL Eosinophils # (Auto) 0.1 0-0.8 10 ^3/uL Basophils # (Auto) 0 0-0.2 10 ^3/uL Nucleated Red Blood Cells 0.2 % Platelet Estimate Decreased Anisocytosis (manual) Slight Stomatocytes Moderate Terrance Cells Few Sodium Level 132 L 136-145 mmol/L Potassium Level 3.8 3.5-5.1 mmol/L Chloride Level 92 L 98-107 mmol/L Carbon Dioxide Level 30 20-31 mmol/L Anion Gap 10 5-15 Blood Urea Nitrogen 15 9-23 mg/dL Creatinine 2.86 H 0.700-1.30 mg/dL Glomerular Filtration Rate Calc 24 >90 mL/min BUN/Creatinine Ratio 5.2 L 10.0-20.0 Serum Glucose 144 H 74-106 mg/dL Calcium Level 8.3 L 8.7-10.4 mg/dL Magnesium Level 1.8 1.6-2.6 mg/dL Total Bilirubin 0.6 0.2-1.0 mg/dL Aspartate Amino Transferase (AST) 16 13-40 U/L Alanine Aminotransferase (ALT) < 9 7-40 U/L Alkaline Phosphatase 100 46-116 U/L Total Protein 5.1 L 5.7-8.2 g/dL Albumin 2.8 L 3.2-4.8 g/dL Lactic Acid Level 3.4 *H 0.4-2.0 mmol/L Troponin I High Sensitivity 50 </=54 ng/L Test 08/08/24 18:09 08/08/24 17:53 Range/Units Urine Color Light-yellow Yellow Urine Clarity Clear Clear Urine pH 7.5 5.0-9.0 Urine Specific [place] 1.011 1.001-1.035 Urine Protein 1+ H Negative Urine Ketones Negative Negative Urine Blood Negative Negative /uL Urine Nitrite Negative Negative Urine Bilirubin Negative Negative Urine Urobilinogen Normal Negative mg/dL Urine Leukocyte Esterase Negative Negative /uL Urine RBC 1 0 - 3 /hpf Urine Microscopic WBC 1 0-3 /HPF Urine Squamous Epithelial Cells Few <5 /hpf Urine Bacteria None seen None Seen /hpf Urine Glucose 3+ H Normal mg/dL Prothrombin Time 12.4 H 9.3-11.8 sec Prothrombin Time INR 1.19 H 0.9-1.15 Activated Partial Thromboplast Time 29.1 24.5-34.5 SEC Microbiology Date/Time Source Procedure Growth Status 08/08/24 18:04 Blood Blood Culture - Preliminary NO GROWTH AFTER 24 HOURS OF INCUBATION. Resulted Assessment Impression: Acute hypoxic respiratory failure On mechanical ventilator S/p cardiac arrest S/p ROSC Pleural effusion Atelectasis End-stage renal disease, on hemodialysis Shock Plan: s/p intubation on mechanical ventilator. ABG notable for alkalemia CXR image and report reviewed. Airspace disease, right lower lobe with pleural effusion. Devices in place. On AC mode; RR 20, VT 550, PEEP 5, FiO2 30% Taper RR to 16, VT to 500 Obtain ABG in 2 hours Titrate FIO2 to keep O2 saturation above 90%. VAP bundle. Daily ABG and CXR while intubated Sedate for ventilator synchrony - on Versed 3 mg/hr Continue antibiotics. F/u cultures. Pressors as necessary for hemodynamic support Titrate to keep mean arterial pressure greater than 65 mmHg. Monitor renal function Monitor electrolytes. Supplement as necessary. Monitor ins and outs. GI prophylaxis. DVT prophylaxis. Prognosis: Poor given patient's multiple co-morbidities. Condition: Critical Rest of plan per hospitalist and other consultants. A total of 36 minutes of critical care time was spent reviewing the patient record, examining the patient, making a diagnostic and therapeutic plan, discussing this plan with the medical personnel, following up on diagnostic studies and following the patient for clinical stability excluding any and all procedures. At least 50% of this time was spent in direct, [id number] contact. Thank you, JI Wang, for allowing me to participate in this patient's care. Further recommendations will depend on the patient's clinical course. Please do not hesitate to contact me if you have any questions or concerns. This medical document was created using an electronic medical record system with [employer] dictation system. Although these documentations are being carefully reviewed, there may still be some phonetic and typographical changes. The errors are purely typographical, due to imperfection on the software program, and do not reflect any compromise in the patient's medical care. Plan discussed with: Other (RN/JI Wang/) DEVAUGHN LEONG MD Aug 09, 2024 21:57
[2024-08-09] MEDS: Juven Orange Powder PACKET 27.5gm PO SCH (22:00)
[2024-08-10] VITALS (108 sets, daily range): BP systolic 74–151; BP diastolic 30–75; PULSE 60–82; RESP 12–18; TEMP 97.2–99.1; O2SAT 97–100
--- NOTE | 2024-08-10 01:29 | DVHPN2 ---
Progress Note - Dictate Date Seen: Aug 09, 2024 Medical Necessity Reason Pt with a Central, PICC or Fol: Yes The following are medically ne: Lynne Catheter Reason for lynne catheter: Strict I&O Subjective Patient seen and examined at bedside. Sedated, intubated on mechanical ventilator. Overnight events reviewed. vital signs Vital Sign Date Time Temp Pulse Resp B/P (MAP) Pulse Ox O2 Delivery O2 Flow Rate FiO2 08/10/24 01:01 87/33 08/10/24 00:30 97.3 67 14 100 207.1 08/10/24 00:00 Mechanical Ventilator+ 30 30 08/08/24 19:45 20 Total Intake and Output 08/09/24 08/09/24 08/10/24 15:00 23:00 07:00 Intake Total 391.50 ml 64.25 ml 18.50 ml Output Total 50 ml Balance 391.50 ml 14.25 ml 18.50 ml medications Current Medications Medications Dose Ordered Sig/Colleen Route Start Time Stop Time Status Last Admin Dose Admin Midazolam HCl 50 ml @ 1 mls/hr Q24H IV 08/08/24 17:45 08/09/24 19:32 2 MLS/HR Epinephrine HCl 250 ml @ 7.5 mls/hr Q24H IV 08/08/24 18:15 08/09/24 06:23 11.25 MLS/HR Ceftriaxone Sodium 50 ml @ 100 mls/hr DAILY@09 IV 08/09/24 09:00 08/09/24 09:19 100 MLS/HR Azithromycin 250 ml @ 125 mls/hr DAILY IV 08/09/24 10:00 08/09/24 10:26 125 MLS/HR Ondansetron HCl 4 mg Q4HP PRN IV 08/08/24 19:00 Acetaminophen 650 mg Q6HP PRN PO 08/08/24 19:00 Nitroglycerin 0.4 mg Q5MINP PRN SL 08/08/24 19:00 Morphine Sulfate 2 mg Q30M PRN IV 08/08/24 19:00 Furosemide 40 mg DAILY IV 08/09/24 10:00 08/09/24 09:19 40 MG Digoxin 125 mcg DAILY IV 08/09/24 10:00 Pantoprazole Sodium 40 mg DAILY IV 08/10/24 10:00 Fentanyl Citrate 250 ml @ 2.5 mls/hr Q24H IV 08/09/24 12:45 08/09/24 18:26 2.5 MLS/HR Norepinephrine Bitartrate 250 ml @ 3.75 mls/hr Q24H IV 08/09/24 13:30 08/09/24 14:52 3.75 MLS/HR Amino Acid Protein 30 ml DAILY PO 08/10/24 10:00 Enteral Nutritional Formula 27.5 gm BID PO 08/09/24 22:00 Propofol 100 ml @ 1.98 mls/hr Q24H IV 08/09/24 18:45 objective Gen.: Patient lying in bed in medical ICU. Sedated, intubated on mechanical ventilator. Head: Normocephalic, atraumatic. Eyes: PERRLA. Ears: Normal external anatomy. Throat: Endotracheal tube and orogastric tube in place. Neck: Supple, trachea midline. Chest: Transmitted breath sounds bilaterally. Decreased air entry bilaterally. No wheezing. Bibasilar crackles. Cardiovascular: Positive S1, positive S2. Regular rate and rhythm. Abdomen: Positive bowel sounds in all 4 quadrants. Soft, nontender, nondistended. : Lynne in place. Normal external genitalia. Rectal: Deferred. Skin: Warm, dry. Intact. Extremities: 2+ radial pulses bilaterally. No lower extremity edema. Neuro: Sedated. laboratory and microbiology Laboratory Tests 08/09/24 05:09 Test 08/09/24 05:09 Range/Units Serum Glucose 144 H 74-106 mg/dL Assessment/Plan Impression: Acute hypoxic respiratory failure On mechanical ventilator S/p cardiac arrest S/p ROSC Pleural effusion Atelectasis End-stage renal disease, on hemodialysis Shock Events: Remains on vent support On AC mode; RR 16, VT 500, PEEP 5, FiO2 30% Sedated on Propofol, Fentanyl On pressors for hemodynamic support Levophed 2 mcg/min Titrate to keep mean arterial pressure greater than 65 mmHg. Cardiology recs appreciated. Continue antibiotics Diurese as tolerated w/ Lasix Monitor renal function ABG reviewed, notable for alkalemia CXR reviewed. Airspace disease in RLL with pleural effusion. Devices in place. Labs and imaging reviewed. Rest of plan as noted below. Plan: s/p intubation on mechanical ventilator. On AC mode; RR 16, VT 500, PEEP 5, FiO2 30% Titrate FIO2 to keep O2 saturation above 90%. VAP bundle. Daily ABG and CXR while intubated Sedate for ventilator synchrony Continue antibiotics. F/u cultures. Pressors for hemodynamic support Titrate to keep mean arterial pressure greater than 65 mmHg. Monitor renal function Monitor electrolytes. Supplement as necessary. Monitor ins and outs. Maintain euvolemia. GI prophylaxis. DVT prophylaxis. Prognosis: Poor given patient's multiple co-morbidities. Condition: Critical Rest of plan per hospitalist and other consultants. A total of 35 minutes of critical care time was spent reviewing the patient record, examining the patient, making a diagnostic and therapeutic plan, discussing this plan with the medical personnel, following up on diagnostic studies and following the patient for clinical stability excluding any and all procedures. At least 50% of this time was spent in direct, [id number] contact. Thank you, JI Wang, for allowing me to participate in this patient's care. Further recommendations will depend on the patient's clinical course. Please do not hesitate to contact me if you have any questions or concerns. This medical document was created using an electronic medical record system with [employer] dictation system. Although these documentations are being carefully reviewed, there may still be some phonetic and typographical changes. The errors are purely typographical, due to imperfection on the software program, and do not reflect any compromise in the patient's medical care. Dietary Evaluation Review Recommendations by RD: Protein Supplementation Comments: 1) Initiate Pro-Stat @ 30 mL qd 2) Initiate Ovi @ 1 pk bid 3) Initiate Nephro-Eri @ 1 tb qd 4) If patient remains NPO > 7 days, consider EN/TPN to meet at least 75% of estimated daily needs 5) Advance to renal standard diet when medically feasible, pending [employer]TING [employer]GER approval 4) Continue to monitor I&O, labs, and skin integrity Expected Outcomes/Goals: 1) patient to receive nutritional support within 7 days 2) labs and wound to improve 3) diet to advance 4) f/u in 2-3 days Plan discussed with: Other (RN) Critical Care Time(min): 35 DEVAUGHN LEONG MD Aug 10, 2024 01:29
--- NOTE | 2024-08-10 05:06 | DVH ---
EXAM: XR Chest, 1 View CLINICAL INDICATION: INTUBATED TECHNIQUE: Frontal view of the chest. COMPARISON: XY CHEST PORTABLE on DOS: 08/09/24, XY CHEST XRAY 1 VIEW on DOS: 08/08/24, XY CHEST XRAY 1 VIEW on DOS: 08/08/24, XY CHEST PORTABLE on DOS: 07/30/24, XY CHEST PORTABLE on DOS: 07/30/24 FINDINGS: LUNGS AND PLEURAL SPACES: Bibasilar atelectasis or pneumonia. Bilateral pleural effusions.. No pn eumothorax. HEART: Unremarkable. No cardiomegaly. MEDIASTINUM: Unremarkable. Normal mediastinal contour. BONES/JOINTS: Unremarkable. No acute fracture. TUBES, LINES AND DEVICES: Stable tubes and lines. OTHER FINDINGS: . IMPRESSION: Bibasilar atelectasis or pneumonia.
[2024-08-10 05:20] LABS: Basophils # (auto) 0 10 ^3/uL (0-0.2); Eosinophils # (auto) 0.2 10 ^3/uL (0-0.8); Eosinophils % (auto) 5.8 % (0.0-7.0); Hematocrit 27.8 % (41.0-53.0); Hemoglobin 9.2 g/dL (13.5-17.5); Lymphocytes # (auto) 0.5 10 ^3/uL (0.4-5.4); Mean Corpuscular Hemoglobin 32.5 pg (28.0-32.0); Mean Corpuscular Hgb Conc. 33.1 g/dL (32.0-36.0); Mean Corpuscular Volume 98.2 fL (80.0-100.0); Monocytes # (auto) 0.4 10 ^3/uL (0-1.3); Monocytes % (auto) 11.3 % (0.0-12.0); Neutrophils # (auto) 2.3 10 ^3/uL (1.6-8.6); Neutrophils % (auto) 67.9 % (37.0-80.0); Nucleated Red Blood Cells % 0.1 %; Platelet Count (auto) 124 10^3/uL (140-450); Red Blood Cells 2.83 10^6/uL (4.5-5.90); Red Cell Distribution Width 21.2 % (11.8-14.3); White Blood Cell 3.3 10^3/uL (4.4-10.8)
[2024-08-10 05:35] LABS: Alkaline Phosphatase 87 U/L (46-116); Anion Gap 4 (5-15); Aspartate Aminotransferase 14 U/L (13-40); BUN/Creatinine Ratio 5.5 (10.0-20.0); Blood Urea Nitrogen 20 mg/dL (9-23); Calcium 8.9 mg/dL (8.7-10.4); Glucose 82 mg/dL (74-106); Magnesium 1.9 mg/dL (1.6-2.6); Potassium 4.1 mmol/L (3.5-5.1)
[2024-08-10 05:36] LABS: Bilirubin, Total 0.5 mg/dL (0.2-1.0)
[2024-08-10 05:42] LABS: Alanine Aminotransferase < 9 U/L (7-40); Albumin 2.7 g/dL (3.2-4.8); Carbon Dioxide 32 mmol/L (20-31); Chloride 98 mmol/L (98-107); Sodium 134 mmol/L (136-145); Total Protein 4.7 g/dL (5.7-8.2)
[2024-08-10 07:16] LABS: Base Excess 5.4 mmol/L (-2.0-3.0)
--- NOTE | 2024-08-10 10:36 | DVHINCON2 ---
Date of service: Aug 10, 2024 History of Present Illness HPI Patient is a 64-year-old gentleman who was brought to the hospital for arrest. Reportedly the patient had hemodialysis and was being taken back, when he arrested at transport vehicle and was brought to the hospital. Reportedly EMS was performing CPR prior to arrival to the hospital which was continued in emergency room. Patient is intubated and is being managed in [facility]/ICU. Cardiology is involved for cardiac aspects of care. Patient is known to our practice from before. It is of note that the patient was in the hospital in mid June up to early July for an episode of cardiac arrest/VFib. At that time he was started on amiodarone/mexiletine. It is also of note that the patient was brought back later in July and for some reason the antiarrhythmic drugs were not continued (was not seen by Cardiology at that point). Review of the transfer notes reveals that he has not been taking the above noted antiarrhythmics. It is also of note that the patient did have angiogram in late June which revealed patent stents and no indication for intervention. Patient does have a Medtronic BiV-ICD. He does have baseline history of noncompliance. He also has history of repeated GI bleedings and also DVT. Prior to this arrival, the patient was not on any anticoagulation (was it held because of GI bleeding/pancytopenia?). Home Meds Active Scripts Famotidine (PEPCID TABLET) 20 Mg Tb, 1 TAB PO BID for 30 Days, #60 TAB 5 [facility] Sacubitril-Valsartan (Entresto 24-26 mg) 1 Tab Tab, 1 TAB PO BID for 30 Days, #60 TAB Prov:[facility] 05/21/24 Sevelamer Carbonate (Renvela) 800 Mg Tab, 1 TAB PO TID for 30 Days, #90 TAB 3 Refills Prov:[facility] 05/21/24 Carvedilol (Carvedilol) 6.25 Mg Tab, 1 TAB PO BID for 30 Days, #60 TAB 1 Refill Prov:[facility] 05/21/24 Furosemide (Lasix) 20 Mg Tb, 40 MG PO DAILY for 30 Days, #30 TAB [facility]24 Doxycycline (Monohydrate) (Doxycycline) 100 Mg Cap, 100 MG PO BID for 5 Days, #10 CAP Prov:[facility] 05/21/24 Amiodarone HCl (Amiodarone HCl) 200 Mg Tab, 400 MG PO DAILY for 30 Days, #60 TAB Prov:[facility] 04/29/24 Digoxin (Lanoxin) 125 Mcg Tab, 0.125 MG PO EOD for 30 Days, #30 TAB Prov:[facility]IQUE [facility] RECREATION AIDE 04/29/24 Reported Medications Apixaban Base (ELIQUIS) 2.5 Mg Tab, 2.5 MG PO BID for 60 Days, #60 04/09/24 Dapagliflozin Propanediol (Farxiga) 10 Mg Tab, 1 TAB PO DAILY for 30 Days, #30 04/09/24 Aripiprazole (Aripiprazole) 5 Mg Tab, 1 TAB PO DAILY for 30 Days, #30 04/09/24 Past Medical History Others Past medical history includes end-stage renal disease on hemodialysis, hypertension, hyperlipidemia, old history of prostate cancer, systolic heart failure, old history of myocardial infarction and PCI (reportedly years ago), old history of multiple cardiac ablation (unknown details), history of nonsustained ventricular tachycardia, h/o V-Fib and sustained V-tach, status post BiV-ICD (Medtronic) implantation, repeated DVTs (including upper ext), status post repeated right AV fistula thrombectomy, old history of GI bleeding, pulmonary hypertension (more likely type 2), 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 Patient Family History: Cardiomegaly G8 FATHER FH: CHF (congestive heart failure) G8 MOTHER Hypertension G8 MOTHER G8 FATHER Review of Systems Comments Patient is intubated and can not provide review of systems/social history/family history.... H&P Exam Vital Signs Vital Signs Date Time Temp Pulse Resp B/P (MAP) Pulse Ox O2 Delivery O2 Flow Rate FiO2 08/10/24 09:26 66 16 115/38 (63) 100 30 08/10/24 06:30 98.2 208.8 08/10/24 06:00 Mechanical Ventilator+ 08/08/24 19:45 20 General Appeara: Mild distress Head Exam: Normal inspection Neck Exam: Non-tender Pulmonary/Respiratory: Rhonci Cardiovascular/Chest: Edema, Systolic murmur Peripheral Pulses: 2+ carotid (R), 2+ carotid (L) Labs/Xrays Labs Test 08/10/24 06:45 08/10/24 04:58 08/09/24 07:23 08/09/24 05:09 Range/Units Blood Gas Specimen Type Arterial Blood Gas Sample Site Left radial Blood Gas Patient Temperature 37.0 Arterial Blood Date Drawn [id number] Arterial Blood pH 7.522 H 7.350-7.450 Arterial Blood Partial Pressure CO2 35.5 35.0-48.0 mmHg Arterial Blood Partial Pressure O2 81.0 L 83.0-108.0 mmHg Arterial Blood HCO3 28.5 H 21.0-28.0 mmol/L Arterial Blood Oxygen Saturation 96.0 94.0-98.0 % Arterial Blood Base Excess 5.4 H -2.0-3.0 mmol/L Arterial Blood Oxyhemoglobin 94.3 94.0-98.0 % Arterial Blood Carboxyhemoglobin 1.5 0.5-1.5 % Arterial Blood Methemoglobin 0.3 0.0-1.5 % Chilo Test Modified Blood Gas Total Hemoglobin 9.70 L 13.5-17.5 g/dL Blood Gas Set Respiration Rate 16.0 Blood Gas Modality Vent - ac FiO2 % 30.0 Blood Gas Tidal Volume 500.0 Blood Gas PEEP or CPAP 5.0 White Blood Count 3.3 L 4.4-10.8 10^3/uL Red Blood Count 2.83 L 4.5-5.90 10^6/uL Hemoglobin 9.2 L 13.5-17.5 g/dL Hematocrit 27.8 L 41.0-53.0 % Mean Corpuscular Volume 98.2 80.0-100.0 fL Mean Corpuscular Hemoglobin 32.5 H 28.0-32.0 pg Mean Corpuscular Hemoglobin Concent 33.1 32.0-36.0 g/dL Red Cell Distribution Width 21.2 H 11.8-14.3 % Platelet Count 124 L 140-450 10^3/uL Mean Platelet Volume 7.3 6.9-10.8 fL Neutrophils (%) (Auto) 67.9 37.0-80.0 % Lymphocytes (%) (Auto) 14.0 10.0-50.0 % Monocytes (%) (Auto) 11.3 0.0-12.0 % Eosinophils (%) (Auto) 5.8 0.0-7.0 % Basophils (%) (Auto) 1.0 0.0-2.0 % Neutrophils # (Auto) 2.3 1.6-8.6 10 ^3/uL Lymphocytes # (Auto) 0.5 0.4-5.4 10 ^3/uL Monocytes # (Auto) 0.4 0-1.3 10 ^3/uL Eosinophils # (Auto) 0.2 0-0.8 10 ^3/uL Basophils # (Auto) 0 0-0.2 10 ^3/uL Nucleated Red Blood Cells 0.1 % Sodium Level 134 L 136-145 mmol/L Potassium Level 4.1 3.5-5.1 mmol/L Chloride Level 98 98-107 mmol/L Carbon Dioxide Level 32 H 20-31 mmol/L Anion Gap 4 L 5-15 Blood Urea Nitrogen 20 9-23 mg/dL Creatinine 3.66 H 0.700-1.30 mg/dL Glomerular Filtration Rate Calc 18 >90 mL/min BUN/Creatinine Ratio 5.5 L 10.0-20.0 Serum Glucose 82 74-106 mg/dL Calcium Level 8.9 8.7-10.4 mg/dL Magnesium Level 1.9 1.6-2.6 mg/dL Total Bilirubin 0.5 0.2-1.0 mg/dL Aspartate Amino Transferase (AST) 14 13-40 U/L Alanine Aminotransferase (ALT) < 9 7-40 U/L Alkaline Phosphatase 87 46-116 U/L Total Protein 4.7 L 5.7-8.2 g/dL Albumin 2.7 L 3.2-4.8 g/dL Blood Gas Critical Value Read Back Yes Blood Gas Notified Whom sommer Li Blood Gas Notified Time [id number] Blood Gas Notified By Engineering Equipment Operator mando crystal Platelet Estimate Decreased Anisocytosis (manual) Slight Stomatocytes Moderate Spencer Cells Few Test 08/08/24 20:56 08/08/24 18:09 08/08/24 17:53 Range/Units Lactic Acid Level 3.4 *H 0.4-2.0 mmol/L Troponin I High Sensitivity 50 </=54 ng/L Urine Color Light-yellow Yellow Urine Clarity Clear Clear Urine pH 7.5 5.0-9.0 Urine Specific [place] 1.011 1.001-1.035 Urine Protein 1+ H Negative Urine Ketones Negative Negative Urine Blood Negative Negative /uL Urine Nitrite Negative Negative Urine Bilirubin Negative Negative Urine Urobilinogen Normal Negative mg/dL Urine Leukocyte Esterase Negative Negative /uL Urine RBC 1 0 - 3 /hpf Urine Microscopic WBC 1 0-3 /HPF Urine Squamous Epithelial Cells Few <5 /hpf Urine Bacteria None seen None Seen /hpf Urine Glucose 3+ H Normal mg/dL Prothrombin Time 12.4 H 9.3-11.8 sec Prothrombin Time INR 1.19 H 0.9-1.15 Activated Partial Thromboplast Time 29.1 24.5-34.5 SEC Microbiology Date/Time Source Procedure Growth Status 08/08/24 21:20 Sputum Gram Stain - Final Resulted 08/08/24 21:20 Sputum Respiratory Culture - Preliminary Resulted 08/08/24 18:04 Blood Blood Culture - Preliminary NO GROWTH AFTER 24 HOURS OF INCUBATION. Resulted Assessment/Plan Plan Patient is a 64-year-old gentleman who was brought to the hospital for arrest. Reportedly the patient had hemodialysis and was being taken back, when he arrested at transport vehicle and was brought to the hospital. Reportedly EMS was performing CPR prior to arrival to the hospital which was continued in emergency room. Patient is intubated and is being managed in [facility]/ICU. Cardiology is involved for cardiac aspects of care. Patient is known to our practice from before. It is of note that the patient was in the hospital in mid June up to early July for an episode of cardiac arrest/VFib. At that time he was started on amiodarone/mexiletine. It is also of note that the patient was brought back later in July and for some reason the antiarrhythmic drugs were not continued (was not seen by Cardiology at that point). Review of the transfer notes reveals that he has not been taking the above noted antiarrhythmics. It is also of note that the patient did have angiogram in late June which revealed patent stents and no indication for intervention. Patient does have a Medtronic BiV-ICD. He does have baseline history of noncompliance. He also has history of repeated GI bleedings and also DVT. Prior to this arrival, the patient was not on any anticoagulation (was it held because of GI bleeding/pancytopenia?). Intubated. No JVD. Mucosa is pink and wet. No carotid bruit. Lungs: Scattered rhonchi in the lungs is heard. Cardiac: Regular, systolic murmur 3/6 in the apex is heard. The site for ICD implantation looks clean with no erythema/ecchymosis/tenderness. Abdomen is soft. Bowel sound is positive. Extremities reveal 3+ edema bilaterally in lower and upper ext. 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 Echocardiogram of April 08, 2024 had reported four-chamber dilatation, ejection fraction of 20%, [id number] MR/TR and right ventricular systolic pressure of 75 mm Hg Echocardiogram of May 19, 2024 had reported four-chamber dilatation, ejection fraction of 35%, D shaped septum, pulmonary hypertension, mobile interatrial septum, [id number] aortic insufficiency, mild mitral regurgitation, moderate TR and right ventricular systolic pressure of 80 mm Hg Echocardiogram of June 28, 2024 reported ejection fraction of 20%, septal flattening and biatrial enlargement Left heart catheterization of July 06, 2024 revealed no obstructive coronary artery disease. There was patent stents in LAD/RCA. WBC: 3.4 - 4.0 - 3.3 Platelet: 139 - 112 - 124 Hemoglobin: 11.1 - 9.1 - 9.2 Creatinine: 2.39 - 2.86 - 3.66 Potassium: 4.4 - 3.8 - 4.1 Troponin (high sensitive): 42 - 41 - 50 Chest x-ray revealed: IMPRESSION: 1. Endotracheal tube in place 9.3 cm above the elizabeth. 2. Right internal jugular catheter in place in the superior vena cava 3. Enteric tube at the gastroesophageal junction recommend advancement 3-4 inches. 4. Dual-chamber biventricular pacemaker in place with pulse generator over the left chest, 5. Right lower lobe infiltrate and effusion worse than 07/30/2024 tubing overlying the lower right lung field correlate for possible chest tube placement. Repeat chest x-ray revealed: IMPRESSION: 1. Endotracheal tube has been repositioned now 7.6 cm above the elizabeth. Repeat chest x-ray revealed: IMPRESSION: 1. Endotracheal tube has been repositioned now 7.6 cm above the elizabeth. Repeat chest x-ray revealed: IMPRESSION: Bibasilar atelectasis or pneumonia. CT of the head revealed: IMPRESSION: 1. No acute intracranial abnormality. Telemetry reveals paced rhythm Patient is a 64-year-old gentleman who presented with post arrest. It is of note that the patient did have arrest (V-tach VFib) in June 2024. At that point he was started on some antiarrhythmics which unfortunately have not been continued as outpatient. Serial high sensitive troponin has been negative and acute coronary syndrome is not considered for clinical presentation at this point. We do have a recent cardiac catheterization also (June 2024). It is also of note that the patient does have history of repeated DVTs and also pancytopenia/GI bleedings. He has not been on any as outpatient which also could have contributed to the clinical picture. Acute arrest Rule out PE s/p Defibrillation secondary to V-fib/Vtach (in June 2024) Encephalopathy? Baseline pulmonary hypertension Baseline systolic heart failure Status post BiV-ICD End-stage renal disease, Noncompliant with medication, followups and hemodialysis Pancytopenia History of GI bleeding Cardiac suggestion for management: Manage in ICU/[facility]AGGS Follow-up electrolytes and kidney function tests and correct abnormalities Echocardiogram Request for BNP Start the patient on amiodarone/mexiletine Request for interrogation of the Medtronic BiV-ICD Request for D-dimer, if abnormal request for CT angio of the lungs and also venous Doppler of upper and lower extremities Consider starting Eliquis at 2.5 mg p.o. b.i.d. Thank you for consultation Further evaluation and management depends on the above and clinical course A total of 75 minutes was spent reviewing the patient record, examining the patient, making a diagnostic and therapeutic plan, discussing this plan with medical personnel, following up on diagnostic studies and following the patient for clinical stability excluding any and all procedures. At least 50% of this time was spent in direct, [id number] contact. Thank you for allowing me to participate in this patient's care. Further recommendations will depend on patient's clinical course. Please do not hesitate to contact me if you have any questions or concerns. This medical document was created using electronic medical record system with Pose computerized dictation system. Although this document has been carefully reviewed, there may still be some phonetic and typographical errors. These areas are purely typographical due to the imperfection of the software programs, and do not reflect any compromise in the patient's medical care. Plan discussed with: Other (nurse) SUSHMA WALKER MD Aug 10, 2024 10:36
--- NOTE | 2024-08-10 10:46 | ECG ---
[facility] Test Date: 2024-08-08 Test Time: 17:18:12 Pat Name: SUSHMA THAYER Department: ED Room: 0263 A Gender: M Professional Architect: [email or web address] : 1960 Requested By: CHERI STEVENSON Order Number: [id number] Reading MD: Josh Holliday Measurements Intervals [place] Rate: 75 P: 99 RI: 138 QRS: 210 QRSD: 197 T: 104 QT: 453 QTc: 506 Interpretive Statements Incomplete analysis due to missing data in precordial lead(s) Atrial-ventricular dual-paced rhythm No further analysis attempted due to paced rhythm Missing lead(s): V6 Electronically Signed On 08-12-2024 21:58:49 PDT by Josh Holliday Please click the below link to view image of tracing.
[2024-08-10] MEDS: PANTOPRAZOLE 40 MG/10 ML VIAL INJ IV SCH (11:37)
--- NOTE | 2024-08-10 11:58 | DVHPNRES ---
Progress Note Date Seen: Aug 10, 2024 Resident Creating Document: KEILY GREGG Medical Necessity Reason Pt with a Central, PICC or Fol: Yes The following are medically ne: Central Line, Lynne Catheter Reason for lynne catheter: Strict I&O Subjective Review of Systems HPI-patient is 64-year-old male patient with a history of nonischemic cardiomyopathy, chronic systolic heart failure, pacemaker, h/o DVT DVT- in the left subclavian vein, hypertension, hyperlipidemia, type 2 diabetes mellitus, Anemia, [employer] BiV-ICD,CAD- prior myocardial infarction, pulmonary hypertension, ESRD on hemodialysis TTS presented to the ER with cardiopulmonary arrest. Information was gathered from reviewing the chart as patient is a poor historian. Per documentation patient completed his dialysis treatment and was being transported back to [place] [facility] acute care when he became unresponsive EN route and severe was initiated by EMS. Mavis allison was called and Patient was emergently intubated and on arrival to the emergency department. Revealed WBC 3.4, hemoglobin 10.1, platelet 139, 135, potassium 4.4, anion gap 7, BUN 9, creatinine 2.39, lactic acid 4.8> 3.4, sodium 1.8, serum bilirubin 0.06, troponin I 42>> 41 50, with a BNP 416, albumin 3.2. Urinalysis negative for UTI. CT chest on 08/08/2024- Right internal jugular catheter in place in the superior vena cava. Dual-chamber biventricular pacemaker in place with pulse generator over the left chest, Right lower lobe infiltrate and effusion worse than 07/30/2024 tubing overlying the lower right lung field correlate for possible chest tube placement. CT head no acute intracranial abnormality. Patient was previously admitted at [facility] on July 29 2024 -due to blood in the stool/melena/GI bleeding -angiodysplasia/divertic dise/ possibl proctitis acute on chronic hypoxic respiratory failure June 27, 2024-cardiac arrest May 18, 2024, -shortness of breaths with the acute hypoxic respiratory failure due to fluid overload April 16, 2024-shortness of breaths with acute chronic heart failure April 07, 2024-shortness of breaths and generalized weakness Reviewing chart from previous admission Echocardiogram on 06/29/2024 -revealed LVEF 20%, right ventricular enlargement with dysfunction, biatrial enlargement. On 06/29/2024- CT angio showed no pulmonary embolism but a large right and small left pleural effusion with associated bilateral atelectasis and consolidation. Patchy ground-glass opacities could represent pulmonary edema or an infectious / inflammatory process. Mediastinal lymphadenopathy similar to prior. Overall appearance is worse compared to prior exam. 06/29/24 CT head : No acute intracranial pathology. Cortical atrophy greater on the left. 07/01/2024 Quintoin catheter was placed 07/05/2024-patient was extubated On 07/09/2024-Doppler study of the left upper extremity revealed thrombus in the left subclavian vein On 07/09/20246545-[id number] thoracentesis removed 1.3 L of straw-colored fluid. 07/10/2024-Doppler study of the right upper extremity revealed-Thrombus is seen at the mid and distal aspect of right upper extremity fistula. Thrombus is seen in the cephalic vein. 07/17/24 tunneled catheter placed the right axillary vein PMH-nonischemic cardiomyopathy, chronic systolic heart failure, pacemaker, h/o DVT DVT hypertension, hyperlipidemia, type 2 diabetes mellitus, Anemia, AICP,CAD- prior myocardial infarction, pulmonary hypertension, ESRD on hemodialysis TTS PSH- Dialysis access, cardiac stents, pacemaker Allergy- NKDA Personal History/ Social History- Patient was seen today for clinical evaluation. Less than chart reviewed. Patient On mechanical ventilator Ordered for CPAP exercise Patient's right upper chest Kenny catheter and right upper arm fistula Right femoral central line 08/08/24 Respiratory culture no growth 08/08/2024- Blood culture no growth Discontinue ceftriaxone ordered Zosyn Plan is to do a CPAP trial a.m. Ordered heparin Discontinued Eliquis/Lasix/digoxin Patient on mechanical ventilation. Vitals overnight revealed BP-87 137/33 -58, 60 -82, -temperature 97.7 98.8 I/O-intake 547, output 70, positive balance 477 Labs Revealed ABG pH 7.52, pCO2 35.5, PO2 81.0, bicarbonate 28.5 WBC 3.4> 4.0> 3.3 Hemoglobin-11.1> 9.1> 9.2 Platelet 139> 112> 124 Sodium 135> 132> 134 Potassium 4.4> 3.8> 4.1 BUN 9> 15> 20 Serum creatinine 2.39> 2.86> 3.66 Magnesium 1.8>> 1.8 1.9 Calcium 9> 8.3> 8.9 Supervisor Winter called and talked to Didi, [phone], discussed patient's current medical condition, plan of care and answered her questions. Objective vital signs Vital Sign Date Time Temp Pulse Resp B/P (MAP) Pulse Ox O2 Delivery O2 Flow Rate FiO2 08/10/24 11:37 69 16 100/58 (72) 97 30 08/10/24 10:15 98.8 209.8 08/10/24 08:00 Mechanical Ventilator+ 08/08/24 19:45 20 Total Intake and Output 08/09/24 08/09/24 08/10/24 15:00 23:00 07:00 Intake Total 391.50 ml 64.25 ml 77.25 ml Output Total 50 ml 20 ml Balance 391.50 ml 14.25 ml 57.25 ml medications Current Medications Medications Dose Ordered Sig/Colleen Route Start Time Stop Time Status Last Admin Dose Admin Midazolam HCl 50 ml @ 1 mls/hr Q24H IV 08/08/24 17:45 08/09/24 19:32 2 MLS/HR Epinephrine HCl 250 ml @ 7.5 mls/hr Q24H IV 08/08/24 18:15 08/09/24 06:23 11.25 MLS/HR Ceftriaxone Sodium 50 ml @ 100 mls/hr DAILY@09 IV 08/09/24 09:00 08/10/24 09:28 100 MLS/HR Azithromycin 250 ml @ 125 mls/hr DAILY IV 08/09/24 10:00 08/10/24 11:38 125 MLS/HR Ondansetron HCl 4 mg Q4HP PRN IV 08/08/24 19:00 Acetaminophen 650 mg Q6HP PRN PO 08/08/24 19:00 Nitroglycerin 0.4 mg Q5MINP PRN SL 08/08/24 19:00 Morphine Sulfate 2 mg Q30M PRN IV 08/08/24 19:00 Furosemide 40 mg DAILY IV 08/09/24 10:00 08/10/24 11:37 40 MG Digoxin 125 mcg DAILY IV 08/09/24 10:00 08/10/24 11:37 125 MCG Pantoprazole Sodium 40 mg DAILY IV 08/10/24 10:00 08/10/24 11:37 40 MG Fentanyl Citrate 250 ml @ 2.5 mls/hr Q24H IV 08/09/24 12:45 08/09/24 18:26 2.5 MLS/HR Norepinephrine Bitartrate 250 ml @ 3.75 mls/hr Q24H IV 08/09/24 13:30 08/09/24 14:52 3.75 MLS/HR Amino Acid Protein 30 ml DAILY PO 08/10/24 10:00 Enteral Nutritional Formula 27.5 gm BID PO 08/09/24 22:00 Propofol 100 ml @ 1.98 mls/hr Q24H IV 08/09/24 18:45 Amiodarone HCl 200 mg Q12HR GT 08/10/24 22:00 Mexiletine HCl 150 mg Q8HR NG 08/10/24 14:00 Examination General examination- bruise on the chest and arms HEENT- PEERLA, no acute nasal discharge Cardiovascular- S1-S2 audible, rate and rhythm regular, no murmur Respiratory- CTAB, no wheeze or rhonchi Gastrointestinal-nontender, bowel sound+. Nondistended Musculoskeletal-no acute joint swelling or tenderness or redness extremity- bilateral upper arm swelling, Bruise on the chest and arms Skin-bruise on the chest and arms laboratory and microbiology Laboratory Tests 08/10/24 04:58 Test 08/10/24 04:58 Range/Units Serum Glucose 82 74-106 mg/dL Microbiology Date/Time Source Procedure Growth Status 08/08/24 21:20 Sputum Gram Stain - Final Resulted 08/08/24 21:20 Sputum Respiratory Culture - Preliminary Resulted 08/08/24 18:04 Blood Blood Culture - Preliminary NO GROWTH AFTER 24 HOURS OF INCUBATION. Resulted Problem List/Assessment/Plan Problem List/Assessment/Plan Assessment and plan #Neurology -metabolic encephalopathy on ventilation acute hypoxic brain injury/septic shock -patient on mechanical ventilator #Cardiovascular -status post cardiac arrest -septic shock likely due to pneumonia -nonischemic cardiomyopathy EF 20% -HFrEF -BiV-ICD -DVT -history of hypertension -hyperlipidemia -CAD history of AL -continue mexiletine 150 mg Q 8 H -continue amiodarone 200 mg q.12 hours -continuing heparin as prescribed #Respiratory -acute hypoxic respiratory failure -pneumonia Gram-positive versus Gram-negative -pulmonary hypertension -08/08/24 Respiratory culture no growth -08/08/2024- Blood culture no growth -continue Zosyn as prescribed #Gastrointestinal -on PPI prophylaxis #Genitourinary/renal -CKD on hemodialysis TTS #Hematology -anemia of chronic disease -pancytopenia - monitor CBC #Infectious -septic shock likely due to pneumonia #Metabolic/endocrine -diabetes mellitus type 2 -lactic acidosis -hyponatremia likely dilutional #Skin -bruise on the chest and arms # malnutrition Central line- right femoral ETT Lynne's catheter 07/01/2024 Quintoin catheter was placed -drips-midazolam, fentanyl, Levophed Goals of care, Code status ; discussed with >15 minutes PUD prophylaxis: Pantoprazole DVT prophylaxis: Heparin Plan discussed with Dr. Zhong , nursing staff, sister Didi Total time spent on patient evaluation, chart review, total critical time spent including monitoring mechanical ventilation, excluding procedure 84 minutes Plan discussed with: Other (RN,sister) Dietary Evaluation Review Recommendations by RD: Protein Supplementation Comments: 1) Initiate Pro-Stat @ 30 mL qd 2) Initiate Ovi @ 1 pk bid 3) Initiate Nephro-Eri @ 1 tb qd 4) If patient remains NPO > 7 days, consider EN/TPN to meet at least 75% of estimated daily needs 5) Advance to renal standard diet when medically feasible, pending FREIGHT LOADING SUPERVISOR approval 4) Continue to monitor I&O, labs, and skin integrity Expected Outcomes/Goals: 1) patient to receive nutritional support within 7 days 2) labs and wound to improve 3) diet to advance 4) f/u in 2-3 days Date of Service: Aug 10, 2024 Billing Provider: BELTRAN ZHONG MD Common Visit Codes: 47367-[id number] CARE 30-74 MIN, [id number] CARE-EACH +30MIN KEILY GREGG RESIDENT Aug 10, 2024 11:58 BELTRAN ZHONG MD Aug 11, 2024 15:53
--- NOTE | 2024-08-10 13:27 | DVH ---
US BI LAT UPPER DVT 08/10/2024 12:27 PM Clinical History: Elevated D Dimer with history of thrombi Comparison: US LT UPPER DVT on DOS: 07/09/24, US LT UPPER DVT on DOS: 05/18/24 TECHNIQUE: Duplex Doppler evaluation of the venous systems of the upper extremities including color D oppler and spectral/pulsed waveform analysis was performed. FINDINGS: RIGHT UPPER EXTREMITY: The internal jugular vein demonstrates appropriate compressibility and waveform variability . The subclavian vein is patent on color Doppler evaluation without intraluminal thrombus and demonstra doreen waveform variability . The visualized portion of the brachiocephalic vein is patent on color Doppler evaluation without intr aluminal thrombus and demonstrates waveform variability . The axillary vein demonstrates appropriate compressibility and waveform variability . The brachial veins demonstrate appropriate compressibility and patency on Doppler evaluation. The basilic vein demonstrates appropriate compressibility and patency on Doppler evaluation. The cephalic vein is moderately distended with a partially occlusive thrombus that measures approxima tely 4.2 cm in length 1 cm in thickness. Subcutaneous edema noted in the forearm and arm. LEFT UPPER EXTREMITY: The internal jugular vein demonstrates appropriate compressibility and waveform variability . The subclavian vein is patent on color Doppler evaluation without intraluminal thrombus and demonstra doreen waveform variability . The visualized portion of the brachiocephalic vein is patent on color Doppler evaluation without intr aluminal thrombus and demonstrates waveform variability . The axillary vein demonstrates appropriate compressibility and waveform variability . The brachial veins demonstrate appropriate compressibility and patency on Doppler evaluation. The basilic vein demonstrates appropriate compressibility and patency on Doppler evaluation. The cephalic vein demonstrates appropriate compressibility and patency on Doppler evaluation. IMPRESSION: Right upper extremity: Occlusive thrombophlebitis of the cephalic vein. No evidence of DVT. Moderate subcutaneous edema noted. Left upper extremity: No evidence of DVT or SVT.
--- NOTE | 2024-08-10 13:36 | DVH ---
Bilateral lower extremity venous duplex Clinical History: Pain Comparison: None Technique: Duplex Doppler evaluation of the deep venous systems of both lower extremities from the common femora l veins to the popliteal veins including color Doppler and spectral/pulsed waveform analysis was perf ormed. Findings: RIGHT SIDE: The common femoral vein demonstrates appropriate compressibility and waveform variability. There is compressibility/patency of the great saphenous vein at the proximal thigh. The femoral vein demonstrates appropriate compressibility and waveform variability. The deep femoral vein demonstrates appropriate compressibility and waveform variability. The popliteal vein demonstrates appropriate compressibility and waveform variability. There is normal compressibility at the tibioperoneal trunk. LEFT SIDE: The common femoral vein demonstrates appropriate compressibility and waveform variability. There is compressibility/patency of the great saphenous vein at the proximal thigh. The femoral vein demonstrates appropriate compressibility and waveform variability. The deep femoral vein demonstrates appropriate compressibility and waveform variability. The popliteal vein demonstrates appropriate compressibility and waveform variability. There is normal compressibility at the tibioperoneal trunk. Impression: No right or left femoropopliteal venous thrombosis.
[2024-08-10 15:05] LABS: Rapid Influenza A Negative (Negative); Rapid Influenza B Negative (Negative)
[2024-08-10 15:06] LABS: COVID19 ANTIGEN SOFIA FIA NEGATIVE (NEGATIVE)
[2024-08-10] MEDS: Pro-Stat SF 30ml Vanilla PO SCH (15:47)
[2024-08-10] MEDS: PIPERACILLIN-TAZOB 3.375GM 100 ML IV ONE (16:45)
[2024-08-10] MEDS: MEXILETINE HYDROCHLORIDE 150 MG CAP NG SCH (16:45)
--- NOTE | 2024-08-10 17:43 | DVHPN2 ---
Progress Note - Dictate Date Seen: Aug 10, 2024 Medical Necessity Reason Pt with a Central, PICC or Fol: Yes The following are medically ne: Central Line, Lynne Catheter Reason for lynne catheter: Strict I&O vital signs Vital Sign Date Time Temp Pulse Resp B/P (MAP) Pulse Ox O2 Delivery O2 Flow Rate FiO2 08/10/24 17:30 98.6 67 16 107/58 (74) 99 209.5 08/10/24 16:21 30 08/10/24 16:00 Mechanical Ventilator+ 08/08/24 19:45 20 Total Intake and Output 08/09/24 08/09/24 08/10/24 15:00 23:00 07:00 Intake Total 391.50 ml 64.25 ml 83.50 ml Output Total 50 ml 20 ml Balance 391.50 ml 14.25 ml 63.50 ml medications Current Medications Medications Dose Ordered Sig/Colleen Route Start Time Stop Time Status Last Admin Dose Admin Midazolam HCl 50 ml @ 1 mls/hr Q24H IV 08/08/24 17:45 08/09/24 19:32 2 MLS/HR Ondansetron HCl 4 mg Q4HP PRN IV 08/08/24 19:00 Acetaminophen 650 mg Q6HP PRN PO 08/08/24 19:00 Nitroglycerin 0.4 mg Q5MINP PRN SL 08/08/24 19:00 Morphine Sulfate 2 mg Q30M PRN IV 08/08/24 19:00 Pantoprazole Sodium 40 mg DAILY IV 08/10/24 10:00 08/10/24 11:37 40 MG Fentanyl Citrate 250 ml @ 2.5 mls/hr Q24H IV 08/09/24 12:45 08/09/24 18:26 2.5 MLS/HR Norepinephrine Bitartrate 250 ml @ 3.75 mls/hr Q24H IV 08/09/24 13:30 08/09/24 14:52 3.75 MLS/HR Amino Acid Protein 30 ml DAILY PO 08/10/24 10:00 08/10/24 15:47 30 ML Enteral Nutritional Formula 27.5 gm BID PO 08/09/24 22:00 08/10/24 15:47 27.5 GM Propofol 100 ml @ 1.98 mls/hr Q24H IV 08/09/24 18:45 Amiodarone HCl 200 mg Q12HR GT 08/10/24 22:00 Mexiletine HCl 150 mg Q8HR NG 08/10/24 14:00 08/10/24 16:45 150 MG Piperacillin Sod/ Tazobactam Sod 100 ml @ 25 mls/hr Q12HR IV 08/10/24 22:00 Heparin Sodium/ Dextrose 250 ml @ 14 mls/hr [id number] IV 08/10/24 16:45 objective Gen: sedated , and intubated HEENT: NC, AT Lungs: decreased breath sounds Rt lung Cardiac: RRR, no murmur Abd: soft, no tenderness Neuro: sedated Ext: no edema laboratory and microbiology Laboratory Tests 08/10/24 04:58 Test 08/10/24 04:58 Range/Units Serum Glucose 82 74-106 mg/dL Assessment/Plan ESRD on HD s/p cardiac arrest with ROSC Acute hypoxic respiratory failure s/p intubation on mechanical ventilator Sepsis secondary to pneumonia Hyponatremia Lactic acidosis Hypoalbuminemia HTN Atrial fibrillation CAD s/p stent s/p pacemaker chronic diastolic CHF Pancytopenia Plan: Next HD on Saturday [facility] schedule: TTS Cleared from Nephrology perspective to have CT with contrast Continue IV antibiotics NAZANIN post HD as needed. goal Hb: 10-11 g/dl Vasopressors to maintain MA{P > 65 mmHg Pulmonary for vent management Dietary Evaluation Review Recommendations by RD: Protein Supplementation Comments: 1) Initiate Pro-Stat @ 30 mL qd 2) Initiate Ovi @ 1 pk bid 3) Initiate Nephro-Eri @ 1 tb qd 4) If patient remains NPO > 7 days, consider EN/TPN to meet at least 75% of estimated daily needs 5) Advance to renal standard diet when medically feasible, pending FUEL CELL ASSEMBLER approval 4) Continue to monitor I&O, labs, and skin integrity Expected Outcomes/Goals: 1) patient to receive nutritional support within 7 days 2) labs and wound to improve 3) diet to advance 4) f/u in 2-3 days Plan discussed with: SAVANNAH Varela MD Aug 10, 2024 17:43
[2024-08-10] MEDS: HEPARIN DRIP/D5W 100UNITS/ML 250 ML IV SCH (18:27)
[2024-08-10 19:00] LABS: Basophils # (auto) 0 10 ^3/uL (0-0.2); Basophils % (auto) 1.2 % (0.0-2.0); Eosinophils # (auto) 0.2 10 ^3/uL (0-0.8); Eosinophils % (auto) 6.2 % (0.0-7.0); Hematocrit 29.6 % (41.0-53.0); Hemoglobin 9.7 g/dL (13.5-17.5); Lymphocytes # (auto) 0.3 10 ^3/uL (0.4-5.4); Lymphocytes % (auto) 9.8 % (10.0-50.0); Mean Corpuscular Hemoglobin 32.5 pg (28.0-32.0); Mean Corpuscular Hgb Conc. 32.8 g/dL (32.0-36.0); Mean Corpuscular Volume 99.1 fL (80.0-100.0); Monocytes # (auto) 0.4 10 ^3/uL (0-1.3); Monocytes % (auto) 11.5 % (0.0-12.0); Neutrophils # (auto) 2.4 10 ^3/uL (1.6-8.6); Neutrophils % (auto) 71.3 % (37.0-80.0); Platelet Count (auto) 125 10^3/uL (140-450); Red Blood Cells 2.99 10^6/uL (4.5-5.90); White Blood Cell 3.4 10^3/uL (4.4-10.8)
[2024-08-10 19:17] LABS: INR 1.14 (0.9-1.15); Partial Thromboplastin Time 35.9 SEC (24.5-34.5); Prothrombin Time 11.9 sec (9.3-11.8)
[2024-08-10 19:18] LABS: Red Cell Distribution Width 21.2 % (11.8-14.3)
[2024-08-10] MEDS ORDERED: APIXABAN 2.5 MG TAB NG SCH (22:00)
[2024-08-10] MEDS: AMIODARONE HCL 200 MG TAB GT SCH (22:12)
[2024-08-10] MEDS: PIPERACILLIN-TAZOB 3.375GM 100 ML IV SCH (22:13)
[2024-08-10] MEDS: IOHEXOL 350 MG/ML 100ML IJ ONE (23:46)
[2024-08-11] VITALS (99 sets, daily range): BP systolic 86–158; BP diastolic 44–103; PULSE 60–139; RESP 9–28; TEMP 97.7–99.5; O2SAT 82–100
[2024-08-11 01:19] LABS: INR 1.15 (0.9-1.15)
[2024-08-11 01:22] LABS: Partial Thromboplastin Time > 139.0 SEC (24.5-34.5)
[2024-08-11] MEDS: HEPARIN DRIP/D5W 100UNITS/ML 250 ML IV SCH ×3 (02:41→23:58)
--- NOTE | 2024-08-11 03:29 | DVH ---
INDICATION: Elevated D dimer with history of thrombi TECHNIQUE: Multidetector CTA of the chest was performed of the chest with 100 cc of intravenous contr ast. PULMONARY ANGIOGRAPHY PROTOCOL was utilized using a bolus-tracking technique centered on the pete n pulmonary artery. Axial, coronal and sagittal multiplanar and MIP reformats were performed. Radiation Dose Information: CT Dose: CTDI volume is 23.68 mGy. Dose-length product is 907.97 mGy*cm The dose indicators for CT are the volume Computed Tomography (CT) Dose Index (CTDIvol) and the Dose Length Product (DLP), and are measured in units of mGy and mGy-cm, respectively. These indicators are not patient dose, but values generated from the CT scanner acquisition factors. The report includes radiation exposure data for exposures received during this examination. Comparison: CT CT ANGIO CHEST CONTRAST on DOS: 06/29/24, CT CT ANGIO CHEST CONTRAST on DOS: 05/19/24 Findings: Evaluation of the pulmonary artery demonstrates no evidence of focal filling defects to suggest pulmo nary embolus. The examination is mildly limited secondary to patient condition and artifact related to left cardiac device. Approximately 2 cm from the elizabeth. Coronary artery calcifications. The thor acic aorta appears normal in caliber and contour. There is cardiomegaly. No sizable pericardial effu wandy. There is a large right pleural effusion. Consolidation of the left lung base may represent atel ectasis versus infectious process. Mediastinal lymph nodes remain prominent measuring up to 1.1 cm in short axis. Diffuse centrilobular emphysema. Visualized portions of the upper abdomen demonstrate hepatic cysts. There is vicarious excretion of contrast into the gallbladder. Multiple bilateral renal lesions favoring cysts. IMPRESSION: 1. No evidence of pulmonary embolus. 2. Large right pleural effusion. Consolidation of the left lung base may represent infectious process or atelectasis. 3. Diffuse centrilobular emphysema HS:Y
--- NOTE | 2024-08-11 05:17 | DVH ---
EXAM: XR Chest, 1 View CLINICAL INDICATION: CHF TECHNIQUE: Frontal view of the chest. COMPARISON: XY CHEST XRAY 1 VIEW on DOS: 08/10/24, XY CHEST PORTABLE on DOS: 08/09/24, XY CHEST XRAY 1 VIEW on DOS: 08/08/24, XY CHEST XRAY 1 VIEW on DOS: 08/08/24, XY CHEST PORTABLE on DOS: 07/30/24 FINDINGS: LUNGS AND PLEURAL SPACES: Bibasilar atelectasis or pneumonia. Pulmonary venous congestion. No pne umothorax. HEART: Unremarkable. No cardiomegaly. MEDIASTINUM: Unremarkable. Normal mediastinal contour. BONES/JOINTS: Unremarkable. No acute fracture. TUBES, LINES AND DEVICES: Left-sided cardiac pacemaker. Stable tubes and lines. OTHER FINDINGS: . .. IMPRESSION: 1. Bibasilar atelectasis or pneumonia. 2. Pulmonary venous congestion.
[2024-08-11 05:28] LABS: Basophils # (auto) 0.1 10 ^3/uL (0-0.2); Eosinophils # (auto) 0.2 10 ^3/uL (0-0.8); Eosinophils % (auto) 6.5 % (0.0-7.0); Hematocrit 27.3 % (41.0-53.0); Hemoglobin 9.3 g/dL (13.5-17.5); Lymphocytes # (auto) 0.4 10 ^3/uL (0.4-5.4); Lymphocytes % (auto) 11.9 % (10.0-50.0); Mean Corpuscular Hemoglobin 33.2 pg (28.0-32.0); Mean Corpuscular Hgb Conc. 34.1 g/dL (32.0-36.0); Mean Corpuscular Volume 97.2 fL (80.0-100.0); Monocytes # (auto) 0.4 10 ^3/uL (0-1.3); Monocytes % (auto) 12.1 % (0.0-12.0); Neutrophils # (auto) 2.3 10 ^3/uL (1.6-8.6); Neutrophils % (auto) 67.5 % (37.0-80.0); Nucleated Red Blood Cells % 0.1 %; Platelet Count (auto) 129 10^3/uL (140-450); Red Blood Cells 2.81 10^6/uL (4.5-5.90); Red Cell Distribution Width 20.5 % (11.8-14.3); White Blood Cell 3.5 10^3/uL (4.4-10.8)
[2024-08-11 05:34] LABS: Alkaline Phosphatase 94 U/L (46-116); Anion Gap 6 (5-15); Aspartate Aminotransferase 13 U/L (13-40); Bilirubin, Total 0.5 mg/dL (0.2-1.0); Carbon Dioxide 30 mmol/L (20-31); Glucose 92 mg/dL (74-106); Magnesium 1.9 mg/dL (1.6-2.6); Potassium 4.3 mmol/L (3.5-5.1)
[2024-08-11 05:43] LABS: Alanine Aminotransferase < 9 U/L (7-40); Albumin 2.8 g/dL (3.2-4.8); Blood Urea Nitrogen 35 mg/dL (9-23); Chloride 97 mmol/L (98-107); Sodium 133 mmol/L (136-145); Total Protein 5.1 g/dL (5.7-8.2)
--- NOTE | 2024-08-11 06:55 | DVHSR ---
APPROVED REPORT EXAM: Two-dimensional and M-mode echocardiogram with Doppler and color Doppler. Blood Pressure: 114/65 mmHg INDICATION S/P cardiac arrest RISK FACTORS Height: 74, Weight: 165 DIMENSIONS LVDd3.9 (3.8-5.7cm)LA (2D) (1.9-4.0cm)Aortic Root3.9 (2.0-3.7cm) LVDs3.4 (2.5-4.0cm)LA (MM) (1.9-4.0cm)Aortic Cusp Exc2.3 (1.5-2.0cm) EF (%) 25.0 (55-70%)Rt. Atrium (1.9-4.0cm)Asc. Aorta cm Mitral Valve MitralMitral Stenosis E/A ratio0.02D MVAcm2 Aortic Valve Aortic ValveAortic Stenosis V10.71m/Marcelino Mean GR.2mmHg V20.98m/Marcelino Peak GR.4mmHg LVOT Diameter2.0 (1.8-2.4cm)Doppler AVA2.27cm2 AI P 1/2 Ilvv648.55ms Tricuspid Valve TR Velocity3.25m/s [id number] Other Information Technically limited study due to patient on a vent. Conclusion Left ventricle: Concentric left ventricular hypertrophy was seen. LVEF was around 25%. Septal flat tening was seen. Paradoxical septal motion was observed. Right ventricle was dilated with reduced systolic function. Both atria were dilated. Pacing wire we re seen right-sided chambers. Aortic valve was not well visualized. There was mild aortic insufficiency. There was no aortic sten osis. There was mild mitral regurgitation. There was mild to moderate tricuspid regurgitation. Pul monary valve was not well visualized. Right ventricular systolic pressure was assessed at 52 mm Hg. There was no pericardial effusion.
[2024-08-11] MEDS: SODIUM CHL 0.9% 1000 ML BAG XX ONE (07:00)
--- NOTE | 2024-08-11 07:01 | DVHPN2 ---
Progress Note - Dictate Date Seen: Aug 11, 2024 Medical Necessity Reason Pt with a Central, PICC or Fol: Yes The following are medically ne: Central Line, Lynne Catheter Reason for lynne catheter: Strict I&O vital signs Vital Sign Date Time Temp Pulse Resp B/P (MAP) Pulse Ox O2 Delivery O2 Flow Rate FiO2 08/11/24 06:17 63 16 130/61 (84) 100 30 08/11/24 05:15 99.3 210.7 08/11/24 04:00 Mechanical Ventilator+ Total Intake and Output 08/10/24 08/10/24 08/11/24 15:00 23:00 07:00 Intake Total 390.00 ml 501.98 ml 359.50 ml Output Total 50 ml 150 ml Balance 390.00 ml 451.98 ml 209.50 ml medications Current Medications Medications Dose Ordered Sig/Colleen Route Start Time Stop Time Status Last Admin Dose Admin Midazolam HCl 50 ml @ 1 mls/hr Q24H IV 08/08/24 17:45 08/09/24 19:32 2 MLS/HR Ondansetron HCl 4 mg Q4HP PRN IV 08/08/24 19:00 Acetaminophen 650 mg Q6HP PRN PO 08/08/24 19:00 Nitroglycerin 0.4 mg Q5MINP PRN SL 08/08/24 19:00 Morphine Sulfate 2 mg Q30M PRN IV 08/08/24 19:00 Pantoprazole Sodium 40 mg DAILY IV 08/10/24 10:00 08/10/24 11:37 40 MG Fentanyl Citrate 250 ml @ 2.5 mls/hr Q24H IV 08/09/24 12:45 08/09/24 18:26 2.5 MLS/HR Norepinephrine Bitartrate 250 ml @ 3.75 mls/hr Q24H IV 08/09/24 13:30 08/10/24 23:07 11.25 MLS/HR Amino Acid Protein 30 ml DAILY PO 08/10/24 10:00 08/10/24 15:47 30 ML Enteral Nutritional Formula 27.5 gm BID PO 08/09/24 22:00 08/10/24 15:47 27.5 GM Propofol 100 ml @ 1.98 mls/hr Q24H IV 08/09/24 18:45 08/10/24 20:39 1.98 MLS/HR Amiodarone HCl 200 mg Q12HR GT 08/10/24 22:00 08/10/24 22:12 200 MG Mexiletine HCl 150 mg Q8HR NG 08/10/24 14:00 08/11/24 06:24 150 MG Piperacillin Sod/ Tazobactam Sod 100 ml @ 25 mls/hr Q12HR IV 08/10/24 22:00 08/10/24 22:13 25 MLS/HR Heparin Sodium/ Dextrose 250 ml @ 11 mls/hr [id number] IV 08/11/24 02:30 08/11/24 02:41 11 MLS/HR laboratory and microbiology Laboratory Tests 08/11/24 04:40 Test 08/11/24 04:40 Range/Units Serum Glucose 92 74-106 mg/dL Assessment/Plan Patient is a 64-year-old gentleman who was brought to the hospital for arrest. Reportedly the patient had hemodialysis and was being taken back, when he arrested at transport vehicle and was brought to the hospital. Reportedly EMS was performing CPR prior to arrival to the hospital which was continued in emergency room. Patient is intubated and is being managed in [facility]/ICU. Cardiology is involved for cardiac aspects of care. Patient is known to our practice from before. It is of note that the patient was in the hospital in mid June up to early July for an episode of cardiac arrest/VFib. At that time he was started on amiodarone/mexiletine. It is also of note that the patient was brought back later in July and for some reason the antiarrhythmic drugs were not continued (was not seen by Cardiology at that point). Review of the transfer notes reveals that he has not been taking the above noted antiarrhythmics. It is also of note that the patient did have angiogram in late June which revealed patent stents and no indication for intervention. Patient does have a Medtronic BiV-ICD. He does have baseline history of noncompliance. He also has history of repeated GI bleedings and also DVT. Prior to this arrival, the patient was not on any anticoagulation (was it held because of GI bleeding/pancytopenia?). Intubated. No JVD. Mucosa is pink and wet. No carotid bruit. Lungs: Scattered rhonchi in the lungs is heard. Cardiac: Regular, systolic murmur 3/6 in the apex is heard. The site for ICD implantation looks clean with no erythema/ecchymosis/tenderness. Abdomen is soft. Bowel sound is positive. Extremities reveal 3+ edema bilaterally in lower and upper ext. 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 Echocardiogram of April 08, 2024 had reported four-chamber dilatation, ejection fraction of 20%, [id number]-gkmbilwn MR/TR and right ventricular systolic pressure of 75 mm Hg Echocardiogram of May 19, 2024 had reported four-chamber dilatation, ejection fraction of 35%, D shaped septum, pulmonary hypertension, mobile interatrial septum, sgef-ys-ciuztony aortic insufficiency, mild mitral regurgitation, moderate TR and right ventricular systolic pressure of 80 mm Hg Echocardiogram of June 28, 2024 reported ejection fraction of 20%, septal flattening and biatrial enlargement Left heart catheterization of July 06, 2024 revealed no obstructive coronary artery disease. There was patent stents in LAD/RCA. WBC: 3.4 - 4.0 - 3.3 - 3.4 - 3.5 Platelet: 139 - 112 - 124 - 125 - 129 Hemoglobin: 11.1 - 9.1 - 9.2 - 9.7 - 9.3 Creatinine: 2.39 - 2.86 - 3.66 - 4.35 Potassium: 4.4 - 3.8 - 4.1 - 4.3 Troponin (high sensitive): 42 - 41 - 50 BNP: 416.54 D-Dimer: 3.80 Chest x-ray revealed: IMPRESSION: 1. Endotracheal tube in place 9.3 cm above the elizabeth. 2. Right internal jugular catheter in place in the superior vena cava 3. Enteric tube at the gastroesophageal junction recommend advancement 3-4 inches. 4. Dual-chamber biventricular pacemaker in place with pulse generator over the left chest, 5. Right lower lobe infiltrate and effusion worse than 07/30/2024 tubing overlying the lower right lung field correlate for possible chest tube placement. Repeat chest x-ray revealed: IMPRESSION: 1. Endotracheal tube has been repositioned now 7.6 cm above the elizabeth. Repeat chest x-ray revealed: IMPRESSION: 1. Endotracheal tube has been repositioned now 7.6 cm above the elizabeth. Repeat chest x-ray revealed: IMPRESSION: Bibasilar atelectasis or pneumonia. Repeat chest xry revealed: IMPRESSION: 1. Bibasilar atelectasis or pneumonia. 2. Pulmonary venous congestion. CT of the head revealed: IMPRESSION: 1. No acute intracranial abnormality. CTA of lungs revealed: IMPRESSION: 1. No evidence of pulmonary embolus. 2. Large right pleural effusion. Consolidation of the left lung base may represent infectious process or atelectasis. 3. Diffuse centrilobular emphysema Venous duplex of lower ext revealed: Impression: No right or left femoropopliteal venous thrombosis. Venous duplex of upper ext revealed: IMPRESSION: Right upper extremity: Occlusive thrombophlebitis of the cephalic vein. No evidence of DVT. Moderate subcutaneous edema noted. Left upper extremity: No evidence of DVT or SVT. Telemetry reveals paced rhythm Echocardiogram reported: Left ventricle: Concentric left ventricular hypertrophy was seen. LVEF was around 25%. Septal flattening was seen. Paradoxical septal motion was observed. Right ventricle was dilated with reduced systolic function. Both atria were dilated. Pacing wire were seen right-sided chambers. Aortic valve was not well visualized. There was mild aortic insufficiency. There was no aortic stenosis. There was mild mitral regurgitation. There was mild to moderate tricuspid regurgitation. Pulmonary valve was not well visualized. Right ventricular systolic pressure was assessed at 52 mm Hg. There was no pericardial effusion. ICD interrogation: Medtronic BiV-ICD interrogation: Remaining battery: 3.8 years; DDD: 80/130; Pacing impedance: 399 A/361 RV Ohms; Defibrillation independence: RV = 39 Ohms; Repeated shocks for VT/VF Patient is a 64-year-old gentleman who presented with post arrest. It is of note that the patient did have arrest (V-tach VFib) in June 2024. At that point he was started on some antiarrhythmics which unfortunately have not been continued as outpatient. Serial high sensitive troponin has been negative and acute coronary syndrome is not considered for clinical presentation at this point. We do have a recent cardiac catheterization also (June 2024). It is also of note that the patient does have history of repeated DVTs and also pancytopenia/GI bleedings. He has not been on any as outpatient which also could have contributed to the clinical picture. Acute arrest Rule out PE s/p Defibrillation secondary to V-fib/Vtach (in June 2024) Encephalopathy? Baseline pulmonary hypertension Baseline systolic heart failure Status post BiV-ICD End-stage renal disease, Noncompliant with medication, followups and hemodialysis Pancytopenia History of GI bleeding Cephalic vein thrombosis VT/VF Cardiac suggestion for management: Manage in ICU/[facility] Follow-up electrolytes and kidney function tests and correct abnormalities Amiodarone/mexiletine Eliquis at 2.5 mg p.o. b.i.d. Further evaluation and management depends on the above and clinical course A total of 75 minutes was spent reviewing the patient record, examining the patient, making a diagnostic and therapeutic plan, discussing this plan with medical personnel, following up on diagnostic studies and following the patient for clinical stability excluding any and all procedures. At least 50% of this time was spent in direct, [id number]-rviw contact. Thank you for allowing me to participate in this patient's care. Further recommendations will depend on patient's clinical course. Please do not hesitate to contact me if you have any questions or concerns. This medical document was created using electronic medical record system with [employer] computerized dictation system. Although this document has been carefully reviewed, there may still be some phonetic and typographical errors. These areas are purely typographical due to the imperfection of the software programs, and do not reflect any compromise in the patient's medical care. Dietary Evaluation Review Recommendations by RD: Protein Supplementation Comments: 1) Initiate Pro-Stat @ 30 mL qd 2) Initiate Ovi @ 1 pk bid 3) Initiate Nephro-Eri @ 1 tb qd 4) If patient remains NPO > 7 days, consider EN/TPN to meet at least 75% of estimated daily needs 5) Advance to renal standard diet when medically feasible, pending [employer] approval 4) Continue to monitor I&O, labs, and skin integrity Expected Outcomes/Goals: 1) patient to receive nutritional support within 7 days 2) labs and wound to improve 3) diet to advance 4) f/u in 2-3 days Plan discussed with: Other (nurse) SUSHMA WALKER MD Aug 11, 2024 07:01
--- NOTE | 2024-08-11 07:05 | DVHNC2 ---
Procedure - Medtronic BiV-ICD interrogation: Remaining battery: 3.8 years DDD: 80/130 Pacing impedance: 399 A/361 RV Ohms Defibrillation independence: RV = 39 Ohms Repeated shocks for VT/VF SUSHMA WALKER MD Aug 11, 2024 07:05
--- NOTE | 2024-08-11 07:26 | DVHPNRES ---
Progress Note Date Seen: Aug 11, 2024 Resident Creating Document: KEILY RGEGG Medical Necessity Reason Pt with a Central, PICC or Fol: Yes The following are medically ne: Central Line, Lynne Catheter Reason for lynne catheter: Strict I&O Subjective Review of Systems HPI-patient is 64-year-old male patient with a history of nonischemic cardiomyopathy, chronic systolic heart failure, pacemaker, h/o DVT DVT- in the left subclavian vein, hypertension, hyperlipidemia, type 2 diabetes mellitus, Anemia, Medtronic BiV-ICD,CAD- prior myocardial infarction, pulmonary hypertension, ESRD on hemodialysis TTS presented to the ER with cardiopulmonary arrest. Information was gathered from reviewing the chart as patient is a poor historian. Per documentation patient completed his dialysis treatment and was being transported back to [place] [facility] acute care when he became unresponsive EN route and severe was initiated by EMS. Mavis allison was called and Patient was emergently intubated and on arrival to the emergency department. Revealed WBC 3.4, hemoglobin 10.1, platelet 139, 135, potassium 4.4, anion gap 7, BUN 9, creatinine 2.39, lactic acid 4.8> 3.4, sodium 1.8, serum bilirubin 0.06, troponin I 42>> 41 50, with a BNP 416, albumin 3.2. Urinalysis negative for UTI. CT chest on 08/08/2024- Right internal jugular catheter in place in the superior vena cava. Dual-chamber biventricular pacemaker in place with pulse generator over the left chest, Right lower lobe infiltrate and effusion worse than 07/30/2024 tubing overlying the lower right lung field correlate for possible chest tube placement. CT head no acute intracranial abnormality. Patient was previously admitted at [facility] on July 29 2024 -due to blood in the stool/melena/GI bleeding -angiodysplasia/divertic dise/ possibl proctitis acute on chronic hypoxic respiratory failure June 27, 2024-cardiac arrest May 18, 2024, -shortness of breaths with the acute hypoxic respiratory failure due to fluid overload April 16, 2024-shortness of breaths with acute chronic heart failure April 07, 2024-shortness of breaths and generalized weakness Reviewing chart from previous admission Echocardiogram on 06/29/2024 -revealed LVEF 20%, right ventricular enlargement with dysfunction, biatrial enlargement. On 06/29/2024- CT angio showed no pulmonary embolism but a large right and small left pleural effusion with associated bilateral atelectasis and consolidation. Patchy ground-glass opacities could represent pulmonary edema or an infectious / inflammatory process. Mediastinal lymphadenopathy similar to prior. Overall appearance is worse compared to prior exam. 06/29/24 CT head : No acute intracranial pathology. Cortical atrophy greater on the left. 07/01/2024 Quintoin catheter was placed 07/05/2024-patient was extubated On 07/09/2024-Doppler study of the left upper extremity revealed thrombus in the left subclavian vein On 07/09/20247430-[id number] thoracentesis removed 1.3 L of straw-colored fluid. 07/10/2024-Doppler study of the right upper extremity revealed-Thrombus is seen at the mid and distal aspect of right upper extremity fistula. Thrombus is seen in the cephalic vein. 07/17/24 tunneled catheter placed the right axillary vein PMH-nonischemic cardiomyopathy, chronic systolic heart failure, pacemaker, h/o DVT DVT hypertension, hyperlipidemia, type 2 diabetes mellitus, Anemia, AICP,CAD- prior myocardial infarction, pulmonary hypertension, ESRD on hemodialysis TTS PSH- Dialysis access, cardiac stents, pacemaker Allergy- NKDA Personal History/ Social History- On 08/10/2024 CT angio revealed-No evidence of pulmonary embolus. Large right pleural effusion. Consolidation of the left lung base may represent infectious process or atelectasis. Diffuse centrilobular emphysema On 08/10/2024 Doppler study of the upper extremity-Right upper extremity: Occlusive thrombophlebitis of the cephalic vein. No evidence of DVT. Moderate subcutaneous edema noted. On 08/10/2024 Echo 2D revealed- LVH, LVEF was around 25%.. Paradoxical septal motion was observed. Right ventricle was dilated with reduced systolic function. Both atria were dilated. Pacing wire were seen right-sided chambers. mild mitral regurgitation. There was mild to moderate tricuspid regurgitation. Right ventricular systolic pressure was assessed at 52 mm Hg. There was no pericardial effusion. Patient's right upper chest Kenny catheter and right upper arm fistula Dr. Booth started patient on amiodarone. patient was extubated today 08/11/2024 Order for thoracentesis, consult for IR in place Patient Was getting hypoxic in the evening, ordered BiPAP but patient refused Patient was seen today for clinical evaluation. Labs chart reviewed Overnight patient's BP ranging from-85-130 /49-70, pulse 60-80, temperature 9 9.0-99.3 I/O-intake 547, output 70, positive balance 477 Labs Revealed ABG pH 7.48, pCO2 40.7, PO2 86.6, bicarbonate 30.1 Patient with pancytopenia WBC 3.4> 4.0> 3.3> 3.5 Hemoglobin-11.1> 9.1> 9.2> 9.3 Platelet 139> 112> 124> 129 Sodium 135> 132> 134> 133 Potassium 4.4> 3.8> 4.1> 4.3 BUN 9> 15> 20> 35 Serum creatinine 2.39> 2.86> 3.66> 4.35 Magnesium 1.8>> 1.8 >1.9> 1.9 Calcium 9> 8.3> 8.9> 9.0 Right femoral central line 08/08/24 Respiratory culture no growth 08/08/2024- Blood culture no growth Dewaxer called and talked to Didi, [phone], discussed patient's current medical condition, plan of care and answered her questions. Objective vital signs Vital Sign Date Time Temp Pulse Resp B/P (MAP) Pulse Ox O2 Delivery O2 Flow Rate FiO2 08/11/24 06:45 99.3 62 16 117/60 (79) 100 210.7 08/11/24 06:17 30 08/11/24 06:00 Mechanical Ventilator+ Total Intake and Output 08/10/24 08/10/24 08/11/24 15:00 23:00 07:00 Intake Total 390.00 ml 501.98 ml 359.50 ml Output Total 50 ml 150 ml Balance 390.00 ml 451.98 ml 209.50 ml medications Current Medications Medications Dose Ordered Sig/Colleen Route Start Time Stop Time Status Last Admin Dose Admin Midazolam HCl 50 ml @ 1 mls/hr Q24H IV 08/08/24 17:45 08/09/24 19:32 2 MLS/HR Ondansetron HCl 4 mg Q4HP PRN IV 08/08/24 19:00 Acetaminophen 650 mg Q6HP PRN PO 08/08/24 19:00 Nitroglycerin 0.4 mg Q5MINP PRN SL 08/08/24 19:00 Morphine Sulfate 2 mg Q30M PRN IV 08/08/24 19:00 Pantoprazole Sodium 40 mg DAILY IV 08/10/24 10:00 08/10/24 11:37 40 MG Fentanyl Citrate 250 ml @ 2.5 mls/hr Q24H IV 08/09/24 12:45 08/09/24 18:26 2.5 MLS/HR Norepinephrine Bitartrate 250 ml @ 3.75 mls/hr Q24H IV 08/09/24 13:30 08/10/24 23:07 11.25 MLS/HR Amino Acid Protein 30 ml DAILY PO 08/10/24 10:00 08/10/24 15:47 30 ML Enteral Nutritional Formula 27.5 gm BID PO 08/09/24 22:00 08/10/24 15:47 27.5 GM Propofol 100 ml @ 1.98 mls/hr Q24H IV 08/09/24 18:45 08/10/24 20:39 1.98 MLS/HR Amiodarone HCl 200 mg Q12HR GT 08/10/24 22:00 08/10/24 22:12 200 MG Mexiletine HCl 150 mg Q8HR NG 08/10/24 14:00 08/11/24 06:24 150 MG Piperacillin Sod/ Tazobactam Sod 100 ml @ 25 mls/hr Q12HR IV 08/10/24 22:00 08/10/24 22:13 25 MLS/HR Heparin Sodium/ Dextrose 250 ml @ 11 mls/hr [id number] IV 08/11/24 02:30 08/11/24 02:41 11 MLS/HR Albumin Human 100 ml @ 100 mls/hr PRN PRN IV 08/11/24 07:00 08/11/24 23:59 Examination General examination- bruise on the chest and arms HEENT- PEERLA, no acute nasal discharge Cardiovascular- S1-S2 audible, rate and rhythm regular, no murmur Respiratory- CTAB, no wheeze or rhonchi Gastrointestinal-nontender, bowel sound+. Nondistended Musculoskeletal-no acute joint swelling or tenderness or redness extremity- bilateral upper arm swelling, Bruise on the chest and arms Skin-bruise on the chest and arms laboratory and microbiology Laboratory Tests 08/11/24 04:40 Test 08/11/24 04:40 Range/Units Serum Glucose 92 74-106 mg/dL Microbiology Date/Time Source Procedure Growth Status 08/09/24 01:32 Nose MRSA Screen - Final Complete 08/08/24 21:20 Sputum Gram Stain - Final Resulted 08/08/24 21:20 Sputum Respiratory Culture - Preliminary Resulted 08/08/24 18:04 Blood Blood Culture - Preliminary NO GROWTH AFTER 48 HOURS OF INCUBATION. Resulted Problem List/Assessment/Plan Problem List/Assessment/Plan Assessment and plan Patient Was getting hypoxic in the evening, ordered BiPAP but patient refused #Neurology -metabolic encephalopathy on ventilation acute hypoxic brain injury/septic shock -patient was extubated on 08/11/2024 Continue current management #Cardiovascular -status post cardiac arrest -septic shock likely due to pneumonia -nonischemic cardiomyopathy EF 20% -HFrEF -BiV-ICD -tachy-africa syndrome -DVT -history of hypertension -hyperlipidemia -CAD history of IN -continue mexiletine 150 mg Q 8 H -continue amiodarone as prescribed -continuing heparin as prescribed #Respiratory -acute hypoxic respiratory failure -pneumonia Gram-positive versus Gram-negative -pulmonary hypertension Right-sided pleural effusion -Emphysema -08/08/24 Respiratory culture no growth -08/08/2024- Blood culture no growth -continue Zosyn as prescribed #Gastrointestinal -on PPI prophylaxis #Genitourinary/renal -CKD on hemodialysis TTS #Hematology -anemia of chronic disease -pancytopenia - monitor CBC #Infectious -septic shock likely due to pneumonia #Metabolic/endocrine -diabetes mellitus type 2 -lactic acidosis -hyponatremia likely dilutional #Skin -bruise on the chest and arms # malnutrition Central line- right femoral ETT-patient was extubated on 08/11/2024 Lynne's catheter 07/01/2024 Quintoin catheter was placed Goals of care, Code status ; discussed with >15 minutes PUD prophylaxis: Pantoprazole DVT prophylaxis: Heparin Plan discussed with Dr. Zhong , nursing staff, sister Didi Total time spent on patient evaluation, chart review, total critical time spent including monitoring mechanical ventilation including CPAP trial, excluding procedure 84 minutes Plan discussed with: Other (RN Sister ) My Orders My Orders Orders - KEILY GREGG RESIDENT Procedure Category Date Status Time Drug Screen LAB 08/10/24 Logged 12:10 Cpap/Sed Vacation Med ORDERS 08/10/24 Transmitted Weaning 12:47 Platelet Monitoring [facility] 08/10/24 In Process 16:40 Vte Protocol Initiated [facility] 08/10/24 In Process 16:40 Heparin Per [facility] 08/10/24 In Process Standardized Proce 16:40 Discontinue All Im [facility] 08/10/24 In Process Injections 16:40 Heparin Per Pharmacy [facility] 08/10/24 In Process Protocol 16:58 Chest Portable XY 08/11/24 Resulted 04:00 Abg W/ Co-Ox RT 08/11/24 Logged 04:00 PTPTT LAB 08/11/24 Logged 08:30 Heparin Drip/D5w PHA 08/11/24 In Process 100units/Ml 02:30 Dietary Evaluation Review Recommendations by RD: Protein Supplementation Comments: 1) Initiate Pro-Stat @ 30 mL qd 2) Initiate Ovi @ 1 pk bid 3) Initiate Nephro-Eri @ 1 tb qd 4) If patient remains NPO > 7 days, consider EN/TPN to meet at least 75% of estimated daily needs 5) Advance to renal standard diet when medically feasible, pending [employer] approval 4) Continue to monitor I&O, labs, and skin integrity Expected Outcomes/Goals: 1) patient to receive nutritional support within 7 days 2) labs and wound to improve 3) diet to advance 4) f/u in 2-3 days Date of Service: Aug 11, 2024 Billing Provider: BELTRAN ZHONG MD Common Visit Codes: 71350-[id number] CARE 30-74 MIN, 11939-[id number] CARE-EACH +30MIN KEILY GREGG RESIDENT Aug 11, 2024 07:26 BELTRAN ZHONG MD Aug 22, 2024 20:19
[2024-08-11] MEDS: ALBUMIN 25% 100 ML IV PRN (07:30)
[2024-08-11 08:55] LABS: INR 1.16 (0.9-1.15); Prothrombin Time 12.1 sec (9.3-11.8)
[2024-08-11 08:59] LABS: Partial Thromboplastin Time > 139.0 SEC (24.5-34.5)
[2024-08-11] MEDS: AMIODARONE BOLUS KIT 100 ML IV ONE (10:25)
[2024-08-11] MEDS: AMIODARONE 360mg/200mL PREMIX 200 ML IV ONE (10:36)
[2024-08-11 11:13] LABS: Base Excess 6.2 mmol/L (-2.0-3.0)
--- NOTE | 2024-08-11 11:36 | CONS ---
Pharmacy Clinical Information: Heparin per pharmacy Spoke to Deidre AMARO regarding to heparin dose change Current dose: 1100 units/hr Current aPTT: > 139 on 08/11/2024 at 0817 Bolus: No Hold infusion 1 hr: yes, Heparin drip was held on 08/11/24 at 0903 per Deidre AMARO Decrease heparin drip rate to 800 units/hr starts at 1000 (order entered in by pharmacy) Heparin drip at 800 units/hr was documented on EMAR at 1038 08/11/2024 Next aPTT: 08/11/2024 AT 1630 Deidre Amaro read back new dose: 800 units/hr [facility] [place] Aug 11, 2024 11:36
[2024-08-11] MEDS: ONDANSETRON HCL 4 MG/2 ML VIAL IV PRN (14:14)
[2024-08-11 15:11] LABS: Base Excess 5.1 mmol/L (-2.0-3.0)
--- NOTE | 2024-08-11 15:31 | DVHPN2 ---
Progress Note - Dictate Date Seen: Aug 11, 2024 Medical Necessity Reason Pt with a Central, PICC or Fol: Yes The following are medically ne: Central Line, Lynne Catheter Reason for lynne catheter: Strict I&O Subjective remains intubated vital signs Vital Sign Date Time Temp Pulse Resp B/P (MAP) Pulse Ox O2 Delivery O2 Flow Rate FiO2 08/11/24 14:18 139/76 08/11/24 14:15 18 08/11/24 14:15 100 08/11/24 12:45 99.3 81 210.7 08/11/24 12:00 30 08/11/24 12:00 Mechanical Ventilator+ Total Intake and Output 08/10/24 08/10/24 08/11/24 15:00 23:00 07:00 Intake Total 390.00 ml 501.98 ml 394.25 ml Output Total 50 ml 150 ml Balance 390.00 ml 451.98 ml 244.25 ml medications Current Medications Medications Dose Ordered Sig/Colleen Route Start Time Stop Time Status Last Admin Dose Admin Midazolam HCl 50 ml @ 1 mls/hr Q24H IV 08/08/24 17:45 08/09/24 19:32 2 MLS/HR Ondansetron HCl 4 mg Q4HP PRN IV 08/08/24 19:00 08/11/24 14:14 4 MG Acetaminophen 650 mg Q6HP PRN PO 08/08/24 19:00 Nitroglycerin 0.4 mg Q5MINP PRN SL 08/08/24 19:00 Morphine Sulfate 2 mg Q30M PRN IV 08/08/24 19:00 Pantoprazole Sodium 40 mg DAILY IV 08/10/24 10:00 08/11/24 11:35 40 MG Fentanyl Citrate 250 ml @ 2.5 mls/hr Q24H IV 08/09/24 12:45 08/09/24 18:26 2.5 MLS/HR Norepinephrine Bitartrate 250 ml @ 3.75 mls/hr Q24H IV 08/09/24 13:30 08/10/24 23:07 11.25 MLS/HR Amino Acid Protein 30 ml DAILY PO 08/10/24 10:00 08/10/24 15:47 30 ML Enteral Nutritional Formula 27.5 gm BID PO 08/09/24 22:00 08/10/24 15:47 27.5 GM Propofol 100 ml @ 1.98 mls/hr Q24H IV 08/09/24 18:45 08/10/24 20:39 1.98 MLS/HR Amiodarone HCl 200 mg Q12HR GT 08/10/24 22:00 08/11/24 09:13 200 MG Mexiletine HCl 150 mg Q8HR NG 08/10/24 14:00 08/11/24 06:24 150 MG Piperacillin Sod/ Tazobactam Sod 100 ml @ 25 mls/hr Q12HR IV 08/10/24 22:00 08/11/24 11:35 25 MLS/HR Albumin Human 100 ml @ 100 mls/hr PRN PRN IV 08/11/24 07:00 08/11/24 23:59 08/11/24 07:30 100 MLS/HR Heparin Sodium/ Dextrose 250 ml @ 8 mls/hr Q24H IV 08/11/24 10:00 08/11/24 10:38 8 MLS/HR objective Gen: sedated , and intubated HEENT: NC, AT Lungs: decreased breath sounds Rt lung Cardiac: RRR, no murmur Abd: soft, no tenderness Neuro: sedated Ext: no edema laboratory and microbiology Laboratory Tests 08/11/24 04:40 Test 08/11/24 04:40 Range/Units Serum Glucose 92 74-106 mg/dL Assessment/Plan ESRD on HD s/p cardiac arrest with ROSC Acute hypoxic respiratory failure s/p intubation on mechanical ventilator Sepsis secondary to pneumonia Hyponatremia Lactic acidosis Hypoalbuminemia HTN Atrial fibrillation CAD s/p stent s/p pacemaker chronic diastolic CHF Pancytopenia Plan: HD today HD schedule: TTS Cleared from Nephrology perspective to have CT with contrast Continue IV antibiotics NAZANIN post HD as needed. goal Hb: 10-11 g/dl Vasopressors to maintain MAP > 65 mmHg Pulmonary for vent management Dietary Evaluation Review Recommendations by RD: Protein Supplementation Comments: 1) Initiate Pro-Stat @ 30 mL qd 2) Initiate Ovi @ 1 pk bid 3) Initiate Nephro-Eri @ 1 tb qd 4) If patient remains NPO > 7 days, consider EN/TPN to meet at least 75% of estimated daily needs 5) Advance to renal standard diet when medically feasible, pending METER AND REGULATOR SHOP SUPERVISOR approval 4) Continue to monitor I&O, labs, and skin integrity Expected Outcomes/Goals: 1) patient to receive nutritional support within 7 days 2) labs and wound to improve 3) diet to advance 4) f/u in 2-3 days Plan discussed with: Other SAVANNAH FAUST MD Aug 11, 2024 15:31
--- NOTE | 2024-08-11 16:35 | ECG ---
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
--- NOTE | 2024-08-11 17:02 | DVH ---
RIGHT Chest Sonogram Date: 08/11/2024 04:11 PM Clinical history: PLUERAL EFFUSION CHECK TECHNIQUE: MULTIPLE LONGITUDINAL AND TRANSVERSE IMAGES THROUGH BOTH LUNG BASES TO EVALUATE FOR PLEURA L EFFUSION WERE OBTAINED. Images submitted: 5 Findings: LARGE RIGHT PLEURAL EFFUSION. VOLUME NOT CALCULATED. NO LEFT PLEURAL EFFUSION. IMPRESSION: 1. LARGE RIGHT PLEURAL EFFUSION. VOLUME NOT CALCULATED.
[2024-08-11 17:36] LABS: INR 1.15 (0.9-1.15)
[2024-08-11 17:37] LABS: Partial Thromboplastin Time 114.2 SEC (24.5-34.5)
[2024-08-11] MEDS: IPRATROPIUM BROM 0.5 MG/2.5ML INH SOL NEB SCH (18:04)
[2024-08-11] MEDS: ALBUTEROL SULF 2.5 MG/0.5ML(0.5%) NEB SOLN NEB SCH (18:06)
--- NOTE | 2024-08-11 18:40 | DVHNC2 ---
Arterial Puncture Indication: Assess acid-base status Procedure: Sterile Preparation Location: Right Femoral Informed consent obtained: Yes Risks/benefits/alt described: Yes Date of Service: Aug 11, 2024 Billing Provider: DEVAUGHN LEONG MD Common Visit Codes: PROCEDURE ONLY KEILY GREGG RESIDENT Aug 11, 2024 18:40
[2024-08-11] MEDS: AMIODARONE 360mg/200mL PREMIX 200 ML IV SCH (18:49)
[2024-08-11 19:37] LABS: INR 1.14 (0.9-1.15); Prothrombin Time 11.9 sec (9.3-11.8)
[2024-08-11 19:45] LABS: Partial Thromboplastin Time 73.4 SEC (24.5-34.5)
--- NOTE | 2024-08-11 19:59 | DVHNC2 ---
Procedure - Ultrasound-guided RIGHT thoracentesis procedure note: Physician: Dr Radha Elder Maintenance Welder: Franklyn GRULLON Time out time: 1929 Patient medications and allergies reviewed. The risks and benefits of the procedure and the sedation options and risk were discussed with the patient's healthcare proxy. All questions were answered and informed consent was obtained. Patient identification and proposed procedure were verified prior to the procedure by the physician, and a nurse in the patient's room. The heart rate, respiratory rate, oxygen saturations, blood pressure, adequacy of pulmonary ventilation, and response to care were monitored throughout the procedure. The physical status of the patient was reassessed after the procedure. Date: 08/11/2024 Consent: Consent was obtained from patient prior to procedure. Indication, risks, and benefits were explained at length. Procedure summary: A time-out was performed and a chest x-ray was reviewed prior to procedure. The appropriate site was confirmed and marked. My hands were washed immediately prior to the procedure, I wore a surgical cap, mask with protective eyewear, sterile gown and sterile gloves throughout the procedure. The patient was prepped and draped in a sterile manner using chlorhexidine scrub after the appropriate level was percussed and confirmed by ultrasound. 1% lidocaine was used to anesthetize the skin, subcutaneous tissue, superior aspect of the rib periosteum and parietal pleura. A finder needle was then introduced over the superior aspect of the rib to locate the pleural fluid; YVETTE fluid was aspirated. Thoracentesis needle was then introduced through the skin incision into the pleural space using negative aspiration pressure. The thoracentesis catheter was then threaded without difficulty. 1450 mL's of YVETTE colored fluid were removed without difficulty. The catheter was then removed. No immediate complications were noted during the procedure. A post-procedure chest x-ray is pending at the time of this note. The pleural fluid will be sent for cultures and cytology. Estimated blood loss: less than 5 mL's. CPT: 74474 DEVAUGHN ELDER MD Aug 11, 2024 19:59
--- NOTE | 2024-08-11 20:45 | DVH ---
CHEST RADIOGRAPH Indication: s/p right thoracentsis, r/o PTX Technique: Single frontal view of the chest was obtained Comparison: XY CHEST PORTABLE on DOS: 08/11/24, XY CHEST XRAY 1 VIEW on DOS: 08/10/24, XY CHEST PORTABLE on DOS: 08/09/24 FINDINGS: Lines and Tubes: Right subclavian stent with hemodialysis catheter through the stent into the superio r vena cava above the right atrium. Biventricular pacemaker is in place with pulse generator over the left chest. Lungs: Airspace disease is noted in the right lower lobe with right pleural effusion. Pleura: No effusion. No pneumothorax. Cardiomediastinal contours: Unremarkable Bones: No acute osseous abnormality. IMPRESSION: 1. Right pleural effusion. Airspace disease right lower lobe. 2. No pneumothorax. 3. Biventricular pacemaker in place unchanged 4. Hemodialysis catheter from the right in the superior vena cava above the right atrium.
[2024-08-11] MEDS: EPOETIN ALFA-EPBX 10,000 UNIT/1ML VIAL SC ONE (21:54)
[2024-08-11 23:30] LABS: Body Fluid Red Blood Cells 104 CUMM (0-2000); Body Fluid White Blood Cells 249 CUMM (0-200)
[2024-08-12] VITALS (102 sets, daily range): BP systolic 87–151; BP diastolic 43–86; PULSE 63–95; RESP 9–25; TEMP 97.2–98.1; O2SAT 81–100
[2024-08-12 02:37] LABS: Basophils # (auto) 0 10 ^3/uL (0-0.2); Basophils % (auto) 1.2 % (0.0-2.0); Eosinophils # (auto) 0.1 10 ^3/uL (0-0.8); Eosinophils % (auto) 3.8 % (0.0-7.0); Hematocrit 25.7 % (41.0-53.0); Hemoglobin 8.7 g/dL (13.5-17.5); Lymphocytes # (auto) 0.2 10 ^3/uL (0.4-5.4); Lymphocytes % (auto) 6.3 % (10.0-50.0); Mean Corpuscular Hemoglobin 33.1 pg (28.0-32.0); Mean Corpuscular Hgb Conc. 33.7 g/dL (32.0-36.0); Mean Corpuscular Volume 98.4 fL (80.0-100.0); Monocytes # (auto) 0.4 10 ^3/uL (0-1.3); Monocytes % (auto) 10.6 % (0.0-12.0); Neutrophils # (auto) 2.8 10 ^3/uL (1.6-8.6); Neutrophils % (auto) 78.1 % (37.0-80.0); Platelet Count (auto) 99 10^3/uL (140-450); Red Blood Cells 2.62 10^6/uL (4.5-5.90); Red Cell Distribution Width 20.9 % (11.8-14.3); White Blood Cell 3.6 10^3/uL (4.4-10.8)
[2024-08-12 02:54] LABS: Albumin 3.3 g/dL (3.2-4.8); Alkaline Phosphatase 91 U/L (46-116); Anion Gap 6 (5-15); BUN/Creatinine Ratio 6.3 (10.0-20.0); Calcium 9.3 mg/dL (8.7-10.4); Glucose 91 mg/dL (74-106); Magnesium 1.9 mg/dL (1.6-2.6); Potassium 3.9 mmol/L (3.5-5.1); Sodium 136 mmol/L (136-145)
[2024-08-12 02:55] LABS: Bilirubin, Total 0.5 mg/dL (0.2-1.0)
[2024-08-12 03:17] LABS: Alanine Aminotransferase < 9 U/L (7-40); Aspartate Aminotransferase 12 U/L (13-40); Blood Urea Nitrogen 23 mg/dL (9-23); Carbon Dioxide 32 mmol/L (20-31); Chloride 98 mmol/L (98-107); Total Protein 5.7 g/dL (5.7-8.2)
--- NOTE | 2024-08-12 05:17 | DVH ---
EXAM: XR Chest, 1 View CLINICAL INDICATION: PNA TECHNIQUE: Frontal view of the chest. COMPARISON: XY CHEST XRAY 1 VIEW on DOS: 08/11/24, XY CHEST PORTABLE on DOS: 08/11/24, XY CHEST XRAY 1 VIEW on DOS: 08/10/24, XY CHEST PORTABLE on DOS: 08/09/24, XY CHEST XRAY 1 VIEW on DOS: 08/08/24 FINDINGS: LUNGS AND PLEURAL SPACES: Right pleural effusion. HEART: Cardiomegaly with mild congestion. MEDIASTINUM: Unremarkable. Normal mediastinal contour. BONES/JOINTS: Unremarkable. No acute fracture. TUBES, LINES AND DEVICES: Left-sided cardiac pacemaker. Stable right-sided central line. OTHER FINDINGS: . .. IMPRESSION: 1. Cardiomegaly with mild congestion. 2. Right pleural effusion.
--- NOTE | 2024-08-12 06:25 | DVHPNRES ---
Progress Note Date Seen: Aug 12, 2024 Resident Creating Document: KEILY GREGG Medical Necessity Reason Pt with a Central, PICC or Fol: Yes The following are medically ne: Central Line, Lynne Catheter Reason for lynne catheter: Strict I&O Subjective Review of Systems HPI-patient is 64-year-old male patient with a history of nonischemic cardiomyopathy, chronic systolic heart failure, pacemaker, h/o DVT DVT- in the left subclavian vein, hypertension, hyperlipidemia, type 2 diabetes mellitus, Anemia, [employer] BiV-ICD,CAD- prior myocardial infarction, pulmonary hypertension, ESRD on hemodialysis TTS presented to the ER with cardiopulmonary arrest. Information was gathered from reviewing the chart as patient is a poor historian. Per documentation patient completed his dialysis treatment and was being transported back to [facility] acute care when he became unresponsive EN route and severe was initiated by EMS. Mavis allison was called and Patient was emergently intubated and on arrival to the emergency department. Revealed WBC 3.4, hemoglobin 10.1, platelet 139, 135, potassium 4.4, anion gap 7, BUN 9, creatinine 2.39, lactic acid 4.8> 3.4, sodium 1.8, serum bilirubin 0.06, troponin I 42>> 41 50, with a BNP 416, albumin 3.2. Urinalysis negative for UTI. CT chest on 08/08/2024- Right internal jugular catheter in place in the superior vena cava. Dual-chamber biventricular pacemaker in place with pulse generator over the left chest, Right lower lobe infiltrate and effusion worse than 07/30/2024 tubing overlying the lower right lung field correlate for possible chest tube placement. CT head no acute intracranial abnormality. Patient was previously admitted at [facility] on July 29 2024 -due to blood in the stool/melena/GI bleeding -angiodysplasia/divertic dise/ possibl proctitis acute on chronic hypoxic respiratory failure June 27, 2024-cardiac arrest May 18, 2024, -shortness of breaths with the acute hypoxic respiratory failure due to fluid overload April 16, 2024-shortness of breaths with acute chronic heart failure April 07, 2024-shortness of breaths and generalized weakness Reviewing chart from previous admission Echocardiogram on 06/29/2024 -revealed LVEF 20%, right ventricular enlargement with dysfunction, biatrial enlargement. On 06/29/2024- CT angio showed no pulmonary embolism but a large right and small left pleural effusion with associated bilateral atelectasis and consolidation. Patchy ground-glass opacities could represent pulmonary edema or an infectious / inflammatory process. Mediastinal lymphadenopathy similar to prior. Overall appearance is worse compared to prior exam. 06/29/24 CT head : No acute intracranial pathology. Cortical atrophy greater on the left. 07/01/2024 Quintoin catheter was placed 07/05/2024-patient was extubated On 07/09/2024-Doppler study of the left upper extremity revealed thrombus in the left subclavian vein On 07/09/20241522-[id number]-[id number] thoracentesis removed 1.3 L of straw-colored fluid. 07/10/2024-Doppler study of the right upper extremity revealed-Thrombus is seen at the mid and distal aspect of right upper extremity fistula. Thrombus is seen in the cephalic vein. 07/17/24 tunneled catheter placed the right axillary vein PMH-nonischemic cardiomyopathy, chronic systolic heart failure, pacemaker, h/o DVT DVT hypertension, hyperlipidemia, type 2 diabetes mellitus, Anemia, AICP,CAD- prior myocardial infarction, pulmonary hypertension, ESRD on hemodialysis TTS PSH- Dialysis access, cardiac stents, pacemaker Allergy- NKDA Personal History/ Social History- On 08/10/2024 CT angio revealed-No evidence of pulmonary embolus. Large right pleural effusion. Consolidation of the left lung base may represent infectious process or atelectasis. Diffuse centrilobular emphysema On 08/10/2024 Doppler study of the upper extremity-Right upper extremity: Occlusive thrombophlebitis of the cephalic vein. No evidence of DVT. Moderate subcutaneous edema noted. On 08/10/2024 Echo 2D revealed- LVH, LVEF was around 25%.. Paradoxical septal motion was observed. Right ventricle was dilated with reduced systolic function. Both atria were dilated. Pacing wire were seen right-sided chambers. mild mitral regurgitation. There was mild to moderate tricuspid regurgitation. Right ventricular systolic pressure was assessed at 52 mm Hg. There was no pericardial effusion. Patient's right upper chest Kenny catheter and right upper arm fistula Patient do not want BiPAP in any case patient was extubated 08/11/2024 Status post thoracentesis, 1.5 L of fluid was removed 08/11/2024 Patient was seen today for clinical evaluation. Labs chart reviewed Overnight patient's BP ranging from 92-135 /-53 -75, pulse -74 97, temperature 97.6-99.0 I/O-intake 1179 output 150, positive balance 1029 Labs Revealed ABG pH 7.48, pCO2 40.7, PO2 86.6, bicarbonate 30.1 Patient with pancytopenia WBC 3.4> 4.0> 3.3> 3.5> 3.6 Hemoglobin-11.1> 9.1> 9.2> 9.3> 8.7 Platelet 139> 112> 124> 129> 99 Sodium 135> 132> 134> 133> 136 Potassium 4.4> 3.8> 4.1> 4.3> 3.9 BUN 9> 15> 20> 35> 23 Serum creatinine 2.39> 2.86> 3.66> 4.35> 3.63 Magnesium 1.8>> 1.8 >1.9> 1.9> 1.9 Calcium 9> 8.3> 8.9> 9.0> 9.3 Right femoral central line 08/08/24 Respiratory culture no growth 08/08/2024- Blood culture no growth MRSA screening negative Dukey Rider called and talked to Didi, [phone], discussed patient's current medical condition, plan of care and answered her questions. Objective vital signs Vital Sign Date Time Temp Pulse Resp B/P (MAP) Pulse Ox O2 Delivery O2 Flow Rate FiO2 08/12/24 06:02 111/58 08/12/24 05:45 77 14 100 08/12/24 04:00 98.1 98.1 08/12/24 04:00 Oxymizer 8 N/A Total Intake and Output 08/11/24 08/11/24 08/12/24 15:00 23:00 07:00 Intake Total 428.40 ml 402.95 ml 313.12 ml Output Total 0 ml 150 ml Balance 428.40 ml 402.95 ml 163.12 ml medications Current Medications Medications Dose Ordered Sig/Colleen Route Start Time Stop Time Status Last Admin Dose Admin Ondansetron HCl 4 mg Q4HP PRN IV 08/08/24 19:00 08/11/24 14:14 4 MG Acetaminophen 650 mg Q6HP PRN PO 08/08/24 19:00 Nitroglycerin 0.4 mg Q5MINP PRN SL 08/08/24 19:00 Morphine Sulfate 2 mg Q30M PRN IV 08/08/24 19:00 Pantoprazole Sodium 40 mg DAILY IV 08/10/24 10:00 08/11/24 11:35 40 MG Norepinephrine Bitartrate 250 ml @ 3.75 mls/hr Q24H IV 08/09/24 13:30 08/12/24 01:02 7.5 MLS/HR Mexiletine HCl 150 mg Q8HR NG 08/10/24 14:00 08/11/24 06:24 150 MG Piperacillin Sod/ Tazobactam Sod 100 ml @ 25 mls/hr Q12HR IV 08/10/24 22:00 08/11/24 21:54 25 MLS/HR Ipratropium Slater 0.5 mg Q6HR NEB 08/11/24 18:00 08/12/24 00:11 0.5 MG Albuterol 2.5 mg Q6HR NEB 08/11/24 18:00 08/12/24 00:11 2.5 MG Heparin Sodium/ Dextrose 250 ml @ 6 mls/hr Q24H IV 08/12/24 04:45 Examination General examination- bruise on the chest and arms HEENT- PEERLA, no acute nasal discharge Cardiovascular- S1-S2 audible, rate and rhythm regular, no murmur Respiratory- CTAB, no wheeze or rhonchi Gastrointestinal-nontender, bowel sound+. Nondistended Musculoskeletal-no acute joint swelling or tenderness or redness extremity- bilateral upper arm swelling, Bruise on the chest and arms Skin-bruise on the chest and arms laboratory and microbiology Laboratory Tests 08/12/24 02:28 Test 08/12/24 02:28 Range/Units Serum Glucose 91 74-106 mg/dL Microbiology Date/Time Source Procedure Growth Status 08/09/24 01:32 Nose MRSA Screen - Final Complete 08/08/24 21:20 Sputum Gram Stain - Final Resulted 08/08/24 21:20 Sputum Respiratory Culture - Preliminary Resulted 08/08/24 18:04 Blood Blood Culture - Preliminary NO GROWTH AFTER 72 HOURS OF INCUBATION. Resulted Problem List/Assessment/Plan Problem List/Assessment/Plan Assessment and plan #Neurology -metabolic encephalopathy on ventilation acute hypoxic brain injury/septic shock -patient was extubated on 08/11/2024 Continue current management #Cardiovascular -status post cardiac arrest -septic shock likely due to pneumonia -nonischemic cardiomyopathy EF 20% -HFrEF -BiV-ICD -tachy-africa syndrome -DVT -history of hypertension -hyperlipidemia -CAD history of ND -continue mexiletine 150 mg Q 8 H -continue amiodarone as prescribed -continuing heparin as prescribed #Respiratory -acute hypoxic respiratory failure -pneumonia Gram-positive versus Gram-negative -pulmonary hypertension Right-sided pleural effusion -Emphysema -08/08/24 Respiratory culture no growth -08/08/2024- Blood culture no growth -continue Zosyn as prescribed -patient had thoracentesis of the right chest on 08/11/2024, 1.5 L of fluid was removed #Gastrointestinal -on PPI prophylaxis #Genitourinary/renal -CKD on hemodialysis TTS #Hematology -anemia of chronic disease -pancytopenia - monitor CBC #Infectious -septic shock likely due to pneumonia #Metabolic/endocrine -diabetes mellitus type 2 -lactic acidosis -hyponatremia likely dilutional #Skin -bruise on the chest and arms # malnutrition Central line- right femoral patient was extubated on 08/11/2024 Lynne's catheter 07/01/2024 Quintoin catheter was placed Goals of care, Code status ; discussed with >25 minutes PUD prophylaxis: Pantoprazole DVT prophylaxis: Heparin Plan discussed with Dr. Morgan , nursing staff, sister Didi Total time spent on patient evaluation, chart review, total critical time spent excluding proce 65 minutes Plan discussed with: Patient, Other (RN, Sister ) My Orders My Orders Orders - KEILY GREGG RESIDENT Procedure Category Date Status Time Heparin Protocol LETICIA 08/11/24 In Process 09:00 Chest Portable XY 08/12/24 Resulted 04:00 Abg W/ Co-Ox RT 08/12/24 Logged 04:00 Abg W/ Co-Ox RT 08/11/24 Logged 13:44 * Swallow Request ST 08/11/24 Transmitted 15:18 Ipratropium Medneb PHA 08/11/24 In Process (Atrovent Medneb) 18:00 Albuterol Medneb PHA 08/11/24 In Process (Ventolin Medneb) 18:00 *Consult CONS 08/11/24 Transmitted / 18:28 Heparin Drip/D5w PHA 08/12/24 In Process 100units/Ml 04:45 PTPTT LAB 08/12/24 Logged 10:30 Dietary Evaluation Review Recommendations by RD: Protein Supplementation Comments: 1) Initiate Pro-Stat @ 30 mL qd 2) Initiate Ovi @ 1 pk bid 3) Initiate Nephro-Eri @ 1 tb qd 4) If patient remains NPO > 7 days, consider EN/TPN to meet at least 75% of estimated daily needs 5) Advance to renal standard diet when medically feasible, pending ELECTRIC ORGAN ASSEMBLER approval 4) Continue to monitor I&O, labs, and skin integrity Expected Outcomes/Goals: 1) patient to receive nutritional support within 7 days 2) labs and wound to improve 3) diet to advance 4) f/u in 2-3 days KEILY GREGG RESIDENT Aug 12, 2024 06:25
[2024-08-12 06:41] LABS: Base Excess 3.5 mmol/L (-2.0-3.0)
--- NOTE | 2024-08-12 06:56 | DVHPN2 ---
Progress Note - Dictate Date Seen: Aug 12, 2024 Medical Necessity Reason Pt with a Central, PICC or Fol: Yes The following are medically ne: Central Line, Lynne Catheter Reason for lynne catheter: Strict I&O vital signs Vital Sign Date Time Temp Pulse Resp B/P (MAP) Pulse Ox O2 Delivery O2 Flow Rate FiO2 08/12/24 06:30 77 20 100 08/12/24 06:22 Oxymizer 5.0 08/12/24 06:22 N/A 08/12/24 06:02 111/58 08/12/24 04:00 98.1 98.1 Total Intake and Output 08/11/24 08/11/24 08/12/24 15:00 23:00 07:00 Intake Total 428.40 ml 402.95 ml 313.12 ml Output Total 0 ml 150 ml Balance 428.40 ml 402.95 ml 163.12 ml medications Current Medications Medications Dose Ordered Sig/Colleen Route Start Time Stop Time Status Last Admin Dose Admin Ondansetron HCl 4 mg Q4HP PRN IV 08/08/24 19:00 08/11/24 14:14 4 MG Acetaminophen 650 mg Q6HP PRN PO 08/08/24 19:00 Nitroglycerin 0.4 mg Q5MINP PRN SL 08/08/24 19:00 Morphine Sulfate 2 mg Q30M PRN IV 08/08/24 19:00 Pantoprazole Sodium 40 mg DAILY IV 08/10/24 10:00 08/11/24 11:35 40 MG Norepinephrine Bitartrate 250 ml @ 3.75 mls/hr Q24H IV 08/09/24 13:30 08/12/24 01:02 7.5 MLS/HR Mexiletine HCl 150 mg Q8HR NG 08/10/24 14:00 08/11/24 06:24 150 MG Piperacillin Sod/ Tazobactam Sod 100 ml @ 25 mls/hr Q12HR IV 08/10/24 22:00 08/11/24 21:54 25 MLS/HR Ipratropium [place] 0.5 mg Q6HR NEB 08/11/24 18:00 08/12/24 06:22 0.5 MG Albuterol 2.5 mg Q6HR NEB 08/11/24 18:00 08/12/24 06:22 2.5 MG Heparin Sodium/ Dextrose 250 ml @ 6 mls/hr Q24H IV 08/12/24 04:45 laboratory and microbiology Laboratory Tests 08/12/24 02:28 Test 08/12/24 02:28 Range/Units Serum Glucose 91 74-106 mg/dL Assessment/Plan Patient is a 64-year-old gentleman who was brought to the hospital for arrest. Reportedly the patient had hemodialysis and was being taken back, when he arrested at transport vehicle and was brought to the hospital. Reportedly EMS was performing CPR prior to arrival to the hospital which was continued in emergency room. Patient is intubated and is being managed in [facility]/ICU. Cardiology is involved for cardiac aspects of care. Patient is known to our practice from before. It is of note that the patient was in the hospital in mid June up to early July for an episode of cardiac arrest/VFib. At that time he was started on amiodarone/mexiletine. It is also of note that the patient was brought back later in July and for some reason the antiarrhythmic drugs were not continued (was not seen by Cardiology at that point). Review of the transfer notes reveals that he has not been taking the above noted antiarrhythmics. It is also of note that the patient did have angiogram in late June which revealed patent stents and no indication for intervention. Patient does have a Medtronic BiV-ICD. He does have baseline history of noncompliance. He also has history of repeated GI bleedings and also DVT. Prior to this arrival, the patient was not on any anticoagulation (was it held because of GI bleeding/pancytopenia?). Extubated. No JVD. Mucosa is pink and wet. No carotid bruit. Lungs: Scattered rhonchi in the lungs is heard. Cardiac: Regular, systolic murmur 3/6 in the apex is heard. The site for ICD implantation looks clean with no erythema/ecchymosis/tenderness. Abdomen is soft. Bowel sound is positive. Extremities reveal 3+ edema bilaterally in lower and upper ext. 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 Echocardiogram of April 08, 2024 had reported four-chamber dilatation, ejection fraction of 20%, [id number] MR/TR and right ventricular systolic pressure of 75 mm Hg Echocardiogram of May 19, 2024 had reported four-chamber dilatation, ejection fraction of 35%, D shaped septum, pulmonary hypertension, mobile interatrial septum, [id number] aortic insufficiency, mild mitral regurgitation, moderate TR and right ventricular systolic pressure of 80 mm Hg Echocardiogram of June 28, 2024 reported ejection fraction of 20%, septal flattening and biatrial enlargement Left heart catheterization of July 06, 2024 revealed no obstructive coronary artery disease. There was patent stents in LAD/RCA. Troponin (high sensitive): 42 - 41 - 50 BNP: 416.54 D-Dimer: 3.80 Chest x-ray revealed: IMPRESSION: 1. Endotracheal tube in place 9.3 cm above the elizabeth. 2. Right internal jugular catheter in place in the superior vena cava 3. Enteric tube at the gastroesophageal junction recommend advancement 3-4 inches. 4. Dual-chamber biventricular pacemaker in place with pulse generator over the left chest, 5. Right lower lobe infiltrate and effusion worse than 07/30/2024 tubing overlying the lower right lung field correlate for possible chest tube placement. Repeat chest x-ray revealed: IMPRESSION: 1. Endotracheal tube has been repositioned now 7.6 cm above the elizabeth. Repeat chest x-ray revealed: IMPRESSION: 1. Endotracheal tube has been repositioned now 7.6 cm above the elizabeth. Repeat chest x-ray revealed: IMPRESSION: Bibasilar atelectasis or pneumonia. Repeat chest xry revealed: IMPRESSION: 1. Bibasilar atelectasis or pneumonia. 2. Pulmonary venous congestion. Repeat chest xry revealed: IMPRESSION: 1. Right pleural effusion. Airspace disease right lower lobe. 2. No pneumothorax. 3. Biventricular pacemaker in place unchanged 4. Hemodialysis catheter from the right in the superior vena cava above the right atrium. Repeat chest xry revealed: MPRESSION: 1. Cardiomegaly with mild congestion. 2. Right pleural effusion. Chest ultrasound revealed: IMPRESSION: 1. LARGE RIGHT PLEURAL EFFUSION. VOLUME NOT CALCULATED. CT of the head revealed: IMPRESSION: 1. No acute intracranial abnormality. CTA of lungs revealed: IMPRESSION: 1. No evidence of pulmonary embolus. 2. Large right pleural effusion. Consolidation of the left lung base may represent infectious process or atelectasis. 3. Diffuse centrilobular emphysema Venous duplex of lower ext revealed: Impression: No right or left femoropopliteal venous thrombosis. Venous duplex of upper ext revealed: IMPRESSION: Right upper extremity: Occlusive thrombophlebitis of the cephalic vein. No evidence of DVT. Moderate subcutaneous edema noted. Left upper extremity: No evidence of DVT or SVT. Telemetry reveals paced rhythm Echocardiogram reported: Left ventricle: Concentric left ventricular hypertrophy was seen. LVEF was around 25%. Septal flattening was seen. Paradoxical septal motion was observed. Right ventricle was dilated with reduced systolic function. Both atria were dilated. Pacing wire were seen right-sided chambers. Aortic valve was not well visualized. There was mild aortic insufficiency. There was no aortic stenosis. There was mild mitral regurgitation. There was mild to moderate tricuspid regurgitation. Pulmonary valve was not well visualized. Right ventricular systolic pressure was assessed at 52 mm Hg. There was no pericardial effusion. ICD interrogation: [employer]tronic BiV-ICD interrogation: Remaining battery: 3.8 years; DDD: 80/130; Pacing impedance: 399 A/361 RV Ohms; Defibrillation independence: RV = 39 Ohms; Repeated shocks for VT/VF Patient is a 64-year-old gentleman who presented with post arrest. It is of note that the patient did have arrest (V-tach VFib) in June 2024. At that point he was started on some antiarrhythmics which unfortunately have not been continued as outpatient. Serial high sensitive troponin has been negative and acute coronary syndrome is not considered for clinical presentation at this point. We do have a recent cardiac catheterization also (June 2024). It is also of note that the patient does have history of repeated DVTs and also pancytopenia/GI bleedings. He has not been on any as outpatient which also could have contributed to the clinical picture. Acute arrest Rule out PE s/p Defibrillation secondary to V-fib/Vtach (in June 2024) Encephalopathy? Baseline pulmonary hypertension Baseline systolic heart failure Status post BiV-ICD End-stage renal disease, Noncompliant with medication, followups and hemodialysis Pancytopenia History of GI bleeding Cephalic vein thrombosis VT/VF Cardiac suggestion for management: Manage in ICU/[facility] Follow-up electrolytes and kidney function tests and correct abnormalities Amiodarone/mexiletine Evaluation and management of pleural effusion as per Pulmonary/primary team Further evaluation and management depends on the above and clinical course A total of 75 minutes was spent reviewing the patient record, examining the patient, making a diagnostic and therapeutic plan, discussing this plan with medical personnel, following up on diagnostic studies and following the patient for clinical stability excluding any and all procedures. At least 50% of this time was spent in direct, islp-[id number] contact. Thank you for allowing me to participate in this patient's care. Further recommendations will depend on patient's clinical course. Please do not hesitate to contact me if you have any questions or concerns. This medical document was created using electronic medical record system with [email or web address] computerized dictation system. Although this document has been carefully reviewed, there may still be some phonetic and typographical errors. These areas are purely typographical due to the imperfection of the software programs, and do not reflect any compromise in the patient's medical care. Dietary Evaluation Review Recommendations by RD: Protein Supplementation Comments: 1) Initiate Pro-Stat @ 30 mL qd 2) Initiate Ovi @ 1 pk bid 3) Initiate Nephro-Eri @ 1 tb qd 4) If patient remains NPO > 7 days, consider EN/TPN to meet at least 75% of estimated daily needs 5) Advance to renal standard diet when medically feasible, pending FIRE POT OPERATOR approval 4) Continue to monitor I&O, labs, and skin integrity Expected Outcomes/Goals: 1) patient to receive nutritional support within 7 days 2) labs and wound to improve 3) diet to advance 4) f/u in 2-3 days Plan discussed with: Patient, Other (nurse) SUSHMA WALKER MD Aug 12, 2024 06:56
[2024-08-12] MEDS: HEPARIN DRIP/D5W 100UNITS/ML 250 ML IV SCH (06:58)
[2024-08-12] MEDS: AMIODARONE HCL 200 MG TAB PO ONE (10:49)
[2024-08-12 11:31] LABS: INR 1.15 (0.9-1.15)
[2024-08-12] MEDS: MEXILETINE HYDROCHLORIDE 150 MG CAP PO SCH (13:46)
[2024-08-12] MEDS: MIDODRINE HCL 10 MG TAB PO SCH (17:22)
--- NOTE | 2024-08-12 17:32 | DVHPN2 ---
Progress Note - Dictate Date Seen: Aug 12, 2024 Medical Necessity Reason Pt with a Central, PICC or Fol: Yes The following are medically ne: Central Line, Lynne Catheter Reason for lynne catheter: Strict I&O Subjective remains intubated vital signs Vital Sign Date Time Temp Pulse Resp B/P (MAP) Pulse Ox O2 Delivery O2 Flow Rate FiO2 08/12/24 17:15 72 18 104/53 (70) 96 08/12/24 16:00 Nasal Cannula* 3 32 08/12/24 12:00 97.6 97.6 Total Intake and Output 08/11/24 08/11/24 08/12/24 15:00 23:00 07:00 Intake Total 428.40 ml 402.95 ml 339.53 ml Output Total 0 ml 150 ml Balance 428.40 ml 402.95 ml 189.53 ml medications Current Medications Medications Dose Ordered Sig/Colleen Route Start Time Stop Time Status Last Admin Dose Admin Ondansetron HCl 4 mg Q4HP PRN IV 08/08/24 19:00 08/11/24 14:14 4 MG Acetaminophen 650 mg Q6HP PRN PO 08/08/24 19:00 Nitroglycerin 0.4 mg Q5MINP PRN SL 08/08/24 19:00 Morphine Sulfate 2 mg Q30M PRN IV 08/08/24 19:00 Pantoprazole Sodium 40 mg DAILY IV 08/10/24 10:00 08/12/24 09:57 40 MG Norepinephrine Bitartrate 250 ml @ 3.75 mls/hr Q24H IV 08/09/24 13:30 08/12/24 01:02 7.5 MLS/HR Piperacillin Sod/ Tazobactam Sod 100 ml @ 25 mls/hr Q12HR IV 08/10/24 22:00 08/12/24 09:57 25 MLS/HR Ipratropium [place] 0.5 mg Q6HR NEB 08/11/24 18:00 08/12/24 12:11 0.5 MG Albuterol 2.5 mg Q6HR NEB 08/11/24 18:00 08/12/24 12:10 2.5 MG Heparin Sodium/ Dextrose 250 ml @ 6 mls/hr Q24H IV 08/12/24 04:45 08/12/24 06:58 6 MLS/HR Mexiletine HCl 150 mg Q8HR PO 08/12/24 14:00 08/12/24 13:46 150 MG Amiodarone HCl 200 mg BID PO 08/12/24 22:00 Midodrine 10 mg TID@0600,1200,1800 PO 08/12/24 18:00 08/12/24 17:22 10 MG Enteral Nutritional Formula 28.8 gm DAILY PO 08/13/24 10:00 Enteral Nutritional Formula 240 ml DAILY PO 08/13/24 10:00 objective Gen: sedated , and intubated HEENT: NC, AT Lungs: decreased breath sounds Rt lung Cardiac: RRR, no murmur Abd: soft, no tenderness Neuro: sedated Ext: no edema laboratory and microbiology Laboratory Tests 08/12/24 02:28 Test 08/12/24 02:28 Range/Units Serum Glucose 91 74-106 mg/dL Assessment/Plan ESRD on HD s/p cardiac arrest with ROSC Acute hypoxic respiratory failure, extubated on supplemental oxygen Sepsis secondary to pneumonia Hyponatremia Lactic acidosis Hypoalbuminemia HTN Atrial fibrillation CAD s/p stent s/p pacemaker chronic diastolic CHF Pancytopenia Plan: s/p HD Saturday HD on HD schedule: TTS Continue IV antibiotics NAZANIN post HD as needed. goal Hb: 10-11 g/dl Dietary Evaluation Review Recommendations by RD: Protein Supplementation Comments: 1) Initiate Pro-Stat @ 30 mL qd 2) Initiate Ovi @ 1 pk bid 3) Initiate Nephro-Eri @ 1 tb qd 4) If patient remains NPO > 7 days, consider EN/TPN to meet at least 75% of estimated daily needs 5) Advance to renal standard diet when medically feasible, pending FOIL SPINNER approval 4) Continue to monitor I&O, labs, and skin integrity Expected Outcomes/Goals: 1) patient to receive nutritional support within 7 days 2) labs and wound to improve 3) diet to advance 4) f/u in 2-3 days Plan discussed with: Patient SAVANNAH FAUST MD Aug 12, 2024 17:32
[2024-08-12 17:55] LABS: INR 1.19 (0.9-1.15); Partial Thromboplastin Time 66.9 SEC (24.5-34.5); Prothrombin Time 12.4 sec (9.3-11.8)
[2024-08-12] MEDS: AMIODARONE HCL 200 MG TAB PO SCH (21:27)
[2024-08-12 23:43] LABS: INR 1.19 (0.9-1.15); Partial Thromboplastin Time 69.8 SEC (24.5-34.5); Prothrombin Time 12.4 sec (9.3-11.8)
[2024-08-13] VITALS (104 sets, daily range): BP systolic 69–147; BP diastolic 25–126; PULSE 60–81; RESP 10–22; TEMP 97.1–99.5; O2SAT 92–100
--- NOTE | 2024-08-13 00:16 | CONS ---
Pharmacy Clinical Information: PTT=69.8, THERAPEUTIC X 3, NO CHANGES TO HEPARIN RATE OF 600 UNITS/HR=6ML/HR, NEXT PTT SCHEDULED FOR 08/13 WITH [facility]. PT=12.4, INR=1.19, NOTIFIED RN ALISIA OF PLAN. JESSICA MCCOY Aug 13, 2024 00:16
[2024-08-13 04:54] LABS: Basophils # (auto) 0.1 10 ^3/uL (0-0.2); Eosinophils # (auto) 0.2 10 ^3/uL (0-0.8); Hemoglobin 7.8 g/dL (13.5-17.5); Mean Corpuscular Hgb Conc. 33.7 g/dL (32.0-36.0); Monocytes # (auto) 0.3 10 ^3/uL (0-1.3); White Blood Cell 2.5 10^3/uL (4.4-10.8)
[2024-08-13 04:57] LABS: Basophils % (auto) 4.8 % (0.0-2.0); Hematocrit 23.1 % (41.0-53.0); Lymphocytes # (auto) 0.3 10 ^3/uL (0.4-5.4); Lymphocytes % (auto) 13.6 % (10.0-50.0); Mean Corpuscular Hemoglobin 33.3 pg (28.0-32.0); Mean Corpuscular Volume 98.7 fL (80.0-100.0); Neutrophils # (auto) 1.5 10 ^3/uL (1.6-8.6); Neutrophils % (auto) 59.6 % (37.0-80.0); Platelet Count (auto) 89 10^3/uL (140-450); Red Blood Cells 2.35 10^6/uL (4.5-5.90)
[2024-08-13 04:58] LABS: Red Cell Distribution Width 20.2 % (11.8-14.3)
[2024-08-13 05:12] LABS: Alkaline Phosphatase 89 U/L (46-116); Anion Gap 7 (5-15); BUN/Creatinine Ratio 7.1 (10.0-20.0); Bilirubin, Total 0.4 mg/dL (0.2-1.0); Calcium 9.2 mg/dL (8.7-10.4)
[2024-08-13 05:14] LABS: Alanine Aminotransferase < 9 U/L (7-40); Aspartate Aminotransferase 11 U/L (13-40); Blood Urea Nitrogen 32 mg/dL (9-23); Carbon Dioxide 31 mmol/L (20-31); Chloride 98 mmol/L (98-107); Glucose 111 mg/dL (74-106); Sodium 136 mmol/L (136-145); Total Protein 5.2 g/dL (5.7-8.2)
[2024-08-13 05:16] LABS: INR 1.14 (0.9-1.15); Prothrombin Time 11.9 sec (9.3-11.8)
[2024-08-13 05:28] LABS: Partial Thromboplastin Time 80.1 SEC (24.5-34.5)
--- NOTE | 2024-08-13 05:53 | DVH ---
CHEST RADIOGRAPH Indication: CHF/PNA Technique: Single frontal view of the chest was obtained COMPARISON: XY CHEST PORTABLE on DOS: 08/12/24, XY CHEST XRAY 1 VIEW on DOS: 08/11/24, XY CHEST PORTABLE on DOS: 08/11/24, XY CHEST XRAY 1 VIEW on DOS: 08/10/24, XY CHEST PORTABLE on DOS: 08/09/24 FINDINGS: Lines and Tubes: Left chest AICD. Right tunneled central venous catheter in satisfactory position. Lungs: Congestion Pleura: Small bilateral pleural effusions. No pneumothorax. Cardiomediastinal contours: Cardiomegaly Bones: Unremarkable IMPRESSION: No significant interval change
[2024-08-13] MEDS ORDERED: HEPARIN DRIP/D5W 100UNITS/ML 250 ML IV SCH (06:00)
--- NOTE | 2024-08-13 06:17 | DVHPN2 ---
Progress Note - Dictate Date Seen: Aug 13, 2024 Medical Necessity Reason Pt with a Central, PICC or Fol: Yes The following are medically ne: Central Line, Lynne Catheter Reason for lynne catheter: Strict I&O Subjective no new symptoms vital signs Vital Sign Date Time Temp Pulse Resp B/P (MAP) Pulse Ox O2 Delivery O2 Flow Rate FiO2 08/13/24 06:10 100 Mask 7.0 08/13/24 06:10 66 18 08/13/24 06:10 60 08/13/24 05:45 08/13/24 04:00 99.1 99.1 Total Intake and Output 08/12/24 08/12/24 08/13/24 15:00 23:00 07:00 Intake Total 338.78 ml 531.28 ml 256.50 ml Output Total 100 ml 30 ml Balance 338.78 ml 431.28 ml 226.50 ml medications Current Medications Medications Dose Ordered Sig/Colleen Route Start Time Stop Time Status Last Admin Dose Admin Ondansetron HCl 4 mg Q4HP PRN IV 08/08/24 19:00 08/11/24 14:14 4 MG Acetaminophen 650 mg Q6HP PRN PO 08/08/24 19:00 Nitroglycerin 0.4 mg Q5MINP PRN SL 08/08/24 19:00 Morphine Sulfate 2 mg Q30M PRN IV 08/08/24 19:00 Pantoprazole Sodium 40 mg DAILY IV 08/10/24 10:00 08/12/24 09:57 40 MG Norepinephrine Bitartrate 250 ml @ 3.75 mls/hr Q24H IV 08/09/24 13:30 08/12/24 01:02 7.5 MLS/HR Piperacillin Sod/ Tazobactam Sod 100 ml @ 25 mls/hr Q12HR IV 08/10/24 22:00 08/12/24 21:27 25 MLS/HR Ipratropium [place] 0.5 mg Q6HR NEB 08/11/24 18:00 08/13/24 06:10 0.5 MG Albuterol 2.5 mg Q6HR NEB 08/11/24 18:00 08/13/24 06:10 2.5 MG Mexiletine HCl 150 mg Q8HR PO 08/12/24 14:00 08/12/24 21:27 150 MG Amiodarone HCl 200 mg BID PO 08/12/24 22:00 08/12/24 21:27 200 MG Midodrine 10 mg TID@0600,1200,1800 PO 08/12/24 18:00 08/12/24 17:22 10 MG Enteral Nutritional Formula 28.8 gm DAILY PO 08/13/24 10:00 Enteral Nutritional Formula 240 ml DAILY PO 08/13/24 10:00 Heparin Sodium/ Dextrose 250 ml @ 4 mls/hr Q24H IV 08/13/24 06:00 objective Gen: NAD, AAOx2 HEENT: NC, AT Lungs: decreased breath sounds Rt lung Cardiac: RRR, no murmur Abd: soft, no tenderness Neuro: no focal deficits Ext: no edema laboratory and microbiology Laboratory Tests 08/13/24 04:34 Test 08/13/24 04:34 Range/Units Serum Glucose 111 H 74-106 mg/dL Assessment/Plan ESRD on HD s/p cardiac arrest with ROSC Acute hypoxic respiratory failure, extubated on supplemental oxygen Sepsis secondary to pneumonia Hyponatremia Lactic acidosis Hypoalbuminemia HTN Atrial fibrillation CAD s/p stent s/p pacemaker chronic diastolic CHF Pancytopenia Plan: Scheduled for HD today- last HD Saturday HD schedule: TTS Continue IV antibiotics NAZANIN post HD as needed. goal Hb: 10-11 g/dl Dietary Evaluation Review Recommendations by RD: Protein Supplementation Comments: 1) Initiate Pro-Stat @ 30 mL qd 2) Initiate Ovi @ 1 pk bid 3) Initiate Nephro-Eri @ 1 tb qd 4) If patient remains NPO > 7 days, consider EN/TPN to meet at least 75% of estimated daily needs 5) Advance to renal standard diet when medically feasible, pending MATERIAL HANDLER LOADER approval 4) Continue to monitor I&O, labs, and skin integrity Expected Outcomes/Goals: 1) patient to receive nutritional support within 7 days 2) labs and wound to improve 3) diet to advance 4) f/u in 2-3 days Plan discussed with: Patient, Other SAVANNAH FAUST MD Aug 13, 2024 06:17
--- NOTE | 2024-08-13 06:43 | DVHPNRES ---
Progress Note Date Seen: Aug 13, 2024 Resident Creating Document: KEILY GREGG Medical Necessity Reason Pt with a Central, PICC or Fol: Yes The following are medically ne: Central Line, Lynne Catheter Reason for lynne catheter: Strict I&O Subjective Review of Systems HPI-patient is 64-year-old male patient with a history of nonischemic cardiomyopathy, chronic systolic heart failure, pacemaker, h/o DVT DVT- in the left subclavian vein, hypertension, hyperlipidemia, type 2 diabetes mellitus, Anemia, Medtronic BiV-ICD,CAD- prior myocardial infarction, pulmonary hypertension, ESRD on hemodialysis TTS presented to the ER with cardiopulmonary arrest. Information was gathered from reviewing the chart as patient is a poor historian. Per documentation patient completed his dialysis treatment and was being transported back to [facility] when he became unresponsive EN route and severe was initiated by EMS. Mavis allison was called and Patient was emergently intubated and on arrival to the emergency department. Revealed WBC 3.4, hemoglobin 10.1, platelet 139, 135, potassium 4.4, anion gap 7, BUN 9, creatinine 2.39, lactic acid 4.8> 3.4, sodium 1.8, serum bilirubin 0.06, troponin I 42>> 41 50, with a BNP 416, albumin 3.2. Urinalysis negative for UTI. CT chest on 08/08/2024- Right internal jugular catheter in place in the superior vena cava. Dual-chamber biventricular pacemaker in place with pulse generator over the left chest, Right lower lobe infiltrate and effusion worse than 07/30/2024 tubing overlying the lower right lung field correlate for possible chest tube placement. CT head no acute intracranial abnormality.On 08/10/2024 CT angio revealed-No evidence of pulmonary embolus. Large right pleural effusion. Consolidation of the left lung base may represent infectious process or atelectasis. Diffuse centrilobular emphysema On 08/10/2024 Doppler study of the upper extremity-Right upper extremity: Occlusive thrombophlebitis of the cephalic vein. No evidence of DVT. Moderate subcutaneous edema noted. 08/08/24 Respiratory culture no growth. 08/08/2024- Blood culture no growth. MRSA screening negative. On 08/10/2024 Echo 2D revealed- LVH, LVEF was around 25%.. Paradoxical septal motion was observed. Right ventricle was dilated with reduced systolic function. Both atria were dilated. Pacing wire were seen right-sided chambers. mild mitral regurgitation. There was mild to moderate tricuspid regurgitation. Right ventricular systolic pressure was assessed at 52 mm Hg. There was no pericardial effusion. Patient's right upper chest Kenny catheter and right upper arm fistula.patient was extubated 08/11/2024. Status post extubation patient was getting hypoxic, SpO2 75% likely due to moderate pleural effusion. Status post thoracentesis, 1.5 L of fluid was removed 08/11/2024. On 08/13/2024 Heparin was hold due to thrombocytopenia and dropping down hemoglobin. On 08/13/2024- Patient's code status changed to BiPAP and vasopressors only. On 08/13/2024 Patient was put on BiPAP for hypercarbia. Patient's code status changed from full code to BiPAP and ACLS drugs/vasopressor. Patient's BiPAP was removed in the evening by RT. Order for PICC line in place, also communication order to remove the central line from right renal artery of the PICC line is done in place. Patient is being followed by Dr. Booth, plate slitter and inspector for ventricular tachycardia/ventricular fibrillation. Patient is on mexiletine and amiodarone as per Dr. Stone recommendation. Patient on Zosyn antibiotic. Patient was previously admitted at [facility] on July 29 2024 -due to blood in the stool/melena/GI bleeding -angiodysplasia/divertic dise/ possibl proctitis acute on chronic hypoxic respiratory failure June 27, 2024-cardiac arrest May 18, 2024, -shortness of breaths with the acute hypoxic respiratory failure due to fluid overload April 16, 2024-shortness of breaths with acute chronic heart failure April 07, 2024-shortness of breaths and generalized weakness Reviewing chart from previous admission Echocardiogram on 06/29/2024 -revealed LVEF 20%, right ventricular enlargement with dysfunction, biatrial enlargement. On 06/29/2024- CT angio showed no pulmonary embolism but a large right and small left pleural effusion with associated bilateral atelectasis and consolidation. Patchy ground-glass opacities could represent pulmonary edema or an infectious / inflammatory process. Mediastinal lymphadenopathy similar to prior. Overall appearance is worse compared to prior exam. 06/29/24 CT head : No acute intracranial pathology. Cortical atrophy greater on the left. 07/01/2024 Quintoin catheter was placed 07/05/2024-patient was extubated On 07/09/2024-Doppler study of the left upper extremity revealed thrombus in the left subclavian vein On 07/09/[id number] thoracentesis removed 1.3 L of straw-colored fluid. 07/10/2024-Doppler study of the right upper extremity revealed-Thrombus is seen at the mid and distal aspect of right upper extremity fistula. Thrombus is seen in the cephalic vein. 07/17/24 tunneled catheter placed the right axillary vein Patient was seen today for clinical evaluation. Labs chart reviewed Patient on mechanical ventilation. Overnight patient's BP ranging from 87-122 /47-61, Pulse 64-74, Temperature 97.5 -99.1 I/O-intake 52 output 130, positive balance 1022 Labs Revealed -CXR no significant change ABG pH 7.27, pCO2 66.9, PO2 153, bicarbonate 30.6. Patient with pancytopenia On 08/13/2024 Heparin was hold due to thrombocytopenia and dropping down hemoglobin On 08/13/2024- Patient's code status changed to BiPAP and vasopressors only ON 08/13/2024 Patient was put on BiPAP for hypercarbia. Patient's BiPAP was removed in the evening as patient's symptoms improved. WBC 3.4> 4.0> 3.3> 3.5> 3.6> 2.5 Hemoglobin-11.1> 9.1> 9.2> 9.3> 8.7> 7.8 hold heparin Platelet 139> 112> 124> 129> 99> 89-hold heparin due to thrombocytopenia and hemoglobin dropping down Sodium 135> 132> 134> 133> 136> 136 Potassium 4.4> 3.8> 4.1> 4.3> 3.9> 4.0 BUN 9> 15> 20> 35> 23> 32 Serum creatinine 2.39> 2.86> 3.66> 4.35> 3.63> 4.5 Magnesium 1.8>> 1.8 >1.9> 1.9> 1.9> 2.0 Calcium 9> 8.3> 8.9> 9.0> 9.3> 9.2 Right femoral central line 08/08/24 Respiratory culture no growth 08/08/2024- Blood culture no growth MRSA screening negative Le[employer] Maker called and talked to Didi, [phone], discussed patient's current medical condition, plan of care and answered her questions. Objective vital signs Vital Sign Date Time Temp Pulse Resp B/P (MAP) Pulse Ox O2 Delivery O2 Flow Rate FiO2 08/13/24 06:16 68 18 100 08/13/24 06:10 Mask 7.0 08/13/24 06:10 60 08/13/24 05:45 08/13/24 04:00 99.1 99.1 Total Intake and Output 08/12/24 08/12/24 08/13/24 15:00 23:00 07:00 Intake Total 338.78 ml 531.28 ml 256.50 ml Output Total 100 ml 30 ml Balance 338.78 ml 431.28 ml 226.50 ml medications Current Medications Medications Dose Ordered Sig/Colleen Route Start Time Stop Time Status Last Admin Dose Admin Ondansetron HCl 4 mg Q4HP PRN IV 08/08/24 19:00 08/11/24 14:14 4 MG Acetaminophen 650 mg Q6HP PRN PO 08/08/24 19:00 Nitroglycerin 0.4 mg Q5MINP PRN SL 08/08/24 19:00 Morphine Sulfate 2 mg Q30M PRN IV 08/08/24 19:00 Pantoprazole Sodium 40 mg DAILY IV 08/10/24 10:00 08/12/24 09:57 40 MG Norepinephrine Bitartrate 250 ml @ 3.75 mls/hr Q24H IV 08/09/24 13:30 08/12/24 01:02 7.5 MLS/HR Piperacillin Sod/ Tazobactam Sod 100 ml @ 25 mls/hr Q12HR IV 08/10/24 22:00 08/12/24 21:27 25 MLS/HR Ipratropium [place] 0.5 mg Q6HR NEB 08/11/24 18:00 08/13/24 06:10 0.5 MG Albuterol 2.5 mg Q6HR NEB 08/11/24 18:00 08/13/24 06:10 2.5 MG Mexiletine HCl 150 mg Q8HR PO 08/12/24 14:00 08/12/24 21:27 150 MG Amiodarone HCl 200 mg BID PO 08/12/24 22:00 08/12/24 21:27 200 MG Midodrine 10 mg TID@0600,1200,1800 PO 08/12/24 18:00 08/12/24 17:22 10 MG Enteral Nutritional Formula 28.8 gm DAILY PO 08/13/24 10:00 Enteral Nutritional Formula 240 ml DAILY PO 08/13/24 10:00 Heparin Sodium/ Dextrose 250 ml @ 4 mls/hr Q24H IV 08/13/24 06:00 Examination General examination- bruise on the chest and arms HEENT- PEERLA, no acute nasal discharge Cardiovascular- S1-S2 audible, rate and rhythm regular, no murmur Respiratory- CTAB, no wheeze or rhonchi Gastrointestinal-nontender, bowel sound+. Nondistended Musculoskeletal-no acute joint swelling or tenderness or redness extremity- bilateral upper arm swelling, Bruise on the chest and arms Skin-bruise on the chest and arms laboratory and microbiology Laboratory Tests 08/13/24 04:34 Test 08/13/24 04:34 Range/Units Serum Glucose 111 H 74-106 mg/dL Microbiology Date/Time Source Procedure Growth Status 08/11/24 19:50 Pleural Fluid Gram Stain - Final Resulted 08/11/24 19:50 Pleural Fluid Body Fluid Culture - Preliminary Resulted 08/09/24 01:32 Nose MRSA Screen - Final Complete 08/08/24 21:20 Sputum Gram Stain - Final Complete 08/08/24 21:20 Sputum Respiratory Culture - Final Complete 08/08/24 18:04 Blood Blood Culture - Preliminary NO GROWTH AFTER 72 HOURS OF INCUBATION. Resulted Problem List/Assessment/Plan Problem List/Assessment/Plan Assessment and plan #Neurology -metabolic encephalopathy on ventilation acute hypoxic brain injury/septic shock -patient was extubated on 08/11/2024 Continue current management #Cardiovascular -status post cardiac arrest -septic shock likely due to pneumonia -nonischemic cardiomyopathy EF 20% -HFrEF -BiV-ICD -ventricular tachycardia, V-Fib -tachy-africa syndrome -DVT -history of hypertension -hyperlipidemia -CAD history of [place] -continue mexiletine 150 mg Q 8 H -amiodarone 200 mg b.i.d. #Respiratory -acute hypoxic respiratory failure -pneumonia Gram-positive versus Gram-negative -pulmonary hypertension Right-sided pleural effusion -Emphysema -hypercarbia-patient was put on BiPAP on 08/13/2024, removed in the evening -08/08/24 Respiratory culture no growth -08/08/2024- Blood culture no growth -continue Zosyn as prescribed -patient had thoracentesis of the right chest on 08/11/2024, 1.5 L of fluid was removed #Gastrointestinal -on PPI prophylaxis #Genitourinary/renal -CKD on hemodialysis TTS #Hematology -anemia of chronic disease -pancytopenia - monitor CBC #Infectious -septic shock likely due to pneumonia #Metabolic/endocrine -diabetes mellitus type 2 -lactic acidosis -hyponatremia likely dilutional #Skin -bruise on the chest and arms # malnutrition Central line- right femoral-on 08/16/2024 ordered to put a PICC line and remove the central line after PICC line is done patient was extubated on 08/11/2024 Lynne's catheter 07/01/2024 Quintoin catheter was placed Goals of care, Code status ; BiPAP and vasopressors only, discussed >25 minutes PUD prophylaxis: Pantoprazole DVT prophylaxis: SCD, hold heparin due to thrombocytopenia Plan discussed with Dr. Morgan , nursing staff, sister Didi Total time spent on patient evaluation, chart review, total critical time spent excluding proce 65 minutes Plan discussed with: Patient (Sister, RN), Other (RN) My Orders My Orders Orders - KEILY GREGG RESIDENT Procedure Category Date Status Time Heparin Per Pharmacy [facility] 08/12/24 In Process Protocol 11:56 Transfer Orders XFER 08/12/24 Transmitted 13:27 Communication Order ORDERS 08/12/24 Transmitted 13:27 Chest Portable XY 08/13/24 Resulted 04:00 Midodrine Tablet PHA 08/12/24 In Process (Proamatine Tablet) 18:00 Nutritional PHA 08/13/24 In Process Supplements (Ovi 10:00 Mechanical Soft Diet DIET 08/12/24 Transmitted Dinner Nutritional PHA 08/13/24 In Process Supplements (Nepro 10:00 Heparin Per Pharmacy [facility] 08/13/24 In Process Protocol 00:01 Abg W/ Co-Ox RT 08/13/24 Logged 05:42 PTPTT LAB 08/13/24 Logged 12:00 Heparin Per Pharmacy [facility] 08/13/24 In Process Protocol 05:50 Heparin Drip/D5w PHA 08/13/24 In Process 100units/Ml 06:00 Dietary Evaluation Review Recommendations by RD: Protein Supplementation Comments: 1) Initiate Pro-Stat @ 30 mL qd 2) Initiate Ovi @ 1 pk bid 3) Initiate Nephro-Eri @ 1 tb qd 4) If patient remains NPO > 7 days, consider EN/TPN to meet at least 75% of estimated daily needs 5) Advance to renal standard diet when medically feasible, pending ALL PURPOSE CLERK approval 4) Continue to monitor I&O, labs, and skin integrity Expected Outcomes/Goals: 1) patient to receive nutritional support within 7 days 2) labs and wound to improve 3) diet to advance 4) f/u in 2-3 days KEILY GREGG RESIDENT Aug 13, 2024 06:43
--- NOTE | 2024-08-13 07:24 | DVHPN2 ---
Progress Note - Dictate Date Seen: Aug 13, 2024 Medical Necessity Reason Pt with a Central, PICC or Fol: Yes The following are medically ne: Central Line, Lynne Catheter Reason for lynne catheter: Strict I&O vital signs Vital Sign Date Time Temp Pulse Resp B/P (MAP) Pulse Ox O2 Delivery O2 Flow Rate FiO2 08/13/24 06:45 65 19 119/59 (79) 100 08/13/24 06:10 Mask 7.0 08/13/24 06:10 60 08/13/24 04:00 99.1 99.1 Total Intake and Output 08/12/24 08/12/24 08/13/24 15:00 23:00 07:00 Intake Total 338.78 ml 531.28 ml 256.50 ml Output Total 100 ml 30 ml Balance 338.78 ml 431.28 ml 226.50 ml medications Current Medications Medications Dose Ordered Sig/Colleen Route Start Time Stop Time Status Last Admin Dose Admin Ondansetron HCl 4 mg Q4HP PRN IV 08/08/24 19:00 08/11/24 14:14 4 MG Acetaminophen 650 mg Q6HP PRN PO 08/08/24 19:00 Nitroglycerin 0.4 mg Q5MINP PRN SL 08/08/24 19:00 Morphine Sulfate 2 mg Q30M PRN IV 08/08/24 19:00 Pantoprazole Sodium 40 mg DAILY IV 08/10/24 10:00 08/12/24 09:57 40 MG Norepinephrine Bitartrate 250 ml @ 3.75 mls/hr Q24H IV 08/09/24 13:30 08/12/24 01:02 7.5 MLS/HR Piperacillin Sod/ Tazobactam Sod 100 ml @ 25 mls/hr Q12HR IV 08/10/24 22:00 08/12/24 21:27 25 MLS/HR Ipratropium [place] 0.5 mg Q6HR NEB 08/11/24 18:00 08/13/24 06:10 0.5 MG Albuterol 2.5 mg Q6HR NEB 08/11/24 18:00 08/13/24 06:10 2.5 MG Mexiletine HCl 150 mg Q8HR PO 08/12/24 14:00 08/13/24 06:38 150 MG Amiodarone HCl 200 mg BID PO 08/12/24 22:00 08/12/24 21:27 200 MG Midodrine 10 mg TID@0600,1200,1800 PO 08/12/24 18:00 08/13/24 06:38 10 MG Enteral Nutritional Formula 28.8 gm DAILY PO 08/13/24 10:00 Enteral Nutritional Formula 240 ml DAILY PO 08/13/24 10:00 Heparin Sodium/ Dextrose 250 ml @ 4 mls/hr Q24H IV 08/13/24 06:00 Hold laboratory and microbiology Laboratory Tests 08/13/24 04:34 Test 08/13/24 04:34 Range/Units Serum Glucose 111 H 74-106 mg/dL Assessment/Plan Patient is a 64-year-old gentleman who was brought to the hospital for arrest. Reportedly the patient had hemodialysis and was being taken back, when he arrested at transport vehicle and was brought to the hospital. Reportedly EMS was performing CPR prior to arrival to the hospital which was continued in emergency room. Patient is intubated and is being managed in [facility]/ICU. Cardiology is involved for cardiac aspects of care. Patient is known to our practice from before. It is of note that the patient was in the hospital in mid June up to early July for an episode of cardiac arrest/VFib. At that time he was started on amiodarone/mexiletine. It is also of note that the patient was brought back later in July and for some reason the antiarrhythmic drugs were not continued (was not seen by Cardiology at that point). Review of the transfer notes reveals that he has not been taking the above noted antiarrhythmics. It is also of note that the patient did have angiogram in late June which revealed patent stents and no indication for intervention. Patient does have a Medtronic BiV-ICD. He does have baseline history of noncompliance. He also has history of repeated GI bleedings and also DVT. Prior to this arrival, the patient was not on any anticoagulation (was it held because of GI bleeding/pancytopenia?). Extubated. No JVD. Mucosa is pink and wet. No carotid bruit. Lungs: Scattered rhonchi in the lungs is heard. Cardiac: Regular, systolic murmur 3/6 in the apex is heard. The site for ICD implantation looks clean with no erythema/ecchymosis/tenderness. Abdomen is soft. Bowel sound is positive. Extremities reveal 3+ edema bilaterally in lower and upper ext. 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 Echocardiogram of April 08, 2024 had reported four-chamber dilatation, ejection fraction of 20%, [id number] MR/TR and right ventricular systolic pressure of 75 mm Hg Echocardiogram of May 19, 2024 had reported four-chamber dilatation, ejection fraction of 35%, D shaped septum, pulmonary hypertension, mobile interatrial septum, [id number]-dbrrtavt aortic insufficiency, mild mitral regurgitation, moderate TR and right ventricular systolic pressure of 80 mm Hg Echocardiogram of June 28, 2024 reported ejection fraction of 20%, septal flattening and biatrial enlargement Left heart catheterization of July 06, 2024 revealed no obstructive coronary artery disease. There was patent stents in LAD/RCA. Troponin (high sensitive): 42 - 41 - 50 BNP: 416.54 D-Dimer: 3.80 Chest x-ray revealed: IMPRESSION: 1. Endotracheal tube in place 9.3 cm above the elizabeth. 2. Right internal jugular catheter in place in the superior vena cava 3. Enteric tube at the gastroesophageal junction recommend advancement 3-4 inches. 4. Dual-chamber biventricular pacemaker in place with pulse generator over the left chest, 5. Right lower lobe infiltrate and effusion worse than 07/30/2024 tubing overlying the lower right lung field correlate for possible chest tube placement. Repeat chest x-ray revealed: IMPRESSION: 1. Endotracheal tube has been repositioned now 7.6 cm above the elizabeth. Repeat chest x-ray revealed: IMPRESSION: 1. Endotracheal tube has been repositioned now 7.6 cm above the elizabeth. Repeat chest x-ray revealed: IMPRESSION: Bibasilar atelectasis or pneumonia. Repeat chest xry revealed: IMPRESSION: 1. Bibasilar atelectasis or pneumonia. 2. Pulmonary venous congestion. Repeat chest xry revealed: IMPRESSION: 1. Right pleural effusion. Airspace disease right lower lobe. 2. No pneumothorax. 3. Biventricular pacemaker in place unchanged 4. Hemodialysis catheter from the right in the superior vena cava above the right atrium. Repeat chest xry revealed: MPRESSION: 1. Cardiomegaly with mild congestion. 2. Right pleural effusion. Chest ultrasound revealed: IMPRESSION: 1. LARGE RIGHT PLEURAL EFFUSION. VOLUME NOT CALCULATED. CT of the head revealed: IMPRESSION: 1. No acute intracranial abnormality. CTA of lungs revealed: IMPRESSION: 1. No evidence of pulmonary embolus. 2. Large right pleural effusion. Consolidation of the left lung base may represent infectious process or atelectasis. 3. Diffuse centrilobular emphysema Venous duplex of lower ext revealed: Impression: No right or left femoropopliteal venous thrombosis. Venous duplex of upper ext revealed: IMPRESSION: Right upper extremity: Occlusive thrombophlebitis of the cephalic vein. No evidence of DVT. Moderate subcutaneous edema noted. Left upper extremity: No evidence of DVT or SVT. Telemetry reveals paced rhythm Echocardiogram reported: Left ventricle: Concentric left ventricular hypertrophy was seen. LVEF was around 25%. Septal flattening was seen. Paradoxical septal motion was observed. Right ventricle was dilated with reduced systolic function. Both atria were dilated. Pacing wire were seen right-sided chambers. Aortic valve was not well visualized. There was mild aortic insufficiency. There was no aortic stenosis. There was mild mitral regurgitation. There was mild to moderate tricuspid regurgitation. Pulmonary valve was not well visualized. Right ventricular systolic pressure was assessed at 52 mm Hg. There was no pericardial effusion. ICD interrogation: Medtronic BiV-ICD interrogation: Remaining battery: 3.8 years; DDD: 80/130; Pacing impedance: 399 A/361 RV Ohms; Defibrillation independence: RV = 39 Ohms; Repeated shocks for VT/VF Patient is a 64-year-old gentleman who presented with post arrest. It is of note that the patient did have arrest (V-tach VFib) in June 2024. At that point he was started on some antiarrhythmics which unfortunately have not been continued as outpatient. Serial high sensitive troponin has been negative and acute coronary syndrome is not considered for clinical presentation at this point. We do have a recent cardiac catheterization also (June 2024). It is also of note that the patient does have history of repeated DVTs and also pancytopenia/GI bleedings. Acute arrest Rule out PE s/p Defibrillation secondary to V-fib/Vtach (in June 2024) Encephalopathy? Baseline pulmonary hypertension Baseline systolic heart failure Status post BiV-ICD End-stage renal disease, Noncompliant with medication, followups and hemodialysis Pancytopenia History of GI bleeding Cephalic vein thrombosis VT/VF Cardiac suggestion for management: Manage in ICU/[facility] Follow-up electrolytes and kidney function tests and correct abnormalities Amiodarone/mexiletine Evaluation and management of pleural effusion as per Pulmonary/primary team Further evaluation and management depends on the above and clinical course A total of 75 minutes was spent reviewing the patient record, examining the patient, making a diagnostic and therapeutic plan, discussing this plan with medical personnel, following up on diagnostic studies and following the patient for clinical stability excluding any and all procedures. At least 50% of this time was spent in direct, fomy-fo-osyn contact. Thank you for allowing me to participate in this patient's care. Further recommendations will depend on patient's clinical course. Please do not hesitate to contact me if you have any questions or concerns. This medical document was created using electronic medical record system with [employer] computerized dictation system. Although this document has been carefully reviewed, there may still be some phonetic and typographical errors. These areas are purely typographical due to the imperfection of the software programs, and do not reflect any compromise in the patient's medical care. Dietary Evaluation Review Recommendations by RD: Protein Supplementation Comments: 1) Initiate Pro-Stat @ 30 mL qd 2) Initiate Ovi @ 1 pk bid 3) Initiate Nephro-Eri @ 1 tb qd 4) If patient remains NPO > 7 days, consider EN/TPN to meet at least 75% of estimated daily needs 5) Advance to renal standard diet when medically feasible, pending FISHING TOOL OPERATOR approval 4) Continue to monitor I&O, labs, and skin integrity Expected Outcomes/Goals: 1) patient to receive nutritional support within 7 days 2) labs and wound to improve 3) diet to advance 4) f/u in 2-3 days Plan discussed with: Patient, Other (nurse) SUSHMA WALKER MD Aug 13, 2024 07:24
[2024-08-13] MEDS: Nepro With Carbsteady ButterPecan 8oz Carton PO SCH (08:48)
[2024-08-13] MEDS: Juven Fruit Punch Powder PACKET 28.8gm PO SCH (08:48)
[2024-08-13 12:22] LABS: INR 1.15 (0.9-1.15); Partial Thromboplastin Time 37.2 SEC (24.5-34.5)
[2024-08-13 13:07] LABS: Protein, Body Fluid 2.6 g/dL (.)
[2024-08-13 13:53] LABS: Base Excess 2.5 mmol/L (-2.0-3.0)
[2024-08-13 15:23] LABS: Basophils # (auto) 0.1 10 ^3/uL (0-0.2); Eosinophils # (auto) 0.2 10 ^3/uL (0-0.8); Eosinophils % (auto) 8.9 % (0.0-7.0); Hemoglobin 7.8 g/dL (13.5-17.5); Lymphocytes # (auto) 0.3 10 ^3/uL (0.4-5.4); Monocytes # (auto) 0.4 10 ^3/uL (0-1.3); White Blood Cell 2.6 10^3/uL (4.4-10.8)
[2024-08-13 15:25] LABS: Basophils % (auto) 4.7 % (0.0-2.0); Hematocrit 23.9 % (41.0-53.0); Lymphocytes % (auto) 10.8 % (10.0-50.0); Mean Corpuscular Hemoglobin 32.4 pg (28.0-32.0); Mean Corpuscular Hgb Conc. 32.7 g/dL (32.0-36.0); Mean Corpuscular Volume 99.2 fL (80.0-100.0); Monocytes % (auto) 14.7 % (0.0-12.0); Neutrophils # (auto) 1.6 10 ^3/uL (1.6-8.6); Neutrophils % (auto) 60.9 % (37.0-80.0); Nucleated Red Blood Cells % 0.3 %; Platelet Count (auto) 97 10^3/uL (140-450); Red Blood Cells 2.41 10^6/uL (4.5-5.90)
[2024-08-13 15:28] LABS: Red Cell Distribution Width 20.6 % (11.8-14.3)
[2024-08-13] MEDS: EPOETIN ALFA-EPBX 10,000 UNIT/1ML VIAL SC ONE (22:24)
[2024-08-14] VITALS (77 sets, daily range): BP systolic 87–184; BP diastolic 38–78; PULSE 60–83; RESP 13–100; TEMP 97.7–99.2; O2SAT 90–100
--- NOTE | 2024-08-14 05:14 | DVH ---
INDICATION: PNA TECHNIQUE: Single frontal view of the chest was obtained COMPARISON: XY CHEST PORTABLE on DOS: 08/13/24, XY CHEST PORTABLE on DOS: 08/12/24, XY CHEST XRAY 1 VIEW on DOS: 08/11/24, XY CHEST PORTABLE on DOS: 08/11/24, XY CHEST XRAY 1 VIEW on DOS: 08/10/24, XY CHEST PORT ABLE on DOS: 08/13/24 FINDINGS: Lines and Tubes: Left chest AICD. Right tunneled central venous catheter in satisfactory position. Lungs: Congestion Pleura: Small bilateral pleural effusions. No pneumothorax. Cardiomediastinal contours: Cardiomegaly Bones: Unremarkable IMPRESSION: No significant interval change
--- NOTE | 2024-08-14 06:49 | DVHPN2 ---
Progress Note - Dictate Date Seen: Aug 14, 2024 Medical Necessity Reason Pt with a Central, PICC or Fol: Yes The following are medically ne: Central Line, Lynne Catheter Reason for lynne catheter: Strict I&O vital signs Vital Sign Date Time Temp Pulse Resp B/P (MAP) Pulse Ox O2 Delivery O2 Flow Rate FiO2 08/14/24 05:32 60 18 100 08/14/24 05:31 Nasal Cannula* 3 32 08/14/24 05:15 108/47 (67) 08/14/24 04:45 98.1 98.1 Total Intake and Output 08/13/24 08/13/24 08/14/24 15:00 23:00 07:00 Intake Total 148.75 ml 125 ml 175 ml Output Total 50 ml 100 ml Balance 148.75 ml 75 ml 75 ml medications Current Medications Medications Dose Ordered Sig/Colleen Route Start Time Stop Time Status Last Admin Dose Admin Ondansetron HCl 4 mg Q4HP PRN IV 08/08/24 19:00 08/11/24 14:14 4 MG Acetaminophen 650 mg Q6HP PRN PO 08/08/24 19:00 Nitroglycerin 0.4 mg Q5MINP PRN SL 08/08/24 19:00 Morphine Sulfate 2 mg Q30M PRN IV 08/08/24 19:00 Pantoprazole Sodium 40 mg DAILY IV 08/10/24 10:00 08/13/24 09:14 40 MG Norepinephrine Bitartrate 250 ml @ 3.75 mls/hr Q24H IV 08/09/24 13:30 08/12/24 01:02 7.5 MLS/HR Piperacillin Sod/ Tazobactam Sod 100 ml @ 25 mls/hr Q12HR IV 08/10/24 22:00 08/13/24 22:25 25 MLS/HR Ipratropium [place] 0.5 mg Q6HR NEB 08/11/24 18:00 08/14/24 05:26 0.5 MG Albuterol 2.5 mg Q6HR NEB 08/11/24 18:00 08/14/24 05:26 2.5 MG Mexiletine HCl 150 mg Q8HR PO 08/12/24 14:00 08/14/24 05:42 150 MG Amiodarone HCl 200 mg BID PO 4/2/25 22:00 08/13/24 22:25 200 MG Midodrine 10 mg TID@0600,1200,1800 PO 08/12/24 18:00 08/14/24 05:41 10 MG Enteral Nutritional Formula 28.8 gm DAILY PO 08/13/24 10:00 08/13/24 08:48 28.8 GM Enteral Nutritional Formula 240 ml DAILY PO 08/13/24 10:00 08/13/24 08:48 240 ML Heparin Sodium/ Dextrose 250 ml @ 4 mls/hr Q24H IV 08/13/24 06:00 Hold laboratory and microbiology Laboratory Tests 08/13/24 15:15 08/13/24 04:34 Test 08/13/24 04:34 Range/Units Serum Glucose 111 H 74-106 mg/dL Assessment/Plan Patient is a 64-year-old gentleman who was brought to the hospital for arrest. Reportedly the patient had hemodialysis and was being taken back, when he arrested at transport vehicle and was brought to the hospital. Reportedly EMS was performing CPR prior to arrival to the hospital which was continued in emergency room. Patient is intubated and is being managed in [facility]/ICU. Cardiology is involved for cardiac aspects of care. Patient is known to our practice from before. It is of note that the patient was in the hospital in mid June up to early July for an episode of cardiac arrest/VFib. At that time he was started on amiodarone/mexiletine. It is also of note that the patient was brought back later in July and for some reason the antiarrhythmic drugs were not continued (was not seen by Cardiology at that point). Review of the transfer notes reveals that he has not been taking the above noted antiarrhythmics. It is also of note that the patient did have angiogram in late June which revealed patent stents and no indication for intervention. Patient does have a Medtronic BiV-ICD. He does have baseline history of noncompliance. He also has history of repeated GI bleedings and also DVT. Prior to this arrival, the patient was not on any anticoagulation (was it held because of GI bleeding/pancytopenia?). Extubated. No JVD. Mucosa is pink and wet. No carotid bruit. Lungs: Scattered rhonchi in the lungs is heard. Cardiac: Regular, systolic murmur 3/6 in the apex is heard. The site for ICD implantation looks clean with no erythema/ecchymosis/tenderness. Abdomen is soft. Bowel sound is positive. Extremities reveal 3+ edema bilaterally in lower and upper ext. 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 Echocardiogram of April 08, 2024 had reported four-chamber dilatation, ejection fraction of 20%, [id number] MR/TR and right ventricular systolic pressure of 75 mm Hg Echocardiogram of May 19, 2024 had reported four-chamber dilatation, ejection fraction of 35%, D shaped septum, pulmonary hypertension, mobile interatrial septum, [id number] aortic insufficiency, mild mitral regurgitation, moderate TR and right ventricular systolic pressure of 80 mm Hg Echocardiogram of June 28, 2024 reported ejection fraction of 20%, septal flattening and biatrial enlargement Left heart catheterization of July 06, 2024 revealed no obstructive coronary artery disease. There was patent stents in LAD/RCA. Troponin (high sensitive): 42 - 41 - 50 BNP: 416.54 D-Dimer: 3.80 Chest x-ray revealed: IMPRESSION: 1. Endotracheal tube in place 9.3 cm above the elizabeth. 2. Right internal jugular catheter in place in the superior vena cava 3. Enteric tube at the gastroesophageal junction recommend advancement 3-4 inches. 4. Dual-chamber biventricular pacemaker in place with pulse generator over the left chest, 5. Right lower lobe infiltrate and effusion worse than 07/30/2024 tubing overlying the lower right lung field correlate for possible chest tube placement. Repeat chest x-ray revealed: IMPRESSION: 1. Endotracheal tube has been repositioned now 7.6 cm above the elizabeth. Repeat chest x-ray revealed: IMPRESSION: 1. Endotracheal tube has been repositioned now 7.6 cm above the elizabeth. Repeat chest x-ray revealed: IMPRESSION: Bibasilar atelectasis or pneumonia. Repeat chest xry revealed: IMPRESSION: 1. Bibasilar atelectasis or pneumonia. 2. Pulmonary venous congestion. Repeat chest xry revealed: IMPRESSION: 1. Right pleural effusion. Airspace disease right lower lobe. 2. No pneumothorax. 3. Biventricular pacemaker in place unchanged 4. Hemodialysis catheter from the right in the superior vena cava above the right atrium. Repeat chest xry revealed: MPRESSION: 1. Cardiomegaly with mild congestion. 2. Right pleural effusion. Chest ultrasound revealed: IMPRESSION: 1. LARGE RIGHT PLEURAL EFFUSION. VOLUME NOT CALCULATED. CT of the head revealed: IMPRESSION: 1. No acute intracranial abnormality. CTA of lungs revealed: IMPRESSION: 1. No evidence of pulmonary embolus. 2. Large right pleural effusion. Consolidation of the left lung base may represent infectious process or atelectasis. 3. Diffuse centrilobular emphysema Venous duplex of lower ext revealed: Impression: No right or left femoropopliteal venous thrombosis. Venous duplex of upper ext revealed: IMPRESSION: Right upper extremity: Occlusive thrombophlebitis of the cephalic vein. No evidence of DVT. Moderate subcutaneous edema noted. Left upper extremity: No evidence of DVT or SVT. Telemetry reveals paced rhythm Echocardiogram reported: Left ventricle: Concentric left ventricular hypertrophy was seen. LVEF was around 25%. Septal flattening was seen. Paradoxical septal motion was observed. Right ventricle was dilated with reduced systolic function. Both atria were dilated. Pacing wire were seen right-sided chambers. Aortic valve was not well visualized. There was mild aortic insufficiency. There was no aortic stenosis. There was mild mitral regurgitation. There was mild to moderate tricuspid regurgitation. Pulmonary valve was not well visualized. Right ventricular systolic pressure was assessed at 52 mm Hg. There was no pericardial effusion. ICD interrogation: Medtronic BiV-ICD interrogation: Remaining battery: 3.8 years; DDD: 80/130; Pacing impedance: 399 A/361 RV Ohms; Defibrillation independence: RV = 39 Ohms; Repeated shocks for VT/VF Patient is a 64-year-old gentleman who presented with post arrest. It is of note that the patient did have arrest (V-tach VFib) in June 2024. At that point he was started on some antiarrhythmics which unfortunately have not been continued as outpatient. Serial high sensitive troponin has been negative and acute coronary syndrome is not considered for clinical presentation at this point. We do have a recent cardiac catheterization also (June 2024). It is also of note that the patient does have history of repeated DVTs and also pancytopenia/GI bleedings. Acute arrest Rule out PE s/p Defibrillation secondary to V-fib/Vtach (in June 2024) Encephalopathy? Baseline pulmonary hypertension Baseline systolic heart failure Status post BiV-ICD End-stage renal disease, Noncompliant with medication, followups and hemodialysis Pancytopenia History of GI bleeding Cephalic vein thrombosis VT/VF Cardiac suggestion for management: Manage in [facility]/ICU Follow-up electrolytes and kidney function tests and correct abnormalities Amiodarone/mexiletine Daily 81 mg ASA Evaluation and management of pleural effusion as per Pulmonary/primary team DVT prophylaxis Further evaluation and management depends on the above and clinical course A total of 75 minutes was spent reviewing the patient record, examining the patient, making a diagnostic and therapeutic plan, discussing this plan with medical personnel, following up on diagnostic studies and following the patient for clinical stability excluding any and all procedures. At least 50% of this time was spent in direct, [id number] contact. Thank you for allowing me to participate in this patient's care. Further recommendations will depend on patient's clinical course. Please do not hesitate to contact me if you have any questions or concerns. This medical document was created using electronic medical record system with [employer] computerized dictation system. Although this document has been carefully reviewed, there may still be some phonetic and typographical errors. These areas are purely typographical due to the imperfection of the software programs, and do not reflect any compromise in the patient's medical care. Dietary Evaluation Review Recommendations by RD: Protein Supplementation Comments: 1) Initiate Pro-Stat @ 30 mL qd 2) Initiate Ovi @ 1 pk bid 3) Initiate Nephro-Eri @ 1 tb qd 4) If patient remains NPO > 7 days, consider EN/TPN to meet at least 75% of estimated daily needs 5) Advance to renal standard diet when medically feasible, pending BLACKSMITH APPRENTICE approval 4) Continue to monitor I&O, labs, and skin integrity Expected Outcomes/Goals: 1) patient to receive nutritional support within 7 days 2) labs and wound to improve 3) diet to advance 4) f/u in 2-3 days Plan discussed with: Patient, Other (nurse) SUSHMA WALKER MD Aug 14, 2024 06:49
[2024-08-14 07:36] LABS: INR 1.19 (0.9-1.15); Partial Thromboplastin Time 40.2 SEC (24.5-34.5); Prothrombin Time 12.4 sec (9.3-11.8)
[2024-08-14 07:39] LABS: Alkaline Phosphatase 84 U/L (46-116); Anion Gap 8 (5-15); BUN/Creatinine Ratio 6.8 (10.0-20.0); Basophils # (auto) 0.1 10 ^3/uL (0-0.2); Blood Urea Nitrogen 22 mg/dL (9-23); Carbon Dioxide 30 mmol/L (20-31); Chloride 99 mmol/L (98-107); Glucose 82 mg/dL (74-106); Hemoglobin 7.6 g/dL (13.5-17.5); Mean Corpuscular Hgb Conc. 33.3 g/dL (32.0-36.0); Monocytes # (auto) 0.3 10 ^3/uL (0-1.3); Neutrophils # (auto) 1.3 10 ^3/uL (1.6-8.6); Potassium 3.8 mmol/L (3.5-5.1); Sodium 137 mmol/L (136-145); White Blood Cell 2.2 10^3/uL (4.4-10.8)
[2024-08-14 07:40] LABS: Bilirubin, Total 0.4 mg/dL (0.2-1.0)
[2024-08-14 07:41] LABS: Alanine Aminotransferase < 9 U/L (7-40); Aspartate Aminotransferase 9 U/L (13-40); Total Protein 5.1 g/dL (5.7-8.2)
[2024-08-14 07:45] LABS: Basophils % (auto) 3.1 % (0.0-2.0); Eosinophils # (auto) 0.2 10 ^3/uL (0-0.8); Eosinophils % (auto) 10.2 % (0.0-7.0); Hematocrit 22.9 % (41.0-53.0); Lymphocytes # (auto) 0.3 10 ^3/uL (0.4-5.4); Mean Corpuscular Hemoglobin 33.2 pg (28.0-32.0); Mean Corpuscular Volume 99.6 fL (80.0-100.0); Monocytes % (auto) 15.3 % (0.0-12.0); Neutrophils % (auto) 59.4 % (37.0-80.0); Platelet Count (auto) 87 10^3/uL (140-450)
[2024-08-14 07:46] LABS: Red Cell Distribution Width 20.3 % (11.8-14.3)
--- NOTE | 2024-08-14 11:37 | DVHPN2 ---
Progress Note - Dictate Date Seen: Aug 14, 2024 Medical Necessity Reason Pt with a Central, PICC or Fol: Yes The following are medically ne: Central Line, Lynne Catheter Reason for lynne catheter: Strict I&O Subjective Covering for Dr. Zhong Patient seen and examined Overnight events reviewed vital signs Vital Sign Date Time Temp Pulse Resp B/P (MAP) Pulse Ox O2 Delivery O2 Flow Rate FiO2 08/14/24 11:26 66 20 100 08/14/24 11:20 Nasal Cannula* 2 28 08/14/24 06:45 123/53 (76) 08/14/24 04:45 98.1 98.1 Total Intake and Output 08/13/24 08/13/24 08/14/24 15:00 23:00 07:00 Intake Total 148.75 ml 125 ml 175 ml Output Total 50 ml 100 ml Balance 148.75 ml 75 ml 75 ml medications Current Medications Medications Dose Ordered Sig/Colleen Route Start Time Stop Time Status Last Admin Dose Admin Ondansetron HCl 4 mg Q4HP PRN IV 08/08/24 19:00 08/11/24 14:14 4 MG Acetaminophen 650 mg Q6HP PRN PO 08/08/24 19:00 Nitroglycerin 0.4 mg Q5MINP PRN SL 08/08/24 19:00 Morphine Sulfate 2 mg Q30M PRN IV 08/08/24 19:00 Pantoprazole Sodium 40 mg DAILY IV 08/10/24 10:00 08/14/24 09:33 40 MG Norepinephrine Bitartrate 250 ml @ 3.75 mls/hr Q24H IV 08/09/24 13:30 08/12/24 01:02 7.5 MLS/HR Piperacillin Sod/ Tazobactam Sod 100 ml @ 25 mls/hr Q12HR IV 08/10/24 22:00 08/14/24 09:33 25 MLS/HR Ipratropium [place] 0.5 mg Q6HR NEB 08/11/24 18:00 08/14/24 11:19 0.5 MG Albuterol 2.5 mg Q6HR NEB 08/11/24 18:00 08/14/24 11:19 2.5 MG Mexiletine HCl 150 mg Q8HR PO 08/12/24 14:00 08/14/24 05:42 150 MG Amiodarone HCl 200 mg BID PO 08/12/24 22:00 08/14/24 09:33 200 MG Midodrine 10 mg TID@0600,1200,1800 PO 08/12/24 18:00 08/14/24 05:41 10 MG Enteral Nutritional Formula 28.8 gm DAILY PO 08/13/24 10:00 08/14/24 09:34 28.8 GM Enteral Nutritional Formula 240 ml DAILY PO 08/13/24 10:00 08/13/24 08:48 240 ML Heparin Sodium/ Dextrose 250 ml @ 4 mls/hr Q24H IV 08/13/24 06:00 Hold Aspirin 81 mg DAILY PO 08/14/24 10:00 laboratory and microbiology Laboratory Tests 08/14/24 06:33 Test 08/14/24 06:33 Range/Units Serum Glucose 82 74-106 mg/dL Assessment/Plan Impression Acute hypoxemic respiratory failure S/p cardiac arrest ESRD on HD Hx of DVT CHF Patient seen and examined in [facility] Events Required bipap overnight Transitioned to 3 liters nasal cannula Hemodynamics improving, off pressors Patient declining hemodialysis today Education regarding benefits of hemodialysis and potential respiratory complications provided at the bedside Patient verbalized understanding however still declining at this time Labs and imaging reviewed Hemoglobin trending down No signs of active bleeding Management Supplemental oxygen Titrate to maintain sats 90% or above Incentive spirometry Prn bipap Continue antibiotics F/u cultures Bronchodilators Monitor renal function HD as per nephrology Management deferred Monitor electrolytes Supplement as needed Monitor blood count Okay to restart Eliquis if there are no signs of bleeding Okay to downgrade from pulmonary standpoint DVT prophylaxis Critical care time 35 minutes Dietary Evaluation Review Recommendations by RD: Protein Supplementation Comments: 1) Initiate Pro-Stat @ 30 mL qd 2) Initiate Ovi @ 1 pk bid 3) Initiate Nephro-Eri @ 1 tb qd 4) If patient remains NPO > 7 days, consider EN/TPN to meet at least 75% of estimated daily needs 5) Advance to renal standard diet when medically feasible, pending CONDENSER SETTER approval 4) Continue to monitor I&O, labs, and skin integrity Expected Outcomes/Goals: 1) patient to receive nutritional support within 7 days 2) labs and wound to improve 3) diet to advance 4) f/u in 2-3 days Plan discussed with: Patient INDIA FERNANDEZ MD Aug 14, 2024 11:37
[2024-08-14] MEDS: ASPirin 81 mg TAB PO SCH (12:25)
--- NOTE | 2024-08-14 14:20 | DVHPN2 ---
Progress Note - Dictate Date Seen: Aug 14, 2024 Medical Necessity Reason Pt with a Central, PICC or Fol: Yes The following are medically ne: Central Line, Lynne Catheter Reason for lynne catheter: Strict I&O Subjective no new symptoms vital signs Vital Sign Date Time Temp Pulse Resp B/P (MAP) Pulse Ox O2 Delivery O2 Flow Rate FiO2 08/14/24 13:46 68 15 127/54 (78) 98 08/14/24 12:00 98.0 98.0 08/14/24 12:00 Nasal Cannula* 3 32 Total Intake and Output 08/13/24 08/13/24 08/14/24 15:00 23:00 07:00 Intake Total 148.75 ml 125 ml 175 ml Output Total 50 ml 100 ml Balance 148.75 ml 75 ml 75 ml medications Current Medications Medications Dose Ordered Sig/Colleen Route Start Time Stop Time Status Last Admin Dose Admin Ondansetron HCl 4 mg Q4HP PRN IV 08/08/24 19:00 08/11/24 14:14 4 MG Acetaminophen 650 mg Q6HP PRN PO 08/08/24 19:00 Nitroglycerin 0.4 mg Q5MINP PRN SL 08/08/24 19:00 Morphine Sulfate 2 mg Q30M PRN IV 08/08/24 19:00 Pantoprazole Sodium 40 mg DAILY IV 08/10/24 10:00 08/14/24 09:33 40 MG Norepinephrine Bitartrate 250 ml @ 3.75 mls/hr Q24H IV 08/09/24 13:30 08/12/24 01:02 7.5 MLS/HR Piperacillin Sod/ Tazobactam Sod 100 ml @ 25 mls/hr Q12HR IV 08/10/24 22:00 08/14/24 09:33 25 MLS/HR Ipratropium [place] 0.5 mg Q6HR NEB 08/11/24 18:00 08/14/24 11:19 0.5 MG Albuterol 2.5 mg Q6HR NEB 08/11/24 18:00 08/14/24 11:19 2.5 MG Mexiletine HCl 150 mg Q8HR PO 08/12/24 14:00 08/14/24 05:42 150 MG Amiodarone HCl 200 mg BID PO 08/12/24 22:00 08/14/24 09:33 200 MG Midodrine 10 mg TID@0600,1200,1800 PO 08/12/24 18:00 08/14/24 12:25 10 MG Enteral Nutritional Formula 28.8 gm DAILY PO 08/13/24 10:00 08/14/24 09:34 28.8 GM Enteral Nutritional Formula 240 ml DAILY PO 08/13/24 10:00 08/13/24 08:48 240 ML Aspirin 81 mg DAILY PO 08/14/24 10:00 08/14/24 12:25 81 MG Apixaban 2.5 mg BID PO 08/14/24 22:00 UNV objective Gen: NAD, AAOx2 HEENT: NC, AT Lungs: decreased breath sounds Rt lung Cardiac: RRR, no murmur Abd: soft, no tenderness Neuro: no focal deficits Ext: no edema laboratory and microbiology Laboratory Tests 08/14/24 06:33 Test 08/14/24 06:33 Range/Units Serum Glucose 82 74-106 mg/dL Assessment/Plan ESRD on HD s/p cardiac arrest with ROSC Acute hypoxic respiratory failure, extubated on supplemental oxygen Sepsis secondary to pneumonia Hyponatremia Lactic acidosis Hypoalbuminemia HTN Atrial fibrillation CAD s/p stent s/p pacemaker chronic diastolic CHF Pancytopenia Plan: s/p HD Next HD on Saturday HD schedule: TTS Continue IV antibiotics NAZANIN post HD as needed. goal Hb: 10-11 g/dl Dietary Evaluation Review Recommendations by RD: Protein Supplementation Comments: 1) Initiate Pro-Stat @ 30 mL qd 2) Initiate Ovi @ 1 pk bid 3) Initiate Nephro-Eri @ 1 tb qd 4) If patient remains NPO > 7 days, consider EN/TPN to meet at least 75% of estimated daily needs 5) Advance to renal standard diet when medically feasible, pending COMMUNITY SUPPORT SPECIALIST approval 4) Continue to monitor I&O, labs, and skin integrity Expected Outcomes/Goals: 1) patient to receive nutritional support within 7 days 2) labs and wound to improve 3) diet to advance 4) f/u in 2-3 days Plan discussed with: Patient, Other SAVANNAH FAUST MD Aug 14, 2024 14:20
[2024-08-14] MEDS: APIXABAN 2.5 MG TAB PO SCH (21:35)
[2024-08-14] MEDS: hydrALAZINE HCL 20 MG/ML VL IV ONE (22:11)
[2024-08-15] VITALS (20 sets, daily range): BP systolic 126–170; BP diastolic 37–88; PULSE 68–91; RESP 16–24; TEMP 97.7–98.8; O2SAT 90–100
[2024-08-15] MEDS: SODIUM CHL 0.9% 1000 ML BAG XX ONE (07:00)
--- NOTE | 2024-08-15 11:42 | DVHPN2 ---
Progress Note - Dictate Date Seen: Aug 15, 2024 Medical Necessity Reason Pt with a Central, PICC or Fol: Yes The following are medically ne: Central Line, Lynne Catheter Reason for lynne catheter: Strict I&O Subjective no new symptoms Downgraded from ICU vital signs Vital Sign Date Time Temp Pulse Resp B/P (MAP) Pulse Ox O2 Delivery O2 Flow Rate FiO2 08/15/24 11:13 68 20 100 08/15/24 11:07 Nasal Cannula 3.0 08/15/24 11:07 28 08/15/24 05:00 98.8 144/60 (88) 98.8 Total Intake and Output 08/14/24 08/14/24 08/15/24 14:59 22:59 06:59 Intake Total 100 ml 425 ml 375 ml Output Total 30 ml Balance 100 ml 395 ml 375 ml medications Current Medications Medications Dose Ordered Sig/Colleen Route Start Time Stop Time Status Last Admin Dose Admin Ondansetron HCl 4 mg Q4HP PRN IV 08/08/24 19:00 08/11/24 14:14 4 MG Acetaminophen 650 mg Q6HP PRN PO 08/08/24 19:00 Nitroglycerin 0.4 mg Q5MINP PRN SL 08/08/24 19:00 Morphine Sulfate 2 mg Q30M PRN IV 08/08/24 19:00 Pantoprazole Sodium 40 mg DAILY IV 08/10/24 10:00 08/15/24 09:27 40 MG Piperacillin Sod/ Tazobactam Sod 100 ml @ 25 mls/hr Q12HR IV 08/10/24 22:00 08/15/24 09:26 25 MLS/HR Ipratropium [place] 0.5 mg Q6HR NEB 08/11/24 18:00 08/15/24 11:07 0.5 MG Albuterol 2.5 mg Q6HR NEB 08/11/24 18:00 08/15/24 11:07 2.5 MG Mexiletine HCl 150 mg Q8HR PO 08/12/24 14:00 08/14/24 22:00 150 MG Amiodarone HCl 200 mg BID PO 08/12/24 22:00 08/15/24 09:27 200 MG Midodrine 10 mg TID@0600,1200,1800 PO 08/12/24 18:00 08/15/24 05:31 10 MG Enteral Nutritional Formula 28.8 gm DAILY PO 08/13/24 10:00 08/15/24 09:28 28.8 GM Enteral Nutritional Formula 240 ml DAILY PO 08/13/24 10:00 08/15/24 09:29 240 ML Aspirin 81 mg DAILY PO 08/14/24 10:00 08/14/24 12:25 81 MG Apixaban 2.5 mg BID PO 08/14/24 22:00 08/14/24 21:35 2.5 MG objective Gen: NAD, AAOx2 HEENT: [place], AT Lungs: decreased breath sounds Rt lung Cardiac: RRR, no murmur Abd: soft, no tenderness Neuro: no focal deficits Ext: no edema laboratory and microbiology Laboratory Tests 08/14/24 06:33 Test 08/14/24 06:33 Range/Units Serum Glucose 82 74-106 mg/dL Assessment/Plan ESRD on HD s/p cardiac arrest with ROSC Acute hypoxic respiratory failure, extubated on supplemental oxygen Bilateral pleural effusions, small Sepsis secondary to pneumonia Hyponatremia Lactic acidosis Hypoalbuminemia HTN Atrial fibrillation CAD s/p stent s/p pacemaker chronic diastolic CHF Pancytopenia Plan: Scheduled for HD today HD schedule: TTS Patient has been off vasopressors Continue IV antibiotics NAZANIN post HD as needed. goal Hb: 10-11 g/dl Dietary Evaluation Review Recommendations by RD: Protein Supplementation Comments: 1) Initiate Pro-Stat @ 30 mL qd 2) Initiate Ovi @ 1 pk bid 3) Initiate Nephro-Eri @ 1 tb qd 4) If patient remains NPO > 7 days, consider EN/TPN to meet at least 75% of estimated daily needs 5) Advance to renal standard diet when medically feasible, pending CARTOGRAPHY/MAPPING TECHNICIAN approval 4) Continue to monitor I&O, labs, and skin integrity Expected Outcomes/Goals: 1) patient to receive nutritional support within 7 days 2) labs and wound to improve 3) diet to advance 4) f/u in 2-3 days Plan discussed with: Patient SAVANNAH FAUST MD Aug 15, 2024 11:42
--- NOTE | 2024-08-15 14:49 | DVHPN2 ---
Progress Note - Dictate Date Seen: Aug 15, 2024 Medical Necessity Reason Pt with a Central, PICC or Fol: Yes The following are medically ne: Central Line, Lynne Catheter Reason for lynne catheter: Strict I&O vital signs Vital Sign Date Time Temp Pulse Resp B/P (MAP) Pulse Ox O2 Delivery O2 Flow Rate FiO2 08/15/24 13:00 97.7 70 18 170/88 (115) 95 97.7 08/15/24 11:07 Nasal Cannula 3.0 08/15/24 11:07 28 Total Intake and Output 08/14/24 08/14/24 08/15/24 15:00 23:00 07:00 Intake Total 100 ml 450 ml 350 ml Output Total 30 ml Balance 100 ml 420 ml 350 ml medications Current Medications Medications Dose Ordered Sig/Colleen Route Start Time Stop Time Status Last Admin Dose Admin Ondansetron HCl 4 mg Q4HP PRN IV 08/08/24 19:00 08/11/24 14:14 4 MG Acetaminophen 650 mg Q6HP PRN PO 08/08/24 19:00 Nitroglycerin 0.4 mg Q5MINP PRN SL 08/08/24 19:00 Morphine Sulfate 2 mg Q30M PRN IV 08/08/24 19:00 Pantoprazole Sodium 40 mg DAILY IV 08/10/24 10:00 08/15/24 09:27 40 MG Piperacillin Sod/ Tazobactam Sod 100 ml @ 25 mls/hr Q12HR IV 08/10/24 22:00 08/15/24 09:26 25 MLS/HR Ipratropium [place] 0.5 mg Q6HR NEB 08/11/24 18:00 08/15/24 11:07 0.5 MG Albuterol 2.5 mg Q6HR NEB 08/11/24 18:00 08/15/24 11:07 2.5 MG Mexiletine HCl 150 mg Q8HR PO 08/12/24 14:00 08/14/24 22:00 150 MG Amiodarone HCl 200 mg BID PO 08/12/24 22:00 08/15/24 09:27 200 MG Midodrine 10 mg TID@0600,1200,1800 PO 08/12/24 18:00 08/15/24 05:31 10 MG Enteral Nutritional Formula 28.8 gm DAILY PO 08/13/24 10:00 08/15/24 09:28 28.8 GM Enteral Nutritional Formula 240 ml DAILY PO 08/13/24 10:00 08/15/24 09:29 240 ML Aspirin 81 mg DAILY PO 08/14/24 10:00 08/14/24 12:25 81 MG Apixaban 2.5 mg BID PO 08/14/24 22:00 08/14/24 21:35 2.5 MG laboratory and microbiology Laboratory Tests 08/14/24 06:33 Test 08/14/24 06:33 Range/Units Serum Glucose 82 74-106 mg/dL Assessment/Plan Patient is a 64-year-old gentleman who was brought to the hospital for arrest. Reportedly the patient had hemodialysis and was being taken back, when he arrested at transport vehicle and was brought to the hospital. Reportedly EMS was performing CPR prior to arrival to the hospital which was continued in emergency room. Patient is intubated and is being managed in [facility]/ICU. Cardiology is involved for cardiac aspects of care. Patient is known to our practice from before. It is of note that the patient was in the hospital in mid June up to early July for an episode of cardiac arrest/VFib. At that time he was started on amiodarone/mexiletine. It is also of note that the patient was brought back later in July and for some reason the antiarrhythmic drugs were not continued (was not seen by Cardiology at that point). Review of the transfer notes reveals that he has not been taking the above noted antiarrhythmics. It is also of note that the patient did have angiogram in late June which revealed patent stents and no indication for intervention. Patient does have a Medtronic BiV-ICD. He does have baseline history of noncompliance. He also has history of repeated GI bleedings and also DVT. Prior to this arrival, the patient was not on any anticoagulation (was it held because of GI bleeding/pancytopenia?). Extubated. No JVD. Mucosa is pink and wet. No carotid bruit. Lungs: Scattered rhonchi in the lungs is heard. Cardiac: Regular, systolic murmur 3/6 in the apex is heard. The site for ICD implantation looks clean with no erythema/ecchymosis/tenderness. Abdomen is soft. Bowel sound is positive. Extremities reveal 3+ edema bilaterally in lower and upper ext. Patient is A/O x4 , he denies chest pain, shortness of breath or palpitations. 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 Echocardiogram of April 08, 2024 had reported four-chamber dilatation, ejection fraction of 20%, [id number] MR/TR and right ventricular systolic pressure of 75 mm Hg Echocardiogram of May 19, 2024 had reported four-chamber dilatation, ejection fraction of 35%, D shaped septum, pulmonary hypertension, mobile interatrial septum, [id number] aortic insufficiency, mild mitral regurgitation, moderate TR and right ventricular systolic pressure of 80 mm Hg Echocardiogram of June 28, 2024 reported ejection fraction of 20%, septal flattening and biatrial enlargement Left heart catheterization of July 06, 2024 revealed no obstructive coronary artery disease. There was patent stents in LAD/RCA. Troponin (high sensitive): 42 - 41 - 50 BNP: 416.54 D-Dimer: 3.80 Chest x-ray revealed: IMPRESSION: 1. Endotracheal tube in place 9.3 cm above the elizabeth. 2. Right internal jugular catheter in place in the superior vena cava 3. Enteric tube at the gastroesophageal junction recommend advancement 3-4 inches. 4. Dual-chamber biventricular pacemaker in place with pulse generator over the left chest, 5. Right lower lobe infiltrate and effusion worse than 07/30/2024 tubing overlying the lower right lung field correlate for possible chest tube placement. Repeat chest x-ray revealed: IMPRESSION: 1. Endotracheal tube has been repositioned now 7.6 cm above the elizabeth. Repeat chest x-ray revealed: IMPRESSION: 1. Endotracheal tube has been repositioned now 7.6 cm above the elizabeth. Repeat chest x-ray revealed: IMPRESSION: Bibasilar atelectasis or pneumonia. Repeat chest xry revealed: IMPRESSION: 1. Bibasilar atelectasis or pneumonia. 2. Pulmonary venous congestion. Repeat chest xry revealed: IMPRESSION: 1. Right pleural effusion. Airspace disease right lower lobe. 2. No pneumothorax. 3. Biventricular pacemaker in place unchanged 4. Hemodialysis catheter from the right in the superior vena cava above the right atrium. Repeat chest xry revealed: MPRESSION: 1. Cardiomegaly with mild congestion. 2. Right pleural effusion. Chest ultrasound revealed: IMPRESSION: 1. LARGE RIGHT PLEURAL EFFUSION. VOLUME NOT CALCULATED. CT of the head revealed: IMPRESSION: 1. No acute intracranial abnormality. CTA of lungs revealed: IMPRESSION: 1. No evidence of pulmonary embolus. 2. Large right pleural effusion. Consolidation of the left lung base may represent infectious process or atelectasis. 3. Diffuse centrilobular emphysema Venous duplex of lower ext revealed: Impression: No right or left femoropopliteal venous thrombosis. Venous duplex of upper ext revealed: IMPRESSION: Right upper extremity: Occlusive thrombophlebitis of the cephalic vein. No evidence of DVT. Moderate subcutaneous edema noted. Left upper extremity: No evidence of DVT or SVT. Telemetry reveals paced rhythm Echocardiogram reported: Left ventricle: Concentric left ventricular hypertrophy was seen. LVEF was around 25%. Septal flattening was seen. Paradoxical septal motion was observed. Right ventricle was dilated with reduced systolic function. Both atria were dilated. Pacing wire were seen right-sided chambers. Aortic valve was not well visualized. There was mild aortic insufficiency. There was no aortic stenosis. There was mild mitral regurgitation. There was mild to moderate tricuspid regurgitation. Pulmonary valve was not well visualized. Right ventricular systolic pressure was assessed at 52 mm Hg. There was no pericardial effusion. ICD interrogation: Medtronic BiV-ICD interrogation: Remaining battery: 3.8 years; DDD: 80/130; Pacing impedance: 399 A/361 RV Ohms; Defibrillation independence: RV = 39 Ohms; Repeated shocks for VT/VF Patient is a 64-year-old gentleman who presented with post arrest. It is of note that the patient did have arrest (V-tach VFib) in June 2024. At that point he was started on some antiarrhythmics which unfortunately have not been continued as outpatient. Serial high sensitive troponin has been negative and acute coronary syndrome is not considered for clinical presentation at this point. We do have a recent cardiac catheterization also (June 2024). It is also of note that the patient does have history of repeated DVTs and also pancytopenia/GI bleedings. Acute arrest Rule out PE s/p Defibrillation secondary to V-fib/Vtach (in June 2024) Encephalopathy? Baseline pulmonary hypertension Baseline systolic heart failure Status post BiV-ICD End-stage renal disease, Noncompliant with medication, followups and hemodialysis Pancytopenia History of GI bleeding Cephalic vein thrombosis VT/VF Cardiac suggestion for management: Manage in Telemetry Follow-up electrolytes and kidney function tests and correct abnormalities Amiodarone/mexiletine Daily 81 mg ASA Evaluation and management of pleural effusion as per Pulmonary/primary team DVT prophylaxis Further evaluation and management depends on the above and clinical course A total of 75 minutes was spent reviewing the patient record, examining the patient, making a diagnostic and therapeutic plan, discussing this plan with medical personnel, following up on diagnostic studies and following the patient for clinical stability excluding any and all procedures. At least 50% of this time was spent in direct, [id number] contact. Thank you for allowing me to participate in this patient's care. Further recommendations will depend on patient's clinical course. Please do not hesitate to contact me if you have any questions or concerns. This medical document was created using electronic medical record system with [employer] computerized dictation system. Although this document has been carefully reviewed, there may still be some phonetic and typographical errors. These areas are purely typographical due to the imperfection of the software programs, and do not reflect any compromise in the patient's medical care. Dietary Evaluation Review Recommendations by RD: Protein Supplementation Comments: 1) Initiate Pro-Stat @ 30 mL qd 2) Initiate Ovi @ 1 pk bid 3) Initiate Nephro-Eri @ 1 tb qd 4) If patient remains NPO > 7 days, consider EN/TPN to meet at least 75% of estimated daily needs 5) Advance to renal standard diet when medically feasible, pending TURN MACHINE OPERATOR approval 4) Continue to monitor I&O, labs, and skin integrity Expected Outcomes/Goals: 1) patient to receive nutritional support within 7 days 2) labs and wound to improve 3) diet to advance 4) f/u in 2-3 days Plan discussed with: Patient, Other (Primary RN) FRANCE SHEPHERD FIELD TECHNICAL SPECIALIST Aug 15, 2024 14:49
--- NOTE | 2024-08-15 17:57 | DVHPN2 ---
Subjective I am assuming the care of the patient from today onwards. Patient was a ICU downgrade. Patient has a known history of CAD, hypertension, dyslipidemia, end- stage renal disease on hemodialysis, paroxysmal AFib who was at dialysis center after dialysis he went to post acute. Patient's became unresponsive was brought to ER. Patient's has a cardiopulmonary arrest status post intubation in ER with a return of spontaneous circulation after 9 minutes. Patient was seen and evaluated by feeling much better. Reviewed: Care Plan, H&P, Labs, Medications, Previous Orders, Radiology Changes from previous H/P or p: No Changes Objective Vitals Vital Signs Date Time Temp Pulse Resp B/P (MAP) Pulse Ox O2 Delivery O2 Flow Rate FiO2 08/15/24 17:00 98.0 81 18 131/63 (85) 99 98.0 08/15/24 11:07 Nasal Cannula 3.0 08/15/24 11:07 28 Intake/Output Intake and Output 08/15/24 07:00 Intake Total 900 ml Output Total 30 ml Balance 870 ml Intake Oral 700 ml IV Total 200 ml Output Urine Total 30 ml # Bowel Movements 2 Exam HEENT pupils are reactive Neck is supple CV is S1-S2 regular rate and rhythm Respiratory diminished breath sounds bases GI positive bowel sound Extremity no edema STREETCAR CONDUCTOR following commands Medications Current Medications Medications Dose Ordered Sig/Colleen Route Start Time Stop Time Status Last Admin Dose Admin Ondansetron HCl 4 mg Q4HP PRN IV 08/08/24 19:00 08/11/24 14:14 4 MG Acetaminophen 650 mg Q6HP PRN PO 08/08/24 19:00 Nitroglycerin 0.4 mg Q5MINP PRN SL 08/08/24 19:00 Morphine Sulfate 2 mg Q30M PRN IV 08/08/24 19:00 Pantoprazole Sodium 40 mg DAILY IV 08/10/24 10:00 08/15/24 09:27 40 MG Piperacillin Sod/ Tazobactam Sod 100 ml @ 25 mls/hr Q12HR IV 08/10/24 22:00 08/15/24 09:26 25 MLS/HR Mexiletine HCl 150 mg Q8HR PO 08/12/24 14:00 08/15/24 17:21 150 MG Amiodarone HCl 200 mg BID PO 08/12/24 22:00 08/15/24 09:27 200 MG Midodrine 10 mg TID@0600,1200,1800 PO 08/12/24 18:00 08/15/24 05:31 10 MG Enteral Nutritional Formula 28.8 gm DAILY PO 08/13/24 10:00 08/15/24 09:28 28.8 GM Enteral Nutritional Formula 240 ml DAILY PO 08/13/24 10:00 08/15/24 09:29 240 ML Aspirin 81 mg DAILY PO 08/14/24 10:00 08/14/24 12:25 81 MG Apixaban 2.5 mg BID PO 08/14/24 22:00 08/14/24 21:35 2.5 MG Albuterol 2.5 mg Q6HPRN PRN NEB 08/15/24 17:45 Ipratropium [place] 0.5 mg Q6HPRN PRN NEB 08/15/24 17:45 Laboratory Results Laboratory Tests 08/14/24 06:33 Urinalysis Test 08/08/24 18:09 Urine Color Light-yellow (Yellow) Urine Clarity Clear (Clear) Urine pH 7.5 (5.0-9.0) Urine Specific [place] 1.011 (1.001-1.035) Urine Protein 1+ (Negative) H Urine Ketones Negative (Negative) Urine Blood Negative /uL (Negative) Urine Nitrite Negative (Negative) Urine Bilirubin Negative (Negative) Urine Urobilinogen Normal mg/dL (Negative) Urine Leukocyte Esterase Negative /uL (Negative) Urine RBC 1 /hpf (0 - 3) Urine Microscopic WBC 1 /HPF (0-3) Urine Squamous Epithelial Cells Few /hpf (<5) Urine Bacteria None seen /hpf (None Seen) Urine Glucose 3+ mg/dL (Normal) H Microbiology Microbiology Date/Time Source Procedure Growth Status 08/11/24 19:50 Pleural Fluid Gram Stain - Final Resulted 08/11/24 19:50 Pleural Fluid Body Fluid Culture - Preliminary Resulted 08/09/24 01:32 Nose MRSA Screen - Final Complete 08/08/24 21:20 Sputum Gram Stain - Final Complete 08/08/24 21:20 Sputum Respiratory Culture - Final Complete 08/08/24 18:04 Blood Blood Culture - Final NO GROWTH AFTER 5 DAYS OF INCUBATION. Complete Assessment/Plan Assessment/Plan 64-year-old male with a known history of end-stage renal disease on hemodialysis, coronary artery disease, paroxysmal AFib, hypertension who initially presented to the hospital with cardiopulmonary arrest found to have 1. Acute hypoxic respiratory failure requiring intubation, extubation on August 11. Currently on O2 supplementation 2. End-stage renal disease on hemodialysis 3. Bilateral pleural effusion 4. Sepsis secondary to pneumonia 5. Hypertension 6. Paroxysmal AFib 7. Known coronary artery disease status post PCI 8. Status post AICD 9. Chronic diastolic heart failure -continue dialysis per renal, continue antibiotics, follow up Cardiology nephrology recommendation Plan discussed with: Patient, Other Date of Service: Aug 15, 2024 Billing Provider: PETROS ORTIZ MD Common Visit Codes: [id number] INP/OBS CARE(MOD) PETROS ORTIZ MD Aug 15, 2024 17:57
[2024-08-15] MEDS: EPOETIN ALFA-EPBX 10,000 UNIT/1ML VIAL SC ONE (21:00)
[2024-08-16] VITALS (13 sets, daily range): BP systolic 141–172; BP diastolic 59–83; PULSE 78–87; RESP 16–22; TEMP 97.9–98.5; O2SAT 92–98
[2024-08-16 10:40] LABS: Basophils # (auto) 0.1 10 ^3/uL (0-0.2); Eosinophils # (auto) 0.3 10 ^3/uL (0-0.8); Eosinophils % (auto) 12.4 % (0.0-7.0); Lymphocytes # (auto) 0.3 10 ^3/uL (0.4-5.4); Lymphocytes % (auto) 11.2 % (10.0-50.0); Monocytes # (auto) 0.4 10 ^3/uL (0-1.3); Nucleated Red Blood Cells % 0.1 %; White Blood Cell 2.7 10^3/uL (4.4-10.8)
[2024-08-16 10:41] LABS: Basophils % (auto) 5.5 % (0.0-2.0); Hematocrit 25.8 % (41.0-53.0); Hemoglobin 8.2 g/dL (13.5-17.5); Mean Corpuscular Hemoglobin 32.1 pg (28.0-32.0); Mean Corpuscular Hgb Conc. 31.9 g/dL (32.0-36.0); Mean Corpuscular Volume 100.6 fL (80.0-100.0); Monocytes % (auto) 14.8 % (0.0-12.0); Neutrophils # (auto) 1.5 10 ^3/uL (1.6-8.6); Neutrophils % (auto) 56.1 % (37.0-80.0); Platelet Count (auto) 103 10^3/uL (140-450); Red Blood Cells 2.56 10^6/uL (4.5-5.90)
[2024-08-16 10:43] LABS: Red Cell Distribution Width 21.1 % (11.8-14.3)
[2024-08-16 10:47] LABS: Chloride 99 mmol/L (98-107); Sodium 137 mmol/L (136-145)
[2024-08-16 10:48] LABS: Anion Gap 6 (5-15)
[2024-08-16 10:49] LABS: Calcium 9.5 mg/dL (8.7-10.4)
[2024-08-16 10:51] LABS: Carbon Dioxide 32 mmol/L (20-31); Potassium 3.4 mmol/L (3.5-5.1)
[2024-08-16 10:54] LABS: BUN/Creatinine Ratio 8.6 (10.0-20.0); Magnesium 2.1 mg/dL (1.6-2.6)
[2024-08-16 10:55] LABS: Blood Urea Nitrogen 30 mg/dL (9-23); Glucose 121 mg/dL (74-106)
[2024-08-16 11:04] LABS: Anisocytosis Slight; Macrocytosis Slight; Ovalocytes FEW; Platelet Estimate Decreased
--- NOTE | 2024-08-16 12:01 | DVHPN2 ---
Progress Note - Dictate Date Seen: Aug 16, 2024 Medical Necessity Reason Pt with a Central, PICC or Fol: Yes The following are medically ne: Central Line, Lynne Catheter Reason for lynne catheter: Strict I&O Subjective no new symptoms Downgraded from ICU vital signs Vital Sign Date Time Temp Pulse Resp B/P (MAP) Pulse Ox O2 Delivery O2 Flow Rate FiO2 08/16/24 08:15 Nasal Cannula* 3 32 08/16/24 05:00 98.1 86 16 142/70 (94) 95 98.1 Total Intake and Output 08/15/24 08/15/24 08/16/24 15:00 23:00 07:00 Intake Total 100 ml 472 ml 300 ml Output Total 100 ml 150 ml Balance 100 ml 372 ml 150 ml medications Current Medications Medications Dose Ordered Sig/Colleen Route Start Time Stop Time Status Last Admin Dose Admin Ondansetron HCl 4 mg Q4HP PRN IV 08/08/24 19:00 08/11/24 14:14 4 MG Acetaminophen 650 mg Q6HP PRN PO 08/08/24 19:00 Nitroglycerin 0.4 mg Q5MINP PRN SL 08/08/24 19:00 Morphine Sulfate 2 mg Q30M PRN IV 08/08/24 19:00 Pantoprazole Sodium 40 mg DAILY IV 08/10/24 10:00 08/16/24 09:37 40 MG Piperacillin Sod/ Tazobactam Sod 100 ml @ 25 mls/hr Q12HR IV 08/10/24 22:00 08/16/24 09:39 25 MLS/HR Mexiletine HCl 150 mg Q8HR PO 08/12/24 14:00 08/16/24 06:34 150 MG Amiodarone HCl 200 mg BID PO 08/12/24 22:00 08/16/24 09:33 200 MG Midodrine 10 mg TID@0600,1200,1800 PO 08/12/24 18:00 08/15/24 05:31 10 MG Enteral Nutritional Formula 28.8 gm DAILY PO 08/13/24 10:00 08/16/24 09:42 28.8 GM Enteral Nutritional Formula 240 ml DAILY PO 08/13/24 10:00 08/16/24 09:42 240 ML Aspirin 81 mg DAILY PO 08/14/24 10:00 08/14/24 12:25 81 MG Apixaban 2.5 mg BID PO 08/14/24 22:00 08/14/24 21:35 2.5 MG Albuterol 2.5 mg Q6HPRN PRN NEB 08/15/24 17:45 Ipratropium [place] 0.5 mg Q6HPRN PRN NEB 08/15/24 17:45 objective Gen: NAD, AAOx2 HEENT: NC, AT Lungs: decreased breath sounds Rt lung Cardiac: RRR, no murmur Abd: soft, no tenderness Neuro: no focal deficits Ext: no edema laboratory and microbiology Laboratory Tests 08/16/24 10:20 Test 08/16/24 10:20 Range/Units Serum Glucose 121 H 74-106 mg/dL Assessment/Plan ESRD on HD s/p cardiac arrest with ROSC Acute hypoxic respiratory failure, extubated on supplemental oxygen Bilateral pleural effusions, small Sepsis secondary to pneumonia Hyponatremia Lactic acidosis Hypoalbuminemia HTN Atrial fibrillation CAD s/p stent s/p pacemaker chronic diastolic CHF Pancytopenia Plan: s/p HD Saturday Next HD on Saturday HD schedule: TTS Patient has been off vasopressors Continue IV antibiotics NAZANIN post HD as needed. goal Hb: 10-11 g/dl Dietary Evaluation Review Recommendations by RD: Protein Supplementation Comments: 1) Initiate Pro-Stat @ 30 mL qd 2) Initiate Ovi @ 1 pk bid 3) Initiate Nephro-Eri @ 1 tb qd 4) If patient remains NPO > 7 days, consider EN/TPN to meet at least 75% of estimated daily needs 5) Advance to renal standard diet when medically feasible, pending MAINTENANCE SHOP MANAGER approval 4) Continue to monitor I&O, labs, and skin integrity Expected Outcomes/Goals: 1) patient to receive nutritional support within 7 days 2) labs and wound to improve 3) diet to advance 4) f/u in 2-3 days Plan discussed with: Patient, Other SAVANNAH FAUST MD Aug 16, 2024 12:01
[2024-08-16] MEDS: cloNIDine HCL 0.1 MG TAB PO PRN (16:54)
--- NOTE | 2024-08-16 17:22 | DVHPN2 ---
Subjective Patient was a ICU downgrade. Patient has a known history of CAD, hypertension, dyslipidemia, end-stage renal disease on hemodialysis, paroxysmal AFib who was at dialysis center after dialysis he went to post acute. Patient's became unresponsive was brought to ER. Patient's has a cardiopulmonary arrest status post intubation in ER with a return of spontaneous circulation after 9 minutes. Patient was seen and evaluated by feeling much better. Reviewed: Care Plan, H&P, Labs, Medications, Previous Orders, Radiology Changes from previous H/P or p: No Changes Objective Vitals Vital Signs Date Time Temp Pulse Resp B/P (MAP) Pulse Ox O2 Delivery O2 Flow Rate FiO2 08/16/24 16:54 172/71 08/16/24 15:26 87 19 08/16/24 14:00 94 Nasal Cannula 3.0 08/16/24 14:00 32 08/16/24 13:00 98.5 98.5 Intake/Output Intake and Output 08/16/24 07:00 Intake Total 872 ml Output Total 250 ml Balance 622 ml Intake Oral 672 ml IV Total 200 ml Output Urine Total 250 ml # Bowel Movements 3 Exam HEENT pupils are reactive Neck is supple CV is S1-S2 regular rate and rhythm Respiratory diminished breath sounds bases GI positive bowel sound Extremity no edema WOOD TILE INSTALLATION HELPER following commands Medications Current Medications Medications Dose Ordered Sig/Colleen Route Start Time Stop Time Status Last Admin Dose Admin Ondansetron HCl 4 mg Q4HP PRN IV 08/08/24 19:00 08/11/24 14:14 4 MG Acetaminophen 650 mg Q6HP PRN PO 08/08/24 19:00 Nitroglycerin 0.4 mg Q5MINP PRN SL 08/08/24 19:00 Morphine Sulfate 2 mg Q30M PRN IV 08/08/24 19:00 Pantoprazole Sodium 40 mg DAILY IV 08/10/24 10:00 08/16/24 09:37 40 MG Piperacillin Sod/ Tazobactam Sod 100 ml @ 25 mls/hr Q12HR IV 08/10/24 22:00 08/16/24 09:39 25 MLS/HR Mexiletine HCl 150 mg Q8HR PO 08/12/24 14:00 08/16/24 14:28 150 MG Amiodarone HCl 200 mg BID PO 08/12/24 22:00 08/16/24 09:33 200 MG Enteral Nutritional Formula 28.8 gm DAILY PO 08/13/24 10:00 08/16/24 09:42 28.8 GM Enteral Nutritional Formula 240 ml DAILY PO 08/13/24 10:00 08/16/24 09:42 240 ML Aspirin 81 mg DAILY PO 08/14/24 10:00 08/14/24 12:25 81 MG Apixaban 2.5 mg BID PO 08/14/24 22:00 08/14/24 21:35 2.5 MG Albuterol 2.5 mg Q6HPRN PRN NEB 08/15/24 17:45 Ipratropium [place] 0.5 mg Q6HPRN PRN NEB 08/15/24 17:45 Clonidine HCl 0.1 mg TID PRN PO 08/16/24 15:00 08/16/24 16:54 0.1 MG Laboratory Results Laboratory Tests 08/16/24 10:20 Chemistry Test 08/16/24 10:20 Calcium Level 9.5 mg/dL (8.7-10.4) Magnesium Level 2.1 mg/dL (1.6-2.6) Urinalysis Test 08/08/24 18:09 Urine Color Light-yellow (Yellow) Urine Clarity Clear (Clear) Urine pH 7.5 (5.0-9.0) Urine Specific [place] 1.011 (1.001-1.035) Urine Protein 1+ (Negative) H Urine Ketones Negative (Negative) Urine Blood Negative /uL (Negative) Urine Nitrite Negative (Negative) Urine Bilirubin Negative (Negative) Urine Urobilinogen Normal mg/dL (Negative) Urine Leukocyte Esterase Negative /uL (Negative) Urine RBC 1 /hpf (0 - 3) Urine Microscopic WBC 1 /HPF (0-3) Urine Squamous Epithelial Cells Few /hpf (<5) Urine Bacteria None seen /hpf (None Seen) Urine Glucose 3+ mg/dL (Normal) H Microbiology Microbiology Date/Time Source Procedure Growth Status 08/11/24 19:50 Pleural Fluid Gram Stain - Final Resulted 08/11/24 19:50 Pleural Fluid Body Fluid Culture - Preliminary Resulted 08/09/24 01:32 Nose MRSA Screen - Final Complete 08/08/24 21:20 Sputum Gram Stain - Final Complete 08/08/24 21:20 Sputum Respiratory Culture - Final Complete 08/08/24 18:04 Blood Blood Culture - Final NO GROWTH AFTER 5 DAYS OF INCUBATION. Complete Assessment/Plan Assessment/Plan 64-year-old male with a known history of end-stage renal disease on hemodialysis, coronary artery disease, paroxysmal AFib, hypertension who initially presented to the hospital with cardiopulmonary arrest found to have 1. Acute hypoxic respiratory failure requiring intubation, extubation on August 11. Currently on O2 supplementation 2. End-stage renal disease on hemodialysis 3. Bilateral pleural effusion 4. Sepsis secondary to pneumonia 5. Hypertension 6. Paroxysmal AFib 7. Known coronary artery disease status post PCI 8. Status post AICD 9. Chronic diastolic heart failure -continue dialysis per renal, continue antibiotics, follow up Cardiology nephrology recommendation -physical therapy evaluation and treatment. -patient's came from voiding care but may need long-term facility placement. Plan discussed with: Patient My Orders Orders - PETROS ORTIZ MD Procedure Category Date Status Time Pt Request For Service PT 08/15/24 Logged 17:59 Pt Request For Service PT 08/16/24 Logged 12:36 Clonidine Hcl Tablet PHA 08/16/24 In Process (Catapres Tablet) 15:00 Date of Service: Aug 16, 2024 Billing Provider: PETROS ORTIZ MD Common Visit Codes: [id number] INP/OBS CARE(MOD) PETROS ORTIZ MD Aug 16, 2024 17:22
[2024-08-17] VITALS (11 sets, daily range): BP systolic 125–148; BP diastolic 61–90; PULSE 73–85; RESP 17–20; TEMP 97.2–98.4; O2SAT 91–100
--- NOTE | 2024-08-17 08:50 | DVHPN2 ---
Progress Note - Dictate Date Seen: Aug 17, 2024 Medical Necessity Reason Pt with a Central, PICC or Fol: Yes The following are medically ne: Central Line, Lynne Catheter Reason for lynne catheter: Strict I&O vital signs Vital Sign Date Time Temp Pulse Resp B/P (MAP) Pulse Ox O2 Delivery O2 Flow Rate FiO2 08/17/24 08:07 Nasal Cannula* 3 32 08/17/24 05:00 98.4 85 20 148/74 (98) 100 98.4 Total Intake and Output 08/16/24 08/16/24 08/17/24 15:00 23:00 07:00 Intake Total 100 ml 236 ml 340 ml Output Total 25 ml Balance 100 ml 211 ml 340 ml medications Current Medications Medications Dose Ordered Sig/Colleen Route Start Time Stop Time Status Last Admin Dose Admin Ondansetron HCl 4 mg Q4HP PRN IV 08/08/24 19:00 08/11/24 14:14 4 MG Acetaminophen 650 mg Q6HP PRN PO 08/08/24 19:00 Nitroglycerin 0.4 mg Q5MINP PRN SL 08/08/24 19:00 Morphine Sulfate 2 mg Q30M PRN IV 08/08/24 19:00 Pantoprazole Sodium 40 mg DAILY IV 08/10/24 10:00 08/16/24 09:37 40 MG Piperacillin Sod/ Tazobactam Sod 100 ml @ 25 mls/hr Q12HR IV 08/10/24 22:00 08/16/24 21:37 25 MLS/HR Mexiletine HCl 150 mg Q8HR PO 08/12/24 14:00 08/17/24 05:37 150 MG Amiodarone HCl 200 mg BID PO 08/12/24 22:00 08/16/24 21:34 200 MG Enteral Nutritional Formula 28.8 gm DAILY PO 08/13/24 10:00 08/16/24 09:42 28.8 GM Enteral Nutritional Formula 240 ml DAILY PO 08/13/24 10:00 08/16/24 09:42 240 ML Aspirin 81 mg DAILY PO 08/14/24 10:00 08/14/24 12:25 81 MG Apixaban 2.5 mg BID PO 08/14/24 22:00 08/14/24 21:35 2.5 MG Albuterol 2.5 mg Q6HPRN PRN NEB 08/15/24 17:45 Ipratropium [place] 0.5 mg Q6HPRN PRN NEB 08/15/24 17:45 Clonidine HCl 0.1 mg TID PRN PO 08/16/24 15:00 08/16/24 16:54 0.1 MG laboratory and microbiology Laboratory Tests 08/16/24 10:20 Test 08/16/24 10:20 Range/Units Serum Glucose 121 H 74-106 mg/dL Assessment/Plan Patient is a 64-year-old gentleman who was brought to the hospital for arrest. Reportedly the patient had hemodialysis and was being taken back, when he arrested at transport vehicle and was brought to the hospital. Reportedly EMS was performing CPR prior to arrival to the hospital which was continued in emergency room. Patient is intubated and is being managed in [facility]/ICU. Cardiology is involved for cardiac aspects of care. Patient is known to our practice from before. It is of note that the patient was in the hospital in mid June up to early July for an episode of cardiac arrest/VFib. At that time he was started on amiodarone/mexiletine. It is also of note that the patient was brought back later in July and for some reason the antiarrhythmic drugs were not continued (was not seen by Cardiology at that point). Review of the transfer notes reveals that he has not been taking the above noted antiarrhythmics. It is also of note that the patient did have angiogram in late June which revealed patent stents and no indication for intervention. Patient does have a Medtronic BiV-ICD. He does have baseline history of noncompliance. He also has history of repeated GI bleedings and also DVT. Prior to this arrival, the patient was not on any anticoagulation (was it held because of GI bleeding/pancytopenia?). Extubated. No JVD. Mucosa is pink and wet. No carotid bruit. Lungs: Scattered rhonchi in the lungs is heard. Cardiac: Regular, systolic murmur 3/6 in the apex is heard. The site for ICD implantation looks clean with no erythema/ecchymosis/tenderness. Abdomen is soft. Bowel sound is positive. Extremities reveal 3+ edema bilaterally in lower and upper ext. 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 Echocardiogram of April 08, 2024 had reported four-chamber dilatation, ejection fraction of 20%, [id number] MR/TR and right ventricular systolic pressure of 75 mm Hg Echocardiogram of May 19, 2024 had reported four-chamber dilatation, ejection fraction of 35%, D shaped septum, pulmonary hypertension, mobile interatrial septum, [id number] aortic insufficiency, mild mitral regurgitation, moderate TR and right ventricular systolic pressure of 80 mm Hg Echocardiogram of June 28, 2024 reported ejection fraction of 20%, septal flattening and biatrial enlargement Left heart catheterization of July 06, 2024 revealed no obstructive coronary artery disease. There was patent stents in LAD/RCA. Troponin (high sensitive): 42 - 41 - 50 BNP: 416.54 D-Dimer: 3.80 Chest x-ray revealed: IMPRESSION: 1. Endotracheal tube in place 9.3 cm above the elizabeth. 2. Right internal jugular catheter in place in the superior vena cava 3. Enteric tube at the gastroesophageal junction recommend advancement 3-4 inches. 4. Dual-chamber biventricular pacemaker in place with pulse generator over the left chest, 5. Right lower lobe infiltrate and effusion worse than 07/30/2024 tubing overlying the lower right lung field correlate for possible chest tube placement. Repeat chest x-ray revealed: IMPRESSION: 1. Endotracheal tube has been repositioned now 7.6 cm above the elizabeth. Repeat chest x-ray revealed: IMPRESSION: 1. Endotracheal tube has been repositioned now 7.6 cm above the elizabeth. Repeat chest x-ray revealed: IMPRESSION: Bibasilar atelectasis or pneumonia. Repeat chest xry revealed: IMPRESSION: 1. Bibasilar atelectasis or pneumonia. 2. Pulmonary venous congestion. Repeat chest xry revealed: IMPRESSION: 1. Right pleural effusion. Airspace disease right lower lobe. 2. No pneumothorax. 3. Biventricular pacemaker in place unchanged 4. Hemodialysis catheter from the right in the superior vena cava above the right atrium. Repeat chest xry revealed: MPRESSION: 1. Cardiomegaly with mild congestion. 2. Right pleural effusion. Chest ultrasound revealed: IMPRESSION: 1. LARGE RIGHT PLEURAL EFFUSION. VOLUME NOT CALCULATED. CT of the head revealed: IMPRESSION: 1. No acute intracranial abnormality. CTA of lungs revealed: IMPRESSION: 1. No evidence of pulmonary embolus. 2. Large right pleural effusion. Consolidation of the left lung base may represent infectious process or atelectasis. 3. Diffuse centrilobular emphysema Venous duplex of lower ext revealed: Impression: No right or left femoropopliteal venous thrombosis. Venous duplex of upper ext revealed: IMPRESSION: Right upper extremity: Occlusive thrombophlebitis of the cephalic vein. No evidence of DVT. Moderate subcutaneous edema noted. Left upper extremity: No evidence of DVT or SVT. Telemetry reveals paced rhythm Echocardiogram reported: Left ventricle: Concentric left ventricular hypertrophy was seen. LVEF was around 25%. Septal flattening was seen. Paradoxical septal motion was observed. Right ventricle was dilated with reduced systolic function. Both atria were dilated. Pacing wire were seen right-sided chambers. Aortic valve was not well visualized. There was mild aortic insufficiency. There was no aortic stenosis. There was mild mitral regurgitation. There was mild to moderate tricuspid regurgitation. Pulmonary valve was not well visualized. Right ventricular systolic pressure was assessed at 52 mm Hg. There was no pericardial effusion. ICD interrogation: Medtronic BiV-ICD interrogation: Remaining battery: 3.8 years; DDD: 80/130; Pacing impedance: 399 A/361 RV Ohms; Defibrillation independence: RV = 39 Ohms; Repeated shocks for VT/VF Patient is a 64-year-old gentleman who presented with post arrest. It is of note that the patient did have arrest (V-tach VFib) in June 2024. At that point he was started on some antiarrhythmics which unfortunately have not been continued as outpatient. Serial high sensitive troponin has been negative and acute coronary syndrome is not considered for clinical presentation at this point. We do have a recent cardiac catheterization also (June 2024). It is also of note that the patient does have history of repeated DVTs and also pancytopenia/GI bleedings. Acute arrest Rule out PE s/p Defibrillation secondary to V-fib/Vtach (in June 2024) Encephalopathy? Baseline pulmonary hypertension Baseline systolic heart failure Status post BiV-ICD End-stage renal disease, Noncompliant with medication, followups and hemodialysis Pancytopenia History of GI bleeding Cephalic vein thrombosis VT/VF Cardiac suggestion for management: Manage in [facility]/ICU Follow-up electrolytes and kidney function tests and correct abnormalities Amiodarone/mexiletine Daily 81 mg ASA Cardiac arguelles, is stable and can be followed as outpatient Evaluation and management of pleural effusion as per Pulmonary/primary team DVT prophylaxis Further evaluation and management depends on the above and clinical course A total of 75 minutes was spent reviewing the patient record, examining the patient, making a diagnostic and therapeutic plan, discussing this plan with medical personnel, following up on diagnostic studies and following the patient for clinical stability excluding any and all procedures. At least 50% of this time was spent in direct, [id number] contact. Thank you for allowing me to participate in this patient's care. Further recommendations will depend on patient's clinical course. Please do not hesitate to contact me if you have any questions or concerns. This medical document was created using electronic medical record system with [employer] computerized dictation system. Although this document has been carefully reviewed, there may still be some phonetic and typographical errors. These areas are purely typographical due to the imperfection of the software programs, and do not reflect any compromise in the patient's medical care. Dietary Evaluation Review Recommendations by RD: Protein Supplementation Comments: 1) Initiate Pro-Stat @ 30 mL qd 2) Initiate Ovi @ 1 pk bid 3) Initiate Nephro-Eri @ 1 tb qd 4) If patient remains NPO > 7 days, consider EN/TPN to meet at least 75% of estimated daily needs 5) Advance to renal standard diet when medically feasible, pending STUDENT SUPPORT ADVISOR approval 4) Continue to monitor I&O, labs, and skin integrity Expected Outcomes/Goals: 1) patient to receive nutritional support within 7 days 2) labs and wound to improve 3) diet to advance 4) f/u in 2-3 days Plan discussed with: Patient, Other (nurse) SUSHMA WALKER MD Aug 17, 2024 08:50
[2024-08-17] MEDS: POTASSIUM CHL 20 Meq TABLET PO ONE (09:00)
[2024-08-17] MEDS: FUROSEMIDE 40 MG/4 ML VIAL IV ONE (10:45)
[2024-08-17 10:58] LABS: Basophils # (auto) 0.1 10 ^3/uL (0-0.2); Basophils % (auto) 4.1 % (0.0-2.0); Eosinophils # (auto) 0.4 10 ^3/uL (0-0.8); Eosinophils % (auto) 12.3 % (0.0-7.0); Hematocrit 26.1 % (41.0-53.0); Hemoglobin 8.6 g/dL (13.5-17.5); Lymphocytes # (auto) 0.3 10 ^3/uL (0.4-5.4); Lymphocytes % (auto) 9.3 % (10.0-50.0); Mean Corpuscular Hemoglobin 32.7 pg (28.0-32.0); Mean Corpuscular Hgb Conc. 32.8 g/dL (32.0-36.0); Mean Corpuscular Volume 99.9 fL (80.0-100.0); Monocytes # (auto) 0.5 10 ^3/uL (0-1.3); Monocytes % (auto) 14.8 % (0.0-12.0); Neutrophils # (auto) 2.1 10 ^3/uL (1.6-8.6); Neutrophils % (auto) 59.5 % (37.0-80.0); Nucleated Red Blood Cells % 0.1 %; Platelet Count (auto) 102 10^3/uL (140-450); Red Blood Cells 2.62 10^6/uL (4.5-5.90); Red Cell Distribution Width 20.7 % (11.8-14.3); White Blood Cell 3.5 10^3/uL (4.4-10.8)
[2024-08-17 11:08] LABS: Albumin 3.3 g/dL (3.2-4.8); Alkaline Phosphatase 104 U/L (46-116); Anion Gap 7 (5-15); BUN/Creatinine Ratio 8.7 (10.0-20.0); Bilirubin, Total 0.5 mg/dL (0.2-1.0); Calcium 9.8 mg/dL (8.7-10.4); Glucose 81 mg/dL (74-106); Potassium 3.4 mmol/L (3.5-5.1); Sodium 136 mmol/L (136-145); Total Protein 5.7 g/dL (5.7-8.2)
[2024-08-17 11:09] LABS: Alanine Aminotransferase < 9 U/L (7-40); Aspartate Aminotransferase 10 U/L (13-40); Blood Urea Nitrogen 36 mg/dL (9-23); Carbon Dioxide 32 mmol/L (20-31); Chloride 97 mmol/L (98-107)
--- NOTE | 2024-08-17 12:16 | DVHPN2 ---
Progress Note - Dictate Date Seen: Aug 17, 2024 Medical Necessity Reason Pt with a Central, PICC or Fol: Yes The following are medically ne: Central Line, Lynne Catheter Reason for lynne catheter: Strict I&O vital signs Vital Sign Date Time Temp Pulse Resp B/P (MAP) Pulse Ox O2 Delivery O2 Flow Rate FiO2 08/17/24 09:11 98 Nasal Cannula 4.0 08/17/24 09:11 36 08/17/24 09:00 97.4 78 19 148/73 (98) 97.4 Total Intake and Output 08/16/24 08/16/24 08/17/24 14:59 22:59 06:59 Intake Total 100 ml 236 ml 340 ml Output Total 25 ml Balance 100 ml 211 ml 340 ml medications Current Medications Medications Dose Ordered Sig/Colleen Route Start Time Stop Time Status Last Admin Dose Admin Ondansetron HCl 4 mg Q4HP PRN IV 08/08/24 19:00 08/11/24 14:14 4 MG Acetaminophen 650 mg Q6HP PRN PO 08/08/24 19:00 Nitroglycerin 0.4 mg Q5MINP PRN SL 08/08/24 19:00 Morphine Sulfate 2 mg Q30M PRN IV 08/08/24 19:00 Pantoprazole Sodium 40 mg DAILY IV 08/10/24 10:00 08/17/24 09:11 40 MG Piperacillin Sod/ Tazobactam Sod 100 ml @ 25 mls/hr Q12HR IV 08/10/24 22:00 08/17/24 09:08 25 MLS/HR Mexiletine HCl 150 mg Q8HR PO 08/12/24 14:00 08/17/24 05:37 150 MG Amiodarone HCl 200 mg BID PO 08/12/24 22:00 08/17/24 09:07 200 MG Enteral Nutritional Formula 28.8 gm DAILY PO 08/13/24 10:00 08/17/24 09:16 28.8 GM Enteral Nutritional Formula 240 ml DAILY PO 08/13/24 10:00 08/17/24 09:16 240 ML Aspirin 81 mg DAILY PO 08/14/24 10:00 08/17/24 09:06 81 MG Apixaban 2.5 mg BID PO 08/14/24 22:00 08/17/24 09:07 2.5 MG Albuterol 2.5 mg Q6HPRN PRN NEB 08/15/24 17:45 Ipratropium [place] 0.5 mg Q6HPRN PRN NEB 08/15/24 17:45 Clonidine HCl 0.1 mg TID PRN PO 08/16/24 15:00 08/16/24 16:54 0.1 MG laboratory and microbiology Laboratory Tests 08/17/24 10:07 Test 08/17/24 10:07 Range/Units Serum Glucose 81 74-106 mg/dL Assessment/Plan Patient is a 64-year-old gentleman who was brought to the hospital for arrest. Reportedly the patient had hemodialysis and was being taken back, when he arrested at transport vehicle and was brought to the hospital. Reportedly EMS was performing CPR prior to arrival to the hospital which was continued in emergency room. Patient is intubated and is being managed in [facility]/ICU. Cardiology is involved for cardiac aspects of care. Patient is known to our practice from before. It is of note that the patient was in the hospital in mid June up to early July for an episode of cardiac arrest/VFib. At that time he was started on amiodarone/mexiletine. It is also of note that the patient was brought back later in July and for some reason the antiarrhythmic drugs were not continued (was not seen by Cardiology at that point). Review of the transfer notes reveals that he has not been taking the above noted antiarrhythmics. It is also of note that the patient did have angiogram in late June which revealed patent stents and no indication for intervention. Patient does have a Medtronic BiV-ICD. He does have baseline history of noncompliance. He also has history of repeated GI bleedings and also DVT. Prior to this arrival, the patient was not on any anticoagulation (was it held because of GI bleeding/pancytopenia?). Extubated. No JVD. Mucosa is pink and wet. No carotid bruit. Lungs: Scattered rhonchi in the lungs is heard. Cardiac: Regular, systolic murmur 3/6 in the apex is heard. The site for ICD implantation looks clean with no erythema/ecchymosis/tenderness. Abdomen is soft. Bowel sound is positive. Extremities reveal 3+ edema bilaterally in lower and upper ext. 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 Echocardiogram of April 08, 2024 had reported four-chamber dilatation, ejection fraction of 20%, [id number] MR/TR and right ventricular systolic pressure of 75 mm Hg Echocardiogram of May 19, 2024 had reported four-chamber dilatation, ejection fraction of 35%, D shaped septum, pulmonary hypertension, mobile interatrial septum, [id number] aortic insufficiency, mild mitral regurgitation, moderate TR and right ventricular systolic pressure of 80 mm Hg Echocardiogram of June 28, 2024 reported ejection fraction of 20%, septal flattening and biatrial enlargement Left heart catheterization of July 06, 2024 revealed no obstructive coronary artery disease. There was patent stents in LAD/RCA. Troponin (high sensitive): 42 - 41 - 50 BNP: 416.54 D-Dimer: 3.80 Chest x-ray revealed: IMPRESSION: 1. Endotracheal tube in place 9.3 cm above the elizabeth. 2. Right internal jugular catheter in place in the superior vena cava 3. Enteric tube at the gastroesophageal junction recommend advancement 3-4 inches. 4. Dual-chamber biventricular pacemaker in place with pulse generator over the left chest, 5. Right lower lobe infiltrate and effusion worse than 07/30/2024 tubing overlying the lower right lung field correlate for possible chest tube placement. Repeat chest x-ray revealed: IMPRESSION: 1. Endotracheal tube has been repositioned now 7.6 cm above the elizabeth. Repeat chest x-ray revealed: IMPRESSION: 1. Endotracheal tube has been repositioned now 7.6 cm above the elizabeth. Repeat chest x-ray revealed: IMPRESSION: Bibasilar atelectasis or pneumonia. Repeat chest xry revealed: IMPRESSION: 1. Bibasilar atelectasis or pneumonia. 2. Pulmonary venous congestion. Repeat chest xry revealed: IMPRESSION: 1. Right pleural effusion. Airspace disease right lower lobe. 2. No pneumothorax. 3. Biventricular pacemaker in place unchanged 4. Hemodialysis catheter from the right in the superior vena cava above the right atrium. Repeat chest xry revealed: MPRESSION: 1. Cardiomegaly with mild congestion. 2. Right pleural effusion. Chest ultrasound revealed: IMPRESSION: 1. LARGE RIGHT PLEURAL EFFUSION. VOLUME NOT CALCULATED. CT of the head revealed: IMPRESSION: 1. No acute intracranial abnormality. CTA of lungs revealed: IMPRESSION: 1. No evidence of pulmonary embolus. 2. Large right pleural effusion. Consolidation of the left lung base may represent infectious process or atelectasis. 3. Diffuse centrilobular emphysema Venous duplex of lower ext revealed: Impression: No right or left femoropopliteal venous thrombosis. Venous duplex of upper ext revealed: IMPRESSION: Right upper extremity: Occlusive thrombophlebitis of the cephalic vein. No evidence of DVT. Moderate subcutaneous edema noted. Left upper extremity: No evidence of DVT or SVT. Telemetry reveals paced rhythm Echocardiogram reported: Left ventricle: Concentric left ventricular hypertrophy was seen. LVEF was around 25%. Septal flattening was seen. Paradoxical septal motion was observed. Right ventricle was dilated with reduced systolic function. Both atria were dilated. Pacing wire were seen right-sided chambers. Aortic valve was not well visualized. There was mild aortic insufficiency. There was no aortic stenosis. There was mild mitral regurgitation. There was mild to moderate tricuspid regurgitation. Pulmonary valve was not well visualized. Right ventricular systolic pressure was assessed at 52 mm Hg. There was no pericardial effusion. ICD interrogation: Medtronic BiV-ICD interrogation: Remaining battery: 3.8 years; DDD: 80/130; Pacing impedance: 399 A/361 RV Ohms; Defibrillation independence: RV = 39 Ohms; Repeated shocks for VT/VF Patient is a 64-year-old gentleman who presented with post arrest. It is of note that the patient did have arrest (V-tach VFib) in June 2024. At that point he was started on some antiarrhythmics which unfortunately have not been continued as outpatient. Serial high sensitive troponin has been negative and acute coronary syndrome is not considered for clinical presentation at this point. We do have a recent cardiac catheterization also (June 2024). It is also of note that the patient does have history of repeated DVTs and also pancytopenia/GI bleedings. Acute arrest Rule out PE s/p Defibrillation secondary to V-fib/Vtach (in June 2024) Encephalopathy? Baseline pulmonary hypertension Baseline systolic heart failure Status post BiV-ICD End-stage renal disease, Noncompliant with medication, followups and hemodialysis Pancytopenia History of GI bleeding Cephalic vein thrombosis VT/VF Cardiac suggestion for management: Manage on tele Follow-up electrolytes and kidney function tests and correct abnormalities Amiodarone/mexiletine Cardiac arguelles, is stable and can be followed as outpatient Evaluation and management of pleural effusion as per Pulmonary/primary team Further evaluation and management depends on the above and clinical course A total of 55 minutes was spent reviewing the patient record, examining the patient, making a diagnostic and therapeutic plan, discussing this plan with medical personnel, following up on diagnostic studies and following the patient for clinical stability excluding any and all procedures. At least 50% of this time was spent in direct, [id number] contact. Thank you for allowing me to participate in this patient's care. Further recommendations will depend on patient's clinical course. Please do not hesitate to contact me if you have any questions or concerns. This medical document was created using electronic medical record system with [employer] computerized dictation system. Although this document has been carefully reviewed, there may still be some phonetic and typographical errors. These areas are purely typographical due to the imperfection of the software programs, and do not reflect any compromise in the patient's medical care. Dietary Evaluation Review Recommendations by RD: Protein Supplementation Comments: 1) Initiate Pro-Stat @ 30 mL qd 2) Initiate Ovi @ 1 pk bid 3) Initiate Nephro-Eri @ 1 tb qd 4) If patient remains NPO > 7 days, consider EN/TPN to meet at least 75% of estimated daily needs 5) Advance to renal standard diet when medically feasible, pending HVAC MECHANICAL ENGINEER approval 4) Continue to monitor I&O, labs, and skin integrity Expected Outcomes/Goals: 1) patient to receive nutritional support within 7 days 2) labs and wound to improve 3) diet to advance 4) f/u in 2-3 days Plan discussed with: Patient, Other (nurse) SUSHMA WALKER MD Aug 17, 2024 12:16
--- NOTE | 2024-08-17 13:26 | DVHPN2 ---
Progress Note - Dictate Date Seen: Aug 17, 2024 Medical Necessity Reason Pt with a Central, PICC or Fol: Yes The following are medically ne: Central Line, Lynne Catheter Reason for lynne catheter: Strict I&O Subjective No issues today reported by the patient except for generalized weakness. vital signs Vital Sign Date Time Temp Pulse Resp B/P (MAP) Pulse Ox O2 Delivery O2 Flow Rate FiO2 08/17/24 13:00 97.3 76 19 136/90 (105) 97 97.3 08/17/24 09:11 Nasal Cannula 4.0 08/17/24 09:11 36 Total Intake and Output 08/16/24 08/16/24 08/17/24 15:00 23:00 07:00 Intake Total 100 ml 236 ml 340 ml Output Total 25 ml Balance 100 ml 211 ml 340 ml medications Current Medications Medications Dose Ordered Sig/Colleen Route Start Time Stop Time Status Last Admin Dose Admin Ondansetron HCl 4 mg Q4HP PRN IV 08/08/24 19:00 08/11/24 14:14 4 MG Acetaminophen 650 mg Q6HP PRN PO 08/08/24 19:00 Nitroglycerin 0.4 mg Q5MINP PRN SL 08/08/24 19:00 Morphine Sulfate 2 mg Q30M PRN IV 08/08/24 19:00 Pantoprazole Sodium 40 mg DAILY IV 08/10/24 10:00 08/17/24 09:11 40 MG Piperacillin Sod/ Tazobactam Sod 100 ml @ 25 mls/hr Q12HR IV 08/10/24 22:00 08/17/24 09:08 25 MLS/HR Mexiletine HCl 150 mg Q8HR PO 08/12/24 14:00 08/17/24 05:37 150 MG Amiodarone HCl 200 mg BID PO 08/12/24 22:00 08/17/24 09:07 200 MG Enteral Nutritional Formula 28.8 gm DAILY PO 08/13/24 10:00 08/17/24 09:16 28.8 GM Enteral Nutritional Formula 240 ml DAILY PO 08/13/24 10:00 08/17/24 09:16 240 ML Aspirin 81 mg DAILY PO 08/14/24 10:00 08/17/24 09:06 81 MG Apixaban 2.5 mg BID PO 08/14/24 22:00 08/17/24 09:07 2.5 MG Albuterol 2.5 mg Q6HPRN PRN NEB 08/15/24 17:45 Ipratropium [place] 0.5 mg Q6HPRN PRN NEB 08/15/24 17:45 Clonidine HCl 0.1 mg TID PRN PO 08/16/24 15:00 08/16/24 16:54 0.1 MG objective HEENT: No evidence of JVD, no oral ulcers. Pulmonary: Diminished lung sounds on auscultation bilaterally Cardiovascular S1-S2, no S3 or S4 Abdomen: Bowel sounds positive, soft no rebound tenderness Skin: No rash Neurological: Alert, oriented, no focal weakness Access: Right tunneled IJ dialysis catheter laboratory and microbiology Laboratory Tests 08/17/24 10:07 Test 08/17/24 10:07 Range/Units Serum Glucose 81 74-106 mg/dL Assessment/Plan Assessment: ESRD on HD TTS s/p cardiac arrest with ROSC Acute hypoxic respiratory failure, extubated on supplemental oxygen Bilateral pleural effusions, small Sepsis secondary to pneumonia Hyponatremia Lactic acidosis Hypoalbuminemia HTN Atrial fibrillation CAD s/p stent s/p pacemaker chronic diastolic CHF Pancytopenia Plan: HD schedule: TTS Continue IV antibiotics, renally dose On Eliquis, amiodarone. Increase Lasix to IV 80 mg twice a day meanwhile inpatient NAZANIN post HD as needed. goal Hb: 10-11 g/dl Thank you very much for allowing us to participate in the care of this patient Dietary Evaluation Review Recommendations by RD: Protein Supplementation Comments: 1) Initiate Pro-Stat @ 30 mL qd 2) Initiate Ovi @ 1 pk bid 3) Initiate Nephro-Eri @ 1 tb qd 4) If patient remains NPO > 7 days, consider EN/TPN to meet at least 75% of estimated daily needs 5) Advance to renal standard diet when medically feasible, pending LAWN SPECIALIST approval 4) Continue to monitor I&O, labs, and skin integrity Expected Outcomes/Goals: 1) patient to receive nutritional support within 7 days 2) labs and wound to improve 3) diet to advance 4) f/u in 2-3 days Plan discussed with: Patient RONEL SHELTON MD Aug 17, 2024 13:26
--- NOTE | 2024-08-17 17:21 | CONS ---
Pharmacy Clinical Information: K+ = 3.4, consider giving potassium with the furosemide 80mg bidd ANYA CORDERO PHARMACIST Aug 17, 2024 17:21
[2024-08-17] MEDS: FUROSEMIDE 100 MG/10ML VIAL IV SCH ×2 (17:25→17:40)
[2024-08-17] MEDS ORDERED: cloNIDine HCL 0.1 MG TAB PO PRN (22:15)
--- NOTE | 2024-08-17 22:27 | DVHPNRES ---
Progress Note Date Seen: Aug 17, 2024 Resident Creating Document: MEHNAZ MCMAHAN Medical Necessity Reason Pt with a Central, PICC or Fol: Yes The following are medically ne: Central Line, Lynne Catheter Reason for lynne catheter: Strict I&O Subjective Review of Systems Patient is a 64-year-old male with a past medical history as reported below was brought to the hospital in cardiopulmonary arrest. As per the report patient had hemodialysis and was being taken back to the [facility] when he underwent a cardiopulmonary arrest in the vehicle and was brought to the hospital. ROSC was achieved following which the patient was intubated and shifted to ICU level of care. Patient was treated with antiarrhythmic medications, regular hemodialysis, IV antibiotics for suspected pneumonia, with vasopressor support and mechanical ventilation. Ventilation requirements decreased and the patient was extubated on 08/11/2024. Right-sided pleural effusion was noted following which she had a thoracentesis with a 1.5 L of fluid was removed. Patient getting regular hemodialysis on Saturday and Saturday and is followed by manager internal Dr. Wong and rigging loft repairer Dr. Booth. Past medical history: End-stage renal disease on hemodialysis, heart failure with reduced ejection fraction, prostate cancer, coronary artery disease s/p PCI, history of VFib and sustained V-tach, multiple DVTs, , H/O GI bleeding, pulmonary hypertension Past surgical history: Right AV fistula, s/p repeated right AV fistula thrombectomy, status post biventricular ICD implantation, multiple cardiac ablations, PCI Social history: Patient came to the hospital from [facility] where he was discharged for physical rehab, denies smoking, alcohol, drug use Review of systems Patient seen and examined at the bedside Patient was alert and oriented x3 and appears to be in mild respiratory distress, denies shortness of breath while in bed. Denies chest pain, palpitations, headache Reported that after being given blood pressure medication yesterday he felt dizzy but otherwise has been normal Objective vital signs Vital Sign Date Time Temp Pulse Resp B/P (MAP) Pulse Ox O2 Delivery O2 Flow Rate FiO2 08/17/24 21:30 99 Nasal Cannula 3.0 08/17/24 21:30 32 08/17/24 17:40 137/75 08/17/24 17:00 97.2 73 18 97.2 Total Intake and Output 08/16/24 08/16/24 08/17/24 15:00 23:00 07:00 Intake Total 100 ml 236 ml 340 ml Output Total 25 ml Balance 100 ml 211 ml 340 ml medications Current Medications Medications Dose Ordered Sig/Colleen Route Start Time Stop Time Status Last Admin Dose Admin Ondansetron HCl 4 mg Q4HP PRN IV 08/08/24 19:00 08/11/24 14:14 4 MG Acetaminophen 650 mg Q6HP PRN PO 08/08/24 19:00 Nitroglycerin 0.4 mg Q5MINP PRN SL 08/08/24 19:00 Morphine Sulfate 2 mg Q30M PRN IV 08/08/24 19:00 Pantoprazole Sodium 40 mg DAILY IV 08/10/24 10:00 08/17/24 09:11 40 MG Piperacillin Sod/ Tazobactam Sod 100 ml @ 25 mls/hr Q12HR IV 08/10/24 22:00 08/17/24 09:08 25 MLS/HR Mexiletine HCl 150 mg Q8HR PO 08/12/24 14:00 08/17/24 14:27 150 MG Amiodarone HCl 200 mg BID PO 08/12/24 22:00 08/17/24 09:07 200 MG Enteral Nutritional Formula 28.8 gm DAILY PO 08/13/24 10:00 08/17/24 09:16 28.8 GM Enteral Nutritional Formula 240 ml DAILY PO 08/13/24 10:00 08/17/24 09:16 240 ML Aspirin 81 mg DAILY PO 08/14/24 10:00 08/17/24 09:06 81 MG Apixaban 2.5 mg BID PO 08/14/24 22:00 08/17/24 09:07 2.5 MG Albuterol 2.5 mg Q6HPRN PRN NEB 08/15/24 17:45 Ipratropium [place] 0.5 mg Q6HPRN PRN NEB 08/15/24 17:45 Clonidine HCl 0.1 mg TID PRN PO 08/16/24 15:00 08/16/24 16:54 0.1 MG Furosemide 60 mg BIDD IV 08/17/24 18:00 08/17/24 17:40 60 MG Examination Constitutional: Patient was alert and oriented x3 and appears to be in mild respiratory distress Gen - conjunctival pallor present, no icterus, no cyanosis, no clubbing, no LAD, no edema . Skin - Patients skin is warm and dry. HEENT - normocephalic, atraumatic, moist mucous membranes. Neck - full ROM, no LAD, no JVD Pulmonary - decreased basilar breath sounds with inspiratory crackles, no wheezing, no stridor. cardiovascular - variable S1,S2 heard. no murmurs heard. . capillary refill normal <2 secs. GI - soft abdomen, nondistended and no tenderness to palpation. no hepatospleenomegaly. Bowel sounds normoactive Neurological - Bilateral upper extremity strength 4/5, bilateral lower extremity strength 4/5, no facial droop, normal speech, no tremor, no sensory deficiets. Extremities: Right upper extremity AV fistula with positive thrill laboratory and microbiology Laboratory Tests 08/17/24 19:02 08/17/24 10:07 Test 08/17/24 10:07 Range/Units Serum Glucose 81 74-106 mg/dL Microbiology Date/Time Source Procedure Growth Status 08/11/24 19:50 Pleural Fluid Gram Stain - Final Complete 08/11/24 19:50 Pleural Fluid Body Fluid Culture - Final Complete 08/09/24 01:32 Nose MRSA Screen - Final Complete 08/08/24 21:20 Sputum Gram Stain - Final Complete 08/08/24 21:20 Sputum Respiratory Culture - Final Complete 08/08/24 18:04 Blood Blood Culture - Final NO GROWTH AFTER 5 DAYS OF INCUBATION. Complete Problem List/Assessment/Plan Problem List/Assessment/Plan Respiratory # acute on chronic hypoxic respiratory failure on mechanical ventilation, extubated # suspected left lower lung pneumonia likely due to Gram+/-bacteria vs atelectasis # pulmonary edema # pleural effusion # diffuse centrilobular emphysema - extubated on 08/11 - s/p right thoracentesis with 1.5 L removed, culture showed no growth - on oxygen at 4 L via nasal cannula - IV antibiotics Zosyn - Lasix 60 mg IV b.i.d. Cardiology # cardiopulmonary arrest status post ROSC # ventricular fibrillation/ventricular tachycardia # heart failure with reduced ejection fraction status post biventricular ICD # pulmonary hypertension # history of coronary artery disease status post PCI - echo from 08/11 showed LVEF 25% with concentric LVH, septal flattening, right ventricle dilation with reduced systolic function with a RVSP 52 mmHg - recent left heart catheterization in June 2024 revealed no obstructive CAD, patent stents in LAD/RCA - on amiodarone 200 mg b.i.d., mexiletine 150 mg q.8 hours - aspirin 81 mg - Lasix 60 mg IV b.i.d. Nephrology # end-stage renal disease on hemodialysis TTS # hypokalemia - scheduled for hemodialysis tomorrow - Lasix 60 mg IV b.i.d. - erythropoietin as per Nephrology after hemodialysis Gastrointestinal/Hematology # recent lower GI bleed # pancytopenia - H&H stable - on Protonix 40 mg IV daily - nutritional supplement Nepro Midline left upper arm placed on 08/14 Right subclavian dialysis catheter placed on 08/08 Lynne catheter inserted on 08/09 PUD prophylaxis: Protonix DVT prophylaxis: On Eliquis Goals of care discussed with the patient for over 27 minutes. Code status: Chemical code only no intubation Critical care time spent: 63 minutes Plan discussed with Dr. Carranza Plan discussed with: Patient My Orders My Orders Orders - MEHNAZ MCMAHAN Procedure Category Date Status Time Furosemide Injection PHA 08/17/24 In Process (Lasix Injection) 18:00 Dietary Evaluation Review Recommendations by RD: Protein Supplementation Comments: 1) Initiate Pro-Stat @ 30 mL qd 2) Initiate Ovi @ 1 pk bid 3) Initiate Nephro-Eri @ 1 tb qd 4) If patient remains NPO > 7 days, consider EN/TPN to meet at least 75% of estimated daily needs 5) Advance to renal standard diet when medically feasible, pending LOCK CORNER MACHINE OPERATOR approval 4) Continue to monitor I&O, labs, and skin integrity Expected Outcomes/Goals: 1) patient to receive nutritional support within 7 days 2) labs and wound to improve 3) diet to advance 4) f/u in 2-3 days Date of Service: Aug 17, 2024 Billing Provider: INDIA CARRANZA MD Common Visit Codes: NOT BILLABLE MEHNAZ MCMAHAN Aug 17, 2024 22:27 INDIA CARRANZA MD Aug 24, 2024 11:03
[2024-08-18] VITALS (12 sets, daily range): BP systolic 111–138; BP diastolic 43–76; PULSE 62–86; RESP 16–18; TEMP 97.5–98.2; O2SAT 90–99
[2024-08-18] MEDS: SODIUM CHL 0.9% 1000 ML BAG XX ONE (07:00)
--- NOTE | 2024-08-18 07:01 | DVHPN2 ---
Progress Note - Dictate Date Seen: Aug 18, 2024 Medical Necessity Reason Pt with a Central, PICC or Fol: Yes The following are medically ne: Central Line, Lynne Catheter Reason for lynne catheter: Strict I&O vital signs Vital Sign Date Time Temp Pulse Resp B/P (MAP) Pulse Ox O2 Delivery O2 Flow Rate FiO2 08/18/24 05:52 130/76 08/18/24 05:00 98.1 63 17 94 98.1 08/17/24 21:30 Nasal Cannula 3.0 08/17/24 21:30 32 Total Intake and Output 08/17/24 08/17/24 08/18/24 15:00 23:00 07:00 Intake Total 100 ml 300 ml 300 ml Output Total 75 ml 100 ml Balance 100 ml 225 ml 200 ml medications Current Medications Medications Dose Ordered Sig/Colleen Route Start Time Stop Time Status Last Admin Dose Admin Ondansetron HCl 4 mg Q4HP PRN IV 08/08/24 19:00 08/11/24 14:14 4 MG Acetaminophen 650 mg Q6HP PRN PO 08/08/24 19:00 Nitroglycerin 0.4 mg Q5MINP PRN SL 08/08/24 19:00 Pantoprazole Sodium 40 mg DAILY IV 08/10/24 10:00 08/17/24 09:11 40 MG Piperacillin Sod/ Tazobactam Sod 100 ml @ 25 mls/hr Q12HR IV 08/10/24 22:00 08/17/24 21:59 25 MLS/HR Mexiletine HCl 150 mg Q8HR PO 08/12/24 14:00 08/18/24 05:53 150 MG Amiodarone HCl 200 mg BID PO 08/12/24 22:00 08/17/24 22:01 200 MG Enteral Nutritional Formula 28.8 gm DAILY PO 08/13/24 10:00 08/17/24 09:16 28.8 GM Enteral Nutritional Formula 240 ml DAILY PO 08/13/24 10:00 08/17/24 09:16 240 ML Aspirin 81 mg DAILY PO 08/14/24 10:00 08/17/24 09:06 81 MG Apixaban 2.5 mg BID PO 08/14/24 22:00 08/17/24 21:59 2.5 MG Albuterol 2.5 mg Q6HPRN PRN NEB 08/15/24 17:45 Ipratropium [place] 0.5 mg Q6HPRN PRN NEB 08/15/24 17:45 Furosemide 60 mg BIDD IV 08/17/24 18:00 08/18/24 05:52 60 MG Clonidine HCl 0.1 mg TID PRN PO 08/17/24 22:15 laboratory and microbiology Laboratory Tests 08/17/24 19:02 08/17/24 10:07 Test 08/17/24 10:07 Range/Units Serum Glucose 81 74-106 mg/dL Assessment/Plan Patient is a 64-year-old gentleman who was brought to the hospital for arrest. Reportedly the patient had hemodialysis and was being taken back, when he arrested at transport vehicle and was brought to the hospital. Reportedly EMS was performing CPR prior to arrival to the hospital which was continued in emergency room. Patient is intubated and is being managed in [facility]/ICU. Cardiology is involved for cardiac aspects of care. Patient is known to our practice from before. It is of note that the patient was in the hospital in mid June up to early July for an episode of cardiac arrest/VFib. At that time he was started on amiodarone/mexiletine. It is also of note that the patient was brought back later in July and for some reason the antiarrhythmic drugs were not continued (was not seen by Cardiology at that point). Review of the transfer notes reveals that he has not been taking the above noted antiarrhythmics. It is also of note that the patient did have angiogram in late June which revealed patent stents and no indication for intervention. Patient does have a Medtronic BiV-ICD. He does have baseline history of noncompliance. He also has history of repeated GI bleedings and also DVT. Prior to this arrival, the patient was not on any anticoagulation (was it held because of GI bleeding/pancytopenia?). Extubated. No JVD. Mucosa is pink and wet. No carotid bruit. Lungs: Scattered rhonchi in the lungs is heard. Cardiac: Regular, systolic murmur 3/6 in the apex is heard. The site for ICD implantation looks clean with no erythema/ecchymosis/tenderness. Abdomen is soft. Bowel sound is positive. Extremities reveal 3+ edema bilaterally in lower and upper ext. 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 Echocardiogram of April 08, 2024 had reported four-chamber dilatation, ejection fraction of 20%, [id number] MR/TR and right ventricular systolic pressure of 75 mm Hg Echocardiogram of May 19, 2024 had reported four-chamber dilatation, ejection fraction of 35%, D shaped septum, pulmonary hypertension, mobile interatrial septum, [id number] aortic insufficiency, mild mitral regurgitation, moderate TR and right ventricular systolic pressure of 80 mm Hg Echocardiogram of June 28, 2024 reported ejection fraction of 20%, septal flattening and biatrial enlargement Left heart catheterization of July 06, 2024 revealed no obstructive coronary artery disease. There was patent stents in LAD/RCA. Troponin (high sensitive): 42 - 41 - 50 BNP: 416.54 D-Dimer: 3.80 Chest x-ray revealed: IMPRESSION: 1. Endotracheal tube in place 9.3 cm above the elizabeth. 2. Right internal jugular catheter in place in the superior vena cava 3. Enteric tube at the gastroesophageal junction recommend advancement 3-4 inches. 4. Dual-chamber biventricular pacemaker in place with pulse generator over the left chest, 5. Right lower lobe infiltrate and effusion worse than 07/30/2024 tubing overlying the lower right lung field correlate for possible chest tube placement. Repeat chest x-ray revealed: IMPRESSION: 1. Endotracheal tube has been repositioned now 7.6 cm above the elizabeth. Repeat chest x-ray revealed: IMPRESSION: 1. Endotracheal tube has been repositioned now 7.6 cm above the elizabeth. Repeat chest x-ray revealed: IMPRESSION: Bibasilar atelectasis or pneumonia. Repeat chest xry revealed: IMPRESSION: 1. Bibasilar atelectasis or pneumonia. 2. Pulmonary venous congestion. Repeat chest xry revealed: IMPRESSION: 1. Right pleural effusion. Airspace disease right lower lobe. 2. No pneumothorax. 3. Biventricular pacemaker in place unchanged 4. Hemodialysis catheter from the right in the superior vena cava above the right atrium. Repeat chest xry revealed: MPRESSION: 1. Cardiomegaly with mild congestion. 2. Right pleural effusion. Chest ultrasound revealed: IMPRESSION: 1. LARGE RIGHT PLEURAL EFFUSION. VOLUME NOT CALCULATED. CT of the head revealed: IMPRESSION: 1. No acute intracranial abnormality. CTA of lungs revealed: IMPRESSION: 1. No evidence of pulmonary embolus. 2. Large right pleural effusion. Consolidation of the left lung base may represent infectious process or atelectasis. 3. Diffuse centrilobular emphysema Venous duplex of lower ext revealed: Impression: No right or left femoropopliteal venous thrombosis. Venous duplex of upper ext revealed: IMPRESSION: Right upper extremity: Occlusive thrombophlebitis of the cephalic vein. No evidence of DVT. Moderate subcutaneous edema noted. Left upper extremity: No evidence of DVT or SVT. Telemetry reveals paced rhythm Echocardiogram reported: Left ventricle: Concentric left ventricular hypertrophy was seen. LVEF was around 25%. Septal flattening was seen. Paradoxical septal motion was observed. Right ventricle was dilated with reduced systolic function. Both atria were dilated. Pacing wire were seen right-sided chambers. Aortic valve was not well visualized. There was mild aortic insufficiency. There was no aortic stenosis. There was mild mitral regurgitation. There was mild to moderate tricuspid regurgitation. Pulmonary valve was not well visualized. Right ventricular systolic pressure was assessed at 52 mm Hg. There was no pericardial effusion. ICD interrogation: Medtronic BiV-ICD interrogation: Remaining battery: 3.8 years; DDD: 80/130; Pacing impedance: 399 A/361 RV Ohms; Defibrillation independence: RV = 39 Ohms; Repeated shocks for VT/VF Patient is a 64-year-old gentleman who presented with post arrest. It is of note that the patient did have arrest (V-tach VFib) in June 2024. At that point he was started on some antiarrhythmics which unfortunately have not been continued as outpatient. Serial high sensitive troponin has been negative and acute coronary syndrome is not considered for clinical presentation at this point. We do have a recent cardiac catheterization also (June 2024). It is also of note that the patient does have history of repeated DVTs and also pancytopenia/GI bleedings. Acute arrest Rule out PE s/p Defibrillation secondary to V-fib/Vtach (in June 2024) Encephalopathy? Baseline pulmonary hypertension Baseline systolic heart failure Status post BiV-ICD End-stage renal disease, Noncompliant with medication, followups and hemodialysis Pancytopenia History of GI bleeding Cephalic vein thrombosis VT/VF Cardiac suggestion for management: Manage in tele Follow-up electrolytes and kidney function tests and correct abnormalities Amiodarone/mexiletine On Eliquis, no need for ASA Cardiac arguelles, is stable and can be followed as outpatient Evaluation and management of pleural effusion as per Pulmonary/primary team DVT prophylaxis Further evaluation and management depends on the above and clinical course A total of 55 minutes was spent reviewing the patient record, examining the patient, making a diagnostic and therapeutic plan, discussing this plan with medical personnel, following up on diagnostic studies and following the patient for clinical stability excluding any and all procedures. At least 50% of this time was spent in direct, [id number] contact. Thank you for allowing me to participate in this patient's care. Further recommendations will depend on patient's clinical course. Please do not hesitate to contact me if you have any questions or concerns. This medical document was created using electronic medical record system with [employer] computerized dictation system. Although this document has been carefully reviewed, there may still be some phonetic and typographical errors. These areas are purely typographical due to the imperfection of the software programs, and do not reflect any compromise in the patient's medical care. Dietary Evaluation Review Recommendations by RD: Protein Supplementation Comments: 1) Initiate Pro-Stat @ 30 mL qd 2) Initiate Ovi @ 1 pk bid 3) Initiate Nephro-Eri @ 1 tb qd 4) If patient remains NPO > 7 days, consider EN/TPN to meet at least 75% of estimated daily needs 5) Advance to renal standard diet when medically feasible, pending WHITE METAL CORROSION PROOFER approval 4) Continue to monitor I&O, labs, and skin integrity Expected Outcomes/Goals: 1) patient to receive nutritional support within 7 days 2) labs and wound to improve 3) diet to advance 4) f/u in 2-3 days Plan discussed with: Patient, Other (nurse) SUSHMA WALKER MD Aug 18, 2024 07:01
[2024-08-18 07:43] LABS: Hematocrit 25.4 % (41.0-53.0); Hemoglobin 8.3 g/dL (13.5-17.5); Mean Corpuscular Hgb Conc. 32.8 g/dL (32.0-36.0)
[2024-08-18 07:46] LABS: Mean Corpuscular Volume 100.5 fL (80.0-100.0); Platelet Count (auto) 103 10^3/uL (140-450); Red Blood Cells 2.53 10^6/uL (4.5-5.90); White Blood Cell 2.9 10^3/uL (4.4-10.8)
[2024-08-18 07:51] LABS: % Iron Saturation 46.4 % (20-55)
[2024-08-18 07:53] LABS: Red Cell Distribution Width 20.5 % (11.8-14.3)
[2024-08-18 07:54] LABS: Band Neutrophils % (manual) 0; Basophils % (manual) 0 (0.0-2.0); Blast Cells 0; Metamyelocytes % 0; Myelocytes % 0; Promyelocytes % 0; Reactive Lymphocytes 0
[2024-08-18 08:28] LABS: Alanine Aminotransferase < 9 U/L (7-40); Albumin 3.1 g/dL (3.2-4.8); Alkaline Phosphatase 97 U/L (46-116); Anion Gap 10 (5-15); Aspartate Aminotransferase < 8 U/L (13-40); BUN/Creatinine Ratio 8.3 (10.0-20.0); Bilirubin, Total 0.4 mg/dL (0.2-1.0); Blood Urea Nitrogen 39 mg/dL (9-23); Calcium 9.9 mg/dL (8.7-10.4); Carbon Dioxide 29 mmol/L (20-31); Chloride 97 mmol/L (98-107); Glucose 79 mg/dL (74-106); Magnesium 2.2 mg/dL (1.6-2.6); Phosphorus 4.2 mg/dL (2.4-5.1); Potassium 3.6 mmol/L (3.5-5.1); Sodium 136 mmol/L (136-145); Total Protein 5.5 g/dL (5.7-8.2)
[2024-08-18 08:41] LABS: Anisocytosis Slight; Eosinophils % (manual) 10 (0-7); Lymphocytes % (manual) 17 (10.0-50.0); Macrocytosis Slight; Monocytes % (manual) 1 (0-12); Platelet Estimate Decreased
--- NOTE | 2024-08-18 09:09 | DVH ---
CHEST RADIOGRAPH Indication: SOB Technique: Single frontal view of the chest was obtained Comparison: XY CHEST PORTABLE on DOS: 08/14/24, XY CHEST PORTABLE on DOS: 08/13/24, XY CHEST PORTABLE on DOS: 08/12/24, XY CHEST XRAY 1 VIEW on DOS: 08/11/24, XY CHEST PORTABLE on DOS: 08/11/24, XY CHEST PORTABLE on DOS: 08/14/24 FINDINGS: Lines and Tubes: Left chest AICD. Right tunneled central venous catheter in satisfactory position. Lungs: Congestion Pleura: Small bilateral pleural effusions. No pneumothorax. Cardiomediastinal contours: Cardiomegaly Bones: Unremarkable IMPRESSION: 1. No significant interval change
--- NOTE | 2024-08-18 12:28 | DVHPN2 ---
Progress Note - Dictate Date Seen: Aug 18, 2024 Medical Necessity Reason Pt with a Central, PICC or Fol: Yes The following are medically ne: Central Line, Lynne Catheter Reason for lynne catheter: Strict I&O Subjective No issues today reported by the patient except for generalized weakness. vital signs Vital Sign Date Time Temp Pulse Resp B/P (MAP) Pulse Ox O2 Delivery O2 Flow Rate FiO2 08/18/24 10:00 95 Nasal Cannula* 3 32 08/18/24 09:00 97.5 62 16 136/58 (84) 97.5 Total Intake and Output 08/17/24 08/17/24 08/18/24 15:00 23:00 07:00 Intake Total 100 ml 300 ml 300 ml Output Total 75 ml 100 ml Balance 100 ml 225 ml 200 ml medications Current Medications Medications Dose Ordered Sig/Colleen Route Start Time Stop Time Status Last Admin Dose Admin Ondansetron HCl 4 mg Q4HP PRN IV 08/08/24 19:00 08/11/24 14:14 4 MG Acetaminophen 650 mg Q6HP PRN PO 08/08/24 19:00 Nitroglycerin 0.4 mg Q5MINP PRN SL 08/08/24 19:00 Pantoprazole Sodium 40 mg DAILY IV 08/10/24 10:00 08/18/24 09:21 40 MG Piperacillin Sod/ Tazobactam Sod 100 ml @ 25 mls/hr Q12HR IV 08/10/24 22:00 08/18/24 09:22 25 MLS/HR Mexiletine HCl 150 mg Q8HR PO 08/12/24 14:00 08/18/24 05:53 150 MG Amiodarone HCl 200 mg BID PO 08/12/24 22:00 08/18/24 09:22 200 MG Enteral Nutritional Formula 28.8 gm DAILY PO 08/13/24 10:00 08/18/24 09:22 28.8 GM Enteral Nutritional Formula 240 ml DAILY PO 08/13/24 10:00 08/18/24 09:22 240 ML Apixaban 2.5 mg BID PO 08/14/24 22:00 08/18/24 09:21 2.5 MG Albuterol 2.5 mg Q6HPRN PRN NEB 08/15/24 17:45 Ipratropium [place] 0.5 mg Q6HPRN PRN NEB 08/15/24 17:45 Clonidine HCl 0.1 mg TID PRN PO 08/17/24 22:15 Furosemide 80 mg BIDD IV 08/18/24 18:00 UNV objective HEENT: No evidence of JVD, no oral ulcers. Pulmonary: Diminished lung sounds on auscultation bilaterally Cardiovascular S1-S2, no S3 or S4 Abdomen: Bowel sounds positive, soft no rebound tenderness Skin: No rash Neurological: Alert, oriented, no focal weakness Access: Right tunneled IJ dialysis catheter laboratory and microbiology Laboratory Tests 08/18/24 06:25 Test 08/18/24 06:25 Range/Units Serum Glucose 79 74-106 mg/dL Assessment/Plan Assessment: ESRD on HD TTS s/p cardiac arrest with ROSC Acute hypoxic respiratory failure, extubated on supplemental oxygen Bilateral pleural effusions, small Sepsis secondary to pneumonia Hyponatremia Lactic acidosis Hypoalbuminemia HTN Atrial fibrillation CAD s/p stent s/p pacemaker chronic diastolic CHF Pancytopenia Plan: HD schedule: TTS Continue IV antibiotics, renally dose On Eliquis, amiodarone. Lasix to IV 80 mg twice a day meanwhile inpatient NAZANIN post HD as needed. goal Hb: 10-11 g/dl Thank you very much for allowing us to participate in the care of this patient Dietary Evaluation Review Recommendations by RD: Protein Supplementation Comments: 1) Initiate Pro-Stat @ 30 mL qd 2) Initiate Ovi @ 1 pk bid 3) Initiate Nephro-Eri @ 1 tb qd 4) If patient remains NPO > 7 days, consider EN/TPN to meet at least 75% of estimated daily needs 5) Advance to renal standard diet when medically feasible, pending SITE LEAD approval 4) Continue to monitor I&O, labs, and skin integrity Expected Outcomes/Goals: 1) patient to receive nutritional support within 7 days 2) labs and wound to improve 3) diet to advance 4) f/u in 2-3 days Plan discussed with: Patient RONEL SHELTON MD Aug 18, 2024 12:28
--- NOTE | 2024-08-18 20:22 | DVHPNRES ---
Progress Note Date Seen: Aug 18, 2024 Resident Creating Document: MEHNAZ MCMAHAN Medical Necessity Reason Pt with a Central, PICC or Fol: Yes The following are medically ne: Central Line, Lynne Catheter Reason for lynne catheter: Strict I&O Subjective Review of Systems Patient is a 64-year-old male with a past medical history as reported below was brought to the hospital in cardiopulmonary arrest. As per the report patient had hemodialysis and was being taken back to the shelter facility when he underwent a cardiopulmonary arrest in the vehicle and was brought to the hospital. ROSC was achieved following which the patient was intubated and shifted to ICU level of care. Patient was treated with antiarrhythmic medications, regular hemodialysis, IV antibiotics for suspected pneumonia, with vasopressor support and mechanical ventilation. Ventilation requirements decreased and the patient was extubated on 08/11/2024. Right-sided pleural effusion was noted following which she had a thoracentesis with a 1.5 L of fluid was removed. Patient getting regular hemodialysis on Saturday and Saturday and is followed by financial aid officer Dr. Wong and [employer] hr developer Dr. Booth. Past medical history: End-stage renal disease on hemodialysis, heart failure with reduced ejection fraction, prostate cancer, coronary artery disease s/p PCI, history of VFib and sustained V-tach, multiple DVTs, , H/O GI bleeding, pulmonary hypertension Past surgical history: Right AV fistula, s/p repeated right AV fistula thrombectomy, status post biventricular ICD implantation, multiple cardiac ablations, PCI Social history: Patient came to the hospital from shelter facility where he was discharged for physical rehab, denies smoking, alcohol, drug use Review of systems Patient seen and examined at the bedside Patient was alert and oriented x3 and does not appear to be any distress Denies chest pain, palpitations, headache Objective vital signs Vital Sign Date Time Temp Pulse Resp B/P (MAP) Pulse Ox O2 Delivery O2 Flow Rate FiO2 08/18/24 17:00 97.5 70 18 126/69 (88) 92 97.5 08/18/24 10:00 Nasal Cannula* 3 32 Total Intake and Output 08/17/24 08/17/24 08/18/24 15:00 23:00 07:00 Intake Total 100 ml 300 ml 300 ml Output Total 75 ml 100 ml Balance 100 ml 225 ml 200 ml medications Current Medications Medications Dose Ordered Sig/Colleen Route Start Time Stop Time Status Last Admin Dose Admin Ondansetron HCl 4 mg Q4HP PRN IV 08/08/24 19:00 08/11/24 14:14 4 MG Acetaminophen 650 mg Q6HP PRN PO 08/08/24 19:00 Nitroglycerin 0.4 mg Q5MINP PRN SL 08/08/24 19:00 Pantoprazole Sodium 40 mg DAILY IV 08/10/24 10:00 08/18/24 09:21 40 MG Mexiletine HCl 150 mg Q8HR PO 08/12/24 14:00 08/18/24 05:53 150 MG Amiodarone HCl 200 mg BID PO 08/12/24 22:00 08/18/24 09:22 200 MG Enteral Nutritional Formula 28.8 gm DAILY PO 08/13/24 10:00 08/18/24 09:22 28.8 GM Enteral Nutritional Formula 240 ml DAILY PO 08/13/24 10:00 08/18/24 09:22 240 ML Apixaban 2.5 mg BID PO 08/14/24 22:00 08/18/24 09:21 2.5 MG Albuterol 2.5 mg Q6HPRN PRN NEB 08/15/24 17:45 Ipratropium [place] 0.5 mg Q6HPRN PRN NEB 08/15/24 17:45 Clonidine HCl 0.1 mg TID PRN PO 08/17/24 22:15 Furosemide 80 mg BIDD IV 08/18/24 18:00 Examination Constitutional: Patient was alert and oriented x3 and appears to be in mild respiratory distress Gen - conjunctival pallor present, no icterus, no cyanosis, no clubbing, no LAD, no edema . Skin - Patients skin is warm and dry. HEENT - normocephalic, atraumatic, moist mucous membranes. Neck - full ROM, no LAD, no JVD Pulmonary - decreased basilar breath sounds with inspiratory crackles, no wheezing, no stridor. cardiovascular - variable S1,S2 heard. no murmurs heard. . capillary refill normal <2 secs. GI - soft abdomen, nondistended and no tenderness to palpation. no hepatospleenomegaly. Bowel sounds normoactive Neurological - Bilateral upper extremity strength 4/5, bilateral lower extremity strength 4/5, no facial droop, normal speech, no tremor, no sensory deficiets. Extremities: Right upper extremity AV fistula with positive thrill laboratory and microbiology Laboratory Tests 08/18/24 06:25 Test 08/18/24 06:25 Range/Units Serum Glucose 79 74-106 mg/dL Microbiology Date/Time Source Procedure Growth Status 08/11/24 19:50 Pleural Fluid Gram Stain - Final Complete 08/11/24 19:50 Pleural Fluid Body Fluid Culture - Final Complete 08/09/24 01:32 Nose MRSA Screen - Final Complete 08/08/24 21:20 Sputum Gram Stain - Final Complete 08/08/24 21:20 Sputum Respiratory Culture - Final Complete 08/08/24 18:04 Blood Blood Culture - Final NO GROWTH AFTER 5 DAYS OF INCUBATION. Complete Problem List/Assessment/Plan Problem List/Assessment/Plan Respiratory # acute on chronic hypoxic respiratory failure on mechanical ventilation, extubated # suspected left lower lung pneumonia likely due to Gram+/-bacteria vs atelectasis # pulmonary edema # pleural effusion # diffuse centrilobular emphysema - extubated on 08/11 - s/p right thoracentesis with 1.5 L removed, culture showed no growth - on oxygen at 3 L via nasal cannula - IV antibiotics held - Lasix 80 mg IV b.i.d. Cardiology # cardiopulmonary arrest status post ROSC # ventricular fibrillation/ventricular tachycardia # heart failure with reduced ejection fraction status post biventricular ICD # pulmonary hypertension # history of coronary artery disease status post PCI - echo from 08/11 showed LVEF 25% with concentric LVH, septal flattening, right ventricle dilation with reduced systolic function with a RVSP 52 mmHg - recent left heart catheterization in June 2024 revealed no obstructive CAD, patent stents in LAD/RCA - on amiodarone 200 mg b.i.d., mexiletine 150 mg q.8 hours - on eliquis 2.5mg bid - Lasix 80 mg IV b.i.d. Nephrology # end-stage renal disease on hemodialysis TTS # hypokalemia - hemodialysis done today - Lasix 80 mg IV b.i.d. - erythropoietin as per Nephrology after hemodialysis Gastrointestinal/Hematology # recent lower GI bleed # pancytopenia - H&H stable - on Protonix 40 mg IV daily - nutritional supplement Nepro Midline left upper arm placed on 08/14 Right subclavian tunneled dialysis catheter Lynne catheter inserted on 08/09 PUD prophylaxis: Protonix DVT prophylaxis: On Eliquis Goals of care discussed with the patient for over 31 minutes. Code status: Chemical code only no intubation Plan discussed with Dr. Klein Plan discussed with: Patient, Other (RN ( Bharat )) My Orders My Orders Orders - MEHNAZ MCMAHAN Procedure Category Date Status Time Clonidine Hcl Tablet PHA 08/17/24 In Process (Catapres Tablet) 22:15 Chest Xray 1 View XY 08/18/24 Resulted 07:47 * Stripping Cutter And Winder CONS 08/18/24 Transmitted Consult Furosemide Injection PHA 08/18/24 In Process (Lasix Injection) 18:00 Complete Blood Count LAB 08/19/24 Verified 04:00 Basic Metabolic Panel LAB 08/19/24 Verified 04:00 Dietary Evaluation Review Recommendations by RD: Protein Supplementation Comments: 1) Initiate Pro-Stat @ 30 mL qd 2) Initiate Ovi @ 1 pk bid 3) Initiate Nephro-Eri @ 1 tb qd 4) If patient remains NPO > 7 days, consider EN/TPN to meet at least 75% of estimated daily needs 5) Advance to renal standard diet when medically feasible, pending BEAM RACKER approval 4) Continue to monitor I&O, labs, and skin integrity Expected Outcomes/Goals: 1) patient to receive nutritional support within 7 days 2) labs and wound to improve 3) diet to advance 4) f/u in 2-3 days Date of Service: Aug 18, 2024 Billing Provider: BELTRAN KLEIN MD Common Visit Codes: 52088-[id number] INP/OBS CARE(HIGH) Secondary Visit Codes: [id number] CARE PLAN 30 MINUTES MEHNAZ MCMAHAN Aug 18, 2024 20:22 BELTRAN KLEIN MD Aug 19, 2024 15:52
[2024-08-18] MEDS: EPOETIN ALFA-EPBX 10,000 UNIT/1ML VIAL SC ONE (21:18)
[2024-08-19] VITALS (13 sets, daily range): BP systolic 88–144; BP diastolic 44–74; PULSE 65–98; RESP 14–19; TEMP 96.5–98.4; O2SAT 93–97
[2024-08-19] MEDS: FUROSEMIDE 100 MG/10ML VIAL IV SCH (06:00)
--- NOTE | 2024-08-19 06:42 | DVHPN2 ---
Progress Note - Dictate Date Seen: Aug 19, 2024 Medical Necessity Reason Pt with a Central, PICC or Fol: Yes The following are medically ne: Central Line, Lynne Catheter Reason for lynne catheter: Strict I&O vital signs Vital Sign Date Time Temp Pulse Resp B/P (MAP) Pulse Ox O2 Delivery O2 Flow Rate FiO2 08/19/24 06:18 144/68 08/19/24 05:00 97.6 71 17 94 97.6 08/19/24 01:30 Nasal Cannula* 2 28 Total Intake and Output 08/18/24 08/18/24 08/19/24 15:00 23:00 07:00 Intake Total 300 ml 100 ml Output Total 100 ml 20 ml Balance 200 ml 80 ml medications Current Medications Medications Dose Ordered Sig/Colleen Route Start Time Stop Time Status Last Admin Dose Admin Ondansetron HCl 4 mg Q4HP PRN IV 08/08/24 19:00 08/11/24 14:14 4 MG Acetaminophen 650 mg Q6HP PRN PO 08/08/24 19:00 Nitroglycerin 0.4 mg Q5MINP PRN SL 08/08/24 19:00 Pantoprazole Sodium 40 mg DAILY IV 08/10/24 10:00 08/18/24 09:21 40 MG Mexiletine HCl 150 mg Q8HR PO 08/12/24 14:00 08/19/24 06:19 150 MG Amiodarone HCl 200 mg BID PO 08/12/24 22:00 08/18/24 21:20 200 MG Enteral Nutritional Formula 28.8 gm DAILY PO 08/13/24 10:00 08/18/24 09:22 28.8 GM Enteral Nutritional Formula 240 ml DAILY PO 08/13/24 10:00 08/18/24 09:22 240 ML Apixaban 2.5 mg BID PO 08/14/24 22:00 08/18/24 21:17 2.5 MG Albuterol 2.5 mg Q6HPRN PRN NEB 08/15/24 17:45 Ipratropium [place] 0.5 mg Q6HPRN PRN NEB 08/15/24 17:45 Clonidine HCl 0.1 mg TID PRN PO 08/17/24 22:15 Furosemide 80 mg BIDD IV 08/18/24 18:00 08/19/24 06:18 80 MG laboratory and microbiology Laboratory Tests 08/18/24 06:25 Test 08/18/24 06:25 Range/Units Serum Glucose 79 74-106 mg/dL Assessment/Plan Patient is a 64-year-old gentleman who was brought to the hospital for arrest. Reportedly the patient had hemodialysis and was being taken back, when he arrested at transport vehicle and was brought to the hospital. Reportedly EMS was performing CPR prior to arrival to the hospital which was continued in emergency room. Patient is intubated and is being managed in [facility]/ICU. Cardiology is involved for cardiac aspects of care. Patient is known to our practice from before. It is of note that the patient was in the hospital in mid June up to early July for an episode of cardiac arrest/VFib. At that time he was started on amiodarone/mexiletine. It is also of note that the patient was brought back later in July and for some reason the antiarrhythmic drugs were not continued (was not seen by Cardiology at that point). Review of the transfer notes reveals that he has not been taking the above noted antiarrhythmics. It is also of note that the patient did have angiogram in late June which revealed patent stents and no indication for intervention. Patient does have a Medtronic BiV-ICD. He does have baseline history of noncompliance. He also has history of repeated GI bleedings and also DVT. Prior to this arrival, the patient was not on any anticoagulation (was it held because of GI bleeding/pancytopenia?). Extubated. No JVD. Mucosa is pink and wet. No carotid bruit. Lungs: Scattered rhonchi in the lungs is heard. Cardiac: Regular, systolic murmur 3/6 in the apex is heard. The site for ICD implantation looks clean with no erythema/ecchymosis/tenderness. Abdomen is soft. Bowel sound is positive. Extremities reveal 3+ edema bilaterally in lower and upper ext. 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 Echocardiogram of April 08, 2024 had reported four-chamber dilatation, ejection fraction of 20%, [id number] MR/TR and right ventricular systolic pressure of 75 mm Hg Echocardiogram of May 19, 2024 had reported four-chamber dilatation, ejection fraction of 35%, D shaped septum, pulmonary hypertension, mobile interatrial septum, [id number] aortic insufficiency, mild mitral regurgitation, moderate TR and right ventricular systolic pressure of 80 mm Hg Echocardiogram of June 28, 2024 reported ejection fraction of 20%, septal flattening and biatrial enlargement Left heart catheterization of July 06, 2024 revealed no obstructive coronary artery disease. There was patent stents in LAD/RCA. Troponin (high sensitive): 42 - 41 - 50 BNP: 416.54 D-Dimer: 3.80 Chest x-ray revealed: IMPRESSION: 1. Endotracheal tube in place 9.3 cm above the elizabeth. 2. Right internal jugular catheter in place in the superior vena cava 3. Enteric tube at the gastroesophageal junction recommend advancement 3-4 inches. 4. Dual-chamber biventricular pacemaker in place with pulse generator over the left chest, 5. Right lower lobe infiltrate and effusion worse than 07/30/2024 tubing overlying the lower right lung field correlate for possible chest tube placement. Repeat chest x-ray revealed: IMPRESSION: 1. Endotracheal tube has been repositioned now 7.6 cm above the elizabeth. Repeat chest x-ray revealed: IMPRESSION: 1. Endotracheal tube has been repositioned now 7.6 cm above the elizabeth. Repeat chest x-ray revealed: IMPRESSION: Bibasilar atelectasis or pneumonia. Repeat chest xry revealed: IMPRESSION: 1. Bibasilar atelectasis or pneumonia. 2. Pulmonary venous congestion. Repeat chest xry revealed: IMPRESSION: 1. Right pleural effusion. Airspace disease right lower lobe. 2. No pneumothorax. 3. Biventricular pacemaker in place unchanged 4. Hemodialysis catheter from the right in the superior vena cava above the right atrium. Repeat chest xry revealed: MPRESSION: 1. Cardiomegaly with mild congestion. 2. Right pleural effusion. Chest ultrasound revealed: IMPRESSION: 1. LARGE RIGHT PLEURAL EFFUSION. VOLUME NOT CALCULATED. CT of the head revealed: IMPRESSION: 1. No acute intracranial abnormality. CTA of lungs revealed: IMPRESSION: 1. No evidence of pulmonary embolus. 2. Large right pleural effusion. Consolidation of the left lung base may represent infectious process or atelectasis. 3. Diffuse centrilobular emphysema Venous duplex of lower ext revealed: Impression: No right or left femoropopliteal venous thrombosis. Venous duplex of upper ext revealed: IMPRESSION: Right upper extremity: Occlusive thrombophlebitis of the cephalic vein. No evidence of DVT. Moderate subcutaneous edema noted. Left upper extremity: No evidence of DVT or SVT. Telemetry reveals paced rhythm Echocardiogram reported: Left ventricle: Concentric left ventricular hypertrophy was seen. LVEF was around 25%. Septal flattening was seen. Paradoxical septal motion was observed. Right ventricle was dilated with reduced systolic function. Both atria were dilated. Pacing wire were seen right-sided chambers. Aortic valve was not well visualized. There was mild aortic insufficiency. There was no aortic stenosis. There was mild mitral regurgitation. There was mild to moderate tricuspid regurgitation. Pulmonary valve was not well visualized. Right ventricular systolic pressure was assessed at 52 mm Hg. There was no pericardial effusion. ICD interrogation: Medtronic BiV-ICD interrogation: Remaining battery: 3.8 years; DDD: 80/130; Pacing impedance: 399 A/361 RV Ohms; Defibrillation independence: RV = 39 Ohms; Repeated shocks for VT/VF Patient is a 64-year-old gentleman who presented with post arrest. It is of note that the patient did have arrest (V-tach VFib) in June 2024. At that point he was started on some antiarrhythmics which unfortunately have not been continued as outpatient. Serial high sensitive troponin has been negative and acute coronary syndrome is not considered for clinical presentation at this point. We do have a recent cardiac catheterization also (June 2024). It is also of note that the patient does have history of repeated DVTs and also pancytopenia/GI bleedings. Acute arrest Rule out PE s/p Defibrillation secondary to V-fib/Vtach (in June 2024) Encephalopathy? Baseline pulmonary hypertension Baseline systolic heart failure Status post BiV-ICD End-stage renal disease, Noncompliant with medication, followups and hemodialysis Pancytopenia History of GI bleeding Cephalic vein thrombosis VT/VF Cardiac suggestion for management: Manage in tele Follow-up electrolytes and kidney function tests and correct abnormalities Amiodarone/mexiletine On Eliquis Cardiac arguelles, is stable and can be followed as outpatient Evaluation and management of pleural effusion as per Pulmonary/primary team DVT prophylaxis Further evaluation and management depends on the above and clinical course A total of 55 minutes was spent reviewing the patient record, examining the patient, making a diagnostic and therapeutic plan, discussing this plan with medical personnel, following up on diagnostic studies and following the patient for clinical stability excluding any and all procedures. At least 50% of this time was spent in direct, [id number] contact. Thank you for allowing me to participate in this patient's care. Further recommendations will depend on patient's clinical course. Please do not hesitate to contact me if you have any questions or concerns. This medical document was created using electronic medical record system with [employer] computerized dictation system. Although this document has been carefully reviewed, there may still be some phonetic and typographical errors. These areas are purely typographical due to the imperfection of the software programs, and do not reflect any compromise in the patient's medical care. Dietary Evaluation Review Recommendations by RD: Protein Supplementation Comments: 1) Initiate Pro-Stat @ 30 mL qd 2) Initiate Ovi @ 1 pk bid 3) Initiate Nephro-Eri @ 1 tb qd 4) If patient remains NPO > 7 days, consider EN/TPN to meet at least 75% of estimated daily needs 5) Advance to renal standard diet when medically feasible, pending BOXING INSPECTOR approval 4) Continue to monitor I&O, labs, and skin integrity Expected Outcomes/Goals: 1) patient to receive nutritional support within 7 days 2) labs and wound to improve 3) diet to advance 4) f/u in 2-3 days Plan discussed with: Patient, Other (nurse) SUSHMA WALKER MD Aug 19, 2024 06:42
[2024-08-19 08:29] LABS: Hematocrit 25.8 % (41.0-53.0); Hemoglobin 8.4 g/dL (13.5-17.5); Mean Corpuscular Hemoglobin 32.7 pg (28.0-32.0); Mean Corpuscular Hgb Conc. 32.6 g/dL (32.0-36.0); Mean Corpuscular Volume 100.5 fL (80.0-100.0); Platelet Count (auto) 81 10^3/uL (140-450); Red Blood Cells 2.57 10^6/uL (4.5-5.90); White Blood Cell 3.4 10^3/uL (4.4-10.8)
[2024-08-19 08:32] LABS: Red Cell Distribution Width 20.8 % (11.8-14.3)
[2024-08-19 08:33] LABS: Band Neutrophils % (manual) 0; Basophils % (manual) 0 (0.0-2.0); Blast Cells 0; Metamyelocytes % 0; Myelocytes % 0; Promyelocytes % 0; Reactive Lymphocytes 0
[2024-08-19 08:35] LABS: Chloride 99 mmol/L (98-107); Potassium 3.7 mmol/L (3.5-5.1); Sodium 137 mmol/L (136-145)
[2024-08-19 08:36] LABS: Anion Gap 6 (5-15)
[2024-08-19 08:39] LABS: Carbon Dioxide 32 mmol/L (20-31)
[2024-08-19 08:42] LABS: BUN/Creatinine Ratio 6.5 (10.0-20.0)
[2024-08-19 08:44] LABS: Blood Urea Nitrogen 27 mg/dL (9-23); Glucose 65 mg/dL (74-106)
[2024-08-19 12:18] LABS: Anisocytosis Slight; Eosinophils % (manual) 18 (0-7); Lymphocytes % (manual) 5 (10.0-50.0); Macrocytosis Slight; Monocytes % (manual) 10 (0-12); Platelet Estimate Decreased
--- NOTE | 2024-08-19 14:10 | DVHPN2 ---
Progress Note - Dictate Date Seen: Aug 19, 2024 Medical Necessity Reason Pt with a Central, PICC or Fol: Yes The following are medically ne: Central Line, Lynne Catheter Reason for lynne catheter: Strict I&O Subjective Patient denies any acute events, he wants to go home. vital signs Vital Sign Date Time Temp Pulse Resp B/P (MAP) Pulse Ox O2 Delivery O2 Flow Rate FiO2 08/19/24 13:48 94 Nasal Cannula 2.0 08/19/24 13:48 28 08/19/24 12:30 96.5 69 16 88/45 (59) 96.5 Total Intake and Output 08/18/24 08/18/24 08/19/24 15:00 23:00 07:00 Intake Total 300 ml 100 ml Output Total 100 ml 20 ml Balance 200 ml 80 ml medications Current Medications Medications Dose Ordered Sig/Colleen Route Start Time Stop Time Status Last Admin Dose Admin Ondansetron HCl 4 mg Q4HP PRN IV 08/08/24 19:00 08/11/24 14:14 4 MG Acetaminophen 650 mg Q6HP PRN PO 08/08/24 19:00 Nitroglycerin 0.4 mg Q5MINP PRN SL 08/08/24 19:00 Pantoprazole Sodium 40 mg DAILY IV 08/10/24 10:00 08/19/24 08:54 40 MG Mexiletine HCl 150 mg Q8HR PO 08/12/24 14:00 08/19/24 06:19 150 MG Amiodarone HCl 200 mg BID PO 08/12/24 22:00 08/19/24 08:54 200 MG Enteral Nutritional Formula 28.8 gm DAILY PO 08/13/24 10:00 08/19/24 08:44 28.8 GM Enteral Nutritional Formula 240 ml DAILY PO 08/13/24 10:00 08/19/24 08:44 240 ML Apixaban 2.5 mg BID PO 08/14/24 22:00 08/18/24 21:17 2.5 MG Albuterol 2.5 mg Q6HPRN PRN NEB 08/15/24 17:45 Ipratropium [place] 0.5 mg Q6HPRN PRN NEB 08/15/24 17:45 Clonidine HCl 0.1 mg TID PRN PO 08/17/24 22:15 Furosemide 80 mg BIDD IV 08/18/24 18:00 08/19/24 06:18 80 MG objective HEENT: No evidence of JVD, no oral ulcers. Pulmonary: Diminished lung sounds on auscultation bilaterally Cardiovascular S1-S2, no S3 or S4 Abdomen: Bowel sounds positive, soft no rebound tenderness Skin: No rash Neurological: Alert, oriented, no focal weakness Access: Right tunneled IJ dialysis catheter laboratory and microbiology Laboratory Tests 08/19/24 08:01 Test 08/19/24 08:01 Range/Units Serum Glucose 65 L 74-106 mg/dL Assessment/Plan Assessment: ESRD on HD TTS s/p cardiac arrest with ROSC Acute hypoxic respiratory failure, extubated on supplemental oxygen Bilateral pleural effusions, small Sepsis secondary to pneumonia Hyponatremia Lactic acidosis Hypoalbuminemia HTN Atrial fibrillation CAD s/p stent s/p pacemaker chronic diastolic CHF Pancytopenia Plan: HD schedule: TTS Continue IV antibiotics, renally dose On Eliquis, amiodarone. Lasix to IV 80 mg twice a day meanwhile inpatient NAZANIN post HD as needed. goal Hb: 10-11 g/dl Okay from Nephrology standpoint to be discharged. Thank you very much for allowing us to participate in the care of this patient Dietary Evaluation Review Recommendations by RD: Protein Supplementation Comments: 1) Initiate Pro-Stat @ 30 mL qd 2) Initiate Ovi @ 1 pk bid 3) Initiate Nephro-Eri @ 1 tb qd 4) If patient remains NPO > 7 days, consider EN/TPN to meet at least 75% of estimated daily needs 5) Advance to renal standard diet when medically feasible, pending PATTERN CHANGER AND REPAIRER approval 4) Continue to monitor I&O, labs, and skin integrity Expected Outcomes/Goals: 1) patient to receive nutritional support within 7 days 2) labs and wound to improve 3) diet to advance 4) f/u in 2-3 days Plan discussed with: Patient RONEL SHELTON MD Aug 19, 2024 14:10
[2024-08-19 15:41] LABS: Hematocrit 26.4 % (41.0-53.0); Hemoglobin 8.5 g/dL (13.5-17.5)
--- NOTE | 2024-08-19 20:39 | DVHPNRES ---
Progress Note Date Seen: Aug 19, 2024 Resident Creating Document: MEHNAZ MCMAHAN Medical Necessity Reason Pt with a Central, PICC or Fol: Yes The following are medically ne: Central Line, Lynne Catheter Reason for lynne catheter: Strict I&O Subjective Review of Systems Patient is a 64-year-old male with a past medical history as reported below was brought to the hospital in cardiopulmonary arrest. As per the report patient had hemodialysis and was being taken back to the [facility] facility when he underwent a cardiopulmonary arrest in the vehicle and was brought to the hospital. ROSC was achieved following which the patient was intubated and shifted to ICU level of care. Patient was treated with antiarrhythmic medications, regular hemodialysis, IV antibiotics for suspected pneumonia, with vasopressor support and mechanical ventilation. Ventilation requirements decreased and the patient was extubated on 08/11/2024. Right-sided pleural effusion was noted following which she had a thoracentesis with a 1.5 L of fluid was removed. Patient getting regular hemodialysis on Saturday and Saturday and is followed by mortgage loan processor Dr. Wong and forest management teacher Dr. Booth. Past medical history: End-stage renal disease on hemodialysis, heart failure with reduced ejection fraction, prostate cancer, coronary artery disease s/p PCI, history of VFib and sustained V-tach, multiple DVTs, , H/O GI bleeding, pulmonary hypertension Past surgical history: Right AV fistula, s/p repeated right AV fistula thrombectomy, status post biventricular ICD implantation, multiple cardiac ablations, PCI Social history: Patient came to the hospital from [facility] facility where he was discharged for physical rehab, denies smoking, alcohol, drug use Review of systems Patient seen and examined at the bedside Patient was alert and oriented x3 and does not appear to be any distress Denies chest pain, palpitations, headache In the morning, pinkish blood-tinged urine was seen in the Lynne's catheter In the afternoon patient had a bowel movement with a blood Eliquis stopped Objective vital signs Vital Sign Date Time Temp Pulse Resp B/P (MAP) Pulse Ox O2 Delivery O2 Flow Rate FiO2 08/19/24 16:50 132/74 08/19/24 16:42 98.4 71 19 96 98.4 08/19/24 13:48 Nasal Cannula 2.0 08/19/24 13:48 28 Total Intake and Output 08/18/24 08/18/24 08/19/24 15:00 23:00 07:00 Intake Total 300 ml 100 ml Output Total 100 ml 20 ml Balance 200 ml 80 ml medications Current Medications Medications Dose Ordered Sig/Colleen Route Start Time Stop Time Status Last Admin Dose Admin Ondansetron HCl 4 mg Q4HP PRN IV 08/08/24 19:00 08/11/24 14:14 4 MG Acetaminophen 650 mg Q6HP PRN PO 08/08/24 19:00 Nitroglycerin 0.4 mg Q5MINP PRN SL 08/08/24 19:00 Pantoprazole Sodium 40 mg DAILY IV 08/10/24 10:00 08/19/24 08:54 40 MG Mexiletine HCl 150 mg Q8HR PO 08/12/24 14:00 08/19/24 14:37 150 MG Amiodarone HCl 200 mg BID PO 08/12/24 22:00 08/19/24 08:54 200 MG Enteral Nutritional Formula 28.8 gm DAILY PO 08/13/24 10:00 08/19/24 08:44 28.8 GM Enteral Nutritional Formula 240 ml DAILY PO 08/13/24 10:00 08/19/24 08:44 240 ML Albuterol 2.5 mg Q6HPRN PRN NEB 08/15/24 17:45 Ipratropium [place] 0.5 mg Q6HPRN PRN NEB 08/15/24 17:45 Clonidine HCl 0.1 mg TID PRN PO 08/17/24 22:15 Furosemide 80 mg BIDD IV 08/18/24 18:00 08/19/24 16:50 80 MG Examination Constitutional: Patient was alert and oriented x3 and appears to be in mild respiratory distress Gen - conjunctival pallor present, no icterus, no cyanosis, no clubbing, no LAD, no edema . Skin - Patients skin is warm and dry. HEENT - normocephalic, atraumatic, moist mucous membranes. Neck - full ROM, no LAD, no JVD Pulmonary - decreased basilar breath sounds with inspiratory crackles, no wheezing, no stridor. cardiovascular - variable S1,S2 heard. no murmurs heard. . capillary refill normal <2 secs. GI - soft abdomen, nondistended and no tenderness to palpation. no hepatospleenomegaly. Bowel sounds normoactive Neurological - Bilateral upper extremity strength 4/5, bilateral lower extremity strength 4/5, no facial droop, normal speech, no tremor, no sensory deficiets. Extremities: Right upper extremity AV fistula with positive thrill laboratory and microbiology Laboratory Tests 08/19/24 15:00 08/19/24 08:01 Test 08/19/24 08:01 Range/Units Serum Glucose 65 L 74-106 mg/dL Microbiology Date/Time Source Procedure Growth Status 08/11/24 19:50 Pleural Fluid Gram Stain - Final Complete 08/11/24 19:50 Pleural Fluid Body Fluid Culture - Final Complete 08/09/24 01:32 Nose MRSA Screen - Final Complete 08/08/24 21:20 Sputum Gram Stain - Final Complete 08/08/24 21:20 Sputum Respiratory Culture - Final Complete 08/08/24 18:04 Blood Blood Culture - Final NO GROWTH AFTER 5 DAYS OF INCUBATION. Complete Problem List/Assessment/Plan Problem List/Assessment/Plan Respiratory # acute on chronic hypoxic respiratory failure on mechanical ventilation, extubated # suspected left lower lung pneumonia likely due to Gram+/-bacteria vs atelectasis # pulmonary edema # pleural effusion # diffuse centrilobular emphysema - extubated on 08/11 - s/p right thoracentesis with 1.5 L removed, culture showed no growth - on oxygen at 3 L via nasal cannula - IV antibiotics held - Lasix 80 mg IV b.i.d. Cardiology # cardiopulmonary arrest status post ROSC # ventricular fibrillation/ventricular tachycardia # heart failure with reduced ejection fraction status post biventricular ICD # pulmonary hypertension # history of coronary artery disease status post PCI - echo from 08/11 showed LVEF 25% with concentric LVH, septal flattening, right ventricle dilation with reduced systolic function with a RVSP 52 mmHg - recent left heart catheterization in June 2024 revealed no obstructive CAD, patent stents in LAD/RCA - on amiodarone 200 mg b.i.d., mexiletine 150 mg q.8 hours - on eliquis 2.5mg bid - Lasix 80 mg IV b.i.d. Nephrology # end-stage renal disease on hemodialysis TTS # hypokalemia # hematuria - hemodialysis done yesterday with removal of 1500ml of fluid - Lasix 80 mg IV b.i.d. - erythropoietin as per Nephrology after hemodialysis - Eliquis held Gastrointestinal/Hematology # lower GI bleed # pancytopenia - H&H stable - on Protonix 40 mg IV daily - nutritional supplement Nepro - Eliquis held Midline left upper arm placed on 08/14 Right subclavian tunneled dialysis catheter Lynne catheter inserted on 08/09 PUD prophylaxis: Protonix DVT prophylaxis: On Eliquis, held today Goals of care discussed with the patient for over 34 minutes. Code status: Chemical code only no intubation Plan discussed with Dr. Klein Plan discussed with: Patient, Other (RN ( Bharat )) My Orders My Orders Orders - MEHNAZ MCMAHAN RESIDENT Procedure Category Date Status Time * Director Summer Sessions CONS 08/19/24 Transmitted Consult Complete Blood Count LAB 08/20/24 Verified 04:00 Basic Metabolic Panel LAB 08/20/24 Verified 04:00 PTPTT LAB 08/20/24 Verified 04:00 Urinalysis LAB 08/20/24 Verified 04:00 Dietary Evaluation Review Recommendations by RD: Protein Supplementation Comments: 1) Initiate Pro-Stat @ 30 mL qd 2) Initiate Ovi @ 1 pk bid 3) Initiate Nephro-Eri @ 1 tb qd 4) If patient remains NPO > 7 days, consider EN/TPN to meet at least 75% of estimated daily needs 5) Advance to renal standard diet when medically feasible, pending ATMOSPHERIC PHYSICS PROFESSOR approval 4) Continue to monitor I&O, labs, and skin integrity Expected Outcomes/Goals: 1) patient to receive nutritional support within 7 days 2) labs and wound to improve 3) diet to advance 4) f/u in 2-3 days Date of Service: Aug 19, 2024 Billing Provider: BELTRAN KLEIN MD Common Visit Codes: [id number] INP/OBS CARE(HIGH) Secondary Visit Codes: [id number] CARE PLAN 30 MINUTES MEHNAZ MCMAHAN RESIDENT Aug 19, 2024 20:39 BELTRAN KLEIN MD Aug 20, 2024 16:07
[2024-08-20] VITALS (11 sets, daily range): BP systolic 106–142; BP diastolic 41–63; PULSE 62–74; RESP 16–20; TEMP 97.4–98.4; O2SAT 89–99
[2024-08-20] MEDS: ALBUTEROL SULF 2.5 MG/0.5ML(0.5%) NEB SOLN NEB PRN (00:28)
[2024-08-20] MEDS: IPRATROPIUM BROM 0.5 MG/2.5ML INH SOL NEB PRN (00:28)
[2024-08-20 06:53] LABS: Chloride 98 mmol/L (98-107); Sodium 136 mmol/L (136-145)
[2024-08-20 06:54] LABS: Anion Gap 8 (5-15); Calcium 9.3 mg/dL (8.7-10.4); Carbon Dioxide 30 mmol/L (20-31)
[2024-08-20 06:56] LABS: Potassium 3.5 mmol/L (3.5-5.1)
[2024-08-20 06:59] LABS: Blood Urea Nitrogen 29 mg/dL (9-23); Glucose 74 mg/dL (74-106)
[2024-08-20 07:03] LABS: Basophils # (auto) 0.1 10 ^3/uL (0-0.2); Eosinophils # (auto) 0.5 10 ^3/uL (0-0.8); Hemoglobin 8.1 g/dL (13.5-17.5); Lymphocytes # (auto) 0.3 10 ^3/uL (0.4-5.4); Mean Corpuscular Hemoglobin 33.4 pg (28.0-32.0); Monocytes # (auto) 0.5 10 ^3/uL (0-1.3); Neutrophils # (auto) 2.2 10 ^3/uL (1.6-8.6); Red Blood Cells 2.42 10^6/uL (4.5-5.90); White Blood Cell 3.6 10^3/uL (4.4-10.8)
[2024-08-20 07:05] LABS: Basophils % (auto) 2.8 % (0.0-2.0); Eosinophils % (auto) 13.5 % (0.0-7.0); Hematocrit 24.4 % (41.0-53.0); Lymphocytes % (auto) 8.2 % (10.0-50.0); Mean Corpuscular Hgb Conc. 33.1 g/dL (32.0-36.0); Monocytes % (auto) 12.8 % (0.0-12.0); Neutrophils % (auto) 62.7 % (37.0-80.0); Nucleated Red Blood Cells % 0.3 %
--- NOTE | 2024-08-20 07:19 | DVHPN2 ---
Progress Note - Dictate Date Seen: Aug 20, 2024 Medical Necessity Reason Pt with a Central, PICC or Fol: Yes The following are medically ne: Central Line, Lynne Catheter Reason for lynne catheter: Strict I&O vital signs Vital Sign Date Time Temp Pulse Resp B/P (MAP) Pulse Ox O2 Delivery O2 Flow Rate FiO2 08/20/24 05:52 132/60 08/20/24 05:00 98.0 67 18 94 98.0 08/19/24 20:24 Nasal Cannula 2.0 08/19/24 20:24 28 Total Intake and Output 08/19/24 08/19/24 08/20/24 15:00 23:00 07:00 Intake Total 960 ml 900 ml Output Total 100 ml 50 ml Balance 860 ml 850 ml medications Current Medications Medications Dose Ordered Sig/Colleen Route Start Time Stop Time Status Last Admin Dose Admin Ondansetron HCl 4 mg Q4HP PRN IV 08/08/24 19:00 08/11/24 14:14 4 MG Acetaminophen 650 mg Q6HP PRN PO 08/08/24 19:00 Nitroglycerin 0.4 mg Q5MINP PRN SL 08/08/24 19:00 Pantoprazole Sodium 40 mg DAILY IV 08/10/24 10:00 08/19/24 08:54 40 MG Mexiletine HCl 150 mg Q8HR PO 08/12/24 14:00 08/20/24 05:48 150 MG Amiodarone HCl 200 mg BID PO 08/12/24 22:00 08/19/24 22:17 200 MG Enteral Nutritional Formula 28.8 gm DAILY PO 08/13/24 10:00 08/19/24 08:44 28.8 GM Enteral Nutritional Formula 240 ml DAILY PO 08/13/24 10:00 08/19/24 08:44 240 ML Albuterol 2.5 mg Q6HPRN PRN NEB 08/15/24 17:45 08/20/24 00:28 2.5 MG Ipratropium [place] 0.5 mg Q6HPRN PRN NEB 08/15/24 17:45 08/20/24 00:28 0.5 MG Clonidine HCl 0.1 mg TID PRN PO 08/17/24 22:15 Furosemide 80 mg BIDD IV 08/18/24 18:00 08/19/24 16:50 80 MG laboratory and microbiology Laboratory Tests 08/20/24 06:07 Test 08/20/24 06:07 Range/Units Serum Glucose 74 74-106 mg/dL Assessment/Plan Patient is a 64-year-old gentleman who was brought to the hospital for arrest. Reportedly the patient had hemodialysis and was being taken back, when he arrested at transport vehicle and was brought to the hospital. Reportedly EMS was performing CPR prior to arrival to the hospital which was continued in emergency room. Patient is intubated and is being managed in [facility]/ICU. Cardiology is involved for cardiac aspects of care. Patient is known to our practice from before. It is of note that the patient was in the hospital in mid June up to early July for an episode of cardiac arrest/VFib. At that time he was started on amiodarone/mexiletine. It is also of note that the patient was brought back later in July and for some reason the antiarrhythmic drugs were not continued (was not seen by Cardiology at that point). Review of the transfer notes reveals that he has not been taking the above noted antiarrhythmics. It is also of note that the patient did have angiogram in late June which revealed patent stents and no indication for intervention. Patient does have a Medtronic BiV-ICD. He does have baseline history of noncompliance. He also has history of repeated GI bleedings and also DVT. Prior to this arrival, the patient was not on any anticoagulation (was it held because of GI bleeding/pancytopenia?). Extubated. No JVD. Mucosa is pink and wet. No carotid bruit. Lungs: Scattered rhonchi in the lungs is heard. Cardiac: Regular, systolic murmur 3/6 in the apex is heard. The site for ICD implantation looks clean with no erythema/ecchymosis/tenderness. Abdomen is soft. Bowel sound is positive. Extremities reveal 3+ edema bilaterally in lower and upper ext. 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 Echocardiogram of April 08, 2024 had reported four-chamber dilatation, ejection fraction of 20%, [id number] MR/TR and right ventricular systolic pressure of 75 mm Hg Echocardiogram of May 19, 2024 had reported four-chamber dilatation, ejection fraction of 35%, D shaped septum, pulmonary hypertension, mobile interatrial septum, [id number] aortic insufficiency, mild mitral regurgitation, moderate TR and right ventricular systolic pressure of 80 mm Hg Echocardiogram of June 28, 2024 reported ejection fraction of 20%, septal flattening and biatrial enlargement Left heart catheterization of July 06, 2024 revealed no obstructive coronary artery disease. There was patent stents in LAD/RCA. Troponin (high sensitive): 42 - 41 - 50 BNP: 416.54 D-Dimer: 3.80 Chest x-ray revealed: IMPRESSION: 1. Endotracheal tube in place 9.3 cm above the elizabeth. 2. Right internal jugular catheter in place in the superior vena cava 3. Enteric tube at the gastroesophageal junction recommend advancement 3-4 inches. 4. Dual-chamber biventricular pacemaker in place with pulse generator over the left chest, 5. Right lower lobe infiltrate and effusion worse than 07/30/2024 tubing overlying the lower right lung field correlate for possible chest tube placement. Repeat chest x-ray revealed: IMPRESSION: 1. Endotracheal tube has been repositioned now 7.6 cm above the elizabeth. Repeat chest x-ray revealed: IMPRESSION: 1. Endotracheal tube has been repositioned now 7.6 cm above the elizabeth. Repeat chest x-ray revealed: IMPRESSION: Bibasilar atelectasis or pneumonia. Repeat chest xry revealed: IMPRESSION: 1. Bibasilar atelectasis or pneumonia. 2. Pulmonary venous congestion. Repeat chest xry revealed: IMPRESSION: 1. Right pleural effusion. Airspace disease right lower lobe. 2. No pneumothorax. 3. Biventricular pacemaker in place unchanged 4. Hemodialysis catheter from the right in the superior vena cava above the right atrium. Repeat chest xry revealed: MPRESSION: 1. Cardiomegaly with mild congestion. 2. Right pleural effusion. Chest ultrasound revealed: IMPRESSION: 1. LARGE RIGHT PLEURAL EFFUSION. VOLUME NOT CALCULATED. CT of the head revealed: IMPRESSION: 1. No acute intracranial abnormality. CTA of lungs revealed: IMPRESSION: 1. No evidence of pulmonary embolus. 2. Large right pleural effusion. Consolidation of the left lung base may represent infectious process or atelectasis. 3. Diffuse centrilobular emphysema Venous duplex of lower ext revealed: Impression: No right or left femoropopliteal venous thrombosis. Venous duplex of upper ext revealed: IMPRESSION: Right upper extremity: Occlusive thrombophlebitis of the cephalic vein. No evidence of DVT. Moderate subcutaneous edema noted. Left upper extremity: No evidence of DVT or SVT. Telemetry reveals paced rhythm Echocardiogram reported: Left ventricle: Concentric left ventricular hypertrophy was seen. LVEF was around 25%. Septal flattening was seen. Paradoxical septal motion was observed. Right ventricle was dilated with reduced systolic function. Both atria were dilated. Pacing wire were seen right-sided chambers. Aortic valve was not well visualized. There was mild aortic insufficiency. There was no aortic stenosis. There was mild mitral regurgitation. There was mild to moderate tricuspid regurgitation. Pulmonary valve was not well visualized. Right ventricular systolic pressure was assessed at 52 mm Hg. There was no pericardial effusion. ICD interrogation: [employer]tr[employer] BiV-ICD interrogation: Remaining battery: 3.8 years; DDD: 80/130; Pacing impedance: 399 A/361 RV Ohms; Defibrillation independence: RV = 39 Ohms; Repeated shocks for VT/VF Patient is a 64-year-old gentleman who presented with post arrest. It is of note that the patient did have arrest (V-tach VFib) in June 2024. At that point he was started on some antiarrhythmics which unfortunately have not been continued as outpatient. Serial high sensitive troponin has been negative and acute coronary syndrome is not considered for clinical presentation at this point. We do have a recent cardiac catheterization also (June 2024). It is also of note that the patient does have history of repeated DVTs and also pancytopenia/GI bleedings. Acute arrest Rule out PE s/p Defibrillation secondary to V-fib/Vtach (in June 2024) Encephalopathy? Baseline pulmonary hypertension Baseline systolic heart failure Status post BiV-ICD End-stage renal disease, Noncompliant with medication, followups and hemodialysis Pancytopenia History of GI bleeding Cephalic vein thrombosis VT/VF Cardiac suggestion for management: Manage in tele Follow-up electrolytes and kidney function tests and correct abnormalities Amiodarone/mexiletine Eliquis held for bloody stool When stable and after clearance by GI: start ASA: 81 mg daily Cardiac arguelles, is stable and can be followed as outpatient Evaluation and management of pleural effusion as per Pulmonary/primary team DVT prophylaxis Further evaluation and management depends on the above and clinical course A total of 55 minutes was spent reviewing the patient record, examining the patient, making a diagnostic and therapeutic plan, discussing this plan with medical personnel, following up on diagnostic studies and following the patient for clinical stability excluding any and all procedures. At least 50% of this time was spent in direct, [id number] contact. Thank you for allowing me to participate in this patient's care. Further recommendations will depend on patient's clinical course. Please do not hesitate to contact me if you have any questions or concerns. This medical document was created using electronic medical record system with [employer]'s computerized dictation system. Although this document has been carefully reviewed, there may still be some phonetic and typographical errors. These areas are purely typographical due to the imperfection of the software programs, and do not reflect any compromise in the patient's medical care. Dietary Evaluation Review Recommendations by RD: Protein Supplementation Comments: 1) Initiate Pro-Stat @ 30 mL qd 2) Initiate Ovi @ 1 pk bid 3) Initiate Nephro-Eri @ 1 tb qd 4) If patient remains NPO > 7 days, consider EN/TPN to meet at least 75% of estimated daily needs 5) Advance to renal standard diet when medically feasible, pending ARTILLERY OR NAVAL GUNFIRE OBSERVER approval 4) Continue to monitor I&O, labs, and skin integrity Expected Outcomes/Goals: 1) patient to receive nutritional support within 7 days 2) labs and wound to improve 3) diet to advance 4) f/u in 2-3 days Plan discussed with: Patient, Other (primary team/medical lab specialist) SUSHMA WALKER MD Aug 20, 2024 07:19
[2024-08-20 07:29] LABS: INR 1.31 (0.9-1.15); Partial Thromboplastin Time 41.5 SEC (24.5-34.5); Prothrombin Time 13.5 sec (9.3-11.8)
[2024-08-20 07:39] LABS: Platelet Count (auto) 92 10^3/uL (140-450); Red Cell Distribution Width 20.5 % (11.8-14.3)
--- NOTE | 2024-08-20 10:52 | DVHPNRES ---
Progress Note Date Seen: Aug 20, 2024 Resident Creating Document: MEHNAZ MCMAHAN Medical Necessity Reason Pt with a Central, PICC or Fol: Yes The following are medically ne: Central Line, Lynne Catheter Reason for lynne catheter: Strict I&O Subjective Review of Systems Patient is a 64-year-old male with a past medical history as reported below was brought to the hospital in cardiopulmonary arrest. As per the report patient had hemodialysis and was being taken back to the group home facility when he underwent a cardiopulmonary arrest in the vehicle and was brought to the hospital. ROSC was achieved following which the patient was intubated and shifted to ICU level of care. Patient was treated with antiarrhythmic medications, regular hemodialysis, IV antibiotics for suspected pneumonia, with vasopressor support and mechanical ventilation. Ventilation requirements decreased and the patient was extubated on 08/11/2024. Right-sided pleural effusion was noted following which she had a thoracentesis with a 1.5 L of fluid was removed. Patient getting regular hemodialysis on Saturday and Saturday and is followed by freight car cleaner Dr. Wong and technical lead Dr. Booth. Past medical history: End-stage renal disease on hemodialysis, heart failure with reduced ejection fraction, prostate cancer, coronary artery disease s/p PCI, history of VFib and sustained V-tach, multiple DVTs, , H/O GI bleeding, pulmonary hypertension Past surgical history: Right AV fistula, s/p repeated right AV fistula thrombectomy, status post biventricular ICD implantation, multiple cardiac ablations, PCI Social history: Patient came to the hospital from group home facility where he was discharged for physical rehab, denies smoking, alcohol, drug use Review of systems Patient seen and examined at the bedside Patient was alert and oriented x3 and does not appear to be any distress Denies chest pain, palpitations, headache No blood in urine or stool noted Objective vital signs Vital Sign Date Time Temp Pulse Resp B/P (MAP) Pulse Ox O2 Delivery O2 Flow Rate FiO2 08/20/24 09:46 93 Nasal Cannula* 2 28 08/20/24 08:35 97.4 64 16 142/46 (78) 97.4 Total Intake and Output 08/19/24 08/19/24 08/20/24 15:00 23:00 07:00 Intake Total 960 ml 900 ml Output Total 100 ml 50 ml Balance 860 ml 850 ml medications Current Medications Medications Dose Ordered Sig/Colleen Route Start Time Stop Time Status Last Admin Dose Admin Ondansetron HCl 4 mg Q4HP PRN IV 08/08/24 19:00 08/11/24 14:14 4 MG Acetaminophen 650 mg Q6HP PRN PO 08/08/24 19:00 Nitroglycerin 0.4 mg Q5MINP PRN SL 08/08/24 19:00 Pantoprazole Sodium 40 mg DAILY IV 08/10/24 10:00 08/20/24 09:42 40 MG Mexiletine HCl 150 mg Q8HR PO 08/12/24 14:00 08/20/24 05:48 150 MG Amiodarone HCl 200 mg BID PO 08/12/24 22:00 08/20/24 09:42 200 MG Enteral Nutritional Formula 28.8 gm DAILY PO 08/13/24 10:00 08/20/24 09:46 28.8 GM Enteral Nutritional Formula 240 ml DAILY PO 08/13/24 10:00 08/20/24 09:42 240 ML Albuterol 2.5 mg Q6HPRN PRN NEB 08/15/24 17:45 08/20/24 07:43 2.5 MG Ipratropium [place] 0.5 mg Q6HPRN PRN NEB 08/15/24 17:45 08/20/24 07:44 0.5 MG Clonidine HCl 0.1 mg TID PRN PO 08/17/24 22:15 Furosemide 80 mg BIDD IV 08/18/24 18:00 08/19/24 16:50 80 MG Examination Constitutional: Patient was alert and oriented x3 and appears to be in mild respiratory distress Gen - conjunctival pallor present, no icterus, no cyanosis, no clubbing, no LAD, no edema . Skin - Patients skin is warm and dry. HEENT - normocephalic, atraumatic, moist mucous membranes. Neck - full ROM, no LAD, no JVD Pulmonary - decreased basilar breath sounds with inspiratory crackles, no wheezing, no stridor. cardiovascular - variable S1,S2 heard. no murmurs heard. . capillary refill normal <2 secs. GI - soft abdomen, nondistended and no tenderness to palpation. no hepatospleenomegaly. Bowel sounds normoactive Neurological - Bilateral upper extremity strength 4/5, bilateral lower extremity strength 4/5, no facial droop, normal speech, no tremor, no sensory deficiets. Extremities: Right upper extremity AV fistula with positive thrill laboratory and microbiology Laboratory Tests 08/20/24 06:07 Test 08/20/24 06:07 Range/Units Serum Glucose 74 74-106 mg/dL Microbiology Date/Time Source Procedure Growth Status 08/11/24 19:50 Pleural Fluid Gram Stain - Final Complete 08/11/24 19:50 Pleural Fluid Body Fluid Culture - Final Complete 08/09/24 01:32 Nose MRSA Screen - Final Complete 08/08/24 21:20 Sputum Gram Stain - Final Complete 08/08/24 21:20 Sputum Respiratory Culture - Final Complete 08/08/24 18:04 Blood Blood Culture - Final NO GROWTH AFTER 5 DAYS OF INCUBATION. Complete Problem List/Assessment/Plan Problem List/Assessment/Plan Respiratory # acute on chronic hypoxic respiratory failure on mechanical ventilation, extubated # suspected left lower lung pneumonia likely due to Gram+/-bacteria vs atelectasis # pulmonary edema # pleural effusion # diffuse centrilobular emphysema - extubated on 08/11 - s/p right thoracentesis with 1.5 L removed, culture showed no growth - on oxygen at 3 L via nasal cannula - IV antibiotics held - Lasix 80 mg IV b.i.d. Cardiology # cardiopulmonary arrest status post ROSC # ventricular fibrillation/ventricular tachycardia # heart failure with reduced ejection fraction status post biventricular ICD # pulmonary hypertension # history of coronary artery disease status post PCI - echo from 08/11 showed LVEF 25% with concentric LVH, septal flattening, right ventricle dilation with reduced systolic function with a RVSP 52 mmHg - recent left heart catheterization in June 2024 revealed no obstructive CAD, patent stents in LAD/RCA - on amiodarone 200 mg b.i.d., mexiletine 150 mg q.8 hours - on eliquis 2.5mg bid - Lasix 80 mg IV b.i.d. Nephrology # end-stage renal disease on hemodialysis TTS # hypokalemia # hematuria - hemodialysis done yesterday with removal of 1500ml of fluid - Lasix 80 mg IV b.i.d. - erythropoietin as per Nephrology after hemodialysis - Eliquis held Gastrointestinal/Hematology # lower GI bleed # pancytopenia - H&H stable - on Protonix 40 mg IV daily - nutritional supplement Nepro - Eliquis held - no bleeding noted today Midline left upper arm placed on 08/14 Right subclavian tunneled dialysis catheter Lynne catheter inserted on 08/09 PUD prophylaxis: Protonix DVT prophylaxis: was on eliquis, held Patient hemodynamically stable and no signs of bleeding noted in stool or urine. Underwent hemodialysis today which he tolerated well. To be discharged today Goals of care discussed with the patient and his sister ( KINGS ) for over 37 minutes. Code status: Chemical code only no intubation Plan discussed with Dr. Klein Plan discussed with: Patient, Other My Orders My Orders Orders - MEHNAZ MCMAHAN Procedure Category Date Status Time * Tutor CONS 08/19/24 Transmitted Consult Urinalysis LAB 08/20/24 Logged 04:00 Dietary Evaluation Review Recommendations by RD: Protein Supplementation Comments: 1) Initiate Pro-Stat @ 30 mL qd 2) Initiate Ovi @ 1 pk bid 3) Initiate Nephro-Eri @ 1 tb qd 4) If patient remains NPO > 7 days, consider EN/TPN to meet at least 75% of estimated daily needs 5) Advance to renal standard diet when medically feasible, pending [employer] approval 4) Continue to monitor I&O, labs, and skin integrity Expected Outcomes/Goals: 1) patient to receive nutritional support within 7 days 2) labs and wound to improve 3) diet to advance 4) f/u in 2-3 days Date of Service: Aug 20, 2024 Billing Provider: BELTRAN KLEIN MD Common Visit Codes: 52525-[id number] INP/OBS CARE(HIGH) Secondary Visit Codes: 63567-BKPCQARM CARE PLAN 30 MINUTES MEHNAZ MCMAHAN Aug 20, 2024 10:52 BELTRAN KLEIN MD Aug 22, 2024 20:34
[2024-08-20] MEDS ORDERED: SODIUM CHL 0.9% 1000 ML BAG XX ONE (11:00)
[2024-08-20] MEDS: SODIUM CHL 0.9% 1000 ML BAG XX ONE (13:32)
--- NOTE | 2024-08-20 15:29 | DVHPN2 ---
Progress Note - Dictate Date Seen: Aug 20, 2024 Medical Necessity Reason Pt with a Central, PICC or Fol: Yes The following are medically ne: Central Line, Lynne Catheter Reason for lynne catheter: Strict I&O Subjective Patient denies any acute events, he wants to go home. vital signs Vital Sign Date Time Temp Pulse Resp B/P (MAP) Pulse Ox O2 Delivery O2 Flow Rate FiO2 08/20/24 13:00 98.4 63 16 127/63 (84) 89 98.4 08/20/24 09:46 Nasal Cannula* 2 28 Total Intake and Output 08/19/24 08/19/24 08/20/24 15:00 23:00 07:00 Intake Total 960 ml 900 ml Output Total 100 ml 50 ml Balance 860 ml 850 ml medications Current Medications Medications Dose Ordered Sig/Colleen Route Start Time Stop Time Status Last Admin Dose Admin Ondansetron HCl 4 mg Q4HP PRN IV 08/08/24 19:00 08/11/24 14:14 4 MG Acetaminophen 650 mg Q6HP PRN PO 08/08/24 19:00 Nitroglycerin 0.4 mg Q5MINP PRN SL 08/08/24 19:00 Pantoprazole Sodium 40 mg DAILY IV 08/10/24 10:00 08/20/24 09:42 40 MG Mexiletine HCl 150 mg Q8HR PO 08/12/24 14:00 08/20/24 05:48 150 MG Amiodarone HCl 200 mg BID PO 08/12/24 22:00 08/20/24 09:42 200 MG Enteral Nutritional Formula 28.8 gm DAILY PO 08/13/24 10:00 08/20/24 09:46 28.8 GM Enteral Nutritional Formula 240 ml DAILY PO 08/13/24 10:00 08/20/24 09:42 240 ML Albuterol 2.5 mg Q6HPRN PRN NEB 08/15/24 17:45 08/20/24 07:43 2.5 MG Ipratropium [place] 0.5 mg Q6HPRN PRN NEB 08/15/24 17:45 08/20/24 07:44 0.5 MG Clonidine HCl 0.1 mg TID PRN PO 08/17/24 22:15 Furosemide 80 mg BIDD IV 08/18/24 18:00 08/19/24 16:50 80 MG objective HEENT: No evidence of JVD, no oral ulcers. Pulmonary: Diminished lung sounds on auscultation bilaterally Cardiovascular S1-S2, no S3 or S4 Abdomen: Bowel sounds positive, soft no rebound tenderness Skin: No rash Neurological: Alert, oriented, no focal weakness Access: Right tunneled IJ dialysis catheter laboratory and microbiology Laboratory Tests 08/20/24 06:07 Test 08/20/24 06:07 Range/Units Serum Glucose 74 74-106 mg/dL Assessment/Plan Assessment: ESRD on HD TTS s/p cardiac arrest with ROSC Acute hypoxic respiratory failure, extubated on supplemental oxygen Bilateral pleural effusions, small Sepsis secondary to pneumonia Hyponatremia Lactic acidosis Hypoalbuminemia HTN Atrial fibrillation CAD s/p stent s/p pacemaker chronic diastolic CHF Pancytopenia Plan: Hemodialysis was completed today. Continue TTS Continue IV antibiotics, renally dose On Eliquis, amiodarone. Lasix to IV 80 mg twice a day meanwhile inpatient [facility] post HD as needed. goal Hb: 10-11 g/dl Okay from Nephrology standpoint to be discharged. Thank you very much for allowing us to participate in the care of this patient Dietary Evaluation Review Recommendations by RD: Protein Supplementation Comments: 1) Initiate Pro-Stat @ 30 mL qd 2) Initiate Ovi @ 1 pk bid 3) Initiate Nephro-Eri @ 1 tb qd 4) If patient remains NPO > 7 days, consider EN/TPN to meet at least 75% of estimated daily needs 5) Advance to renal standard diet when medically feasible, pending [employer] approval 4) Continue to monitor I&O, labs, and skin integrity Expected Outcomes/Goals: 1) patient to receive nutritional support within 7 days 2) labs and wound to improve 3) diet to advance 4) f/u in 2-3 days Plan discussed with: Patient RONEL SHELTON MD Aug 20, 2024 15:29
--- NOTE | 2024-08-20 20:04 | DVHDSRES ---
Discharge Summary Date of Admission Resident Creating Document: MEHNAZ MCMAHAN RESIDENT Aug 08, 2024 at 18:57 Date of Discharge: Aug 20, 2024 Admitting Diagnosis Cardiopulmonary arrest End-stage renal disease, dialysis dependent Anemia of chronic disease Questionable pneumonia Wounds: minor healing sacral ulcer Labs/Diagnostic Data: Laboratory Results Test 08/20/24 06:07 08/19/24 08:01 08/18/24 06:25 08/16/24 10:20 White Blood Count 3.6 10^3/uL (4.4-10.8) Red Blood Count 2.42 10^6/uL (4.5-5.90) Hemoglobin 8.1 g/dL (13.5-17.5) Hematocrit 24.4 % (41.0-53.0) Mean Corpuscular Volume 101.0 fL (80.0-100.0) Mean Corpuscular Hemoglobin 33.4 pg (28.0-32.0) Mean Corpuscular Hemoglobin Concent 33.1 g/dL (32.0-36.0) Red Cell Distribution Width 20.5 % (11.8-14.3) Platelet Count 92 10^3/uL (140-450) Mean Platelet Volume 7.1 fL (6.9-10.8) Neutrophils (%) (Auto) 62.7 % (37.0-80.0) Lymphocytes (%) (Auto) 8.2 % (10.0-50.0) Monocytes (%) (Auto) 12.8 % (0.0-12.0) Eosinophils (%) (Auto) 13.5 % (0.0-7.0) Basophils (%) (Auto) 2.8 % (0.0-2.0) Neutrophils # (Auto) 2.2 10 ^3/uL (1.6-8.6) Lymphocytes # (Auto) 0.3 10 ^3/uL (0.4-5.4) Monocytes # (Auto) 0.5 10 ^3/uL (0-1.3) Eosinophils # (Auto) 0.5 10 ^3/uL (0-0.8) Basophils # (Auto) 0.1 10 ^3/uL (0-0.2) Nucleated Red Blood Cells 0.3 % Prothrombin Time 13.5 sec (9.3-11.8) Prothrombin Time INR 1.31 (0.9-1.15) Activated Partial Thromboplast Time 41.5 SEC (24.5-34.5) Sodium Level 136 mmol/L (136-145) Potassium Level 3.5 mmol/L (3.5-5.1) Chloride Level 98 mmol/L (98-107) Carbon Dioxide Level 30 mmol/L (20-31) Anion Gap 8 (5-15) Blood Urea Nitrogen 29 mg/dL (9-23) Creatinine 4.85 mg/dL (0.700-1.30) Glomerular Filtration Rate Calc 13 mL/min (>90) BUN/Creatinine Ratio 6.0 (10.0-20.0) Serum Glucose 74 mg/dL (74-106) Calcium Level 9.3 mg/dL (8.7-10.4) Differential Total Cells Counted 100.0 (100) Neutrophils % (Manual) 67 (37.0-80.0) Band Neutrophils % (Manual) 0 Lymphocytes % (Manual) 5 (10.0-50.0) Monocytes % (Manual) 10 (0-12) Eosinophils % (Manual) 18 (0-7) Basophils % (Manual) 0 (0.0-2.0) Metamyelocytes % (manual) 0 Myelocytes % (Manual) 0 Promyelocytes % (Manual) 0 Blast Cells % (Manual) 0 Reactive Lymphocytes 0 Platelet Estimate Decreased Anisocytosis (manual) Slight Macrocytosis Slight Phosphorus Level 4.2 mg/dL (2.4-5.1) Magnesium Level 2.2 mg/dL (1.6-2.6) Iron Level 64 ug/dL (65-175) Total Iron Binding Capacity 138 ug/dL (250-425) Percent Iron Saturation 46.4 % (20-55) Ferritin 825.6 ng/mL (22-322) Total Bilirubin 0.4 mg/dL (0.2-1.0) Aspartate Amino Transferase (AST) < 8 U/L (13-40) Alanine Aminotransferase (ALT) < 9 U/L (7-40) Alkaline Phosphatase 97 U/L (46-116) Total Protein 5.5 g/dL (5.7-8.2) Albumin 3.1 g/dL (3.2-4.8) Ovalocytes Few Test 08/13/24 13:48 08/13/24 08:07 08/13/24 04:34 08/12/24 06:35 Blood Gas Specimen Type Arterial Blood Gas Sample Site Left radial Blood Gas Patient Temperature 37.0 Arterial Blood Date Drawn [id number] Arterial Blood pH 7.353 (7.350-7.450) Arterial Blood Partial Pressure CO2 52.5 mmHg (35.0-48.0) Arterial Blood Partial Pressure O2 86.8 mmHg (83.0-108.0) Arterial Blood HCO3 28.5 mmol/L (21.0-28.0) Arterial Blood Oxygen Saturation 95.3 % (94.0-98.0) Arterial Blood Base Excess 2.5 mmol/L (-2.0-3.0) Arterial Blood Oxyhemoglobin 94.2 % (94.0-98.0) Arterial Blood Carboxyhemoglobin 0.6 % (0.5-1.5) Arterial Blood Methemoglobin 0.6 % (0.0-1.5) [place]ilo Test Yes Blood Gas Total Hemoglobin 8.30 g/dL (13.5-17.5) Blood Gas Modality Mask - bipap Blood Gas Spontaneous Rate 15 FiO2 % 35.0 Blood Gas Inspiratory Pressure 15.0 Blood Gas IPAP 5 Blood Gas Critical Value Read Back Yes Blood Gas Notified Whom raheem Mari Blood Gas Notified Time [id number] Blood Gas Notified By Electrical Mechanic gabby castillo Hepatitis B Surface Antigen Negative (Negative) Blood Gas Liter Flow 5.00 Test 08/11/24 19:50 08/11/24 13:50 08/11/24 11:05 08/10/24 13:31 Body Fluid Source Pleural fluid Body Fluid pH 8.0 Body Fluid WBC (Manual) 249 CUMM (0-200) Body Fluid RBC (Manual) 104 CUMM (0-2000) Body Fluid Mononuclear Cells 90 % Body Fluid Polymorphonuclear Cells 10 % (0-25) Body Fluid Glucose 120 mg/dL (.) Body Fluid Total Protein 2.6 g/dL (.) Body Fluid Lactate Dehydrogenase 108 IU/L (.) Blood Gas Pressure Support 8 Blood Gas PEEP or CPAP 5.0 Blood Gas Set Respiration Rate 16.0 Blood Gas Tidal Volume 500.0 Influenza Type A Antigen Negative (Negative) Influenza Type B Antigen Negative (Negative) SARS-CoV-2 Antigen (Rapid) Negative (NEGATIVE) Test 08/10/24 10:37 08/10/24 04:58 08/09/24 05:09 08/08/24 20:56 D-Dimer, Quantitative 3.80 mg/L FEU (0.0-0.49) B-Type Natriuretic Peptide 416.54 pg/mL (0-100) Stomatocytes Moderate [place] Cells Few Lactic Acid Level 3.4 mmol/L (0.4-2.0) Troponin I High Sensitivity 50 ng/L (</=54) Test 08/08/24 18:09 Urine Color Light-yellow (Yellow) Urine Clarity Clear (Clear) Urine pH 7.5 (5.0-9.0) Urine Specific [place] 1.011 (1.001-1.035) Urine Protein 1+ (Negative) Urine Ketones Negative (Negative) Urine Blood Negative /uL (Negative) Urine Nitrite Negative (Negative) Urine Bilirubin Negative (Negative) Urine Urobilinogen Normal mg/dL (Negative) Urine Leukocyte Esterase Negative /uL (Negative) Urine RBC 1 /hpf (0 - 3) Urine Microscopic WBC 1 /HPF (0-3) Urine Squamous Epithelial Cells Few /hpf (<5) Urine Bacteria None seen /hpf (None Seen) Urine Glucose 3+ mg/dL (Normal) Other Laboratory Tests 08/20/24 06:07 Brief Hx & Hospital Course: Patient is a 64-year-old male with a past medical history as reported below was brought to the hospital in cardiopulmonary arrest. As per the report patient had hemodialysis and was being taken back to the halfway facility when he underwent a cardiopulmonary arrest in the vehicle and was brought to the hospital. ROSC was achieved following which the patient was intubated and shifted to ICU level of care. Patient was treated with antiarrhythmic medications, regular hemodialysis, IV antibiotics for suspected pneumonia, with vasopressor support and mechanical ventilation. Ventilation requirements decreased and the patient was extubated on 08/11/2024. Right-sided pleural effusion was noted following which she had a thoracentesis with a 1.5 L of fluid was removed. Patient getting regular hemodialysis on Saturday and Saturday and is followed by dietary director Dr. Wong and environmental research scientist Dr. Walker. As per recommendations patient was put on amiodarone and mexilitine anti- arythmic drugs and he remained in sinus rhythm. Patient was on eliquis d/t left subclavian vein DVT but was noted to have blood in stool, eliquis was stopped. Patient also has a history of CAD s/p PCI and environmental research scientist recommended to continue aspirin when no bleeding in the stools is noted. H&H were monitored which remained stable and patient was discharged in stable condition to SNF. Dishcarge medications: amiodarone, mexilitine, aspirin, famotidine time spent in discharge planning was 41 mins Consults/Reason for consult Nephrology consult for ESRD on dialysis Cardiology consult Operations or Procedures Procedure - [employer] BiV-ICD interrogation: Remaining battery: 3.8 years DDD: 80/130 Pacing impedance: 399 A/361 RV Ohms Defibrillation independence: RV = 39 Ohms Repeated shocks for VT/VF SUSHMA WALKER MD Aug 11, 2024 07:05 Procedure - Ultrasound-guided RIGHT thoracentesis procedure note: Physician: Dr Radha Leong Building Cleaning Supervisor: Franklyn GRULLON Time out time: 1929 Patient medications and allergies reviewed. The risks and benefits of the procedure and the sedation options and risk were discussed with the patient's healthcare proxy. All questions were answered and informed consent was obtained. Patient identification and proposed procedure were verified prior to the procedure by the physician, and a nurse in the patient's room. The heart rate, respiratory rate, oxygen saturations, blood pressure, adequacy of pulmonary ventilation, and response to care were monitored throughout the procedure. The physical status of the patient was reassessed after the procedure. Date: 08/11/2024 Consent: Consent was obtained from patient prior to procedure. Indication, risks, and benefits were explained at length. Procedure summary: A time-out was performed and a chest x-ray was reviewed prior to procedure. The appropriate site was confirmed and marked. My hands were washed immediately prior to the procedure, I wore a surgical cap, mask with protective eyewear, sterile gown and sterile gloves throughout the procedure. The patient was prepped and draped in a sterile manner using chlorhexidine scrub after the appropriate level was percussed and confirmed by ultrasound. 1% lidocaine was used to anesthetize the skin, subcutaneous tissue, superior aspect of the rib periosteum and parietal pleura. A finder needle was then introduced over the superior aspect of the rib to locate the pleural fluid; YVETTE fluid was aspirated. Thoracentesis needle was then introduced through the skin incision into the pleural space using negative aspiration pressure. The thoracentesis catheter was then threaded without difficulty. 1450 mL's of YVETTE colored fluid were removed without difficulty. The catheter was then removed. No immediate complications were noted during the procedure. A post-procedure chest x-ray is pending at the time of this note. The pleural fluid will be sent for cultures and cytology. Estimated blood loss: less than 5 mL's. CPT: 98511 DEVAUGHN LEONG MD Aug 11, 2024 19:59 Condition at Discharge: Fair Final Diagnosis/Problems List # acute on chronic hypoxic respiratory failure on mechanical ventilation, extubated # suspected left lower lung pneumonia likely due to Gram+/-bacteria vs atelectasis # pulmonary edema # pleural effusion # diffuse centrilobular emphysema # cardiopulmonary arrest status post ROSC # ventricular fibrillation/ventricular tachycardia # heart failure with reduced ejection fraction status post biventricular ICD # pulmonary hypertension # history of coronary artery disease status post PCI # end-stage renal disease on hemodialysis TTS # hypokalemia # hematuria # lower GI bleed # pancytopenia Discharge [facility]position: [facility] Discharge Instruct/Medications Diet: Renal Activity: No Restrictions, As Tolerated Follow Up/Referral: Follow up with the PCP in one week Medications: as per Transfer papers Discharge Statement: "Patient was advised to return to the ER or call 911 if any headaches, dizziness, shortness of breath, chest pain, abdominal pain, bleeding, fevers, or worsening of medical condition. Patient was counseled about treatment plan, medications, possible side effects, patientverbalized understanding. All questions were answered to the best of my ability. This discharge took greater then 30 minutes in planning, reviewing documentation, counseling the patient, and discussing with other team members." ASSESSMENT ASSESSMENT Assessment # acute on chronic hypoxic respiratory failure on mechanical ventilation, extubated # suspected left lower lung pneumonia likely due to Gram+/-bacteria vs atelectasis # pulmonary edema # pleural effusion # diffuse centrilobular emphysema # cardiopulmonary arrest status post ROSC # ventricular fibrillation/ventricular tachycardia # heart failure with reduced ejection fraction status post biventricular ICD # pulmonary hypertension # history of coronary artery disease status post PCI # end-stage renal disease on hemodialysis TTS # hypokalemia # hematuria # lower GI bleed # pancytopenia Date of Service: Aug 20, 2024 Billing Provider: BELTRAN KLEIN MD Common Visit Codes: 01638-ZHG/OBS DISCH DAY >30min MEHNAZ MCMAHAN RESIDENT Aug 20, 2024 20:04 BELTRAN KLEIN MD Aug 22, 2024 20:35
[2024-08-20] MEDS ORDERED: EPOETIN ALFA-EPBX 10,000 UNIT/1ML VIAL SC ONE (21:00)
== END 2024-08-20 19:59 | DRG 208 ==
LOC: ER 17:07 → OVERFLOW 18:57 → ICU CENTRL 19:03 → DOU IN ICU 08-13 06:25 → TELE-EAST 08-15 02:23
PROVIDERS: ADMIT Internal Medicine; ATTEND Internal Medicine
PROC: 06HY33Z Insertion of Infusion Device into Lower Vein, Percutaneous Approach (ICD-10-PCS; 2024-08-08)
PROC: 0BH17EZ Insertion of Endotracheal Airway into Trachea, Via Natural or Artificial Opening (ICD-10-PCS; 2024-08-08)
PROC: 5A1945Z Respiratory Ventilation, 24-96 Consecutive Hours (ICD-10-PCS; 2024-08-08)
PROC: 5A12012 Performance of Cardiac Output, Single, Manual (ICD-10-PCS; 2024-08-08)
PROC: 4B02XTZ Measurement of Cardiac Defibrillator, External Approach (ICD-10-PCS; 2024-08-11)
PROC: 0W993ZX Drainage of Right Pleural Cavity, Percutaneous Approach, Diagnostic (ICD-10-PCS; 2024-08-11)
PROC: 5A1D70Z Performance of Urinary Filtration, Intermittent, Less than 6 Hours Per Day (ICD-10-PCS; 2024-08-11)
PROC: 5A1D70Z Performance of Urinary Filtration, Intermittent, Less than 6 Hours Per Day (ICD-10-PCS; 2024-08-13)
PROC: 5A09357 Assistance with Respiratory Ventilation, Less than 24 Consecutive Hours, Continuous Positive Airway Pressure (ICD-10-PCS; 2024-08-13)
PROC: 05HA33Z Insertion of Infusion Device into Left Brachial Vein, Percutaneous Approach (ICD-10-PCS; principal; 2024-08-14)
PROC: B54NZZA Ultrasonography of Left Upper Extremity Veins, Guidance (ICD-10-PCS; 2024-08-14)
PROC: 5A1D70Z Performance of Urinary Filtration, Intermittent, Less than 6 Hours Per Day (ICD-10-PCS; 2024-08-15)
PROC: 5A1D70Z Performance of Urinary Filtration, Intermittent, Less than 6 Hours Per Day (ICD-10-PCS; 2024-08-18)
PROC: 5A1D70Z Performance of Urinary Filtration, Intermittent, Less than 6 Hours Per Day (ICD-10-PCS; 2024-08-20)
DX: J96.21 Acute and chronic respiratory failure with hypoxia (principal); I46.9 Cardiac arrest, cause unspecified; J15.69 Pneumonia due to other Gram-negative bacteria; G93.41 Metabolic encephalopathy; I50.23 Acute on chronic systolic (congestive) heart failure; N18.6 End stage renal disease; R65.21 Severe sepsis with septic shock; J15.9 Unspecified bacterial pneumonia; I49.01 Ventricular fibrillation; E87.20 Acidosis, unspecified; D61.818 Other pancytopenia; E87.1 Hypo-osmolality and hyponatremia; Z68.1 Body mass index [BMI] 19.9 or less, adult; E46 Unspecified protein-calorie malnutrition; R57.9 Shock, unspecified; K92.2 Gastrointestinal hemorrhage, unspecified; I82.B12 Acute embolism and thrombosis of left subclavian vein; I13.2 Hypertensive heart and chronic kidney disease with heart failure and with stage 5 chronic kidney disease, or end stage renal disease; Z99.2 Dependence on renal dialysis; D63.1 Anemia in chronic kidney disease; E78.5 Hyperlipidemia, unspecified; I25.10 Atherosclerotic heart disease of native coronary artery without angina pectoris; Z91.199 Patient's noncompliance with other medical treatment and regimen due to unspecified reason; I27.20 Pulmonary hypertension, unspecified; E88.09 Other disorders of plasma-protein metabolism, not elsewhere classified; I48.0 Paroxysmal atrial fibrillation; S20.213A Contusion of bilateral front wall of thorax, initial encounter; S40.022A Contusion of left upper arm, initial encounter; S40.021A Contusion of right upper arm, initial encounter; I49.5 Sick sinus syndrome; E87.6 Hypokalemia; I80.8 Phlebitis and thrombophlebitis of other sites; Z95.5 Presence of coronary angioplasty implant and graft; Z95.810 Presence of automatic (implantable) cardiac defibrillator; Z79.899 Other long term (current) drug therapy; Z79.01 Long term (current) use of anticoagulants; I25.2 Old myocardial infarction; Z82.49 Family history of ischemic heart disease and other diseases of the circulatory system; Z85.46 Personal history of malignant neoplasm of prostate; Z91.148 Patient's other noncompliance with medication regimen for other reason; Z86.718 Personal history of other venous thrombosis and embolism; X58.XXXA Exposure to other specified factors, initial encounter; Y93.89 Activity, other specified; Y92.89 Other specified places as the place of occurrence of the external cause; Y99.8 Other external cause status
CPT/HCPCS: 31500; 32555; 36415; 36556; 36600; 70450; 71045; 71275; 76604; 80048; 80053; 81001; 82728; 82805; 83540; 83550; 83605; 83735; 83880; 83986; 84100; 84132; 84484; 85007; 85014; 85018; 85025; 85027; 85379; 85610; 85730; 86850; 86900; 86901; 86920; 87040; 87070; 87081; 87205; 87340; 87426; 87804; 89051; 90935; 92610; 93005; 93306; 93970; 94002; 94003; 94640; 94660; 96365; 97110; 97163; 97530; G0378; J0171; J1642; J2405; J2470; J2543; J2704; P9047